=== PATIENT | male | born 1960 | race Caucasian/White ===

== ENCOUNTER 2022-01-23 19:32 | Outpatient (CLI) | payer BC, SELFPAY ==
--- OUTSIDE RECORDS SUMMARY | 2022-01-23 19:35 | XMS_ITS | Encounter Summary ---
:1960 Author Organization [facility] Address [address] [place] [address] Care Team Providers Name Role Phone Elsewhere, Pcp Primary Care Provider Unavailable Encounter Details Date Type Department Care Team Description 12/31/2021 Clinical Communication Department of [place], Otorhinolaryngology in [address] [phone] Social History Tobacco Use Types Packs/Day Years Used Date Smoking Tobacco: Former Smokeless Tobacco: Never Alcohol Use Standard Drinks/Week Comments Yes 0 (1 standard drink = 0.6 oz pure alcoho l) Occasional Alcohol Habits Answer Date Recorded How often do you have a drink containing alcohol? Patient re fused 12/20/2021 How many drinks containing alcohol do you have on a 1 or 2 06/24/2021 typical day when you are drinking? How often do you have six or more drinks on one Never 06/24/2021 occasion? Comment: Occasional 10/03/2021 Social Isolation Answer Date Recorded In a typical week, how many times do you More than three shay es a week 12/20/2021 talk on the phone with family, friends, or neighbors? How often do you get together with friends Twice a week 12/20/2021 or relatives? How often do you attend religious or Patient refused 2021 taoism services? Do you belong to any clubs or No 12/20/2021 organizations such as religious groups, unions, fraternal or athletic groups, or school groups? How often do you attend meetings of the Patient refused 12/20/2021 clubs or organizations you belong to? Are you now , , , 12/20/2021 , never or living with a partner? Physical Activity Answer Date Recorded On average, how many days per week do you engage in moderate to 4 days 12/20/2021 strenuous exercise (like walking fast, running, jogging, dancing, swimming, biking, or other activities that cause a light or heavy sweat)? On average, how many minutes do you engage in exercise at th is 40 min 12/20/2021 level? Stress Answer Date Recorded Do you feel stress - tense, restless, nervous, or To some ex tent 12/20/2021 anxious, or unable to sleep at night because your mind is troubled all the time - these days? Intimate Partner Violence Answer Date Recorded Within the last year, have you been afraid of your partner o r No 12/20/2021 ex-partner? Within the last year, have you been humiliated or emotionall y No 12/20/2021 abused in other ways by your partner or ex-partner? Within the last year, have you been kicked, hit, slapped, or No 12/20/2021 otherwise physically hurt by your partner or ex-partner? Within the last year, have you been raped or forced to have any No 12/20/2021 kind of sexual activity by your partner or ex-partner? Food Insecurity Answer Date Recorded Within the past 12 months, you worried that your food would Never true 12/20/2021 run out before you got money to buy more. Within the past 12 months, the food you bought just didn't N ever true 12/20/2021 last and you didn't have money to get more. Transportation Needs Answer Date Recorded In the past 12 months, has lack of transportation kept you f rom No 12/20/2021 medical appointments or from getting medications? In the past 12 months, has lack of transportation kept you f rom No 12/20/2021 meetings, work, or getting things needed for daily living? Housing Stability Answer Date Recorded In the last 12 months, was there a time when you were not ab le No 12/20/2021 to pay the mortgage or rent on time? In the last 12 months, how many places have you lived? 1 12/20/2021 In the last 12 months, was there a time when you did not hav e a No 12/20/[address] to sleep or slept in a detention (including now)? Education Answer Date Recorded What is the highest level of school you have completed or 12 th grade 04/11/2021 the highest degree you have received? 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 Whittaker's ear they are not able to make the custom rechargable aid in the ITC format. They can do either half shell or full shell. I calledMr. Whittaker to see what he would prefer. He indicated rather than going to a battery aid, he would like to stay with the rechargeable and was fine with doing the half shell size. I called [employer] back and informed them of Mr. Whittaker's decision. documented in this encounter Plan of Treatment Upcoming Encounters Date Type Specialty Care Team Description 01/24/2022 Diagnostic Otorhinolaryngology Lara Snell Au.D. [address] [place], [place] [phone] 01/29/2022 Office Visit Orthopedic Surgery Laurie Dumont APRN , C.N.P., D.N.P. [address] [place], [place] [phone] (Wo rk) documented as of this encounter Visit Diagnoses Diagnosis Presence Of External Hearing Aid - Prima ry documented in this encounter Care Teams State [employer] Agent Team Member Relationship Specialty Start Date End Date Elsewhere, Pcp PCP - General 06/07/19 documented as of this encounter
--- OUTSIDE RECORDS SUMMARY | 2022-01-23 19:35 | XMS_ITS | Encounter Summary ---
:1960 Author Organization [facility] Address [address] [place] [address] Care Team Providers Name Role Phone Elsewhere, Pcp Primary Care Provider Unavailable Reason for Visit Physical Therapy (Routine) - Authorized Specialty Diagnoses / Procedures Referred By Contact Refer red To Contact Diagnoses Primary Osteoarthritis Knee Left Dk Mijares M.D. [facility] Procedures PT Ongoing treatment [address] [place] [address] Referral ID Status Reason Start Date Expiration Date Visits V isits Requested Authorized [id number] Authorized 08/10/2021 05/18/2022 40 40 Encounter Details Date Type Department Care Team Description 10/09/2021 Clinical Support Department of Dk Mijares M.D. [address] [place] [phone] Primary Rehabilitation Maria Luisa Chaparro, P.T. Osteoarthritis Knee Services [place] [address] [place] [phone] Social History Tobacco Use Types Packs/Day Years [...] or relatives? How often do you attend restorationism or Patient refused 2021 nondenominational services? Do you belong to any clubs or No 12/20/2021 organizations such as restorationism groups, unions, [employer] or athletic groups, or school groups? How [...] place to sleep or slept in a senior living (including now)? Education Answer Date Recorded What is the highest level of school you have completed or 12 th grade 04/11/2021 the highest degree you have received? 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 - 10/09/2021 12:45 PM CDT Physical Therapy Outpatient Treatment Note SUBJECTIVE Patient's Name: Hussein Whittaker Referring Provider: Dk Mijares M.D. Visit Diagnosis: 1. Primary Osteoarthritis Knee Left Payor: [employer]URANCE / Plan: [employer]URANCE / Product Type: Indemnity / PT Next Certification Date: 08/08/2021 [facility] Visit Count: 3 Patient comments: Pt reports his knee is sore after last session, but ice continues to feel good andhe continues with use of the CPM machine. His daughter assists with ROM exercises at home. Contact monitoring: PPE used during therapy: Therapist was wearing the following PPE throughout entire session: surgicalmask and eye protection Patient was wearing a mask during therapy session: yes OBJECTIVE Pain: L knee pain, does not provide numeric value Ambulation: Pt ambulates into therapy dept with use of 4-point cane. He is able to ambulate throughout therapy dept without AD independently but does demonstrate increased antalgic gait with decreased L knee flexion and stance time. ? Range of Motion:?Left ?Right Knee Flexion/Extension 0-140 PROM:??4-117 deg PROM:??NT *Knee flexion measured in supine with PT assist and significant overpressure. TREATMENT Treatment today consisted of: Manual Therapy: -patellar mobs, grade III for mobility in all 4 directions, most focus on superior-inferior directions -STM to L quad in supine for muscle relaxation -Quad MET's off EOB with 5 sec holds/rests, 2x5 repetitions Therapeutic Exercise: -sci-fit bike, L1 x6 minutes, up to seat 13 for knee mobility -stationary bike, seat 8, x5 minutes, able to make full revolutions both directions, unable to make forward revolution at seat 7 -standing knee flexion stretch on second step, x20 reptitions -DL press, 30# with 2 sec holds at end-range flexion, deep seat position for end-range, 3x10 repetitions -supine heel slides with PT assist and overpressure, 2x10 repetitions Home Exercise Program/Education:Continue TKA pathway and CPM use. Patient reports good HEP compliance. Assessment Clinical Impression: Pt tolerated session well but is sore in knee with end- range overpressure. He was able to get to 117 deg of knee flexion with significant overpressure but this was painful. He has quad tightness and encouraged pt to trial heat on quad only and to avoid heat on knee joint and to trial rolling pin on quad for muscle relaxation. Also encouraged pt to continue with CPM and knee ROM but to allow for rest in terms of end-range motion to help minimize increase in knee swelling and irritation. Pt will continue to benefit from PT services in order for improved functional mobility. Rehab Potential: Good Comorbid Conditions: Arthritis Personal Factors: Needs assistive device Equipment Recommended - PT: Single-point cane Functional Goals and Timeframes: PT Goal #1: Patient will demonstrate knee range of motion 0-120 degrees left lower extremity. PT Goal #1 Date: 12/04/2021 PT Goal #1 Status: Progressing PT Goal #2: Pt will report a score of 70/100 on the FOTO outcome measure in order to demonstrate improved functional mobility. PT Goal #2 Date: 12/04/2021 PT Goal #2 Status: Progressing PT Goal #3: Patient will ambulate safely independently without the use an assistive device with a nonantalgic gait pattern. PT Goal #3 Date: 12/04/2021 PT Goal #3 Status: Progressing PT Goal #4: Pt will demonstrate independence and compliance with HEP in order for progression of functional strength and mobility. PT Goal #4 Date: 12/04/2021 PT Goal #4 Status: Progressing Plan Physical Therapy Attestation Statement: Patient agrees with the plan of care and goals. Plan: Continue with current plan Number of Outpatient PT Visits: 10 PT Outpatient Duration (days): 60 days PT Frequency: 5 times per week Plan for next session: progress knee ROM, strength, quad flexibility Treatment/Interventions: Therapeutic exercise, Therapeutic functional activity, Gait training, Neuromuscular re-education, Manual therapy Time Spent with Patient Therapeutic Interventions Manual Therapy (min): 8 min Therapeutic Exercise (min): 30 min Time Tracking Total Timed Units (min): 38 min Total Treatment Time (min): 38 min documented in this encounter Plan of Treatment Upcoming Encounters Date Type Specialty Care Team Description 01/24/2022 Diagnostic Otorhinolaryngology Lara Snell Au.D. [address] [place], [place] [phone] 01/29/2022 Office Visit Orthopedic Surgery Laurie Dumont APRN , C.N.P., D.N.P. [address] [place], [place] [phone] (Wo rk) documented as of this encounter Visit Diagnoses Diagnosis Primary Osteoarthritis Knee Left documented in this encounter Care Teams Assistant Accounting Manager Relationship Specialty Start Date End Date Elsewhere, Pcp PCP - General 06/07/19 documented as of this encounter
--- OUTSIDE RECORDS SUMMARY | 2022-01-23 19:35 | XMS_ITS | Encounter Summary ---
:1960 Author Organization [facility] Address [address] [place] [address] Care Team Providers Name Role Phone Elsewhere, Pcp Primary Care Provider Unavailable Reason for Visit Physical Therapy (Routine) - Authorized Specialty Diagnoses / Procedures Referred By Contact Refer red To Contact Diagnoses Primary Osteoarthritis Knee Left Dk Mijares M.D. [facility] Procedures PT Ongoing treatment [address] [place] [phone] Referral ID Status Reason Start Date Expiration Date Visits V isits Requested Authorized [id number] Authorized 08/10/2021 05/18/2022 40 40 Encounter Details Date Type Department Care Team Description 10/11/2021 Clinical Support Department of Dk Mijares M.D. [address] [place] [phone] Primary Rehabilitation Maria Luisa Chaparro, P.T. Osteoarthritis Knee Services [place] [address] [place] [phone] Social History Tobacco Use Types Packs/Day Years [...] or relatives? How often do you attend presybeterian or Patient refused 2021 mormonism services? Do you belong to any clubs or No 12/20/2021 organizations such as presybeterian groups, unions, fraAuramist or athletic groups, or school groups? How [...] place to sleep or slept in a long term (including now)? Education Answer Date Recorded What is the highest level of school you have completed or 12 th grade 04/11/2021 the highest degree you have received? 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 - 10/11/2021 12:30 PM CDT Physical Therapy Outpatient Treatment Note SUBJECTIVE Patient's Name: Hussein Whittaker Referring Provider: Dk Mijares M.D. Visit Diagnosis: 1. Primary Osteoarthritis Knee Left Payor: [employer]URANCE / Plan: [employer]URANCE / Product Type: Indemnity / PT Next Certification Date: 08/08/2021 [facility] Visit Count: 5 Patient comments: Pt reports his knee is feeling better today. He continues to use the CPM machine about 5 hours per day and is maxing out the range. He sleeps with ice on his knee and wakes up feelingminimal knee pain. Contact monitoring: PPE used during therapy: Therapist was wearing the following PPE throughout entire session: surgicalmask and eye protection Patient was wearing a mask during therapy session: yes OBJECTIVE Pain: L knee pain at end-range, does not provide numeric value Range of Motion:?Left ?Right Knee Flexion/Extension 0-140 PROM:??4-118??deg PROM:??NT *Knee flexion measured in supine with PT assist??and??overpressure. TREATMENT Treatment today consisted of: Manual Therapy: -STM to L quad with intermittent TPR -patellar mobs in all four directions, grade III for mobility, limited by swelling present but improving Therapeutic Exercise: -sci-fit bike, L2 up to seat 14, x7 minutes -stationary bike, x5 minutes, seat 8, able to make full revolutions instantly -standing knee flexion stretch on second step x20 repetitions -DL press, 30#, deeper seat position for end-range flexion, 3x12 repetitions with 2 sec holds at end-range flexion -supine heel slides with slider and PT overpressure, 2x10 repetitions -SLR with contralateral LE extended, 2x10 repetitions, increased knee flexion at elevated position due to hamstring tightness Home Exercise Program/Education: Continue TKA pathway and CPM machine use. Encourgaed focus on quad and hamstring stretching Patient reports good HEP compliance. Assessment Clinical Impression: Pt tolerated session well. He is demonstrating progression of knee ROM and is having less pain. He continues to have significant swelling but this appears to be improving slowly. He is leaving for an extended vacation tomorrow and encouraged him to continue knee ROM exercises, ambulation and use of CPM machine as needed over the weekend. He will continue to benefit from PT services [...] per week Plan for next session: progress ROM, quad strengthening Treatment/Interventions: Therapeutic exercise, Therapeutic functional activity, Gait training, Neuromuscular re-education, Manual therapy Time Spent with Patient Therapeutic Interventions Manual Therapy (min): 5 min Therapeutic Exercise (min): 31 min Time Tracking Total Timed Units (min): 36 min Total Treatment Time (min): 36 min documented in this encounter Plan of Treatment Upcoming Encounters Date Type Specialty Care Team Description 01/24/2022 Diagnostic Otorhinolaryngology Lara Snell Au.D. [address] [place], [place] [phone] 01/29/2022 Office Visit Orthopedic Surgery Laurie Dumont APRN , C.N.P., D.N.P. [address] [place], [place] [phone] (Wo rk) documented as of this encounter Visit Diagnoses Diagnosis Primary Osteoarthritis Knee Left documented in this encounter Care Teams Plug Saw Operator Relationship Specialty Start Date End Date Elsewhere, Pcp PCP - General 06/07/19 documented as of this encounter
--- OUTSIDE RECORDS SUMMARY | 2022-01-23 19:35 | XMS_ITS | Encounter Summary ---
:1960 Author Organization [facility] Address [address] [place] [address] Care Team Providers Name Role Phone Elsewhere, Pcp Primary Care Provider Unavailable Reason for Visit Reason Comments [employer]er's License Exam [employer] Equipment Encounter Details Date Type Department Care Team Description 01/03/2022 Office Visit Department of Sandra Sanches, [place] [employer]er Occupational Medicine MWillie Medical Exam (Primary in [place], [facility] ta [address] [facility] Dx) [address] [place], [place] [phone] Social History Tobacco Use Types Packs/Day Years [...] or relatives? How often do you attend roman catholic or Patient refused 2021 hinduism services? Do you belong to any clubs or No 12/20/2021 organizations such as roman catholic groups, unions, fraternal or athletic groups, or [...] to sleep or slept in a senior care (including now)? Education Answer Date Recorded What is the highest level of school you have completed or 12 th grade 04/11/2021 the highest degree you have received? 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 [address] [facility], [place] [phone] 01/29/2022 Office Visit Orthopedic Surgery Laurie Dumont, ANA , C.N.P., D.N.P. [address] [facility], [place] [phone] (Wo rk) documented as of this encounter Procedures Procedure Name Priority Date/Time Associated Diagnosis Comme nts URINALYSIS, Routine 01/03/2022 10:07 AM Results for this DIPSTICK CDT procedure are i n the results section. documented in this encounter Results (ABNORMAL) Urinalysis, Dipstick (01/03/2022 10:07 AM CDT) P athologist Signature Source VOID 01/03/2022 RWOM 10:07 AM CDT Clarity Clear Clear 01/03/2022 RWOM 10:07 AM CDT Color Yellow 01/03/2022 RWOM 10:07 AM CDT Comment: ----REFERENCE VALUE---- Colorless Yellow Riya Blood Small (A) Negative 01/03/2022 10:07 AM CDT RWOM Nitrite Negative Negative 01/03/2022 10:07 AM CDT RWOM Leukocyte Esterase Negative Negative 01/03/2022 10:07 AM C DT RWOM Protein Negative mg/dL 01/03/2022 10:07 AM CDT RWOM Comment: ----REFERENCE VALUE---- Negative Trace Glucose Negative Negative mg/dL 01/03/2022 10:07 AM CDT R WOM Ketones, QI(U) Negative Negative mg/dL 01/03/2022 10:07 AM CDT RWOM Bilirubin Negative Negative 01/03/2022 10:07 AM CDT RWOM pH 5.5 5.0 - 8.0 01/03/2022 10:07 AM CDT RWOM Specific Ashby 1.020 1.001 - 1.035 01/03/2022 10:07 AM CDT RWOM Urobilinogen 0.2 0.2 - 1.0 mg/dL 01/03/2022 10:07 AM C DT RWOM Specimen Anatomical Collection Method Collection Time Receive d Time (Source) Location / / Volume Laterality Urine 01/03/2022 10:07 01/03/2022 AM CDT 10:14 AM CDT Generic [facility]als LAB URINE ORDERABLES Performing Organization Address City/State/ZIP Code Phon e Number [facility] [address] [place] [address] [facility] [place] [address] Occupational Medicine [address] documented in this encounter Visit Diagnoses Diagnosis [employer] [employer] Medical Exam - Primary documented in this encounter Care Teams Teacher Assistant Relationship Specialty Start Date End Date Elsewhere, Pcp PCP - General 06/07/19 documented as of this encounter
--- OUTSIDE RECORDS SUMMARY | 2022-01-23 19:35 | XMS_ITS | Encounter Summary ---
:1960 Author Organization [facility] Address [address] [place] [address] Care Team Providers Name Role Phone Elsewhere, Pcp Primary Care Provider Unavailable Reason for Visit Physical Therapy (Routine) - Authorized Specialty Diagnoses / Procedures Referred By Contact Refer red To Contact Diagnoses Primary Osteoarthritis Knee Left Dk Mijares M.D. [facility] Procedures PT Ongoing treatment [address] [place] [phone] Referral ID Status Reason Start Date Expiration Date Visits V isits Requested Authorized [id number] Authorized 08/10/2021 05/18/2022 40 40 Encounter Details Date Type Department Care Team Description 11/01/2021 Clinical Support Department of Dk Mijares M.D. [address] [place] [phone] Primary Rehabilitation Maria Luisa Chaparro, P.T. Osteoarthritis Knee Services in [place] [address] [place] [phone] Social History Tobacco Use Types Packs/Day Years [...] or relatives? How often do you attend restorationist or Patient refused 2021 orthodoxy services? Do you belong to any clubs or No 12/20/2021 organizations such as restorationist groups, unions, framSchool or athletic groups, or school groups? 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 - 11/01/2021 10:00 AM CDT Physical Therapy Outpatient Treatment Note SUBJECTIVE Patient's Name: Hussein Whittaker Referring Provider: Dk Mijares M.D. Visit Diagnosis: 1. Primary Osteoarthritis Knee Left Payor: [employer]ANCE / Plan: [employer]URANCE / Product Type: Indemnity / PT Next Certification Date: 08/08/2021 [facility] Visit Count: 11 Patient comments: Pt reports some soreness after PT session but otherwise his knee is doing well. Contact monitoring: PPE used during therapy: Therapist was wearing the following PPE throughout entire session: surgicalmask and eye protection Patient was wearing a mask during therapy session: yes OBJECTIVE Pain: L anterior knee soreness with end-range Range of Motion:?Left ?Right Knee Flexion/Extension 0-140 PROM:??2-124??deg PROM:??NT *Knee flexion measured in supine with PT assist??and??moderate??overpressure. ?? Observation: knee compression sleeve donned on L knee.Pt ambulates into therapy gym without SPC independently with minimal antalgic gait. TREATMENT Treatment today consisted of: Therapeutic Exercise: sci-fit bike, seat 13, L1 x5 minutes -stationary bike, seat 4 x6 minutes, full revolutions both directions -standing knee flexion stretch x20 repetitions on second step -stationary lunge into fwd step up on 8 step, 2x10 repetitions bilateral, UE support for lunge but not for step up -isometric wall sits for 12 sec holds x4 repetitions, performed at about 45 deg knee flexion, difficulty ascending due to quad weakness -supine heel slides with slider and PT assist, moderate overpressure, 2x10 repetitions Home Exercise Program/Education: Continue TKA pathway. Encouraged focus on quad stretching Patient reports good HEP compliance. Assessment Clinical Impression: Pt tolerated session well. Pt is maintaining ROM >120 deg with PT assist. Hedemonstrates poor strength and endurance in the quad and will continue to benefit from PT services for improved functional mobility and strength in order to return to work. Rehab Potential: Good Comorbid Conditions: Arthritis Personal Factors: Needs assistive device Functional Goals and Timeframes: PT Goal #1: Patient will demonstrate knee range of motion 0-120 degrees left lower extremity. PT Goal #1 Date: 12/04/2021 PT Goal #1 Status: Progressing (119 deg iwth overpressure) PT Goal #2: Pt will report a score of 70/100 on the FOTO outcome measure in order to demonstrate improved functional mobility. PT Goal #2 Date: 12/04/2021 PT Goal #2 Status: Progressing PT Goal #3: Patient will ambulate safely independently without the use an assistive device with a nonantalgic gait pattern. PT Goal #3 Date: 12/04/2021 PT Goal #3 Status: Progressing (Pt ambulates independently but does have mild antalgic gait that worsens with activity.) PT Goal #4: Pt will demonstrate independence and compliance with HEP in order for progression of functional strength and mobility. PT Goal #4 Date: 12/04/2021 PT Goal #4 Status: Progressing Plan Physical Therapy Attestation Statement: Patient agrees with the plan of care and goals. Plan: Continue with current plan PT Frequency: 2 times per week Plan for next session: quad strength, knee ROM, assess AROM Treatment/Interventions: Therapeutic exercise, Therapeutic functional activity, Gait training, Neuromuscular re-education, Manual therapy Time Spent with Patient Therapeutic Interventions Therapeutic Exercise (min): 32 min Time Tracking Total Timed Units (min): 32 min Total Treatment Time (min): 32 min documented in this encounter Plan of Treatment Upcoming Encounters Date Type Specialty Care Team Description 01/24/2022 Diagnostic Otorhinolaryngology Lara Snell Au.D. [address] [place], [place] [phone] 01/29/2022 Office Visit Orthopedic Surgery Laurie Dumont APRN , C.N.P., D.N.P. [address] [place], [place] [phone] (Wo rk) documented as of this encounter Visit Diagnoses Diagnosis Primary Osteoarthritis Knee Left documented in this encounter Care Teams Cigarette Machine Filler Relationship Specialty Start Date End Date Elsewhere, Pcp PCP - General 06/07/19 documented as of this encounter
--- OUTSIDE RECORDS SUMMARY | 2022-01-23 19:35 | XMS_ITS | Encounter Summary ---
:1960 Author Organization [facility] Address [address] [place] [address] Care Team Providers Name Role Phone Elsewhere, Pcp Primary Care Provider Unavailable Reason for Visit Reason Comments Follow-up Procedure Swelling Pain Outpatient (Routine) - Closed Specialty Diagnoses / Procedures Referred By Contact Refer red To Contact Orthopedic Surgery Laurie Dumont APRN, GURVINDERS [facility] C.N.P., D.N.P. [address] [place] [phone] Referral ID Status Reason Start Date Expiration Date Visits Requ ested Visits Authorized [id number] Closed 11/20/2021 11/20/2022 1 1 Encounter Details Date Type Department Care Team Description 12/11/2021 Office Visit Department of Dk Mijares M.D. [address] [place] [phone] Arthroplasty Total Orthopedic Surgery in [place] Hunter APRN, C.N.P., D.N.P. [address] [place] [address] Knee Replacement [place] Garcia, Status Post [facility] (Primary Dx) [id number] [place] [address] [place] [phone] Social History Tobacco Use Types Packs/Day Years Used Date Smoking Tobacco: Former Smokeless Tobacco: Never Tobacco Cessation: Counseling Given: Not Answered Alcohol Use Standard Drinks/Week Comments Yes 0 [...] or relatives? How often do you attend jew or Patient refused 2021 zoroastrian services? Do you belong to any clubs or No 12/20/2021 organizations such as jew groups, unions, fraternal or athletic groups, or [...] place to sleep or slept in a long-term (including now)? Education Answer Date Recorded What is the highest level of school you have completed or 12 th grade 04/11/2021 the highest degree you have received? 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 - 12/11/2021 3:15 PM CDT Hussein is a pleasant 61-year-old who had a left total knee arthroplasty on 08/06/2021 and a subsequent manipulation on 10/03/2021. He is here today for follow-up. He continues to work on his activity as well as stamina. He does note some significant swelling yet. And has plans to return to work in December. Physical exam-left knee with moderate effusion noted. Knee is stable to valgus and varus. He is fullextension and flexes to 118??. Impression and plan-ray is a pleasant 61-year-old who had total knee arthroplasty continues to have some pain with effusion noted. I do not suspect infection but will rule out and obtain a CRP and sed rate for a baseline. Also will have him continue with his diclofenac as well as working with therapy.Wear a knee brace for mild compression as needed. We discussed prophylactic antibiotic use for the future. And we discussed his job and the limitations he may return to work with. Please see note for those details. He agrees with this plan and his questions were answered documented in this encounter Plan of Treatment Upcoming Encounters Date Type Specialty Care Team Description 01/24/2022 Diagnostic Otorhinolaryngology Lara Snell Au.D. [address] [place], [place] [phone] 01/29/2022 Office Visit Orthopedic Surgery Laurie Dumont APRN , C.N.P., D.N.P. [address] [place], [place] [phone] (Wo rk) documented as of this encounter Procedures Procedure Name Priority Date/Time Associated Diagnosis Comme nts SEDIMENTATION RATE, B Routine 12/11/2021 4:13 Arthroplasty Tot al Results for this PM CDT Knee Replacement procedure a re in Status Post Left the results section. C-REACTIVE PROTEIN Routine 12/11/2021 4:13 Arthroplasty Total Results for this (CRP), S/P PM CDT Knee Replacement procedure a re in Status Post Left the results section. documented in this encounter Results Sedimentation Rate (12/11/2021 4:13 PM CDT) Analysis Performed At Patho logist Time Signature Sedimentation 14 0 - 22 12/11/2021 [facility] Rate, B mm/1 h 7:48 PM CDT Specimen Anatomical Collection Method Collection Time Receive d Time (Source) Location / / Volume Laterality Blood (Blood, 12/11/2021 4:13 PM 12/12/19 7:15 Venous) CDT PM CDT Nieves Hunter APRN, C.N.P., D.N.P. LAB BLOOD ADD-ON Performing Organization Address City/State/ZIP Code Phon e Number [facility]- [address] [place], [place] [address] [address] [facility] [place] [address] System in [place] [address] CRP (C-Reactive Protein) (12/11/2021 4:13 PM CDT) P athologist Signature C-Reactive <3.0 <=8.0 mg/L 12/11/2021 CN[facility] Protein (CRP), 4:39 PM CDT P Specimen Anatomical Collection Method Collection Time Receive d Time (Source) Location / / Volume Laterality Blood (Blood, 12/11/2021 4:13 PM 12/12/19 4:14 Venous) CDT PM CDT Rosaura Mello APRN.N.P., D.N.P. LAB BLOOD ADD-ON Performing Organization Address City/[facility]/ZIP Code Phon e Number [facility]- [address] [place] [address] [place] [address] [place] [address] System in [address] documented in this encounter Visit Diagnoses Diagnosis Arthroplasty Total Knee Replacement Stat us Post Left - Primary documented in this encounter Care Teams Public Health Outreach Worker Relationship Specialty Start Date End Date Elsewhere, Pcp PCP - General 06/07/19 documented as of this encounter
--- OUTSIDE RECORDS SUMMARY | 2022-01-23 19:35 | XMS_ITS | Encounter Summary ---
:[address] [facility] Address [address] [place] [address] Care Team Providers Name Role Phone Elsewhere, Pcp Primary Care Provider Unavailable Reason for Visit Physical Therapy (Routine) - Authorized Specialty Diagnoses / Procedures Referred By Contact Refer red To Contact Diagnoses Primary Osteoarthritis Knee Left Dk Mijares M.D. [facility] Procedures PT Ongoing treatment [address] [place] [phone] Referral ID Status Reason Start Date Expiration Date Visits V isits Requested Authorized [id number] Authorized 08/10/2021 05/18/2022 40 40 Encounter Details Date Type Department Care Team Description 10/22/2021 Clinical Support Department of Dk Mijares M.D. [address] [place] [phone] Primary Rehabilitation Maria Luisa Chaparro, P.T. Osteoarthritis Knee Services [place] [address] [place] [phone] Social History Tobacco Use Types Packs/Day Years [...] attend roman catholic or Patient refused 2021 voodoo services? Do you belong to any clubs or No 12/20/2021 organizations such as roman catholic groups, unions, fraSelf-A-r-T or athletic groups, or school groups? How [...] place to sleep or slept in a longterm (including now)? Education Answer Date Recorded What is the highest level of school you have completed or 12 th grade 04/11/2021 the highest degree you have received? 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 - 10/22/2021 9:45 AM CDT Physical Therapy Outpatient Treatment Note SUBJECTIVE Patient's Name: Hussein Whittaker Referring Provider: Dk Mijares M.D. Visit Diagnosis: 1. Primary Osteoarthritis Knee Left Payor: [employer]UR[employer] / Plan: [employer]UR[employer] / Product Type: Indemnity / PT Next Certification Date: 08/08/2021 [facility] Visit Count: 8 Patient comments: Pt reports his knee was more sore over the weekend. He continues to use the CPM machine and maxes this out without any stretching sensation. He feels his knee is more swollen and warmin the past few days. He is frustrated with ongoing pain he is managing. He trialed heat on proximal hamstring along with ice on knee and this did seem to help when getting up and moving around. Contact monitoring: PPE used during therapy: Therapist was wearing the following PPE throughout entire session: surgicalmask and eye protection Patient was wearing a mask during therapy session: yes OBJECTIVE Pain: L knee pain, varies in location (anterior versus posterior, lateral vs medial), does not provide numeric value Observation/Palpation: Pt has soreness and tightness in lateral and medial hamstring upon palpation.No pain in middle of posterior knee. L knee is slightly warmer than R knee but no concern for infection. No redness noted. Swelling is present but does not seem to have changed. ? Range of Motion:?Left ?Right Knee Flexion/Extension 0-140 PROM:??3-119??deg PROM:??NT *Knee flexion measured in supine with PT assist??and moderate-significant??overpressure. TREATMENT Treatment today consisted of: Manual Therapy: -patellar mobs in all 4 directions for mobility, 2x10 repetitions -AP tibiofemoral mob, grade III for mobility, 2x20 repetitions with knee at 35 deg flexion Therapeutic Exercise: -sci-fit bike, L3, up to seat 12 x5 minutes -stationary bike, x7 minutes, seat 7 but able to progress to seat 6 while maintaining ability to perform full revolutions in both directions -DL press, 40#, deep seat position for end-range flexion, 3x10 repetitions with 2 sec holds in flexion -standing deep knee squats with UE support on countertop sink to pull self up, x12 repetitions -supine heel slides with slider and aggressive overpressure, 3x10 repetitions Home Exercise Program/Education: Continue TKA pathway and CPM machine Patient reports good HEP compliance. Assessment Clinical Impression: Pt tolerated session well. Despite increased soreness, he was able to maintain 119 deg of knee flexion with moderate-significant overpressure applied in supine. Pt had fatigue in bilateral quads but is showing progression of functional mobility. He was able to tolerate lower set height on stationary bike today and able to touch resting position of leg press more consistently, indicating improved knee flexion. Pt is continuing to attempt managing pain in L knee but is having difficulty. He has surgical follow up tomorrow. He will continue to benefit from PT services in order forimproved functional mobility. Rehab Potential: Good Comorbid Conditions: [...] Plan: Continue with current plan PT Frequency: 3 times per week Plan for next session: progress ROM, quad strength Treatment/Interventions: Therapeutic exercise, Therapeutic functional activity, Gait training, Neuromuscular re-education, Manual therapy Time Spent with Patient Therapeutic Interventions Manual Therapy (min): 5 min Therapeutic Exercise (min): 30 min Time Tracking Total Timed Units (min): 35 min Total Treatment Time (min): 35 min documented in this encounter Plan of Treatment Upcoming Encounters Date Type Specialty Care Team Description 01/24/2022 Diagnostic Otorhinolaryngology Lara Snell Au.D. [address] [facility], [place] [phone] 01/29/2022 Office Visit Orthopedic Surgery Laurie Dumont APRN , C.N.P., D.N.P. [address] [facility], [place] [phone] (Wo rk) documented as of this encounter Visit Diagnoses Diagnosis Primary Osteoarthritis Knee Left documented in this encounter Care Teams Santa'S Helper Relationship Specialty Start Date End Date Elsewhere, Pcp PCP - General 06/07/19 documented as of this encounter
--- OUTSIDE RECORDS SUMMARY | 2022-01-23 19:35 | XMS_ITS | Encounter Summary ---
:1960 Author Organization [facility] Address [address] [place] [address] Care Team Providers Name Role Phone Elsewhere, Pcp Primary Care Provider Unavailable Reason for Referral Outpatient (Routine) - Closed Specialty Diagnoses / Procedures Referred By Contact Refer red To Contact Orthopedic Surgery Laurie Dumont APRN, [facility] C.N.P., D.N.P. [address] [place] [address] Referral ID Status Reason Start Date Expiration Date Visits Requ ested Visits Authorized [id number] Closed 11/20/2021 11/20/2022 1 1 Reason for Visit Reason Comments Post-op Motion is improving slowly Follow-up Motion is improving slowly Encounter Details Date Type Department Care Team Description 11/20/2021 Office Visit Department of Nieves Hunter APRN, C.N.P., D.N.P. [address] [place] [address] Arthroplasty Total Knee Replacement Stat us Post Left (Primary Dx); Orthopedic Surgery in Laurie Dumont APRN, C.N.P., D.N.P. [address] [place] [address] Follow Up Examination Postoperative Visi t [address] [phone] Social History Tobacco Use Types Packs/Day Years [...] or relatives? How often do you attend scientology or Patient refused 2021 pentecostalism services? Do you belong to any clubs or No 12/20/2021 organizations such as scientology groups, unions, fraternal or athletic groups, or [...] place to sleep or slept in a snf (including now)? Education Answer Date Recorded What is the highest level of school you have completed or 12 th grade 04/11/2021 the highest degree you have received? 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 - 11/20/2021 10:00 AM CDT SUBJECTIVE CHIEF COMPLAINT / REASON FOR VISIT Hussein Whittaker is a 61 y.o. male who presents for evaluation of Post-op and Follow-up of the Left Knee (Motion is improving slowly). HISTORY OF PRESENT ILLNESS Hussein is a pleasant 61 y.o. male who is about 6 weeks status post left knee manipulation under anesthesia following total knee arthroplasty on 08/06/2021. He continues home exercises but has not seenformal physical therapy in a few weeks. He reports continued pain and stiffness throughout the day. He also reports right sciatic type pain which is the worst in the morning as he is getting out of bed. Symptoms significantly improved/resolve after about 30-40 minutes. He has been using conservative treatment options for this but is wondering if there is anything else to do. He is otherwise doing relatively well after surgery. OBJECTIVE PHYSICAL EXAMINATION General: Patient is in no distress. Capable of full communication without difficulty. Patient is polite and cooperative. Extremities: Left knee surgical incision is well healed without any obvious signs of infection. Leftknee flexion is 0-120 degrees, and stable to varus/valgus stress. A little pressure was needed to obtain full motion. No neurovascular compromise distally. Neuro: Alert and oriented x3. DIAGNOSTICS ASSESSMENT / PLAN #1 Arthroplasty Total Knee Replacement Status Post Left #2 Follow Up Examination Postoperative Visit Man is a very pleasant 61-year-old male who is 6 weeks status post left knee manipulation under anesthesia following total knee arthroplasty on 08/06/2021. At this point in time, my suggestion is that he continue working with physical therapy until the graduate him from their formal program, keeping up with home exercises. Since his sciatic symptoms resolve a short time after getting out of bed, as well as intermittent, I asked him to reach out to physical therapy to see if there are any additional stretching exercises he can utilize for his low back. He will continue to work on his gait as he does continue to have a slight limp as well. He will transition back to work in the next couple weeks,modified duties at 1st. We will plan to see him back she in another month, he should be working about 6 hours per day at that time. Will revise any work restrictions as needed. He is in agreement with this plan, all questions answered. documented in this encounter Plan of Treatment Upcoming Encounters Date Type Specialty Care Team Description 01/24/2022 Diagnostic Otorhinolaryngology Lara Snell Au.D. [address] [place], [place] [phone] 01/29/2022 Office Visit Orthopedic Surgery Laurie Dumont, ANA , C.N.P., D.N.P. [address] [facility] [place] [phone] (Wo rk) Scheduled Referrals Name Type Priority Associated Order Schedule Diagnoses Orthopedic Surgery Outpatient Referral Routine Ex pected: Post Op (clinic) 12/25/2021, Expires: 02/20/2023 documented as of this encounter Visit Diagnoses Diagnosis Arthroplasty Total Knee Replacement Stat us Post Left - Primary Follow Up Examination Postoperative Visi t documented in this encounter Care Teams Kindergarten Assistant Relationship Specialty Start Date End Date Elsewhere, Pcp PCP - General 06/07/19 documented as of this encounter
--- OUTSIDE RECORDS SUMMARY | 2022-01-23 19:35 | XMS_ITS | Encounter Summary ---
:1960 Author Organization [facility] Address [address] [place] [address] Care Team Providers Name Role Phone Elsewhere, Pcp Primary Care Provider Unavailable Reason for Visit Physical Therapy (Routine) - Authorized Specialty Diagnoses / Procedures Referred By Contact Refer red To Contact Diagnoses Primary Osteoarthritis Knee Left Dk Mijares M.D. [facility] Procedures PT Ongoing treatment [address] [place] [phone] Referral ID Status Reason Start Date Expiration Date Visits V isits Requested Authorized [id number] Authorized 08/10/2021 05/18/2022 40 40 Encounter Details Date Type Department Care Team Description 10/25/2021 Clinical Support Department of Dk Mijares M.D. [address] [place] [phone] Primary Rehabilitation Maria Luisa Chaparro, P.T. Osteoarthritis Knee Services [place] [address] [place] [phone] Social History Tobacco Use Types Packs/Day Years [...] or relatives? How often do you attend orthodoxy or Patient refused 2021 catholic services? Do you belong to any clubs or No 12/20/2021 organizations such as orthodoxy groups, unions, fra[employer]ent Pharm[employer] or athletic groups, or school groups? How [...] place to sleep or slept in a [facility] (including now)? Education Answer Date Recorded What is the highest level of school you have completed or 12 th grade 04/11/2021 the highest degree you have received? 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 - 10/25/2021 9:15 AM CDT Physical Therapy Outpatient Treatment Note SUBJECTIVE Patient's Name: Hussein Whittaker Referring Provider: Dk Mijares M.D. Visit Diagnosis: 1. Primary Osteoarthritis Knee Left Payor: [employer] / Plan: [employer] / Product Type: Indemnity / PT Next Certification Date: 08/08/2021 [facility] Visit Count: 9 Patient comments: Pt reports his surgical follow up went well. He was told to stay home from work anadditional 4 weeks and was given medication for swelling. He has slept very well the past two nightsand states his pain is improving. He has a compression sleeve that he is now wearing everyday and finds this helpful. Contact monitoring: PPE used during therapy: Therapist was wearing the following PPE throughout entire session: surgicalmask and eye protection Patient was wearing a mask during therapy session: yes OBJECTIVE Pain: L knee soreness Range of Motion:?Left ?Right Knee Flexion/Extension 0-140 PROM:??2-120??deg PROM:??NT *Knee flexion measured in supine with PT assist??and moderate-significant??overpressure. ?? Observation: knee compression sleeve donned on L knee. Appropriate amount of compression provided. No swelling present in L ankle/foot. TREATMENT Treatment today consisted of: Therapeutic Exercise: -sci-fit bike, L3, up to seat 12 x5 minutes -stationary bike, x7 minutes, seat 6 and able to perform full revolutions, also slid foot back on pedal for more flexion -DL press, 40#, deep seat position for end-range flexion, 3x10 repetitions with 2 sec holds in flexion, able to hit leg press resting position consistently, had pt slid feet down on platform for more flexion -standing deep knee squats with UE support on countertop sink to pull self up, 2x10 repetitions -supine knee flexion PROM off EOB with PT overpressure for quad stretch, x10 repetitions -supine knee extension stretch with PT overpressure pulses, 3x10 repetitions, benefits from knee flexed resting position between sets -supine heel slides with slider and aggressive overpressure, 2x10 repetitions Home Exercise Program/Education: Continue TKA pathway. Encouraged hamstring and quad stretching Patient reports good HEP compliance. Assessment Clinical Impression: Pt tolerated session well. Was able to get to 120 deg today with significant overpressure, but this is demonstrating progression of knee ROM. He does have increased soreness at theend of session but please with ROM progress. Will continue to benefit from PT 2x/wk to progress ROM and strength to return to work. Rehab Potential: Good [...] week Plan for next session: progress ROM, strength Treatment/Interventions: Therapeutic exercise, Therapeutic functional activity, Gait training, Neuromuscular re-education, Manual therapy Time Spent with Patient Therapeutic Interventions Therapeutic Exercise (min): 37 min Time Tracking Total Timed Units (min): 37 min Total Treatment Time (min): 37 min documented in this encounter Plan of Treatment Upcoming Encounters Date Type Specialty Care Team Description 01/24/2022 Diagnostic Otorhinolaryngology Lara Snell Au.D. [address] [place] [phone] 01/29/2022 Office Visit Orthopedic Surgery Laurie Dumont APRN , C.N.P., D.N.P. [address] [phone] (Wo rk) documented as of this encounter Visit Diagnoses Diagnosis Primary Osteoarthritis Knee Left documented in this encounter Care Teams Client Account Representative Relationship Specialty Start Date End Date Elsewhere, Pcp PCP - General 06/07/19 documented as of this encounter
--- OUTSIDE RECORDS SUMMARY | 2022-01-23 19:35 | XMS_ITS | Encounter Summary ---
:1960 Author Organization [facility] Address [address] [place] [address] Care Team Providers Name Role Phone Elsewhere, Pcp Primary Care Provider Unavailable Reason for Referral Outpatient (Routine) - Closed Specialty Diagnoses / Procedures Referred By Contact Refer red To Contact Diagnoses Pain Knee Left Nieves Hunter, ANA, [facility] Region Procedures DX Knee Left 3 Views C.N.P., D.N.P. [address] [place] [phone] Referral ID Status Reason Start Date Expiration Date Visits Requ ested Visits Authorized [id number] Closed 10/23/2021 10/23/2022 1 1 Reason for Visit Reason Comments Post-op Outpatient (Routine) - Closed Specialty Diagnoses / Procedures Referred By Contact Refer red To Contact Orthopedic Surgery Diagnoses post op Dk Mijares M.D. [facility] Region [address] [place] [phone] Referral ID Status Reason Start Date Expiration Date Visits Requ ested Visits Authorized [id number] Closed 09/18/2021 09/18/2022 1 1 Encounter Details Date Type Department Care Team Description 10/23/2021 Office Visit Department of Nieves Hunter, Pain Knee L eft Orthopedic Surgery in [place] PEREZ.N.PFarshad, (Prim marissa Dx) Arun Garcia D.N.P. [address] [phone] Social History Tobacco Use Types Packs/Day [...] you attend restorationist or Patient refused 2021 temple services? Do you belong to any clubs or No 12/20/2021 organizations such as restorationist groups, unions, fraternal or athletic groups, or [...] place to sleep or slept in a residential (including now)? Education Answer Date Recorded What is the highest level of school you have completed or 12 th grade 04/11/2021 the highest degree you have received? 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 - 10/23/2021 9:30 AM CDT Talon is a 61-year-old who is 2 weeks status post manipulation of his left total knee arthroplasty that was performed on 08/06/2021. He continues to work with physical therapy but has significant swelling and discomfort. He states in the morning his knee is much better than throughout the day. He reports pain being throughout the whole knee and has difficulty with motion and stiffness. Physical exam-left knee surgical incision is well healed. He does have a moderate effusion noted. Knee is stable to valgus and varus. He lacks full extension by 2?? and flexes to 115?? today. No calf tenderness and negative Homans sign. Diagnostic studies x-ray of his left knee shows total knee arthroplasty hardware with no failure. Impression and plan-rays a 61-year-old who is status post manipulation of his left knee. I think he is doing quite well but continues to have a significant amount of pain and swelling. At this time I would like to place him on diclofenac 75 mg twice daily with food for 30 days. We discussed correct adm inistrations as well as potential side effects of this medication. Also will have him use Aspercremelidocaine for the pain on the knee. I would like him to continue with physical therapy. We discussedthe use of compression either by thigh-high Hugo hose versus a knee sleeve however we discussed that may cause some ankle swelling if that occurs the Hugo hose would be a better option. I do not want significant compression just mild compression. And will plan to see him back in 4 weeks. At this time alliewill not be able to return to work and I did write a note to reassess at his return visit. His questions were answered documented in this encounter Plan of Treatment Upcoming Encounters Date Type Specialty Care Team Description 01/24/2022 Diagnostic Otorhinolaryngology Lara Snell Au.D. [address] [facility], [place] [phone] 01/29/2022 Office Visit Orthopedic Surgery Laurie Dumont APRN , C.N.P., D.N.P. [address] [facility], [place] [phone] (Wo rk) documented as of this encounter Results DX Knee Left 3 Views (10/23/2021 10:22 AM CDT) Anatomical Region Laterality Modality Lower Extremity, Knee, Musculoskeletal RST LOS, Left Digital Radiography Musculoskeletal ARZ LOS, Muskuloskeletal FLA LOS Specimen (Source) Anatomical Collection Method Collection Time Re ceived Time Location / / Volume Laterality 10/23/2021 10:26 AM CDT Impressions 10/23/2021 10:26 AM CDT Well-seated left TKA with patellar resurfacing. No radiographic evidence of loosening. Prepatellar soft tissue swelling. Joint effusion. Degenerative narrowing of the medial compartment of the right knee. Narrative 10/23/2021 10:26 AM CDT EXAM: ??DX KNEE LEFT 3 VIEWS Procedure Note Jason Curran M.D. - 10/23/2021Format ting of this note might be different from the original. EXAM: DX KNEE LEFT 3 VIEWS IMPRESSION: Well-seated left TKA with patellar resur facing. No radiographic evidence of loosening. Prepatellar soft tissue swelling. Joint effusion. Degenerative narrowing of the medial compartment of the right knee. Nieves Hunter APRN, C.N.P., D.N.P. IMG DIAGNOSTIC IMAG ING PROCEDURES documented in this encounter Visit Diagnoses Diagnosis Pain Knee Left - Primary Pain Knee Left documented in this encounter Care Teams Senior Sales Representative Relationship Specialty Start Date End Date Elsewhere, Pcp PCP - General 06/07/19 documented as of this encounter
--- OUTSIDE RECORDS SUMMARY | 2022-01-23 19:35 | XMS_ITS | Encounter Summary ---
:1960 Author Organization [facility] Address [address] [place] [address] Care Team Providers Name Role Phone Elsewhere, Pcp Primary Care Provider Unavailable Reason for Visit Physical Therapy (Routine) - Authorized Specialty Diagnoses / Procedures Referred By Contact Refer red To Contact Diagnoses Primary Osteoarthritis Knee Left Dk Mijares M.D. [facility] Procedures PT Ongoing treatment [address] [place] [phone] Referral ID Status Reason Start Date Expiration Date Visits V isits Requested Authorized [id number] Authorized 08/10/2021 05/18/2022 40 40 Encounter Details Date Type Department Care Team Description 12/04/2021 Clinical Support Department of Dk Mijares M.D. [address] [place] [phone] Primary Rehabilitation Juanpablo Pang, P.T. [address] [place] [phone] Osteoarthritis Knee Services in [address] [phone] Social History Tobacco Use Types Packs/Day Years [...] or relatives? How often do you attend yazidism or Patient refused 2021 protestant services? Do you belong to any clubs or No 12/20/2021 organizations such as yazidism groups, unions, [employer] or athletic groups, or school groups? How [...] place to sleep or slept in a [facility] (including now)? Education Answer Date Recorded What is the highest level of school you have completed or 12 th grade 04/11/2021 the highest degree you have received? 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 - 12/04/2021 9:30 AM CDT Subjective: Talon comes into therapy today for us to assess his knee after having some increased swelling from last week. Last week he had gone for a longer walk which was approximately 1-1/2 miles. Since then, he has had some increase in swelling. He has had some increase in pain as well. Objective: Upon observation, there is still moderate swelling noted in the left knee. Strength chua, knee extension is 4+/5. There is no significant pain noted with any special tests of the knee. Initially, on knee flexion was at approximately 115??. We did have him on the stationary bike for approximately 15 minutes lowering the seat to his tolerance. We then provided some contract relax exercises as well as some manual resistance for knee extension. After this, knee flexion was to approximately 120-122 degrees. Extension lag is to 0??. Assessment: Patient does have some increased swelling in his knee. He reports of subjective increase in pain. However, overall, his stability appears to be good with strength being good. We did discuss this with his repair specialist, Dr. Mijares. He feels he may have just irritated his knee with his extended walk. Plan: We would like to see him once again next week. Would like to make sure that he is maintaining his mobility. He will be following up with orthopedics on Friday. We would like to follow up with him prior to this. We will continue to follow up with further therapies should Dr. Mijares feels it is necessary. documented in this encounter Plan of Treatment Upcoming Encounters Date Type Specialty Care Team Description 01/24/2022 Diagnostic Otorhinolaryngology Lara Snell Au.D. [address] [place], [place] [phone] 01/29/2022 Office Visit Orthopedic Surgery Laurie Dumont, ANA , C.N.P., D.N.P. [address] [place], [place] [phone] (Wo rk) documented as of this encounter Visit Diagnoses Diagnosis Primary Osteoarthritis Knee Left documented in this encounter Care Teams Polisher Brass Relationship Specialty Start Date End Date Elsewhere, Pcp PCP - General 06/07/19 documented as of this encounter
--- OUTSIDE RECORDS SUMMARY | 2022-01-23 19:35 | XMS_ITS | Encounter Summary ---
:[address] [facility] Address [address] [place] [address] Care Team Providers Name Role Phone Elsewhere, Pcp Primary Care Provider Unavailable Reason for Visit Reason Comments lab results Encounter Details Date Type Department Care Team Description 12/12/2021 Clinical Communication Department of Nieves Hunter l ab results Orthopedic Surgery [place] [facility] [place] DN.P. [address] [phone] Social History Tobacco Use Types Packs/Day Years [...] or relatives? How often do you attend faith or Patient refused 2021 anabaptist services? 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 - 12/12/2021 8:37 AM CDT Talon notified of lab results per Nieves Hunter DNP. He verbalizes understanding and has no further questions or concerns. Telephone Encounter - Yasmine Meyer R.N. - 12/12/2021 8:37 AM CDT ----- Message from Nieves Hunter APRN, C.N.PFarshad, D.N.PFarshad sent at 12/11/2021 10:11 PM CDT ----- Hey- can you let Talon know that his lab work is normal (CRP/Sed rate) documented in this encounter Plan of Treatment Upcoming Encounters Date Type Specialty Care Team Description 01/24/2022 Diagnostic Otorhinolaryngology Lara Snell Au.D. [address] [place] [phone] 01/29/2022 Office Visit Orthopedic Surgery Laurie Dumont APRN , C.N.P., D.N.P. [address] [place] [phone] (Wo rk) documented as of this encounter Visit Diagnoses Not on filedocumented in this encounter Care Teams Public Area Supervisor Relationship Specialty Start Date End Date Elsewhere, Pcp PCP - General 06/07/19 documented as of this encounter
--- OUTSIDE RECORDS SUMMARY | 2022-01-23 19:35 | XMS_ITS | Encounter Summary ---
:[address] [facility] Address [address] [place] [address] Care Team Providers Name Role Phone Elsewhere, Pcp Primary Care Provider Unavailable Reason for Visit Physical Therapy (Routine) - Authorized Specialty Diagnoses / Procedures Referred By Contact Refer red To Contact Diagnoses Primary Osteoarthritis Knee Left Dk Mijares M.D. [facility] Procedures PT Ongoing treatment [address] [place] [phone] Referral ID Status Reason Start Date Expiration Date Visits V isits Requested Authorized [id number] Authorized 08/10/2021 05/18/2022 40 40 Encounter Details Date Type Department Care Team Description 11/29/2021 Clinical Support Department of Dk Mijares M.D. [address] [place] [phone] Primary Rehabilitation Juanpablo Pang, P.T. [address] [place] [phone] Osteoarthritis Knee Services in [address] [phone] Social History Tobacco Use Types Packs/Day Years [...] or relatives? How often do you attend orthodox or Patient refused 2021 orthodox services? Do you belong to any clubs or No 12/20/2021 organizations such as orthodox groups, unions, fra[employer] Medical or athletic groups, or school groups? How [...] place to sleep or slept in a [place] [facility] (including now)? Education Answer Date Recorded What is the highest level of school you have completed or 12 th grade 04/11/2021 the highest degree you have received? 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 - 11/29/2021 8:45 AM CDT Physical Therapy Outpatient Treatment Note SUBJECTIVE Patient's Name: Hussein Whittaker Referring Provider: Dk Mijares M.D. Visit Diagnosis: 1. Primary Osteoarthritis Knee Left Payor: [facility] / Plan: [facility] [place] / Product Type: PPO / PT Next Certification Date: 08/08/2021 [facility] Visit Count: 16 Patient comments: Talon comes into therapy today stating that they went for a walk last night. This was for distance of approximately 2 miles. That evening, he had a considerable amount of pain in his left knee. He noted that it started to throb in the middle of the night. Presently, he has some pain but not as severe. Prior to this, he really had no significant pain in his knee. Contact monitoring: Appropriate PPE was utilized including face mask/protective eyewear. OBJECTIVE Pain: Ortho Exam Assessing the knee today does show that he has some moderate swelling of the left knee. This appearsto be more suprapatellar. There is no tenderness with palpation to this area. Implant does not appear to be affected at this time. Strength is 4+/5 for knee extension. There is no pain with this. TREATMENT Treatment today consisted of: Patient was on the sci fit for approximately 5 minutes today. We then brought him to the treatment table in worked on aggressive stretching for knee flexion. Initially, flexion was to approximately 115??. After therapy, with contract relax exercises and aggressive stretching, we are able to obtain flexion to approximately 121??. Assessment Clinical Impression: Patient has had an increase in pain in his left knee. He does have moderate amount of swelling notedin the suprapatellar region. However, his strength has not been compromised. He subjectively reportsof having more pain today than he has in the past. However, he is ambulating without a lot of compromise at this time. He would like to get back to work next Friday. He mentioned that his work would entail some sitting and possibly some time out on the floor. Functional Goals and Timeframes: PT Goal #1: Patient will demonstrate knee range of motion 0-120 degrees left lower extremity. PT Goal #1 Date: 12/04/2021 PT Goal #1 Status: Progressing (120 deg with overpressure) PT Goal #2: Pt will report [...] 12/04/2021 PT Goal #4 Status: Progressing Plan Would like to see patient once again on Friday or Friday. Orthopedics will be here on Friday. If he has continued swelling with pain, we would have Orthopedics assess. Does have the neoprene sleeve that he can wear at home. Plan for next session: Time Spent with Patient documented in this encounter Plan of Treatment Upcoming Encounters Date Type Specialty Care Team Description 01/24/2022 Diagnostic Otorhinolaryngology Lara Snell Au.D. [address] [place], [place] [phone] 01/29/2022 Office Visit Orthopedic Surgery Laurie Dumont, ANA , C.N.P., D.N.P. [address] [place], [place] [phone] (Wo rk) documented as of this encounter Visit Diagnoses Diagnosis Primary Osteoarthritis Knee Left documented in this encounter Care Teams Banbury Mill Operator Relationship Specialty Start Date End Date Elsewhere, Pcp PCP - General 06/07/19 documented as of this encounter
--- OUTSIDE RECORDS SUMMARY | 2022-01-23 19:35 | XMS_ITS | Encounter Summary ---
:1960 Author Organization [facility] Address [address] [place] [address] Care Team Providers Name Role Phone Elsewhere, Pcp Primary Care Provider Unavailable Reason for Visit Physical Therapy (Routine) - Authorized Specialty Diagnoses / Procedures Referred By Contact Refer red To Contact Diagnoses Primary Osteoarthritis Knee Left Dk Mijares M.D. [facility] Procedures PT Ongoing treatment [address] [place] [address] Referral ID Status Reason Start Date Expiration Date Visits V isits Requested Authorized [id number] Authorized 08/10/2021 05/18/2022 40 40 Encounter Details Date Type Department Care Team Description 10/18/2021 Clinical Support Department of Dk Mijares M.D. [address] [place] [phone] Primary Rehabilitation Maria Luisa Chaparro, P.T. Osteoarthritis Knee Services in [place] [address] [place] [phone] Social History Tobacco Use Types Packs/Day Years [...] or relatives? How often do you attend sabianist or Patient refused 2021 bahai services? Do you belong to any clubs or No 12/20/2021 organizations such as sabianist groups, unions, [employer] or athletic groups, or school groups? How [...] place to sleep or slept in a jail (including now)? Education Answer Date Recorded What is the highest level of school you have completed or 12 th grade 04/11/2021 the highest degree you have received? 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 - 10/18/2021 12:30 PM CDT Physical Therapy Outpatient Treatment Note SUBJECTIVE Patient's Name: Hussein Whittaker Referring Provider: Dk Mijares M.D. Visit Diagnosis: 1. Primary Osteoarthritis Knee Left Payor: TRAVELERS INSURANCE / Plan: TRAVELERS INSURANCE / Product Type: Indemnity / PT Next Certification Date: 08/08/2021 [facility] Visit Count: 7 Patient comments: Pt reports his knee has increased pain especially int he posterior knee. He messaged the care team who recommended continuing with exercises and icing. He has a surgical follow up next Friday. Contact monitoring: PPE used during therapy: Therapist was wearing the following PPE throughout entire session: surgicalmask and eye protection Patient was wearing a mask during therapy session: yes OBJECTIVE Pain: posterior L knee pain, does not provide numeric value Palpation: Pt has pain in lateral and medial hamstring upon palpation. No pain in Middle of posterior knee. Stairs: Pt performs 4 steps without UE support and reciprocal gait pattern. Pt able to perform fullflight of stairs without UE support but does have shorter stance time on L LE with descent. Appears to be related more to lack of confidence in knee in case it gives out. Pt does not experience giving out throughout stair assessment. Range of Motion:?Left ?Right Knee Flexion/Extension 0-140 PROM:??3-119??deg PROM:??NT *Knee flexion measured in supine with PT assist??and??overpressure. TREATMENT Treatment today consisted of: Therapeutic Exercise: -sci-fit bike, L2 x4 minutes, up to seat 13 -stationary bike, seat 7, x5 minutes, able to make full revolutions both directions -standing knee flexion stretch on second step, x20 repetitions -DL press, 40# deeper seat position for end-range flexion, 4x10 repetitions with 2 sec holds at end-range flexion, able to reach full range at seat position -standing ball squats on wall, 2x10 repetitions, swings arms for momentum due to quad fatigue/weakness -supine heel slides with slider and PT overpressure, 2x10 repetitions Home Exercise Program/Education: Continue Patient reports good HEP compliance. Assessment Clinical Impression: Pt tolerated session but is still sore in the L posterior knee. Posterior knee pain appears to be located on medial and lateral hamstring tendons. Encouraged pt to trial heat pack on proximal hamstrings for muscle relaxation but to avoid heat on distal hamstring or in knee. Encouraged continued icing and knee motion as tolerated. He is demonstrating improved ROM at 119 deg of knee flexion. He will continue to benefit from PT [...] Outpatient Duration (days): 60 days PT Frequency: 3 times per week Plan for next session: progress ROM, quad strength Treatment/Interventions: Therapeutic exercise, Therapeutic functional activity, Gait training, Neuromuscular re-education, Manual therapy Time Spent with Patient Therapeutic Interventions Therapeutic Exercise (min): 33 min Time Tracking Total Timed Units (min): 33 min Total Treatment Time (min): 33 min documented in this encounter Plan of Treatment Upcoming Encounters Date Type Specialty Care Team Description 01/24/2022 Diagnostic Otorhinolaryngology Lara Snell Au.D. [address] [place], [place] [phone] 01/29/2022 Office Visit Orthopedic Surgery Laurie Dumont APRN , C.N.P., D.N.P. [address] [place] [phone] (Wo rk) documented as of this encounter Visit Diagnoses Diagnosis Primary Osteoarthritis Knee Left documented in this encounter Care Teams Blindstitch Machine Operator Relationship Specialty Start Date End Date Elsewhere, Pcp PCP - General 06/07/19 documented as of this encounter
--- OUTSIDE RECORDS SUMMARY | 2022-01-23 19:35 | XMS_ITS | Encounter Summary ---
:1960 Author Organization [facility] Address [address] [place] [address] Care Team Providers Name Role Phone Elsewhere, Pcp Primary Care Provider Unavailable Reason for Visit Reason Comments Hearing Loss Outpatient (Routine) - Authorized Specialty Diagnoses / Procedures Referred By Contact Refer red To Contact Audiology Diagnoses Loss Hearing Mixed Conduct Sensorineural Alvaro Snell Au.D. [facility] [address] [place] [phone] Referral ID Status Reason Start Date Expiration Date Visits V isits Requested Authorized [id number] Authorized 10/29/2021 10/29/2022 1 1 Encounter Details Date Type Department Care Team Description 12/24/2021 Diagnostic Department of Sim Renee M. D. [address] [place] [phone] Loss Hearing Mixed Otorhinolaryngology in [facility] Alvaro Snell Au.D. [address] [place] [phone] [address] [phone] Social History Tobacco Use Types Packs/Day [...] or relatives? How often do you attend latter day or Patient refused 2021 mandaen services? Do you belong to any clubs or No 12/20/2021 organizations such as latter day groups, unions, fraternal or athletic groups, or [...] place to sleep or slept in a fci (including now)? Education Answer Date Recorded What is the highest level of school you have completed or 12 th grade 04/11/2021 the highest degree you have received? 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 - 12/24/2021 3:00 PM CDT Hussein Whittaker is here today for a hearing aid consultation. He is accompanied by his . Reviewed with Hussein his hearing evaluation results. We discussed his lifestyle and activity levels including the array of listening situations he encounters day-to-day. We talked about the technology levels from basic to advanced and where on that spectrum his life falls. He feels that his lifestyle falls in the mid level technology range. We also reviewed the styles of hearing aids available and those appropriate for his hearing loss. He is interested in rechargeability but does not want anything behind his ear. We discussed the 3 sizes available in the rechargeable custom, he would like to try thesmallest size, the ITC in light beige. The ear mold impressions were taken in the usual fashion without incident. He tolerated this well. He is scheduled for hearing aid fitting in 3 weeks. We reviewedthe service plan and department of Health brochure. He was encouraged to contact us with any questions in the meantime. documented in this encounter Plan of Treatment Upcoming Encounters Date Type Specialty Care Team Description 01/24/2022 Diagnostic Otorhinolaryngology Lara Snell Au.D. [address] [facility], [place] [phone] 01/29/2022 Office Visit Orthopedic Surgery Laurie Dumont, ANA , C.N.P., D.N.P. [address] [facility], [place] [phone] (Wo rk) documented as of this encounter Visit Diagnoses Diagnosis Loss Hearing Mixed Conduct Sensorineural documented in this encounter Care Teams Paper Machine Supervisor Relationship Specialty Start Date End Date Elsewhere, Pcp PCP - General 06/07/19 documented as of this encounter
--- OUTSIDE RECORDS SUMMARY | 2022-01-23 19:35 | XMS_ITS | Encounter Summary ---
:1960 Author Organization [facility] Address [address] [place] [address] Care Team Providers Name Role Phone Elsewhere, Pcp Primary Care Provider Unavailable Reason for Referral Outpatient (Routine) - Authorized Specialty Diagnoses / Procedures Referred By Contact Refer red To Contact Audiology Diagnoses Loss Hearing Mixed Conduct Sensorineural Alvaro Snell Au.D. [facility] [address] [place] [phone] Referral ID Status Reason Start Date Expiration Date Visits V isits Requested Authorized [id number] Authorized 10/29/2021 10/29/2022 1 1 Scheduling Instructions 60 minute appointment for a Hearing Aid Consultation Encounter Details Date Type Department Care Team Description 10/29/2021 Orders Only Department of Alvaro Snell Loss Hearing Mixed Otorhinolaryngology in [facility] [place] [address] [address] (Primary Dx) [address] [place] [phone] [place], [place] [phone] Social History Tobacco Use Types Packs/Day Years [...] you attend religious or Patient refused 2021 religion services? Do you belong to any clubs or No 12/20/2021 organizations such as religious groups, unions, [employer] or athletic groups, or school groups? How [...] place to sleep or slept in a half-way (including now)? Education Answer Date Recorded What is the highest level of school you have completed or 12 th grade 04/11/2021 the highest degree you have received? 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 [address] [place], [place] [phone] 01/29/2022 Office Visit Orthopedic Surgery Laurie Dumont APRN , C.N.P., D.N.P. [address] [place], [place] [phone] (Wo rk) Scheduled Orders Name Type Priority Associated Diagnoses Order S chedule Hearing aid check Audiology Routine Loss Hearing Mixed 1 Oc currences starting Conduct Sensorineural 2021 until 01/29/2023 Hearing aid check Audiology Routine Loss Hearing Mixed 1 Oc currences starting Conduct Sensorineural 2021 until 01/29/2023 Hearing aid fitting Audiology Routine Loss Hearing Mixed 1 Occurrences starting Conduct Sensorineural 2021 until 01/29/2023 Scheduled Referrals Name Type Priority Associated Order Schedule Diagnoses Otorhinolaryngology - Outpatient Routine Loss Hearing Mixed Expected: Audiology - Hearing aid Referral Conduct 10/17 program consult (clinic) Sensorineural (A pproximate), Expires: 01/29/2023 documented as of this encounter Visit Diagnoses Diagnosis Loss Hearing Mixed Conduct Sensorineural - Primary documented in this encounter Care Teams Telecommunications Manager Relationship Specialty Start Date End Date Elsewhere, Pcp PCP - General 06/07/19 documented as of this encounter
--- OUTSIDE RECORDS SUMMARY | 2022-01-23 19:35 | XMS_ITS | Encounter Summary ---
:[address] 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 How often do you attend episcopalian or Patient refused 2021 anglican services? Do you belong to any clubs or No 12/20/2021 organizations such as episcopalian groups, unions, fraternal or athletic groups, or [...] place to sleep or slept in a fpc (including now)? Education Answer Date Recorded What is the highest level of school you have completed or 12 th grade 04/11/2021 the highest degree you have received? 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 - 01/03/2022 10:45 AM CDT Here for a DOT exam. Hearing, vision and ua completed. See scanned results. Sandra Sanches M.D. - 01/03/2022 10:45 AM CDT Purchaser Medical Examination SUBJECTIVE Hussein Whittaker is a 61 y.o. 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 The patient reports problems - HTN for several years on meds. No symptoms reported. The following portions of the patient's history were reviewed and updated as appropriate: allergies,current medications, family history, medical history, social history, surgical history, and problem list. CURRENT MEDICATIONS Reviewed and as reported in the [facility] paperwork completed 01/03/2022 REVIEW OF SYSTEMS Pertinent items are noted in HPI. A comprehensive 10+ review of systems was negative except for: None. All other systems reviewed and are negative. OBJECTIVE Vitals: 01/03/22 1023 BP: 122/78 Pulse: 80 Resp: 18 Temp: 36.6 ??C VISION AND HEARING: Applicant can recognize and distinguish among traffic control signals and devices showing standard red, green, and yovana colors. Monocular Vision?: No PHYSICAL EXAMINATION General Appearance: Alert, oriented, healthy-appearing and in no distress. Skin: No suspicious rashes or lesions Head: Normocephalic. Atraumatic. Eyes: Pupils are equally round and reactive to light. Extraocular movements are intact. 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 Color vision is normal. Field of vision is normal Ears: Negative, external ears normal. No tinnitus or disequilibrium. Nose/Sinuses: Nares normal. Septum midline. Mucosa normal. No drainage or sinus tenderness. Oropharynx: Lips, mucosa, and tongue normal, oropharynx normal, no oropharyngeal erythema or exudate. Neck: Negative, without adenopathy; thyroid symmetric, normal size; Lungs: Clear to auscultation, percussion normal, good diaphragmatic excursion, no wheezing or rhonchi. Heart: RRR without murmur, gallop, or rubs. Abdomen: Normal abdominal exam. Bowel sounds normal. Musculoskeletal: Negative. Spine range of motion normal. Muscular strength intact, Range of motion normal in hips, knees, shoulders, and spine. No joint swelling, deformity, or tenderness. Peripheral Pulses: Normal. Neurologic: Gait normal. Patellar reflexes normal and symmetric. No focal motor or sensory abnormalities. Genitalia: Normal. No evidence for inguinal herniation. Lymph Nodes: No lymphadenopathy. DIAGNOSTICS LABS: Lab Results Component Value Date SPECGRAV 1.020 01/03/2022 GLUCOSEU Negative 01/03/2022 ASSESSMENT / PLAN ASSESSMENT: DOT Exam I have review the health history, physical exam, dipstick urinalysis and Titmus. Examination Results: Meets standards, but periodic monitoring required due to HTN. Consulting Hr Professional qualified only for 1 year. Restrictions and Variances: none applicable Medical examiners certificate completed and printed. Return as needed. Department of Transportation Education Provided. The entire written history and physical is scanned into the electronic medical record. documented in this encounter Plan of Treatment Upcoming Encounters Date Type Specialty Care Team Description 01/24/2022 Diagnostic Otorhinolaryngology Lara Snell Au.D. [address] [place], [place] [phone] 01/29/2022 Office Visit Orthopedic Surgery Laurie Dumont, ANA , C.N.P., D.N.P. [address] [place], [place] [phone] (Wo rk) documented as of this encounter Visit Diagnoses Diagnosis Department Of Transportation Examination Department Of Motor Vehicles - Primary documented in this encounter Care Teams Typesetting Machine Tender Relationship Specialty Start Date End Date Elsewhere, Pcp PCP - General 06/07/19 documented as of this encounter
--- OUTSIDE RECORDS SUMMARY | 2022-01-23 19:35 | XMS_ITS | Encounter Summary ---
:1960 Author Organization [facility] Address [address] [place] [address] Care Team Providers Name Role Phone Elsewhere, Pcp Primary Care Provider Unavailable Reason for Visit Physical Therapy (Routine) - Closed Specialty Diagnoses / Procedures Referred By Contact Refer red To Contact Diagnoses Arthroplasty Total Knee Replacement Status Post Left Pain Knee Left Dk Mijares M.D. [facility] Procedures PT Evaluate and treat [address] [place] [phone] Referral ID Status Reason Start Date Expiration Date Visits Requ ested Visits Authorized [id number] Closed 09/18/2021 09/18/2022 1 1 Encounter Details Date Type Department Care Team Description 11/21/2021 Comprehensive Visit Department of Naman Mijares M.D. [address] [facility] [place] [phone] Arthroplasty Total Knee Replacement Stat us Post Left; Rehabilitation Juanpablo Pang, P.T. [address] [place] [address] [place] [address] Pain Knee Left Services in [address] [phone] Social History Tobacco Use Types Packs/Day Years [...] or relatives? How often do you attend yazdanism or Patient refused 2021 congregation services? Do you belong to any clubs or No 12/20/2021 organizations such as yazdanism groups, unions, fraVanna's Vanity or athletic groups, or school groups? 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 - 11/21/2021 9:45 AM CDT Physical Therapy Outpatient Treatment Note SUBJECTIVE Patient's Name: Hussein Whittaker Referring Provider: Dk Mijares M.D. Visit Diagnosis: 1. Arthroplasty Total Knee Replacement Status Post Left 2. Pain Knee Left Payor: TRAVELERS INSURANCE / Plan: TRAVELERS INSURANCE / Product Type: Indemnity / PT Next Certification Date: 08/08/2021 Epic Visit Count: 14 Patient comments: Zulay comes into therapy today for continued strengthening and mobility of his left knee. Contact monitoring: Appropriate PPE was utilized including face mask/protective eyewear. OBJECTIVE Pain: Ortho Exam TREATMENT Treatment today consisted of: I we had patient warm up on the sci fit for approximately 5 minutes. We then brought him to the stationary bike for another 5 minutes. After this, patient was on the leg press machine at 40 lb working into flexion to tolerance. He then worked on lunging exercises. We assessed his mobility while he is doing this. We had 120?? with this. We then brought him over to the treatment table in worked on aggressive passive range of motion both in supine and in the prone position trying to address his higher quads. We had him work on contract relax exercises with manual resistance by the therapist. We then worked on deep friction massage around the knee itself. After therapy, we are able to obtain knee flexion to approximately 125??. Assessment Clinical Impression: Patient tolerated well overall. Functional Goals and Timeframes: PT Goal #1: [...] 12/04/2021 PT Goal #4 Status: Progressing Plan Will continue to work on mobility. Strength is progressing well. Plan for next session: Time Spent with Patient Therapeutic Interventions Manual Therapy (min): 15 min Therapeutic Exercise (min): 15 min Time Tracking Total Timed Units (min): 30 min Total Treatment Time (min): 30 min documented in this encounter Plan of Treatment Upcoming Encounters Date Type Specialty Care Team Description 01/24/2022 Diagnostic Otorhinolaryngology Lara Snell Au.D. [address] [place] [phone] 01/29/2022 Office Visit Orthopedic Surgery Laurie Dumont, ANA , C.N.P., D.N.P. [address] [place], [place] [phone] (Wo rk) documented as of this encounter Visit Diagnoses Diagnosis Arthroplasty Total Knee Replacement Stat us Post Left Pain Knee Left documented in this encounter Care Teams Head Of Conservation Relationship Specialty Start Date End Date Elsewhere, Pcp PCP - General 06/07/19 documented as of this encounter
--- OUTSIDE RECORDS SUMMARY | 2022-01-23 19:35 | XMS_ITS | Encounter Summary ---
:1960 Author Organization [facility] Address [address] [place] [address] Care Team Providers Name Role Phone Elsewhere, Pcp Primary Care Provider Unavailable Reason for Visit Physical Therapy (Routine) - Authorized Specialty Diagnoses / Procedures Referred By Contact Refer red To Contact Diagnoses Primary Osteoarthritis Knee Left Dk Miajres M.D. [facility] Procedures PT Ongoing treatment [address] [place] [address] Referral ID Status Reason Start Date Expiration Date Visits V isits Requested Authorized [id number] Authorized 08/10/2021 05/18/2022 40 40 Encounter Details Date Type Department Care Team Description 11/27/2021 Clinical Support Department of Dk Mijares M.D. [address] [place] [phone] Primary Rehabilitation Yasmine Cherry, P.T. [facility] [place] [address] [place] [phone] Social History Tobacco Use Types Packs/Day Years [...] or relatives? How often do you attend advent or Patient refused 2021 christian services? Do you belong to any clubs or No 12/20/2021 organizations such as advent groups, unions, fraternal or athletic groups, or [...] place to sleep or slept in a retirement (including now)? Education Answer Date Recorded What is the highest level of school you have completed or 12 th grade 04/11/2021 the highest degree you have received? 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 Visit Diagnosis: 1. Primary Osteoarthritis Knee Left Payor: [facility] / Plan: [facility] [place] / Product Type: PPO / PT Next Certification Date: 08/08/2021 [facility] Visit Count: 15 Patient comments: Patient presents to therapy with no new complaints. Contact monitoring: PPE used during therapy: Therapist was wearing the following PPE throughout entire session: surgicalmask and eye protection Patient was wearing a mask during therapy session: yes OBJECTIVE Pain: Achy and stiffness Range of motion: L: 0-122 TREATMENT Treatment today consisted of: Therapeutic Exercise: -Upright bike x6 minutes at lowest seat height -Knee flexion stretch on 2nd step height x20 with 10 hold -Band resisted side steps with knee straight and with knee bent -Prone quad stretch 3x30 -Seated knee flexion stretch -Manual resisted LAQ -Supine heel slides -Supine end range knee flexion stretch step 10x10 end motion of 122 degrees Home Exercise Program/Education: Continue TKA pathway Access Code: [email or web address] URL: [email or web address] Date: 11/27/2021 Prepared by: DALJIT [place] Exercises Lateral Step Down - 1 x daily - 3 sets - 10 reps Prone Quadriceps Stretch with Strap - 1 x daily - 3 sets - 30 hold Side Stepping with Resistance at Ankles - 1 x daily - 3 sets - 10 reps Patient reports good HEP compliance. Assessment Clinical Impression: Patient is a pleasant 61 year old male who is s/p L knee TKA and manipulation. Patient is making great progress in physical therapy and has improved thigh strength and knee flexibility. His L knee range of motion measured to be 0-122 today without much discomfort. We updated his HEP and added prone quad stretch, band resisted side steps which patient has difficulty with due to fatigue, and lateral heel taps off step. He is limited by fatigue and isolated thigh weakness. Overall he is making good progress. He??will continue to benefit from PT services for improved functional mobility and strength in order to return to work.?? Functional Goals and Timeframes: PT Goal #1: [...] 12/04/2021 PT Goal #4 Status: Progressing Plan Plan for next session: progress AROM, functional strength Time Spent with Patient Therapeutic Interventions Therapeutic Exercise (min): 35 min Time Tracking Total Timed Units (min): 35 min Total Treatment Time (min): 35 min documented in this encounter Plan of Treatment Upcoming Encounters Date Type Specialty Care Team Description 01/24/2022 Diagnostic Otorhinolaryngology Lara Snell Au.D. [address] [place], [place] [phone] 01/29/2022 Office Visit Orthopedic Surgery Laurie Dumont APRN , C.N.P., D.N.P. [address] [place], [place] [phone] (Wo rk) documented as of this encounter Visit Diagnoses Diagnosis Primary Osteoarthritis Knee Left documented in this encounter Care Teams Interlocker Maintainer Relationship Specialty Start Date End Date Elsewhere, Pcp PCP - General 06/07/19 documented as of this encounter
--- OUTSIDE RECORDS SUMMARY | 2022-01-23 19:35 | XMS_ITS | Encounter Summary ---
:1960 Author Organization [facility] Address [address] [place] [address] Care Team Providers Name Role Phone Elsewhere, Pcp Primary Care Provider Unavailable Reason for Visit Physical Therapy (Routine) - Authorized Specialty Diagnoses / Procedures Referred By Contact Refer red To Contact Diagnoses Primary Osteoarthritis Knee Left Dk Mijares M.D. [facility] [place] [facility] Procedures PT Ongoing treatment [address] [place] [address] Referral ID Status Reason Start Date Expiration Date Visits V isits Requested Authorized [id number] Authorized 08/10/2021 05/18/2022 40 40 Encounter Details Date Type Department Care Team Description 11/08/2021 Clinical Support Department of Dk Mijares M.D. [address] [place] [phone] Primary Rehabilitation Maria Luisa Chaparro, P.T. [facility] [place] [address] [place] [phone] Social History Tobacco Use Types Packs/Day Years [...] or relatives? How often do you attend mu-ism or Patient refused 2021 caodaism services? Do you belong to any clubs or No 12/20/2021 organizations such as mu-ism groups, unions, fraVeriTainer or athletic groups, or school groups? How [...] place to sleep or slept in a alf (including now)? Education Answer Date Recorded What is the highest level of school you have completed or 12 th grade 04/11/2021 the highest degree you have received? 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 - 11/08/2021 8:30 AM CDT Physical Therapy Outpatient Treatment Note SUBJECTIVE Patient's Name: Hussein Whittaker Referring Provider: Dk Mijares M.D. Visit Diagnosis: 1. Primary Osteoarthritis Knee Left Payor: [employer] / Plan: [employer] / Product Type: Indemnity / PT Next Certification Date: 08/08/2021 Epic Visit Count: 13 Patient comments: Pt reports no new concerns. He continues to ice intermittently as needed. Contact monitoring: PPE used during therapy: Therapist was wearing the following PPE throughout entire session: surgicalmask and eye protection Patient was wearing a mask during therapy session: yes OBJECTIVE Pain: L knee pain in end-range flexion with overpressure, does not provide numeric value Range of Motion:?Left ?Right Knee Flexion/Extension 0-140 PROM:??1-125??deg PROM:??NT *Knee flexion measured in supine with PT assist??and??moderate??overpressure. Knee AROM 119 deg in supine with slider. ?? Observation: Pt ambulates into therapy gym without SPC independently without antalgic gait.??He is not wearing knee sleeve today and has improving swelling. TREATMENT Treatment today consisted of: Neuromuscular Re-education: -SLS on airex, 3x45 sec holds bilaterally Therapeutic Exercise: -sci-fit bike, L5 x5 minutes -stationary bike, seat 2, x5 minutes with full revolutions both directions, no hip hikes notes -standing knee flexion stretch on second step, x15 repetitions -side stepping with green Tb loop above knees, 2x25 ft both directions -DL press, 50#, able to lower seat positioning further for more knee stretch, 3x10 repetitions -supine heel slides with slider and PT overpressure, 3x10 repetitions Home Exercise Program/Education: Continue TKA pathway. Patient reports good HEP compliance. Assessment Clinical Impression: Pt tolerated session well. He continues to maintain PROM >120 deg and is improving AROM in supine. He does continue to have LLE weakness compared to the R as seen with SLS but is overall improving. Anticipate he will be cleared to return to work by physician at next follow up. He will continue to benefit from PT [...] Plan for next session: progress AROM, functional strength, band stepping, airex step ups Time Spent with Patient Therapeutic Interventions Neuromuscular Re-Education (min): 5 min Therapeutic Exercise (min): 26 min Time Tracking Total Timed Units (min): 31 min Total Treatment Time (min): 31 min documented in this encounter Plan of Treatment Upcoming Encounters Date Type Specialty Care Team Description 01/24/2022 Diagnostic Otorhinolaryngology Lara Snell Au.D. [address] [place], [place] [phone] 01/29/2022 Office Visit Orthopedic Surgery Laurie Dumont APRN , C.N.P., D.N.P. [address] [place], [place] [phone] (Wo rk) documented as of this encounter Visit Diagnoses Diagnosis Primary Osteoarthritis Knee Left documented in this encounter Care Teams Sales Producer Relationship Specialty Start Date End Date Elsewhere, Pcp PCP - General 06/07/19 documented as of this encounter
--- OUTSIDE RECORDS SUMMARY | 2022-01-23 19:35 | XMS_ITS | Encounter Summary ---
:1960 Author Organization [facility] Address [address] [place] [address] Care Team Providers Name Role Phone Elsewhere, Pcp Primary Care Provider Unavailable Reason for Visit Reason Comments Hearing Loss Outpatient (Routine) - Authorized Specialty Diagnoses / Procedures Referred By Contact Refer red To Contact Audiology Diagnoses Loss Hearing Bilateral Chica Rodriguez APRN, [facility] C.N.P., D.N.P. [address] [place] [address] Referral ID Status Reason Start Date Expiration Date Visits V isits Requested Authorized [id number] Authorized 10/08/2021 10/08/2022 1 1 Encounter Details Date Type Department Care Team Description 10/18/2021 Diagnostic Department of Chica Rodriguez APRN, C.N.P., D.N.P. [address] [place] [address] Loss Hearing Otorhinolaryngology in [facility] Alvaro Snell Au.D. [address] [place] [phone] Sensorineural [place], [place] Bilateral [address] [place] [address] Social History Tobacco Use Types Packs/Day [...] or relatives? How often do you attend yazidi or Patient refused 2021 worship services? Do you belong to any clubs or No 12/20/2021 organizations such as yazidi groups, unions, fraClimateminder or athletic groups, or school groups? 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 - 10/18/2021 3:39 PM CDT SUBJECTIVE CHIEF COMPLAINT / REASON FOR VISIT ?? Gradually developing hearing loss bilaterally HISTORY OF PRESENT COMPLAINT Mr. Hussein Whittaker is a 61 year old patient who presents for audiological evaluation. He is accompanied today by his and daughter who have been very concerned about his hearing. They are seeing that he is missing conversation and misunderstanding what is being said on a daily basis. He suspects that there have been some changes in his hearing over the years, but he does not feel that his hearingloss is significant. He reports that he has his hearing screened at work and they have not noted anystandard threshold shifts (change of 15dB or greater in a one year period) over the years. Hearing is the same in both ears. Mr. Whittaker's history was positive for noise exposure (occupational). He denies: otalgia, otorrhea, loudness intolerance, aural pressure / fullness, dizziness / imbalance. OBJECTIVE See Audiological Evaluation Form ASSESSMENT/PLAN ?? Bilaterally: Mild to moderate sloping sensorineural hearing loss with excellent word recognition ability bilaterally. ?? Substantial auditory-based communicative deficit anticipated. CARE PLAN ?? Consider trial period with hearing aid(s) locally if desired and motivated. While his family is very interested in Hussein getting help with his hearing to improve their ability to communicate with him, he is not interested in hearing aids at this time. He is encouraged to reconsider. ?? Re-evaluate in three years, sooner if change in hearing, tinnitus and/or balance status suspected. documented in this encounter Plan of Treatment Upcoming Encounters Date Type Specialty Care Team Description 01/24/2022 Diagnostic Otorhinolaryngology Lara Snell Au.D. [address] [place], [place] [phone] 01/29/2022 Office Visit Orthopedic Surgery Laurie Dumont, ANA , C.N.P., D.N.P. [address] [place], [place] [phone] (Wo rk) documented as of this encounter Procedures Procedure Name Priority Date/Time Associated Diagnosis Comme nts OTORHINOLARYNGOLOGY - Routine 10/18/2021 12:00 Loss Hearing AUDIOLOGY - HEARING AID AM CDT Sensorineural PROGRAM CONSULT (CLINIC) Bilateral documented in this encounter Results Otorhinolaryngology - Audiology - Hearing aid program consult (clinic) (10/18/2021 12:00 AM CDT) Specimen (Source) Anatomical Location Collection Method / Collectio n Time Received Time / Laterality Volume 10/18/2021 Narrative This result has an attachment that is no t available. Chica Rodriguez APRN, C.N.P., D.N.P. OUTPATIENT REFERR AL ORDERABLES documented in this encounter Visit Diagnoses Diagnosis Loss Hearing Sensorineural Bilateral documented in this encounter Care Teams Tafe Registrar Relationship Specialty Start Date End Date Elsewhere, Pcp PCP - General 06/07/19 documented as of this encounter
--- OUTSIDE RECORDS SUMMARY | 2022-01-23 19:35 | XMS_ITS | Encounter Summary ---
:1960 Author Organization [facility] Address [address] [place] [address] Care Team Providers Name Role Phone Elsewhere, Pcp Primary Care Provider Unavailable Reason for Visit Physical Therapy (Routine) - Authorized Specialty Diagnoses / Procedures Referred By Contact Refer red To Contact Diagnoses Primary Osteoarthritis Knee Left Dk Mijares M.D. [facility] [place] [facility] Procedures PT Ongoing treatment [address] [place] [address] Referral ID Status Reason Start Date Expiration Date Visits V isits Requested Authorized [id number] Authorized 08/10/2021 05/18/2022 40 40 Encounter Details Date Type Department Care Team Description 10/16/2021 Clinical Support Department of Dk Mijares M.D. [address] [place] [phone] Primary Rehabilitation Maria Luisa Chaparro, P.T. [facility] [place] [address] [place] [phone] Social History Tobacco Use Types Packs/Day Years [...] or relatives? How often do you attend voodoo or Patient refused 2021 rastafarian services? Do you belong to any clubs or No 12/20/2021 organizations such as voodoo groups, unions, fraRevenew or athletic groups, or school groups? 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 - 10/16/2021 12:45 PM CDT Physical Therapy Outpatient Treatment Note SUBJECTIVE Patient's Name: Hussein Whittaker Referring Provider: Dk Mijares M.D. Visit Diagnosis: 1. Primary Osteoarthritis Knee Left Payor: [employer] / Plan: [employer] / Product Type: Indemnity / PT Next Certification Date: 08/08/2021 Epic Visit Count: 6 Patient comments: Pt reports his knee felt pretty good over the weekend. He brought the CPM machine with him on vacation and used this consistently. He worked on continued motion of knee and icing. He did not need to take any rest breaks on his [address] due to pain. He has surgical follow up next week. He is noticing more posterior L knee soreness compared to anterior at this time. Contact monitoring: PPE used during therapy: Therapist was wearing the following PPE throughout entire session: surgicalmask and eye protection Patient was wearing a mask during therapy session: yes Daughter present with PPE donned appropriately OBJECTIVE Pain: posterior L knee soreness, does not provide numeric value ?? Range of Motion:?Left ?Right Knee Flexion/Extension 0-140 PROM:??4-118??deg PROM:??NT *Knee flexion measured in supine with PT assist??and??overpressure. Less overpressure required compared to last week. Observation: Pt ambulates into/out of therapy dept independently without cane present. He has minimal antalgic gait favoring L LE but this does increase with fatigue and soreness during therapy session. Improving knee flexion noted. TREATMENT Treatment today consisted of: Manual Therapy: -STM to L quad with intermittent TPR -STM to posterior L knee for swelling management as well as relaxation of lateral and medial hamstring tendons (more so lateral) -quad MET's in prone position for improved quad flexibility, 2x4 repetitions with 3 sec holds Therapeutic Exercise: -sci-fit bike, L2 x5 minutes -stationary bike, seat 8, x5 minutes, able to progress to seat 7 height with ability to make full revolutions instantly in both directions, minimal L hip elevation initially -standing knee flexion stretch on second step, x20 repetitions -DL press, 40# deeper seat position for end-range flexion, 3x10 repetitions with 2 sec holds at end-range flexion -prone knee flexion with PT overpressure for knee mobility, 2x10 repetitions -supine heel slides with slider and PT overpressure, 2x10 repetitions Home Exercise Program/Education: Continue TKA pathway and CPM machine Patient reports good HEP compliance. Assessment Clinical Impression: Pt tolerated session well. He does get increased soreness throughout session today but more so in posterior knee compared to anterior. He was able to maintain knee ROM over the weekend, and less overpressure was needed to get to this range. He is walking without an AD mostly throughout his day, showing improving standing tolerance and strength. He will continue to benefit from PTservices in order for improved functional mobility. Rehab [...] Plan for next session: progress knee ROM, quad strength Treatment/Interventions: Therapeutic exercise, Therapeutic [...] 01/24/2022 Diagnostic Otorhinolaryngology Lara Snell Au.D. [address] [place], [place] [phone] 01/29/2022 Office Visit Orthopedic Surgery Laurie Dumont, ANA , C.N.P., D.N.P. [address] [place] [phone] (Wo rk) documented as of this encounter Visit Diagnoses Diagnosis Primary Osteoarthritis Knee Left documented in this encounter Care Teams Procedures Analyst Relationship Specialty Start Date End Date Elsewhere, Pcp PCP - General 06/07/19 documented as of this encounter
--- OUTSIDE RECORDS SUMMARY | 2022-01-23 19:35 | XMS_ITS | Encounter Summary ---
:1960 Author Organization [facility] Address [address] [place] [address] Care Team Providers Name Role Phone Elsewhere, Pcp Primary Care Provider Unavailable Reason for Visit Physical Therapy (Routine) - Authorized Specialty Diagnoses / Procedures Referred By Contact Refer red To Contact Diagnoses Primary Osteoarthritis Knee Left Dk Mijares M.D. [facility] Procedures PT Ongoing treatment [address] [place] [address] Referral ID Status Reason Start Date Expiration Date Visits V isits Requested Authorized [id number] Authorized 08/10/2021 05/18/2022 40 40 Encounter Details Date Type Department Care Team Description 11/06/2021 Clinical Support Department of Dk Mijares M.D. [address] [place] [phone] Primary Rehabilitation Maria Luisa Chaparro, P.T. [facility] [place] [address] [place] [phone] Social History Tobacco Use Types Packs/Day Years [...] or relatives? How often do you attend adventist or Patient refused 2021 christianity services? Do you belong to any clubs or No 12/20/2021 organizations such as adventist groups, unions, fraFlyClip or athletic groups, or school groups? How [...] place to sleep or slept in a intermediate (including now)? Education Answer Date Recorded What is the highest level of school you have completed or 12 th grade 04/11/2021 the highest degree you have received? 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 - 11/06/2021 8:30 AM CDT Physical Therapy Outpatient Treatment Note SUBJECTIVE Patient's Name: Hussein Whittaker Referring Provider: Dk Mijares M.D. Visit Diagnosis: 1. Primary Osteoarthritis Knee Left Payor: [employer] / Plan: [employer] / Product Type: Indemnity / PT Next Certification Date: 08/08/2021 [facility] Visit Count: 12 Patient comments: Pt reports his quads bilaterally were very sore all weekend after last session. They are still somewhat sore. His L knee is doing okay but did have trouble sleeping last night due to constant anterolateral achiness. Contact monitoring: PPE used during therapy: Therapist was wearing the following PPE throughout entire session: surgicalmask and eye protection Patient was wearing a mask during therapy session: yes OBJECTIVE Pain: L anterolateral knee achiness, does not provide numeric value Range of Motion:?Left ?Right Knee Flexion/Extension 0-140 PROM:??1-125??deg PROM:??NT *Knee flexion measured in supine with PT assist??and??moderate??overpressure. Knee AROM 118 deg in supine with slider. ?? Observation: Pt ambulates into therapy gym without SPC independently with minimal antalgic gait.??Heis not wearing knee sleeve today and has improving swelling. ?? TREATMENT Treatment today consisted of: Therapeutic Exercise: -sci-fit bike, seat 13, L1 x5 minutes -stationary bike, seat 2 x6 minutes, full revolutions both directions -standing knee flexion stretch x20 repetitions on second step -DL press, 50#, 3x12 repetitions, heels off base of platform for increased knee flexion -supine heel slides with slider and PT assist, moderate overpressure, 2x10 repetitions ?? Home Exercise Program/Education: Continue TKA pathway. Encouraged quad stretching and focus on SLR and wall squats for strengthening. Patient reports good HEP compliance. Assessment Clinical Impression: Pt tolerated session well. He is continuing to demonstrate knee ROM improvements. He continues to have quad strength deficits but this is bilaterally due to less activity because of surgery. He will continue to benefit from PT services for improved functional mobility and strengthin order to return to work. Rehab Potential: [...] week Plan for next session: quad strength, end-range flexion Treatment/Interventions: Therapeutic exercise, Therapeutic functional activity, Gait training, Neuromuscular re-education, Manual therapy Time Spent with Patient Therapeutic Interventions Therapeutic Exercise (min): 33 min Time Tracking Total Timed Units (min): 33 min Total Treatment Time (min): 33 min documented in this encounter Plan of Treatment Upcoming Encounters Date Type Specialty Care Team Description 01/24/2022 Diagnostic Otorhinolaryngology Lara Snell Au.D. [address] [place], [place] [phone] 01/29/2022 Office Visit Orthopedic Surgery Laurie Dumont APRN , C.N.P., D.N.P. [address] [facility], [place] [phone] (Wo rk) documented as of this encounter Visit Diagnoses Diagnosis Primary Osteoarthritis Knee Left documented in this encounter Care Teams Chalk Machine Operator Relationship Specialty Start Date End Date Elsewhere, Pcp PCP - General 06/07/19 documented as of this encounter
--- OUTSIDE RECORDS SUMMARY | 2022-01-23 19:35 | XMS_ITS | Encounter Summary ---
:1960 Author Organization [facility] Address [address] [place] [address] Care Team Providers Name Role Phone Elsewhere, Pcp Primary Care Provider Unavailable Reason for Visit Physical Therapy (Routine) - Authorized Specialty Diagnoses / Procedures Referred By Contact Refer red To Contact Diagnoses Primary Osteoarthritis Knee Left Dk Mijares M.D. [facility] Procedures PT Ongoing treatment [address] [place] [phone] Referral ID Status Reason Start Date Expiration Date Visits V isits Requested Authorized [id number] Authorized 08/10/2021 05/18/2022 40 40 Encounter Details Date Type Department Care Team Description 10/10/2021 Clinical Support Department of Dk Mijares M.D. [address] [place] [phone] Primary Rehabilitation Maria Luisa Chaparro, P.T. Osteoarthritis Knee Services [place] [address] [place] [phone] Social History Tobacco Use Types Packs/Day Years [...] or relatives? How often do you attend sabianism or Patient refused 2021 alevism services? Do you belong to any clubs or No 12/20/2021 organizations such as sabianism groups, unions, fraMedichanical Engineering or athletic groups, or school groups? 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 - 10/10/2021 1:30 PM CDT Physical Therapy Outpatient Treatment Note SUBJECTIVE Patient's Name: Hussein Whittaker Referring Provider: Dk Mijares M.D. Visit Diagnosis: 1. Primary Osteoarthritis Knee Left Payor: [employer]UR[employer] / Plan: [employer]UR[employer] / Product Type: Indemnity / PT Next Certification Date: 08/08/2021 Epic Visit Count: 4 Patient comments: Pt reports increased soreness into the anterior and now posterior aspect of his knee. He continues to use the CPM machine. He tried use of rolling pin but found it very sensitive to perform due to tightness and bruise that is present. Contact monitoring: PPE used during therapy: Therapist was wearing the following PPE throughout entire session: surgicalmask and eye protection Patient was wearing a mask during therapy session: yes OBJECTIVE Pain: pain in L knee, does not provide numeric value Range of Motion:?Left ?Right Knee Flexion/Extension 0-140 PROM:??4-117 deg PROM:??NT *Knee flexion measured in supine with PT assist??and overpressure. TREATMENT Treatment today consisted of: Manual Therapy: -STM to L quad with intermittent TPR -patellar mobs in all four directions, grade III for mobility, limited by swelling present Therapeutic Exercise: -sci-fit bike, L2 up to seat 13, x6 minutes -stationary bike, x5 minutes, seat 8 -standing knee flexion stretch on second step x20 repetitions -standing deep knee flexion squats with UE support at parallel bars, 3x10 repetitions -supine heel slides, 3x10 repetitions -reviewed standing quad stretch on chair at counter top Home Exercise Program/Education: Continue TKA pathway and CPM machine use Patient reports good HEP compliance. Assessment Clinical Impression: Pt tolerated session but has increased knee pain. He was able to maintain ROM despite increase in pain, noting easier ability to get to end-range today. He will continue to benefitfrom PT services in order for improved functional mobility. Functional Goals and Timeframes: PT Goal #1: [...] Status: Progressing Plan Plan for next session: ROM, strength, quad relaxation Time Spent with Patient Therapeutic Interventions Manual Therapy (min): 10 min Therapeutic Exercise (min): 25 min Time Tracking Total Timed Units (min): 35 min Total Treatment Time (min): 35 min documented in this encounter Plan of Treatment Upcoming Encounters Date Type Specialty Care Team Description 01/24/2022 Diagnostic Otorhinolaryngology Lara Snell Au.D. [address] [place], [place] [phone] 01/29/2022 Office Visit Orthopedic Surgery Laurie Dumont APRN , C.N.P., D.N.P. [address] [place], [place] [phone] (Wo rk) documented as of this encounter Visit Diagnoses Diagnosis Primary Osteoarthritis Knee Left documented in this encounter Care Teams Community Health Education Coordinator Relationship Specialty Start Date End Date Elsewhere, Pcp PCP - General 06/07/19 documented as of this encounter
--- OUTSIDE RECORDS SUMMARY | 2022-01-23 19:35 | XMS_ITS | Encounter Summary ---
:1960 Author Organization [facility] Address [address] [place] [address] Care Team Providers Name Role Phone Elsewhere, Pcp Primary Care Provider Unavailable Reason for Visit Physical Therapy (Routine) - Authorized Specialty Diagnoses / Procedures Referred By Contact Refer red To Contact Diagnoses Primary Osteoarthritis Knee Left Dk Mijares M.D. [facility] Procedures PT Ongoing treatment [address] [place] [phone] Referral ID Status Reason Start Date Expiration Date Visits V isits Requested Authorized [id number] Authorized 08/10/2021 05/18/2022 40 40 Encounter Details Date Type Department Care Team Description 12/14/2021 Clinical Support Department of Dk Mijares M.D. [address] [place] [phone] Primary Rehabilitation Juanpablo Pang, P.T. [address] [place] [phone] Osteoarthritis Knee Services in [address] [phone] Social History Tobacco Use Types Packs/Day Years [...] you attend jew or Patient refused 2021 pentecostal services? Do you belong to any clubs or No 12/20/2021 organizations such as jew groups, unions, fraBackand or athletic groups, or school groups? 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 - 12/14/2021 6:30 AM CDT Subjective: Re comes into therapy today after having seen Orthopedics. They are going to have him return possible. He is uncertain as to whether his employer is able to take him back with the restrictions. Objective: We did assess patient's overall mobility today. He did work out on the stationary bike followed by leg press machine coming down into flexion to tolerance. We also had him work on lunges. We then worked aggressively on passive range of motion with patient in supine. We worked on contract relax exercises for knee extension/flexion. We worked on stretching of the quadriceps/hip flexors. Knee flexion after therapy today was to 122??. Extension is to 0??. Assessment: Patient has a hard end feel with knee flexion at 120-122 degrees. Overall strength is 4+/5. He is unable to get down onto his left knee. He comes down onto his right knee to get down the floor if necessary. Plan: Patient continues to have some swelling in his left knee. This may be inhibiting some of his mobility. Swelling might be contributing to some of the limitation that he has. When he 1st comes into therapy, his mobility is approximately 115??. With aggressive stretching and exercise, we are able to obtain knee flexion to 122??. If he is noticing decrease in mobility, we recommended that we see him again. Plan of care is to see patient 1 time per week for the next 4 weeks if necessary. documented in this encounter Plan of Treatment Upcoming Encounters Date Type Specialty Care Team Description 01/24/2022 Diagnostic Otorhinolaryngology Lara Snell Au.D. [address] [place], [place] [phone] 01/29/2022 Office Visit Orthopedic Surgery Laurie Dumont APRN , C.N.P., D.N.P. [address] [place], [place] [phone] (Wo rk) documented as of this encounter Visit Diagnoses Diagnosis Primary Osteoarthritis Knee Left documented in this encounter Care Teams Paint Prep Technician Relationship Specialty Start Date End Date Elsewhere, Pcp PCP - General 06/07/19 documented as of this encounter
--- OUTSIDE RECORDS SUMMARY | 2022-01-23 19:35 | XMS_ITS | Encounter Summary ---
:1960 Author Organization [facility] Address [address] [place] [address] Care Team Providers Name Role Phone Elsewhere, Pcp Primary Care Provider Unavailable Encounter Details Date Type Department Care Team Description 11/30/2021 Clinical Communication Department of Dk Mijares , Orthopedic Surgery in [place], [place] [address] [facility] [address] [place] [phone] Social History Tobacco Use Types Packs/Day Years [...] or relatives? How often do you attend moravian or Patient refused 2021 yazidism services? 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 - 11/30/2021 2:07 PM CDT Spoke with Eda Virgen from and relayed Laurie Dumont's updated restrictions. Telephone Encounter - Laurie Dumont APRN, C.N.PFarshad, D.N.P. - 11/30/2021 11:23 AM CDT He is not able to climb ladders. He can strap totes but not lift any to carry any more than 35lbs. 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 Thanks. Telephone Encounter - Sahara Stallworth - 11/30/2021 9:53 AM CDT Reason for Communication: Eda Virgen from called stating that she got the doctors note for patient about restrictions but is wondering if patient would be able to climb ladders, strap totes and carry those down, get in and out of box trucks or fork lifts. She is calling due to these restrictions are not on the note and wanting to clarify what the patient can and cant do Current Can Nursing/Provider leave a detailed message?: yes Did the patient refuse triage through Nurse line? (for symptom based concerns): n/a Action Needed: Please reach out to clarify work restrictions Name of Medication (if relevant): Please send all scheduling replies to scheduling pool. documented in this encounter Plan of Treatment Upcoming Encounters Date Type Specialty Care Team Description 01/24/2022 Diagnostic Otorhinolaryngology Lara Snell Au.D. [address] [place], [place] [phone] 01/29/2022 Office Visit Orthopedic Surgery Laurie Dumont, ANA , C.N.P., D.N.P. [address] [place], [place] [phone] (Wo rk) documented as of this encounter Visit Diagnoses Not on filedocumented in this encounter Care Teams Hematology Nurse Relationship Specialty Start Date End Date Elsewhere, Pcp PCP - General 06/07/19 documented as of this encounter
--- OUTSIDE RECORDS SUMMARY | 2022-01-23 19:35 | XMS_ITS | Encounter Summary ---
:1960 Author Organization [facility] Address [address] [place] [address] Care Team Providers Name Role Phone Elsewhere, Pcp Primary Care Provider Unavailable Reason for Visit Physical Therapy (Routine) - Authorized Specialty Diagnoses / Procedures Referred By Contact Refer red To Contact Diagnoses Primary Osteoarthritis Knee Left Dk Mijares M.D. [facility] Procedures PT Ongoing treatment [address] [place] [phone] Referral ID Status Reason Start Date Expiration Date Visits V isits Requested Authorized [id number] Authorized 08/10/2021 05/18/2022 40 40 Encounter Details Date Type Department Care Team Description 10/30/2021 Clinical Support Department of Dk Mijares M.D. [address] [place] [phone] Primary Rehabilitation Maria Luisa Chaparro, P.T. Oste[facility] Knee [facility] [place] [address] [place] [phone] Social History Tobacco Use Types Packs/Day Years [...] or relatives? How often do you attend hindu or Patient refused 2021 scientologist services? Do you belong to any clubs or No 12/20/2021 organizations such as hindu groups, unions, fraRedgage or athletic groups, or school groups? How [...] place to sleep or slept in a penitentiary (including now)? Education Answer Date Recorded What is the highest level of school you have completed or 12 th grade 04/11/2021 the highest degree you have received? 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 - 10/30/2021 2:00 PM CDT Physical Therapy Outpatient Treatment Note SUBJECTIVE Patient's Name: Hussein Whittaker Referring Provider: Dk Mijares M.D. Visit Diagnosis: 1. Primary Osteoarthritis Knee Left Payor: [employer]UR[employer] / Plan: [employer]URANCE / Product Type: Indemnity / PT Next Certification Date: 08/08/2021 [facility] Visit Count: 10 Patient comments: Pt reports his knee felt good over the weekend. He has been wearing his compression sleeve fairly consistently and feels his swelling has reduced. He is able to perform stairs normally now and confidently. Contact monitoring: PPE used during therapy: Therapist was wearing the following PPE throughout entire session: surgicalmask and eye protection Patient was wearing a mask during therapy session: yes OBJECTIVE Pain: L knee soreness at end-range Range of Motion:?Left ?Right Knee Flexion/Extension 0-140 PROM:??2-124??deg PROM:??NT *Knee flexion measured in supine with PT assist??and??moderate??overpressure. ?? Observation: knee compression sleeve donned on L knee.Pt ambulates into therapy gym without SPC independently with minimal antalgic gait. TREATMENT Treatment today consisted of: Therapeutic Exercise: -sci-fit bike, L4, up to seat 12 x5 minutes -stationary bike, x7 minutes, seat 6 but progressed to seat 4 with no issues and able to make full revolutions in both directions -standing knee flexion stretch on second step, x20 repetitions -DL press, 50#, deep seat position for end-range flexion, 3x10 repetitions with 2 sec holds in flexion, able to hit leg press resting position consistently, had pt slid feet down on platform for more flexion -wall slides with stability ball to 90 deg knee flexion, 3x10 repetitions -supine heel slides with slider and aggressive overpressure pulses at end-range, 3x10 repetitions Home Exercise Program/Education: Continue TKA pathway. Patient reports good HEP compliance. Assessment Clinical Impression: Pt tolerated session well. He is demonstrating improved knee ROM to 124 deg of flexion with overpressure. Patient is having less pain and swelling which seemed to be impacting his ROM. He is able to ambulate without SPC and perform stairs well. Will continue to benefit from PT 2x/wk [...] week Plan for next session: progress ROM, strength, lunge into step ups Treatment/Interventions: Therapeutic exercise, Therapeutic functional activity, Gait training, Neuromuscular re-education, Manual therapy Time Spent with Patient Therapeutic Interventions Therapeutic Exercise (min): 34 min Time Tracking Total Timed Units (min): 34 min Total Treatment Time (min): 34 min documented in this encounter Plan of Treatment Upcoming Encounters Date Type Specialty Care Team Description 01/24/2022 Diagnostic Otorhinolaryngology Lara Snell Au.D. [address] [place], [place] [phone] 01/29/2022 Office Visit Orthopedic Surgery Laurie Dumont APRN , C.N.P., D.N.P. [address] [facility] [place] [phone] (Wo rk) documented as of this encounter Visit Diagnoses Diagnosis Primary Osteoarthritis Knee Left documented in this encounter Care Teams Manager Land Relationship Specialty Start Date End Date Elsewhere, Pcp PCP - General 06/07/19 documented as of this encounter
--- OUTSIDE RECORDS SUMMARY | 2022-01-23 19:35 | XMS_ITS | Encounter Summary ---
:1960 Author Organization [facility] Address [address] [place] [address] Care Team Providers Name Role Phone Elsewhere, Pcp Primary Care Provider Unavailable Reason for Referral Outpatient (Routine) - Closed Specialty Diagnoses / Procedures Referred By Contact Refer red To Contact Diagnoses Pain Knee Left Nieves Hunter APRN, [facility] [place] [facility] Procedures DX Knee Left 3 Views C.N.P., D.N.P. [address] [place] [phone] Referral ID Status Reason Start Date Expiration Date Visits Requ ested Visits Authorized [id number] Closed 10/23/2021 10/23/2022 1 1 Reason for Visit Outpatient (Routine) - Closed Specialty Diagnoses / Procedures Referred By Contact Refer red To Contact Diagnoses Pain Knee Left Nieves Hunter APRN, [facility] [place] [facility] Procedures DX Knee Left 3 Views C.N.P., D.N.P. [address] [place] [phone] Referral ID Status Reason Start Date Expiration Date Visits Requ ested Visits Authorized [id number] Closed 10/23/2021 10/23/2022 1 1 Encounter Details Date Type Department Care Team Description 10/23/2021 Hospital Encounter Department of Nieves Hunter, Pain Knee Left Radiology [place] D.N.P. [address] [phone] Social History Tobacco Use Types Packs/Day [...] or relatives? How often do you attend congregational or Patient refused 2021 latter-day services? Do you belong to any clubs or No 12/20/2021 organizations such as congregational groups, unions, fraternal or athletic groups, or [...] place to sleep or slept in a care home (including now)? Education Answer Date Recorded What is the highest level of school you have completed or 12 th grade 04/11/2021 the highest degree you have received? 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 lisinopriL Take 20 mg by 0 03/05/2021 (PRINIVIL,ZESTRIL) 20 mg mouth daily. tablet omeprazole (for_PriLOSEC) 20 Take 1 capsule by 0 02/05/2017 mg capsule mouth daily. acetaminophen (TYLENOL) 500 Take 2 tablets 0 07/1801/03/2022 mg tablet (1,000 mg total) by mouth every 6 (six) hours. diclofenac sodium (VOLTAREN) Take 1 tablet (75 60 tablet 0 10/23/2021 11/20/2021 75 mg EC tablet mg total) by mouth 2 (two) times a day. With food. oxyCODONE (ROXICODONE) 5 mg Take 1-2 tablets 50 tablet 0 01/03/2022 immediate release (5-10 mg total) tabletIndications: Prolonged by mouth every 4 Acute Pain/Traumatic Injury (four) hours as needed for pain Indication: Prolonged Acute Pain/Traumatic Injury. sennosides-docusate sodium Take 1 tablet by 60 tablet 0 01/03/2022 (SENOKOT-S) 8.6-50 mg per mouth 2 (two) tablet times a day. documented as of this encounter Plan of Treatment Upcoming Encounters Date Type Specialty Care Team Description 01/24/2022 Diagnostic Otorhinolaryngology Lara Snell Au.D. [address] [place], [place] [phone] 01/29/2022 Office Visit Orthopedic Surgery Laurie Dumont APRN , C.N.P., D.N.P. [address] [place], [place] [phone] (Wo rk) documented as of this encounter Procedures Procedure Name Priority Date/Time Associated Comments Diagnosis DX KNEE LEFT 3 RAD - Routine 10/23/2021 10:22 Pain Knee Left Result s for this VIEWS (most inpatients AM CDT procedure a re in and all the results outpatients) section. documented in this encounter Results DX Knee Left 3 [...] compartment of the right knee. Nieves Hunter APRN C.N.P., D.N.P. IMG DIAGNOSTIC IMAG ING PROCEDURES documented in this encounter Visit Diagnoses Diagnosis Pain Knee Left documented in this encounter Care Teams Senior Mainframe Developer Relationship Specialty Start Date End Date Elsewhere, Pcp PCP - General 06/07/19 documented as of this encounter
--- OUTSIDE RECORDS SUMMARY | 2022-01-23 19:35 | XMS_ITS | Clinical Summary ---
:1960 Author Organization [facility] Address [address] [place] [address] Care Team Providers Name Role Phone Elsewhere, Pcp Primary Care Provider Unavailable Source Comments Patient records contain information from all sites at [facility]. For routine questions regarding patient records, call [phone] during business hours, M-F 8:00 AM - 5:00 PM Central Time. Record requests for emergency care only can be directed to [phone] at any time.[facility] Allergies Active Allergy Reactions Severity Noted Date Comments Ibuprofen Hives 04/08/2019 Green gel capsu les only Nyquil Hives 03/05/2011 Medications Medication Sig Dispensed Refills Start End Date Status Date omeprazole Take 1 0 Active (for_PriLOSEC) 20 mg capsule by 7 capsule mouth daily. lisinopriL Take 20 mg by 0 Activ e (PRINIVIL,ZESTRIL) 20 mg mouth daily. 1 tablet hydroCHLOROthiazide Take 25 mg by 0 Active (HYDRODIURIL) 25 mg mouth daily. 1 tablet acetaminophen (TYLENOL) Take 2 0 Discontinued 500 mg tablet tablets 2 22 (1,000 mg total) by mouth every 6 (six) hours. sennosides-docusate Take 1 tablet 60 tablet 0 Discontinued sodium (SENOKOT-S) by mouth 2 2 22 8.6-50 mg per tablet (two) times a day. oxyCODONE (ROXICODONE) 5 Take 1-2 50 tablet 0 01/03 Discontinued mg immediate release tablets (5-10 2 22 tabletIndications: mg total) by Prolonged Acute mouth every 4 Pain/Traumatic Injury (four) hours as needed for pain Indication: Prolonged Acute Pain/Traumati c Injury. diclofenac sodium Take 1 tablet 60 tablet 2 01/04/20 Discontinued (VOLTAREN) 75 mg EC (75 mg total) 2 22 tablet by mouth 2 (two) times a day. With food. Active Problems Problem Noted Date Pain Knee Left 09/18/2021 Overview: Added automatically from request for nikia watkins [id number] Arthroplasty Total Knee Replacement Status Post Left 0 09/18/2021 Overview: Added automatically from request for nikia june [id number] Primary Osteoarthritis Knee Left 06/28/2021 Overview: Added automatically from request for nikia watkins [id number] Morbid Severe Obesity Due To Excess Calories Hypertension Essential Primary 04/10/2021 Gastroesophageal Reflux Disease Without Esophagitis Diverticulosis Of Large Intestine Without Perforation Or Abscess Without 03/05/2021 Bleeding Cyst Of Kidney Acquired 03/05/2021 Encounters Date Type Specialty Care Team Description 01/03/2022 Office Visit Occupational Medicine Sandra Sanches M.D. Transportation Examination Department Of [facility] (Prima ry Dx) 01/03/2022 Office Visit Occupational Medicine Sandra Sanches Commbrittney rcial Technical Operator Adrian Bui Medical Exam (Primary Dx) 12/31/2021 Clinical Otorhinolaryngology Neha Freeman Communication J 12/24/2021 Diagnostic Otorhinolaryngology Sim Renee, Kirstin Blount M.D. Conduct Alvaro Snell Sensorineural Au.DFarshad 12/14/2021 Clinical Support Physical Medicine and Rosy Mijares imary Rehabilitation Dk Bui, Osteoarthriti s Knee Adrian Left Juanpablo Pang, P.T. 12/12/2021 Clinical Orthopedic Surgery Nieves Hunter ts Communication L, FOLDING MACHINE SETTER, C.N.P., D.N.P. 12/11/2021 Office Visit Orthopedic Surgery Peter Mijares Total Dk Bui, Knee Replacemen t M.D. Status Post Left Nieves Hunter (Primary Dx) L, FOLDING MACHINE SETTER, C.N.P., D.N.P. 12/04/2021 Clinical Support Physical Medicine and Rosy Mijares imary Rehabilitation Dk Bui, Osteoarthriti s Knee M.D. Left Juanpablo Pang P.T. 11/30/2021 Clinical Orthopedic Surgery Eric Mijares M.D. 11/29/2021 Clinical Support Physical Medicine and Rosy Mijares imary Rehabilitation Dk Bui, Osteoarthriti s Knee M.D. Left Juanpablo Pang P.T. 11/27/2021 Clinical Support Physical Medicine and Rosy Mijares imary Rehabilitation Dk Bui, Osteoarthriti s Knee M.D. Left Yasmine Cherry P.T. 11/21/2021 Comprehensive Physical Medicine and Maryana, Arthr oplasty Total Knee Replacement Status Post Left; Visit Rehabilitation Dk Bui, Pain Knee Lef t Juanpablo Hunt, P.T. 11/20/2021 Office Visit Orthopedic Surgery DaleNieves nash Arthropla sty Total Knee Replacement Status Post Left (Primary Dx); L, ANA, Follow Up Exami [place] [facility] Postoperative Visit C.N.P., D.N.P. Laurie Dumont L, ANA, C.N.P., D.N.P. 11/08/2021 Clinical Support Physical Medicine and Rosy Mijares immarissa Rehabilitation Dk Bui, Osteoarthriti s Knee M.D. Left Maria Luisa Chaparro P.T. 11/06/2021 Clinical Support Physical Medicine and Rosy Mijares immarissa Rehabilitation Dk Bui, Osteoarthriti s Knee M.D. Left Maria Luisa Cahparro, P.T. 11/01/2021 Clinical Support Physical Medicine and Rosy Mijares immarissa Rehabilitation Dk Bui, Osteoarthriti s Knee M.D. Left Maria Luisa Chaparro, P.T. 10/30/2021 Clinical Support Physical Medicine and Rosy Mijares imary Rehabilitation Dk M, Osteoarthriti s Knee M.D. Left Maria Luisa Chaparro P.T. 10/29/2021 Orders Only Otorhinolaryngology Snell, Airika, Loss H earing Mixed Au.Racheal Conduct Sensorineural (Primary Dx) 10/25/2021 Clinical Support Physical Medicine and Rosy Mijares imary Rehabilitation Dk Bui, Osteoarthriti s Knee Adrian Left Maria Luisa Chaparro P.T. 10/23/2021 Hospital Encounter Radiology Nieves Hunter Pain Knee Left L, FOLDING MACHINE SETTER, C.N.P., D.N.P. 10/23/2021 Office Visit Orthopedic Surgery Nieves Hunter Pain Knee Left L, FOLDING MACHINE SETTER, (Primary Dx) C.N.P., D.N.P. from Last 3 Months Immunizations Name Administration Dates Next Due Influenza, Injectable, Mdck, 02/24/2021, 02/28/2018 Preservative Free, Quadrivalent Influenza, Injectable, Quadrivalent 02/20/2015 Influenza, Seasonal, Injectable 03/15/2016, 03/31/2012 Influenza, Unspecified 03/29/2014, 03/25/2013, 03/31/2012, 02/16/2011, 02/10/2009 SARS-COV-2 (COVID-19) - PFIZER (12 04/11/2021, 09/05/2020, 0 08/10/2020 years or older) Td (Adult), adsorbed 11/30/2004 Tdap 02/20/2015 influenza vaccine QV(FLUBLOK) (18 04/05/2019 years or older) (PF) influenza vaccine quad 04/11/2017 (FLUZONE/FLUARIX) (6 months and older)(PF) Family History Medical History Relation Name Comments Prostate cancer Brother Jayjay Heart attack Mother Hyperlipidemia Mother Hypertension Mother Anesthesia problems Neg Hx Relation Name Status Comments Brother Jayjya Mother (Age 68) Cause of ; heart problems Social History Tobacco Use Types Packs/Day Years [...] attend latter day or Patient refused 2021 christianity services? Do you belong to any clubs or No 12/20/2021 organizations such as latter day groups, unions, [employer] or athletic groups, or school groups? 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D. [address] [place], [place] [phone] 01/29/2022 Office Visit Orthopedic Surgery Laurie Dumont, ANA , C.N.P., D.N.P. [address] [place], [place] [phone] (Wo rk) Health Maintenance Due Date Last Done Comments CT Colonography 1960 Cologuard 1960 FIT 1960 HIV Screening 1960 Hepatitis C Screening 1960 Lipid (Cholesterol) 1960 Screening Zoster Vaccines (1 of 2) 2008 Influenza Vaccine (#1) 2022 02/24/2021, 04/05/2019, 02/28/2018, Additional history exists Creatinine Level 07/17/2022 07/17/2021, 04/13/2021, 07/22/2011 Potassium Level 07/17/2022 07/17/2021, 04/13/2021 Sodium Level 07/17/2022 07/17/2021, 04/13/2021 Office Visit for Blood 01/03/2023 01/03/2022 Pressure Check / Re-check Fasting Glucose for 07/17/2024 07/17/2021 Diabetes Screening DTaP,Tdap,and Td Vaccines 02/20/2025 02/20/2015, 11/30/2004 (2 - Td or Tdap) Colonoscopy 04/18/2026 04/18/2021, 04/18/2021, 12/12/2009 Colorectal Cancer Screening 04/18/2026 Depression Screening Completed 07/17/2021 (Annual PHQ-2) COVID-19 Vaccine Completed 10/19/2021, 04/11/2021, 09/05/2020, Additional history exists Pneumococcal vaccine (0-64 Aged Out No lo nger eligible years) based on patient 's age to complete this topic Medical Devices Implanted Type Area Utility Worker Forge Device Shelf Model / Identifier Expiration Serial / Date Lot Hardware E.G. Hardware Left: Pins/Screws/R e.g. Wrist ods pins/screws/ rods Description: Wrist fracture - open. open reduction and internal fixation of left wrist fracture 1994 [employer] Tritanium Symmetric Patella Knee Implant Left: Knee Str yker [id number] 06/28/2025 [id number] / Implanted: Qty: 1 on 08/06/2021 by Dk Perez M.D. at [facility] / [id number] Procedures Procedure Name Priority Date/Time Associated Comments Diagnosis URINALYSIS, DIPSTICK Routine 01/03/2022 Results for 10:07 AM CDT this procedure are in the results section. C-REACTIVE PROTEIN Routine 12/11/2021 4:13 Arthroplasty Total Results for (CRP), S/P PM CDT Knee Replacement this proced ure Status Post Left are in the results section. SEDIMENTATION RATE, Routine 12/11/2021 4:13 Arthroplasty Total Results for B PM CDT Knee Replacement this proced ure Status Post Left are in the results section. DX KNEE LEFT 3 VIEWS RAD - Routine 10/23/2021 Pain Knee Left Resu lts for (most inpatients 10:22 AM CDT this proced ure and all are in the outpatients) results section. from Last 3 Months Results (ABNORMAL) Urinalysis, Dipstick (01/03/2022 10:07 AM CDT) athologist Signature Source VOID 01/03/2022 RWOM 10:07 [...] 8.0 01/03/2022 10:07 AM CDT RWOM Specific [place] 1.020 1.001 - 1.035 01/03/2022 10:07 AM CDT RWOM Urobilinogen 0.2 0.2 - 1.0 mg/dL 01/03/2022 10:07 AM C DT RWOM Specimen Anatomical Collection Method Collection Time Receive d Time (Source) Location / / Volume Laterality Urine 01/03/2022 10:07 01/03/2022 AM CDT 10:14 AM CDT Generic Rals LAB URINE ORDERABLES Performing Organization Address City/State/ZIP Code Phon e Number [facility] [address] [place] [address] MEDICINE RW[place] [address] Occupational Medicine [address] Sedimentation Rate (12/11/2021 4:13 PM CDT) Analysis Performed At Patho logist Time Signature Sedimentation 14 0 - 22 12/11/2021 RDWG Rate, B mm/1 h 7:48 PM CDT Specimen Anatomical Collection Method Collection Time Receive d Time (Source) Location / / Volume Laterality Blood (Blood, 12/11/2021 4:13 PM 12/12/19 7:15 Venous) CDT PM CDT Nieves Hunter APRN, Rosaura.N.P., D.N.P. LAB BLOOD ADD-ON Performing Organization Address City/State/ZIP Code Phon e Number [facility]- [address] [place], [place] [address] [facility] [place] [address] System in [place] [address] CRP (C-Reactive Protein) (12/11/2021 4:13 PM CDT) P athologist Signature C-Reactive <3.0 <=8.0 mg/L 12/11/2021 CNFL Protein (CRP), 4:39 PM CDT P Specimen Anatomical Collection Method Collection Time Receive d Time (Source) Location / / Volume Laterality Blood (Blood, 12/11/2021 4:13 PM 12/12/19 4:14 Venous) CDT PM CDT Nieves Hunter APRN, C.N.P., D.N.P. LAB BLOOD ADD-ON Performing Organization Address City/State/ZIP Code Phon e Number [facility]- [address] [place] [address] [place] [address] [place] [address] System in [place] [id number] [place] [address] Bl DX Knee Left 3 Views (10/23/2021 10:22 [...] the medial compartment of the right knee. Kaylee Mello APRNN.PFarshad, D.N.P. IMG DIAGNOSTIC IMAG ING PROCEDURES from Last 3 Months Insurance Payer Benefit Plan / Subscriber ID Effective Phone Address T e Group Dates TRAVELERS TRAVELERS [id number] 2021-Pre [address] Indemn ity INSURANCE INSURANCE sent [id number] [place] [address] [facility] [id number] 2019-Pres [phone] [address] BLUE SHIELD ent [phone] [place] [address] Advance Directives For more information, please contact: [phone] Latest Code Status on File Code Status Date Activated Date Inactivated Comments Full Code 08/06/2021 12:13 PM 08/07/2021 2:17 PM Full Code: Not Discussed Due to: Patient not available Care Teams Mechanism Assembler Relationship Specialty Start Date End Date Elsewhere, Pcp PCP - General 06/07/19
--- OUTSIDE RECORDS SUMMARY | 2022-01-23 19:36 | XMS_ITS | Encounter Summary ---
:1960 Author Organization [facility] Address [address] [place] [address] Care Team Providers Name Role Phone Elsewhere, Pcp Primary Care Provider Unavailable Reason for Referral Outpatient (Routine) - Closed Specialty Diagnoses / Procedures Referred By Contact Refer red To Contact Orthopedic Surgery Diagnoses recheck Laurie Dumont, ANA, DALJIT [facility] C.N.P., D.N.P. [address] [phone] Referral ID Status Reason Start Date Expiration Date Visits Requ ested Visits Authorized [id number] Closed 10/03/2021 10/03/2022 1 1 Reason for Visit Auth/Cert Specialty Diagnoses / Procedures Referred By Contact Refer red To Contact Diagnoses Pain Knee Left Arthroplasty Total Knee Replacement Status Post Left Pain Knee Left [M25.562] Arthroplasty Total Knee Replacement Status Post Left [Z96.652] Procedures OH MANIP KNEE JT W ANES MANIPULATION KNEE Referral ID Status Reason Start Date Expiration Date Visits Requ ested Visits Authorized [id number] 1 1 Encounter Details Date Type Department Care Team Description 10/03/2021 Hospital Encounter [facility] OR Dk Mijares Pain Knee Left; Zehra Bui M.D. Arthroplasty Total Knee Replacement Stat us Post Left JULIAN LASSITER [address] [place] [address] JULIAN Lassiter [phone] Social History Tobacco Use Types Packs/Day [...] or relatives? How often do you attend judaism or Patient refused 2021 worship services? Do you belong to any clubs or No 12/20/2021 organizations such as judaism groups, unions, fraternal or athletic groups, or [...] place to sleep or slept in a prison (including now)? Education Answer Date Recorded What is the highest level of school you have completed or 12 th grade 04/11/2021 the highest degree you have received? 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 documented as of this encounter Last Filed Vital Signs Vital Sign Reading Time Taken Comments Blood Pressure 113/78 10/03/2021 12:15 PM CDT Pulse 59 10/03/2021 12:30 PM CDT Temperature 36.2 ??C (97.2 ??F) 10/03/2021 11:45 AM CDT Respiratory Rate 20 10/03/2021 11:05 AM CDT Oxygen Saturation 99% 10/03/2021 12:30 PM CDT Inhaled Oxygen Concentration - - Weight 117 kg (258 lb 9.6 oz) 10/03/2021 9:55 AM CDT Height 182.9 cm (6' 0.01) 10/03/2021 9:55 AM CDT Body Mass Index 35.06 10/03/2021 9:55 AM CDT documented in this encounter Medications at Time of Discharge Medication Sig Dispensed Refills Start Date End Date hydroCHLOROthiazide Take 25 mg by 0 03/05/2021 (HYDRODIURIL) 25 mg tablet mouth daily. lisinopriL Take 20 mg by 0 03/05/2021 (PRINIVIL,ZESTRIL) 20 mg mouth daily. tablet omeprazole (for_PriLOSEC) Take 1 capsule by 0 20 mg capsule mouth daily. acetaminophen (TYLENOL) Take 2 tablets 0 08/08/19 22 01/03/2022 500 mg tablet (1,000 mg total) by mouth every 6 (six) hours. oxyCODONE (ROXICODONE) 5 Take 1-2 tablets 50 tablet 0 10/0310/18/2021 mg immediate release (5-10 mg total) by tabletIndications: mouth every 4 Prolonged Acute (four) hours as Pain/Traumatic Injury needed for pain Indication: Prolonged Acute Pain/Traumatic Injury. sennosides-docusate sodium Take 1 tablet by 60 tablet 0 01/03/2022 (SENOKOT-S) 8.6-50 mg per mouth 2 (two) tablet times a day. aspirin 81 mg chewable Chew 1 tablet (81 100 tablet 0 202110/23/2021 tablet mg total) 2 (two) times a day with meals. Recommended to minimize risk of blood clot. Once completed, resume the usual dose of aspirin your primary provider may recommend. ketoconazole (NIZORAL) 2 % Apply 1 240 mL 5 8 10/23/2021 shampoo application topically daily. documented as of this encounter OR Notes Op Note - Dk Mijares M.D. - 10/03/2021 10:41 AM CDT Pre-op Diagnosis Pain Knee Left,Arthroplasty Total Knee Replacement Status Post Left Post-op Diagnosis Pain Knee Left,Arthroplasty Total Knee Replacement Status Post Left PRE-OPERATIVE DIAGNOSIS Arthrofibrosis left knee, status post total knee arthroplasty. POST-OPERATIVE DIAGNOSIS Arthrofibrosis left knee, status post total knee arthroplasty. PROCEDURE: Manipulation under anesthesia left knee. SURGEON: Dk Mijares MD. INDICATIONS: Hussein is a 61-year-old man who is status post left total knee arthroplasty. He was doing well except for having lack of full flexion and range of motion. We discussed risks, benefits, and alternatives to manipulation under anesthesia with him. He understands these and desires to proceed with surgery. OPERATIVE NOTE NARRATIVE Patient was brought to the operating room and placed on the operating table in the supine position. General anesthesia was smoothly induced. We then obtained pictures. He was able to get full extensionand flexion to approximately 90-95 degrees. We were able to then gradually bring him up into flexionwith palpable and audible release of scar tissue up to approximately 120 degrees. Once that was completed, final pictures were obtained. Patient was then awakened and transferred to recovery in good condition. Dk Mijares M.D. documented in this encounter Plan of Treatment Upcoming Encounters Date Type Specialty Care Team Description 01/24/2022 Diagnostic Otorhinolaryngology Lara Snell Au.D. [address] [place], [place] [phone] 01/29/2022 Office Visit Orthopedic Surgery Laurie Dumont, ANA , C.N.P., D.N.P. [address] [place], [place] [phone] (Wo rk) Scheduled Referrals Name Type Priority Associated Order Schedule Diagnoses Orthopedic Surgery Outpatient Referral Routine Ex pected: office visit 10/05/2021 (clinic) (Approximate), Expires: 10/03/2024 documented as of this encounter Procedures Procedure Name Priority Date/Time Associated Diagnosis Comme nts ADULT OXYGEN THERAPY Routine 10/03/2021 11:07 AM CDT MANIPULATION KNEE 10/03/2021 10:34 AM Pain Knee Left CDT Arthroplasty Total Knee Replacement Status Post Left documented in this encounter Visit Diagnoses Diagnosis Pain Knee Left Arthroplasty Total Knee Replacement Stat us Post Left documented in this encounter Admitting Diagnoses Diagnosis Pain Knee Left Arthroplasty Total Knee Replacement Stat us Post Left documented in this encounter Administered Medications Inactive Administered Medications - up to 3 most recent administrations Medication Order MAR Action Action Date Dose Rate Site acetaminophen tablet 1,000 mg Given 10/03/2021 10:04 AM CDT 1,00 0 mg (TYLENOL) 1,000 mg, oral, Once, On Fri10/03/21 at 0945, For 1 dose, Pre-Op lactated ringers Rate/Dose Verify 10/03/2021 10:47 AM CDT 20 mL/hr 20 mL/hr, intravenous, Continuous, Starting on Fri10/03/21 at 0945, Pre-Op New Bag 10/03/2021 10:29 AM CDT 20 mL/hr 20 mL/hr metoprolol tablet 12.5 mg (LOPRESSOR) 12.5 mg, oral, Once as needed, if patien t did not take their last scheduled dose of beta blair prior to arrival, Starting on Fri10/03/21 at 0941, For 1 dose, Pre-Op, Do not give if patient does not take scheduled beta bl ockers, if patient is receiving intravenous vasopressors or inotropes, if he art rate is less than 50 beats per minute, if systolic blood pres sure is less than 90 mmHg or if diastolic blood pressure is less than 40 mmHg, or if patient has an allergy to metoprolol. sodium chloride 0.9 % injection 10 mL 10 mL, intravenous, As needed, line care , Starting on Fri10/03/21 at 0941, Pre-Op, Peripheral Intravenous Catheter and Rapid Infusion Cat heter, prior to blood sampling, post blood transfusion or post blood samplin g sodium chloride 0.9 % injection 3 mL 3 mL, intravenous, As needed, line care, Starting on Fri10/03/21 at 0941, Pre-Op, Prior to and following infusion and betw een multiple consecutive infusions: sodium chloride 0.9 % injection sodium chloride 0.9 % injection 3 mL 3 mL, intravenous, Every 12 hours scheduled, First dos e on Fri10/03/21 at 2100, Pre-Op, Peripheral Intravenous Catheter and Rapid Infu isadora Catheter, when no infusion to maintain patency documented in this encounter Active and Recently Administered Medications Times are shown in CDT. Scheduled Medication Order 10/01/2021 10/02/2021 10/03/2021 acetaminophen tablet 1,000 mg (TYLENOL) (COMPLETED) 1004 (Given - Provider: Sheri Gracia R.N.) 1,000 mg, oral, Once, On Fri10/03/21 at 0945, For 1 dose, Pre-Op lidocaine 10 mg/mL (1 %) injection 1 mL (XYLOCAINE) 0945 (Due) 1 mL, infiltration, Once, On Fri10/03/21 at 0945, For 1 dose, Pre-Op, May admin up to 1 mL at the site of IV site if not allergic to lidocaine sodium chloride 0.9 % injection 3 mL 3 mL, intravenous, Every 12 hours schedu led, First dose on Fri10/03/21 at 2100, Pre-Op, Peripheral Intravenous Catheter and Rapid Infusion Catheter, when no infusion to maintain patency sodium chloride 0.9 % injection 3 mL 3 mL, intravenous, Every 12 hours schedu led, First dose on Fri10/03/21 at 2100, Pre-Op, Peripheral Intravenous Catheter and Rapid Infusion Catheter, when no infusion to maintain patency Continuous Medication Order 10/01/2021 10/02/2021 10/03/2021 lactated ringers 1029 (New Bag - Provider: Janae Little R.N.)1047 (Rate/Dose Verify - Provider: Ekaterina Noble APRN, TEENA)1106 (Anesthesia Volume Adjustment - Provider: Ekaterina Noble APRN, TEENA)1230 (Stopped - Provider: Sheri Gracia R.N.) 20 mL/hr, intravenous, Continuous, Starting on Fri10/03/21 at 09 45, Pre-Op PRN Medication Order 10/01/2021 10/02/2021 10/03/2021 fentaNYL injection 25 mcg (SUBLIMAZE) 25 mcg, intravenous, Every 2 min PRN, Fo r pain 4 or greater (maximum 100 mcg). If max dose of Fentanyl is reached and if pain is greater than 4, discontinue Fentanyl: give Hydromorphone, Starting on Fri10/03/21 at 1107, PACU (only) HYDROmorphone injection 0.5 mg (DILAUDID) 0.5 mg, intravenous, Every 5 min PRN, mo derate pain or score 4-6 of 10, severe pain or score 7-10 of 10, Starting on Fri10/03/21 at 1107, For 4 doses, PACU (only), Up to maximum total dose of 2 mg metoprolol tablet 12.5 mg (LOPRESSOR) 12.5 mg, oral, Once as needed, if patien t did not take their last scheduled dose of beta blair prior to arrival, Starting on Fri10/03/21 at 0941, For 1 dose, Pre-Op, Do not give if patient does not ta ke scheduled beta blockers, if patient i s receiving intravenous vasopressors or inotropes, if heart rate is less than 50 beats per minute, if systolic blood pressure is less than 90 mmHg or if diastolic blood pressure is less than 40 mmHg, or if patient has an allergy to metoprolol. sodium chloride 0.9 % injection 10 mL 10 mL, intravenous, As needed, line care , Starting on Fri10/03/21 at 0941, Pre- Op, Peripheral Intravenous Catheter and Rapid Infusion Catheter, prior to blood sampling, post blood transfusion or post blood sampling sodium chloride 0.9 % injection 10 mL 10 mL, intravenous, As needed, line care , Starting on Fri10/03/21 at 0941, Pre- Op, Peripheral Intravenous Catheter and Rapid Infusion Catheter, prior to blood sampling, post blood transfusion or post blood sampling sodium chloride 0.9 % injection 3 mL 3 mL, intravenous, As needed, line care, Starting on Fri10/03/21 at 0941, Pre- Op, Prior to and following infusion and between multiple consecutive infusions: sodium chloride 0.9 % injection sodium chloride 0.9 % injection 3 mL 3 mL, intravenous, As needed, line care, Starting on Fri10/03/21 at 0941, Pre- Op, Prior to and following infusion and between multiple consecutive infusions: sodium chloride 0.9 % injection documented in this encounter Care Teams Sewer Hand Relationship Specialty Start Date End Date Elsewhere, Pcp PCP - General 06/07/19 documented as of this encounter
--- OUTSIDE RECORDS SUMMARY | 2022-01-23 19:36 | XMS_ITS | Encounter Summary ---
:1960 Author Organization [facility] Address [address] [place] [address] Care Team Providers Name Role Phone Elsewhere, Pcp Primary Care Provider Unavailable Reason for Visit Physical Therapy (Routine) - Authorized Specialty Diagnoses / Procedures Referred By Contact Refer red To Contact Diagnoses Primary Osteoarthritis Knee Left Dk Mijares M.D. [facility] Procedures PT Ongoing treatment [address] [place] [phone] Referral ID Status Reason Start Date Expiration Date Visits V isits Requested Authorized [id number] Authorized 08/10/2021 05/18/2022 40 40 Encounter Details Date Type Department Care Team Description 08/30/2021 Clinical Support Department of Dk Mijares M.D. [address] [place] [phone] Primary Rehabilitation Dian Clarke, P.T. [address] [place], [place] [address] [place] [address] Osteoarthritis Knee Services in [address] [phone] Social History Tobacco Use Types Packs/Day Years Used Date Smoking Tobacco: Former Smokeless Tobacco: Never Alcohol Habits Answer Date Recorded How often do you have a drink containing alcohol? Patient re fused 12/20/2021 How many drinks containing alcohol do you have on a 1 or 2 06/24/2021 typical day when you are drinking? How often do you have six or more drinks on one Never 06/24/2021 occasion? Comment: Not asked Social Isolation Answer Date Recorded In a typical week, how many times do you More than three shay es a week 12/20/2021 talk on the phone with family, friends, or neighbors? How often do you get together with friends Twice a week 12/20/2021 or relatives? How often do you attend hoahaoism or Patient refused 2021 denominational services? Do you belong to any clubs or No 12/20/2021 organizations such as hoahaoism groups, unions, fraInterviu Me or athletic groups, or school groups? How [...] place to sleep or slept in a custodial (including now)? Education Answer Date Recorded What is the highest level of school you have completed or 12 th grade 04/11/2021 the highest degree you have received? 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 - 08/30/2021 2:45 PM CDT Physical Therapy Outpatient Treatment Note SUBJECTIVE Patient's Name: Hussein Osiel Panfilo Referring Provider: Dk Mijares M.D. Visit Diagnosis: 1. Primary Osteoarthritis Knee Left Payor: [employer] / Plan: [employer] / Product Type: Indemnity / PT Next Certification Date: 08/08/2021 [facility] Visit Count: 7 Patient comments: Patient has been having increased pain over the last couple days. Contact monitoring: PPE used during therapy: Therapist was wearing the following PPE throughout entire session: surgicalmask Patient was wearing a mask during therapy session: yes Additional Staff Present During Session: no OBJECTIVE Pain: increased left knee pain, not rated on pain scale Ortho Exam Left knee 0-100 degrees Independent SLR with mild extension lag. Ambulating with a straight cane safely and independently, mildly antalgic. TREATMENT Treatment today consisted of: Performed Sci-Fit Total body ergometer x8 minutes at a level 1 resistance. ??Performed standing kneeflexion utilizing a stretch times 15 repetitions. Standing partial squats x 15 reps. Leg press for knee range of motion and light strengthening at 30 lb at ??3 x??10 repetitions. ??Performed passive range of motion in a seated position for knee flexion. ??Knee range of motion was measured in supine. ??Performed patellar mobilizations. ??Perform straight leg raises x 5 reps. ?? Home Exercise Program/Education: TKA pathway Pt reports good compliance with his HEP. Assessment Clinical Impression: Tolerated treatment session well. Improved ROM today and gradually improving strength. Functional Goals and Timeframes: PT Goal #1: Patient will demonstrate knee range of motion 0-120 degrees left lower extremity. PT Goal #1 Date: 09/21/2021 PT Goal #2: Patient will demonstrate independent straight leg raise times 10 repetitions without extension lag. PT Goal #2 Date: 09/21/2021 PT Goal #3: Patient will ambulate safely independently without the use an assistive device with a nonantalgic gait pattern. PT Goal #3 Date: 09/21/2021 PT Goal #4: Patient will negotiate a flight of steps with reciprocal gait pattern and use of a single hand rail without compensation. PT Goal #4 Date: 09/21/2021 Plan Plan for next session: ROM and quad strengthening. Time Spent with Patient Therapeutic Interventions Manual Therapy (min): 8 min Therapeutic Exercise (min): 15 min Time Tracking Total Timed Units (min): 23 min Total Treatment Time (min): 23 min documented in this encounter Plan of Treatment Upcoming Encounters Date Type Specialty Care Team Description 01/24/2022 Diagnostic Otorhinolaryngology Lara Snell Au.D. [address] [place], [place] [phone] 01/29/2022 Office Visit Orthopedic Surgery Laurie Dumont APRN , C.N.P., D.N.P. [address] [place], [place] [phone] (Wo rk) documented as of this encounter Visit Diagnoses Diagnosis Primary Osteoarthritis Knee Left documented in this encounter Care Teams Dividend Clerk Relationship Specialty Start Date End Date Elsewhere, Pcp PCP - General 06/07/19 documented as of this encounter
--- OUTSIDE RECORDS SUMMARY | 2022-01-23 19:36 | XMS_ITS | Encounter Summary ---
:1960 Author Organization [facility] Address [address] [place] [address] Care Team Providers Name Role Phone Elsewhere, Pcp Primary Care Provider Unavailable Reason for Visit Physical Therapy (Routine) - Authorized Specialty Diagnoses / Procedures Referred By Contact Refer red To Contact Diagnoses Primary Osteoarthritis Knee Left Dk Mijares M.D. [facility] Procedures PT Ongoing treatment [address] [place] [address] Referral ID Status Reason Start Date Expiration Date Visits V isits Requested Authorized [id number] Authorized 08/10/2021 05/18/2022 40 40 Encounter Details Date Type Department Care Team Description 09/11/2021 Clinical Support Department of Dk Mijares M.D. [address] [place] [phone] Primary Rehabilitation Dian Clarke, P.T. [address] [place], [place] [address] [address] Osteoarthritis Knee Services in [address] [phone] Social History Tobacco Use Types Packs/Day Years [...] or relatives? How often do you attend holiness or Patient refused 2021 hinduism services? Do you belong to any clubs or No 12/20/2021 organizations such as holiness groups, unions, fraRegulus Therapeutics or athletic groups, or school groups? 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 - 09/11/2021 9:15 AM CDT Physical Therapy Outpatient Treatment Note SUBJECTIVE Patient's Name: Hussein Osiel Panfilo Referring Provider: Dk Mijares M.D. Visit Diagnosis: 1. Primary Osteoarthritis Knee Left Payor: [employer] / Plan: [employer] / Product Type: Indemnity / PT Next Certification Date: 08/08/2021 [facility] Visit Count: 10 Patient comments: Patient continues to have difficulty sleeping at night. Contact monitoring: PPE used during therapy: Therapist was wearing the following PPE throughout entire session: surgicalmask Patient was wearing a mask during therapy session: yes Additional Staff Present During Session: no OBJECTIVE Pain: left knee pain, intermittent and varies in intensity. Ortho Exam Left knee active ROM 0-105 degrees. Left knee passive ROM 0-107 degrees. ? Independent SLR with mild extension lag. ?? Ambulating with a straight cane safely and independently, mildly antalgic. ?? TREATMENT Treatment today consisted of: Performed??Sci-Fit Total body ergometer x8 minutes at a level 1 resistance beginning at seat position 22 and ending at 19.. ??Performed standing knee flexion utilizing a stretch times 15??repetitions. Patient negotiated a flight of steps with bilateral hand rails reciprocal gait pattern. Mild hip hikenoted on descending the stairs.?Standing partial squats x 10 reps.?Leg press 50# for knee range of motion and light strengthening at ??3??x??10 repetitions. ??Performed passive range of motion bharat seated position for knee flexion. ??Knee range of motion was measured in supine. ??Performed patellar mobilizations. ??Perform straight leg raises x 10 reps. Prolonged knee extension stretches 2 x 30seconds. Home Exercise Program/Education: TKA protocol Pt reports good compliance with his HEP. Assessment Clinical Impression: Patient is s/p left TKA x 5 weeks. He has regained functional strength. ROM andgait limitations continue to be noted progressing as anticipated. He will continue to benefit from skilled PT to return to previous level of function. Functional Goals and Timeframes: PT Goal #1: Patient will demonstrate knee range of motion 0-120 degrees left lower extremity. PT Goal #1 Date: 09/21/2021 PT Goal #1 Status: Progressing PT Goal #2: Patient will demonstrate independent straight leg raise times 10 repetitions without extension lag. PT Goal #2 Date: 09/21/2021 PT Goal #2 Status: Progressing PT Goal #3: Patient will ambulate safely independently without the use an assistive device with a nonantalgic gait pattern. PT Goal #3 Date: 09/21/2021 PT Goal #3 Status: Progressing PT Goal #4: Patient will negotiate a flight of steps with reciprocal gait pattern and use of a single hand rail without compensation. PT Goal #4 Date: 09/21/2021 PT Goal #4 Status: Progressing Plan Plan for next session: ROM, strengthening and gait training. Time Spent with Patient Therapeutic Interventions Manual Therapy (min): 10 min Therapeutic Exercise (min): 20 min Time Tracking Total Timed Units (min): 30 min Total Treatment Time (min): 30 min documented in this encounter Plan of Treatment Upcoming Encounters Date Type Specialty Care Team Description 01/24/2022 Diagnostic Otorhinolaryngology Lara Snell Au.D. [address] [facility], [place] [phone] 01/29/2022 Office Visit Orthopedic Surgery Laurie Dumont APRN C.N.P., D.N.P. [address] [facility], [place] [phone] (Wo rk) documented as of this encounter Visit Diagnoses Diagnosis Primary Osteoarthritis Knee Left documented in this encounter Care Teams Thermal Engineer Relationship Specialty Start Date End Date Elsewhere, Pcp PCP - General 06/07/19 documented as of this encounter
--- OUTSIDE RECORDS SUMMARY | 2022-01-23 19:36 | XMS_ITS | Encounter Summary ---
:1960 Author Organization [facility] Address [address] [place] [address] Care Team Providers Name Role Phone Elsewhere, Pcp Primary Care Provider Unavailable Reason for Referral Outpatient (Routine) - Closed Specialty Diagnoses / Procedures Referred By Contact Refer red To Contact Diagnoses Aftercare Total Knee Arthroplasty Nieves Hunter APRN, [facility] [place] [facility] Procedures DX Knee Left 3 Views C.N.P., D.N.P. [address] [place] [phone] Referral ID Status Reason Start Date Expiration Date Visits Requ ested Visits Authorized [id number] Closed 08/21/2021 08/21/2022 1 1 Reason for Visit Outpatient (Routine) - Closed Specialty Diagnoses / Procedures Referred By Contact Refer red To Contact Diagnoses Aftercare Total Knee Arthroplasty Nieves Hunter APRN, [facility] [place] [facility] Procedures DX Knee Left 3 Views C.N.P., D.N.P. [address] [place] [address] Referral ID Status Reason Start Date Expiration Date Visits Requ ested Visits Authorized [id number] Closed 08/21/2021 08/21/2022 1 1 Encounter Details Date Type Department Care Team Description 08/21/2021 Hospital Encounter Department of Nieves Hunter, After care Total Knee Radiology in [place], C.N.PFarshad, [place], [place] D.N.P. [address] [phone] Social History Tobacco Use Types Packs/Day [...] attend latter day or Patient refused 2021 druze services? 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 aspirin 81 mg chewable Chew 1 tablet (81 100 tablet 0 202110/23/2021 tablet mg total) 2 (two) times a day with meals. Recommended to minimize risk of blood clot. Once completed, resume the usual dose of aspirin your primary provider may recommend. ketoconazole (NIZORAL) 2 % Apply 1 240 mL 5 8 10/23/2021 shampoo application topically daily. oxyCODONE (ROXICODONE) 5 Take 1-2 tablets 50 tablet 0 08/2110/03/2021 mg immediate release (5-10 mg total) by [...] 01/24/2022 Diagnostic Otorhinolaryngology Lara Snell Au.D. [address] [place], [place] [phone] 01/29/2022 Office Visit Orthopedic Surgery Laurie Dumont, WELDER TACK , C.N.P., D.N.P. [address] [place], [place] [phone] (Wo rk) documented as of this encounter Procedures Procedure Name Priority Date/Time Associated Comments Diagnosis DX KNEE LEFT 3 RAD - Routine 08/21/2021 9:57 Aftercare Total Result s for this VIEWS (most inpatients AM CDT Knee Arthroplasty proced ure are in and all the results outpatients) section. documented in this encounter Results DX Knee Left 3 Views (08/21/2021 9:57 AM CDT) Anatomical Region Laterality Modality Lower Extremity, Knee, Musculoskeletal RST LOS, Left Digital Radiography Musculoskeletal ARZ LOS, Muskuloskeletal FLA LOS Specimen (Source) Anatomical Collection Method Collection Time Re ceived Time Location / / Volume Laterality 08/21/2021 11:32 AM CDT Impressions 08/21/2021 11:33 AM CDT Left TKA. No hardware failure or loosening. Knee joint effusion and/or synovitis. Soft tissue swelling. Narrative 08/21/2021 11:33 AM CDT EXAM: ??DX KNEE LEFT 3 VIEWS Procedure Note Selvin De Leon M.D. - 08/21/2021Forma tting of this note might be different from the original. EXAM: DX KNEE LEFT 3 VIEWS IMPRESSION: Left TKA. No hardware failure or looseni ng. Knee joint effusion and/or synovitis. Soft tissue swelling. Nieves Hunter APRN, C.N.P., D.N.P. IMG DIAGNOSTIC IMAG ING PROCEDURES documented in this encounter Visit Diagnoses Diagnosis Aftercare Total Knee Arthroplasty documented in this encounter Care Teams Construction Equipment Technician Relationship Specialty Start Date End Date Elsewhere, Pcp PCP - General 06/07/19 documented as of this encounter
--- OUTSIDE RECORDS SUMMARY | 2022-01-23 19:36 | XMS_ITS | Encounter Summary ---
:1960 Author Organization [facility] Address [address] [place] [address] Care Team Providers Name Role Phone Elsewhere, Pcp Primary Care Provider Unavailable Reason for Visit Physical Therapy (Routine) - Authorized Specialty Diagnoses / Procedures Referred By Contact Refer red To Contact Diagnoses Primary Osteoarthritis Knee Left Dk Mijares M.D. [facility] Procedures PT Ongoing treatment [address] [place] [phone] Referral ID Status Reason Start Date Expiration Date Visits V isits Requested Authorized [id number] Authorized 08/10/2021 05/18/2022 40 40 Encounter Details Date Type Department Care Team Description 10/05/2021 Clinical Support Department of Dk Mijares M.D. [address] [place] [phone] Primary Rehabilitation Maria Luisa Chaparro, P.T. Osteoarthritis Knee Services [place] [address] [place] [phone] Social History Tobacco Use Types Packs/Day Years [...] or relatives? How often do you attend baptism or Patient refused 2021 anabaptist services? Do you belong to any clubs or No 12/20/2021 organizations such as baptism groups, unions, fraConsulting Services or athletic groups, or school groups? 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 - 10/05/2021 2:30 PM CDT Physical Therapy Outpatient Treatment Note By co-signing this note, the provider certifies the therapy being provided to this patient is reasonable and necessary for the diagnosis or treatment of this patient. SUBJECTIVE Patient's Name: Hussein Whittaker Referring Provider: Dk Mijares M.D. Visit Diagnosis: 1. Primary Osteoarthritis Knee Left Reason for Referral: PT eval and treat Onset Date: 10/03/21 Payor: [employer] / Plan: [employer] / Product Type: Indemnity / PT Next Certification Date: 08/08/2021 [facility] Visit Count: 1 History of Present Illness: Patient is a 61-year-old male who is status post left knee manipulation on 10/03/21. Patient/Caregiver Goals: to improve motion and functional mobility Patient comments: Pt reports he is doing well since his manipulation. He is sleeping throughout the night with pain medication and Tylenol. He has returned to using an ice machine which helps with paincontrol. He is using the CPM machine 5 hours per day and has it maxed out to the 120 deg range. Contact monitoring: PPE used during therapy: Therapist was wearing the following PPE throughout entire session: surgicalmask and eye protection Patient was wearing a mask during therapy session: yes OBJECTIVE Pain: Pain Assessment Pain Assessment: 0-10 Numeric Pain Intensity Scale Pain Score: 2 Pain Type: Surgical pain Pain Location: Knee Pain Orientation: Left Patient presents with FOTO functional status score of 44 (MCII: 12 and MDC: 9) indicating general function at stage 2. The risk adjusted functional status score is 40. Patient is predicted to have 26 points of functional status change in 18 visits over 62 days based on normative data. Observation: Swelling measured at mid-patellar line in supine, 41 cm on R, 49 cm on L Mobility/Transfers: Independent with all transfers. Gait/Stairs: Pt ambulates with SPC in R UE with reciprocal gait pattern. Minimal antalgic gait with decreased knee flexion and weightbearing into L LE. Pt performs stairs with reciprocal gait pattern but requires extra time during descent for safety and unilateral-bilateral rails. Palpation: normal patellar mobilization, tightness in L quad Range of Motion: Left Right Knee Flexion/Extension 0-140 PROM: 8-116 deg PROM: NT *Knee flexion measured in supine with slider and PT assist. Initially 99 deg at start of session butimproved with activity and reduced muscle guarding. SLR: Pt performs independently with initial quad set and performs SLR x5 repetitions Ortho Exam TREATMENT Treatment today consisted of: Therapeutic Exercise: -sci-fit bike x8 minutes, up to seat 14 for mobility -standing knee flexion stretch on second step, x20 repetitions -DL press, 30#, deep seat position for end-range flexion -supine heel slides with PT assist and slider, 4x10 repetitions -seated hamstring stretch review -reviewed home program exercises pt has already Home Exercise Program/Education: Continue TKA pathway and CPM use Patient reports good HEP compliance. Assessment Clinical Impression: Pt is a 61 y/o male s/p L knee manipulation on 10/03/[address] Mijares. His pain is controlled, noting a 3/10 in L knee. He is sleeping well and able to walk with SPC similar to mobility prior to manipulation. He demonstrates initial stiffness but is able to get to 116 deg of L knee flexion with assist. Encouraged pt to have PT over the weekend one time but pt unable to commit toa time of day and states he will be very diligent with CPM machine and exercise program at home. Pt will benefit from PT services in order for improved functional mobility. Rehab Potential: Good Comorbid Conditions: Arthritis Personal Factors: Needs assistive device Clinical Presentation: Stable Examination elements: 1-2 Clinical Decision Making: Low complexity clinical decision making Equipment Recommended - PT: Single-point cane Functional [...] the plan of care and goals. Plan: Plan of care initiated Number of Outpatient PT Visits: 10 PT Outpatient Duration (days): 60 days PT Frequency: 5 times per week Plan for next session: progress ROM, strength Treatment/Interventions: Therapeutic exercise, Therapeutic functional activity, Gait training, Neuromuscular re-education, Manual therapy Time Spent with Patient Evaluations PT Re-eval (min): 15 min Therapeutic Interventions Therapeutic Exercise (min): 20 min Time Tracking Total Timed Units (min): 20 min Total Treatment Time (min): 35 min documented in this encounter Plan of Treatment Upcoming Encounters Date Type Specialty Care Team Description 01/24/2022 Diagnostic Otorhinolaryngology Lara Snell Au.D. [address] [place], [place] [phone] 01/29/2022 Office Visit Orthopedic Surgery Laurie Dumont, ANA , C.N.P., D.N.P. [address] [place], [place] [phone] (Wo rk) documented as of this encounter Visit Diagnoses Diagnosis Primary Osteoarthritis Knee Left documented in this encounter Care Teams Clinical Dental Technician Relationship Specialty Start Date End Date Elsewhere, Pcp PCP - General 06/07/19 documented as of this encounter
--- OUTSIDE RECORDS SUMMARY | 2022-01-23 19:36 | XMS_ITS | Encounter Summary ---
:1960 Author Organization [facility] Address [address] [place] [address] Care Team Providers Name Role Phone Elsewhere, Pcp Primary Care Provider Unavailable Reason for Visit Physical Therapy (Routine) - Authorized Specialty Diagnoses / Procedures Referred By Contact Refer red To Contact Diagnoses Primary Osteoarthritis Knee Left Dk Mijares M.D. [facility] Procedures PT Ongoing treatment [address] [place] [address] Referral ID Status Reason Start Date Expiration Date Visits V isits Requested Authorized [id number] Authorized 08/10/2021 05/18/2022 40 40 Encounter Details Date Type Department Care Team Description 09/13/2021 Clinical Support Department of Dk Mijares M.D. [address] [place] [phone] Primary Rehabilitation Dian Clarke, P.T. [address] [place] [address] [place] [address] Osteoarthritis Knee Services in [address] [phone] Social History Tobacco Use Types Packs/Day Years [...] you attend orthodoxy or Patient refused 2021 buddhism services? Do you belong to any clubs or No 12/20/2021 organizations such as orthodoxy groups, unions, fraFair and Square or athletic groups, or school groups? 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 - 09/13/2021 9:15 AM CDT Physical Therapy Outpatient Treatment Note SUBJECTIVE Patient's Name: Hussein Whittaker Referring Provider: Dk Mijares M.D. Visit Diagnosis: 1. Primary Osteoarthritis Knee Left Payor: [employer]URANCE / Plan: [employer]URANCE / Product Type: Indemnity / PT Next Certification Date: 08/08/2021 [facility] Visit Count: 11 Patient comments: He continues to feel tightness and finds it hard to push past a certain point in the ROM. Continues to struggle with sleep. Contact monitoring: PPE used during therapy: Therapist was wearing the following PPE throughout entire session: surgicalmask Patient was wearing a mask during therapy session: yes Additional Staff Present During Session: no OBJECTIVE Pain: knee pain, varies in intensity is not rated on pain scale today. Ortho Exam Left knee active range of motion 0?? of knee extension to 105?? of knee flexion Left knee passive range of motion 0?? of knee extension to 107?? of knee flexion. Independent straight leg raise out an extension lag today. Patient is ambulating safely and independently with the use of a straight cane. TREATMENT Treatment today consisted of: Performed??Sci-Fit Total body ergometer x8 minutes at a level 1 resistance beginning at seat position 22 and ending at 17. ??Performed standing knee flexion utilizing a stretch times 15??repetitions. ??Standing partial squats x 10??reps.?Leg press 50# for knee range of motion and light strengthening??at ??3??x??10 repetitions. ??Performed passive range of motion in a seated position for knee flexion. ??Knee range of motion was measured in supine. ??Performed patellar mobilizations. ??Perform straight leg raises x??10??reps. Prolonged knee extension stretches 2 x 30 seconds. Home Exercise Program/Education: TKA protocol Pt reports good compliance with his HEP. Assessment Clinical Impression: Patient is status post left total knee arthroplasty performed on 08/06/[address] Mijares. Patient is making steady gains towards range of motion. Patient's greatest limitations are knee flexion at this time. Patient has had gradual return of strength and gait pattern. Patient will continue to benefit from skilled physical therapy to optimize knee range of motion and function. Functional Goals and Timeframes: PT Goal [...] Status: Progressing Plan Plan for next session: Range of motion and quad strengthening. Time Spent with Patient Therapeutic Interventions Manual Therapy (min): 10 min Therapeutic Exercise (min): 20 min Time Tracking Total Timed Units (min): 30 min Total Treatment Time (min): 30 min documented in this encounter Plan of Treatment Upcoming Encounters Date Type Specialty Care Team Description 01/24/2022 Diagnostic Otorhinolaryngology Lara Snell Au.D. [address] [place], [place] [phone] 01/29/2022 Office Visit Orthopedic Surgery Laurie Dumont APRN , C.N.P., D.N.P. [address] [place], [place] [phone] (Wo rk) documented as of this encounter Visit Diagnoses Diagnosis Primary Osteoarthritis Knee Left documented in this encounter Care Teams Plodding Operator Relationship Specialty Start Date End Date Elsewhere, Pcp PCP - General 06/07/19 documented as of this encounter
--- OUTSIDE RECORDS SUMMARY | 2022-01-23 19:36 | XMS_ITS | Encounter Summary ---
:1960 Author Organization [facility] Address [address] [place] [address] Care Team Providers Name Role Phone Elsewhere, Pcp Primary Care Provider Unavailable Encounter Details Date Type Department Care Team Description 08/13/2021 Orders Only Pharmacy Prior Auth [place] Alisha Whiting [phone] Social History Tobacco Use Types Packs/Day Years [...] or relatives? How often do you attend temple or Patient refused 2021 taoism services? 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 [address] [place], [place] [phone] 01/29/2022 Office Visit Orthopedic Surgery Laurie Dumont APRN , C.N.P., D.N.P. [address] [facility], [place] [phone] (Wo rk) documented as of this encounter Visit Diagnoses Not on filedocumented in this encounter Care Teams Invasive Cardiovascular Technologist Relationship Specialty Start Date End Date Elsewhere, Pcp PCP - General 06/07/19 documented as of this encounter
--- OUTSIDE RECORDS SUMMARY | 2022-01-23 19:36 | XMS_ITS | Encounter Summary ---
:1960 Author Organization [facility] Address [address] [place] [address] Care Team Providers Name Role Phone Elsewhere, Pcp Primary Care Provider Unavailable Encounter Details Date Type Department Care Team Description 10/01/2021 Hospital Encounter Department of Dk Mijares Laboratory Medicine Adrian Bui Preprocedural in [address] Laboratory [place] [phone] (COVID-19) [facility] [phone] [place], [place] (Work) [phone] Social History Tobacco Use Types Packs/Day [...] you attend restorationism or Patient refused 2021 zoroastrianism services? 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 oxyCODONE (ROXICODONE) 5 Take 1-2 tablets 50 tablet 0 10/032 10/18/2021 mg immediate release (5-10 mg total) by [...] 01/24/2022 Diagnostic Otorhinolaryngology [facility] Snell Au.D. [facility] [place] [place] [phone] 01/29/2022 Office Visit Orthopedic Surgery Laurie Dumont, ANA , C.N.P., D.N.P. [address] [facility], [place] [phone] (Wo rk) documented as of this encounter Procedures Procedure Name Priority Date/Time Associated Diagnosis Comme nts SARS CORONAVIRUS-2 Routine 10/01/2021 9:51 AM Encounter For Re sults for this RNA, V CDT Preprocedural procedure are in Laboratory Examination the r esults (COVID-19) section. documented in this encounter Results SARS Coronavirus-2 RNA, V Asymptomatic (10/01/2021 9:51 AM CDT) [facility] gist Method Time Signature SARS-CoV-2 Swab, 10/01/2021 ECLR Specimen Nasopharynx 8:55 PM CDT Source SARS CoV-2 Undetected Undetected 10/01/2021 ECL[facility] RNA, TMA 8:55 PM CDT Comment: SARS-CoV-2 RNA absent. This result does not rule out COVID-19 in the patient, as the sensitivity of the test depends o n the timing of the specimen collection and the quality of the specim en. Result should be correlated with patient's history and clinical presentat ion. ----ADDITIONAL INFORMATION---- This molecular amplification test was pe rformed using the Aptima SARS-CoV-2 assay ([employer] on the Revenews tem under emergency use authorization (EUA) by the U.S. Food and Drug Administ ration. Fact sheets for this EUA assay can be fo und at the following links: For Healthcare Providers: https://www.fd a.gov/media/586447/download For Patients: https://www.fda.gov/media/ 373312/download Specimen Anatomical Collection Method Collection Time Receive d Time (Source) Location / / Volume Laterality Varies 10/01/2021 9:51 AM 3:09 (Nasopharynx) CDT PM CDT Dk Mijares M.D. LAB MICROBIOLOGY - GENERAL O RDERABLES Performing Organization Address City/State/ZIP Code Phon e Number [facility] [address] [place] [address] [phone] [facility] [place] [address] System [address] documented in this encounter Visit Diagnoses Diagnosis Encounter For Preprocedural Laboratory E xamination (COVID-19) documented in this encounter Additional Health Concerns Infection Onset Date Last Indicated Resolved Time COVID19 Pending 10/01/2021 10/01/2021 10/01/2021 8:55 PM CDT documented as of this encounter Care Teams Film Maker Relationship Specialty Start Date End Date Elsewhere, Pcp PCP - General 06/07/19 documented as of this encounter
--- OUTSIDE RECORDS SUMMARY | 2022-01-23 19:36 | XMS_ITS | Encounter Summary ---
:1960 Author Organization [facility] Address [address] [place] [address] Care Team Providers Name Role Phone Elsewhere, Pcp Primary Care Provider Unavailable Reason for Visit Physical Therapy (Routine) - Authorized Specialty Diagnoses / Procedures Referred By Contact Refer red To Contact Diagnoses Primary Osteoarthritis Knee Left Dk Mijares M.D. [facility] Procedures PT Ongoing treatment [address] [place] [phone] Referral ID Status Reason Start Date Expiration Date Visits V isits Requested Authorized [id number] Authorized 08/10/2021 05/18/2022 40 40 Encounter Details Date Type Department Care Team Description 10/08/2021 Clinical Support Department of Dk Mijares M.D. [address] [place] [phone] Primary Rehabilitation Maria Luisa Chaparro, P.T. Osteoarthritis Knee Services in [place] [address] [place] [phone] Social History Tobacco Use Types Packs/Day Years [...] you attend restorationism or Patient refused 2021 synagogue services? Do you belong to any clubs or No 12/20/2021 organizations such as restorationism groups, unions, fraCinchcast or athletic groups, or school groups? 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 - 10/08/2021 11:00 AM CDT Physical Therapy Outpatient Treatment Note SUBJECTIVE Patient's Name: Hussein Whittaker Referring Provider: Dk Mijares M.D. Visit Diagnosis: 1. Primary Osteoarthritis Knee Left Payor: [employer]URANCE / Plan: [employer]URANCE / Product Type: Indemnity / PT Next Certification Date: 08/08/2021 Psychiatric Visit Count: 2 Patient comments: Pt reports his knee is feeling overall pretty good. Sleeping is improving and continues use ice and pain medication. However, he is relying less on the pain medication. His knee gets sore with prolonged walking, but he has been using his CPM machine diligently and his daughter has been helping him with ROM. Contact monitoring: PPE used during therapy: Therapist was wearing the following PPE throughout entire session: surgicalmask and eye protection Patient was wearing a mask during therapy session: yes OBJECTIVE Pain: L knee soreness, does not provide numeric value Ambulation: Pt ambulates into therapy dept with use of 4-point cane. He is able to ambulate throughout therapy dept without AD independently but does demonstrate increased antalgic gait with decreased L knee flexion and stance time. Range of Motion: Left Right Knee Flexion/Extension 0-140 PROM: 4-116 deg PROM: NT *Knee flexion measured in supine with PT assist and overpressure. TREATMENT Treatment today consisted of: Therapeutic Exercise: -sci-fit bike, L3, up to seat 14, x5 minutes -stationary bike, both directions, seat 7, x6 minutes, able to warm up into full circles after initial warmup -standing knee flexion stretch on second step, x20 repetitions on L -DL press, 40#, deep seat position for end-range flexion, 3x10 repetitions with 2 sec holds at end-range flexion -standing lunges with knee touch on airex and UE support for push off, x10 repetitions bilateral -supine heel slides with PT overpressure, 3x10 repetitions -supine knee extension stretch with towel roll under ankle -verbally reviewed prone knee flexion AAROM and supine knee flexion AAROM off EOB with support of daughter Home Exercise Program/Education: Continue TKA pathway and CPM use Patient reports good HEP compliance. Assessment Clinical Impression: Pt tolerated session well. He did require mild increase in overpressure to get to flexion ROM similar to Friday but was able to get there. Extension is improving well. Pt will continue to benefit from PT [...] week Plan for next session: progress ROM, leg press, prone knee flexion, quad/hamstring METs Treatment/Interventions: Therapeutic exercise, Therapeutic functional activity, Gait training, Neuromuscular re-education, Manual therapy Time Spent with Patient Therapeutic Interventions Therapeutic Exercise (min): 33 min Time Tracking Total Timed Units (min): 33 min Total Treatment Time (min): 33 min documented in this encounter Plan of Treatment Upcoming Encounters Date Type Specialty Care Team Description 01/24/2022 Diagnostic Otorhinolaryngology Lara Snell Au.D. [address] [place], [place] [phone] 01/29/2022 Office Visit Orthopedic Surgery Laurie Dumont APRN , C.N.P., D.N.P. [address] [place], [place] [phone] (Wo rk) documented as of this encounter Visit Diagnoses Diagnosis Primary Osteoarthritis Knee Left documented in this encounter Care Teams Central Aisle Cashier Relationship Specialty Start Date End Date Elsewhere, Pcp PCP - General 06/07/19 documented as of this encounter
--- OUTSIDE RECORDS SUMMARY | 2022-01-23 19:36 | XMS_ITS | Encounter Summary ---
:1960 Author Organization [facility] Address [address] [place] [address] Care Team Providers Name Role Phone Elsewhere, Pcp Primary Care Provider Unavailable Reason for Visit Physical Therapy (Routine) - Authorized Specialty Diagnoses / Procedures Referred By Contact Refer red To Contact Diagnoses Primary Osteoarthritis Knee Left Dk Mijares M.D. [facility] Procedures PT Ongoing treatment [address] [place] [phone] Referral ID Status Reason Start Date Expiration Date Visits V isits Requested Authorized [id number] Authorized 08/10/2021 05/18/2022 40 40 Encounter Details Date Type Department Care Team Description 08/21/2021 Clinical Support Department of Dk Mijares M.D. [address] [place] [phone] Primary Rehabilitation Dian Clarke, P.T. [address] [place], [place] [address] [address] Osteoarthritis Knee Services in [address] [phone] Social History Tobacco Use Types Packs/Day Years [...] or relatives? How often do you attend lutheran or Patient refused 2021 spiritism services? Do you belong to any clubs or No 12/20/2021 organizations such as lutheran groups, unions, fraRisparmioSuper or athletic groups, or school groups? 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 - 08/21/2021 1:15 PM CDT Physical Therapy Outpatient Treatment Note SUBJECTIVE Patient's Name: Hussein Osiel Panfilo Referring Provider: Dk Mijares M.D. Visit Diagnosis: 1. Primary Osteoarthritis Knee Left Payor: / PT Next Certification Date: 08/08/2021 [facility] Visit Count: 4 Patient comments: Patient is having higher levels of pain today. He followed up with orthopedics this morning. Contact monitoring: PPE used during therapy: Therapist was wearing the following PPE throughout entire session: surgicalmask Patient was wearing a mask during therapy session: yes Additional Staff Present During Session: no OBJECTIVE Pain: Left knee pain, varies in intensity. He has cut back on his pain medication. He reports the Doctor suggested he continue with the pain medication for therapy. Ortho Exam Left knee AROM: Sitting 3-75 degrees Left knee PROM: Supine 3-80 degrees Patient is ambulating with a straight cane, mild antalgic gait pattern. Equal stride bilaterally. TREATMENT Treatment today consisted of: Perform the BetBox-Fit Total body ergometer x8 minutes at a level 1 resistance. Performed standing kneeflexion utilizing a step times 10 repetitions. Performed hamstring and gastroc stretch using the stairs at 30 seconds each. Performed passive range of motion in sitting and supine. Utilize contract relax techniques to increase knee range of motion. Performed patellar mobilizations. Performed quad setstimes 10 repetitions and active assistive leg raises x5 repetitions. Patient provided with verbal and tactile cuing to enhance quad contraction prior to attempting leg left. Home Exercise Program/Education: TKA pathway Pt reports good compliance with his HEP. Assessment Clinical Impression: Hussein is 2 weeks s/p left TKA. He is having high levels of pain and moderate swelling. He is very limited in ROM as a result. High levels of muscle guarding and compensation. He is currently unable to perform an independent SLR. Patient is working hard on his home program. Functional Goals and Timeframes: PT Goal #1: [...] Date: 09/21/2021 Plan Plan for next session: ROM, stretching and quad strengthening. Time Spent with Patient Therapeutic Interventions Manual Therapy (min): 15 min Therapeutic Exercise (min): 15 min Time Tracking Total Timed Units (min): 30 min Total Treatment Time (min): 30 min documented in this encounter Plan of Treatment Upcoming Encounters Date Type Specialty Care Team Description 01/24/2022 Diagnostic Otorhinolaryngology Lara Snell Au.D. [address] [place] [phone] 01/29/2022 Office Visit Orthopedic Surgery Laurie Dumont APRN , C.N.P., D.N.P. [address] [phone] (Wo rk) documented as of this encounter Visit Diagnoses Diagnosis Primary Osteoarthritis Knee Left documented in this encounter Care Teams Stave Block Roller Relationship Specialty Start Date End Date Elsewhere, Pcp PCP - General 06/07/19 documented as of this encounter
--- OUTSIDE RECORDS SUMMARY | 2022-01-23 19:36 | XMS_ITS | Encounter Summary ---
:1960 Author Organization [facility] Address [address] [place] [address] Care Team Providers Name Role Phone Elsewhere, Pcp Primary Care Provider Unavailable Reason for Visit Physical Therapy (Routine) - Authorized Specialty Diagnoses / Procedures Referred By Contact Refer red To Contact Diagnoses Primary Osteoarthritis Knee Left Dk Mijares M.D. [facility] Procedures PT Ongoing treatment [address] [place] [phone] Referral ID Status Reason Start Date Expiration Date Visits V isits Requested Authorized [id number] Authorized 08/10/2021 05/18/2022 40 40 Encounter Details Date Type Department Care Team Description 09/07/2021 Clinical Support Department of Dk Mijares M.D. [address] [place] [phone] Primary Rehabilitation Constance Shea, P.T. [address] [place], [place] [address] [place] [address] Osteoarthritis Knee Services in [address] [phone] Social History Tobacco Use Types Packs/Day Years [...] or relatives? How often do you attend anglican or Patient refused 2021 jehovah's witness services? Do you belong to any clubs or No 12/20/2021 organizations such as anglican groups, unions, fraKBJ Capital or athletic groups, or school groups? 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 - 09/07/2021 8:30 AM CDT Physical Therapy Outpatient Treatment Note SUBJECTIVE Patient's Name: Hussein Whittaker Referring Provider: Dk Mijares M.D. Visit Diagnosis: 1. Primary Osteoarthritis Knee Left Reason for Referral: PTeval and treat, TKA Onset Date: 08/06/21 Payor: [employer] INSURANCE / Plan: [employer]URANCE / Product Type: Indemnity / PT Next Certification Date: 08/08/2021 [facility] Visit Count: 9 History of Present Illness: Patient is a 60-year-old male who is status post left [place] assisted TKA Patient comments: Patient continues to report difficulty sleeping at night. Contact monitoring: PPE used during therapy: Therapist was wearing the following PPE throughout entire session: surgicalmask and eye protection Patient was wearing a mask during therapy session: yes Additional Staff Present During Session: no OBJECTIVE Pain: 3-7/10 Ortho Exam Left knee 0-108 degrees Independent SLR with mild extension lag. ?? Ambulating with a straight cane safely and independently, mildly antalgic. ?? TREATMENT Treatment today consisted of: Performed??Sci-Fit Total body ergometer x10 minutes at a level 1 resistance. ??Performed standing knee flexion utilizing a stretch times 15??repetitions. ?Performed passive range of motion in a seated position for knee flexion and supine. S/l hip flexor and quadriceps stretch Manual therapy: Performed scar mobilization and education patient on how to perform at home. STM to distal quad. ??Performed patellar mobilizations. ?? Home Exercise Program/Education: TKA pathway, added scar mobilization. Pt reports good compliance with his HEP. Assessment Clinical Impression: Tolerated session well. Improving ROM and strength. Progressing towards goals. Functional Goals and Timeframes: PT Goal #1: [...] 09/21/2021 PT Goal #4 Status: Progressing Plan Physical Therapy Attestation Statement: Patient agrees with the plan of care and goals. Plan: Continue with current plan Plan for next session: ROM and strengthening Time Spent with Patient Therapeutic Interventions Manual Therapy (min): 10 min Therapeutic Exercise (min): 20 min Time Tracking Total Timed Units (min): 30 min Total Treatment Time (min): 30 min documented in this encounter Plan of Treatment Upcoming Encounters Date Type Specialty Care Team Description 01/24/2022 Diagnostic Otorhinolaryngology Lara Snell Au.D. [address] [place], [place] [phone] 01/29/2022 Office Visit Orthopedic Surgery Laurie Dumont, ANA , C.N.P., D.N.P. [address] [place], [place] [phone] (Wo rk) documented as of this encounter Visit Diagnoses Diagnosis Primary Osteoarthritis Knee Left documented in this encounter Care Teams L Tacker Relationship Specialty Start Date End Date Elsewhere, Pcp PCP - General 06/07/19 documented as of this encounter
--- OUTSIDE RECORDS SUMMARY | 2022-01-23 19:36 | XMS_ITS | Encounter Summary ---
:1960 Author Organization [facility] Address [address] [place] [address] Care Team Providers Name Role Phone Elsewhere, Pcp Primary Care Provider Unavailable Encounter Details Date Type Department Care Team Description 10/03/2021 Ancillary Procedure Department of General Surgery Social History Tobacco Use Types Packs/Day Years [...] or relatives? How often do you attend mormonism or Patient refused 2021 yazidism services? 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 [address] [place] [phone] 01/29/2022 Office Visit Orthopedic Surgery Laurie Dumont, ANA , C.N.P., D.N.P. [address] [facility], [place] [phone] (Wo rk) documented as of this encounter Procedures Procedure Name Priority Date/Time Associated Diagnosis Comme nts GENERAL SURGERY Routine 10/03/2021 10:55 AM Resul ts for this IMAGE EXAM CDT procedure are i n the results section. documented in this encounter Results Knee-General Surgery Image Exam (10/03/2021 10:55 AM CDT) Specimen (Source) Anatomical Collection Method Collection Time Re ceived Time Location / / Volume Laterality 10/03/2021 10:53 AM CDT Narrative [facility] - 10/03/2021 10:57 AM CDT This order has been created and auto-finalized to support the import of images acquired without order. The clini shannan documentation to support these images can be found on the encounter melinda t produced images. Provider Not In System IMG NON RAD IMAGING PROCEDUR ES Performing Organization Address City/State/ZIP Code Phon e Number [facility] NA documented in this encounter Visit Diagnoses Not on filedocumented in this encounter Care Teams Line Construction Engineer Relationship Specialty Start Date End Date Elsewhere, Pcp PCP - General 06/07/19 documented as of this encounter
--- OUTSIDE RECORDS SUMMARY | 2022-01-23 19:36 | XMS_ITS | Encounter Summary ---
:1960 Author Organization [facility] Address [address] [place] [address] Care Team Providers Name Role Phone Elsewhere, Pcp Primary Care Provider Unavailable Reason for Visit Physical Therapy (Routine) - Authorized Specialty Diagnoses / Procedures Referred By Contact Refer red To Contact Diagnoses Primary Osteoarthritis Knee Left Dk Mijares M.D. [facility] Procedures PT Ongoing treatment [address] [place] [phone] Referral ID Status Reason Start Date Expiration Date Visits V isits Requested Authorized [id number] Authorized 08/10/2021 05/18/2022 40 40 Encounter Details Date Type Department Care Team Description 09/05/2021 Clinical Support Department of Dk Mijares M.D. [address] [place] [phone] Primary Rehabilitation Dian Clarke, P.T. [address] [place] [address] [place] [phone] Osteoarthritis Knee Services in [address] [phone] Social History Tobacco Use Types Packs/Day Years [...] or relatives? How often do you attend confucianism or Patient refused 2021 moravian services? Do you belong to any clubs or No 12/20/2021 organizations such as confucianism groups, unions, fraControlRad Systems or athletic groups, or school groups? 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 - 09/05/2021 8:30 AM CDT Physical Therapy Outpatient Treatment Note SUBJECTIVE Patient's Name: Hussein Osiel Panfilo Referring Provider: Dk Mijares M.D. Visit Diagnosis: 1. Primary Osteoarthritis Knee Left Payor: [facility] / Plan: [facility] [place] / Product Type: PPO / PT Next Certification Date: 08/08/2021 [facility] Visit Count: 8 Patient comments: Patient is having difficulty with pain at night. He has a hard time getting comfortable. Contact monitoring: PPE used during therapy: Therapist was wearing the following PPE throughout entire session: surgicalmask and eye protection Patient was wearing a mask during therapy session: yes Additional Staff Present During Session: no OBJECTIVE Pain: 3-7/10 Ortho Exam Left knee 0-105 degrees Independent SLR with mild extension lag. ?? Ambulating with a straight cane safely and independently, mildly antalgic. ?? TREATMENT Treatment today consisted of: Performed??Sci-Fit Total body ergometer x8 minutes at a level 1 resistance. ??Performed standing knee flexion utilizing a stretch times 15??repetitions. ??Standing partial squats x 10 reps. Leg press??for knee range of motion and light strengthening at ??3??x??10 repetitions. ??Performed passive rangeof motion in a seated position for knee flexion. ??Knee range of motion was measured in supine. ??Performed patellar mobilizations. ??Perform straight leg raises x 10 reps. Home Exercise Program/Education: TKA pathway Pt reports good compliance with his HEP. Assessment Clinical Impression: Tolerated session well. Improving ROM and strength. Functional Goals and Timeframes: PT Goal [...] Plan Plan for next session: ROM and strengthening Time Spent with Patient Therapeutic Interventions Manual Therapy (min): 10 min Therapeutic Exercise (min): 20 min Time Tracking Total Timed Units (min): 30 min Total Treatment Time (min): 30 min documented in this encounter Plan of Treatment Upcoming Encounters Date Type Specialty Care Team Description 01/24/2022 Diagnostic Otorhinolaryngology Lara Snell Au.D. [address] [place], [place] [phone] 01/29/2022 Office Visit Orthopedic Surgery Laurie Dumont APRN , C.N.P., D.N.P. [address] [place], [place] [phone] (Wo rk) documented as of this encounter Visit Diagnoses Diagnosis Primary Osteoarthritis Knee Left documented in this encounter Care Teams Railroad Design Consultant Relationship Specialty Start Date End Date Elsewhere, Pcp PCP - General 06/07/19 documented as of this encounter
--- OUTSIDE RECORDS SUMMARY | 2022-01-23 19:36 | XMS_ITS | Encounter Summary ---
:1960 Author Organization [facility] Address [address] [place] [address] Care Team Providers Name Role Phone Elsewhere, Pcp Primary Care Provider Unavailable Reason for Visit Outpatient (Routine) - Closed Specialty Diagnoses / Procedures Referred By Contact Refer red To Contact Anesthesiology Diagnoses Preoperative Exam Dk Mijares M.D. [facility] [address] [place] [phone] Referral ID Status Reason Start Date Expiration Date Visits Requ ested Visits Authorized [id number] Closed 09/18/2021 09/18/2022 1 1 Encounter Details Date Type Department Care Team Description 09/24/2021 Virtual Visit Preoperative Dk Mijares M.D. [address] [place] [phone] Preanesthetic Medical Exam (Primary Dx); [facility] [address] [place] [phone] Preoperative Exam [address] [phone] Social History Tobacco Use Types Packs/Day [...] or relatives? How often do you attend denominational or Patient refused 2021 yarsanism services? Do you belong to any clubs or No 12/20/2021 organizations such as denominational groups, unions, fraatokore or athletic groups, or school groups? How [...] place to sleep or slept in a fdc (including now)? Education Answer Date Recorded What is the highest level of school you have completed or 12 th grade 04/11/2021 the highest degree you have received? 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 - 09/24/2021 3:00 PM CDT Surgery Nurse Senior Account Director Skin Alert Assessment: Complete this section only if the patient is greater than or equal to 18 y/o BMI <19 or >50: No Documented risk factors that indicate higher risk for pressure ulcer? No Do you have impaired sensation? No Is patient chair-bound or unable to reposition themselves? No Anesthesia Risk Assessment: Do you have an implanted cardiac device? No Do you have difficulties lying flat? No Do you have any yarsanism or other objection to having a blood transfusion? No Teaching: Preoperative education was done with (x) patient (_) parent _. It was confirmed the patient/family member had received the following preoperative education sheets:Checklist For Surgical Patients ([id number]),???Surgical Site Infections: Reducing Your Risk ([id number]), Speak Up: Antibiotics ([id number]), Acute Pain and the Healing Process ([id number]) with the Integrative Medicine and Health ([id number]), and ???Appointments Required Before Your Surgery?? (no MC). These were reviewed in detail. (x) Preoperative medication education provided through Ask [place] Expert (x) Preoperative COVID-19 testing ordered and discussed with patient Total Joint Class scheduled: (x) N/A Date:_ Knee Manipulation-CPM set-up: (_) N/A (x) Yes and PT notified (_)Total Joint Surgery: Total Joint Class (good for one year). (_) Reviewed Hibiclens packet and reviewed Reducing Your Risk of Surgical Infection ([id number]). (_)Preop OT appt (total shoulders only). (_) Reviewed Hibiclens packet and reviewed Reducing Your Risk of Surgical Infection ([id number]) NA (x) CT preop for BARBER Robotic Assist? Y/N (_) Date (_) N/A (_) Additional Pamphlets also reviewed: (_)Parental Presence in the Operating Room (agH:Order Sets/Surgery/Home Instructions/TonsillectomyTeaching Checklist/PE Tubes Teaching Sheet 11/17/11) (_) Shoulder Replacement Surgery: Anatomic Prosthesis ([id number]) and reviewed teaching points for total shoulders instructions. (_) Shoulder Replacement Surgery: Reverse Prosthesis ([id number]) and reviewed teaching points for total shoulders instructions. (_) Rotator Cuff Repair Rehabilitation Pre-Op Education (no mc#) Patient is ready to learn, no apparent learning barriers were identified. Reviewed diagnosis and treatment plan; patient verbalized understanding through teach back. All questions were answered. Patient has contact information and understands the need to call with any questions or concerns. Post op appointments: 1st po with surgeon or physician engineer second assistant: (x) made (_)TBD (_)PO OT appt made (Hand surgery if requested) documented in this encounter Plan of Treatment Upcoming Encounters Date Type Specialty Care Team Description 01/24/2022 Diagnostic Otorhinolaryngology Lara Snell Au.D. [address] [place], [place] [phone] 01/29/2022 Office Visit Orthopedic Surgery Laurie Dumotn, ANA , C.N.P., D.N.P. [address] [place], [place] [phone] (Wo rk) documented as of this encounter Visit Diagnoses Diagnosis Preanesthetic Medical Exam - Primary Preoperative Exam documented in this encounter Care Teams Correctional Counselor/Case Manager Relationship Specialty Start Date End Date Elsewhere, Pcp PCP - General 06/07/19 documented as of this encounter
--- OUTSIDE RECORDS SUMMARY | 2022-01-23 19:36 | XMS_ITS | Encounter Summary ---
:1960 Author Organization [facility] Address [address] [place] [address] Care Team Providers Name Role Phone Elsewhere, Pcp Primary Care Provider Unavailable Reason for Referral Outpatient (Routine) - Authorized Specialty Diagnoses / Procedures Referred By Contact Refer red To Contact Audiology Diagnoses Loss Hearing Bilateral Chica Rodriguez APRN, [facility] C.N.P., D.N.P. [address] [place] [address] [place] [address] Referral ID Status Reason Start Date Expiration Date Visits V isits Requested Authorized [id number] Authorized 10/08/2021 10/08/2022 1 1 Encounter Details Date Type Department Care Team Description 10/08/2021 Orders Only Department of [facility] Chica Rodriguez Lo Hearing Bilateral Medicine, Guston ANA, C.N.P., ([facility], in [place] [address] [place] [id number] Social History Tobacco Use Types Packs/Day [...] or relatives? How often do you attend muslim or Patient refused 2021 buddhist services? Do you belong to any clubs or No 12/20/2021 organizations such as muslim groups, unions, fraGrocery Shopping Network or athletic groups, or school groups? How [...] place to sleep or slept in a nursing home (including now)? Education Answer Date Recorded What is the highest level of school you have completed or 12 th grade 04/11/2021 the highest degree you have received? 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 [address] [place], [place] [phone] 01/29/2022 Office Visit Orthopedic Surgery Laurie Dumont APRN , C.N.P., D.N.P. [address] [place], [place] [phone] (Wo rk) documented as of this encounter Results Otorhinolaryngology - Audiology - Hearing aid program consult (clinic) (10/18/2021 12:00 AM CDT) Specimen (Source) Anatomical Location Collection Method / Collectio n Time Received Time / Laterality Volume 10/18/2021 Narrative This result has an attachment that is no t available. Chica Rodriguez APRN, C.N.P., D.N.P. OUTPATIENT REFERR AL ORDERABLES documented in this encounter Visit Diagnoses Diagnosis Loss Hearing Bilateral - Primary documented in this encounter Care Teams Order Clerk Relationship Specialty Start Date End Date Elsewhere, Pcp PCP - General 06/07/19 documented as of this encounter
--- OUTSIDE RECORDS SUMMARY | 2022-01-23 19:36 | XMS_ITS | Encounter Summary ---
:1960 Author Organization [facility] Address [address] [place] [address] Care Team Providers Name Role Phone Elsewhere, Pcp Primary Care Provider Unavailable Reason for Visit Physical Therapy (Routine) - Authorized Specialty Diagnoses / Procedures Referred By Contact Refer red To Contact Diagnoses Primary Osteoarthritis Knee Left Dk Mijares M.D. [facility] Procedures PT Ongoing treatment [address] [place] [phone] Referral ID Status Reason Start Date Expiration Date Visits V isits Requested Authorized [id number] Authorized 08/10/2021 05/18/2022 40 40 Encounter Details Date Type Department Care Team Description 09/19/2021 Clinical Support Department of Dk Mijares M.D. [address] [place] [phone] Primary Rehabilitation Maria Luisa Chaparro, P.T. Osteoarthritis Knee Services in [place] [address] [place] [phone] Social History Tobacco Use Types Packs/Day Years [...] you attend anglican or Patient refused 2021 anabaptist services? Do you belong to any clubs or No 12/20/2021 organizations such as anglican groups, unions, fraternal or athletic groups, or [...] place to sleep or slept in a [facility] (including now)? Education Answer Date Recorded What is the highest level of school you have completed or 12 th grade 04/11/2021 the highest degree you have received? 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 Visit Diagnosis: 1. Primary Osteoarthritis Knee Left Reason for Referral: PTeval and treat, TKA Onset Date: 08/06/21 Payor: [employer] / Plan: [employer] / Product Type: Indemnity / PT Next Certification Date: 08/08/2021 [facility] Visit Count: 12 History of Present Illness: Patient is a 60-year-old male who is status post left [place] assisted TKA Patient comments: Pt reports continued to stiffness but he is continuing to perform exercises. He had follow up with Dr. Mijares and will be having a manipulation scheduled for 10/03 to progress mobility. Contact monitoring: PPE used during therapy: Therapist was wearing the following PPE throughout entire session: surgicalmask and eye protection Patient was wearing a mask during therapy session: yes OBJECTIVE Pain: knee pain with activity, does not provide numeric value Gait: Pt ambulates into therapy dept with quad cane but is able to ambulate during session without AD. He does have antalgic gait with decreased stance time on L and decreased knee flexion. Range of motion: did not assess at this time TREATMENT Treatment today consisted of: Therapeutic Exercise: -sci-fit bike, L1, x8 minutes, up to seat 16 for mobility -standing knee flexion stretch, x30 repetitions on second step -alternating fwd step ups on 6 step with UE support, x20 repetitions -DL press, 60#, 1 second hold at end-range flexion for mobility, 3x12 repetitions -stationary lunge with knee touch on airex and UE support, 2x12 repetitions bilateral -supine heel slides with PT assist and slider, 2x10 repetitions on L -supine quad MET's off EOB with 5 sec holds, for knee mobility -SLR on L with RLE extended, 2x15 repetitions Home Exercise Program/Education: Continue TKA protocol Pt reports good compliance with his HEP. Assessment Clinical Impression: Pt tolerated session well. He fatigues with exercises due to strength deficits but able to complete. SLR progression very challenging, with min-mod extension lag in later repetitions due to fatigue, with some compensation into low back with arching. Will plan to continue working on strengthening of the quad and LE prior to manipulation scheduled on 10/[address] Mijares. Functional Goals and Timeframes: PT Goal #1: [...] with current plan Plan for next session: progress ROM, with more focus on strengthening at this time Time Spent with Patient Therapeutic Interventions Therapeutic Exercise (min): 32 min Time Tracking Total Timed Units (min): 32 min Total Treatment Time (min): 32 min documented in this encounter Plan of Treatment Upcoming Encounters Date Type Specialty Care Team Description 01/24/2022 Diagnostic Otorhinolaryngology Lara Snell Au.D. [address] [facility], [place] [phone] 01/29/2022 Office Visit Orthopedic Surgery Laurie Dumont, ANA , C.N.P., D.N.P. [address] [facility], [place] [phone] (Wo rk) documented as of this encounter Visit Diagnoses Diagnosis Primary Osteoarthritis Knee Left documented in this encounter Care Teams Truck Loader Overhead Crane Relationship Specialty Start Date End Date Elsewhere, Pcp PCP - General 06/07/19 documented as of this encounter
--- OUTSIDE RECORDS SUMMARY | 2022-01-23 19:36 | XMS_ITS | Encounter Summary ---
:1960 Author Organization [facility] Address [address] [place] [address] Care Team Providers Name Role Phone Elsewhere, Pcp Primary Care Provider Unavailable Reason for Visit Auth/Cert Specialty Diagnoses / Procedures Referred By Contact Refer red To Contact Diagnoses Pain Knee Left Arthroplasty Total Knee Replacement Status Post Left Pain Knee Left [M25.562] Arthroplasty Total Knee Replacement Status Post Left [Z96.652] Procedures [place] MANIP KNEE JT W ANES MANIPULATION KNEE Referral ID Status Reason Start Date Expiration Date Visits Requ ested Visits Authorized [id number] 1 1 Encounter Details Date Type Department Care Team Description 10/03/2021 Anesthesia Event [facility] MAIN OR Miriam Ge M.D. [address] [facility] [address] [place] [address] [address] [place] [phone] (Wo rk) Anesthesia Record Procedure Summary Procedure Name Responsible Anesthesia Start Anesthesia Stop Anesthesiologist Time Time MANIPULATION KNEE Miriam Ge M.D. 10/03/21 1047 10/03/21 1104 (Left: Knee) Events Date Time Event Comment 10/03/2021 1007 1035 An Start Data 1041 Proc Start 1043 an stop data 1045 Proc Fin 1047 An Start Machine/Equipmen t Checked Infection Precautions Foll owed Procedure/Site Verified NPO Sta tus Verified Supine Standard ASA Mon itors Applied 1048 An Induction 1051 An Intubation 1051 Turnover to Proceduralist 1054 Turnover to ANE Staff 1054 Airway Removal Criteria Met 1100 Extubation/Airway Removed 1104 An End I completed my h andoff to the receiving staff during whi ch we 1. Identified the patient 2. Ident ified the responsible provider 3. Revi ewed the pertinent medical history 4. Discussed the surgical course 5. Review ed intra-op anesthesia management and i ssues during anesthesia 6. Set expectati ons for post-procedure period 7. Allowe d opportunity for questions and ac knowledgement of understanding. Name Total bupivacaine PF 0.25% injection 15 mL dexmedeTOMIDine (PRECEDEX) injection 200 mcg/2 mL anes only 50 mcg midazolam 1 mg/mL injection 4 mg fentaNYL 50 mcg/mL injection 100 mcg propofol 10 mg/mL 202 mg ondansetron 4 mg/2 mL injection 4 mg lactated ringers 200 mL Agents No agents on file. Blood No blood administrations on file. Lines, Drains, and Airways Type Details Placement Removal Wound 08/06/21; 1006; N; Knee; 08/06/21 1006 by Anterior, Left; Zip-line, Juli, Jason Mcgarry R.N. Aquacel, 6 double John Peripheral IV Placement Date: 10/03/21; 10/03/21 1029 by 10/03 1230 by Placement Time: 1029; Janae Little R.N. Kimme s, Lori A, Orientation: Left; R.N. Location: Hand; Site Prep: Chlorhexidine (Preferred); Removal Date: 10/03/21; Removal Time: 1230; Removal Reason: Patient discharged Supraglottic Airway Placement Date: 10/03/21; 10/03/21 1051 by 0 10/03/21 1100 by Placement Time: 1051 Ekaterina Noble, Macario Noble, (created via procedure COMPRESSED AIR PILE DRIVER OPERATOR, AIRPLANE FUELER COMPRESSED AIR PILE DRIVER OPERATOR, CRN A documentation); Mask Ventilation: Easy mask; Removal Date: 10/03/21; Removal Time: 1100 documented in this encounter Social History Tobacco Use Types Packs/Day Years [...] or relatives? How often do you attend alevism or Patient refused 2021 anabaptism services? Do you belong to any clubs or No 12/20/2021 organizations such as alevism groups, unions, fraIdentyx or athletic groups, or school groups? 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 - 10/03/2021 11:12 AM CDT Patient: Hussein Whittaker Procedure Summary Date: 10/03/21 Room / Location: [address] 01 [facility] - Anesthesia Start: 1047 Anesthesia Stop: 1104 Procedure: MANIPULATION KNEE (Left Knee) Diagnosis: Pain Knee Left Arthroplasty Total Knee Replacement Status Post Left (Pain Knee Left [M25.562]) (Arthroplasty Total Knee Replacement Status Post Left [Z96.652]) Surgeons: Dk Mijares M.D. Responsible Provider: Miriam Ge M.D. Anesthesia Type: general with pain block ASA Status: 2 Anesthesia Type: general with pain block Last vitals Vitals Value Taken Time BP 115/79 10/03/21 1105 Temp 35.8 ??C 10/03/21 1105 Pulse 57 10/03/21 1112 Resp 20 10/03/21 1105 SpO2 99 % 10/03/21 1112 Vitals shown include unvalidated device data. Please reference Vitals flowsheet for most recent vital signs. Anesthesia Post Evaluation Patient Disposition: dismissal Cardiovascular status: hemodynamics (HR & BP) acceptable Respiratory status: patent airway with spontaneous effort Temperature: normothermic Oxygen requirements: room air Level of consciousness: awake Pain score: pain adequately controlled and/or at baseline Post Op nausea/vomiting: none Hydration status: euvolemic Anesthesia Procedure Notes - Ekaterina Noble APRN, CRNA - 10/03/2021 10:58 AM CDTAssociated Order(s): Airway Airway Date/Time: 10/03/2021 10:51 AM Performed by: Ekaterina Noble APRN, CRNA Authorized by: Ekaterina Noble APRN, CRNA Patient location during procedure: OR / Procedure Area PROCEDURE DETAILS: Mask difficulty assessment: easy mask Final airway type: supraglottic airway Laryngeal Manipulation: no Supraglottic device: LMA unique Supraglottic device size: 5 Adult device size: 5 Number of attempt to successful placement: 1 Airway confirmation: bilateral breath sounds, positive ETCO2 and bilateral chest rise PRE PROCEDURE DETAILS: Pre evaluation for airway management: procedure Urgency: elective Preoxygenation: bag valve mask SEDATION / ANESTHESIA Anesthesia method: anesthesia POST PROCEDURE DETAILS: Procedure outcome: successful Anesthesia Procedure Notes - Ekaterina Noble APRN, CRNA - 10/03/2021 10:57 AM CDTAssociated Order(s): Regional Block Regional Block Date/Time: 10/03/2021 10:41 AM Performed by: Ekaterina Noble APRN, CRNA Authorized by: Ekaterina Noble APRN, CRNA Location: Pre Op / PACU PROCEDURE DETAILS: Block Indication: post-op pain block Block indication comment: Post-Op pain block at request of surgeon Block Type - Lower extremity: adductor canal Positioning: supine Laterality: left Block technique: ultrasound guided Ultrasound image guidance used to localize target, identify at risk structures, and dynamically usedto direct therapy to the target. Procedure was performed under sterile conditions.Image(s) acquired and saved Injection technique: single injection Needle type: echogenic Gauge: 22G Length: 5 Test dose: yes- negative test dose Incremental injection of local anesthetic with aspiration every:5cc Pain with needle advancement or injection of local anesthetic: no Injected Medications: Injection(s), anesthetic agent(s) and/or steroid; See MAR UNIVERSAL PROTOCOL All relevant documentation and testing were reviewed and available. All required blood products, implants, devices and or special equipment were made available as applicable. Pre-procedure verificationwas conducted and the correct site was marked if required. A fire risk assessment was done as applicable. The procedural time-out was conducted prior to performing the procedure and confirmed in a procedural pause. PRE-PROCEDURE DETAILS: Appropriate hand hygiene, gown, cap, mask, protective eyewear, sterile gloves, skin preparation, sterile drape, and strict aseptic technique were utilized as applicable for the procedure.: yes Skin prep: chlorhexidine / alcohol SEDATION / ANESTHESIA Anesthesia method: local infiltration POST-PROCEDURE DETAILS: Procedure completed successfully: successful procedure Other complications: none Anesthesia Preprocedure Evaluation - Miriam Ge M.D. - 10/03/2021 10:06 AM CDT Preprocedure Anesthesia & H&P Assessment Procedure Summary Date/Time: 10/03/21 1210 Procedure: MANIPULATION KNEE (Left ) Diagnosis: Pain Knee Left [M25.562] Arthroplasty Total Knee Replacement Status Post Left [Z96.652] Pre-op diagnosis: Pain Knee Left [M25.562] Arthroplasty Total Knee Replacement Status Post Left [Z96.652] Location: OR 04 [facility] 01 [facility] / [facility] - GI Surgeons: Dk Mijares M.D. Pertinent components of the patient's history including current problem list, medical history, surgical history, family history, social history, medications and allergies were reviewed. Present illnessand pre-op diagnosis were confirmed. The planned surgery / procedure was verified with the patient /legal guardian. 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 EKG- NSR Hb 11.6, Cr 1.05 OBJECTIVE PHYSICAL EXAMINATION Airway (HEENT) Mallampati: II TM Distance: >3 FB Neck ROM: Full Mouth Opening: >3 cm Upper Lip Bite Test Class: II Cardiovascular Rhythm: Regular Rate: Normal Cardiovascular Assessment: cardiovascular normal Functional Capacity: >4 METS Pulmonary Pulmonary Assessment: Clear General / Constitutional Constitutional Assessment: Normal General State of Health:: healthy appearing and calm Neurological Neurologic Assessment:??alert Dental Dental Assessment: dentition intact ASSESSMENT / PLAN ANESTHESIA PLAN ASA: 2 Anesthesia Plan: general with pain block Patient seen and allergies reviewed, anesthesia plan and risks discussed directly with patient /legal guardian or through an doctorate of chiropractic. The use of blood products not discussed Approval to Proceed: approved for anesthesia documented in this encounter Plan of Treatment Upcoming Encounters Date Type Specialty Care Team Description 01/24/2022 Diagnostic Otorhinolaryngology Lara Snell Au.D. [address] [facility], [place] [phone] 01/29/2022 Office Visit Orthopedic Surgery Laurie Dumont, ANA , C.N.P., D.N.P. [address] [facility], [place] [phone] (Wo rk) documented as of this encounter Procedures Procedure Name Priority Date/Time Associated Comments Diagnosis LDA ANE NON-SURGICAL Routine 10/03/2021 10:51 AM Results for this AIRWAY CDT procedure are i n the results section. MC ANE NERVE BLOCK Routine 10/03/2021 10:41 AM Re sults for this WITH ULTRASOUND CDT procedure ar e in the results section. [place] US GUIDE PLC NDL Routine 10/03/2021 10:41 AM R esults for this CDT procedure are i n the results section. [place] INJ ANES FEM Routine 10/03/2021 10:41 AM Resul ts for this NERVE CDT procedure are i n the results section. documented in this encounter Results LDA ANE NON-SURGICAL AIRWAY (10/03/2021 10:51 AM CDT) Narrative Ekaterina Noble APRN, CRNA - 10/03/2021 10:51 AM CDT Ekaterina Noble APRN, CRNA ? 10/03/2021 10:58 AM Airway Date/Time: 10/03/2021 10:51 AM Performed by: Ekaterina Noble APRN, CRN A Authorized by: Ekaterina Noble APRN, CR NA Patient location during procedure: OR / Procedure Area PROCEDURE DETAILS: Mask difficulty assessment: easy mask Final airway type: supraglottic airway Laryngeal Manipulation: no ?? Supraglottic device: LMA unique ?? Supraglottic device size: 5 ?? Adult device size: 5 Number of attempt to successful placemen t: 1 Airway confirmation: bilateral breath so unds, positive ETCO2 and bilateral chest rise PRE PROCEDURE DETAILS: Pre evaluation for airway management: pr ocedure Urgency: elective Preoxygenation: bag valve mask SEDATION / ANESTHESIA Anesthesia method: anesthesia POST PROCEDURE DETAILS: ? Procedure outcome: successful ?? Ekaterina Noble APRN, CRNA ANESTHESIA ORDERABLES [place] INJ ANES FEM NERVE, [place] US GUIDE [facility] NDL, ANE NERVE BLOCK WITH ULTRASOUND (10/03/2021 10:41 AM CDT) Narrative Ekaterina Noble APRN, CRNA - 10/03/2021 10:41 AM CDT Ekaterina Noble APRN, CRNA ? 10/03/2021 10:57 AM Regional Block Date/Time: 10/03/2021 10:41 AM Performed by: Ekaterina Noble APRN, CRN A Authorized by: Ekaterina Noble APRN, CR NA Location: Pre Op / PACU PROCEDURE DETAILS: Block Indication: post-op pain block ?? Block indication comment: Post-Op pain b lock at request of surgeon Block Type - Lower extremity: adductor c anal Positioning: supine ?? Laterality: left Block technique: ultrasound guided ?? Ultrasound image guidance used to locali ze target, identify at risk structures, and dynamically used to dire ct therapy to the target. Procedure was performed under sterile co nditions.Image(s) acquired and saved Injection technique: single injection Needle type: echogenic Gauge: 22G Length: 5 Test dose: yes- negative test dose ?? Incremental injection of local anestheti c with aspiration every:5cc Pain with needle advancement or injectio n of local anesthetic: no ?? Injected Medications: Injection(s), anes thetic agent(s) and/or steroid; See MAR UNIVERSAL PROTOCOL All relevant documentation and testing w ere reviewed and available. All required blood products, implants, devic es and or special equipment were made available as applicable. Pre-proced ure verification was conducted and the correct site was marked if required. A fire risk assessment was done as applicable. The procedural time-out w as conducted prior to performing the procedure and confirmed in a procedu ral pause. PRE-PROCEDURE DETAILS: ?? Appropriate hand hygiene, gown, cap, mas k, protective eyewear, sterile gloves, skin preparation, sterile drape, and strict aseptic technique were utilized as applicable for the procedure .: yes ?? Skin prep: chlorhexidine / alcohol SEDATION / ANESTHESIA Anesthesia method: local infiltration POST-PROCEDURE DETAILS: Procedure completed successfully: succes sful procedure Other complications: none Ekaterina N Real COMPRESSED AIR PILE DRIVER OPERATOR, AIRPLANE FUELER PROCEDURE/MINOR SURGICAL ORD ERABLES documented in this encounter Visit Diagnoses Not on filedocumented in this encounter Administered Medications Inactive Administered Medications - up to 3 most recent administrations Medication Order MAR Action Action Date Dose Rate Site bupivacaine PF 0.25 % (2.5 mg/mL) Given 10/03/2021 10:41 AM CDT 15 mL injection (MARCAINE) intrathecal, As needed, Starting on Fri10/03/21 at 1041, Anesthesia Intra-op dexmedeTOMIDine injection (PRECEDEX) Given 10/03/2021 10:41 AM CDT 50 mcg peripheral nerve block, As needed, Starting on Fri10/03/21 at 1041, Anesthesia Intra-op fentaNYL injection (SUBLIMAZE) Given 10/03/2021 10:41 AM CDT 50 mcg intravenous, As needed, Starting on Fri10/03/21 at 1035, Anesthesia Intra-op Given 10/03/2021 10:35 AM CDT 50 mcg lactated ringers Rate/Dose Verify 10/03/2021 10:47 AM CDT 20 mL/hr 20 mL/hr, intravenous, Continuous, Starting on Fri10/03/21 at 0945, Pre-Op New Bag 10/03/2021 10:29 AM CDT 20 mL/hr 20 mL/hr midazolam (PF) injection (VERSED) Given 10/03/2021 10:37 AM CDT 2 mg intravenous, As needed, Starting on Fri10/03/21 at 1035, Anesthesia Intra-op Given 10/03/2021 10:35 AM CDT 2 mg ondansetron (PF) injection (ZOFRAN) Given 10/03/2021 10:55 AM CDT 4 mg intravenous, As needed, Starting on Fri10/03/21 at 1055, Anesthesia Intra-op propofoL injection (DIPRIVAN) Given 10/03/2021 10:48 AM CDT 200 mg intravenous, As needed, Starting on Fri10/03/21 at 1048, Anesthesia Intra-op Given 10/03/2021 10:41 AM CDT 2 mg documented in this encounter Care Teams Booking Manager Relationship Specialty Start Date End Date Elsewhere, Pcp PCP - General 06/07/19 documented as of this encounter
--- OUTSIDE RECORDS SUMMARY | 2022-01-23 19:36 | XMS_ITS | Encounter Summary ---
:1960 Author Organization [facility] Address [address] [place] [address] Care Team Providers Name Role Phone Elsewhere, Pcp Primary Care Provider Unavailable Reason for Visit Reason Comments Arthroplasty Concerned about ROM Post-op Concerned about ROM Outpatient (Routine) - Pending Review Specialty Diagnoses / Procedures Referred By Contact Refer red To Contact Orthopedic Surgery Diagnoses post op Dk Mijares M.D. [facility] [address] [place] [phone] Referral ID Status Reason Start Date Expiration Date Visits V isits Requested Authorized [id number] Pending 08/21/2021 08/21/2022 1 1 Review Encounter Details Date Type Department Care Team Description 09/18/2021 Office Visit Department of Dk Mijares Follow Up E xamination Orthopedic Surgery meli Bui M.D. Postoperative Visit Arun Garcia [address] [place] [address] (Primary Dx) [place], [place] [id number] [place] [phone] [place]AMEL[place] GARCIA [place] [phone] (Work) [phone] Social History Tobacco Use Types Packs/Day Years [...] or relatives? How often do you attend mandaen or Patient refused 2021 druze services? 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 - 09/18/2021 2:00 PM CDT Hussein is a 60-year-old man who is here in regard to his right knee. He is status post a left totalknee arthroplasty due to a work-related injury. He returns today for followup. OBJECTIVE PHYSICAL EXAMINATION Musculoskeletal: His incision appears quite benign. His knee range of motion is from 2 to 3 degrees short of full extension to approximately 95 degrees of flexion. He is stable to varus and valgus stress and quadriceps. Strength is excellent. ASSESSMENT / PLAN Hussein is a 60-year-old man who is now 6 weeks or greater out from his total knee arthroplasty. Hisrange of motion is still lacking. I discussed the treatment options. Given his lack of progression of his range of motion, especially of flexion, we will make plans to proceed with manipulation under an esthesia. We will set this up in the near future with a preop workup done prior to surgery. documented in this encounter Plan of Treatment Upcoming Encounters Date Type Specialty Care Team Description 01/24/2022 Diagnostic Otorhinolaryngology Lara Snell Au.D. [address] [facility], [place] [phone] 01/29/2022 Office Visit Orthopedic Surgery Laurie Dumont APRN , C.N.P., D.N.P. [address] [facility], [place] [phone] (Wo rk) documented as of this encounter Visit Diagnoses Diagnosis Follow Up Examination Postoperative Visi t - Primary documented in this encounter Care Teams Sternman Relationship Specialty Start Date End Date Elsewhere, Pcp PCP - General 06/07/19 documented as of this encounter
--- OUTSIDE RECORDS SUMMARY | 2022-01-23 19:36 | XMS_ITS | Encounter Summary ---
:1960 Author Organization [facility] Address [address] [place] [address] Care Team Providers Name Role Phone Elsewhere, Pcp Primary Care Provider Unavailable Reason for Visit Physical Therapy (Routine) - Authorized Specialty Diagnoses / Procedures Referred By Contact Refer red To Contact Diagnoses Primary Osteoarthritis Knee Left Dk Mijares M.D. [facility] Procedures PT Ongoing treatment [address] [place] [phone] Referral ID Status Reason Start Date Expiration Date Visits V isits Requested Authorized [id number] Authorized 08/10/2021 05/18/2022 40 40 Encounter Details Date Type Department Care Team Description 08/27/2021 Clinical Support Department of Dk Mijares M.D. [address] [place] [phone] Primary Rehabilitation Dian Clarke, P.T. [address] [place], [place] [address] [place] [address] Osteoarthritis Knee Services in [address] [phone] Social History Tobacco Use Types Packs/Day Years [...] or relatives? How often do you attend zoroastrianism or Patient refused 2021 scientology services? Do you belong to any clubs or No 12/20/2021 organizations such as zoroastrianism groups, unions, fraAllied [employer] or athletic groups, or school groups? 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 - 08/27/2021 2:15 PM CDT Physical Therapy Outpatient Treatment Note SUBJECTIVE Patient's Name: Hussein Whittaker Referring Provider: Dk Mijares M.D. Visit Diagnosis: 1. Primary Osteoarthritis Knee Left Payor: [employer] / Plan: [employer] / Product Type: Indemnity / PT Next Certification Date: 08/08/2021 [facility] Visit Count: 6 Patient comments: Patient worked hard on his ROM all weekend and was pretty sore last night causing difficulty sleeping. Contact monitoring: PPE used during therapy: Therapist was wearing the following PPE throughout entire session: surgicalmask Patient was wearing a mask during therapy session: yes Additional Staff Present During Session: no OBJECTIVE Pain: left knee pain noted mainly over the left quad. Ortho Exam Left knee ROM 0-95 degrees. Independent SLR with mild extension lag. Ambulating with a straight cane safely and independently, mildly antalgic. TREATMENT Treatment today consisted of: Performed Sci-Fit Total body ergometer x8 minutes at a level 1 resistance. Performed standing knee flexion utilizing a stretch times 15 repetitions. Leg press for knee range of motion and light strengthening at 20 lb at 3 x 10 repetitions. Performed passive range of motion in a seated position for knee flexion. Knee range of motion was measured in supine. Performed patellar mobilizations. Perform straight leg raises 2 x 5 reps. Performed prolonged knee extension stretch with towel roll under the ankle times 30 seconds. Home Exercise Program/Education: TKA pathway Pt reports good compliance with his HEP. Assessment Clinical Impression: patient is 3 weeks s/p Left TKA. He is currently limited in ROM, strength whichare affecting his gait. Knee flexion is his greatest limitation at this time limited by pain and swelling. Strength has improved greatly over the last week with patient now able to do an independent SLR. He will continue to benefit from skilled PT to regain functional ROM and strength. Functional Goals and Timeframes: [...] Date: 09/21/2021 Plan Plan for next session: Rom and strengthening Time Spent with Patient Therapeutic Interventions Manual Therapy (min): 10 min Therapeutic Exercise (min): 20 min Time Tracking Total Timed Units (min): 30 min Total Treatment Time (min): 30 min documented in this encounter Plan of Treatment Upcoming Encounters Date Type Specialty Care Team Description 01/24/2022 Diagnostic Otorhinolaryngology Lara Snell Au.D. [address] [place], [place] [phone] 01/29/2022 Office Visit Orthopedic Surgery Laurie Dumont APRN , C.N.P., D.N.P. [address] [facility] [place] [phone] (Wo rk) documented as of this encounter Visit Diagnoses Diagnosis Primary Osteoarthritis Knee Left documented in this encounter Care Teams Assistant Professor Of Surgery Relationship Specialty Start Date End Date Elsewhere, Pcp PCP - General 06/07/19 documented as of this encounter
--- OUTSIDE RECORDS SUMMARY | 2022-01-23 19:36 | XMS_ITS | Encounter Summary ---
:1960 Author Organization [facility] Address [address] [place] [address] Care Team Providers Name Role Phone Elsewhere, Pcp Primary Care Provider Unavailable Reason for Visit Physical Therapy (Routine) - Authorized Specialty Diagnoses / Procedures Referred By Contact Refer red To Contact Diagnoses Primary Osteoarthritis Knee Left Dk Mijares M.D. [facility] Procedures PT Ongoing treatment [address] [place] [phone] Referral ID Status Reason Start Date Expiration Date Visits V isits Requested Authorized [id number] Authorized 08/10/2021 05/18/2022 40 40 Encounter Details Date Type Department Care Team Description 08/23/2021 Clinical Support Department of Dk Mijares M.D. [address] [place] [phone] Primary Rehabilitation Dian Clarke, P.T. [address] [place], [place] [address] [address] Osteoarthritis Knee Services in [address] [phone] Social History Tobacco Use Types Packs/Day Years [...] you attend anglican or Patient refused 2021 yazdanism services? Do you belong to any clubs or No 12/20/2021 organizations such as anglican groups, unions, [employer] or athletic groups, or school groups? 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 - 08/23/2021 2:00 PM CDT Physical Therapy Outpatient Treatment Note SUBJECTIVE Patient's Name: Hussein Whittaker Referring Provider: Dk Mijares M.D. Visit Diagnosis: 1. Primary Osteoarthritis Knee Left Payor: [employer]UR[employer] / Plan: [employer]UR[employer] / Product Type: Indemnity / PT Next Certification Date: 08/08/2021 [facility] Visit Count: 5 Patient comments: Patient reports he is feeling better today. He has been working hard on his exercises and trying to push further into his ROM during his exercises. Contact monitoring: PPE used during therapy: Therapist was wearing the following PPE throughout entire session: surgicalmask Patient was wearing a mask during therapy session: yes Additional Staff Present During Session: no OBJECTIVE Pain: Left knee pain, not rated on pain scale. Ortho Exam Left knee ROM 3-90/95 degrees. Patient is now able to do an independent SLR with 30 degree extension lag. Ambulating with a straight cane safely and independently, mildly antalgic. TREATMENT Treatment today consisted of: Perform Sci-Fit Total body ergometer x8 minutes at a level 1 resistance beginning at seat position 21 and ending on seat position 20. Performed standing knee flexion utilizing a stretch times 10 repetitions. Hamstring and gastroc stretch using a step times 30 seconds each. Performed standing partial squats times 10 repetitions. Initiated the leg flows for knee range of motion and light strengthening at 20 lb at 2 x 10 repetitions. Performed passive range of motion in a seated position for knee flexion. Knee range of motion was measured in supine and sitting. Performed patellar mobilizations. Perform straight leg raises times 10. Performed prolonged knee extension stretch with towel roll under the ankle times 30 seconds. Home Exercise Program/Education: TKA pathway Pt reports good compliance with his HEP. Assessment Clinical Impression: Hussein is 17 days status post a left total knee arthroplasty. Patient has had high levels of pain and swelling since surgery limiting his range of motion. Patient is demonstratingimproved range of motion today comparison to her previous treatment session. His pain levels are better and is swelling is slightly decreased. Patient is working hard on his home exercise program to exercises multiple times per day. Patient will continue to benefit from skilled physical therapy to regain functional range of motion and strength. Functional Goals and Timeframes: PT [...] Date: 09/21/2021 Plan Plan for next session: Range of motion and quad strengthening. Time Spent with Patient Therapeutic Interventions Manual Therapy (min): 10 min Therapeutic Exercise (min): 20 min Time Tracking Total Timed Units (min): 30 min Total Treatment Time (min): 30 min documented in this encounter Plan of Treatment Upcoming Encounters Date Type Specialty Care Team Description 01/24/2022 Diagnostic Otorhinolaryngology Lara Snell Au.D. [address] [facility], [place] [phone] 01/29/2022 Office Visit Orthopedic Surgery Laurie Dumont APRN C.N.P., D.N.P. [address] [facility], [place] [phone] (Wo rk) documented as of this encounter Visit Diagnoses Diagnosis Primary Osteoarthritis Knee Left documented in this encounter Care Teams Silviculture Professor Relationship Specialty Start Date End Date Elsewhere, Pcp PCP - General 06/07/19 documented as of this encounter
--- OUTSIDE RECORDS SUMMARY | 2022-01-23 19:36 | XMS_ITS | Encounter Summary ---
:1960 Author Organization [facility] Address [address] [place] [address] Care Team Providers Name Role Phone Elsewhere, Pcp Primary Care Provider Unavailable Reason for Visit Physical Therapy (Routine) - Authorized Specialty Diagnoses / Procedures Referred By Contact Refer red To Contact Diagnoses Primary Osteoarthritis Knee Left Dk Mijares M.D. [facility] Procedures PT Ongoing treatment [address] [place] [phone] Referral ID Status Reason Start Date Expiration Date Visits V isits Requested Authorized [id number] Authorized 08/10/2021 05/18/2022 40 40 Encounter Details Date Type Department Care Team Description 08/15/2021 Clinical Support Department of Dk Mijares M.D. [address] [place] [phone] Primary Rehabilitation Dian Clarke, P.T. [address] [place], [place] [address] [place] [address] Osteoarthritis Knee Services in [address] [phone] Social History Tobacco Use Types Packs/Day Years [...] or relatives? How often do you attend uatsdin or Patient refused 2021 pentecostalism services? Do you belong to any clubs or No 12/20/2021 organizations such as uatsdin groups, unions, fraSkinkers or athletic groups, or school groups? 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 - 08/15/2021 12:45 PM CDT Physical Therapy Outpatient Treatment Note SUBJECTIVE Patient's Name: Hussein Whittaker Referring Provider: Dk Mijares M.D. Visit Diagnosis: 1. Primary Osteoarthritis Knee Left Payor: [employer]UR[employer] / Plan: [employer]UR[employer] / Product Type: Indemnity / PT Next Certification Date: 08/08/2021 [facility] Visit Count: 3 Patient comments: Patient is reporting increased pain today. He is working hard on his home program. Contact monitoring: PPE used during therapy: Therapist was wearing the following PPE throughout entire session: surgicalmask Additional Staff Present During Session: no OBJECTIVE Pain: left knee pain 5-6/10 Patient ambulates with a FWW safely and independently. Antalgic gait, decreased push off phase of gait with decreased knee flexion. Ortho Exam Left knee ROM 3-90 degrees. Able to do a SLR with minimal assist and cueing of the quads x 1. TREATMENT Treatment today consisted of: Perform passive range of motion for left knee flexion in a seated position. AP glides to increase knee flexion. Contract relax techniques performed to increase knee ROM and decrease muscle guarding. Performed patellar mobilizations. Performed quad sets times 10 repetitions. Performed prolonged knee extension stretches at 3 x 30 seconds. Performed the Sci-Fit Total body ergometer times 8 minutes at a level 1 resistance. Home Exercise Program/Education: TKA pathway Pt reports good compliance with his HEP. Assessment Clinical Impression: Patient tolerated session with pain. Limited on ROM and strength. Functional Goals and Timeframes: [...] 01/24/2022 Diagnostic Otorhinolaryngology Lara Snell Au.D. [address] [place], [place] [phone] 01/29/2022 Office Visit Orthopedic Surgery Laurie Dumont APRN , C.N.P., D.N.P. [address] [place], [place] [phone] (Wo rk) documented as of this encounter Visit Diagnoses Diagnosis Primary Osteoarthritis Knee Left documented in this encounter Care Teams Teacher Of Gifted Students Relationship Specialty Start Date End Date Elsewhere, Pcp PCP - General 06/07/19 documented as of this encounter
--- OUTSIDE RECORDS SUMMARY | 2022-01-23 19:36 | XMS_ITS | Encounter Summary ---
:1960 Author Organization [facility] Address [address] [place] [address] Care Team Providers Name Role Phone Elsewhere, [...] or relatives? How often do you attend christianity or Patient refused 2021 anglican services? 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 [address] [place], [place] [phone] 01/29/2022 Office Visit Orthopedic Surgery Laurie Dumont APRN , C.N.P., D.N.P. [address] [facility], [place] [phone] (Wo rk) documented as of this encounter Procedures Procedure Name Priority Date/Time Associated Diagnosis Comme nts SURGERY IMAGE EXAM Routine 10/03/2021 7:15 AM Res ults for this CDT procedure are i n the results section. documented in this encounter Results Non-Radiology Image-Surgery Image Exam (10/03/2021 7:15 AM CDT) Specimen (Source) Anatomical Collection Method Collection Time Re ceived Time Location / / Volume Laterality 10/03/2021 7:15 AM CDT Narrative [facility] - 10/03/2021 10:54 AM CDT This order has been created [...] on filedocumented in this encounter Care Teams Haulpak Driver Relationship Specialty Start Date End Date Elsewhere, Pcp PCP - General 06/07/19 documented as of this encounter
--- OUTSIDE RECORDS SUMMARY | 2022-01-23 19:36 | XMS_ITS | Encounter Summary ---
:1960 Author Organization [facility] Address [address] [place] [address] Care Team Providers Name Role Phone Elsewhere, Pcp Primary Care Provider Unavailable Reason for Referral Physical Therapy (Routine) - Closed Specialty Diagnoses / Procedures Referred By Contact Refer red To Contact Diagnoses Arthroplasty Total Knee Replacement Status Post Left Pain Knee Left Dk Mijares M.D. [facility] Procedures PT Evaluate and treat [address] [place] [phone] Referral ID Status Reason Start Date Expiration Date Visits Requ ested Visits Authorized [id number] Closed 09/18/2021 09/18/2022 1 1 Outpatient (Routine) - Closed Specialty Diagnoses / Procedures Referred By Contact Refer red To Contact Orthopedic Surgery Diagnoses post op Dk Mijares M.D. [facility] [address] [phone] Referral ID Status Reason Start Date Expiration Date Visits Requ ested Visits Authorized [id number] Closed 09/18/2021 09/18/2022 1 1 Outpatient (Routine) - Closed Specialty Diagnoses / Procedures Referred By Contact Refer red To Contact Anesthesiology Diagnoses Preoperative Exam Dk Mijares M.D. [facility] [address] [phone] Referral ID Status Reason Start Date Expiration Date Visits Requ ested Visits Authorized [id number] Closed 09/18/2021 09/18/2022 1 1 Encounter Details Date Type Department Care Team Description 09/18/2021 Clinical Communication Department of Dk Mijares , Orthopedic Surgery in [place], [place] [address] [place] [address] [place] [phone] Social History Tobacco Use Types Packs/Day Years [...] or relatives? How often do you attend druze or Patient refused 2021 congregational services? Do you belong to any clubs or No 12/20/2021 organizations such as druze groups, unions, fraternal or athletic groups, or [...] minutes do you engage in exercise at is 40 min 12/20/2021 level? 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 - 09/18/2021 2:26 PM CDT Scheduled left knee manipulation on 10/03/[address] Mijares in [place]. CPM ordered and faxed. documented in this encounter Plan of Treatment Upcoming Encounters Date Type Specialty Care Team Description 01/24/2022 Diagnostic Otorhinolaryngology [facility]ara Snell Au.D. [address] [facility] [place] [phone] 01/29/2022 Office Visit Orthopedic Surgery Laurie Dumont, ANA , C.N.P., D.N.P. [address] [facility], [place] [phone] (Wo rk) Scheduled Referrals Name Type Priority Associated Diagnoses Order S chedule Pre Operative Outpatient Routine Preoperative Exam 1 Occurre nces Evaluation YARITZA Referral starting 07/2021 nurse consult until 12/20/19 23 (clinic) Orthopedic Surgery Outpatient Routine Expected: Post Op (clinic) Referral 10/16/2021, Expires: 2022 documented as of this encounter Results SARS Coronavirus-2 RNA, V Asymptomatic (10/01/2021 9:51 AM CDT) [facility] Method Time Signature SARS-CoV-2 Swab, 10/01/2021 ECLR [...] pe rformed using the Aptima SARS-CoV-2 assay ([employer] on the [place] Sys tem under emergency use authorization (EUA) by the U.S. Food and Drug Administ mitul. Fact sheets for this EUA assay can be fo und at the following links: For Healthcare Providers: https://www.fd a.gov/media/795484/download For Patients: https://www.fda.gov/media/ 057516/download Specimen Anatomical Collection Method Collection Time Receive d Time (Source) Location / / Volume Laterality Varies 10/01/2021 9:51 AM 3:09 (Nasopharynx) CDT PM CDT Dk Mijares M.D. LAB MICROBIOLOGY - GENERAL O RDERAROSSI Performing Organization Address City/State/ZIP Code Phon e Number [facility]- [address] [place] [address] [phone] [facility] [place] [address] System [address] documented in this encounter Visit Diagnoses Diagnosis Encounter For Preprocedural Laboratory E xamination (COVID-19) - Primary Arthroplasty Total Knee Replacement Stat us Post Left Pain Knee Left Preoperative Exam documented in this encounter Care Teams Inspector Filter Tip Relationship Specialty Start Date End Date Elsewhere, Pcp PCP - General 06/07/19 documented as of this encounter
--- OUTSIDE RECORDS SUMMARY | 2022-01-23 19:36 | XMS_ITS | Encounter Summary ---
:1960 Author Organization [facility] Address [address] [place] [address] Care Team Providers Name Role Phone Elsewhere, Pcp Primary Care Provider Unavailable Reason for Referral Outpatient (Routine) - Pending Review Specialty Diagnoses / Procedures Referred By Contact Refer red To Contact Orthopedic Surgery Diagnoses post op Dk Mijares M.D. [facility] Region [address] [place] [phone] Referral ID Status Reason Start Date Expiration Date Visits V isits Requested Authorized [id number] Pending 08/21/2021 08/21/2022 1 1 Review Outpatient (Routine) - Closed Specialty Diagnoses / Procedures Referred By Contact Refer red To Contact Diagnoses Aftercare Total Knee Arthroplasty Nieves Hunter APRN, [facility] Region Procedures DX Knee Left 3 Views C.N.P., D.N.P. [address] [place] [phone] Referral ID Status Reason Start Date Expiration Date Visits Requ ested Visits Authorized [id number] Closed 08/21/2021 08/21/2022 1 1 Reason for Visit Outpatient (Routine) - Pending Review Specialty Diagnoses / Procedures Referred By Contact Refer red To Contact Orthopedic Surgery Diagnoses Dk Mijares M.D. [facility] Region [address] [place] [phone] Referral ID Status Reason Start Date Expiration Date Visits V lesly Requested Authorized [id number] Pending 06/28/2021 06/28/2022 1 1 Review Encounter Details Date Type Department Care Team Description 08/21/2021 Office Visit Department of Dk Mijares, Esme lugo Total Knee Orthopedic Surgery in [place] Arthroplasty (Primary [place], [address] [facility] [place] [place] [address] [address] [place], [place] [phone] (Work) [phone] Social History Tobacco Use Types Packs/Day Years [...] or relatives? How often do you attend bahai or Patient refused 2021 shinto services? 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 - 08/21/2021 9:45 AM CDT HISTORY OF PRESENT ILLNESS: Hussein is a 60-year-old man who is seen in regard to his left knee. He is status post a left total knee arthroplasty due to a work-related injury to this knee and subsequently has been recovering. OBJECTIVE PHYSICAL EXAMINATION Musculoskeletal: On examination of his knee, his incision appears benign. His knee range of motion is from 0 to 100 degrees of flexion. He is stable to varus and valgus stress, and his quadriceps strength is nearly 5/5. DIAGNOSTICS X-rays of his left knee demonstrate total knee arthroplasty appears in good position without any signs of loosening. ASSESSMENT / PLAN Hussein is a 60-year-old man status post total knee arthroplasty. At this point in time, we will have him continue to work on his exercise program with the help of Physical Therapy to regain his full knee range of motion. We will plan to see him back in another 4 weeks to make sure that motion is returning back towards normal. Otherwise, we will continue with pain management as we have been doing. documented in this encounter Plan of Treatment Upcoming Encounters Date Type Specialty Care Team Description 01/24/2022 Diagnostic Otorhinolaryngology Lara Snell Au.D. [address] [place], [place] [phone] 01/29/2022 Office Visit Orthopedic Surgery Laurie Dumont, ANA , C.N.P., D.N.P. [address] [place], [place] [phone] (Wo rk) Scheduled Referrals Name Type Priority Associated Order Schedule Diagnoses Orthopedic Surgery Outpatient Referral Routine Ex pected: Post Op (clinic) 09/18/2021 (Approximate), Expires: 11/20/2022 documented as of this encounter Results DX [...] Visit Diagnoses Diagnosis Aftercare Total Knee Arthroplasty - Prim marissa Aftercare Total Knee Arthroplasty documented in this encounter Care Teams Senior Compliance Officer Relationship Specialty Start Date End Date Elsewhere, Pcp PCP - General 06/07/19 documented as of this encounter
--- OUTSIDE RECORDS SUMMARY | 2022-01-23 19:36 | XMS_ITS | Encounter Summary ---
:1960 Author Organization [facility] Address [address] [place] [address] Care Team Providers Name Role Phone Elsewhere, Pcp Primary Care Provider Unavailable Reason for Visit Physical Therapy (Routine) - Authorized Specialty Diagnoses / Procedures Referred By Contact Refer red To Contact Diagnoses Primary Osteoarthritis Knee Left Dk Mijares M.D. [facility] Procedures PT Ongoing treatment [address] [place] [phone] Referral ID Status Reason Start Date Expiration Date Visits V isits Requested Authorized [id number] Authorized 08/10/2021 05/18/2022 40 40 Encounter Details Date Type Department Care Team Description 09/24/2021 Clinical Support Department of Dk Mijares M.D. [address] [place] [phone] Primary Rehabilitation Maria Luisa Chaparro, P.T. Osteoarthritis Knee Services in [place] [address] [place] [phone] Social History Tobacco Use Types Packs/Day Years [...] or relatives? How often do you attend adventism or Patient refused 2021 anglican services? 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 Visit Diagnosis: 1. Primary Osteoarthritis Knee Left Reason for Referral: PTeval and treat, TKA Onset Date: 08/06/21 Payor: [employer]URANCE / Plan: [employer]URANCE / Product Type: Indemnity / PT Next Certification Date: 08/08/2021 [facility] Visit Count: 13 History of Present Illness: Patient is a 60-year-old male who is status post left Garfield assisted TKA Patient comments: Pt felt very sore after last session in thigh musculature due to weakness. He states he was sore for 4 days following last session. His knee is doing well, with less throbbing noticedat night. It continues to be stiff and he is a little nervous in regards to upcoming manipulation procedure. Contact monitoring: PPE used during therapy: Therapist was wearing the following PPE throughout entire session: surgicalmask and eye protection Patient was wearing a mask during therapy session: yes OBJECTIVE Pain: L knee soreness, does not provide numeric value Gait: Pt ambulates into therapy dept with quad cane but is able to ambulate during session without AD. He does have antalgic gait with decreased stance time on L and decreased knee flexion. ?? Range of motion: L knee flexion to 106 deg in supine with PT assist TREATMENT Treatment today consisted of: Manual Therapy: -STM to L quad Therapeutic Exercise: -sci-fit bike, L1.5, x9 minutes, up to seat 16 for knee mobility -standing knee flexion stretch on second step, x20 repetitions -DL press, 30#, 3x12 repetitions, deeper position for knee flexion -supine heel slides, 2x12 repetitions with slider and PT assist -supine bridges, 2x10 repetitions Home Exercise Program/Education: Continue TKA protocol. Patient reports good HEP compliance. Assessment Clinical Impression: Pt tolerated session well. He is maintaining current ROM but has ROM deficits. Focusing more on quad strength at this time due to upcoming manipulation scheduled for 10/03. Encouraged pt to focus on quad strength at home. Also encouraged frequent rest [place] to stretch his knee. He will continue to benefit from PT services in order for improved functional mobility and strength. Functional Goals and Timeframes: PT [...] current plan Plan for next session: progress ROM and quad strength Time Spent with Patient Therapeutic Interventions Manual Therapy (min): 5 min Therapeutic Exercise (min): 27 min Time Tracking Total Timed Units (min): 32 min Total Treatment Time (min): 32 min documented in this encounter Plan of Treatment Upcoming Encounters Date Type Specialty Care Team Description 01/24/2022 Diagnostic Otorhinolaryngology Lara Snell Au.D. [address] [place], [place] [phone] 01/29/2022 Office Visit Orthopedic Surgery Laurie Dumont, ANA , C.N.P., D.N.P. [address] [place], [place] [phone] (Wo rk) documented as of this encounter Visit Diagnoses Diagnosis Primary Osteoarthritis Knee Left documented in this encounter Care Teams Market Gardener Relationship Specialty Start Date End Date Elsewhere, Pcp PCP - General 06/07/19 documented as of this encounter
--- OUTSIDE RECORDS SUMMARY | 2022-01-23 19:36 | XMS_ITS | Encounter Summary ---
:1960 Author Organization [facility] Address [address] [place] [address] Care Team Providers Name Role Phone Elsewhere, Pcp Primary Care Provider Unavailable Reason for Visit Auth/Cert Specialty Diagnoses / Procedures Referred By Contact Refer red To Contact Diagnoses Pain Knee Left Arthroplasty Total Knee Replacement Status Post Left Pain Knee Left [M25.562] Arthroplasty Total Knee Replacement Status Post Left [Z96.652] Procedures NC MANIP KNEE JT W ANES MANIPULATION KNEE Referral ID Status Reason Start Date Expiration Date Visits Requ ested Visits Authorized [id number] 1 1 Encounter Details Date Type Department Care Team Description 10/03/2021 Surgery [facility] MAIN OR Dk Mijares, MANIPULATION KNEE [address] [place] [phone] [address] [phone] [place] [phone] (Wo rk) Social History Tobacco Use Types Packs/Day Years [...] you attend christianity or Patient refused 2021 islam services? 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 [address] [place], [place] [phone] 01/29/2022 Office Visit Orthopedic Surgery Laurie Dumont APRN , C.N.P., D.N.P. [address] [place], [place] [phone] (Wo rk) Scheduled Referrals [...] Stat us Post Left Pain Knee Left Arthroplasty Total Knee Replacement [...] 1029 (New Bag - Provider: Janae Little RFarshadNFarshad)1047 (Rate/Dose Verify - Provider: Ekaterina Noble APRN, TEENA)1106 (Anesthesia Volume Adjustment - Provider: Ekaterina Noble APRN, TEENA)1230 (Stopped - Provider: Sheri Gracia RFarshadNFarshad) 20 mL/hr, intravenous, Continuous, Starting on Fri10/03/21 [...] injection documented in this encounter Care Teams Air Cargo Specialist Relationship Specialty Start Date End Date Elsewhere, Pcp PCP - General 06/07/19 documented as of this encounter
--- OUTSIDE RECORDS SUMMARY | 2022-01-23 19:36 | XMS_ITS | Encounter Summary ---
:1960 Author Organization [facility] Address [address] [place] [address] Care Team Providers Name Role Phone Elsewhere, Pcp Primary Care Provider Unavailable Reason for Visit Physical Therapy (Routine) - Authorized Specialty Diagnoses / Procedures Referred By Contact Refer red To Contact Diagnoses Primary Osteoarthritis Knee Left Dk Mijares M.D. [facility] Procedures PT Ongoing treatment [address] [place] [address] Referral ID Status Reason Start Date Expiration Date Visits V isits Requested Authorized [id number] Authorized 08/10/2021 05/18/2022 40 40 Encounter Details Date Type Department Care Team Description 08/13/2021 Clinical Support Department of Dk Mijares M.D. [address] [place] [phone] Primary Rehabilitation Dian Clarke, P.T. [address] [place] [address] [place] [address] Osteoarthritis Knee Services in [address] [phone] Social History Tobacco Use Types Packs/Day Years [...] you attend holiness or Patient refused 2021 methodist services? Do you belong to any clubs or No 12/20/2021 organizations such as holiness groups, unions, fraSchool of Everything or athletic groups, or school groups? How [...] place to sleep or slept in a skilled nursing (including now)? Education Answer Date Recorded What is the highest level of school you have completed or 12 th grade 04/11/2021 the highest degree you have received? 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 - 08/13/2021 12:45 PM CDT Physical Therapy Outpatient Treatment Note SUBJECTIVE Patient's Name: Hussein Whittaker Referring Provider: Dk Mijares M.D. Visit Diagnosis: 1. Primary Osteoarthritis Knee Left Payor: [facility] / Plan: [facility] [place] / Product Type: PPO / PT Next Certification Date: 08/08/2021 [facility] Visit Count: 2 Patient comments: Patient has no new complaints. Contact monitoring: PPE used during therapy: Therapist was wearing the following PPE throughout entire session: surgicalmask Patient was wearing a mask during therapy session: yes Additional Staff Present During Session: no OBJECTIVE Pain: left knee pain Surgical dressing was removed. Zip line is intact. No signs of infection noted. Ortho Exam Left knee ROM 3-90 degrees. TREATMENT Treatment today consisted of: Perform passive range of motion for left knee flexion in a seated position. Performed patellar mobilizations. Performed quad sets times 10 repetitions. Performed prolonged knee extension stretches at 3x 30 seconds. Performed the [email or web address] Total body ergometer times 10 minutes at a level 1 resistance. Home Exercise Program/Education: TKA pathway Pt reports good compliance with his HEP. Assessment Clinical Impression: Patient tolerated treatment session well. Patient is progressing nicely with range of motion. Patient does consist in you to have moderate swelling. Functional Goals and Timeframes: PT Goal #1: [...] quad strengthening. Time Spent with Patient Therapeutic Exercise (min): 30 min Time Calculation Total Timed Units (min): 30 min Total Treatment Time (min): 30 min documented in this encounter Plan of Treatment Upcoming Encounters Date Type Specialty Care Team Description 01/24/2022 Diagnostic Otorhinolaryngology Lara Snell Au.D. [address] [place], [place] [phone] 01/29/2022 Office Visit Orthopedic Surgery Laurie Dumont APRN , C.N.P., D.N.P. [address] [place], [place] [phone] (Wo rk) documented as of this encounter Visit Diagnoses Diagnosis Primary Osteoarthritis Knee Left documented in this encounter Care Teams Peanut Picker Relationship Specialty Start Date End Date Elsewhere, Pcp PCP - General 06/07/19 documented as of this encounter
--- OUTSIDE RECORDS SUMMARY | 2022-01-23 19:37 | XMS_ITS | Encounter Summary ---
:1960 Author Organization [facility] Address [address] [place] [address] Care Team Providers Name Role Phone Elsewhere, Pcp Primary Care Provider Unavailable Encounter Details Date Type Department Care Team Description 04/18/2021 Ancillary Procedure Department of Gastroenterology Social History Tobacco Use Types Packs/Day Years [...] or relatives? How often do you attend pentecostalism or Patient refused 2021 muslim services? 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 [address] [facility] [place] [phone] 01/29/2022 Office Visit Orthopedic Surgery Laurie Dumont APRN C.N.PFarshad, D.N.P. [address] [facility] [place], [place] [phone] (Wo rk) documented as of this encounter Procedures Procedure Name Priority Date/Time Associated Comments Diagnosis GASTROENTEROLOGY IMAGE Routine 04/18/2021 1:40 Re sults for this EXAM PM MIDDLE SCHOOL LIBRARIAN procedure are i n the results section. documented in this encounter Results Colonoscopy-Gastroenterology Image Exam (04/18/2021 1:40 PM MIDDLE SCHOOL LIBRARIAN) Specimen (Source) Anatomical Collection Method Collection Time Re ceived Time Location / / Volume Laterality 04/18/2021 1:36 PM MIDDLE SCHOOL LIBRARIAN Narrative [facility] - 04/18/2021 2:21 PM MIDDLE SCHOOL LIBRARIAN This order has been created and auto-finalized [...] on filedocumented in this encounter Care Teams Wildlife Refuge Manager Relationship Specialty Start Date End Date Elsewhere, Pcp PCP - General 06/07/19 documented as of this encounter
--- OUTSIDE RECORDS SUMMARY | 2022-01-23 19:37 | XMS_ITS | Encounter Summary ---
:1960 Author Organization [facility] Address [address] [place] [address] Care Team Providers Name Role Phone Elsewhere, Pcp Primary Care Provider Unavailable Reason for Visit Reason Comments Pre-op Exam Surgery on 08/06 Outpatient (Routine) - Pending Review Specialty Diagnoses / Procedures Referred By Contact Refer red To Contact Family Medicine Diagnoses Primary Osteoarthritis Knee Left Dk Mijares, [facility] [address] [address] Referral ID Status Reason Start Date Expiration Date Visits V isits Requested Authorized [id number] Pending 06/28/2021 06/28/2022 1 1 Review Encounter Details Date Type Department Care Team Description 07/17/2021 Office Visit Department of Chica Diaz Preop erative Exam (Primary Dx); Medicine, Yuki Bui, ANA, C.N.P., Primary Osteoarthritis Knee Left; [facility], in D.N.P. Hypertension Essential Primary; [place] [phone] Morbid Sandra re Obesity Due To Excess Calories (HCC); [facility] Gastroesophageal Reflux Disease Without Esophagitis [address] [place] [address] Yuki Garcia [place] [phone] Social History Tobacco Use Types Packs/Day [...] or relatives? How often do you attend religion or Patient refused 2021 sikh services? Do you belong to any clubs or No 12/20/2021 organizations such as religion groups, unions, fraShanghai [employer] or athletic groups, or school groups? How [...] place to sleep or slept in a correction (including now)? Education Answer Date Recorded What is the highest level of school you have completed or 12 th grade 04/11/2021 the highest degree you have received? 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 documented as of this encounter Last Filed Vital Signs Vital Sign Reading Time Taken Comments Blood Pressure 119/82 07/17/2021 3:49 PM TELEVISION INSTALLER HELPER Pulse 88 07/17/2021 3:49 PM TELEVISION INSTALLER HELPER Temperature 36.4 ??C (97.5 ??F) 07/17/2021 3:49 PM TELEVISION INSTALLER HELPER Respiratory Rate - - Oxygen Saturation 98% 07/17/2021 3:49 PM TELEVISION INSTALLER HELPER Inhaled Oxygen Concentration - - Weight 117 kg (257 lb 0.9 oz) 07/17/2021 3:49 PM TELEVISION INSTALLER HELPER Height 181.5 cm (5' 11.46) 07/17/2021 3:49 PM TELEVISION INSTALLER HELPER Body Mass Index 35.39 07/17/2021 3:49 PM TELEVISION INSTALLER HELPER documented in this encounter Progress Notes Chica Rodriguez APRN, C.N.P., D.N.P. - 07/17/2021 4:00 PM CST SUBJECTIVE DATE OF SURGERY: 08/06/21 DATE OF EXAM: 07/17/21 TYPE OF SURGERY: Robotic-assisted Left Knee Total Arthroplasty CHIEF COMPLAINT/REASON FOR VISIT Preoperative consultation. HISTORY OF PRESENT ILLNESS Hussein is a pleasant 60 y.o. male with a history of hypertension, GERD, diverticulosis, and osteoarthritis that presents to the clinic today for comprehensive preoperative exam. Procedure is: - Intermediate Risk (cardiac risk <5%): CEA, head/neck surgery, intraabdominal or intrathoracic surgery, orthopedic surgery, prostate surgery RISK STRATIFICATION Functional status: - Functional Class I: Able to perform >7 METS REVIEW OF SYSTEMS There is no history of difficulty with anesthesia, bleeding tendencies, blood clots, congestive heart failure, heart valve disease, heart arrhythmias, chest pain or dyspnea. The patient is able to climb a flight of stairs without any chest pain, dyspnea or extreme fatigue. Patient denies any recent illness. No fevers or signs of upper respiratory tract infection. Review of systems is otherwise negative with the exceptions of the positives/negatives listed above. OBJECTIVE VITAL SIGNS Vitals: 07/17/21 1549 BP: 119/82 Pulse: 88 Temp: 36.4 ??C SpO2: 98% Stop Bang (BALDO) Total Score: 6 PHYSICAL EXAMINATION General: Awake, alert and oriented x3, comfortable. Affect normal. HEENT: Pupils equal, round, reactive to light. Extraocular movements intact. Conjunctivae not injected. External auditory canals are clear. Nasopharynx without erythema. No tonsillar hypertrophy or exudate. Mucous membranes are moist. Dentition and gums intact. Neck supple without lymphadenopathy. Mall ampati score 1. Heart: Regular rate and rhythm. No murmurs, gallops or rubs. Lungs: Clear to auscultation bilaterally. Abdomen: Positive bowel sounds in all 4 quadrants. Soft, nondistended, nontender. No masses. Extremities: Warm and well perfused. No cyanosis or edema. Skin: No erythema or rashes. No open sores or ulcers. ASSESSMENT / PLAN IMPRESSION/REPORT/PLAN: #1 Preoperative Exam Blood work and EKG is WNL today. This patient has been deemed to be MEDICALLY ACCEPTABLE for the planned surgery/procedure. History of Heart disease: none History of Lung disease: none Stop Bang Total Score: 6 Other risk factors: Hypertension, obesity #2 Primary Osteoarthritis Knee Left Proceed with planned procedure. #3 Hypertension Essential Primary Blood pressure well controlled today. #4 Morbid Severe Obesity Due To Excess Calories (HCC) Counseled on weight loss. #5 Gastroesophageal Reflux Disease Without Esophagitis No acute concerns. Preoperative instructions discussed and understanding indicated: Follow all preop hospital/center instructions. IF TAKING ASPIRIN/NSAIDs: Stop aspirin/NSAIDs 1 week before procedure and resume 1 day after the procedure unless instructed otherwise. IF TAKING BERNABE INHIBITOR OR ARB (LISINOPRIL OR LOSARTAN): Hold BERNABE inhibitor/ARB/diuretic on the day of the procedure and resume 1 day after the procedure unless instructed otherwise. IF TAKING a DIURETIC (LASIX or HCTZ or spironolactone): Please hold the on the day of the procedure and resume 1 day after the procedure unless instructed otherwise. IF TAKING SUPPLEMENTS: Stop all supplements 1 week prior to procedure and may resume 1 day after the procedure unless instructed otherwise. Patient was instructed to follow up in primary care with concerns. Plan was discussed with patient and is in agreement with plan. All questions were answered, side effects of any/all new medications were discussed. Patient left in no acute distress. Ready to learn. No apparent learning barriers were identified. Learning preferences include listening. Explained diagnosis and treatment plan. Patient/Child/Caregiver expressed understanding of the content. Total time: 20 minutes VISION INSTALLER HELPER documented in this encounter Plan of Treatment Upcoming Encounters Date Type Specialty Care Team Description 01/24/2022 Diagnostic Otorhinolaryngology Lara Snell Au.D. [address] [facility], [place] [phone] 01/29/2022 Office Visit Orthopedic Surgery Laurie Dumont APRN , C.N.P., D.N.P. [address] [facility], [place] [phone] (Wo rk) documented as of this encounter Procedures Procedure Name Priority Date/Time Associated Diagnosis Comme nts CBC WITHOUT Routine 07/17/2021 4:40 PM Preoperative Exam Resu lts for this DIFFERENTIAL, B TELEVISION INSTALLER HELPER procedure ar e in the results section. BASIC METABOLIC Routine 07/17/2021 4:40 PM Preoperative Exam R esults for this PANEL, S/P TELEVISION INSTALLER HELPER procedure are i n the results section. documented in this encounter Results CBC without Differential (07/17/2021 4:40 PM TELEVISION INSTALLER HELPER) athologist Signature Hemoglobin 14.3 13.2 - 07/17/2021 CNFL 16.6 g/dL 4:50 PM TELEVISION INSTALLER HELPER Hematocrit 42.4 38.3 - 07/17/2021 CNFL 48.6 % 4:50 PM TELEVISION INSTALLER HELPER Erythrocytes 4.46 4.35 - 07/17/2021 CNFL 5.65 4:50 PM TELEVISION INSTALLER HELPER x10(12)/L MCV 95.1 78.2 - 07/17/2021 CNFL 97.9 fL 4:50 PM TELEVISION INSTALLER HELPER RBC Distrib Width 12.5 11.8 - 07/17/2021 CNFL 14.5 % 4:50 PM TELEVISION INSTALLER HELPER Platelet Count 241 135 - 317 07/17/2021 CNFL x10(9)/L 4:50 PM TELEVISION INSTALLER HELPER Leukocytes 8.4 3.4 - 9.6 07/17/2021 CNFL x10(9)/L 4:50 PM TELEVISION INSTALLER HELPER Specimen Anatomical Collection Method Collection Time Receive d Time (Source) Location / / Volume Laterality Blood (Blood, 07/17/2021 4:40 PM 07/18/19 4:45 Venous) TELEVISION INSTALLER HELPER PM TELEVISION INSTALLER HELPER Chica Rodriguez APRN, C.N.P., D.N.P. LAB BLOOD ADD-ON Performing Organization Address City/State/[facility] Code Phon e Number [id number] [place] [address] [place] [address] System [address] Basic Metabolic Panel (07/17/2021 4:40 PM TELEVISION INSTALLER HELPER) athologist Signature Potassium, P 3.7 3.6 - 5.2 07/17/2021 CNFL mmol/L 5:06 PM TELEVISION INSTALLER HELPER Sodium, P 140 135 - 145 07/17/2021 CNFL mmol/L 5:06 PM TELEVISION INSTALLER HELPER Chloride, P 102 98 - 107 07/17/2021 CNFL mmol/L 5:06 PM TELEVISION INSTALLER HELPER Bicarbonate, P 28 22 - 29 07/17/2021 CNFL mmol/L 5:06 PM TELEVISION INSTALLER HELPER Anion Gap, P 10 7 - 15 07/17/2021 CNFL 5:06 PM TELEVISION INSTALLER HELPER BUN (Blood Urea 20 8 - 24 07/17/2021 CNFL Nitrogen), P mg/dL 5:06 PM TELEVISION INSTALLER HELPER Creatinine 1.05 0.74 - 07/17/2021 CNFL 1.35 mg/dL 5:06 PM TELEVISION INSTALLER HELPER eGFR-Black/Afric 88 >=60 07/17/2021 CNFL an Armenian mL/min/BSA 5:06 PM TELEVISION INSTALLER HELPER Comment: ----ADDITIONAL INFORMATION---- Estimated GFR calculated using the 2009 CKD_EPI creatinine equation. eGFR Non-Black/ 76 >=60 mL/min/BSA 5:06 PM TELEVISION INSTALLER HELPER CNFL Comment: ----ADDITIONAL INFORMATION---- Estimated GFR calculated using the 2009 CKD_EPI creatinine equation. Calcium, Total, P 10.2 8.8 - 10.2 mg/dL 07/17/2021 5:06 PM TELEVISION INSTALLER HELPER CNFL Glucose, P 120 70 - 140 mg/dL 07/17/2021 5:06 PM TELEVISION INSTALLER HELPER C NFL Specimen Anatomical Collection Method Collection Time Receive d Time (Source) Location / / Volume Laterality Blood (Blood, 07/17/2021 4:40 PM 07/18/19 4:45 Venous) TELEVISION INSTALLER HELPER PM TELEVISION INSTALLER HELPER Chica Rodriguez APRN, C.N.P., D.N.P. LAB BLOOD ADD-ON Performing Organization Address City/State/ZIP Code Phon e Number [facility]- [address] [place] [address] [place] [address] System in [address] documented in this encounter Visit Diagnoses Diagnosis Preoperative Exam - Primary Primary Osteoarthritis Knee Left Hypertension Essential Primary Morbid Severe Obesity Due To Excess Mary myra (HCC) Gastroesophageal Reflux Disease Without Esophagitis documented in this encounter Care Teams Mapping Pilot Relationship Specialty Start Date End Date Elsewhere, Pcp PCP - General 06/07/19 documented as of this encounter
--- OUTSIDE RECORDS SUMMARY | 2022-01-23 19:37 | XMS_ITS | Encounter Summary ---
:1960 Author Organization [facility] Address [address] [place] [address] Care Team Providers Name Role Phone Elsewhere, Pcp Primary Care Provider Unavailable Encounter Details Date Type Department Care Team Description 05/30/2021 Hospital Encounter Department of Ashley Chapman strative Purpose Laboratory Medicine Adrian Mcgarry Exam in [address] [address] [place], [place] [phone] (Work) [phone] Social History Tobacco Use Types Packs/Day Years [...] or relatives? How often do you attend evangelical or Patient refused 2021 christian services? 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 lisinopriL Take 20 mg by 0 03/05/2021 (PRINIVIL,ZESTRIL) 20 mg mouth daily. tablet omeprazole (for_PriLOSEC) Take 1 capsule by 0 20 mg capsule mouth daily. GaviLyte-G 236-22.74-6.74 0 03/05/2021 07/17/2021 -5.86 gram solution imiquimod (for_ALDARA) 5 % Apply 1 0 7 07/03/2021 cream application topically 2 (two) times a week. ketoconazole (NIZORAL) 2 % Apply 1 240 mL 5 8 10/23/2021 shampoo application topically daily. documented as of this encounter Plan of Treatment Upcoming Encounters Date Type Specialty Care Team Description 01/24/2022 Diagnostic Otorhinolaryngology Lara Snell Au.D. [address] [facility], [place] [phone] 01/29/2022 Office Visit Orthopedic Surgery Laurie Dumont APRN , C.N.P., D.N.P. [address] [facility], [place] [phone] (Wo rk) documented as of this encounter Visit Diagnoses Diagnosis Administrative Purpose Exam documented in this encounter Care Teams Gravity Prospecting Observer Helper Relationship Specialty Start Date End Date Elsewhere, Pcp PCP - General 06/07/19 documented as of this encounter
--- OUTSIDE RECORDS SUMMARY | 2022-01-23 19:37 | XMS_ITS | Encounter Summary ---
:1960 Author Organization [facility] Address [address] [place] [address] Care Team Providers Name Role Phone Elsewhere, Pcp Primary Care Provider Unavailable Reason for Referral MRI/CAT/PET Scan (Routine) - Closed Specialty Diagnoses / Procedures Referred By Contact Refer red To Contact Radiology Diagnoses Primary Osteoarthritis Knee Left Dk Mijares M.D. [facility] [place] [facility] Procedures CT Knee Left without IV Contrast [address] [place] [address] Referral ID Status Reason Start Date Expiration Date Visits Requ ested Visits Authorized [id number] Closed 07/02/2021 08/01/2021 1 1 E'S CLERK Specialty Diagnoses / Procedures Referred By Contact Refer red To Contact Dk Mijares M .D. [facility] [place] [facility] [address] [place] [address] Referral ID Status Reason Start Date Expiration Date Visits Requ ested Visits Authorized Scheduling Instructions Left total knee arthroplasty hysical Therapy (Routine) - Pending Review Specialty Diagnoses / Procedures Referred By Contact Refer red To Contact Diagnoses Primary Osteoarthritis Knee Left Dk Mijares M.D. [facility] [place] [facility] Procedures PT Evaluate and treat [address] [place] [address] Referral ID Status Reason Start Date Expiration Date Visits V isits Requested Authorized [id number] Pending 06/28/2021 06/28/2022 1 1 Review E'S CLERK Outpatient (Routine) - Pending Review Specialty Diagnoses / Procedures Referred By Contact Refer red To Contact Family Medicine Diagnoses Primary Osteoarthritis Knee Left Dk Mijares [facility] [address] [place] [phone] Referral ID Status Reason Start Date Expiration Date Visits V isits Requested Authorized [id number] Pending 06/28/2021 06/28/2022 1 1 Review E'S CLERK Outpatient (Routine) - Pending Review Specialty Diagnoses / Procedures Referred By Contact Refer red To Contact Anesthesiology Diagnoses Primary Osteoarthritis Knee Left Dk Mijares [facility] Adrian [address] [place] [address] Referral ID Status Reason Start Date Expiration Date Visits V isits Requested Authorized [id number] Pending 06/28/2021 06/28/2022 1 1 Review E'S CLERK Outpatient (Routine) - Pending Review Specialty Diagnoses / Procedures Referred By Contact Refer red To Contact Orthopedic Surgery Diagnoses Dk Mijares M.D. [facility] [address] [place] [phone] Referral ID Status Reason Start Date Expiration Date Visits V isits Requested Authorized [id number] Pending 06/28/2021 06/28/2022 1 1 Review E'S CLERK Encounter Details Date Type Department Care Team Description 06/28/2021 Comprehensive Visit Department of Dk Mijares Orthopedic Surgery Adrian Bui Osteoarthritis Knee in Maldonado Flores, [address] [place], [place] [address]jesus Left (Primary Dx) [place] JULIAN Lassiter [address] [address] JULIAN LASSITER [phone] (Work) [phone] Social History Tobacco Use Types Packs/Day Years [...] attend latter day or Patient refused 2021 sikh services? Do [...] at Date Recorded Male 06/23/2021 7:46 PM JUDGE'S CLERK documented as of this encounter Consult Notes Dk Mijares M.D. - 06/28/2021 3:30 PM CST HISTORY OF PRESENT ILLNESS Hussein is a 60-year-old man who is here in regard to his left knee. He sustained a work-related injury to his left knee on 05/30/2021 where he ran his foot into something while at work, twisting his knee and causing significant increased pain. He, prior to this, had undergone a previous knee arthroscopy many years ago and did well and had really no difficulties with his knee or his function since that time, but now the knee has become severely painful and difficult to function with. So far, he has tried anti-inflammatory medications without significant improvement in his symptoms. He has also beenworking on a physical therapy exercise program without significant improvement as well. The pain is really quite severe and he has difficulties with normal ambulation. He has had to have been restricted at work at this point in time due to his lack of improvement from his pain. OBJECTIVE PHYSICAL EXAMINATION Examination of his knee, he lacks approximately 5 degrees of extension. His flexion is to 110 degrees. He is stable to varus and valgus stress, but does have pseudolaxity with valgus stress. He has severe tenderness along the medial joint line in particular. DIAGNOSTICS X-rays of his left knee demonstrate severe degenerative changes to the medial compartment and more moderate degenerative changes of the patellofemoral joint. ASSESSMENT / PLAN #1 Hussein is a 60-year-old man who had been doing well with a knee that had some problems prior to this, however, he had no significant symptoms and this injury has now caused significant difficultieswith his knee where his function has dramatically deteriorated I discussed with him the treatment options. Given the severity of his symptoms and his lack of improvement with alternative measures, we will make plans to proceed with a left total knee arthroplasty. He understands the risks, benefits, and alternatives to this procedure and desires to proceed. E'S CLERK documented in this encounter Plan of Treatment Upcoming Encounters Date Type Specialty Care Team Description 01/24/2022 Diagnostic Otorhinolaryngology Lara Snell Au.D. [address] [place], [place] [phone] 01/29/2022 Office Visit Orthopedic Surgery Laurie Dumont, ANA , C.N.P., D.N.P. [address] [place], [place] [phone] (Wo rk) Scheduled Referrals Name Type Priority Associated Diagnoses Order S [facility] Orthopedic Surgery Outpatient Referral Routine Ex pected: Post Op (clinic) 08/06/2021, Expires: 09/25/2022 Pre Operative Outpatient Referral Routine Primary Osteoarthrit is Expected: Evaluation YARITZA Knee Left 08/06/2021, nurse consult Expires: (clinic) 09/25/2022 Primary Care - YARITZA Outpatient Referral Routine Primary Osteoar thritis Expected: consult (clinic) Knee Left 08/06/2021, Expires: 09/25/2022 Orthopedic Surgery Outpatient Referral Routine Primary Osteoar thritis Expected: - Group education Knee Left 08/06/2021 , visit (clinic) Expires: 09/25/2022 documented as of this encounter Results SARS Coronavirus-2 RNA, V Asymptomatic (08/03/2021 10:33 AM CDT) [facility] Method Time Signature SARS-CoV-2 Swab, 08/03/2021 ECLR Specimen Nasopharynx 7:25 PM CDT Source SARS CoV-2 Undetected Undetected 08/03/2021 ECLR RNA, TMA 7:25 PM CDT Comment: SARS-CoV-2 RNA absent. This result does not rule out COVID-19 in the patient, as the sensitivity of the test depends o n the timing of the specimen collection and the quality of the specim en. Result should be correlated with patient's history and clinical presentat ion. ----ADDITIONAL INFORMATION---- This molecular amplification test was pe rformed using the Aptima SARS-CoV-2 assay ([employer] on the Refresh.ios tem under emergency use authorization (EUA) by the U.S. Food and Drug Administ ration. Fact sheets for this EUA assay can be fo und at the following links: For Healthcare Providers: https://www.fd a.gov/media/321189/download For Patients: https://www.fda.gov/media/ 012308/download Specimen Anatomical Collection Method Collection Time Receive d Time (Source) Location / / Volume Laterality Varies 08/03/2021 10:33 08/03/2021 2:31 (Nasopharynx) AM CDT PM CDT Dk Mijares M.D. LAB MICROBIOLOGY - GENERAL O RDERABLES Performing Organization Address City/State/ZIP Code Phon e Number [facility]- [address] [place] [address] [place], [place] [address] [facility] [address] System in [place] [address] [facility] [address] Knee Left without IV Contrast (07/02/2021 8:44 AM JUDGE'S CLERK) Anatomical Region Laterality Modality Lower Extremity, Knee, Musculoskeletal RST LOS, Left Computed Tomography Musculoskeletal ARZ LOS, Muskuloskeletal FLA LOS Specimen (Source) Anatomical Collection Method Collection Time Re ceived Time Location / / Volume Laterality 07/02/2021 8:56 AM JUDGE'S CLERK Impressions 07/02/2021 9:00 AM JUDGE'S CLERK Degenerative change. Narrative 07/02/2021 9:00 AM JUDGE'S CLERK EXAM: ??CT KNEE LEFT WITHOUT IV CONTRAST No 3D post-processing performed. COMPARISON: ??05/30/2021 radiographs FINDINGS: ??No fracture. Degenerative ch kenya with joint space narrowing and marginal spurs. Knee joint effusion. Small amount of fat in t he left inguinal canal. Small amount of fat within the anterior aspect of the right rectus femo ris muscle, which is only partially visualized, possibly secondary to old traumatic injury or lip armin. Procedure Note Tray Odonnell M.D. - 07/02/2021Formatt ing of this note might be different from the original. EXAM: CT KNEE LEFT WITHOUT IV CONTRAST No 3D post-processing performed. COMPARISON: 05/30/2021 radiographs FINDINGS: No fracture. Degenerative rosado ge with joint space narrowing and marginal spurs. Knee joint effusion. Small amount of fat in t he left inguinal canal. Small amount of fat within the anterior aspect of the right rectus femo ris muscle, which is only partially visualized, possibly secondary to old traumatic injury or lip armin. IMPRESSION: Degenerative change. Dk Mijares M.D. IMG CT PROCEDURES documented in this encounter Visit Diagnoses Diagnosis Primary Osteoarthritis Knee Left - Prima ry Primary Osteoarthritis Knee Left documented in this encounter Care Teams Jack Spinner Relationship Specialty Start Date End Date Elsewhere, Pcp PCP - General 06/07/19 documented as of this encounter
--- OUTSIDE RECORDS SUMMARY | 2022-01-23 19:37 | XMS_ITS | Encounter Summary ---
:1960 Author Organization [facility] Address [address] [place] [address] Care Team Providers Name Role Phone Elsewhere, Pcp Primary Care Provider Unavailable Encounter Details Date Type Department Care Team Description 07/06/2021 Orders Only Department of Orthopedic Laurie Dumont APRN, Surgery in [place], C.N.P., D.N .P. [address] [place] [phone] [place] [address] [phone] Social History Tobacco Use Types Packs/Day Years [...] you attend muslim or Patient refused 2021 yazidi services? Do you belong to any clubs or No 12/20/2021 organizations such as muslim groups, unions, fraternal or athletic groups, or [...] place to sleep or slept in a halfway (including now)? Education Answer Date Recorded What is the highest level of school you have completed or 12 th grade 04/11/2021 the highest degree you have received? 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 [address] [facility], [place] [phone] 01/29/2022 Office Visit Orthopedic Surgery Laurie Dumont, ANA , C.N.P., D.N.P. [address] [facility], [place] [phone] (Wo rk) documented as of this encounter Visit Diagnoses Not on filedocumented in this encounter Care Teams Shoe Shiner Relationship Specialty Start Date End Date Elsewhere, Pcp PCP - General 06/07/19 documented as of this encounter
--- OUTSIDE RECORDS SUMMARY | 2022-01-23 19:37 | XMS_ITS | Encounter Summary ---
:[address] [facility] Address [address] [place] [address] Care Team Providers Name Role Phone Elsewhere, Pcp Primary Care Provider Unavailable Reason for Visit Reason Comments 2 Insurance Forms (Indemnity & [employer] Encounter Details Date Type Department Care Team Description 07/05/2021 Clinical Communication Department of Dk Mijares 2 Insurance Forms Orthopedic Surgery Adrian Bui (Indemnity & The in [facility] [address] [place], [place] [address] [employer] [address] [place], [place] [phone] (Work) [phone] Social History Tobacco Use Types Packs/Day Years [...] attend roman catholic or Patient refused 2021 mosque services? 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 Faxed to [phone]. Copy to chart. ATRIC OPHTHALMOLOGIST Telephone Encounter - Lucy Forde - 07/05/2021 9:46 AM CST 2 forms submitted for Maryana team. TPA for [employer] of [facility]. Fax- [phone] Work Related for Left knee. Sent Dr. Mijares last note of 06/28/21 and workability. [employer] sent a form and requested office notes from Maryana 06/28/[address] report of left knee . Work Comp. [phone] ATRIC OPHTHALMOLOGIST documented in this encounter Plan of Treatment Upcoming Encounters Date Type Specialty Care Team Description 01/24/2022 Diagnostic Otorhinolaryngology Lara Snell Au.D. [address] [place], [place] [phone] 01/29/2022 Office Visit Orthopedic Surgery Laurie Dumont, ANA , C.N.P., D.N.P. [address] [place], [place] [phone] (Wo rk) documented as of this encounter Visit Diagnoses Not on filedocumented in this encounter Care Teams Mercury Recoverer Relationship Specialty Start Date End Date Elsewhere, Pcp PCP - General 06/07/19 documented as of this encounter
--- OUTSIDE RECORDS SUMMARY | 2022-01-23 19:37 | XMS_ITS | Encounter Summary ---
:1960 Author Organization [facility] Address [address] [place] [address] Care Team Providers Name Role Phone Elsewhere, Pcp Primary Care Provider Unavailable Reason for Visit Reason Comments Surgical Listing Orthopedics Encounter Details Date Type Department Care Team Description 06/28/2021 Clinical Communication Department of Dk Mijaresical Listing Orthopedic Surgery Adrian Bui (Orthopedics) in [address] [address] [place], [place] [phone] (Work) [phone] Social History Tobacco Use Types Packs/Day Years [...] or relatives? How often do you attend mosque or Patient refused 2021 congregational services? 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 - 07/31/2021 9:12 AM CDT Addended by: NATALIE MOSES on: 07/31/2021 09:12 AM Modules accepted: Orders Telephone Encounter - Natalie Moses R.N. - 07/31/2021 9:11 AM CDT Per Laurie Dumont, order for walker has been completed and faxed to [facility]. Telephone Encounter - Laurie Dumont APRN, C.N.P., D.N.P. - 07/30/2021 4:19 PM CDT Yes please. Thanks. Telephone Encounter - Dian Hayes L.P.N. - 07/30/2021 3:42 PM CDT Are you ok with me sending this now? Telephone Encounter - Shannan Moseley R.N. - 07/30/2021 3:36 PM CDT Patient is inquiring about getting a walker prescription sent to [facility]. Please advise. Thank you! Telephone Encounter - Lashell Singh L.P.N. - 06/28/2021 4:15 PM AUTOMATION QA TESTER Scheduled Left total knee arthroplasty- [place] on 08/06/21 to be performed by Dr. mijares. This is work comp MATION QA TESTER documented in this encounter Plan of Treatment Upcoming Encounters Date Type Specialty Care Team Description 01/24/2022 Diagnostic Otorhinolaryngology Lara Snell Au.D. [address] [place], [place] [phone] 01/29/2022 Office Visit Orthopedic Surgery Laurie Dumont, ANA , C.N.P., D.N.P. [address] [place], [place] [phone] (Wo rk) documented as of this encounter Visit Diagnoses Diagnosis Primary Osteoarthritis Knee Left - Prima ry documented in this encounter Care Teams Lockstitch Waistline Joiner Relationship Specialty Start Date End Date Elsewhere, Pcp PCP - General 06/07/19 documented as of this encounter
--- OUTSIDE RECORDS SUMMARY | 2022-01-23 19:37 | XMS_ITS | Encounter Summary ---
:1960 Author Organization [facility] Address [address] [place] [address] Care Team Providers Name Role Phone Elsewhere, Pcp Primary Care Provider Unavailable Reason for Referral Outpatient (Routine) - Pending Review Specialty Diagnoses / Procedures Referred By Contact Refer red To Contact Orthopedic Surgery Diagnoses Nieves Hunter APRN, GURVINDERS Formerly [facility] C.N.P., D.N.P. [address] [facility] [place] [address] Referral ID Status Reason Start Date Expiration Date Visits V isits Requested Authorized [id number] Pending 08/07/2021 08/07/2022 1 1 Review Scheduling Instructions Ordered images/tests are associated with this appointment. 2 week follow up Reason for Visit Auth/Cert Specialty Diagnoses / Procedures Referred By Contact Refer red To Contact Diagnoses Primary Osteoarthritis Knee Left Primary Osteoarthritis Knee Left [M17.12] Procedures OH ARTHRO KNEE CONDYLE&PLAT (TKA) BARBER ROBOTIC-ASSISTED KNEE TOTAL ARTHROPLASTY - LEFT Referral ID Status Reason Start Date Expiration Date Visits Requ ested Visits Authorized [id number] 1 1 Encounter Details Date Type Department Care Team Description 08/06/2021 - Hospital [facility] Dk Mijares Primary Oste oarthritis [facility], [address] [place] [address] Third Floor [place] [address] [facility] [address] [place] [phone] (Work) [phone] Social History Tobacco Use Types Packs/Day Years [...] you attend orthodoxy or Patient refused 2021 rastafari services? 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N.P., D.N.P. - 08/07/2021 7:47 AM CDT DISCHARGE SUMMARY BRIEF OVERVIEW Hospital: [facility] Discharge Provider: Dk Mijares M.D. Primary Care Providers: Elsewhere, Pcp (General) No address on file Primary Care Provider Phone Number: None Primary Care Provider Fax Number: None Other Providers: hospitalist Admission Date: 08/06/2021 Discharge Date: 08/07/2021 PRINCIPAL DIAGNOSIS Primary Osteoarthritis Knee Left SECONDARY DIAGNOSES Principal Problem: Primary Osteoarthritis Knee Left Resolved Problems: * No resolved hospital problems. * Surgery Information This Encounter Past Procedures (08/07/2020 to Today) Date Procedures Providers Location 08/06/2021 BARBER ROBOTIC-ASSISTED KNEE TOTAL ARTHROPLASTY Dk Mijares M.D.Reber, Darcy L, APRN, C.N.P., D.N.P.Laurie Dumont APRN, C.N.P., D.N.P. [facility] OR DISCHARGE DISPOSITION Home or Self Care [1] ACTIVE ISSUES REQUIRING FOLLOW UP None OUTPATIENT FOLLOW UP Scheduled Appointments 08/10/2021 2:00 PM Dian Clarke PRadha Physical Medicine and Rehabilitation 08/21/2021 9:45 AM Dk Mijares M.D. Orthopedic Surgery For appointment details refer to your Patient Appointment Guide. TEST RESULTS PENDING AT DISCHARGE Pending Labs None DETAILS OF HOSPITAL STAY REASON FOR ADMISSION Primary Osteoarthritis Knee Left HOSPITAL COURSE S/p left Barber robotic assisted CT guided total knee arthroplasty with uneventful postop period. Progress activity with physical therapy and tolerated oral pain medication. He will do outpatient physical therapy per total knee arthroplasty protocol. Oxycodone and stool softeners for pain management, aspirin 81 mg twice daily x6 weeks for DVT prophylactic. Aquacel dressing to be removed postop day 7 and follow-up with Orthopedics in 2 weeks. CONSULTS ORDERED DURING THIS ADMISSION ANESTHESIA FOLLOW-UP IP CONSULT TO HOSPITAL INTERNAL MEDICINE IP CONSULT TO CARE MANAGEMENT Procedures Performed: Left Barber robotic assisted CT-guided total knee arthroplasty Pertinent Diagnostic Results: Barber robotic assisted CT-guided left total knee arthroplasty CONDITION AT DISCHARGE stable Discharge instructions were provided to the patient and caregiver(s). documented in this encounter Medications at Time [...] 5 Take 1-2 tablets 50 tablet 0 08/0708/10/2021 mg immediate release (5-10 mg total) by [...] topically daily. documented as of this encounter Progress Notes Tala Schmid P.T. - 08/07/2021 9:47 AM CDT Physical Therapy Inpatient Treatment By co-signing this note, the provider certifies the therapy being provided to this patient is reasonable and necessary for the diagnosis or treatment of this patient. SUBJECTIVE Patient's Name: Hussein Whittaker Referring/Attending Provider: Dk Mijares M.D. Medical Diagnosis: Primary Osteoarthritis Knee Left [M17.12] Reason for Referral: PT eval and treat. TKA protocol Onset Date: 08/06/21 Payor: [employer] / Plan: [employer] / Product Type: Indemnity / Patient Comments: Reports minimal pain, did not sleep well and frequently repositioned his knee and performed heel slides and ankle pumps throughout the night Activity Orders (From admission, onward) Start Ordered 08/06/21 1212 Activity: Up with Assistance Until discontinued Comments: After PT allows Question: Activity Level: Answer: Up with Assistance 08/06/21 1212 Precautions Weight Bearing Status: weight-bearing as tolerated left lower extremity Other Precautions: fall Fall Risk (65 and older) Fall Risk Comments: Short-term, due to lower extremity surgery Contact monitoring: PPE used during therapy: Therapist was wearing the following PPE throughout entire session: surgicalmask and eye protection OBJECTIVE Measures - Tools Bed Mobility - Supine to Sit Level of Assistance: Supervision/Set-up Sit to Stand Transfers Transfer Surface: Bed Transfer Equipment: Gait belt, Front wheeled walker Level of Assistance: Supervision/set-up Stand to Sit Transfers Transfer Surface: Chair Transfer Equipment: Gait belt, Front wheeled walker Level of Assistance: Supervision/set-up Gait Assessment/Training Distance (m): 30 m Surface: Even Device: Gait belt, Front-wheeled walker # of Assistants: 1 Level of Assistance: Contact guard assistance Quality/Pattern: Antalgic, Decreased toe off Assessment of Gait: advancing to step through Stairs/Curb # Stairs: 4 Device: Gait belt Level of Assistance: Supervision/Set-up Stair Navigation Pattern-Ascending: Step-to pattern Stair Navigation Lead Foot-Ascending: Right Stair Navigation Pattern-Descending: Step-to pattern Stair Navigation Lead Foot-Descending: Left Exercise - Protocol Total Joints Exercise: Total knee Total Joints Exercise Comments: reps x 10, emphasis on extension and quad sets, heel prop performed for 5 minutes then removed pillow under heel to place knee in extension on recliner rest Upon arrival in patient room they were found needs including call garber/light in reach, and followingtreatment they were left long sitting in recliner chair, needs including call garber/light in reach, family present. Assessment Discharge Considerations: Clinical Impression: Mr. Whittaker was admitted 08/06/2021 with a diagnosis of: Primary Osteoarthritis Knee Left [M17.12]. Currently, patient presents with limitations including Prior to hospitalization patient was completing daily activities independently limited by pain. Currently, patient presents with impairments including pain, weakness, impaired range of motion and strength resulting in the following functional deficits: requires assistance for all mobility, increased burden of care, must utilize gait aid and assistance for all ambulation. Education was provided regarding evaluative findings, diagnosis, prognosis, potential risks and benefits of rehabilitation interventions. Functional Goals and Timeframes: PT Goal #1: Transfers with modified independence and supervision. PT Goal #1 Date: 08/07/21 PT Goal #1 Status: Achieved PT Goal #2: Patient will ambulate household distances of at least 20 m with front wheeled walker, safely with standby assist. PT Goal #2 Date: 08/07/21 PT Goal #2 Status: Achieved PT Goal #3: Patient will ascend and descend 4 stairs with railing and minimal assist or less. PT Goal #3 Date: 08/07/21 PT Goal #3 Status: Achieved PT Goal #4: Patient will demonstrate knowledge of home exercise program and principles of RICE to promote healing, decrease edema, help with pain control, promote knee range of motion. PT Goal #4 Date: 08/07/21 PT Goal #4 Status: Achieved Plan Therapy Attestation: Physical Therapy Attestation Statement: Patient agrees with the plan of care and goals. Plan: Discontinue PT Inpatient PT Received On Date: 08/07/21 Requires Inpatient Follow-Up: No Plan for next session: DC home outpatient PT in [place] Inpatient AVS Complete - PT: Yes Time Spent with Patient Gait Training (min): 12 min Therapeutic Exercise (min): 10 min Total Timed Units (min): 22 min Total Treatment Time (min): 22 min Physical Therapy Dismissal Snapshot Patient was seen 2 visit(s) for left TKA Inpatient goals: met Please see last progress note for status. Patient to dismiss to home with outpatient therapy set up in [place] to address remaining impairments of range of motion, strength, and pain and mobility deficits of transfers and gait Maris Wilcox Pharm.D., R.Ph. - 08/06/2021 12:37 PM CDT Images from the original note were not included. Admission Medication History Note Prior to Admission Medications Med List Status: Pharmacy Complete Set By: Maris Wilcox Pharm.D., R.Ph. at 08/06/2021 12:35 PM Taking? Last Dose Informant Start Date End Date LT hydroCHLOROthiazide (HYDRODIURIL) 25 mg tablet 08/05/2021 03/05/21 -- Take 25 mg by mouth daily. ketoconazole (NIZORAL) 2 % shampoo Unknown 11/12/17 -- Apply 1 application topically daily. lisinopriL (PRINIVIL,ZESTRIL) 20 mg tablet 08/05/2021 03/05/21 -- Take 20 mg by mouth daily. omeprazole (for_PriLOSEC) 20 mg capsule 08/06/2021 02/05/17 -- Take 1 capsule by mouth daily. Adherence issues: No concerns Maris Wilcox Pharm.D., R.Ph. documented in this encounter Consult Notes Maria Esther Hsieh, O.Roger. - 08/07/2021 11:15 AM CDT Consults Occupational Therapy Inpatient Evaluation/Treatment By co-signing this note, the provider certifies the therapy being provided to this patient is reasonable and necessary for the diagnosis or treatment of this patient. SUBJECTIVE Patient's Name: Hussein Whittaker Referring/Attending Provider: Dk Mijares M.D. Medical Diagnosis: Primary Osteoarthritis Knee Left [M17.12] Reason for Referral: OT eval and treat, TKA Onset Date: 08/06/21 Payor: [employer] / Plan: [employer] / Product Type: Indemnity / PERTINENT MEDICAL / SURGICAL HISTORY: Patient Active Problem List Diagnosis ??? Hypertension Essential Primary ??? Gastroesophageal Reflux Disease Without Esophagitis ??? Diverticulosis Of Large Intestine Without Perforation Or Abscess Without Bleeding ??? Cyst Of Kidney Acquired ??? Morbid Severe Obesity Due To Excess Calories (HCC) ??? Primary Osteoarthritis Knee Left Past Surgical History: Procedure Laterality Date ??? COLONOSCOPY N/A 04/18/2021 Procedure: COLONOSCOPY; Surgeon: Kavon Espino M.D.; Location: [facility] OR ??? KNEE JOINT OPERATION Left 07/20/2013 Arthroscopy of knee with medial meniscectomy. partial medial meniscectomy left knee ??? MOHS SURGERY ??? ORIF WRIST FRACTURE Left 1994 open reduction and internal fixation of left wrist fracture ??? OTHER CONVERTED SHX (SEE COMMENT) N/A 11/25/2006 >Mohs Micrographic Surgery With Transposition Flap Closure. ??? 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 Home Living Type of Home: House Home Layout: Split-level Home Access: Stairs to enter without rails Entrance Stairs: Number of Steps: One step entry where patient plans to use the door frame for support, then 6-8 steps to main level living with 1-2 hand hold supports/ railings Bathroom Shower/Tub: Tub/shower unit Tub/shower unit location: Second floor/upper level Bathroom Toilet: Comfort height Home Equipment Home Adaptive Equipment: Land Management Supervisor, Sock aid, Dressing stick, Long-handled shoe horn, Long-handled sponge Gait Devices Owned: Front-wheeled walker Other DME Equipment : Other (Comment) (Recliner to sleep in if needed) Bathroom Equipment: Shower chair with back Family/Caregiver Present: Yes (Spouse) Patient/Caregiver Goals: Safe discharge home with spouse assist Patient Comments: Patient resting recliner upon arrival OT this morning, patient's spouse is assisting him in getting dressed. Reports minimal pain despite having just walked with physical therapy. Pleasant and willing to learn, eager to discharge home Activity Orders (From admission, onward) Start Ordered 08/06/21 1212 Activity: Up with Assistance Until discontinued Comments: After PT allows Question: Activity Level: Answer: Up with Assistance 08/06/21 1212 Precautions Weight Bearing Status: Weight-bearing as tolerated left lower extremity Other Precautions: Fall risk, TKA protocol Fall Risk (65 and older) Fall Risk Comments: Short-term, due to lower extremity surgery Contact monitoring: PPE used during therapy: Therapist was wearing the following PPE throughout entire session: surgicalmask, eye protection and gloves Patient was wearing a mask during therapy session: no Family member/caregiver present was wearing a mask: yes Additional Staff Present During Session: n/a OBJECTIVE Measures - Tools AM-PAC is a functional measure used in post acute care to guide discharge recommendations. Today, Hussein Whittaker had a standardized score of 47.1. [facility]'s 3-year data, as reported at [facility] 2017, indicates a cut off of 39.4 or greater in daily activity is a fair to good accurate prediction of discharge home. Source: AM-PAC ???6 -Clicks?? functional assessment scores predict acute care hospital discharge destination. Manager Financial Reporting. 2014 Jan; 94 (9): 1252-61. AM-PAC Activity: How much help from another person does the patient currently need??? Putting on and taking off regular lower body clothing?: A Little Putting on and taking off regular upper body clothing?: None Taking care of personal grooming such as brushing teeth?: None Bathing (including washing, rinsing, drying)?: A Little Toileting, which includes using toilet, bedpan, or urinal?: None Eating meals?: None AM-PAC Activity: Score Daily Activities Raw Score (max 24): 22 Daily Activities Standardized Score: 47.1 Cognition Cognitive assessment method: Therapist observations Following Commands: Follows all commands/directions without difficulty Safety/Judgment: Addressed, no concerns noted Vision/Sensation Basic Assessment Baseline Vision/Correction: Wears glasses only for reading Light Touch: No deficits Current Hearing Function: Hearing intact Strength - Upper Extremity Screen: Addressed, no concerns noted ROM - Upper Extremity Screen: Addressed, no concerns noted LE Dressing LE Dressing Location: Chair LE Dressing Delivery: Facilitated, Assessed LE Dressing Items Included: Socks, Shoes LE Dressing Level of Assistance: Modified independent, Supervision/Set-up LE Dressing Comments: Patient able to doff and Don socks on surgical lower extremity at a mod I level with extended time and effort, patient completes the successfully. Patient able to Don shoe to footof surgical lower extremity with slight difficulty, would benefit from use of shoe horn, patient hasthis at home. Patient already dress upon arrival therapy this morning and therefore educated and demonstrated lower body dressing strategies following surgery including dressing while seated, threadingsurgical lower extremity 1st, using mortising machine operator if needed; patient receptive Toileting Toileting Location: Toilet Toileting Delivery: Facilitated, Assessed Toileting Adaptive Equipment: Grab bars Toileting Level of Assistance: Modified independent Toileting Comments: Facilitate short distance ambulation from recliner to bathroom with FWW and CGA/SBA for safety and balance. Patient completes trial toilet transfer at mod I level with safe use grabbars. Patient uses urinal to void while standing; patient completes this at a mod I level, cues for safest walker positioning Team Communication: Patient's nurse was contacted and patient's status was discussed Upon arrival in patient room they were found long sitting in recliner chair, needs including call garber/light in reach, family present, ice to left knee, and following treatment they were left long sitting in recliner chair, needs including call garber/light in reach, cryo cuff left knee, pillow lateral left knee. Assessment Hussein Whittaker is a 60 y.o. year old admit to [facility] following a left TKA on 08/06/2021. Today, Mr. Whittaker was able to verbalize understanding of lower body dressing following TKA; was ableto complete doffing and donning socks, functional mobility with toilet transfer, and toilet hygiene at a {mod I level with SBA by therapist for safety. Mr. Whittaker verbalized understanding of car transfer technique and future home modifications/adjustments in order for continued success and recovery after discharge. He was very thankful for the AE recommendations provided today and will further look into obtaining the recommended items below. Mr. Whittaker is anticipated to discharge hoe with the support of spouse; he indicates no concerns regarding discharge. No further need for skilled occupational therapy services at this time; discontinue hospital OT order. Recommendations: ??? Refrain from driving until off of pain medication and/or until cleared by surgeon ??? No planting and twisting of the left post-surgical lower extremity ??? Weight bear as tolerated on the left post-surgical lower extremity ??? Do not place a pillow directly under knee of the extended left post-surgical lower extremity while seated; rather, promote extension of left leg while seated in recliner or while in bed ??? Obtain/utilize mortising machine operator, sock aid, shower chair, and other AE/DME as needed to complete daily tasks Bathroom Safety Equipment ([id number]); Home Safety Tips ([id number]); Safe Car Transfer Handout; Adaptive Equipment Information Handout provided as patient education Gait belt and recommended device used with all mobility and self care transfers. All needs met and questions answered before OT left. Discontinue hospital OT order at this time. Discharge Considerations: Barriers to Discharge Home: None Discharge Therapy Needs - OT: No further skilled therapy Level of Care Needed - OT: Assistance with transportation, Assistance with housekeeping Recommended Adaptive Equipment - OT: Shower chair with back Clinical Impression: Mr. Whittaker is a 60 y.o. who was admitted to the hospital with a diagnosis of: Primary OsteoarthritisKnee Left [M17.12]. Prior to hospitalization patient was completing daily activities independently with progressing leftknee pain. Currently, patient presents with limitations including Pain in left lower extremity, decreased ROM and strength in left lower extremity, decreased knowledge of condition, impaired balance. Functional deficits: Decreased functional mobility and transfers, decreased independence and safety in ADLs and IADLs Rehab potential: Mr. Whittaker has excellent potential to achieve established occupational therapy goals within the time frame outlined below. Education was provided regarding evaluative findings, diagnosis, prognosis, potential risks and benefits of rehabilitation interventions. The treatment plan and discharge recommendations may be modified based upon pt response to treatment. Comorbid Conditions: Arthritis Personal Factors: Needs assistive device Occupational Profile and History review: Brief Performance Deficits: 1 - 3 performance deficits Evaluation Complexity: Low Functional Goals and Timeframes: OT Goal #1: Hussein Whittaker will complete LB dressing using AE following TKA precautions with SBA or better in prep for discharge from this facility. OT Goal #1 Date: 08/07/21 OT Goal #2: Hussein Whittaker will demo mod I using FWW for safe toilet t/f anayeli care and clothing mgmt in prep for discharge from this facility. OT Goal #2 Date: 08/07/21 OT Goal #3: Hussein Whittaker will demo understanding of safe functional/ADL transfers including car t/f technique, safe shower transfer following TKA precautions in prep for discharge from this facility. OT Goal #3 Date: 08/07/21 OT Goal #4: Hussein Whittaker will verbalize understanding of home safe precautions to minimize fall risk in prep for discharge from this facility. OT Goal #4 Date: 08/07/21 Plan Therapy Attestation: Patient agrees with the plan of care and goals. OT Frequency: OT Frequency: One-time visit OT Duration: Until goals are met or hospital discharge Inpatient OT Received On Date: 08/07/21 Requires Inpatient Follow-Up: No Plan: Discontinue OT Treatment interventions may include: Treatment Interventions: Self-care/home management Time Spent with Patient OT Eval - Low Complexity: 10 min Home Management Training (min): 13 min Time Calculation Total Timed Units (min): 13 min Total Treatment Time (min): 23 min Randall Elias APRN, C.N.P. - 08/06/2021 5:30 PM CDTAssociated Order(s): IP CONSULT TO HOSPITAL INTERNAL MEDICINE chart review only consult 60-year-old male with past medical history of hypertension, GERD, and obesity in-hospital for an elective left knee replacement. Nursing staff report adequate pain control. Is tolerating oral intake without nausea or vomiting. Surgical report did not mention complication. Estimated blood loss 150 mL. Postoperative vital signs are stable Recommendations 1. Physical therapy, pain management, and DVT prophylaxis per primary team 2. Have resume home antihypertensives with outlined hold parameters 3. Aggressive incentive spirometry 4. Strictly monitor intake and output 5. Recheck hemoglobin on a.m. labs Given no active medical problems Hospital Medicine will sign off Caroline Olmedo, P.T. - 08/06/2021 4:08 PM CDT Physical Therapy Inpatient Evaluation/Treatment By co-signing this note, the provider certifies the therapy being provided to this patient is reasonable and necessary for the diagnosis or treatment of this patient. SUBJECTIVE Patient's Name: Hussein Whittaker Referring/Attending Provider: Dk Mijares M.D. Medical Diagnosis: Primary Osteoarthritis Knee Left [M17.12] Reason for Referral: PT eval and treat. TKA protocol Onset Date: 08/06/21 Payor: [employer] / Plan: [facility] / Product Type: PPO / PERTINENT MEDICAL / SURGICAL HISTORY: Patient Active Problem List Diagnosis ??? Hypertension Essential Primary ??? Gastroesophageal Reflux Disease Without Esophagitis ??? Diverticulosis Of Large Intestine Without Perforation Or Abscess Without Bleeding ??? Cyst Of Kidney Acquired ??? Morbid Severe Obesity Due To Excess Calories (HCC) ??? Primary Osteoarthritis Knee Left Past Surgical History: Procedure Laterality Date ??? COLONOSCOPY N/A 04/18/2021 Procedure: COLONOSCOPY; Surgeon: Kavon Espino M.D.; Location: [facility] OR ??? KNEE JOINT OPERATION Left 07/20/2013 Arthroscopy of knee with medial meniscectomy. partial medial meniscectomy left knee ??? MOHS SURGERY ??? ORIF WRIST FRACTURE Left 1994 open reduction and internal fixation of left wrist fracture ??? OTHER CONVERTED SHX (SEE COMMENT) N/A 11/25/2006 >Mohs Micrographic Surgery With Transposition Flap Closure. ??? 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 Home Living Type of Home: House Home Layout: Split-level Home Access: Stairs to enter without rails Entrance Stairs: Number of Steps: One step entry where patient plans to use the door frame for support, then 6-8 steps to main level living with 1-2 hand hold supports/ railings Home Equipment Gait Devices Owned: Front-wheeled walker Family/Caregiver Present: Yes Patient/Caregiver Goals: safe discharge to split level home tomorrow, outpatient physical therapy Dipti Montoya on Friday Patient Comments: he is pleasant and ready for therapy. His pain subsides when he sits to rest again. He is engaged in learning in asks appropriate questions. Activity Orders (From admission, onward) Start Ordered 08/06/211211 Activity: Up with Assistance Until discontinued Comments: After PT allows Question: Activity Level: Answer: Up with Assistance 08/06/211211 Precautions Weight Bearing Status: weight-bearing as tolerated left lower extremity Other Precautions: fall Fall Risk (65 and older) Fall Risk Comments: Short-term, due to lower extremity surgery Contact monitoring: PPE used during therapy: Therapist was wearing the following PPE throughout entire session: surgicalmask, eye protection and gloves Patient was wearing a mask during therapy session: no Family member/caregiver present was wearing a mask: no Additional Staff Present During Session: Wandy Rogers ATC, wearing PPE as the physical therapist. OBJECTIVE Measures - Tools -PAC Basic Mobility (V.2) How much help from another person do you currently need???If the patienthasn't done an activity recently, how much help from another person do you think he/she would need if he/she tried? 1. Turning from your back to your side while in a flat bed without using bedrails?: A Little 2. Moving from lying on your back to sitting on the side of a flat bed without using bedrails?: None 3. Moving to and from a bed to a chair (including a wheelchair)?: A Little 4. Standing up from a chair using your arms (e.g., wheelchair, or bedside chair)?: None 5. To walk in hospital room?: A Little 6. Climbing 3-5 steps with a railing?: A Little AM-PAC Basic Mobility (V.2) Raw Score: 20 AM-PAC Basic Mobility (V.2) Standardized Score: 43.99 -[facility] 6 Clicks Interpretation: Clinicians answer the AM-PAC Inpatient Short Form based on observed patient activity and/or clinicaljudgement (ie. Patient can be scored without physically performing each activity). According to raw scoring guidelines: Those going to home had an average score of 20.1 Those going home with home care had an average score of 17.9 Those going to half-way facility had an average score of 14 Those going to inpatient rehab facility had an average score of 13.6 Those going to a intermediate card tender care facility had an average score of 11.5 Cognition Following Commands: Follows all commands/directions without difficulty Balance Static Sitting-Balance: Good (Maintains balance without support) Dynamic Sitting-Balance: Good (Maintains balance without support) Static Standing-Balance: Fair (Maintains balance with handheld/contact guard assistance) Dynamic Standing-Balance: Fair (Maintains balance with handheld/contact guard assistance) Bed Mobility - Supine to Sit Level of Assistance: Supervision/Set-up Device: Head of bed elevated Cuing: Verbal Sit to Stand Transfers # of Assistants: 2 Transfer Surface: Bed Transfer Equipment: Gait belt, Front wheeled walker Level of Assistance: Contact guard assistance Assessment/Delivery: Assessed, Instructed, Therapist assisted, Facilitated Comments: verbal and tactile cues for safer hand placement and protective extension of left lower extremity Stand to Sit Transfers # of Assistants: 1 Transfer Surface: Chair Transfer Equipment: Gait belt, Front wheeled walker Level of Assistance: Contact guard assistance Assessment/Delivery: Assessed, Instructed, Facilitated Comments: verbal and tactile cues for safer hand placement and protective extension of left lower extremity Vision/Sensation Basic Assessment Light Touch: No deficits Strength - Lower Extremity Screen: Impaired left Strength - Lower Extremity Screen Comments: Equal, strong EHL/FHL/TA/GS; strong contralateral 1/2 bridge ROM - Lower Extremity Screen: Impaired left ROM - Lower Extremity Screen Comments: observed left knee 0-0- 70?? during repositioning Gait Assessment/Training Distance (m): 10 m Surface: Even Device: Gait belt, Front-wheeled walker # of Assistants: 2 (2nd person for IV pole) Level of Assistance: Contact guard assistance Quality/Pattern: Antalgic, Step-to, Decreased toe off, Decreased stance time L Stability: safe and stable front wheeled walker, contact guard assist Assessment of Gait: 5 point, step -to left gait pattern, weight-bearing as tolerated with front wheeled walker Cueing Provided: Verbal Training/Intervention: verbal cues for gait pattern, patient walks at a brisk pace, needed to be reminded of safety concerns like IV Response: patient followed commands well and pain subsided as soon as he was seated at rest Exercise - Protocol Total Joints Exercise: Total knee Total Joints Exercise Comments: verbal cues and tactile cues to perform ankle pumps and quadriceps setting 10 times every waking hour Team Communication: Patient's nurse was contacted and patient's status was discussed Upon arrival in patient room they were found semi-henderson's position in bed, needs including call garber/light in reach, family present, cold care in place, and following treatment they were left long sitting in recliner chair, needs including call garber/light in reach, family present, cold care in place. Assessment Discharge Considerations: Barriers to Discharge Home: None Discharge Therapy Needs - PT: Ongoing skilled physical therapy Level of Care Needed - PT: Assistance with stairs, Assistance with walking and moving around the home Equipment Recommended - PT: Front-wheeled walker Clinical Impression: Mr. Whittaker is a 60 y.o. who has been hospitalized 0 day(s) with an admitting diagnosis of: Primary Osteoarthritis Knee Left [M17.12]. Prior to hospitalization patient was completing daily activities as an independent ambulator but with ongoing knee pain. Currently, patient presents with impairments including Left knee surgical pain, decreased knowledge of condition, decreased ROM and strength, decreased coordination resulting in the following functional deficits: difficulty with bed mobility, transfers, gait, and stair negotiation. Rehab potential: Mr. Whittaker has Excellent potential to achieve established physical therapy goals within the time frame outlined below. Education was provided regarding evaluative findings, diagnosis, prognosis, potential risks and benefits of rehabilitation interventions. The treatment plan and discharge recommendations may be modified based upon pt response to treatment. Comorbid Conditions: Arthritis Personal Factors: Needs assistive device Clinical Presentation: Stable Examination elements: 1-2 Clinical Decision Making: Low complexity clinical decision making Functional Goals and Timeframes: PT Goal #1: Transfers with modified independence and supervision. PT Goal #1 Date: 08/07/21 PT Goal #2: Patient will ambulate household distances of at least 20 m with front wheeled walker, safely with standby assist. PT Goal #2 Date: 08/07/21 PT Goal #3: Patient will ascend and descend 4 stairs with railing and minimal assist or less. PT Goal #3 Date: 08/07/21 PT Goal #3 Status: Ongoing PT Goal #4: Patient will demonstrate knowledge of home exercise program and principles of RICE to promote healing, decrease edema, help with pain control, promote knee range of motion. PT Goal #4 Date: 08/07/21 PT Goal #4 Status: Progressing Plan Therapy Attestation: Physical Therapy Attestation Statement: Patient agrees with the plan of care and goals. Plan: Plan of care initiated PT Frequency: PT Amount: 1 visit per day PT Duration: Until goals are met or hospital discharge Inpatient PT Received On Date: 08/06/21 Requires Inpatient Follow-Up: Yes Next Inpatient Appointment: 08/07/21 Plan for next session: Advance ROM, strength, transfer safety, gait safety. Teaching of self-care, RICE principles, use of spandagrip 4/5, knowledge of precautions. Treatment interventions may include: Treatment/Interventions: Therapeutic exercise, Therapeutic functional activity, Gait training Time Spent with Patient PT Eval - Low Complexity: 15 min Gait Training (min): 5 min Therapeutic Activity (min): 8 min Therapeutic Exercise (min): 1 min Total Timed Units (min): 14 min Total Treatment Time (min): 29 min documented in this encounter Nursing Notes Carol Clemente R.N. - 08/07/2021 12:01 PM CDT Shift Goals: Clinical Goals for the Shift: Patient discharge to home Identify possible barriers to meeting goals/advancing plan of care: none Problem: SAFETY ADULT Goal: Maintain a safe environment Outcome: Completed Problem: SAFETY ADULT - RISK FOR FALL AND OR FALL INJURY Goal: Patient remains free from fall/fall injury Outcome: Completed End of Shift Summary: Patient discharged to home with family. Discharge paperwork went over and copysent home with patient. Clara Swann R.N. - 08/07/2021 4:48 AM CDT Shift Goals: Clinical Goals for the Shift: Pt will state adequate pain control this shift. Identify possible barriers to meeting goals/advancing plan of care: none End of Shift Summary: Pt remained free from falls this shift. Pt utilized PRN pain medication for comfort. Jeanine Jordan R.N. - 08/06/2021 6:04 PM CDT Problem: SAFETY ADULT Goal: Maintain a safe environment Outcome: Progressing Problem: SAFETY ADULT - RISK FOR FALL AND OR FALL INJURY Goal: Patient remains free from fall/fall injury Outcome: Progressing Shift Goals: Clinical Goals for the Shift: Pt will verbalize adequate pain control this shift. Identify possible barriers to meeting goals/advancing plan of care: Surgical End of Shift Summary: Pt underwent left robotic knee surgery today w/ Dr. Mijares. Pt is able to verbalize pain control and PRN's were utilized. documented in this encounter OR Notes Op Note - Dk Mijares M.D. - 08/06/2021 8:56 AM CDT Pre-op Diagnosis Primary Osteoarthritis Knee Left Post-op Diagnosis Primary Osteoarthritis Knee Left PROCEDURE: Robotically-assisted CT-guided left total knee arthroplasty. SURGEON: Dk Mijares M.D. PIT CREW SUPPORT WORKER: Dr. Luis Fu A first leveler actively participated and was necessary for one or more of the following: opening,exposure and visualization during the case, maintaining hemostasis, wound closure resulting in its safe and expeditious completion. INDICATIONS: Hussein is a 60-year-old man who has been suffering with left knee DJD. He had sustained an injury to his knee which causes him to have severe increase in pain difficulties with ambulation that would not resolve. He failed other conservative measures. Discussed risks, benefits, and alternatives to robotic- assisted CT-guided left total knee arthroplasty. He understands these and desires to proceed with surgery. OPERATIVE NOTE NARRATIVE Patient brought to the operating room and placed on the operating table in the seated position. Spinal anesthesia was smoothly induced, then placed in supine position. Tourniquet was placed around his left thigh. Left leg was then prepped and draped in sterile fashion. Attention brought to the anterior aspect of the knee. A longitudinal incision was then made. This was brought down through subcutaneous tissue down to the extensor mechanism. The extensor mechanism was then cleared off medially and laterally. A standard medial parapatellar arthrotomy was then performed. A medial release was then doneoff the tibia. Patella was then slid laterally. ACL was then cut and excised. Guide pins for the femoral and tibial arrays were then positioned. Once that was completed, the arrays were then positionedas well. The hip center was then navigated as well as the ankle center. Following this, the femur was then mapped out to match to the CT guidance as well as the tibia was mapped out. Once that was completed, we then checked our ligaments in both extension and flexion and made adjustments to the plan to a get these balanced. Once that was completed, we then placed our retractors. The robot was then brought in to do our cuts, 1st to the femur and then the tibia. Once that was completed, bony pieces were then removed. The medial and lateral menisci were then excised in their entirety. Posterior osteophytes were removed with osteotome and rongeur. The tibia was then subluxed anteriorly. Tibial guide was then placed proximally, pinned into place, followed by the PS cutting block. The PS cut was then performed on the distal aspect of the femur. Once that was completed, the femoral trial was then pounded into position. The poly was then snapped into position. The knee was put through range of motion with excellent range of motion and excellent stability. The patella was then everted. Soft tissue was then removed from around the patella. Oscillating saw was used to cut off approximately 9-10 mm of bone from the undersurface of the patella. Patellar drill guide was then snapped in position and drilled. The trial patella was then snapped into position and put through range of motion with excellent tracking. The arrays were then removed as well as the guide pins. All the trial components were then removed. The tibia was then subluxed anteriorly. Tibia was then punched. We then placed our tibial component which was then pounded into position followed by the femoral component and the polyethylene. Once that was completed, the patellar components were then snapped into position. The knee was then copiously irrigated with antibiotic solution. The extensor mechanism was then closed using #1 Vicryl in a n interrupted [id number] fashion followed by copious irrigation of subcutaneous tissue with closure of this using 2-0 Vicryl. The skin was then closed using ZipLine device followed by Tripsidea dressing and BERNABE bandage. The tourniquet was let down. The patient was transferred to recovery in good condition. Needle and sponge counts were correct at the end of the case. Dk Mijares M.D. documented in this encounter Plan of Treatment Upcoming Encounters Date Type Specialty Care Team Description 01/24/2022 Diagnostic Otorhinolaryngology Lara Snell Au.D. [address] [place], [place] [phone] 01/29/2022 Office Visit Orthopedic Surgery Laurie Dumont, ANA , C.N.P., D.N.P. [address] [place], [place] [phone] (Wo rk) Scheduled Referrals Name Type Priority Associated Order Schedule Diagnoses Orthopedic Surgery Outpatient Referral Routine 1 Occurrences Post Op (clinic) starting until 5 documented as of this encounter Procedures Procedure Name Priority Date/Time Associated Diagnosis Comme nts HEMOGLOBIN, B Routine 08/07/2021 6:20 Results for this AM CDT procedure are i n the results section. PULSE OXIMETRY, Routine 08/06/2021 12:13 CONTINUOUS PM CDT PULSE OXIMETRY, Routine 08/06/2021 12:13 CONTINUOUS PM CDT PULSE OXIMETRY, Routine 08/06/2021 12:13 CONTINUOUS PM CDT ADULT OXYGEN THERAPY Routine 08/06/2021 10:43 AM CDT ROBOTIC-ASSISTED 08/06/2021 8:11 Primary Osteoarthriti s KNEE TOTAL AM CDT Knee Left ARTHROPLASTY documented in this encounter Results (ABNORMAL) Hemoglobin (08/07/2021 6:20 AM CDT) P athologist Signature Hemoglobin 11.6 (L) 13.2 - 16.6 08/07/2021 [facility] g/dL 6:50 AM CDT Specimen Anatomical Collection Method Collection Time Receive d Time (Source) Location / / Volume Laterality Blood (Blood, 08/07/2021 6:20 AM 08/08/19 6:42 Venous) CDT AM CDT Nieves Marsh Kaylee Hunter APRNNFarshadP., D.N.P. LAB BLOOD ADD-ON Performing Organization Address City/State/ZIP Code Phon e Number [facility]- Ze[address] [place], [place] [address] [facility] [place] [address] System in [place] [address] documented in this encounter Visit Diagnoses Diagnosis Primary Osteoarthritis Knee Left - Prima ry documented in this encounter Admitting Diagnoses Diagnosis Primary Osteoarthritis Knee Left documented in this encounter Administered Medications Inactive Administered Medications - up to 3 most recent administrations Medication Order MAR Action Action Date Dose Rate Site acetaminophen tablet 1,000 mg Given 08/06/2021 6:56 AM CDT 1,000 mg (TYLENOL) 1,000 mg, oral, Once, On Fri08/06/21 at 0645, For 1 dose, Pre-Op acetaminophen tablet 1,000 mg (TYLENOL) Given 08/07/2021 8:41 AM CDT 1,000 mg 1,000 mg, oral, Every 6 hours, First dose on Fri08/06/21 at 1400 Given 08/07/2021 2:11 AM CDT 1,000 mg Given 08/06/2021 8:09 PM CDT 1,000 mg ceFAZolin in dextrose (iso-osm) IVPB New Bag 08/07/2021 12:18 AM CDT 2 g 100 mL/hr 2 g (ANCEF) 2 g, intravenous, at 100 mL/hr, Administer over 30 Minutes, Every 8 hours, First dose on Fri08/06/21 at 1600, For 2 doses, Start within 8 hours of last IV dose., Drug Monitoring Program: Pharmacist to adjust medication dosing based on indication and drug clearance factors., Indications: Prophylaxis, surgical New Bag 08/06/2021 4:18 PM CDT 2 g 100 mL/hr enoxaparin injection 40 mg Given 08/07/2021 8:42 AM CDT 40 mg Left Lower Abdomen (LOVENOX) 40 mg, subcutaneous, Daily, First dose on Fri08/07/21 at 0900 fentaNYL injection 25 mcg (SUBLIMAZE) Given 08/06/2021 11:00 AM CDT 25 mcg 25 mcg, intravenous, Every 2 min PRN, For pain 4 or greater (maximum 100 mcg). If max dose of Fentanyl is reached and if pain is greater than 4, discontinue Fentanyl: give Hydromorphone, Starting on Fri08/06/21 at 1043, PACU (only) Given 08/06/2021 10:58 AM CDT 25 mcg Given 08/06/2021 10:56 AM CDT 25 mcg hydroCHLOROthiazide tablet 25 mg (HYDROD IURIL) Given 08/07/2021 8:42 AM CDT 25 mg 25 mg, oral, Daily, First dose on Fri08/07/21 at 0900, Hold for SBP <110 HYDROmorphone injection 0.5 mg (DILAUDID ) Given 08/06/2021 11:17 AM CDT 0.5 mg 0.5 mg, intravenous, Every 5 min PRN, moderate pain or score 4-6 of 10, severe pain or score 7-10 of 10, Starting on Fri08/06/21 at 1043, For 4 doses, PACU (only), Up to maximum total dose of 2 mg ketorolac injection 15 mg (TORADOL) Given 08/07/2021 6:33 AM CDT 15 mg 15 mg, intravenous, Every 6 hours, First dose on Fri08/06/21 at 1230, For 4 doses, Adult IV push rate: Over 15 seconds. Peds IV push rate: Over 1 minute. 60 mg dose only for IM, not recommended for IV., Drug Monitoring Program: Pharmacist to adjust medication dosing based on indication and drug clearance factors. Given 08/07/2021 12:18 AM CDT 15 mg Given 08/06/2021 6:37 PM CDT 15 mg lactated ringers New Bag 08/06/2021 9:16 AM CDT 1000 mL/hr 20 mL/hr, intravenous, Continuous, Starting on Fri08/06/21 at 0645 Rate/Dose Verify 08/06/2021 8:12 AM CDT 20 mL/hr New Bag 08/06/2021 6:57 AM CDT 20 mL/hr 20 mL/hr lactated ringers New Bag 08/06/2021 1:54 PM CDT 50 mL/hr 50 mL/hr 50 mL/hr, intravenous, Continuous, Starting on Fri08/06/21 at 1215 New Bag 08/06/2021 12:30 PM CDT 50 mL/hr 50 mL/hr lisinopriL tablet 20 mg (PRINIVIL,ZESTRI L) Given 08/07/2021 8:42 AM CDT 20 mg 20 mg, oral, Daily, First dose on Fri08/07/21 at 0900, Hold for SBP <110 oxyCODONE IR tablet 10 mg (ROXICODONE) Given 08/07/2021 12:26 AM CDT 10 mg 10 mg, oral, Every 4 hours PRN, severe pain or score 7-10 of 10, Starting on Fri08/06/21 at 0735, Second line therapy. If patient is greater than 7 after 2 hours, call service for new order. Given 08/06/2021 8:09 PM CDT 10 mg oxyCODONE IR tablet 5 mg (ROXICODONE) 5 mg, oral, Every 4 hours PRN, moderate pain or score 4-6 of 10, Starting on Fri08/06/21 at 0735, Second line therapy pantoprazole DR tablet 40 mg (PROTONIX) Given 08/07/2021 6:33 AM CDT 40 mg 40 mg, oral, Daily before breakfast, First dose on Fri08/07/21 at 0700, pantoprazole 40 mg oral daily was interchanged for omeprazole 20 or 40 mg oral daily Swallow whole. Do NOT crush, chew, or split tablet. sennosides-docusate sodium 8.6-50 mg per Given 08/07/2021 8:42 A M CDT 1 tablet tablet 1 tablet (SENOKOT-S) 1 tablet, oral, 2 times daily, First dose on Fri08/06/21 at 2100, Do not give if patient has diarrhea. Given 08/06/2021 8:09 PM CDT 1 tablet traMADoL tablet 100 mg (ULTRAM) Given 08/06/2021 4:17 PM CDT 100 mg 100 mg, oral, Every 6 hours PRN, severe pain or score 7-10 of 10, Starting on Fri08/06/21 at 0735, First line therapy or for pain greater than comfort goal (not to exceed 400 mg in 24 hours). traMADoL tablet 50 mg (ULTRAM) Given 08/07/2021 8:41 AM CDT 50 mg 50 mg, oral, Every 6 hours PRN, moderate pain or score 4-6 of 10, Starting on Fri08/06/21 at 0735, First line therapy documented in this encounter Active and Recently Administered Medications Times are shown in CDT. Scheduled Medication Order 08/05/2021 08/06/2021 08/07/2021 acetaminophen tablet 1,000 mg (TYLENOL) (COMPLETED) 0656 (Given - Provider: Lisbeth Caballero RFarshadNFarshad) 1,000 mg, oral, Once, On Fri08/06/21 at 0645, For 1 dose, Pre-Op acetaminophen tablet 1,000 mg (TYLENOL) 1356 (Given - Provider: Kathy Beaver R.N.)2008 (Given - Provider: Clara Swann RFarshadNFarshad) 0211 (Given - Provider: Clara Swann RFarshadNFarshad)0841 (Given - Provider: Carol Clemente RFarshadNFarshad) 1,000 mg, oral, Every 6 hours, First dose on Fri08/06/21 at 1400 ceFAZolin in dextrose (iso-osm) IVPB 2 g (ANCEF) (COMPLETED) 1618 (New Bag - Provider: Jeanine Jordan RFarshadNFarshad) 0018 (New Bag - Provider: Clara ricci RFarshadNFarshad) 2 g, intravenous, at 100 mL/hr, Administ er over 30 Minutes, Every 8 hours, First dose on Fri08/06/21 at 1600, For 2 doses, Start within 8 hours of last IV dose., Drug Monitoring Program: Pharmacist to a djust medication dosing based on indicat ion and drug clearance factors., Indications: Prophylaxis, surgical ceFAZolin injection 2,000 mg (ANCEF) (COMPLETED) 0830 (Given - Provider: Maeve Pino RFarshadNFarshad) 2,000 mg (rounded from 2,925 mg = 25 mg/ kg ? 117 kg), intravenous, Once, On Fri08/06/21 at 0645, For 1 dose, Intra-Op, Preoperatively within 1 hour prior to surgical incision If needed, reconstitute vi al per package insert instructions. See IVAG for administration guidelines. , Drug Monitoring Program: Pharmacist to adjust medication dosing based on indication and drug clearance factors., Indications: Prophylaxis, surgical enoxaparin injection 40 mg (LOVENOX) 0842 (Given - Provider: Carol Clemente R.N.) 40 mg, subcutaneous, Daily, First dose on Fri08/07/21 at 0900 hydroCHLOROthiazide tablet 25 mg (HYDRODIURIL) 0842 (Given - Provider: Carol Clemente R.N.) 25 mg, oral, Daily, First dose on Fri08/07/21 at 0900, Hold for SBP <110 ketorolac injection 15 mg (TORADOL) (COMPLETED) 1239 (Given - Provider: Jeanine Jordan R.N.)1837 (Given - Provider: Jeanine Jordan R.N. - Comment: intermittent pain; not continuous) 0018 (Given - Provider: Clara Swann R.N.)0633 (Given - Provider: Clara Swann R.N.) 15 mg, intravenous, Every 6 hours, First dose on Fri08/06/21 at 1230, For 4 doses, Adult IV push rate: Over 15 seconds. Peds IV push rate: Over 1 minute. 60 mg dose only for IM, not recommended for IV., Drug Monitoring Program: Pharmacist to adjust medication dosing based on indication and drug clearance factors. lisinopriL tablet 20 mg (PRINIVIL,ZESTRIL) 0842 (Given - Provider: Carol Clemente R.N.) 20 mg, oral, Daily, First dose on Fri08/07/21 at 0900, Hold for SBP <[address] tablet 40 mg (PROTONIX) 0633 (Given - Provider: Clara Swann R.N.) 40 mg, oral, Daily before breakfast, Fir st dose on Fri08/07/21 at 0700, pantoprazole 40 mg oral daily was interchanged for omeprazole 20 or 40 mg oral daily Swallow whole. Do NOT crush, chew, or split tablet. sennosides-docusate sodium 8.6-50 mg per tablet 1 tablet (SE NOKOT-S) 2008 (Given - Provider: Clara Swann R.N.) 0842 (Given - Provider: Carol Clemente R.N.) 1 tablet, oral, 2 times daily, First dos e on Fri08/06/21 at 2100, Do not give if patient has diarrhea. tranexamic acid in NaCl IVPB 1,000 mg (CYKLOKAPRON) (COMPLET ED) 0848 (Given - Provider: Keaton Valdez APRN, RELATIONSHIP ASSOCIATE) 1,000 mg (1 g), intravenous, at 300 mL/h r, Administer over 20 Minutes, Once, On Fri08/06/21 at 0645, For 1 dose, Intra-Op, Administer in OR upon induction tranexamic acid in NaCl IVPB 1,000 mg (CYKLOKAPRON) (COMPLET ED) 1007 (Given - Provider: Maeve Pino RFarshadNFarshad) 1,000 mg (1 g), intravenous, at 300 mL/h r, Administer over 20 Minutes, Once, On Fri08/06/21 at 0645, For 1 dose, Intra-Op, Administer in OR just before dropping tourniquet Continuous Medication Order 08/05/2021 08/06/2021 08/07/2021 lactated ringers (CANCELED) 0657 (New Ba g - Provider: Lisbeth Caballero R.N.)0812 (Rate/Dose Verify - Provider: Keaton Valdez APRN, TEENA)0916 (New Bag - Provider: Maeve Pino R.NFarshad)1030 (Anesthesia Volume Adjustment - Provider: Max Whiting.NFarshad) 20 mL/hr, intravenous, Continuous, Starting on Fri08/06/21 at 06 45 lactated ringers 1230 (New Bag - Prov ider: Jeanine Jordan R.N.)1354 (New Bag - Provider: Kathy Beaver R.N.) 0833 (Stopped - Provider: Carol Clemente R.NFarshad) 50 mL/hr, intravenous, Continuous, Starting on Fri08/06/21 at 12 15 PRN Medication Order 08/05/2021 08/06/2021 08/07/2021 bisacodyL suppository 10 mg (DULCOLAX) 10 mg, rectal, Daily PRN, constipation, Starting on Fri08/06/21 at 1211, Ordered sequence of administration: polyethylene glycol, then bisacodyl until BM achieved. dexAMETHasone injection 4 mg (DECADRON) 4 mg, intravenous, Once as needed, nause a, vomiting, Starting on Fri08/06/21 at 1211, For 1 dose, Give only if NOT given during the pre or intraoperative period. If ondansetron ordered, give dexamethasone with first dose of ondansetron. fentaNYL injection 25 mcg (SUBLIMAZE) (CANCELED) 1053 (Given - Provider: Leny DomínguezN.)1056 (Given - Provider: Keke Barney R.N.)1058 (Given - Provider: Max Domínguez.N.)1100 (Given - Provider: Leny DomínguezNFarshad) 25 mcg, intravenous, Every 2 min PRN, Fo r pain 4 or greater (maximum 100 mcg). If max dose of Fentanyl is reached and if pain is greater than 4, discontinue Fentanyl: give Hydromorphone, Starting on Fri08/06/21 at 1043, PACU (only) haloperidol lactate injection 1 mg (HALDOL) 1 mg, intravenous, Every 6 hours PRN, na usea, vomiting, Starting on Fri08/06/21 at 1211, For 48 hours, Total of 3 doses in 24 hour period. RASS must be -2 or higher to administer. Reassess for nausea or vomiting after at least 10 minutes. If nausea or vomiting persists administer next ordered antiemetic medications (order for antiemetic medication administration ondansetron then haloperidol then promethazine) HYDROmorphone injection 0.5 mg (DILAUDID) (CANCELED) 1117 (Given - Provider: Keke Barney R.NFarshad) 0.5 mg, intravenous, Every 5 min PRN, mo derate pain or score 4-6 of 10, severe pain or score 7-10 of 10, Starting on Fri08/06/21 at 1043, For 4 doses, PACU (only), Up to maximum total dose of 2 mg HYDROmorphone injection 0.5 mg (DILAUDID) 0.5 mg, intravenous, Every 2 hour PRN, s evere pain or score 7-10 of 10, Starting on Fri08/06/21 at 1211, For 2 doses, May administer if pain is greater than 7 after scheduled and PRN regimen exhausted. If pain remains greater than 7, notify primary service. naloxone injection 0.2 mg 0.2 mg, intravenous, As needed, respirat ory depression, Starting on Fri08/06/21 at 1211, For RASS Score -4 or less, respiratory rate of less than 8 breaths/min. Notify provider/service and rapid response team (if available at institution). ondansetron (PF) injection 4 mg (ZOFRAN) 4 mg, intravenous, Every 6 hours PRN, na usea, vomiting, Starting on Fri08/06/21 at 1211, For 48 hours, Reassess for nausea or vomiting after at least 10 minutes. If nausea or vomiting persists administe r next ordered antiemetic medications (o rder for antiemetic medication administration ondansetron then droperidol then promethazine). oxyCODONE IR tablet 10 mg (ROXICODONE)(Linked Group 1) 2008 (Given - Provider: Clara Swann R.N.) 002 (Given - Provider: Clara Swann R.N.) 10 mg, oral, Every 4 hours PRN, severe p ain or score 7-10 of 10, Starting on Fri08/06/21 at 0735, Second line therapy. If patient is greater than 7 after 2 hours, call service for new order. oxyCODONE IR tablet 5 mg (ROXICODONE)(Linked Group 1) 2008 (See Alternative - Provider: Clara Swann R.N.) 002 (See Alternative - Provider: Clara Swann R.N.) 5 mg, oral, Every 4 hours PRN, moderate pain or score 4-6 of 10, Starting on Fri08/06/21 at 0735, Second line therapy polyethylene glycol powder packet 1 packet (MIRALAX) 1 packet, oral, Daily PRN, constipation, Starting on Fri08/06/21 at 1211, Ordered sequence of administration: polyethylene glycol, then bisacodyl until BM achieved. Avoid mixing with starch-based thickened liquids. povidone-iodine 0.25% in NaCl 0.9% sterile irrigation soluti on (CANCELED) 0940 (Given - Provider: Dk Mijares M.D.) As needed, Starting on Fri08/06/21 at 0940, Intra-Op promethazine injection 6.25 mg (PHENERGAN) 6.25 mg, intravenous, Every 6 hours PRN, nausea, vomiting, Starting on Fri08/06/21 at 1211, For 48 hours, RASS must be -2 or higher to administer. Reassess for nausea/vomiting after at least 10 minutes. If nausea or vomiting persists administ er next ordered antiemetic medications (order for antiemetic medication administration ondansetron then droperidol then promethazine). ropivacaine (PF) 200 mg, EPINEPHrine 150 mcg, ketorolac 15 mg in NaCl 0.9% 60 mL injection (ARTHROPLASTY BLOCK 100+ kg) (CANCELED) 094 0 (Given - Provider: Dk Mijares M.D.) As needed, Starting on Fri08/06/21 at 0940, Intra-Op traMADoL tablet 100 mg (ULTRAM)(Linked Group 2) 1617 (Given - Provider: Jeanine Jordan R.N.) 0841 (See Alternative - Provider: Yasmine Clemente R.N.) 100 mg, oral, Every 6 hours PRN, severe pain or score 7-10 of 10, Starting on Fri08/06/21 at 0735, First line therapy or for pain greater than comfort goal (not to exceed 400 mg in 24 hours). traMADoL tablet 50 mg (ULTRAM)(Linked Group 2) 1617 (See Alternative - Provider: Jeanine Jordan R.N.) 0841 (Given - Provider: Carol elam RShahzad) 50 mg, oral, Every 6 hours PRN, moderate pain or score 4-6 of 10, Starting on Fri08/06/21 at 0735, First line therapy Linked Groups Order Group 1: oxyCODONE IR tablet 5 mg (ROXICODONE)Jump to med 5 mg, oral, Every 4 hours PRN, moderate pain or score 4-6 of 10, Starting on Fri08/06/21 at 0735
Second line therapy
Or oxyCODONE IR tablet 10 mg (ROXICODONE)Jump to med 10 mg, oral, Every 4 hours PRN, severe p ain or score 7-10 of 10, Starting on Fri08/06/21 at 0735
Second line therapy. If patient is greater than 7 after 2 hours, call service for new order.
Group 2: traMADoL tablet 50 mg (ULTRAM)Jump to med 50 mg, oral, Every 6 hours PRN, moderate pain or score 4-6 of 10, Starting on Fri08/06/21 at 0735
First line therapy
Or traMADoL tablet 100 mg (ULTRAM)Jump to med 100 mg, oral, Every 6 hours PRN, severe pain or score 7-10 of 10, Starting on Fri08/06/21 at 0735
First line therapy or for pain greater than comfort goal (not to exceed 400 mg in 24 hours).
documented in this encounter Care Teams Mortgage Or Loan Underwriter Relationship Specialty Start Date End Date Elsewhere, Pcp PCP - General 06/07/19 documented as of this encounter
--- OUTSIDE RECORDS SUMMARY | 2022-01-23 19:37 | XMS_ITS | Encounter Summary ---
:1960 Author Organization [facility] Address [address] [place] [address] Care Team Providers Name Role Phone Elsewhere, Pcp Primary Care Provider Unavailable Reason for Visit Auth/Cert Specialty Diagnoses / Procedures Referred By Contact Refer red To Contact Diagnoses Encounter for screening for malignant neoplasm of colon colon cancer screening z12.11 Procedures [place] COLONOSCOPY DIAGNOSTIC COLONOSCOPY Referral ID Status Reason Start Date Expiration Date Visits Requ ested Visits Authorized [id number] 1 1 Encounter Details Date Type Department Care Team Description 04/18/2021 Surgery [facility] OR Kavon Espino, COLONOSCOPY [address] [place] [address] Adrian JULIAN MCLEAN [phone] [facility] [phone] [place], [place] [address] (Wo rk) Social History Tobacco Use Types [...] you attend religion or Patient refused 2021 anabaptist services? Do you belong to any clubs or No 12/20/2021 organizations such as religion groups, unions, fraternal or athletic groups, or [...] at Date Recorded Male 06/23/2021 7:46 PM CLINICAL PATHOLOGIST documented as of this encounter Last Filed Vital Signs Vital Sign Reading Time Taken Comments Blood Pressure 109/74 04/18/2021 2:30 PM CLINICAL PATHOLOGIST Pulse 67 04/18/2021 2:30 PM CLINICAL PATHOLOGIST Temperature 36.3 ??C (97.3 ??F) 04/18/2021 2:30 PM CLINICAL PATHOLOGIST Respiratory Rate 15 04/18/2021 2:30 PM CLINICAL PATHOLOGIST Oxygen Saturation 97% 04/18/2021 2:30 PM CLINICAL PATHOLOGIST Inhaled Oxygen Concentration - - Weight - - Height - - Body Mass Index - - documented in this encounter Medications at Time [...] topically daily. documented as of this encounter H&P Notes Kavon Espino M.D. - 04/18/2021 1:37 PM CST DATE: 04/18/21 CHIEF COMPLAINT: Screening colonoscopy REASON FOR EVALUATION: Screening colonoscopy HISTORY OF PRESENTING ILLNESS: Hussein Whittaker is a 60 y.o. male who has a past medical history of Keratosis Actinic and Malignant Neoplasm Of Skin Basal Cell Carcinoma (2006). The patient presents for his screening colonoscopytoday. The last colonoscopy was >10 years ago. He was told he had no polyps or lesions, and was told to have his follow up colonoscopy 7-8 years in the interim. No GI bleeding. No abdominal pain. Nochanges in bowel habits. No prior problems with anesthesia. REVIEW OF SYSTEMS: Neuro: No numbness. No tingling. Head: No headache. No deformity. Eyes: No vision changes. No jaundice. Ears: No hearing changes. No drainage. Nose: No drainage. No bleeding. Mouth: No sores. No lesions. Neck: No sore throat. No neck pain. Cardiac: No chest pain. No palpitations. Respiratory: No shortness of breath. No cough. GI: No abdominal pain. No nausea. No vomiting. No diarrhea. No constipation. : No bleeding. No dysuria. Musculoskeletal: No bone pain. No joint pain. Endo: No heat intolerance. No cold intolerance. Vascular: No coldness. No pallor. Heme: No easy bleeding. No easy bruising. ID: No fevers. No chills. Integumentary: No rashes. No lesions. PAST MEDICAL HISTORY: Past Medical History: Diagnosis Date ??? Keratosis Actinic ??? Malignant Neoplasm Of Skin Basal Cell Carcinoma 2006 left nasal PAST SURGICAL HISTORY: Past Surgical History: Procedure Laterality Date ??? KNEE JOINT OPERATION Left 07/20/2013 Arthroscopy of knee with medial meniscectomy. partial medial meniscectomy left knee ??? MOHS SURGERY ??? ORIF WRIST FRACTURE Left 1994 open reduction and internal fixation of left wrist fracture ??? OTHER CONVERTED SHX (SEE COMMENT) N/A 11/25/2006 >Mohs Micrographic Surgery With Transposition Flap Closure. ??? OTHER SURGICAL HISTORY N/A 1988 Repair of rectal fistula ALLERGIES: Allergies Allergen Reactions ??? Advil [Ibuprofen] Hives Green capsules only ??? Nyquil Hives MEDICATIONS: No current facility-administered medications on file prior to encounter. Current Outpatient Medications on File Prior to Encounter Medication Sig Dispense Refill ??? hydroCHLOROthiazide (HYDRODIURIL) 25 mg tablet Take 25 mg by mouth daily. ??? lisinopriL (PRINIVIL,ZESTRIL) 20 mg tablet Take 20 mg by mouth daily. ??? omeprazole (for_PriLOSEC) 20 mg capsule Take 1 capsule by mouth daily. ??? imiquimod (for_ALDARA) 5 % cream Apply 1 application topically 2 (two) times a week. ??? ketoconazole (NIZORAL) 2 % shampoo Apply 1 application topically daily. 240 mL 5 SOCIAL HISTORY: Social History Tobacco Use ??? Smoking status: Former Smoker ??? Smokeless tobacco: Never Used Substance Use Topics ??? Alcohol use: Not on file ??? Drug use: Not on file FAMILY HISTORY: Family History Problem Relation Age of Onset ??? Prostate cancer Brother 56 ??? Heart attack Mother ??? Hyperlipidemia Mother ??? Hypertension Mother PHYSICAL EXAMINATION: Vitals: 04/18/21 1313 BP: 137/88 Pulse: 83 Resp: 20 Temp: 36 ??C SpO2: 97% General: Awake. Alert. Oriented to time/place/person/situation. No acute distress. Head: Normocephalic. Atraumatic. Eyes: Extraocular muscles are intact. Pupils equal/round/reactive to light. Ears: No external deformity. No bleeding. No drainage. Nose: No drainage. No bleeding. No deformity. Mouth: No sores. No lesions. Neck: Trachea is midline. No jugular venous distention. Cardiac: Heart sounds are present in a regular rate, regular rhythm. No murmurs. No rubs. No gallops. Respiratory: Lung sounds are clear to bilateral auscultation. There is bilateral equal chest rise. No subcutaneous emphysema. No bony crepitus. Abdomen: Soft. Nondistended. Nontender. Musculoskeletal: No bony deformity. No long bone tenderness. Integumentary: No rash. No lesion. LAB STUDIES: No results found for this or any previous visit (from the past 24 hour(s)). IMAGING: No orders to display ASSESSMENT: Hussein Whittaker is a 60 y.o. male who has a past medical history of Keratosis Actinic and Malignant Neoplasm Of Skin Basal Cell Carcinoma (2006). The patient is being seen for screening colonoscopy PLAN: 1. NPO 2. The patient has been informed of the risks and benefits of colonoscopy with biopsy. The patient has been afforded the opportunity to ask any questions regarding the diagnosis, proposed procedure, and expectations postoperatively. All questions were answered and concerns were addressed. The patient provided their informed consent to proceed with the procedure. 3. The patient will undergo colonoscopy today. ICAL PATHOLOGIST documented in this encounter Procedure Notes Kavon Espino M.D. - 04/18/2021 1:36 PM CSTAssociated Order(s): COLONOSCOPY [facility] Patient Name: Hussein Whittaker Procedure Date: 04/18/2021 1:36 PM Date of : 1960 Age: 60 Gender: Male Procedure: Colonoscopy Providers: Gael Espino MD, Milton Vásquez (Ordering Provider) Referring Provider: Milton Vásquez Pre-op Diagnoses: Screening for colorectal malignant neoplasm Post-op Diagnoses: - Hemorrhoids found on perianal exam. - One 4 mm polyp in the ascending colon, removed with a cold snare. Resected and retrieved. - One 4 mm polyp in the transverse colon, removed with a cold snare. Resected and retrieved. - One 3 mm polyp in the descending colon, removed with a cold snare. Resected and retrieved. - The examination was otherwise normal on direct and retroflexion views. Recommendation: - Discharge patient to home. - Resume previous diet. - Continue present medications. - Await pathology results. - Repeat colonoscopy in 5 years for surveillance. - Return to referring physician PRN. Findings: Hemorrhoids were found on perianal exam. A 4 mm polyp was found in the ascending colon. The polyp was semi-pedunculated. The polyp was removed with a cold snare. Resection and retrieval were complete. Verification of patient identification for the specimen was done by the physician, nurse and surgical instrument technician using the patient's name, date and medical record number. Estimated blood loss was minimal. A 4 mm polyp was found in the transverse colon. The polyp was semi-pedunculated. The polyp was removed with a cold snare. Resection and retrieval were complete. Verification of patient identification for the specimen was done by the physician, nurse and surgical instrument technician using the patient's name, date and medical record number. Estimated blood loss was minimal. A 3 mm polyp was found in the descending colon. The polyp was semi-pedunculated. The polyp was removed with a cold snare. Resection and retrieval were complete. Verification of patient identification for the specimen was done by the physician, nurse and surgical instrument technician using the patient's name, date and medical record number. Estimated blood loss was minimal. The exam was otherwise without abnormality on direct and retroflexion views. Medicines: Propofol per Anesthesia Estimated Blood Loss: Estimated blood loss was minimal. Complications: No immediate complications. Estimated blood loss: Minimal. Procedure Details: The patient was seen, evaluated, and history reviewed. Airway and heart and lung exams were performed and were satisfactory for planned sedation care. The risks, benefits and alternatives for the procedure and sedation were discussed and informed consent was obtained. A procedural pause was conducted in the presence of assisting personnel to verify the correct patient identity and procedure to be performed. Throughout the procedure, the patient's blood pressure, pulse, and oxygen saturations were monitored continuously. The 01 [id number] was introduced under direct vision through the anus and advanced to the cecum, identified by appendiceal orifice and ileocecal valve. The colonoscopy was performed without difficulty. The patient tolerated the procedure well. The quality of the bowel preparation was good. The ileocecal valve, appendiceal orifice, and rectum were photographed. Sedation: Moderate (conscious) sedation was personally administered by an anesthesia professional. The following parameters were monitored: oxygen saturation, heart rate, blood pressure, and response to care. Total physician intraservice time was 25 minutes. Gael Espino MD 04/18/2021 2:14:13 PM This report has been signed electronically. Number of Addenda: 0 Note Initiated On: 04/18/2021 1:36 PM ICAL PATHOLOGIST documented in this encounter Plan of Treatment Upcoming Encounters Date Type Specialty Care Team Description 01/24/2022 Diagnostic Otorhinolaryngology Lara Snell Au.D. [address] [place], [place] [phone] 01/29/2022 Office Visit Orthopedic Surgery Laurie Dumont, ANA , C.N.P., D.N.P. [address] [facility] [phone] (Wo rk) documented as of this encounter Procedures Procedure Name Priority Date/Time Associated Diagnosis Comme nts SURGICAL PATHOLOGY Routine 04/18/2021 1:56 PM Res ults for this CLINICAL PATHOLOGIST procedure are i n the results section. COLONOSCOPY 04/18/2021 1:36 PM Results f or this CLINICAL PATHOLOGIST procedure are i n the results section. COLONOSCOPY 04/18/2021 1:36 PM colon cancer CLINICAL PATHOLOGIST screening z12.11 documented in this encounter Results Surgical Pathology (04/18/2021 1:56 PM CLINICAL PATHOLOGIST) Component Value Ref Test Analysis Performed At [facility] Range Method Time Signature 04/20/2021 ECLR 1:27 PM CLINICAL PATHOLOGIST Report Slade A. 04/20/2021 ECLR electronically Adrian Mckinley 1:27 PM CLINICAL PATHOLOGIST signed by Specimen Received A. Ascending colon 04/20/2021 EC LR B. Transverse colon polyp 1:27 PM CLINICAL PATHOLOGIST C. Descending colon polyp Gross Description A: ??Received in a container labeled ascending co flip are 04/20/2021 ECLR multiple tissues, 0.4 cm to 0.8 cm. All submitted in 1:27 PM CLINICAL PATHOLOGIST cassette A1. B: ??Received in a container labeled transverse colon are multiple tissues, 0.3 cm to 0.8 cm. All submitted in cassette B1 S. C: ??Received in a container labeled descending is a 0.5 cm in greatest dimension portion of tissue. All submitted in cassette C1. [id number] Interpretation FINAL DIAGNOSIS 04/20/2021 ECLR A. Colon, ascending, biopsy: ??Sessile serrated polyp. 1:27 PM CLINICAL PATHOLOGIST B. ??Colon, transverse, biopsy: ??Normal colonic mucosa. C. ??Colon, descending, biopsy: Hyperplastic polyp. Specimen (Source) Anatomical Collection Method Collection Time Re ceived Time Location / / Volume Laterality Polyp (Colon) 04/18/2021 1:56 PM CLINICAL PATHOLOGIST Polyp (Colon) 04/18/2021 1:59 PM CLINICAL PATHOLOGIST Polyp (Colon) 04/18/2021 2:04 PM CLINICAL PATHOLOGIST Narrative This result has an attachment that is no t available. Kavon Espino M.D. LAB SURG PATH ORDERABLES Performing Organization Address City/State/ZIP Code Phon e Number [facility]- [address] [place] [address] [phone] [facility] [place] [address] System in [address] COLONOSCOPY (04/18/2021 1:36 PM CLINICAL PATHOLOGIST) Specimen (Source) Anatomical Location Collection Method / Collectio n Time Received Time / Laterality Volume Narrative This result has an attachment that is no t available. Procedure Note Kavon Espino M.D. - 04/18/2021 1:36 PM CST [facility] Patient Name: Hussein Whittaker Procedure Date: 04/18/2021 1:36 PM Date of : 1960 Age: 60 Gender: Male Procedure: Colonoscopy Providers: Gael Espino MD, Milton day (Ordering Provider) Referring Provider: Milton Vásquez Pre-op Diagnoses: Screening for colorect al malignant neoplasm Post-op Diagnoses: - Hemorrhoids found on perianal exam. - One 4 mm polyp in the ascending colon , removed with a cold snare. Resected and retrieved. - One 4 mm polyp in the transverse colo n, removed with a cold snare. Resected and retrieved. - One 3 mm polyp in the descending colo n, removed with a cold snare. Resected and retrieved. - The examination was otherwise normal on direct and retroflexion views. Recommendation: - Discharge patient to home. - Resume previous diet. - Continue present medications. - Await pathology results. - Repeat colonoscopy in 5 years for nikia veillance. - Return to referring physician PRN. Findings: Hemorrhoids were found on perianal exam . A 4 mm polyp was found in the ascending colon. The polyp was semi-pedunculated. The polyp was remove d with a cold snare. Resection and retrieval were complete. Verificati on of patient identification for the specimen was done by the physician, nurse and surgical instrument technician using the patient's name, date and medical record number. Estimated blood loss was minimal. A 4 mm polyp was found in the transvers e colon. The polyp was semi-pedunculated. The polyp was remove d with a cold snare. Resection and retrieval were complete. Verificati on of patient identification for the specimen was done by the physician, nurse and surgical instrument technician using the patient's name, date and medical record number. Estimated blood loss was minimal. A 3 mm polyp was found in the descendin g colon. The polyp was semi-pedunculated. The polyp was remove d with a cold snare. Resection and retrieval were complete. Verificati on of patient identification for the specimen was done by the physician, nurse and surgical instrument technician using the patient's name, date and medical record number. Estimated blood loss was minimal. The exam was otherwise without abnormal ity on direct and retroflexion views. Medicines: Propofol per Anesthesia Estimated Blood Loss: Estimated blood lo ss was minimal. Complications: No immediate complication s. Estimated blood loss: Minimal. Procedure Details: The patient was seen, evaluated, and history reviewed. Airway and heart and lung exa ms were performed and were satisfactory for blane nned sedation care. The risks, benefits and alternatives fo r the procedure and sedation were discussed a nd informed consent was obtained. A procedural paus e was conducted in the presence of assisting personnel to verify the correct patient identity and procedure to be performed. Throughout the procedure, the patient's blood pressure, pulse, and ox ygen saturations were monitored continuously . The 01 [id number] was introduced under direct vision through the anus and advanced to the cecum, identified by appendiceal orifice and i leocecal valve. The colonoscopy was performed wi thout difficulty. The patient tolerated the p rocedure well. The quality of the bowel preparat ion was good. The ileocecal valve, appendiceal orific e, and rectum were photographed. Sedation: Moderate (conscious) sedation was perso maritza administered by an anesthesia professional. The following parameters were monitored: oxygen saturation, heart rate, blood pressure, and response to care. Total physician intraservice time was 25 evangelina [address]a. Gael Espino MD 04/18/2021 2:14:13 PM This report has been signed electronical ly. Number of Addenda: 0 Note Initiated On: 04/18/2021 1:36 PM Milton Vásquez M.D. GI PROCEDURE ORDERABLES documented in this encounter Visit Diagnoses Not on filedocumented in this encounter Administered Medications Inactive Administered Medications - up to 3 most recent administrations Medication Order MAR Action Action Date Dose Rate Site lactated ringers New Bag 04/18/2021 1:22 PM CLINICAL PATHOLOGIST 75 mL/hr 75 mL/hr 75 mL/hr, intravenous, Continuous, Starting on Fri04/18/21 at 1330, Pre-Op sodium chloride 0.9 % injection 10 mL 10 mL, intravenous, As needed, line care , Starting on Fri04/18/21 at 1319, Pre-Op, Peripheral Intravenous Catheter and Rapid Infusion Cat heter, prior to blood sampling, post blood transfusion or post blood samplin g sodium chloride 0.9 % injection 3 mL 3 mL, intravenous, As needed, line care, Starting on Fri04/18/21 at 1319, Pre-Op, Prior to and following infusion and betw een multiple consecutive infusions: sodium chloride 0.9 % injection sodium chloride 0.9 % injection 3 mL 3 mL, intravenous, Every 12 hours scheduled, First dos e on Fri04/18/21 at 2100, Pre-Op, Peripheral Intravenous Catheter and Rapid Infu isadora Catheter, when no infusion to maintain patency documented in this encounter Active and Recently Administered Medications Times are shown in CLINICAL PATHOLOGIST. Scheduled Medication Order 04/16/2021 04/17/2021 04/18/2021 lidocaine 10 mg/mL (1 %) injection 1 mL (XYLOCAINE) 1330 (Due) 1 mL, infiltration, Once, On Fri04/18/21 at 1330, For 1 dose, Pre-Op, May admin up to 1 mL at the site of IV site if not allergic to lidocaine sodium chloride 0.9 % injection 3 mL 3 mL, intravenous, Every 12 hours schedu led, First dose on Fri04/18/21 at 2100, Pre-Op, Peripheral Intravenous Catheter and Rapid Infusion Catheter, when no infusion to maintain patency sodium chloride 0.9 % injection 3 mL 3 mL, intravenous, Every 12 hours schedu led, First dose on Fri04/18/21 at 2100, Pre-Op, Peripheral Intravenous Catheter and Rapid Infusion Catheter, when no infusion to maintain patency Continuous Medication Order 04/16/2021 04/17/2021 04/18/2021 lactated ringers 1330 (Due) 20 mL/hr, intravenous, Continuous, Starting on Fri04/18/21 at 13 30, Pre-Op lactated ringers 1322 (New Bag - Provider: Caroline Tang R.N.) 75 mL/hr, intravenous, Continuous, Starting on Fri04/18/21 at 13 30, Pre-Op PRN Medication Order 04/16/2021 04/17/2021 04/18/2021 sodium chloride 0.9 % injection 10 mL 10 mL, intravenous, As needed, line care , Starting on Fri04/18/21 at 1319, Pre- Op, Peripheral Intravenous Catheter and Rapid Infusion Catheter, prior to blood sampling, post blood transfusion or post blood sampling sodium chloride 0.9 % injection 10 mL 10 mL, intravenous, As needed, line care , Starting on Fri04/18/21 at 1319, Pre- Op, Peripheral Intravenous Catheter and Rapid Infusion Catheter, prior to blood sampling, post blood transfusion or post blood sampling sodium chloride 0.9 % injection 3 mL 3 mL, intravenous, As needed, line care, Starting on Fri04/18/21 at 1319, Pre- Op, Prior to and following infusion and between multiple consecutive infusions: sodium chloride 0.9 % injection sodium chloride 0.9 % injection 3 mL 3 mL, intravenous, As needed, line care, Starting on Fri04/18/21 at 1319, Pre- Op, Prior to and following infusion and between multiple consecutive infusions: sodium chloride 0.9 % injection documented in this encounter Care Teams Mental Health Coordinator Relationship Specialty Start Date End Date Elsewhere, Pcp PCP - General 06/07/19 documented as of this encounter
--- OUTSIDE RECORDS SUMMARY | 2022-01-23 19:37 | XMS_ITS | Encounter Summary ---
:1960 Author Organization [facility] Address [address] [place] [address] Care Team Providers Name Role Phone Elsewhere, Pcp Primary Care Provider Unavailable Reason for Visit Auth/Cert Specialty Diagnoses / Procedures Referred By Contact Refer red To Contact Diagnoses Primary Osteoarthritis Knee Left Primary Osteoarthritis Knee Left [M17.12] Procedures HI ARTHRO KNEE CONDYLE&PLAT (TKA) BARBER ROBOTIC-ASSISTED KNEE TOTAL ARTHROPLASTY - LEFT Referral ID Status Reason Start Date Expiration Date Visits Requ ested Visits Authorized [id number] 1 1 Encounter Details Date Type Department Care Team Description 08/06/2021 Anesthesia Event [facility] MAIN OR Miriam eG M.D. [address] [facility] [address] [facility] [place] [address] [place] [place] [phone] (Wo rk) Anesthesia Record Procedure Summary Procedure Name Responsible Anesthesia Start Anesthesia Stop Anesthesiologist Time Time BARBER ROBOTIC-ASSISTED Miriam Ge M.D. 08/06/21 0812 08/06 1041 KNEE TOTAL ARTHROPLASTY (Left: Knee) Events Date Time Event Comment 08/06/2021 0701 0800 An Start Data 0808 an stop data 0812 An Start Machine/Equipmen t Checked Infection Precautions Foll owed Procedure/Site Verified NPO Sta tus Verified Supine Standard ASA Mon itors Applied 0813 Anesthesia Time Out 0814 Block Start 0818 Block End 0818 Turnover to Proceduralist 0856 Proc Start 1031 Proc Fin 1034 Turnover to ANE Staff 1036 an stop data 1041 An End I completed my h andoff to the receiving staff during [facility] we 1. Identified the patient 2. Ident ified the responsible provider 3. Revi ewed the pertinent medical history 4. Discu ssed the surgical course 5. Reviewed intra-o p anesthesia management and issues during an esthesia 6. Set expectations for post-procedure period 7. Allowed opportun ity for questions and acknowledgement of understanding. Name Total midazolam 1 mg/mL injection 6 mg fentaNYL 50 mcg/mL injection 100 mcg propofol 10 mg/mL infusion 1,072.03 mg bupivacaine-EPINEPHrine PF 0.5%-1:200,000 injection 15 mL dexmedeTOMIDine (PRECEDEX) injection 200 mcg/2 mL anes only 50 mcg lidocaine 2% (mg) injection 40 mg propofol 10 mg/mL injection 40 mg ePHEDrine PF 5 mg/mL injection 25 mg phenylephrine 100 mcg/mL injection 100 mcg ondansetron 4 mg/2 mL injection 4 mg dexamethasone 4 mg/mL injection 4 mg ceFAZolin injection 2,000 mg (ANCEF) 2 g bupivacaine-dextrose PF 0.75%-8.25% injection 1.7 mL tranexamic acid in NaCl IVPB 1,000 mg (CYKLOKAPRON) 1 g tranexamic acid in NaCl IVPB 1,000 mg (CYKLOKAPRON) 1 g phenylephrine 20 mg/250 mL infusion 2.31 mg lactated ringers 1,500 mL Agents No agents on file. Blood No blood administrations on file. Lines, Drains, and Airways Type Details Placement Removal Wound 08/06/21; 1006; N; Knee; 08/06/21 1006 by Anterior, Left; Zip-line, Jason Bustos, Edgardo, 6 double John R.N. Peripheral IV Placement Date: 08/06/21; 08/06/21 0712 by 08/07 1021 by Placement Time: 0712; Lisbeth Caballero Anthon y, Lana N, Catheter Size: 20 G; R.N. C.N.A. Orientation: Posterior, Right; Location: Wrist; Site Prep: Chlorhexidine (Preferred); Technique: Anatomical landmarks; Insertion Attempts: 1; Removal Date: 08/07/21; Removal Time: 1021; Removal Reason: Per protocol Indwelling Urinary Placement Date: 08/06/21; 08/06/21 0837 by [id number] by Catheter Placement Time: 0837; Jason Bustos Kiesow, S ophia E, Inserted by: Cassidy Bustos R.N., R.N. RN; Type: Non-latex; Size: 16 Fr.; Balloon Size: 5 mL; Urine Returned: Yes; Removal Date: 08/07/21; Removal Time: 631; Removal Reason: Criteria for drain removal met, Per protocol (tolerated well, intact) documented in this encounter Social History Tobacco [...] or relatives? How often do you attend amish or Patient refused 2021 scientology services? 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 - 08/06/2021 2:06 PM CDT Patient: Hussein Whittaker Procedure Summary Date: 08/06/21 Room / Location: [address] [facility] - GI Anesthesia Start: 811 Anesthesia Stop: 104 Procedure: BARBER ROBOTIC-ASSISTED KNEE TOTAL ARTHROPLASTY (Left Knee) Diagnosis: Primary Osteoarthritis Knee Left (Primary Osteoarthritis Knee Left [M17.12]) Surgeons: Dk Mijares M.D. Responsible Provider: Miriam Ge M.D. Anesthesia Type: regional ASA Status: 2 Anesthesia Type: regional Last vitals Vitals Value Taken Time BP 121/73 08/06/21 1140 Temp 36.2 ??C 08/06/21 1130 Pulse 67 08/06/21 1142 Resp 16 08/06/21 1140 SpO2 95 % 08/06/21 1142 Vitals shown include unvalidated device data. Please reference Vitals flowsheet for most recent vital signs. Anesthesia Post Evaluation Patient Disposition: general care unit Cardiovascular status: hemodynamics (HR & BP) acceptable Respiratory status: patent airway with spontaneous effort Temperature: normothermic Oxygen requirements: room air Level of consciousness: awake Pain score: pain adequately controlled and/or at baseline Post Op nausea/vomiting: none Hydration status: euvolemic Anesthesia Procedure Notes - Maeve Pino R.N. - 08/06/2021 9:17 AM CDT Associated Order(s): Regional Block Regional Block Date/Time: 08/06/2021 8:18 AM Performed by: Maeve Pino R.N. Authorized by: Miriam eG M.D. Care team members present 1. Maeve Pino R.N. Location: OR PROCEDURE DETAILS: Block Indication: primary anesthetic Block Type - Neuraxial: spinal Positioning: sitting Approach: midline Level inserted: L3-4 Injection technique: single injection Needle type: pencan Gauge: 25G Length: 5 CSF: yes Pain with needle advancement or injection of [...] completed successfully: successful procedure Other complications: none ATTESTATION STATEMENT Anesthesia Procedure Notes - Keaton Valdez APRN, CRNA - 08/06/2021 8:09 AM CDTAssociated Order(s): Regional Block Regional Block Date/Time: 08/06/2021 8:09 AM Performed by: Keaton Valdez APRN, CRNA Authorized by: Keaton Valdez APRN, CRNA Location: Pre Op / PACU [...] technique: single injection Needle type: echogenic Gauge: 21G Test dose: yes- negative test dose Incremental [...] SEDATION / ANESTHESIA Anesthesia method: local infiltration Local infiltrate type: lidocaine POST-PROCEDURE DETAILS: Procedure completed successfully: successful procedure Other complications: none ATTESTATION STATEMENT Anesthesia Preprocedure Evaluation - Miriam Ge M.D. - 08/06/2021 7:00 AM CDT Preprocedure Anesthesia & H&P Assessment Procedure Summary Date/Time: 08/06/21814 Procedure: BARBER ROBOTIC-ASSISTED KNEE TOTAL ARTHROPLASTY - LEFT (Left ) Diagnosis: Primary Osteoarthritis Knee Left [M17.12] Pre-op diagnosis: Primary Osteoarthritis Knee Left [M17.12] Location: [place] [address] / [facility] - GI Surgeons: Dk Mijares M.D. Pertinent [...] Obesity Due To Excess Calories (HCC) (+) Primary Osteoarthritis Knee Left EKG- NSR Hb 14.3, Cr 1.05 OBJECTIVE PHYSICAL EXAMINATION Airway (HEENT) [...] PLAN ANESTHESIA PLAN ASA: 2 Anesthesia Plan: regional Patient seen and allergies reviewed, anesthesia plan and risks discussed directly with patient /legal guardian or through an optics test technician. Risks/Benefits/Alternatives of Blood transfusion discussed with patient / legal guardian, including an opportunity to ask questions and/or decline some or all transfusion therapies. The patient / legalguardian consented to the use of all blood products, as deemed medically necessary Approval to Proceed: approved for anesthesia documented in this encounter Plan of Treatment Upcoming Encounters Date Type Specialty Care Team Description 01/24/2022 Diagnostic Otorhinolaryngology Lara Snell Au.D. [address] [facility] [place], [place] [phone] 01/29/2022 Office Visit Orthopedic Surgery Laurie Dumont APRN , C.N.P., D.N.P. [address] [facility], [place] [phone] (Wo rk) documented as of this encounter Procedures Procedure Name Priority Date/Time Associated Comments Diagnosis ANESTHESIA REGIONAL Routine 08/06/2021 8:18 AM Re sults for this BLOCK CDT procedure are i n the results section. [facility] ANE NERVE BLOCK Routine 08/06/2021 8:09 AM Res ults for this WITH ULTRASOUND CDT procedure ar e in the results section. HI US GUIDE PLC NDL Routine 08/06/2021 8:09 AM Re sults for this CDT procedure are i n the results section. HI INJ ANES FEM Routine 08/06/2021 8:09 AM Result s for this NERVE CDT procedure are i n the results section. documented in this encounter Results Regional Block (08/06/2021 8:18 AM CDT) Narrative Miriam Ge M.D. - 08/06/2021 8:18 A M CDT Maeve Pino R.N. ? 08/06/2021 12:46 PM Regional Block Date/Time: 08/06/2021 8:18 AM Performed by: Maeve Pino R.N. Authorized by: Miriam Ge M.D. Care team members present 1. Maeve Pino R.N. Location: OR PROCEDURE DETAILS: Block Indication: primary anesthetic ?? Block Type - Neuraxial: spinal Positioning: sitting ?? Approach: midline Level inserted: L3-4 Injection technique: single injection Needle type: pencan Gauge: 25G Length: 5 CSF: yes ??Pain with needle advancement or injection of local anesthetic: no ?? Injected Medications: [...] successfully: succes sful procedure Other complications: none ATTESTATION STATEMENT Miriam Ge M.D. PROCEDURE/MINOR SURGICAL ORD ERABLES HI INJ ANES FEM NERVE, HI US GUIDE JAM DOMÍNGUEZ [facility] ANE NERVE BLOCK WITH ULTRASOUND (08/06/2021 8:09 AM CDT) Narrative Keaton Valdez APRN, CRNA - 022 8:09 AM CDT Keaton Valdez APRN, CRNA ? 08/06/2021 ??8:10 AM Regional Block Date/Time: 08/06/2021 8:09 AM Performed by: Keaton Valdez APRN, CRNA Authorized by: Keaton Valdez APRN, CRNA Location: Pre Op / PACU [...] technique: single injection Needle type: echogenic Gauge: 21G Test dose: yes- negative test dose ?? 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 PROCEDURE/MINOR SURGICAL ORDERABLES documented in this encounter Visit Diagnoses Not on filedocumented in this encounter Administered Medications Inactive Administered Medications - up to 3 most recent administrations Medication Order MAR Action Action Date Dose Rate Site wtqqexbfngo-hoeshcqh-bfvwa (PF) Given 08/06/2021 8:18 AM CDT 1.7 mL 0.75 % (7.5 mg/mL) injection (MARCAINE SPINAL) intrathecal, As needed, Starting on Fri08/06/21 at 0818, Anesthesia Intra-op bupivacaine-EPINEPHrine (PF) 0.5 %-1:200,000 Given 8:06 AM CDT 15 mL injection (MARCAINE w/EPI) peripheral nerve block, As needed, Starting on Fri08/06/21 at 0806, Anesthesia Intra-op ceFAZolin injection 2,000 mg (ANCEF) Given 08/06/2021 8:30 AM CDT 2 g 2,000 mg (rounded from 2,925 mg = 25 mg/ kg ? 117 kg), intravenous, Once, On Fri08/06/21 at 0645, For 1 dose, Intra-Op, Preoperatively within 1 hour prior to surgical incision If needed, reconstitute vial per package insert instructions. See IVAG for administration guidelines. , Drug Monitoring Program: Pharmacist to adjust medication dosing based on indication and drug clearance factors., Indications: Prophylaxis, surgical dexAMETHasone injection (DECADRON) Given 08/06/2021 8:35 AM CDT 4 mg intravenous, As needed, Starting on Fri08/06/21 at 0835, Anesthesia Intra-op dexmedeTOMIDine injection (PRECEDEX) Given 08/06/2021 8:06 AM CDT 50 mcg peripheral nerve block, As needed, Starting on Fri08/06/21 at 0806, Anesthesia Intra-op ePHEDrine (PF) injection Given 08/06/2021 8:52 AM CDT 10 mg intravenous, As needed, Starting on Fri08/06/21 at 0837, Anesthesia Intra-op Given 08/06/2021 8:46 AM CDT 5 mg Given 08/06/2021 8:38 AM CDT 5 mg fentaNYL injection (SUBLIMAZE) Given 08/06/2021 8:03 AM CDT 100 mcg intravenous, As needed, Starting on Fri08/06/21 at 0803, Anesthesia Intra-op lactated ringers New Bag 08/06/2021 9:16 AM CDT 1000 mL/hr 20 mL/hr, intravenous, Continuous, Starting on Fri08/06/21 at 0645 Rate/Dose Verify 08/06/2021 8:12 AM CDT 20 mL/hr New Bag 08/06/2021 6:57 AM CDT 20 mL/hr 20 mL/hr lidocaine (PF) (cardiac) injection Given 08/06/2021 8:25 AM CDT 40 mg intravenous, As needed, Starting on Fri08/06/21 at 0825, Anesthesia Intra-op midazolam (PF) injection (VERSED) Given 08/06/2021 8:25 AM CDT 2 mg intravenous, As needed, Starting on Fri08/06/21 at 0803, Anesthesia Intra-op Given 08/06/2021 8:03 AM CDT 2 mg Given 08/06/2021 8:01 AM CDT 2 mg ondansetron (PF) injection (ZOFRAN) Given 08/06/2021 8:35 AM CDT 4 mg intravenous, As needed, Starting on Fri08/06/21 at 0835, Anesthesia Intra-op phenylephrine 80 mcg/mL in Rate/Dose 08/06/2021 9:52 0.1 mcg/kg/min 8.85 mL/hr NaCl 0.9% 250 mL infusion Change AM CDT intravenous, Continuous Infusion: Per Instructions PRN, Starting on Fri08/06/21 at 0852, Anesthesia Intra-op Rate/Dose Change 08/06/2021 9:35 AM CDT 0.2 mcg/kg/min 17.7 mL/hr Rate/Dose Change 08/06/2021 9:12 AM CDT 0.3 mcg/kg/min 26.55 mL/hr phenylephrine injection Given 08/06/2021 8:38 AM CDT 100 mcg intravenous, As needed, Starting on Fri08/06/21 at 0838, Anesthesia Intra-op propofol 10 mg/mL infusion Rate/Dose 08/06/2021 30 mcg/kg/min 21.24 (DIPRIVAN) Change 10:10 AM CDT mL/hr intravenous, Continuous Infusion: Per Instructions PRN, Starting on Fri08/06/21 at 0825, Anesthesia Intra-op Rate/Dose Change 08/06/2021 9:59 AM CDT 50 mcg/kg/min 35.4 mL/hr Rate/Dose Change 08/06/2021 9:20 AM CDT 100 mcg/kg/min 70.8 mL/hr propofoL injection (DIPRIVAN) Given 08/06/2021 8:25 AM CDT 40 mg intravenous, As needed, Starting on Fri08/06/21 at 0825, Anesthesia Intra-op tranexamic acid in NaCl IVPB 1,000 mg Given 08/06/2021 8:48 AM C DT 1 g (CYKLOKAPRON) 1,000 mg (1 g), intravenous, at 300 mL/hr, Administer over 20 Minutes, Once, On Fri08/06/21 at 0645, For 1 dose, Intra-Op, Administer in OR upon induction tranexamic acid in NaCl IVPB 1,000 mg Given 08/06/2021 10:07 AM CDT 1 g (CYKLOKAPRON) 1,000 mg (1 g), intravenous, at 300 mL/hr, Administer over 20 Minutes, Once, On Fri08/06/21 at 0645, For 1 dose, Intra-Op, Administer in OR just before dropping tourniquet documented in this encounter Care Teams Parboiler Relationship Specialty Start Date End Date Elsewhere, Pcp PCP - General 06/07/19 documented as of this encounter
--- OUTSIDE RECORDS SUMMARY | 2022-01-23 19:37 | XMS_ITS | Encounter Summary ---
:1960 Author Organization [facility] Address [address] [place] [address] Care Team Providers Name Role Phone Elsewhere, Pcp Primary Care Provider Unavailable Reason for Visit Outpatient (Routine) - Pending Review Specialty Diagnoses / Procedures Referred By Contact Refer red To Contact Anesthesiology Diagnoses Primary Osteoarthritis Knee Left Dk Mijares, [facility] [address] [place] [address] Referral ID Status Reason Start Date Expiration Date Visits V isits Requested Authorized [id number] Pending 06/28/2021 06/28/2022 1 1 Review Encounter Details Date Type Department Care Team Description 07/30/2021 Virtual Visit Preoperative Dk Mijares M.D. [address] [place] [phone] Preanesthetic Medical Exam (Primary Dx); Evaluation Center in [place] gard[place] R.N. [address] [place] [phone] Primary Osteoarthritis Knee Left [place], [place] [address] [place] [phone] Social History Tobacco Use Types Packs/Day [...] you attend zoroastrianism or Patient refused 2021 yazidi services? Do you belong to any clubs or No 12/20/2021 organizations such as zoroastrianism groups, unions, [employer] or athletic groups, or school groups? 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 - 07/30/2021 3:00 PM CDT Surgery Nurse Pumper Gauger Skin Alert Assessment: Complete this section only [...] lying flat? No Do you have any yazidi or other objection to having a blood transfusion? No Teaching: Preoperative education was done with (x) patient (_) parent _. It was confirmed the patient/family member had received the following preoperative education sheets:Checklist For Surgical Patients ([id number]),???Surgical Site Infections: Reducing Your Risk ([id number]), Speak Up: Antibiotics ([id number]), Acute Pain and the Healing Process ([id number]) with the [facility] ([id number]), and ???Appointments Required Before Your Surgery?? (no MC). These were reviewed in detail. (x) Preoperative medication education provided through Ask [place] Expert (x) Preoperative COVID-19 testing ordered and discussed with patient Total Joint Class scheduled: (_) N/A Date: 07/24 Knee Manipulation-CPM set-up: (x) N/A (_) Yes and PT notified (x)Total Joint Surgery: Total Joint Class (good for one year). (x) Reviewed Hibiclens packet and reviewed Reducing Your Risk of Surgical Infection ([id number]). (_)Preop OT appt (total shoulders only). (_) Reviewed Hibiclens packet and reviewed Reducing Your Risk of Surgical Infection ([id number]) NA (x) CT preop for BARBER Robotic Assist? Y/N (Y) Date (07/02/21) N/A (_) Additional Pamphlets also reviewed: (_)Parental Presence in the Operating Room (agH:Order Sets/Surgery/Home Instructions/TonsillectomyTeaching Checklist/PE Tubes Teaching Sheet 11/17/11) (_) Shoulder Replacement Surgery: Anatomic Prosthesis ([id number]) and reviewed teaching points for total shoulders instructions. (_) Shoulder Replacement Surgery: Reverse Prosthesis ([id number]) and reviewed teaching points for total shoulders [...] appointments: 1st po with surgeon or physician wardrobe assistant: (x) made (_)TBD (_)PO OT appt made (Hand surgery if requested) documented in this encounter Plan of Treatment Upcoming Encounters Date Type Specialty Care Team Description 01/24/2022 Diagnostic Otorhinolaryngology Lara Snell Au.D. [address] [place] [phone] 01/29/2022 Office Visit Orthopedic Surgery Laurie Dumont, ANA , C.N.P., D.N.P. [address] [place] [phone] (Wo rk) documented as of this encounter Visit Diagnoses Diagnosis Preanesthetic Medical Exam - Primary Primary Osteoarthritis Knee Left documented in this encounter Care Teams Fold Skiver Relationship Specialty Start Date End Date Elsewhere, Pcp PCP - General 06/07/19 documented as of this encounter
--- OUTSIDE RECORDS SUMMARY | 2022-01-23 19:37 | XMS_ITS | Encounter Summary ---
:1960 Author Organization [facility] Address [address] [place] [address] Care Team Providers Name Role Phone Elsewhere, Pcp Primary Care Provider Unavailable Reason for Visit Reason Comments Med Refill Encounter Details Date Type Department Care Team Description 08/10/2021 Refill Department of Orthopedic Jelly Elizabeth M.D. Med Refill Surgery in [place], [place] [address] [place] [address] [address] [place] [address] [place] [address] [phone] Social History Tobacco Use Types Packs/Day Years [...] you attend bahai or Patient refused 2021 baptist services? 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 - 08/10/2021 3:24 PM CDT Refill oxycodone; last refill 08/07/21; left total knee 08/06/21/ Maryana Routing to Dr. Elizabeth in Dr. Mijares absence. documented in this encounter Plan of Treatment Upcoming Encounters Date Type Specialty Care Team Description 01/24/2022 Diagnostic Otorhinolaryngology Lara Snell Au.D. [address] [place], [place] [phone] 01/29/2022 Office Visit Orthopedic Surgery Laurie Dumont APRN , C.N.P., D.N.P. [address] [place], [place] [phone] (Wo rk) documented as of this encounter Visit Diagnoses Not on filedocumented in this encounter Care Teams Candle Wrapper Relationship Specialty Start Date End Date Elsewhere, Pcp PCP - General 06/07/19 documented as of this encounter
--- OUTSIDE RECORDS SUMMARY | 2022-01-23 19:37 | XMS_ITS | Encounter Summary ---
:1960 Author Organization [facility] Address [address] [place] [address] Care Team Providers Name Role Phone Elsewhere, Pcp Primary Care Provider Unavailable Reason for Visit Auth/Cert Specialty Diagnoses / Procedures Referred By Contact Refer red To Contact Diagnoses Primary Osteoarthritis Knee Left Primary Osteoarthritis Knee Left [M17.12] Procedures AR ARTHRO KNEE CONDYLE&PLAT (TKA) BARBER ROBOTIC-ASSISTED KNEE TOTAL ARTHROPLASTY - LEFT Referral ID Status Reason Start Date Expiration Date Visits Requ ested Visits Authorized [id number] 1 1 Encounter Details Date Type Department Care Team Description 08/06/2021 Surgery [facility] OR Dk Mijares MAKO ROBOTIC-ASSISTED [address] M[address]D. KNEE TOTAL [place]ROP[place] [phone] [phone] [place] [phone] (Wo rk) Social History Tobacco Use Types [...] or relatives? How often do you attend sikh or Patient refused 2021 cheondoism services? 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 - 08/07/2021 7:47 AM CDT DISCHARGE SUMMARY BRIEF OVERVIEW Hospital: [facility] Discharge Provider: Dk Mijares M.D. Primary Care [...] BARBER ROBOTIC-ASSISTED KNEE TOTAL ARTHROPLASTY Dk Mijares M.D.Nieves Hunter APRN, C.N.P., D.N.P.Laurie Dumont APRN, C.N.P., D.N.P. [facility] OR DISCHARGE DISPOSITION Home or Self Care [1] ACTIVE ISSUES REQUIRING FOLLOW UP None OUTPATIENT FOLLOW UP Scheduled Appointments 08/10/2021 2:00 PM Dian Clarke P.T. Physical Medicine and Rehabilitation 08/21/2021 9:45 AM [...] as of this encounter Progress Notes Tala Schmid, PMisael. - 08/07/2021 9:47 AM CDT Physical Therapy [...] next session: DC home outpatient PT in [place] Inpatient AVS Complete - PT: Yes Time [...] home with outpatient therapy set up in [place] to address remaining impairments of range of [...] this encounter Consult Notes Maria Esther Hsieh, O.T. - 08/07/2021 11:15 AM CDT Consults Occupational [...] Procedure: COLONOSCOPY; Surgeon: Kavon Espino M.D.; Location: [facility] OR ??? KNEE JOINT OPERATION Left 07/20/2013 [...] Function/Occupational Profile: Prior Mobility/Functional Transfers Level of 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 Can do some licensed master social worker, but also needs to be able [...] Comfort height Home Equipment Home Adaptive Equipment: Kier Drier, Sock aid, Dressing stick, Long-handled shoe horn, [...] Whittaker had a standardized score of 47.1. [facility]'s 3-year data, as reported at [facility] 2017, indicates a cut off of 39.4 or greater in daily activity is a fair to good accurate prediction of discharge home. Source: AM-PAC ???6 -Clicks?? functional assessment scores predict acute care hospital discharge destination. Nursing Care Attendant. 2014 Jan; 94 (9): 1252-61. AM-PAC Activity: [...] while seated, threadingsurgical lower extremity 1st, using stone gang sawyer if needed; patient receptive Toileting Toileting Location: [...] a 60 y.o. year old admit to [facility] [place] Med/Surg following a left TKA on 08/06/2021. [...] recliner or while in bed ??? Obtain/utilize stone gang sawyer, sock aid, shower chair, and other AE/DME as needed to complete daily tasks Bathroom Safety Equipment ([id number]); Home Safety Tips ([id number]); Safe Car Transfer Handout; Adaptive Equipment Information [...] of this patient. SUBJECTIVE Patient's Name: Hussein Wihttaker Referring/Attending Provider: Dk Mijares M.D. Medical Diagnosis: Primary Osteoarthritis Knee Left [M17.12] Reason for Referral: PT eval and treat. TKA protocol Onset Date: 08/06/21 Payor: [employer] BLUE [employer]IELD / Plan: [facility] [place] / Product Type: PPO / PERTINENT MEDICAL [...] Procedure: COLONOSCOPY; Surgeon: Kavon Espino M.D.; Location: [facility] OR ??? 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 Can do some licensed master social worker, but also needs to be able [...] split level home tomorrow, outpatient physical therapy [facility] on Friday Patient Comments: he is pleasant and ready for therapy. His pain subsides when he sits to rest again. He is engaged in learning in asks appropriate questions. Activity Orders (From admission, onward) Start Ordered 08/06/21 121 Activity: Up with Assistance Until discontinued Comments: [...] the physical therapist. OBJECTIVE Measures - Tools AM-PAC Basic Mobility (V.2) How much help from [...] AM-PAC Basic Mobility (V.2) Standardized Score: 43.99 AM-PAC 6 Clicks Interpretation: Clinicians answer the AM-PAC Inpatient Short Form based on observed patient activity and/or clinicaljudgement (ie. Patient can be scored without physically performing each activity). According to raw scoring guidelines: Those going to home had an average score of 20.1 Those going home with home care had an average score of 17.9 Those going to senior living facility had an average score of 14 Those going to inpatient rehab facility had an average score of 13.6 Those going to a terminal carman care facility had an average score of [...] min documented in this encounter Nursing Notes Carlo Clemente R.N. - 08/07/2021 12:01 PM CDT [...] total knee arthroplasty. SURGEON: Dk Mijares M.D. HEAD BAKER: Dr. Luis Fu A programs assistant actively participated and was necessary for one [...] using #1 Vicryl in a n interrupted [id number] fashion followed by copious irrigation of subcutaneous tissue with closure of this using 2-0 Vicryl. The skin was then closed using ZipLine device followed by Aquacel Ag dressing and BERNABE bandage. The tourniquet was let down. The patient was transferred to recovery in good condition. Needle and sponge counts were correct at the end of the case. Dk Mijares M.D. documented in this encounter Plan of Treatment Upcoming Encounters Date Type Specialty Care Team Description 01/24/2022 Diagnostic Otorhinolaryngology Lara Snell Au.D. [address] [facility] [place] [phone] 01/29/2022 Office Visit Orthopedic Surgery Laurie Dumont, ANA , C.N.P., D.N.P. [address] [place] [phone] (Wo rk) Scheduled Referrals Name [...] Results (ABNORMAL) Hemoglobin (08/07/2021 6:20 AM CDT) athologist Signature Hemoglobin 11.6 (L) 13.2 - 16.6 08/07/2021 [facility] g/dL 6:50 AM CDT Specimen Anatomical Collection Method Collection Time Receive d Time (Source) Location / / Volume Laterality Blood (Blood, 08/07/2021 6:20 AM 08/08/19 6:42 Venous) CDT AM CDT Nieves Hunter APRN, C.N.P., D.N.P. LAB BLOOD ADD-ON Performing Organization Address City/State/ZIP Code Phon e Number [facility] [address] [place], [place] [address] [address] [place] [address] System in [place] [address] documented in this encounter Visit Diagnoses Diagnosis Primary Osteoarthritis Knee Left - Prima ry Primary Osteoarthritis Knee Left documented in this encounter Admitting Diagnoses Diagnosis Primary Osteoarthritis Knee Left documented in this encounter Administered Medications Inactive Administered Medications - up to 3 most recent administrations Medication Order MAR Action Action Date Dose Rate Site acetaminophen tablet 1,000 mg Given 08/06/2021 6:56 AM CDT 1,000 mg (TYLENOL) 1,000 mg, oral, Once, On 08/06/21 at 0645, For 1 dose, Pre-Op acetaminophen [...] Do NOT crush, chew, or split tablet. povidone-iodine 0.25% in NaCl 0.9% Given 08/06/2021 9:40 AM CDT 1,000 mL Left Knee sterile irrigation solution As needed, Starting on Fri08/06/21 at 0940, Intra-Op ropivacaine (PF) 200 mg, EPINEPHrine Given 08/06/2021 9:40 AM CD T 60 mL Left Knee 150 mcg, ketorolac 15 mg in NaCl 0.9% 60 mL injection (ARTHROPLASTY BLOCK 100+ kg) As needed, Starting on Fri08/06/21 at 0940, Intra-Op sennosides-docusate sodium 8.6-50 mg per Given 08/07/2021 [...] (COMPLETED) 0656 (Given - Provider: Lisbeth Caballero R.NFarshad) 1,000 mg, oral, Once, On Fri08/06/21 at 0645, For 1 dose, Pre-Op acetaminophen tablet 1,000 mg (TYLENOL) 1356 (Given - Provider: Kathy Beaver RFarshadN.)2008 (Given - Provider: Clara Swann R.N.) 021 (Given - Provider: Leny CuevasN.)0841 (Given - Provider: Carol Clemente RFarshadNFarshad) 1,000 mg, oral, Every 6 hours, First dose on Fri08/06/21 at 1400 ceFAZolin in dextrose (iso-osm) IVPB 2 g (ANCEF) (COMPLETED) 161 (New Bag - Provider: Jeanine Jordan RFarshadNFarshad) [...] surgical ceFAZolin injection 2,000 mg (ANCEF) (COMPLETED) 08 (Given - Provider: Maeve Pino RFarshadNFarshad) 2,000 [...] (LOVENOX) 0842 (Given - Provider: Carol Clemente RShahzad) 40 mg, subcutaneous, Daily, First dose on [...] (COMPLET ED) 0848 (Given - Provider: Keaton Valdez, TOP IRONER, MARKETING COORDINATOR) 1,000 mg (1 g), intravenous, at 300 mL/h r, Administer over 20 Minutes, Once, On Fri08/06/21 at 0645, For 1 dose, Intra-Op, Administer in OR upon induction tranexamic acid in NaCl IVPB 1,000 mg (CYKLOKAPRON) (COMPLET ED) 1007 (Given - Provider: Maeve Pino RShahzad) 1,000 mg (1 g), intravenous, at 300 mL/h r, Administer over 20 Minutes, Once, On Fri08/06/21 at 0645, For 1 dose, Intra-Op, Administer in OR just before dropping tourniquet Continuous Medication Order 08/05/2021 08/06/2021 08/07/2021 lactated ringers (CANCELED) 0657 (New Ba g - Provider: Lisbeth Caballero RFarshadNFarshad)0812 (Rate/Dose Verify - Provider: Keaton Valdez, TOP IRONER, MARKETING COORDINATOR)0916 (New Bag - Provider: Maeve Pino RShahzad)1030 (Anesthesia Volume Adjustment - Provider: Maeve Pino R.N.) 20 mL/hr, intravenous, Continuous, Starting on Fri08/06/21 at 06 45 lactated ringers 1230 (New Bag - Prov ider: Jeanine Jordan R.N.)1354 (New Bag - Provider: Kathy Beaver RFarshadNFarshad) 0833 (Stopped - Provider: Carol Clemente RFarshadNFarshad) 50 mL/hr, intravenous, Continuous, Starting on Fri08/06/21 [...] mcg (SUBLIMAZE) (CANCELED) 1053 (Given - Provider: Keke Barney R.N.)1056 (Given - Provider: Leny DomínguezN.)1058 (Given - Provider: Keke Barney R.N.)1100 (Given - Provider: Keke Barney R.N.) 25 mcg, intravenous, Every 2 min PRN, [...] (CANCELED) 1117 (Given - Provider: Keke Barney R.N.) 0.5 mg, intravenous, Every 5 min PRN, [...] 2008 (Given - Provider: Clara Swann R.N.) 25 (Given - Provider: Clara Swann R.N.) 10 mg, oral, Every 4 hours PRN, severe p ain or score 7-10 of 10, Starting on Fri08/06/21 at 0735, Second line therapy. If patient is greater than 7 after 2 hours, call service for new order. oxyCODONE IR tablet 5 mg (ROXICODONE)(Linked Group 1) 2008 (See Alternative - Provider: Clara Swann R.N.) 25 (See Alternative - Provider: Clara Swann R.N.) [...] traMADoL tablet 50 mg (ULTRAM)(Linked Group 2) 1616 (See Alternative - Provider: Jeanine Jordan R.N.) [...] hours).
documented in this encounter Care Teams Senior Drupal Developer Relationship Specialty Start Date End Date Elsewhere, Pcp PCP - General 06/07/19 documented as of this encounter
--- OUTSIDE RECORDS SUMMARY | 2022-01-23 19:37 | XMS_ITS | Encounter Summary ---
:1960 Author Organization [facility] Address [address] [place] [address] Care Team Providers Name Role Phone Elsewhere, Pcp Primary Care Provider Unavailable Reason for Visit Reason Comments [facility] Encounter Details Date Type Department Care Team Description 08/07/2021 Clinical Communication Department of Dk Mijares [facility] Orthopedic Surgery in .[place], [place] [address] [facility] [address] [place] [phone] Social History Tobacco Use Types Packs/Day [...] you attend adventism or Patient refused 2021 samaritan services? 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 Scanned in to chart, and patient will pick it up in [place]. Telephone Encounter - Lucy Forde - 08/07/2021 11:55 AM CDT [facility] paper work submitted to [facility] today, NO [facility]WIN. documented in this encounter Plan of Treatment Upcoming Encounters Date Type Specialty Care Team Description 01/24/2022 Diagnostic Otorhinolaryngology Lara Snell Au.D. [address] [place], [place] [phone] 01/29/2022 Office Visit Orthopedic Surgery Laurie Dumont APRN , C.N.P., D.N.P. [address] [place], [place] [phone] (Wo rk) documented as of this encounter Visit Diagnoses Not on filedocumented in this encounter Care Teams Assembler Musical Equipment Relationship Specialty Start Date End Date Elsewhere, Pcp PCP - General 06/07/19 documented as of this encounter
--- OUTSIDE RECORDS SUMMARY | 2022-01-23 19:37 | XMS_ITS | Encounter Summary ---
:1960 Author Organization [facility] Address [address] [place] [address] Care Team Providers Name Role Phone Elsewhere, Pcp Primary Care Provider Unavailable Reason for Referral Outpatient (Routine) - Closed Specialty Diagnoses / Procedures Referred By Contact Refer red To Contact Diagnoses Primary Osteoarthritis Knee Left Laurie Dumont APRN, [facility] [place] [facility] Procedures ECG 12 Lead C.N.P., D.N.P. [address] [place] [phone] Referral ID Status Reason Start Date Expiration Date Visits Requ ested Visits Authorized [id number] Closed 06/28/2021 06/28/2022 1 1 CAR OPERATOR Reason for Visit Outpatient (Routine) - Closed Specialty Diagnoses / Procedures Referred By Contact Refer red To Contact Diagnoses Primary Osteoarthritis Knee Left Laurie Dumont APRN, [facility] [place] [facility] Procedures ECG 12 Lead C.N.P., D.N.P. [address] [place] [phone] Referral ID Status Reason Start Date Expiration Date Visits Requ ested Visits Authorized [id number] Closed 06/28/2021 06/28/2022 1 1 Encounter Details Date Type Department Care Team Description 07/02/2021 Hospital Encounter Department of Laurie Dumont Osteoarthritis Radiology in Arun Marsh APRN, [place], [place] C.N.P., D.N.P. [address] [phone] Social History Tobacco Use [...] attend latter day or Patient refused 2021 denominational services? 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 lisinopriL Take 20 mg by 0 03/05/2021 (PRINIVIL,ZESTRIL) 20 mg mouth daily. tablet omeprazole (for_PriLOSEC) Take 1 capsule by 0 20 mg capsule mouth daily. acetaminophen (TYLENOL) Take 2 tablets 0 08/08/19 01/03/2022 500 mg tablet (1,000 mg total) by mouth every 6 (six) hours. aspirin 81 mg chewable Chew 1 tablet (81 100 tablet 0 202110/23/2021 tablet mg total) 2 (two) times a day with meals. Recommended to minimize risk of blood clot. Once completed, resume the usual dose of aspirin your primary provider may recommend. GaviLyte-G 236-22.74-6.74 0 03/05/2021 07/17/2021 -5.86 gram [...] 01/24/2022 Diagnostic Otorhinolaryngology Lara Snell Au.D. [address] [facility] [place] [phone] 01/29/2022 Office Visit Orthopedic Surgery Laurie Dumont, ANA , C.N.P., D.N.P. [address] [facility] [address] [place] [phone] (Wo rk) documented as of this encounter Procedures Procedure Name Priority Date/Time Associated Diagnosis Comme nts ECG Routine 07/02/2021 8:36 AM Primary Osteoarthritis Results for this HOT CAR OPERATOR Knee Left procedure are i n the results section. documented in this encounter Results ECG 12 Lead (07/02/2021 8:36 AM HOT CAR OPERATOR) P athologist Signature Ventricular Rate 70 BPM MUSE ECG/Min WI Interval 180 ms MUSE QRSD Interval 98 ms MUSE QT Interval 380 ms MUSE QTC Interval 410 ms MUSE P [place] 32 degrees MUSE R [place] 14 degrees MUSE T Wave [place] 20 degrees MUSE Specimen Anatomical Collection Method Collection Time Receive d Time (Source) Location / / Volume Laterality 07/02/2021 8:36 AM 8:39 HOT CAR OPERATOR AM HOT CAR OPERATOR Impressions MUSE - 07/02/2021 8:39 AM HOT CAR OPERATOR Normal sinus rhythm Normal ECG No previous ECGs available Reviewed by CHECO Echeverria Narrative This result has an attachment that is no t available. Procedure Note Wali Arce Jr., M.D. - 07/02/2021For matting of this note might be different from the original. IMPRESSION: Normal sinus rhythm Normal ECG No previous ECGs available Reviewed by CHECO Echeverria Laurie Dumont APRN, C.N.P., D.N.P. ECG ORDERABLES Performing Organization Address City/State/ZIP Code Phon e Number MUSE MUSE NA documented in this encounter Visit Diagnoses Diagnosis Primary Osteoarthritis Knee Left documented in this encounter Care Teams Loss Prevention Detective Relationship Specialty Start Date End Date Elsewhere, Pcp PCP - General 06/07/19 documented as of this encounter
--- OUTSIDE RECORDS SUMMARY | 2022-01-23 19:37 | XMS_ITS | Encounter Summary ---
:1960 Author Organization [facility] Address [address] [place] [address] Care Team Providers Name Role Phone Elsewhere, Pcp Primary Care Provider Unavailable Encounter Details Date Type Department Care Team Description 08/06/2021 Ancillary Procedure Department of General Surgery Social [...] or relatives? How often do you attend pentecostal or Patient refused 2021 amish services? 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 [address] [facility] [address] [place] [phone] 01/29/2022 Office Visit Orthopedic Surgery Laurie Dumont APRN C.N.PFarshad, D.N.PFarshad [address] [facility] [place], [place] [phone] (Wo rk) documented as of this encounter Procedures Procedure Name Priority Date/Time Associated Diagnosis Comme nts SURGERY IMAGE EXAM Routine 08/06/2021 7:50 AM Res ults for this CDT procedure are i n the results section. documented in this encounter Results Non-Radiology Image-Surgery Image Exam (08/06/2021 7:50 AM CDT) Specimen (Source) Anatomical Collection Method Collection Time Re ceived Time Location / / Volume Laterality 08/06/2021 7:48 AM CDT Narrative [facility] - 08/06/2021 8:26 AM CDT This order has been created [...] on filedocumented in this encounter Care Teams Ground Crew Lines Person Relationship Specialty Start Date End Date Elsewhere, Pcp PCP - General 06/07/19 documented as of this encounter
--- OUTSIDE RECORDS SUMMARY | 2022-01-23 19:37 | XMS_ITS | Encounter Summary ---
:1960 Author Organization [facility] Address [address] [place] [address] Care Team Providers Name Role Phone Elsewhere, Pcp Primary Care Provider Unavailable Encounter Details Date Type Department Care Team Description 07/24/2021 Education Department of Dk Mijares M.D. [address] [place] [address] Primary Osteoarthritis Orthopedic Surgery in Sunni Cason R.N. Knee Left [place], [place] [address] [place] [address] Social History Tobacco Use Types Packs/Day [...] you attend congregational or Patient refused 2021 samaritan services? 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 - 07/24/2021 10:00 AM CST Patient is scheduled for a Left Total Knee Arthroplasty on 08/06/[address] Mijares. Patient attended the Total Joint Class and all material gone over and questions addressed after viewing the [facility] Total Joint video. Therapy portion was discussed. Instructions as to where to go and map provided. Phone number to call the night prior given and instructions discussed. Components discussed and demonstrated. Risks for side effects and complications discussed. Getting ready for surgery discussed as well as what to bring with to surgery, Hibiclens, showering, the use of clean sheets, towels and wash cloths discussed. Medications prior to surgery and what not to take discussed. Plan to change daily activities discussed. Integrative and healing therapy discussed. Plans for recovery discussed. No dental work for 4 weeks prior to surgery discussed. No elective dental work for six months after surgery discussed. Necessity of prophylaxis prior to dental procedures for up to one year after surgery unless immunocompromised in some way, then it is two years discussed. Necessity of a Caregiver after surgery discussed. Changes with work after surgery discussed. Getting home ready in preparation for surgery discussed. What to bring with to your surgery discussed. The day of surgery and what to expect discussed. Analgesia and medications pt will be sent home with discussed. Coughing, deep b reathing and circulation aids discussed. Polar ice machine discussed. Traveling after surgery and prevention of blood clots discussed. Diet and foods high in fiber discussed. Managing your pain discussed. Incision care and prevention of infection discussed. Bathing status post surgery discussed. Woundvac vs bandage discussed and time length discussed. When to get emergency medical care discussed. Signs and symptoms of a possible infection discussed. Pharmacy portion viewed. Follow up appt discussed. Patient was voiced understanding, and will call with any other questions or concerns. Patient was given the following education and pamphlets in their surgical packet: - Total Knee Replacement Surgery [id number] - Home Safety Tips [id number] - Bathroom Safety Equipment [id number] - Rehabilitation after Knee Replacement [id number] - Prior to Surgery Medication List [id number] - Important Information About Opioid Medication [id number] - Speak Up: Antibiotics [id number] - Acute Pain and the Healing Process [id number] - Total Joint Arthroplasty Discharge Planning [id number] - Intentional Rounding [id number] - Reducing Your Risk of Surgical Infection [id number] with Hibiclens Soap (2 Packets) - Surgical Site Infection: Reducing you Risk [id number] - Billing Question Card [id number] - [facility] Financial Clearance Business Card - Transportation Sheet Patient was given and discussed the following education & pamphlets. Patient voiced understanding and stated they will call with any other questions or concerns: - Authorization to Disclose Protected Health Information to Family and Friends [id number] - SEMN Checklist for Surgical Paitients [id number] - Discharge Planning [id number] OPEDIC MECHANIC documented in this encounter Plan of Treatment Upcoming Encounters Date Type Specialty Care Team Description 01/24/2022 Diagnostic Otorhinolaryngology Lara Snell Au.D. [address] [place], [place] [address] 01/29/2022 Office Visit Orthopedic Surgery Laurie Dumont APRN , C.N.P., D.N.P. [address] [place], [place] [phone] (Wo rk) documented as of this encounter Visit Diagnoses Diagnosis Primary Osteoarthritis Knee Left documented in this encounter Care Teams Tray Setter Relationship Specialty Start Date End Date Elsewhere, Pcp PCP - General 06/07/19 documented as of this encounter
--- OUTSIDE RECORDS SUMMARY | 2022-01-23 19:37 | XMS_ITS | Encounter Summary ---
:1960 Author Organization [facility] Address [address] [place] [address] Care Team Providers Name Role Phone Elsewhere, Pcp Primary Care Provider Unavailable Reason for Referral MRI/CAT/PET Scan (Routine) - Closed Specialty Diagnoses / Procedures Referred By Contact Refer red To Contact Radiology Diagnoses Primary Osteoarthritis Knee Left Dk Mijares M.D. [facility] [place] [facility] Procedures CT Knee Left without IV Contrast [address] [facility] [place] [address] Referral ID Status Reason Start Date Expiration Date Visits Requ ested Visits Authorized [id number] Closed 07/02/2021 08/01/2021 1 1 Y Reason for Visit MRI/CAT/PET Scan (Routine) - Closed Specialty Diagnoses / Procedures Referred By Contact Refer red To Contact Radiology Diagnoses Primary Osteoarthritis Knee Left [facility] [place] [facility] Knee Left without IV Contrast [address] [place] [facility] [place] [address] Referral ID Status Reason Start Date Expiration Date Visits Requ ested Visits Authorized [id number] Closed 07/02/2021 08/01/2021 1 1 Encounter Details Date Type Department Care Team Description 07/02/2021 Hospital Encounter Department of Dk Mijares Osteoarthritis Radiology in Yuki Bui M.D. Knee Left [place], [place] [address] [facility] [address] [address] [address] [place] [facility] [address] [place] [phone] [address] (Work) [phone] Social History Tobacco Use Types Packs/Day Years [...] or relatives? How often do you attend yarsani or Patient refused 2021 muslim services? Do you belong to any clubs or No 12/20/2021 organizations such as yarsani groups, unions, fraRethinkDB or athletic groups, or school groups? How [...] at Date Recorded Male 06/23/2021 7:46 PM BOOKY documented as of this encounter Medications at [...] 01/24/2022 Diagnostic Otorhinolaryngology Lara Snell Au.D. [address] [facility], [place] [address] 01/29/2022 Office Visit Orthopedic Surgery Laurie Dumont APRN , C.N.P., D.N.P. [address] [facility], [place] [phone] (Wo rk) documented as of this encounter Procedures Procedure Name Priority Date/Time Associated Diagnosis Comme nts CT KNEE LEFT RAD - Routine 07/02/2021 8:44 Primary Results for WITHOUT IV (most inpatients AM BOOKY Osteoarthritis Knee this procedure CONTRAST and all Left are in the outpatients) results section. documented in this encounter Results CT Knee Left without IV Contrast (07/02/2021 8:44 AM BOOKY) Anatomical Region Laterality Modality Lower Extremity, Knee, Musculoskeletal RST LOS, Left Computed Tomography Musculoskeletal ARZ LOS, Muskuloskeletal FLA LOS Specimen (Source) Anatomical Collection Method Collection Time Re ceived Time Location / / Volume Laterality 07/02/2021 8:56 AM BOOKY Impressions 07/02/2021 9:00 AM BOOKY Degenerative change. Narrative 07/02/2021 9:00 AM BOOKY EXAM: ??CT KNEE LEFT WITHOUT IV CONTRAST [...] Left documented in this encounter Care Teams Clerical Assigner Relationship Specialty Start Date End Date Elsewhere, Pcp PCP - General 06/07/19 documented as of this encounter
--- OUTSIDE RECORDS SUMMARY | 2022-01-23 19:37 | XMS_ITS | Encounter Summary ---
:1960 Author Organization [facility] Address [address] [place] [address] Care Team Providers Name Role Phone Elsewhere, Pcp Primary Care Provider Unavailable Reason for Visit Reason Comments Nocturia Recent total knee Dr Mijares Encounter Details Date Type Department Care Team Description 08/08/2021 Clinical Communication Department of Dk Mijares (Recent Orthopedic Surgery Adrian Bui total knee Dr in [place], [facility]) [address] [address] [place], [place] [phone] [address] (Work) [phone] Social History Tobacco Use Types Packs/Day Years [...] or relatives? How often do you attend episcopal or Patient refused 2021 congregational services? 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 - 08/21/2021 1:59 PM CDT Patient has been in contact with his primary care regarding increased urinating at night. Telephone Encounter - Dian Damon L.P.N. - 08/08/2021 9:19 AM CDT Patient called orthopedics today stating he is having frequent night time urination, no pain with urination, patient states his urine is clear, had recent total knee replacement with Dr Mijares, patientwas told to contact Chica Rodriguez RN SLIDE ATTENDANT, in [place] for recommendations. Dr Mijares team notified. documented in this encounter Plan of Treatment Upcoming Encounters Date Type Specialty Care Team Description 01/24/2022 Diagnostic Otorhinolaryngology Lara Snell Au.D. [address] [place], [place] [phone] 01/29/2022 Office Visit Orthopedic Surgery Laurie Dumont, ANA , C.N.P., D.N.P. [address] [facility], [place] [phone] (Wo rk) documented as of this encounter Visit Diagnoses Not on filedocumented in this encounter Care Teams Vest Tailor Relationship Specialty Start Date End Date Elsewhere, Pcp PCP - General 06/07/19 documented as of this encounter
--- OUTSIDE RECORDS SUMMARY | 2022-01-23 19:37 | XMS_ITS | Encounter Summary ---
:1960 Author Organization [facility] Address [address] [place] [address] Care Team Providers Name Role Phone Elsewhere, Pcp Primary Care Provider Unavailable Reason for Visit Reason Comments Paperwork [employer] Encounter Details Date Type Department Care Team Description 06/29/2021 Clinical Communication Department of Dk Mijares Orthopedic Surgery Adrian Bui ([employer]) in [address] [address] [place], [place] [phone] [address] (Work) [phone] Social History Tobacco Use Types Packs/Day Years [...] you attend alevism or Patient refused 2021 protestant services? 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 Requesting notes fromoffice visit on 06/28/21, workability and date/time next office visit. Dictation not completed yet. DIPPER Telephone Encounter - Dian Correa - 06/29/2021 3:03 PM ACID DIPPER Returned call to [employer], informed them that dictation has not been completed yet. Fax number given for paperwork to be sent to our office. DIPPER Telephone Encounter - Natalie Moses RFarshadNFarshad - 06/29/2021 2:51 PM ACID DIPPER Routing message to Lucy Forde and Dian Ceron for review and update. DIPPER Telephone Encounter - Keyana Santoyo - 06/29/2021 2:22 PM CST Reason for Communication: Visit notes & work status Current Can Nursing/Provider leave a detailed message?: No Did the patient refuse triage through Nurse line? (for symptom based concerns): N/A Action Needed: [employer] company calling today, asking for visit notes from Jun 28 and what patient's current work status is. Asking that we please call them back at [phone],patient claim number [id number]. Thanks DIPPER documented in this encounter Plan of Treatment Upcoming Encounters Date Type Specialty Care Team Description 01/24/2022 Diagnostic Otorhinolaryngology Lara Snell Au.D. [address] [place], [place] [address] 01/29/2022 Office Visit Orthopedic Surgery Laurie Dumont, ANA , C.N.P., D.N.P. [address] [place], [place] [phone] (Wo rk) documented as of this encounter Visit Diagnoses Not on filedocumented in this encounter Care Teams Telemarketer Relationship Specialty Start Date End Date Elsewhere, Pcp PCP - General 06/07/19 documented as of this encounter
--- OUTSIDE RECORDS SUMMARY | 2022-01-23 19:37 | XMS_ITS | Encounter Summary ---
:1960 Author Organization [facility] Address [address] [place] [address] Care Team Providers Name Role Phone Elsewhere, Pcp Primary Care Provider Unavailable Reason for Referral Physical Therapy (Routine) - Authorized Specialty Diagnoses / Procedures Referred By Contact Refer red To Contact Diagnoses Primary Osteoarthritis Knee Left Dk Mijares M.D. [facility] [place] [facility] Procedures PT Ongoing treatment [address] [place] [address] Referral ID Status Reason Start Date Expiration Date Visits V isits Requested Authorized [id number] Authorized 08/10/2021 05/18/2022 40 40 Reason for Visit Physical Therapy (Routine) - Pending Review Specialty Diagnoses / Procedures Referred By Contact Refer red To Contact Diagnoses Primary Osteoarthritis Knee Left Dk Mijares M.D. [facility] Procedures PT Evaluate and treat [address] [place] [address] Referral ID Status Reason Start Date Expiration Date Visits V isits Requested Authorized [id number] Pending 06/28/2021 06/28/2022 1 1 Review Encounter Details Date Type Department Care Team Description 08/10/2021 Comprehensive Visit Department of Naman Mijares M.D. [address] [place] [phone] Primary Rehabilitation Dian Morgan P.TFarshad [address] [address] Osteoarthritis Knee Services in [address] [phone] Social History Tobacco Use Types Packs/Day Years [...] you attend zoroastrianism or Patient refused 2021 anabaptism services? 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 - 08/10/2021 2:00 PM CDT Consults Physical Therapy Outpatient Evaluation/Treatment By co-signing this note, the provider certifies the therapy being provided to this patient is reasonable and necessary for the diagnosis or treatment of this patient. SUBJECTIVE Patient's Name: Hussein Whittaker Referring Provider: Dk Mijares M.D. Visit Diagnosis: 1. Primary Osteoarthritis Knee Left Payor: [employer] / Plan: [employer] / Product Type: Indemnity / Solvate Visit Count: 1 PERTINENT MEDICAL / SURGICAL HISTORY: Patient Active [...] Procedure: COLONOSCOPY; Surgeon: Kavon Espino M.D.; Location: [facility] OR ??? KNEE JOINT OPERATION Left 07/20/2013 Arthroscopy of knee with medial meniscectomy. partial medial meniscectomy left knee ??? MOHS SURGERY ??? ORIF WRIST FRACTURE Left 1994 open reduction and internal fixation of left wrist fracture ??? OTHER CONVERTED SHX (SEE COMMENT) N/A 11/25/2006 >Mohs Micrographic Surgery With Transposition Flap Closure. ??? OTHER SURGICAL HISTORY N/A 1988 Repair of rectal fistula ??? ROBOTIC-ASSISTED KNEE TOTAL ARTORHOPLASTY Left 08/06/2021 Procedure: BARBER ROBOTIC-ASSISTED KNEE TOTAL ARTHROPLASTY; Surgeon: Dk Mijares M.D.; Location: [facility] OR Hussein Cartagena Panfilo is a 60 y.o. male who presents to outpatient physical therapy for evaluation. His symptoms consist of: 1. Left knee pain Overall he reports his status is improving . History of Present Illness: patient is status post left total knee arthroplasty performed on 08/06/2021 Dr. Mijares. Patient is at home and is doing well family assistance. Aggravating Factors: Movement and activity Relieving Factors: Rest, pain pills and icing. Previous Treatments: Surgery Prior Function/Occupational Profile: Chronic left knee pain. Patient goals: resolve pain return to previous level of function. Contact monitoring: PPE used during therapy: Therapist was wearing the following PPE throughout entire session: surgicalmask Patient was wearing a mask during therapy session: yes Additional Staff Present During Session: no OBJECTIVE PHYSICAL EXAM Pain: 0-7/10 Ortho Exam Patient ambulates into PT safely independently with use of a front wheel walker. Patient does have an antalgic gait pattern. Observation of patient's knee shows surgical dressing intact. No signs of infection noted. Moderate swelling. Homans test negative. Left knee range of motion is lacking 5?? of knee extension to 75?? of knee flexion. Normal patellar mobilization. Independent quad set. Patient is unable to perform an independent straight leg raise. EATMENT Treatment today consisted of: Passive range of motion for knee flexion in a seated position. Performed patellar mobilizations. Performed quad sets times 10 repetitions and attempted straight leg raises. Performed prolonged knee extension stretch 2 times 30 seconds. Home Exercise Program/Education: TKA pathway. Assessment Clinical Impression: Mr. Whittaker presents to physical therapy with signs and symptoms consistent with TKA. Impairments: Pain, swelling, range of motion and strength. Functional deficits: Decreased positional and activity tolerance and abnormal gait. Rehab Potential: Mr. Whittaker has good potential to achieve established physical therapy goals within the time frame outlined below, provided he actively participates in his physical therapy treatment plan and home program. Functional Goals and Timeframes: PT Outpatient Goals PT Goal #1: Patient will demonstrate knee range of motion 0-120 degrees left lower extremity. PT Goal #1 Date: 09/21/21 PT Goal #2: Patient will demonstrate independent straight leg raise times 10 repetitions without extension lag. PT Goal #2 Date: 09/21/21 PT Goal #3: Patient will ambulate safely independently without the use an assistive device with a nonantalgic gait pattern. PT Goal #3 Date: 09/21/21 PT Goal #4: Patient will negotiate a flight of steps with reciprocal gait pattern and use of a single hand rail without compensation. PT Goal #4 Date: 09/21/21 Plan Mr. Whittaker was educated regarding evaluative findings, diagnosis, prognosis, potential risks and benefits of rehabilitation interventions. A collaborative effort was used to establish goals and plan ofcare. He was informed of his right to make decisions regarding his care, including refusal of examination or treatment or selection of services from another provider if desired. The treatment plan may be progressed or modified based upon his response to treatment. Treatment Plan: Start of Plan of Care: 08/10/2021 Number of Visits: 12 visits PT Duration: 6 weeks PT Frequency: 2 times per week Treatment interventions may include: Patient education, home exercise program, range of motion stretching and strengthening. Gait balance training will also be performed along with stair training. Plan for next session: Range of motion and quad strengthening. Time Spent with Patient PT Eval - Low Complexity: 39 min Time Calculation Total Treatment Time (min): 39 min documented in this encounter Miscellaneous Notes Addendum Note - Dian Morgan P.T. - 08/10/2021 2:00 PM CDT Addended by: DIAN MORGAN on: 08/10/2021 03:38 PM Modules accepted: Orders documented in this encounter Plan of Treatment Upcoming Encounters Date Type Specialty Care Team Description 01/24/2022 Diagnostic Otorhinolaryngology Lara Snell Au.D. [address] [place], [place] [phone] 01/29/2022 Office Visit Orthopedic Surgery Laurie Dumont APRN , C.N.P., D.N.P. [address] [place], [place] [phone] (Wo rk) documented as of this encounter Visit Diagnoses Diagnosis Primary Osteoarthritis Knee Left documented in this encounter Care Teams Phys Assistant Relationship Specialty Start Date End Date Elsewhere, Pcp PCP - General 06/07/19 documented as of this encounter
--- OUTSIDE RECORDS SUMMARY | 2022-01-23 19:38 | XMS_ITS | Encounter Summary ---
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 Do you belong to any clubs [...] slept in a senior living (including now)? 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 - 01/23/2021 3:45 PM CDT Here for a DOT exam for Mirza Equipment. Hearing, vision, and ua completed. See scanned results. Sandra Sanches M.D., M.P.H. - 01/23/2021 3:45 PM CDT Air Control Electronics Operator Medical Examination SUBJECTIVE Hussein Whittaker is a 60 y.o. 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 The patient reports problems - GERD on meds. The following portions of the patient's history were reviewed and updated as appropriate: allergies,current medications, family history, medical history, social history, surgical history and problem list. CURRENT MEDICATIONS Reviewed and as reported in the [employer] paperwork completed 01/23/2021 REVIEW OF SYSTEMS Pertinent items are noted in HPI. A comprehensive 10+ review of systems was negative except for: None. All other systems reviewed and are negative. 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 Color vision is normal. [...] LABS: Lab Results Component Value Date SPECGRAV >=1.030 01/23/2021 GLUCOSEU Negative 01/23/2021 ASSESSMENT / PLAN ASSESSMENT: DOT Exam I have review the health history, physical exam, dipstick urinalysis and Titmus. Examination Results: Meets standards, but periodic monitoring required due to Elevated BP. Mac Artist qualified only for 1 year. Restrictions and Variances: none applicable Medical examiners certificate completed and printed. Return as needed. Department of Transportation Education Provided. The entire written history and physical is scanned into the electronic medical record. documented in this encounter Plan of Treatment Upcoming Encounters Date Type Specialty Care Team Description 01/24/2022 Diagnostic Otorhinolaryngology Lara Snell Au.D. [address], [place] [phone] 01/29/2022 Office Visit Orthopedic Surgery Laurie Dumont APRN , C.N.PFarshad, D.N.P. [address] [facility] [place], [place] [phone] (Wo rk) documented as of this encounter Procedures Procedure Name Priority Date/Time Associated Diagnosis Comme nts URINALYSIS, Routine 01/23/2021 3:06 PM Results f or this DIPSTICK CDT procedure are i n the results section. documented in this encounter Results (ABNORMAL) Urinalysis, Dipstick (01/23/2021 3:06 PM CDT) athologist Signature Source VOID 01/23/2021 3:06 RWOM PM CDT Clarity Clear Clear 01/23/2021 3:06 RWOM PM CDT Color Yellow 01/23/2021 3:06 RWOM PM CDT Comment: ----REFERENCE VALUE---- Colorless Yellow Yovana Blood Moderate (A) Negative 01/23/2021 3:06 PM CDT RWOM Nitrite Negative Negative 01/23/2021 3:06 PM CDT RWOM Leukocyte Esterase Trace (A) Negative 01/23/2021 3:06 PM CD T RWOM Protein 30 (A) mg/dL 01/23/2021 3:06 PM CDT RWOM Comment: ----REFERENCE VALUE---- Negative Trace Glucose Negative Negative mg/dL 01/23/2021 3:06 PM CDT RW OM Ketones, QI(U) Negative Negative mg/dL 01/23/2021 3:06 PM C DT RWOM Bilirubin Small (A) Negative 01/23/2021 3:06 PM CDT RWOM pH 5.0 5.0 - 8.0 01/23/2021 3:06 PM CDT RWOM Specific Springs >=1.030 1.001 - 1.035 01/23/2021 3:06 PM CDT RW Urobilinogen 0.2 0.2 - 1.0 mg/dL 01/23/2021 3:06 PM CD T RW Specimen Anatomical Collection Method Collection Time Receive d Time (Source) Location / / Volume Laterality Urine 01/23/2021 3:06 PM 3:13 CDT PM CDT Generic Rals LAB URINE ORDERABLES Performing Organization Address City/State/[facility] Code Phon e Number [facility] [address] [place] [address] [place] [address] Occupational Medicine [address] documented in this encounter Visit Diagnoses Diagnosis Department Of Transportation Examination Department Of Motor Vehicles - Primary documented in this encounter Care Teams Corporate Paralegal Relationship Specialty Start Date End Date Elsewhere, Pcp PCP - General 06/07/19 documented as of this encounter
--- OUTSIDE RECORDS SUMMARY | 2022-01-23 19:38 | XMS_ITS | Encounter Summary ---
:1960 Author Organization [facility] Address [address] [place] [address] Care Team Providers Name Role Phone Beth Valderrama P.A.-C. Primary Care Provider Encounter Details Date Type Department Care Team Description 04/26/2019 Clinical Department of David, Clara, Communication [facility] [address] [place], [place] [phone] Social History Tobacco Use Types Packs/Day Years [...] you attend jew or Patient refused 2021 mosque services? Do [...] or slept in a intermediate (including now)? 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 Left details in note line off appointment order ATING ROOM TECHNOLOGIST Telephone Encounter - Vero Tee - 04/26/2019 4:18 PM CST Reason for Communication: Follow up appointment Current Can Nursing/Provider leave a detailed message: Did the patient refuse triage through Nurse line? (for symptom based concerns): NA Action Needed: Patient called to cancel his appointment with Clara on 04/27. He said Clara told him he was in [facility] on Tuesdays so that is why he scheduled for Friday. He will be unable to make it to that appointment. He was offered other times for [place] but stated he could not make thosework. He leaves for [place] on 05/04, so the openings in [facility] on 05/06 will not work for him. He returns 05/15 and there were no appointments in [facility] after the until 05/[address] Renee in [facility]. He would like Clara to know that this is why he cancelled his appointment and wants to know what she would recommend he does for follow up. I did not schedule the follow up appoint ment initially, so I am unsure of the details of that conversation and if it was made clear to him or not that the appointment would be for [place]. Name of Medication (if relevant): ATING ROOM TECHNOLOGIST documented in this encounter Plan of Treatment Upcoming Encounters Date Type Specialty Care Team Description 01/24/2022 Diagnostic Otorhinolaryngology Lara Snell Au.D. 701 [facility], [place] [phone] 01/29/2022 Office Visit Orthopedic Surgery Laurie Dumont APRN C.N.P., D.N.P. [address] [facility], [place] [phone] (Wo rk) documented as of this encounter Visit Diagnoses Not on filedocumented in this encounter Care Teams Health And Wellness Coach Relationship Specialty Start Date End Date Beth Valderrama P.A.-C. PCP - General Family Medicine 09/15/17 06/06/19 documented as of this encounter
--- OUTSIDE RECORDS SUMMARY | 2022-01-23 19:38 | XMS_ITS | Encounter Summary ---
:1960 Author Organization [facility] Address [address] [place] [address] Care Team Providers Name Role Phone Elsewhere, Pcp Primary Care Provider Unavailable Encounter Details Date Type Department Care Team Description 03/29/2021 Orders Only [facility] PCP [facility] Sa isadora Abraham M.D. [address] [place], [place] [phone] (Wo rk) Social History Tobacco Use Types [...] or relatives? How often do you attend taoist or Patient refused 2021 confucianist services? Do you belong to any clubs or No 12/20/2021 organizations such as taoist groups, unions, fraternal or athletic groups, or [...] slept in a senior care (including now)? 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 [address] [place], [place] [phone] 01/29/2022 Office Visit Orthopedic Surgery Laurie Dumont, ANA , C.N.P., D.N.P. [address] [place], [place] [phone] (Wo rk) documented as of this encounter Visit Diagnoses Not on filedocumented in this encounter Care Teams Forest Firefighter Relationship Specialty Start Date End Date Elsewhere, Pcp PCP - General 06/07/19 documented as of this encounter
--- OUTSIDE RECORDS SUMMARY | 2022-01-23 19:38 | XMS_ITS | Encounter Summary ---
:1960 Author Organization [facility] Address [address] [place] [address] Care Team Providers Name Role Phone Soren Shea APRN, C.N.P. Primary Care Provider [phone] Encounter Details Date Type Department Care Team Description 03/18/2017 Orders Only Department of Family Soren Shea Scr eening Examination Diabetes Mellitus; Medicine, Yuki Bui APRN, C.N.P. General Medical Examination Adult Clinic, in [phone] [phone] [place], [place] (Work) [address] [phone] Social History Tobacco Use Types Packs/Day Years Used Date Smoking Tobacco: Former Alcohol Habits Answer Date Recorded How often [...] you attend presybeterian or Patient refused 2021 yazidism services? Do you belong to any clubs or No 12/20/2021 organizations such as presybeterian groups, unions, fraternal or athletic groups, or [...] or slept in a usp (including now)? 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 [address] [place], [place] [phone] 01/29/2022 Office Visit Orthopedic Surgery Laurie Dumont APRN , C.N.P., D.N.P. [address] [place], [place] [phone] (Wo rk) documented as of this encounter Visit Diagnoses Diagnosis Screening Examination Diabetes Mellitus General Medical Examination Adult documented in this encounter Care Teams Dye Colorist Formulator Relationship Specialty Start Date End Date Soren Shea APRN, C.N.P. PCP - General 10/31/16 09/14/17 documented as of this encounter
--- OUTSIDE RECORDS SUMMARY | 2022-01-23 19:38 | XMS_ITS | Encounter Summary ---
:1960 Author Organization [facility] Address [address] [place] [address] Care Team Providers Name Role Phone Beth Valderrama P.A.-C. 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 [address] [place] [address] [facility] Examination Department [address] [facility] Of Motor Vehicles [place], [place] (Primary Dx) [phone] Social History Tobacco Use [...] or relatives? How often do you attend jainism or Patient refused 2021 taoist services? Do you belong to any clubs or No 12/20/2021 organizations such as jainism groups, unions, fraternal or athletic groups, or [...] or slept in a retirement (including now)? 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 - 01/27/2019 3:45 PM CDT Here for a DOT exam. Hearing, vision and ua completed. See scanned results. Sandra Sanches M.D., M.P.H. - 01/27/2019 3:45 PM CDT Jazz Musician Medical Examination Subjective: Hussein Whittaker is a 58 y.o. 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 The patient reports problems - GERD on Omeprazole. The following portions of the patient's history were reviewed and updated as appropriate: allergies,current medications, family history, medical history, social history, surgical history and problem list. Medications: Reviewed and as reported in the CSA paperwork completed 01/27/2019 Review of Systems Pertinent items are noted in HPI. A comprehensive 10+ review of systems was negative except for: none. All other systems reviewed and are negative. Objective: Vitals: 01/27/19 1514 BP: 134/76 Pulse: 76 Resp: 16 Vision & Hearing: Applicant can recognize and distinguish among traffic control signals and devices showing standard red, green, and yovana colors. Monocular Vision?: No Physical Exam: General Appearance: Alert, oriented, healthy-appearing and in no distress. Skin: No suspicious rashes or lesions Head: Normocephalic. Atraumatic. Eyes: Pupils are equally round and reactive to light. Extraocular movements are intact. 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 Color vision is normal. Field of [...] for inguinal herniation. Lymph Nodes: No lymphadenopathy. Labs: Lab Results Component Value Date SPECGRAV >=1.030 01/27/2019 GLUCOSEU Negative 01/27/2019 Assessment: DOT Exam I have review the health history, physical exam, dipstick urinalysis and Titmus. Healthy male exam. Meets standards in 49 CFR 391.41; qualifies for 2 year certificate. Plan: Medical examiners certificate completed and printed. Return as needed. Department of Transportation Education Provided. The entire written history and physical is scanned into the electronic medical record. documented in this encounter Plan of Treatment Upcoming Encounters Date Type Specialty Care Team Description 01/24/2022 Diagnostic Otorhinolaryngology Lara Snell Au.D. 701 [facility] [place], [place] [phone] 01/29/2022 Office Visit Orthopedic Surgery Laurie Dumont APRN , C.N.P., D.N.P. 700 [facility], [place] [phone] (Wo rk) documented as of this encounter Procedures Procedure Name Priority Date/Time Associated Diagnosis Comme nts URINALYSIS, Routine 01/27/2019 3:03 PM Results f or this DIPSTICK CDT procedure are i n the results section. documented in this encounter Results (ABNORMAL) Urinalysis, Dipstick (01/27/2019 3:03 PM CDT) athologist Signature Source VOID 01/27/2019 3:03 PM CDT Clarity Clear Clear 01/27/2019 3:03 PM CDT Color Yellow 01/27/2019 3:03 PM CDT Comment: ----REFERENCE VALUE---- Colorless Yellow Yovana Blood Moderate (A) Negative 01/27/2019 3:03 PM CDT Nitrite Negative Negative 01/27/2019 3:03 PM CDT Leukocyte Esterase Negative Negative 01/27/2019 3:03 PM CD T Protein Negative mg/dL 01/27/2019 3:03 PM CDT Comment: ----REFERENCE VALUE---- Negative Trace Glucose Negative Negative mg/dL 01/27/2019 3:03 PM CDT Ketones, QI(U) Negative Negative mg/dL 01/27/2019 3:03 PM C DT Bilirubin Negative Negative 01/27/2019 3:03 PM CDT pH 5.5 5.0 - 8.0 01/27/2019 3:03 PM CDT Specific Springer >=1.030 1.001 - 1.035 01/27/2019 3:03 PM CDT Urobilinogen 0.2 0.2 - 1.0 mg/dL 01/27/2019 3:03 PM CD T Specimen Anatomical Collection Method Collection Time Receive d Time (Source) Location / / Volume Laterality Urine 01/27/2019 3:03 PM 9 3:07 CDT PM CDT Generic Rals LAB URINE ORDERABLES Performing Organization Address City/State/ZIP Code Phon e Number [facility] [address] [facility] [place] [address] documented in this encounter Visit Diagnoses Diagnosis Department Of Transportation Examination Department Of Motor Vehicles - Primary documented in this encounter Care Teams Ict Help Desk Officer Relationship Specialty Start Date End Date Beth Valderrama P.A.-C. PCP - General Family Medicine 09/15/17 06/06/19 documented as of this encounter
--- OUTSIDE RECORDS SUMMARY | 2022-01-23 19:38 | XMS_ITS | Encounter Summary ---
:1960 Author Organization [facility] Address [address] [place] [address] Care Team Providers Name Role Phone Beth Valderrama P.A.-C. Primary Care Provider Encounter Details Date Type Department Care Team Description 02/25/2018 Clinical Communication Department of Maximo [facility], Kaushik Acosta [facility], [id number] [place] [address] [phone] [address] (Work) [phone] Social History Tobacco Use Types Packs/Day Years [...] you attend confucianism or Patient refused 2021 taoism services? Do you belong to any clubs or No 12/20/2021 organizations such as confucianism groups, unions, fraternal or athletic groups, or [...] or slept in a alf (including now)? 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 [address] [place], [place] [phone] 01/29/2022 Office Visit Orthopedic Surgery Laurie Dumont, ANA , C.N.P., D.N.P. [address] [place], [place] [phone] (Wo rk) documented as of this encounter Visit Diagnoses Not on filedocumented in this encounter Care Teams Firer Bisque Kiln Relationship Specialty Start Date End Date Beth Valderrama PHeike. PCP - General Family Medicine 09/15/17 06/06/19 documented as of this encounter
--- OUTSIDE RECORDS SUMMARY | 2022-01-23 19:38 | XMS_ITS | Encounter Summary ---
:1960 Author Organization [facility] Address [address] [place] [address] Care Team Providers Name Role Phone Elsewhere, Pcp Primary Care Provider Unavailable Reason for Visit Reason Comments Endoscopy referral Encounter Details Date Type Department Care Team Description 04/03/2021 Clinical Communication Department of Maria Luisa Shin General Surgery in R, R.N. (referral) [address] [facility] [address] [place], [place] [phone] [address] (Work) [phone] Social History Tobacco Use Types Packs/Day Years [...] you attend druze or Patient refused 2021 restorationist services? Do you belong to any clubs [...] or slept in a half-way (including now)? 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 - 04/03/2021 1:20 PM CST DUPLICATE ENTRY FOR REFERRAL PAY REPRESENTATIVE documented in this encounter Plan of Treatment Upcoming Encounters Date Type Specialty Care Team Description 01/24/2022 Diagnostic Otorhinolaryngology Lara Snell Au.D. [address] [place], [place] [phone] 01/29/2022 Office Visit Orthopedic Surgery Laurie Dumont APRN , C.N.P., D.N.P. [address] [place], [place] [phone] (Wo rk) documented as of this encounter Visit Diagnoses Not on filedocumented in this encounter Care Teams Prawn Trawler Hand Relationship Specialty Start Date End Date Elsewhere, Pcp PCP - General 06/07/19 documented as of this encounter
--- OUTSIDE RECORDS SUMMARY | 2022-01-23 19:38 | XMS_ITS | Encounter Summary ---
:1960 [facility] Address [address] [place] [address] Care Team Providers Name Role Phone Elsewhere, Pcp Primary Care Provider Unavailable Reason for Referral Outpatient (Routine) - Closed Specialty Diagnoses / Procedures Referred By Contact Refer red To Contact Family Medicine Diagnoses Screening Cancer Colon Delvin Booker M.D. [facility] Region [address] [place] [address] Referral ID Status Reason Start Date Expiration Date Visits Requ ested Visits Authorized [id number] Closed 03/30/2021 03/30/2022 1 1 WABLE ENERGY DIVISION MANAGER Reason for Visit Reason Comments colonoscopy scheduled Encounter Details Date Type Department Care Team Description 03/30/2021 Clinical Department of Dian Welch colonoscop y Communication General Surgery in L, R.N. scheduled [place], [address] [place] [phone] Social History Tobacco Use Types Packs/Day Years [...] you attend jainism or Patient refused 2021 adventist services? Do you belong to any clubs [...] at Date Recorded Male 06/23/2021 7:46 PM RENEWABLE ENERGY DIVISION MANAGER documented as of this encounter Miscellaneous Notes Telephone Encounter - Maddie Trivedi R.N. - 04/09/2021 3:20 PM CST Please contact the patient to schedule his pre-op physical prior to 04/18/21. If he is not able to complete his pre-op physical prior to his colonoscopy. The colonoscopy will have to be rescheduled to alater date when a pre-op physical can be completed prior. Thank you. WABLE ENERGY DIVISION MANAGER Telephone Encounter - Dian Welch R.N. - 03/30/2021 2:54 PM RENEWABLE ENERGY DIVISION MANAGER Procedure: Upper Endoscopy with Brock: If yes, proton pump inhibitor needs to be held for 5 days prior to scope Colonoscopy Indication for procedure: screening Date: 04-18-21 Location: [facility] Surgeon: Dr. Booker PCP: ESTELLE, PCP (home) [phone] (mobile) Comments: COVID-19 swab Date/Status: ordered Inpatient or Outpatient: Outpatient Prep: MiraLax Extended prep needed? No History of Chronic Constipation or Incomplete bowel prep? No If yes, contact ordering provider Was prep sent to the pharmacy? Has he received the prep? yes yes BMI or last known BMI BMI <45 can schedule CF, LC, and AL BMI<50 for AU and RW, if BMI 50-55 need anesthesia approval BMI >55 refer to [place] Height: Height: 181 cm (01/23/2021 3:11 PM) Actual Weight: Weight: 116 kg (01/23/2021 3:11 PM) Estimated Weight: No data recorded BMI: Estimated body mass index is 35.38 kg/m?? as calculated from the following: Height as of 01/23/21: 181 cm. Weight as of 01/23/21: 116 kg. Diabetic notype of diabetic medication: n/a Educated per [facility] Patient Education: Diabetes Medication Instructions: Tests, Procedures, andSurgeries that require Fasting Anticoagulation: - Aspirin - Warfarin (Coumadin) - Apixiban (Eliquis) - Dabagatran etexilate (Pradaxa) - Rivaroxaban (Xarelto) - Enoxaparin (Lovenox) - Fondaparinux (Arixtra) - Clopidogrel (Plavix) - Ticagrelor (Brillinta) - Prasugrel (Effient) No Routed to managing team: N/A Implanted Cardiac Device Interrogation date needs to be within 6 months no If yes, only okay to schedule in [facility] Last date interrogated: N/A (if no, route to pcp) Do you take daily prescription pain medication? no Difficulties laying flat no ASHLEIGH needed? -Oxygen dependent -Coronary Artery disease -CHF with EF <40% -Uncontrolled DM with HgA1C >8 -Renal disease, on hemodialysis -BMI greater than 50 -Surgery in last 2 months -Chronic Opioid use/chronic pain, AL only -pyscho/social issues, AL only if yes to any above, order preop physical for all sites yes Arrival Time: Patient informed of Televox yes Reviewed booklet with patient including prep, procedural expectations, NPO instructions, medication instructions, arrival time and that they need a logging truck driver: yes Patient verbalizes understanding of education provided and number to call if questions arise: [facility] End[facility] [phone] yes Additional Comments: N/A If patient is concerned he is not empting pre-procedural, please call the listed number, based on location, the morning of. [phone] [place] [facility] [phone] [facility] [phone] [facility] [phone] [place] [facility] [phone] [facility] WABLE ENERGY DIVISION MANAGER documented in this encounter Plan of Treatment Upcoming Encounters Date Type Specialty Care Team Description 01/24/2022 Diagnostic Otorhinolaryngology Lara Snell Au.D. [address] [facility] [place] [phone] 01/29/2022 Office Visit Orthopedic Surgery Laurie Dumont APRN , C.N.P., D.N.P. [address] [facility] [place] [phone] (Wo rk) Scheduled Referrals Name Type Priority Associated Diagnoses Order S [facility] Primary Care - YARITZA Outpatient Referral Routine Screening Cance r Expected: consult (clinic) Colon 03/30/2021 (Approximate), Expires: 03/30/2024 documented as of this encounter Results SARS Coronavirus-2 RNA, V Asymptomatic (04/15/2021 10:24 AM RENEWABLE ENERGY DIVISION MANAGER) [facility] Method Time Signature SARS-CoV-2 Swab, 04/15/2021 ECLR Specimen Nasopharynx 8:55 PM RENEWABLE ENERGY DIVISION MANAGER Source SARS CoV-2 Undetected Undetected 04/15/2021 ECLR RNA, TMA 8:55 PM RENEWABLE ENERGY DIVISION MANAGER Comment: SARS-CoV-2 RNA absent. This result does not rule out COVID-19 in the patient, as the sensitivity of the test depends o n the timing of the specimen collection and the quality of the specim en. Result should be correlated with patient's history and clinical presentat ion. ----ADDITIONAL INFORMATION---- This molecular amplification test was pe rformed using the Aptima SARS-CoV-2 assay ([employer] on the [employer] tem under emergency use authorization (EUA) by the U.S. Food and Drug Administ ration. Fact sheets for this EUA assay can be fo und at the following links: For Healthcare Providers: https://www.fd a.gov/media/231160/download For Patients: https://www.fda.gov/media/ 794201/download Specimen Anatomical Collection Method Collection Time Receive d Time (Source) Location / / Volume Laterality Varies 04/15/2021 10:24 04/15/2021 3:00 (Nasopharynx) AM RENEWABLE ENERGY DIVISION MANAGER PM RENEWABLE ENERGY DIVISION MANAGER Delvin Booker M.D. LAB MICROBIOLOGY - GENERAL O RDERABLES Performing Organization Address City/State/[facility] Phon e Number [place] [address] [place] [address] LAB ECLR [place] [id number] System in [address] documented in this encounter Visit Diagnoses Diagnosis Screening Cancer Colon - Primary documented in this encounter Care Teams Hotel Superintendent Relationship Specialty Start Date End Date Elsewhere, Pcp PCP - General 06/07/19 documented as of this encounter
--- OUTSIDE RECORDS SUMMARY | 2022-01-23 19:38 | XMS_ITS | Encounter Summary ---
:1960 Author Organization [facility] Address [address] [place] [address] Care Team Providers Name Role Phone Beth Valderrama P.A.-C. Primary Care Provider Encounter Details Date Type Department Care Team Description 04/21/2019 Clinical Department of David, Clara, Communication Otorhinolaryngology in [facility] [place], [place] [address] [place] [address] [place], [place] [phone] Social History Tobacco Use Types Packs/Day Years [...] or relatives? How often do you attend taoism or Patient refused 2021 jehovah's witness services? Do you belong to any clubs or No 12/20/2021 organizations such as taoism groups, unions, fraternal or athletic groups, or [...] slept in a nursing home (including now)? 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 - 04/23/2019 10:45 AM LETTER STAMPING MACHINE OPERATOR Called patient, relayed provider's message, see below, patient verbalized understanding and appointment is scheduled with Clara Hernandez P.A.-C. for 04/27/2019. ER STAMPING MACHINE OPERATOR Telephone Encounter - Josue Veras L.P.N. - 04/22/2019 1:55 PM CST Called patient and left generic voice message on unidentified voice mailbox to return call to nurse line. ER STAMPING MACHINE OPERATOR Telephone Encounter - Clara Hernandez P.A.-C. - 04/22/2019 1:38 PM CST Please have him come back in for a recheck. Thank you ER STAMPING MACHINE OPERATOR Telephone Encounter - Josue Veras L.P.N. - 04/22/2019 1:08 PM CST Called patient after patient left voice message for staff, patient states he is still having nose bleeds a few times a week, his last episode was 2 days ago, running like a runny nose, did pack and it does stop after a minute, patient states he does have a cold and is trying to not blow his nose hard at all. Patient is leaving May 04, 2019 to go to [place] and would like to know if there is anything they can do before they leave. Routing to provider to address. ER STAMPING MACHINE OPERATOR Telephone Encounter - Josue Veras L.P.N. - 04/22/2019 8:54 AM CST Called patient and left generic message on unidentified mailbox for a return call to nurse line. ER STAMPING MACHINE OPERATOR Telephone Encounter - Josue Veras L.P.N. - 04/21/2019 8:11 AM CST Received message from patient, patient's message was inaudible. Grinder Operator Automatic called and left generic voicemessage on unidentified mailbox to return call to nurse line. ER STAMPING MACHINE OPERATOR documented in this encounter Plan of Treatment Upcoming Encounters Date Type Specialty Care Team Description 01/24/2022 Diagnostic Otorhinolaryngology Lara Snell Au.D. [address] [place], [place] [phone] 01/29/2022 Office Visit Orthopedic Surgery Laurie Dumont, ANA , C.N.P., D.N.P. [address] [place], [place] [phone] (Wo rk) documented as of this encounter Visit Diagnoses Not on filedocumented in this encounter Care Teams Clinical Application Consultant Relationship Specialty Start Date End Date Beth Valderrama P.A.-C. PCP - General Family Medicine 09/15/17 06/06/19 documented as of this encounter
--- OUTSIDE RECORDS SUMMARY | 2022-01-23 19:38 | XMS_ITS | Encounter Summary ---
:1960 Author Organization [facility] Address [address] [place] [address] Care Team Providers Name Role Phone Elsewhere, Pcp Primary Care Provider Unavailable Encounter Details Date Type Department Care Team Description 04/15/2021 Lab Department of [facility] Delvin Booker Sc reening Cancer Colon [facility] [address] [facility] [address] [place] [phone] (Wo rk) Social History Tobacco Use Types [...] you attend uatsdin or Patient refused 2021 jew services? Do you belong to any clubs or No 12/20/2021 organizations such as uatsdin groups, unions, fraternal or athletic groups, or [...] at Date Recorded Male 06/23/2021 7:46 PM STUNNER documented as of this encounter Plan of Treatment Upcoming Encounters Date Type Specialty Care Team Description 01/24/2022 Diagnostic Otorhinolaryngology Lara Snell Au.D. [address] [facility], [place] [phone] 01/29/2022 Office Visit Orthopedic Surgery Laurie Dumont APRN , C.N.P., D.N.P. [address] [facility], [place] [phone] (Wo rk) documented as of this encounter Procedures Procedure Name Priority Date/Time Associated Diagnosis Comme nts SARS CORONAVIRUS-2 Routine 04/15/2021 10:24 AM Screening Cance r Results for this RNA, V STUNNER Colon procedure are i n the results section. documented in this encounter Results SARS Coronavirus-2 RNA, V Asymptomatic (04/15/2021 10:24 AM STUNNER) [facility] Method Time Signature SARS-CoV-2 Swab, 04/15/2021 ECLR Specimen Nasopharynx 8:55 PM STUNNER Source SARS CoV-2 Undetected Undetected 04/15/2021 ECLR RNA, TMA 8:55 PM STUNNER Comment: SARS-CoV-2 RNA absent. This result does not rule out COVID-19 in the patient, as the sensitivity of the test depends o n the timing of the specimen collection and the quality of the specim en. Result should be correlated with patient's history and clinical presentat ion. ----ADDITIONAL INFORMATION---- This molecular amplification test was pe rformed using the Aptima SARS-CoV-2 assay ([employer] on the [employer] tem under emergency use authorization (EUA) by the U.S. Food and Drug Administ ration. Fact sheets for this EUA assay can be fo und at the following links: For Healthcare Providers: https://www.fd a.gov/media/638676/download For Patients: https://www.fda.gov/media/ 872322/download Specimen Anatomical Collection Method Collection Time Receive d Time (Source) Location / / Volume Laterality Varies 04/15/2021 10:24 04/15/2021 3:00 (Nasopharynx) AM STUNNER PM STUNNER Delvin Booker M.D. LAB MICROBIOLOGY - GENERAL O RDERABLES Performing Organization Address City/State/[facility] Phon e Number [phone] [facility] [place] [address] System in [address] documented in this encounter Visit Diagnoses Diagnosis Screening Cancer Colon documented in this encounter Additional Health Concerns Infection Onset Date Last Indicated Resolved Time COVID19 Pending 04/15/2021 04/15/2021 04/15/2021 8:55 PM STUNNER documented as of this encounter Care Teams Planisher Relationship Specialty Start Date End Date Elsewhere, Pcp PCP - General 06/07/19 documented as of this encounter
--- OUTSIDE RECORDS SUMMARY | 2022-01-23 19:38 | XMS_ITS | Encounter Summary ---
:1960 Author Organization [facility] Address [address] [place] [address] Care Team Providers Name Role Phone Beth Valderrama P.A.-C. Primary Care Provider Reason for Visit Reason Comments Med Refill Encounter Details Date Type Department Care Team Description 11/11/2017 Refill Department of Family Medicine, Maximo Valderrama, Med Refill [facility], in [place] [address] [place], [place] [address] [phone] Social History Tobacco Use Types Packs/Day Years [...] or relatives? How often do you attend buddhism or Patient refused 2021 jainism services? Do you belong to any clubs or No 12/20/2021 organizations such as buddhism groups, unions, fraternal or athletic groups, or [...] or slept in a custodial (including now)? 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 [address] [place], [place] [phone] 01/29/2022 Office Visit Orthopedic Surgery Laurie Dumont, ANA , C.N.P., D.N.P. [address] [place], [place] [phone] (Wo rk) documented as of this encounter Visit Diagnoses Not on filedocumented in this encounter Care Teams Forestry Worker Relationship Specialty Start Date End Date Beth Valderrama P.A.-C. PCP - General Family Medicine 09/15/17 06/06/19 documented as of this encounter
--- OUTSIDE RECORDS SUMMARY | 2022-01-23 19:38 | XMS_ITS | Encounter Summary ---
:1960 Author Organization [facility] Address [address] [place] [address] Care Team Providers Name Role Phone Elsewhere, Pcp Primary Care Provider Unavailable Reason for Visit Auth/Cert Specialty Diagnoses / Procedures Referred By Contact Refer red To Contact Diagnoses Encounter for screening for malignant neoplasm of colon colon cancer screening z12.11 Procedures ID COLONOSCOPY DIAGNOSTIC COLONOSCOPY Referral ID Status Reason Start Date Expiration Date Visits Requ ested Visits Authorized [id number] 1 1 Encounter Details Date Type Department Care Team Description 04/18/2021 Anesthesia Event [facility] MAIN OR Aleksey Huffman, POCKET GRINDER OPERATOR, SOFTWARE ARCHITECT [address] [place] [address] [place] [address] Miriam Ge M.D. [address] [place] [address] JULIAN MCLEAN [phone] Anesthesia Record Procedure Summary Procedure Name Responsible Anesthesiologist Anesthesia Start Ti me Anesthesia Stop Time COLONOSCOPY Aleksey Huffman, POCKET GRINDER OPERATOR, 04/18/21 1338 1 1409 SOFTWARE ARCHITECT Events Date Time Event Comment 04/18/2021 1305 1338 An Start Machine/Equipmen t Checked Infection Precautions Foll owed Procedure/Site Verified NPO Sta tus Verified Supine Standard ASA Mon itors Applied 1342 Turnover to Proceduralist 1345 Proc Start 1407 Proc Fin 1409 Turnover to ANE Staff 1409 an stop data 1409 An End I completed my h andoff to the receiving staff during [facility] ch we 1. Identified the patient 2. Ident ified the responsible provider 3. Revi ewed the pertinent medical history 4. Discu ssed the surgical course 5. Reviewed intra-o p anesthesia management and issues during an esthesia 6. Set expectations for post-procedure period 7. Allowed opportun ity for questions and acknowledgement of understanding. Name Total midazolam PF injection 1 mg/mL 2 mg fentanyl injection 50 mcg/mL 100 mcg propofol 10 mg/mL injection 80 mg propofol 10 mg/mL infusion 239.6 mg ondansetron PF 4 mg/2 mL injection 4 mg Agents No agents on file. Blood No blood administrations on file. Lines, Drains, and Airways Type Details Placement Removal Peripheral IV Placement Date: 04/18/21; 04/18/21 1321 by Kitty , 04/18/21 1502 by Placement Time: 1321; Tara Velaqzuez Tri cia RShahzad Catheter Size: 20 G; Orientation: Right; Location: Hand; Site Prep: Chlorhexidine (Preferred); Technique: Anatomical landmarks; Inserted by: Nabeel Chicas RN; Insertion Attempts: 1; Removal Date: 04/18/21; Removal Time: 1502 documented in this encounter Social History Tobacco [...] or relatives? How often do you attend zoroastrian or Patient refused 2021 mu-ism services? 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 Responsible Provider: Aleksey Huffman APRN, CRNA Anesthesia Type: MAC ASA Status: 2 Anesthesia Type: MAC Last vitals Vitals Value Taken Time BP Temp Pulse 74 04/18/21 1412 Resp 15 04/18/21 1412 SpO2 95 % 04/18/21 1412 Vitals shown include unvalidated device data. Please reference Vitals flowsheet for most recent vital signs. Anesthesia Post Evaluation Patient Disposition: dismissal Cardiovascular status: hemodynamics (HR & BP) acceptable Respiratory status: patent airway with spontaneous effort Temperature: normothermic Level of consciousness: awake Pain score: pain adequately controlled and/or at baseline Post Op nausea/vomiting: none Hydration status: euvolemic LATORY AFFAIRS CONSULTANT Anesthesia Preprocedure Evaluation - Aleksey Huffman APRN, CRNA - 04/18/2021 1:05 PM CST Preprocedure Anesthesia & H&P Assessment Procedure Summary Date/Time: 04/18/21 1100 Procedure: COLONOSCOPY (N/A ) Pre-op diagnosis: colon cancer screening z12.11 Location: [facility] - [place] Surgeons: Kavon Espino M.D. Pertinent components of the patient's history including current problem list, medical history, surgical history, family history, social history, medications and allergies were reviewed. Present illnessand pre-op diagnosis were confirmed. The planned surgery / procedure was verified with the patient /legal guardian. The patient's general health condition remains unchanged RELEVANT COMORBID CONDITIONS CV (+) Hypertension Essential Primary OBJECTIVE PHYSICAL EXAMINATION Airway (HEENT) Mallampati: II TM Distance: >3 FB Neck ROM: Full Mouth Opening: >3 cm Cardiovascular Rhythm: Regular Rate: Normal Cardiovascular Assessment: cardiovascular normal Pulmonary Pulmonary Assessment: Clear General / Constitutional Constitutional Assessment: Normal General State of Health:: calm Neurological Neurologic Assessment:??alert Dental Dental Assessment: dentition intact ASSESSMENT / PLAN ANESTHESIA PLAN ASA: 2 Anesthesia Plan: MAC Patient seen and allergies reviewed, anesthesia plan and risks discussed directly with patient /legal guardian or through an bellhop service captain. The use of blood products not discussed Approval to Proceed: approved for anesthesia LATORY AFFAIRS CONSULTANT documented in this encounter Plan of Treatment Upcoming Encounters Date Type Specialty Care Team Description 01/24/2022 Diagnostic Otorhinolaryngology Lara Snell Au.D. [address] [place], [place] [phone] 01/29/2022 Office Visit Orthopedic Surgery Laurie Dumont APRN , C.N.P., D.N.P. [address] [place], [place] [phone] (Wo rk) documented as of this encounter Visit Diagnoses Not on filedocumented in this encounter Administered Medications Inactive Administered Medications - up to 3 most recent administrations Medication Order MAR Action Action Date Dose Rate Site fentaNYL injection (SUBLIMAZE) Given 04/18/2021 1:38 PM REGULATORY AFFAIRS CONSULTANT 100 mcg intravenous, As needed, Starting on Fri04/18/21 at 1338, Anesthesia Intra-op midazolam (PF) injection (VERSED) Given 04/18/2021 1:38 PM REGULATORY AFFAIRS CONSULTANT 2 mg intravenous, As needed, Starting on Fri04/18/21 at 1338, Anesthesia Intra-op ondansetron (PF) injection (ZOFRAN) Given 04/18/2021 1:38 PM REGULATORY AFFAIRS CONSULTANT 4 mg intravenous, As needed, Starting on Fri04/18/21 at 1338, Anesthesia Intra-op propofol 10 mg/mL infusion Rate/Dose 04/18/2021 1:51 75 mcg/kg/min 5 3.91 (DIPRIVAN) Change PM REGULATORY AFFAIRS CONSULTANT mL/hr intravenous, Continuous Infusion: Per Instructions PRN, Starting on Fri04/18/21 at 1344, Anesthesia Intra-op New Bag 04/18/2021 1:44 PM REGULATORY AFFAIRS CONSULTANT 125 mcg/kg/min 89.85 mL/hr propofoL injection (DIPRIVAN) Given 04/18/2021 1:44 PM REGULATORY AFFAIRS CONSULTANT 30 mg intravenous, As needed, Starting on Fri04/18/21 at 1341, Anesthesia Intra-op Given 04/18/2021 1:41 PM REGULATORY AFFAIRS CONSULTANT 50 mg documented in this encounter Care Teams Emergency Department Technician Relationship Specialty Start Date End Date Elsewhere, Pcp PCP - General 06/07/19 documented as of this encounter
--- OUTSIDE RECORDS SUMMARY | 2022-01-23 19:38 | XMS_ITS | Encounter Summary ---
:1960 Author Organization [facility] Address [address] [place] [address] Care Team Providers Name Role Phone Elsewhere, Pcp Primary Care Provider Unavailable Encounter Details Date Type Department Care Team Description 01/06/2020 Hospital Encounter Department of Sandra Sanches Injury Foot Initial Radiology in Maldonado Bui M.D. [place], [place] [address] [place] [address] [place] [phone] Social History Tobacco Use Types Packs/Day [...] or relatives? How often do you attend spiritism or Patient refused 2021 faith services? Do you belong to any clubs or No 12/20/2021 organizations such as spiritism groups, unions, fraternal or athletic groups, or [...] place to sleep or slept in a group home (including now)? 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 capsule ASPIRIN ORAL Take 1 tablet by mouth 0 02/12/2011 04/13/2021 daily. imiquimod (for_ALDARA) Apply 1 application 0 05/2007/03/2021 5 % cream topically 2 (two) times a week. ketoconazole (NIZORAL) Apply 1 application 240 mL 5 10/1810/23/2021 2 % shampoo topically daily. mometasone (for_ELOCON) Apply 1 application 60 mL 3 01/201704/13/2021 0.1 % topical solution topically daily. documented as of this encounter Plan of Treatment Upcoming Encounters Date Type Specialty Care Team Description 01/24/2022 Diagnostic Otorhinolaryngology Lara Snell Au.D. [address] [place], [place] [phone] 01/29/2022 Office Visit Orthopedic Surgery Laurie Dumont APRN , C.N.P., D.N.P. [address] [place], [place] [phone] (Wo rk) documented as of this encounter Procedures Procedure Name Priority Date/Time Associated Comments Diagnosis DX FOOT LEFT 3+ RAD - Routine 01/06/2020 10:11 Injury Foot Results for this VIEWS (most inpatients AM CDT Initial Left procedure a re in and all the results outpatients) section. documented in this encounter Results DX Foot Left 3+ Views (01/06/2020 10:11 AM CDT) Anatomical Region Laterality Modality Lower Extremity, Foot, Musculoskeletal RST LOS, Left Digital Radiography Musculoskeletal ARZ LOS, Muskuloskeletal FLA LOS Specimen (Source) Anatomical Collection Method Collection Time Re ceived Time Location / / Volume Laterality 01/06/2020 11:36 AM CDT Impressions 01/06/2020 11:37 AM CDT No acute fracture. Scattered degenerative arthritis. Mild pes planus. Plantar calcaneal spur. Tiny shannan cification in the distal Achilles tendon. Narrative 01/06/2020 11:37 AM CDT EXAM: DX FOOT LEFT 3+ VIEWS Procedure Note Nadir Kaufman M.D. - 01/06/2020F ormatting of this note might be different from the original. EXAM: DX FOOT LEFT 3+ VIEWS IMPRESSION: No acute fracture. Scattered degenerativ e arthritis. Mild pes planus. Plantar calcaneal spur. Tiny shannan cification in the distal Achilles tendon. Sandra [facility] JOEY DARNELL documented in this encounter Visit Diagnoses Diagnosis Injury Foot Initial Left documented in this encounter Care Teams Pediatric Oncology Nurse Relationship Specialty Start Date End Date Elsewhere, Pcp PCP - General 06/07/19 documented as of this encounter
--- OUTSIDE RECORDS SUMMARY | 2022-01-23 19:38 | XMS_ITS | Encounter Summary ---
:1960 Author Organization [facility] Address [address] [place] [address] Care Team Providers Name Role Phone Beth Valderrama P.A.-C. Primary Care Provider Encounter Details Date Type Department Care Team Description 11/12/2017 Clinical Communication Department of [facility], Kaushik Acosta [facility], [id number] [place] [address] [phone] (Work) [phone] Social History Tobacco Use Types Packs/Day Years [...] or relatives? How often do you attend catholic or Patient refused 2021 advent services? 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 Telephone Encounter - Gladys Whitten - 11/12/2017 10:54 AM CDT [facility] pharmacy called questioning the Ketoconazole shampoo, please call when available documented in this encounter Plan of Treatment Upcoming Encounters Date Type Specialty Care Team Description 01/24/2022 Diagnostic Otorhinolaryngology Lara Snell Au.D. [address] [place], [place] [phone] 01/29/2022 Office Visit Orthopedic Surgery Laurie Dumont APRN , C.N.P., D.N.P. [address] [place], [place] [phone] (Wo rk) documented as of this encounter Visit Diagnoses Not on filedocumented in this encounter Care Teams Pmp Project Manager Relationship Specialty Start Date End Date Beth Valderrama P.A.-C. PCP - General Family Medicine 09/15/17 06/06/19 documented as of this encounter
--- OUTSIDE RECORDS SUMMARY | 2022-01-23 19:38 | XMS_ITS | Encounter Summary ---
:1960 Author Organization [facility] Address [address] [place] [address] Care Team Providers Name Role Phone Beth ValderramaCFarshad Primary Care Provider Reason for Visit Reason Comments Epistaxis (Nose Bleed) persistant nose bleeds, had cautizeried a 2015 Ear Fullness would like ears looked at, f eels like it is harder to hear Encounter Details Date Type Department Care Team Description 04/08/2019 Comprehensive Visit Department of David, Clara, Epistax is (Primary Dx); Otorhinolaryngology in P.A.-C. Loss Hearing B[facility]anner rotary drum continuous process [address] [place] [address] [phone] Social History Tobacco Use Types Packs/Day Years [...] you attend zoroastrianism or Patient refused 2021 roman catholic services? Do you belong to any [...] or slept in a jail (including now)? 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 - 04/08/2019 8:30 AM CST ICK KLEANER OPERATOR documented in this encounter Progress Notes Clara Hernandez P.A.-C. - 04/08/2019 8:30 AM CST SUBJECTIVE CHIEF COMPLAINT / REASON FOR VISIT Hussein Whittaker is a 58 y.o. male who presents for evaluation of Epistaxis (Nose Bleed) (persistant nose bleeds, had cautizeried a 2015) and Ear Fullness (would like ears looked at, feels like it is harder to hear). HISTORY OF PRESENT ILLNESS Epistaxis. Hussein presents for evaluation of persistent right anterior epistaxis. He has been seen in the past by Dr. Renee, notably in 2016. He underwent silver nitrate cautery twice, this improved the bleeding for a couple months. However, he continues to have bleeding, can be worse for several weeks, good were several weeks. It is better in the summertime, with the humidity is high-though he doesstill bleed, just less. Mentions that the weeks that it is bad, he typically will bleed every day. If he will hold his head level, the blood always runs out anteriorly. On average, the bleeding lasts about 1 or 2 minutes. At worst, has been about 10 or 15 minutes. Mentions that this is adversely affecting his quality of life and can keep him from participating in activities. He typically will place arolled up Kleenex into his nose and leave it there until the bleeding stops. He does take an 81 mg aspirin daily for general heart health. No history of clots, DVT, PE, or UT. Denies any left-sided symptoms. He is not bleeding from any other areas. No lightheadedness or loss of consciousness. Aside from the to cauterizations in 2016, he has not had any other nasal injuries, surgeries, or interventions. Does not use any nasal steroid spray or intranasal drugs. Hearing. Hussein would like to have his ears checked. Over the years, he feels like his hearing has declined, evenly on both sides. His requested he have his ears checked. He does not feel he needs hearing aids and has a hearing screen coming at work. REVIEW OF SYSTEMS Constitutional: Negative for fever. Respiratory: Negative for coughing up blood. OBJECTIVE PHYSICAL EXAMINATION General appearance: NO ACUTE DISTRESS External ears: Normal Canals: Minimal wax in the left lateral canal, easily removed with alligator forceps. Otherwise, normal nonobstructed. TMs: Intact and healthy bilaterally. No middle ear effusion or abnormality. Good mobility with pneumatoscopy. External nose: Normal Intranasal: Leftward septal deflection. Mild amount of serous crusting overlying the right anterior nasal septum. Cotton soaked in phenylephrine and lidocaine was placed into the right nasal cavity andremoved after approximately 10 minutes. There is a small protruding vascular ectasia on the right mid nasal septum and a few prominent vessels. None of which are bleeding actively. PROCEDURE: Silver nitrate cautery. After discussion of risks and benefits, patient would like to proceed with silver nitrate cautery. Verbal consent was obtained. A small piece of cotton soaked in phenylephrine and lidocaine was placed just posterior to the cautery site on the right nasal septum. Silver nitrate was held on for approximately 5 seconds to each of the concerning areas. No active bleeding was appreciated. Cotton was removed. Surgicel was placed over the cauterized areas. Patient tolerated this procedure well. Oral cavity: Normal Oropharynx: Normal Neck: No palpable masses or lymphadenopathy. Respiratory: Quiet respirations without stridor Cardiovascular: Upper extremities warm and well perfused ASSESSMENT / PLAN #1 Epistaxis #2 Loss Hearing Bilateral Exam findings reviewed with patient. Discussed the option of aggressive humidification/moisturization verses cauterization. Given the findings, I did recommend cauterization. Patient is aware that he may experiencing spotty bleeding over the next 2 weeks as a tissue heals. Stressed the importance of mo isturization. He does have in-home humidity and is agreeable to Vaseline. Since he does not have a history of any heart disease or clotting, he will hold the aspirin for the next couple weeks and discuss this long-term with his PCP. Management of active nosebleeds was discussed. Educational pamphlet was provided. I encouraged him to return for re-evaluation in about 3 or 4 weeks should he experience continued bleeding. Endorse the hearing loss, physically, the ears look good. I did recommend a formal audiogram. He will consider this in future but declined at this time. ICK KLEANER OPERATOR documented in this encounter Plan of Treatment Upcoming Encounters Date Type Specialty Care Team Description 01/24/2022 Diagnostic Otorhinolaryngology Lara Snell Au.D. [address] [place], [place] [phone] 01/29/2022 Office Visit Orthopedic Surgery Laurie Dumont, ANA , C.N.P., D.N.P. [address] [place], [place] [phone] (Wo rk) documented as of this encounter Visit Diagnoses Diagnosis Epistaxis - Primary Loss Hearing Bilateral documented in this encounter Care Teams Dental Laboratory Technician Apprentice Relationship Specialty Start Date End Date Beth Valderrama P.A.-C. PCP - General Family Medicine 09/15/17 06/06/19 documented as of this encounter
--- OUTSIDE RECORDS SUMMARY | 2022-01-23 19:38 | XMS_ITS | Encounter Summary ---
:1960 Author Organization [facility] Address [address] [place] [address] Care Team Providers Name Role Phone Elsewhere, Pcp Primary Care Provider Unavailable Reason for Referral Specialty Diagnoses / Procedures Referred By Contact Refer red To Contact Katey Laguna M.D. [facility] [address] [place] [phone] Referral ID Status Reason Start Date Expiration Date Visits Requ ested Visits Authorized [employer] Encounter Details Date Type Department Care Team Description 07/26/2020 [facility] Only [facility] isadora Laguna M.D. [address] [place] [phone] (Wo rk) Social History Tobacco [...] you attend mosque or Patient refused 2021 hoahaoism services? 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 [address] [place], [place] [phone] 01/29/2022 Office Visit Orthopedic Surgery Laurie Dumont APRN , C.N.P., D.N.P. [address] [place], [place] [phone] (Wo rk) Scheduled Referrals Name Type Priority Associated Order Schedule Diagnoses Covid immunization Outpatient Referral Routine Ex pected: office visit Initial 021 (Approximate), Expires: 07/26/2021 documented as of this encounter Visit Diagnoses Not on filedocumented in this encounter Care Teams Foundry Patternmaker Relationship Specialty Start Date End Date Elsewhere, Pcp PCP - General 06/07/19 documented as of this encounter
--- OUTSIDE RECORDS SUMMARY | 2022-01-23 19:38 | XMS_ITS | Encounter Summary ---
:1960 Author Organization [facility] Address [address] [place] [address] Care Team Providers Name Role Phone Elsewhere, Pcp Primary Care Provider Unavailable Encounter Details Date Type Department Care Team Description 09/05/2020 Immunization Department of [facility] Luis Alberto De Jesus For COVID-19 Medicine, [place] Codie Bui. Vaccine Immunization Professional Building, [address] [place], [place] [address] [place] [address] [address] [address] [place] [address] [phone] Social History Tobacco Use Types Packs/Day Years [...] you attend restorationist or Patient refused 2021 presybeterian services? Do you belong to any clubs [...] [place] [facility] ([facility])? 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 [address] [place], [place] [phone] 01/29/2022 Office Visit Orthopedic Surgery Laurie Dumont, ANA , C.N.P., D.N.P. [address] [place], [place] [phone] (Wo rk) documented as of this encounter Visit Diagnoses Diagnosis Encounter For COVID-19 Vaccine Immunizat ion documented in this encounter Care Teams Clinical Aide Relationship Specialty Start Date End Date Elsewhere, Pcp PCP - General 06/07/19 documented as of this encounter
--- OUTSIDE RECORDS SUMMARY | 2022-01-23 19:38 | XMS_ITS | Encounter Summary ---
:1960 Author Organization [facility] Address [address] [place] [address] Care Team Providers Name Role Phone Elsewhere, Pcp Primary Care Provider Unavailable Reason for Referral Outpatient (Routine) - Closed Specialty Diagnoses / Procedures Referred By Contact Refer red To Contact Preventive Medicine Diagnoses Injury Foot Initial Left Contusion Foot Initial Left Sandra Sanches M.D. [address] [address] Referral ID Status Reason Start Date Expiration Date Visits Requ ested Visits Authorized [id number] Closed 01/06/2020 01/05/2021 1 1 Reason for Visit Reason Comments Foot Injury Dias Equipment doi 12/01/19 Encounter Details Date Type Department Care Team Description 01/06/2020 Comprehensive Visit Department of Sandra Sanches Injury Foot Initial Left (Primary Dx); Occupational Medicine Adrian Bui Contusion Foot Initial Left in [place], [address] [place] [address] [place] [phone] Social History Tobacco Use Types Packs/Day [...] you attend uatsdin or Patient refused 2021 denominational services? Do [...] or slept in a snf (including now)? 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 - 01/06/2020 9:30 AM CDT States that a steal beam fell on the top of his left foot while at work. documented in this encounter Consult Notes Sandra Sanches M.D., M.P.H. 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 male who presents today for evaluation of his left foot injury. The injury occurred when a steel beam (60 lbs) fell and landed on his left foot. He was wearing is steel toe boot at the time. Noted minimal discomfort on the dorsal aspect of the foot. He did not seek any medical attention and is here today as symptoms appear to be getting worse with ambulation. He continues to work unrestricted Today, he reports pain as 3/10. Describes pain as aches on the dorsal aspect of left foot by the bigtoe. Pain radiates to nowhere. Pain ranges from 2-4/10 and is alleviated by rest and aggravated by ambulation. He has been using nothing for the pain Numbness and/or tingling: No Previous injury or condition: none Occupational Medicine Consultation Document complete and reviewed, please see scanned document for details. 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 He works full-time 5 days per week. Other jobs: No Tobacco use: Denies Alcohol Use: no Recreational Drug Use: Denies Review of Systems GENERAL: No fever, chills, malaise. SKIN: No ecchymosis, rash, lesions of concern. HEART: No chest pain, palpitations, diaphoresis. LUNGS: No shortness of breath, new cough, sputum production, hemoptysis, painful breathing. MUSCULOSKELETAL: As described above. NEUROLOGIC: No loss of consciousness, headaches, numbness, tingling, weakness. Other pertinent informations: no Current Outpatient Medications Medication Sig Dispense Refill ??? imiquimod (for_ALDARA) 5 % cream Apply 1 application topically 2 (two) times a week. ??? ketoconazole (NIZORAL) 2 % shampoo Apply 1 application topically daily. 240 mL 5 ??? mometasone (for_ELOCON) 0.1 % topical solution Apply 1 application topically daily. 60 mL 3 ??? omeprazole (for_PriLOSEC) 20 mg capsule Take 1 capsule by mouth daily. ??? ASPIRIN ORAL Take 1 tablet by mouth daily. No current facility-administered medications for this visit. Allergies Allergen Reactions ??? Advil [Ibuprofen] Hives Green capsules only ??? Nyquil Hives Past Medical History: Diagnosis Date ??? Keratosis Actinic ??? 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 Physical Exam GENERAL: Alert, relaxed male, under no acute distress. SKIN: Warm, moist, mild ecchymosis noted left foot HEART: S1, S2. Regular rate and rhythm. No murmurs, gallops or rubs. LUNGS: Clear to auscultation bilaterally. MUSCULOSKELETAL: Ankle examination, left Gait - non-antalgic Inspection - normal Palpation - minimal discomfort noted on palpation of the dorsal aspect of left foot ROM testing with plantar flexion- normal. Dorsi flexion - normal. Inversion - normal. Eversion - normal. Strength, resisted plantar flexion - 5/5. Resisted dorsi flexion - 5/5. Testing: Anterior drawer test - Negative NEUROVASCULAR: Sensation - normal. Color - flesh tone . Pulses at dorsalis pedis - 3+. Posterior tibial - 3+. Capillary refill - < 3 seconds. Diagnostics: EXAM: DX FOOT LEFT 3+ VIEWS 01/06/2020 ?? IMPRESSION: No acute fracture. Scattered degenerative arthritis. Mild pes planus. Plantar calcaneal spur. Tiny calcification in the distal Achilles tendon. Assessment/Plan: Encounter Diagnoses Name Primary? Injury Foot Initial Left Yes ??? Contusion Foot Initial Left Orders Placed This Encounter Procedures ??? Preventive Medicine office visit (clinic) Medications prescribed today: No orders of the defined types were placed in this encounter. MMI: No PPD: Undetermined Work Related: Yes PLAN: Treatment: Patient is here for further evaluation of his left foot injury. X-ray obtained was negative for any acute findings. Result reviewed the patient. Discussed conservative treatment. Medications: [id number]-[id number] medications as needed. Medication side effects reviewed, including anypotential driving restrictions. Discussed worsening symptoms that will bring the patient back soonerfor further evaluation. Next step if no significant improvement - to be determined. Work status: full duty. See attached Report of Injury/Ilness for full details. The patient indicatesunderstanding of these issues and agrees with the plan. The patient was given the yellow copy of theworker illness form. The patient was told to take this form to his employer, so that the employer might be apprised of the patient's current work restrictions. Return visit in 6 weeks, sooner if needed. 45 minutes spent with patient, 30 minutes spent in counseling, discussion of plan and coordination of care and completing the returning to work document. documented in this encounter Plan of Treatment Upcoming Encounters Date Type Specialty Care Team Description 01/24/2022 Diagnostic Otorhinolaryngology Lara Snell Au.D. [address] [place], [place] [phone] 01/29/2022 Office Visit Orthopedic Surgery Laurie Dumont, ANA , C.N.P., D.N.P. [address] [place], [place] [phone] (Wo rk) Scheduled Referrals Name Type Priority Associated Order Schedule Diagnoses Preventive Medicine Outpatient Referral Routine Injury Foot In itial Expected: office visit Left 02/16/2020 (clinic) Contusion Foot (Approximate) , Initial Left Expires: 01/05/2023 documented as of this encounter Visit Diagnoses Diagnosis Injury Foot Initial Left - Primary Contusion Foot Initial Left documented in this encounter Care Teams Meat Loiner Relationship Specialty Start Date End Date Elsewhere, Pcp PCP - General 06/07/19 documented as of this encounter
--- OUTSIDE RECORDS SUMMARY | 2022-01-23 19:38 | XMS_ITS | Encounter Summary ---
:1960 Author Organization [facility] Address [address] [place] [address] Care Team Providers Name Role Phone Beth Valderrama P.A.-C. Primary Care Provider Encounter Details Date Type Department Care Team Description 03/02/2018 Clinical Communication Department of [facility], Kaushik Acosta [facility], [id number] [place] [address] [phone] (Work) [phone] Social History Tobacco Use Types Packs/Day Years [...] or relatives? How often do you attend gnosticist or Patient refused 2021 buddhism services? 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 [address] [place], [place] [phone] 01/29/2022 Office Visit Orthopedic Surgery Laurie Dumont, ANA , C.N.P., D.N.P. [address] [place], [place] [phone] (Wo rk) documented as of this encounter Visit Diagnoses Not on filedocumented in this encounter Care Teams Correspondence Analyst Relationship Specialty Start Date End Date Beth Valderrama PHeike. PCP - General Family Medicine 09/15/17 06/06/19 documented as of this encounter
--- OUTSIDE RECORDS SUMMARY | 2022-01-23 19:38 | XMS_ITS | Encounter Summary ---
:1960 Author Organization [facility] Address [address] [place] [address] Care Team Providers Name Role Phone Soren Shea APRN, C.N.P. Primary Care Provider Encounter Details Date Type Department Care Team Description 04/03/2017 Abstract Department of Family Medicine, Provider, Historical [facility], in [place], [place] [address] [place] [address] [facility] [phone] Social History Tobacco Use Types Packs/Day Years [...] you attend amish or Patient refused 2021 amish services? Do [...] or slept in a penitentiary (including now)? 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 [address] [place], [place] [phone] 01/29/2022 Office Visit Orthopedic Surgery Laurie Dumont APRN , C.N.P., D.N.P. [address] [place], [place] [phone] (Wo rk) documented as of this encounter Visit Diagnoses Not on filedocumented in this encounter Care Teams Genetic Coordinator Relationship Specialty Start Date End Date Soren Shea APRN, C.N.P. PCP - General 10/31/16 09/14/17 documented as of this encounter
--- OUTSIDE RECORDS SUMMARY | 2022-01-23 19:38 | XMS_ITS | Encounter Summary ---
:1960 Author Organization [facility] Address [address] [place] [address] Care Team Providers Name Role Phone Soren Shea APRN, C.N.P. Primary Care Provider [phone] Reason for Visit Reason Comments Skin Check face Encounter Details Date Type Department Care Team Description 04/26/2017 Office Visit Department of Sim Templeton Dermatitis S eborrheic (Primary Dx); Dermatology in [facility]at oheliosis; [place], [place] Keratosis [facility] [address] [place] [address] JULIAN MCLEAN [phone] Social History Tobacco Use Types Packs/Day Years [...] you attend jew or Patient refused 2021 worship services? Do [...] or slept in a [facility] (including now)? 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 - 04/26/2017 12:00 AM CST [facility]. SUBJECTIVE CHIEF COMPLAINT/REASON FOR VISIT Chief complaint is follow up precancers. HISTORY OF PRESENT ILLNESS Mr. Whittaker is a pleasant 56-year-old gentleman who presents today for expanded skin check. He has had his precancerous lesions treated previously with Aldara. He tolerated that well. He has also had some seborrheic dermatitis in his scalp and his nasolabial folds. He has been treating that with ketoconazole shampoo daily that is effective for it. He has previously used mometasone solution sparingly in the nasolabial folds and chin but has been efficacious for removing the redness and scale. He hopesto have this refilled. It was initially prescribed by Dr. Jamarcus Gordillo. Denies any other new changing painful bleeding lesions though noted some scaling spots over the right inferior eyelid. He has been in his otherwise normal state of health and has no other questions or concerns. He has had a hypertrophic scar over the right shoulder after the shave biopsy. It is not itching, tender or painful. He just wanted to make sure it was not anything worrisome. ALLERGIES/CONTRAINDICATIONS NyQuil. OBJECTIVE PHYSICAL EXAMINATION General: Awake, alert, in no acute distress, and with appropriate affect. Eyes: No scleral injection or icterus. No eyelid abnormalities. Skin: I have examined the face, lips, and neck. Valladares skin type I/II. There is erythrotelangiectatic photodamage over the face. There is mild seborrhea in the scalp and nasal labial folds. There are a 2 ill-defined scaling macules on the right infraorbital malar cheek consistent with actinic keratoses. There is a hypertrophic scar over the right upper trapezius. ASSESSMENT / PLAN #1 Dermatoheliosis Sun Damage. Sun protection and sun avoidance were reviewed with the patient. Educational materials were provided regarding skin self-examination, the warning signs and symptoms of skin cancer, and the proper use of sunscreens. I would recommend a full skin cancer screening examination with an appropriately trained clinician every year. He has a lot of erythrotelangiectatic photodamage. He asked for any possible treatments and I instructed him that he would need to be treated with laser therapy in [facility] and I would offer thisfor him. He will consider it. #2 Actinic keratoses There were 2 lesions over the right malar cheek. He is going on vacation next week and we will set up a return visit in 4-6 months to have these treated. #3 Seborrheic dermatitis I recommend continue ketoconazole shampoo and I refilled his mometasone solution. I did instruct himto never use this on the eyelids and only uses sparingly for no more than 1-2 times a week and he voiced understanding of this. #4 Hypertrophic scar It is not symptomatic for him, thus benign observation recommended. 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 [address] [place], [place] [phone] 01/29/2022 Office Visit Orthopedic Surgery Laurie Dumont APRN , C.N.P., D.N.P. [address] [place], [place] [phone] (Wo rk) documented as of this encounter Visit Diagnoses Diagnosis Dermatitis Seborrheic - Primary Dermatoheliosis Keratosis [facility] documented in this encounter Care Teams Agronomist Relationship Specialty Start Date End Date Soren Shea APRN, C.N.P. PCP - General 10/31/16 09/14/17 documented as of this encounter
--- OUTSIDE RECORDS SUMMARY | 2022-01-23 19:38 | XMS_ITS | Encounter Summary ---
:1960 Author Organization [facility] Address [address] [place] [address] Care Team Providers Name Role Phone Elsewhere, Pcp Primary Care Provider Unavailable Reason for Visit Reason Comments CF/RW colonoscopy outside referral Encounter Details Date Type Department Care Team Description 03/16/2021 Clinical Communication [facility] MAIN OR Elsewhere, CF/RW colonoscopy [address] Pcp (outside referral) [place] [phone] Social History Tobacco Use Types Packs/Day [...] you attend catholic or Patient refused 2021 cheondoism services? Do [...] or slept in a [facility] (including now)? 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 - 03/27/2021 10:16 AM CST Late entry: the [facility] endoscopy call center team LMTCB on 03/26/21 TENANCE PARTS TECHNICIAN Telephone Encounter - Maddie Trivedi R.N. - 03/16/2021 3:17 PM CDT Referring provider: [facility] Referring facility: Dr. Milton Vásquez Diagnosis:colon cancer screening z12.11 Procedure requested: Colonoscopy Additional comments: Patient is a healthy 60 year old individual whose last colonoscopy was greater than 10 years ago. Nospecific family history no personal history of colon issues. Prescription for golytely was sent in. Case entry created: yes Prep ordered: yes if no, once scheduled, route to provider performing procedure once scheduled Routed to endo pool: yes ASHLEIGH needed? Oxygen dependent N/A Coronary Artery Disease N/A Uncontrolled DM2 N/A Anticoagulant managed by INR N/A Sleep Apnea N/A BMI greater than 40 N/A Chronic Opioid Dependence/Chronic pain N/A Significant Psychosocial Issues N/A if yes to any above, order preop physical, if RW site, notify Miriam Ge. documented in this encounter Plan of Treatment Upcoming Encounters Date Type Specialty Care Team Description 01/24/2022 Diagnostic Otorhinolaryngology Lara Snell Au.D. [address] [place] [phone] 01/29/2022 Office Visit Orthopedic Surgery Laurie Dumont APRN , C.N.P., D.N.P. [address] [phone] (Wo rk) documented as of this encounter Visit Diagnoses Not on filedocumented in this encounter Care Teams Recruitment Assistant Relationship Specialty Start Date End Date Elsewhere, Pcp PCP - General 06/07/19 documented as of this encounter
--- OUTSIDE RECORDS SUMMARY | 2022-01-23 19:38 | XMS_ITS | Encounter Summary ---
:1960 Author Organization [facility] Address [address] [place] [address] Care Team Providers Name Role Phone Elsewhere, Pcp Primary Care Provider Unavailable Reason for Visit Reason Comments Pre-op Exam 04/18 [facility] (Routine) - Closed Specialty Diagnoses / Procedures Referred By Contact Refer red To Contact Family Medicine Diagnoses Screening Cancer Colon Delvin Booker M.D. [facility] Region [address] [place] [address] Referral ID Status Reason Start Date Expiration Date Visits Requ ested Visits Authorized [id number] Closed 03/30/2021 03/30/2022 1 1 Encounter Details Date Type Department Care Team Description 04/13/2021 Office Visit Department of Chica Diaz Hyper tension Essential Primary (Primary Dx); Medicine, Yuki Bui APRN, C.N.P., Preoper ative Exam; [facility], in D.N.P. Screening Cancer Colon; [place] [address] Diverticulo sis Of Large Intestine Without Perforation Or Abscess Without Bleeding; [facility] Morbid Severe Obesity Due To Excess Mary myra ([facility]) [address] [place], [place] [address], [place] [phone] Social History Tobacco Use Types Packs/Day [...] many times do you More than three shya es a week 12/20/2021 talk on the phone with family, friends, or neighbors? How often do you get together with friends Twice a week 12/20/2021 or relatives? How often do you attend mandaen or Patient refused 2021 restorationism services? Do you belong to any clubs or No 12/20/2021 organizations such as mandaen groups, unions, fra[facility]ANT HEALTH or athletic groups, or school groups? How [...] at Date Recorded Male 06/23/2021 7:46 PM PULLMAN CAR CLERK documented as of this encounter Last Filed Vital Signs Vital Sign Reading Time Taken Comments Blood Pressure 120/78 04/13/2021 9:45 AM PULLMAN CAR CLERK Pulse 86 04/13/2021 9:45 AM PULLMAN CAR CLERK Temperature 36.2 ??C (97.2 ??F) 04/13/2021 9:45 AM PULLMAN CAR CLERK Respiratory Rate - - Oxygen Saturation 96% 04/13/2021 9:45 AM PULLMAN CAR CLERK Inhaled Oxygen Concentration - - Weight 120 kg (264 lb 1.8 oz) 04/13/2021 9:45 AM PULLMAN CAR CLERK Height 181 cm (5' 11.26) 04/13/2021 9:45 AM PULLMAN CAR CLERK Body Mass Index 36.57 04/13/2021 9:45 AM PULLMAN CAR CLERK documented in this encounter H&P Notes Chica Rodriguez APRN, C.N.P., D.N.P. - 04/13/2021 10:00 AM CST SUBJECTIVE Hussein Whittaker [phone] DATE OF SURGERY: 04/18/2021 DATE OF EXAM: 04/13/21 TYPE OF SURGERY: Colonoscopy CHIEF COMPLAINT/REASON FOR VISIT Preoperative consultation. HISTORY OF PRESENT ILLNESS Hussein Whittaker is a pleasant 60 y.o. male, with a history of hypertension, GERD, obesity that presents to the clinic today for comprehensive preoperative exam. Procedure is: - Low Risk (cardiac risk >1%): Superficial procedures, endoscopy, cataracts, breast surgery RISK STRATIFICATION Functional status: - Functional [...] positives/negatives listed above. OBJECTIVE VITAL SIGNS Vitals: 04/13/21 0945 BP: 120/78 Pulse: 86 Temp: 36.2 ??C SpO2: 96% Stop Bang (BALDO) Total Score: 6 PHYSICAL EXAMINATION General: Awake, alert and oriented x3, comfortable. Affect normal. HEENT: Pupils equal, round, reactive to light. Extraocular movements intact. Conjunctivae not injected. External auditory canals are clear. Nasopharynx without erythema. No tonsillar hypertrophy or exudate. Mucous membranes are moist. Dentition and gums intact. Neck supple without lymphadenopathy. Mall ampati score I. Heart: Regular rate and rhythm. No murmurs, [...] 6 Other risk factors: Hypertension, obesity #2 Screening Cancer Colon Proceed with planned procedure. #3 Hypertension Essential Primary Blood pressure well controlled today. #4 Diverticulosis Of Large Intestine Without Perforation Or Abscess Without Bleeding No acute concerns. #5 Morbid Severe Obesity Due To Excess Calories (HCC) Counseled on weight loss. Preoperative instructions discussed and understanding indicated: Follow all preop hospital/center instructions. IF TAKING ASPIRIN/NSAIDs: Stop aspirin/NSAIDs 1 week before procedure and resume 1 day after the procedure unless instructed otherwise. IF TAKING ANY ANTICOAGULANTS: Stop other anticoagulants per instructions of hospital/center or, if no instructions provided, stop anticoagulants 5 days before procedure and resume 1 day after the procedure unless instructed otherwise. IF TAKING ORAL DIABETES MEDS: Hold on the day of the procedure and [...] the procedure unless instructed otherwise. IF TAKING INSULIN: Hold basal insulin on the day of the procedure and resume once eating. IF TAKING SUPPLEMENTS: Stop all supplements 1 week prior to procedure and may resume 1 day after the procedure unless instructed otherwise. IF TAKING DMARDs as a part of medication regimen: - hydrochloroquine can be continued uninterrupted. - methotrexate should be held for 2 wks prior if low CRCL. - methotrexate can be continued weekly if normal CRCL. - azathioprine and sulfasalazine should be held for 1 wk prior. IF TAKING ALLOPURINOL: Hold allopurinol on the day of the procedure and resume the following day unless instructed otherwise. Patient was instructed to [...] of the content. Total time: 20 minutes Chica Rodriguez APRN, C.N.P., D.N.P. MAN CAR CLERK documented in this encounter Plan of Treatment Upcoming Encounters Date Type Specialty Care Team Description 01/24/2022 Diagnostic Otorhinolaryngology Lara Snell Au.D. [address] [facility] [place] [phone] 01/29/2022 Office Visit Orthopedic Surgery Laurie Dumont APRN C.N.P., D.N.P. [address] [place], [place] [phone] (Wo rk) documented as of this encounter Procedures Procedure Name Priority Date/Time Associated Diagnosis Comme nts SODIUM, S/P Routine 04/13/2021 10:00 Hypertension Results for this AM PULLMAN CAR CLERK Essential Primar y procedure are in Preoperative Exam the result s section. POTASSIUM, S/P Routine 04/13/2021 10:00 Hypertension Results f or this AM PULLMAN CAR CLERK Essential Primar y procedure are in Preoperative Exam the result s section. CREATININE WITH Routine 04/13/2021 10:00 Hypertension Results for this EGFR, S/P AM PULLMAN CAR CLERK Essential Primar y procedure are in Preoperative Exam the result s section. documented in this encounter Results Sodium (04/13/2021 10:00 AM PULLMAN CAR CLERK) athologist Signature Sodium, P 138 135 - 145 04/13/2021 CN[facility] mmol/L 10:38 AM PULLMAN CAR CLERK Specimen Anatomical Collection Method Collection Time Receive d Time (Source) Location / / Volume Laterality Blood (Blood, 04/13/2021 10:00 04/13/2021 Venous) AM PULLMAN CAR CLERK 10:04 AM PULLMAN CAR CLERK Chica Rodriguez APRN, C.N.P., D.N.P. LAB BLOOD ADD-ON Performing Organization Address City/State/ZIP Code Phon e Number [address] [place] [address] [facility] [place] [address] System in [place] [address] Bl Potassium (04/13/2021 10:00 AM PULLMAN CAR CLERK) athologist Signature Potassium, P 4.4 3.6 - 5.2 04/13/2021 [facility] mmol/L 10:38 AM PULLMAN CAR CLERK Specimen Anatomical Collection Method Collection Time Receive d Time (Source) Location / / Volume Laterality Blood (Blood, 04/13/2021 10:00 04/13/2021 Venous) AM PULLMAN CAR CLERK 10:04 AM PULLMAN CAR CLERK Rosaura Escobar APRN.N.P., D.N.P. LAB BLOOD ADD-ON Performing Organization Address [facility]/[place]IP [facility] [place] [address] [address] [place] [address] Creatinine with Estimated GFR (04/13/2021 10:00 AM PULLMAN CAR CLERK) athologist Signature Creatinine 1.11 0.74 - 04/13/2021 [facility] 1.35 mg/dL 10:38 AM PULLMAN CAR CLERK eGFR-Black/Afric 82 >=60 04/13/2021 [facility] an Mongolian mL/min/BSA 10:38 AM PULLMAN CAR CLERK Comment: ----ADDITIONAL INFORMATION---- Estimated GFR calculated using the 2009 CKD_EPI creatinine equation. eGFR Non-Black/ 71 >=60 mL/min/BSA 04/13/2021 10:38 AM PULLMAN CAR CLERK [facility]FL Comment: ----ADDITIONAL INFORMATION---- Estimated GFR calculated using the 2009 CKD_EPI creatinine equation. Specimen Anatomical Collection Method Collection Time Receive d Time (Source) Location / / Volume Laterality Blood (Blood, 04/13/2021 10:00 04/13/2021 Venous) AM PULLMAN CAR CLERK 10:04 AM PULLMAN CAR CLERK Rosaura Escobar APRN.N.P., D.N.P. LAB BLOOD ADD-ON Performing Organization Address City/[facility]/ZIP Code Phon e Number [address] [address] [facility] [place] [address] [address] documented in this encounter Visit Diagnoses Diagnosis Hypertension Essential Primary - Primary Preoperative Exam Screening Cancer Colon Diverticulosis Of Large Intestine Withou t Perforation Or Abscess Without Bleeding Morbid Severe Obesity Due To Excess Mary myra (HCC) documented in this encounter Care Teams Middle School Math Teacher Relationship Specialty Start Date End Date Elsewhere, Pcp PCP - General 06/07/19 documented as of this encounter
--- OUTSIDE RECORDS SUMMARY | 2022-01-23 19:38 | XMS_ITS | Encounter Summary ---
:1960 Author Organization [facility] Address [address] [place] [address] Care Team Providers Name Role Phone Elsewhere, Pcp Primary Care Provider Unavailable Encounter Details Date Type Department Care Team Description 07/26/2019 Hospital Encounter Department of Jignesh Kelley Admini strative Purpose Laboratory Medicine M.D. Exam in [address] [address] [place], [place] [phone] (Work) [phone] Social History Tobacco Use Types Packs/Day Years [...] you attend orthodox or Patient refused 2021 samaritan services? Do you belong to any clubs or No 12/20/2021 organizations such as orthodox groups, unions, fraternal or athletic groups, or [...] or slept in a halfway (including now)? Sex Assigned at Date Recorded Male 06/23/2021 7:46 PM REFRIGERATION PERSON documented as of this encounter Medications at [...] 01/24/2022 Diagnostic Otorhinolaryngology Lara Snell Au.D. [address] [place], [place] [phone] 01/29/2022 Office Visit Orthopedic Surgery Laurie Dumont APRN , C.N.P., D.N.P. [address] [place], [place] [phone] (Wo rk) documented as of this encounter Visit Diagnoses Diagnosis Administrative Purpose Exam documented in this encounter Care Teams Dishwasher Relationship Specialty Start Date End Date Elsewhere, Pcp PCP - General 06/07/19 documented as of this encounter
--- OUTSIDE RECORDS SUMMARY | 2022-01-23 19:38 | XMS_ITS | Encounter Summary ---
:1960 Author Organization [facility] Address [address] [place] [address] Care Team Providers Name Role Phone Elsewhere, Pcp Primary Care Provider Unavailable Reason for Visit Auth/Cert Specialty Diagnoses / Procedures Referred By Contact Refer red To Contact Diagnoses Encounter for screening for malignant neoplasm of colon colon cancer screening z12.11 Procedures LA COLONOSCOPY DIAGNOSTIC COLONOSCOPY Referral ID Status Reason Start Date Expiration Date Visits Requ ested Visits Authorized [id number] 1 1 Encounter Details Date Type Department Care Team Description 04/18/2021 Hospital Encounter [facility] OR Kavon Espino [address] [place] [address] BLANE Mcghee M.D. YUKI PINON [address] [phone] [place] [address] (Wo rk) Social History Tobacco Use Types [...] you attend religious or Patient refused 2021 quaker services? Do you belong to any clubs [...] at Date Recorded Male 06/23/2021 7:46 PM ORIENTATION AND MOBILITY INSTRUCTOR documented as of this encounter Last Filed Vital Signs Vital Sign Reading Time Taken Comments Blood Pressure 112/77 04/18/2021 2:45 PM ORIENTATION AND MOBILITY INSTRUCTOR Pulse 64 04/18/2021 2:50 PM ORIENTATION AND MOBILITY INSTRUCTOR Temperature 36.2 ??C (97.2 ??F) 04/18/2021 2:45 PM ORIENTATION AND MOBILITY INSTRUCTOR Respiratory Rate 20 04/18/2021 2:50 PM ORIENTATION AND MOBILITY INSTRUCTOR Oxygen Saturation 98% 04/18/2021 2:50 PM ORIENTATION AND MOBILITY INSTRUCTOR Inhaled Oxygen Concentration - - Weight - [...] 3. The patient will undergo colonoscopy today. NTATION AND MOBILITY INSTRUCTOR documented in this encounter Procedure Notes Kavon Espino M.D. - 04/18/2021 1:36 PM CSTAssociated Order(s): COLONOSCOPY [facility] Patient Name: Hussein Whittaker Procedure Date: [...] was done by the physician, nurse and plastic technician using the patient's name, date and medical record number. Estimated blood loss was minimal. A 4 mm polyp was found in the transverse colon. The polyp was semi-pedunculated. The polyp was removed with a cold snare. Resection and retrieval were complete. Verification of patient identification for the specimen was done by the physician, nurse and plastic technician using the patient's name, date and medical record number. Estimated blood loss was minimal. A 3 mm polyp was found in the descending colon. The polyp was semi-pedunculated. The polyp was removed with a cold snare. Resection and retrieval were complete. Verification of patient identification for the specimen was done by the physician, nurse and plastic technician using the patient's name, date and [...] oxygen saturations were monitored continuously. The 01 [id number] was introduced under direct vision through the [...] 0 Note Initiated On: 04/18/2021 1:36 PM NTATION AND MOBILITY INSTRUCTOR documented in this encounter Plan of Treatment Upcoming Encounters Date Type Specialty Care Team Description 01/24/2022 Diagnostic Otorhinolaryngology Lara Snell Au.D. [address] [place], [place] [phone] 01/29/2022 Office Visit Orthopedic Surgery Laurie Dumont, ANA , C.N.P., D.N.P. [address] [facility] [place] [facility] [phone] (Wo rk) documented as of this encounter Procedures Procedure Name Priority Date/Time Associated Diagnosis Comme nts SURGICAL PATHOLOGY Routine 04/18/2021 1:56 PM Res ults for this ORIENTATION AND MOBILITY INSTRUCTOR procedure are i n the results section. COLONOSCOPY 04/18/2021 1:36 PM Results f or this ORIENTATION AND MOBILITY INSTRUCTOR procedure are i n the results section. COLONOSCOPY 04/18/2021 1:36 PM colon cancer ORIENTATION AND MOBILITY INSTRUCTOR screening z12.11 documented in this encounter Results Surgical Pathology (04/18/2021 1:56 PM ORIENTATION AND MOBILITY INSTRUCTOR) Component Value Ref Test Analysis Performed At [facility] Range Method Time Signature 04/20/2021 ECLR 1:27 PM ORIENTATION AND MOBILITY INSTRUCTOR Report Slade A. 04/20/2021 ECLR electronically Adrian Mckinley 1:27 PM ORIENTATION AND MOBILITY INSTRUCTOR signed by Specimen Received A. Ascending colon 04/20/2021 EC LR B. Transverse colon polyp 1:27 PM ORIENTATION AND MOBILITY INSTRUCTOR C. Descending colon polyp Gross Description A: ??Received in a container labeled ascending co flip are 04/20/2021 ECLR multiple tissues, 0.4 cm to 0.8 cm. All submitted in 1:27 PM ORIENTATION AND MOBILITY INSTRUCTOR cassette A1. B: ??Received in a container labeled transverse colon are multiple tissues, 0.3 cm to 0.8 cm. All submitted in cassette B1 S. C: ??Received in a container labeled descending is a 0.5 cm in greatest dimension portion of tissue. All submitted in cassette C1. [id number] Interpretation FINAL DIAGNOSIS 04/20/2021 ECLR A. Colon, ascending, biopsy: ??Sessile serrated polyp. 1:27 PM ORIENTATION AND MOBILITY INSTRUCTOR B. ??Colon, transverse, biopsy: ??Normal colonic mucosa. C. ??Colon, descending, biopsy: Hyperplastic polyp. Specimen (Source) Anatomical Collection Method Collection Time Re ceived Time Location / / Volume Laterality Polyp (Colon) 04/18/2021 1:56 PM ORIENTATION AND MOBILITY INSTRUCTOR Polyp (Colon) 04/18/2021 1:59 PM ORIENTATION AND MOBILITY INSTRUCTOR Polyp (Colon) 04/18/2021 2:04 PM ORIENTATION AND MOBILITY INSTRUCTOR Narrative This result has an attachment that is no t available. Kavon Espino M.D. LAB SURG PATH ORDERABLES Performing Organization Address City/State/ZIP Code Phon e Number [facility] [address] [place] [address] [phone] [facility] [place] [address] [address] COLONOSCOPY (04/18/2021 1:36 PM ORIENTATION AND MOBILITY INSTRUCTOR) Specimen (Source) Anatomical Location Collection Method / Collectio n Time Received Time / Laterality Volume Narrative This result has an attachment that is no t available. Procedure Note Kavon Espino M.D. - 04/18/2021 1:36 PM CST [facility] Patient Name: Hussein Whittaker Procedure Date: [...] was done by the physician, nurse and plastic technician using the patient's name, date and medical record number. Estimated blood loss was minimal. A 4 mm polyp was found in the transvers e colon. The polyp was semi-pedunculated. The polyp was remove d with a cold snare. Resection and retrieval were complete. Verificati on of patient identification for the specimen was done by the physician, nurse and plastic technician using the patient's name, date and medical record number. Estimated blood loss was minimal. A 3 mm polyp was found in the descendin g colon. The polyp was semi-pedunculated. The polyp was remove d with a cold snare. Resection and retrieval were complete. Verificati on of patient identification for the specimen was done by the physician, nurse and plastic technician using the patient's name, date and [...] saturations were monitored continuously . The 01 [id number] was introduced under direct vision through the [...] lactated ringers New Bag 04/18/2021 1:22 PM ORIENTATION AND MOBILITY INSTRUCTOR 75 mL/hr 75 mL/hr 75 mL/hr, intravenous, [...] Recently Administered Medications Times are shown in ORIENTATION AND MOBILITY INSTRUCTOR. Scheduled Medication Order 04/16/2021 04/17/2021 04/18/2021 lidocaine [...] injection documented in this encounter Care Teams Mirror Machine Feeder Relationship Specialty Start Date End Date Elsewhere, Pcp PCP - General 06/07/19 documented as of this encounter
--- OUTSIDE RECORDS SUMMARY | 2022-01-23 19:38 | XMS_ITS | Encounter Summary ---
:1960 Author Organization [facility] Address [address] [place] [address] Care Team Providers Name Role Phone Elsewhere, Pcp Primary Care Provider Unavailable Reason for Referral Specialty Diagnoses / Procedures Referred By Contact Refer red To Contact [facility] [place] [facility] [address] [place] [address] Referral ID Status Reason Start Date Expiration Date Visits Requ ested Visits Authorized Encounter Details Date Type Department Care Team Description 08/10/2020 Immunization Department of [facility] Katey Laguna Enco unter For COVID-19 Medicine, [place] M.D. Vaccine Immunization Professional Building, [address] (Primary Dx) in [place], [place] [address] [place] [phone] [place] [address] Social History Tobacco Use Types Packs/Day Years [...] you attend yazdanism or Patient refused 2021 methodist services? 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 [address] [place], [place] [phone] 01/29/2022 Office Visit Orthopedic Surgery Laurie Dumont, ANA , C.N.P., D.N.P. [address] [place], [place] [phone] (Wo rk) Scheduled Referrals Name Type Priority Associated Diagnoses Order S chedule Covid immunization Outpatient Referral Routine Encounter For E xpected: office visit Covid-19 Vaccine 08/31/2020, Subsequent; 21 days Immunization Expires: 08/11/2023 documented as of this encounter Visit Diagnoses Diagnosis Encounter For COVID-19 Vaccine Immunizat ion - Primary documented in this encounter Care Teams Warehouse Lead Relationship Specialty Start Date End Date Elsewhere, Pcp PCP - General 06/07/19 documented as of this encounter
--- OUTSIDE RECORDS SUMMARY | 2022-01-23 19:38 | XMS_ITS | Encounter Summary ---
:1960 Author Organization [facility] Address [address] [place] [address] Care Team Providers Name Role Phone Beth Valderrama P.A.-C. Primary Care Provider [phone] Encounter Details Date Type Department Care Team Description 02/25/2018 Orders Only Department of Family Beth Valderrama C ardiac Vascular Disease Screening (Primary Dx); Medicine, Yuki Garcia P.A.-C. Screening Examination [facility], [address] [place] [address] [address] [address] [place], [place] [phone] (Work) [phone] Social History Tobacco Use Types Packs/Day Years [...] you attend uatsdin or Patient refused 2021 yazidism services? 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 [address] [place], [place] [phone] 01/29/2022 Office Visit Orthopedic Surgery Laurie Dumont, ANA , C.N.P., D.N.P. [address] [facility], [place] [phone] (Wo rk) documented as of this encounter Visit Diagnoses Diagnosis Cardiac Vascular Disease Screening - [facility] Screening Examination Diabetes Mellitus documented in this encounter Care Teams Winery Cellar Hand Relationship Specialty Start Date End Date Beth Valderrama PFarshadASam. PCP - General Family Medicine 09/15/17 06/06/19 documented as of this encounter
--- OUTSIDE RECORDS SUMMARY | 2022-01-23 19:38 | XMS_ITS | Encounter Summary ---
:1960 Author Organization [facility] Address [address] [place] [address] Care Team Providers Name Role Phone Elsewhere, Pcp Primary Care Provider Unavailable Reason for Visit Reason Comments schedule colonoscopy CF screening Encounter Details Date Type Department Care Team Description 03/27/2021 Clinical Department of Dian Welch schedule Communication General Surgery in L, R.N. colonoscopy CF [place], [address] [place] [address] (screening) [address] [phone] Social History Tobacco Use Types Packs/Day Years [...] you attend gnosticist or Patient refused 2021 religion services? Do [...] slept in a long term (including now)? Sex Assigned at Date Recorded Male 06/23/2021 7:46 PM GRINDER BRAKE LINING documented as of this encounter Miscellaneous Notes Telephone Encounter - Dian Welch R.N. - 03/30/2021 1:07 PM GRINDER BRAKE LINING 03-26 and 03-30 attempts to call patient done. Lmtcb DER BRAKE LINING Telephone Encounter - Dian Welch R.N. - 03/27/2021 4:01 PM GRINDER BRAKE LINING Patient has been waiting for a call, Do in CF if Wed has to be after April 18. Was a outside referral DER BRAKE LINING documented in this encounter Plan of Treatment Upcoming Encounters Date Type Specialty Care Team Description 01/24/2022 Diagnostic Otorhinolaryngology Lara Snell Au.D. [address] [place], [place] [phone] 01/29/2022 Office Visit Orthopedic Surgery Laurie Dumont APRN , C.N.P., D.N.P. [address] [place], [place] [phone] (Wo rk) documented as of this encounter Visit Diagnoses Not on filedocumented in this encounter Care Teams Senior Lead Software Engineer Relationship Specialty Start Date End Date Elsewhere, Pcp PCP - General 06/07/19 documented as of this encounter
--- OUTSIDE RECORDS SUMMARY | 2022-01-23 19:39 | XMS_ITS | Encounter Summary ---
:1960 Author Organization [facility] Address [address] [place] [address] Care Team Providers Name Role Phone Unavailable Primary Care Provider Unavailable Encounter Details Date Type Department Care Team Description 04/14/2015 Hospital Encounter [facility] Nhan Pacheco M.D. [id number] [place] [address] JULIAN Castanon [phone] (Wo rk) Social History Tobacco Use Types Packs/Day Years Used Date Smoking Tobacco: Never Assessed Alcohol Habits Answer Date Recorded How often [...] you attend taoism or Patient refused 2021 jew services? Do [...] or slept in a fpc (including now)? 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 0 01/1804/13/2021 documented as of this encounter Plan of Treatment Upcoming Encounters Date Type Specialty Care Team Description 01/24/2022 Diagnostic Otorhinolaryngology Lara Snell Au.D. [address] [place], [place] [phone] 01/29/2022 Office Visit Orthopedic Surgery Laurie Dumont APRN , C.N.P., D.N.P. [address] [place], [place] [phone] (Wo rk) documented as of this encounter Visit Diagnoses Not on filedocumented in this encounter
--- OUTSIDE RECORDS SUMMARY | 2022-01-23 19:39 | XMS_ITS | Encounter Summary ---
:1960 Author Organization [facility] Address [address] [place] [address] Care Team Providers Name Role Phone Unavailable Primary Care Provider Unavailable Encounter Details Date Type Department Care Team Description 04/30/2014 Hospital Encounter HX [facility] Mikey Smith III, M.D. [address] [place] [phone] (Wo rk) Social History [...] or relatives? How often do you attend methodist or Patient refused 2021 mormon services? Do you belong to any clubs or No 12/20/2021 organizations such as methodist groups, unions, fraternal or athletic groups, or [...] or slept in a long-term (including now)? 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 0 01/1804/13/2021 documented as of this encounter Progress Notes Kavon Stubbs M.D. - 04/30/2014 9:39 AM CST [id number] CHIEF COMPLAINT/REASON FOR VISIT Evaluation of finger injury. HISTORY OF PRESENT ILLNESS Mr. Whittaker is a 57-year-old gentleman. Mr. Whittaker is here for evaluation of his left index finger. This was injured on 04/29/2014 at [employer] in [place], [place]. He was pushing carts in the trailer and got my finger caught between 2 of them around 1 p.m. He immediately experienced pain that he rates as 8 out of 10 in intensity. There was blood under his fingernail. Mobility was slightly reduced from this. He had significant throbbing of the finger overnight. SYSTEMS REVIEW Pertinent positives and negatives noted above. The remainder of complete review of systems is negative. PAST MEDICAL/SURGICAL HISTORY PAST MEDICAL HISTORY: GERD. Microscopic hematuria. History of tobacco use. PAST SURGICAL HISTORY: Arthroscopy of the knee. Cystoscopy. Colonoscopy, 2009. FAMILY HISTORY Reviewed in [employer]. SOCIAL HISTORY Reviewed in [employer]. MEDICATIONS Reviewed and reconciled in [employer]. PHYSICAL EXAMINATION VITAL SIGNS: Temperature 36.7, pulse 70, respirations 16, blood pressure 128/84, height 182 cm. GENERAL: Patient is alert and cooperative. He is in no acute distress at this time. EXTREMITIES: Evaluation of his right finger shows fluctuant subungual hematoma. There is a purplish hue to the fingertip along with considerable swelling compared to his other index finger. The patienthas pain with palpation of the distal tip of the finger. PROCEDURE Verbal consent was given for cautery evacuation of the subungual hematoma. A fine tip, high temp surgical cautery was used to make a small hole in the middle of the left index fingernail. There was immediately a large gush of blood. The patient received almost instantaneous relief of his pain. DIAGNOSTICS Three views of the left index finger show a nondisplaced fracture of the tuft of the distal phalanx of the second finger, left hand. IMPRESSION/REPORT/PLAN 1. Closed fracture finger, active. 2. Subungual hematoma, left index finger, active. 3. Crush finger, active, not otherwise specified. PLAN: After having evacuation of the subungual hematoma, the patient had considerable relief of his pain. X-ray was obtained. That showed the fracture, and a metal splint was applied to the finger withslight extension of the distal phalanx. He tolerated that quite well. Patient should return to work with the following restrictions: He should wear a metal splint at all times while at work for 4 weeks. Otherwise, no restrictions. We sent him with a copy of the [employer] Functional Capacity Evaluation. I will send a copy of that to Occupational Medicine. He did have a non-DOT urine drug screen done today. His questions were answered. Reassurance was given. Kavon Stubbs M.D./ryan Electronically Signed By: KAVON STUBBS III, MD On: 05/01/2014 08:44 AM Source: [facility] MHSDOLBEYNONRADSYS Document Id: [id number] EYBALL COACH documented in this encounter Nursing Notes Ariana Eid L.P.N. - 04/30/2014 10:29 AM CST Dermatology Intake Dermatology Intake Entered On: 04/30/2014 10:30 VOLLEYBALL COACH Performed On: 04/30/2014 10:29 VOLLEYBALL COACH by ARIANA EID LPN General Date of Last Dermatology Visit : 09/17/2011 CDT ARIANA EID LPN - 04/30/2014 10:29 VOLLEYBALL COACH Dermatology Intake History Pain Symptoms : Yes Past Dermatology History : Basal cell carcinoma ARIANA EID [facility] - 04/30/2014 10:29 VOLLEYBALL COACH Pain Pain Assessment Grid Location : Finger Intensity : 8 ARIANA EID [facility] - 04/30/2014 10:29 VOLLEYBALL COACH Dependent Habits Tobacco Use/Currently Using : No Exposure to Tobacco Smoke : Care provider denies smoking in home Smoking Status : Former smoker ARIANA EID St[facility] - 04/30/2014 10:29 VOLLEYBALL COACH Tobacco Use Grid Type : Cigarettes Last Use : 1996 ARIANA EID Stoney [facility] - 04/30/2014 10:29 VOLLEYBALL COACH Caffeine Use Grid Caffeine Use : None ARIANA EID [facility] [employer] - 04/30/2014 10:29 VOLLEYBALL COACH Recreational Drug Use Grid Drug Use : None ARIANA EID [facility]oney [employer] - 04/30/2014 10:29 VOLLEYBALL COACH Preprocedural Pause Correct Patient Identity : Patient verbalizes self Correct Procedure Site and Side : subunguinal hematoma on left index finger release. Correct Procedure Site/Side Verified By : Patient/responsible green party Site Marking : Yes Pre-Procedure Pause Verbal Confirm. of : Procedure, Site, Side, Patient Position, Patient ID Preprocedural Pause : 10:30 VOLLEYBALL COACH Start Time : 10:30 VOLLEYBALL COACH JUANITOARIANA MCMILLAN Stoney [facility] - 04/30/2014 10:29 VOLLEYBALL COACH [facility] POWERCH[facility] Document Id: [id number] VOLLEYBALL COACH!33 EYBALL COACH documented in this encounter Miscellaneous Notes Miscellaneous - Alyssa Morris - 08/28/2016 2:14 PM CDT Health Maintenance Reminder August 28, 2016 HUSSEIN WHITTAKER [address] [place] [address] [phone] Dear HUSSEIN WHITTAKER, We have developed a six-month overview of preventive and recommended services that apply to your unique health care needs. Some may be past due or may be coming due in the next three months. If youhave already scheduled any or all of these services, thank you. We recognize that this may or may not include all of your individualized health care needs; however, we are happy to help you with any and all primary care concerns you may have. Past Due Fasting Glucose Lab Test for Diabetes Screening: recommended preventive service starting at age 18 Fasting Lipid Panel: recommended preventive service starting at age 20 It may be possible to bundle some of the above services together to make your visit with us more convenient. Please call [phone] to schedule services that are past due or that may shortly become due (thank you if you have already done so). We will follow up in six months should you have more services to schedule at that time. If you have already received any of the listed past due or upcoming services outside of [facility], please call [phone] to add them to your medical record. You may want to consider contacting your health insurance company to make sure these services are covered and find out if there will be any dji-ed-lyutkw expense. If you have any questions about the services listed above, or if you are no longer receiving care from [facility], please contact us at [phone]. Thank you for partnering to provide you with the best care possible. We encourage you to set up your Patient Online Services account [email or web address], where you can communicate in a convenient way with us, schedule appointments, receive lab results and more. To set up your account, you will need your [facility] Number, which is [phone]. Thank you for choosing us, Soren Shea R.N. and the [facility], for your health care needs! Sincerely, ALYSSA MORRIS Electronic Signature Electronically Signed By: ALYSSA MORRIS On: August 28, 2016 This document has images extracted. Source: [facility] POWERCHART Document Id: [id number] EYBALL COACH Telephone Encounter - Conversion, Historical Provider Ser - 10/24/2015 4:32 PM CDT *Phone Message Document Contains Addenda Addendum by SOREN SHEA NP on October 25, 2015 20:00:05 CDT Approved Order:omeprazole (omeprazole 40 mg oral delayed release capsule) 1 cap(s) PO Daily Pt needs to establish before next refill Qty: 30 cap(s) Refills: 0 Substitutions Allowed Route To Pharmacy - [facility] Signed by SOREN SHEA NP 10/25/2015 20:00:01 Addendum by ARIANA EID LPN on October 25, 2015 08:04:34 CDT From: ARIANA EID LPN ([facility]) To: SOREN SHEA NP; Sent: 10/25/2015 08:04:34 CDT Subject: Med Management noted pt will need appt before any further refills. On hold pending signature Order:omeprazole (omeprazole 40 mg oral delayed release capsule) 1 cap(s) PO Daily Pt needs to establish before next refill Qty: 30 cap(s) Refills: 0 Substitutions Allowed Route To Pharmacy - [facility] From: WU SEGURA ([facility]) To: [facility]; Sent: 10/24/2015 16:32:37 CDT Subject: *Phone Message Caller is: ( X) Patient ( ) Mother ( ) Father ( ) Spouse ( ) Daughter ( ) Son ( ) Pharmacy ( ) Other: Physician: Shabbir Patient MRN #: Reason for Call: Renew RX Message: Patient called he needs a RX for his indegestion( antacid) route to [facility] Advice/Action: Source used: ( ) Verbalizes understanding of instructions ( ) Instructed to call back if symptoms worsen or do not resolve ( ) Refused to see provider ( ) Appointment Scheduled ( ) OK to leave message on voice mail ( ) Patient told to expect return call: ( ) today ( ) tomorrow ( ) next work day ( ) Patient's email ( ) Patient told physician out of office, will call upon return call on ( ) ( ) Patient told physician out of office, routed to other physician ( ) Other ( ) Call back telephone number ( ) Call back cell phone number ( ) Source: [facility] POWERCHART Document Id: [id number] Miscellaneous - Conversion, Historical Provider Ser - 09/26/2014 3:42 PM CDT Med Management Document Contains Addenda Addendum by CARLO CAREY MD on 17 October 2014 13:27:41 CDT From: CARLO CAREY MD Sent: 10/17/2014 13:27:41 CDT Subject: RE:Med Management Approved with modifications: Order:fluticasone topical (Cutivate 0.05% topical lotion) 1 matteo Topical Daily to seborrhoeic dermatitis of face PRN. Qty: 60 mL Refills: 0 Substitutions Allowed Route To Pharmacy - [facility] Signed by CARLO CAREY MD 10/17/2014 13:27:27 Addendum by ML WEBB V on 03 Oct 2014 10:35:41 CDT Per Hannah-Pt advised to schedule F/U visit.He declined From: ML WEBB V To: CARLO CAREY MD; ML WEBB V; Sent: 09/26/2014 15:42:42 CDT Subject: Med Management On hold pending signature Order:fluticasone topical (Cutivate 0.05% topical lotion) 1 matteo Topical Daily to seborrhoeic dermatitis of face PRN. Qty: 60 mL Refills: 3 Substitutions Allowed Route To Pharmacy - [facility] Last ordered filled @ 09/18/13 visit [facility] [employer] Document Id: [id number] Miscellaneous - Alonso Sahni, C.N.A. - 05/04/2014 4:07 PM CST Functional Capacities Eval. From: ALONSO STARK To: ALONSO STARK; Sent: 05/04/2014 16:07:02 VOLLEYBALL COACH Subject: Functional Capacities Eval. Faxed to [facility]. Source: [facility] POWERCHART Document Id: [id number] Electronically signed by Conversion, [facility] Sales [employer] [id number] at 10/15/2016 8:22 PM CDT Miscellaneous - Ariana Eid L.P.N. - 04/30/2014 10:12 AM CST Adult Rn Geriatric Intake/History Adult Rn Geriatric Intake/History Entered On: 04/30/2014 10:14 VOLLEYBALL COACH Performed On: 04/30/2014 10:12 VOLLEYBALL COACH by ARIANA EID LPN Intake Chief Complaint : smashed left index finger 04/29/14 that got between 2 metal carts. Pain is 8/10 states he has a lot of pressure under the nail bed. Temperature Core : 36.7 DegC(Converted to: 98.1 DegF) Peripheral Pulse Rate : 70 /min Respiratory Rate : 16 /min Systolic Blood Pressure : 128 mmHg Diastolic Blood Pressure : 84 mmHg NIBP Mean : 99 mmHg BP Location : Left upper extremity Blood Pressure Cuff Size : Large Height : 182 cm(Converted to: 6 ft 0 inch(es), 72 inch(es)) ARIANA EID LPN - 04/30/2014 10:12 VOLLEYBALL COACH General Info Information Given By : Patient Languages : Slovenian Is Patient Female and 13-50 no hysterectomy : No ARIANA EID LPN - 04/30/2014 10:12 VOLLEYBALL COACH Subjective Pain Symptoms : Yes ARIANA EID LPN - 04/30/2014 10:12 VOLLEYBALL COACH Pain Pain Assessment Grid Pain 1 Location : Finger Laterality : Left Intensity : 8 ARIANA EID LPN - 04/30/2014 10:12 VOLLEYBALL COACH Dependent Habits Tobacco Use/Currently Using : No Exposure to Tobacco Smoke : Care provider denies smoking in home Smoking Status : Former smoker ARIANA EID LPN - 04/30/2014 10:12 VOLLEYBALL COACH Tobacco Use Grid Type : Cigarettes Last Use : 1996 ARIANA EID LPN - 04/30/2014 10:12 VOLLEYBALL COACH Caffeine Use Grid Caffeine Use : None ARIANA EID LPN - 04/30/2014 10:12 VOLLEYBALL COACH Recreational Drug Use Grid Drug Use : None ARIANA EID LPN - 04/30/2014 10:12 VOLLEYBALL COACH ID Screen Drug Resistant Organism : No Travel Within Last 21 Days : No ARIANA EID LPN - 04/30/2014 10:12 VOLLEYBALL COACH Source: [facility] [employer]CHART Document Id: [id number] VOLLEYBALL COACH!41 EYBALL COACH Miscellaneous - Ariana Eid L.PShahzad - 04/30/2014 10:11 AM CST Health Assessment Health Assessment Entered On: 04/30/2014 10:12 VOLLEYBALL COACH Performed On: 04/30/2014 10:11 VOLLEYBALL COACH by ARIANA EID LPN Health Assessment Complete Health Assessment Complete or Modified : Annual Health Assessment Annual Health Assessment Completed : Yes ARIANA EID LPN - 04/30/2014 10:11 VOLLEYBALL COACH Nutrition Nutrition Risk Factors by History Adult : None ARIANA EID LPN - 04/30/2014 10:11 VOLLEYBALL COACH Functional Current Daily Living Assistance : None ARIANA EID LPN - 04/30/2014 10:11 VOLLEYBALL COACH Dependent Habits Tobacco Use/Currently Using : No Exposure to Tobacco Smoke : Care provider denies smoking in home Smoking Status : Former smoker ARIANA EID LPN - 04/30/2014 10:11 VOLLEYBALL COACH Tobacco Use Grid Type : Cigarettes Last Use : 1996 ARIANA EID LPN - 04/30/2014 10:11 VOLLEYBALL COACH Caffeine Use Grid Caffeine Use : None ARIANA EID LPN - 04/30/2014 10:11 VOLLEYBALL COACH Recreational Drug Use Grid Drug Use : None ARIANA EID LPN - 04/30/2014 10:11 VOLLEYBALL COACH Psychosocial Domestic Abuse Concerns : None Shinto Preference : No qualifying data available. ARIANA EID LPN - 04/30/2014 10:11 VOLLEYBALL COACH Advance Directive Advanced Directives : No Advance Directive Additional Information : No ARIANA EID LPN - 04/30/2014 10:11 VOLLEYBALL COACH Educ Needs Learning Style Preference Adult Grid Patient : Demonstration, Printed materials Family : ARIANA Guzman LPN - 04/30/2014 10:11 VOLLEYBALL COACH Source: [facility] [employer] Document Id: [id number] VOLLEYBALL COACH!32 EYBALL COACH documented in this encounter Plan of Treatment Upcoming Encounters Date Type Specialty Care Team Description 01/24/2022 Diagnostic Otorhinolaryngology Lara Snell Au.D. [address] [facility] [place], [place] [phone] 01/29/2022 Office Visit Orthopedic Surgery Laurie Dumont APRN C.N.P., D.N.PFarshad [address] [place], [place] [phone] (Wo rk) documented as of this encounter Procedures Procedure Name Priority Date/Time Associated Diagnosis Comme nts DRUG SCREEN URINE Routine 04/30/2014 11:30 AM Res ults for this VOLLEYBALL COACH procedure are i n the results section. documented in this encounter Results Drug Screen Urine (04/30/2014 11:30 AM VOLLEYBALL COACH) [facility] Method Time Signature HXU Amphet Scrn Negative POWERCHART Barbiturates Negative POWERCHART HX U Benzodia Negative POWERCHART Scrn Cocaine Negative POWERCHART Carboxy-THC Negative POWERCHART Immunoassay Screen Methadone Negative POWERCHART Immunoassay Screen Amphetamine/Metha Negative POWERCHART mphetamine, Urine HXU Ecstasy Scrn Negative POWERCHART Opiates Negative POWERCHART Oxycodone-by Negative POWERCHART LC-MS/MS HX U Negative POWERCHART Phencyclidine HXU Tricyclic Scr Negative POWERCHART Specimen (Source) Anatomical Collection Method Collection Time Re ceived Time Location / / Volume Laterality Urine 04/30/2014 11:30 AM VOLLEYBALL COACH Kavon Stubbs III, M.D. LAB URINE ORDERABLES Performing Organization Address City/State/ZIP Code Phon e Number POWERCHART documented in this encounter Visit Diagnoses Not on filedocumented in this encounter
--- OUTSIDE RECORDS SUMMARY | 2022-01-23 19:39 | XMS_ITS | Encounter Summary ---
:1960 Author Organization [facility] Address [address] [place] [address] Care Team Providers Name Role Phone Unavailable Primary Care Provider Unavailable Encounter Details Date Type Department Care Team Description 09/21/2016 Hospital Encounter HX [facility] Jennifer Joel M.D. [address] [place] [address] (Wo rk) Social History Tobacco Use Types [...] at Date Recorded Male 06/23/2021 7:46 PM [employer] documented as of this encounter Last Filed Vital Signs Vital Sign Reading Time Taken Comments Blood Pressure - - Pulse - - Temperature - - Respiratory Rate - - Oxygen Saturation - - Inhaled Oxygen Concentration - - Weight - - Height 183 cm (6' 0.05) 09/21/2016 11:55 AM CDT Body Mass Index - - documented in this encounter Medications at Time of Discharge Medication Sig Dispensed Refills Start Date End Date ASPIRIN ORAL Take 1 tablet by mouth 0 02/12/2011 04/13/2021 daily. imiquimod (for_ALDARA) Apply 1 application 0 05/2007/03/2021 5 % cream topically 2 (two) times a week. ketoconazole (NIZORAL) Apply 1 application 0 05/2011/11/2017 2 % shampoo topically daily. mometasone (for_ELOCON) Apply 1 application 0 04/26/2017 0.1 % topical solution topically daily. documented as of this encounter Consult Notes Jennifer Smith M.D. - 09/21/2016 11:53 AM CDT [id number] Document Contains Addenda CHIEF COMPLAINT/REASON FOR VISIT Recheck face. HISTORY OF PRESENT ILLNESS The patient is a very pleasant, 55-year-old male with a history of non-melanoma skin cancer as well as actinic damage, who presents today for a recheck of his face. He was last seen in Dermatology by Dr. Gordillo on June 08, 2016. At that time, he was noted to have some actinic keratoses on the faceand was recommended imiquimod application. The patient reports that he has been using that, and did not notice any difference. He feels that the spots may have increased in size. He defers a complete skin check today, given that he just had a skin check a few months ago. No other concerns. SYSTEMS REVIEW Review of systems: Pertinent positives and negatives per HPI. PHYSICAL EXAMINATION GENERAL: Alert, awake, in no acute distress. SKIN: Skin examination of his face, scalp, and ears was performed. Involving the right cheek and thecentral forehead there are 3 red scaly macules concerning for actinic keratoses. On the right lateral periorbital area there is a similar pink scaly patch with a slightly raised area. IMPRESSION/REPORT/PLAN 1. Right lateral periorbital lesion, actinic keratosis, rule out non-melanoma skin cancer. I think most likely this is an actinic keratosis. However, given that there is a more raised area that possibly has some ulceration, I recommend a biopsy to ensure this does not represent a skin cancer, he would like to proceed. PROCEDURAL PAUSE: Procedural pause conducted to verify: correct patient identity, procedure to be performed, and as applicable, correct side and site, correct patient position, and availability of implants, special equipment, or special requirements. PROCEDURE DETAILS: Shave biopsy. We explained the potential diagnosis and recommended that we obtaina biopsy. The risks and benefits of the procedure were discussed, and the patient consented to theseprocedures. Using 1% lidocaine with epinephrine for local anesthesia, a shave biopsy was obtained from the right lateral periorbital. I also performed cryotherapy to the surrounding area of the lesion.Biopsy submitted to Dermatopathology for H and E. Special stains will be performed as indicated. Thebleeding was well controlled with application of aluminium chloride. Dressing was applied, and woundcare instructions were explained. Biopsy results and any further recommendations will be communicated to the patient by letter. Patient given pamphlet [id number]. INFORMED CONSENT: Discussed the risks, benefits, alternatives, and the necessity of other members ofthe healthcare meléndez participating in the procedure. All questions answered and consent given. 2. Actinic keratoses x3. Given the precancerous nature of these lesions, their treatment is medically indicated. After discussion of the risks, benefits and alternatives to treatment with cryotherapy, informed consent was obtained. We treated a total of 3 lesions with two 20-second freeze-thaw cycles of liquid nitrogen cryotherapy. The patient tolerated the procedure well. Aftercare instructions were provided in written and verbal form to the patient. Should any of these lesions recur, the patient should return for biopsy or further evaluation. 3. History of non-melanoma skin cancer. The patient will be returning in May 2017 for a complete skin check or sooner if noticing concerning lesions. All questions were answered. 4. Scar, right shoulder. This is from a shave biopsy. Seems to have healed well. I discussed with him that if symptomatic we could consider intralesional Kenalog. At this time he is not interested. PATIENT EDUCATION: Ready to learn, no apparent learning barriers were identified; learning preferences include listening. Explained diagnosis and treatment plan; patient/guardian of patient expressed understanding of content. IMPRESSION/REPORT/PLAN 1. Right lateral periorbital lesion, actinic keratosis, rule out non-melanoma skin cancer. 2. Actinic keratoses x3. 3. History of non-melanoma skin cancer. 4. Scar, right shoulder. Jennifer Smith M.D./pos ADDENDUM: skin biopsy of the right lateral periorbital area showed an actinic keratosis. This has been treated with cryotherapy at the visit, and no further treatment is needed at this time. The patient will be notified by one of our nurses. Electronically Signed By: JENNIFER SMITH MD On: 09/30/2016 01:11 PM Modified by and Electronically Signed by: JENNIFER SMITH MD On: 09/30/2016 01:10 PM Source: [facility] [email or web address] Document Id: [id number] documented in this encounter Nursing Notes Neha Corrales, L.P.N. - 09/21/2016 12:00 PM CDT Dermatology Intake Dermatology Intake Entered On: 09/21/2016 12:03 CDT Performed On: 09/21/2016 12:00 CDT by NEHA CORRALES LPN General Preferred Name : Hussein Accompanied By : Alone Chief Complaint : Spots on face TX area Date of Last Dermatology Visit : 09/17/2011 CDT NEHA CORRALES LPN - 09/21/2016 12:00 CDT Dermatology Intake History Pain Symptoms : No Skin Problems Comment : TX with Imiquimod getting larger and not improving Past Dermatology History : Basal cell carcinoma NEHA CORRALES LPN - 09/21/2016 12:00 CDT Dependent Habits Exposure to Tobacco Smoke : Care provider denies smoking in home, Other: former Smoking Status : Never smoker Tobacco 2A : No Tobacco Use/Currently Using : No Tobacco Use/Last 30 Days : No Tobacco Use/Last 12 months : No Alcohol Use : Yes NEHA CORRALES LPN - 09/21/2016 12:00 CDT Caffeine Use Grid Caffeine Use : None NEHA CORRALES LPN - 09/21/2016 12:00 CDT Recreational Drug Use Grid Drug Use : None NEHA CORRALES LPN - 09/21/2016 12:00 CDT Source: [facility] [employer] Document Id: [id number] CDT!24 documented in this encounter Miscellaneous Notes Miscellaneous - Jennifer Smith M.D. - 09/30/2016 10:45 AM CDT Results Notification Document Contains Addenda Addendum by BREANN RIVERA on September 30, 2016 14:01:54 CDT Left message regarding below. From: JENNIFER SMITH MD To: MIGUEL --BREANN LPN; BREANN RIVERA; Sent: 09/30/2016 10:45:02 CDT ! Show up: 09/30/2016 10:45:02 CDT Subject: Results Notification Actions: Notify patient of results Reminder Comments: AK template. No further treatment needed at this time. thanks! Results: Date Result Name Value 09/21/2016 15:00 Drm Exam Accn-[place] [id number] 09/21/2016 15:00 Drm Exam Addr-[place] See Comment 09/21/2016 15:00 Drm Exam Impr-[place] See Comment 09/21/2016 15:00 Drm Exam Mtrl-[place] See Comment 09/21/2016 15:00 Drm Exam Refer-[place] See Comment 09/21/2016 15:00 Drm Exam Sign-[place] See Comment 09/21/2016 15:00 Drm Exam Site-[place] See Comment [facility] Document Id: [id number] documented in this encounter Plan of Treatment Upcoming Encounters Date Type Specialty Care Team Description 01/24/2022 Diagnostic Otorhinolaryngology Lara Snell Au.D. [address] [place] [phone] 01/29/2022 Office Visit Orthopedic Surgery Laurie Dumont APRN , C.N.P., D.N.P. [address] [facility] [place] [phone] (Wo rk) documented as of this encounter Procedures Procedure Name Priority Date/Time Associated Comments Diagnosis DERMATOPATHOLOGY CONSULT Routine 09/21/2016 3:00 Results for this PM CDT procedure are i n the results section. LAB SURG PATH,LEVEL IV Routine 09/21/2016 3:00 Re sults for this PRO AND TECH PM CDT procedure are i n the results section. documented in this encounter Results LAB SURG PATH,LEVEL IV PRO AND TECH (09/21/2016 3:00 PM CDT) Analysis Performed At Patho logist Time Signature HXLvl IV Surg Performed POWERCHART [facility] Comment: Test Performed by: [address] [address] Specimen Anatomical Collection Method Collection Time Receive d Time (Source) Location / / Volume Laterality Tissue 09/21/2016 3:00 PM 7 CDT 12:27 PM CDT Historical Provider [facility] Performing Organization Address City/State/ZIP Code Phon e Number POWERCHART PATHOLOGY DERMPATH CONSULT, WET TISSUE (09/21/2016 3:00 PM CDT) [facility] Time Signature HXDrm Exam [id number] POWERCHART [facility] HXDrm Exam See Comment POWERCHART Refer-[place] Comment: RESULT: Jennifer Smith M.D. HXDrm Exam Addr-[place] See Comment POWERCH ART Comment: [facility] [place] [address] HXDrm Exam Mtrl-[place] See Comment POWERCH ART Comment: RESULT: A. DermPath Consultatio n, Wet Tissue; right lateral periorbital: HXDrm Exam Site-[place] See Comment POWERCH ART Comment: A. Received in formalin labeled with the patient's name and and lab eled as right lateral pariorbital is a 0.7 x 0.6 x 0.1 cm pal e dukes skin shave biopsy. There is a dark dukes slightly raised nodu le encompassing the entire skin surface. ??The specimen is bisected and submitted entirely in cassette A1. HXDrm Exam [facility] See Comment POWERCH ART Comment: A. ??DermPath Consultation, Wet Tissue; right lateral periorbital: Actinic keratosis with dermal hemorrhage and mixed dermal inflammation HXDrm Exam Sign-[place] See Comment POWERCH ART Comment: RESULT: 09/26/2016 12:22 ??Interpreted by : Neyda Priest M.D Report electronically signed by Neyda Priest M.D. Transcribed by: [email or web address] 09/26/2016 11:15:03 Test Performed by: [address] [address] Specimen (Source) Anatomical Collection Method Collection Time Re ceived Time Location / / Volume Laterality Tissue 09/21/2016 3:00 PM CDT Jennifer Smith M.D. LAB PATH DERM ORDERABLES Performing Organization Address City/State/ZIP Code Phon e Number POWERCHART documented in this encounter Visit Diagnoses Not on filedocumented in this encounter
--- OUTSIDE RECORDS SUMMARY | 2022-01-23 19:39 | XMS_ITS | Encounter Summary ---
:1960 Author Organization [facility] Address [address] [place] [address] Care Team Providers Name Role Phone Unavailable Primary Care Provider Unavailable Encounter Details Date Type Department Care Team Description 07/07/2013 Hospital Encounter HX [facility] Mikey Smith III, M.D. [address] [place] [phone] (Wo rk) Social [...] or relatives? How often do you attend jehovah's witness or Patient refused 2021 christian services? 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 ANALYST documented as of this encounter Last Filed Vital Signs Vital Sign Reading Time Taken Comments Blood Pressure 134/85 07/07/2013 4:28 PM PRIVATE EQUITY ANALYST Pulse 69 07/07/2013 4:28 PM PRIVATE EQUITY ANALYST Temperature - - Respiratory Rate 16 07/07/2013 4:28 PM PRIVATE EQUITY ANALYST Oxygen Saturation - - Inhaled Oxygen Concentration - - Weight 111 kg (244 lb 7.8 oz) 07/07/2013 4:28 PM PRIVATE EQUITY ANALYST Height 182 cm (5' 11.65) 07/07/2013 4:28 PM PRIVATE EQUITY ANALYST Body Mass Index 33.48 07/07/2013 4:28 PM PRIVATE EQUITY ANALYST documented in this encounter Medications at Time of Discharge Medication Sig Dispensed Refills Start Date End Date ASPIRIN ORAL Take 1 tablet by mouth daily. 0 01/1804/13/2021 documented as of this encounter H&P Notes Kavon Stuart M.D. - 07/07/2013 4:21 PM CST [id number] CHIEF COMPLAINT/REASON FOR VISIT Preoperative visit per request of Dr. Dk Mijares for preanesthesia clearance for left knee arthroscopy and meniscectomy. Date of procedure 07/20/2013. HISTORY OF PRESENT ILLNESS Mr. Hernandez is a 52-year-old gentleman with a past medical history significant for tobacco use, GERD,and some microscopic hematuria that has been determined to be incidental. He has had previous meniscectomy in the past, and he and Dr. Mijarse have decided that they should proceed with this. He continues have pain in that knee. SYSTEMS REVIEW GENERAL: No weight gain. No weight loss. No fever in the past month. No chills. No sweats. No fatigue. EENT: No blurred vision. No double vision. No eye pain. No sinus problems. No hoarseness. No difficulty swallowing. No mouth sores. No diminished hearing. No ringing in ears. No enlarged glands. PULMONARY: No shortness of breath. No cough. No wheezing. No sputum production. No hemoptysis. CARDIAC: No valve problems. No chest pain. No chest pressure. No rapid breathing. No irregular beating. No difficulty moving arms and legs. No dependent edema. No pain in calves or with walking. GASTROINTESTINAL:No heartburn. No nausea. No vomiting. No stomach trouble. No constipation. No diarrhea. No blood in bowel movements. No change in BMs. REPRODUCTIVE: Is heterosexual. No change in sex drive or performance. GENITOURINARY: No penile discharge. No burning/pain with urination. No difficulty starting stream. No difficulty emptying bladder. No excessive urination. MUSCULOSKELETAL: No joint pain. No joint swelling. No joint stiffness. No muscle pain. No muscle stiffness. No back pain. No back stiffness. SKIN: No skin rashes. No skin sores. No change in moles. NEURO: No significant headaches. No slurred speech. No seizures. No dizziness. No loss of consciousness. No memory loss. ENDOCRINE: No excessive thirst. No excessive bruising. PAST MEDICAL / SURGICAL HISTORY Tobacco use. Microscopic hematuria. GERD. PAST SURGICAL HISTORY: Cystoscopy, 2011. Esophagoscopy, 2010. Colonoscopy, 2009. Arthroscopy of the knee, 2009. Open reduction internal fixation of wrist, 1994. Repair of rectal fistula, 1988. FAMILY HISTORY Mom at age of 68 from heart problems. She also had high cholesterol, high blood pressure, and history of an [place]. Father is age 87. He has got 4 sisters and 3 brothers, 1 brother has prostate cancer. SOCIAL HISTORY Patient is a former smoker. He drinks alcohol on occasion. Denies recreational drug use. MEDICATIONS Omeprazole. Aspirin 81mg daily. ALLERGIES NyQuil cold medicine. PHYSICAL EXAMINATION VITALS: Temperature 36.6, pulse 69, respirations 16, blood pressure 134/85, O2 sat 100% on room air,weight 110.9 kg, height 182 cm, BMI 33.48, with a risk score 10. GENERAL: He is alert and cooperative. He is in no acute distress at this time. PHQ-9 screening done,see results in [employer]. HEENT: Atraumatic, normocephalic, without deformities. EYES: Pupils are equal, round, and reactive to light. Extraocular muscles are intact. EARS: External ear: Normal canals. TMs normal bilaterally. NOSE: Midline, with normal turbinates. MOUTH: There is no exudate on the posterior pharynx. The patient is a Mallampati 2. NECK: Supple. No cervical lymphadenopathy. Trachea is midline. Thyroid is normal without masses or nodules. LUNGS: Clear to auscultation bilaterally without wheezes or crackles. Breathing is nonlabored. Equalchest excursion bilaterally. HEART: Regular rate and rhythm. No murmur or gallop. ABDOMEN: Soft, nontender. Bowel sounds present. No organomegaly palpated. : Normal male genitalia. MUSCULOSKELETAL: Spine straight. No abnormal curvature. He ambulates about the room without difficulty. He gets himself on and off the examination table without assistance. NEUROLOGIC: Cranial nerves II-XII intact. Reflexes +2/4 in biceps and patellar tendons bilaterally. SKIN: No concerning rashes or lesions. DIAGNOSTICS: None indicated. IMPRESSION/REPORT/PLAN 1. Preoperative exam. 2. Knee pain with tear of meniscal cartilage. PLAN: As of today the patient is medically optimized for the above-noted procedure. Diagnostic testing is not indicated. We discussed cardiovascular, pulmonary deep venous thrombosis, and delirium riskin the postoperative setting. He expresses understanding. His questions were answered. Reassurance was given. Kavon Stuart M.D./osiris cc: [facility] [address] Electronically Signed By: KAVON STUART III, MD On: 07/25/2013 12:36 PM Source: [facility] MHSDOLBEYNONRADSYS Document Id: [id number] documented in this encounter Miscellaneous Notes Miscellaneous - Kavon Stuart M.D. - 07/07/2013 4:58 PM CST Ambulatory Patient Summary [id number] [place] [address] Visit Information Name: HUSSEIN HERNANDEZ [facility] Number: [id number] Current Date: 07/07/2013 16:58:33 Physicians Attending Provider: KAVON STUART III, MD Primary Care Provider: KAVON STUART III, MD HUSSEIN HERNANDEZ has been given the following list of follow-up instructions, medication list,and patient education materials: Follow-up Instructions Your Medications Here is a list of your medications. It is important to take your medications as directed. Use a pillbox or chart to help remind you to take your medications. Please let your doctor or nurse know if you have problems taking your medications. Medication/Strength How to Take Indications/Special Instructions/Comments/Notes for Patient Medication Changes/Routing aspirin (aspirin 81 mg oral tablet) 1 Tablet(s), Oral, once a day omeprazole (omeprazole 40 mg oral delayed release capsule) 1 cap, Oral, once a day Take on empty stomach, then eat 45 minutes later Needs office visit for further refills Stop Taking the Following Medications: Medication list as of 07-07-13 16:58 Attention: If you have any medications at home that are not on this list, DO NOT take them until youcontact your provider for clarification. Give a copy of your medication list to your primary care provider. Update your medication list any time medications or doses are changed and carry your medication list at all times in case of emergency. Your Allergies & Intolerances Substance Reaction Symptoms Category Comments Nyquil Cold Medicine Drug Your Problem List Problem Status Onset Comments Hematuria, microscopic Active 02/23/2007 GERD [Gastroesophageal reflux disease] Active 2008 Personal History of Tobacco Use Active 07/04/11 quit in 1996 Your Upcoming Appointments Date Time Location Reason Provider 07/20/2013 11:00 [facility] Surgery OP Left knee arthroscopy, partial medial meniscectomy [facility] OR 1 08/06/2013 09:30 [facility] post-op left knee Marii ANTHONY, Adrián Mcgarry Attention: Contact your local Clinic if further appointment detail needed. Your Goals/Additional instructions: Source: [facility] POWERCHART Document Id: [id number] ATE EQUITY ANALYST Miscellaneous - Kavon Stuart M.D. - 07/07/2013 4:58 PM CST Ambulatory Discharge Medication List [address] [address] Visit Information Name: HUSSEIN HERNANDEZ [facility] Number: [id number] Visit Date: 07/07/2013 16:58:31 Attending Provider: KAVON STUART III, MD Primary Care Provider: KAVON STUART III, MD HUSSEIN HERNANDEZ ELIU has been given the following list of medications: Your Medications It is important to take your medications as directed. Use a pill box or chart to help remind you to take your medications. Please let your doctor or nurse know if you have problems taking your medications. Medication/Strength How to Take Indications/Special Instructions/Comments/Notes for Patient Medication Changes/Routing aspirin (aspirin 81 mg oral tablet) 1 Tablet(s), Oral, once a day omeprazole (omeprazole 40 mg oral delayed release capsule) 1 cap, Oral, once a day Take on empty stomach, then eat 45 minutes later Needs office visit for further refills Stop Taking the Following Medications: Medication list as of 07-07-13 16:58 Attention: If you have any medications at home that are not on this list, DO NOT take them until youcontact your provider for clarification. Give a copy of your medication list to your primary care provider. Update your medication list any time medications or doses are changed and carry your medication list at all times in case of emergency. Additional Information: Source: [facility] [employer] Document Id: [id number] ATE EQUITY ANALYST Miscellaneous - Ariana Eid L.P.NFarshad - 07/07/2013 4:34 PM CST Obstructive Sleep Apnea Obstructive Sleep Apnea Entered On: 07/07/2013 16:35 PRIVATE EQUITY ANALYST Performed On: 07/07/2013 16:34 PRIVATE EQUITY ANALYST by ARIANA EID LPN BALDO Screening Known Obstructive Sleep Apnea : No - NOT diagnosed with BALDO ARIANA EID LPN - 07/07/2013 16:34 PRIVATE EQUITY ANALYST BALDO Assessment Do you have high blood pressure or have you been told to take medication for high blood pressure? : No Frequency of Snoring : Never Frequency of Gasping, Choking, Snorting : Never Total Number of Historical Features : 0 Neck Circumference (cm) : 46/47 Total Sleep Apnea Clinical Score Calc : 10 ARIANA EID LPN - 07/07/2013 16:34 PRIVATE EQUITY ANALYST Source: [facility] [employer] FacilCHART Document Id: [id number] PRIVATE EQUITY ANALYST!10 ATE EQUITY ANALYST Miscellaneous - Ariana Eid L.P.N. - 07/07/2013 4:28 PM CST Adult Telecommunications Support Intake/History Adult Telecommunications Support Intake/History Entered On: 07/07/2013 16:34 PRIVATE EQUITY ANALYST Performed On: 07/07/2013 16:28 PRIVATE EQUITY ANALYST by ARIANA EID LPN Intake Chief Complaint : pre op with Dr. Mijares 07-20-13 Left knee scraping. Temperature Core : 36.6 DegC(Converted to: 97.9 DegF) Peripheral Pulse Rate : 69 /min Respiratory Rate : 16 /min Heart Rhythm : Regular Systolic Blood Pressure : 134 mmHg Diastolic Blood Pressure : 85 mmHg NIBP Mean : 101 mmHg BP Location : Right upper extremity Blood Pressure Cuff Size : Large SpO2 : 100 % Height : 182 cm(Converted to: 6 ft 0 inch(es), 71.65 inch(es)) Actual Weight : 110.9 kg(Converted to: 244 lb 8 oz) Weight Source : Standing scale Dosing Weight Clinic : 110.9 kg Clinic BSA : 2.37 Body Mass Index : 33.48 kg/m2 ARIANA EID LPN - 07/07/2013 16:28 PRIVATE EQUITY ANALYST General Info Information Given By : Patient Languages : Czech ARIANA EID LPN - 07/07/2013 16:28 PRIVATE EQUITY ANALYST Subjective Pain Symptoms : Yes ARIANA EID LPN - 07/07/2013 16:28 PRIVATE EQUITY ANALYST Pain Pain Assessment Grid Pain 1 Location : Knee Laterality : Left Intensity : 5 ARIANA EID LPN - 07/07/2013 16:28 PRIVATE EQUITY ANALYST Dependent Habits Tobacco Use/Currently Using : No Exposure to Tobacco Smoke : Care provider denies smoking in home Smoking Status : Former smoker ARIANA EID LPN - 07/07/2013 16:28 PRIVATE EQUITY ANALYST Tobacco Use Grid Type : Cigarettes Last Use : 1996 ARIANA EID LPN - 07/07/2013 16:28 PRIVATE EQUITY ANALYST Caffeine Use Grid Caffeine Use : None ARIANA EID LPN - 07/07/2013 16:28 PRIVATE EQUITY ANALYST Recreational Drug Use Grid Drug Use : None ARIANA EID LPN - 07/07/2013 16:28 PRIVATE EQUITY ANALYST Source: [facility] POWERCHART Document Id: [id number] PRIVATE EQUITY ANALYST!44 ATE EQUITY ANALYST documented in this encounter Plan of Treatment Upcoming Encounters Date Type Specialty Care Team Description 01/24/2022 Diagnostic Otorhinolaryngology Lara Snell Au.D. [address] [facility], [place] [phone] 01/29/2022 Office Visit Orthopedic Surgery Laurie Dumont, ANA , C.N.P., D.N.P. [address] [facility], [place] [phone] (Wo rk) documented as of this encounter Visit Diagnoses Not on filedocumented in this encounter
--- OUTSIDE RECORDS SUMMARY | 2022-01-23 19:39 | XMS_ITS | Encounter Summary ---
:1960 Author Organization [facility] Address [address] [place] [address] Care Team Providers Name Role Phone Unavailable Primary Care Provider Unavailable Encounter Details Date Type Department Care Team Description 04/27/2013 Hospital Encounter HX NO MAPPING Noe Mijares M.D. [address] [place], [place] [phone] (Wo rk) Social History Tobacco Use Types [...] or relatives? How often do you attend jewish or Patient refused 2021 taoism services? Do you belong to any clubs or No 12/20/2021 organizations such as jewish groups, unions, fraternal or athletic groups, or [...] slept in a care home (including now)? 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 0 01/1804/13/2021 documented as of this encounter Consult Notes Dk Mijares M.D. - 04/27/2013 1:59 PM CST [id number] HISTORY OF PRESENT ILLNESS Pilo is a 52-year-old man who is here in regards to status post a left knee arthroscopy and partial medial meniscectomy several years ago. He is noted at that time have some early degenerative changes and he had been doing well until recently when he twisted his knee when pulling out a deer and subsequently has had pain to the medial side of his knee. Initially it was very painful and now it is somewhat better still uncomfortable during many activities. PHYSICAL EXAMINATION Examination of his knee, his knee range of motion is from 0 to 120 degrees. He is stable to varus and valgus stress. Jerrod's negative. Anterior and mother repairer drawer is negative. He does have a mild effusion present today. There is significant tenderness along the medial joint line. RADIOGRAPHS X-Rays of his left knee demonstrate quite significant degenerative changes to the medial compartment. No other significant degenerative changes to knee is noted. IMPRESSION/REPORT/PLAN Pilo is a 52-year-old man who is dealing with medial sided left knee pain. I think this is likelydegenerative in nature. My suggestion is to try a Cortisone injection at this point and if it does not improve things think about consider an MRI of the knee to evaluate for meniscal pathology. PROCEDURE His left knee was then prepped with Iodine, needle was then placed in the lateral aspect of his knee, an injection of 2-cc of Kenalog and 2-cc of Lidocaine were placed. He tolerated this well. We will plan to see him back if things do not improve with an MRI of the left knee. TIME Patient's visit today was greater than 15-minutes long with more than 50% of it in counseling in regards to treatment options for his left knee pain. Dk Mijares M.D./vikki Electronically Signed By: DK MIJARES MD On: 05/04/2013 09:25 AM Source: [facility] MHSDOLBEYNONRADSYS Document Id: [id number] NSED MARINE ENGINEER documented in this encounter Miscellaneous Notes Miscellaneous - Dk Mijares M.D. - 04/27/2013 4:34 PM CST Ambulatory Patient Summary [id number] [place] [address] Visit Information Name: PILO HERNANDEZ [facility] Number: [id number] Current Date: 04/27/2013 16:34:57 Physicians Attending Provider: DK MIJARES MD Primary Care Provider: HARVINDER STUART III, MD PILO HERNANDEZ has been given the following list [...] the Following Medications: Medication list as of 04-27-13 16:34 Attention: If you have any medications at [...] Upcoming Appointments Date Time Location Reason Provider No Appointments found Attention: Contact your local Clinic if further appointment detail needed. Your Goals/Additional instructions: Source: [employer] Document Id: [id number] NSED MARINE ENGINEER Miscellaneous - Dk Mijares M.D. - 04/27/2013 4:34 PM CST Ambulatory Depart Summary [facility] [address] [address] Visit Information Name: PILO HERNANDEZ [facility] Number: [id number] Visit Date: 04/27/2013 16:34:56 Attending Provider: DK MIJARES MD Primary Care Provider: HARVINDER STUART III, MD PILO HERNANDEZ has been given the following list [...] the Following Medications: Medication list as of 04-27-13 16:34 Attention: If you have any medications at home that are not on this list, DO NOT take them until youcontact your provider for clarification. Give a copy of your medication list to your primary care provider. Update your medication list any time medications or doses are changed and carry your medication list at all times in case of emergency. Additional Information: Source: [employer] Document Id: [id number] NSED MARINE ENGINEER Miscellaneous - Roxy Shea R.N. - 04/27/2013 2:04 PM CST Adult Rating Clerk Intake/History Adult Rating Clerk Intake/History Entered On: 04/27/2013 14:06 LICENSED MARINE ENGINEER Performed On: 04/27/2013 14:04 LICENSED MARINE ENGINEER by ROXY SHEA aircraft electrician Chief Complaint : left knee pain, since twisting injury 1 month ago Temperature Core : 36.8 DegC(Converted to: 98.2 DegF) Peripheral Pulse Rate : 75 /min Heart Rhythm : Regular Systolic Blood Pressure : 122 mmHg Diastolic Blood Pressure : 78 mmHg NIBP Mean : 93 mmHg BP Location : Left upper extremity Blood Pressure Cuff Size : Large SpO2 : 99 % ROXY SHEA RN - 04/27/2013 14:04 LICENSED MARINE ENGINEER General Info Information Given By : Patient Preferred Communication Mode : Verbal Languages : Azeri ROXY SHEA RN - 04/27/2013 14:04 LICENSED MARINE ENGINEER Subjective Pain Symptoms : Yes ROXY SHEA RN - 04/27/2013 14:04 LICENSED MARINE ENGINEER Pain Pain Assessment Grid Pain 1 Location : Knee Laterality : Left ROXY SHEA RN - 04/27/2013 14:04 LICENSED MARINE ENGINEER Dependent Habits Tobacco Use/Currently Using : No Exposure to Tobacco Smoke : Care provider denies smoking in home Smoking Status : Former smoker ROXY SHEA RN - 04/27/2013 14:04 LICENSED MARINE ENGINEER Tobacco Use Grid Type : Cigarettes Last Use : 1996 ROXY SHEA RN - 04/27/2013 14:04 LICENSED MARINE ENGINEER Caffeine Use Grid Caffeine Use : None ROXY SHEA RN - 04/27/2013 14:04 LICENSED MARINE ENGINEER Recreational Drug Use Grid Drug Use : None ROXY SHEA RN - 04/27/2013 14:04 LICENSED MARINE ENGINEER Source: [facility] POWERCHART Document Id: [id number] LICENSED MARINE ENGINEER!37 NSED MARINE ENGINEER documented in this encounter Plan of Treatment Upcoming Encounters Date Type Specialty Care Team Description 01/24/2022 Diagnostic Otorhinolaryngology Lara Snell Au.D. [address] [place] [phone] 01/29/2022 Office Visit Orthopedic Surgery Laurie Dumont APRN , C.N.P., D.N.P. [address] [place], [place] [phone] (Wo rk) documented as of this encounter Visit Diagnoses Not on filedocumented in this encounter
--- OUTSIDE RECORDS SUMMARY | 2022-01-23 19:39 | XMS_ITS | Encounter Summary ---
:1960 Author Organization [facility] Address [address] [place] [address] Care Team Providers Name Role Phone Unavailable Primary Care Provider Unavailable Encounter Details Date Type Department Care Team Description 09/18/2013 Hospital Encounter HX [facility] Zohaib Montes M.D. [address] [address] [facility], [address] [place], [place] [address] (Wo rk) Social History Tobacco Use Types [...] you attend taoist or Patient refused 2021 nondenominational services? 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 0 01/1804/13/2021 documented as of this encounter Progress Notes Carlo Carey M.D. - 09/18/2013 11:52 AM CDT [id number] CHIEF COMPLAINT/REASON FOR VISIT Scaling rash on face, worsening. HISTORY OF PRESENT ILLNESS Mr. Whittaker is a very pleasant 52-year-old male who presents with his for evaluation of a 5 or more year history of a moderate severity scaly and red eruption on the medial eyebrows, nasolabial folds, mustache area, and chin area as well as a preauricular area bilaterally that does respond to twice daily ketoconazole 2% 4/desonide 0.05% lotion applied to the face prescribed by Dr. Denise. This does seem to get better in the sunlight. There are no other modifying factors or associated signs or symptoms and it is not now itchy. It does get better after twice daily application for a week then seems to recur if the medications stop. Mr. Whittaker wonders what this may be. Otherwise there is no previous personal history of rosacea nor severe acne requiring Accutane. Otherwise an integumentary and allergic/immunologic review of systems is negative except as otherwise remarked. ALLERGIES NyQuil cold medicine. PHYSICAL EXAMINATION GENERAL: Male in chair in no acute distress. EYES: Noninjected, nonicteric, OU. No blepharitis. No evidence of rosacea blepharitis. ENT: No cheilitis. No cheilosis. No perioral distribution of papules to suggest perioral facial dermatitis. No suspicious lip lesions or skin cancer. No solid facial edema of rosacea. SKIN: Skin examination performed of the scalp, head, neck, face, above collar, upper chest, upper back. Photo type 2 or 3. There is some sun damaged skin. On the medial eyebrows, eyebrows nasolabial folds, sides of the nose, chin and preauricular areas bilaterally there is some mild to moderate seborrheic scaling. There are some erythematous papules on the chin and also the preauricular area bilaterally. There is some sun damage of skin. IMPRESSION/REPORT/PLAN 1. Acne rosacea, grade 2, mild. 2. Acne rosacea, grade 1, moderate. 3. Seborrheic dermatitis, facial. 4. Sun damaged skin. As I believe that they are both features of seborrheic dermatitis, which is the predominant feature but also that of rosacea, I did discuss further protection with Vanicream 50 SPF sunblock twice dailyto face to prevent rosacea flares. The improvement seen during the summer may be due to the seborrheic dermatitis component getting better and more than offsetting any worsening of the rosacea component. Mr. Whittaker would like to simplify the regimen if at all possible for medications. I did explain thatthe seborrheic dermatitis and acne rosacea are both chronic inflammatory conditions of the skin, that while have no cure, may be more manageable but will likely require ongoing treatment periodically. We will stop the ketoconazole 2% 4/desonide 0.05% lotion this time. We will start Nizoral (ketoconazole) 2% shampoo. Use the shampoo to the scalp and also the face washto the face use every day and left on for 3-5 minutes before rinsing off. This will help the seborrheic dermatitis of the face. Additionally, we will use Cutivate (fluticasone 0.05%) topical lotion twice daily to the scaling areas the medial eyebrows, nasolabial folds and chin as needed for seborrheic dermatitis. To combat the redness of the rosacea which is the most problematic component of this for Mr. Whittaker,I have recommended Afrin original strength (oxymetazoline) 0.05% nasal spray. Please unscrew the capand use a cotton ball, wet the cotton ball and apply 3 times a day as needed to the red areas of theMaltese cross distribution of the face on the forehead, cheeks, nose and chin as needed for redness.Each application may last only 4 hours. May cause irritation. We do recommend Vanicream sunscreen twice daily to the face to prevent rosacea flares and reduce risk of skin cancer. PATIENT EDUCATION Ready to learn, no apparent learning barriers were identified; learning preferences include listening. Explained diagnosis and treatment plan; patient expressed understanding of the content. Carlo Carey M.D./ryan Electronically Signed By: CARLO CAREY MD On: 02/16/2014 11:42 PM Source: [facility] [place] MHSDOLBEYNONRADSYS Document Id: [id number] documented in this encounter Nursing Notes Frances Ring L.P.NFarshad - 03/29/2014 11:26 AM CST flu shot no contraindications flu shot given by AM, RN documentend by CHU dudley Electronically Signed By: FRANCES RING LPN On: 04/01/2014 11:26 AM Source: [facility] [place] POWERCHART Document Id: [id number] ESSIONAL DEVELOPMENT DIRECTOR Christian Oconnor L.P.N. - 09/18/2013 11:58 AM CDT Dermatology Intake Dermatology Intake Entered On: 09/18/2013 12:05 CDT Performed On: 09/18/2013 11:58 CDT by CHRISTIAN OCONNOR LPN General Accompanied By : Spouse Chief Complaint : Face skin rashes, flaky skin General Health Assessment : Good Date of Last Dermatology Visit : 09/17/2011 CDT Seen By : CHRISTIAN Beltre LPN - 09/18/2013 11:58 CDT Dermatology Intake History Pain Symptoms : No General Status : Same Presence of Changing Moles : No Other Skin Concerns : Yes Skin Problems Comment : Skin tightness, look at bumps Past Dermatology History : Basal cell carcinoma CHRISTIAN OCONNOR LPN - 09/18/2013 11:58 CDT Dependent Habits Tobacco Use/Currently Using : No Tobacco Use/Last 12 months : No Tobacco Use/Advised to Quit : No Exposure to Tobacco Smoke : Care provider denies smoking in home Smoking Status : Former smoker CHRISTIAN OCONNOR LPN - 09/18/2013 11:58 CDT Tobacco Use Grid Type : Cigarettes Last Use : 1996 CHRISTIAN OCONNOR [facility] - 09/18/2013 11:58 CDT Alcohol Use : No CHRISTIAN OCONNOR [facility] - 09/18/2013 11:58 CDT Caffeine Use Grid Caffeine Use : None CHRISTIAN OCONNOR [facility] - 09/18/2013 11:58 CDT Recreational Drug Use Grid Drug Use : None CHRISTIAN OCONNOR [facility] - 09/18/2013 11:58 CDT [facility] Document Id: [id number] CDT!31 documented in this encounter Plan of Treatment Upcoming Encounters Date Type Specialty Care Team Description 01/24/2022 Diagnostic Otorhinolaryngology Lara Snell Au.D. [address] [place], [place] [phone] 01/29/2022 Office Visit Orthopedic Surgery Laurie Dumont APRN , C.N.P., D.N.P. [address] [place], [place] [phone] (Wo rk) documented as of this encounter Visit Diagnoses Not on filedocumented in this encounter
--- OUTSIDE RECORDS SUMMARY | 2022-01-23 19:39 | XMS_ITS | Encounter Summary ---
:1960 Author Organization [facility] Address [address] [place] [address] Care Team Providers Name Role Phone Unavailable Primary Care Provider Unavailable Encounter Details Date Type Department Care Team Description 05/04/2015 Hospital Encounter HX [facility] E[facility] Esa Francis M.D. [address] [place], [place] [phone] (Wo rk) Social History [...] you attend religious or Patient refused 2021 confucianism services? 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 documented as of this encounter Last Filed Vital Signs Vital Sign Reading Time Taken Comments Blood Pressure 124/80 05/04/2015 1:54 PM IT SECURITY CONSULTING DIRECTOR Pulse 79 05/04/2015 1:54 PM IT SECURITY CONSULTING DIRECTOR Temperature - - Respiratory Rate 16 05/04/2015 1:54 PM IT SECURITY CONSULTING DIRECTOR Oxygen Saturation - - Inhaled Oxygen Concentration - - Weight - - Height 183 cm (6' 0.05) 05/04/2015 1:54 PM IT SECURITY CONSULTING DIRECTOR Body Mass Index - - documented in this encounter Medications at Time of Discharge Medication Sig Dispensed Refills Start Date End Date ASPIRIN ORAL Take 1 tablet by mouth daily. 0 01/1804/13/2021 documented as of this encounter Consult Notes Esa Francis M.D. - 05/04/2015 1:44 PM CST [id number] Mr. Whittaker is a pleasant 54-year-old gentleman. CHIEF COMPLAINT/REASON FOR VISIT Right nosebleeds, self referred. HISTORY OF PRESENT ILLNESS He reports a few year history of a right-sided nosebleed. They can be any time of year but seem to be worse in the winter. It bleeds very easily with the slightest abrasion or can occur spontaneously. The nosebleeds last between 2 to 4 minutes, severity usually mild to moderate. They seem to resolve with pressure. He does tend to dig often which sometimes will precipitate the bleeding. He has rare episodes on the left. No history of coagulopathy. ADULT NEW PATIENT QUESTIONNAIRE: The NPQ is filled out by the patient and is reviewed including 10-system review of systems, past medical history, surgical history, social history, and family history. SOCIAL HISTORY Quit smoking in 1995. PHYSICAL EXAMINATION GENERAL APPEARANCE: Normal. OTOSCOPIC: Normal. INTRANASAL: Septum midline, healthy mucosa. There is a small excoriation on the right anterior septum approximately 1 to 2 mm. There is a tiny focus of fresh blood more posterior on the mid septum. Phenylephrine and lidocaine applied with a spray and cottonoid for approximately 15 minutes. On removal there is some fresh blood from both of those sites. No other abnormalities noted following decongestion. ORAL CAVITY: Normal. OROPHARYNX: Normal. NASOPHARYNX/HYPOPHARYNX: Seen moderately well only due to gag, no abnormalities noted. LARYNX: Normal. NECK: Normal. CERVICAL LYMPH NODES: Normal. THYROID: Not palpably enlarged. SALIVARY GLANDS: Normal. VOICE: Normal. IMPRESSION/REPORT/PLAN Right anterior epistaxis, Kiesselbach's plexus, also single focus posteriorly. I discussed option ofconservative measures including Vaseline and /or saline gel, I encouraged humidification and hydration. Option of silver nitrate cautery discussed with risks of scarring, crusting and perforation. He voiced understanding and agreement and wished to proceed. He had a family member that had this and it solved the problem. PROCEDURE Right anterior nasal septal mucosal cautery, 2 foci. Phenylephrine and lidocaine are previously applied. Procedural pause completed. Applied focally to the silver nitrate applied focally to each site for several seconds. Well tolerated. Follow up as needed if any persistent bleeding. He voiced understanding and agreement. Esa Fracnis M.D./ryan Electronically Signed By: ESA FRANCIS MD On: 05/11/2015 01:00 PM Source: [facility] MHSDOLBEYNONRADSYS Document Id: [id number] SECURITY CONSULTING DIRECTOR documented in this encounter Miscellaneous Notes Miscellaneous - Allegra Desai, CFarshadMMagno - 05/08/2015 8:57 AM CST *General Message From: AL[facility]GRA DESAI [facility] Sent: 05/08/2015 08:57:35 IT SECURITY CONSULTING DIRECTOR Subject: *General Message patient called had nose cauterized and he blew his nose and it started bleeding he did get it to stop. Instructed patient to come back in if he has any further problems and to refrain from blowing hisnose if at all possible for the next week to let that heal Source: [facility] POWERCHART Document Id: [id number] Electronically signed by Hung [facility] Call Or Contact Centre Coach [id number] at 10/14/2016 9:36 AM CDT Miscellaneous - Roxy Olguin R.N. - 05/04/2015 1:54 PM CST Adult Solder Cream Maker Intake/History Adult Solder Cream Maker Intake/History Entered On: 05/04/2015 13:58 IT SECURITY CONSULTING DIRECTOR Performed On: 05/04/2015 13:54 IT SECURITY CONSULTING DIRECTOR by ROXY OLGUIN thread cutter Chief Complaint : frequent bloody nose x 2 years, worse in winter months Temperature Core : 36.7 DegC(Converted to: 98.1 DegF) Peripheral Pulse Rate : 79 /min Respiratory Rate : 16 /min Heart Rhythm : Regular Systolic Blood Pressure : 124 mmHg Diastolic Blood Pressure : 80 mmHg NIBP Mean : 95 mmHg BP Location : Left upper extremity Blood Pressure Cuff Size : Regular SpO2 : 98 % Height : 183 cm(Converted to: 6 ft 0 inch(es), 72 inch(es)) ROXY OLGUIN RN - 05/04/2015 13:54 IT SECURITY CONSULTING DIRECTOR General Info Information Given By : Patient Preferred Communication Mode : Verbal Languages : German Is Patient Female and 13-50 no hysterectomy : No ROXY OLGUIN RN - 05/04/2015 13:54 IT SECURITY CONSULTING DIRECTOR Subjective Pain Symptoms : No ROXY OLGUIN RN - 05/04/2015 13:54 IT SECURITY CONSULTING DIRECTOR Dependent Habits Exposure to Tobacco Smoke : Care provider denies smoking in home, Other: former Smoking Status : Former smoker Tobacco 2A : Yes Tobacco Use/Currently Using : No Tobacco Use/Last 30 Days : No Tobacco Use/Last 12 months : No ROXY OLGUIN RN - 05/04/2015 13:54 IT SECURITY CONSULTING DIRECTOR Caffeine Use Grid Caffeine Use : None ROXY OLGUIN RN - 05/04/2015 13:54 IT SECURITY CONSULTING DIRECTOR Recreational Drug Use Grid Drug Use : None ROXY OLGUIN RN - 05/04/2015 13:54 IT SECURITY CONSULTING DIRECTOR Source: [facility] POWERCHART Document Id: [id number] IT SECURITY CONSULTING DIRECTOR!34 SECURITY CONSULTING DIRECTOR Miscellaneous - Rafael Nam - 04/18/2015 1:19 PM CST Reminder Msg From: RAFAEL NAM ([place] Colonoscopy Pool) To: [place] Colonoscopy Pool; Sent: 04/18/2015 13:19:07 IT SECURITY CONSULTING DIRECTOR Show up: 09/13/2019 13:19:00 CDT Subject: Reminder Msg Due Date/Time: 12/13/2019 13:19:00 CDT Please Remember to: Pt. has Colonoscopy DUE: 12/13/2019 Due 10 years from last procedure (12/12/2009). PATIENT: ( ) Call Patient ( ) Ask Patient to ( ) ( ) Call Relative ( ) Schedule Patient ( ) ( ) Call for Corporate Relations Director ( ) Follow up on Results ( ) Other: PROVIDER: ( ) Call Physician ( ) Call Pharmacist ( ) Call Lab ( ) Other: Special Instructions: Comments: Source: [facility] POWERCHART Document Id: [id number] Electronically signed by Conversion, [facility] Call Or Contact Centre Coach [phone] at 10/14/2016 9:37 AM CDT documented in this encounter Plan of Treatment Upcoming Encounters Date Type Specialty Care Team Description 01/24/2022 Diagnostic Otorhinolaryngology Lara Snell Au.D. [address], [place] [phone] 01/29/2022 Office Visit Orthopedic Surgery Laurie Dumont APRN , C.N.P., D.N.P. [address], [place] [phone] (Wo rk) documented as of this encounter Visit Diagnoses Not on filedocumented in this encounter
--- OUTSIDE RECORDS SUMMARY | 2022-01-23 19:39 | XMS_ITS | Encounter Summary ---
:1960 Author Organization [facility] Address [address] [place] [address] Care Team Providers Name Role Phone Unavailable Primary Care Provider Unavailable Encounter Details Date Type Department Care Team Description 05/02/[address] [facility] Ang Hernandez, [employer] SUPERVISOR [address], [place] [phone] (Wo rk) Social History [...] or relatives? How often do you attend yarsanism or Patient refused 2021 shinto services? Do you belong to any clubs or No 12/20/2021 organizations such as yarsanism groups, unions, fraternal or athletic groups, or [...] at Date Recorded Male 06/23/2021 7:46 PM DEPUTY OF COUNTER INTELLIGENCE documented as of this encounter Last Filed Vital Signs Vital Sign Reading Time Taken Comments Blood Pressure 126/80 05/02/2016 10:55 AM DEPUTY OF COUNTER INTELLIGENCE Pulse 80 05/02/2016 10:55 AM DEPUTY OF COUNTER INTELLIGENCE Temperature - - Respiratory Rate 16 05/02/2016 10:55 AM DEPUTY OF COUNTER INTELLIGENCE Oxygen Saturation - - Inhaled Oxygen Concentration - - Weight 117 kg (258 lb 6.1 oz) 05/02/2016 10:55 AM DEPUTY OF COUNTER INTELLIGENCE Height 183 cm (6' 0.05) 05/02/2016 10:55 AM DEPUTY OF COUNTER INTELLIGENCE Body Mass Index 35 05/02/2016 10:55 AM DEPUTY OF COUNTER INTELLIGENCE documented in this encounter Medications at Time of Discharge Medication Sig Dispensed Refills Start Date End Date ASPIRIN ORAL Take 1 tablet by mouth daily. 0 01/1804/13/2021 documented as of this encounter Consult Notes Nohemi Yoon APRN, C.N.P. - 05/02/2016 11:55 AM CST Complete Evaluation CHIEF COMPLAINT/REASON FOR VISIT left shoulder pain-moving a cart and started having shoulder pain DOI: 04/23/16 [employer] HISTORY OF PRESENT ILLNESS Employer: Why Not Give Back DOI: 04/23/2016 Position: Emanuel Savage is a 55-year old male here for evaluation of left shoulder pain. Onset was December,. 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 He reached overhead to grab it, and felt a sharp pain in his left shoulder, knife like in quality. As the day went on, it felt slightly better. Over the following days, he continued to work full duty, but was very careful with how he used the arm. Things have slowly and steadily improved since than, with only 1 incident causing sharp acute pain in the same area, this occurred about 1 month after initial incident. He was pushing a cart and it hit sudden resistance, jarring the shoulder. Pain again was sharp, but very short-lived. Today, rates pain in the shoulder very minimal. It is not present right now, he will feel a very mild ache occasionally, or if he moves wrong. Has experienced a few night throbs. Location is more anterior, lateral shoulder. He is not regularly taking any NSAIDs or other medications. He continues towork at full duty, and is noticing slow but steady improvement. He is being seen today because of the duration that the symptoms have been present. He denies any previous trauma or pain in either shoulder. Apart from arthritic pain in the left knee, notes no other joint pains. Patient completed the Occupational Medicine Consultation - Patient History intake form, please see this document from today's visit for details. MEDICATIONS aspirin 81 mg oral tablet, 1 tab(s), PO, Daily Cordran 0.05% topical lotion, 1 matteo, to seborrhoeic dermatitis of face WHEN VERY ITCHY 1xDay as needed., Topical, 2xDay, 3 refills Nizoral 2% topical shampoo, 1 matteo, use as shampoo to scalp and face wash. leave on for 3-5 minutes then rinse., Topical, Daily, 11 refills omeprazole 40 mg oral delayed release capsule, 40 mg, 1 cap(s), Pt needs to establish before next refill, PO, Daily, 0 refills Xolegel 2% topical gel, 1 matteo, to redness and scaling of facial seborrhoeic dermatitis., Topical, Daily, 5 refills ALLERGIES Nyquil Cold Medicine PAST MEDICAL HISTORY Chronic GERD [Gastroesophageal reflux disease] Personal History of Tobacco Use Historical No historical problems PROCEDURES/SURGICAL HISTORY Arthroscopy of knee with medial meniscectomy (07/20/2013), Cystoscopy (07/15/2011), Esophagoscopy, rigid or flexible; with biopsy, single or multiple (02/27/2011), Colonoscopy, flexible, proximal to splenic flexure; with biopsy, single or multiple.. (Week of 12/12/2009), Arthroscopy (2009), Lipid panel (08/29/2006), Fecal occult blood screen (04/22/2006), Wrist fracture - open (1994), Repair of rectal fistula (1988). SOCIAL HISTORY Tobacco: history Smoking Status: quit in 1995 Alcohol: 4 drinks per week Recreation Drugs: denies SYSTEMS REVIEW GENERAL: No fever, chills, malaise. SKIN: No ecchymosis, rash, lesions of concern. HEART: No chest pain, palpitations, diaphoresis. LUNGS: No shortness of breath, new cough, sputum production, hemoptysis, painful breathing. MUSCULOSKELETAL: As described above. NEUROLOGIC: No loss of consciousness, hea daches, numbness, tingling, weakness. OCCUPATIONAL HISTORY Patient works for [employer] on a full-time status for 36 years. VITAL SIGNS HR: 80 RR: 16 BP: 126 / 80 HT: 183 cm WT: 117.2 kg BMI: 35 PHYSICAL EXAMINATION GENERAL: Alert, relaxed male not acutely distressed. HEENT: Negative. LUNGS: Clear to auscultation in all lung polk. HEART: S1, S2. No murmurs, gallops or rubs. MUSCULOSKELETAL: Left shoulder without obvious lesion or abnormality. No visible erythema, notable edema or ecchymosis. Localized tenderness very mild over the long biceps tendon, not reproducible anywhere else. Flexion, extension, abduction, adduction are complete RC provocation with pain only during supraspinatus testing, 5/5 strength and pain is mild. PositiveNeer's, negative Canales. Also with mild pain during Pa's test, 5/5 strength. Speed's and yergasons with 5/5 strength and no pain. Internal and external rotation are full, no pain noticed. NEUROVASCULAR: Finger abduction, thumb opposition are normal. Sensation is intact. Radial pulse 2+ and symmetric with cap refill < 3 seconds. IMPRESSION/REPORT/PLAN Pain Shoulder L Maximum Medical Improvement: no Permanent Partial Disability: undetermined Work Related: yes PLAN: Left shoulder pain, with some very mild sings of impingement, some tenderness over the bicepstendon, but strength and provocation are very reassuring. Overall, with time, I suspect his symptomswould eventually resolve. However, he may see a more rapid resolution with some direction from PT, goal would really to decrease pain and increase strength, as his function has remained quite good. UseNSAIDs if needed, otherwise full activities as he tolerates. Return after 2-3 visits with PT for further discussion. Please see attached workability for further details. He expressed understanding and agrees with plan. This was a 45 minute visit, 20 minutes were spent on counseling and coordination of care. Thank you for letting me be involved in your care. Ordered: OV New Pt Level 4 - 25268 - 45 min Electronically Signed By: NOHEMI YOON APRN, CNP On: 05/02/2016 12:07 PM Source: [facility] POWERCHART Document Id: [id number] TY OF COUNTER INTELLIGENCE documented in this encounter Miscellaneous Notes Miscellaneous - Nohemi Yoon APRN, C.N.P. - 05/02/2016 11:55 AM DEPUTY OF COUNTER INTELLIGENCE Ambulatory Patient Summary [facility] [address], [address] [place], [place] [id number] Visit Information Name: MARY HUSSEIN NOWAK [facility] Number: [id number] Current Date: 05/02/2016 11:55:44 Physicians Attending Provider: NOHEMI YOON APRN, CNP Primary Care Provider: WILBERTO OLGUIN [employer]ATHER SORTER MARCY WHITTAKERMOND ELIU has been given the following list [...] tablet) 1 Tablet(s), Oral, once a day flurandrenolide topical (Cordran 0.05% topical lotion) 1 matteo, Topical, two times a day to seborrhoeic dermatitis of face WHEN VERY ITCHY 1xDay as needed. ketoconazole topical (Xolegel 2% topical gel) 1 matteo, Topical, once a day to redness and scaling of facial seborrhoeic dermatitis. ketoconazole topical (Nizoral 2% topical shampoo) 1 matteo, Topical, once a day use as shampoo to scalpand face wash. leave on for 3-5 minutes then rinse. omeprazole (omeprazole 40 mg oral delayed release capsule) 1 cap, Oral, once a day Pt needs to establish before next refill Stop Taking the Following Medications: Medication list as of 05-02-16 11:55 Attention: If you have any medications at home that are not on this list, DO NOT take them until youcontact your provider for clarification. Give a copy of your medication list to your primary care provider. Update your medication list any time medications or doses are changed and carry your medication list at all times in case of emergency. Electronically Signed By: NOHEMI YOON APRN, CNP Signed On:02-MAY-2016 11:55:41 Your Allergies & Intolerances Substance Reaction Symptoms Category Comments Nyquil Cold Medicine Drug Your Problem List Problem Status Onset Comments Hematuria, microscopic Active 02/23/2007 GERD [Gastroesophageal reflux disease] Active 2008 Personal History of Tobacco Use Active 07/04/11 quit in 1996 Your Upcoming Appointments Date Time Location Provider 06/08/2016 11:30 [facility] Gerardo Gordillo MD, Jamarcus Kaplan Attention: Contact your local Clinic if further appointment detail needed. Consider Using Patient Online Services Patient Online [employer] is a secure online and Mobile application that lets you: ?? View lab and test results ?? View portions of your medical record including clinical notes, immunizations and discharge summaries ?? Request an appointment or medication refill ?? Review your appointment schedule ?? Send secure messages to your care team Its easy to create an account if you dont have one. Go to [email or web address] and click on Create Your Account. Then, follow the directions to complete the online form. Youll be asked for your [facility] number which you can find at the top of this document. Your Goals/Additional instructions: Source: [facility] POWERCHART Document Id: [id number] TY OF COUNTER INTELLIGENCE Miscellaneous - Nohemi Yoon APRN, C.N.P. - 05/02/2016 11:55 AM DEPUTY OF COUNTER INTELLIGENCE Ambulatory Discharge Medication List [facility] [address], [address] [place], [place] [id number] Visit Information Name: HUSSEIN WHITTAKER [facility] Number: [id number] Current Date: 05/02/2016 11:55:42 Attending Provider: NOHEMI YOON APRN, CNP Primary Care Provider: WILBERTO OLGUIN [employer] SORTER HUSSEIN WHITTAKER has been given the following list of [...] tablet) 1 Tablet(s), Oral, once a day flurandrenolide topical (Cordran 0.05% topical lotion) 1 matteo, Topical, two times a day to seborrhoeic dermatitis of face WHEN VERY ITCHY 1xDay as needed. ketoconazole topical (Xolegel 2% topical gel) 1 matteo, Topical, once a day to redness and scaling of facial seborrhoeic dermatitis. ketoconazole topical (Nizoral 2% topical shampoo) 1 matteo, Topical, once a day use as shampoo to scalpand face wash. leave on for 3-5 minutes then rinse. omeprazole (omeprazole 40 mg oral delayed release capsule) 1 cap, Oral, once a day Pt needs to establish before next refill Stop Taking the Following Medications: Medication list as of 05-02-16 11:55 Attention: If you have any medications at home that are not on this list, DO NOT take them until youcontact your provider for clarification. Give a copy of your medication list to your primary care provider. Update your medication list any time medications or doses are changed and carry your medication list at all times in case of emergency. Electronically Signed By: NOHEMI YOON APRN, CNP Signed On:02-MAY-2016 11:55:41 Additional Information: Source: [facility] POWERCHART Document Id: [id number] TY OF COUNTER INTELLIGENCE Miscellaneous - Arden Gómez L.PFarshadN. - 05/02/2016 10:55 AM CST Adult [employer] Supervisor Intake/History Adult [employer] Supervisor Intake/History Entered On: 05/02/2016 11:05 DEPUTY OF COUNTER INTELLIGENCE Performed On: 05/02/2016 10:55 DEPUTY OF COUNTER INTELLIGENCE by ARDEN GÓMEZ LPN Intake Chief Complaint : left shoulder pain-moving a cart and started having shoulder pain DOI: 04/23/16 [employer] Peripheral Pulse Rate : 80 /min Respiratory Rate : 16 /min Heart Rhythm : Regular Systolic Blood Pressure : 126 mmHg Diastolic Blood Pressure : 80 mmHg NIBP Mean : 95 mmHg BP Location : Right upper extremity Blood Pressure Cuff Size : Large Height : 183 cm(Converted to: 6 ft 0 inch(es), 72 inch(es)) Actual Weight : 117.2 kg(Converted to: 258 lb 6 oz) Weight Source : Standing scale Dosing Weight Clinic : 117.2 kg Clinic BSA : 2.44 Body Mass Index : 35 kg/m2 ARDEN GÓMEZ [facility] 05/02/2016 10:55 DEPUTY OF COUNTER INTELLIGENCE General Info Information Given By : Patient Languages : Vietnamese Is Patient Female and 13-50 no hysterectomy : No ARDEN GÓMEZ [employer] 05/02/2016 10:55 DEPUTY OF COUNTER INTELLIGENCE Subjective Pain Symptoms : Yes ARDEN GÓMEZ [facility] 05/02/2016 10:55 DEPUTY OF COUNTER INTELLIGENCE Pain Scale Pain Scale Verbal 0-10 : Open ARDEN GÓMEZ [facility] 05/02/2016 10:55 DEPUTY OF COUNTER INTELLIGENCE Pain Pain Assessment Grid Pain 1 Location : Shoulder Laterality : Left Intensity : 2 ARDEN GÓMEZ [facility] 05/02/2016 10:55 DEPUTY OF COUNTER INTELLIGENCE Dependent Habits Exposure to Tobacco Smoke : Care provider denies smoking in home, Other: former Smoking Status : Never smoker Tobacco 2A : No Tobacco Use/Currently Using : No Tobacco Use/Last 30 Days : No Tobacco Use/Last 12 months : No ARDEN GÓMEZ [facility] 05/02/2016 10:55 DEPUTY OF COUNTER INTELLIGENCE Caffeine Use Grid Caffeine Use : None ARDEN GÓMEZ [facility] 05/02/2016 10:55 DEPUTY OF COUNTER INTELLIGENCE Recreational Drug Use Grid Drug Use : None ARDEN GÓMEZ [employer] SUPER[employer]OR 05/02/2016 10:55 DEPUTY OF COUNTER INTELLIGENCE Source: [facility] POWERCHART Document Id: [id number] DEPUTY OF COUNTER INTELLIGENCE!44 TY OF COUNTER INTELLIGENCE documented in this encounter Plan of Treatment Upcoming Encounters Date Type Specialty Care Team Description 01/24/2022 Diagnostic Otorhinolaryngology Lara Snell Au.D. [address], [place] [phone] 01/29/2022 Office Visit Orthopedic Surgery Laurie Dumont, [employer]PARTMENT SUPERVISOR , C.N.P., D.N.P. [address], [place] [phone] (Wo rk) documented as of this encounter Visit Diagnoses Not on filedocumented in this encounter
--- OUTSIDE RECORDS SUMMARY | 2022-01-23 19:39 | XMS_ITS | Encounter Summary ---
:1960 Author Organization [facility] Address [address] [place] [address] Care Team Providers Name Role Phone Unavailable Primary Care Provider Unavailable Encounter Details Date Type Department Care Team Description 02/07/2015 Hospital Encounter HX [facility] Nhan Polk M.D. [address] [place] [phone] (Wo rk) Social [...] or relatives? How often do you attend samaritan or Patient refused 2021 protestant services? Do you belong to any clubs or No 12/20/2021 organizations such as samaritan groups, unions, fraternal or athletic groups, or [...] or slept in a detention (including now)? Sex Assigned at Date Recorded Male 06/23/2021 7:46 PM FAMILY PRACTICE MEDICAL DOCTOR documented as of this encounter Last Filed Vital Signs Vital Sign Reading Time Taken Comments Blood Pressure 126/80 02/07/2015 3:10 PM CDT Pulse 64 02/07/2015 3:10 PM CDT Temperature - - Respiratory Rate 16 02/07/2015 3:10 PM CDT Oxygen Saturation - - Inhaled Oxygen Concentration - - Weight 108 kg (237 lb 10.5 oz) 02/07/2015 3:10 PM CDT Height 183 cm (6' 0.05) 02/07/2015 3:10 PM CDT Body Mass Index 32.19 02/07/2015 3:10 PM CDT documented in this encounter Medications at Time of Discharge Medication Sig Dispensed Refills Start Date End Date ASPIRIN ORAL Take 1 tablet by mouth daily. 0 01/1804/13/2021 documented as of this encounter H&P Notes Jason Osullivan M.D. 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 No active concerns. Health history reviewed in detail with patient and was negative. 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 MEDICATIONS aspirin 81 mg oral tablet, 1 tab(s), PO, Daily Cutivate 0.05% topical lotion, 1 matteo, to seborrhoeic dermatitis of face PRN., Topical, Daily, 0 refills Nizoral 2% topical shampoo, 1 matteo, use as shampoo to scalp and face wash. leave on for 3-5 minutes then rinse., Topical, Daily, 11 refills omeprazole 40 mg oral delayed release capsule, 40 mg, 1 cap(s), Take on empty stomach, then eat 45 minutes later, PO, Daily, 1 refills ALLERGIES Nyquil Cold Medicine PAST MEDICAL [...] Repair of rectal fistula (1988). SOCIAL HISTORY Date Time: 02/07/2015 15:10 Tobacco: Smoking Status: Former smoker Exposure: Care provider denies smoking in home, Other: former Alcohol: Use: Yes Recreational Drugs: Use: None Type: No Results Found FAMILY HISTORY Mother ( at 68 year(s)):Positive: Hypercholesterolemia; Hypertension; Myocardial infarction Father: Negative: Sister: Negative: Brother (Jayjay):Positive: CA - Cancer of prostate Brother: Negative: Brother: Negative: Sister: Negative: Sister: Negative: Sister: Negative: SYSTEMS REVIEW As per HPI, otherwise negative. VITAL SIGNS T: 37.0 ??C (Core) HR: 64 RR: 16 BP: 126 / 80 HT: 183 cm WT: 107.8 kg BMI: 32.19 PHYSICAL EXAMINATION GENERAL: Patient is in no distress. Capable of full communication without difficulty. Patient is polite and cooperative. Appropriately dressed and normal hygiene. HEENT: Normocephalic. EOMI, PERRLA, Canals patent, TMs normal. Oropharynx without lesion of mucosa.Pharyngeal rises symmetrically without exudate. NECK: No nodes, no thyromegaly. No bruit auscultated. HEART: Regular rate and rhythm. No murmurs, gallops or rubs noted. LUNGS: Clear to auscultation bilaterally. No expiratory wheeze. No accessory muscles of respirationnoted. ABDOMEN: Nontender to palpation. No hepato-splenomegaly. No mass. Normal bowel sounds in all 4 quadrants. EXTREMITIES: No neurovascular compromise. No cyanosis, clubbing or edema. No abnormal limb length. NEUROLOGIC: CN II-IIX intact. Gait stable. Speech appropriate. PSYCH: Mood upbeat, pleasant. Affect is congruent. LAB RESULTS -----URINE/STOOL----- UA Color: Yellow 02/07/15 UA Clarity: Clear 02/07/15 UA Spec Grav: 1.020 02/07/15 UA pH: 7.0 02/07/15 UA Protein: Trac 02/07/15 UA Glucose: Negativ 02/07/15 UA Ketones: Negativ 02/07/15 UA Bili: Negativ 02/07/15 UA Urobilinogen: 1.0 02/07/15 UA Blood: Smal Abnormal 02/07/15 UA Nitrite: Negativ 02/07/15 UA Leuk Est: Negativ 02/07/15 IMPRESSION/REPORT/PLAN 1. DOT Exam Patient meets standards in 49 CFR 391.41 and qualifies for a 2 year certificate. Electronically Signed By: JASON OSULLIVAN MD On: 02/07/2015 03:48 PM Source: [facility] [employer] Document Id: [id number] documented in this encounter Procedure Notes Breann Rivera, L.P.N. - 02/07/2015 3:16 PM CDT Vision Testing Vision Testing Entered On: 02/07/2015 15:17 CDT Performed On: 02/07/2015 15:16 CDT by BREANN RIVERA Vision Testing Corrective Lenses : None Color Blind Correct Plates : 14 Color Vision : Pass Eye, Right w/o Correction : 20/25 Eye, Left w/o Correction : 20/25 Eyes, Both w/o Correction : 20/25 Field of Vision Right : 85 degrees Field of Vision Left : 85 degrees BREANN RIVERA - 02/07/2015 15:16 CDT Source: [facility] [employer] Document Id: [id number] CDT!10 documented in this encounter Miscellaneous Notes Telephone Encounter - Conversion, Historical Provider Ser - 09/19/2016 5:31 PM CDT *Phone Message Document Contains Addenda Addendum by ARIANA EID LPN on September 23, 2016 13:58:50 CDT left message for pt to call us back again for message below and noted the reason why they were orderd. Addendum by ARLEY HOPKINS CMA on September 20, 2016 09:52:20 CDT LM for pt to call back. Labs are ordered for prevenitive care and per Soren pt can refuse if he wishes but it is advised. From: ANNETTE ESPINAL ([place] [facility] Dial Painter) To: [place] [facility] Nurse Coy; Sent: 09/19/2016 17:31:08 CDT Subject: *Phone Message Caller is: ( x ) Patient ( ) Mother ( ) Father ( ) Spouse ( ) Daughter ( ) Son ( ) Pharmacy ( ) Other: Physician: Soren Patient MRN #: Reason for Call: Lab orders in queue Message: Please give Hussein a call regarding lab orders as he is curious as to why he needs these done. His number is [phone]. Advice/Action: Source used: ( ) Verbalizes understanding [...] back cell phone number ( ) Source: [facility] POWERCHART Document Id: [id number] LY PRACTICE MEDICAL DOCTOR Miscellaneous - Breann Rivera, L.P.N. - 02/07/2015 3:10 PM CDT Adult Pattern Setter Intake/History Adult Pattern Setter Intake/History Entered On: 02/07/2015 15:15 CDT Performed On: 02/07/2015 15:10 CDT by BREANN RIVERA Intake Chief Complaint : DOT recertification for escamilla equipment Temperature Core : 37.0 DegC(Converted to: 98.6 DegF) Peripheral Pulse Rate : 64 /min Respiratory Rate : 16 /min Heart Rhythm : Regular Systolic Blood Pressure : 126 mmHg Diastolic Blood Pressure : 80 mmHg NIBP Mean : 95 mmHg BP Location : Left upper extremity Blood Pressure Cuff Size : Large Height : 183 cm(Converted to: 6 ft 0 inch(es), 72 inch(es)) Actual Weight : 107.8 kg(Converted to: 237 lb 11 oz) Weight Source : Standing scale Dosing Weight Clinic : 107.8 kg Clinic BSA : 2.34 Body Mass Index : 32.19 kg/m2 BREANN RIVERA - 02/07/2015 15:10 CDT General Info Information Given By : Patient Languages : Divehi Is Patient Female and 13-50 no hysterectomy : No BREANN RIVERA 02/07/2015 15:10 CDT Subjective Pain Symptoms : No BREANN RIVERA 02/07/2015 15:10 CDT Dependent Habits Tobacco Use/Currently Using : No Exposure to Tobacco Smoke : Care provider denies smoking in home, Other: former Smoking Status : Former smoker BREANN RIVERA 02/07/2015 15:10 CDT Tobacco Use Grid Type : Cigarettes BREANN RIVERA 02/07/2015 15:10 CDT Alcohol Use : Yes BREANN RIVERA 02/07/2015 15:10 CDT Caffeine Use Grid Caffeine Use : None BREANN RIVERA 02/07/2015 15:10 CDT Recreational Drug Use Grid Drug Use : None BREANN RIVERA 02/07/2015 15:10 CDT [facility] Document Id: [id number] CDT!38 documented in this encounter Plan of Treatment Upcoming Encounters Date Type Specialty Care Team Description 01/24/2022 Diagnostic Otorhinolaryngology Lara Snell Au.D. [address] [place] [phone] 01/29/2022 Office Visit Orthopedic Surgery Laurie Dumont APRN , C.N.P., D.N.P. [address] [place] [phone] (Wo rk) documented as of this encounter Procedures Procedure Name Priority Date/Time Associated Diagnosis Comme nts DIPSTICK, U Routine 02/07/2015 3:07 PM Results f or this CDT procedure are i n the results section . documented in this encounter Results (ABNORMAL) Dipstick, Urine (02/07/2015 3:07 PM CDT) [facility] Method Time Signature HXUr Color Yellow Colorless POWERCHART Clarity Clear Clear POWERCHART Glucose Negative Negative POWERCHART MGDL HXBILIRUBIN Negative Negative POWERCHART Ketones, QL(U) Negative Negative POWERCHART MGDL Specific 1.020 POWERCHART [place], POCT, U pH, POCT, Urine 7.0 <5.0 POWERCHART Protein, Ur, Dip Trace Negative POWERCHART MGDL Urobilinogen 1.0 0.2 MGDL POWERCHART HXNITRITE Negative Negative POWERCHART HXBLOOD Small (A) Negative POWERCHART Leukocyte Negative Negative POWERCHART Esterase Specimen (Source) Anatomical Collection Method Collection Time Re ceived Time Location / / Volume Laterality Urine, First 02/07/2015 3:07 PM Voided CDT Jason Osullivan M.D. LAB URINE ORDERABLES Performing Organization Address City/State/ZIP Code Phon e Number POWERCHART documented in this encounter Visit Diagnoses Not on filedocumented in this encounter
--- OUTSIDE RECORDS SUMMARY | 2022-01-23 19:39 | XMS_ITS | Encounter Summary ---
:1960 Author Organization [facility] Address [address] [place] [address] Care Team Providers Name Role Phone Soren Olguin APRN, C.N.P. Primary Care Provider [phone] Encounter Details Date Type Department Care Team Description 02/05/[address] [facility] [place] Kayla Kelley M.D. [address] [place] [address] [place] [phone] (Wo rk) Social History Tobacco Use Types Packs/Day Years Used Date Smoking Tobacco: Never Alcohol Habits Answer Date Recorded [...] or relatives? How often do you attend christian or Patient refused 2021 tenriism services? 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 - 02/05/2017 5:32 PM CDT DOT exam See scanned DOT exam forms. Electronically Signed By: KAYLA KELLEY MD On: 02/05/2017 05:32 PM Source: [facility] [employer] Document Id: [id number] documented in this encounter Miscellaneous Notes Miscellaneous - Kayla Kelley M.D. - 02/05/2017 5:48 PM CDT Ambulatory Patient Summary [address] [id number] Visit Information Name: HUSSEIN HERNANDEZ [facility] Number: [id number] Current Date: 02/05/2017 17:48:50 Physicians Attending Provider: KAYLA KELLEY MD Primary Care Provider: SOREN OLGUIN CNP RN HUSSEIN HERNANDEZ has been given the following [...] tablet) 1 Tablet(s), Oral, once a day imiquimod topical (imiquimod 5% topical cream) 1 matteo, Topical, 2 times a week apply 1 packet (250 mg) of cream to upper cheeks, forehead and scalp 2xWeek for 4 months for precancers. ketoconazole topical (Nizoral 2% topical shampoo) 1 matteo, Topical, once a day use as shampoo to scalpand face wash. leave on for 3-5 minutes then rinse. mometasone topical (mometasone 0.1% topical lotion) 1 matteo, Topical, once a day to seborrhoeic dermatitis of face once daily as needed. omeprazole (omeprazole 20 mg oral delayed release capsule) 1 cap, Oral, once a day This is a CHANGE Routed to [address] [address] Stop Taking the Following Medications: Medication list as of 02-05-17 17:48 Attention: If you have any medications at home that are not on this list, DO NOT take them until youcontact your provider for clarification. Give a copy of your medication list to your primary care provider. Update your medication list any time medications or doses are changed and carry your medication list at all times in case of emergency. Electronically Signed By: KAYLA KELLEY MD Signed On:05-FEB-2017 17:48:46 Your Allergies & Intolerances Substance Reaction Symptoms Category Comments Nyquil Cold Medicine Drug Your Problem List Problem Status Onset Comments Hematuria, microscopic Active 02/23/2007 GERD [Gastroesophageal reflux disease] Active 2008 Personal History of Tobacco Use Active 07/04/11 quit in 1996 Your Upcoming Appointments Date Time Location Provider 04/26/2017 16:00 [facility] Provider Attention: Contact your local Clinic if further [...] if you dont have one. Go to [email or web address] and click on Create Your Account. Then, follow the directions to complete the online form. Youll be asked for your [facility] number which you can find at the top of this document. Your Goals/Additional instructions: Source: [facility] POWERCHART Document Id: [id number] Miscellaneous - Kayla Kelley M.D. - 02/05/2017 5:48 PM CDT Ambulatory Discharge Medication List [address] [id number] Visit Information Name: HUSSEIN HERNANDEZ ELIU [facility] Number: [id number] Current Date: 02/05/2017 17:48:48 Attending Provider: KAYLA KELLEY MD Primary Care Provider: SOREN OLGUIN CNP, RN HUSSEIN HERNANDEZ has been given the following [...] tablet) 1 Tablet(s), Oral, once a day imiquimod topical (imiquimod 5% topical cream) 1 matteo, Topical, 2 times a week apply 1 packet (250 mg) of cream to upper cheeks, forehead and scalp 2xWeek for 4 months for precancers. ketoconazole topical (Nizoral 2% topical shampoo) 1 matteo, Topical, once a day use as shampoo to scalpand face wash. leave on for 3-5 minutes then rinse. mometasone topical (mometasone 0.1% topical lotion) 1 matteo, Topical, once a day to seborrhoeic dermatitis of face once daily as needed. omeprazole (omeprazole 20 mg oral delayed release capsule) 1 cap, Oral, once a day This is a CHANGE Routed to [address] [id number] Stop Taking the Following Medications: Medication list as of 02-05-17 17:48 Attention: If you have any medications at home that are not on this list, DO NOT take them until youcontact your provider for clarification. Give a copy of your medication list to your primary care provider. Update your medication list any time medications or doses are changed and carry your medication list at all times in case of emergency. Electronically Signed By: KAYLA KELLEY MD Signed On:05-FEB-2017 17:48:46 Additional Information: Source: [facility] [employer]ART Document Id: [id number] Miscellaneous - Frances Ring, L.P.N. - 02/05/2017 5:09 PM CDT Ambulatory Vitals Height Weight Ambulatory Vitals Height Weight Entered On: 02/05/2017 17:11 CDT Performed On: 02/05/2017 17:09 CDT by FRANCES RING LPN Vitals/Ht/Wt Systolic Blood Pressure : 138 mmHg Diastolic Blood Pressure : 82 mmHg NIBP Mean : 101 mmHg BP Location : Left upper extremity Blood Pressure Cuff Size : Large Height : 181 cm(Converted to: 5 ft 11 inch(es), 71 inch(es)) FRANCES RING LPN - 02/05/2017 17:09 CDT [facility] Document Id: [id number] CDT!8 Miscellaneous - Frances Ring L.P.N. 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 Intake/History Entered On: 02/05/2017 17:07 CDT Performed On: 02/05/2017 17:01 CDT by FRANCES RING LPN Intake Chief Complaint : DOT Peripheral Pulse Rate : 73 /min Respiratory Rate : 16 /min Heart Rhythm : Regular Systolic Blood Pressure : 139 mmHg Diastolic Blood Pressure : 92 mmHg (>HHI) NIBP Mean : 108 mmHg BP Location : Left upper extremity Blood Pressure Cuff Size : Large Height : 181 cm(Converted to: 5 ft 11 inch(es), 71 inch(es)) Actual Weight : 110 kg(Converted to: 242 lb 8 oz) Weight Source : Standing scale Dosing Weight Clinic : 110 kg Clinic BSA : 2.35 Body Mass Index : 33.58 kg/m2 FRANCES RING LPN - 02/05/2017 17:01 CDT General Info Information Given By : Patient Languages : Belarusian Is Patient Female and 13-50 no hysterectomy : No FRANCES RING LPN - 02/05/2017 17:01 CDT Subjective Pain Symptoms : No FRANCES RING LPN - 02/05/2017 17:01 CDT Dependent Habits Exposure to Tobacco Smoke : Care provider denies smoking in home, Other: former Smoking Status : Former smoker Tobacco 2A : Yes Tobacco Use/Currently Using : No Tobacco Use/Last 30 Days : No Tobacco Use/Last 12 months : No Tobacco Last Use/Year : 1996 FRANCES RING LPN - 02/05/2017 17:01 CDT Caffeine Use Grid Caffeine Use : None FRANCES RING LPN - 02/05/2017 17:01 CDT Recreational Drug Use Grid Drug Use : None FRANCES RING LPN - 02/05/2017 17:01 CDT Source: [facility] [employer] Document Id: [id number] CDT!37 documented in this encounter Plan of Treatment Upcoming Encounters Date Type Specialty Care Team Description 01/24/2022 Diagnostic [facility] [address] [facility] [place] [place] [phone] 01/29/2022 Office Visit Orthopedic Surgery Laurie Dumont APRN, C.NFarshadPFarshad, D.N.PFarshad [address] [facility] [place], [place] [phone] (Wo rk) documented as of this encounter Procedures Procedure Name Priority Date/Time Associated Diagnosis Comme nts DIPSTICK, U Routine 02/05/2017 5:01 PM Results f or this CDT procedure are i n the results section . documented in this encounter Results (ABNORMAL) Dipstick, Urine (02/05/2017 5:01 PM CDT) P athologist Signature Clarity Clear Clear POWERCHART HXUr Color Yellow Colorless POWERCHART Specific >=1.030 POWERCHART [place], POCT, U Comment: Reference Range Specific [place]: 1.000-1.035 pH, POCT, Urine 5.0 <5.0 POWERCHART Comment: Reference Range pH: 5.0-8.0 Protein, Ur, Dip Negative Negative MGDL POWERCHAR T Glucose Negative Negative MGDL POWERCHART Ketones, QL(U) Negative Negative MGDL POWERCHART HXBILIRUBIN Negative Negative POWERCHART HXBLOOD Moderate (A) Negative POWERCHART Leukocyte Esterase Negative Negative POWERCHART HXNITRITE Negative Negative POWERCHART Urobilinogen 0.2 0.2 MGDL POWERCHART Comment: Reference Range Urobilinogen: 0.2-1.0 mg/dL Specimen (Source) Anatomical Collection Method Collection Time Re ceived Time Location / / Volume Laterality Urine, First 02/05/2017 5:01 PM Voided CDT Kayla Kelley M.D. LAB URINE ORDERABLES Performing Organization Address City/State/ZIP Code Phon e Number POWERCHART POWERCHART NA documented in this encounter Visit Diagnoses Not on filedocumented in this encounter Care Teams Maitre D' Relationship Specialty Start Date End Date Soren Olguin APRN, C.N.P. PCP - General 10/31/16 09/14/17 documented as of this encounter
--- OUTSIDE RECORDS SUMMARY | 2022-01-23 19:39 | XMS_ITS | Encounter Summary ---
:1960 Author Organization [facility] Address [address] [place] [address] Care Team Providers Name Role Phone Unavailable Primary Care Provider Unavailable Encounter Details Date Type Department Care Team Description 03/29/2014 Hospital Encounter H[facility] Merari Dixon M.D. [address] [place], [place] [phone] (Wo rk) Social History [...] you attend confucianism or Patient refused 2021 mormon services? 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 0 01/1804/13/2021 documented as of this encounter Consult Notes Dk Mijares M.D. - 03/29/2014 3:18 PM CST [id number] HISTORY OF PRESENT ILLNESS Hussein is a 53-year-old man who is here in regard to his left knee. He has had previous knee arthroscopy and had problems with persistent pain. He was noted to have quite severe arthritis in that leftknee on the medial side and he is here today to discuss continued treatment options. He has tried Synvisc injections already and he does not feel that it has made substantial improvement for him and now he is having bouts of pain that are quite severe for him. Certain days he is able to get by reasonably well, but he is not sure he wants to continue living in this type of pain. He wonders what his other treatment options are and what recovery would be like. PHYSICAL EXAMINATION Examination of his knee: Has a mild varus alignment to his knee today. He does have a mild knee effusion. His knee range of motion is from 0 to 130 degrees. IMPRESSION/REPORT/PLAN Hussein is a 53-year-old man status post knee arthroscopy and found to have severe degenerative changes at that time to his medial compartment. I have discussed the possibility of partial replacement versus total knee arthroplasty and given his age and where his arthritis was, doing a partial replacement could certainly be considered. If that was the case, he would have a shorter period of time for recovery, somewhere in the range of a month of being off of work versus somewhere in the range of 2 months being off of work if it was a total knee arthroplasty. He understands this and he will hold off on any other injections at all at this point in time. Consideration for a cortisone injection could ce rtainly be given if things do get worse where he cannot keep putting things off. We will plan to seehim back on an as needed basis. Patient's visit today was greater than 25 minutes long, with more than 50% of that counseling in regard to treatment options for his left knee osteoarthritis. Dk Mijares M.D./ryan Electronically Signed By: DK MIJARES MD On: 04/06/2014 03:30 PM Source: [facility] MHSDOLBEYNONRADSYS Document Id: [id number] CLUB HEAD INSPECTOR AND ADJUSTER documented in this encounter Miscellaneous Notes Miscellaneous - Roma Lindo, R.N. 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 He has had a knee scope twice on that same knee. He has some questions about his options and was wondering about possible Synvisc injection. Temperature Core : 36.9 DegC(Converted to: 98.4 DegF) Peripheral Pulse Rate : 75 /min Respiratory Rate : 18 /min Systolic Blood Pressure : 134 mmHg Diastolic Blood Pressure : 76 mmHg NIBP Mean : 95 mmHg SpO2 : 96 % Oxygen Therapy : Room air Height : 182 cm(Converted to: 6 ft 0 inch(es), 72 inch(es)) ROMA LINDO RN - 03/29/2014 15:24 [employer] HEAD INSPECTOR AND ADJUSTER General Info Information Given By : Patient Preferred Communication Mode : Verbal Languages : Lao Is Patient Female and 13-50 no hysterectomy : No ROMA LINDO RN - 03/29/2014 15:24 [employer]OLF [employer]UB HEAD INSPECTOR AND ADJUSTER Subjective Pain Symptoms : Yes ROMA LINDO Taz - 03/29/2014 15:24 [employer] HEAD INSPECTOR AND ADJUSTER Pain Pain Assessment Grid Pain 1 Location : Knee Laterality : Left ROMA LINDO Taz - 03/29/2014 15:24 [employer] HEAD INSPECTOR AND ADJUSTER Dependent Habits Tobacco Use/Currently Using : No Tobacco Use/Last 12 months : No Exposure to Tobacco Smoke : Care provider denies smoking in home Smoking Status : Former smoker ROMA LINDO Taz - 03/29/2014 15:24 [employer] HEAD INSPECTOR AND ADJUSTER Tobacco Use Grid Type : Cigarettes Last Use : 1996 ROMA LINDO Taz - 03/29/2014 15:24 [employer] HEAD INSPECTOR AND ADJUSTER Caffeine Use Grid Caffeine Use : None ROMA LINDO Taz - 03/29/2014 15:24 [employer] HEAD INSPECTOR AND ADJUSTER Recreational Drug Use Grid Drug Use : None ROMA LINDO Taz - 03/29/2014 15:24 [employer] HEAD INSPECTOR AND ADJUSTER ID Screen Drug Resistant Organism : No Travel Within Last 21 Days : No ROMA LINDO Taz - 03/29/2014 15:24 GOLF CLUB HEAD INSPECTOR AND ADJUSTER Source: [employer] Document Id: [id number] GOLF CLUB HEAD INSPECTOR AND ADJUSTER!42 CLUB HEAD INSPECTOR AND ADJUSTER documented in this encounter Plan of Treatment Upcoming Encounters Date Type Specialty Care Team Description 01/24/2022 Diagnostic Otorhinolaryngology Lara Snell Au.D. [address] [place] [phone] 01/29/2022 Office Visit Orthopedic Surgery Laurie Dumont APRN , C.N.P., D.N.P. [address] [facility] [place] [phone] (Wo rk) documented as of this encounter Visit Diagnoses Not on filedocumented in this encounter
--- OUTSIDE RECORDS SUMMARY | 2022-01-23 19:39 | XMS_ITS | Encounter Summary ---
:1960 Author Organization [facility] Address [address] [place] [address] Care Team Providers Name Role Phone Unavailable Primary Care Provider Unavailable Encounter Details Date Type Department Care Team Description 07/06/2015 Hospital Encounter HX [facility] ENT Esa Francis M.D. [address] [place], [place] [phone] (Wo rk) Social History [...] or relatives? How often do you attend scientologist or Patient refused 2021 confucianism services? 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 0 01/1804/13/2021 documented as of this encounter Progress Notes Esa Francis M.D. - 07/06/2015 1:11 PM CST [id number] Mr. Hernandez is a very pleasant 54-year-old. CHIEF COMPLAINT/REASON FOR VISIT Persistent right nosebleeds. HISTORY OF PRESENT ILLNESS I initially saw Mr. Hernandez May 04, 2015 (note reviewed). He opted for cautery at that time and he had 2 suspicious foci on the right anterior septum. He said he had a good response for about a week but then had recurrent bleeding. It can happen daily. It is more brief now than previously, lasting about a minute, but can come out in a steady stream. No other concerning symptoms. MEDICATIONS Includes aspirin 81 mg daily. PHYSICAL EXAMINATION Intranasal patent healthy mucosa. The right anterior septal mucosa shows a small amount of serum eschar and a prominent inferiorly-based vascular root and a small area of mucosal excoriation just posterior overlying a right inferior septal dislocation. Phenylephrine and lidocaine is applied topically on a cottonoid for approximately 10 minutes and removed. There is some fresh blood at the zakiya-caudal most septum at the source of the inferior vessel root. IMPRESSION/REPORT/PLAN Right Kiesselbach's plexus epistaxis. PLAN: Discussed options. He has not been using topical hydration more than once every other day or 2and just for the first week. I discussed continuing conservative measures but think he might benefitfrom further cautery at the above identified sites. Again risks and benefits discussed. Possible scarring and persistent bleeding discussed. He voiced understanding and agreement and wished to proceed. PROCEDURE Silver nitrate cautery right anterior nasal septum. Two foci. Well tolerated. Plan: Recheck 6 weeks, sooner if any persistent bleeding another week or 2. Again emphasized the importance of preferably 4 times daily topical moisturization with Vaseline and/or saline gel. He voicedunderstanding and agreement. Esa Francis M.D./ryan Electronically Signed By: ESA FRANCIS MD On: 08/03/2015 09:38 AM Source: [facility] MHSDOLBEYNONRADSYS Document Id: [id number] documented in this encounter Miscellaneous Notes Miscellaneous - Esa Francis M.D. - 07/06/2015 2:18 PM CST Ambulatory Patient Summary [address] [id number] Visit Information Name: PILO HERNANDEZ [facility] Number: [id number] Current Date: 07/06/2015 14:18:29 Physicians Attending Provider: ESA FRANCIS MD Primary Care Provider: HARVINDER STUART III, [...] empty stomach, then eat 45 minutes later Stop Taking the Following Medications: Medication list as of 07-06-15 14:18 Attention: If you have any medications at home that are not on this list, DO NOT take them until youcontact your provider for clarification. Give a copy of your medication list to your primary care provider. Update your medication list any time medications or doses are changed and carry your medication list at all times in case of emergency. Electronically Signed By: ESA FRANCIS MD Signed On:06-JUL-2015 14:18:21 Your Allergies & Intolerances Substance Reaction Symptoms Category Comments Nyquil Cold Medicine Drug Your Problem List Problem Status Onset Comments Hematuria, microscopic Active 02/23/2007 GERD [Gastroesophageal reflux disease] Active 2008 Personal History of Tobacco Use Active 07/04/11 quit in 1996 Your Upcoming Appointments Date Time Location Provider No Appointments found Attention: Contact your local Clinic if further appointment detail needed. Nosebleed [Adult] Bleeding from the nose most commonly occurs due to injury or drying and cracking of the inner liningof the nose. This can occur during a common cold, hay fever attack, a very hot day, or from dry air in the winter. High blood pressure and hardening of the arteries (atherosclerosis) may also cause nosebleeds. If the bleeding site is found, it may be treated with a chemical or heat or electricity to cause a blood clot to form (cauterized). If the bleeding continues after cautery or if the bleeding site cannot be found, a packing may be placed in your nose to apply pressure and stop the bleeding. The packingmay be made of gauze or sponge. A small balloon catheter is sometimes used. These need to be removedby your doctor. Some types of packing dissolve on their own. Home Care: ?? If a packing was put in your nose, unless told otherwise, do not pull on it or try to remove it yourself. You will be given an appointment to have it removed. You may also have been given antibiotics to prevent a sinus infection. If so, complete all the medicine. ?? Do not blow your nose for 12 hours after the bleeding stops. This will allow a strong blood clot to form. Do not pick your nose. This may restart bleeding. ?? Avoid alcohol and hot liquids for the next two days. Alcohol or hot liquids in your mouth can dilate blood vessels in your nose and cause bleeding to start again. ?? Do not take ibuprofen (Advil, Motrin), naprosyn (Aleve) or aspirin-containing medicines since these thin the blood and may promote nose bleeding. You may take Tylenol (acetaminophen) for pain, unless another pain medicine was prescribed. ?? If the bleeding starts again, sit up and lean forward to prevent swallowing blood. Pinch your nose tightly for exactly 5 minutes (watch the clock). If bleeding is not controlled, continue to pinch and call your doctor or return to this facility. ?? If high blood pressure was a cause for your nosebleed, have your blood pressure checked again tomorrow. ?? If you have a cold or hay fever or dry nasal membranes, lubricate the nasal passages by applying a small amount of Vaseline inside the nose with a Q- tip twice a day (morning and night). Avoid overheating your home, which can dry the air and worsen your condition. Follow Up with your doctor as advised for packing removal. Nasal packing should be rechecked or removed within2-3 days. Get Prompt Medical Attention if any of the following occur: ?? Another nosebleed that you cannot control ?? Dizziness, weakness or fainting ?? Fever of 100.4?F (38?C) or higher, or as directed by your healthcare provider ?? Headache ?? Sinus or facial pain ?? Shortness of breath or trouble breathing ?? [id number] [facility], [address] [place] [address], [place] [address]. All rights reserved. This information is not intended as a substitute for professional medical care. Always follow your healthcare professional's instructions. Consider Using Patient Online Services Patient Online [...] if you dont have one. Go to [email or web address] and click on Create Your Account. Then, follow the directions to complete the online form. Youll be asked for your [facility] number which you can find at the top of this document. Your Goals/Additional instructions: This document has images extracted. Please consider using [employer] for all your patient education needs. Source: [facility] POWERCHART Document Id: [id number] STMENT PROFESSIONAL Miscellaneous - Esa Francis M.D. - 07/06/2015 2:18 PM CST Ambulatory Discharge Medication List [address] [id number] Visit Information Name: PILO HERNANDEZ [facility] Number: [id number] Visit Date: 07/06/2015 14:18:28 Attending Provider: ESA FRANCIS MD Primary Care Provider: HARVINDER STUART III, [...] empty stomach, then eat 45 minutes later Stop Taking the Following Medications: Medication list as of 07-06-15 14:18 Attention: If you have any medications at home that are not on this list, DO NOT take them until youcontact your provider for clarification. Give a copy of your medication list to your primary care provider. Update your medication list any time medications or doses are changed and carry your medication list at all times in case of emergency. Electronically Signed By: ESA FRANCIS MD Signed On:06-JUL-2015 14:18:21 Additional Information: Source: [facility] POWERCHART Document Id: [id number] STMENT PROFESSIONAL Miscellaneous - Roxy Olguin RFarshadN. - 07/06/2015 1:24 PM CST Adult Funeral Planner Intake/History Adult Funeral Planner Intake/History Entered On: 07/06/2015 13:28 INVESTMENT PROFESSIONAL Performed On: 07/06/2015 13:24 INVESTMENT PROFESSIONAL by ROXY OLGUIN valve tester Chief Complaint : f/u nosebleeds, was improved for approx 1 week after last visit Temperature Core : 36.9 DegC(Converted to: 98.4 DegF) Peripheral Pulse Rate : 71 /min Respiratory Rate : 16 /min Heart Rhythm : Regular Systolic Blood Pressure : 124 mmHg Diastolic Blood Pressure : 74 mmHg NIBP Mean : 91 mmHg BP Location : Left upper extremity Blood Pressure Cuff Size : Large SpO2 : 98 % Height : 183 cm(Converted to: 6 ft 0 inch(es), 72 inch(es)) ROXY OLGUIN RN - 07/06/2015 13:24 INVESTMENT PROFESSIONAL General Info Information Given By : Patient Preferred Communication Mode : Verbal Languages : [place] Timorese Is Patient Female and 13-50 no hysterectomy : No ROXY OLGUIN RN - 07/06/2015 13:24 INVESTMENT PROFESSIONAL Subjective Pain Symptoms : No ROXY OLGUIN RN - 07/06/2015 13:24 INVESTMENT PROFESSIONAL Dependent Habits Exposure to Tobacco Smoke : Care provider denies smoking in home, Other: former Smoking Status : Former smoker Tobacco 2A : Yes Tobacco Use/Currently Using : No Tobacco Use/Last 30 Days : No Tobacco Use/Last 12 months : No ROXY OLGUIN RN - 07/06/2015 13:24 INVESTMENT PROFESSIONAL Caffeine Use Grid Caffeine Use : None ROXY OLGUIN RN - 07/06/2015 13:24 INVESTMENT PROFESSIONAL Recreational Drug Use Grid Drug Use : None ROXY OLGUIN RN - 07/06/2015 13:24 INVESTMENT PROFESSIONAL Source: [facility] [email or web address] Document Id: [id number] INVESTMENT PROFESSIONAL!34 STMENT PROFESSIONAL documented in this encounter Plan of Treatment Upcoming Encounters Date Type Specialty Care Team Description 01/24/2022 Diagnostic Otorhinolaryngology Lara Snell Au.D. [address] [place], [place] [phone] 01/29/2022 Office Visit Orthopedic Surgery Laurie Dumont APRN , C.N.P., D.N.P. [address] [place], [place] [phone] (Wo rk) documented as of this encounter Visit Diagnoses Not on filedocumented in this encounter
--- OUTSIDE RECORDS SUMMARY | 2022-01-23 19:39 | XMS_ITS | Encounter Summary ---
:1960 Author Organization [facility] Address [address] [place] [address] Care Team Providers Name Role Phone Unavailable Primary Care Provider Unavailable Encounter Details Date Type Department Care Team Description 02/07/2014 Hospital En[facility] Iva Stubbs III, M.D. [address] [place] [phone] (Wo rk) [...] or relatives? How often do you attend gnosticism or Patient refused 2021 hinduism services? Do you belong to any clubs or No 12/20/2021 organizations such as gnosticism groups, unions, fraternal or athletic groups, or [...] or slept in a correction (including now)? 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 0 01/1804/13/2021 documented as of this encounter Plan of Treatment Upcoming Encounters Date Type Specialty Care Team Description 01/24/2022 Diagnostic Otorhinolaryngology Lara Snell Au.D. [address] [place], [place] [phone] 01/29/2022 Office Visit Orthopedic Surgery Laurie Dumont APRN , C.N.P., D.N.P. [address] [place], [place] [phone] (Wo rk) documented as of this encounter Visit Diagnoses Not on filedocumented in this encounter
--- OUTSIDE RECORDS SUMMARY | 2022-01-23 19:39 | XMS_ITS | Encounter Summary ---
:1960 Author Organization [facility] Address [address] [place] [address] Care Team Providers Name Role Phone Unavailable Primary Care Provider Unavailable Encounter Details Date Type Department Care Team Description 03/29/2013 Hospital Encounter HX [facility] Monse Meyers M.D. Social History Tobacco Use Types Packs/Day Years [...] you attend religion or Patient refused 2021 samaritan services? 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 as of this encounter Last Filed Vital Signs Vital Sign Reading Time Taken Comments Blood Pressure 120/70 03/29/2013 4:56 PM HOST/HOSTESS RESTAURANT Pulse 72 03/29/2013 4:56 PM HOST/HOSTESS RESTAURANT Temperature - - Respiratory Rate 14 03/29/2013 4:56 PM HOST/HOSTESS RESTAURANT Oxygen Saturation - - Inhaled Oxygen Concentration - - Weight 111 kg (243 lb 13.3 oz) 03/29/2013 4:56 PM HOST/HOSTESS RESTAURANT Height - - Body Mass Index 33.39 02/12/2013 3:29 PM CDT documented in this encounter Medications at Time of Discharge Medication Sig Dispensed Refills Start Date End Date ASPIRIN ORAL Take 1 tablet by mouth daily. 0 01/1804/13/2021 documented as of this encounter Progress Notes Monse Meyers M.D. - 03/29/2013 4:46 PM CST [id number] CHIEF COMPLAINT/REASON FOR VISIT Twisted left knee. HISTORY OF PRESENT ILLNESS Pilo was hunting yesterday for deer and he stepped over a log and fell twisting his left knee. Hesays he kind of kit his shoulder but that is not bothering him. It is the knee that bothers him. He is able to walk on it. In fact, he worked today. 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 He said it did not feel that bad when he was up and about, but it hurt quite a bit this morning and when he sits for awhile it will be real stiff when he gets up and starts to move. He has had arthroscopic surgery on that knee in the past. He thinks it has been at least 5 years ago. He says the knee has not locked. It does not feel like it is going to give out. It has been somewhat swollen. He has not taken anything for pain. He did try some ice on it last night but it did not seem to help too much. PHYSICAL EXAMINATION EXTREMITIES/JOINTS: On exam of the left knee, there is a small effusion but he has full range of motion of the knee and full flexion and extension. There is no particular increase in pain with grindingof the knee. There is no instability. No joint line tenderness. The tenderness seems to be more on the proximal medial edge of the right kneecap. He has good distal CMS in the left leg. IMPRESSION/REPORT/PLAN Knee sprain/contusion. PLAN: We will have him continue with ice and ibuprofen if he needs anything for pain. He was given aknee sleeve to wear for support and treat this conservatively for the next week or two. If it continues to get better, we do not need to do anything more. If it gets worse, he will follow up with Dr. Kris marcelino. Monse Meyers M.D./ Electronically Signed By: MONSE MEYERS MD On: 04/02/2013 07:51 AM Source: [facility] MHSDOLBEYNONRADSYS Document Id: [id number] /HOSTESS RESTAURANT documented in this encounter Miscellaneous Notes Miscellaneous - Monse Meyers M.D. - 03/29/2013 5:18 PM CST Ambulatory Patient Summary [address] [address] Visit Information Name: PILO HERNANDEZ [facility] Number: [id number] Current Date: 03/29/2013 17:18:44 Physicians Attending Provider: MONSE MEYERS MD Primary Care Provider: HARVINDER STUART III, [...] you have problems taking your medications. Medication/Strength Dose Route Frequency Indications/Special Instructions/Comments/Notes omeprazole (omeprazole 40 mg oral delayed release capsule) 40 mg Oral once a day Take on empty stomach, then eat 45 minutes later Needs office visit for further refills aspirin (aspirin 81 mg oral tablet) 1 tab(s) Oral once a day Attention: If you have any medications at home that are not on this list, DO NOT take them until youcontact your provider for clarification. Your Allergies & Intolerances Substance Reaction Symptoms [...] appointment detail needed. Your Goals/Additional instructions: Source: [facility] POWERCHART Document Id: [id number] ALUISA Hurst - Monse Meyers M.D. - 03/29/2013 5:18 PM CST Ambulatory Depart Summary [id number] [place] [address] Visit Information Name: MARY PILO NOWAK [facility] Number: [id number] Visit Date: 03/29/2013 17:18:43 Attending Provider: MONSE MEYERS MD Primary Care Provider: HARVINDER STUART III, MD PILO HERNANDEZ has been given the following list of medications: Your Medications It is important to take your medications as directed. Use a pill box or chart to help remind you to take your medications. Please let your doctor or nurse know if you have problems taking your medications. Medication/Strength Dose Route Frequency Indications/Special Instructions/Comments/Notes omeprazole (omeprazole 40 mg oral delayed release capsule) 40 mg Oral once a day Take on empty stomach, then eat 45 minutes later Needs office visit for further refills aspirin (aspirin 81 mg oral tablet) 1 tab(s) Oral once a day Attention: If you have any medications at home that are not on this list, DO NOT take them until youcontact your provider for clarification. Additional Information: Source: [facility] [employer] Document Id: [id number] ALUISA Hurst - Pamela Rivera, L.P.N. - 03/29/2013 4:56 PM CST Adult Curing Oven Attendant Intake/History Adult Curing Oven Attendant Intake/History Entered On: 03/29/2013 16:59 HOST/HOSTESS RESTAURANT Performed On: 03/29/2013 16:56 HOST/HOSTESS RESTAURANT by PAMELA RIVERA Intake Chief Complaint : twisted his left knee while deer hunting yesterday has had arthroscopic surgery onthe knee in the past knee pain worse in the morning 01/26 Peripheral Pulse Rate : 72 /min Respiratory Rate : 14 /min Heart Rhythm : Regular Systolic Blood Pressure : 120 mmHg Diastolic Blood Pressure : 70 mmHg NIBP Mean : 87 mmHg BP Location : Right upper extremity Blood Pressure Cuff Size : Regular Actual Weight : 110.6 kg(Converted to: 243 lb 13 oz) Weight Source : Standing scale Dosing Weight Clinic : 110.6 kg PAMELA RIVERA - 03/29/2013 16:56 HOST/HOSTESS RESTAURANT General Info Information Given By : Patient Languages : Jordanian PAMELA RIVERA - 03/29/2013 16:56 HOST/HOSTESS RESTAURANT Subjective Pain Symptoms : Yes PAMELA RIVERA 03/29/2013 16:56 HOST/HOSTESS RESTAURANT Pain Pain Assessment Grid Pain 1 Location : Knee Intensity : 6 PAMELA RIVERA 03/29/2013 16:56 HOST/HOSTESS RESTAURANT Dependent Habits Tobacco Use/Currently Using : No Exposure to Tobacco Smoke : Care provider denies smoking in home Smoking Status : Former smoker PAMELA RIVERA 03/29/2013 16:56 HOST/HOSTESS RESTAURANT Tobacco Use Grid Type : Cigarettes Last Use : 1996 PAMELA RIVERA 03/29/2013 16:56 HOST/HOSTESS RESTAURANT Caffeine Use Grid Caffeine Use : None PAMELA RIVERA 03/29/2013 16:56 HOST/HOSTESS RESTAURANT Recreational Drug Use Grid Drug Use : None PAMELA RIVERA 03/29/2013 16:56 HOST/HOSTESS RESTAURANT Source: [facility] POWERCHART Document Id: [id number] HOST/HOSTESS RESTAURANT!38 /HOSTESS RESTAURANT documented in this encounter Plan of Treatment Upcoming Encounters Date Type Specialty Care Team Description 01/24/2022 Diagnostic Otorhinolaryngology Lara Snell Au.D. [address] [place] [phone] 01/29/2022 Office Visit Orthopedic Surgery Laurie Dumont APRN , C.N.P., D.N.P. [address] [facility] [place] [phone] (Wo rk) documented as of this encounter Visit Diagnoses Not on filedocumented in this encounter
--- OUTSIDE RECORDS SUMMARY | 2022-01-23 19:39 | XMS_ITS | Encounter Summary ---
:1960 Author Organization [facility] Address [address] [place] [address] Care Team Providers Name Role Phone Unavailable Primary Care Provider Unavailable Encounter Details Date Type Department Care Team Description 04/29/2015 Hospital Encounter HX [facility] Pennie Downs M.D. [address] , [address] [place], [place] [address] (Wo rk) Social History [...] or relatives? How often do you attend protestant or Patient refused 2021 mu-ism services? Do you belong to any clubs or No 12/20/2021 organizations such as protestant groups, unions, fraternal or athletic groups, or [...] at Date Recorded Male 06/23/2021 7:46 PM PERSONNEL PSYCHOLOGIST documented as of this encounter Last Filed Vital Signs Vital Sign Reading Time Taken Comments Blood Pressure - - Pulse - - Temperature - - Respiratory Rate - - Oxygen Saturation - - Inhaled Oxygen Concentration - - Weight - - Height 183 cm (6' 0.05) 04/29/2015 10:32 AM PERSONNEL PSYCHOLOGIST Body Mass Index - - documented in this encounter Medications at Time of Discharge Medication Sig Dispensed Refills Start Date End Date ASPIRIN ORAL Take 1 tablet by mouth daily. 0 01/1804/13/2021 documented as of this encounter Progress Notes Carlo Carey M.D. - 04/29/2015 10:31 AM CST [id number] CHIEF COMPLAINT/REASON FOR VISIT Seborrheic dermatitis of face. HISTORY OF PRESENT ILLNESS Mr. Leny Hernandez is a very pleasant 54-year-old gentleman with a past medical history of a basal cell carcinoma on the left of his nose who presents for an evaluation of a mildly itchy, red rash around the nasolabial folds, upper cutaneous lip and preauricular areas, and the jew areas, also on thomas areas, worse in the wintertime. Mildly itchy. Otherwise under good control of the scalp only with Nizoral 2% shampoo used several times a week, but well controlled also with fluticasone lotion to the face; however, fluticasone lotion has become too expensive and he would like to discuss other alternate possible treatments. Otherwise, there are multiple nevi on the waist up that he would like examined. Additionally, on the left great toe, there is some redness and sweating when he comes home from work and removes his work boots. It does not hurt or itch, however. It is only on the aspect of the toe that is in contact with the boot itself but also on the left 4th toe lateral aspect throughout is also in contact with boot itself but not other areas of the toe. This is redness and feels like damp with sweat. SYSTEMS REVIEW Constitutional, integumentary, and allergic/immunologic review of systems is negative except otherwise remarked above or below. PHYSICAL EXAMINATION GENERAL: Pleasant, euthymic, well-dressed, well-appearing man seated in chair, appropriately alert and orient x3, no acute distress. SKIN: Skin exam was performed the scalp, head, neck, face, eyes, oral mucosa, chest, abdomen, back, and bilateral upper extremities including palms, fingers, and fingernails. Scalp, hair, eyebrows, eyelashes, and body hair inspected and palpated as appropriate. Left lower extremity also examined. There is erythema consistent with macular erythema on the left toe with some sweating and also hyperhidrosis of the feet consistent with irritated skin. On the left forehead is a single 5 mm red scaly papule consistent with solar keratosis. There is a well-healed scar from Mohs micrographic surgery treatedbasal cell cancer on the left nose that has been fully removed. There is some mild erythema and scaling in the seborrheic areas of the face and also the preauricular areas consistent with seborrheic dermatitis. There is seborrheic capitis on the scalp. There are multiple nevi from the waist up including the trunk and bilateral upper extremities of benign appearance with moderately sun damaged skin onthe head, neck, chest, back, and arms. IMPRESSION/REPORT/PLAN 1. Solar keratosis times 1, left forehead. This single premalignant lesion was destroyed with liquidnitrogen cryosurgery. 2. Seborrheic dermatitis, face. Due to the cost of fluticasone 0.05% lotion, please stop this and instead use Xolegel (ketoconazole) 2% gel once daily to the affected seborrheic areas of the face. Should it get out of control and become itchy, please try Cordran (flurandrenolide) 0.05% lotion 2 times daily as needed when very itchy to the seborrheic areas of the face. Continue Nizoral 2% shampoo daily as needed to the scalp. 3. Seborrheic capitis. Please use Nizoral (ketoconazole) shampoo as noted above. 4. Multiple nevi. There are multiple nevi of the skin of banal appearance. Recommend observation andmonthly skin self-examinations observing for new, changing, symptomatic, or otherwise worrisome lesions as these can be signs of skin cancer. 5. Sun damaged skin. Due to chronic sun damage in order to reduce risk of skin cancer and flare of photo-sensitive dermatoses, we recommend use of 50 SPF sunscreen from [facility] 2 times daily to the skin when going outdoors for more than 30 minutes. 6. Erythema with hyperhidrosis, left great toe and left 4th toe. This is a benign condition of the skin. There is some hyperhidrosis. Reassurance provided. Should it change, become symptomatic (itch, bleed, or hurt), I would advise return to clinic for further evaluation and management. PATIENT EDUCATION Ready to learn, no apparent learning barriers were identified; learning preferences include listening. Explained diagnosis and treatment plan; patient expressed understanding of the content. Carlo Carey M.D./ryan Electronically Signed By: CARLO CAREY MD On: 08/29/2015 03:09 PM Source: [facility] MHSDOLBEYNONRADSYS Document Id: [id number] documented in this encounter Nursing Notes Breann Rivera L.P.N. - 04/29/2015 11:03 AM CST Dermatology Intake Dermatology Intake Entered On: 04/29/2015 11:04 PERSONNEL PSYCHOLOGIST Performed On: 04/29/2015 11:03 PERSONNEL PSYCHOLOGIST by BREANN RIVERA Preferred Name : Hussein Accompanied By : Alone Chief Complaint : Follow up Rash Date of Last Dermatology Visit : 09/17/2011 CDT BREANN RIVERA - 04/29/2015 11:03 PERSONNEL PSYCHOLOGIST Dermatology Intake History Pain Symptoms : No Past Dermatology History : Basal cell carcinoma BREANN RIVERA - 04/29/2015 11:03 PERSONNEL PSYCHOLOGIST Dependent Habits Exposure to Tobacco Smoke : Care provider denies smoking in home, Other: former Smoking Status : Former smoker Tobacco 2A : Yes Tobacco Use/Currently Using : No Tobacco Use/Last 30 Days : No Tobacco Use/Last 12 months : No BREANN RIVERA - 04/29/2015 11:03 PERSONNEL PSYCHOLOGIST Caffeine Use Grid Caffeine Use : None BREANN RIVERA - 04/29/2015 11:03 PERSONNEL PSYCHOLOGIST Recreational Drug Use Grid Drug Use : None BREANN RIVERA - 04/29/2015 11:03 PERSONNEL PSYCHOLOGIST Source: [facility] POWERCHART Document Id: [id number] PERSONNEL PSYCHOLOGIST!22 ONNEL PSYCHOLOGIST documented in this encounter Miscellaneous Notes Telephone Encounter - Conversion, Historical Provider Ser - 04/19/2016 9:50 AM CST *Phone Message Document Contains Addenda Addendum by CATHRYN MAYO CMA on April 24, 2016 09:53:05 PERSONNEL PSYCHOLOGIST called pt. and he states he has 3 spots on face x few months that are not going away and with a h/oBCC he is concerned about these spots. Offered pt. to go to [place] to [facility] sooner but he declined. Scheduled pt. on 06/08/16 at 11:30am with Dr. Carey in [place]. Pt. would like to be seen sooner if there is a cancellation and he can be reached at [phone]. From: ANNETTE ESPINAL ([facility] [employer] Tech) To: [facility] Nurse; Sent: 04/19/2016 09:50:36 PERSONNEL PSYCHOLOGIST Subject: *Phone Message Caller is: (x ) Patient ( ) Mother ( ) Father ( ) Spouse ( ) Daughter ( ) Son ( ) Pharmacy ( ) Other: Physician: Duy Patient MRN #: Reason for Call: Skin check Message: Hussein called to get an appt mira as he has had a couple of skin issues pop up like his previous cancer he had taken off. Please call him at [phone] or [phone]. Advice/Action: Source used: ( ) Verbalizes understanding [...] back cell phone number ( ) Source: [facility] POWERCHART Document Id: [id number] Miscellaneous - Carlo Carey M.D. - 04/29/2015 11:51 AM CST Ambulatory Patient Summary [address] [place], [place] [id number] Visit Information Name: HUSSEIN HERNANDEZ [facility] Number: [id number] Current Date: 04/29/2015 11:51:27 Physicians Attending Provider: CARLO CAREY MD Primary Care Provider: HARVINDER STUART III, MD MARCY HERNANDEZMOND ELIU has been given the following list [...] face WHEN VERY ITCHY 1xDay as needed. New Routed to [address] [id number] ketoconazole topical (Xolegel 2% topical gel) 1 matteo, Topical, once a day to redness and scaling of facial seborrhoeic dermatitis. [facility] [place] [place] [id number] ketoconazole topical (Nizoral 2% topical shampoo) 1 matteo, Topical, once a day use as shampoo to scalpand face wash. leave on for 3-5 minutes then rinse. Routed to [address] [address] omeprazole (omeprazole 40 mg oral delayed release capsule) 1 cap, Oral, once a day Take on empty stomach, then eat 45 minutes later Stop Taking the Following Medications: fluticasone topical (Cutivate 0.05% topical lotion) Medication list as of 04-29-15 11:51 Attention: If you have any medications at home that are not on this list, DO NOT take them until youcontact your provider for clarification. Give a copy of your medication list to your primary care provider. Update your medication list any time medications or doses are changed and carry your medication list at all times in case of emergency. Electronically Signed By: Signed On: Your Allergies & Intolerances Substance Reaction Symptoms Category Comments Nyquil Cold Medicine Drug Your Problem List Problem Status Onset Comments Hematuria, microscopic Active 02/23/2007 GERD [Gastroesophageal reflux disease] Active 2008 Personal History of Tobacco Use Active 07/04/11 quit in 1996 Your Upcoming Appointments Date Time Location Provider 05/04/2015 13:45 [facility] ENT Víctor CERNA, Sim Urbina Attention: Contact your local Clinic if further [...] if you dont have one. Go to [email or web address] and click on Create Your Account. Then, follow the directions to complete the online form. Youll be asked for your [facility] number which you can find at the top of this document. Your Goals/Additional instructions: Source: [facility] POWERCHART Document Id: [id number] ONNEL PSYCHOLOGIST Miscellaneous - Carlo Carey M.D. - 04/29/2015 11:51 AM CST Ambulatory Discharge Medication List [address] [id number] Visit Information Name: HUSSEIN HERNANDEZ [facility] Number: [id number] Visit Date: 04/29/2015 11:51:25 Attending Provider: CARLO CAREY MD Primary Care Provider: HARVINDER STUART III, MD HUSSEIN HERNANDEZ has been [...] face WHEN VERY ITCHY 1xDay as needed. New Routed to [facility] [id number] ketoconazole topical (Xolegel 2% topical gel) 1 matteo, Topical, once a day to redness and scaling of facial seborrhoeic dermatitis. Routed to [facility] [address] [place], [place] [id number] ketoconazole topical (Nizoral 2% topical shampoo) 1 matteo, Topical, once a day use as shampoo to scalpand face wash. leave on for 3-5 minutes then rinse. Routed to [address] [address] omeprazole (omeprazole 40 mg oral delayed release capsule) 1 cap, Oral, once a day Take on empty stomach, then eat 45 minutes later Stop Taking the Following Medications: fluticasone topical (Cutivate 0.05% topical lotion) Medication list as of 04-29-15 11:51 Attention: If you have any medications at home that are not on this list, DO NOT take them until youcontact your provider for clarification. Give a copy of your medication list to your primary care provider. Update your medication list any time medications or doses are changed and carry your medication list at all times in case of emergency. Electronically Signed By: Signed On: Additional Information: Source: [facility] POWERCHART Document Id: [id number] ONNEL PSYCHOLOGIST documented in this encounter Plan of Treatment Upcoming Encounters Date Type Specialty Care Team Description 01/24/2022 Diagnostic Otorhinolaryngology Lara Snell Au.D. [address] [place], [place] [phone] 01/29/2022 Office Visit Orthopedic Surgery Laurie Dumont, ANA , C.N.P., D.N.P. [address] [place], [place] [phone] (Wo rk) documented as of this encounter Visit Diagnoses Not on filedocumented in this encounter
--- OUTSIDE RECORDS SUMMARY | 2022-01-23 19:39 | XMS_ITS | Encounter Summary ---
:1960 Author Organization [facility] Address [address] [place] [address] Care Team Providers Name Role Phone Unavailable Primary Care Provider Unavailable Encounter Details Date Type Department Care Team Description 06/18/2013 Hospital Encounter HX NO MAPPING Noe Mijares M.D. [address] [place], [place] [phone] (Wo rk) Social History [...] you attend mu-ism or Patient refused 2021 lutheran services? Do you belong to any clubs or No 12/20/2021 organizations such as mu-ism groups, unions, fraternal or athletic groups, or [...] or slept in a residential (including now)? 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 0 01/1804/13/2021 documented as of this encounter Consult Notes Dk Mijares M.D. - 06/18/2013 9:02 AM CST [id number] HISTORY OF PRESENT ILLNESS Pilo is a 52-year-old man who is here in regards to his left knee. He had the acute onset of leftknee medial sided pain. He is status post a previous meniscectomy to this knee quite a few years agoand had been doing quite well. We sent him for an MRI of his knee. He is here today to discuss the results of this. RADIOGRAPHS: MRI of his knee demonstrates a horizontal tear of the remaining posterior horn medial meniscus, but also grade 4 changes in some areas of his medial joint space. IMPRESSION/REPORT/PLAN Pilo is a 52-year-old man who has left knee osteoarthritis as well as a meniscus tear. Given the acute onset of pain and having no significant symptoms prior to this, my suggestion at this point is to proceed with a knee arthroscopy and meniscectomy. He has already tried injection treatments which were only helpful for a very short period of time. He understands that with the arthritis things may not get completely satisfactory after arthroscopy but it would be worthwhile at this point in time. Patient's visit today was greater than 15 minutes long with more than 50% of it in counseling in regards to treatment options for his left knee pain. Dk Mijares M.D./ Electronically Signed By: DK MIJARES MD On: 06/29/2013 01:50 PM Source: [facility] MHSDOLBEYNRANDYS Document Id: [id number] MANAGEMENT MANAGER documented in this encounter Miscellaneous Notes Miscellaneous - Dk Mijares M.D. - 06/18/2013 12:19 PM CST Ambulatory Patient Summary [id number] [place] [address] Visit Information Name: PILO HERNANDEZ [facility] Number: [id number] Current Date: 06/18/2013 12:19:25 Physicians Attending Provider: DK MIJARES MD Primary [...] the Following Medications: Medication list as of 06-18-13 12:19 Attention: If you have any medications at [...] appointment detail needed. Your Goals/Additional instructions: Source: [facility] POWERCHART Document Id: [id number] MANAGEMENT MANAGER Miscellaneous - Dk Mijares M.D. - 06/18/2013 12:19 PM CST Ambulatory Depart Summary [facility] [address] [place] [address] Visit Information Name: PILO HERNANDEZ [facility] Number: [id number] Visit Date: 06/18/2013 12:19:24 Attending Provider: DK MIJARES MD Primary Care [...] the Following Medications: Medication list as of 06-18-13 12:19 Attention: If you have any medications at home that are not on this list, DO NOT take them until youcontact your provider for clarification. Give a copy of your medication list to your primary care provider. Update your medication list any time medications or doses are changed and carry your medication list at all times in case of emergency. Additional Information: Source: [facility] POWERCHART Document Id: [id number] MANAGEMENT MANAGER Miscellaneous - Roxy Shea, R.N. - 06/18/2013 9:06 AM CST Adult Weatherization Specialist Intake/History Adult Weatherization Specialist Intake/History Entered On: 06/18/2013 9:09 RISK MANAGEMENT MANAGER Performed On: 06/18/2013 9:06 RISK MANAGEMENT MANAGER by ROXY SHEA global sales director Chief Complaint : f/u left knee pain and swelling which is getting worse, MRI results, HX knee [id number] Temperature Core : 36.6 DegC(Converted to: 97.9 DegF) Peripheral Pulse Rate : 80 /min Respiratory Rate : 16 /min Heart Rhythm : Regular Systolic Blood Pressure : 126 mmHg Diastolic Blood Pressure : 82 mmHg NIBP Mean : 97 mmHg BP Location : Right upper extremity Blood Pressure Cuff Size : Large SpO2 : 98 % ROXY SHEA RN - 06/18/2013 9:06 RISK MANAGEMENT MANAGER General Info Information Given By : Patient Preferred Communication Mode : Verbal Languages : Urdu ROXY SHEA RN - 06/18/2013 9:06 RISK MANAGEMENT MANAGER Subjective Pain Symptoms : Yes ROXY SHEA RN - 06/18/2013 9:06 RISK MANAGEMENT MANAGER Pain Pain Assessment Grid Pain 1 Location : Knee Laterality : Left ROXY SHEA RN - 06/18/2013 9:06 RISK MANAGEMENT MANAGER Dependent Habits Tobacco Use/Currently Using : No Exposure to Tobacco Smoke : Care provider denies smoking in home Smoking Status : Former smoker ROXY SHEA RN - 06/18/2013 9:06 RISK MANAGEMENT MANAGER Tobacco Use Grid Type : Cigarettes Last Use : 1996 ROXY SHEA RN - 06/18/2013 9:06 RISK MANAGEMENT MANAGER Caffeine Use Grid Caffeine Use : None ROXY SHEA RN - 06/18/2013 9:06 RISK MANAGEMENT MANAGER Recreational Drug Use Grid Drug Use : None ROXY SHEA RN - 06/18/2013 9:06 RISK MANAGEMENT MANAGER Source: [facility] POWERCHART Document Id: [id number] RISK MANAGEMENT MANAGER!38 MANAGEMENT MANAGER documented in this encounter Plan of Treatment Upcoming Encounters Date Type Specialty Care Team Description 01/24/2022 Diagnostic Otorhinolaryngology Lara Snell Au.D. [address] [facility], [place] [phone] 01/29/2022 Office Visit Orthopedic Surgery Laurie Dumont APRN , C.N.P., D.N.P. [address] [facility], [place] [phone] (Wo rk) documented as of this encounter Visit Diagnoses Not on filedocumented in this encounter
--- OUTSIDE RECORDS SUMMARY | 2022-01-23 19:39 | XMS_ITS | Encounter Summary ---
:1960 Author Organization [facility] Address [address] [place] [address] Care Team Providers Name Role Phone Unavailable Primary Care Provider Unavailable Encounter Details Date Type Department Care Team Description 06/09/2013 Hospital Encounter HX [facility] MRI Iva Stubbs III, M.D. [address] [place] [phone] (Wo rk) Social [...] or relatives? How often do you attend sikhism or Patient refused 2021 mosque services? Do you belong to any clubs or No 12/20/2021 organizations such as sikhism groups, unions, fraternal or athletic groups, or [...] place to sleep or slept in a assisted (including now)? 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 0 01/1804/13/2021 documented as of this encounter Plan of Treatment Upcoming Encounters Date Type Specialty Care Team Description 01/24/2022 Diagnostic Otorhinolaryngology Lara Snell Au.D. [address] [place], [place] [phone] 01/29/2022 Office Visit Orthopedic Surgery Laurie Dumont APRN , C.N.P., D.N.P. [address] [place], [place] [phone] (Wo rk) documented as of this encounter Visit Diagnoses Not on filedocumented in this encounter
--- OUTSIDE RECORDS SUMMARY | 2022-01-23 19:39 | XMS_ITS | Encounter Summary ---
:1960 Author Organization [facility] Address [address] [place] [address] Care Team Providers Name Role Phone Unavailable Primary Care Provider Unavailable Encounter Details Date Type Department Care Team Description 06/08/2016 Hospital Encounter HX [facility] Pennie Downs M.D. [address] , [address] [place], [place] [address] (Wo rk) Social History [...] you attend episcopalian or Patient refused 2021 voodoo services? Do [...] at Date Recorded Male 06/23/2021 7:46 PM LEGAL STENOGRAPHER documented as of this encounter Last Filed Vital Signs Vital Sign Reading Time Taken Comments Blood Pressure - - Pulse - - Temperature - - Respiratory Rate - - Oxygen Saturation - - Inhaled Oxygen Concentration - - Weight - - Height 183 cm (6' 0.05) 06/08/2016 11:25 AM LEGAL STENOGRAPHER Body Mass Index - - documented in this encounter Medications at Time of Discharge Medication Sig Dispensed Refills Start Date End Date ASPIRIN ORAL Take 1 tablet by mouth 0 02/12/2011 04/13/2021 daily. imiquimod (for_ALDARA) Apply 1 application 0 05/2007/03/2021 5 % cream topically 2 (two) times a week. ketoconazole (NIZORAL) Apply 1 application 0 05/2011/11/2017 2 % shampoo topically daily. documented as of this encounter Progress Notes Carlo Carey M.D. - 06/08/2016 11:24 AM CST [id number] CHIEF COMPLAINT/REASON FOR VISIT Spot on right anterior synagogue. HISTORY OF PRESENT ILLNESS Mr. Hussein Whittaker is a very pleasant 55-year-old gentleman who presents for an evaluation of a 6-month history of a small, red, circular papule that has become rust and red/brown color, scaly raised and conical over the last 6 months on the right anterior synagogue that does not itch, does not bleed, does not hurt. However, due to these qualities, characteristics and symptoms, he is wondering if there is anything to be done about it and he wants to make sure it is not a skin cancer. Additionally, he is having recurrence for the last 1 month of mild itching to moderate itch occurring on the bilateral nasolabial folds that had previously been alleviated with fluticasone 0.05% lotion, however, as he has recently switched insurance as the cost has increased but he recently started going on an HSA <__IM_1: BLANK__>. Otherwise, there are multiple nevi from the waist up to evaluate today. Otherwise, Mr. Whittaker has not noted any other lesions of the skin to be new, changing, symptomatic nor otherwise worsening to hiseyes except for a scaly spot on the left synagogue and a scaly spot on the right cheek. SYSTEMS REVIEW Constitutional, integumentary, allergic/immunologic review of systems is negative except as otherwise remarked above or below. PAST MEDICAL/SURGICAL HISTORY 1. Seborrheic dermatitis. 2. Premalignant solar keratoses. 3. Multiple nevi. 4. Sun damaged skin. ALLERGIES NyQuil cold medicine. PHYSICAL EXAMINATION GENERAL: Pleasant, euthymic, well-dressed, well-appearing man, seated in chair, appropriately alert and oriented x3. No acute distress. SKIN: A skin exam is performed the scalp of the scalp, head, neck, face, eyes, lips, and vermilion lips, oral mucosa, chest, abdomen, back, and the bilateral upper extremities including palms, fingers,and fingernails, scalp, hair, eyebrows, eyelashes and body hair inspected and palpated as appropriate. Photo type 2. There are multiple nevi of the chest, abdomen, back and the bilateral upper extremities of benign appearance with moderately sun damaged skin over the same distribution including head and neck. There is some erythema and scaling on bilateral nasolabial folds and also the medial eyebrows consistent with seborrheic dermatitis consistent with seborrheic dermatitis flare. On the right anterior synagogue, right upper cheek and other location noted by patient on face are 3 x 4 mm red, scaly, papules with 3 premalignant solar keratoses. These are all present at the upper cheek or superior. Additionally, there are multiple solar keratoses on the frontal scalp as well as the upper forehead for a grand total of about 13 solar keratoses. Additionally, there is a 9 mm, typically pigmented brown macule with atypical dots and globules occurring on the right medial shoulder consistent with skin growth of uncertain behavior. IMPRESSION/REPORT/PLAN 1. Solar keratoses x13. Including 3 lesions noted by patient today. The nature, etiology and pathogenesis of these 13 premalignant solar keratoses were discussed. Disposition options including observation versus cryosurgery versus Efudex versus imiquimod cream was discussed. Patient elected to proceedwith Imiquimod cream. Due to the number of solar keratoses and due to the risk of field cancerization, I do recommend field therapy treatment. 2. Please use imiquimod 5% cream, applying 1 entire packet (250 mg of cream is 1 packet) to the upper cheeks, anterior scalp and forehead 2 times weekly (Friday night and Friday night) for 4 months. Areas will become raw, red and irritated. Please apply the cream to dry skin. Sent to [facility] in [place] (pharmacy number provided). 3. Seborrheic dermatitis flare. Please initiate mometasone 0.1% lotion applied once daily as needed to the affected area on the face including the nasolabial folds. May also use on the medial eyebrows. The imiquimod cream should be applied to the nasal dorsum and all areas of the nose except for the nasolabial folds as the scaly spots on the nose are premalignant solar keratoses where the nasolabial folds are <__IM_2: BLANK__> seborrheic dermatitis. Otherwise, please continue ketoconazole 2% shampoo (Nizoral 2% shampoo) to wash hair and scalp once daily, leaving on for 3 to 5 minutes before rinsing out in the shower. 4. Multiple nevi: There are multiple nevi of the skin of banal appearance. Recommend observation andmonthly skin self-examinations observing for new, changing, symptomatic, or otherwise worrisome lesions as these can be signs of skin cancer. 5. Sun damaged skin: Due to chronic sun damage in order to reduce risk of skin cancer and flare of photo-sensitive dermatoses, we recommend use of 50 SPF sunscreen from [employer] 2 times daily to the skin when going outdoors for more than 30 minutes. 6. Skin growth of uncertain behavior, right medial shoulder: Verbal consent was obtained for photograph to document location and 0appearance of this atypical appearing 9 mm brown spot on the right medial shoulder today. We will perform a shave removal in order to rule out skin cancer. Recommended shave due to rule out skin cancer. Skin specimen to Pathology. The patient should receive notification with the outcome of the pathology results in 2 to 3 weeks and should call the clinic otherwise. Risks, benefits, alternatives of procedure and necessity of other healthcare team members involved in procedure were discussed. All questions answered. Before procedure, pause conducted and patient identity, procedure, site, position, special equipment/requirements were verified. PROCEDURE DETAILS Shave removal. LOCATION: Right medial shoulder. INDICATION: As above. Each lesion was marked with a surgical pen and confirmed with the patient. Each area was prepped anddraped in the usual clean fashion. A procedural pause was completed. Each lesion was anesthetized with 1% lidocaine. Each lesion was removed by shave technique, including 1 to 2 mm of clinically normal, uninvolved surrounding skin. Hemostasis was well controlled with aluminum chloride and confirmed. Estimated blood loss: Minimal. Complications: None. Wound dressing applied, care instructions explained. Patient given pamphlet [id number]. 7. Waist up skin exam: A skin cancer screening was performed of the areas described above. Please see the diagnoses enumerated above. Recommended monthly skin self-examinations with the aid of another trusted individual for assistance to evaluate for new, changing, symptomatic, or otherwise worrisome lesions of the skin as these can be signs of skin cancer. Photoprotection was advised and strategies identified. Return to Dermatology in 12 months for a full head-to-toe skin cancer screening. PATIENT EDUCATION Ready to learn, no apparent learning barriers were identified; learning preferences include listening. Explained diagnosis and treatment plan; patient expressed understanding of the content. Carlo Carey M.D./ryan Electronically Signed By: CARLO CAREY MD On: 07/22/2016 01:23 PM Source: [facility] MHSDOLBEYNONRADSYS Document Id: [id number] L STENOGRAPHER documented in this encounter Nursing Notes Breann Becerra, LFarshadPFarshadNFarshad - 06/08/2016 11:32 AM CST Dermatology Intake Dermatology Intake Entered On: 06/08/2016 11:33 LEGAL STENOGRAPHER Performed On: 06/08/2016 11:32 LEGAL STENOGRAPHER by BREANN BECERRA General Preferred Name : Hussein Accompanied By : Alone Chief Complaint : 3 spots on face Date of Last Dermatology Visit : 09/17/2011 CDT BREANN BECERRA - 06/08/2016 11:32 LEGAL STENOGRAPHER Dermatology Intake History Pain Symptoms : No Past Dermatology History : Basal cell carcinoma BREANN BECERRA - 06/08/2016 11:32 LEGAL STENOGRAPHER Dependent Habits Exposure to Tobacco Smoke : Care provider denies smoking in home, Other: former Smoking Status : Former smoker Tobacco 2A : Yes Tobacco Use/Currently Using : No Tobacco Use/Last 30 Days : No Tobacco Use/Last 12 months : No MIGUEL BREANN - 06/08/2016 11:32 LEGAL STENOGRAPHER Caffeine Use Grid Caffeine Use : None BREANN BECERRA - 06/08/2016 11:32 LEGAL STENOGRAPHER Recreational Drug Use Grid Drug Use : None BREANN BECERRA - 06/08/2016 11:32 LEGAL STENOGRAPHER Source: [facility] POWERCHART Document Id: [id number] LEGAL STENOGRAPHER!22 L STENOGRAPHER documented in this encounter Miscellaneous Notes Nataleecellaneous - Carlo Carey M.D. - 06/17/2016 5:41 PM CST Results Notification Document Contains Addenda Addendum by BREANN BECERRA on June 17, 2016 18:25:39 LEGAL STENOGRAPHER noted From: CARLO CAREY MD To: [place] Dermatology Nurse; Sent: 06/17/2016 17:41:46 LEGAL STENOGRAPHER Show up: 06/17/2016 17:42:00 LEGAL STENOGRAPHER Subject: Results Notification No need to call patient. Letter sent. A. DermPath Consultation, Wet Tissue; right medial shoulder: Lentiginous junctional nevus Comment: Clinical photo reviewed. Results: Date Result Name Value 06/08/2016 12:00 Drm Exam Accn-[place] [id number] 06/08/2016 12:00 Drm Exam Addr-[place] See Comment 06/08/2016 12:00 Drm Exam Impr-[place] See Comment 06/08/2016 12:00 Drm Exam Mtrl-[place] See Comment 06/08/2016 12:00 Drm Exam Refer-[place] See Comment 06/08/2016 12:00 Drm Exam Sign-[place] See Comment 06/08/2016 12:00 Drm Exam Site-[place] See Comment [facility] POWERCHART Document Id: [id number] Miscellaneous - Carlo Carey M.D. - 06/17/2016 5:41 PM CST Custom Result Letter June 17, 2016 HUSSEIN WHITTAKER [address] [facility] [id number] Dear HUSSEIN WHITTAKER, During your evaluation in the Department of Dermatology, a biopsy was obtained from the skin lesion on your right medial shoulder. The specimen was examined under the microscope and showed a lentiginous junctional naevus (benign mole). This is a benign condition of the skin that is not a cancer and requires no further treatment. It was a pleasure to participate in your dermatologic care. Please do not hesitate to contact me if you have any questions. Result Name Current Result Drm Exam Accn-[place] [id number] 06/08/2016 Drm Exam Addr-[place] See Comment 06/08/2016 Drm Exam Impr-[place] See Comment 06/08/2016 Drm Exam Mtrl-[place] See Comment 06/08/2016 Drm Exam Refer-[place] See Comment 06/08/2016 Drm Exam Sign-[place] See Comment 06/08/2016 Drm Exam Site-[place] See Comment 06/08/2016 Sincerely, CARLO CAREY [facility][note 3][address] [place] [id number] Electronic Signature Electronically Signed By: CARLO CAREY MD On: June 17, 2016 This document has images extracted. Source: [facility] POWERCHART Document Id: [id number] Electronically signed by Hung, [facility] [employer] Barge Mate [id number] at 10/29/2016 3:22 AM CDT Telephone Encounter - Conversion, Historical Provider Ser - 06/17/2016 9:06 AM CST *Phone Message Document Contains Addenda Addendum by BREANN BECERRA on June 17, 2016 16:35:16 LEGAL STENOGRAPHER Spoke with the patient and he thought that Dr. Carey was refilling his omeprazole. I explained that Dr. Carey does not prescribe omeprazole and he would need to be seen by Family practice for refill or he could try omeprazole over the counter. Patient thanked me for the clarification. Addendum by ANNETTE ESPINAL on June 17, 2016 15:47:26 LEGAL STENOGRAPHER From: ANNETTE ESPINAL ([place] Family Medicine Research Executive) To: [place] Dermatology Nurse; Sent: 06/17/2016 15:47:26 LEGAL STENOGRAPHER ! Subject: FW: *Phone Message Please call Hussein back as he called again to get this taken care of. From: ANNETTE ESPINAL ([place] Family Medicine Research Executive) To: [place] Dermatology Nurse; Sent: 06/17/2016 09:06:53 LEGAL STENOGRAPHER ! Subject: *Phone Message Caller is: ( x ) Patient ( ) Mother ( ) Father ( ) Spouse ( ) Daughter ( ) Son ( ) Pharmacy ( ) Other: Physician: Duy Patient MRN #: Reason for Call: Rx issues Message: Please give Hussein a call regarding rx from last week. One rx is on hold and he is unable to fill. Please call on his cell phone [phone]. Advice/Action: Source used: ( ) Verbalizes understanding [...] back cell phone number ( ) Source: [facility] Document Id: [id number] Miscellaneous - Durga Bautista I, R.N. - 06/12/2016 12:29 PM CST *General Message From: DURGA BAUTISTA RN ([place] Colonoscopy Pool) To: [place] Colonoscopy Pool; Sent: 06/12/2016 12:29:00 LEGAL STENOGRAPHER Subject: *General Message Due Date/Time: 11/23/2019 12:28:00 CDT Source: [facility] Clusterize Document Id: [id number] Electronically signed by [facility], [facility] [employer] Mate [id number] at 10/29/2016 3:22 AM CDT Miscellaneous - Carlo Carey M.D. - 06/08/2016 12:16 PM CST Ambulatory Patient Summary [place] [place] [id number] Visit Information Name: HUSSEIN WHITTAKER [facility] Number: [id number] Current Date: 06/08/2016 12:16:05 Physicians Attending Provider: CARLO CAREY MD Primary Care Provider: WILBERTO OLGUIN SUPERVISOR DETASSELING [employer]W HUSSEIN WHITTAKER has been given the following [...] scalp 2xWeek for 4 months for precancers. New Routed to [address] [address] ketoconazole topical (Nizoral 2% topical shampoo) 1 matteo, Topical, once a day use as shampoo to scalpand face wash. leave on for 3-5 minutes then rinse. This is a CHANGE Routed to [address] [place] [address] mometasone topical (mometasone 0.1% topical lotion) 1 matteo, Topical, once a day to seborrhoeic dermatitis of face once daily as needed. New Routed to [address] [address] omeprazole (omeprazole 40 mg oral delayed release capsule) 1 cap, Oral, once a day Pt needs to establish before next refill Stop Taking the Following Medications: flurandrenolide topical (Cordran 0.05% topical lotion) Medication list as of 06-08-16 12:16 Attention: If you have any medications at home that are not on this list, DO NOT take them until youcontact your provider for clarification. Give a copy of your medication list to your primary care provider. Update your medication list any time medications or doses are changed and carry your medication list at all times in case of emergency. Electronically Signed By: CARLO CAREY MD Signed On:08-JUN-2016 12:15:59 Your Allergies & Intolerances Substance Reaction Symptoms [...] if you dont have one. Go to [email or web address] and click on Create Your Account. Then, follow the directions to complete the online form. Youll be asked for your [facility] number which you can find at the top of this document. Your Goals/Additional instructions: Source: [facility] POWERCHART Document Id: [id number] L STENOGRAPHER Miscellaneous - Carlo Carey M.D. - 06/08/2016 12:16 PM CST Ambulatory Discharge Medication List [address] [id number] Visit Information Name: HUSSEIN WHITTAKER [facility] Number: [id number] Current Date: 06/08/2016 12:16:00 Attending Provider: CARLO CAREY MD Primary Care Provider: WILBERTO OLGUIN SUPERVISOR [employer] HUSSEIN WHITTAKER has been given the following [...] scalp 2xWeek for 4 months for precancers. New Routed to [address] [address] ketoconazole topical (Nizoral 2% topical shampoo) 1 matteo, Topical, once a day use as shampoo to scalpand face wash. leave on for 3-5 minutes then rinse. This is a CHANGE Routed to [address] [address] mometasone topical (mometasone 0.1% topical lotion) 1 matteo, Topical, once a day to seborrhoeic dermatitis of face once daily as needed. New Routed to [address] [address] omeprazole (omeprazole 40 mg oral delayed release capsule) 1 cap, Oral, once a day Pt needs to establish before next refill Stop Taking the Following Medications: flurandrenolide topical (Cordran 0.05% topical lotion) Medication list as of 06-08-16 12:16 Attention: If you have any medications at home that are not on this list, DO NOT take them until youcontact your provider for clarification. Give a copy of your medication list to your primary care provider. Update your medication list any time medications or doses are changed and carry your medication list at all times in case of emergency. Electronically Signed By: CARLO CAREY MD Signed On:08-JUN-2016 12:15:59 Additional Information: Source: [facility] POWERCHART Document Id: [id number] L STENOGRAPHER Miscellaneous - Conversion, Historical Provider Ser - 05/31/2016 2:27 PM LEGAL STENOGRAPHER *General Message From: TE MITTAL To: [place] Colonoscopy Pool; Sent: 05/31/2016 14:27:12 LEGAL STENOGRAPHER Subject: *General Message Please check patient. Last colonoscopy was 2009. Source: [facility] POWERCHART Document Id: [id number] documented in this encounter Plan of Treatment Upcoming Encounters Date Type Specialty Care Team Description 01/24/2022 Diagnostic Otorhinolaryngology Lara Snell Au.D. [address] [place], [place] [phone] 01/29/2022 Office Visit Orthopedic Surgery Laurie Dumont, ANA , C.N.P., D.N.P. [address] [place], [place] [phone] (Wo rk) documented as of this encounter Procedures Procedure Name Priority Date/Time Associated Comments Diagnosis DERMATOPATHOLOGY CONSULT Routine 06/08/2016 12:00 Results for this PM LEGAL STENOGRAPHER procedure are i n the results section. LAB SURG PATH,LEVEL IV Routine 06/08/2016 12:00 R esults for this PRO AND TECH PM LEGAL STENOGRAPHER procedure are i n the results section. documented in this encounter Results LAB SURG PATH,LEVEL IV PRO AND TECH (06/08/2016 12:00 PM LEGAL STENOGRAPHER) Analysis Performed At Patho logist Time Signature HXLvl IV Surg Performed POWERCHART [facility] Comment: Test Performed by: [address] [address] Repairer Kiln Car: Song Payton II, M.D., Ph.D. Specimen Anatomical Collection Method Collection Time Receive d Time (Source) Location / / Volume Laterality Tissue 06/08/2016 12:00 06/11/2016 7:19 PM LEGAL STENOGRAPHER AM LEGAL STENOGRAPHER Historical Provider [facility] LABORATORY Performing Organization Address City/[facility] Code Phon e Number POWERCHART PATHOLOGY DERMPATH CONSULT, WET TISSUE (06/08/2016 12:00 PM LEGAL STENOGRAPHER) [facility] Method Time Signature HXDrm Exam [id number] POWERCHART [facility] HXDrm Exam See Comment POWERCHART [facility] Comment: RESULT: Carlo Carey M.D. HXDrm Exam [facility] See Comment POWERCH ART Comment: [facility] [address] [place] [address] HXDrm Exam [facility] See Comment POWERCH ART Comment: RESULT: A. DermPath Consultatio n, Wet Tissue; right medial shoulder: HXDrm Exam [facility] See Comment POWERCH ART Comment: A. ??Received in formalin labeled with t he patient's name and and lab eled as right medial shoulder as 1.3 x 1.0 x 0.1 cm skin sha kamilah biopsy. ??Centrally located on the skin surface is a 0.5 x 0 .3 cm brown pigmented lesion with irregular borders. ??The specimen i s trisected and submitted entirely in cassette A1. HXDrm Exam [facility] See Comment POWERCH ART Comment: A. ??DermPath Consultation, Wet Tissue; right medial shoulder: Lentiginous junctional nevus Comment: ??Clinical photo reviewed. HXDrm Exam [facility] See Comment POWERCH ART Comment: RESULT: 06/13/2016 12:05 ??Interpreted by : Cari Robles M.D Report electronically signed by Cari Robles M.D. Transcribed by: [email or web address] 06/13/2016 10:08:56 Test Performed by: [place] [id number] Repairer Kiln Car: Song Payton II, M.D., Ph.D. Specimen (Source) Anatomical Collection Method Collection Time Re ceived Time Location / / Volume Laterality Tissue 06/08/2016 12:00 PM LEGAL STENOGRAPHER Carlo Carey M.D. LAB PATH DERM ORDERABLES Performing Organization Address City/State/ZIP Code Phon e Number POWERCHART documented in this encounter Visit Diagnoses Not on filedocumented in this encounter
--- OUTSIDE RECORDS SUMMARY | 2022-01-23 19:39 | XMS_ITS | Encounter Summary ---
:1960 Author Organization [facility] Address [address] [place] [address] Care Team Providers Name Role Phone Unavailable Primary Care Provider Unavailable Encounter Details Date Type Department Care Team Description 09/21/2013 Hospital Encounter HX NO MAPPING Matt Tong, PFarshadA.Teri C. Social History Tobacco Use Types Packs/Day Years [...] you attend voodoo or Patient refused 2021 muslim services? Do you belong to any clubs or No 12/20/2021 organizations such as voodoo groups, unions, fraternal or athletic groups, or [...] slept in a skilled nursing (including now)? 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 0 01/1804/13/2021 documented as of this encounter Progress Notes Matt Tong - 09/21/2013 3:16 PM CDT [id number] Mr. Hernandez is a pleasant 52-year-old gentleman who is here today for his 3rd in a series of Synvisc injections of his left knee for his pain secondary to degenerative joint disease. After brief discussion, his left knee is prepared in a sterile fashion. A small amount of 1% lidocaine along with 16 mg of Synvisc was injected in the knee without complication. The procedure was tolerated well. IMPRESSION/REPORT/PLAN If he has any questions, he is encouraged to call. Otherwise, he will follow up on an as-needed basis, because I believe he is well-aware of his situation as well as what treatment options are available to him. Matt Tong P.A.-C./ryan Electronically Signed By: MATT TONG PA-C On: 09/29/2013 03:30 PM Source: [facility] MHSDOLBEYNONRADSYS Document Id: [id number] documented in this encounter Miscellaneous Notes Miscellaneous - Matt Tong - 09/21/2013 3:40 PM CDT Ambulatory Patient Summary [id number] [place], [place] [id number] Visit Information Name: HUSSEIN HERNANDEZ [facility] Number: [id number] Current Date: 09/21/2013 15:40:38 Physicians Attending Provider: MATT TONG PA-C Primary Care Provider: HARVINDER STUART III, MD [...] tablet) 1 Tablet(s), Oral, once a day fluticasone topical (Cutivate 0.05% topical lotion) 1 matteo, Topical, once a day to seborrhoeic dermatitis of face PRN. ketoconazole topical (Nizoral 2% topical shampoo) 1 [...] the Following Medications: Medication list as of 09-21-13 15:40 Attention: If you have any medications at home that are not on this list, DO NOT take them until youcontact your provider for clarification. Give a copy of your medication list to your primary care provider. Update your medication list any time medications or doses are changed and carry your medication list at all times in case of emergency. Electronically Signed By: MATT TONG PA-C Signed On:21-SEP-2013 15:40:32 Your Allergies & Intolerances Substance Reaction Symptoms [...] appointment detail needed. Your Goals/Additional instructions: Source: [facility] POWERCHART Document Id: [id number] Miscellaneous - Matt Tong - 09/21/2013 3:40 PM CDT Ambulatory Discharge Medication List [facility] [address] [facility] [place] [phone] Visit Information Name: HUSSEIN HERNANDEZ [facility] Number: [id number] Visit Date: 09/21/2013 15:40:37 Attending Provider: MATT TONG PA-C Primary Care Provider: HARVINDER STUART III, MD [...] tablet) 1 Tablet(s), Oral, once a day fluticasone topical (Cutivate 0.05% topical lotion) 1 matteo, Topical, once a day to seborrhoeic dermatitis of face PRN. ketoconazole topical (Nizoral 2% topical shampoo) 1 [...] the Following Medications: Medication list as of 09-21-13 15:40 Attention: If you have any medications at home that are not on this list, DO NOT take them until youcontact your provider for clarification. Give a copy of your medication list to your primary care provider. Update your medication list any time medications or doses are changed and carry your medication list at all times in case of emergency. Electronically Signed By: MATT TONG PA-C Signed On:21-SEP-2013 15:40:32 Additional Information: Source: [facility] POWERCHART Document Id: [id number] Miscellaneous - Roxy Olguin R.N. - 09/21/2013 3:21 PM CDT Adult Loss Prevention Auditor Intake/History Adult Loss Prevention Auditor Intake/History Entered On: 09/21/2013 15:24 CDT Performed On: 09/21/2013 15:21 CDT by ROXY OLGUIN reverser Chief Complaint : f/u left knee pain, synvisc #3 Temperature Core : 36.8 DegC(Converted to: 98.2 DegF) Peripheral Pulse Rate : 70 /min Respiratory Rate : 16 /min Heart Rhythm : Regular Systolic Blood Pressure : 114 mmHg Diastolic Blood Pressure : 76 mmHg NIBP Mean : 89 mmHg BP Location : Right upper extremity Blood Pressure Cuff Size : Large SpO2 : 95 % ROXY OLGUIN RN - 09/21/2013 15:21 CDT General Info Information Given By : Patient Preferred Communication Mode : Verbal Languages : Burkinan ROXY OLGUIN RN - 09/21/2013 15:21 CDT Subjective Pain Symptoms : Yes ROXY OLGUIN RN - 09/21/2013 15:21 CDT Pain Pain Assessment Grid Pain 1 Location : Knee Laterality : Left ROXY OLGUIN RN - 09/21/2013 15:21 CDT Dependent Habits Tobacco Use/Currently Using : No Exposure to Tobacco Smoke : Care provider denies smoking in home Smoking Status : Former smoker ROXY OLGUIN RN - 09/21/2013 15:21 CDT Tobacco Use Grid Type : Cigarettes Last Use : 1996 ROXY OLGUIN RN - 09/21/2013 15:21 CDT Caffeine Use Grid Caffeine Use : None ROXY OLGUIN RN - 09/21/2013 15:21 CDT Recreational Drug Use Grid Drug Use : None ROXY OLGUIN RN - 09/21/2013 15:21 CDT [facility] Document Id: [id number]!38 documented in this encounter Plan of Treatment Upcoming Encounters Date Type Specialty Care Team Description 01/24/2022 Diagnostic Otorhinolaryngology Lara Snell Au.D. [address] [place], [place] [phone] 01/29/2022 Office Visit Orthopedic Surgery Laurie Dumont APRN , C.N.P., D.N.P. [address] [place] [phone] (Wo rk) documented as of this encounter Visit Diagnoses Not on filedocumented in this encounter
--- OUTSIDE RECORDS SUMMARY | 2022-01-23 19:39 | XMS_ITS | Encounter Summary ---
:1960 Author Organization [facility] Address [address] [place] [address] Care Team Providers Name Role Phone Unavailable Primary Care Provider Unavailable Encounter Details Date Type Department Care Team Description 07/20/2013 Hospital Encounter HX [facility] SURGERY Last Mijares M.D. [address] [place] [address] (Wo rk) Social History Tobacco Use Types [...] you attend baptism or Patient refused 2021 cheondoism services? Do you belong to any clubs or No 12/20/2021 organizations such as baptism groups, unions, fraternal or athletic groups, or [...] or slept in a longterm (including now)? Sex Assigned at Date Recorded Male 06/23/2021 7:46 PM COMMERCIAL TITLE EXAMINER documented as of this encounter Last Filed Vital Signs Vital Sign Reading Time Taken Comments Blood Pressure 147/89 07/20/2013 1:58 PM COMMERCIAL TITLE EXAMINER Pulse 60 07/20/2013 1:58 PM COMMERCIAL TITLE EXAMINER Temperature - - Respiratory Rate 14 07/20/2013 1:58 PM COMMERCIAL TITLE EXAMINER Oxygen Saturation - - Inhaled Oxygen Concentration - - Weight - - Height 182 cm (5' 11.65) 07/20/2013 1:58 PM COMMERCIAL TITLE EXAMINER Body Mass Index - - documented in this encounter Discharge Summaries Dk Mijares M.D. - 07/20/2013 5:00 PM CST Hospital Discharge Instructions [address] [address] Patient Discharge Instructions Name: HUSSEIN WHITTAKER Current Date: 07/20/2013 17:00:48 : 1960 12:00 AM [facility] Number: [id number] Patient Address: [address] [place] [id number] Patient Primary Care Provider: Name: HARVINDER STUBBS III, MD Discharge Diagnosis: [facility] in [place] would like to thank you for allowing us to assist you withyour healthcare needs. The following includes patient education materials and information regarding your injury/illness. Comment: HUSSEIN WHITTAKER has been given the following list of follow-up instructions, medication list,and patient education materials: Follow-up Instructions With: Address: When: MATT TONG [address] [place] [id number] Business (1) 08/06/2013 09:30:00 Comments: Medications Medication/Strength Dose Route Frequency Indications/Special Instructions/Comments/Notes HYDROcodone-acetaminophen (Glenrock 5 mg-325 mg oral tablet) 2 tab(s) Oral every 6 hours as needed for Pain No more than 4,000mg acetaminophen/24hrs omeprazole (omeprazole 40 mg oral delayed release [...] at all times in case of emergency. Comment: Electronically Signed By: DK MIJARES MD Signed On:20-JUL-2013 17:00:45 Your Upcoming Appointments Date Time Location Reason Provider 08/06/2013 09:30 [facility] post-op left knee Marii ANTHONY, Matt Lindo, HUSSEIN WHITTAKER , have received the attached patient education materials/instructions and have verbalized understanding: Patient Signature Date Time Care Provider Signature Date Time 95760 After Knee Arthroscopy: Recovering from Surgery Your surgeon may prescribe physical therapy before or after your surgery. This can help relieve pain, increase range of motion, and improve strength. Your physical therapist will design a program for you based on your knee problem and recovery goals. This program may include office visits and a home exercise program. Working with Your Physical Therapist Your physical therapist can help you set goals and work toward them. But a successful recovery depends on you. Follow instructions and keep your appointments. Types of Physical Therapy To help you heal, your physical therapist may use one or more of the following: ?? Manual therapy. This may include stretching or massage to reduce stiffness and make your joints more flexible. You may also work your muscles against pressure to make them stronger. ?? Weight machines. These machines work and strengthen specific muscle groups. ?? Closed kinetic chain exercises. These help make your joints stronger and more stable by keeping one part of the body still while the rest of the body is moving. Squats are an example of these exercises. ?? Aerobic exercises. These include biking and walking. They strengthen the leg muscles as well as the heart and lungs. ?? Electric stimulation (as needed). This uses a painless electric current to relieve pain, decreaseswelling, and rebuild muscles. Ultrasound (as needed). This uses sound waves to help heal injured tissue. ?? [facility] [place] [address]. All rights reserved. This information is not intended as a substitute for professional medical care. Always follow your healthcare professional's instructions. [address]018 After Knee Arthroscopy After surgery, your joint may be swollen, painful, and stiff. Your recovery time will depend on whatwas done. Your surgeon will tell you when to resume activity and weight bearing. If you had meniscalcartilage or loose bodies removed, you may be told to bear weight early on. After ACL repair, do notpivot or make sudden moves. You may be told to ride an exercise bike daily. This will help restore your knee's motion and strength. At Home Follow your surgeons guidelines for healing: ?? Elevate your knee as much as possible and ice your knee for 20 minutes. then allow at least 20 minutes before the next icing session.. ?? Keep your knee bandaged according to your surgeon's instructions. ?? When you shower, wrap your knee with plastic to keep it dry. ?? Take pain medication as directed. The checklist below helps remind you what to do after arthroscopy. Schedule your first follow-up visit for 5 days after surgery or as directed by your surgeon. Take care of your incision and bathe as directed. Complete your physical therapy program. Talk with your surgeon about activities you can do immediately and those that need to wait. Contact your surgeon right away if you experience any of the following: ?? Fever ?? Chills ?? Persistent warmth or redness around the kne ?? Persistent or increased pain ?? Significant swelling in your knee Increasing pain in your calf muscle ?? [address] [address]. All rights reserved. This information is not intended as a substitute for professional medical care. Always follow your healthcare professional's instructions. [address] Discharge Instructions HOME CARE FOLLOWING KNEE ARTHROSCOPY Person(s) Taught: patient GENERAL: Knee arthroscopy allows major surgery to be performed quickly and through minor incisions. The degree of swelling and discomfort you experience will vary depending upon what type of surgery was actually done inside of your knee. There are risks associated with every type of surgery; risks of knee arthroscopy include (but are not limited to): infection, blood clots, anesthesia reactions, stiffness, damage to normal structures (including ligaments, nerves, blood vessels, etc), persisting pain, bleeding and others. ICE: Apply ice to the front portion of your knee as much as possible over the first 3 to 4 days following surgery (20-30 minutes every few hours) and keep it elevated. This will help limit swelling. The ice should be in a sealed container to keep your dressing dry. DRESSING: Covering your incisions are clean bandages held in place by a white support stocking. Wearthe support stocking(s) until you are seen in my office for removal of stitches (usually 16-18 days after surgery). These stockings will limit swelling and reduce your risk of blood clots. You may remove them for showers and at night after wound drainage stops. SHOWER: You may shower 2 to 3 days after surgery. Keep direct shower spray off of your knee. Do not take a bath or submerge your knee in water for 2-3 weeks after surgery. After your shower, place a band-aid over each incision. If you have drainage from an incision, you may need to use clean gauze as a dressing until drainage slows. Replace the support stocking. MEDICATION: A prescription for a strong narcotic pain killer is provided. Use these only as needed. Take them as directed. Be sure to eat; pain medications taken on an empty stomach can cause GI upset.Usually, after several days, Tylenol or ibuprofen is enough for pain. ACTIVITY: It is ok to place weight on the operated leg immediately after surgery, unless you were specifically given instructions otherwise. Use a walker, crutches, or a cane as needed after surgery until you can get around safely without this assistance. Try not to 'over do it' the first days after paredes rgery. As your knee feels better and better after surgery, you can do more and more. EXERCISES: Immediately after surgery, begin ankle pumps (flexing your ankle up and down) every hour while you are awake to increase circulation. Also, begin straight leg lifts (holdleg up with knee as straight as possible for 3-5 seconds, four times daily), and begin working on bending and straightening your knee. Our goal is for you to regain all of your knee motion as soon as possible, but work within your pain limits. PHYSICAL THERAPY: This may be required after surgery to regain your knee's full potential. Together,we will make the decision to pursue therapy at your first or second follow-up visit after surgery. FOLLOW-UP: You will be given a follow-up appointment to have stitches removed 16-18 days after surgery. If you have questions regarding your appointment timing, please call. POTENTIAL PROBLEMS: The recovery course is variable depending on you and the work done in your knee.If you have pain remaining severe 48 hours after surgery, chest pain, shortness of breath, fever over 101 degrees past the first 48 hours after surgery, excessive drainage (some bleeding and drainage is expected), or other problems that concern you, please call my office at [phone]. DISCHARGE INSTRUCTIONS: For 48 hours after receiving general anesthesia your reactions are slower, you may be dizzy, nauseated, lightheaded, and/or have a headache or short term memory loss. Therefore: A. DON'T DRINK alcoholic beverages. B. DON'T DRIVE your car, operate machinery or power tools. C. DON'T MAKE any important decisions. D. You may resume your prescribed medications as directed. E. We strongly suggest you have a responsible adult with you the rest of today and also during the night for your protection and safety. DIET: No Restrictions MEDICATIONS - See Discharge Medication List FOLLOW-UP APPOINTMENTS: LAB: n XRAY: n Friday at 09:30 am with Matt VACA IF ANY PROBLEMS OR CONCERNS, PLEASE CONTACT YOUR DOCTOR OR CALL THE PATIENT ADVISORY NURSE AT [phone] OR EMERGENCY ROOM AT [phone], ext: [phone]. ext: surgical services [phone], med-surge [phone] Physician: Dr Mijares Office: You may receive a Customer Satisfaction survey in the mail from [employer]. If you receive this survey, we would ask that you take the time to complete it and return it. Your comments and suggestions are important to us; we are always looking for ways to improve the service we provide. Thank you for choosing [facility]. It was a pleasure to serve you. This document has images extracted. Please consider using [employer] for all your patient education needs. Source: [employer] Document Id: [id number] ERCIAL TITLE EXAMINER Dk Mijares M.D. - 07/20/2013 5:00 PM CST Hospital Discharge Medication List [address] [address] Discharge Medication List Name: HUSSEIN WHITTAKER Current Date: 07/20/2013 17:00:47 : 1960 12:00 AM [facility] Number: [id number] Patient Address: [address] [place] [id number] Patient Primary Care Provider: Name: HARVINDER STUBBS III, MD Discharge Diagnosis: [facility] in [place] would like to thank you for allowing us to assist you withyour healthcare needs. The following includes patient education materials and information regarding your injury/illness. Medications Medication/Strength Dose Route Frequency Indications/Special Instructions/Comments/Notes HYDROcodone-acetaminophen (Glenrock 5 mg-325 mg oral tablet) 2 tab(s) Oral every 6 hours as needed for Pain No more than 4,000mg acetaminophen/24hrs omeprazole (omeprazole 40 mg oral delayed release [...] at all times in case of emergency. Comment: Electronically Signed By: DK MIJARES MD Signed On:20-JUL-2013 17:00:45 Source: [employer] Document Id: [id number] ERCIAL TITLE EXAMINER documented in this encounter Medications at Time of Discharge Medication Sig Dispensed Refills Start Date End Date ASPIRIN ORAL Take 1 tablet by mouth daily. 0 01/1804/13/2021 documented as of this encounter Procedure Notes Jelena Vance R.N. - 07/20/2013 10:46 AM CST Preprocedure Checklist Document Has Been Updated Preprocedure Checklist Entered On: 07/20/2013 10:54 COMMERCIAL TITLE EXAMINER Performed On: 07/20/2013 10:46 COMMERCIAL TITLE EXAMINER by JELENA VANCE RN Checklist Last Fluid Intake : 07/19/2013 22:00 COMMERCIAL TITLE EXAMINER Last Food Intake : 07/19/2013 22:00 COMMERCIAL TITLE EXAMINER JELENA VANCE RN - 07/20/2013 10:46 COMMERCIAL TITLE EXAMINER Surgery Prep Grid Contacts/Glasses Removed : NA Dentures Removed : NA Hairpins/Hairpiecies Removed : NA Hearing Aid Removed : NA Home Prep Complete : NA Jewelry/Piercing Removed : NA Makeup/Nail Japanese Removed : NA Oral Hygiene : NA Preop Scrub AM of Surgery : Yes Preop Scrub Night Prior to Surgery : Yes Prosthesis Removed : NA Surgical Prep Verified : Yes Tampon Removed : NA Wearing Patient Gown : Yes Voided distribution analyst to procedure : Yes JELENA VANCE RN - 07/20/2013 10:46 COMMERCIAL TITLE EXAMINER Surgical Preparation : N/A JELENA VANCE RN - 07/20/2013 10:46 COMMERCIAL TITLE EXAMINER Patient Rights Grid Blood Consent Signed : NA Surgical/Procedure Consent Signed : Yes JELENA VANCE RN - 07/20/2013 10:46 COMMERCIAL TITLE EXAMINER Family Location : [place] distribution analyst JELENA VANCE RN - 07/20/2013 10:46 COMMERCIAL TITLE EXAMINER Checklist II Patient Safety Grid Allergy Band on and Verified : Yes Anesthesia Consult : Yes Band on for Limb Alert : NA Blood Band on and Verified : NA Current ECG in Medical Record : NA Current H&P in Medical Record : Yes Implants Verified : NA Medication Reconciliation on Chart : Yes Pacemaker/AICD Verified : NA ID Band on and Verified : Yes Preop Medications Sent With Patient : NA Relevant Images in Medical Record : Yes Review of Labs : NA Procedure/Site Verified by Patient/Family : Yes Procedure/Site Verified by RN : Yes Procedure/Site Verified by Physician : Yes Type & Screen/Type & Cross Completed : NA JELENA VANCE RN - 07/20/2013 10:46 COMMERCIAL TITLE EXAMINER RN Who Verified Site : JELENA VANCE RN Physician Who Verified Site : DK MIJARES MD, GWYNNE A RN - 07/20/2013 10:46 COMMERCIAL TITLE EXAMINER BALDO Screening Known Obstructive Sleep Apnea : No - NOT diagnosed with BALDO JELENA VANCE RN - 07/20/2013 10:46 COMMERCIAL TITLE EXAMINER BALDO Assessment Do you have high blood pressure or have you been told to take medication for high blood pressure? : No Frequency of Snoring : Sometimes (1-2 times per month) Frequency of Gasping, Choking, Snorting : Never Total Number of Historical Features : 0 Neck Circumference (cm) : 46/47 Total Sleep Apnea Clinical Score Calc : 10 JELENA VANCE RN - 07/20/2013 10:46 COMMERCIAL TITLE EXAMINER Valuables/Belongings Valuables/Belongings Grid Valuables at Bedside Clothes, Patient Valuables : Jacket, Pants, Shirt, Shoes JELENA VANCE RN - 07/20/2013 10:46 COMMERCIAL TITLE EXAMINER Room Orientation/Facility Policy Reviewed : Yes Home Medication Disposition : None brought in with patient JELENA VANCE RN - 07/20/2013 10:46 COMMERCIAL TITLE EXAMINER Education Preprocedure Education Grid Procedure Type : left knee arthroscopy Education Topics : Anesthesia/Sedation, Plan of care Individuals Taught : Patient Barriers to Learning : None evident Teaching Method : Explanation Teaching Evaluation : Verbalizes understanding JELENA VANCE RN - 07/20/2013 10:46 COMMERCIAL TITLE EXAMINER Preop Holding Mode of Arrival : Ambulatory Preoperative Orders Complete : Yes JELENA VANCE RN - 07/20/2013 10:46 COMMERCIAL TITLE EXAMINER Advance Directive Advanced Directives : No JELENA VANCE RN - 07/20/2013 10:46 COMMERCIAL TITLE EXAMINER Vital Signs Temperature Core : 37 DegC(Converted to: 98.6 DegF) Peripheral Pulse Rate : 66 /min Respiratory Rate : 16 /min Systolic Blood Pressure : 130 mmHg Diastolic Blood Pressure : 86 mmHg NIBP Mean : 101 mmHg SpO2 : 97 % Oxygen Saturation Monitoring Frequency : Intermittent Oxygen Therapy : Room air Height : 182 cm(Converted to: 6 ft 0 inch(es)) Height Source : Estimated Estimated Weight : 110.9 kg Estimated Weight Conversion to Pounds : 243.98 lb JELENA VANCE RN - 07/20/2013 10:46 COMMERCIAL TITLE EXAMINER Allergy (As Of: 07/20/2013 10:54:49 COMMERCIAL TITLE EXAMINER) Allergies (Active) Nyquil Cold Medicine Estimated Onset Date: Unspecified ; Created By: LAURIE KAUFFMAN; Reaction Status:Active ; Category: Drug ; Substance: Nyquil Cold Medicine ; Type: Allergy ; Updated By: LAURIE KAUFFMAN; Reviewed Date: 06/18/2013 9:05 COMMERCIAL TITLE EXAMINER Preprocedural Pause Correct Patient Identity : Patient verbalizes self, Patient wristband ID, Patient verbalizes Correct Procedure Site and Side : left knee arthroscopy with partial medial meniscectomy Correct Procedure Site/Side Verified By : Patient/responsible republican, Nurse, MD Site Marking : Yes Pre-Procedure Pause Verbal Confirm. of : Procedure, Site, Side, Patient Position, Patient ID JELENA VANCE RN - 07/20/2013 10:46 COMMERCIAL TITLE EXAMINER Source: [facility] [employer] Document Id: [id number] COMMERCIAL TITLE EXAMINER!95 ERCIAL TITLE EXAMINER documented in this encounter Nursing Notes Jelena Vance R.N. - 07/20/2013 10:56 AM CST Influenza Immunization Asmt Influenza Immunization Asmt Entered On: 07/20/2013 10:56 COMMERCIAL TITLE EXAMINER Performed On: 07/20/2013 10:56 COMMERCIAL TITLE EXAMINER by JELENA VANCE RN Influenza Protocol Influenza Vaccine Exclusions : Previously immunized this flu season JELENA VANCE RN - 07/20/2013 10:56 COMMERCIAL TITLE EXAMINER Source: [facility] [employer] Document Id: [id number] COMMERCIAL TITLE EXAMINER!3 ERCIAL TITLE EXAMINER Jelena Vance R.N. - 07/20/2013 10:56 AM CST Pneumonia Immunization Assessment Pneumonia Immunization Assessment Entered On: 07/20/2013 10:57 COMMERCIAL TITLE EXAMINER Performed On: 07/20/2013 10:56 COMMERCIAL TITLE EXAMINER by JELENA VANCE RN Pneumonia Protocol Pneumococcal Vaccine Exclusions : Patient has none of the below exclusions Pneumococcal Vaccine Age Group : Age 5 to 64 Pneumococcal Criteria 5 to 64 : Patient has none of the below criteria, vaccine is not indicated Pneumococcal Vaccine Candidate : No - Patient does not meet the criteria JELENA VANCE RN - 07/20/2013 10:56 COMMERCIAL TITLE EXAMINER Source: [facility] [employer] Document Id: [id number] COMMERCIAL TITLE EXAMINER!6 ERCIAL TITLE EXAMINER Jelena Vance R.N. - 07/20/2013 10:30 AM CST Day Surgery Admission History/Asmt Adult Document Has Been Updated Day Surgery Admission History/Asmt Adult Entered On: 07/20/2013 10:45 COMMERCIAL TITLE EXAMINER Performed On: 07/20/2013 10:30 COMMERCIAL TITLE EXAMINER by JELENA VANCE RN General Info Preferred Name : Ray Admitted From : Non-Health Care Facility Point of Origin Mode of Arrival : Ambulatory Accompanied By : Alone Chief Complaint : left knee scope Preferred Communication Mode : Verbal Information Given By : Patient Languages : South Sudanese Have you received chemotherapy in last 48 hours? : No JELENA VANCE RN - 07/20/2013 10:30 COMMERCIAL TITLE EXAMINER Allergy (As Of: 07/20/2013 10:45:58 COMMERCIAL TITLE EXAMINER) Allergies (Active) Nyquil Cold Medicine Estimated Onset Date: Unspecified ; Created By: JAMARI, LAURIE M; Reaction Status:Active ; Category: Drug ; Substance: Nyquil Cold Medicine ; Type: Allergy ; Updated By: LAURIE KAUFFMAN; Reviewed Date: 06/18/2013 9:05 COMMERCIAL TITLE EXAMINER Anesth/Transfusion Anesthesia/Transfusions : Prior anesthesia JELENA VANCE RN - 07/20/2013 10:30 COMMERCIAL TITLE EXAMINER ID Screen Drug Resistant Organism : No JELENA VANCE RN - 07/20/2013 10:30 COMMERCIAL TITLE EXAMINER Nutrition Nutrition Risk Factors by History Adult : None Home Diet : Regular Feeding Ability : Complete independence Eating Difficulties : None Appetite : Excellent JELENA VANCE RN - 07/20/2013 10:30 COMMERCIAL TITLE EXAMINER Home Environment Current Daily Living Assistance : None Living Situation : Home independently Home Equipment : None Sensory Deficits : None Mobility Assistance Prior to Admission : Independent Current Home Treatments : None Professional Skilled Services : None Special Services and Community Resources : None JELENA VANCE RN - 07/20/2013 10:30 COMMERCIAL TITLE EXAMINER Dependent Habits Tobacco Use/Currently Using : No Exposure to Tobacco Smoke : Care provider denies smoking in home Smoking Status : Former smoker JELENA VANCE RN - 07/20/2013 10:30 COMMERCIAL TITLE EXAMINER Tobacco Use Grid Type : Cigarettes Last Use : 1996 JELENA VANCE RN - 07/20/2013 10:30 COMMERCIAL TITLE EXAMINER Caffeine Use Grid Caffeine Use : None JELENA VANCE RN - 07/20/2013 10:30 COMMERCIAL TITLE EXAMINER Recreational Drug Use Grid Drug Use : None JELENA VANCE RN - 07/20/2013 10:30 COMMERCIAL TITLE EXAMINER Psychosocial Adult Domestic Abuse Concerns : None Rastafari Preference : No qualifying data available. JELENA VANCE RN - 07/20/2013 10:30 COMMERCIAL TITLE EXAMINER Advance Directive Advanced Directives : No JELENA VANCE RN - 07/20/2013 10:30 COMMERCIAL TITLE EXAMINER Educ Needs Patient/Family Education Needs : Plan of care JELENA VANCE RN - 07/20/2013 10:30 COMMERCIAL TITLE EXAMINER Learning Style Preference Adult Grid Patient : Verbal explanation Family : None JELENA VANCE RN - 07/20/2013 10:30 COMMERCIAL TITLE EXAMINER Education Preprocedure Education Grid Procedure Type : left knee arthroscopy with partial medial meniscectomy Education Topics : Anesthesia/Sedation, Plan of care Individuals Taught : Patient Barriers to Learning : None evident Teaching Method : Explanation Teaching Evaluation : Verbalizes understanding JELENA VANCE RN - 07/20/2013 10:30 COMMERCIAL TITLE EXAMINER Outpatient Assessment Procedural Respiratory : Respirations unlabored, Respiratory pattern regular, Breath sounds clear all lobes Procedural Cardiovascular : Heart rhythm regular, Skin color normal for ethnicity, Skin dry and warm Procedural Antiembolism Device : Sequential Compression Device Procedural Neurological : Alert, Oriented x 3, Gait steady Procedural Gastrointestinal : Abdomen non-tender and soft Procedural Genitourinary : Voiding, no difficulties Procedural Integumentary : Skin integrity intact Procedural Musculoskeletal : Activity tolerance without distress JELENA VANCE RN - 07/20/2013 10:30 COMMERCIAL TITLE EXAMINER Psycho/Emotional Pain Symptoms : No Affect/Behavior : Calm, Cooperative, Appropriate JELENA VANCE RN - 07/20/2013 10:30 COMMERCIAL TITLE EXAMINER Peripheral IV Peripheral IV Assess/Intervention Grid Peripheral IV #1 IV Activity : Start Number of Attempts : 1 Date of Insertion : 07/20/2013 COMMERCIAL TITLE EXAMINER IV Site : Hand Laterality : Left Catheter Size : 20 Catheter Type : Protective Site Condition : No complications Drainage Description : None Infiltration Score : 0 Phlebitis Score : 0 Flow/ Patency : No complications JELENA VANCE RN - 07/20/2013 10:30 COMMERCIAL TITLE EXAMINER Carlos Sensory Perception Carlos : No impairment Moisture Carlos : Rarely moist Activity Carlos : Walks frequently Mobility Carlos : No limitations Nutrition Carlos : Excellent Friction and Shear Carlos : Potential problem Carlos Score : 22 JELENA VANCE RN - 07/20/2013 10:30 COMMERCIAL TITLE EXAMINER Hendrich II Fall Risk Confusion/Disorientation Hendrich : No Depression Fall Risk Hendrich : No Altered Elimination Fall Risk Hendrich : No Dizziness/Vertigo Fall Risk Hendrich : No Gender, Male Fall Risk Hendrich : Yes Prescribed Antiepileptics Hendrich : No Prescribed Benzodiazepines Hendrich : No Rising From Chair Fall Risk Hendrich : Pushes up, successful in one attempt Fall Risk Score Hendrich II : 2 JELENA VANCE RN - 07/20/2013 10:30 COMMERCIAL TITLE EXAMINER DC Needs Anticipated Discharge Date : 07/20/2013 COMMERCIAL TITLE EXAMINER Discharge To, Anticipated : Home with family assisted Treatments, Anticipated : None Home Equipment, Anticipated : None Professional Skilled Services, Anticipated : None Special Serv & Comm Res, Anticipated : None Needs Assistance with Transportation : No Needs Assistance at Home Upon Discharge : No JELENA VANCE RN - 07/20/2013 10:30 COMMERCIAL TITLE EXAMINER FLACC Face FLACC : No particular expression or smile Legs FLACC : Normal position or relaxed Activity FLACC : Lying quietly, normal position, moves easily Cry FLACC : No cry, awake or asleep Consolabillity FLACC : Content, relaxed FLACC Pain Scale Score : 0 JELENA VANCE RN - 07/20/2013 10:30 COMMERCIAL TITLE EXAMINER Urinary Catheter Urinary Catheter Activity Type : Other: none JELENA VANCE RN - 07/20/2013 10:30 COMMERCIAL TITLE EXAMINER Integumentary Integumentary Patient Stated Symptoms : None Skin Turgor : Elastic Skin Integrity : Intact Mucous Membrane Color : [place] Mucous Membrane Description : Moist Skin Color : Normal for ethnicity Skin Description : Dry Skin Temperature : Warm JELENA VANCE RN - 07/20/2013 10:30 COMMERCIAL TITLE EXAMINER Source: [employer] Document Id: [id number] COMMERCIAL TITLE EXAMINER!135 ERCIAL TITLE EXAMINER documented in this encounter OR Notes Op Note - Dk Mijares M.D. 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 PROCEDURE: Left knee arthroscopy, partial medial meniscectomy. SURGEON: Dk Mijares M.D. ANESTHESIA: Spinal anesthesia. ESTIMATED BLOOD LOSS: Minimal. INDICATIONS: Talon is a 52-year-old man who has been suffering with left knee pain. X-rays and MRI demonstrated medial meniscus tear but also significant degenerative changes. Despite conservative measures he made no significant improvement in regards to his symptoms. We discussed risks, benefits and alt ernatives to knee arthroscopy, meniscectomy as indicated with him, he understands these and desires to proceed with surgery. OPERATIVE SUMMARY: Patient brought to the operating room, placed on the operating table in the seated position. Spinal anesthesia was smoothly induced. He was then placed in the supine position, a tourniquet was placed around his left thigh, left leg was then prepped and draped in sterile fashion. Theleg was then exsanguinated, tourniquet inflated to 350 mmHg. An injection of 1% Lidocaine with Epinephrine was placed in the medial lateral joint, a small incision made laterally, a trocar was advancedthrough the incision into the knee joint, the knee joint was then filled with Saline, the patellofemoral joint was then visualized. He was noted have Grade 2 changes to the undersurface of the patella as well as the femoral trochlea. The medial gutter was visualized, there were no loose bodies seen. The medial compartment was then visualized, a small incision made there, the probe was then used to investigate. He is noted have significant tearing to the entire posterior aspect of the medial meniscus. A punch was then used to remove this portion of the meniscus followed by shaver to shave it to a smooth transition. He is also noted to have Grade 4 changes on the medial femoral condyle and medial tibial plateau that were kissing lesions. The area was surrounded by Grade 3 changes as well. The notchwas visualized, the ACL and PCL were noted to be intact. The lateral compartment was then visualized noted to have no significant degenerative changes and no meniscal tearing. The lateral gutters were visualized, there were no loose bodies seen. The knee was then suctioned out, filled with Marcaine, the incision was then closed using 4-0 Monocryl in interrupted fashion followed by Steri-strips, a nonadherent dressing, an John bandage. Tourniquet was let down and patient transferred to the recovery room in good condition. Needle, instrument and sponge counts correct at the end of the case. Dk Mijares M.D./vikki Electronically Signed By: DK MIJARES MD On: 07/20/2013 01:19 PM Source: [email or web address] Document Id: [id number] ERCIAL TITLE EXAMINER documented in this encounter Miscellaneous Notes Miscellaneous - Huseyin Daily, RFarshadN. - 07/20/2013 1:58 PM CST Adult Postprocedure Assessment Adult Postprocedure Assessment Entered On: 07/20/2013 13:58 COMMERCIAL TITLE EXAMINER Performed On: 07/20/2013 13:58 COMMERCIAL TITLE EXAMINER by HUSEYIN DAILY RN Vital Signs Temperature Core : 36.3 DegC(Converted to: 97.3 DegF) (LOW) Peripheral Pulse Rate : 60 /min Respiratory Rate : 14 /min Systolic Blood Pressure : 147 mmHg (HI) Diastolic Blood Pressure : 89 mmHg NIBP Mean : 108 mmHg BP Location : Right upper extremity SpO2 : 99 % Oxygen Saturation Monitoring Frequency : Continuous Oxygen Therapy : Room air Height : 182 cm(Converted to: 6 ft 0 inch(es)) HUSEYIN DAILY RN - 07/20/2013 13:49 COMMERCIAL TITLE EXAMINER General Level of Consciousness : Alert Orientation : Oriented x 3 Skin Color : Normal for ethnicity Skin Description : Dry Skin Temperature : Warm Pain Symptoms : No HUSEYIN DAILY RN - 07/20/2013 13:49 COMMERCIAL TITLE EXAMINER FLACC Face FLACC : No particular expression or smile Legs FLACC : Normal position or relaxed Activity FLACC : Lying quietly, normal position, moves easily Cry FLACC : No cry, awake or asleep Consolabillity FLACC : Content, relaxed FLACC Pain Scale Score : 0 HUSEYIN DAILY RN - 07/20/2013 13:49 COMMERCIAL TITLE EXAMINER Cardiovascular Heart Rhythm : Regular HUSEYIN DAILY RN - 07/20/2013 13:49 COMMERCIAL TITLE EXAMINER Respiratory Anesthesia Type : MAC, Spinal Respiratory Pattern : Regular Respirations : Unlabored All Lobes Breath Sounds : Clear HUSEYIN DAILY RN - 07/20/2013 13:49 COMMERCIAL TITLE EXAMINER GI/ Nausea Symptoms : No HUSEYIN DAILY RN - 07/20/2013 13:49 COMMERCIAL TITLE EXAMINER Integumentary Skin Color : Normal for ethnicity Skin Description : Dry Skin Temperature : Warm HUSEYIN DAILY RN - 07/20/2013 13:49 COMMERCIAL TITLE EXAMINER Incision/Wound Incision/Wound Care Grid Activity : Assessed Type : Other: arthroscopy Location : Knee Laterality : Left Description : Dry HUSEYIN DAILY RN - 07/20/2013 13:49 COMMERCIAL TITLE EXAMINER Peripheral IV Peripheral IV Assess/Intervention Grid Peripheral IV #1 IV Activity : Discontinue Number of Attempts : 1 Date of Insertion : 07/20/2013 COMMERCIAL TITLE EXAMINER IV Site : Hand Laterality : Left Catheter Size : 20 Catheter Type : Protective HUSEYIN DAILY 07/20/2013 13:49 COMMERCIAL TITLE EXAMINER Neurologic Swallowing Difficulty/Aspiration Risk : None Extremity Movement : Equal Facial Symmetry : Symmetric Characteristics of Speech : Appropriate for age HUSEYIN DAILY 07/20/2013 13:49 COMMERCIAL TITLE EXAMINER Neurological Strengths Grid Left Lower Extremity Right Lower Extremity Sensation : Intact Intact HUSEYIN DAILY 07/20/2013 13:49 COMMERCIAL TITLE EXAMINER HUSEYIN DAILY 07/20/2013 13:49 COMMERCIAL TITLE EXAMINER Lower Extremity Nail Bed Color Feet Grid Left Foot : [place] Right Foot : [place] HUSEYIN DAILY 07/20/2013 13:49 COMMERCIAL TITLE EXAMINER Capillary Refill Feet Grid Left Foot : < 2 seconds Right Foot : < 2 seconds HUSEYIN DAILY 07/20/2013 13:49 COMMERCIAL TITLE EXAMINER NV Lower Extremity Color Grid Left : [place] Right : [place] HUSEYIN DAILY 07/20/2013 13:49 COMMERCIAL TITLE EXAMINER NV Lower Extremity Temperature Grid Left : Warm Right : Warm HUSEYIN DAILY 07/20/2013 13:49 COMMERCIAL TITLE EXAMINER Lower Extremity Peripheral Pulses Grid Dorsalis Pedis Pulse, Left : 2+ Normal HUSEYIN DAILY 07/20/2013 13:49 COMMERCIAL TITLE EXAMINER Lower Extremity Sensation NV Grid Medial/Lateral Surfaces Sole of Left Foot : Decreased, Intact Medial/Lateral Surfaces Sole of Right Foot : Decreased, Intact Web Space Between Great and Second Toe Left Foot : Decreased, Intact Web Space Between Great and Second Toe Right Foot : Decreased, Intact HUSEYIN DAILY 07/20/2013 13:49 COMMERCIAL TITLE EXAMINER Lower Extremity Strength NV Grid Plantar Flexion Left Foot : Normal 5 Plantar Flexion Right Foot : Normal 5 Dorsiflex Foot/Extend Toes Left : Normal 5 Dorsiflex Foot/Extend Toes Right : Normal 5 HUSEYIN DAILY 07/20/2013 13:49 COMMERCIAL TITLE EXAMINER Activity Patient Position : Elevate head of bed 45 degrees Activity Status ADL : Up ad bob Activity Assistance : Independent HUESYIN DAILY 07/20/2013 13:49 COMMERCIAL TITLE EXAMINER PARSAP Activity Status : Moves 4 extremities voluntarily or on command Dressing : None Respiratory Component : Able to deep breathe and cough freely Pain : Pain free Circulation Component : BP 20% of preanesthetic level Ambulation : Able to stand up and walk straight Consciousness : Fully awake Fasting and Feeding : Able to drink fluids Oxygen Saturation - Sedation : Can maintain > 92% on room air Urine Output, PARSAP : Not assessed PARSAP Score : 20 HUSEYIN DAILY RN - 07/20/2013 13:49 COMMERCIAL TITLE EXAMINER [place] Agitation Sedation Scale (RASS) : Alert and calm RASS Score : 0 HUSEYIN DAILY RN - 07/20/2013 13:49 COMMERCIAL TITLE EXAMINER Carlos Sensory Perception Carlos : No impairment Moisture Carlos : Rarely moist Activity Carlos : Walks frequently Mobility Carlos : No limitations Nutrition Carlos : Adequate Friction and Shear Carlos : No apparent problem Carlos Score : 22 HUSEYIN DAILY RN - 07/20/2013 13:49 COMMERCIAL TITLE EXAMINER Hendrich II Fall Risk Confusion/Disorientation Hendrich : No Depression Fall Risk Hendrich : No Altered Elimination Fall Risk Hendrich : No Dizziness/Vertigo Fall Risk Hendrich : No Gender, Male Fall Risk Hendrich : Yes Prescribed Antiepileptics Hendrich : No Prescribed Benzodiazepines Hendrich : Yes Rising From Chair Fall Risk Hendrich : Able to rise in a single movement, no loss of balance with steps Fall Risk Score Hendrich II : 2 HUSEYIN DAILY RN - 07/20/2013 13:49 COMMERCIAL TITLE EXAMINER Safe Patient Handling Safe Pt Handling Independent : Yes - No equipment needed Safe Pt Handling Equipment Rec : No Equipment Needed HUSEYIN DAILY RN - 07/20/2013 13:49 COMMERCIAL TITLE EXAMINER Education General Patient Education [employer] Topics : Printed materials Individuals Taught : Patient Barriers to Learning : None evident Teaching Method : Printed materials Teaching Evaluation : Verbalizes understanding HUSEYIN DAILY RN - 07/20/2013 13:49 COMMERCIAL TITLE EXAMINER Source: [facility] [employer] Document Id: [id number] COMMERCIAL TITLE EXAMINER!141 ERCIAL TITLE EXAMINER Miscellaneous - Huseyin Daily R.N. - 07/20/2013 1:33 PM CST Adult Postprocedure Assessment Adult Postprocedure Assessment Entered On: 07/20/2013 13:40 COMMERCIAL TITLE EXAMINER Performed On: 07/20/2013 13:33 COMMERCIAL TITLE EXAMINER by HUSEYIN DAILY RN Vital Signs Temperature Core : 36.1 DegC(Converted to: 97.0 DegF) (LOW) Peripheral Pulse Rate : 59 /min (LOW) Respiratory Rate : 16 /min Systolic Blood Pressure : 133 mmHg Diastolic Blood Pressure : 84 mmHg NIBP Mean : 100 mmHg BP Location : Right upper extremity SpO2 : 98 % Oxygen Saturation Monitoring Frequency : Continuous Oxygen Therapy : Room air Height : 182 cm(Converted to: 6 ft 0 inch(es)) HUSEYIN DAILY 07/20/2013 13:33 COMMERCIAL TITLE EXAMINER General Level of Consciousness : Alert Orientation : Oriented x 3 Skin Color : Normal for ethnicity Skin Description : Dry Skin Temperature : Warm Pain Symptoms : No HUSEYIN DAILY 07/20/2013 13:33 COMMERCIAL TITLE EXAMINER FLACC Face FLACC : No particular expression or smile Legs FLACC : Normal position or relaxed Activity FLACC : Lying quietly, normal position, moves easily Cry FLACC : No cry, awake or asleep Consolabillity FLACC : Content, relaxed FLACC Pain Scale Score : 0 HUSEYIN DAILY 07/20/2013 13:33 COMMERCIAL TITLE EXAMINER Cardiovascular Heart Rhythm : Regular HUSEYIN DAILY 07/20/2013 13:33 COMMERCIAL TITLE EXAMINER Respiratory Anesthesia Type : MAC, Spinal Respiratory Pattern : Regular Respirations : Unlabored HUSEYIN DAILY 07/20/2013 13:33 COMMERCIAL TITLE EXAMINER GI/ Nausea Symptoms : No HUSEYIN DAILY 07/20/2013 13:33 COMMERCIAL TITLE EXAMINER Integumentary Skin Color : Normal for ethnicity Skin Description : Dry Skin Temperature : Warm HUSEYIN DAILY 07/20/2013 13:33 COMMERCIAL TITLE EXAMINER Incision/Wound Incision/Wound Care Grid Activity : Assessed Type : Other: arthroscopy Location : Knee Laterality : Left Description : Dry HUSEYIN DAILY 07/20/2013 13:33 COMMERCIAL TITLE EXAMINER Peripheral IV Peripheral IV Assess/Intervention Grid Peripheral IV #1 IV Activity : Discontinue Number of Attempts : 1 Date of Insertion : 07/20/2013 COMMERCIAL TITLE EXAMINER IV Site : Hand Laterality : Left Catheter Size : 20 Catheter Type : Protective Site Condition : No complications Drainage Description : None HUSEYIN DAILY 07/20/2013 13:33 COMMERCIAL TITLE EXAMINER I&O Oral Intake : 100 mL Other Intake : 100 mL (Comment: I.V. fluids [HUSEYIN DAILY 07/20/2013 13:33 COMMERCIAL TITLE EXAMINER] ) HUSEYIN DAILY 07/20/2013 13:33 COMMERCIAL TITLE EXAMINER Nutrition Lunch : 100 % HUSEYIN DAILY 07/20/2013 13:33 COMMERCIAL TITLE EXAMINER Neurologic Swallowing Difficulty/Aspiration Risk : None Extremity Movement : Equal Facial Symmetry : Symmetric Characteristics of Speech : Appropriate for age HUSEYIN DAILY 07/20/2013 13:33 COMMERCIAL TITLE EXAMINER Neurological Strengths Grid Left Lower Extremity Right Lower Extremity Sensation : Decreased Decreased HUSEYIN DAILY 07/20/2013 13:33 COMMERCIAL TITLE EXAMINER HUSEYIN DAILY 07/20/2013 13:33 COMMERCIAL TITLE EXAMINER Lower Extremity Nail Bed Color Feet Grid Left Foot : [place] Right Foot : [place] HUSEYIN DIALY 07/20/2013 13:33 COMMERCIAL TITLE EXAMINER Capillary Refill Feet Grid Left Foot : < 2 seconds Right Foot : < 2 seconds HUSEYIN DAILY 07/20/2013 13:33 COMMERCIAL TITLE EXAMINER NV Lower Extremity Color Grid Left : [place] Right : [place] HUSEYIN DAILY 07/20/2013 13:33 COMMERCIAL TITLE EXAMINER NV Lower Extremity Temperature Grid Left : Warm Right : Warm HUSEYIN DAILY 07/20/2013 13:33 COMMERCIAL TITLE EXAMINER Lower Extremity Peripheral Pulses Grid Dorsalis Pedis Pulse, Left : 2+ Normal HUSEYIN DAILY 07/20/2013 13:33 COMMERCIAL TITLE EXAMINER Lower Extremity Sensation NV Grid Medial/Lateral Surfaces Sole of Left Foot : Decreased Medial/Lateral Surfaces Sole of Right Foot : Decreased Web Space Between Great and Second Toe Left Foot : Decreased Web Space Between Great and Second Toe Right Foot : Decreased HUSEYIN DAILY 07/20/2013 13:33 COMMERCIAL TITLE EXAMINER Activity Patient Position : Elevate head of bed 45 degrees HUSEYIN DAILY 07/20/2013 13:33 COMMERCIAL TITLE EXAMINER PARSAP Activity Status : Moves 4 extremities voluntarily or on command Dressing : Dry and clean Respiratory Component : Able to deep breathe and cough freely Pain : Pain free Circulation Component : BP 20% of preanesthetic level Consciousness : Fully awake Fasting and Feeding : Able to drink fluids Oxygen Saturation - Sedation : Can maintain > 92% on room air Urine Output, PARSAP : Not assessed HUSEYIN DAILY 07/20/2013 13:33 COMMERCIAL TITLE EXAMINER [place] Agitation Sedation Scale (RASS) : Alert and calm RASS Score : 0 HUSEYIN DAILY 07/20/2013 13:33 COMMERCIAL TITLE EXAMINER Carlos Sensory Perception Carlos : No impairment Moisture Carlos : Rarely moist Activity Carlos : Bedfast Mobility Carlos : Very limited Nutrition Carlos : Adequate Friction and Shear Carlos : No apparent problem Carlos Score : 17 HUSEYIN DAILY RN - 07/20/2013 13:33 COMMERCIAL TITLE EXAMINER Hendrich II Fall Risk Confusion/Disorientation Hendrich : No Depression Fall Risk Hendrich : No Altered Elimination Fall Risk Hendrich : No Dizziness/Vertigo Fall Risk Hendrich : No Gender, Male Fall Risk Hendrich : Yes Prescribed Antiepileptics Hendrich : No Prescribed Benzodiazepines Hendrich : Yes Rising From Chair Fall Risk Hendrich : Able to rise in a single movement, no loss of balance with steps Fall Risk Score Hendrich II : 2 HUSEYIN DAILY RN - 07/20/2013 13:33 COMMERCIAL TITLE EXAMINER Safe Patient Handling Safe Pt Handling Independent : Yes - No equipment needed Safe Pt Handling Equipment Rec : No Equipment Needed HUSEYIN DAILY RN - 07/20/2013 13:33 COMMERCIAL TITLE EXAMINER Source: [employer] Document Id: [id number] COMMERCIAL TITLE EXAMINER!130 ERCIAL TITLE EXAMINER Miscellaneous - Huseyin Daily R.N. - 07/20/2013 1:19 PM CST Adult Postprocedure Assessment Adult Postprocedure Assessment Entered On: 07/20/2013 13:26 COMMERCIAL TITLE EXAMINER Performed On: 07/20/2013 13:19 COMMERCIAL TITLE EXAMINER by HUSEYIN DAILY RN Vital Signs Temperature Core : 36.2 DegC(Converted to: 97.2 DegF) (LOW) Peripheral Pulse Rate : 59 /min (LOW) Respiratory Rate : 16 /min Systolic Blood Pressure : 124 mmHg Diastolic Blood Pressure : 79 mmHg NIBP Mean : 94 mmHg BP Location : Right upper extremity SpO2 : 96 % Oxygen Saturation Monitoring Frequency : Continuous Oxygen Therapy : Room air Height : 182 cm(Converted to: 6 ft 0 inch(es)) HUSEYIN DAILY RN - 07/20/2013 13:19 COMMERCIAL TITLE EXAMINER General Level of Consciousness : Alert Orientation : Oriented x 3 Skin Color : Normal for ethnicity Skin Description : Dry Skin Temperature : Warm Pain Symptoms : No HUSEYIN DAILY RN - 07/20/2013 13:19 COMMERCIAL TITLE EXAMINER FLACC Face FLACC : No particular expression or smile Legs FLACC : Normal position or relaxed Activity FLACC : Lying quietly, normal position, moves easily Cry FLACC : No cry, awake or asleep Consolabillity FLACC : Content, relaxed FLACC Pain Scale Score : 0 HUSEYIN DAILY 07/20/2013 13:19 COMMERCIAL TITLE EXAMINER Cardiovascular Heart Rhythm : Regular Nail Bed Color : [place] HUSEYIN DAILY 07/20/2013 13:19 COMMERCIAL TITLE EXAMINER Respiratory Anesthesia Type : Spinal Respiratory Pattern : Regular Respirations : Unlabored HUSEYIN DAILY 07/20/2013 13:19 COMMERCIAL TITLE EXAMINER Incentive Spirometry Cough and Deep Breathe : Done HUSEYIN DAILY 07/20/2013 13:19 COMMERCIAL TITLE EXAMINER GI/ Nausea Symptoms : No HUSEYIN DAILY 07/20/2013 13:19 COMMERCIAL TITLE EXAMINER Integumentary Mucous Membrane Color : [place] Mucous Membrane Description : Moist Skin Color : Normal for ethnicity Skin Description : Dry Skin Temperature : Warm HUSEYIN DAILY 07/20/2013 13:19 COMMERCIAL TITLE EXAMINER Incision/Wound Incision/Wound Care Grid Activity : Assessed Type : Other: arthroscopy Location : Knee Laterality : Left Description : Dry HUSEYIN DAILY 07/20/2013 13:19 COMMERCIAL TITLE EXAMINER Peripheral IV Peripheral IV Assess/Intervention Grid Peripheral IV #1 IV Activity : Assessment Number of Attempts : 1 Date of Insertion : 07/20/2013 COMMERCIAL TITLE EXAMINER IV Site : Hand Laterality : Left Catheter Size : 20 Catheter Type : Protective Site Condition : No complications Drainage Description : None HUSEYIN DAILY 07/20/2013 13:19 COMMERCIAL TITLE EXAMINER I&O Oral Intake : 60 mL Other Intake : 100 mL (Comment: I.V. fluids [HUSEYIN DAILY 07/20/2013 13:19 COMMERCIAL TITLE EXAMINER] ) HUSEYIN DAILY 07/20/2013 13:19 COMMERCIAL TITLE EXAMINER Neurologic Swallowing Difficulty/Aspiration Risk : None Extremity Movement : Equal Facial Symmetry : Symmetric Characteristics of Speech : Appropriate for age HUSEYIN DAILY 07/20/2013 13:19 COMMERCIAL TITLE EXAMINER Neurological Strengths Grid Left Upper Extremity Right Upper Extremity Left Lower Extremity Right Lower Extremity Sensation : Intact Intact Decreased Decreased HUSEYIN DAILY 07/20/2013 13:19 COMMERCIAL TITLE EXAMINER HUSEYIN DAILY 07/20/2013 13:19 COMMERCIAL TITLE EXAMINER HUSEYIN DAILY 07/20/2013 13:19 COMMERCIAL TITLE EXAMINER HUSEYIN DAILY 07/20/2013 13:19 COMMERCIAL TITLE EXAMINER Lower Extremity Nail Bed Color Feet Grid Left Foot : [place] Right Foot : [place] HUSEYIN DAILY 07/20/2013 13:19 COMMERCIAL TITLE EXAMINER Capillary Refill Feet Grid Left Foot : < 2 seconds Right Foot : < 2 seconds HUSEYIN DAILY 07/20/2013 13:19 COMMERCIAL TITLE EXAMINER NV Lower Extremity Color Grid Left : [place] Right : [place] HUSEYIN DAILY 07/20/2013 13:19 COMMERCIAL TITLE EXAMINER NV Lower Extremity Temperature Grid Left : Warm Right : Warm HUSEYIN DAILY 07/20/2013 13:19 COMMERCIAL TITLE EXAMINER Lower Extremity Peripheral Pulses Grid Dorsalis Pedis Pulse, Left : 2+ Normal HUSEYIN DAILY 07/20/2013 13:19 COMMERCIAL TITLE EXAMINER Lower Extremity Sensation NV Grid Medial/Lateral Surfaces Sole of Left Foot : Decreased Medial/Lateral Surfaces Sole of Right Foot : Decreased Web Space Between Great and Second Toe Left Foot : Decreased Web Space Between Great and Second Toe Right Foot : Decreased HUSEYIN DAILY 07/20/2013 13:19 COMMERCIAL TITLE EXAMINER Activity Patient Position : Elevate head of bed 45 degrees HUSEYIN DAILY 07/20/2013 13:19 COMMERCIAL TITLE EXAMINER Modified Jessica Activity : Moves 4 extremities voluntarily or on command Respiratory : Able to deep breathe and cough freely Circulation : BP +/- 20% of preprocedural level or not unusually high or low Consciousness : Fully awake O2 Saturation : O2 SAT at preprocedural level Jessica l Score : 10 HUSEYIN DAILY 07/20/2013 13:19 COMMERCIAL TITLE EXAMINER PARSAP Dressing : Dry and clean Pain : Pain free Fasting and Feeding : Able to drink fluids Urine Output, PARSAP : Not assessed HUSEYIN DAILY 07/20/2013 13:19 COMMERCIAL TITLE EXAMINER [place] Duck[place] Agitation Sedation Scale (RASS) : Alert and calm RASS Score : 0 HUSEYIN DAILY 07/20/2013 13:19 COMMERCIAL TITLE EXAMINER Carlos Sensory Perception Carlos : No impairment Moisture Carlos : Rarely moist Activity Carlos : Bedfast Mobility Carlos : Very limited Nutrition Carlos : Adequate Friction and Shear Carlos : No apparent problem Carlos Score : 17 HUSEYIN DAILY 07/20/2013 13:19 COMMERCIAL TITLE EXAMINER Hendrich II Fall Risk Confusion/Disorientation Hendrich : No Depression Fall Risk Hendrich : No Altered Elimination Fall Risk Hendrich : No Dizziness/Vertigo Fall Risk Hendrich : No Gender, Male Fall Risk Hendrich : Yes Prescribed Antiepileptics Hendrich : No Prescribed Benzodiazepines Hendrich : Yes Rising From Chair Fall Risk Hendrich : Able to rise in a single movement, no loss of balance with steps Fall Risk Score Isaura II : 2 HUSEYIN DAILY RN - 07/20/2013 13:19 COMMERCIAL TITLE EXAMINER Safe Patient Handling Safe Pt Handling Independent : Yes - No equipment needed Safe Pt Handling Equipment Rec : No Equipment Needed HUSEYIN DAILY RN - 07/20/2013 13:19 COMMERCIAL TITLE EXAMINER Education General Patient Education [employer] Topics : Printed materials Individuals Taught : Patient Barriers to Learning : None evident Teaching Method : Explanation, Printed materials Teaching Evaluation : Verbalizes understanding HUSEYIN DAILY RN - 07/20/2013 13:19 COMMERCIAL TITLE EXAMINER [facility] [employer]CHART Document Id: [id number] COMMERCIAL TITLE EXAMINER!147 ERCIAL TITLE EXAMINER Miscellaneous - Huseyin Daily R.N. - 07/20/2013 12:57 PM CST Adult Postprocedure Assessment Adult Postprocedure Assessment Entered On: 07/20/2013 13:05 COMMERCIAL TITLE EXAMINER Performed On: 07/20/2013 12:57 COMMERCIAL TITLE EXAMINER by HUSEYIN DAILY RN Vital Signs Temperature Core : 36.5 DegC(Converted to: 97.7 DegF) Peripheral Pulse Rate : 60 /min Respiratory Rate : 12 /min (LOW) BP Location : Right upper extremity SpO2 : 94 % Oxygen Saturation Monitoring Frequency : Continuous Oxygen Therapy : Room air Height : 182 cm(Converted to: 6 ft 0 inch(es)) HUSEYIN DAILY RN - 07/20/2013 12:57 COMMERCIAL TITLE EXAMINER General Level of Consciousness : Drowsy Orientation : Oriented x 3 Skin Color : Normal for ethnicity Skin Description : Dry Skin Temperature : Warm Pain Symptoms : No HUSEYIN DAILY RN - 07/20/2013 12:57 COMMERCIAL TITLE EXAMINER FLACC Face FLACC : No particular expression or smile Legs FLACC : Normal position or relaxed Activity FLACC : Lying quietly, normal position, moves easily Cry FLACC : No cry, awake or asleep Consolabillity FLACC : Content, relaxed FLACC Pain Scale Score : 0 HUSEYIN DAILY RN - 07/20/2013 12:57 COMMERCIAL TITLE EXAMINER Cardiovascular Heart Rhythm : Regular Nail Bed Color : [place] Capillary Refill : Less than 2 seconds HUSEYIN DAILY 07/20/2013 12:57 COMMERCIAL TITLE EXAMINER Pulses Grid Dorsalis Pedis Pulse, Left : 2+ Normal HUSEYIN DAILY 07/20/2013 12:57 COMMERCIAL TITLE EXAMINER Antiembolism Device : Sequential Compression Device Antiembolism Device Laterality : Right HUSEYIN DAILY 07/20/2013 12:57 COMMERCIAL TITLE EXAMINER Respiratory Anesthesia Type : Spinal Respiratory Pattern : Regular Respirations : Unlabored All Lobes Breath Sounds : Clear HUSEYIN DAILY 07/20/2013 12:57 COMMERCIAL TITLE EXAMINER Incentive Spirometry Cough and Deep Breathe : Done HUSEYIN DAILY 07/20/2013 12:57 COMMERCIAL TITLE EXAMINER GI/ Nausea Symptoms : No HUSEYIN DAILY 07/20/2013 12:57 COMMERCIAL TITLE EXAMINER Integumentary Skin Color : Normal for ethnicity Skin Description : Dry Skin Temperature : Warm HUSEYIN DAILY 07/20/2013 12:57 COMMERCIAL TITLE EXAMINER Incision/Wound Incision/Wound Care Grid Activity : Assessed Type : Other: arthroscopy Location : Knee Laterality : Left Description : Dry HUSEYIN DAILY 07/20/2013 12:57 COMMERCIAL TITLE EXAMINER Peripheral IV Peripheral IV Assess/Intervention Grid Peripheral IV #1 IV Activity : Assessment Number of Attempts : 1 Date of Insertion : 07/20/2013 COMMERCIAL TITLE EXAMINER IV Site : Hand Laterality : Left Catheter Size : 20 Catheter Type : Protective Site Condition : No complications Drainage Description : None HUSEYIN DAILY 07/20/2013 12:57 COMMERCIAL TITLE EXAMINER I&O Other Intake : 200 mL (Comment: I.V. fluids [HUSEYIN DAILY 07/20/2013 12:57 COMMERCIAL TITLE EXAMINER] ) HUSEYIN DAILY 07/20/2013 12:57 COMMERCIAL TITLE EXAMINER Neurologic Swallowing Difficulty/Aspiration Risk : None Extremity Movement : Equal Facial Symmetry : Symmetric Characteristics of Speech : Appropriate for age HUSEYIN DAILY 07/20/2013 12:57 COMMERCIAL TITLE EXAMINER Neurological Strengths Grid Left Upper Extremity Right Upper Extremity Sensation : Intact Intact HUSEYIN DAILY 07/20/2013 12:57 COMMERCIAL TITLE EXAMINER HUSEYIN DAILY 07/20/2013 12:57 COMMERCIAL TITLE EXAMINER Lower Extremity Nail Bed Color Feet Grid Left Foot : [place] Right Foot : [place] HUSEYIN DAILY 07/20/2013 12:57 COMMERCIAL TITLE EXAMINER Capillary Refill Feet Grid Left Foot : < 2 seconds Right Foot : < 2 seconds HUSEYIN DAILY 07/20/2013 12:57 COMMERCIAL TITLE EXAMINER NV Lower Extremity Color Grid Left : [place] Right : [place] HUSEYIN DAILY RN 07/20/2013 12:57 COMMERCIAL TITLE EXAMINER NV Lower Extremity Temperature Grid Left : Warm Right : Warm HUSEYIN DAILY RN 07/20/2013 12:57 COMMERCIAL TITLE EXAMINER Lower Extremity Sensation NV Grid Medial/Lateral Surfaces Sole of Left Foot : Absent Medial/Lateral Surfaces Sole of Right Foot : Absent Web Space Between Great and Second Toe Left Foot : Absent Web Space Between Great and Second Toe Right Foot : Absent HUSEYIN DAILY RN 07/20/2013 12:57 COMMERCIAL TITLE EXAMINER Activity Patient Position : Elevate head of bed 30 degrees HUSEYIN DAILY 07/20/2013 12:57 COMMERCIAL TITLE EXAMINER Modified Jessica Activity : Moves 4 extremities voluntarily or on command Respiratory : Able to deep breathe and cough freely Circulation : BP +/- 20% of preprocedural level or not unusually high or low Consciousness : Arouses on calling O2 Saturation : O2 SAT at preprocedural level Jessica l Score : 9 HUSEYIN DAILY 07/20/2013 12:57 COMMERCIAL TITLE EXAMINER PARSAP Dressing : Dry and clean Pain : Pain free Fasting and Feeding : Able to drink fluids Urine Output, PARSAP : Not assessed HUSEYIN DAILY 07/20/2013 12:57 COMMERCIAL TITLE EXAMINER Duckworth Duckworth Agitation Sedation Scale (RASS) : Drowsy RASS Score : -1 HUSEYIN DAILY 07/20/2013 12:57 COMMERCIAL TITLE EXAMINER Carlos Sensory Perception Carlos : Very limited Moisture Carlos : Rarely moist Activity Carlos : Bedfast Mobility Carlos : Completely limited Nutrition Carlos : Adequate Friction and Shear Carlos : No apparent problem Carlos Score : 14 HUSEYIN DAILY 07/20/2013 12:57 COMMERCIAL TITLE EXAMINER Hendrich II Fall Risk Confusion/Disorientation Hendrich : No Depression Fall Risk Hendrich : No Altered Elimination Fall Risk Hendrich : No Dizziness/Vertigo Fall Risk Hendrich : No Gender, Male Fall Risk Hendrich : Yes Prescribed Antiepileptics Hendrich : No Prescribed Benzodiazepines Hendrich : Yes Rising From Chair Fall Risk Hendrich : Able to rise in a single movement, no loss of balance with steps Fall Risk Score Hendrich II : 2 HUSEYIN DAILY 07/20/2013 12:57 COMMERCIAL TITLE EXAMINER Safe Patient Handling Safe Pt Handling Independent : Yes - No equipment needed Safe Pt Handling Equipment Rec : No Equipment Needed HUSEYIN DAILY RN - 07/20/2013 12:57 COMMERCIAL TITLE EXAMINER Source: [facility] POWERCHART Document Id: [id number] COMMERCIAL TITLE EXAMINER!133 ERCIAL TITLE EXAMINER Miscellaneous - Huseyin Daily R.N. - 07/20/2013 12:35 PM CST Adult Postprocedure Assessment Adult Postprocedure Assessment Entered On: 07/20/2013 12:56 COMMERCIAL TITLE EXAMINER Performed On: 07/20/2013 12:35 COMMERCIAL TITLE EXAMINER by HUSEYIN DAILY RN Vital Signs Temperature Core : 36.7 DegC(Converted to: 98.1 DegF) Peripheral Pulse Rate : 64 /min Respiratory Rate : 22 /min (HI) Systolic Blood Pressure : 109 mmHg Diastolic Blood Pressure : 69 mmHg NIBP Mean : 82 mmHg BP Location : Right upper extremity SpO2 : 98 % Oxygen Saturation Monitoring Frequency : Continuous Oxygen Flow Rate : 2.0 L/min Oxygen Therapy : Nasal Cannula Height : 182 cm(Converted to: 6 ft 0 inch(es)) HUSEYIN DAILY RN - 07/20/2013 12:30 COMMERCIAL TITLE EXAMINER General Level of Consciousness : Drowsy Orientation : Oriented x 3 Skin Color : Normal for ethnicity Skin Description : Dry Skin Temperature : Warm Pain Symptoms : No HUSEYIN DAILY RN - 07/20/2013 12:30 COMMERCIAL TITLE EXAMINER FLACC Face FLACC : No particular expression or smile Legs FLACC : Normal position or relaxed Activity FLACC : Lying quietly, normal position, moves easily Cry FLACC : No cry, awake or asleep Consolabillity FLACC : Content, relaxed FLACC Pain Scale Score : 0 HUSEYIN DAILY RN - 07/20/2013 12:30 COMMERCIAL TITLE EXAMINER Cardiovascular Heart Rhythm : Regular Nail Bed Color : [place] Capillary Refill : Less than 2 seconds Antiembolism Device : Sequential Compression Device Antiembolism Device Laterality : Left HUSEYIN DAILY RN - 07/20/2013 12:30 COMMERCIAL TITLE EXAMINER Respiratory Anesthesia Type : Spinal Respiratory Pattern : Regular Respirations : Unlabored All Lobes Breath Sounds : Clear Oxygen Discontinuation : 07/20/2013 12:44 COMMERCIAL TITLE EXAMINER HUSEYIN DAILY RN - 07/20/2013 12:30 COMMERCIAL TITLE EXAMINER Incentive Spirometry Cough and Deep Breathe : Done HUSEYIN DAILY RN - 07/20/2013 12:30 COMMERCIAL TITLE EXAMINER GI/ Nausea Symptoms : No HUSEYIN DAILY 07/20/2013 12:30 COMMERCIAL TITLE EXAMINER Integumentary Skin Color : Normal for ethnicity Skin Description : Dry Skin Temperature : Warm HUSEYIN DAILY 07/20/2013 12:30 COMMERCIAL TITLE EXAMINER Incision/Wound Incision/Wound Care Grid Activity : Assessed Type : Other: arthroscopy Location : Knee Laterality : Left Description : Dry HUSEYIN DAILY 07/20/2013 12:30 COMMERCIAL TITLE EXAMINER Peripheral IV Peripheral IV Assess/Intervention Grid Peripheral IV #1 IV Activity : Assessment Number of Attempts : 1 Date of Insertion : 07/20/2013 COMMERCIAL TITLE EXAMINER IV Site : Hand Laterality : Left Catheter Size : 20 Catheter Type : Protective Site Condition : No complications Drainage Description : None HUSEYIN DAILY 07/20/2013 12:30 COMMERCIAL TITLE EXAMINER I&O Other Intake : 1,600 mL (Comment: I.V. fluids given during surgery and recorded on paper copy [HUSEYIN DAILY 07/20/2013 12:30 COMMERCIAL TITLE EXAMINER] ) HUSEYIN DAILY 07/20/2013 12:30 COMMERCIAL TITLE EXAMINER Neurologic Swallowing Difficulty/Aspiration Risk : None Extremity Movement : Equal HUSEYIN DAILY 07/20/2013 12:30 COMMERCIAL TITLE EXAMINER Pupil, Left Pupil, Right Description : Regular Regular HUSEYIN DAILY 07/20/2013 12:30 COMMERCIAL TITLE EXAMINER HUSEYIN DAILY 07/20/2013 12:30 COMMERCIAL TITLE EXAMINER Facial Symmetry : Symmetric Characteristics of Speech : Appropriate for age HUSEYIN DAILY 07/20/2013 12:30 COMMERCIAL TITLE EXAMINER Lower Extremity Nail Bed Color Feet Grid Left Foot : [place] Right Foot : [place] HUSEYIN ADILY 07/20/2013 12:30 COMMERCIAL TITLE EXAMINER Capillary Refill Feet Grid Left Foot : < 2 seconds Right Foot : < 2 seconds HUSEYIN DAILY 07/20/2013 12:30 COMMERCIAL TITLE EXAMINER NV Lower Extremity Color Grid Left : [place] Right : [place] HUSEIYN DAILY 07/20/2013 12:30 COMMERCIAL TITLE EXAMINER NV Lower Extremity Temperature Grid Left : Warm Right : Warm HUSEYIN DAILY 07/20/2013 12:30 COMMERCIAL TITLE EXAMINER Lower Extremity Sensation NV Grid Medial/Lateral Surfaces Sole of Left Foot : Absent Medial/Lateral Surfaces Sole of Right Foot : Absent Web Space Between Great and Second Toe Left Foot : Absent Web Space Between Great and Second Toe Right Foot : Absent HUSEYIN DAILY RN - 07/20/2013 12:30 COMMERCIAL TITLE EXAMINER Activity Patient Position : Head of bed flat HUSEYIN DAILY RN - 07/20/2013 12:30 COMMERCIAL TITLE EXAMINER Modified Jessica Activity : Moves 2 extremities voluntarily or on command Respiratory : Able to deep breathe and cough freely Circulation : BP +/- 20% of preprocedural level or not unusually high or low Consciousness : Arouses on calling O2 Saturation : Needs oxygen to maintain > 92% Jessica l Score : 7 HUSEYIN DAILY RN - 07/20/2013 12:30 COMMERCIAL TITLE EXAMINER [place] Duck[place] Agitation Sedation Scale (RASS) : Drowsy RASS Score : -1 HUSEYIN DAILY RN - 07/20/2013 12:30 COMMERCIAL TITLE EXAMINER Carlos Sensory Perception Carlos : Very limited Moisture Carlos : Rarely moist Activity Carlos : Bedfast Mobility Carlos : Completely limited Nutrition Carlos : Adequate Friction and Shear Carlos : No apparent problem Carlos Score : 14 HUSEYIN DAILY RN - 07/20/2013 12:30 COMMERCIAL TITLE EXAMINER Hendrich II Fall Risk Confusion/Disorientation Hendrich : No Depression Fall Risk Hendrich : No Altered Elimination Fall Risk Hendrich : No Dizziness/Vertigo Fall Risk Hendrich : No Gender, Male Fall Risk Hendrich : Yes Prescribed Antiepileptics Hendrich : No Prescribed Benzodiazepines Hendrich : Yes Rising From Chair Fall Risk Hendrich : Able to rise in a single movement, no loss of balance with steps Fall Risk Score Hendrich II : 2 HUSEYIN DAILY RN - 07/20/2013 12:30 COMMERCIAL TITLE EXAMINER Safe Patient Handling Safe Pt Handling Independent : Yes - No equipment needed Safe Pt Handling Equipment Rec : No Equipment Needed HUSEYIN DAILY RN - 07/20/2013 12:30 COMMERCIAL TITLE EXAMINER Education General Patient Education Powergrid Topics : Activity limitations/expectations, Diagnostic results, Discharge instructions/Medication list, Importance of follow-up visits, Physical limitations, Plan of care, Postoperative instructions, Printed materials, Safety, fall, Turn/Cough/Deep breathing, Use of pain scale(s), When to call health care provider Individuals Taught : Patient Barriers to Learning : None evident Teaching Method : Explanation, Printed materials Teaching Evaluation : Verbalizes understanding HUSEYIN DAILY RN - 07/20/2013 12:30 COMMERCIAL TITLE EXAMINER Source: [facility] POWERCHART Document Id: [id number] COMMERCIAL TITLE EXAMINER!139 ERCIAL TITLE EXAMINER Miscellaneous - Tanvi Britton APRN, CRNA - 07/15/2013 7:30 AM CST General Message From: TANVI BRITTON RN PRODUCT/DEVICE TECHNOLOGIST To: HARVINDER STUBBS III, MD; Cc: LILIANA TORRES RN; Sent: 07/15/2013 07:30:53 COMMERCIAL TITLE EXAMINER Subject: General Message Hi Dr. Stubbs, We have Hsusein scheduled for his knee scope on Friday, 07/20. You did his H&P on 07/07. Could youdictate his note BEBETO so I have it to review? Tanvi Powell Source: [facility] POWERCHART Document Id: [id number] documented in this encounter Plan of Treatment Upcoming Encounters Date Type Specialty Care Team Description 01/24/2022 Diagnostic Otorhinolaryngology Lara Snell Au.D. [address], [place] [phone] 01/29/2022 Office Visit Orthopedic Surgery Laurie Dumont APRN , C.N.P., D.N.P. [address] [place], [place] [phone] (Wo rk) documented as of this encounter Visit Diagnoses Not on filedocumented in this encounter
--- OUTSIDE RECORDS SUMMARY | 2022-01-23 19:39 | XMS_ITS | Encounter Summary ---
:1960 Author Organization [facility] Address [address] [place] [address] Care Team Providers Name Role Phone Unavailable Primary Care Provider Unavailable Encounter Details Date Type Department Care Team Description 01/05/2015 Hospital Encounter HX [facility] Soren Shea , ANA, C.N.P. [address] [place], [place] [address] (Wo rk) Social History Tobacco Use Types [...] you attend sabianist or Patient refused 2021 shinto services? 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 0 01/1804/13/2021 documented as of this encounter Plan of Treatment Upcoming Encounters Date Type Specialty Care Team Description 01/24/2022 Diagnostic Otorhinolaryngology Lara Snell Au.D. [address] [place], [place] [phone] 01/29/2022 Office Visit Orthopedic Surgery Laurie Dumont APRN , C.N.P., D.N.P. [address], [place] [phone] (Wo rk) documented as of this encounter Visit Diagnoses Not on filedocumented in this encounter
--- OUTSIDE RECORDS SUMMARY | 2022-01-23 19:39 | XMS_ITS | Encounter Summary ---
:1960 Author Organization [facility] Address [address] [place] [address] Care Team Providers Name Role Phone Unavailable Primary Care Provider Unavailable Encounter Details Date Type Department Care Team Description 08/10/2013 Hospital Encounter HX NO MAPPING Matt Tong, [...] you attend restorationist or Patient refused 2021 jewish services? 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 0 01/1804/13/2021 documented as of this encounter Consult Notes Matt Tong - 08/10/2013 3:27 PM CDT [id number] Mr. Hernandez is a pleasant 52-year-old gentleman who is here today for a followup after undergoing a left knee arthroscopy and partial medial meniscectomy. At this point in time, patient is doing fairly well. PHYSICAL EXAMINATION Incisions are healing well with no evidence of infection. IMPRESSION/REPORT/PLAN Mr. Hernandez is a pleasant 52-year-old gentleman status post knee arthroscopy. Photos and notes from the procedure were discussed with the patient and I believe he was understanding what was performed including the severe degenerative changes found during the case and the implications of these findings.If he has any questions or concerns, he is encouraged to call. Otherwise, he will focus on activity modification, isometric quadriceps strengthening activities, and consider glucosamine chondroitin sulfate supplementation, as well as other oral analgesics, and he will see us back in about 1 month's time to ensure that things are going well, and we may consider hyaluronic acid injection therapy at some point in time if he does not improve as we would like him to with more conservative measures. Matt Tong P.A.-C./ryan Electronically Signed By: MATT TONG PA-C On: 08/23/2013 09:29 AM Source: [facility] Document Id: [id number] documented in this encounter Miscellaneous Notes Miscellaneous - Matt Tong - 08/10/2013 3:55 PM CDT Ambulatory Patient Summary [facility] [id number] [facility] [place], [place] [phone] Visit Information Name: HUSSEIN HERNANDEZ [facility] Number: [id number] Current Date: 08/10/2013 15:55:20 Physicians Attending Provider: MATT TONG PA-C Primary [...] tablet) 1 Tablet(s), Oral, once a day HYDROcodone-acetaminophen (Chandler 5 mg-325 mg oral tablet) 2 Tablet(s), Oral, every 6 hours as neededfor Pain No more than 4,000mg acetaminophen/24hrs omeprazole (omeprazole 40 mg oral delayed release capsule) 1 cap, Oral, once a day Take on empty stomach, then eat 45 minutes later Needs office visit for further refills Stop Taking the Following Medications: Medication list as of 08-10-13 15:55 Attention: If you have any medications at [...] Upcoming Appointments Date Time Location Reason Provider 09/18/2013 12:00 PSYCHIATRIC Family Med Rash on face Jamarcus Gordillo MD Attention: Contact your local Clinic if further appointment detail needed. Your Goals/Additional instructions: Source: [facility] POWERCHART Document Id: [id number] Natali - Matt Tong - 08/10/2013 3:55 PM CDT Ambulatory Discharge Medication List [address] [place], [place] [phone] Visit Information Name: HUSSEIN HERNANDEZ [facility] Number: [id number] Visit Date: 08/10/2013 15:55:19 Attending Provider: MATT TONG PA-C Primary Care Provider: HARVINDER STUART III, MD MARY HUSSEIN ELIU has been given the following list [...] tablet) 1 Tablet(s), Oral, once a day HYDROcodone-acetaminophen (Chandler 5 mg-325 mg oral tablet) 2 Tablet(s), Oral, every 6 hours as neededfor Pain No more than 4,000mg acetaminophen/24hrs omeprazole (omeprazole 40 mg oral delayed release capsule) 1 cap, Oral, once a day Take on empty stomach, then eat 45 minutes later Needs office visit for further refills Stop Taking the Following Medications: Medication list as of 08-10-13 15:55 Attention: If you have any medications at home that are not on this list, DO NOT take them until youcontact your provider for clarification. Give a copy of your medication list to your primary care provider. Update your medication list any time medications or doses are changed and carry your medication list at all times in case of emergency. Additional Information: Source: [facility] POWERCHART Document Id: [id number] Natali - Roma Lindo R.N. - 08/10/2013 3:33 PM CDT Adult Hostage Negotiator Intake/History Adult Hostage Negotiator Intake/History Entered On: 08/10/2013 15:36 CDT Performed On: 08/10/2013 15:33 CDT by ROMA LINDO property claims adjuster Chief Complaint : Here for follow up after left knee arthroscopy Temperature Core : 36.8 DegC(Converted to: 98.2 DegF) Peripheral Pulse Rate : 77 /min Respiratory Rate : 18 /min Systolic Blood Pressure : 130 mmHg Diastolic Blood Pressure : 78 mmHg NIBP Mean : 95 mmHg SpO2 : 95 % Oxygen Therapy : Room air ROMA LINDO RN - 08/10/2013 15:33 CDT General Info Information Given By : Patient Preferred Communication Mode : Verbal Languages : Faroese ROMA LINDO RN - 08/10/2013 15:33 CDT Subjective Pain Symptoms : No ROMA LINDO RN - 08/10/2013 15:33 CDT Dependent Habits Tobacco Use/Currently Using : No Tobacco Use/Last 12 months : No Exposure to Tobacco Smoke : Care provider denies smoking in home Smoking Status : Former smoker ROMA LINDO RN - 08/10/2013 15:33 CDT Tobacco Use Grid Type : Cigarettes Last Use : 1996 ROMA LINDO RN - 08/10/2013 15:33 CDT Caffeine Use Grid Caffeine Use : None ROMA LINDO RN - 08/10/2013 15:33 CDT Recreational Drug Use Grid Drug Use : None ROMA LINDO RN - 08/10/2013 15:33 CDT Source: [employer] Document Id: [id number] CDT!32 documented in this encounter Plan of Treatment Upcoming Encounters Date Type Specialty Care Team Description 01/24/2022 Diagnostic Otorhinolaryngology Lara Snell Au.D. [address] [place] [phone] 01/29/2022 Office Visit Orthopedic Surgery Laurie Dumont, ANA , C.N.P., D.N.P. [address] [place], [place] [phone] (Wo rk) documented as of this encounter Visit Diagnoses Not on filedocumented in this encounter
--- OUTSIDE RECORDS SUMMARY | 2022-01-23 19:39 | XMS_ITS | Encounter Summary ---
:1960 Author Organization [facility] Address [address] [place] [address] Care Team Providers Name Role Phone Unavailable Primary Care Provider Unavailable Encounter Details Date Type Department Care Team Description 06/01/2013 Hospital Encounter HX NO MAPPING Noe Mijares M.D. [address] [place], [place] [phone] (Wo rk) Social History [...] you attend yazidi or Patient refused 2021 congregational services? 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 0 01/1804/13/2021 documented as of this encounter Consult Notes Dk Mijares M.D. - 06/01/2013 2:08 PM CST [id number] HISTORY Hussein is a 52-year-old man who is in regards to his left knee. He had the onset of significant left knee pain after he was trying to pull on a deer and pull it out of the tubbs and subsequently the knee remained quite painful to the medial side. He is status post previous arthroscopy many years ago and did well after this. He had no significant pain in his knee until this twisting that he did. We had tried a Cortisone injection at his last clinic visit and it did seem to help out with the symptomsbut was only very temporary. PHYSICAL EXAMINATION Examination of his knee, he does have a trace effusion noted today. His knee range of motion is from0 120 degrees. He is stable to varus and valgus stress. Jerrod's negative. Anterior and posterior drawer is negative. He has significant tenderness along the medial joint line. IMPRESSION/REPORT/PLAN Hussein is a 52-year-old man who has persistent left knee pain primarily to the medial aspect of hisknee. This could be due to aggravated arthritic changes versus meniscal tearing. It has not improvedwith our injection treatment and therefore before considering the possibility of Synvisc injections versus arthroscopy, my suggestion would be to obtain an MRI. We will see him back after the MRI of his knee is obtained, discuss results with him and continuing care. TIME Patient visit today was greater than 15 minutes long with more than 50% of it in counseling in regard to treatment options for his left knee pain. Dk Mijares M.D./vikki Electronically Signed By: DK MIJARES MD On: 06/29/2013 01:51 PM Source: [facility] MHSDOLBEYNONRADSYS Document Id: [id number] ER OPERATOR documented in this encounter Miscellaneous Notes Miscellaneous - Dk Mijares M.D. - 06/01/2013 4:06 PM CST Ambulatory Patient Summary [address] [address] Visit Information Name: HUSSEIN HERNANDEZ [facility] Number: [id number] Current Date: 06/01/2013 16:06:53 Physicians Attending Provider: DK MIJARES MD Primary [...] the Following Medications: Medication list as of 06-01-13 16:06 Attention: If you have any medications at [...] Upcoming Appointments Date Time Location Reason Provider 06/18/2013 09:00 [facility] Follow up MRI knee Dk Mijares MD Attention: Contact your local Clinic if further appointment detail needed. Your Goals/Additional instructions: Source: [facility] POWERCHART Document Id: [id number] ALUISA Hurst - Dk Mijares M.D. - 06/01/2013 4:06 PM CST Ambulatory Depart Summary [facility] [address] [address] Visit Information Name: MARYHUSSEIN [facility] Number: [id number] Visit Date: 06/01/2013 16:06:52 Attending Provider: DK MIJARES MD Primary Care [...] the Following Medications: Medication list as of 06-01-13 16:06 Attention: If you have any medications at home that are not on this list, DO NOT take them until youcontact your provider for clarification. Give a copy of your medication list to your primary care provider. Update your medication list any time medications or doses are changed and carry your medication list at all times in case of emergency. Additional Information: Source: [facility] [employer]ART Document Id: [id number] ER OPERATOR Miscellaneous - Roxy Shea R.N. - 06/01/2013 2:13 PM CST Adult Building Appraiser Intake/History Adult Building Appraiser Intake/History Entered On: 06/01/2013 14:15 BLOWER OPERATOR Performed On: 06/01/2013 14:13 BLOWER OPERATOR by ROXY SHEA web knitter Chief Complaint : f/u left knee pain, had injection 04/27 which helped for about 3 weeks Temperature Core : 37.0 DegC(Converted to: 98.6 DegF) Peripheral Pulse Rate : 94 /min Respiratory Rate : 16 /min Heart Rhythm : Regular Systolic Blood Pressure : 120 mmHg Diastolic Blood Pressure : 80 mmHg NIBP Mean : 93 mmHg BP Location : Left upper extremity Blood Pressure Cuff Size : Regular SpO2 : 97 % ROXY SHEA RN - 06/01/2013 14:13 BLOWER OPERATOR General Info Information Given By : Patient Preferred Communication Mode : Verbal Languages : Bengali ROXY SHEA RN - 06/01/2013 14:13 BLOWER OPERATOR Subjective Pain Symptoms : Yes ROXY SHEA RN - 06/01/2013 14:13 BLOWER OPERATOR Pain Pain Assessment Grid Pain 1 Location : Knee Laterality : Left ROXY SHEA RN - 06/01/2013 14:13 BLOWER OPERATOR Dependent Habits Tobacco Use/Currently Using : No Exposure to Tobacco Smoke : Care provider denies smoking in home Smoking Status : Former smoker ROXY SHEA RN - 06/01/2013 14:13 BLOWER OPERATOR Tobacco Use Grid Type : Cigarettes Last Use : 1996 ROXY SHEA RN - 06/01/2013 14:13 BLOWER OPERATOR Caffeine Use Grid Caffeine Use : None ROXY SHEA RN - 06/01/2013 14:13 BLOWER OPERATOR Recreational Drug Use Grid Drug Use : None ROXY SHEA RN - 06/01/2013 14:13 BLOWER OPERATOR Source: [facility] POWERCHART Document Id: [id number] BLOWER OPERATOR!38 ER OPERATOR documented in this encounter Plan of Treatment Upcoming Encounters Date Type Specialty Care Team Description 01/24/2022 Diagnostic Otorhinolaryngology Lara Snell Au.D. [address] [place] [phone] 01/29/2022 Office Visit Orthopedic Surgery Laurie Dumont, ANA , C.N.P., D.N.P. [address] [place], [place] [phone] (Wo rk) documented as of this encounter Visit Diagnoses Not on filedocumented in this encounter
--- OUTSIDE RECORDS SUMMARY | 2022-01-23 19:39 | XMS_ITS | Encounter Summary ---
:1960 Author Organization [facility] Address [address] [place] [address] Care Team Providers Name Role Phone Unavailable Primary Care Provider Unavailable Encounter Details Date Type Department Care Team Description 09/07/2013 Hospital Encounter HX NO MAPPING Matt Tong, [...] or relatives? How often do you attend nondenominational or Patient refused 2021 yarsanism services? Do you belong to any clubs or No 12/20/2021 organizations such as nondenominational groups, unions, fraternal or athletic groups, or [...] or slept in a fci (including now)? 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 0 01/1804/13/2021 documented as of this encounter Consult Notes Matt Tong - 09/07/2013 3:26 PM CDT [id number] Mr. Hernandez is a pleasant 52-year-old gentleman who is status post a left knee arthroscopy. He is about 6 weeks out from the procedure. He was found to have significant degenerative joint disease in theform of grade 4 change in the medial compartment of the knee. He has tried strengthening activities as well as icing and oral analgesics. We talked about glucosamine and chondroitin sulfate supplementation, and he is here today to consider hyaluronic acid injection therapy. I think it sounds as if though he has tried and failed pharmacological and nonpharmacological methods of dealing with the pain secondary to significant osteoarthritis, and his knee arthroscopy confirmed severe degenerative joint d isease. After discussion my suggestion was to start a series of Synvisc injections. After obtaining informed consent and talking about all potential risks, he was in favor of going ahead with this as well so his left knee was prepared in a sterile fashion. A small amount of 1% lidocaine along with 16 mg of Synvisc was injected into the knee without complication. The procedure was tolerated well. If he has any questions, he was encouraged to call. Otherwise, he will followup in the weeks to come for the remainder of his injections. Matt Tong P.A.-C./ryan Electronically Signed By: MATT TONG PA-C On: 09/16/2013 03:34 PM Source: [facility] MHSDOLBEYNONRADSYS Document Id: [id number] documented in this encounter Miscellaneous Notes Miscellaneous - Matt Tong - 09/07/2013 3:56 PM CDT Ambulatory Patient Summary [facility] [address] [facility] [place] [id number] Visit Information Name: HUSSEIN HERNANDEZ [facility] Number: [id number] Current Date: 09/07/2013 15:56:22 Physicians Attending Provider: MATT TONG PA-C Primary [...] the Following Medications: Medication list as of 09-07-13 15:56 Attention: If you have any medications at [...] Electronically Signed By: MATT TONG PA-C Signed On:07-SEP-2013 15:56:20 Your Allergies & Intolerances Substance Reaction Symptoms Category Comments Nyquil Cold Medicine Drug Your Problem List Problem Status Onset Comments Hematuria, microscopic Active 02/23/2007 GERD [Gastroesophageal reflux disease] Active 2008 Personal History of Tobacco Use Active 07/04/11 quit in 1996 Your Upcoming Appointments Date Time Location Reason Provider 09/14/2013 15:15 [facility] Synvisc 2 Matt Tong PA-C 09/18/2013 12:00 [facility] Family Med Rash on face Jamarcus Gordillo MD 09/21/2013 15:15 [facility] Synvisc 3 Matt Tong PA-C Attention: Contact your local Clinic if further appointment detail needed. Your Goals/Additional instructions: Source: [facility] POWERCHART Document Id: [id number] Miscellaneous - Matt Tong - 09/07/2013 3:56 PM CDT Ambulatory Discharge Medication List [address] [place], [place] [phone] Visit Information Name: MARY HUSSEIN NOWAK [facility] Number: [id number] Visit Date: 09/07/2013 15:56:21 Attending Provider: MATT TONG PA-C Primary Care [...] the Following Medications: Medication list as of 09-07-13 15:56 Attention: If you have any medications at [...] Electronically Signed By: MATT TONG PA-C Signed On:07-SEP-2013 15:56:20 Additional Information: Source: [facility] POWERCHART Document Id: [id number] Miscellaneous - Roxy Olguin R.N. - 09/07/2013 3:34 PM CDT Adult Office Workforce Planner Intake/History Adult Office Workforce Planner Intake/History Entered On: 09/07/2013 15:37 CDT Performed On: 09/07/2013 15:34 CDT by ROXY OLGUIN shoe salesman Chief Complaint : f/u left knee pain, continues to have medial side pain Temperature Core : 37.6 DegC(Converted to: 99.7 DegF) Peripheral Pulse Rate : 79 /min Respiratory Rate : 16 /min Systolic Blood Pressure : 118 mmHg Diastolic Blood Pressure : 76 mmHg NIBP Mean : 90 mmHg SpO2 : 96 % ROXY OLGUIN RN - 09/07/2013 15:34 CDT General Info Information Given By : Patient Preferred Communication Mode : Verbal Languages : Congolese ROXY OLGUIN RN - 09/07/2013 15:34 CDT Subjective Pain Symptoms : Yes ROXY OLGUIN RN - 09/07/2013 15:34 CDT Pain Pain Assessment Grid Pain 1 Location : Knee Laterality : Left ROXY OLGUIN RN - 09/07/2013 15:34 CDT Dependent Habits Tobacco Use/Currently Using : No Exposure to Tobacco Smoke : Care provider denies smoking in home Smoking Status : Former smoker ROXY OLGUIN RN - 09/07/2013 15:34 CDT Tobacco Use Grid Type : Cigarettes Last Use : 1996 ROXY OLGUIN RN - 09/07/2013 15:34 CDT Caffeine Use Grid Caffeine Use : None ROXY OLGUIN RN - 09/07/2013 15:34 CDT Recreational Drug Use Grid Drug Use : None ROXY OLGUIN RN - 09/07/2013 15:34 CDT Source: [employer] Document Id: [id number] CDT!35 documented in this encounter Plan of Treatment Upcoming Encounters Date Type Specialty Care Team Description 01/24/2022 Diagnostic Otorhinolaryngology Lara Snell Au.D. [address] [place], [place] [phone] 01/29/2022 Office Visit Orthopedic Surgery Laurie Dumont APRN , C.N.P., D.N.P. [address] [facility] JULIAN Lassiter [phone] (Wo rk) documented as of this encounter Visit Diagnoses Not on filedocumented in this encounter
--- OUTSIDE RECORDS SUMMARY | 2022-01-23 19:39 | XMS_ITS | Encounter Summary ---
:1960 Author Organization [facility] Address [address] [place] [address] Care Team Providers Name Role Phone Unavailable Primary Care Provider Unavailable Encounter Details Date Type Department Care Team Description 09/14/2013 Hospital Encounter HX NO MAPPING Matt Tong, [...] or relatives? How often do you attend anabaptism or Patient refused 2021 caodaism services? 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 0 01/1804/13/2021 documented as of this encounter Consult Notes Matt Tong - 09/14/2013 3:17 PM CDT [id number] Mr. hernandez is a pleasant 52-year-old gentleman who is here today for his 2nd in a series of Synvisc injections into his left knee for his pain secondary to degenerative joint disease. PROCEDURE After brief discussion, the left knee is prepared in a sterile fashion. A small amount of 1% lidocaine along with 16 mg of Synvisc was injected in the knee without complication. The procedure was tolerated well. IMPRESSION/REPORT/PLAN If he has any questions, he is encouraged to call. Otherwise, he will follow up next week for his 3rd injection. Matt Tong P.A.-C./ryan Electronically Signed By: MATT TONG PA-C On: 09/23/2013 09:31 AM Source: [facility] MHSDOLBEYNONRADSYS Document Id: [id number] documented in this encounter Miscellaneous Notes Miscellaneous - Matt Tong - 09/14/2013 4:11 PM CDT Ambulatory Patient Summary [id number] [place], [place] [phone] Visit Information Name: HUSSEIN HERNANDEZ [facility] Number: [id number] Current Date: 09/14/2013 16:11:05 Physicians Attending Provider: MATT TONG PA-C Primary [...] the Following Medications: Medication list as of 09-14-13 16:11 Attention: If you have any medications at [...] Electronically Signed By: MATT TONG PA-C Signed On:14-SEP-2013 16:11:01 Your Allergies & Intolerances Substance Reaction Symptoms Category Comments Nyquil Cold Medicine Drug Your Problem List Problem Status Onset Comments Hematuria, microscopic Active 02/23/2007 GERD [Gastroesophageal reflux disease] Active 2008 Personal History of Tobacco Use Active 07/04/11 quit in 1996 Your Upcoming Appointments Date Time Location Reason Provider 09/18/2013 12:00 [facility] Family Med Rash on face Jamarcus Gordillo MD 09/21/2013 15:15 [facility] Synvisc 3 Matt Tong PA-C Attention: Contact your local Clinic if further appointment detail needed. Your Goals/Additional instructions: Source: [facility] POWERCHART Document Id: [id number] Miscellaneous - Matt Tong - 09/14/2013 4:11 PM CDT Ambulatory Discharge Medication List [facility] [address] [place], [place] [phone] Visit Information Name: HUSSEIN HERNANDEZ [facility] Number: [id number] Visit Date: 09/14/2013 16:11:03 Attending Provider: MATT TONG PA-C Primary Care [...] the Following Medications: Medication list as of 09-14-13 16:11 Attention: If you have any medications at [...] Electronically Signed By: MATT TONG PA-C Signed On:14-SEP-2013 16:11:01 Additional Information: Source: [facility] POWERCHART Document Id: [id number] Miscellaneous - Roma Lindo, RFarshadN. - 09/14/2013 3:19 PM CDT Adult Hot Mill Supervisor Intake/History Adult Hot Mill Supervisor Intake/History Entered On: 09/14/2013 15:21 CDT Performed On: 09/14/2013 15:19 CDT by ROMA LINDO billing supervisor Chief Complaint : Here for second injection of left knee of Synvisc Temperature Core : 36.6 DegC(Converted to: 97.9 DegF) Peripheral Pulse Rate : 78 /min Respiratory Rate : 18 /min Systolic Blood Pressure : 132 mmHg Diastolic Blood Pressure : 74 mmHg NIBP Mean : 93 mmHg SpO2 : 95 % Oxygen Therapy : Room air ROMA LINDO Taz RN - 09/14/2013 15:19 CDT General Info Information Given By : Patient Preferred Communication Mode : Verbal Languages : Kinyarwanda ROMA LINDO Taz RN - 09/14/2013 15:19 CDT Subjective Pain Symptoms : No ROMA LINDO Taz - 09/14/2013 15:19 CDT Dependent Habits Tobacco Use/Currently Using : No Tobacco Use/Last 12 months : No Exposure to Tobacco Smoke : Care provider denies smoking in home Smoking Status : Former smoker BELGICA ROMA N - 09/14/2013 15:19 CDT Tobacco Use Grid Type : Cigarettes Last Use : 1996 PRUETTTeriDIPTI ROMA N - 09/14/2013 15:19 CDT Caffeine Use Grid Caffeine Use : None ROMA LINDO Taz - 09/14/2013 15:19 CDT Recreational Drug Use Grid Drug Use : None BELGICA ROMA N - 09/14/2013 15:19 CDT Source: [employer] Document Id: [id number] CDT!32 documented in this encounter Plan of Treatment Upcoming Encounters Date Type Specialty Care Team Description 01/24/2022 Diagnostic Otorhinolaryngology Lara Snell Au.D. [address] [facility], [place] [phone] 01/29/2022 Office Visit Orthopedic Surgery Laurie Dumont APRN , C.N.P., D.N.P. [address] [facility], [place] [phone] (Wo rk) documented as of this encounter Visit Diagnoses Not on filedocumented in this encounter
--- OUTSIDE RECORDS SUMMARY | 2022-01-23 19:40 | XMS_ITS | Encounter Summary ---
:1960 Author Organization [facility] Address [address] [place] [address] Care Team Providers Name Role Phone Unavailable Primary Care Provider Unavailable Encounter Details Date Type Department Care Team Description 10/24/2009 Hospital Encounter HX [facility] CAM INPT/OBSRV Darya Mijares M.D. [address] [place] [phone] (Wo rk) Social History Tobacco [...] attend roman catholic or Patient refused 2021 gnosticist services? 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 [address] [place], [place] [phone] 01/29/2022 Office Visit Orthopedic Surgery Laurie Dumont, ANA , C.N.P., D.N.P. [address] [place] [phone] (Wo rk) documented as of this encounter Visit Diagnoses Not on filedocumented in this encounter
--- OUTSIDE RECORDS SUMMARY | 2022-01-23 19:40 | XMS_ITS | Encounter Summary ---
:1960 Author Organization [facility] Address [address] [place] [address] Care Team Providers Name Role Phone Unavailable Primary Care Provider Unavailable Encounter Details Date Type Department Care Team Description 05/02/2009 Hospital Encounter HX NO MAPPING Noe Mijares M.D. [address] [place], [place] [phone] (Wo rk) Social History [...] you attend adventism or Patient refused 2021 holiness services? 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 [address] [place], [place] [phone] 01/29/2022 Office Visit Orthopedic Surgery Laurie Dumont APRN , C.N.P., D.N.P. [address] [place], [place] [phone] (Wo rk) documented as of this encounter Visit Diagnoses Not on filedocumented in this encounter
--- OUTSIDE RECORDS SUMMARY | 2022-01-23 19:40 | XMS_ITS | Encounter Summary ---
:1960 Author Organization [facility] Address [address] [place] [address] Care Team Providers Name Role Phone Unavailable Primary Care Provider Unavailable Encounter Details Date Type Department Care Team Description 07/15/2011 Hospital Encounter HX [facility]GERY Diaz Giraldo M.D. [address] [place], [place] [address] (Wo rk) Social History Tobacco Use Types [...] or relatives? How often do you attend jain or Patient refused 2021 sabianism services? Do you belong to any clubs or No 12/20/2021 organizations such as jain groups, unions, fraternal or athletic groups, or [...] at Date Recorded Male 06/23/2021 7:46 PM SEASONING MIXER documented as of this encounter Last Filed Vital Signs Vital Sign Reading Time Taken Comments Blood Pressure 111/71 07/15/2011 9:40 AM SEASONING MIXER Pulse 60 07/15/2011 9:40 AM SEASONING MIXER Temperature - - Respiratory Rate 16 07/15/2011 9:40 AM SEASONING MIXER Oxygen Saturation - - Inhaled Oxygen Concentration - - Weight - - Height 182 cm (5' 11.65) 07/15/2011 7:37 AM SEASONING MIXER Body Mass Index - - documented in this encounter Medications at Time of Discharge Medication Sig Dispensed Refills Start Date End Date ASPIRIN ORAL Take 1 tablet by mouth daily. 0 01/1804/13/2021 documented as of this encounter Procedure Notes Jelena Hunter RShahzad - 07/15/2011 7:37 AM CST Preprocedure Checklist Preprocedure Checklist Entered On: 07/15/2011 7:44 SEASONING MIXER Performed On: 07/15/2011 7:37 SEASONING MIXER by JELENA HUNTER RN Checklist Last Fluid Intake : 07/14/2011 20:00 SEASONING MIXER Last Food Intake : 07/14/2011 20:00 SEASONING MIXER Last Void : 07/15/2011 7:00 SEASONING MIXER JELENA HUNTER RN - 07/15/2011 7:37 SEASONING MIXER Surgery Prep Grid Contacts/Glasses Removed : NA Dentures Removed : NA Hairpins/Hairpiecies Removed : NA Hearing Aid Removed : NA Home Prep Complete : NA Jewelry/Piercing Removed : NA Makeup/Nail Yoruba Removed : NA Oral Hygiene : NA Preop Scrub AM of Surgery : NA Preop Scrub Night Prior to Surgery : NA Prosthesis Removed : NA Surgical Prep Verified : Yes Tampon Removed : NA Wearing Patient Gown : Yes JELENA HUNTER RN - 07/15/2011 7:37 SEASONING MIXER Patient Rights Grid Blood Consent Signed : NA Surgical/Procedure Consent Signed : Yes JELENA HUNTER RN - 07/15/2011 7:37 SEASONING MIXER Family Location : waiting at home JELENA HUNTER RN - 07/15/2011 7:37 SEASONING MIXER Checklist II Patient Safety Grid Allergy Band [...] NA Relevant Images in Medical Record : NA Review of Labs : NA Procedure/Site Verified by Patient/Family : Yes Procedure/Site Verified by RN : Yes Procedure/Site Verified by Physician : Yes Type & Screen/Type & Cross Completed : NA JELENA HUNTER RN - 07/15/2011 7:37 SEASONING MIXER RN Who Verified Site : JELENA HUNTER RN Physician Who Verified Site : KHARI GIRALDO MD, GWYNNE A RN - 07/15/2011 7:37 SEASONING MIXER BALDO Screening Known Obstructive Sleep Apnea : No JELENA HUNTER RN - 07/15/2011 7:37 SEASONING MIXER BALDO Assessment Do you have high blood pressure or have you been told to take medication for high blood pressure? : No Frequency of Snoring : Often (1-2 times per week) Frequency of Gasping, Choking, Snorting : Never Neck Circumference (cm) : 44/45 Total Sleep Apnea Clinical Score : 7 Total Number of Historical Features : 0 JELENA HUNTER RN - 07/15/2011 7:37 SEASONING MIXER Valuables/Belongings Valuables/Belongings Grid Valuables at Bedside Clothes, Patient Valuables : Jacket, Pants, Shirt, Shoes JELENA HUNTER RN - 07/15/2011 7:37 SEASONING MIXER Education Preprocedure Education Grid Procedure Type : cystoscopy Education Topics : Anesthesia/Sedation, Plan of care Individuals Taught : Patient Barriers to Learning : None evident Teaching Method : Explanation Teaching Evaluation : Verbalizes understanding JELENA HUNTER RN - 07/15/2011 7:37 SEASONING MIXER Preop Holding Mode of Arrival : Ambulatory Preoperative Orders Complete : Yes JELENA HUNTER RN - 07/15/2011 7:37 SEASONING MIXER Advance Directive Advanced Directives : No EILEENJELENA ROLDAN RN - 07/15/2011 7:37 SEASONING MIXER Vital Signs Temperature Core : 36.5C(Converted to: 97.7DegF) Peripheral Pulse Rate : 80/min Respiratory Rate : 16/min Systolic Blood Pressure : 130mmHg Diastolic Blood Pressure : 86mmHg NIBP Mean : 101mmHg SpO2 : 100% Oxygen Saturation Monitoring Frequency : Intermittent Oxygen Therapy : Room air Height : 182cm(Converted to: 6ft 0inch(es)) Estimated Weight : 107kg Estimated Weight Conversion to Pounds : 235.40lb JELENA UHNTER RN - 07/15/2011 7:37 SEASONING MIXER Allergy Allergies (Active) Nyquil Cold Medicine Estimated Onset Date: Unspecified ; Created By: LAURIE KAUFFMAN RN; Reaction Status: Active ; Category: Drug ; Substance: Nyquil Cold Medicine ; Type: Allergy ; Updated By: LAURIE KAUFFMAN RN; Reviewed Date: 07/01/2011 17:21 SEASONING MIXER Preprocedural Pause Correct Patient Identity : Patient verbalizes self, Patient wristband ID, Family/responsible alliance party ID Correct Procedure Site and Side : cystoscopy Correct Procedure Site/Side Verified By : Patient/responsible alliance party, Nurse, MD Site Marking : N/A Pre-Procedure Pause Verbal Confirm. of : Procedure, Site, Side, Patient Position, Patient ID JELENA HUNTER RN - 07/15/2011 7:37 SEASONING MIXER Source: [facility] POWERCHART Document Id: [id number] SEASONING MIXER!91 ONING MIXER documented in this encounter Nursing Notes Jelena Hunter R.N. - 07/15/2011 7:21 AM CST Day Surgery Admission History/Asmt Adult Document Has Been Updated Day Surgery Admission History/Asmt Adult Entered On: 07/15/2011 7:36 SEASONING MIXER Performed On: 07/15/2011 7:21 SEASONING MIXER by JELENA HUNTER RN General Info Preferred Name : Ray Mode of Arrival : Ambulatory Accompanied By : Alone Chief Complaint : here for cystoscopy Preferred Communication Mode : Verbal Information Given By : Patient Languages : Tajik Have you received chemotherapy in last 48 hours? : No JELENA HUNTER RN - 07/15/2011 7:21 SEASONING MIXER Allergy Allergies (Active) Nyquil Cold Medicine Estimated Onset Date: Unspecified ; Created By: LAURIE KAUFFMAN RN; Reaction Status: Active ; Category: Drug ; Substance: Nyquil Cold Medicine ; Type: Allergy ; Updated By: LAURIE KAUFFMAN RN; Reviewed Date: 07/01/2011 17:21 SEASONING MIXER Anesth/Transfusion Anesthesia/Transfusions : Prior anesthesia JELENA HUNTER RN - 07/15/2011 7:21 SEASONING MIXER ID Screen Drug Resistant Organism : No JELENA HUNTER RN 07/15/2011 7:21 SEASONING MIXER Nutrition Nutrition Risk Factors by History Adult : None Home Diet : Regular Feeding Ability : Complete independence Eating Difficulties : None Appetite : Excellent JELENA HUNTER RN 07/15/2011 7:21 SEASONING MIXER Home Environment Current Daily Living Assistance : None Living Situation : Home independently Home Equipment : None Sensory Deficits : None Mobility Assistance Prior to Admission : Independent Current Home Treatments : None Professional Skilled Services : None Special Services and Community Resources : None JELENA HUNTER RN 07/15/2011 7:21 SEASONING MIXER Dependent Habits Alcohol Use : Yes JELENA HUNTER 07/15/2011 7:44 SEASONING MIXER Tobacco Use/Currently Using : No Tobacco Use/Last 12 months : No Exposure to Tobacco Smoke : Care provider denies smoking in home JELENA HUNTER 07/15/2011 7:21 SEASONING MIXER Smoking Status : Former smoker JELENA HUNTER 07/15/2011 7:44 SEASONING MIXER JELENA HUNTER 07/15/2011 7:44 SEASONING MIXER Tobacco Use Grid Type : Cigarettes Last Use : 1996 JELENA HUNTER RN 07/15/2011 7:21 SEASONING MIXER Caffeine Use Grid Caffeine Use : None JELENA HUNTER RN 07/15/2011 7:21 SEASONING MIXER Recreational Drug Use Grid Drug Use : None JELENA HUNTER RN - 07/15/2011 7:21 SEASONING MIXER AUDIT Tool How Often Do You Have A Drink : 2 to 3 times a week How Many Drinks in a Day When Drinking : 1 or 2 Six or More Drinks On One Occassion : Never Audit Phase 1 Score : 3 EILEENARLEY ANTONIOYNWALKER Mcgarry RN - 07/15/2011 7:44 SEASONING MIXER Psychosocial Adult Domestic Abuse Concerns : None JELENA HUNTER RN - 07/15/2011 7:21 SEASONING MIXER Advance Directive Advanced Directives : No JELENA HUNTER - 07/15/2011 7:21 SEASONING MIXER Educ Needs Patient/Family Education Needs : Plan of care, Surgery JELENA HUNTER 07/15/2011 7:21 SEASONING MIXER Learning Style Preference Adult Grid Patient : Verbal explanation Family : None JELENA HUNTER - 07/15/2011 7:21 SEASONING MIXER Psycho/Emotional Pain Symptoms : No JELENA HUNTER - 07/15/2011 7:21 SEASONING MIXER Peripheral IV Peripheral IV Assess/Intervention Grid Peripheral IV #1 IV Activity : Start Number of Attempts : 1 Date of Insertion : 07/15/2011 SEASONING MIXER IV Site : Hand Laterality : Left Catheter Size : 18 Catheter Type : Protective Site Condition : No complications Drainage Description : None Infiltration Score : 0 Phlebitis Score : 0 JELENA HUNTER RN - 07/15/2011 7:21 SEASONING MIXER Carlos Sensory Perception Carlos : No impairment Moisture Carlos : Rarely moist Activity Carlos : Walks frequently Mobility Carlos : No limitations Nutrition Carlos : Excellent Friction and Shear Carlos : Potential problem Carlos Score : 22 EILEENJELENA ANTONIO - 07/15/2011 7:21 SEASONING MIXER Hendrich II Fall Risk Confusion/Disorientation Hendrich : [...] steps Fall Risk Score Hendrich II : 1 JELENA HUNTER RN - 07/15/2011 7:21 SEASONING MIXER DC Needs Anticipated Discharge Date : 07/15/2011 SEASONING MIXER Discharge To, Anticipated : Home independently Home Treatments, Anticipated : None Home Equipment, Anticipated : None Professional Skilled Services, Anticipated : None Special Serv & Comm Res, Anticipated : None Needs Assistance with Transportation : No Needs Assistance at Home Upon Discharge : No JELENA HUNTER RN - 07/15/2011 7:21 SEASONING MIXER FLACC Face FLACC : No particular expression or smile Legs FLACC : Normal position or relaxed Activity FLACC : Lying quietly, normal position, moves easily Cry FLACC : No cry, awake or asleep Consolabillity FLACC : Content, relaxed FLACC Pain Scale Score : 0 JELENA HUNTER RN - 07/15/2011 7:21 SEASONING MIXER Integumentary Integumentary Patient Stated Symptoms : None Skin Turgor : Elastic Skin Integrity : Intact Mucous Membrane Color : [place] Mucous Membrane Description : Moist Skin Color : Normal for ethnicity Skin Description : Dry Skin Temperature : Warm JELENA HUNTER RN - 07/15/2011 7:21 SEASONING MIXER [facility] Document Id: [id number] SEASONING MIXER!9 ONING MIXER documented in this encounter OR Notes Op Note - Khari Giraldo M.D. - 07/15/2011 12:00 AM CST [id number] Preoperative Diagnosis: Hematuria. Postoperative Diagnosis: Hematuria. Procedure Performed: Cystoscopy retrogrades. Summary: See my dictated note. Mr. Whittaker had a renal ultrasound that showed slight growth in the left lower pole cyst to a size of 1.6-centimeters and some echogenic debris layering in the dependent portion. Family history of prostate cancer. Procedure/Findings: Under MAC anesthesia cystoscopy was undertaken. The urethra, prostate were normal. The prostate was small. Minimal residual urine. Full examination of bladder found no cause for hematuria. Bilateral retrogrades showed no abnormalities. Renal ultrasound in March showed a 1.6-centimeter cyst as described above. Assessment 1) Hematuria. 2) Family history of prostate cancer. Plan CT Scan of the Abdomen & Pelvis with and without I.V. contrast. This has not been done since 2006 and with his family history of prostate cancer even though this is rarely inherited I think it is prudent to reassess his kidneys with a CT Scan rather than just relying on ultrasound. The latter can be done in the interim with CT Scans being done less frequently. Khari Giraldo M.D. /vikki CC: Office Of Dr. Giraldo [facility] Electronically Signed By: KHARI GIRALDO MD On: 09/16/2011 08:54 AM Source: [facility] MHSDOLBEYNONRADSYS Document Id: [id number] documented in this encounter Miscellaneous Notes Miscellaneous - Jelena Hunter RShahzad - 07/15/2011 10:00 AM SEASONING MIXER Adult Postprocedure Assessment Adult Postprocedure Assessment Entered On: 07/15/2011 9:23 SEASONING MIXER Performed On: 07/15/2011 10:00 SEASONING MIXER by JELENA HUNTER RN Vital Signs Temperature Core : 36.7C(Converted to: 98.1DegF) Peripheral Pulse Rate : 62/min Respiratory Rate : 16/min Systolic Blood Pressure : 112mmHg Diastolic Blood Pressure : 65mmHg NIBP Mean : 81mmHg SpO2 : 99% Oxygen Saturation Monitoring Frequency : Continuous Oxygen Therapy : Room air JELENA HUNTER RN - 07/15/2011 9:19 SEASONING MIXER General Level of Consciousness : Alert Orientation : Oriented x 3 Skin Color : Normal for ethnicity Skin Description : Dry Skin Temperature : Warm Pain Symptoms : No JELENA HUNTER RN - 07/15/2011 9:19 SEASONING MIXER FLACC Face FLACC : No particular expression or smile Legs FLACC : Normal position or relaxed Activity FLACC : Lying quietly, normal position, moves easily Cry FLACC : No cry, awake or asleep Consolabillity FLACC : Content, relaxed FLACC Pain Scale Score : 0 JELENA HUNTER RN - 07/15/2011 9:19 SEASONING MIXER Cardiovascular Heart Rhythm : Regular JELENA HUNTER 07/15/2011 9:19 SEASONING MIXER Pulses Grid Radial Pulse, Left : 2+ Normal Radial Pulse, Right : 2+ Normal JELENA HUNTER 07/15/2011 9:19 SEASONING MIXER Cardiac Rhythm Techs Ventricular Rate : 62bpm Ventricular Rhythm : Regular JELENA HUNTER 07/15/2011 9:19 SEASONING MIXER Respiratory Anesthesia Type : MAC Airway Type : None Respiratory Pattern : Regular Respirations : Unlabored All Lobes Breath Sounds : Clear JELENA HUNTER 07/15/2011 9:19 SEASONING MIXER GI/ Urinary Elimination : Voiding, no difficulties JELENA HUNTER 07/15/2011 10:21 SEASONING MIXER Nausea Symptoms : No Abdomen Description : Rounded JELENA HUNTER 07/15/2011 9:19 SEASONING MIXER Integumentary Integumentary Patient Stated Symptoms : None Skin Turgor : Elastic Skin Integrity : Intact Mucous Membrane Color : [place] Mucous Membrane Description : Moist Skin Color : Normal for ethnicity Skin Description : Dry Skin Temperature : Warm JELENA HUNTER 07/15/2011 9:19 SEASONING MIXER Incision/Wound Incision/Wound Care Grid Wound Numbering : 0 JELENA HUNTER 07/15/2011 9:19 SEASONING MIXER Peripheral IV Peripheral IV Assess/Intervention Grid Peripheral IV #1 IV Activity : Discontinue Number of Attempts : 1 Date of Insertion : 07/15/2011 SEASONING MIXER IV Site : Hand Laterality : Left Catheter Size : 18 Catheter Type : Protective Infiltration Score : 0 Phlebitis Score : 0 Comments (Comment: IV discontinued with plastic cath intact upon removal, site good [JELENA HUNTER 07/15/2011 9:19 SEASONING MIXER] ) ELSA JELENA Mcgarry 07/15/2011 9:19 SEASONING MIXER I&O Oral Intake : 250mL Other Intake : 200mL (Comment: IV LR in PAR [JELENA HUNTER 07/15/2011 9:19 SEASONING MIXER] ) JELENA HUNTER 07/15/2011 9:19 SEASONING MIXER Nutrition Morning Snack : 100% JELENA HUNTER 07/15/2011 9:19 SEASONING MIXER Neurologic Swallowing Difficulty/Aspiration Risk : None Extremity Movement : Equal Facial Symmetry : Symmetric Characteristics of Speech : Clear JELENA HUNTER 07/15/2011 9:19 SEASONING MIXER Upper Extremity Nail Bed Color Hands Grid Left Hand : [place] Right Hand : [place] JELENA HUNTER 07/15/2011 9:19 SEASONING MIXER Capillary Refill Hand Grid Left Hand : < 2 seconds Right Hand : < 2 seconds JELENA HUNTER 07/15/2011 9:19 SEASONING MIXER Upper Extremity Color Grid Left : [place] Right : [place] JELENA HUNTER 07/15/2011 9:19 SEASONING MIXER Upper Extremity Temperature Grid Left : Warm Right : Warm JELENA HUNTER 07/15/2011 9:19 SEASONING MIXER NV Upper Extremity Pulses Grid Radial Pulse, Left : 2+ Normal Radial Pulse, Right : 2+ Normal JELENA HUNTER 07/15/2011 9:19 SEASONING MIXER PARSAP Activity Status : Moves 4 extremities [...] on room air Urine Output, PARSAP : Unable to void but comfortable PARSAP Score : 19 JELENA HUNTER 07/15/2011 9:19 SEASONING MIXER Duckworth Duckworth Agitation Sedation Scale (RASS) : Alert and calm RASS Score : 0 JELENA HUNTER 07/15/2011 9:19 SEASONING MIXER Carlos Sensory Perception Carlos : No impairment Moisture Carlos : Rarely moist Activity Carlos : Walks frequently Mobility Carlos : No limitations Nutrition Carlos : Excellent JELENA HUNTER 07/15/2011 9:19 SEASONING MIXER Hendrich II Fall Risk Confusion/Disorientation Hendrich : [...] Risk Score Hendrich II : 2 JELENA HUNTER RN - 07/15/2011 9:19 SEASONING MIXER Education General Patient Education Powergrid Topics : Discharge instructions/Medication list, Plan of care JELENA HUNTER RN - 07/15/2011 9:19 SEASONING MIXER [facility] America[facility] Document Id: [id number] SEASONING MIXER!3 ONING MIXER Miscellaneous - Jelena Hunter RShahzad - 07/15/2011 9:02 AM CST Adult Postprocedure Assessment Adult Postprocedure Assessment Entered On: 07/15/2011 9:08 SEASONING MIXER Performed On: 07/15/2011 9:02 SEASONING MIXER by JELENA HUNTER RN Vital Signs Temperature Core : 36.2C(Converted to: 97.2DegF) (LOW) Peripheral Pulse Rate : 55/min (LOW) Respiratory Rate : 16/min Systolic Blood Pressure : 108mmHg Diastolic Blood Pressure : 56mmHg NIBP Mean : 73mmHg SpO2 : 98% Oxygen Saturation Monitoring Frequency : Continuous Oxygen Flow Rate : 3L/min Oxygen Therapy : Nasal Cannula JELENA HUNTER RN - 07/15/2011 9:02 SEASONING MIXER General Level of Consciousness : Drowsy Orientation : Identifies self Skin Color : Normal for ethnicity Skin Description : Dry Skin Temperature : Warm Pain Symptoms : No JELENA HUNTER RN - 07/15/2011 9:02 SEASONING MIXER FLACC Face FLACC : No particular expression or smile Legs FLACC : Normal position or relaxed Activity FLACC : Lying quietly, normal position, moves easily Cry FLACC : No cry, awake or asleep Consolabillity FLACC : Content, relaxed FLACC Pain Scale Score : 0 EILEENJAMAR JELENA A 07/15/2011 9:02 SEASONING MIXER Cardiovascular Heart Rhythm : Regular Nail Bed Color : [place] Edema : None Capillary Refill : Less than 2 seconds JELENA HUNTER 07/15/2011 9:02 SEASONING MIXER Pulses Grid Radial Pulse, Left : 2+ Normal Radial Pulse, Right : 2+ Normal JELENA HUNTER 07/15/2011 9:02 SEASONING MIXER Cardiac Rhythm Techs Ventricular Rate : 55bpm Ventricular Rhythm : Regular JELENA HUNTER 07/15/2011 9:02 SEASONING MIXER Respiratory Anesthesia Type : MAC Airway Type : None Respiratory Pattern : Regular Respirations : Unlabored All Lobes Breath Sounds : Clear JELENA HUNTER 07/15/2011 9:02 SEASONING MIXER GI/ Nausea Symptoms : No JELENA HUNTER 07/15/2011 9:02 SEASONING MIXER Integumentary Integumentary Patient Stated Symptoms : None Skin Turgor : Elastic Skin Integrity : Intact Mucous Membrane Color : [place] Mucous Membrane Description : Moist Skin Color : Normal for ethnicity Skin Description : Dry Skin Temperature : Warm JELENA HUNTER 07/15/2011 9:02 SEASONING MIXER Peripheral IV Peripheral IV Assess/Intervention Grid Peripheral IV #1 IV Activity : Assessment Number of Attempts : 1 Date of Insertion : 07/15/2011 SEASONING MIXER IV Site : Hand Laterality : Left Catheter Size : 18 Catheter Type : Protective Site Condition : No complications Drainage Description : None Infiltration Score : 0 Phlebitis Score : 0 JELENA HUNTER 07/15/2011 9:02 SEASONING MIXER I&O Other Intake : 1,700mL (Comment: IV LR intake i n OR [JELENA HUNTER 07/15/2011 9:02 SEASONING MIXER] ) Emesis : 0mL JELENA HUNTER 07/15/2011 9:02 SEASONING MIXER Neurologic Swallowing Difficulty/Aspiration Risk : None Extremity Movement : Equal Facial Symmetry : Symmetric Characteristics of Speech : Clear JELENA HUNTER 07/15/2011 9:02 SEASONING MIXER Upper Extremity Nail Bed Color Hands Grid Left Hand : [place] Right Hand : [place] JELENA HUNTER 07/15/2011 9:02 SEASONING MIXER Capillary Refill Hand Grid Left Hand : < 2 seconds Right Hand : < 2 seconds JELENA HUNTER 07/15/2011 9:02 SEASONING MIXER Upper Extremity Color Grid Left : [place] Right : [place] JELENA HUNTER 07/15/2011 9:02 SEASONING MIXER Upper Extremity Temperature Grid Left : Warm Right : Warm JELENA HUNTER 07/15/2011 9:02 SEASONING MIXER [place] Upper Extremity Pulses Grid Radial Pulse, Left : 2+ Normal Radial Pulse, Right : 2+ Normal JELENA HUNTER 07/15/2011 9:02 SEASONING MIXER Modified Jessica Activity : Moves 4 extremities voluntarily or on command Respiratory : Able to deep breathe and cough freely Circulation : BP +/- 20% of preprocedural level or not unusually high or low Consciousness : Arouses on calling O2 Saturation : Needs oxygen to maintain > 92% Jessica l Score : 8 JELENA HUNTER 07/15/2011 9:02 SEASONING MIXER [place] Agitation Sedation Scale (RASS) : Drowsy RASS Score : -1 JELENA HUNTER 07/15/2011 9:02 SEASONING MIXER Carlos Sensory Perception Carlos : No impairment Moisture Carlos : Rarely moist Activity Carlos : Walks frequently Mobility Carlos : No limitations Nutrition Carlos : Excellent Friction and Shear Carlos : Potential problem Carlos Score : 22 JELENA HUNTER 07/15/2011 9:02 SEASONING MIXER Hendrich II Fall Risk Confusion/Disorientation Hendrich : No Depression Fall Risk Hendrich : No Altered Elimination Fall Risk Hendrich : No Dizziness/Vertigo Fall Risk Hendrich : No Gender, Male Fall Risk Hendrich : Yes Prescribed Antiepileptics Hendrich : No Prescribed Benzodiazepines Hendrich : No Rising From Chair Fall Risk Hendrich : Multiple attempts but successful Fall Risk Score Hendrich II : 4 JELENA HUNTER 07/15/2011 9:02 SEASONING MIXER Source: [facility] POWERCHART Document Id: [id number] SEASONING MIXER!120 ONING MIXER documented in this encounter Plan of Treatment Upcoming Encounters Date Type Specialty Care Team Description 01/24/2022 Diagnostic Otorhinolaryngology Lara Snell Au.D. [address] [place], [place] [phone] 01/29/2022 Office Visit Orthopedic Surgery Laurie Dumont APRN C.N.P., D.N.P. [address] [place], [place] [phone] (Wo rk) documented as of this encounter Procedures Procedure Name Priority Date/Time Associated Diagnosis Comme nts BACTERIAL CULTURE, Routine 07/15/2011 8:30 AM Res ults for this AEROBIC, URINE SEASONING MIXER procedure are in the results section. documented in this encounter Results Bacterial Culture, Aerobic, Urine (07/15/2011 8:30 AM SEASONING MIXER) [facility] gist Method Time Signature Bacterial POWERCHART Culture, Aerobic, Urine HXPre No growth POWERCHART at 1 day. HXFinal No growth POWERCHART Specimen Anatomical Collection Method Collection Time Receive d Time (Source) Location / / Volume Laterality Urine 07/15/2011 8:30 AM 2 9:32 SEASONING MIXER AM SEASONING MIXER Khari Giraldo M.D. LAB MICROBIOLOGY - GENERAL O RDERABLES Performing Organization Address City/State/ZIP Code Phon e Number POWERCHART documented in this encounter Visit Diagnoses Not on filedocumented in this encounter
--- OUTSIDE RECORDS SUMMARY | 2022-01-23 19:40 | XMS_ITS | Encounter Summary ---
:1960 Author Organization [facility] Address [address] [place] [address] Care Team Providers Name Role Phone Unavailable Primary Care Provider Unavailable Encounter Details Date Type Department Care Team Description 06/27/2011 Hospital Encounter HX [facility] Mir Briceño, ANA, C.N.P., D. N.P. [address] [place] [address] (Wo rk) Social History Tobacco Use Types [...] you attend advent or Patient refused 2021 bahai services? Do [...] at Date Recorded Male 06/23/2021 7:46 PM JOINT YARNER documented as of this encounter Medications at Time of Discharge Medication Sig Dispensed Refills Start Date End Date ASPIRIN ORAL Take 1 tablet by mouth daily. 0 01/1804/13/2021 documented as of this encounter Progress Notes Mir Briceño D.N.P., C.N.P. - 07/01/2011 12:00 AM CST Addendum Document Contains Addenda Modification to date of visit by Joan Reece, sales professional bilingual. CHIEF COMPLAINT/REASON FOR VISIT 1. Routine physical examination. 2. Preoperative physical examination. HISTORY OF PRESENT ILLNESS The patient is a 50-year-old male that presents to the clinic today as he is due for his routine physical examination and also requires a preoperative physical examination for a urology evaluation by Dr. Lopez on 07/15/2011. He otherwise reports that he is not having any other further concerns or issues at this time. PAST MEDICAL/SURGICAL HISTORY Past medical history includes: Gastroesophageal reflux disease since 2008. Hematuria since 2006. Past surgical history includes: Arthroscopy of the left knee in 2009. Colonoscopy in 2009. Esophagoscopy in 2010. Repair of rectal fistula in 1988. Open reduction and internal fixation of the left wrist in 1994. A personal history of tobacco use. He quit in 1996. FAMILY HISTORY Past family history includes a brother diagnosed with prostate cancer at the age of 56. A mother at 68 years of age secondary to heart problems. Father that is presently alive and healthy. Four sisters are presently alive and healthy and two brothers are presently alive and healthy. ALLERGIES NyQuil cold medication. SYSTEMS REVIEW The review of systems is negative for constitutional, eyes, ENT (with occasional episodes of bloody noses), respiratory, breast and skin, CVS, GI, urinary, musculoskeletal, neuro, endocrine, mental health and lymphatic. SOCIAL HISTORY Patient was previously a smoker but quit in 1996 and has occasional alcohol intake and denies street drug usage. ALLERGIES NyQuil cold medicine. CURRENT MEDICATIONS Omeprazole 40 mg by mouth daily. Aspirin 81 mg by mouth daily. PHYSICAL EXAMINATION OBJECTIVE: Patient is alert/oriented x 3. HEAD: Normocephalic/atraumatic. PUPILS: [place] OROPHARYNX: [place] and moist. TMs: Bilateral TMs are clear, bony landmarks noted and WNL. NARES: Patent, no erythema or drainage noted. NECK: No anterior/posterior lymphadenopathy noted. HEART: Regular S1, S2, no murmurs, rubs or gallops noted. LUNGS: Clear to auscultation, no prolonged expiratory phases, wheezing, rales or rhonchi noted. SKIN: Without unusual rashes or suspicious lesions ABDOMEN: Bowel sounds are positive in all four quadrants. No hepatosplenomegaly is noted. No rebound, tenderness, guarding, or rigidity is noted. EXTREMITIES: No lower extremity edema is noted on examination. IMPRESSION/REPORT/PLAN 1. Otherwise unremarkable routine physical examination. 2. Preoperative physical examination for cystoscopy scheduled with Dr. Lopez on 07/15/2011, procedure to be as scheduled. PLAN: Discussed the findings at length with the patient. Presently he is to hold all [id number] medication prior to procedure as recommended. Presently, at this time, I do not have any cardiac concerns, pulmonary concerns, nor is the patient a DVT risk at this time. Patient stated he understands this plan as he otherwise denied having any other further concerns or issues. The patient ambulated out of the clinic in no acute distress. PATIENT EDUCATION: Ready to learn No apparent learning barriers were identified Learning preferences include listening Explained diagnosis and treatment plan Patient/Child/Caregiver expressed understanding of the content Mir Briceño D.N.P., F.N.P. /gretta Electronically Signed By: MIR BRICEÑO DNP, FNP On: 07/08/2011 07:49 AM Mir Briceño D.N.P., F.N.P. /terrance Electronically Signed By: MIR BRICEÑO DNP, FNP On: 07/08/2011 07:49 AM Co-Signed By: MIR BRICEÑO DNP, FNP On: 07/08/2011 04:20 PM Source: [facility] JOSE Document Id: [id number] T YARNER documented in this encounter Miscellaneous Notes Miscellaneous - Mir Briceño D.N.P., C.N.P. - 07/01/2011 8:20 PM JOINT YARNER Ambulatory Patient Summary [facility] [address] [place] [address] Visit Information Name: HUSSEIN HERNANDEZ Current Date: 07/01/2011 20:20:44 Primary Care Provider: MIR BRICEÑO DNP, LUGGAGE MAKER Your Medications Here is a list of your medications. It is important to take your medications as directed. Use a pillbox or chart to help remind you to take your medications. Please let your doctor or nurse know if you have problems taking your medications. Medication/Strength Dose Route Frequency Indications/Special Instructions/Comments omeprazole (omeprazole 40 mg oral delayed release capsule) 40 mg Oral once a day Take on empty stomach, then eat 45 minutes later aspirin (aspirin 81 mg oral tablet) 1 tab(s) Oral once a day Your Allergies & Intolerances Substance Reaction Symptoms Category Comments Nyquil Cold Medicine Drug Your Problem List Problem Status Onset Comments Hematuria, microscopic Active 02/23/2007 GERD [Gastroesophageal reflux disease] Active 2008 Your Recommendations We want to make sure you get the tests, immunizations, and guidance you need to stay healthy. Here is a customized list of recommendations, based on information we have in your medical record. Your doctor may have additional recommendations for you, based on your personal medical history and risk factors. You can help us by calling us to make an appointment when you are due for your tests. Additional information regarding recommendations: Test/Treatment Last Done Next Due Additional Information Health Assessment every 1 year 07/01/2011 06/30/2012 Screening Colonoscopy or Flex Sig or Occult Blood 12/12/2009 12/10/2019 Checks for signs of cancer of the colon. Lipid Panel every 5 years Age 20-75 02/15/2011 02/14/2016 Checks blood for good (HDL) and bad (LDL) cholesterol. Know your numbers, they are one indicator of your risk for heart attack and stroke. Vaccine: Flu every 1 year 02/16/2011 02/16/2012 Immunization to help prevent you from getting the flu strain expected to be a problem for that year's flu season. Vaccine: Tetanus every 10 years 11/30/2004 11/28/2014 Immunization to help prevent you from getting the serious disease Tetanus (Lockjaw). Your Upcoming Appointments Date Time Location Reason Provider 07/15/2011 08:00 [facility] Surgery OP OP/DS cystoscopy/retrogrades Your Goals/Additional instructions: Source: [facility] POWERCHART Document Id: [id number] T YARNER Miscellaneous - Mir Briceño D.N.P., C.N.P. - 07/01/2011 8:20 PM JOINT YARNER Ambulatory Depart Summary [address] [address] Visit Information Name: HUSSEIN HERNANDEZ Current Date: 07/01/2011 20:20:43 Attending Provider: MIR BRICEÑO DNP, FNP Primary Care Provider: MIR BRICEÑO DNP, FNP HUSSEIN HERNANDEZ has been given the following list of medications: Your Medications It is important to take your medications as directed. Use a pill box or chart to help remind you to take your medications. Please let your doctor or nurse know if you have problems taking your medications. Medication/Strength Dose Route Frequency Indications/Special Instructions/Comments omeprazole (omeprazole 40 mg oral delayed release capsule) 40 mg Oral once a day Take on empty stomach, then eat 45 minutes later aspirin (aspirin 81 mg oral tablet) 1 tab(s) Oral once a day Additional Information: Yes - Current list of reconciled medications is provided and explained to the patient and/or family, guardian/caregiver. Source: [facility] ArsanisCHART Document Id: [id number] T YARNER Miscellaneous - Conversion, Historical Provider Ser - 07/01/2011 5:24 PM JOINT YARNER Health Assessment Health Assessment Entered On: 07/01/2011 17:25 JOINT YARNER Performed On: 07/01/2011 17:24 JOINT YARNER by DEBRA BARCENAS LPN Health Assessment Complete Health Assessment Complete or Modified : Annual Health Assessment Annual Health Assessment Completed : Yes DEBRA BARCENAS LPN - 07/01/2011 17:24 JOINT YARNER Nutrition Nutrition Risk Factors by History Adult : None DEBRA BARCENAS LPN - 07/01/2011 17:24 JOINT YARNER Functional Current Daily Living Assistance : None DEBRA BARCENAS LPN - 07/01/2011 17:24 JOINT YARNER Dependent Habits Tobacco Use/Currently Using : No Exposure to Tobacco Smoke : Care provider denies smoking in home Smoking Status : Never smoker DEBRA BARCENAS LPN - 07/01/2011 17:24 JOINT YARNER Tobacco Use Grid Type : Cigarettes Last Use : 1996 DEBRA BARCENAS LPN - 07/01/2011 17:24 JOINT YARNER Caffeine Use Grid Caffeine Use : None DEBRA BARCENAS LPN - 07/01/2011 17:24 JOINT YARNER Recreational Drug Use Grid Drug Use : None DEBRA BARCENAS LPN - 07/01/2011 17:24 JOINT YARNER Psychosocial Domestic Abuse Concerns : None DEBRA BARCENAS LPN - 07/01/2011 17:24 JOINT YARNER Advance Directive Advanced Directives : Yes DEBRA BARCENAS LPN - 07/01/2011 17:24 JOINT YARNER Educ Needs Learning Style Preference Adult Grid Patient : Printed materials Family : Printed materials DEBRA BARCENAS LPN - 07/01/2011 17:24 JOINT YARNER Source: [facility] POWERCHART Document Id: [id number] JOINT YARNER!30 Miscellaneous - Conversion, Historical Provider Ser - 07/01/2011 5:23 PM JOINT YARNER Obstructive Sleep Apnea Obstructive Sleep Apnea Entered On: 07/01/2011 17:24 JOINT YARNER Performed On: 07/01/2011 17:23 JOINT YARNER by DEBRA BARCENAS LPN BALDO Screening Known Obstructive Sleep Apnea : No DEBRA BARCENAS LPN - 07/01/2011 17:23 JOINT YARNER BALDO Assessment Do you have high blood pressure or have you been told to take medication for high blood pressure? : No Frequency of Snoring : Often (1-2 times per week) Frequency of Gasping, Choking, Snorting : I don't know Neck Circumference (cm) : 44/45 Total Number of Historical Features : 0 DEBRA BARCENAS LPN - 07/01/2011 17:23 JOINT YARNER Source: [facility] POWERCHART Document Id: [id number] JOINT YARNER!9 Miscellaneous - Conversion, Historical Provider Ser - 07/01/2011 5:19 PM JOINT YARNER Adult Dielectric Tester Intake/History Adult Dielectric Tester Intake/History Entered On: 07/01/2011 17:21 JOINT YARNER Performed On: 07/01/2011 17:19 JOINT YARNER by DEBRA BARCENAS LPN Intake Chief Complaint : preop-exploration/[id number] [place] Temperature Core : 36.8C(Converted to: 98.2DegF) Peripheral Pulse Rate : 72/min Respiratory Rate : 16/min Systolic Blood Pressure : 136mmHg Diastolic Blood Pressure : 82mmHg NIBP Mean : 100mmHg Height : 184cm(Converted to: 6ft 0inch(es), 72.44inch(es)) Actual Weight : 112.4kg(Converted to: 247lb 13oz) Dosing Weight Clinic : 112.40kg Clinic BSA : 2.40 Body Mass Index : 33.20kg/m2 DEBRA BARCENAS LPN - 07/01/2011 17:19 JOINT YARNER Subjective Pain Symptoms : No DEBRA BARCENAS LPN - 07/01/2011 17:19 JOINT YARNER Dependent Habits Tobacco Use/Currently Using : No Exposure to Tobacco Smoke : Care provider denies smoking in home Smoking Status : Former smoker DEBRA BARCENAS LPN - 07/01/2011 17:19 JOINT YARNER Tobacco Use Grid Type : Cigarettes Last Use : 1996 DEBRA BARCENAS LPN - 07/01/2011 17:19 JOINT YARNER Caffeine Use Grid Caffeine Use : None DEBRA BARCENAS LPN - 07/01/2011 17:19 JOINT YARNER Recreational Drug Use Grid Drug Use : None DEBRA BARCENAS LPN - 07/01/2011 17:19 JOINT YARNER Allergy Allergies (Active) Nyquil Cold Medicine Estimated Onset Date: Unspecified ; Created By: LAURIE KAUFFMAN; Reaction Status:Active ; Category: Drug ; Substance: Nyquil Cold Medicine ; Type: Allergy ; Updated By: LAURIE KAUFFMAN; Reviewed Date: 03/05/2011 10:07 CDT Source: [facility] ArsanisCHART Document Id: [id number] JOINT YARNER!30 documented in this encounter Plan of Treatment Upcoming Encounters Date Type Specialty Care Team Description 01/24/2022 Diagnostic Otorhinolaryngology Lara Snell Au.D. [address] [place], [place] [phone] 01/29/2022 Office Visit Orthopedic Surgery Laurie Dumont, ANA , C.N.P., D.N.P. [address] [place] [phone] (Wo rk) documented as of this encounter Visit Diagnoses Not on filedocumented in this encounter
--- OUTSIDE RECORDS SUMMARY | 2022-01-23 19:40 | XMS_ITS | Encounter Summary ---
:1960 Author Organization [facility] Address [address] [place] [address] Care Team Providers Name Role Phone Unavailable Primary Care Provider Unavailable Encounter Details Date Type Department Care Team Description 08/08/2009 Hospital Encounter HX NO MAPPING Noe Mijares M.D. [address] [place], [place] [phone] (Wo rk) Social History [...] you attend advent or Patient refused 2021 mandaeism services? 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 [address] [place], [place] [phone] 01/29/2022 Office Visit Orthopedic Surgery Laurie Dumont APRN , C.N.P., D.N.P. [address] [place], [place] [phone] (Wo rk) documented as of this encounter Visit Diagnoses Not on filedocumented in this encounter
--- OUTSIDE RECORDS SUMMARY | 2022-01-23 19:40 | XMS_ITS | Encounter Summary ---
:1960 Author Organization [facility] Address [address] [place] [address] Care Team Providers Name Role Phone Unavailable Primary Care Provider Unavailable Encounter Details Date Type Department Care Team Description 02/12/2013 Hospital Encounter HX [facility] Mikey Smith III, M.D. [address] [place] [phone] (Wo rk) Social [...] you attend baptism or Patient refused 2021 faith services? 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 0 01/1804/13/2021 documented as of this encounter Progress Notes Kavon Stuart M.D. - 02/12/2013 3:04 PM CDT [id number] CHIEF COMPLAINT/REASON FOR VISIT Routine DOT. HISTORY OF PRESENT ILLNESS Mr. Hernandez is a 52-year-old white male with no significant past medical history. 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 He is cleared for 2 years without restrictions. Planned follow-up at that time for reevaluation. IMPRESSION/REPORT/PLAN Routine DOT exam. His questions were answered and reassurance was given. Kavon Stuart M.D./[facility] Electronically Signed By: KAVON STUART III, MD On: 02/22/2013 09:08 PM Source: [facility] MHSDOLBEFRANCES Document Id: [id number] documented in this encounter Miscellaneous Notes Miscellaneous - Kavon Stuart M.D. - 02/12/2013 4:17 PM CDT Ambulatory Depart Summary [address] [address] Visit Information Name: HUSSEIN HERNANDEZ [facility] Number: [id number] Visit Date: 02/12/2013 16:17:26 Attending Provider: KAVON STUART III, MD Primary [...] your provider for clarification. Additional Information: Source: [facility] POWERCHART Document Id: [id number] Miscellaneous - Kavon Stuart M.D. - 02/12/2013 4:17 PM CDT Ambulatory Patient Summary [address] [address] Visit Information Name: HUSSEIN HERNANDEZ [facility] Number: [id number] Current Date: 02/12/2013 16:17:27 Physicians Attending Provider: KAVON STUART III, MD Primary Care Provider: KAVON STUART III, MD Your Medications Here is a list of [...] Time Location Reason Provider No Appointments found Your Goals/Additional instructions: Source: [facility] POWERCHART Document Id: [id number] Miscellaneous - Ariana Eid L.P.N. - 02/12/2013 3:29 PM CDT Adult Charge Master Specialist Intake/History Adult Charge Master Specialist Intake/History Entered On: 02/12/2013 15:30 CDT Performed On: 02/12/2013 15:29 CDT by ARIANA EID LPN Intake Chief Complaint : here for DOT Temperature Core : 36.7 DegC(Converted to: 98.1 DegF) Peripheral Pulse Rate : 70 /min Respiratory Rate : 16 /min Systolic Blood Pressure : 136 mmHg Diastolic Blood Pressure : 88 mmHg NIBP Mean : 104 mmHg BP Location : Left upper extremity Blood Pressure Cuff Size : Large Height : 182 cm(Converted to: 6 ft 0 inch(es), 71.65 inch(es)) Actual Weight : 108.1 kg(Converted to: 238 lb 5 oz) Weight Source : Standing scale Dosing Weight Clinic : 108.1 kg Clinic BSA : 2.34 Body Mass Index : 32.63 kg/m2 ARIANA EID LPN - 02/12/2013 15:29 CDT General Info Information Given By : Patient Languages : Peruvian ARIANA EID LPN - 02/12/2013 15:29 CDT Subjective Pain Symptoms : No ARIANA EID LPN - 02/12/2013 15:29 CDT Dependent Habits Tobacco Use/Currently Using : No Exposure to Tobacco Smoke : Care provider denies smoking in home Smoking Status : Former smoker JUANITOHIPOLITO ARIANA Lua LPN - 02/12/2013 15:29 CDT Tobacco Use Grid Type : Cigarettes Last Use : 1996 ARIANA EID LPN - 02/12/2013 15:29 CDT Caffeine Use Grid Caffeine Use : None ARIANA EID LPN - 02/12/2013 15:29 CDT Recreational Drug Use Grid Drug Use : None ARIANA EID LPN - 02/12/2013 15:29 CDT Source: [facility] [employer] Document Id: [id number] CDT!36 Miscellaneous - Ariana Eid L.P.NFarshad - 02/12/2013 3:09 PM CDT Health Assessment Health Assessment Entered On: 02/12/2013 15:09 CDT Performed On: 02/12/2013 15:09 CDT by ARIANA EID LPN Health Assessment Complete Health Assessment Complete or Modified : Annual Health Assessment Annual Health Assessment Completed : Yes ARIANA EID LPN - 02/12/2013 15:09 CDT Nutrition Nutrition Risk Factors by History Adult : None JUANITOAZEBARIANA HUA LPN - 02/12/2013 15:09 CDT Functional Current Daily Living Assistance : ARIANA Guzman LPN - 02/12/2013 15:09 CDT Dependent Habits Tobacco Use/Currently Using : No Exposure to Tobacco Smoke : Care provider denies smoking in home Smoking Status : Former smoker JUANITOHIPOLITO ARIANA Lua LPN - 02/12/2013 15:09 CDT Tobacco Use Grid Type : Cigarettes Last Use : 1996 ARIANA EID LPN - 02/12/2013 15:09 CDT Caffeine Use Grid Caffeine Use : None ARIANA EID LPN - 02/12/2013 15:09 CDT Recreational Drug Use Grid Drug Use : None ARIANA EID LPN - 02/12/2013 15:09 CDT Psychosocial Domestic Abuse Concerns : None ARIANA EID LPN - 02/12/2013 15:09 CDT Advance Directive Advanced Directives : No ARIANA EID LPN - 02/12/2013 15:09 CDT Educ Needs Learning Style Preference Adult Grid Patient : Demonstration Family : None ARIANA EID JAMIE - 02/12/2013 15:09 CDT Source: [facility] POWERCHART Document Id: [id number] CDT!30 documented in this encounter Plan of Treatment Upcoming Encounters Date Type Specialty Care Team Description 01/24/2022 Diagnostic O[facility]ol[facility]ology [facility].D. [address] [facility] [place] [place] [phone] 01/29/2022 Office Visit Orthopedic Surgery Laurie Dumont APRN, C.N.P., D.NFarshadPFarshad [address] [facility] [place] [place] [phone] (Wo rk) documented as of this encounter Procedures Procedure Name Priority Date/Time Associated Diagnosis Comme nts DIPSTICK, U Routine 02/12/2013 3:20 PM Results f or this CDT procedure are i n the results section . documented in this encounter Results Dipstick, Urine (02/12/2013 3:20 PM CDT) [facility] Method Time Signature HXUr Color Yellow Yellow POWERCHART Appearance Clear Clear POWERCHART Glucose Negative Negative POWERCHART HXBILIRUBIN Negative Negative POWERCHART Ketones, QL(U) Negative Negative POWERCHART Specific 1.025 1.000 - POWERCHART [place], POCT, U 1.030 pH, POCT, Urine 7.0 5.0 - 8.0 POWERCHART Protein, Ur, Dip Negative Negative POWERCHART Urobilinogen 0.2 POWERCHART HXNITRITE Negative Negative POWERCHART HXBLOOD 1+ Negative POWERCHART Leukocyte Negative Negative POWERCHART Esterase Source Clean Void POWERCHART Urine Specimen (Source) Anatomical Collection Method Collection Time Re ceived Time Location / / Volume Laterality Urine 02/12/2013 3:20 PM CDT Kavon Stuart III, M.D. LAB URINE ORDERABLES Performing Organization Address City/State/ZIP Code Phon e Number POWERCHART documented in this encounter Visit Diagnoses Not on filedocumented in this encounter
--- OUTSIDE RECORDS SUMMARY | 2022-01-23 19:40 | XMS_ITS | Encounter Summary ---
:1960 Author Organization [facility] Address [address] [place] [address] Care Team Providers Name Role Phone Unavailable Primary Care Provider Unavailable Encounter Details Date Type Department Care Team Description 09/03/2012 Hospital Encounter HX [facility] Provider, Historic al Social History Tobacco Use Types Packs/Day Years [...] you attend christian or Patient refused 2021 sikhism services? 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 0 01/1804/13/2021 documented as of this encounter Plan of Treatment Upcoming Encounters Date Type Specialty Care Team Description 01/24/2022 Diagnostic Otorhinolaryngology Lara Snell Au.D. [address] [place], [place] [phone] 01/29/2022 Office Visit Orthopedic Surgery Laurie Dumont, ANA , C.N.P., D.N.P. [address] [place], [place] [phone] (Wo rk) documented as of this encounter Visit Diagnoses Not on filedocumented in this encounter
--- OUTSIDE RECORDS SUMMARY | 2022-01-23 19:40 | XMS_ITS | Encounter Summary ---
:1960 Author Organization [facility] Address [address] [place] [address] Care Team Providers Name Role Phone Unavailable Primary Care Provider Unavailable Encounter Details Date Type Department Care Team Description 03/31/2012 Hospital Encounter HX [facility] July [place], ANA, C.N.P., D. N.P. [address] [place] [address] (Wo rk) Social History Tobacco [...] you attend episcopal or Patient refused 2021 catholic services? 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 0 01/1804/13/2021 documented as of this encounter Plan of Treatment Upcoming Encounters Date Type Specialty Care Team Description 01/24/2022 Diagnostic Otorhinolaryngology Lara Snell Au.D. [address] [place], [place] [phone] 01/29/2022 Office Visit Orthopedic Surgery Laurie Dumont APRN , C.N.P., D.N.P. [address] [place], [place] [phone] (Wo rk) documented as of this encounter Visit Diagnoses Not on filedocumented in this encounter
--- OUTSIDE RECORDS SUMMARY | 2022-01-23 19:40 | XMS_ITS | Encounter Summary ---
:1960 Author Organization [facility] Address [address] [place] [address] Care Team Providers Name Role Phone Unavailable Primary Care Provider Unavailable Encounter Details Date Type Department Care Team Description 08/22/2009 Hospital Encounter HX NO MAPPING Adrián Colvin, PFarshadA.Teri C. Social History Tobacco Use Types [...] or relatives? How often do you attend islam or Patient refused 2021 lutheran services? 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 [address] [facility], [place] [phone] 01/29/2022 Office Visit Orthopedic Surgery Laurie Dumont APRN , C.N.P., D.N.P. [address] [facility], [place] [phone] (Wo rk) documented as of this encounter Visit Diagnoses Not on filedocumented in this encounter
--- OUTSIDE RECORDS SUMMARY | 2022-01-23 19:40 | XMS_ITS | Encounter Summary ---
:1960 Author Organization [facility] Address [address] [place] [address] Care Team Providers Name Role Phone Unavailable Primary Care Provider Unavailable Encounter Details Date Type Department Care Team Description 02/15/2011 Hospital Encounter HX [facility] July Arambula, ANA, C.N.P., D.N.P. [address] [place], [place] [phone] (Wo rk) Social History Tobacco Use Types [...] or relatives? How often do you attend mormon or Patient refused 2021 taoism services? 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 0 01/1804/13/2021 documented as of this encounter Miscellaneous Notes Miscellaneous - July Arambula D.N.Carlitos., C.N.P. - 02/18/2011 6:44 PM CDT Results Notification Document Contains Addenda Addendum by DEBRA BARCENAS LPN on 18 February 2011 19:14:26 CDT letter sent From: JULY ARAMBULA [facility], MANAGER [employer] To: DEBRA BARCENAS LPN Sent: 02/18/2011 18:44:55 CDT ! Show up: 02/18/2011 18:42:00 CDT Subject: Results Notification Actions: Notify patient of results Due Date/Time: 02/18/2011 18:42:00 CDT Source: [facility] POWERCHART Document Id: [id number] documented in this encounter Plan of Treatment Upcoming Encounters Date Type Specialty Care Team Description 01/24/2022 Diagnostic Otorhinolaryngology Lara Snell Au.D. [address] [facility], [place] [phone] 01/29/2022 Office Visit Orthopedic Surgery Laurie Dumont APRN , C.N.P., D.N.P. [address] [facility], [place] [phone] (Wo rk) documented as of this encounter Visit Diagnoses Not on filedocumented in this encounter
--- OUTSIDE RECORDS SUMMARY | 2022-01-23 19:40 | XMS_ITS | Encounter Summary ---
:1960 Author Organization [facility] Address [address] [place] [address] Care Team Providers Name Role Phone Unavailable Primary Care Provider Unavailable Encounter Details Date Type Department Care Team Description 09/10/2012 Hospital Encounter HX [facility] Mikey Smith III, M.D. [address] [place] [phone] (Wo rk) Social [...] you attend anglican or Patient refused 2021 synagogue services? 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 0 01/1804/13/2021 documented as of this encounter Progress Notes Harvinder Stuart M.D. - 09/10/2012 12:46 PM CDT [id number] CHIEF COMPLAINT/REASON FOR VISIT Complaints of sore throat since yesterday. HISTORY OF PRESENT ILLNESS Mr. Hernandez is a 51-year-old white male who experienced sore throat and fever that began yesterday along with all over body aches and mild headache. He did take a little bit of ibuprofen yesterday whichhelped a little but otherwise he has not taken any [id number] treatments. SYSTEMS REVIEW Pertinent positives and negative are noted above. The remainder of the complete review of systems are negative. PAST MEDICAL/SURGICAL HISTORY GERD. PHYSICAL EXAMINATION VITAL SIGNS: Temperature 38.6, pulse 88, respirations 16, blood pressure 122/82, weight 105.6 kg. GENERAL: The patient is alert and cooperative. He is in no acute distress at this time. HEENT: The left ear is normal. The right ear shows some mild effusion without loss of landmarks. Insufflation does not show movement. Nose midline with normal turbinates. Mouth - there is exudates on the posterior pharynx. Tonsils are mildly erythematous. NECK: There is positive anterior adenopathy. LUNGS: Clear to auscultation bilaterally without expiratory wheezes or rhonchi. LABORATORY: Rapid strep screen is negative for strep. IMPRESSION/REPORT/PLAN 1. Chills with fever. 2. Sore throat. PLAN: Given the patient's fever and I am going to give him a prescription for amoxicillin 500 mg by mouth 3 times a day for 10 days. I recommended symptomatic therapies. My suspicion is that he has some sort of bacterial infection given his high temperature and other symptoms. I am going to plan on seeing him back in a week for follow-up if his symptoms have not improved. His questions were answered and reassurance was given. Harvinder Stuart M.D./[facility] Electronically Signed By: HARVINDER STUART III, MD On: 09/10/2012 03:30 PM Source: [facility] MHSDOLBEYNONRADSYS Document Id: [id number] documented in this encounter Miscellaneous Notes Miscellaneous - Harvinder Stuart M.D. - 09/10/2012 1:22 PM CDT Ambulatory Depart Summary [address] [address] Visit Information Name: PILO HERNANDEZ [facility] Number: [id number] Visit Date: 09/10/2012 13:22:38 Attending Provider: HARVINDER STUART III, MD Primary Care Provider: MIR BRICEÑO [facility], SONOGRAPHER PILO HERNANDEZ has been given the following list of medications: Your Medications It is important to take your medications as directed. Use a pill box or chart to help remind you to take your medications. Please let your doctor or nurse know if you have problems taking your medications. Medication/Strength Dose Route Frequency Indications/Special Instructions/Comments amoxicillin (amoxicillin 500 mg oral tablet) 500 mg Oral three times a day for 10 Days Fever omeprazole (omeprazole 40 mg oral delayed release [...] your provider for clarification. Additional Information: Source: [facility] POWERCHART Document Id: [id number] Natali - Harvinder Stuart M.D. - 09/10/2012 1:22 PM CDT Ambulatory Patient Summary [facility] [address] [place] [address] Visit Information Name: PILO HERNANDEZ [facility] Number: [id number] Current Date: 09/10/2012 13:22:39 Physicians Attending Provider: HARVINDER STUART III, MD Primary Care Provider: MIR BRICEÑO [facility], SONOGRAPHER Your Medications Here is a list of your medications. It is important to take your medications as directed. Use a pillbox or chart to help remind you to take your medications. Please let your doctor or nurse know if you have problems taking your medications. Medication/Strength Dose Route Frequency Indications/Special Instructions/Comments amoxicillin (amoxicillin 500 mg oral tablet) 500 mg Oral three times a day for 10 Days Fever omeprazole (omeprazole 40 mg oral delayed release [...] No Appointments found Your Goals/Additional instructions: Source: [facility] GigaloCHART Document Id: [id number] Miscellaneous - Ethel Eid L.P.N. - 09/10/2012 1:01 PM CDT Adult Bright Cutter Intake/History Document Has Been Updated Adult Bright Cutter Intake/History Entered On: 09/10/2012 13:03 CDT Performed On: 09/10/2012 13:01 CDT by ETHEL EID LPN Intake Chief Complaint : c/o sore throat since yesterday. Has fever, body aches, slight headache. Temperature Core : 38.6 DegC(Converted to: 101.5 DegF) (HI) Peripheral Pulse Rate : 88 /min Respiratory Rate : 16 /min Heart Rhythm : Regular Systolic Blood Pressure : 122 mmHg Diastolic Blood Pressure : 82 mmHg NIBP Mean : 95 mmHg BP Location : Right upper extremity Blood Pressure Cuff Size : Regular Actual Weight : 105.6 kg(Converted to: 232 lb 13 oz) Weight Source : Standing scale Dosing Weight Clinic : 105.6 kg ETHEL EID LPN - 09/10/2012 13:01 CDT General Info Information Given By : Patient Languages : Occitan ETHEL EID LPN - 09/10/2012 13:01 CDT Subjective Pain Symptoms : Yes ETHEL EID LPN - 09/10/2012 13:03 CDT Pain Pain Assessment Grid Pain 1 Location : Throat Intensity : 8 ETHEL EID LPN - 09/10/2012 13:03 CDT Dependent Habits Tobacco Use/Currently Using : No Exposure to Tobacco Smoke : Care provider denies smoking in home Smoking Status : Former smoker ETHEL EID LPN - 09/10/2012 13:01 CDT Tobacco Use Grid Type : Cigarettes Last Use : 1996 ETHEL EID LPN - 09/10/2012 13:01 CDT Caffeine Use Grid Caffeine Use : None ETHEL EID LPN - 09/10/2012 13:01 CDT Recreational Drug Use Grid Drug Use : None ETHEL EID LPN - 09/10/2012 13:01 CDT Source: [facility] POWERCHART Document Id: [id number]!8 documented in this encounter Plan of Treatment Upcoming Encounters Date Type Specialty Care Team Description 01/24/2022 Diagnostic Otorhinolaryngology Lara Snell Au.D. [address] [place] [phone] 01/29/2022 Office Visit Orthopedic Surgery Laurie Dumont, ANA , C.N.P., D.N.P. [address] [facility] [place] [phone] (Wo rk) documented as of this encounter Procedures Procedure Name Priority Date/Time Associated Diagnosis Comme nts RAPID STREP A Routine 09/10/2012 1:00 PM Results for this SCREEN CDT procedure are i n the results section. RAPID STREP A Routine 09/10/2012 12:56 PM Results for this SCREEN CDT procedure are i n the results section. documented in this encounter Results Rapid Strep A Screen (09/10/2012 1:00 PM CDT) [facility] [employer] Method Time Signature HXRapid Strep POWERCHART Confirmation HXPre Negative for POWERCHART Group A Strep by culture. HXFinal Negative for POWERCHART Group A Strep by culture. Specimen Anatomical Collection Method Collection Time Receive d Time (Source) Location / / Volume Laterality Throat 09/10/2012 1:00 PM 3 1:00 CDT PM CDT Harvinder Stuart III, M.D. LAB MICROBIOLOGY - GENE RAL ORDERABLES Performing Organization Address City/State/ZIP Code Phon e Number POWERCHART Rapid Strep A Screen (09/10/2012 12:56 PM CDT) [facility] [employer] Method Time Signature HXStrep A POWERCHART Screen Rapid HXFinal Negative for POWERCHART Strep Group A by rapid screen. HXFinal Culture POWERCHART confirmation to follow. Specimen (Source) Anatomical Collection Method Collection Time Re ceived Time Location / / Volume Laterality Throat 09/10/2012 12:56 PM CDT Harvinder Stuart III, M.D. LAB MICROBIOLOGY - GENE RAL ORDERABLES Performing Organization Address City/State/ZIP Code Phon e Number POWERCHART documented in this encounter Visit Diagnoses Not on filedocumented in this encounter
--- OUTSIDE RECORDS SUMMARY | 2022-01-23 19:40 | XMS_ITS | Encounter Summary ---
:1960 Author Organization [facility] Address [address] [place] [address] Care Team Providers Name Role Phone Unavailable Primary Care Provider Unavailable Encounter Details Date Type Department Care Team Description 09/01/2009 Hospital Encounter HX [facility]PT[facility] Andrew Guzmán M.D. [address] [facility] [address] [place] [address] (Wo rk) Social History Tobacco Use Types [...] you attend yazidi or Patient refused 2021 jew services? 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 [address] [place], [place] [phone] 01/29/2022 Office Visit Orthopedic Surgery Laurie Dumont, ANA , C.N.P., D.N.P. [address] [place] [phone] (Wo rk) documented as of this encounter Visit Diagnoses Not on filedocumented in this encounter
--- OUTSIDE RECORDS SUMMARY | 2022-01-23 19:40 | XMS_ITS | Encounter Summary ---
:1960 Author Organization [facility] Address [address] [place] [address] Care Team Providers Name Role Phone Unavailable Primary Care Provider Unavailable Encounter Details Date Type Department Care Team Description 08/08/2009 Hospital Encounter HX [facility] INPT/[facility]BS[facility] José Miguel Vásquez M.D. [address] [place] [address] (Wo rk) Social History Tobacco Use Types [...] or relatives? How often do you attend mandaeism or Patient refused 2021 holiness services? 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 [address] [place], [place] [phone] 01/29/2022 Office Visit Orthopedic Surgery Laurie Dumont, ANA , C.N.P., D.N.P. [address] [place], [place] [phone] (Wo rk) documented as of this encounter Visit Diagnoses Not on filedocumented in this encounter
--- OUTSIDE RECORDS SUMMARY | 2022-01-23 19:40 | XMS_ITS | Encounter Summary ---
:1960 Author Organization [facility] Address [address] [place] [address] Care Team Providers Name Role Phone Unavailable Primary Care Provider Unavailable Encounter Details Date Type Department Care Team Description 08/10/2009 Hospital Encounter HX [facility] Lolly Shea P.A.-C. [address] [place] [phone] (Wo rk) Social History Tobacco [...] you attend confucianism or Patient refused 2021 oriental orthodox services? 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 [address] [place], [place] [phone] 01/29/2022 Office Visit Orthopedic Surgery Laurie Dumont, ANA , C.N.P., D.N.P. [address] [place], [place] [phone] (Wo rk) documented as of this encounter Visit Diagnoses Not on filedocumented in this encounter
--- OUTSIDE RECORDS SUMMARY | 2022-01-23 19:40 | XMS_ITS | Encounter Summary ---
:1960 Author Organization [facility] Address [address] [place] [address] Care Team Providers Name Role Phone Unavailable Primary Care Provider Unavailable Encounter Details Date Type Department Care Team Description 08/22/2009 Hospital Encounter [facility]X [facility] INPT/OBSRV Daphne Colvin PFarshadA.TeriC. Social History Tobacco Use Types Packs/Day Years [...] you attend yarsanism or Patient refused 2021 hinduism services? 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 [address] [facility], [place] [phone] 01/29/2022 Office Visit Orthopedic Surgery Laurie Dumont APRN C.N.P., D.N.P. [address] [facility], [place] [phone] (Wo rk) documented as of this encounter Visit Diagnoses Not on filedocumented in this encounter
--- OUTSIDE RECORDS SUMMARY | 2022-01-23 19:40 | XMS_ITS | Encounter Summary ---
:1960 Author Organization [facility] Address [address] [place] [address] Care Team Providers Name Role Phone Unavailable Primary Care Provider Unavailable Encounter Details Date Type Department Care Team Description 09/03/2012 Hospital Encounter HX NO MAPPING Luis Zuniga M.D. [address] [place], [place] [phone] (Wo rk) Social History [...] you attend amish or Patient refused 2021 christian services? 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 0 01/1804/13/2021 documented as of this encounter Plan of Treatment Upcoming Encounters Date Type Specialty Care Team Description 01/24/2022 Diagnostic Otorhinolaryngology Laar Snell Au.D. [address] [place], [place] [phone] 01/29/2022 Office Visit Orthopedic Surgery Laurie Dumont APRN , C.N.P., D.N.P. [address] [place], [place] [phone] (Wo rk) documented as of this encounter Visit Diagnoses Not on filedocumented in this encounter
--- OUTSIDE RECORDS SUMMARY | 2022-01-23 19:40 | XMS_ITS | Encounter Summary ---
:[address] [facility] Address [address] [place] [address] Care Team Providers Name Role Phone Unavailable Primary Care Provider Unavailable Encounter Details Date Type Department Care Team Description 05/02/2009 Hospital Encounter HX [facility] INPT/OBSRV Darya Mijares M.D. 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 [address] [place], [place] [phone] 01/29/2022 Office Visit Orthopedic Surgery Laurie Dumont, ANA , C.N.P., D.N.P. [address] [place] [phone] (Wo rk) documented as of this encounter Visit Diagnoses Not on filedocumented in this encounter
--- OUTSIDE RECORDS SUMMARY | 2022-01-23 19:40 | XMS_ITS | Encounter Summary ---
:1960 Author Organization [facility] Address [address] [place] [address] Care Team Providers Name Role Phone Unavailable Primary Care Provider Unavailable Encounter Details Date Type Department Care Team Description 12/12/2009 Hospital Encounter HX [facility] INPT/OBSRV Kristi Herring M.D. Social History Tobacco Use Types Packs/Day [...] you attend catholic or Patient refused 2021 mandaen services? 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 [address] [facility], [place] [phone] 01/29/2022 Office Visit Orthopedic Surgery Laurie Dumont APRN C.N.P., D.N.P. [address] [facility], [place] [phone] (Wo rk) documented as of this encounter Visit Diagnoses Not on filedocumented in this encounter
--- OUTSIDE RECORDS SUMMARY | 2022-01-23 19:40 | XMS_ITS | Encounter Summary ---
:1960 Author Organization [facility] Address [address] [place] [address] Care Team Providers Name Role Phone Unavailable Primary Care Provider Unavailable Encounter Details Date Type Department Care Team Description 07/26/2009 Hospital Encounter HX [facility] INPT/[facility]BSRV José Miguel Vásquez M.D. [address] [place] [address] (Wo rk) Social History Tobacco Use Types [...] you attend hindu or Patient refused 2021 catholic services? 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 [address] [place], [place] [phone] 01/29/2022 Office Visit Orthopedic Surgery Laurie Dumont, ANA , C.N.P., D.N.P. [address] [place], [place] [phone] (Wo rk) documented as of this encounter Visit Diagnoses Not on filedocumented in this encounter
--- OUTSIDE RECORDS SUMMARY | 2022-01-23 19:40 | XMS_ITS | Encounter Summary ---
:1960 Author Organization [facility] Address [address] [place] [address] Care Team Providers Name Role Phone Unavailable Primary Care Provider Unavailable Encounter Details Date Type Department Care Team Description 05/02/2009 Hospital Encounter HX NO MAPPING Noe Mijares M.D. 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 [address] [place], [place] [phone] 01/29/2022 Office Visit Orthopedic Surgery Laurie Dumont APRN , C.N.P., D.N.P. [address] [place], [place] [phone] (Wo rk) documented as of this encounter Visit Diagnoses Not on filedocumented in this encounter
--- OUTSIDE RECORDS SUMMARY | 2022-01-23 19:40 | XMS_ITS | Encounter Summary ---
:1960 Author Organization [facility] Address [address] [place] [address] Care Team Providers Name Role Phone Unavailable Primary Care Provider Unavailable Encounter Details Date Type Department Care Team Description 02/12/2011 Hospital Encounter HX [facility] FAMILY ME Mir Arambula, ANA, C.N.P., D. N.P. [address] [place] [address] (Wo rk) Social History Tobacco [...] you attend zoroastrianism or Patient refused 2021 cheondoism services? 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 0 01/1804/13/2021 documented as of this encounter H&P Notes Mir Arambula D.N.P., C.N.P. - 02/12/2011 12:00 AM CDT [id number] CHIEF COMPLAINT/REASON FOR VISIT DOT physical examination. HISTORY OF PRESENT ILLNESS The patient is a 50-year-old male that presents to the clinic today for his routine DOT physical examination. He does report that he does have chronic hematuria in which I will note that two years ago he was last seen by Dr. Lopez in which he did have a cystogram completed at that time. At that time per Dr. Lopez's recommendations, he indicated that if the patient continued having hematuria, follow-up evaluation through urology would be recommended with also a complete reevaluation include a cystogram completed again. The patient reports that he does not have gross hematuria to his knowledge. He also reports that he has been having a history of gastric reflux for to the past two years in which on occasion he may take Prilosec, though occasionally will take Tums. He reports that he has not had any other follow-up regarding this. He also suffers from rosacea in which he has been previously prescribed cream for by dermatology but reports that he is currently out of the cream, but is interested in a topical treatment plan that may help with the rosacea. He reports that he has not used anything else [id number] to help with the symptoms and also reports that he is aware that he is due for a routine blood screening including cholesterol and a PSA. PAST MEDICAL/SURGICAL HISTORY Reviewed. Please see chart. CURRENT MEDICATIONS Reviewed. Please see chart. ALLERGIES Reviewed. Please see chart. PHYSICAL EXAMINATION OBJECTIVE: Patient is alert/oriented x 3. HEAD: Normocephalic/atraumatic. PUPILS: [place]. OROPHARYNX: [place] and moist. TMs: Bilateral TMs are clear, bony landmarks noted and WNL. NARES: Patent, no erythema or drainage noted. NECK: No anterior/posterior lymphadenopathy noted. HEART: Regular S1, S2, no murmurs, rubs or gallops noted. LUNGS: Clear to auscultation, no prolonged expiratory phases, wheezing, rales or rhonchi noted. SKIN: Without unusual rashes or suspicious lesions GENITOURINARY: Testicles are equally descended, no masses or nodules palpated. No hernias are noted on examination. (Please see DOT form for further physical findings.) LABS: PSA, lipid panel, CBC, a compresses metabolic panel are presently pending. LABS: Urine analysis shows urine is yellow and clear, 2+ blood and trace ketones are noted. Negative protein, negative glucose, negative nitrate are noted. IMPRESSION/REPORT/PLAN 1. History of rosacea. 2. History of gastroesophageal reflux disease. 3. Chronic hematuria. 4. Routine DOT physical examination. PLAN: Discussed the findings at length with the patient. I indicated to the patient I will plan on contacting him at [phone] regarding his laboratory results. We will have him follow-up with urology for further evaluation regarding his chronic hematuria and again for an endoscopy regarding his gastroesophageal reflux disease. These have both been ordered and discussed at length with the patient. I will note risks for obstructive sleep apnea were assessed (please see EMR). Patient was also given a prescription for MetroGel to apply to the affected areas for his rosacea daily indicating if he does not have any symptom improvement, he can plan on following up as needed. A quantity of 45 grams with six refills were authorized. Patient stated he understands this plan as he denied having any other further concerns or complaints. I did put a restriction on his DOT card for six months duration as it is to on 08/13/2011, though indicated that I will renew this as long as he is following up with urology. The patient stated he understands this plan as he otherwise denied having any other further concerns or complaints. Patient ambulated out of the clinic in no acute distress. PATIENT EDUCATION: Ready to learn No apparent learning barriers were identified Learning preferences include listening Explained diagnosis and treatment plan Patient/Child/Caregiver expressed understanding of the content Mir Arambula D.N.P., F.N.P. /gretta Electronically Signed By: MIR ARAMBULA DNP, FNP On: 02/17/2011 02:02 PM Source: [facility] MHSDOLBEYNONRADSYS Document Id: [id number] documented in this encounter Miscellaneous Notes Miscellaneous - Mir Arambula D.N.P., C.N.P. - 02/12/2011 7:01 PM CDT Ambulatory Patient Summary [id number] [place] [address] Visit Information Name: HUSSEIN HERNANDEZ Current Date: 02/12/2011 19:01:47 Primary Care Provider: MIR ARAMBULA [facility], [employer] Your Medications Here is a list of your medications. It is important to take your medications as directed. Use a pillbox or chart to help remind you to take your medications. Please let your doctor or nurse know if you have problems taking your medications. Medication/Strength Dose Route Frequency Indications/Special Instructions/Comments metronidazole topical (metronidazole topical 1% gel) 1 matteo Topical once a day aspirin (aspirin 81 mg oral tablet) 1 tab(s) Oral once a day omeprazole (Prilosec 20 mg oral delayed release capsule) 1 cap(s) Oral once a day Your Allergies & Intolerances Substance Reaction Symptoms Category Comments NyQuil Drug Your Problem List Problem Status Onset [...] Test/Treatment Last Done Next Due Additional Information Screening Colonoscopy or Flex Sig or Occult Blood X3 12/12/2009 12/10/2019 Checks for signs of cancer of the colon. Lipid Panel every 5 years Age 20-75 08/29/2006 08/28/2011 Checks blood for good (HDL) and bad (LDL) cholesterol. Know your numbers, they are one indicator of your risk for heart attack and stroke. Vaccine: Flu every 1 year 02/10/2009 02/10/2010 Immunization to help prevent you from getting the flu strain expected to be a problem for that year's flu season. Vaccine: Tetanus every 10 years 11/30/2004 11/28/2014 Immunization to help prevent you from getting the serious disease Tetanus (Lockjaw). Your Upcoming Appointments Date Time Location Reason Provider No Appointments found Your Goals/Additional instructions: [facility] Document Id: [id number] Electronically signed by Conversion, [facility] Supervisor [employer] Processing [id number] at 10/20/2016 2:57 PM CDT Miscellaneous - Mir Arambula D.N.P., C.N.P. - 02/12/2011 7:01 PM CDT Ambulatory Depart Summary [address] [address] Visit Information Name: HUSSEIN HERNANDEZ Current Date: 02/12/2011 19:01:47 Primary Care Provider: MIR ARAMBULA DNP, [employer]OR TESTER HUSSEIN HERNANDEZ has been given the following list of medications: Your Medications It is important to take your medications as directed. Use a pill box or chart to help remind you to take your medications. Please let your doctor or nurse know if you have problems taking your medications. Medication/Strength Dose Route Frequency Indications/Special Instructions/Comments metronidazole topical (metronidazole topical 1% gel) 1 matteo Topical once a day aspirin (aspirin 81 mg oral tablet) 1 tab(s) Oral once a day omeprazole (Prilosec 20 mg oral delayed release capsule) 1 cap(s) Oral once a day Additional Information: Yes - Current list of reconciled medications is provided and explained to the patient and/or family, guardian/caregiver. [facility] Creation[facility]ART Document Id: [id number] Electronically signed by Conversion, [facility] Supervisor [employer] Processing [id number] at 10/20/2016 2:57 PM CDT Miscellaneous - Mir Arambula D.N.Carlitos., C.N.P. - 02/12/2011 6:54 PM CDT Obstructive Sleep Apnea Obstructive Sleep Apnea Entered On: 02/12/2011 18:56 CDT Performed On: 02/12/2011 18:54 CDT by MIR ARAMBULA DNP [facility]DO Screening Known Obstructive Sleep Apnea: No Uses Home CPAP/BiPAP: No Risk for Sleep Apnea: No MIR ARAMBULA DNP, FNP - 02/12/2011 18:54 CDT BALDO Assessment Do you have high blood pressure or have you been told to take medication for high blood pressure?: No Frequency of Snoring: Sometimes (1-2 times per month) Frequency of Gasping, Choking, Snorting: Never Neck Circumference (cm): Less than 30 Total Sleep Apnea Clinical Score: 0 Total Number of Historical Features: 0 MIR ARAMBULA DNP, FNP - 02/12/2011 18:54 CDT Source: [facility] [employer] Document Id: [id number] CDT!12 Miscellaneous - Hannah Oconnor LFarshadPFarshadN. - 02/12/2011 6:12 PM CDT Health Assessment Health Assessment Entered On: 02/12/2011 18:12 CDT Performed On: 02/12/2011 18:12 CDT by HANNAH OCONNOR LPN Nutrition Nutrition Risk Factors by History Adult: None HANNAH OCONNOR LPN - 02/12/2011 18:12 CDT Functional Current Daily Living Assistance: None HANNAH OCONNOR LPN - 02/12/2011 18:12 CDT Dependent Habits Tobacco Use/Currently Using: No Exposure to Tobacco Smoke: Care provider denies smoking in home HANNAH OCONNOR LPN - 02/12/2011 18:12 CDT Tobacco Use Grid Type: Cigarettes Last Use: 1996 HANNAH OCONNOR LPN - 02/12/2011 18:12 CDT Caffeine Use Grid Caffeine Use: None HANNAH OCONNOR LPN - 02/12/2011 18:12 CDT Recreational Drug Use Grid Drug Use: None HANNAH OCONNOR LPN - 02/12/2011 18:12 CDT Psychosocial Domestic Abuse Concerns: None HANNAH OCONNOR LPN - 02/12/2011 18:12 CDT Advance Directive Advanced Directives: No HANNAH OCONNOR LPN - 02/12/2011 18:12 CDT Educ Needs Learning Style Preference Adult Grid Patient: None Family: None HANNAH OCONNOR LPN - 02/12/2011 18:12 CDT Source: [facility] [employer] Document Id: [id number] CDT!26 Miscellaneous - Hannah Oconnor LFarshadP.NFarshad - 02/12/2011 6:06 PM CDT Adult Medical Videographer Intake/History Adult Medical Videographer Intake/History Entered On: 02/12/2011 18:12 CDT Performed On: 02/12/2011 18:06 CDT by HANNAH OCONNOR LPN Intake Chief Complaint: DOT Temperature Core: 36.6C(Converted to: 97.9DegF) Peripheral Pulse Rate: 76/min Respiratory Rate: 16/min Systolic Blood Pressure: 134mmHg Diastolic Blood Pressure: 82mmHg NIBP Mean: 99mmHg BP Location: Left upper extremity Heart Rhythm: Regular Height: 182.30cm(Converted to: 6ft 0inch(es), 71.77inch(es)) Actual Weight: 112.300kg(Converted to: 247lb 9oz) Weight Source: Standing scale Dosing Weight Clinic: 112.30kg Clinic BSA: 2.38 Body Mass Index: 33.79kg/m2 HANNAH OCONNOR LPN - 02/12/2011 18:06 CDT Subjective Pain Symptoms: No HANNAH OCONNOR LPN - 02/12/2011 18:06 CDT Dependent Habits Tobacco Use/Currently Using: No Tobacco Use/Last 12 months: No Exposure to Tobacco Smoke: Care provider denies smoking in home HANNAH OCONNOR LPN - 02/12/2011 18:06 CDT Tobacco Use Grid Type: Cigarettes Last Use: 1996 HANNAH OCONNOR LPN - 02/12/2011 18:06 CDT Alcohol Use: Yes HANNAH OCONNOR LPN - 02/12/2011 18:06 CDT Caffeine Use Grid Caffeine Use: None HANNAH OCONNOR LPN - 02/12/2011 18:06 CDT Recreational Drug Use Grid Drug Use: None HANNAH OCONNOR LPN - 02/12/2011 18:06 CDT Allergy Allergies (Active) NyQuil Estimated Onset Date: Unspecified ; Created By: HANNAH OCONNOR LPN; Reaction Status: Active ; Category: Drug ; Substance: NyQuil ; Type: Allergy ; Updated By: HANNAH OCONNOR LPN; Reviewed Date: 02/11/2011 10:38 CDT Source: [employer] Document Id: [id number] CDT!34 Miscellaneous - Hannah Oconnor L.P.N. - 02/11/2011 10:42 AM CDT Adult Medical Videographer Intake/History Adult Medical Videographer Intake/History Entered On: 02/11/2011 10:44 CDT Performed On: 02/11/2011 10:42 CDT by HANNAH OCONNOR LPN Subjective Pain Symptoms: No HANNAH OCONNOR LPN - 02/11/2011 10:42 CDT Dependent Habits Tobacco Use/Currently Using: No Tobacco Use/Last 12 months: No HANNAH OCONNOR LPN - 02/11/2011 10:42 CDT Tobacco Use Grid Type: Cigarettes Last Use: 1996 HANNAH OCONNOR LPN - 02/11/2011 10:42 CDT Allergy Allergies (Active) NyQuil Estimated Onset Date: Unspecified ; Created By: HANNAH OCONNOR LPN; Reaction Status: Active ; Category: Drug ; Substance: NyQuil ; Type: Allergy ; Updated By: HANNAH OCONNOR LPN; Reviewed Date: 02/11/2011 10:38 CDT Source: [employer] Document Id: [id number] CDT!10 documented in this encounter Plan of Treatment Upcoming Encounters Date Type Specialty Care Team Description 01/24/2022 Diagnostic Otorhinolaryngology Lara Snell Au.D. [address] [facility] [place] [phone] 01/29/2022 Office Visit Orthopedic Surgery Laurie Dumont APRN , C.N.P., D.N.P. [address] [facility] [place] [phone] (Wo rk) documented as of this encounter Visit Diagnoses Not on filedocumented in this encounter
--- OUTSIDE RECORDS SUMMARY | 2022-01-23 19:40 | XMS_ITS | Encounter Summary ---
:[address] [facility] Address [address] [place] [address] Care Team Providers Name Role Phone Unavailable Primary Care Provider Unavailable Encounter Details Date Type Department Care Team Description 12/12/2009 Hospital Encounter HX [facility] INPT/OBSRV Andrew Guzmán M.D. [address] [facility] [address] [place] [address] (Wo rk) Social History Tobacco [...] you attend uatsdin or Patient refused 2021 latter-day services? 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 [address] [place], [place] [phone] 01/29/2022 Office Visit Orthopedic Surgery Laurie Dumont, ANA , C.N.P., D.N.P. [address] [place] [phone] (Wo rk) documented as of this encounter Visit Diagnoses Not on filedocumented in this encounter
--- OUTSIDE RECORDS SUMMARY | 2022-01-23 19:40 | XMS_ITS | Encounter Summary ---
:1960 Author Organization [facility] Address [address] [place] [address] Care Team Providers Name Role Phone Unavailable Primary Care Provider Unavailable Encounter Details Date Type Department Care Team Description 02/24/2011 - Hospital Encounter HX [facility] Roel Locke, 02/27/2011 PAWAN Campbell [address] [place], [place] [address] (Wo rk) Social History Tobacco Use Types [...] or relatives? How often do you attend synagogue or Patient refused 2021 jehovah's witness services? Do you belong to any clubs or No 12/20/2021 organizations such as synagogue groups, unions, fraternal or athletic groups, or [...] at Date Recorded Male 06/23/2021 7:46 PM [employer] documented as of this encounter Medications at Time of Discharge Medication Sig Dispensed Refills Start Date End Date ASPIRIN ORAL Take 1 tablet by mouth daily. 0 01/1804/13/2021 documented as of this encounter Procedure Notes Karly Arriaza R.N. - 02/27/2011 8:42 AM CDT Preprocedure Checklist Preprocedure Checklist Entered On: 02/27/2011 8:46 CDT Performed On: 02/27/2011 8:42 CDT by KARLY ARRIAZA RN Checklist Last Fluid Intake: 02/26/2011 21:00 CDT Last Food Intake: 02/26/2011 21:00 CDT Last Void: 02/26/2011 5:00 CDT KARLY ARRIAZA RN - 02/27/2011 8:42 CDT Surgery Prep Grid Contacts/Glasses Removed: NA Dentures Removed: NA Hairpins/Hairpiecies Removed: NA Hearing Aid Removed: NA Home Prep Complete: NA Jewelry/Piercing Removed: NA Makeup/Nail Armenian Removed: NA Oral Hygiene: Yes Preop Scrub AM of Surgery: NA Preop Scrub Night Prior to Surgery: NA Prosthesis Removed: NA Surgical Prep Verified: NA Tampon Removed: NA Wearing Patient Gown: Yes KARLY ARRIAZA RN - 02/27/2011 8:42 CDT Patient Rights Grid Blood Consent Signed: NA Surgical/Procedure Consent Signed: Yes KARLY ARRIAZA RN - 02/27/2011 8:42 CDT Family Location: [id number] [place] KARLY ARRIAZA RN - 02/27/2011 8:42 CDT Checklist II Patient Safety Grid Allergy Band on and Verified: Yes Anesthesia Consult: Yes Band on for Limb Alert: NA Blood Band on and Verified: NA Current ECG in Medical Record: NA Current H&P in Medical Record: NA Implants Verified: NA Medication Reconciliation on Chart: Yes Pacemaker/AICD Verified: NA ID Band on and Verified: Yes Preop Medications Sent With Patient: NA Relevant Images in Medical Record: NA Review of Labs: NA Procedure/Site Verified by Patient/Family: Yes Procedure/Site Verified by RN: Yes Procedure/Site Verified by Physician: Yes Type & Screen/Type & Cross Completed: NA KARLY ARRIAZA RN - 02/27/2011 8:42 CDT RN Who Verified Site: KARLY ARRIAZA RN Physician Who Verified Site: ROEL TOMPKINS MD, ANNIE E RN - 02/27/2011 8:42 CDT BALDO Screening Known Obstructive Sleep Apnea: No KARLY ARRIAZA RN - 02/27/2011 8:42 CDT BALDO Assessment Do you have high blood pressure or have you been told to take medication for high blood pressure?: Yes Frequency of Snoring: Rarely (1-2 times per year) Frequency of Gasping, Choking, Snorting: Rarely (1-2 times per year) Neck Circumference (cm): 40/41 Total Sleep Apnea Clinical Score: 10 Total Number of Historical Features: 0 KARLY ARRIAZA RN - 02/27/2011 8:42 CDT Valuables/Belongings Valuables/Belongings Grid Valuables at Bedside Clothes, Patient Valuables: Pants, Shirt, Shoes Electronic Devices: None Jewelry: None Monetary Items: None Personal Devices: None KARLY ARRIAZA RN - 02/27/2011 8:42 CDT Education Preprocedure Education Grid Procedure Type: EGD Education Topics: Plan of care Individuals Taught: Patient Barriers to Learning: None evident Teaching Method: Explanation Teaching Evaluation: Verbalizes understanding KARLY ARRIAZA RN - 02/27/2011 8:42 CDT Preop Holding Mode of Arrival: Ambulatory Preoperative Orders Complete: Yes KARLY ARRIAZA RN - 02/27/2011 8:42 CDT Advance Directive Advanced Directives: No KARLY ARRIAZA RN - 02/27/2011 8:42 CDT Vital Signs Temperature Core: 36.0C(Converted to: 96.8DegF) (LOW) Peripheral Pulse Rate: 67/min Respiratory Rate: 18/min Systolic Blood Pressure: 139mmHg Diastolic Blood Pressure: 86mmHg NIBP Mean: 104mmHg BP Location: Left upper extremity SpO2: 97% KARLY ARRIAZA RN - 02/27/2011 8:42 CDT Allergy Allergies (Active) NyQuil Estimated Onset Date: Unspecified ; Created By: CHRISTIAN WOODS LPN; Reaction Status: Active ; Category: Drug ; Substance: NyQuil ; Type: Allergy ; Updated By: CHRISTIAN WOODS LPN; Reviewed Date: 02/12/2011 18:13 CDT Preprocedural Pause Correct Patient Identity: Patient verbalizes self Correct Procedure Site and Side: EGD Correct Procedure Site/Side Verified By: Patient/responsible constitution party, Nurse, Site Marking: N/A Pre-Procedure Pause Verbal Confirm. of: Procedure, Site, Side, Patient ID KARLY ARRIAZA RN - 02/27/2011 8:42 CDT Source: [employer] Document Id: [id number] CDT!91 documented in this encounter Nursing Notes Karly Arriaza R.N. - 02/27/2011 8:47 AM CDT Day Surgery Admission History/Asmt Adult Day Surgery Admission History/Asmt Adult Entered On: 02/27/2011 8:50 CDT Performed On: 02/27/2011 8:47 CDT by KARLY ARRIAZA RN General Info Mode of Arrival: Ambulatory Accompanied By: Alone Chief Complaint: heartburn Preferred Communication Mode: Verbal Information Given By: Patient Languages: Hebrew KARLY ARRIAZA RN - 02/27/2011 8:47 CDT Allergy Allergies (Active) NyQuil Estimated Onset Date: Unspecified ; Created By: CHRISTINA WOODS LPN; Reaction Status: Active ; Category: Drug ; Substance: NyQuil ; Type: Allergy ; Updated By: CHRISTIAN WOODS LPN; Reviewed Date: 02/12/2011 18:13 CDT Anesth/Transfusion Anesthesia/Transfusions: Prior anesthesia KARLY ARRIAZA RN - 02/27/2011 8:47 CDT ID Screen Drug Resistant Organism: No KARLY ARRIAZA RN - 02/27/2011 8:47 CDT Nutrition Nutrition Risk Factors by History Adult: None Home Diet: Regular Feeding Ability: Complete independence Eating Difficulties: None Appetite: Good KARLY ARRIAZA RN - 02/27/2011 8:47 CDT Home Environment Current Daily Living Assistance: None Living Situation: Home with family [facility] Equipment: None Sensory Deficits: None Mobility Assistance Prior to Admission: Independent Current Home Treatments: None Professional Skilled Services: None Special Services and Community Resources: None KARLY ARRIAZA RN - 02/27/2011 8:47 CDT Dependent Habits Tobacco Use/Currently Using: No Exposure to Tobacco Smoke: Care provider denies smoking in home KARLY ARRIAZA RN - 02/27/2011 8:47 CDT Tobacco Use Grid Type: Cigarettes Last Use: 1996 KARLY ARRIAZA RN - 02/27/2011 8:47 CDT Caffeine Use Grid Caffeine Use: None KARLY ARRIAZA RN - 02/27/2011 8:47 CDT Recreational Drug Use Grid Drug Use: None KARLY ARRIAZA RN - 02/27/2011 8:47 CDT Psychosocial Adult Domestic Abuse Concerns: None Concerns About Family Members at Home: No Emotional Support Available: No KARLY ARRIAZA RN - 02/27/2011 8:47 CDT Advance Directive Advanced Directives: No KARLY ARRIAZA RN - 02/27/2011 8:47 CDT Educ Needs Patient/Family Education Needs: Other: EGD KARLY ARRIAZA RN - 02/27/2011 8:47 CDT Learning Style Preference Adult Grid Patient: Verbal explanation Family: Verbal explanation KARLY ARRIAZA RN - 02/27/2011 8:47 CDT Education Preprocedure Education Grid Procedure Type: EGD Education Topics: Anesthesia/Sedation Individuals Taught: Patient Barriers to Learning: None evident Teaching Method: Explanation Teaching Evaluation: Verbalizes understanding KARLY ARRIAZA RN - 02/27/2011 8:47 CDT Outpatient Assessment Procedural Respiratory: Respirations unlabored Procedural Cardiovascular: Heart rhythm regular Procedural Neurological: Oriented x 3 Procedural Integumentary: Skin integrity intact Procedural Musculoskeletal: Activity tolerance without distress KARLY ARRIAZA RN - 02/27/2011 8:47 CDT Psycho/Emotional Pain Symptoms: No KARLY ARRIAZA RN - 02/27/2011 8:47 CDT Peripheral IV Peripheral IV Assess/Intervention Grid Peripheral IV #1 IV Activity: Start Number of Attempts: 1 Date of Insertion: 02/27/2011 CDT IV Site: Hand Laterality: Left Catheter Size: 18 KARLY ARRIAZA RN - 02/27/2011 8:47 CDT Carlos Sensory Perception Carlos: No impairment Moisture Carlos: Occasionally moist Activity Carlos: Walks occasionally Mobility Carlos: Slightly limited Nutrition Carlos: Adequate Friction and Shear Carlos: No apparent problem Carlos Score: 19 KARLY ARRIAZA RN - 02/27/2011 8:47 CDT Hendrich II Fall Risk Confusion/Disorientation Hendrich: No Depression Fall Risk Hendrich: No Altered Elimination Fall Risk Hendrich: No Dizziness/Vertigo Fall Risk Hendrich: No Gender, Male Fall Risk Hendrich: Yes Prescribed Antiepileptics Hendrich: No Prescribed Benzodiazepines Hendrich: No Rising From Chair Fall Risk Hendrich: Able to rise in a single movement, no loss of balance with steps Fall Risk Score Hendrich II: 1 KARLY ARRIAZA RN - 02/27/2011 8:47 CDT DC Needs Anticipated Discharge Date: 02/27/2011 CDT Discharge To, Anticipated: Home with family [facility] Treatments, Anticipated: None Home Equipment, Anticipated: None Professional Skilled Services, Anticipated: None Special Serv & Comm Res, Anticipated: None KARLY ARRIAZA RN - 02/27/2011 8:47 CDT FLACC Face FLACC: No particular expression or smile Legs FLACC: Normal position or relaxed Activity FLACC: Lying quietly, normal position, moves easily Cry FLACC: No cry, awake or asleep Consolabillity FLACC: Content, relaxed FLACC Pain Scale Score: 0 KARLY ARRIAZA RN - 02/27/2011 8:47 CDT Integumentary Integumentary Patient Stated Symptoms: None Skin Turgor: Elastic Skin Integrity: Not intact Mucous Membrane Color: [place] Mucous Membrane Description: Moist Skin Color: Normal for ethnicity Skin Description: Moist Skin Temperature: Warm KARLY ARRIAZA RN - 02/27/2011 8:47 CDT Source: [employer] Document Id: [id number] CDT![id number] documented in this encounter OR Notes Op Note - Roel Tompkins M.D. - 02/27/2011 12:00 AM CDT [id number] Preoperative Diagnosis: Refractory GERD. Postoperative Diagnosis: Esophagitis. Procedure Performed: EGD with biopsies. Surgeon: Dr. Roel Tompkins. Anesthesia: MAC. Indications: Whdam[age]ioe-el[age]-old male with GERD, sometimes breaking through on his medications. He does not have dysphagia. He was referred for upper endoscopy. A discussion was held with the patient regarding the details of his diagnosis and the risks, benefits and alternatives to upper endoscopy with the possibility of biopsies. He wished to proceed. Details of Procedure: After appropriately identifying the patient and the procedure he was brought to the endoscopy suite, placed in a lawn chair position and a time out was conducted. He was thereafter induced under deep sedation by the care director. The video gastroscope was inserted and advanced through the esophagus into the stomach. Cold biopsy forceps were used to obtain samples for JEANETTE testing. The scope was advanced into the duodenum. D3 was reached. The scope was withdrawn slowly and circumferentially visualizing the mucosa on the way out. A retroflexed view was obtained on the incisura and cardia. The scope was straightened, air was aspirated out of the stomach, we withdrew through the esophagus, obtained biopsies in the distal esophagus. The scope was withdrawn slowly through the esophagus and then removed. The patient tolerated the procedure well. Findings: 1) The duodenum was normal as visualized. 2) The stomach was grossly normal. 3) A 3-centimeter hiatal hernia. The diaphragmatic pinch appeared to be around 44 to 45-cm with the Z-Line around 41 to 42 centimeters. 4) Irregular squamocolumnar junction with one tongue of either inflammation or early Wilson's change above the Z-Line. Biopsies were obtained. It was less than 2cm in length. 5) Otherwise, normal esophagus. Assessment & Plan 1) Patient was instructed on correct timing of his Proton Pump Inhibitors. We will follow-up with him when the results are available. Roel Tompkins M.D. /vikki CC: Mir Briceño D.N.P., F.N.P. Electronically Signed By: ROEL TOMPKINS MD On: 03/03/2011 05:07 PM Modified by and Electronically Signed by: ROEL TOMPKINS MD On: 03/03/2011 05:07 PM Source: [facility] MHSDOLBEYNONNIKOLASSYS Document Id: [id number] documented in this encounter Miscellaneous Notes Miscellaneous - Roel Tompkins M.D. - 03/05/2011 8:14 PM CDT Results Notification From: ROEL TOMPKINS MD To: KARLY ARRIAZA Sent: 03/05/2011 20:14:50 CDT ! Show up: 03/05/2011 20:12:00 CDT Subject: Results Notification Actions: Notify patient of results Due Date/Time: 03/05/2011 20:12:00 CDT Source: [facility] [employer] Document Id: [id number] Electronically signed by [facility] Health Information Management Director [id number] at 10/20/2016 5:23 PM CDT Miscellaneous - Karly Arriaza, R.N. - 02/27/2011 10:34 AM CDT Ambulatory Patient Summary [address] [address] Visit Information Name: HUSSEIN WHITTAKER Current Date: 02/27/2011 10:34:14 Primary Care Provider: MIR BRICEÑO [facility], CRISIS WORKER Your Medications Here is a list of [...] empty stomach, then eat 45 minutes later metronidazole topical (metronidazole topical 1% gel) 1 [...] Upcoming Appointments Date Time Location Reason Provider 04/15/2011 14:45 [facility] chronic hematuria, was evaluated by josefina 2 years ago, per josefina due again. Josefina CERNA, Lester Lua Your Goals/Additional instructions: Source: [facility] POWERCHART Document Id: [id number] Electronically signed by [facility] Health Information Management Director [id number] at 10/20/2016 5:23 PM CDT Miscellaneous - Karly Arriaza RFarshadN. - 02/27/2011 10:34 AM CDT Ambulatory Depart Summary [id number] [place] [address] Visit Information Name: HUSSEIN WHITTAKER Current Date: 02/27/2011 10:34:13 Primary Care Provider: MIR BRICEÑO [facility], CRISIS WORKER HUSSEIN WHITTAKER has been given the following [...] empty stomach, then eat 45 minutes later metronidazole topical (metronidazole topical 1% gel) 1 matteo Topical once a day aspirin (aspirin 81 mg oral tablet) 1 tab(s) Oral once a day omeprazole (Prilosec 20 mg oral delayed release capsule) 1 cap(s) Oral once a day Additional Information: Source: [facility] POWERCHART Document Id: [id number] Electronically signed by [facility] Health Information Management Director [id number] at 10/20/2016 5:23 PM CDT Miscellaneous - Karly Arriaza R.N. - 02/27/2011 10:12 AM CDT Adult Postprocedure Assessment Adult Postprocedure Assessment Entered On: 02/27/2011 10:22 CDT Performed On: 02/27/2011 10:12 CDT by KARLY ARRIAZA RN Vital Signs Peripheral Pulse Rate: 70/min Respiratory Rate: 16/min Systolic Blood Pressure: 122mmHg Diastolic Blood Pressure: 78mmHg NIBP Mean: 93mmHg BP Location: Left upper extremity SpO2: 97% Oxygen Saturation Monitoring Frequency: Continuous Oxygen Therapy: Room air KARLY ARRIAZA RN - 02/27/2011 10:12 CDT General Level of Consciousness: Alert Orientation: Oriented x 3 Skin Color: Normal for ethnicity Skin Description: Moist Skin Temperature: Warm Pain Symptoms: No KARLY ARRIAZA RN - 02/27/2011 10:12 CDT FLACC Face FLACC: No particular expression or smile Legs FLACC: Normal position or relaxed Activity FLACC: Lying quietly, normal position, moves easily Cry FLACC: No cry, awake or asleep Consolabillity FLACC: Content, relaxed FLACC Pain Scale Score: 0 KARLY ARRIAZA RN - 02/27/2011 10:12 CDT Cardiovascular Heart Rhythm: Regular Nail Bed Color: [place] Edema: None KARLY ARRIAZA RN - 02/27/2011 10:12 CDT Respiratory Anesthesia Type: MAC Airway Type: None Respiratory Pattern: Regular Respirations: Unlabored All Lobes Breath Sounds: Clear KARLY ARRIAZA RN - 02/27/2011 10:12 CDT GI/ Nausea Symptoms: No Passing Flatus: No KARLY ARRIAZA RN - 02/27/2011 10:12 CDT Integumentary Integumentary Patient Stated Symptoms: None Skin Turgor: Elastic Skin Integrity: Intact Mucous Membrane Color: [place] Mucous Membrane Description: Moist Skin Color: Normal for ethnicity Skin Description: Moist Skin Temperature: Warm KARLY ARRIAZA RN - 02/27/2011 10:12 CDT Peripheral IV Peripheral IV Assess/Intervention Grid Peripheral IV #1 Peripheral IV #2 IV Activity: Start Discontinue Number of Attempts: 1 1 Date of Insertion: 02/27/2011 CDT 02/27/2011 CDT IV Site: Hand Hand Laterality: Left Left Catheter Size: 18 18 KARLY ARRIAZA RN - 02/27/2011 10:12 CDT KARLY ARRIAZA RN - 02/27/2011 10:12 CDT I&O Oral Intake: 120.000mL Other Intake: 200.000mL KARLY ARRIAZA RN - 02/27/2011 10:12 CDT Nutrition Breakfast: 100% KARLY ARRIAZA RN - 02/27/2011 10:12 CDT Neurologic Swallowing Difficulty/Aspiration Risk: None KARLY ARRIAZA RN - 02/27/2011 10:12 CDT Modified Jessica Activity: Moves 4 extremities voluntarily or on command Respiratory: Able to deep breathe and cough freely Circulation: BP +/- 20% of preprocedural level or not unusually high or low Consciousness: Fully awake O2 Saturation: O2 SAT at preprocedural level Jessica l Score: 10 KARLY ARRIAZA RN - 02/27/2011 10:12 CDT PARSAP Activity Status: Moves 4 extremities voluntarily or on command Dressing: Dry and clean Respiratory Component: Able to deep breathe and cough freely Pain: Pain free Circulation Component: BP 20% of preanesthetic level Ambulation: Able to stand up and walk straight Consciousness: Fully awake Fasting and Feeding: Able to drink fluids Oxygen Saturation - Sedation: Can maintain > 92% on room air Urine Output, PARSAP: Has voided PARSAP Score: 20 KARLY ARRIAZA RN - 02/27/2011 10:12 CDT Duckworth Duckworth Agitation Sedation Scale (RASS): Alert and calm RASS Score: 0 KARLY ARRIAZA RN - 02/27/2011 10:12 CDT Carlos Sensory Perception Carlos: No impairment Moisture Carlos: Rarely moist Activity Carlos: Walks frequently Mobility Carlos: No limitations Nutrition Carlos: Adequate Friction and Shear Carlos: No apparent problem Carlos Score: 22 KARLY ARRIAZA RN - 02/27/2011 10:12 CDT Hendrich II Fall Risk Confusion/Disorientation Hendrich: No Depression Fall Risk Hendrich: No Altered Elimination Fall Risk Hendrich: No Dizziness/Vertigo Fall Risk Hendrich: No Gender, Male Fall Risk Hendrich: Yes Prescribed Antiepileptics Hendrich: No Prescribed Benzodiazepines Hendrich: No Rising From Chair Fall Risk Hendrich: Able to rise in a single movement, no loss of balance with steps Fall Risk Score Hendrich II: 1 KARLY ARRIAZA RN - 02/27/2011 10:12 CDT Education General Patient Education [employer] Topics: Discharge instructions/Medication list Individuals Taught: Patient Barriers to Learning: None evident Teaching Method: Explanation Teaching Evaluation: Verbalizes understanding KARLY ARRIAZA RN - 02/27/2011 10:12 CDT Source: [employer] Document Id: [id number] CDT!118 Miscellaneous - Karly Arriaza, R.N. - 02/27/2011 9:52 AM CDT Adult Postprocedure Assessment Adult Postprocedure Assessment Entered On: 02/27/2011 9:55 CDT Performed On: 02/27/2011 9:52 CDT by KARLY ARRIAZA RN Vital Signs Temperature Core: 36.0C(Converted to: 96.8DegF) (LOW) Peripheral Pulse Rate: 77/min Respiratory Rate: 16/min Systolic Blood Pressure: 147mmHg (HI) Diastolic Blood Pressure: 104mmHg (>HHI) NIBP Mean: 118mmHg BP Location: Left upper extremity Oxygen Saturation Monitoring Frequency: Continuous Oxygen Flow Rate: 2.000L/min Oxygen Therapy: Nasal Cannula KARLY ARRIAZA RN - 02/27/2011 9:52 CDT General Level of Consciousness: Alert Orientation: Oriented x 3 Skin Color: Normal for ethnicity Skin Description: Moist Skin Temperature: Warm Pain Symptoms: No KARLY ARRIAZA RN - 02/27/2011 9:52 CDT FLACC Face FLACC: No particular expression or smile Legs FLACC: Normal position or relaxed Activity FLACC: Lying quietly, normal position, moves easily Cry FLACC: No cry, awake or asleep Consolabillity FLACC: Content, relaxed FLACC Pain Scale Score: 0 KARLY ARRIAZA RN - 02/27/2011 9:52 CDT Cardiovascular Heart Rhythm: Regular Nail Bed Color: [place] Edema: None Capillary Refill: Less than 2 seconds KARLY ARRIAZA RN - 02/27/2011 9:52 CDT Respiratory Anesthesia Type: MAC Airway Type: None Respiratory Pattern: Regular Respirations: Unlabored All Lobes Breath Sounds: Clear KARLY ARRIAZA RN - 02/27/2011 9:52 CDT GI/ Nausea Symptoms: No Passing Flatus: No KARLY ARRIAZA RN - 02/27/2011 9:52 CDT Integumentary Integumentary Patient Stated Symptoms: None Skin Integrity: Not intact Mucous Membrane Color: [place] Mucous Membrane Description: Moist Skin Color: Normal for ethnicity Skin Description: Moist Skin Temperature: Warm KARLY ARRIAZA RN - 02/27/2011 9:52 CDT Peripheral IV Peripheral IV Assess/Intervention Grid Peripheral IV #1 IV Activity: Start Number of Attempts: 1 Date of Insertion: 02/27/2011 CDT IV Site: Hand Laterality: Left Catheter Size: 18 KARLY ARRIAZA RN - 02/27/2011 9:52 CDT I&O Other Intake: 600.000mL KARLY ARRIAZA RN - 02/27/2011 9:52 CDT Nutrition Lunch: 0% KARLY ARRIAZA RN - 02/27/2011 9:52 CDT Neurologic Swallowing Difficulty/Aspiration Risk: None KARLY ARRIAZA RN - 02/27/2011 9:52 CDT Modified Jessica Activity: Moves 4 extremities voluntarily or on command Respiratory: Able to deep breathe and cough freely Circulation: BP +/- 20% of preprocedural level or not unusually high or low Consciousness: Fully awake O2 Saturation: O2 SAT at preprocedural level Jessica l Score: 10 KARLY ARRIAZA RN - 02/27/2011 9:52 CDT PARSAP Activity Status: Moves 4 extremities voluntarily or on command Dressing: None Respiratory Component: Able to deep breathe and cough freely Pain: Pain free Circulation Component: BP 20% of preanesthetic level Consciousness: Fully awake Oxygen Saturation - Sedation: Can maintain > 92% on room air KARLY ARRIAZA RN - 02/27/2011 9:52 CDT Duckworth [employer]ht Agitation Sedation Scale (RASS): Alert and calm RASS Score: 0 KARLY ARRIAZA RN - 02/27/2011 9:52 CDT Carlos Sensory Perception Carlos: No impairment Moisture Carlos: Rarely moist Activity Carlos: Walks frequently Mobility Carlos: No limitations Nutrition Carlos: Adequate Friction and Shear Carlos: No apparent problem Carlos Score: 22 KARLY ARRIAZA RN - 02/27/2011 9:52 CDT Hendrich II Fall Risk Confusion/Disorientation Hendrich: No Depression Fall Risk Hendrich: No Altered Elimination Fall Risk Hendrich: No Dizziness/Vertigo Fall Risk Hendrich: No Gender, Male Fall Risk Hendrich: Yes Prescribed Antiepileptics Hendrich: No Prescribed Benzodiazepines Hendrich: No Rising From Chair Fall Risk Hendrich: Unable to rise without assistance Fall Risk Score Hendrich II: 5 KARLY ARRIAZA RN - 02/27/2011 9:52 CDT Source: [employer] Document Id: [id number] CDT!99 documented in this encounter Plan of Treatment Upcoming Encounters Date Type Specialty Care Team Description 01/24/2022 Diagnostic Otorhinolaryngology Lara Snell Au.D. [address] [place], [place] [phone] 01/29/2022 Office Visit Orthopedic Surgery Laurie Dumont APRN , C.N.P., D.N.P. [address] [place], [place] [phone] (Wo rk) documented as of this encounter Procedures Procedure Name Priority Date/Time Associated Diagnosis Comme nts SURG PATH, LEVEL Routine 02/27/2011 9:40 AM Resul for this , WET -MESA CDT procedure ar e in 5206 the results section. SURGICAL PATHOLOGY Routine 02/27/2011 9:40 AM Res ults for this CDT procedure are i n the results section. documented in this encounter Results Pathology Surgical Pathology, MCR (02/27/2011 9:40 AM CDT) [facility] Time Signature HXSurg IV [id number] POWERCHART [facility] HXSurg IV See Comment POWERCHART [facility] Comment: RESULT: Roel Tompkins M.D. HXSurg IV [facility] See Comment POWERCHA RT Comment: [id number] [place] [address] SLIDE DISPOSITION: HXSurg IV [facility] See Comment POWER CHART Comment: [id number] A1 A. ?? Received in formalin, labeled with the patient's name and and lab eled as distal esophageal biopsy, are three pale dukes-translucent irregular soft tissues, ranging from 0.3-0.5 cm in greatest dime nsion. The specimens are submitted en toto in cassette A1. [place] d by DIMITRI. Part A: ??Esophagus 1 Distal esophageal biopsy XRSR Path HXSurg [facility] See Comment POWER CHART Comment: A. ??Esophagus, distal, biopsy: ??Squamo us esophageal mucosa with occasional eosinophils, consistent with reflux. [facility] See Comment POWER CHART Comment: RESULT: 03/01/2011 13:48 Interpreted by: Terese Benz M.D. Report electronically signed by Terese andre M.D. Transcribed by: [email or web address] 03/01/2011 11:58:4 8 Test Performed by: [facility] Dpt of Lab Med and Pathology [address] [place] [address] Negotiator: Jimi ludwig III, M.D. Specimen (Source) Anatomical Collection Method Collection Time Re ceived Time Location / / Volume Laterality Tissue 02/27/2011 9:40 AM CDT Roel Tompikns M.D. LAB SURG PATH ORDERABLES Performing Organization Address City/State/ZIP Code Phon e Number POWERCHART HX Surg Path, Level Vi, Wet [facility] 3054 (02/27/2011 9:40 AM CDT) Patholo gist Method Time Signature HX Surg [id number] POWERCHART [facility] HX Surg See Comment POWERCHART [facility] Comment: RESULT: Roel Tompkins M.D. HX Surg [facility] See Comment POWERCH ART Comment: [facility] [address] [place] [address] SLIDE DISPOSITION: HX Surg [facility] See Comment BERNARD RCHART Comment: [id number] A1 A. ?? Received in formalin, labeled with the patient's name and and lab eled as distal esophageal biopsy, are three pale dukes-translucent irregular soft tissues, ranging from 0.3-0.5 cm in greatest dime nsion. The specimens are submitted en toto in cassette A1. [place]rosse d by DIMITRI. Part A: ??Esophagus 1 Distal esophageal biopsy XRSR Path HX Surg [facility] See Comment BERNARD RCHART Comment: A. ??Esophagus, distal, biopsy: ??Squamo us esophageal mucosa with occasional eosinophils, consistent with reflux. Signing Pathologist: See Comment POWERCH ART Comment: RESULT: 03/01/2011 13:48 Interpreted by: Terese Benz M.D. Report electronically signed by Terese andre M.D. Transcribed by: [email or web address] 03/01/2011 11:58:4 8 Test Performed by: [facility] Dpt of Lab Med and Pathology [address] [place] [address] Negotiator: Jimi ludwig III, M.D. Test Performed by: [facility] Dpt of Lab Med and Pathology [address] [place] [address] Negotiator: Jimi ludwig III, M.D. Specimen Anatomical Collection Method Collection Time Receive d Time (Source) Location / / Volume Laterality Tissue 02/27/2011 9:40 AM 1 6:20 CDT AM CDT Historical Provider LAB HISTORICAL ORDERS Performing Organization Address City/State/ZIP Code Phon e Number POWERCHART documented in this encounter Visit Diagnoses Not on filedocumented in this encounter
--- OUTSIDE RECORDS SUMMARY | 2022-01-23 19:40 | XMS_ITS | Encounter Summary ---
:1960 Author Organization [facility] Address [address] [place] [address] Care Team Providers Name Role Phone Unavailable Primary Care Provider Unavailable Encounter Details Date Type Department Care Team Description 07/22/2011 Hospital Encounter [facility] Roger Lopez M.D. [address] [place], [place] [address] (Wo rk) Social History Tobacco Use Types [...] you attend sabianist or Patient refused 2021 scientology services? 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 0 01/1804/13/2021 documented as of this encounter Plan of Treatment Upcoming Encounters Date Type Specialty Care Team Description 01/24/2022 Diagnostic Otorhinolaryngology Lara Snell Au.D. [address] [place], [place] [phone] 01/29/2022 Office Visit Orthopedic Surgery Laurie Dumont, ANA , C.N.P., D.N.P. [address] [place], [place] [phone] (Wo rk) documented as of this encounter Procedures Procedure Name Priority Date/Time Associated Comments Diagnosis BUN (BLOOD UREA Routine 07/22/2011 12:45 PM Resul ts for this NITROGEN), S/P SHELLFISH SORTER procedure are in the results section. CREATININE WITH Routine 07/22/2011 12:45 PM Resul ts for this EGFR, S/P SHELLFISH SORTER procedure are i n the results section. documented in this encounter Results (ABNORMAL) Creatinine with eGFR (07/22/2011 12:45 PM SHELLFISH SORTER) athologist Signature Creatinine 0.94 0.60 - POWERCHART 1.30 MGDL HXeGFR (MDRD) >60 (H) <=61 POWERCHART [id number] Comment: A GFR of <60 mL/min is indicative of chr onic kidney disease. (MDRD calculation valid on patients 18 - 70 years.) eGFR Black/ >60 MLMIN PO WERCHART Specimen (Source) Anatomical Collection Method Collection Time Re ceived Time Location / / Volume Laterality Blood 07/22/2011 12:45 PM SHELLFISH SORTER Lester Lopez M.D. LAB BLOOD ADD-ON Performing Organization Address City/State/ZIP Code Phon e Number POWERCHART (ABNORMAL) BUN (Blood Urea Nitrogen) (07/22/2011 12:45 PM SHELLFISH SORTER) athologist Signature BUN (Blood Urea 19 (H) 7 - 18 POWERCHART Nitrogen), S MGDL Specimen (Source) Anatomical Collection Method Collection Time Re ceived Time Location / / Volume Laterality Blood 07/22/2011 12:45 PM SHELLFISH SORTER Lester Lopez M.D. LAB BLOOD ADD-ON Performing Organization Address City/State/ZIP Code Phon e Number POWERCHART documented in this encounter Visit Diagnoses Not on filedocumented in this encounter
--- OUTSIDE RECORDS SUMMARY | 2022-01-23 19:40 | XMS_ITS | Encounter Summary ---
:1960 Author Organization [facility] Address [address] [place] [address] Care Team Providers Name Role Phone Unavailable Primary Care Provider Unavailable Encounter Details Date Type Department Care Team Description 07/22/2011 Hospital Encounter [facility] Stephanie Lopez M.D. [address] [place], [place] [address] (Wo rk) Social History Tobacco Use Types [...] you attend orthodoxy or Patient refused 2021 amish services? Do [...] or slept in a fdc (including now)? 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 0 01/1804/13/2021 documented as of this encounter Procedure Notes Janis Pelaez RFarshadN. - 07/22/2011 1:29 PM CST Peripheral IV Peripheral IV Entered On: 07/22/2011 13:30 MEAT CARRIER Performed On: 07/22/2011 13:29 MEAT CARRIER by JANIS PELAEZ RN Peripheral IV Peripheral IV Assess/Intervention Grid Peripheral IV #1 IV Activity : Start Number of Attempts : 1 Date of Insertion : 07/22/2011 MEAT CARRIER IV Site : Antecubital Laterality : Right Catheter Size : 18 Catheter Type : Protective Site Condition : No complications Drainage Description : None Infiltration Score : 0 Phlebitis Score : 0 JANIS PELAEZ RN - 07/22/2011 13:29 MEAT CARRIER Source: [email or web address] Document Id: [id number] MEAT CARRIER!15 CARRIER documented in this encounter Plan of Treatment Upcoming Encounters Date Type Specialty Care Team Description 01/24/2022 Diagnostic Otorhinolaryngology Lara Snell Au.D. [address] [place], [place] [phone] 01/29/2022 Office Visit Orthopedic Surgery Laurie Dumont APRN , C.N.P., D.N.P. [address] [place], [place] [phone] (Wo rk) documented as of this encounter Visit Diagnoses Not on filedocumented in this encounter
--- OUTSIDE RECORDS SUMMARY | 2022-01-23 19:40 | XMS_ITS | Encounter Summary ---
:1960 Author Organization [facility] Address [address] [place] [address] Care Team Providers Name Role Phone Unavailable Primary Care Provider Unavailable Encounter Details Date Type Department Care Team Description 04/01/2011 Hospital Encounter [facility] Roger Giraldo M.D. [address] , [address] [place], [place] [address] (Wo rk) Social History Tobacco Use Types [...] you attend sikhism or Patient refused 2021 scientology services? 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 0 01/1804/13/2021 documented as of this encounter Miscellaneous Notes Miscellaneous - Roxy Shea R.N. - 06/25/2011 1:43 PM CST Ambulatory Patient Summary [id number] [place] [address] Visit Information Name: PILO HERNANDEZ Current Date: 06/25/2011 13:43:32 Primary Care Provider: MIR BRICEÑO [facility], LOCOMOTIVE ELECTRICIAN Your Medications Here is a list of [...] Additional Information Health Assessment every 1 year 06/25/2011 Screening Colonoscopy or Flex Sig or Occult [...] No Appointments found Your Goals/Additional instructions: Source: [facility] [employer] Document Id: [id number] ADMINISTRATOR Miscellaneous - Roxy Shea R.N. - 06/25/2011 1:43 PM CST Ambulatory Depart Summary [address] [address] Visit Information Name: PILO HERNANDEZ Current Date: 06/25/2011 13:43:31 Attending Provider: KHARI GIRALDO MD Primary Care Provider: MIR BRICEÑO [facility], LOCOMOTIVE ELECTRICIAN PILO HERNANDEZ has been given the following [...] Oral once a day Additional Information: [facility] Document Id: [id number] ADMINISTRATOR documented in this encounter Plan of Treatment Upcoming Encounters Date Type Specialty Care Team Description 01/24/2022 Diagnostic Otorhinolaryngology Laar Snell Au.D. [address] [place], [place] [phone] 01/29/2022 Office Visit Orthopedic Surgery Laurie Dumont APRN C.N.P., D.N.P. [address] [place], [place] [phone] (Wo rk) documented as of this encounter Visit Diagnoses Not on filedocumented in this encounter
--- OUTSIDE RECORDS SUMMARY | 2022-01-23 19:40 | XMS_ITS | Encounter Summary ---
:1960 Author Organization [facility] Address [address] [place] [address] Care Team Providers Name Role Phone Unavailable Primary Care Provider Unavailable Encounter Details Date Type Department Care Team Description 10/24/2009 Hospital Encounter HX NO MAPPING Noe Mijares M.D. [address] [place], [place] [phone] (Wo rk) Social History [...] you attend muslim or Patient refused 2021 judaism services? 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 [address] [place], [place] [phone] 01/29/2022 Office Visit Orthopedic Surgery Laurie Dumont APRN , C.N.P., D.N.P. [address] [place], [place] [phone] (Wo rk) documented as of this encounter Visit Diagnoses Not on filedocumented in this encounter
--- OUTSIDE RECORDS SUMMARY | 2022-01-23 19:40 | XMS_ITS | Encounter Summary ---
:1960 Author Organization [facility] Address [address] [place] [address] Care Team Providers Name Role Phone Unavailable Primary Care Provider Unavailable Encounter Details Date Type Department Care Team Description 09/03/2012 Hospital Encounter HX NO MAPPING Luis Zuniga M.D. [address] [place], [place] [phone] (Wo rk) Social History [...] or relatives? How often do you attend rastafari or Patient refused 2021 catholic services? 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 0 01/1804/13/2021 documented as of this encounter Plan of Treatment Upcoming Encounters Date Type Specialty Care Team Description 01/24/2022 Diagnostic Otorhinolaryngology Lara Snell Au.D. [address] [place], [place] [phone] 01/29/2022 Office Visit Orthopedic Surgery Laurie Dumont APRN , C.N.P., D.N.P. [address] [place], [place] [phone] (Wo rk) documented as of this encounter Visit Diagnoses Not on filedocumented in this encounter
--- OUTSIDE RECORDS SUMMARY | 2022-01-23 19:40 | XMS_ITS | Encounter Summary ---
:1960 Author Organization [facility] Address [address] [place] [address] Care Team Providers Name Role Phone Unavailable Primary Care Provider Unavailable Encounter Details Date Type Department Care Team Description 08/08/2009 Hospital Encounter HX [facility] INPT/OBS[facility] Darya Mijares M.D. [address] [place] [address] (Wo rk) Social History Tobacco [...] you attend scientology or Patient refused 2021 quaker services? 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 [address] [place], [place] [phone] 01/29/2022 Office Visit Orthopedic Surgery Laurie Dumont, ANA , C.N.P., D.N.P. [address] [place] [phone] (Wo rk) documented as of this encounter Visit Diagnoses Not on filedocumented in this encounter
--- OUTSIDE RECORDS SUMMARY | 2022-01-23 19:40 | XMS_ITS | Encounter Summary ---
:1960 Author Organization [facility] Address [address] [place] [address] Care Team Providers Name Role Phone Unavailable Primary Care Provider Unavailable Encounter Details Date Type Department Care Team Description 03/12/2013 Hospital Encounter [facility] Nieves Hunter AP RN, C.N.P., D.N.P. [address] [place], [place] [phone] (Wo rk) Social History [...] you attend mormonism or Patient refused 2021 jewish services? 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 0 01/1804/13/2021 documented as of this encounter Plan of Treatment Upcoming Encounters Date Type Specialty Care Team Description 01/24/2022 Diagnostic Otorhinolaryngology Lara Snell Au.D. [address] [place], [place] [phone] 01/29/2022 Office Visit Orthopedic Surgery Laurie Dumont APRN , C.N.P., D.N.P. [address] [place], [place] [phone] (Wo rk) documented as of this encounter Visit Diagnoses Not on filedocumented in this encounter
--- OUTSIDE RECORDS SUMMARY | 2022-01-23 19:41 | XMS_ITS | Encounter Summary ---
:1960 Author Organization [facility] Address [address] [place] [address] Care Team Providers Name Role Phone Racheal Vásquez MD Primary Care Provider Encounter Details Date Type Department Care Team Description 05/03/2021 Telephone [place] Racheal Vásquez MD [address] [place], [place] [address] [place], [place] [phone] (Wo rk) Social History Tobacco Use Types Packs/Day Years Used Date Never Smoker Smokeless Tobacco: Never Used Alcohol Use Standard Drinks/Week Comments Yes 2 (1 standard drink = 0.6 oz pure alcoho l) Sex Assigned at Date Recorded Not on file documented as of this encounter Miscellaneous Notes Telephone Encounter - Katey Botello LPN - 05/04/2021 8:24 AM CST Left detailed message for patient. RUNNER Telephone Encounter - Shannan Santana RN - 05/03/2021 8:18 AM CST LMTC RUNNER Telephone Encounter - Shannan Santana RN - 05/03/2021 8:07 AM CST ----- Message from Racheal Vásquez MD sent at 05/02/2021 4:39 PM PUMP RUNNER ----- Let Talon know this his BP is very good and I have renewed his Rx's for his BP meds. I also renewed his Rx for Prilosec if he needs this as well. If not he does not need to pick it up ----- Message ----- From: Katey Botello LPN Sent: 05/02/2021 3:33 PM PUMP RUNNER To: Racheal Vásquez MD RUNNER documented in this encounter Plan of Treatment Not on filedocumented as of this encounter Visit Diagnoses Not on filedocumented in this encounter Care Teams New Grad Rn Relationship Specialty Start Date End Date Racheal Vásquez MD PCP - General Family Medicine 04/05/[address] [place] [address] documented as of this encounter
--- OUTSIDE RECORDS SUMMARY | 2022-01-23 19:41 | XMS_ITS | Encounter Summary ---
:1960 Author Organization [facility] Address [address] [place] [address] Care Team Providers Name Role Phone Unavailable Primary Care Provider Unavailable Encounter Details Date Type Department Care Team Description 02/10/2009 Hospital Encounter HX [facility] Lolly Shea P.A.-C. [address] [place] [address] (Wo rk) Social History Tobacco [...] you attend mormon or Patient refused 2021 restorationism services? 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 [address] [place], [place] [phone] 01/29/2022 Office Visit Orthopedic Surgery Laurie Dumont, ANA , C.N.P., D.N.P. [address] [place], [place] [phone] (Wo rk) documented as of this encounter Visit Diagnoses Not on filedocumented in this encounter
--- OUTSIDE RECORDS SUMMARY | 2022-01-23 19:41 | XMS_ITS | Encounter Summary ---
:1960 Author Organization [facility] Address [address] [place] [address] Care Team Providers Name Role Phone Racheal Vásquez MD Primary Care Provider Reason for Referral Consultation (Routine) - Closed Specialty Diagnoses / Procedures Referred By Contact Refer red To Contact Sports Medicine Diagnoses Contusion of left knee, initial encounter Cheryl Jean APRN, CNP [address] [place] [address] Referral ID Status Reason Start Date Expiration Date Visits V isits Requested Authorized [id number] Closed Specialty 05/30/2021 11/26/2021 1 1 Services Required OR FABRICATION SUPERVISOR Reason for Visit Reason Comments W/C DOI 05/30/2021 Left knee Encounter Details Date Type Department Care Team Description 05/30/2021 Office Visit Arun Garcia Cheryl Jean, Contusion of left [address] [place]AL PEREZ knee, initial [place] [address] 9[facility] encounter (Primary Dx) [phone] [place] [address] Social History Tobacco Use Types Packs/Day Years Used Date Never Smoker Smokeless Tobacco: Never Used Alcohol Use Standard Drinks/Week Comments Yes 2 (1 standard drink = 0.6 oz pure alcoho l) Sex Assigned at Date Recorded Not on file documented as of this encounter Last Filed Vital Signs Vital Sign Reading Time Taken Comments Blood Pressure 116/72 05/30/2021 1:34 PM MIRROR FABRICATION SUPERVISOR Pulse 82 05/30/2021 1:34 PM MIRROR FABRICATION SUPERVISOR Temperature 36.8 ??C (98.2 ??F) 05/30/2021 1:34 PM MIRROR FABRICATION SUPERVISOR Respiratory Rate 18 05/30/2021 1:34 PM MIRROR FABRICATION SUPERVISOR Oxygen Saturation 96% 05/30/2021 1:34 PM MIRROR FABRICATION SUPERVISOR Inhaled Oxygen Concentration - - Weight 118 kg (261 lb) 05/30/2021 1:34 PM MIRROR FABRICATION SUPERVISOR Height 182.9 cm (6' 0.01) 05/30/2021 1:34 PM MIRROR FABRICATION SUPERVISOR Body Mass Index 35.39 05/30/2021 1:34 PM MIRROR FABRICATION SUPERVISOR documented in this encounter Patient Instructions Patient InstructionsTrick Jean APRN, FAMILY RESOURCE MANAGEMENT PROFESSOR - 05/30/2021 1:40 PM CST Images from the original note were not included. Start mobic 15mg daily with breakfast 2 month supply. Tylenol 500mg 2 tabs every 6 hours as needed; for first 5 days do on schedule. Ice 20min each time 2-3x/day Elevate rom as tolerable don't push resistance though. Rest Possible bakers cyst. Patient Education Sewell Cyst A Sewell cyst, also called a popliteal cyst, is a growth that forms at the back of the knee. The cystforms when the fluid-filled sac (bursa) that cushions the knee joint becomes enlarged. What are the causes? In most cases, a Sewell cyst results from another knee problem that causes swelling inside the knee. This makes the fluid inside the knee joint (synovial fluid) flow into the bursa behind the knee, causing the bursa to enlarge. What increases the risk? You may be more likely to develop a Sewell cyst if you already have a knee problem, such as: ?? A tear in cartilage that cushions the knee joint (meniscal tear). ?? A tear in the tissues that connect the bones of the knee joint (ligament tear). ?? Knee swelling from osteoarthritis, rheumatoid arthritis, or gout. What are the signs or symptoms? The main symptom of this condition is a lump behind the knee. This may be the only symptom of the condition. The lump may be painful, especially when the knee is straightened. If the lump is painful, the pain may come and go. The knee may also be stiff. Symptoms may quickly get more severe if the cyst breaks open (ruptures). If the cyst ruptures, you may feel the following in your knee and calf: ?? Sudden or worsening pain. ?? Swelling. ?? Bruising. ?? Redness in the calf. A Sewell cyst does not always cause symptoms. How is this diagnosed? This condition may be diagnosed based on your symptoms and medical history. Your health care provider will also do a physical exam. This may include: ?? Feeling the cyst to check whether it is tender. ?? Checking your knee for signs of another knee condition that causes swelling. You may have imaging tests, such as: ?? X-rays. ?? MRI. ?? Ultrasound. How is this treated? A Sewell cyst that is not painful may go away without treatment. If the cyst gets large or painful, it will likely get better if the underlying knee problem is treated. If needed, treatment for a Sewell cyst may include: ?? Resting. ?? Keeping weight off of the knee. This means not leaning on the knee to support your body weight. ?? Taking NSAIDs, such as ibuprofen, to reduce pain and swelling. ?? Having a procedure to drain the fluid from the cyst with a needle (aspiration). You may also get an injection of a medicine that reduces swelling (steroid). ?? Having surgery. This may be needed if other treatments do not work. This usually involves correcting knee damage and removing the cyst. Follow these instructions at home: Activity ?? Rest as told by your health care provider. ?? Avoid activities that make pain or swelling worse. ?? Return to your normal activities as told by your health care provider. Ask your health care provider what activities are safe for you. ?? Do not use the injured limb to support your body weight until your health care provider says thatyou can. Use crutches as told by your health care provider. General instructions ?? Take qrsp-yuh-atbcpon and prescription medicines only as told by your health care provider. ?? Keep all follow-up visits as told by your health care provider. This is important. Contact a health care provider if: ?? You have knee pain, stiffness, or swelling that does not get better. Get help right away if: ?? You have sudden or worsening pain and swelling in your calf area. Summary ?? A Sewell cyst, also called a popliteal cyst, is a growth that forms at the back of the knee. ?? In most cases, a Sewell cyst results from another knee problem that causes swelling inside the knee. ?? A Sewell cyst that is not painful may go away without treatment. ?? If needed, treatment for a Sewell cyst may include resting, keeping weight off of the knee, medicines, or draining fluid from the cyst. ?? Surgery may be needed if other treatments are not effective. This information is not intended to replace advice given to you by your health care provider. Make sure you discuss any questions you have with your health care provider. Document Revised: 09/17/2019 Document Reviewed: 09/17/2019 [employer] Patient Education ?? 2020 [employer] OR FABRICATION SUPERVISOR documented in this encounter Progress Notes Cheryl Jean APRN, CNP - 05/30/2021 1:40 PM CST Images from the original note were not included. Work Comp - Estab Patient Subjective Patient ID: Hussein Whittaker is a 60 y.o. male. Chief Complaint Patient presents with ??? W/C DOI 05/30/2021 Left knee HPI The patient presents to the [facility] for left knee contusion today; 05/30/21 at work. He tripped at work and landed on his left knee. 1 week ago he also tripped and banged his left knee on the steps. 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 He does have a mild limp, and difficulty with flexion of the knee. Pain 5/10 at present. The following portions of the patient's chart were reviewed in this encounter and updated as appropriate: Tobacco Allergies Meds Med Hx Surg Hx Fam Hx Allergies Allergen Reactions ??? Ibuprofen Hives Green capsules only ??? Nyquil Severe Cold-Flu [Hvvfdigfk-Nrlgmrkrky-An-Apap] Hives Current Outpatient Medications: ??? hydroCHLOROthiazide (HYDRODIURIL) 25 MG tablet, Take ONE in the AM for blood pressure, Disp: 90 tablet, Rfl: 3 ??? ketoconazole (NIZORAL) 2 % shampoo, , Disp: , Rfl: ??? lisinopril (Prinivil) 20 MG tablet, Take ONE full tab daily for blood pressure, Disp: 90 tablet,Rfl: 3 ??? metroNIDAZOLE (METROCREAM) 0.75 % cream, , Disp: , Rfl: ??? omeprazole (PriLOSEC) [address] capsule, Take ONE a day for GERD if needed. Do not crush or chew., Disp: 90 capsule, Rfl: 1 ??? meloxicam (Mobic) 15 MG tablet, Take 1 tablet (15 mg total) by mouth 1 (one) time each day, Disp: 30 tablet, Rfl: 1 Review of Systems Neurological: Negative for numbness. All other systems negative except HPI Objective Visit Vitals BP 116/72 (BP Location: Right arm, Patient Position: Sitting, BP Cuff Size: Adult long) Pulse 82 Temp 36.8 ??C (98.2 ??F) (Temporal) Resp 18 Ht 1.829 m (6' 0.01) Wt 118 kg (261 lb) SpO2 96% BMI 35.39 kg/m?? Smoking Status Never Smoker BSA 2.45 m?? Physical Exam Vitals reviewed. Constitutional: Appearance: He is obese. He is not ill-appearing. Musculoskeletal: Right knee: No swelling. Left knee: Swelling present. No deformity, erythema, ecchymosis or crepitus. Decreased range of motion. Tenderness (at lateral joint line and some at medial joint lilne) present over the medial joint line, lateral joint line and LCL. No ACL laxity.Normal alignment and normal patellar mobility. Right lower leg: No edema. Left lower leg: No edema. Comments: Obvious swelling surrounding left anterior knee and posterior knee. Neurological: Mental Status: He is alert and oriented to person, place, and time. Gait: Gait abnormal (mild limp favoring left leg). Assessment/Plan Problem List Items Addressed This Visit None Visit Diagnoses Contusion of left knee, initial encounter - Primary Relevant Medications meloxicam (Mobic) 15 MG tablet Other Relevant Orders Ambulatory referral to Sports Medicine X-ray knee 4+ views left (Completed) Work restriction form filled ok to work unrestricted on upper body. No flexion/LLE work until 06/13/21 for follow up. Referred to Sport Medicine. Reviewed with patient on narrowing of medial joint line and bone spurring. Follow management instructions today and see sports med. Patient Instructions Start mobic 15mg daily with breakfast 2 month supply. Tylenol 500mg 2 tabs every 6 hours as needed; for first 5 days do on schedule. Ice 20min each time 2-3x/day Elevate rom as tolerable don't push resistance though. Rest Possible bakers cyst. Patient Education Sewell Cyst A Sewell cyst, also called a popliteal cyst, is a growth that forms at the back of the knee. The cystforms when the fluid-filled sac (bursa) that cushions the knee joint becomes enlarged. What are the causes? In most cases, a Sewell cyst results from another knee problem that causes swelling inside the knee. This makes the fluid inside the knee joint (synovial fluid) flow into the bursa behind the knee, causing the bursa to enlarge. What increases the risk? You may be more likely to develop a Sewell cyst if you already have a knee problem, such as: ?? A tear in cartilage that cushions the knee joint (meniscal tear). ?? A tear in the tissues that connect the bones of the knee joint (ligament tear). ?? Knee swelling from osteoarthritis, rheumatoid arthritis, or gout. What are the signs or symptoms? The main symptom of this condition is a lump behind the knee. This may be the only symptom of the condition. The lump may be painful, especially when the knee is straightened. If the lump is painful, the pain may come and go. The knee may also be stiff. Symptoms may quickly get more severe if the cyst breaks open (ruptures). If the cyst ruptures, you may feel the following in your knee and calf: ?? Sudden or worsening pain. ?? Swelling. ?? Bruising. ?? Redness in the calf. A Sewell cyst does not always cause symptoms. How is this diagnosed? This condition may be diagnosed based on your symptoms and medical history. Your health care provider will also do a physical exam. This may include: ?? Feeling the cyst to check whether it is tender. ?? Checking your knee for signs of another knee condition that causes swelling. You may have imaging tests, such as: ?? X-rays. ?? MRI. ?? Ultrasound. How is this treated? A Sewell cyst that is not painful may go away without treatment. If the cyst gets large or painful, it will likely get better if the underlying knee problem is treated. If needed, treatment for a Sewell cyst may include: ?? Resting. ?? Keeping weight off of the knee. This means not leaning on the knee to support your body weight. ?? Taking NSAIDs, such as ibuprofen, to reduce pain and swelling. ?? Having a procedure to drain the fluid from the cyst with a needle (aspiration). You may also get an injection of a medicine that reduces swelling (steroid). ?? Having surgery. This may be needed if other treatments do not work. This usually involves correcting knee damage and removing the cyst. Follow these instructions at home: Activity ?? Rest as told by your health care provider. ?? Avoid activities that make pain or swelling worse. ?? Return to your normal activities as told by your health care provider. Ask your health care provider what activities are safe for you. ?? Do not use the injured limb to support your body weight until your health care provider says thatyou can. Use crutches as told by your health care provider. General instructions ?? Take gaze-rps-rffhqmk and prescription medicines only as told by your health care provider. ?? Keep all follow-up visits as told by your health care provider. This is important. Contact a health care provider if: ?? You have knee pain, stiffness, or swelling that does not get better. Get help right away if: ?? You have sudden or worsening pain and swelling in your calf area. Summary ?? A Sewell cyst, also called a popliteal cyst, is a growth that forms at the back of the knee. ?? In most cases, a Sewell cyst results from another knee problem that causes swelling inside the knee. ?? A Sewell cyst that is not painful may go away without treatment. ?? If needed, treatment for a Sewell cyst may include resting, keeping weight off of the knee, medicines, or draining fluid from the cyst. ?? Surgery may be needed if other treatments are not effective. This information is not intended to replace advice given to you by your health care provider. Make sure you discuss any questions you have with your health care provider. Document Revised: 09/17/2019 Document Reviewed: 09/17/2019 [employer] Patient Education ?? 2020 [employer] OR FABRICATION SUPERVISOR documented in this encounter Plan of Treatment Scheduled Referrals Name Type Priority Associated Order Schedule Diagnoses Ambulatory referral Outpatient Referral Routine Contusion of l eft Ordered: to Sports Medicine knee, initial 05/30/19 22 encounter documented as of this encounter Procedures Procedure Name Priority Date/Time Associated Diagnosis Comme nts XR KNEE 4+ VIEWS Today 05/30/2021 2:10 PM Contusion of left Results for this LEFT MIRROR FABRICATION SUPERVISOR knee, initial procedure are in encounter the results section. documented in this encounter Results X-ray knee 4+ views left (05/30/2021 2:10 PM MIRROR FABRICATION SUPERVISOR) Anatomical Region Laterality Modality Lower Extremities, Knee Left Radiographic Denisse ging Specimen (Source) Anatomical Collection Method Collection Time Re ceived Time Location / / Volume Laterality 05/30/2021 2:10 PM MIRROR FABRICATION SUPERVISOR Impressions 05/30/2021 2:24 PM MIRROR FABRICATION SUPERVISOR IMPRESSION: KNEE COMPLETE LEFT (MIN 4 VIEWS) Left knee: There is a moderate effusion. ??There is moderate to severe narrowing with spurring at the medial compartment. ??Th ere is mild spurring at the lateral compartment. ??There is mild narrowing w ith spurring at the patellofemoral joint. ??On the lateral view, at the ant erior aspect of the tibiofemoral joint, there is a 9 mm chronic appearing circumscribed density, which may represent a loose body or osteophyte. ?? No dislocation or acute fracture. ?? No lytic or blastic lesion. ??If there i s a clinical need for additional imaging, MRI could be considered. Right knee: There is minimal spurring at the medial compartment. ??No fracture, dislocation or lytic or blastic lesion. Narrative 05/30/2021 2:24 PM MIRROR FABRICATION SUPERVISOR INDICATION: left knee pain, contusion 05/30/21 and 1 week ago. work comp COMPARISON: None available Procedure Note Cyndi Cardenas MD - 05/30/2021 INDICATION: left knee pain, contusion 05/30/21 and 1 week ago. work comp COMPARISON: None available IMPRESSION: KNEE COMPLETE LEFT (MIN 4 VIEWS) Left knee: There is a moderate effusion. There is m oderate to severe narrowing with spurring at the medial compartment. Ther e is mild spurring at the lateral compartment. There is mild narrowing wit h spurring at the patellofemoral joint. On the lateral view, at the anter ior aspect of the tibiofemoral joint, there is a 9 mm chronic appearing circumscribed density, which may represent a loose body or osteophyte. No dislocation or acute fracture. No lytic or blastic lesion. If there is a clinical need for additional imaging, MRI could be considered. Right knee: There is minimal spurring at the medial compartment. No fracture, dislocation or lytic or blastic lesion. Cheryl Jean SCHOOL OFFICE MANAGER, FAMILY RESOURCE MANAGEMENT PROFESSOR IMG XR PROCEDURES documented in this encounter Visit Diagnoses Diagnosis Contusion of left knee, initial encounte r - Primary documented in this encounter Care Teams Network Development Coordinator Relationship Specialty Start Date End Date Racheal Vásquez MD PCP - General Family Medicine 04/05/[address] [place] [address] documented as of this encounter
--- OUTSIDE RECORDS SUMMARY | 2022-01-23 19:41 | XMS_ITS | Encounter Summary ---
:1960 Author Organization [facility] Address [address] [place] [address] Care Team Providers Name Role Phone Unavailable Primary Care Provider Unavailable Encounter Details Date Type Department Care Team Description 04/06/2007 Hospital Encounter HX [facility] INPT/OBSRV José Miguel Vásquez M.D. [address] [place] [address] (Wo rk) Social History Tobacco Use Types [...] or relatives? How often do you attend tenriism or Patient refused 2021 latter day services? 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 [address], [place] [phone] 01/29/2022 Office Visit Orthopedic Surgery Laurie Dumont, ANA , C.N.P., D.N.P. [address], [place] [phone] (Wo rk) documented as of this encounter Visit Diagnoses Not on filedocumented in this encounter
--- OUTSIDE RECORDS SUMMARY | 2022-01-23 19:41 | XMS_ITS | Clinical Summary ---
:1960 Author Organization [facility] Address [address] [place] [address] Care Team Providers Name Role Phone Racheal Vásquez MD Primary Care Provider Allergies Active Allergy Reactions Severity Noted Date Comments Ibuprofen Hives 04/08/2019 Green capsules only Ywcbmzpzw-Pbjudeyuav-Ec-Apap Hives 03/05/2011 Medications Medication Sig Dispensed Refills Start Date End Date Status ketoconazole (NIZORAL) 2 0 12/22/2020 Active % shampoo metroNIDAZOLE 0 01/25/2021 Activ e (METROCREAM) 0.75 % cream hydroCHLOROthiazide Take ONE in 90 tablet 3 05/02/2021 Active (HYDRODIURIL) 25 MG the AM for tabletIndications: blood pressure Primary hypertension omeprazole (PriLOSEC) 20 Take ONE a day [address] capsuleIndications: for GERD if Gastroesophageal reflux needed. Do not disease without crush or chew. esophagitis lisinopril (Prinivil) 20 Take ONE full 90 tablet 3 05/02/2021 Active MG tabletIndications: tab daily for Primary hypertension blood pressure meloxicam (Mobic) 15 MG Take 1 tablet 30 tablet 1 05/30/2021 Active tabletIndications: (15 mg total) Contusion of left knee, by mouth 1 initial encounter (one) time each day Active Problems Problem Noted Date Obesity (BMI 35.0-39.9 without comorbidity) 03/05/2021 Primary hypertension 03/05/2021 Benign essential hematuria 03/05/2021 Benign cyst of left kidney 03/05/2021 Diverticula, intestine 03/05/2021 Gastroesophageal reflux disease without esophagitis Acne rosacea 03/05/2021 Psoriasis 03/05/2021 Hx of skin cancer, basal cell 03/05/2021 Immunizations Name Administration Dates Next Due COVID-19, mRNA, LNP-S, PF, 30mcg/0.3mL dose Pfizer Flu Vaccine 50-64yrs Flublok (Egg Free) 04/05/2019 Influenza 6mo-49yrs Quad Preservative Free IM 02/24/2021, Family History Medical History Relation Comments Heart disease Mother Relation Status Comments Brother 1 Alive Brother 2 Alive Brother 3 Alive Daughter Alive Father Mother Sister 1 Alive Sister 2 Alive Sister 3 Alive Sister 4 Alive Son Alive Social History Tobacco Use Types Packs/Day Years Used Date Never Smoker Smokeless Tobacco: Never Used Alcohol Use Standard Drinks/Week Comments Yes 2 (1 standard drink = 0.6 oz pure alcoho l) Sex Assigned at Date Recorded Not on file Last Filed Vital Signs Vital Sign Reading Time Taken Comments Blood Pressure 121/75 06/05/2021 4:15 PM ROCK LOADER Pulse 82 05/30/2021 1:34 PM ROCK LOADER Temperature 36.8 ??C (98.2 ??F) 05/30/2021 1:34 PM ROCK LOADER Respiratory Rate 18 05/30/2021 1:34 PM ROCK LOADER Oxygen Saturation 96% 05/30/2021 1:34 PM ROCK LOADER Inhaled Oxygen Concentration - - Weight 118 kg (261 lb) 05/30/2021 1:34 PM ROCK LOADER Height 182.9 cm (6' 0.01) 05/30/2021 1:34 PM ROCK LOADER Body Mass Index 35.39 05/30/2021 1:34 PM ROCK LOADER Plan of Treatment Health Maintenance Due Date Last Done Comments [facility] Pneumococcal Vaccine: 65+ 1964 Years (1 - PCV) [facility] Pneumococcal Vaccine: <64 1964 (1 - PCV) COVID-19 Vaccine (4 - Booster 08/09/2021 04/11/2021, for Pfizer series) 09/05/2020, 08/10/2020 Colorectal Cancer Screenin04/18/2026 04/18/2021 Colonoscopy HPV Vaccines Aged Out No longer eligib le based on patient's age to complete this to [facility] Insurance Payer Benefit Plan / Subscriber ID Effective Dates Phone Addre ss Type Group TRAVELERS TRAVELERS [id number] 2021-Prese [id number] [place] [address] BCBS OF BCBS OF [id number] 2015-Diamond [address] [address] [place] [address] Care Teams Naval Aircrewman Operator Relationship Specialty Start Date End Date Racheal Vásquez MD PCP - General Family Medicine 04/05/[address] [place] [address]
--- OUTSIDE RECORDS SUMMARY | 2022-01-23 19:41 | XMS_ITS | Encounter Summary ---
:1960 Author Organization [facility] Address [address] [place] [address] Care Team Providers Name Role Phone Racheal Vásquez MD Primary Care Provider Reason for Visit Reason Onset Date Comments HTN registry 202005/01/2021 Encounter Details Date Type Department Care Team Description 05/01/2021 Telephone Arun Garcia Racheal Vásquez, HTN registry [address] [place], [place] [address] [phone] [place] [address] (Wo rk) Social History Tobacco Use Types Packs/Day Years Used Date Never Smoker Smokeless Tobacco: Never Used Alcohol Use Standard Drinks/Week Comments Yes 2 (1 standard drink = 0.6 oz pure alcoho l) Sex Assigned at Date Recorded Not on file documented as of this encounter Miscellaneous Notes Telephone Encounter - Dian Bacon - 05/01/2021 4:01 PM CST Nurse only BP CK scheduled for Friday05/02/21. CLEANING MACHINE OPERATOR Telephone Encounter - Matilde Morel MA - 05/01/2021 1:47 PM CST Registry Management Hussein has been identified with gaps in care for the following registry/registries: Hypertension Registry BP Readings from Last 1 Encounters: 03/05/21 (!) 164/110 Health Maintenance Topics with due status: Overdue Topic Date Due [facility] Pneumococcal Vaccine: <64 Never done [facility] Pneumococcal Vaccine: 65+ Years Never done COVID-19 Vaccine Never done Referrals: ??? None Plan: ??? Patient advised to come in for nurse visit/blood pressure check Called patient to make sure he is still seeing Dr. Milton Vásquez. LMTCB CLEANING MACHINE OPERATOR documented in this encounter Plan of Treatment Not on filedocumented as of this encounter Visit Diagnoses Not on filedocumented in this encounter Care Teams Mounter Saxophones Relationship Specialty Start Date End Date Racheal Vásquez MD PCP - General Family Medicine 04/05/[address] [place] [address] documented as of this encounter
--- OUTSIDE RECORDS SUMMARY | 2022-01-23 19:41 | XMS_ITS | Encounter Summary ---
:1960 Author Organization [facility] Address [address] [place] [address] Care Team Providers Name Role Phone Unavailable Primary Care Provider Unavailable Encounter Details Date Type Department Care Team Description 02/23/2007 Hospital Encounter [facility]X [facility] INPT[facility]BS[facility] José Miguel Vásquez M.D. [address] [place] [address] (Wo rk) Social History Tobacco Use Types [...] you attend lutheran or Patient refused 2021 synagogue services? 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 [address] [place], [place] [phone] 01/29/2022 Office Visit Orthopedic Surgery Laurie Dumont, ANA , C.N.P., D.N.P. [address] [place], [place] [address] (Wo rk) documented as of this encounter Visit Diagnoses Not on filedocumented in this encounter
--- OUTSIDE RECORDS SUMMARY | 2022-01-23 19:41 | XMS_ITS | Encounter Summary ---
:1960 Author Organization [facility] Address [address] [place] [address] Care Team Providers Name Role Phone Racheal Vásquez MD Primary Care Provider Encounter Details Date Type Department Care Team Description 05/30/2021 Ancillary Procedure Arun Garcia Radiolo gy [address] Arun Garcia [place] [address] Social History Tobacco Use Types Packs/Day Years Used Date Never Smoker Smokeless Tobacco: Never Used Alcohol Use Standard Drinks/Week Comments Yes 2 (1 standard drink = 0.6 oz pure alcoho l) Sex Assigned at Date Recorded Not on file documented as of this encounter Plan of Treatment Not on filedocumented as of this encounter Procedures Procedure Name Priority Date/Time Associated Diagnosis Comme nts XR KNEE 4+ VIEWS Today 05/30/2021 2:10 PM Contusion of left Results for this LEFT DEPUTY CITY CLERK knee, initial procedure are in encounter the results section. documented in this encounter Results X-ray knee 4+ views left (05/30/2021 2:10 PM DEPUTY CITY CLERK) Anatomical Region Laterality Modality Lower Extremities, Knee Left Radiographic Denisse ging Specimen (Source) Anatomical Collection Method Collection Time Re ceived Time Location / / Volume Laterality 05/30/2021 2:10 PM DEPUTY CITY CLERK Impressions 05/30/2021 2:24 PM DEPUTY CITY CLERK IMPRESSION: KNEE COMPLETE LEFT (MIN 4 VIEWS) [...] or blastic lesion. Narrative 05/30/2021 2:24 PM DEPUTY CITY CLERK INDICATION: left knee pain, contusion 05/30/21 and [...] or lytic or blastic lesion. Cheryl Jean CLARIFICATION OPERATOR, WELDER EXPERIMENTAL IMG XR PROCEDURES documented in this encounter Visit Diagnoses Not on filedocumented in this encounter Care Teams Telephone Order Clerk Relationship Specialty Start Date End Date Racheal Vásquez MD PCP - General Family Medicine 04/05/[address] [place] [address] documented as of this encounter
--- OUTSIDE RECORDS SUMMARY | 2022-01-23 19:41 | XMS_ITS | Encounter Summary ---
:1960 Author Organization [facility] Address [address] [place] [address] Care Team Providers Name Role Phone Racheal Vásquez MD Primary Care Provider Reason for Visit Reason Comments Blood Pressure Check Encounter Details Date Type Department Care Team Description 05/02/2021 Clinical Support Arun Garcia [address] Arun [place] [address] Social History Tobacco Use Types Packs/Day Years Used Date Never Smoker Smokeless Tobacco: Never Used Alcohol Use Standard Drinks/Week Comments Yes 2 (1 standard drink = 0.6 oz pure alcoho l) Sex Assigned at Date Recorded Not on file documented as of this encounter Last Filed Vital Signs Vital Sign Reading Time Taken Comments Blood Pressure 102/72 05/02/2021 3:30 PM RECORDS CLERK Pulse 86 05/02/2021 3:30 PM RECORDS CLERK Temperature - - Respiratory Rate - - Oxygen Saturation - - Inhaled Oxygen Concentration - - Weight - - Height - - Body Mass Index - - documented in this encounter Progress Notes Katey Botello LPN - 05/02/2021 3:20 PM CST The patient was in for a BP check. The patient feels wonderful. BP: 102/72 P: 86 He is wondering if he can get another 90 days of his prescriptions now before the end of the year because they are currently free. Is this possible. Pharmacy: [facility] RDS CLERK Racheal Vásquez MD - 05/02/2021 3:20 PM CST Let Ray know this his BP is very good and I have renewed his Rx's for his BP meds. I also renewed his Rx for Prilosec if he needs this as well. If not he does not need to pick it up RDS CLERK Shannan Santana RN - 05/02/2021 3:20 PM CST LMTC RDS CLERK documented in this encounter Plan of Treatment Not on filedocumented as of this encounter Visit Diagnoses Not on filedocumented in this encounter Care Teams Instructional Systems Specialist Relationship Specialty Start Date End Date Racheal Vásquez MD PCP - General Family Medicine 04/05/[address] [place] [address] documented as of this encounter
--- OUTSIDE RECORDS SUMMARY | 2022-01-23 19:41 | XMS_ITS | Encounter Summary ---
:1960 Author Organization [facility] Address [address] [place] [address] Care Team Providers Name Role Phone Unavailable Primary Care Provider Unavailable Encounter Details Date Type Department Care Team Description 02/10/2009 Hospital Encounter HX [facility] INPT/OBSRV Lolly Shea P.A.-C. [address] [place] [address] (Wo rk) Social History Tobacco [...] you attend scientology or Patient refused 2021 jehovah's witness services? 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 [address] [place], [place] [phone] 01/29/2022 Office Visit Orthopedic Surgery Laurie Dumont, ANA , C.N.P., D.N.P. [address] [place], [place] [phone] (Wo rk) documented as of this encounter Visit Diagnoses Not on filedocumented in this encounter
--- OUTSIDE RECORDS SUMMARY | 2022-01-23 19:41 | XMS_ITS | Encounter Summary ---
:1960 Author Organization [facility] Address [address] [place] [address] Care Team Providers Name Role Phone Unavailable Primary Care Provider Unavailable Encounter Details Date Type Department Care Team Description 04/17/2009 Hospital Encounter [facility]X [facility] INPT/OBSRV José Miguel Vásquez M.D. [address] [place] [address] (Wo rk) Social History Tobacco Use Types [...] you attend orthodox or Patient refused 2021 scientologist services? 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 [address] [place], [place] [phone] 01/29/2022 Office Visit Orthopedic Surgery Laurie Dumont, ANA , C.N.P., D.N.P. [address] [place], [place] [phone] (Wo rk) documented as of this encounter Visit Diagnoses Not on filedocumented in this encounter
--- OUTSIDE RECORDS SUMMARY | 2022-01-23 19:41 | XMS_ITS | Encounter Summary ---
:1960 Author Organization [facility] Address [address] [place] [address] Care Team Providers Name Role Phone Racheal Vásquez MD Primary Care Provider Reason for Referral Consultation (Routine) - Authorized Specialty Diagnoses / Procedures Referred By Contact Refer red To Contact Orthopedic Surgery Diagnoses Other secondary osteoarthritis of left knee Eliceo Damon [facility] Orthopedics MD [address] [place] [address] [place] [address] Referral ID Status Reason Start Expiration Visits Visits Date Date Requested Authorized [id number] Authorized Specialty 06/05/2021 06/05/2022 1 1 Services Required TEACHER Reason for Visit Reason Comments Knee Pain left Consultation (Routine) - Closed Specialty Diagnoses / Procedures Referred By Contact Refer red To Contact Sports Medicine Diagnoses Contusion of left knee, initial encounter Cheryl Jean, SCHOOL VOCATIONAL EDUCATOR, ANGLE DOZER OPERATOR [address] [place] [address] Referral ID Status Reason Start Date Expiration Date Visits V isits Requested Authorized [id number] Closed Specialty 05/30/2021 11/26/2021 1 1 Services Required Encounter Details Date Type Department Care Team Description 06/05/2021 Office Visit Eliceo Adams Other secondary [address] [address] [address] knee (Primary Dx) [phone] [place] [address] Social History Tobacco Use Types Packs/Day Years Used Date Never Smoker Smokeless Tobacco: Never Used Alcohol Use Standard Drinks/Week Comments Yes 2 (1 standard drink = 0.6 oz pure alcoho l) Sex Assigned at Date Recorded Not on file documented as of this encounter Last Filed Vital Signs Vital Sign Reading Time Taken Comments Blood Pressure 121/75 06/05/2021 4:15 PM LD TEACHER Pulse - - Temperature - - Respiratory Rate - - Oxygen Saturation - - Inhaled Oxygen Concentration - - Weight - - Height - - Body Mass Index - - documented in this encounter Patient Instructions Patient InstructionsMattnatalia Damon MD - 06/05/2021 4:00 PM CST 1. New problem left knee DJD exacerbation after work-related fall Patient had a partial meniscectomy of the left knee at [facility] approximately 8 years ago, this was the medial meniscus and has developed arthrosis in the medial compartment. He states he really does not have a lot of pain until he fell at work recently, exacerbating his DJD. His knee is otherwise stable. He will ice, he was given a BioSkin knee brace to help with proprioceptive assistance. He hasno formal restrictions at work, he was given meloxicam by his primary care provider, states he took 1 tablet 1 day and it did not help so he stopped. I recommended he start that up again. We talked at great length about his knee arthritis, the work-related fall certainly exacerbated the knee arthritisbut did not cause it. Patient did ask for referral to discuss possible knee replacement with our orthopedic surgery department so that was filled out. They will call him for an appointment. Questions were answered, the patient is comfortable with this plan. I would like to thank Ms. Jean for the referral to sports medicine. TEACHER documented in this encounter Progress Notes Eliceo Damon MD - 06/05/2021 4:00 PM CST Subjective Patient ID: Hussein Whittaker is a 60 y.o. male. No chief complaint on file. HPI This is a 60 year old right hand dominant male who presents today for left knee pain. He was referred here by Cheryl Hak, SCHOOL VOCATIONAL EDUCATOR, ANGLE DOZER OPERATOR. He works at [employer]. This is a work comp injury. He states a pain level of 8 out of 10. He points to posterior left knee as a site of maximum tenderness. He states that on 05/30/21 he tripped at work and fell, he thinks his knee twisted as he fell and helanded onto his left knee. He has been having pain since then that has not improved. He was seen in the ED and treated for a contusion, given Mobic 15mg and work restrictions. He states that has not been taking the mobic. He states getting in and out of his car is very painful. Knee flexion is painful, it doesn't matter if he is weightbearing or not. He states he has been walking with a limp. He states that he does not have pseudobuckling of the left knee. He states that he does not have catching or locking of the left knee. He states that he has tried ice, heat for the pain. He has not had cortisone injections and physical therapy for his left knee. He has had previous surgery on the affected area. Partial menisectomy 7 or 8 years ago. He has no history of diabetes, fibromyalgia, or rheumatoid arthritis. History of skin cancer. Past Medical History Past Medical History: Diagnosis Date ??? Allergic ??? Anxiety ??? Cancer (HCC) Skin ??? HL (hearing loss) ??? Obesity ??? Varicella ??? Visual impairment Past Surgical History No past surgical history on file. Allergies: Ibuprofen and Nyquil severe cold-flu [[id number]] Social History: Social History Occupational History ??? Not on file Tobacco Use ??? Smoking status: Never Smoker ??? Smokeless tobacco: Never Used Substance and Sexual Activity ??? Alcohol use: Yes Alcohol/week: 2.0 standard drinks Types: 2 Standard drinks or equivalent per week ??? Drug use: Never ??? Sexual activity: Not on file Family History: Family History Problem Relation Age of Onset ??? Heart disease Mother ROS: Constitutional: Patient denies fever, chills, unintentional weight gain or loss Eyes: Patient denies vision loss or vision change, pain, double vision, glaucoma, cataracts ENT Ears: Patient denies hearing changes, ringing in ears, discharge or pain Nose: Patient denies congestion, runny nose, sinus pain Throat: Patient denies sore throat, hoarseness, voice changes or mouth sores Cardiovascular: Patient denies chest pain, discomfort, tightness, palpitations or shortness of breath with activity Respiratory: Patient denies new or changing cough, coughing up blood, wheezing, shortness of breath GI: Patient denies problems swallowing, change in appetite, nausea, vomiting, changes in stool, change in bowel habits Musculoskeletal: Negative other than those stated in HPI Skin: Patient denies rashes, lumps, itching Neurological: Patient denies new or changing headache, head injury, syncope, memory loss, balance problems Endocrine: Patient denies heat or cold intolerance Hematologic: Patient denies heat or cold intolerance, increased sweating, excessive hunger or thirst Objective: Visit Vitals Smoking Status Never Smoker Objective Physical Exam This is a very pleasant 60-year-old male in no apparent distress. Patient is without labored breathing. Examination shows a well-groomed male who appears stated age who is alert and oriented x3, mood and affect are pleasant. Gait is nonantalgic. Patient is able to get up and move to the examination table without difficulty. Examination of the left knee shows genu varus stance with scant effusion. There is an ballotable patella. Tenderness over the medial joint line. There is no lateral joint line tenderness with a negative lateral Sadaf. Jerrod and posterior drawer test of the left knee are negative with firm, positive endpoint. Varus and valgus stress of the left knee at 0 and 30 degrees of flexion are negative for pain, laxity with very minimal pseudolaxity secondary to his arthrosis. Mild tenderness over the left pes anserine bursa which does not reproduce any presenting pain. There is nopalpable Sewell's cyst. Resisted bilateral knee extension shows appropriate symmetric strength. Bilate ral patellar tendon reflexes are equal and appropriate without hypo-or hyperreflexia. Knee range of motion on the left is from 0 to 110 degrees, right is to 130 degrees of flexion. Calf is soft and nontender to palpation with a negative Homans' sign. Posterior tibial and dorsalis pedis pulses are 2+ and symmetric bilaterally. Reading Physician Reading Date Result Priority Cyndi Cardenas MD [phone] 05/30/2021 Narrative & Impression INDICATION: left knee pain, contusion 05/30/21 and 1 week ago. work comp COMPARISON: None available IMPRESSION: KNEE COMPLETE LEFT (MIN 4 VIEWS) Left knee: There is a moderate effusion. There is moderate to severe narrowing with spurring at the medial compartment. There is mild spurring at the lateral compartment. There is mild narrowing with spurring at the patellofemoral joint. On the lateral view, at the anterior aspect of the tibiofemoral joint, there is a 9 mm chronic appearing circumscribed density, which may represent a loose body or osteophyte. No dislocation or acute fracture. No lytic or blastic lesion. If there is a clinical need for additional imaging, MRI could be considered. Right knee: There is minimal spurring at the medial compartment. No fracture, dislocation or lytic or blastic lesion. I independently reviewed the plain radiographs and agree with the stated radiology report. Assessment and Plan: 1. New problem left knee DJD exacerbation after work-related fall Patient had a partial meniscectomy of the left knee at [facility] approximately 8 years ago, this was the medial meniscus and has developed arthrosis in the medial compartment. He states he really does not have a lot of pain until he fell at work recently, exacerbating his DJD. His knee is otherwise stable. He will ice, he was given a BioSkin knee brace to help with proprioceptive assistance. He hasno formal restrictions at work, he was given meloxicam by his primary care provider, states he took 1 tablet 1 day and it did not help so he stopped. I recommended he start that up again. We talked at great length about his knee arthritis, the work-related fall certainly exacerbated the knee arthritisbut did not cause it. Patient did ask for referral to discuss possible knee replacement with our orthopedic surgery department so that was filled out. They will call him for an appointment. Questions were answered, the patient is comfortable with this plan. I would like to thank Ms. Jean for the referral to sports medicine. Over 30 minutes of time was spent with the patient in consultation, review of imaging, discussion offindings, physical examination, interpretation of physical examination and plan of care. Some portions of today's visit were conducted by BRIDGETT Degroot, ATC, LAT and documented above. I,Eliceo Damon MD, MS have reviewed and edited this documentation as needed to ensure that thenote is both accurate and complete. This dictation was created with voice recognition software and therefore may contain errors that went unnoticed. TEACHER Cheryl Jean APRN, CNP - 06/05/2021 4:00 PM CST Reviewed TEACHER documented in this encounter Plan of Treatment Scheduled Referrals Name Type Priority Associated Diagnoses Order S chedule Ambulatory referral Outpatient Referral Routine Other secondar y Ordered: to Orthopedic osteoarthritis of left 05/19 Surgery knee documented as of this encounter Visit Diagnoses Diagnosis Other secondary osteoarthritis of left k nee - Primary documented in this encounter Care Teams Emergency Communications Officer Relationship Specialty Start Date End Date Racheal Vásquez MD PCP - General Family Medicine 04/05/[address] [place] [address] documented as of this encounter
--- OUTSIDE RECORDS SUMMARY | 2022-01-23 19:41 | XMS_ITS | Encounter Summary ---
:1960 Author Organization [facility] Address [address] [place] [address] Care Team Providers Name Role Phone Racheal Vásquez MD Primary Care Provider Reason for Visit Reason Onset Date Comments Colonoscopy referral status 03/13/2021 Encounter Details Date Type Department Care Team Description 03/13/2021 Telephone Arun Garcia Racheal Vásquez Colonoscopy referral [address] [place] status [place], [place] [address] [phone] [place] [address] Social History Tobacco Use Types Packs/Day Years Used Date Never Smoker Smokeless Tobacco: Never Used Alcohol Use Standard Drinks/Week Comments Yes 2 (1 standard drink = 0.6 oz pure alcoho l) Sex Assigned at Date Recorded Not on file documented as of this encounter Miscellaneous Notes Telephone Encounter - Dian Bacon - 03/14/2021 11:23 AM CDT Referral and face sheet faxed to [facility] Colonoscopy scheduling as requested. Telephone Encounter - Katey Botello LPN - 03/14/2021 10:12 AM CDT Please resend to [facility] today. Telephone Encounter - Dian Bacon - 03/13/2021 4:14 PM CDT Pt called stating it has been just over a week and he was told to call if he has not heard anything regarding his colonoscopy referral. Please call Pt at [phone] to advise. documented in this encounter Plan of Treatment Not on filedocumented as of this encounter Visit Diagnoses Not on filedocumented in this encounter Care Teams Processing Mgr Relationship Specialty Start Date End Date Racheal Vásquez MD PCP - General Family Medicine 04/05/19 [address] [place] [address] documented as of this encounter
--- OUTSIDE RECORDS SUMMARY | 2022-01-23 19:41 | XMS_ITS | Encounter Summary ---
:1960 Author Organization [facility] Address [address] [place] [address] Care Team Providers Name Role Phone Unavailable Primary Care Provider Unavailable Encounter Details Date Type Department Care Team Description 01/27/2007 Ancillary Procedure Department of Dermatology Social History Tobacco Use Types Packs/Day Years [...] or relatives? How often do you attend caodaism or Patient refused 2021 mu-ism services? 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 [address] [place] [phone] 01/29/2022 Office Visit Orthopedic Surgery Laurie Dumont APRN, C.NTahir, D.N.P. [address] [facility] [place], [place] [address] (Wo rk) documented as of this encounter Procedures Procedure Name Priority Date/Time Associated Comments Diagnosis DERMATOLOGY IMAGE Routine 01/27/2007 12:00 Result s for this EXAM AM CDT procedure are i n the results section. documented in this encounter Results 23 nose, left ala-Dermatology Image Exam (01/27/2007 12:00 AM CDT) Specimen (Source) Anatomical Location Collection Method / Collectio n Time Received Time / Laterality Volume Narrative [facility] - 07/21/2019 7:36 PM AIR CARGO SPECIALIST SUPERVISOR This order has been created and auto-finalized [...]
--- OUTSIDE RECORDS SUMMARY | 2022-01-23 19:41 | XMS_ITS | Encounter Summary ---
:1960 Author Organization [facility] Address [address] [place] [address] Care Team Providers Name Role Phone Unavailable Primary Care Provider Unavailable Encounter Details Date Type Department Care Team Description 05/04/2007 Hospital Encounter [facility]X [facility] INPT/OBSRV José Miguel Vásquez M.D. [address] [place] [address] (Wo rk) Social History Tobacco Use Types [...] you attend sabianist or Patient refused 2021 church services? Do you belong to any clubs [...] place to sleep or slept in a chcf (including now)? 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 [address] [place], [place] [phone] 01/29/2022 Office Visit Orthopedic Surgery Laurie Dumont, ANA , C.N.P., D.N.P. [address] [place], [place] [phone] (Wo rk) documented as of this encounter Visit Diagnoses Not on filedocumented in this encounter
--- OUTSIDE RECORDS SUMMARY | 2022-01-23 19:41 | XMS_ITS | Encounter Summary ---
:1960 Author Organization [facility] Address [address] [place] [address] Care Team Providers Name Role Phone Unavailable Primary Care Provider Unavailable Encounter Details Date Type Department Care Team Description 02/10/2009 [facility] M.Racheal [address] [place] [phone] (Wo rk) Social [...] many times do you More than three sahy es a week 12/20/2021 talk on the phone with family, friends, or neighbors? How often do you get together with friends Twice a week 12/20/2021 or relatives? How often do you attend islam or Patient refused 2021 cheondoism services? 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 [address] [place], [place] [phone] 01/29/2022 Office Visit Orthopedic Surgery Laurie Dumont, ANA , C.N.P., D.N.P. [address] [place] [phone] (Wo rk) documented as of this encounter Visit Diagnoses Not on filedocumented in this encounter
--- OUTSIDE RECORDS SUMMARY | 2022-01-23 19:41 | XMS_ITS | Encounter Summary ---
:1960 Author Organization [facility] Address [address] [place] [address] Care Team Providers Name Role Phone Unavailable Primary Care Provider Unavailable Encounter Details Date Type Department Care Team Description 11/25/2006 Ancillary Procedure Department of Dermatology Social History [...] you attend adventist or Patient refused 2021 nondenominational services? 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 [address] [place] [phone] 01/29/2022 Office Visit Orthopedic Surgery Laurie Dumont APRN, C.NTahir, D.N.P. [address] [facility] [place], [place] [phone] (Wo rk) documented as of this encounter Procedures Procedure Name Priority Date/Time Associated Comments Diagnosis DERMATOLOGY IMAGE Routine 11/25/2006 12:00 Result s for this EXAM AM CDT procedure are i n the results section. documented in this encounter Results 23 nose, left ala-Dermatology Image Exam (11/25/2006 12:00 AM CDT) Specimen (Source) Anatomical Location Collection Method / Collectio n Time Received Time / Laterality Volume Narrative IIMS - 07/21/2019 4:04 PM SUPERVISOR PREP This order has been created and auto-finalized [...]
--- OUTSIDE RECORDS SUMMARY | 2022-01-23 19:41 | XMS_ITS | Encounter Summary ---
:1960 Author Organization [facility] Address [address] [place] [address] Care Team Providers Name Role Phone Unavailable Primary Care Provider Unavailable Encounter Details Date Type Department Care Team Description 04/15/2007 Hospital Encounter [facility]X [facility] INPT[facility]BSRV José Miguel Vásquez M.D. [address] [place] [phone] (Wo rk) Social History Tobacco Use Types [...] you attend taoism or Patient refused 2021 sikhism services? 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 [address] [place], [place] [phone] 01/29/2022 Office Visit Orthopedic Surgery Laurie Dumont, ANA , C.N.P., D.N.P. [address] [place], [place] [phone] (Wo rk) documented as of this encounter Visit Diagnoses Not on filedocumented in this encounter
--- OUTSIDE RECORDS SUMMARY | 2022-01-23 19:41 | XMS_ITS | Encounter Summary ---
:1960 Author Organization [facility] Address [address] [place] [address] Care Team Providers Name Role Phone Racheal Vásquez MD Primary Care Provider Reason for Visit Reason Comments Immunizations Encounter Details Date Type Department Care Team Description 04/05/2019 Immunization [place] Flu vaccine need (Primary [address] Dx) [place], [place] [address] Social History Tobacco Use Types Packs/Day Years Used Date Never Assessed Sex Assigned at Date Recorded Not on file documented as of this encounter Progress Notes Renetta Haji RN - 04/05/2019 4:10 PM CST Tolerated well. No fever. No previous reaction to flu vaccine. 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
--- OUTSIDE RECORDS SUMMARY | 2022-01-23 19:41 | XMS_ITS | Encounter Summary ---
:1960 Author Organization [facility] Address [address] [place] [address] Care Team Providers Name Role Phone Racheal Vásquez MD Primary Care Provider Encounter Details Date Type Department Care Team Description 05/02/2021 Orders Only [place] Gastroesophageal reflux dise ase without esophagitis (Primary Dx); [address] [facility] [place] Primary hypertension [place], [place] [address] [address] [place] [phone] [place] [address] Social History Tobacco Use Types Packs/Day Years Used Date Never Smoker Smokeless Tobacco: Never Used Alcohol Use Standard Drinks/Week Comments Yes 2 (1 standard drink = 0.6 oz pure alcoho l) Sex Assigned at Date Recorded Not on file documented as of this encounter Plan of Treatment Not on filedocumented as of this encounter Visit Diagnoses Diagnosis Gastroesophageal reflux disease without esophagitis - Primary Esophageal reflux Primary hypertension Unspecified essential hypertension documented in this encounter Care Teams Cokeman Relationship Specialty Start Date End Date Racheal Vásquez MD PCP - General Family Medicine 04/05/[address] [place] [address] documented as of this encounter
--- OUTSIDE RECORDS SUMMARY | 2022-01-23 19:41 | XMS_ITS | Encounter Summary ---
:1960 Author Organization [facility] Address [address] [place] [address] Care Team Providers Name Role Phone Unavailable Primary Care Provider Unavailable Encounter Details Date Type Department Care Team Description 03/15/2009 Hospital Encounter HX [facility] INPT[facility]OBSRV José Miguel Vásquez M.D. [address] [place] [address] (Wo rk) Social History Tobacco Use Types [...] you attend restorationism or Patient refused 2021 druze services? 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 [address] [place], [place] [phone] 01/29/2022 Office Visit Orthopedic Surgery Laurie Dumont, ANA , C.N.P., D.N.P. [address] [place], [place] [phone] (Wo rk) documented as of this encounter Visit Diagnoses Not on filedocumented in this encounter
--- OUTSIDE RECORDS SUMMARY | 2022-01-23 19:41 | XMS_ITS | Encounter Summary ---
:1960 Author Organization [facility] Address [address] [place] [address] Care Team Providers Name Role Phone Unavailable Primary Care Provider Unavailable Encounter Details Date Type Department Care Team Description 11/25/2006 - Hospital Encounter HX [facility] DERM SURG OP Lyndsay Love, 12/02/2006 FRANCESCA Campbell [address] [place] [address] Social History Tobacco Use Types Packs/Day Years [...] attend jehovah's witness or Patient refused 2021 yazidism services? 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 [address] [place], [place] [phone] 01/29/2022 Office Visit Orthopedic Surgery Laurie Dumont, ANA , C.N.P., D.N.P. [address] [place] [phone] (Wo rk) documented as of this encounter Visit Diagnoses Not on filedocumented in this encounter
--- OUTSIDE RECORDS SUMMARY | 2022-01-23 19:41 | XMS_ITS | Encounter Summary ---
:1960 Author Organization [facility] Address [address] [place] [address] Care Team Providers Name Role Phone Racheal Vásquez MD Primary Care Provider Reason for Referral Consultation (Routine) - Authorized Specialty Diagnoses / Procedures Referred By Contact Refer red To Contact Diagnoses Colon cancer screening Racheal Vásquez MD [facility] [address] [place] [phone] [place] [address] Phone: Fax: Referral ID Status Reason Start Date Expiration Date Visits V isits Requested Authorized [id number] Authorized 03/05/2021 03/05/2022 1 1 Reason for Visit Reason Comments Hypertension Discuss Colonoscopy Encounter Details Date Type Department Care Team Description 03/05/2021 Office Visit Racheal Bernabe Encounter for wellness exami nation in adult (Primary Dx); [address] [place] Primary hypertension; [place], [place] [address] Colon cancer screening [phone] [place] [address] Social History Tobacco Use Types Packs/Day Years Used Date Never Smoker Smokeless Tobacco: Never Used Alcohol Use Standard Drinks/Week Comments Yes 2 (1 standard drink = 0.6 oz pure alcoho l) Sex Assigned at Date Recorded Not on file documented as of this encounter Last Filed Vital Signs Vital Sign Reading Time Taken Comments Blood Pressure 164/110 03/05/2021 3:19 PM CDT Pulse 108 03/05/2021 3:19 PM CDT Temperature 36.6 ??C (97.8 ??F) 03/05/2021 3:19 PM CDT Respiratory Rate 16 03/05/2021 3:19 PM CDT Oxygen Saturation 96% 03/05/2021 3:19 PM CDT Inhaled Oxygen Concentration - - Weight 119 kg (262 lb) 03/05/2021 3:19 PM CDT Height 182.9 cm (6') 03/05/2021 3:19 PM CDT Body Mass Index 35.53 03/05/2021 3:19 PM CDT documented in this encounter Progress Notes DFarshad Vásquez MD - 03/05/2021 3:00 PM CDT Estab Patient Visit Subjective Patient ID: Hussein Whittaker is a 60 y.o. male. HPI the patient is here today for hypertension and to get a colonoscopy scheduled a general physicalevaluation. The patient's not had anything particular happened to him this last year no ER visits no hospitalizations no injuries accidents or illnesses he did not acquire covid 19. SMOKING quit more than 25 years ago ALCOHOL 3 shots of whiskey mixed with Pepsi/coke every night. We did discuss with him that that exceeds what would be recommended as no more than 1 ounce of liquor per day. This would be of benefit forhim regarding weight loss as well as hypertension as well as decreasing risk for strokes in his future. ALLERGIES listed to Advil and NyQuil however is most likely from the green dye of the Advil gel and not Advil itself. He can tolerate aspirin he can tolerate Aleve and other NSAIDs he does take Excedrin periodically and he has been taking aspirin as well without any problems. MEDICATIONS Ketoconazole shampoo periodically MetroGel cream periodically Prilosec 20 mg per much every day for acid reflux we did discuss going every other day to see if that would work as well for him. NEW MEDS Hydrochlorothiazide 25 1 daily Lisinopril 20 mg 1 daily MEDICAL HISTORY Hypertension essential Obesity calorie induced GERD Diverticuli Benign hematuria Benign cyst left kidney Acne rosacea History of basal cell skin cancer 1 occasion Risk factors for sleep apnea patient states he had a sleep study done within the last year that thathe was borderline ALCOHOL OVERUSE PAST SURGICAL HISTORY Colonoscopy age 48 Cystoscopy for his benign hematuria more than 10 years ago Left knee meniscus surgery x2 Right wrist fracture that required surgical reduction Left basal cell skin cancer HOSPITALIZATIONS NONE EXCEPT FOR SURGICAL REASONS SOCIAL HISTORY for 27 years first marriage. 2 children ages 25 and 20 no grandchildren. 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 His works at a [employer] in [place] FAMILY HISTORY his father at age 93 just general old age his mother at 65 question heart He has a total of 4 sisters and 3 brothers 1 sisters been currently diagnosed with lung cancer 1 brother had probable prostate cancer just diagnosed LAB TESTING patient says he gets tested yearly through his place of work we have asked him to bring a copy of this test in for us to review. IMMUNIZATIONS he is up-to-date with his COVID-19 shot he gets a yearly flu vaccination his last tetanus shot was 2014 we did discuss with him the shingles vaccination have asked him to check with his insurance to see if they cover the cost for him. COLON CANCER SCREENING he last had a colonoscopy at age 48 he would like us to get that scheduled for him at this time. He prefers having this done in [facility] site. HEMATURIA I actually saw him quite a few years ago when I was working at the other clinic here in [facility] he had a full and complete evaluation including CT scan and cystoscopy and they felt that this wasbenign hematuria. PSA test patient states that this was checked at work and again hopefully he brings in his lab test for us to review We discussed the value of routine eye examinations and dental checkups. Review of Systems patient's only current complaints or concerns regarding hypertension which at homehe has been high on quite a few occasions here in the office he has been high and he is willing to start medications. Otherwise no significant headaches visual change or hearing changes No fevers chills coughs or colds no shortness of breath or chest pain no palpitations No appetite disturbance no weight changes no nausea or vomiting no constipation no diarrhea no hemorrhoids no blood in the stool No particular difficulty passing his urine No unusual aches or pains fluid retention. Objective Physical Exam he is alert he appears comfortable his vital signs show the following Blood pressure 164/110 Pulse 108 regular rate and rhythm Temp 97.8 Weight 262 pounds BMI is 35.5 O2 sats 96% room air at rest Ears are clear free of erythema cerumen Pupils equal reactive conjunctiva clear Tongue is moist throat is clear dentition reasonable good shape oral cavity size is modest Neck no adenopathy no thyromegaly no carotid bruits no masses Lungs are clear without wheeze rales or rhonchi Cardiac is regular rate and rhythm with a heart murmur Abdomen soft nontender no hepatosplenomegaly no masses no obvious hernias Extremities joints and skin within relative normal limits Laboratory test he will bring to us his recent lab test via work Assessment/Plan Diagnoses and all orders for this visit: Encounter for wellness examination in adult Primary hypertension - hydroCHLOROthiazide (HYDRODIURIL) 25 MG tablet; Take 1/2 a day for the first ten days then ONE pill a day in the AM for blood pressure - lisinopril (Prinivil) 20 MG tablet; Take 1/2 tab ONCE a day for the first ten days then ONE full tab daily thereafter for blood pressure Colon cancer screening - polyethylene glycol (GoLYTELY) 236 g solution; Please follow the directions on your [facility] colonoscopy prep sheet. - Ambulatory External Referral The overall assessment is encounter for wellness evaluation with primary diagnosis of hypertension We will start him on hydrochlorothiazide lisinopril he was given 3 months worth we have asked him come back to the office before the end of the year for repeat examination blood pressure check and appropriate lab testing. We will send to the [facility] a request for him to have a colonoscopy we went through the testing with him a GoLYTELY prep and prep sheet were written for him. documented in this encounter Plan of Treatment Scheduled Referrals Name Type Priority Associated Order Schedule Diagnoses Ambulatory External Outpatient Referral Routine Colon cancer O rdered: Referral screening 03/05/2021 documented as of this encounter Visit Diagnoses Diagnosis Encounter for wellness examination in ad ult - Primary Primary hypertension Unspecified essential hypertension Colon cancer screening Special screening for malignant neoplasm s, colon documented in this encounter Care Teams Morgue Technician Relationship Specialty Start Date End Date Racheal Vásquez MD PCP - General Family Medicine 04/05/[address] [place] [address] documented as of this encounter
--- NOTE | 2022-02-05 11:56 | W.PM.SLEEP ---
Sleep Study Details Details Interpreting Provider: Ravindra Arriaga MD Date of Sleep Study: 01/23/22 Sleep Study Details: STUDY TYPE:? Home ? BMI:? Not recorded ORDERING PROVIDER:? Yayo INDICATION:? Concerns about sleep apnea ? SLEEP SUMMARY:? 421.6 monitored minutes RESPIRATORY SUMMARY:? AHI 28. The entire study was done in the supine position. Low oxygen 76% 6.7% of study oxygen was less than 90%, 2.1% of study oxygen less than 85%, and 0.3% of study oxygen less than 80% Snores% 1.4 PERIODIC LIMB MOVEMENTS OF SLEEP:? Not recorded CARDIAC:? Range 52 to 89, mean 61.8 IMPRESSION:? Moderate obstructive sleep apnea with significant desaturations. RECOMMENDATION: AutoSet CPAP at a pressure of 4-17. A dental appliance may be effective but if chosen should have a follow-up study afterwards with the appliance in place.
== END 2022-01-23 19:33 | disposition home or self-care (01) ==
PROVIDERS: PCP Nurse Practitioner Family; Visit Provider Nurse Practitioner Family
DX: G47.33 Obstructive sleep apnea (adult) (pediatric) (principal)
CPT/HCPCS: 95806

== ENCOUNTER 2022-02-07 14:04 | Outpatient (CLI) | payer BC, SELFPAY ==
--- OUTSIDE RECORDS SUMMARY | 2022-02-07 14:27 | XMS_ITS | Encounter Summary ---
:1960 Author Organization [facility] Address [address] [place] [address] Care Team Providers Name Role Phone Elsewhere, Pcp Primary Care Provider Unavailable Reason for Visit Reason Comments lab results Encounter Details Date Type Department Care Team Description 12/12/2021 Clinical Communication Department of Nieves Hunter l ab results Orthopedic Surgery [facility] [place] DN.P. [address] [address] [phone] Social History Tobacco Use Types Packs/Day Years [...] you attend pentecostal or Patient refused 2021 jew services? Do [...] or slept in a assisted (including now)? Education Answer Date Recorded What is the highest level of school you have completed or 12 th grade 04/11/2021 the highest degree you have received? 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 - 12/12/2021 8:37 AM CDT Talon notified of lab results per Nieves Hunter DNP. He verbalizes understanding and has no further questions or concerns. Telephone Encounter - Yasmine Meyer R.N. - 12/12/2021 8:37 AM CDT ----- Message from Nieves Hunter APRN, C.N.P., D.N.P. sent at 12/11/2021 10:11 PM CDT ----- Hey- can you let Talon know that his lab work is normal (CRP/Sed rate) documented in this encounter Plan of Treatment Not on filedocumented as of this encounter Visit Diagnoses Not on filedocumented in this encounter Care Teams Roving Sizer Relationship Specialty Start Date End Date Elsewhere, Pcp PCP - General 06/07/19 documented as of this encounter
--- OUTSIDE RECORDS SUMMARY | 2022-02-07 14:27 | XMS_ITS | Encounter Summary ---
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 Do [...] at Date Recorded Male 06/23/2021 7:46 PM TIER OVER documented as of this encounter Last Filed [...] Sanches M.D. - 01/03/2022 10:45 AM CDT Package Dyer Medical Examination SUBJECTIVE Hussein Whittaker is a 61 y.o. 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 The patient reports problems - HTN for several years on meds. No symptoms reported. The following portions of the patient's history were reviewed and updated as appropriate: allergies,current medications, family history, medical history, social history, surgical history, and problem list. 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 Color vision is normal. Field [...] but periodic monitoring required due to HTN. 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 Restrictions and [...] Primary documented in this encounter Care Teams Plater Barrel Relationship Specialty Start Date End Date Elsewhere, Pcp PCP - General 06/07/19 documented as of this encounter
--- OUTSIDE RECORDS SUMMARY | 2022-02-07 14:27 | XMS_ITS | Clinical Summary ---
:1960 Author Organization [facility] Address [address] [place] [address] Care Team Providers Name Role Phone Elsewhere, Pcp Primary Care Provider Unavailable Source Comments Patient records contain information from all sites at [facility]. For routine questions regarding patient records, call [phone] during business hours, M-F 8:00 AM - 5:00 PM Central Time. Record requests for emergency care only can be directed to [phone] at any time.[facility] Allergies Active Allergy Reactions Severity Noted Date Comments Ibuprofen Hives 04/08/2019 Green gel capsu les only Nyquil Hives 03/05/2011 Medications Medication Sig Dispensed Refills Start Date End Date Status omeprazole (for_PriLOSEC) Take 1 capsule 0 7 Active 20 mg capsule by mouth daily. lisinopriL Take 20 mg by 0 03/05/2021 Acti ve (PRINIVIL,ZESTRIL) 20 mg mouth daily. tablet hydroCHLOROthiazide Take 25 mg by 0 03/05/2021 Active (HYDRODIURIL) 25 mg tablet mouth daily. Active Problems Problem Noted Date Pain Knee Left 09/18/2021 Overview: Added automatically from request for nikia june [id number] Arthroplasty Total Knee Replacement Status Post Left 0 09/18/2021 Overview: Added automatically from request for nikia june [id number] Primary Osteoarthritis Knee Left 06/28/2021 Overview: Added automatically from request for nikia june [id number] Morbid Severe Obesity Due To Excess Calories Hypertension Essential Primary 04/10/2021 Gastroesophageal Reflux Disease Without Esophagitis Diverticulosis Of Large Intestine Without Perforation Or Abscess Without 03/05/2021 Bleeding Cyst Of Kidney Acquired 03/05/2021 Encounters Date Type Specialty Care Team Description 01/29/2022 Office Visit Orthopedic Surgery Laurie Dumont Arthrop lasty Total L, GLOBAL HUMAN RESOURCES DIRECTOR, Knee Replacemen t C.N.P., D.N.P. Status Post L eft (Primary Dx) 01/24/2022 Diagnostic Otorhinolaryngology Kirstin Pacheco Hea ring Mine Bailey M.D. Conduct Alvaro Snell, Sensorineural Au.D. 01/03/2022 Office Visit Occupational Medicine Sandra Sanches Depar tment Of Adrian Bui Transportation Examination Department Of [employer] Vehicles (Prima ry Dx) 01/03/2022 Office Visit Occupational Medicine Sandra Sanches Comme rcial Health Technician Adrian Bui Medical Exam (Primary Dx) 12/31/2021 Clinical Otorhinolaryngology Neha Freeman Communication J 12/24/2021 Diagnostic Otorhinolaryngology Sim Renee Loss He aring Mine Campbell Conduct Alvaro Snell, Sensorineural Au.D. 12/14/2021 Clinical Support Physical Medicine and Rosy Mijares imary Rehabilitation Dk Bui Osteoarthriti s Knee M.DFarshad Left Juanpablo Pang, P.T. 12/12/2021 Clinical Orthopedic Surgery Nieves Hunter lab resul ts Communication L, ANA, C.N.P., D.N.P. 12/11/2021 Office Visit Orthopedic Surgery Peter Mijares sty Total Dk Bui Knee Replacemen t Adrian Status Post Left Nieves Hunter (Primary Dx) L, ANA, C.N.P., D.N.P. 12/04/2021 Clinical Support Physical Medicine and Rosy Mijares immarissa Rehabilitation Dk Bui Osteoarthriti s Knee M.DFarshad Left Juanpablo Pang, P.T. 11/30/2021 Clinical Orthopedic Surgery Eric Mijares M.D. 11/29/2021 Clinical Support Physical Medicine and Rosy Mijares imary Rehabilitation Dk Bui Osteoarthriti s Knee M.DFarshad Left Juanpablo Pang P.T. 11/27/2021 Clinical Support Physical Medicine and Maryana, Rosy imary Rehabilitation Dk Bui, Osteoarthriti s Knee M.D. Left Yasmine Cherry P.T. 11/21/2021 Comprehensive Physical Medicine and Maryana, Arthr oplasty Total Knee Replacement Status Post Left; Visit Rehabilitation Dk Bui, Pain Knee Lef t Juanpablo Hunt P.Roger. 11/20/2021 Office Visit Orthopedic Surgery Nieves Hunter Total Knee Replacement Status Post Left (Primary Dx); L, GLOBAL HUMAN RESOURCES DIRECTOR, Follow Up Exami [facility] Postoperative Visit C.N.P., D.N.P. Laurie Dumont, GLOBAL HUMAN RESOURCES DIRECTOR, C.N.P., D.N.P. 11/08/2021 Clinical Support Physical Medicine and Maryana, Rosy imary Rehabilitation Dk M, Osteoarthriti s Knee M.DFarshad Left Maria Luisa Chaparro, P.T. from Last 3 Months Immunizations Name Administration [...] Neg Hx Relation Name Status Comments Brother Jayjay Mother (Age 68) Cause of ; heart [...] you attend jainism or Patient refused 2021 yazidism services? 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 Vital Signs Vital Sign Reading [...] 01/03/2022 10:23 AM CDT Plan of Treatment Health Maintenance Due Date Last Done Comments CT Colonography 1960 Cologuard 1960 FIT 1960 HIV Screening 1960 Hepatitis C Screening 1960 Lipid (Cholesterol) 1960 Screening Zoster Vaccines (1 of 2) 2008 COVID-19 Vaccine (5 - 12/14/2021 10/19/2021, 04/11/2021, Booster for Pfizer series) 09/05/2020, Additiona l history exists Influenza Vaccine (#1) 2022 02/24/2021, 04/05/2019, 02/28/2018, [...] 04/18/2026 Depression Screening Completed 07/17/2021 (Annual PHQ-2) Pneumococcal vaccine (0-64 Aged Out No lo nger eligible years) based on patient 's age to complete this topic Medical Devices Implanted Type Area Window Machine Operator Device Shelf Model / Identifier Expiration Serial / Date Lot Hardware E.G. Hardware Left: Pins/Screws/R e.g. Wrist ods pins/screws/ rods Description: Wrist fracture - open. open reduction and internal fixation of left wrist fracture 1994 [employer]lon Tritanium Symmetric Patella Knee Implant Left: Knee Str yker [id number] 06/28/2025 [id number] / Implanted: Qty: 1 on 08/06/2021 by Dk Perez M.D. at [facility] / [id number] Procedures Procedure Name Priority Date/Time Associated Diagnosis Comme nts URINALYSIS, DIPSTICK Routine 01/03/2022 10:07 Res ults for this AM CDT procedure are i n the results section. C-REACTIVE PROTEIN Routine 12/11/2021 4:13 Arthroplasty Total Results for this (CRP), S/P PM CDT Knee Replacement procedure a re in Status Post Left the results section. SEDIMENTATION RATE, B Routine 12/11/2021 4:13 Arthroplasty Tot al Results for this PM CDT Knee Replacement procedure a re in Status Post Left the results section. from Last 3 Months Results [...] 8.0 01/03/2022 10:07 AM CDT RWOM Specific [place] 1.020 1.001 - 1.035 01/03/2022 10:07 AM CDT RWOM Urobilinogen 0.2 0.2 - 1.0 mg/dL 01/03/2022 10:07 AM C DT RWOM Specimen Anatomical Collection Method Collection Time Receive d Time (Source) Location / / Volume Laterality Urine 01/03/2022 10:07 01/03/2022 AM CDT 10:14 AM CDT Generic Rals LAB URINE ORDERABLES Performing Organization Address City/State/ZIP Code Phon e Number [facility] [address] [place] [address] MEDICINE [facility] [place] [address] Occupational Medicine [address] Sedimentation Rate (12/11/2021 4:13 PM CDT) Analysis Performed At Patho logist Time Signature Sedimentation 14 0 - 22 12/11/2021 RDWG Rate, B mm/1 h 7:48 PM CDT Specimen Anatomical Collection Method Collection Time Receive d Time (Source) Location / / Volume Laterality Blood (Blood, 12/11/2021 4:13 PM 12/12/19 7:15 Venous) CDT PM CDT Rosaura Mello APRN.N.P., D.N.P. LAB BLOOD ADD-ON Performing Organization Address City/[facility]/ZIP Code Phon e Number [facility]- [address] [address] [facility] [place] [address] System in [place] 70Tae Guidovard CRP (C-Reactive Protein) (12/11/2021 4:13 PM [...] Organization Address City/State/ZIP Code Phon e Number [facility]- [address] [place] [id number] [place] [address] System [address] from Last 3 Months Insurance Payer Benefit Plan / Subscriber ID Effective Phone Address T e Group Dates TRAVELERS TRAVELERS [id number] 2021-Pre [address] Indemn ity INSURANCE INSURANCE sent [id number] [place] [address] [facility] [id number] 2019-Pres [phone] [address] BLUE SHIELD ent [phone] [place] [address] Hussein Whittaker Workers Comp Self [address] [place] [phone] Advance Directives For more information, please contact: [phone] Latest Code Status on File Code Status Date Activated Date Inactivated Comments Full Code 08/06/2021 12:13 PM 08/07/2021 2:17 PM Full Code: Not Discussed Due to: Patient not available Care Teams Lab Support Service Tech Relationship Specialty Start Date End Date Elsewhere, Pcp PCP - General 06/07/19
--- OUTSIDE RECORDS SUMMARY | 2022-02-07 14:27 | XMS_ITS | Encounter Summary ---
:1960 Author Organization [facility] Address [address] [place] [address] Care Team Providers Name Role Phone Elsewhere, Pcp Primary Care Provider Unavailable Reason for Visit Reason Comments Other Hearing Loss Encounter Details Date Type Department Care Team Description 01/24/2022 Diagnostic Department of Leo Pacheco M.D. [address] [place] [address] [place] [phone] Loss Hearing Mixed Otorhinolaryngology in Alvaro Snowden AuWillie [address] [place] [address] Conduct Sensorineural [place], [place] [address] [place] [phone] Social History Tobacco Use Types Packs/Day [...] you attend taoist or Patient refused 2021 taoism services? Do [...] slept in a group home (including now)? Education Answer Date Recorded What is the highest level of school you have completed or 12 th grade 04/11/2021 the highest degree you have received? 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 - 01/24/2022 3:00 PM CDT Hussein Whittaker is here today for a hearing aid fitting. We reviewed hearing aid body parts, cleaning accessories, charging, insertion and removal. The hearing aids were programmed to have multiple programs: all-around, restaurant, outdoor and ultra focus. Verifit was run to ensure best fit. Adjus tments were made to match NAL-NL1 targets and he felt that these settings were tolerable. We connected the aids to his phone and matteo so that he can make adjustments on the go. We reviewed the purchase agreement. he is scheduled for a follow-up in 2-3 weeks. HE will set up his follow up appointments onhis way out. he was encouraged to contact our office with any questions in the meantime. [employer] customs by Re[employer] HS rechargeable Right SN: [id number] Left SN: [id number] Repair warranty exp: 01/24/2025 L&D warranty exp: 01/24/2025 Ink Blender: 01/24/2025 Repair warranty exp: 01/24/2025 L&D warranty exp: 01/24/2023 Adjustment trial end date: 03/11/2022 documented in this encounter Plan of Treatment Not on filedocumented as of this encounter Visit Diagnoses Diagnosis Loss Hearing Mixed Conduct Sensorineural documented in this encounter Care Teams Residential Director Relationship Specialty Start Date End Date Elsewhere, Pcp PCP - General 06/07/19 documented as of this encounter
--- OUTSIDE RECORDS SUMMARY | 2022-02-07 14:27 | XMS_ITS | Encounter Summary ---
:1960 Author Organization [facility] Address [address] [place] [address] Care Team Providers Name Role Phone Elsewhere, Pcp Primary Care Provider Unavailable Encounter Details Date Type Department Care Team Description 12/31/2021 Clinical Communication Department of Sj[place]rom, Otorhinolaryngology in [address] [phone] Social History Tobacco Use Types Packs/Day [...] you attend scientologist or Patient refused 2021 jehovah's witness services? 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
--- OUTSIDE RECORDS SUMMARY | 2022-02-07 14:27 | XMS_ITS | Encounter Summary ---
:1960 Author Organization [facility] Address [address] [place] [address] Care Team Providers Name Role Phone Elsewhere, Pcp Primary Care Provider Unavailable Reason for Visit Reason Comments Neighborhood Aide's License Exam Mirza Equipment Encounter Details Date Type Department Care Team Description 01/03/2022 Office Visit Department of Sandra Sanches, Neighborhood Aide Occupational Medicine MWillie Medical Exam (Primary in [place], [facility] ta [address] [facility] Dx) [address] [place], [place] [phone] Social History Tobacco Use Types Packs/Day Years [...] you attend bahai or Patient refused 2021 mosque services? 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 - 01/03/2022 10:15 AM CDT DOT ua for [employer] Equipment documented in this encounter Plan of [...] 8.0 01/03/2022 10:07 AM CDT RWOM Specific [place] 1.020 1.001 - 1.035 01/03/2022 10:07 AM CDT RWOM Urobilinogen 0.2 0.2 - 1.0 mg/dL 01/03/2022 10:07 AM C DT RWOM Specimen Anatomical Collection Method Collection Time Receive d Time (Source) Location / / Volume Laterality Urine 01/03/2022 10:07 01/03/2022 AM CDT 10:14 AM CDT Generic [facility] LAB URINE ORDERABLES Performing Organization Address City/State/ZIP Code Phon e Number [facility] [address] [place] [address] [place] [address] Occupational Medicine [address] documented in this encounter Visit Diagnoses Diagnosis Neighborhood Aide Medical Exam - Primary documented in this encounter Care Teams Rib Matcher And Fitter Relationship Specialty Start Date End Date Elsewhere, Pcp PCP - General 06/07/19 documented as of this encounter
--- OUTSIDE RECORDS SUMMARY | 2022-02-07 14:27 | XMS_ITS | Encounter Summary ---
:1960 Author Organization [facility] Address [address] [place] [address] Care Team Providers Name Role Phone Elsewhere, Pcp Primary Care Provider Unavailable Reason for Visit Reason Comments Arthroplasty Doing well and needs return to work paperwork Follow-up Doing well and needs return to work paperwork Appointment Request (Routine) - Closed Specialty Diagnoses / Procedures Referred By Contact Refer red To Contact Preventive Medicine Diagnoses n/a [facility] Procedures n/a Referral ID Status Reason Start Date Expiration Date Visits Requ ested Visits Authorized [id number] Closed 01/23/2022 01/23/2023 1 1 Encounter Details Date Type Department Care Team Description 01/29/2022 Office Visit Department of Laurie Dumont Arthropla sty Total Knee Orthopedic Surgery in [facility], C.N.P., Repla cement Status Post Arun Garcia D.N.P. Left (Primary Dx) [address] [place] [phone] Social History Tobacco Use Types Packs/Day Years [...] you attend buddhism or Patient refused 2021 yazidi services? Do you belong to any clubs or No 12/20/2021 organizations such as buddhism groups, unions, fraNuka Indstries or athletic groups, or school groups? 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 - 01/29/2022 2:30 PM CDT SUBJECTIVE CHIEF COMPLAINT / REASON FOR VISIT Hussein Whittaker is a 61 y.o. male who presents for evaluation of Arthroplasty and Follow-up of the Left Knee (Doing well and needs return to work paperwork). HISTORY OF PRESENT ILLNESS Hussein is a pleasant 61 y.o. male who is status post robotically assisted, CT- guided, left total knee arthroplasty on 08/06/2021, and left knee manipulation under anesthesia on 10/03/2021. He has beendoing well postoperatively, he continues his home exercises. This is a work comp injury so is here for an updated work ability form. OBJECTIVE PHYSICAL EXAMINATION General: Patient is in no distress. Capable of full communication without difficulty. Patient is polite and cooperative. Extremities: Left knee surgical incision is well healed without any obvious signs of infection. Leftknee flexion is 0-120??, and stable to varus/valgus stress. No neurovascular compromise distally. Neuro: Alert and oriented x3. DIAGNOSTICS ASSESSMENT / PLAN #1 Arthroplasty Total Knee Replacement Status Post Left Hussein is a very pleasant 61-year-old male who is status post robotically assisted, CT-guided, lefttotal knee arthroplasty on 08/06/2021 and left knee manipulation under anesthesia on 10/03/2021. A work ability form was completed upon his request stating he is unable to kneel or crawl on his knee, no squatting/stooping past at 90 degree angle, no deep squatting. These are permanent restrictions. These restrictions will be in effect on February 11, when he plans to return to work. Since he is doing so well postoperatively, we will plan to see him back on an as-needed basis for his knee. He is in agreement with this plan, all questions answered. documented in this encounter Plan of Treatment Not on filedocumented as of this encounter Visit Diagnoses Diagnosis Arthroplasty Total Knee Replacement Stat us Post Left - Primary documented in this encounter Care Teams Postdoctoral Research Fellow Relationship Specialty Start Date End Date Elsewhere, Pcp PCP - General 06/07/19 documented as of this encounter
--- OUTSIDE RECORDS SUMMARY | 2022-02-07 14:27 | XMS_ITS | Encounter Summary ---
:1960 Author Organization [facility] Address [address] [place] [address] Care Team Providers Name Role Phone Elsewhere, Pcp Primary Care Provider Unavailable Reason for Visit Physical Therapy (Routine) - Authorized Specialty Diagnoses / Procedures Referred By Contact Refer red To Contact Diagnoses Primary Osteoarthritis Knee Left Dk Mijares M.D. [facility] Procedures PT Ongoing treatment [address] [place] [address] Referral ID Status Reason Start Date Expiration Date Visits V isits Requested Authorized [id number] Authorized 08/10/2021 05/18/2022 40 40 Encounter Details Date Type Department Care Team Description 12/04/2021 Clinical Support Department of Dk Mijares M.D. [address] [place] [phone] Primary Rehabilitation Juanpablo Pang, P.T. [address] [place] [phone] Osteoarthritis Knee Services in [address] [phone] Social History Tobacco Use Types Packs/Day Years [...] you attend hoahaoism or Patient refused 2021 mandaen services? Do you belong to any clubs or No 12/20/2021 organizations such as hoahaoism groups, unions, fraMensajeros Urbanos or athletic groups, or school groups? 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 We did discuss this with his business control specialist, Dr. Mijares. He feels he may [...] Left documented in this encounter Care Teams Library Media Specialist Relationship Specialty Start Date End Date Elsewhere, Pcp PCP - General 06/07/19 documented as of this encounter
--- OUTSIDE RECORDS SUMMARY | 2022-02-07 14:27 | XMS_ITS | Encounter Summary ---
:1960 Author Organization [facility] Address [address] [place] [address] Care Team Providers Name Role Phone Elsewhere, Pcp Primary Care Provider Unavailable Reason for Visit Reason Comments Hearing Loss Outpatient (Routine) - Authorized Specialty Diagnoses / Procedures Referred By Contact Refer red To Contact Audiology Diagnoses Loss Hearing Mixed Conduct Sensorineural Alvaro Snell Au.D. [facility] [address] [place] [phone] Referral ID Status Reason Start Date Expiration Date Visits V isits Requested Authorized [id number] Authorized 10/29/2021 10/29/2022 1 1 Encounter Details Date Type Department Care Team Description 12/24/2021 Diagnostic Department of Sim Renee M. D. [address] [place] [phone] Loss Hearing Mixed Otorhinolaryngology in [facility] Alvaro Snell Au.D. [address] [place] [phone] Conduct Sensor[address] [phone] Social History Tobacco Use Types Packs/Day [...] or relatives? How often do you attend oriental orthodox or Patient refused 2021 yazidism services? 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
--- OUTSIDE RECORDS SUMMARY | 2022-02-07 14:27 | XMS_ITS | Encounter Summary ---
:1960 Author Organization [facility] Address [address] [place] [address] Care Team Providers Name Role Phone Elsewhere, Pcp Primary Care Provider Unavailable Reason for Visit Physical Therapy (Routine) - Authorized Specialty Diagnoses / Procedures Referred By Contact Refer red To Contact Diagnoses Primary Osteoarthritis Knee Left Dk Mijares M.D. [facility] Procedures PT Ongoing treatment [address] [place] [phone] Referral ID Status Reason Start Date Expiration Date Visits V isits Requested Authorized [id number] Authorized 08/10/2021 05/18/2022 40 40 Encounter Details Date Type Department Care Team Description 11/29/2021 Clinical Support Department of Dk Mijares M.D. [address] [place] [phone] Primary Rehabilitation Juanpablo Pang, P.T. [address] [place] [phone] Osteoarthritis Knee Services in [address] [phone] Social History Tobacco Use Types Packs/Day Years [...] you attend spiritism or Patient refused 2021 cheondoism services? Do you belong to any clubs or No 12/20/2021 organizations such as spiritism groups, unions, fraBranching Minds or athletic groups, or school groups? 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 - 11/29/2021 8:45 AM CDT Physical Therapy Outpatient Treatment Note SUBJECTIVE Patient's Name: Hussein Whittaker Referring Provider: Dk Mijares M.D. Visit Diagnosis: 1. Primary Osteoarthritis Knee Left Payor: [facility] / Plan: [facility] [place] / Product Type: PPO / PT Next Certification Date: 08/08/2021 [facility] Visit Count: 16 Patient comments: Taoln comes into therapy today stating that they [...] Left documented in this encounter Care Teams Needle Valve Operator Relationship Specialty Start Date End Date Elsewhere, Pcp PCP - General 06/07/19 documented as of this encounter
--- OUTSIDE RECORDS SUMMARY | 2022-02-07 14:27 | XMS_ITS | Encounter Summary ---
:1960 Author Organization [facility] Address [address] [place] [address] Care Team Providers Name Role Phone Elsewhere, Pcp Primary Care Provider Unavailable Reason for Visit Physical Therapy (Routine) - Authorized Specialty Diagnoses / Procedures Referred By Contact Refer red To Contact Diagnoses Primary Osteoarthritis Knee Left Dk Mijares M.D. [facility] Procedures PT Ongoing treatment [address] [place] [address] Referral ID Status Reason Start Date Expiration Date Visits V isits Requested Authorized [id number] Authorized 08/10/2021 05/18/2022 40 40 Encounter Details Date Type Department Care Team Description 12/14/2021 Clinical Support Department of Dk Mijares M.D. [address] [place] [phone] Primary Rehabilitation Juanpablo Pang, P.T. [address] [place] [phone] Osteoarthritis Knee Services in [address] [phone] Social History Tobacco Use Types Packs/Day Years [...] you attend anglican or Patient refused 2021 cheondoism services? Do you belong to any clubs or No 12/20/2021 organizations such as anglican groups, unions, fraOdeeo or athletic groups, or school groups? 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
--- OUTSIDE RECORDS SUMMARY | 2022-02-07 14:27 | XMS_ITS | Encounter Summary ---
:1960 Author Organization [facility] Address [address] [place] [address] Care Team Providers Name Role Phone Elsewhere, Pcp Primary Care Provider Unavailable Encounter Details Date Type Department Care Team Description 11/30/2021 Clinical Communication Department of Dk Mijares , Orthopedic Surgery in M.DFarshad [place], [place] 701 [facility] [address] [place] [phone] Social History Tobacco Use Types Packs/Day Years [...] you attend yarsanism or Patient refused 2021 synagogue services? 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 - 11/30/2021 2:07 PM CDT Spoke with Eda Virgen from [facility] and relayed Laurie Dumont's updated restrictions. Telephone [...] CDT Reason for Communication: Eda Virgen from [facility] called stating that she got the doctors [...] on filedocumented in this encounter Care Teams Billing Checker Relationship Specialty Start Date End Date Elsewhere, Pcp PCP - General 06/07/19 documented as of this encounter
--- OUTSIDE RECORDS SUMMARY | 2022-02-07 14:27 | XMS_ITS | Encounter Summary ---
:1960 Author Organization [facility] Address [address] [place] [address] Care Team Providers Name Role Phone Elsewhere, Pcp Primary Care Provider Unavailable Reason for Visit Reason Comments Follow-up Procedure Swelling Pain Outpatient (Routine) - Closed Specialty Diagnoses / Procedures Referred By Contact Refer red To Contact Orthopedic Surgery Laurie Dumont APRN, GURVINDERS [facility] C.N.P., D.N.P. [address] [place] [phone] Referral ID Status Reason Start Date Expiration Date Visits Requ ested Visits Authorized [id number] Closed 11/20/2021 11/20/2022 1 1 Encounter Details Date Type Department Care Team Description 12/11/2021 Office Visit Department of Dk Mijares M.D. [address] [place] [phone] Arthroplasty Total Orthopedic Surgery in Nieves Hunter APRN, C.N.P., D.N.P. [address] [place] [phone] Knee Replacement Yuki Garcia, Status Post [facility] (Primary Dx) [id number] [place] [address] [place] [phone] Social History Tobacco Use Types Packs/Day Years [...] or slept in a chcf (including now)? Education Answer Date Recorded What is the highest level of school you have completed or 12 th grade 04/11/2021 the highest degree you have received? 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 documented as of this encounter Progress [...] Organization Address City/State/ZIP Code Phon e Number [facility]- [facility] [place] [address] [address] [place] [address] System in [place] [address] CRP (C-Reactive Protein) (12/11/2021 4:13 PM CDT) P athologist Signature C-Reactive <3.0 <=8.0 mg/L 12/11/2021 CNFL Protein (CRP), 4:39 PM CDT P Specimen Anatomical Collection Method Collection Time Receive d Time (Source) Location / / Volume Laterality Blood (Blood, 12/11/2021 4:13 PM 12/12/19 4:14 Venous) CDT PM CDT Nieves Hunter APRN C.N.P., D.N.P. LAB BLOOD ADD-ON Performing Organization Address City/State/[facility] Code Phon e Number [facility]- [address] [place] [phone] [place] [address] [place] [address] [address] documented in this encounter Visit Diagnoses Diagnosis Arthroplasty Total Knee Replacement Stat us Post Left - Primary documented in this encounter Care Teams Credit Specialist Relationship Specialty Start Date End Date Elsewhere, Pcp PCP - General 06/07/19 documented as of this encounter
--- OUTSIDE RECORDS SUMMARY | 2022-02-07 14:28 | XMS_ITS | Encounter Summary ---
:1960 Author Organization [facility] Address [address] [place] [address] Care Team Providers Name Role Phone Elsewhere, Pcp Primary Care Provider Unavailable Reason for Visit Physical Therapy (Routine) - Authorized Specialty Diagnoses / Procedures Referred By Contact Refer red To Contact Diagnoses Primary Osteoarthritis Knee Left Dk Mijares M.D. [facility] Procedures PT Ongoing treatment [address] [place] [phone] Referral ID Status Reason Start Date Expiration Date Visits V isits Requested Authorized [id number] Authorized 08/10/2021 05/18/2022 40 40 Encounter Details Date Type Department Care Team Description 10/09/2021 Clinical Support Department of Dk Mijares M.D. [address] [place] [phone] Primary Rehabilitation Maria Luisa Chaparro, P.T. Osteoarthritis Knee Services in [place] [address] [place] [phone] Social History Tobacco Use Types Packs/Day Years [...] attend oriental orthodox or Patient refused 2021 evangelical services? Do you belong to any clubs or No 12/20/2021 organizations such as oriental orthodox groups, unions, fraTarquin Group or athletic groups, or school groups? 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 - 10/09/2021 12:45 PM CDT Physical Therapy Outpatient Treatment Note SUBJECTIVE Patient's Name: Hussein Whittaker Referring Provider: Dk Mijares M.D. Visit Diagnosis: 1. Primary Osteoarthritis Knee Left Payor: [employer]EL[employer] INSURANCE / Plan: [employer]EL[employer] INSURANCE / Product Type: Indemnity / PT Next Certification Date: 08/08/2021 [facility] Visit Count: 3 Patient comments: Pt reports [...] documented in this encounter Care Teams Senior Functional Analyst Relationship Specialty Start Date End Date Elsewhere, Pcp PCP - General 06/07/19 documented as of this encounter
--- OUTSIDE RECORDS SUMMARY | 2022-02-07 14:28 | XMS_ITS | Encounter Summary ---
:1960 Author Organization [facility] Address [address] [place] [address] Care Team Providers Name Role Phone Elsewhere, Pcp Primary Care Provider Unavailable Reason for Referral Outpatient (Routine) - Closed Specialty Diagnoses / Procedures Referred By Contact Refer red To Contact Orthopedic Surgery Diagnoses recheck Laurie Dumont, ANA, DALJIT [facility] C.N.P., D.N.P. [address] [place] [phone] Referral ID Status Reason Start Date Expiration Date Visits Requ ested Visits Authorized [id number] Closed 10/03/2021 10/03/2022 1 1 Reason for [...] Expiration Date Visits Requ ested Visits Authorized [id number] 1 1 Encounter Details Date Type Department Care Team Description 10/03/2021 Hospital Encounter [facility] MAIN OR Dk Mijares Pain Knee Left; Zehra Bui M.D. Arthroplasty Total Knee Replacement Stat us Post Left JULIAN LASSITER [address] [place] [phone] JULIAN Lassiter [phone] Social History Tobacco Use Types Packs/Day [...] you attend sikh or Patient refused 2021 mandaen services? 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
--- OUTSIDE RECORDS SUMMARY | 2022-02-07 14:28 | XMS_ITS | Encounter Summary ---
:1960 Author Organization [facility] Address [address] [place] [address] Care Team Providers Name Role Phone Elsewhere, Pcp Primary Care Provider Unavailable Reason for Referral Outpatient (Routine) - Closed Specialty Diagnoses / Procedures Referred By Contact Refer red To Contact Diagnoses Pain Knee Left Nieves Hunter, ANA, DALJIT [facility] Region Procedures DX Knee Left 3 Views C.N.P., D.N.P. [address] [place] [phone] Referral ID Status Reason Start Date Expiration Date Visits Requ ested Visits Authorized [id number] Closed 10/23/2021 10/23/2022 1 1 Reason for Visit Reason Comments Post-op Outpatient (Routine) - Closed Specialty Diagnoses / Procedures Referred By Contact Refer red To Contact Orthopedic Surgery Diagnoses post op Dk Mijares M.D. [facility] Region [address] [place] [phone] Referral ID Status Reason Start Date Expiration Date Visits Requ ested Visits Authorized [id number] Closed 09/18/2021 09/18/2022 1 1 Encounter Details Date Type Department Care Team Description 10/23/2021 Office Visit Department of Nieves Hunter, Pain Knee L eft Orthopedic Surgery in [place] PEREZ.N.PFarshad, (Prim marissa Dx) Arun Garcia D.N.P. [address] [phone] Social History Tobacco Use [...] you attend moravian or Patient refused 2021 latter day services? 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 At this time hewill not be able to return to work and I did write a note to reassess at his return visit. His questions were answered documented in this encounter Plan of Treatment Not on filedocumented as of this encounter Results DX Knee [...] Left documented in this encounter Care Teams Technical Services Coordinator Relationship Specialty Start Date End Date Elsewhere, Pcp PCP - General 06/07/19 documented as of this encounter
--- OUTSIDE RECORDS SUMMARY | 2022-02-07 14:28 | XMS_ITS | Encounter Summary ---
:1960 Author Organization [facility] Address [address] [place] [address] Care Team Providers Name Role Phone Elsewhere, [...] you attend christianity or Patient refused 2021 zoroastrianism services? 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
--- OUTSIDE RECORDS SUMMARY | 2022-02-07 14:28 | XMS_ITS | Encounter Summary ---
:1960 Author Organization [facility] Address [address] [place] [address] Care Team Providers Name Role Phone Elsewhere, Pcp Primary Care Provider Unavailable Reason for Referral Outpatient (Routine) - Closed Specialty Diagnoses / Procedures Referred By Contact Refer red To Contact Diagnoses Pain Knee Left Nieves Hunter APRN, [facility] [place] [facility] Procedures DX Knee Left 3 Views C.N.P., D.N.P. [address] [place] [phone] Referral ID Status Reason Start Date Expiration Date Visits Requ ested Visits Authorized [id number] Closed 10/23/2021 10/23/2022 1 1 Reason for Visit Outpatient (Routine) - Closed Specialty Diagnoses / Procedures Referred By Contact Refer red To Contact Diagnoses Pain Knee Left Nieves Hunter APRN, [facility] [place] [facility] Procedures DX Knee Left 3 Views C.N.P., D.N.P. [address] [place] [phone] Referral ID Status Reason Start Date Expiration Date Visits Requ ested Visits Authorized [id number] Closed 10/23/2021 10/23/2022 1 1 Encounter Details Date Type Department Care Team Description 10/23/2021 Hospital Encounter Department of Nieves Hunter, Pain Knee Left Radiology in [place] PEREZ [place], [place] D.N.P. [address] [phone] Social History Tobacco Use [...] you attend adventist or Patient refused 2021 samaritan services? 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
--- OUTSIDE RECORDS SUMMARY | 2022-02-07 14:28 | XMS_ITS | Encounter Summary ---
:1960 Author Organization [facility] Address [address] [place] [address] Care Team Providers Name Role Phone Elsewhere, Pcp Primary Care Provider Unavailable Reason for Visit Physical Therapy (Routine) - Authorized Specialty Diagnoses / Procedures Referred By Contact Refer red To Contact Diagnoses Primary Osteoarthritis Knee Left Dk Mijares M.D. [facility] Procedures PT Ongoing treatment [address] [place] [phone] Referral ID Status Reason Start Date Expiration Date Visits V isits Requested Authorized [id number] Authorized 08/10/2021 05/18/2022 40 40 Encounter Details Date Type Department Care Team Description 10/11/2021 Clinical Support Department of Dk Mijares M.D. [address] [place] [phone] Primary Rehabilitation Maria Luisa Chaparro, P.T. Osteoarthritis Knee Services in [place] [address] [place] [phone] Social History Tobacco Use Types Packs/Day Years [...] attend jehovah's witness or Patient refused 2021 congregation services? Do you belong to any clubs or No 12/20/2021 organizations such as jehovah's witness groups, unions, fraTripMark or athletic groups, or school groups? 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 - 10/11/2021 12:30 PM CDT Physical Therapy Outpatient Treatment Note SUBJECTIVE Patient's Name: Hussein Whittaker Referring Provider: Dk Mijares M.D. Visit Diagnosis: 1. Primary Osteoarthritis Knee Left Payor: [employer] INSURANCE / Plan: [employer]VEL[employer] INSURANCE / Product Type: Indemnity / PT Next Certification Date: 08/08/2021 [facility] Visit Count: 5 Patient comments: Pt reports [...] Left documented in this encounter Care Teams Tree Puller Relationship Specialty Start Date End Date Elsewhere, Pcp PCP - General 06/07/19 documented as of this encounter
--- OUTSIDE RECORDS SUMMARY | 2022-02-07 14:28 | XMS_ITS | Encounter Summary ---
:1960 Author Organization [facility] Address [address] [place] [address] Care Team Providers Name Role Phone Elsewhere, Pcp Primary Care Provider Unavailable Reason for Visit Reason Comments Hearing Loss Outpatient (Routine) - Authorized Specialty Diagnoses / Procedures Referred By Contact Refer red To Contact Audiology Diagnoses Loss Hearing Bilateral Chica Rodriguez APRN, [facility] C.N.P., D.N.P. [address] [place] [address] Referral ID Status Reason Start Date Expiration Date Visits V isits Requested Authorized [id number] Authorized 10/08/2021 10/08/2022 1 1 Encounter Details Date Type Department Care Team Description 10/18/2021 Diagnostic Department of Chica Rodriguez APRN, C.N.P., D.N.P. [address] [place] [address] Loss Hearing Otorhinolaryngology in [facility] Alvaro Snell Au.D. [address] [place] [phone] Sensorineural [place], [place] Bilateral [address] [place] [phone] Social History Tobacco Use Types Packs/Day [...] you attend religious or Patient refused 2021 sabianist services? Do you belong to any clubs or No 12/20/2021 organizations such as religious groups, unions, fraValley Automotive Investment Group or athletic groups, or school groups? 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
--- OUTSIDE RECORDS SUMMARY | 2022-02-07 14:28 | XMS_ITS | Encounter Summary ---
:1960 Author Organization [facility] Address [address] [place] [address] Care Team Providers Name Role Phone Elsewhere, Pcp Primary Care Provider Unavailable Reason for Visit Physical Therapy (Routine) - Authorized Specialty Diagnoses / Procedures Referred By Contact Refer red To Contact Diagnoses Primary Osteoarthritis Knee Left Dk Mijares M.D. [facility] Procedures PT Ongoing treatment [address] [place] [address] Referral ID Status Reason Start Date Expiration Date Visits V isits Requested Authorized [id number] Authorized 08/10/2021 05/18/2022 40 40 Encounter Details Date Type Department Care Team Description 10/30/2021 Clinical Support Department of Dk Mijares M.D. [address] [place] [phone] Primary Rehabilitation Maria Luisa Chaparro, P.T. Osteoarthritis Knee Services in [place] [address] [place] [phone] Social History Tobacco Use Types Packs/Day Years [...] organizations such as jehovah's witness groups, unions, fraMashMango or athletic groups, or school groups? 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 - 10/30/2021 2:00 PM CDT Physical Therapy Outpatient Treatment Note SUBJECTIVE Patient's Name: Hussein Whittaker Referring Provider: Dk Mijares M.D. Visit Diagnosis: 1. Primary Osteoarthritis Knee Left Payor: [employer]VEL[employer] INSURANCE / Plan: [employer]VEL[employer] INSURANCE / Product Type: Indemnity / PT Next Certification Date: 08/08/2021 [facility] Visit Count: 10 Patient comments: Pt reports [...] Left documented in this encounter Care Teams Refinery Operator Gas Plant Relationship Specialty Start Date End Date Elsewhere, Pcp PCP - General 06/07/19 documented as of this encounter
--- OUTSIDE RECORDS SUMMARY | 2022-02-07 14:28 | XMS_ITS | Encounter Summary ---
:1960 Author Organization [facility] Address [address] [place] [address] Care Team Providers Name Role Phone Elsewhere, Pcp Primary Care Provider Unavailable Reason for Visit Physical Therapy (Routine) - Authorized Specialty Diagnoses / Procedures Referred By Contact Refer red To Contact Diagnoses Primary Osteoarthritis Knee Left Dk Mijares M.D. [facility] Procedures PT Ongoing treatment [address] [place] [phone] Referral ID Status Reason Start Date Expiration Date Visits V isits Requested Authorized [id number] Authorized 08/10/2021 05/18/2022 40 40 Encounter Details Date Type Department Care Team Description 11/06/2021 Clinical Support Department of Dk Mijares M.D. [address] [place] [phone] Primary Rehabilitation Maria Luisa Chaparro, P.T. Osteoarthritis Knee Services in [place] [address] [place] [phone] Social History Tobacco Use Types Packs/Day Years [...] you attend episcopal or Patient refused 2021 episcopalian services? Do you belong to any clubs or No 12/20/2021 organizations such as episcopal groups, unions, franewBrandAnalytics or athletic groups, or school groups? 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 - 11/06/2021 8:30 AM CDT Physical Therapy Outpatient Treatment Note SUBJECTIVE Patient's Name: Hussein Whittaker Referring Provider: Dk Mijares M.D. Visit Diagnosis: 1. Primary Osteoarthritis Knee Left Payor: [employer]VEL[employer] INSURANCE / Plan: [employer]VEL[employer] INSURANCE / Product Type: Indemnity / PT Next Certification Date: 08/08/2021 [facility] Visit Count: 12 Patient comments: Pt reports [...] Left documented in this encounter Care Teams Computer Numerical Control Grinder Relationship Specialty Start Date End Date Elsewhere, Pcp PCP - General 06/07/19 documented as of this encounter
--- OUTSIDE RECORDS SUMMARY | 2022-02-07 14:28 | XMS_ITS | Encounter Summary ---
:[address] [facility] Address [address] [place] [address] Care Team Providers Name Role Phone Elsewhere, Pcp Primary Care Provider Unavailable Reason for Referral Outpatient (Routine) - Authorized Specialty Diagnoses / Procedures Referred By Contact Refer red To Contact Audiology Diagnoses Loss Hearing Mixed Conduct Sensorineural Alvaro Snell Au.D. [facility] [address] [place] [address] Referral ID Status Reason Start Date Expiration Date Visits V isits Requested Authorized [id number] Authorized 10/29/2021 10/29/2022 1 1 Scheduling Instructions 60 minute appointment for a Hearing Aid Consultation Encounter Details Date Type Department Care Team Description 10/29/2021 Orders Only Department of Alvaro Snell Loss Hearing Mixed Otorhinolaryngology in [facility] Payam Conduct [place] [address] [address] (Primary Dx) [address] [place] [phone] [place], [place] [phone] Social History Tobacco Use Types Packs/Day [...] you attend sikhism or Patient refused 2021 judaism services? Do you belong to any clubs or No 12/20/2021 organizations such as sikhism groups, unions, fraUpfront Media Group or athletic groups, or school groups? 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
--- OUTSIDE RECORDS SUMMARY | 2022-02-07 14:28 | XMS_ITS | Encounter Summary ---
:1960 Author Organization [facility] Address [address] [place] [address] Care Team Providers Name Role Phone Elsewhere, Pcp Primary Care Provider Unavailable Encounter Details Date Type Department Care Team Description 10/01/2021 Hospital Encounter Department of Dk Mijares Laboratory Medicine Adrian Bui Preprocedural in [address] Laboratory [place] [phone] (COVID-19) [facility] [phone] [place], [place] (Work) [phone] Social History Tobacco Use [...] or relatives? How often do you attend buddhist or Patient refused 2021 restoration services? 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 Food and Drug Administ ration. Fact sheets for this EUA assay can be fo und at the following links: For Healthcare Providers: https://www.fd a.gov/media/606776/download For Patients: https://www.fda.gov/media/ 221658/download Specimen Anatomical Collection Method Collection Time Receive d Time (Source) Location / / Volume Laterality Varies 10/01/2021 9:51 AM 3:09 (Nasopharynx) CDT PM CDT Dk Mijares M.D. LAB MICROBIOLOGY - GENERAL O RDERABLES Performing Organization Address City/State/ZIP Code Phon e Number [facility]- [address] [place] [address] [phone] [facility] [place] [address] [address] documented in this encounter Visit Diagnoses Diagnosis Encounter For Preprocedural Laboratory E xamination (COVID-19) documented in this encounter Additional Health Concerns Infection Onset Date Last Indicated Resolved Time COVID19 Pending 10/01/2021 10/01/2021 10/01/2021 8:55 PM CDT documented as of this encounter Care Teams Directory Assistance Operator Relationship Specialty Start Date End Date Elsewhere, Pcp PCP - General 06/07/19 documented as of this encounter
--- OUTSIDE RECORDS SUMMARY | 2022-02-07 14:28 | XMS_ITS | Encounter Summary ---
:1960 Author Organization [facility] Address [address] [place] [address] Care Team Providers Name Role Phone Elsewhere, Pcp Primary Care Provider Unavailable Reason for Visit Physical Therapy (Routine) - Authorized Specialty Diagnoses / Procedures Referred By Contact Refer red To Contact Diagnoses Primary Osteoarthritis Knee Left Dk Mijares M.D. [facility] Procedures PT Ongoing treatment [address] [place] [address] Referral ID Status Reason Start Date Expiration Date Visits V isits Requested Authorized [id number] Authorized 08/10/2021 05/18/2022 40 40 Encounter Details Date Type Department Care Team Description 10/05/2021 Clinical Support Department of Dk Mijares M.D. [address] [place] [phone] Primary Rehabilitation Maria Luisa Chaparro, P.T. Osteoarthritis Knee Services [place] [address] [place] [phone] Social History Tobacco Use Types Packs/Day Years [...] 12/20/2021 organizations such as hoahaoism groups, unions, fraiCracked or athletic groups, or school groups? 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
--- OUTSIDE RECORDS SUMMARY | 2022-02-07 14:28 | XMS_ITS | Encounter Summary ---
:1960 Author Organization [facility] Address [address] [place] [address] Care Team Providers Name Role Phone Elsewhere, Pcp Primary Care Provider Unavailable Reason for Visit Physical Therapy (Routine) - Closed Specialty Diagnoses / Procedures Referred By Contact Refer red To Contact Diagnoses Arthroplasty Total Knee Replacement Status Post Left Pain Knee Left Dk Mijares M.D. [facility] Procedures PT Evaluate and treat [address] [place] [address] Referral ID Status Reason Start Date Expiration Date Visits Requ ested Visits Authorized [id number] Closed 09/18/2021 09/18/2022 1 1 Encounter Details Date Type Department Care Team Description 11/21/2021 Comprehensive Visit Department of Naman Mijares M.D. [address] [facility] [place] [phone] Arthroplasty Total Knee Replacement Stat us Post Left; Rehabilitation Juanpablo Pang, P.T. [address] [place] [address] [place] [address] Pain Knee Left Services in [address] [phone] Social History Tobacco Use Types Packs/Day Years [...] you attend presybeterian or Patient refused 2021 cheondoism services? Do you belong to any clubs or No 12/20/2021 organizations such as presybeterian groups, unions, fraCREOpoint or athletic groups, or school groups? 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
--- OUTSIDE RECORDS SUMMARY | 2022-02-07 14:28 | XMS_ITS | Encounter Summary ---
:1960 Author Organization [facility] Address [address] [place] [address] Care Team Providers Name Role Phone Elsewhere, Pcp Primary Care Provider Unavailable Reason for Visit Physical Therapy (Routine) - Authorized Specialty Diagnoses / Procedures Referred By Contact Refer red To Contact Diagnoses Primary Osteoarthritis Knee Left Dk Mijares M.D. [facility] Procedures PT Ongoing treatment [address] [place] [address] Referral ID Status Reason Start Date Expiration Date Visits V isits Requested Authorized [id number] Authorized 08/10/2021 05/18/2022 40 40 Encounter Details Date Type Department Care Team Description 10/10/2021 Clinical Support Department of Dk Mijares M.D. [address] [place] [phone] Primary Rehabilitation Maria Luisa Chaparro, P.T. Osteoarthritis Knee Services [place] [address] [place] [phone] Social History Tobacco Use Types Packs/Day Years [...] you attend methodist or Patient refused 2021 alevism services? Do you belong to any clubs or No 12/20/2021 organizations such as methodist groups, unions, fraSignix or athletic groups, or school groups? 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
--- OUTSIDE RECORDS SUMMARY | 2022-02-07 14:28 | XMS_ITS | Encounter Summary ---
:[address] [facility] Address [address] [place] [address] Care Team Providers Name Role Phone Elsewhere, Pcp Primary Care Provider Unavailable Reason for Visit Auth/Cert Specialty Diagnoses / Procedures Referred By Contact Refer red To Contact Diagnoses Pain Knee Left Arthroplasty Total Knee Replacement Status Post Left Pain Knee Left [M25.562] Arthroplasty Total Knee Replacement Status Post Left [Z96.652] Procedures AL MANIP KNEE JT W ANES MANIPULATION KNEE Referral ID Status Reason Start Date Expiration Date Visits Requ ested Visits Authorized [id number] 1 1 Encounter Details Date Type Department Care Team Description 10/03/2021 Surgery [facility] MAIN OR Dk Mijares, MANIPULATION KNEE [address] [place] [phone] [phone] [place] [phone] (Wo rk) Social History Tobacco Use Types [...] you attend holiness or Patient refused 2021 christianity services? 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
--- OUTSIDE RECORDS SUMMARY | 2022-02-07 14:28 | XMS_ITS | Encounter Summary ---
:1960 Author Organization [facility] Address [address] [place] [address] Care Team Providers Name Role Phone Elsewhere, Pcp Primary Care Provider Unavailable Reason for Visit Physical Therapy (Routine) - Authorized Specialty Diagnoses / Procedures Referred By Contact Refer red To Contact Diagnoses Primary Osteoarthritis Knee Left Dk Mijares M.D. [facility] Procedures PT Ongoing treatment [address] [place] [phone] Referral ID Status Reason Start Date Expiration Date Visits V isits Requested Authorized [id number] Authorized 08/10/2021 05/18/2022 40 40 Encounter Details Date Type Department Care Team Description 10/16/2021 Clinical Support Department of Dk Mijares M.D. [address] [place] [phone] Primary Rehabilitation Maria Luisa Chaparro, P.T. [facility] [place] [address] [place] [phone] Social History Tobacco Use Types Packs/Day Years [...] you attend alevism or Patient refused 2021 yazidism services? Do you belong to any clubs or No 12/20/2021 organizations such as alevism groups, unions, fraAbacus Labs or athletic groups, or school groups? 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
--- OUTSIDE RECORDS SUMMARY | 2022-02-07 14:28 | XMS_ITS | Encounter Summary ---
:1960 Author Organization [facility] Address [address] [place] [address] Care Team Providers Name Role Phone Elsewhere, Pcp Primary Care Provider Unavailable Reason for Visit Physical Therapy (Routine) - Authorized Specialty Diagnoses / Procedures Referred By Contact Refer red To Contact Diagnoses Primary Osteoarthritis Knee Left Dk Mijares M.D. [facility] Procedures PT Ongoing treatment [address] [place] [address] Referral ID Status Reason Start Date Expiration Date Visits V isits Requested Authorized [id number] Authorized 08/10/2021 05/18/2022 40 40 Encounter Details Date Type Department Care Team Description 11/01/2021 Clinical Support Department of Dk Mijares M.D. [address] [place] [phone] Primary Rehabilitation Maria Luisa Chaparro, P.T. Oste[facility] Knee [facility] [place] [address] [place] [phone] Social History Tobacco Use Types Packs/Day Years [...] you attend sikhism or Patient refused 2021 druze services? Do you belong to any clubs or No 12/20/2021 organizations such as sikhism groups, unions, fraBelkin International or athletic groups, or school groups? 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 - 11/01/2021 10:00 AM CDT Physical Therapy Outpatient Treatment Note SUBJECTIVE Patient's Name: Hussein Whittaker Referring Provider: Dk Mijares M.D. Visit Diagnosis: 1. Primary Osteoarthritis Knee Left Payor: [employer] INSURANCE / Plan: [employer] INSURANCE / Product Type: Indemnity / PT Next Certification Date: 08/08/2021 [facility] Visit Count: 11 Patient comments: Pt reports [...] Left documented in this encounter Care Teams Commercial Estimator Relationship Specialty Start Date End Date Elsewhere, Pcp PCP - General 06/07/19 documented as of this encounter
--- OUTSIDE RECORDS SUMMARY | 2022-02-07 14:28 | XMS_ITS | Encounter Summary ---
:1960 Author Organization [facility] Address [address] [place] [address] Care Team Providers Name Role Phone Elsewhere, Pcp Primary Care Provider Unavailable Reason for Referral Outpatient (Routine) - Authorized Specialty Diagnoses / Procedures Referred By Contact Refer red To Contact Audiology Diagnoses Loss Hearing Bilateral Chica Rodriguez APRN, [facility] D.N.P. [address] [place] [address] [place] [address] Referral ID Status Reason Start Date Expiration Date Visits V isits Requested Authorized [id number] Authorized 10/08/2021 10/08/2022 1 1 Encounter Details Date Type Department Care Team Description 10/08/2021 Orders Only Department of [facility] Chica Rodriguez Lo Hearing Bilateral Medicine, [facility] ([facility], in [place] [address] [place] [phone] Social History Tobacco Use Types [...] you attend uatsdin or Patient refused 2021 buddhist services? Do you belong to any clubs or No 12/20/2021 organizations such as uatsdin groups, unions, fraDroid system master or athletic groups, or school groups? 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
--- OUTSIDE RECORDS SUMMARY | 2022-02-07 14:28 | XMS_ITS | Encounter Summary ---
:1960 Author Organization [facility] Address [address] [place] [address] Care Team Providers Name Role Phone Elsewhere, Pcp Primary Care Provider Unavailable Reason for Visit Physical Therapy (Routine) - Authorized Specialty Diagnoses / Procedures Referred By Contact Refer red To Contact Diagnoses Primary Osteoarthritis Knee Left Dk Mijares M.D. [facility] Procedures PT Ongoing treatment [address] [place] [address] Referral ID Status Reason Start Date Expiration Date Visits V isits Requested Authorized [id number] Authorized 08/10/2021 05/18/2022 40 40 Encounter Details Date Type Department Care Team Description 10/25/2021 Clinical Support Department of Dk Mijares M.D. [address] [place] [phone] Primary Rehabilitation Maria Luisa Chaparro, P.T. Osteoarthritis Knee Services [place] [address] [place] [phone] Social History Tobacco Use Types Packs/Day Years [...] you attend methodist or Patient refused 2021 confucianism services? Do you belong to any clubs or No 12/20/2021 organizations such as methodist groups, unions, fraGem Pharmaceuticals or athletic groups, or school groups? 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 - 10/25/2021 9:15 AM CDT Physical Therapy Outpatient Treatment Note SUBJECTIVE Patient's Name: Hussein Whittaker Referring Provider: Dk Mijares M.D. Visit Diagnosis: 1. Primary Osteoarthritis Knee Left Payor: [employer] INSURANCE / Plan: [employer] INSURANCE / Product Type: Indemnity / PT Next Certification Date: 08/08/2021 [facility] Visit Count: 9 Patient comments: [...] Left documented in this encounter Care Teams Heavy Equipment Sales Manager Relationship Specialty Start Date End Date Elsewhere, Pcp PCP - General 06/07/19 documented as of this encounter
--- OUTSIDE RECORDS SUMMARY | 2022-02-07 14:28 | XMS_ITS | Encounter Summary ---
:1960 Author Organization [facility] Address [address] [place] [address] Care Team Providers Name Role Phone Elsewhere, Pcp Primary Care Provider Unavailable Reason for Visit Physical Therapy (Routine) - Authorized Specialty Diagnoses / Procedures Referred By Contact Refer red To Contact Diagnoses Primary Osteoarthritis Knee Left Dk Mijares M.D. [facility] Procedures PT Ongoing treatment [address] [place] [address] Referral ID Status Reason Start Date Expiration Date Visits V isits Requested Authorized [id number] Authorized 08/10/2021 05/18/2022 40 40 Encounter Details Date Type Department Care Team Description 10/22/2021 Clinical Support Department of Dk Mijares M.D. [address] [place] [phone] Primary Rehabilitation Maria Luisa Chaparro, P.T. Osteoarthritis Knee Services [place] [address] [place] [phone] Social History Tobacco Use Types Packs/Day Years [...] you attend sikh or Patient refused 2021 worship services? Do you belong to any clubs or No 12/20/2021 organizations such as sikh groups, unions, fraSterling Consolidated or athletic groups, or school groups? 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 - 10/22/2021 9:45 AM CDT Physical Therapy Outpatient Treatment Note SUBJECTIVE Patient's Name: Hussein Whittaker Referring Provider: Dk Mijares M.D. Visit Diagnosis: 1. Primary Osteoarthritis Knee Left Payor: [employer] INSURANCE / Plan: [employer] INSURANCE / Product Type: Indemnity / PT Next Certification Date: 08/08/2021 [facility] Visit Count: 8 Patient comments: Pt reports [...] Left documented in this encounter Care Teams Electrical Controls Technician Relationship Specialty Start Date End Date Elsewhere, Pcp PCP - General 06/07/19 documented as of this encounter
--- OUTSIDE RECORDS SUMMARY | 2022-02-07 14:28 | XMS_ITS | Encounter Summary ---
:1960 Author Organization [facility] Address [address] [place] [address] Care Team Providers Name Role Phone Elsewhere, Pcp Primary Care Provider Unavailable Reason for Visit Physical Therapy (Routine) - Authorized Specialty Diagnoses / Procedures Referred By Contact Refer red To Contact Diagnoses Primary Osteoarthritis Knee Left Dk Mijares M.D. [facility] Procedures PT Ongoing treatment [address] [place] [address] Referral ID Status Reason Start Date Expiration Date Visits V isits Requested Authorized [id number] Authorized 08/10/2021 05/18/2022 40 40 Encounter Details Date Type Department Care Team Description 11/08/2021 Clinical Support Department of Dk Mijares M.D. [address] [place] [phone] Primary Rehabilitation Maria Luisa Chaparro, P.T. Osteoarthritis Knee Services [place] [address] [place] [phone] Social History Tobacco Use Types Packs/Day Years [...] you attend adventist or Patient refused 2021 evangelical services? Do you belong to any clubs or No 12/20/2021 organizations such as adventist groups, unions, fraLupatech or athletic groups, or school groups? 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
--- OUTSIDE RECORDS SUMMARY | 2022-02-07 14:28 | XMS_ITS | Encounter Summary ---
:1960 Author Organization [facility] Address [address] [place] [address] Care Team Providers Name Role Phone Elsewhere, Pcp Primary Care Provider Unavailable Reason for Visit Physical Therapy (Routine) - Authorized Specialty Diagnoses / Procedures Referred By Contact Refer red To Contact Diagnoses Primary Osteoarthritis Knee Left Dk Mijares M.D. [facility] Procedures PT Ongoing treatment [address] [place] [address] Referral ID Status Reason Start Date Expiration Date Visits V isits Requested Authorized [id number] Authorized 08/10/2021 05/18/2022 40 40 Encounter Details Date Type Department Care Team Description 10/18/2021 Clinical Support Department of Dk Mijares M.D. [address] [place] [phone] Primary Rehabilitation Maria Luisa Chaparro, P.T. Osteoarthritis Knee Services [place] [address] [place] [phone] Social History Tobacco Use Types Packs/Day Years [...] you attend holiness or Patient refused 2021 mosque services? Do you belong to any clubs or No 12/20/2021 organizations such as holiness groups, unions, fraNextCloud or athletic groups, or school groups? 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 - 10/18/2021 12:30 PM CDT Physical Therapy Outpatient Treatment Note SUBJECTIVE Patient's Name: Hussein Whittaker Referring Provider: kD Mijares M.D. Visit Diagnosis: 1. Primary Osteoarthritis Knee Left Payor: [employer] INSURANCE / Plan: [employer] INSURANCE / Product Type: Indemnity / PT Next Certification Date: 08/08/2021 [facility] Visit Count: 7 Patient comments: Pt [...] Left documented in this encounter Care Teams Silver Steward Relationship Specialty Start Date End Date Elsewhere, Pcp PCP - General 06/07/19 documented as of this encounter
--- OUTSIDE RECORDS SUMMARY | 2022-02-07 14:28 | XMS_ITS | Encounter Summary ---
:1960 Author Organization [facility] Address [address] [place] [address] Care Team Providers Name Role Phone Elsewhere, Pcp Primary Care Provider Unavailable Reason for Visit Auth/Cert Specialty Diagnoses / Procedures Referred By Contact Refer red To Contact Diagnoses Pain Knee Left Arthroplasty Total Knee Replacement Status Post Left Pain Knee Left [M25.562] Arthroplasty Total Knee Replacement Status Post Left [Z96.652] Procedures UT MANIP KNEE JT W ANES MANIPULATION KNEE Referral ID Status Reason Start Date Expiration Date Visits Requ ested Visits Authorized [id number] 1 1 Encounter Details Date Type Department Care Team Description 10/03/2021 Anesthesia Event [facility] MAIN OR Miriam Ge M.D. [address] [facility] 701 [facility] [address] [address] [place] [phone] (Wo rk) Anesthesia Record Procedure Summary Procedure [...] Ekaterina Noble, Macario Noble, (created via procedure FUR STORAGE CLERK, NURSING HOME ASSISTANT FUR STORAGE CLERK, CRN A documentation); Mask Ventilation: Easy mask; [...] you attend sikh or Patient refused 2021 sikhism services? Do you belong to any clubs or No 12/20/2021 organizations such as sikh groups, unions, fraSelleration or athletic groups, or school groups? 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 - 10/03/2021 11:12 AM CDT Patient: Hussein Whittaker Procedure Summary Date: 10/03/21 Room / Location: [address] 01 [facility] - Anesthesia Start: 1047 Anesthesia Stop: 1104 [...] Status Post Left [Z96.652] Location: OR 04 [facility] 01 [facility] - GI Surgeons: Dk Mijares M.D. [...] with patient /legal guardian or through an photocomposition keyboard operator. The use of blood products not discussed [...] procedure ar e in the results section. UT US GUIDE PLC NDL Routine 10/03/2021 10:41 AM R esults for this CDT procedure are i n the results section. UT INJ ANES FEM Routine 10/03/2021 10:41 AM [...] ?? Ekaterina Noble APRN, CRNA ANESTHESIA ORDERABLES UT INJ ANES FEM NERVE, UT US GUIDE JAM NDL, ALINA ANE NERVE BLOCK WITH ULTRASOUND (10/03/2021 10:41 [...] succes sful procedure Other complications: none Ekaterina Noble FUR STORAGE CLERK, NURSING HOME ASSISTANT PROCEDURE/MINOR SURGICAL ORD ERABLES documented in this [...] mg documented in this encounter Care Teams Curriculum Supervisor Relationship Specialty Start Date End Date Elsewhere, Pcp PCP - General 06/07/19 documented as of this encounter
--- OUTSIDE RECORDS SUMMARY | 2022-02-07 14:28 | XMS_ITS | Encounter Summary ---
:1960 Author Organization [facility] Address [address] [place] [address] Care Team Providers Name Role Phone Elsewhere, Pcp Primary Care Provider Unavailable Reason for Visit Physical Therapy (Routine) - Authorized Specialty Diagnoses / Procedures Referred By Contact Refer red To Contact Diagnoses Primary Osteoarthritis Knee Left Dk Mijares M.D. [facility] Procedures PT Ongoing treatment [address] [place] [address] Referral ID Status Reason Start Date Expiration Date Visits V isits Requested Authorized [id number] Authorized 08/10/2021 05/18/2022 40 40 Encounter Details Date Type Department Care Team Description 10/08/2021 Clinical Support Department of Dk Mijares M.D. [address] [place] [phone] Primary Rehabilitation Maria Luisa Chaparro, P.T. Osteoarthritis Knee Services in [place] [address] [place] [phone] Social History Tobacco Use Types Packs/Day Years [...] or relatives? How often do you attend congregation or Patient refused 2021 mormon services? Do you belong to any clubs or No 12/20/2021 organizations such as congregation groups, unions, fraMedPro or athletic groups, or school groups? 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 - 10/08/2021 11:00 AM CDT Physical Therapy Outpatient Treatment Note SUBJECTIVE Patient's Name: Hussein Whittaker Referring Provider: Dk Mijares M.D. Visit Diagnosis: 1. Primary Osteoarthritis Knee Left Payor: [employer] / Plan: [employer] / Product Type: Indemnity / PT Next Certification Date: 08/08/2021 [facility] Visit Count: 2 Patient comments: Pt reports [...] Left documented in this encounter Care Teams Dimensional Integration Engineer Relationship Specialty Start Date End Date Elsewhere, Pcp PCP - General 06/07/19 documented as of this encounter
--- OUTSIDE RECORDS SUMMARY | 2022-02-07 14:28 | XMS_ITS | Encounter Summary ---
:1960 Author Organization [facility] Address [address] [place] [address] Care Team Providers Name Role Phone Elsewhere, Pcp Primary Care Provider Unavailable Reason for Referral Outpatient (Routine) - Closed Specialty Diagnoses / Procedures Referred By Contact Refer red To Contact Orthopedic Surgery Laurie Dumont APRN, [facility] C.N.P., D.N.P. [address] [place] [address] Referral ID Status Reason Start Date Expiration Date Visits Requ ested Visits Authorized [id number] Closed 11/20/2021 11/20/2022 1 1 Reason for Visit Reason Comments Post-op Motion is improving slowly Follow-up Motion is improving slowly Encounter Details Date Type Department Care Team Description 11/20/2021 Office Visit Department of Nieves Hunter APRN, C.N.P., D.N.P. [address] [place] [address] Arthroplasty Total Knee Replacement Stat us Post Left (Primary Dx); Orthopedic Surgery in Laurie Dumont APRN, C.N.P., D.N.P. [address] [place] [address] Follow Up Examination Postoperative Visi t [address] [phone] Social History Tobacco Use Types [...] you attend mandaen or Patient refused 2021 islam services? Do [...] at Date Recorded Male 06/23/2021 7:46 PM REGISTERED NURSE RENAL documented as of this encounter Progress Notes [...] t documented in this encounter Care Teams Applications Developer Relationship Specialty Start Date End Date Elsewhere, Pcp PCP - General 06/07/19 documented as of this encounter
--- OUTSIDE RECORDS SUMMARY | 2022-02-07 14:28 | XMS_ITS | Encounter Summary ---
:1960 Author Organization [facility] Address [address] [place] [address] Care Team Providers Name Role Phone Elsewhere, [...] you attend judaism or Patient refused 2021 confucianist services? 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
--- OUTSIDE RECORDS SUMMARY | 2022-02-07 14:28 | XMS_ITS | Encounter Summary ---
:1960 Author Organization [facility] Address [address] [place] [address] Care Team Providers Name Role Phone Elsewhere, Pcp Primary Care Provider Unavailable Reason for Visit Physical Therapy (Routine) - Authorized Specialty Diagnoses / Procedures Referred By Contact Refer red To Contact Diagnoses Primary Osteoarthritis Knee Left Dk Mijares M.D. [facility] Procedures PT Ongoing treatment [address] [place] [address] Referral ID Status Reason Start Date Expiration Date Visits V isits Requested Authorized [id number] Authorized 08/10/2021 05/18/2022 40 40 Encounter Details Date Type Department Care Team Description 11/27/2021 Clinical Support Department of Dk Mijares M.D. [address] [place] [phone] Primary Rehabilitation Yasmine Cherry, P.T. Osteoarthritis Knee Services [place] [address] [place] [phone] Social History Tobacco Use Types Packs/Day Years [...] or relatives? How often do you attend cheondoism or Patient refused 2021 mormon services? 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 Visit Diagnosis: 1. Primary Osteoarthritis Knee Left Payor: [facility] / Plan: [facility] [place] / Product Type: PPO / [...] Continue TKA pathway Access Code: [email or web address] URL: [email or web address] Date: 11/27/2021 Prepared by: DALJIT [place] [...] Left documented in this encounter Care Teams Striping Machine Operator Relationship Specialty Start Date End Date Elsewhere, Pcp PCP - General 06/07/19 documented as of this encounter
--- OUTSIDE RECORDS SUMMARY | 2022-02-07 14:29 | XMS_ITS | Encounter Summary ---
:1960 Author Organization [facility] Address [address] [place] [address] Care Team Providers Name Role Phone Elsewhere, Pcp Primary Care Provider Unavailable Reason for Visit Reason Comments Med Refill Encounter Details Date Type Department Care Team Description 08/10/2021 Refill Department of Orthopedic Jelly Elizabeth M.D. Med Refill Surgery in [place], [place] [address] [place] [address] [address] [place] [address] [place] [address] [phone] Social History Tobacco Use Types Packs/Day Years [...] you attend lutheran or Patient refused 2021 tenriism services? 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 - 08/10/2021 3:24 PM CDT Refill oxycodone; last refill 08/07/21; left total knee 08/06/21/ Maryana Routing to Dr. Elizabeth in Dr. Mijares absence. documented in this encounter Plan of Treatment Not on filedocumented as of this encounter Visit Diagnoses Not on filedocumented in this encounter Care Teams Appraiser Oil And Water Relationship Specialty Start Date End Date Elsewhere, Pcp PCP - General 06/07/19 documented as of this encounter
--- OUTSIDE RECORDS SUMMARY | 2022-02-07 14:29 | XMS_ITS | Encounter Summary ---
:1960 Author Organization [facility] Address [address] [place] [address] Care Team Providers Name Role Phone Elsewhere, Pcp Primary Care Provider Unavailable Reason for Visit Physical Therapy (Routine) - Authorized Specialty Diagnoses / Procedures Referred By Contact Refer red To Contact Diagnoses Primary Osteoarthritis Knee Left Dk Mijares M.D. [facility] Procedures PT Ongoing treatment [address] [place] [address] Referral ID Status Reason Start Date Expiration Date Visits V isits Requested Authorized [id number] Authorized 08/10/2021 05/18/2022 40 40 Encounter Details Date Type Department Care Team Description 08/23/2021 Clinical Support Department of Dk Mijares M.D. [address] [place] [phone] Primary Rehabilitation Dian Clarke, P.T. [address] [place], [place] [address] [place] [address] Osteoarthritis Knee Services in [address] [phone] Social History Tobacco Use Types Packs/Day Years [...] attend jehovah's witness or Patient refused 2021 protestant services? Do you belong to any clubs or No 12/20/2021 organizations such as jehovah's witness groups, unions, fraMobshop or athletic groups, or school groups? How [...] Date Recorded Male 06/23/2021 7:46 PM SPORTS PHYSICAL THERAPIST documented as of this encounter Progress Notes Dian Clarke P.T. - 08/23/2021 2:00 PM CDT Physical Therapy Outpatient Treatment Note SUBJECTIVE Patient's Name: Hussein Whittaker Referring Provider: Dk Mijares M.D. Visit Diagnosis: 1. Primary Osteoarthritis Knee Left Payor: [employer] / Plan: [employer] / Product Type: Indemnity / PT Next Certification Date: 08/08/2021 [facility] Visit Count: 5 Patient comments: Patient [...] Left documented in this encounter Care Teams Human Resources Representative Relationship Specialty Start Date End Date Elsewhere, Pcp PCP - General 06/07/19 documented as of this encounter
--- OUTSIDE RECORDS SUMMARY | 2022-02-07 14:29 | XMS_ITS | Encounter Summary ---
:1960 Author Organization [facility] Address [address] [place] [address] Care Team Providers Name Role Phone Elsewhere, Pcp Primary Care Provider Unavailable Reason for Referral Outpatient (Routine) - Pending Review Specialty Diagnoses / Procedures Referred By Contact Refer red To Contact Orthopedic Surgery Diagnoses post op Dk Mijares M.D. [facility] Region [address] [place] [phone] Referral ID Status Reason Start Date Expiration Date Visits V isits Requested Authorized [id number] Pending 08/21/2021 08/21/2022 1 1 Review Outpatient (Routine) - Closed Specialty Diagnoses / Procedures Referred By Contact Refer red To Contact Diagnoses Aftercare Total Knee Arthroplasty Nieves Hunter APRN, [facility] Region Procedures DX Knee Left 3 Views C.N.P., D.N.P. [address] [place] [phone] Referral ID Status Reason Start Date Expiration Date Visits Requ ested Visits Authorized [id number] Closed 08/21/2021 08/21/2022 1 1 Reason for Visit Outpatient (Routine) - Pending Review Specialty Diagnoses / Procedures Referred By Contact Refer red To Contact Orthopedic Surgery Diagnoses Dk Mijares M.D. [facility] Region [address] [place] [address] Referral ID Status Reason Start Date Expiration Date Visits V lesly Requested Authorized [id number] Pending 06/28/2021 06/28/2022 1 1 Review Encounter Details Date Type Department Care Team Description 08/21/2021 Office Visit Department of Dk Mijares, Esme lugo Total Knee Orthopedic Surgery in M.DFarshad Arthroplasty (Primary [place], [address] [facility] [place] [address] [address] [place], [place] [phone] (Work) [phone] Social History Tobacco Use Types Packs/Day Years [...] you attend voodoo or Patient refused 2021 religion services? 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
--- OUTSIDE RECORDS SUMMARY | 2022-02-07 14:29 | XMS_ITS | Encounter Summary ---
:1960 Author Organization [facility] Address [address] [place] [address] Care Team Providers Name Role Phone Elsewhere, Pcp Primary Care Provider Unavailable Reason for Referral Physical Therapy (Routine) - Authorized Specialty Diagnoses / Procedures Referred By Contact Refer red To Contact Diagnoses Primary Osteoarthritis Knee Left Dk Mijares M.D. [facility] Procedures PT Ongoing treatment [address] [place] [phone] Referral ID Status Reason Start Date Expiration Date Visits V isits Requested Authorized [id number] Authorized 08/10/2021 05/18/2022 40 40 Reason for Visit Physical Therapy (Routine) - Pending Review Specialty Diagnoses / Procedures Referred By Contact Refer red To Contact Diagnoses Primary Osteoarthritis Knee Left Dk Mijares M.D. [facility] Procedures PT Evaluate and treat [address] [place] [address] Referral ID Status Reason Start Date Expiration Date Visits V isits Requested Authorized [id number] Pending 06/28/2021 06/28/2022 1 1 Review Encounter Details Date Type Department Care Team Description 08/10/2021 Comprehensive Visit Department of Naman Mijares M.D. [address] [place] [phone] Primary Rehabilitation Dian Morgan P.TFarshad [address] [phone] Osteoarthritis Knee Services in [address] [phone] Social History Tobacco Use Types Packs/Day Years [...] you attend pentecostalism or Patient refused 2021 christianity services? Do [...] at Date Recorded Male 06/23/2021 7:46 PM RADARMAN documented as of this encounter Consult Notes [...] TRAVELERS INSURANCE / Product Type: Indemnity / [employer] Visit Count: 1 PERTINENT MEDICAL / SURGICAL [...] Procedure: COLONOSCOPY; Surgeon: Kavon Espino M.D.; Location: [facility] OR ??? KNEE JOINT OPERATION [...] TOTAL ARTHROPLASTY; Surgeon: Dk Mijares M.D.; Location: [facility] OR Hussein Cartagena Panfilo is a 60 [...] documented in this encounter Care Teams Assistant Project Manager Relationship Specialty Start Date End Date Elsewhere, Pcp PCP - General 06/07/19 documented as of this encounter
--- OUTSIDE RECORDS SUMMARY | 2022-02-07 14:29 | XMS_ITS | Encounter Summary ---
:1960 Author Organization [facility] Address [address] [place] [address] Care Team Providers Name Role Phone Elsewhere, Pcp Primary Care Provider Unavailable Reason for Visit Reason Comments Nocturia Recent total knee Dr Mijares Encounter Details Date Type Department Care Team Description 08/08/2021 Clinical Communication Department of Dk Mijares (Recent Orthopedic Surgery Adrian Bui total knee Dr in [place] [address] [address] [place], [place] [phone] (Work) [phone] Social History Tobacco Use Types Packs/Day Years [...] you attend mandaeism or Patient refused 2021 pentecostal services? 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 Dr Mijares team notified. documented in this encounter Plan of Treatment Not on filedocumented as of this encounter Visit Diagnoses Not on filedocumented in this encounter Care Teams Cement Sack Breaker Relationship Specialty Start Date End Date Elsewhere, Pcp PCP - General 06/07/19 documented as of this encounter
--- OUTSIDE RECORDS SUMMARY | 2022-02-07 14:29 | XMS_ITS | Encounter Summary ---
:[address] [facility] Address [address] [place] [address] Care Team Providers Name Role Phone Elsewhere, Pcp Primary Care Provider Unavailable Reason for Referral Outpatient (Routine) - Pending Review Specialty Diagnoses / Procedures Referred By Contact Refer red To Contact Orthopedic Surgery Diagnoses Nieves Hunter APRN, GURVINDERS [facility] C.N.P., D.N.P. [address] [place] [address] Referral ID Status Reason Start Date Expiration Date Visits V isits Requested Authorized [id number] Pending 08/07/2021 08/07/2022 1 1 Review Scheduling Instructions Ordered images/tests are associated with this appointment. 2 week follow up Reason for Visit Auth/Cert Specialty Diagnoses / Procedures Referred By Contact Refer red To Contact Diagnoses Primary Osteoarthritis Knee Left Primary Osteoarthritis Knee Left [M17.12] Procedures ID ARTHRO KNEE CONDYLE&PLAT (TKA) BARBER ROBOTIC-ASSISTED KNEE TOTAL ARTHROPLASTY - LEFT Referral ID Status Reason Start Date Expiration Date Visits Requ ested Visits Authorized [id number] 1 1 Encounter Details Date Type Department Care Team Description 08/06/2021 - [facility] Dk Mijares Primary Oste oarthritis 08/07[facility]21 [facility], [address] [place] [address] Third Floor [place] [address] [facility] [address] [place] [phone] [address] (Work) [phone] Social History Tobacco Use Types Packs/Day Years [...] you attend orthodoxy or Patient refused 2021 muslim services? 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 Primary [...] to Today) Date Procedures Providers Location 08/06/2021 BRABER ROBOTIC-ASSISTED KNEE TOTAL ARTHROPLASTY Dk Mijares M.D.Reber, Darcy L, APRN, C.N.P., D.N.P.Laurie Dumont APRN, C.N.P., D.N.P. [facility] OR DISCHARGE DISPOSITION Home or Self [...] next session: DC home outpatient PT in [place] Inpatient AVS Complete - PT: Yes Time [...] home with outpatient therapy set up in [place] to address remaining impairments of range of [...] Procedure: COLONOSCOPY; Surgeon: Kavon Espino M.D.; Location: [facility] OR ??? 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 Can do some network systems operator, but also needs to be able to [...] Comfort height Home Equipment Home Adaptive Equipment: Screen Tender Helper, Sock aid, Dressing stick, Long-handled shoe horn, [...] Whittaker had a standardized score of 47.1. [facility]'s 3-year data, as reported at [facility] 2017, indicates a cut off of 39.4 or greater in daily activity is a fair to good accurate prediction of discharge home. Source: AM-PAC ???6 -Clicks?? functional assessment scores predict acute care hospital discharge destination. Armature Connector. 2014 Jan; 94 (9): 1252-61. AM-PAC Activity: [...] while seated, threadingsurgical lower extremity 1st, using senior network engineer if needed; patient receptive Toileting Toileting Location: [...] a 60 y.o. year old admit to [facility] [place] [facility]urg following a left TKA on 08/06/2021. [...] recliner or while in bed ??? Obtain/utilize senior network engineer, sock aid, shower chair, and other AE/DME as needed to complete daily tasks Bathroom Safety Equipment ([id number]); Home Safety Tips ([id number]); Safe Car Transfer Handout; Adaptive Equipment Information [...] Goals and Timeframes: OT Goal #1: Hussein Whitatker will complete LB dressing using AE following [...] Goal #3 Date: 08/07/21 OT Goal #4: Hussien Whittaker will verbalize understanding of home safe [...] treat. TKA protocol Onset Date: 08/06/21 Payor: [facility] [employer] / Plan: [facility] / Product Type: PPO / PERTINENT [...] Procedure: COLONOSCOPY; Surgeon: Kavon Espino M.D.; Location: [facility] OR ??? 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 Can do some network systems operator, but also needs to be able to [...] AM-PAC Basic Mobility (V.2) Standardized Score: 43.99 -[facility] 6 Clicks Interpretation: Clinicians answer the AM-PAC Inpatient Short Form based on observed patient activity and/or clinicaljudgement (ie. Patient can be scored without physically performing each activity). According to raw scoring guidelines: Those going to home had an average score of 20.1 Those going home with home care had an average score of 17.9 Those going to nursing home facility had an average score of 14 Those going to inpatient rehab facility had an average score of 13.6 Those going to a roasterman care facility had an average score of [...] total knee arthroplasty. SURGEON: Dk Mijares M.D. DIGITAL PRINTER OPERATOR: Dr. Luis Fu A development assistant actively participated and was necessary for [...] using #1 Vicryl in a n interrupted simvpi-vd-yzzum fashion followed by copious irrigation of subcutaneous tissue with closure of this using 2-0 Vicryl. The skin was then closed using ZipLine device followed by OpenWhere dressing and BERNABE bandage. The tourniquet was [...] Organization Address City/State/ZIP Code Phon e Number [facility]- Zehra [place], [place] [address] [address] [facility] [place] [address] System in [place] [address]mitt documented in this encounter [...] (COMPLETED) 0656 (Given - Provider: Lisbeth Caballero R.N.) 1,000 mg, oral, Once, On Fri08/06/21 at 0645, For 1 dose, Pre-Op acetaminophen tablet 1,000 mg (TYLENOL) 1356 (Given - Provider: Kathy Beaver RFarshadNFarshad)2008 (Given - Provider: Clara Swann R.N.) 0211 (Given - Provider: Clara Swann R.N.)0841 (Given - Provider: Carol Clemente R.N.) 1,000 mg, oral, Every 6 hours, First dose on Fri08/06/21 at 1400 ceFAZolin in dextrose (iso-osm) IVPB 2 g (ANCEF) (COMPLETED) 1618 (New Bag - Provider: Jeanine Jordan RShahzad) 0018 (New Bag - Provider: Leny MejiaNFarshad) 2 g, intravenous, at 100 mL/hr, Administ er over 30 Minutes, Every 8 hours, First dose on Fri08/06/21 at 1600, For 2 doses, Start within 8 hours of last IV dose., Drug Monitoring Program: Pharmacist to a djust medication dosing based on indicat ion and drug clearance factors., Indications: Prophylaxis, surgical ceFAZolin injection 2,000 mg (ANCEF) (COMPLETED) 0830 (Given - Provider: Maeve Pino RShahzad) 2,000 mg (rounded from 2,925 mg = [...] 25 mg (HYDRODIURIL) 0842 (Given - Provider: Leny LloydNFarshad) 25 mg, oral, Daily, First dose on Fri08/07/21 at 0900, Hold for SBP <110 ketorolac injection 15 mg (TORADOL) (COMPLETED) 1239 (Given - Provider: Jeanine Jordan R.N.)1837 (Given - Provider: Jeanine Jordan R.N. - Comment: intermittent pain; not continuous) 001 (Given - Provider: lCara Swann R.N.)0633 (Given - Provider: Clara Swann [...] <[address] tablet 40 mg (PROTONIX) 632 (Given - Provider: Clara Swann R.N.) 40 [...] 0848 (Given - Provider: Keaton Valdez APRN, SOFTWARE TEST TECHNICIAN) 1,000 mg (1 g), intravenous, at 300 [...] Caballero R.N.)0812 (Rate/Dose Verify - Provider: Keaton Valdez, MAINTENANCE TRUCK DRIVER, SOFTWARE TEST TECHNICIAN)0916 (New Bag - Provider: Maeve Pino R.N.)1030 (Anesthesia Volume Adjustment - Provider: Maeve Pino [...] (CANCELED) 1053 (Given - Provider: Keke Barney RFarshadN.)1056 (Given - Provider: Keke Barney R.N.)1058 (Given - Provider: Keke Barney R.N.)1100 (Given [...] or score 7-10 of 10, Starting on 08/06/21 at 0735
First line therapy or for pain greater than comfort goal (not to exceed 400 mg in 24 hours).
documented in this encounter Care Teams Pipe Organ Installer Relationship Specialty Start Date End Date Elsewhere, Pcp PCP - General 06/07/19 documented as of this encounter
--- OUTSIDE RECORDS SUMMARY | 2022-02-07 14:29 | XMS_ITS | Encounter Summary ---
:1960 Author Organization [facility] Address [address] [place] [address] Care Team Providers Name Role Phone Elsewhere, Pcp Primary Care Provider Unavailable Reason for Visit Physical Therapy (Routine) - Authorized Specialty Diagnoses / Procedures Referred By Contact Refer red To Contact Diagnoses Primary Osteoarthritis Knee Left Dk Mijares M.D. [facility] Procedures PT Ongoing treatment [address] [place] [address] Referral ID Status Reason Start Date Expiration Date Visits V isits Requested Authorized [id number] Authorized 08/10/2021 05/18/2022 40 40 Encounter Details Date Type Department Care Team Description 09/24/2021 Clinical Support Department of Dk Mijares M.D. [address] [place] [phone] Primary Rehabilitation Maria Luisa Chaparro, P.T. Osteoarthritis Knee Services in [place] [address] [place] [phone] Social History Tobacco Use Types Packs/Day Years [...] you attend sabianism or Patient refused 2021 sabianism services? 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
--- OUTSIDE RECORDS SUMMARY | 2022-02-07 14:29 | XMS_ITS | Encounter Summary ---
:1960 Author Organization [facility] Address [address] [place] [address] Care Team Providers Name Role Phone Elsewhere, Pcp Primary Care Provider Unavailable Reason for Visit Reason Comments [facility] Encounter Details Date Type Department Care Team Description 08/07/2021 Clinical Communication Department of Dk Mijares [facility] Orthopedic Surgery in .[place], [place] 701 [facility] [address] [place] [phone] Social History Tobacco Use Types Packs/Day [...] you attend gnosticist or Patient refused 2021 druze services? 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 Scanned in to chart, and patient will pick it up in [place]. Telephone Encounter - Lucy Forde - 08/07/2021 11:55 AM CDT [facility] paper work submitted to Mijares team today, NO GODWIN. documented in this encounter Plan of Treatment Not on filedocumented as of this encounter Visit Diagnoses Not on filedocumented in this encounter Care Teams Spectrographic Analyst Relationship Specialty Start Date End Date Elsewhere, Pcp PCP - General 06/07/19 documented as of this encounter
--- OUTSIDE RECORDS SUMMARY | 2022-02-07 14:29 | XMS_ITS | Encounter Summary ---
:1960 Author Organization [facility] Address [address] [place] [address] Care Team Providers Name Role Phone Elsewhere, Pcp Primary Care Provider Unavailable Reason for Visit Physical Therapy (Routine) - Authorized Specialty Diagnoses / Procedures Referred By Contact Refer red To Contact Diagnoses Primary Osteoarthritis Knee Left Dk Mijares M.D. [facility] Procedures PT Ongoing treatment [address] [place] [address] Referral ID Status Reason Start Date Expiration Date Visits V isits Requested Authorized [id number] Authorized 08/10/2021 05/18/2022 40 40 Encounter Details Date Type Department Care Team Description 09/19/2021 Clinical Support Department of Dk Mijares M.D. [address] [place] [phone] Primary Rehabilitation Maria Luisa Chaparro, P.T. Osteoarthritis Knee Services [place] [address] [place] [phone] Social History Tobacco Use Types Packs/Day Years [...] you attend mandaeism or Patient refused 2021 rastafarian services? 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
--- OUTSIDE RECORDS SUMMARY | 2022-02-07 14:29 | XMS_ITS | Encounter Summary ---
:1960 Author Organization [facility] Address [address] [place] [address] Care Team Providers Name Role Phone Elsewhere, Pcp Primary Care Provider Unavailable Reason for Visit Physical Therapy (Routine) - Authorized Specialty Diagnoses / Procedures Referred By Contact Refer red To Contact Diagnoses Primary Osteoarthritis Knee Left Dk Mijares M.D. [facility] Procedures PT Ongoing treatment [address] [place] [address] Referral ID Status Reason Start Date Expiration Date Visits V isits Requested Authorized [id number] Authorized 08/10/2021 05/18/2022 40 40 Encounter Details Date Type Department Care Team Description 09/07/2021 Clinical Support Department of Dk Mijares M.D. [address] [place] [phone] Primary Rehabilitation Constance Shea, P.T. [address] [place], [place] [address]on [place] [address] Osteoarthritis Knee Services in [address] [phone] Social History Tobacco Use Types Packs/Day Years [...] you attend gnosticist or Patient refused 2021 restorationism services? Do you belong to any clubs or No 12/20/2021 organizations such as gnosticist groups, unions, fraTriLogic Pharma or athletic groups, or school groups? 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
--- OUTSIDE RECORDS SUMMARY | 2022-02-07 14:29 | XMS_ITS | Encounter Summary ---
:1960 Author Organization [facility] Address [address] [place] [address] Care Team Providers Name Role Phone Elsewhere, Pcp Primary Care Provider Unavailable Encounter Details Date Type Department Care Team Description 08/13/2021 Orders Only Pharmacy Prior Auth [place] Alisha Whiting [phone] Social History Tobacco Use Types Packs/Day Years [...] you attend holiness or Patient refused 2021 uatsdin services? 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
--- OUTSIDE RECORDS SUMMARY | 2022-02-07 14:29 | XMS_ITS | Encounter Summary ---
:1960 Author Organization [facility] Address [address] [place] [address] Care Team Providers Name Role Phone Elsewhere, Pcp Primary Care Provider Unavailable Reason for Visit Physical Therapy (Routine) - Authorized Specialty Diagnoses / Procedures Referred By Contact Refer red To Contact Diagnoses Primary Osteoarthritis Knee Left Dk Mijares M.D. [facility] Procedures PT Ongoing treatment [address] [place] [address] Referral ID Status Reason Start Date Expiration Date Visits V isits Requested Authorized [id number] Authorized 08/10/2021 05/18/2022 40 40 Encounter Details Date Type Department Care Team Description 08/27/2021 Clinical Support Department of Dk Mijares M.D. [address] [place] [phone] Primary Rehabilitation Dian Clarke, P.T. [address] [place], [place] [address] [address] Osteoarthritis Knee Services in [address] [phone] Social History Tobacco Use Types Packs/Day Years [...] you attend evangelical or Patient refused 2021 restorationist services? Do you belong to any clubs or No 12/20/2021 organizations such as evangelical groups, unions, fraRelead or athletic groups, or school groups? 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 - 08/27/2021 2:15 PM CDT Physical Therapy Outpatient Treatment Note SUBJECTIVE Patient's Name: Hussein Whittaker Referring Provider: Dk Mijares M.D. Visit Diagnosis: 1. Primary Osteoarthritis Knee Left Payor: [employer] / Plan: [employer] / Product Type: Indemnity / PT Next Certification Date: 08/08/2021 [facility] Visit Count: 6 Patient comments: Patient worked [...] Left documented in this encounter Care Teams Videotape Operator Relationship Specialty Start Date End Date Elsewhere, Pcp PCP - General 06/07/19 documented as of this encounter
--- OUTSIDE RECORDS SUMMARY | 2022-02-07 14:29 | XMS_ITS | Encounter Summary ---
:1960 Author Organization [facility] Address [address] [place] [address] Care Team Providers Name Role Phone Elsewhere, Pcp Primary Care Provider Unavailable Reason for Visit Physical Therapy (Routine) - Authorized Specialty Diagnoses / Procedures Referred By Contact Refer red To Contact Diagnoses Primary Osteoarthritis Knee Left Dk Mijares M.D. [facility] Procedures PT Ongoing treatment [address] [place] [phone] Referral ID Status Reason Start Date Expiration Date Visits V isits Requested Authorized [id number] Authorized 08/10/2021 05/18/2022 40 40 Encounter Details Date Type Department Care Team Description 08/30/2021 Clinical Support Department of Dk Mijares M.D. [address] [place] [phone] Primary Rehabilitation Dian Clarke, P.T. [address] [place], [place] [address] [address] Osteoarthritis Knee Services in [address] [phone] Social History Tobacco Use Types Packs/Day Years [...] you attend orthodoxy or Patient refused 2021 confucianist services? Do you belong to any clubs or No 12/20/2021 organizations such as orthodoxy groups, unions, fra[employer]lab or athletic groups, or school groups? 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 - 08/30/2021 2:45 PM CDT Physical Therapy Outpatient Treatment Note SUBJECTIVE Patient's Name: Hussein Osiel Panfilo Referring Provider: Dk Mijares M.D. Visit Diagnosis: 1. Primary Osteoarthritis Knee Left Payor: [employer] / Plan: [employer] / Product Type: Indemnity / PT Next Certification Date: 08/08/2021 [facility] Visit Count: 7 Patient comments: Patient [...] Left documented in this encounter Care Teams Orange Peel Operator Relationship Specialty Start Date End Date Elsewhere, Pcp PCP - General 06/07/19 documented as of this encounter
--- OUTSIDE RECORDS SUMMARY | 2022-02-07 14:29 | XMS_ITS | Encounter Summary ---
:1960 Author Organization [facility] Address [address] [place] [address] Care Team Providers Name Role Phone Elsewhere, Pcp Primary Care Provider Unavailable Reason for Visit Physical Therapy (Routine) - Authorized Specialty Diagnoses / Procedures Referred By Contact Refer red To Contact Diagnoses Primary Osteoarthritis Knee Left Dk Mijares M.D. [facility] Procedures PT Ongoing treatment [address] [place] [address] Referral ID Status Reason Start Date Expiration Date Visits V isits Requested Authorized [id number] Authorized 08/10/2021 05/18/2022 40 40 Encounter Details Date Type Department Care Team Description 09/05/2021 Clinical Support Department of Dk Mijares M.D. [address] [place] [phone] Primary Rehabilitation Dian Clarke, P.T. [address] [place] [address] [place] [address] Osteoarthritis Knee Services in [address] [phone] Social History Tobacco Use Types Packs/Day Years [...] you attend nondenominational or Patient refused 2021 caodaism services? Do you belong to any clubs or No 12/20/2021 organizations such as nondenominational groups, unions, fraAvvo or athletic groups, or school groups? 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 - 09/05/2021 8:30 AM CDT Physical Therapy Outpatient Treatment Note SUBJECTIVE Patient's Name: Hussein Osiel Panfilo Referring Provider: Dk Mijares M.D. Visit Diagnosis: 1. Primary Osteoarthritis Knee Left Payor: [facility] / Plan: [facility] [place] / Product Type: PPO / PT Next Certification Date: 08/08/2021 [facility] Visit Count: 8 Patient comments: Patient is [...] Left documented in this encounter Care Teams Tape Recorder Repairer Relationship Specialty Start Date End Date Elsewhere, Pcp PCP - General 06/07/19 documented as of this encounter
--- OUTSIDE RECORDS SUMMARY | 2022-02-07 14:29 | XMS_ITS | Encounter Summary ---
:1960 Author Organization [facility] Address [address] [place] [address] Care Team Providers Name Role Phone Elsewhere, Pcp Primary Care Provider Unavailable Reason for Visit Physical Therapy (Routine) - Authorized Specialty Diagnoses / Procedures Referred By Contact Refer red To Contact Diagnoses Primary Osteoarthritis Knee Left Dk Mijares M.D. [facility] Procedures PT Ongoing treatment [address] [place] [address] Referral ID Status Reason Start Date Expiration Date Visits V isits Requested Authorized [id number] Authorized 08/10/2021 05/18/2022 40 40 Encounter Details Date Type Department Care Team Description 08/13/2021 Clinical Support Department of Dk Mijares M.D. [address] [place] [phone] Primary Rehabilitation Dian Clarke, P.T. [address] [place] [address] [place] [address] Osteoarthritis Knee Services in [address] [phone] Social History Tobacco Use Types Packs/Day Years [...] 12/20/2021 organizations such as jainism groups, unions, fraDer Grüne Punkt or athletic groups, or school groups? 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 - 08/13/2021 12:45 PM CDT Physical Therapy Outpatient Treatment Note SUBJECTIVE Patient's Name: Hussein Whittaker Referring Provider: Dk Mijares M.D. Visit Diagnosis: 1. Primary Osteoarthritis Knee Left Payor: [facility] / Plan: [facility] [place] / Product Type: PPO / PT Next Certification Date: 08/08/2021 [facility] Visit Count: 2 Patient comments: Patient has [...] stretches at 3x 30 seconds. Performed the [email or web address] Total body ergometer times 10 minutes at [...] Left documented in this encounter Care Teams Automobile Upholsterer Apprentice Relationship Specialty Start Date End Date Elsewhere, Pcp PCP - General 06/07/19 documented as of this encounter
--- OUTSIDE RECORDS SUMMARY | 2022-02-07 14:29 | XMS_ITS | Encounter Summary ---
:1960 Author Organization [facility] Address [address] [place] [address] Care Team Providers Name Role Phone Elsewhere, Pcp Primary Care Provider Unavailable Reason for Referral Outpatient (Routine) - Closed Specialty Diagnoses / Procedures Referred By Contact Refer red To Contact Diagnoses Aftercare Total Knee Arthroplasty Nieves Hunter APRN, [facility] [place] [facility] Procedures DX Knee Left 3 Views C.N.P., D.N.P. [address] [place] [address] Referral ID Status Reason Start Date Expiration Date Visits Requ ested Visits Authorized [id number] Closed 08/21/2021 08/21/2022 1 1 Reason for Visit Outpatient (Routine) - Closed Specialty Diagnoses / Procedures Referred By Contact Refer red To Contact Diagnoses Aftercare Total Knee Arthroplasty Nieves Hunter APRN, [facility] [place] [facility] Procedures DX Knee Left 3 Views C.N.P., D.N.P. [address] [place] [phone] Referral ID Status Reason Start Date Expiration Date Visits Requ ested Visits Authorized [id number] Closed 08/21/2021 08/21/2022 1 1 Encounter Details Date Type Department Care Team Description 08/21/2021 Hospital Encounter Department of Nieves Hunter, After care Total Knee Radiology in [place], C.N.PFarshad, [place], [place] D.N.P. [address] [phone] Social History Tobacco Use Types Packs/Day [...] you attend restorationism or Patient refused 2021 zoroastrian services? 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
--- OUTSIDE RECORDS SUMMARY | 2022-02-07 14:29 | XMS_ITS | Encounter Summary ---
:1960 Author Organization [facility] Address [address] [place] [address] Care Team Providers Name Role Phone Elsewhere, Pcp Primary Care Provider Unavailable Reason for Visit Physical Therapy (Routine) - Authorized Specialty Diagnoses / Procedures Referred By Contact Refer red To Contact Diagnoses Primary Osteoarthritis Knee Left Dk Mijares M.D. [facility] Procedures PT Ongoing treatment [address] [place] [phone] Referral ID Status Reason Start Date Expiration Date Visits V isits Requested Authorized [id number] Authorized 08/10/2021 05/18/2022 40 40 Encounter Details Date Type Department Care Team Description 08/21/2021 Clinical Support Department of Dk Mijares M.D. [address] [place] [phone] Primary Rehabilitation Dian Clarke, P.T. [address] [place], [place] [address]on [place] [address] Osteoarthritis Knee Services in [address] [phone] Social History Tobacco Use Types Packs/Day Years [...] you attend sabianist or Patient refused 2021 mu-ism services? Do you belong to any clubs or No 12/20/2021 organizations such as sabianist groups, unions, fraMacrotherapy or athletic groups, or school groups? 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 - 08/21/2021 1:15 PM CDT Physical Therapy Outpatient Treatment Note SUBJECTIVE Patient's Name: Hussein Osiel Panfilo Referring Provider: Dk Mijares M.D. Visit Diagnosis: 1. Primary Osteoarthritis Knee Left Payor: / PT Next Certification Date: 08/08/2021 [facility] Visit Count: 4 Patient comments: Patient is [...] TREATMENT Treatment today consisted of: Perform the Judys Book-Fit Total body ergometer x8 minutes at a [...] Left documented in this encounter Care Teams Dial Mounter Relationship Specialty Start Date End Date Elsewhere, Pcp PCP - General 06/07/19 documented as of this encounter
--- OUTSIDE RECORDS SUMMARY | 2022-02-07 14:29 | XMS_ITS | Encounter Summary ---
:1960 Author Organization [facility] Address [address] [place] [address] Care Team Providers Name Role Phone Elsewhere, Pcp Primary Care Provider Unavailable Reason for Visit Physical Therapy (Routine) - Authorized Specialty Diagnoses / Procedures Referred By Contact Refer red To Contact Diagnoses Primary Osteoarthritis Knee Left Dk Mijares M.D. [facility] Procedures PT Ongoing treatment [address] [place] [address] Referral ID Status Reason Start Date Expiration Date Visits V isits Requested Authorized [id number] Authorized 08/10/2021 05/18/2022 40 40 Encounter Details Date Type Department Care Team Description 09/11/2021 Clinical Support Department of Dk Mijares M.D. [address] [place] [phone] Primary Rehabilitation Dian Clarke, P.T. [address] [place], [place] [address] [address] Osteoarthritis Knee Services in [address] [phone] Social History Tobacco Use Types Packs/Day Years [...] you attend alevism or Patient refused 2021 evangelical services? Do you belong to any clubs or No 12/20/2021 organizations such as alevism groups, unions, fraOffees or athletic groups, or school groups? How [...] at Date Recorded Male 06/23/2021 7:46 PM RECORDS MANAGEMENT SPECIALIST documented as of this encounter Progress Notes Dian Clarke P.T. - 09/11/2021 9:15 AM CDT Physical Therapy Outpatient Treatment Note SUBJECTIVE Patient's Name: Hussein Osiel Panfilo Referring Provider: Dk Mijares M.D. Visit Diagnosis: 1. Primary Osteoarthritis Knee Left Payor: TRAVELERS INSURANCE / Plan: TRAVELERS INSURANCE / Product Type: Indemnity / PT Next Certification Date: 08/08/2021 [facility] Visit Count: 10 Patient comments: Patient continues [...] Left documented in this encounter Care Teams University Registrar Relationship Specialty Start Date End Date Elsewhere, Pcp PCP - General 06/07/19 documented as of this encounter
--- OUTSIDE RECORDS SUMMARY | 2022-02-07 14:29 | XMS_ITS | Encounter Summary ---
:1960 Author Organization [facility] Address [address] [place] [address] Care Team Providers Name Role Phone Elsewhere, Pcp Primary Care Provider Unavailable Reason for Visit Outpatient (Routine) - Closed Specialty Diagnoses / Procedures Referred By Contact Refer red To Contact Anesthesiology Diagnoses Preoperative Exam Dk Mijares M.D. [facility] [address] [place] [phone] Referral ID Status Reason Start Date Expiration Date Visits Requ ested Visits Authorized [id number] Closed 09/18/2021 09/18/2022 1 1 Encounter Details Date Type Department Care Team Description 09/24/2021 Virtual Visit Preoperative Dk Mijares M.D. [address] [place] [phone] Preanesthetic Medical Exam (Primary Dx); [facility] [address] [place] [phone] Preoperative Exam [address] [phone] Social History Tobacco Use Types [...] you attend confucianism or Patient refused 2021 protestant services? Do you belong to any clubs or No 12/20/2021 organizations such as confucianism groups, unions, fraAcheive CCA or athletic groups, or school groups? 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 - 09/24/2021 3:00 PM CDT Surgery Nurse Supervisor Seaming Skin Alert Assessment: Complete this section only [...] lying flat? No Do you have any protestant or other objection to having a blood transfusion? No Teaching: Preoperative education was done with (x) patient (_) parent _. It was confirmed the patient/family member had received the following preoperative education sheets:Checklist For Surgical Patients ([id number]),???Surgical Site Infections: Reducing Your Risk ([id number]), Speak Up: Antibiotics ([id number]), Acute Pain and the Healing Process ([id number]) with the Integrative Medicine and Health ([id number]), and ???Appointments Required Before Your Surgery?? (no MC). These were reviewed in detail. (x) Preoperative medication education provided through Ask [place] Expert (x) Preoperative COVID-19 testing ordered and discussed with patient Total Joint Class scheduled: (x) N/A Date:_ Knee Manipulation-CPM set-up: (_) N/A (x) Yes and PT notified (_)Total Joint Surgery: Total Joint Class (good for one year). (_) Reviewed Hibiclens packet and reviewed Reducing Your Risk of Surgical Infection ([id number]). (_)Preop OT appt (total shoulders only). (_) Reviewed Hibiclens packet and reviewed Reducing Your Risk of Surgical Infection ([id number]) NA (x) CT preop for BARBER Robotic Assist? Y/N (_) Date (_) N/A (_) Additional Pamphlets also reviewed: (_)Parental Presence in the Operating Room (agH:Order Sets/Surgery/Home Instructions/TonsillectomyTeaching Checklist/PE Tubes Teaching Sheet 11/17/11) (_) Shoulder Replacement Surgery: Anatomic Prosthesis ([id number]) and reviewed teaching points for total shoulders instructions. (_) Shoulder Replacement Surgery: Reverse Prosthesis ([id number]) and reviewed teaching points for total shoulders [...] appointments: 1st po with surgeon or physician billing assistant: (x) made (_)TBD (_)PO OT appt made (Hand surgery if requested) documented in this encounter Plan of Treatment Not on filedocumented as of this encounter Visit Diagnoses Diagnosis Preanesthetic Medical Exam - Primary Preoperative Exam documented in this encounter Care Teams Handstitching Machine Collar Feller Relationship Specialty Start Date End Date Elsewhere, Pcp PCP - General 06/07/19 documented as of this encounter
--- OUTSIDE RECORDS SUMMARY | 2022-02-07 14:29 | XMS_ITS | Encounter Summary ---
:1960 Author Organization [facility] Address [address] [place] [address] Care Team Providers Name Role Phone Elsewhere, Pcp Primary Care Provider Unavailable Reason for Referral Physical Therapy (Routine) - Closed Specialty Diagnoses / Procedures Referred By Contact Refer red To Contact Diagnoses Arthroplasty Total Knee Replacement Status Post Left Pain Knee Left Dk Mijares M.D. [facility] Procedures PT Evaluate and treat [address] [place] [phone] Referral ID Status Reason Start Date Expiration Date Visits Requ ested Visits Authorized [id number] Closed 09/18/2021 09/18/2022 1 1 Outpatient (Routine) - Closed Specialty Diagnoses / Procedures Referred By Contact Refer red To Contact Orthopedic Surgery Diagnoses post op Dk Mijares M.D. [facility] [address] [phone] Referral ID Status Reason Start Date Expiration Date Visits Requ ested Visits Authorized [id number] Closed 09/18/2021 09/18/2022 1 1 Outpatient (Routine) - Closed Specialty Diagnoses / Procedures Referred By Contact Refer red To Contact Anesthesiology Diagnoses Preoperative Exam Dk Mijares M.D. [facility] [address] [phone] Referral ID Status Reason Start Date Expiration Date Visits Requ ested Visits Authorized [id number] Closed 09/18/2021 09/18/2022 1 1 Encounter Details Date Type Department Care Team Description 09/18/2021 Clinical Communication Department of Dk Mijares , Orthopedic Surgery in [place], [place] [address] [place] [address] [place] [phone] Social History Tobacco Use Types Packs/Day Years [...] you attend restorationism or Patient refused 2021 jew services? 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 - 09/18/2021 2:26 PM CDT Scheduled left knee manipulation on 10/03/[address] Mijares in [place]. CPM ordered and faxed. documented in this [...] RNA, V Asymptomatic (10/01/2021 9:51 AM CDT) [facility] Method Time Signature SARS-CoV-2 Swab, 10/01/2021 [...] pe rformed using the Aptima SARS-CoV-2 assay ([employer] on the [employer] tem under emergency use authorization (EUA) by the U.S. Food and Drug Administ ration. Fact sheets for this EUA assay can be fo und at the following links: For Healthcare Providers: https://www.fd a.gov/media/875691/download For Patients: https://www.fda.gov/media/ 843957/download Specimen Anatomical Collection Method Collection Time Receive d Time (Source) Location / / Volume Laterality Varies 10/01/2021 9:51 AM 3:09 (Nasopharynx) CDT PM CDT Dk M Mijares M.D. LAB MICROBIOLOGY - GENERAL O RDERABLES Performing Organization Address City/State/ZIP Code Phon e Number [facility] [address] [place] [address] [phone] [facility] [place] [address] [address] documented in this encounter Visit Diagnoses Diagnosis Encounter For Preprocedural Laboratory E xamination (COVID-19) - Primary Arthroplasty Total Knee Replacement Stat us Post Left Pain Knee Left Preoperative Exam documented in this encounter Care Teams Tunnel Kiln Repairer Relationship Specialty Start Date End Date Elsewhere, Pcp PCP - General 06/07/19 documented as of this encounter
--- OUTSIDE RECORDS SUMMARY | 2022-02-07 14:29 | XMS_ITS | Encounter Summary ---
:1960 Author Organization [facility] Address [address] [place] [address] Care Team Providers Name Role Phone Elsewhere, [...] you attend mormon or Patient refused 2021 pentecostalism services? 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
--- OUTSIDE RECORDS SUMMARY | 2022-02-07 14:29 | XMS_ITS | Encounter Summary ---
:1960 Author Organization [facility] Address [address] [place] [address] Care Team Providers Name Role Phone Elsewhere, Pcp Primary Care Provider Unavailable Reason for Visit Reason Comments Arthroplasty Concerned about ROM Post-op Concerned about ROM Outpatient (Routine) - Pending Review Specialty Diagnoses / Procedures Referred By Contact Refer red To Contact Orthopedic Surgery Diagnoses post op Dk Mijares M.D. [facility] [address] [place] [phone] Referral ID Status Reason Start Date Expiration Date Visits V isits Requested Authorized [id number] Pending 08/21/2021 08/21/2022 1 1 Review Encounter Details Date Type Department Care Team Description 09/18/2021 Office Visit Department of Dk Mijares Follow Up E xamination Orthopedic Surgery meli Bui M.D. Postoperative Visit Arun Garcia [address] [place] [address] (Primary Dx) [place], [place] [address] [place] [phone] MIRZAMELITA GARCIA [place] [phone] (Work) [phone] Social History Tobacco Use Types Packs/Day Years [...] you attend mosque or Patient refused 2021 anabaptism services? Do [...] at Date Recorded Male 06/23/2021 7:46 PM MEDICAL ATTENDANT documented as of this encounter Consult Notes [...] Primary documented in this encounter Care Teams Surveillance Inspector Relationship Specialty Start Date End Date Elsewhere, Pcp PCP - General 06/07/19 documented as of this encounter
--- OUTSIDE RECORDS SUMMARY | 2022-02-07 14:29 | XMS_ITS | Encounter Summary ---
:1960 Author Organization [facility] Address [address] [place] [address] Care Team Providers Name Role Phone Elsewhere, Pcp Primary Care Provider Unavailable Reason for Visit Physical Therapy (Routine) - Authorized Specialty Diagnoses / Procedures Referred By Contact Refer red To Contact Diagnoses Primary Osteoarthritis Knee Left Dk Mijares M.D. [facility] Procedures PT Ongoing treatment [address] [place] [phone] Referral ID Status Reason Start Date Expiration Date Visits V isits Requested Authorized [id number] Authorized 08/10/2021 05/18/2022 40 40 Encounter Details Date Type Department Care Team Description 09/13/2021 Clinical Support Department of Dk Mijares M.D. [address] [place] [phone] Primary Rehabilitation Dian Clarke, P.T. [address] [place] [address] [place] [address] Osteoarthritis Knee Services in [address] [phone] Social History Tobacco Use Types Packs/Day Years [...] you attend holiness or Patient refused 2021 catholic services? Do you belong to any clubs or No 12/20/2021 organizations such as holiness groups, unions, fraThoughtful Media or athletic groups, or school groups? 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 - 09/13/2021 9:15 AM CDT Physical Therapy Outpatient Treatment Note SUBJECTIVE Patient's Name: Hussein Whittaker Referring Provider: Dk Mijares M.D. Visit Diagnosis: 1. Primary Osteoarthritis Knee Left Payor: TRAVELERS INSURANCE / Plan: TRAVELERS INSURANCE / Product Type: Indemnity / PT Next Certification Date: 08/08/2021 [facility] Visit Count: 11 Patient comments: He [...] Left documented in this encounter Care Teams Recruiting Assistant Relationship Specialty Start Date End Date Elsewhere, Pcp PCP - General 06/07/19 documented as of this encounter
--- OUTSIDE RECORDS SUMMARY | 2022-02-07 14:29 | XMS_ITS | Encounter Summary ---
:1960 Author Organization [facility] Address [address] [place] [address] Care Team Providers Name Role Phone Elsewhere, Pcp Primary Care Provider Unavailable Reason for Visit Physical Therapy (Routine) - Authorized Specialty Diagnoses / Procedures Referred By Contact Refer red To Contact Diagnoses Primary Osteoarthritis Knee Left Dk Mijares M.D. [facility] Procedures PT Ongoing treatment [address] [place] [phone] Referral ID Status Reason Start Date Expiration Date Visits V isits Requested Authorized [id number] Authorized 08/10/2021 05/18/2022 40 40 Encounter Details Date Type Department Care Team Description 08/15/2021 Clinical Support Department of Dk Mijares M.D. [address] [place] [phone] Primary Rehabilitation Dian Clarke, P.T. [address] [place], [place] [address] [place] [address] Osteoarthritis Knee Services in [address] [phone] Social History Tobacco Use Types Packs/Day Years [...] you attend religion or Patient refused 2021 druze services? Do you belong to any clubs or No 12/20/2021 organizations such as religion groups, unions, fraOcapo or athletic groups, or school groups? How [...] at Date Recorded Male 06/23/2021 7:46 PM ENGROSSER documented as of this encounter Progress Notes Dian Clarke P.T. - 08/15/2021 12:45 PM CDT Physical Therapy Outpatient Treatment Note SUBJECTIVE Patient's Name: Hussein Whittaker Referring Provider: Dk Mijares M.D. Visit Diagnosis: 1. Primary Osteoarthritis Knee Left Payor: TRAVELERS INSURANCE / Plan: TRAVELERS INSURANCE / Product Type: Indemnity / PT Next Certification Date: 08/08/2021 [facility] Visit Count: 3 Patient comments: Patient is [...] Left documented in this encounter Care Teams Independent Living Specialist Relationship Specialty Start Date End Date Elsewhere, Pcp PCP - General 06/07/19 documented as of this encounter
--- OUTSIDE RECORDS SUMMARY | 2022-02-07 14:30 | XMS_ITS | Encounter Summary ---
:1960 Author Organization [facility] Address [address] [place] [address] Care Team Providers Name Role Phone Elsewhere, Pcp Primary Care Provider Unavailable Reason for Visit Outpatient (Routine) - Pending Review Specialty Diagnoses / Procedures Referred By Contact Refer red To Contact Anesthesiology Diagnoses Primary Osteoarthritis Knee Left Dk Mijares, [facility] [address] [place] [address] Referral ID Status Reason Start Date Expiration Date Visits V isits Requested Authorized [id number] Pending 06/28/2021 06/28/2022 1 1 Review Encounter Details Date Type Department Care Team Description 07/30/2021 Virtual Visit Preoperative Dk Mijares M.D. [address] [place] [phone] Preanesthetic Medical Exam (Primary Dx); Evaluation Center in [place]lei[place]ann[place] gardner R.N. [address] [place] [address] Primary Osteoarthritis Knee Left [place], [place] [address] [place] [phone] Social History Tobacco Use Types Packs/Day [...] you attend sabianism or Patient refused 2021 catholic services? Do you belong to any clubs or No 12/20/2021 organizations such as sabianism groups, unions, fraSiXtron Advanced Materials or athletic groups, or school groups? How [...] at Date Recorded Male 06/23/2021 7:46 PM SAT MATH TUTOR documented as of this encounter Progress Notes Shannan Moseley R.N. - 07/30/2021 3:00 PM CDT Surgery Nurse Fingerprint Technician Skin Alert Assessment: Complete this section only [...] lying flat? No Do you have any catholic or other objection to having a blood transfusion? No Teaching: Preoperative education was done with (x) patient (_) parent _. It was confirmed the patient/family member had received the following preoperative education sheets:Checklist For Surgical Patients ([id number]),???Surgical Site Infections: Reducing Your Risk ([id number]), Speak Up: Antibiotics ([id number]), Acute Pain and the Healing Process ([id number]) with the Integrative Medicine and Health ([id number]), and ???Appointments Required Before Your Surgery?? (no MC). These were reviewed in detail. (x) Preoperative medication education provided through Ask [place] Expert (x) Preoperative COVID-19 testing ordered and discussed with patient Total Joint Class scheduled: (_) N/A Date: 07/24 Knee Manipulation-CPM set-up: (x) N/A (_) Yes and PT notified (x)Total Joint Surgery: Total Joint Class (good for one year). (x) Reviewed Hibiclens packet and reviewed Reducing Your Risk of Surgical Infection ([id number]). (_)Preop OT appt (total shoulders only). (_) Reviewed Hibiclens packet and reviewed Reducing Your Risk of Surgical Infection ([id number]) NA (x) CT preop for BARBER Robotic Assist? Y/N (Y) Date (07/02/21) N/A (_) Additional Pamphlets also reviewed: (_)Parental Presence in the Operating Room (agH:Order Sets/Surgery/Home Instructions/TonsillectomyTeaching Checklist/PE Tubes Teaching Sheet 11/17/11) (_) Shoulder Replacement Surgery: Anatomic Prosthesis ([id number]) and reviewed teaching points for total shoulders instructions. (_) Shoulder Replacement Surgery: Reverse Prosthesis ([id number]) and reviewed teaching points for total shoulders [...] appointments: 1st po with surgeon or physician media center assistant: (x) made (_)TBD (_)PO OT appt made (Hand surgery if requested) documented in this encounter Plan of Treatment Not on filedocumented as of this encounter Visit Diagnoses Diagnosis Preanesthetic Medical Exam - Primary Primary Osteoarthritis Knee Left documented in this encounter Care Teams Meat Stocker Relationship Specialty Start Date End Date Elsewhere, Pcp PCP - General 06/07/19 documented as of this encounter
--- OUTSIDE RECORDS SUMMARY | 2022-02-07 14:30 | XMS_ITS | Encounter Summary ---
:1960 Author Organization [facility] Address [address] [place] [address] Care Team Providers Name Role Phone Elsewhere, [...] you attend spiritism or Patient refused 2021 muslim services? 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 documented in this encounter Results Colonoscopy-Gastroenterology Image Exam (04/18/2021 1:40 PM SECURITIES LENDING TRADER) Specimen (Source) Anatomical Collection Method Collection Time Re ceived Time Location / / Volume Laterality 04/18/2021 1:36 PM SECURITIES LENDING TRADER Narrative [facility] - 04/18/2021 2:21 PM SECURITIES LENDING TRADER This order has been created and auto-finalized [...] on filedocumented in this encounter Care Teams Nurse Assessor Relationship Specialty Start Date End Date Elsewhere, Pcp PCP - General 06/07/19 documented as of this encounter
--- OUTSIDE RECORDS SUMMARY | 2022-02-07 14:30 | XMS_ITS | Encounter Summary ---
:1960 Author Organization [facility] Address [address] [place] [address] Care Team Providers Name Role Phone Elsewhere, Pcp Primary Care Provider Unavailable Reason for Visit Reason Comments Pre-op Exam Surgery on 08/06 Outpatient (Routine) - Pending Review Specialty Diagnoses / Procedures Referred By Contact Refer red To Contact Family Medicine Diagnoses Primary Osteoarthritis Knee Left Dk Mijares, [facility] [address] [address] Referral ID Status Reason Start Date Expiration Date Visits V isits Requested Authorized [id number] Pending 06/28/2021 06/28/2022 1 1 Review Encounter Details Date Type Department Care Team Description 07/17/2021 Office Visit Department of Chica Diaz Preop erative Exam (Primary Dx); Medicine, Yuki Bui, ANA, C.N.P., Primary Osteoarthritis Knee Left; [facility], in D.N.P. Hypertension Essential Primary; [place] [address] Morbid Sandra re Obesity Due To Excess Calories (HCC); [facility] Gastroesophageal Reflux Disease Without Esophagitis [address] [place] [address] Yuki Garcia [place] JULIAN MCLEAN [phone] Social History Tobacco Use Types Packs/Day [...] you attend taoism or Patient refused 2021 sabianist services? Do you belong to any clubs or No 12/20/2021 organizations such as taoism groups, unions, fraGreen Clean or athletic groups, or school groups? How [...] Date Recorded Male 06/23/2021 7:46 PM COMMERCIAL LEASING AGENT documented as of this encounter Last Filed Vital Signs Vital Sign Reading Time Taken Comments Blood Pressure 119/82 07/17/2021 3:49 PM COMMERCIAL LEASING AGENT Pulse 88 07/17/2021 3:49 PM COMMERCIAL LEASING AGENT Temperature 36.4 ??C (97.5 ??F) 07/17/2021 3:49 PM COMMERCIAL LEASING AGENT Respiratory Rate - - Oxygen Saturation 98% 07/17/2021 3:49 PM COMMERCIAL LEASING AGENT Inhaled Oxygen Concentration - - Weight 117 kg (257 lb 0.9 oz) 07/17/2021 3:49 PM COMMERCIAL LEASING AGENT Height 181.5 cm (5' 11.46) 07/17/2021 3:49 PM COMMERCIAL LEASING AGENT Body Mass Index 35.39 07/17/2021 3:49 PM COMMERCIAL LEASING AGENT documented in this encounter Progress Notes Chica [...] of the content. Total time: 20 minutes ERCIAL LEASING AGENT documented in this encounter Plan of Treatment Not on filedocumented as of this encounter Procedures Procedure Name Priority Date/Time Associated Diagnosis Comme nts CBC WITHOUT Routine 07/17/2021 4:40 PM Preoperative Exam Resu lts for this DIFFERENTIAL, B COMMERCIAL LEASING AGENT procedure ar e in the results section. BASIC METABOLIC Routine 07/17/2021 4:40 PM Preoperative Exam R esults for this PANEL, S/P COMMERCIAL LEASING AGENT procedure are i n the results section. documented in this encounter Results CBC without Differential (07/17/2021 4:40 PM COMMERCIAL LEASING AGENT) P athologist Signature Hemoglobin 14.3 13.2 - 07/17/2021 CNFL 16.6 g/dL 4:50 PM COMMERCIAL LEASING AGENT Hematocrit 42.4 38.3 - 07/17/2021 CNFL 48.6 % 4:50 PM COMMERCIAL LEASING AGENT Erythrocytes 4.46 4.35 - 07/17/2021 CNFL 5.65 4:50 PM COMMERCIAL LEASING AGENT x10(12)/L MCV 95.1 78.2 - 07/17/2021 CNFL 97.9 fL 4:50 PM COMMERCIAL LEASING AGENT RBC Distrib Width 12.5 11.8 - 07/17/2021 CNFL 14.5 % 4:50 PM COMMERCIAL LEASING AGENT Platelet Count 241 135 - 317 07/17/2021 CNFL x10(9)/L 4:50 PM COMMERCIAL LEASING AGENT Leukocytes 8.4 3.4 - 9.6 07/17/2021 CNFL x10(9)/L 4:50 PM COMMERCIAL LEASING AGENT Specimen Anatomical Collection Method Collection Time Receive d Time (Source) Location / / Volume Laterality Blood (Blood, 07/17/2021 4:40 PM 07/18/19 4:45 Venous) COMMERCIAL LEASING AGENT PM COMMERCIAL LEASING AGENT Chica Rodriguez APRN, C.N.P., D.N.P. LAB BLOOD ADD-ON Performing Organization Address City/State/[facility] Code Phon e Number [address] [address] [place] [address] System in [address] Basic Metabolic Panel (07/17/2021 4:40 PM COMMERCIAL LEASING AGENT) P athologist Signature Potassium, P 3.7 3.6 - 5.2 07/17/2021 CNFL mmol/L 5:06 PM COMMERCIAL LEASING AGENT Sodium, P 140 135 - 145 07/17/2021 CNFL mmol/L 5:06 PM COMMERCIAL LEASING AGENT Chloride, P 102 98 - 107 07/17/2021 CNFL mmol/L 5:06 PM COMMERCIAL LEASING AGENT Bicarbonate, P 28 22 - 29 07/17/2021 CNFL mmol/L 5:06 PM COMMERCIAL LEASING AGENT Anion Gap, P 10 7 - 15 07/17/2021 CNFL 5:06 PM COMMERCIAL LEASING AGENT BUN (Blood Urea 20 8 - 24 07/17/2021 CNFL Nitrogen), P mg/dL 5:06 PM COMMERCIAL LEASING AGENT Creatinine 1.05 0.74 - 07/17/2021 CNFL 1.35 mg/dL 5:06 PM COMMERCIAL LEASING AGENT eGFR-Black/Afric 88 >=60 07/17/2021 CNFL an [place] mL/min/BSA 5:06 PM COMMERCIAL LEASING AGENT Comment: ----ADDITIONAL INFORMATION---- Estimated GFR calculated using the 2009 CKD_EPI creatinine equation. eGFR Non-Black/ 76 >=60 mL/min/BSA 5:06 PM COMMERCIAL LEASING AGENT CNFL Comment: ----ADDITIONAL INFORMATION---- Estimated GFR calculated using the 2009 CKD_EPI creatinine equation. Calcium, Total, P 10.2 8.8 - 10.2 mg/dL 07/17/2021 5:06 PM COMMERCIAL LEASING AGENT CNFL Glucose, P 120 70 - 140 mg/dL 07/17/2021 5:06 PM COMMERCIAL LEASING AGENT C NFL Specimen Anatomical Collection Method Collection Time Receive d Time (Source) Location / / Volume Laterality Blood (Blood, 07/17/2021 4:40 PM 07/18/19 4:45 Venous) COMMERCIAL LEASING AGENT PM COMMERCIAL LEASING AGENT Chica Rodriguez APRN C.N.P., D.N.P. LAB BLOOD ADD-ON Performing Organization Address City/State/ZIP Code Phon e Number [address] [place] [address] System [address] documented in this encounter Visit Diagnoses Diagnosis Preoperative Exam - Primary Primary Osteoarthritis Knee Left Hypertension Essential Primary Morbid Severe Obesity Due To Excess Mary myra (HCC) Gastroesophageal Reflux Disease Without Esophagitis documented in this encounter Care Teams Media Arts Professor Relationship Specialty Start Date End Date Elsewhere, Pcp PCP - General 06/07/19 documented as of this encounter
--- OUTSIDE RECORDS SUMMARY | 2022-02-07 14:30 | XMS_ITS | Encounter Summary ---
:1960 Author Organization [facility] Address [address] [place] [address] Care Team Providers Name Role Phone Elsewhere, Pcp Primary Care Provider Unavailable Reason for Visit Reason Comments schedule colonoscopy CF screening Encounter Details Date Type Department Care Team Description 03/27/2021 Clinical Department of Dian Welch schedule Communication General Surgery in L, R.N. colonoscopy CF [place], [address] [place] [address] (screening) [address] [phone] Social History Tobacco Use Types Packs/Day Years [...] you attend baptism or Patient refused 2021 yazdanism services? Do [...] at Date Recorded Male 06/23/2021 7:46 PM NURSE AIDE documented as of this encounter Miscellaneous Notes Telephone Encounter - Dian Welch R.N. - 03/30/2021 1:07 PM NURSE AIDE 03-26 and 03-30 attempts to call patient done. Lmtcb E AIDE Telephone Encounter - Dian Welch R.N. - 03/27/2021 4:01 PM NURSE AIDE Patient has been waiting for a call, Do in CF if Wed has to be after April 18. Was a outside referral E AIDE documented in this encounter Plan of Treatment Not on filedocumented as of this encounter Visit Diagnoses Not on filedocumented in this encounter Care Teams Engine Turner Relationship Specialty Start Date End Date Elsewhere, Pcp PCP - General 06/07/19 documented as of this encounter
--- OUTSIDE RECORDS SUMMARY | 2022-02-07 14:30 | XMS_ITS | Encounter Summary ---
:1960 Author Organization [facility] Address [address] [place] [address] Care Team Providers Name Role Phone Elsewhere, Pcp Primary Care Provider Unavailable Reason for Visit Reason Comments Surgical Listing Orthopedics Encounter Details Date Type Department Care Team Description 06/28/2021 Clinical Communication Department of Dk Mijaresical Listing Orthopedic Surgery Adrian Bui (Orthopedics) in [address] [address] [place], [place] [phone] (Work) [phone] Social History Tobacco Use Types Packs/Day Years [...] you attend lutheran or Patient refused 2021 congregational services? Do [...] at Date Recorded Male 06/23/2021 7:46 PM DISPLAY MECHANIC documented as of this encounter Miscellaneous Notes Addendum Note - Natalie Moses R.N. - 07/31/2021 9:12 AM CDT Addended by: NATALIE MOSES on: 07/31/2021 09:12 AM Modules accepted: Orders Telephone Encounter - Natalie Moses R.N. - 07/31/2021 9:11 AM CDT Per Laurie Dumont, order for walker has been completed and faxed to [facility]. Telephone Encounter - Laurie Dumont APRN, C.N.P., D.N.P. - 07/30/2021 4:19 PM CDT Yes please. Thanks. Telephone Encounter - Dian Hayes L.P.N. - 07/30/2021 3:42 PM CDT Are you ok with me sending this now? Telephone Encounter - Shannan Moseley R.N. - 07/30/2021 3:36 PM CDT Patient is inquiring about getting a walker prescription sent to [facility]. Please advise. Thank you! Telephone Encounter - Lashell Singh L.P.N. - 06/28/2021 4:15 PM DISPLAY MECHANIC Scheduled Left total knee arthroplasty- [place] on 08/06/[address] performed by Dr[address] mijares. This is work comp LAY MECHANIC documented in this encounter Plan of Treatment Not on filedocumented as of this encounter Visit Diagnoses Diagnosis Primary Osteoarthritis Knee Left - Prima ry documented in this encounter Care Teams Skin Lap Bonder Relationship Specialty Start Date End Date Elsewhere, Pcp PCP - General 06/07/19 documented as of this encounter
--- OUTSIDE RECORDS SUMMARY | 2022-02-07 14:30 | XMS_ITS | Encounter Summary ---
:1960 Author Organization [facility] Address [address] [place] [address] Care Team Providers Name Role Phone Elsewhere, Pcp Primary Care Provider Unavailable Encounter Details Date Type Department Care Team Description 08/03/2021 Hospital Encounter Department of Dk Mijares Osteoarthritis Laboratory Medicine Adrian Bui Knee Left in [place] [phone] [facility] [phone] [place], [place] (Work) [phone] Social History Tobacco Use [...] you attend adventist or Patient refused 2021 church services? Do [...] at Date Recorded Male 06/23/2021 7:46 PM CREATIVE DESIGNER documented as of this encounter Medications at [...] Associated Diagnosis Comme nts SARS CORONAVIRUS-2 Routine 08/03/2021 10:33 Primary Osteoarthr itis Results for this RNA, V AM CDT Knee Left procedure are i n the results section. documented in this encounter Results SARS Coronavirus-2 RNA, V Asymptomatic (08/03/2021 10:33 AM CDT) [facility] Method Time Signature SARS-CoV-2 Swab, 08/03/2021 ECLR [...] pe rformed using the Aptima SARS-CoV-2 assay ([employer] on the [employer] tem under emergency use authorization (EUA) by the U.S. Food and Drug Administ ration. Fact sheets for this EUA assay can be fo und at the following links: For Healthcare Providers: https://www.fd a.gov/media/676652/download For Patients: https://www.fda.gov/media/ 381073/download Specimen Anatomical Collection Method Collection Time Receive d Time (Source) Location / / Volume Laterality Varies 08/03/2021 10:33 08/03/2021 2:31 (Nasopharynx) AM CDT PM CDT Dk Mijares M.D. LAB MICROBIOLOGY - GENERAL O KAYA Performing Organization Address City/State/ZIP Code Phon e Number [facility]- [address] [place] [phone] [facility] [place] [address] System [address] documented in this encounter Visit Diagnoses Diagnosis Primary Osteoarthritis Knee Left documented in this encounter Additional Health Concerns Infection Onset Date Last Indicated Resolved Time COVID19 Pending 08/03/2021 08/03/2021 08/03/2021 7:25 PM CDT documented as of this encounter Care Teams Facialist Relationship Specialty Start Date End Date Elsewhere, Pcp PCP - General 06/07/19 documented as of this encounter
--- OUTSIDE RECORDS SUMMARY | 2022-02-07 14:30 | XMS_ITS | Encounter Summary ---
:1960 Author Organization [facility] Address [address] [place] [address] Care Team Providers Name Role Phone Elsewhere, Pcp Primary Care Provider Unavailable Reason for Visit Reason Comments Endoscopy referral Encounter Details Date Type Department Care Team Description 04/03/2021 Clinical Communication Department of Maria Luisa Shin General Surgery in R, R.N. (referral) [address] [facility] [address] [place], [place] [phone] [phone] (Work) [phone] Social History Tobacco Use Types Packs/Day Years [...] you attend caodaism or Patient refused 2021 restoration services? 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 - 04/03/2021 1:20 PM CST DUPLICATE ENTRY FOR REFERRAL Y BOOTH OPERATOR documented in this encounter Plan of Treatment Not on filedocumented as of this encounter Visit Diagnoses Not on filedocumented in this encounter Care Teams Timber Cruiser Relationship Specialty Start Date End Date Elsewhere, Pcp PCP - General 06/07/19 documented as of this encounter
--- OUTSIDE RECORDS SUMMARY | 2022-02-07 14:30 | XMS_ITS | Encounter Summary ---
:1960 Author Organization [facility] Address [address] [place] [address] Care Team Providers Name Role Phone Elsewhere, Pcp Primary Care Provider Unavailable Encounter Details Date Type Department Care Team Description 05/30/2021 Hospital Encounter Department of Ashley Chapman strative Purpose Laboratory Medicine Adrian Mcgarry Exam in [address] [address] [place], [place] [phone] (Work) [phone] Social History Tobacco Use Types Packs/Day Years [...] you attend episcopalian or Patient refused 2021 mu-ism services? Do [...] at Date Recorded Male 06/23/2021 7:46 PM LEATHER STAKER documented as of this encounter Medications at [...] Exam documented in this encounter Care Teams Daytime Babysitter Relationship Specialty Start Date End Date Elsewhere, Pcp PCP - General 06/07/19 documented as of this encounter
--- OUTSIDE RECORDS SUMMARY | 2022-02-07 14:30 | XMS_ITS | Encounter Summary ---
:1960 Author Organization [facility] Address [address] [place] [address] Care Team Providers Name Role Phone Elsewhere, Pcp Primary Care Provider Unavailable Reason for Referral Outpatient (Routine) - Closed Specialty Diagnoses / Procedures Referred By Contact Refer red To Contact Family Medicine Diagnoses Screening Cancer Colon Delvin Booker M.D. [facility] [address] [place] [address] Referral ID Status Reason Start Date Expiration Date Visits Requ ested Visits Authorized [id number] Closed 03/30/2021 03/30/2022 1 1 SLATIVE ASSISTANT Reason for Visit Reason Comments colonoscopy scheduled Encounter Details Date Type Department Care Team Description 03/30/2021 Clinical Department of Dian Welch colonoscop y Communication General Surgery in L, R.N. scheduled [place], [address] [place] [phone] Social History Tobacco Use Types Packs/Day Years [...] you attend yazdanism or Patient refused 2021 jainism services? Do [...] at Date Recorded Male 06/23/2021 7:46 PM LEGISLATIVE ASSISTANT documented as of this encounter Miscellaneous Notes [...] physical can be completed prior. Thank you. SLATIVE ASSISTANT Telephone Encounter - Dian Welch R.N. - 03/30/2021 2:54 PM LEGISLATIVE ASSISTANT Procedure: Upper Endoscopy with Brock: If yes, proton pump inhibitor needs to be held for 5 days prior to scope Colonoscopy Indication for procedure: screening Date: 04-18-21 Location: [facility] Surgeon: Dr. Booker PCP: ESTELLE, PCP (home) [phone] (mobile) Comments: COVID-19 swab Date/Status: ordered Inpatient [...] need anesthesia approval BMI >55 refer to [facility] Height: Height: 181 cm (01/23/2021 3:11 PM) Actual Weight: Weight: 116 kg (01/23/2021 3:11 PM) Estimated Weight: No data recorded BMI: Estimated body mass index is 35.38 kg/m?? as calculated from the following: Height as of 01/23/21: 181 cm. Weight as of 01/23/21: 116 kg. Diabetic notype of diabetic medication: n/a Educated per [facility] Patient Education: Diabetes Medication Instructions: Tests, Procedures, [...] If yes, only okay to schedule in [facility] Last date interrogated: N/A (if [...] arrival time and that they need a driver trainee: yes Patient verbalizes understanding of education provided and number to call if questions arise: [facility] End[facility] [phone] yes Additional Comments: N/A If patient is concerned he is not empting pre-procedural, please call the listed number, based on location, the morning of. [phone] [place] [facility] [phone] [facility] [phone] [facility] [phone] [place] [facility] [phone] [facility] SLATIVE ASSISTANT documented in this encounter Plan of Treatment Scheduled Referrals Name Type Priority Associated Diagnoses Order [facility] - YARITZA Outpatient Referral Routine Screening Cance r Expected: consult (clinic) Colon 03/30/2021 (Approximate), Expires: 03/30/2024 documented as of this encounter Results SARS Coronavirus-2 RNA, V Asymptomatic (04/15/2021 10:24 AM LEGISLATIVE ASSISTANT) [facility] Method Time Signature SARS-CoV-2 Swab, 04/15/2021 ECLR Specimen Nasopharynx 8:55 PM LEGISLATIVE ASSISTANT Source SARS CoV-2 Undetected Undetected 04/15/2021 ECLR RNA, TMA 8:55 PM LEGISLATIVE ASSISTANT Comment: SARS-CoV-2 RNA absent. This result does not rule out COVID-19 in the patient, as the sensitivity of the test depends o n the timing of the specimen collection and the quality of the specim en. Result should be correlated with patient's history and clinical presentat ion. ----ADDITIONAL INFORMATION---- This molecular amplification test was pe rformed using the Aptima SARS-CoV-2 assay ([employer] on the [employer] tem under emergency use authorization (EUA) by the U.S. Food and Drug Administ ration. Fact sheets for this EUA assay can be fo und at the following links: For Healthcare Providers: https://www.fd a.gov/media/257117/download For Patients: https://www.fda.gov/media/ 587337/download Specimen Anatomical Collection Method Collection Time Receive d Time (Source) Location / / Volume Laterality Varies 04/15/2021 10:24 04/15/2021 3:00 (Nasopharynx) AM LEGISLATIVE ASSISTANT PM LEGISLATIVE ASSISTANT Delvin Booker M.D. LAB MICROBIOLOGY - GENERAL O RDERABLES Performing Organization Address City/State/ZIP Code Phon e Number [facility]- [facility] [place], [place] [address] [facility] [address] System in [address] documented in this encounter Visit Diagnoses Diagnosis Screening Cancer Colon - Primary documented in this encounter Care Teams Mortgage Loan Reviewer Relationship Specialty Start Date End Date Elsewhere, Pcp PCP - General 06/07/19 documented as of this encounter
--- OUTSIDE RECORDS SUMMARY | 2022-02-07 14:30 | XMS_ITS | Encounter Summary ---
:1960 Author Organization [facility] Address [address] [place] [address] Care Team Providers Name Role Phone Elsewhere, Pcp Primary Care Provider Unavailable Reason for Referral MRI/CAT/PET Scan (Routine) - Closed Specialty Diagnoses / Procedures Referred By Contact Refer red To Contact Radiology Diagnoses Primary Osteoarthritis Knee Left Dk Mijares M.D. [facility] [place] [facility] Procedures CT Knee Left without IV Contrast [address] [facility] [place] [address] Referral ID Status Reason Start Date Expiration Date Visits Requ ested Visits Authorized [id number] Closed 07/02/2021 08/01/2021 1 1 TAMP OPERATOR Reason for Visit MRI/CAT/PET Scan (Routine) - Closed Specialty Diagnoses / Procedures Referred By Contact Refer red To Contact Radiology Diagnoses Primary Osteoarthritis Knee Left Dk [facility]ares M.D. [facility] [place] [facility] CT Knee Left without IV Contrast [address] [facility] [place] [address] Referral ID Status Reason Start Date Expiration Date Visits Requ ested Visits Authorized [id number] Closed 07/02/2021 08/01/2021 1 1 Encounter Details Date Type Department Care Team Description 07/02/2021 Hospital Encounter Department of Dk Mijares Osteoarthritis Radiology in Ykui Bui M.D. Knee Left [place], [place] [address] [facility] [address] [place] [address] [place] [facility] [address] [place] [phone] (Work) [phone] Social History Tobacco Use Types Packs/Day Years [...] you attend taoism or Patient refused 2021 methodist services? Do you belong to any clubs or No 12/20/2021 organizations such as taoism groups, unions, fraThe Fred Rogers or athletic groups, or school groups? How [...] at Date Recorded Male 06/23/2021 7:46 PM JACK TAMP OPERATOR documented as of this encounter Medications [...] Results for WITHOUT IV (most inpatients AM JACK TAMP OPERATOR Osteoarthritis Knee this procedure CONTRAST and all Left are in the outpatients) results section. documented in this encounter Results CT Knee Left without IV Contrast (07/02/2021 8:44 AM JACK TAMP OPERATOR) Anatomical Region Laterality Modality Lower Extremity, Knee, Musculoskeletal RST LOS, Left Computed Tomography Musculoskeletal ARZ LOS, Muskuloskeletal FLA LOS Specimen (Source) Anatomical Collection Method Collection Time Re ceived Time Location / / Volume Laterality 07/02/2021 8:56 AM JACK TAMP OPERATOR Impressions 07/02/2021 9:00 AM JACK TAMP OPERATOR Degenerative change. Narrative 07/02/2021 9:00 AM JACK TAMP OPERATOR EXAM: ??CT KNEE LEFT WITHOUT IV CONTRAST [...] Left documented in this encounter Care Teams Property Developer Relationship Specialty Start Date End Date Elsewhere, Pcp PCP - General 06/07/19 documented as of this encounter
--- OUTSIDE RECORDS SUMMARY | 2022-02-07 14:30 | XMS_ITS | Encounter Summary ---
:1960 Author Organization [facility] Address [address] [place] [address] Care Team Providers Name Role Phone Elsewhere, Pcp Primary Care Provider Unavailable Reason for Referral MRI/CAT/PET Scan (Routine) - Closed Specialty Diagnoses / Procedures Referred By Contact Refer red To Contact Radiology Diagnoses Primary Osteoarthritis Knee Left Dk Mijares M.D. [facility] [place] [facility] Procedures CT Knee Left without IV Contrast [address] [place] [address] Referral ID Status Reason Start Date Expiration Date Visits Requ ested Visits Authorized [id number] Closed 07/02/2021 08/01/2021 1 1 RVISOR DRY CLEANING Specialty Diagnoses / Procedures Referred By Contact Refer red To Contact Dk Mijares M .D. [facility] [place] [facility] [address] [place] [address] Referral ID Status Reason Start Date Expiration Date Visits Requ ested Visits Authorized Scheduling Instructions Left total knee arthroplasty hysical Therapy (Routine) - Pending Review Specialty Diagnoses / Procedures Referred By Contact Refer red To Contact Diagnoses Primary Osteoarthritis Knee Left Dk Mijares M.D. [facility] [place] [facility] Procedures PT Evaluate and treat [address] [place] [address] Referral ID Status Reason Start Date Expiration Date Visits V isits Requested Authorized [id number] Pending 06/28/2021 06/28/2022 1 1 Review [employer] Outpatient (Routine) - Pending Review Specialty Diagnoses / Procedures Referred By Contact Refer red To Contact Family Medicine Diagnoses Primary Osteoarthritis [facility]nee [facility] [address] [place] [phone] Referral ID Status Reason Start Date Expiration Date Visits V isits Requested Authorized [id number] Pending 06/28/2021 06/28/2022 1 1 Review [employer]IS[employer] Outpatient (Routine) - Pending Review Specialty Diagnoses / Procedures Referred By Contact Refer red To Contact Anesthesiology Diagnoses Primary Osteoarthritis Knee Left Dk Mijares [facility] Adrian [address] [place] [address] Referral ID Status Reason Start Date Expiration Date Visits V isits Requested Authorized [id number] Pending 06/28/2021 06/28/2022 1 1 Review [employer] Outpatient (Routine) - Pending Review Specialty Diagnoses / Procedures Referred By Contact Refer red To Contact Orthopedic Surgery Diagnoses Dk Mijares M.D. [facility] [address] [place] [phone] Referral ID Status Reason Start Date Expiration Date Visits V isits Requested Authorized [id number] Pending 06/28/2021 06/28/2022 1 1 Review [employer] Encounter Details Date Type Department Care Team Description 06/28/2021 Comprehensive Visit Department of Dk Mijares Orthopedic Surgery Adrian Bui Osteoarthritis Knee in Maldonado Flores, [address] [place], [place] [address]jesus Left (Primary Dx) [place] JULIAN Lassiter [address] [address] JULIAN LASSITER [phone] (Work) [phone] Social History Tobacco Use Types Packs/Day Years [...] you attend episcopalian or Patient refused 2021 confucianism services? Do [...] Date Recorded Male 06/23/2021 7:46 PM SUPERVISOR DRY CLEANING documented as of this encounter Consult Notes [...] to this procedure and desires to proceed. [employer] documented in this encounter Plan of Treatment Scheduled Referrals Name Type Priority Associated Diagnoses Order [facility] Orthopedic Surgery Outpatient Referral Routine Ex pected: [...] RNA, V Asymptomatic (08/03/2021 10:33 AM CDT) [facility] Method Time Signature SARS-CoV-2 Swab, 08/03/2021 [...] pe rformed using the Aptima SARS-CoV-2 assay ([employer] on the [employer]s tem under emergency use authorization (EUA) by the U.S. Food and Drug Administ ration. Fact sheets for this EUA assay can be fo und at the following links: For Healthcare Providers: https://www.[employer] a.gov/media/220416/download For Patients: https://www.fda.gov/media/ 745600/download Specimen Anatomical Collection Method Collection Time Receive d Time (Source) Location / / Volume Laterality Varies 08/03/2021 10:33 08/03/2021 2:31 (Nasopharynx) AM CDT PM CDT Dk Mijares M.D. LAB MICROBIOLOGY - GENERAL O RDERABLES Performing Organization Address City/State/ZIP Code Phon e Number [facility]- [address] [place] [address] [phone] [facility] [place] [address] Knee Left without IV Contrast (07/02/2021 8:44 AM SUPERVISOR DRY CLEANING) Anatomical Region Laterality Modality Lower Extremity, Knee, Musculoskeletal RST LOS, Left Computed Tomography Musculoskeletal ARZ LOS, Muskuloskeletal FLA LOS Specimen (Source) Anatomical Collection Method Collection Time Re ceived Time Location / / Volume Laterality 07/02/2021 8:56 AM SUPERVISOR DRY CLEANING Impressions 07/02/2021 9:00 AM SUPERVISOR DRY CLEANING Degenerative change. Narrative 07/02/2021 9:00 AM SUPERVISOR DRY CLEANING EXAM: ??CT KNEE LEFT WITHOUT IV CONTRAST [...] Left documented in this encounter Care Teams Bar Hostess Relationship Specialty Start Date End Date Elsewhere, Pcp PCP - General 06/07/19 documented as of this encounter
--- OUTSIDE RECORDS SUMMARY | 2022-02-07 14:30 | XMS_ITS | Encounter Summary ---
:1960 Author Organization [facility] Address [address] [place] [address] Care Team Providers Name Role Phone Elsewhere, Pcp Primary Care Provider Unavailable Encounter Details Date Type Department Care Team Description 03/29/2021 Orders Only [facility] Sa isadora Abraham M.D. [address] [place], [place] [phone] (Wo rk) Social History [...] or relatives? How often do you attend worship or Patient refused 2021 jehovah's witness services? Do you belong to any clubs or No 12/20/2021 organizations such as worship groups, unions, fraternal or athletic groups, or [...] at Date Recorded Male 06/23/2021 7:46 PM ONCOLOGY PHYSICIAN documented as of this encounter Plan of Treatment Not on filedocumented as of this encounter Visit Diagnoses Not on filedocumented in this encounter Care Teams Claim Taker Relationship Specialty Start Date End Date Elsewhere, Pcp PCP - General 06/07/19 documented as of this encounter
--- OUTSIDE RECORDS SUMMARY | 2022-02-07 14:30 | XMS_ITS | Encounter Summary ---
:1960 Author Organization [facility] Address [address] [place] [address] Care Team Providers Name Role Phone Elsewhere, Pcp Primary Care Provider Unavailable Reason for Visit Auth/Cert Specialty Diagnoses / Procedures Referred By Contact Refer red To Contact Diagnoses Primary Osteoarthritis Knee Left Primary Osteoarthritis Knee Left [M17.12] Procedures MT ARTHRO KNEE CONDYLE&PLAT (TKA) BARBER ROBOTIC-ASSISTED KNEE TOTAL ARTHROPLASTY - LEFT Referral ID Status Reason Start Date Expiration Date Visits Requ ested Visits Authorized [id number] 1 1 Encounter Details Date Type Department Care Team Description 08/06/2021 Surgery [facility] OR Dk Mijares MAKO ROBOTIC-ASSISTED [address] M.D. KNEE TOTAL [place] [address] [address] [phone] [place] [phone] (Wo rk) Social History Tobacco Use Types [...] you attend anglican or Patient refused 2021 jain services? Do you belong to any clubs [...] at Date Recorded Male 06/23/2021 7:46 PM GRIT BLASTER documented as of this encounter Last Filed [...] AM CDT DISCHARGE SUMMARY BRIEF OVERVIEW Hospital: [facility] Discharge Provider: Dk Mijares M.D. Primary Care [...] APRN, C.N.P., D.N.P.Laurie Dumont APRN, C.N.P., D.N.P. [facility] OR DISCHARGE DISPOSITION Home or Self [...] next session: DC home outpatient PT in [place] Inpatient AVS Complete - PT: Yes Time [...] home with outpatient therapy set up in [place] to address remaining impairments of range of [...] Procedure: COLONOSCOPY; Surgeon: Kavon Espino M.D.; Location: [facility] OR ??? 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 [facility]'s 3-year data, as reported at [facility] 2017, indicates a cut off of 39.4 or greater in daily activity is a fair to good accurate prediction of discharge home. Source: AM-PAC ???6 -Clicks?? functional assessment scores predict acute care hospital discharge destination. Mirror Department Supervisor. 2014 Jan; 94 (9): 1252-61. AM-PAC Activity: [...] while seated, threadingsurgical lower extremity 1st, using scrubber system attendant if needed; patient receptive Toileting Toileting Location: [...] a 60 y.o. year old admit to [facility] [place] [facility] following a left TKA on 08/06/2021. [...] recliner or while in bed ??? Obtain/utilize scrubber system attendant, sock aid, shower chair, and other AE/DME as needed to complete daily tasks Bathroom Safety Equipment ([id number]); Home Safety Tips ([id number]); Safe Car Transfer Handout; Adaptive Equipment Information [...] treat. TKA protocol Onset Date: 08/06/21 Payor: Mundi BLUE [employer] / Plan: [facility] [place] / Product Type: PPO / PERTINENT [...] Procedure: COLONOSCOPY; Surgeon: Kavon Espino M.D.; Location: [facility] OR ??? 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 SURGEON: Dk Mijares M.D. ENGINEERING DEPARTMENT CHAIR: Dr. Luis Fu A medication assistant actively participated and was necessary for [...] using #1 Vicryl in a n interrupted [id number]-dhfgc fashion followed by copious irrigation of subcutaneous [...] Organization Address City/State/ZIP Code Phon e Number [facility]- [address] [place], [place] [address] [place], [place] [address] [place] [address] System in [place] [address] [place] [address] documented in this encounter Visit Diagnoses Diagnosis [...] (TYLENOL) (COMPLETED) 0656 (Given - Provider: Lisbeth Caballero, R.N.) 1,000 mg, oral, Once, On Fri08/06/21 at 0645, For 1 dose, Pre-Op acetaminophen tablet 1,000 mg (TYLENOL) 1356 (Given - Provider: Kathy Beaver R.N.)2008 (Given - Provider: Clara Swann RFarshadN.) 0211 (Given - Provider: Clara Swann R.N.)0841 (Given - Provider: Carol Clemente R.N.) 1,000 mg, oral, Every 6 hours, First dose on Fri08/06/21 at 1400 ceFAZolin in dextrose (iso-osm) IVPB 2 g (ANCEF) (COMPLETED) 1618 (New Bag - Provider: Jeanine Jordan R.N.) 0018 (New Bag - Provider: Clara ricci R.N.) 2 g, intravenous, at 100 mL/hr, Administ er over 30 Minutes, Every 8 hours, First dose on Fri08/06/21 at 1600, For 2 doses, Start within 8 hours of last IV dose., Drug Monitoring Program: Pharmacist to a djust medication dosing based on indicat ion and drug clearance factors., Indications: Prophylaxis, surgical ceFAZolin injection 2,000 mg (ANCEF) (COMPLETED) 0830 (Given - Provider: Maeve Pino R.N.) 2,000 mg (rounded from 2,925 mg = [...] 0848 (Given - Provider: Keaton Valdez APRN, SCANNING SUPERVISOR) 1,000 mg (1 g), intravenous, at 300 [...] RFarshadNFarshad)0812 (Rate/Dose Verify - Provider: Keaton Valdez, HOP WEIGHER, SCANNING SUPERVISOR)0916 (New Bag - Provider: Maeve Pino R.N.)1030 (Anesthesia Volume Adjustment - Provider: Maeve Pino R.N.) 20 mL/hr, intravenous, Continuous, Starting on Fri08/06/21 at 06 45 lactated ringers 1230 (New Bag - Prov ider: Jeanine Jordan RFarshadNFarshad)1354 (New Bag - Provider: Kathy Beaver RFarshadNFarshad) 0833 (Stopped - Provider: Carol Clemente R.N.) 50 mL/hr, intravenous, Continuous, Starting on Fri08/06/21 [...] Provider: Keke Barney R.N.)1056 (Given - Provider: Keke Barney R.N.)1058 (Given [...] R.N.) 0841 (Given - Provider: Carol elam R.N.) 50 mg, oral, Every 6 hours PRN, [...] hours).
documented in this encounter Care Teams Panel Raiser Operator Relationship Specialty Start Date End Date Elsewhere, Pcp PCP - General 06/07/19 documented as of this encounter
--- OUTSIDE RECORDS SUMMARY | 2022-02-07 14:30 | XMS_ITS | Encounter Summary ---
:1960 Author Organization [facility] Address [address] [place] [address] Care Team Providers Name Role Phone Elsewhere, Pcp Primary Care Provider Unavailable Encounter Details Date Type Department Care Team Description 07/06/2021 Orders Only Department of Orthopedic Laurie Dumont APRN, Surgery in [place], C.N.P., D.N .P. [address] [place] [phone] [place] [address] [phone] Social History Tobacco Use Types Packs/Day Years [...] attend jehovah's witness or Patient refused 2021 evangelical services? Do [...] at Date Recorded Male 06/23/2021 7:46 PM BACTERIOLOGIST PHARMACEUTICAL documented as of this encounter Plan of Treatment Not on filedocumented as of this encounter Visit Diagnoses Not on filedocumented in this encounter Care Teams Oscillograph Technician Relationship Specialty Start Date End Date Elsewhere, Pcp PCP - General 06/07/19 documented as of this encounter
--- OUTSIDE RECORDS SUMMARY | 2022-02-07 14:30 | XMS_ITS | Encounter Summary ---
:1960 Author Organization [facility] Address [address] [place] [address] Care Team Providers Name Role Phone Elsewhere, Pcp Primary Care Provider Unavailable Reason for Visit Auth/Cert Specialty Diagnoses / Procedures Referred By Contact Refer red To Contact Diagnoses Encounter for screening for malignant neoplasm of colon colon cancer screening z12.11 Procedures SC COLONOSCOPY DIAGNOSTIC COLONOSCOPY Referral ID Status Reason Start Date Expiration Date Visits Requ ested Visits Authorized [id number] 1 1 Encounter Details Date Type Department Care Team Description 04/18/2021 Hospital Encounter [facility] OR Kavon Espino [address] [place] [address] BLANE Mcghee M.D. YUKI PINON [address] [phone] [place] [address] (Wo rk) Social History Tobacco [...] you attend jewish or Patient refused 2021 mu-ism services? Do [...] at Date Recorded Male 06/23/2021 7:46 PM MIME ARTIST documented as of this encounter Last Filed Vital Signs Vital Sign Reading Time Taken Comments Blood Pressure 112/77 04/18/2021 2:45 PM MIME ARTIST Pulse 64 04/18/2021 2:50 PM MIME ARTIST Temperature 36.2 ??C (97.2 ??F) 04/18/2021 2:45 PM MIME ARTIST Respiratory Rate 20 04/18/2021 2:50 PM MIME ARTIST Oxygen Saturation 98% 04/18/2021 2:50 PM MIME ARTIST Inhaled Oxygen Concentration - - Weight - [...] 3. The patient will undergo colonoscopy today. ARTIST documented in this encounter Procedure Notes Kavon Espino M.D. - 04/18/2021 1:36 PM CSTAssociated Order(s): COLONOSCOPY [facility] Patient Name: Hussein Whittaker Procedure Date: [...] was done by the physician, nurse and emissions testing technician using the patient's name, date and medical record number. Estimated blood loss was minimal. A 4 mm polyp was found in the transverse colon. The polyp was semi-pedunculated. The polyp was removed with a cold snare. Resection and retrieval were complete. Verification of patient identification for the specimen was done by the physician, nurse and emissions testing technician using the patient's name, date and medical record number. Estimated blood loss was minimal. A 3 mm polyp was found in the descending colon. The polyp was semi-pedunculated. The polyp was removed with a cold snare. Resection and retrieval were complete. Verification of patient identification for the specimen was done by the physician, nurse and emissions testing technician using the patient's name, date and [...] oxygen saturations were monitored continuously. The 01 [id number] was introduced under direct vision through the [...] 0 Note Initiated On: 04/18/2021 1:36 PM ARTIST documented in this encounter Plan of Treatment Not on filedocumented as of this encounter Procedures Procedure Name Priority Date/Time Associated Diagnosis Comme nts SURGICAL PATHOLOGY Routine 04/18/2021 1:56 PM Res ults for this MIME ARTIST procedure are i n the results section. COLONOSCOPY 04/18/2021 1:36 PM Results f or this MIME ARTIST procedure are i n the results section. COLONOSCOPY 04/18/2021 1:36 PM colon cancer MIME ARTIST screening z12.11 documented in this encounter Results Surgical Pathology (04/18/2021 1:56 PM MIME ARTIST) Component Value Ref Test Analysis Performed At [facility] gist Range Method Time Signature 04/20/2021 ECLR 1:27 PM MIME ARTIST Report Slade Mcgarry. 04/20/2021 ECLR electronically Adrian Mckinley 1:27 PM MIME ARTIST signed by Specimen Received A. Ascending colon 04/20/2021 EC LR B. Transverse colon polyp 1:27 PM MIME ARTIST C. Descending colon polyp Gross Description A: ??Received in a container labeled ascending co flip are 04/20/2021 ECLR multiple tissues, 0.4 cm to 0.8 cm. All submitted in 1:27 PM MIME ARTIST cassette A1. B: ??Received in a container labeled transverse colon are multiple tissues, 0.3 cm to 0.8 cm. All submitted in cassette B1 S. C: ??Received in a container labeled descending is a 0.5 cm in greatest dimension portion of tissue. All submitted in cassette C1. [id number] Interpretation FINAL DIAGNOSIS 04/20/2021 ECLR A. Colon, ascending, biopsy: ??Sessile serrated polyp. 1:27 PM MIME ARTIST B. ??Colon, transverse, biopsy: ??Normal colonic mucosa. C. ??Colon, descending, biopsy: Hyperplastic polyp. Specimen (Source) Anatomical Collection Method Collection Time Re ceived Time Location / / Volume Laterality Polyp (Colon) 04/18/2021 1:56 PM MIME ARTIST Polyp (Colon) 04/18/2021 1:59 PM MIME ARTIST Polyp (Colon) 04/18/2021 2:04 PM MIME ARTIST Narrative This result has an attachment that is no t available. Kavon Espino M.D. LAB SURG PATH ORDERABLES Performing Organization Address City/State/ZIP Code Phon e Number [facility]- [address] [place] [phone] [facility] [place] [address] [address] COLONOSCOPY (04/18/2021 1:36 PM MIME ARTIST) Specimen (Source) Anatomical Location Collection Method / Collectio n Time Received Time / Laterality Volume Narrative This result has an attachment that is no t available. Procedure Note Kavon Espino M.D. - 04/18/2021 1:36 PM CST [facility] Patient Name: Hussein Whittaker Procedure Date: [...] was done by the physician, nurse and emissions testing technician using the patient's name, date and medical record number. Estimated blood loss was minimal. A 4 mm polyp was found in the transvers e colon. The polyp was semi-pedunculated. The polyp was remove d with a cold snare. Resection and retrieval were complete. Verificati on of patient identification for the specimen was done by the physician, nurse and emissions testing technician using the patient's name, date and medical record number. Estimated blood loss was minimal. A 3 mm polyp was found in the descendin g colon. The polyp was semi-pedunculated. The polyp was remove d with a cold snare. Resection and retrieval were complete. Verificati on of patient identification for the specimen was done by the physician, nurse and emissions testing technician using the patient's name, date and [...] saturations were monitored continuously . The 01 [id number] was introduced under direct vision through the [...] lactated ringers New Bag 04/18/2021 1:22 PM MIME ARTIST 75 mL/hr 75 mL/hr 75 mL/hr, intravenous, [...] Recently Administered Medications Times are shown in MIME ARTIST. Scheduled Medication Order 04/16/2021 04/17/2021 04/18/2021 lidocaine [...] injection documented in this encounter Care Teams Sausage Tier Relationship Specialty Start Date End Date Elsewhere, Pcp PCP - General 06/07/19 documented as of this encounter
--- OUTSIDE RECORDS SUMMARY | 2022-02-07 14:30 | XMS_ITS | Encounter Summary ---
:1960 Author Organization [facility] Address [address] [place] [address] Care Team Providers Name Role Phone Elsewhere, Pcp Primary Care Provider Unavailable Reason for Visit Auth/Cert Specialty Diagnoses / Procedures Referred By Contact Refer red To Contact Diagnoses Encounter for screening for malignant neoplasm of colon colon cancer screening z12.11 Procedures [place] COLONOSCOPY DIAGNOSTIC COLONOSCOPY Referral ID Status Reason Start Date Expiration Date Visits Requ ested Visits Authorized [id number] 1 1 Encounter Details Date Type Department Care Team Description 04/18/2021 Surgery [facility] CACF KANG OR Kavon Espino, COLONOSCOPY [address] [place] [address] Adrian JULIAN MCLEAN [phone] [facility] [phone] [place], [place] [address] (Wo rk) Social History Tobacco Use Types [...] you attend religious or Patient refused 2021 yazidism services? Do [...] at Date Recorded Male 06/23/2021 7:46 PM MATERIAL COORDINATOR documented as of this encounter Last Filed Vital Signs Vital Sign Reading Time Taken Comments Blood Pressure 109/74 04/18/2021 2:30 PM MATERIAL COORDINATOR Pulse 67 04/18/2021 2:30 PM MATERIAL COORDINATOR Temperature 36.3 ??C (97.3 ??F) 04/18/2021 2:30 PM MATERIAL COORDINATOR Respiratory Rate 15 04/18/2021 2:30 PM MATERIAL COORDINATOR Oxygen Saturation 97% 04/18/2021 2:30 PM MATERIAL COORDINATOR Inhaled Oxygen Concentration - - Weight - [...] 3. The patient will undergo colonoscopy today. RIAL COORDINATOR documented in this encounter Procedure Notes Kavon Espino M.D. - 04/18/2021 1:36 PM CSTAssociated Order(s): COLONOSCOPY [facility] Patient Name: Hussein Whittaker Procedure Date: [...] was done by the physician, nurse and is technician using the patient's name, date and medical record number. Estimated blood loss was minimal. A 4 mm polyp was found in the transverse colon. The polyp was semi-pedunculated. The polyp was removed with a cold snare. Resection and retrieval were complete. Verification of patient identification for the specimen was done by the physician, nurse and is technician using the patient's name, date and medical record number. Estimated blood loss was minimal. A 3 mm polyp was found in the descending colon. The polyp was semi-pedunculated. The polyp was removed with a cold snare. Resection and retrieval were complete. Verification of patient identification for the specimen was done by the physician, nurse and is technician using the patient's name, date and [...] oxygen saturations were monitored continuously. The 01 [id number] was introduced under direct vision through the [...] 0 Note Initiated On: 04/18/2021 1:36 PM RIAL COORDINATOR documented in this encounter Plan of Treatment Not on filedocumented as of this encounter Procedures Procedure Name Priority Date/Time Associated Diagnosis Comme nts SURGICAL PATHOLOGY Routine 04/18/2021 1:56 PM Res ults for this MATERIAL COORDINATOR procedure are i n the results section. COLONOSCOPY 04/18/2021 1:36 PM Results f or this MATERIAL COORDINATOR procedure are i n the results section. COLONOSCOPY 04/18/2021 1:36 PM colon cancer MATERIAL COORDINATOR screening z12.11 documented in this encounter Results Surgical Pathology (04/18/2021 1:56 PM MATERIAL COORDINATOR) Component Value Ref Test Analysis Performed At [facility] gist Range Method Time Signature 04/20/2021 ECLR 1:27 PM MATERIAL COORDINATOR Report Slade Mcgarry. 04/20/2021 ECLR electronically Adrian Mckinley 1:27 PM MATERIAL COORDINATOR signed by Specimen Received A. Ascending colon 04/20/2021 EC LR B. Transverse colon polyp 1:27 PM MATERIAL COORDINATOR C. Descending colon polyp Gross Description A: ??Received in a container labeled ascending co flip are 04/20/2021 ECLR multiple tissues, 0.4 cm to 0.8 cm. All submitted in 1:27 PM MATERIAL COORDINATOR cassette A1. B: ??Received in a container labeled transverse colon are multiple tissues, 0.3 cm to 0.8 cm. All submitted in cassette B1 S. C: ??Received in a container labeled descending is a 0.5 cm in greatest dimension portion of tissue. All submitted in cassette C1. [id number] Interpretation FINAL DIAGNOSIS 04/20/2021 ECLR A. Colon, ascending, biopsy: ??Sessile serrated polyp. 1:27 PM MATERIAL COORDINATOR B. ??Colon, transverse, biopsy: ??Normal colonic mucosa. C. ??Colon, descending, biopsy: Hyperplastic polyp. Specimen (Source) Anatomical Collection Method Collection Time Re ceived Time Location / / Volume Laterality Polyp (Colon) 04/18/2021 1:56 PM MATERIAL COORDINATOR Polyp (Colon) 04/18/2021 1:59 PM MATERIAL COORDINATOR Polyp (Colon) 04/18/2021 2:04 PM MATERIAL COORDINATOR Narrative This result has an attachment that is no t available. Kavon Espino M.D. LAB SURG PATH ORDERABLES Performing Organization Address City/State/ZIP Code Phon e Number [facility]- [address] [place] [address] [phone] [facility] [place] [address] COLONOSCOPY (04/18/2021 1:36 PM MATERIAL COORDINATOR) Specimen (Source) Anatomical Location Collection Method / Collectio n Time Received Time / Laterality Volume Narrative This result has an attachment that is no t available. Procedure Note Kavon Espino M.D. - 04/18/2021 1:36 PM CST [facility] Patient Name: Hussein Whittaker Procedure Date: [...] was done by the physician, nurse and is technician using the patient's name, date and medical record number. Estimated blood loss was minimal. A 4 mm polyp was found in the transvers e colon. The polyp was semi-pedunculated. The polyp was remove d with a cold snare. Resection and retrieval were complete. Verificati on of patient identification for the specimen was done by the physician, nurse and is technician using the patient's name, date and medical record number. Estimated blood loss was minimal. A 3 mm polyp was found in the descendin g colon. The polyp was semi-pedunculated. The polyp was remove d with a cold snare. Resection and retrieval were complete. Verificati on of patient identification for the specimen was done by the physician, nurse and is technician using the patient's name, date and [...] saturations were monitored continuously . The 01 [id number] was introduced under direct vision through the [...] lactated ringers New Bag 04/18/2021 1:22 PM MATERIAL COORDINATOR 75 mL/hr 75 mL/hr 75 mL/hr, intravenous, [...] Pre-Op, Peripheral Intravenous Catheter and Rapid Infu isadroa Catheter, when no infusion to maintain patency documented in this encounter Active and Recently Administered Medications Times are shown in MATERIAL COORDINATOR. Scheduled Medication Order 04/16/2021 04/17/2021 04/18/2021 lidocaine [...] injection documented in this encounter Care Teams Vacuum Repairer Relationship Specialty Start Date End Date Elsewhere, Pcp PCP - General 06/07/19 documented as of this encounter
--- OUTSIDE RECORDS SUMMARY | 2022-02-07 14:30 | XMS_ITS | Encounter Summary ---
:1960 Author Organization [facility] Address [address] [place] [address] Care Team Providers Name Role Phone Elsewhere, Pcp Primary Care Provider Unavailable Reason for Visit Reason Comments Pre-op Exam 04/18 [facility] (Routine) - Closed Specialty Diagnoses / Procedures Referred By Contact Refer red To Contact Family Medicine Diagnoses Screening Cancer Colon Delvin Booker M.D. [facility] Region [address] [place] [address] Referral ID Status Reason Start Date Expiration Date Visits Requ ested Visits Authorized [id number] Closed 03/30/2021 03/30/2022 1 1 Encounter Details Date Type Department Care Team Description 04/13/2021 Office Visit Department of Chica Diaz Hyper tension Essential Primary (Primary Dx); Medicine, Yuki Bui APRN, C.N.P., Preoper ative Exam; [facility], in D.N.P. Screening Cancer Colon; [place] [address] Diverticulo sis Of Large Intestine Without Perforation Or Abscess Without Bleeding; [facility] Morbid Severe Obesity Due To Excess Mary myra ([facility]) [address] [place], [place] [address], [place] [phone] Social History Tobacco Use Types Packs/Day [...] you attend yarsanism or Patient refused 2021 catholic services? Do you belong to any clubs or No 12/20/2021 organizations such as yarsanism groups, unions, fraGeaCom or athletic groups, or school groups? How [...] at Date Recorded Male 06/23/2021 7:46 PM HAT FORMING MACHINE OPERATOR documented as of this encounter Last Filed Vital Signs Vital Sign Reading Time Taken Comments Blood Pressure 120/78 04/13/2021 9:45 AM HAT FORMING MACHINE OPERATOR Pulse 86 04/13/2021 9:45 AM HAT FORMING MACHINE OPERATOR Temperature 36.2 ??C (97.2 ??F) 04/13/2021 9:45 AM HAT FORMING MACHINE OPERATOR Respiratory Rate - - Oxygen Saturation 96% 04/13/2021 9:45 AM HAT FORMING MACHINE OPERATOR Inhaled Oxygen Concentration - - Weight 120 kg (264 lb 1.8 oz) 04/13/2021 9:45 AM HAT FORMING MACHINE OPERATOR Height 181 cm (5' 11.26) 04/13/2021 9:45 AM HAT FORMING MACHINE OPERATOR Body Mass Index 36.57 04/13/2021 9:45 AM HAT FORMING MACHINE OPERATOR documented in this encounter H&P Notes Chica Rodriguez APRN, C.N.P., D.N.P. - 04/13/2021 10:00 AM CST SUBJECTIVE Hussein Whittaker [phone] DATE OF SURGERY: 04/18/2021 DATE OF EXAM: [...] 20 minutes Chica Rodriguez APRN, C.N.P., D.N.P. FORMING MACHINE OPERATOR documented in this encounter Plan of Treatment Not on filedocumented as of this encounter Procedures Procedure Name Priority Date/Time Associated Diagnosis Comme nts SODIUM, S/P Routine 04/13/2021 10:00 Hypertension Results for this AM HAT FORMING MACHINE OPERATOR Essential Primar y procedure are in Preoperative Exam the result s section. POTASSIUM, S/P Routine 04/13/2021 10:00 Hypertension Results f or this AM HAT FORMING MACHINE OPERATOR Essential Primar y procedure are in Preoperative Exam the result s section. CREATININE WITH Routine 04/13/2021 10:00 Hypertension Results for this EGFR, S/P AM HAT FORMING MACHINE OPERATOR Essential Primar y procedure are in Preoperative Exam the result s section. documented in this encounter Results Sodium (04/13/2021 10:00 AM HAT FORMING MACHINE OPERATOR) athologist Signature Sodium, P 138 135 - 145 04/13/2021 CNFL mmol/L 10:38 AM HAT FORMING MACHINE OPERATOR Specimen Anatomical Collection Method Collection Time Receive d Time (Source) Location / / Volume Laterality Blood (Blood, 04/13/2021 10:00 04/13/2021 Venous) AM HAT FORMING MACHINE OPERATOR 10:04 AM HAT FORMING MACHINE OPERATOR Rosaura Escobar APRN.N.P., D.N.P. LAB BLOOD ADD-ON Performing Organization Address [facility] Phon e Number [address] [address] [place] [address] System [address] Potassium (04/13/2021 10:00 AM HAT FORMING MACHINE OPERATOR) athologist Signature Potassium, P 4.4 3.6 - 5.2 04/13/2021 CNFL mmol/L 10:38 AM HAT FORMING MACHINE OPERATOR Specimen Anatomical Collection Method Collection Time Receive d Time (Source) Location / / Volume Laterality Blood (Blood, 04/13/2021 10:00 04/13/2021 Venous) AM HAT FORMING MACHINE OPERATOR 10:04 AM HAT FORMING MACHINE OPERATOR Chica Rodriguez APRN, Rosaura.N.P., D.N.P. LAB BLOOD ADD-ON Performing Organization Address [facility] Phon e Number [address] [address] [place] [address] System [address] Creatinine with Estimated GFR (04/13/2021 10:00 AM HAT FORMING MACHINE OPERATOR) P athologist Signature Creatinine 1.11 0.74 - 04/13/2021 CNFL 1.35 mg/dL 10:38 AM HAT FORMING MACHINE OPERATOR eGFR-Black/Afric 82 >=60 04/13/2021 CNFL an Australian mL/min/BSA 10:38 AM HAT FORMING MACHINE OPERATOR Comment: ----ADDITIONAL INFORMATION---- Estimated GFR calculated using the 2009 CKD_EPI creatinine equation. eGFR Non-Black/ 71 >=60 mL/min/BSA 04/13/2021 10:38 AM HAT FORMING MACHINE OPERATOR CNFL Comment: ----ADDITIONAL INFORMATION---- Estimated GFR calculated using the 2009 CKD_EPI creatinine equation. Specimen Anatomical Collection Method Collection Time Receive d Time (Source) Location / / Volume Laterality Blood (Blood, 04/13/2021 10:00 04/13/2021 Venous) AM HAT FORMING MACHINE OPERATOR 10:04 AM HAT FORMING MACHINE OPERATOR Chica Rodriguez APRN, C.N.P., D.N.P. LAB BLOOD ADD-ON Performing Organization Address City/State/ZIP Code Phon e Number [facility]- [address] [place] [address] [place] [address] System [address] documented in this encounter Visit Diagnoses Diagnosis Hypertension Essential Primary - Primary Preoperative Exam Screening Cancer Colon Diverticulosis Of Large Intestine Withou t Perforation Or Abscess Without Bleeding Morbid Severe Obesity Due To Excess Mary myra (HCC) documented in this encounter Care Teams Seo Engineer Relationship Specialty Start Date End Date Elsewhere, Pcp PCP - General 06/07/19 documented as of this encounter
--- OUTSIDE RECORDS SUMMARY | 2022-02-07 14:30 | XMS_ITS | Encounter Summary ---
:1960 Author Organization [facility] Address [address] [place] [address] Care Team Providers Name Role Phone Elsewhere, Pcp Primary Care Provider Unavailable Encounter Details Date Type Department Care Team Description 04/15/2021 Lab Department of [facility] Delvin Booker Sc reening Cancer [facility] [address] [facility] [address] [place] [phone] (Wo rk) Social History Tobacco Use Types [...] you attend jew or Patient refused 2021 rastafari services? Do [...] at Date Recorded Male 06/23/2021 7:46 PM INTELLIGENCE MANAGER documented as of this encounter Plan of Treatment Not on filedocumented as of this encounter Procedures Procedure Name Priority Date/Time Associated Diagnosis Comme nts SARS CORONAVIRUS-2 Routine 04/15/2021 10:24 AM Screening Cance r Results for this RNA, V INTELLIGENCE MANAGER Colon procedure are i n the results section. documented in this encounter Results SARS Coronavirus-2 RNA, V Asymptomatic (04/15/2021 10:24 AM INTELLIGENCE MANAGER) [employer] Method Time Signature SARS-CoV-2 Swab, 04/15/2021 ECLR Specimen Nasopharynx 8:55 PM INTELLIGENCE MANAGER Source SARS CoV-2 Undetected Undetected 04/15/2021 ECLR RNA, TMA 8:55 PM INTELLIGENCE MANAGER Comment: SARS-CoV-2 RNA absent. This result does not rule out COVID-19 in the patient, as the sensitivity of the test depends o n the timing of the specimen collection and the quality of the specim en. Result should be correlated with patient's history and clinical presentat ion. ----ADDITIONAL INFORMATION---- This molecular amplification test was pe rformed using the Aptima SARS-CoV-2 assay ([employer] on the [employer] tem under emergency use authorization (EUA) by the U.S. Food and Drug Administ ration. Fact sheets for this EUA assay can be fo und at the following links: For Healthcare Providers: https://www.fd a.gov/media/087456/download For Patients: https://www.fda.gov/media/ 356191/download Specimen Anatomical Collection Method Collection Time Receive d Time (Source) Location / / Volume Laterality Varies 04/15/2021 10:24 04/15/2021 3:00 (Nasopharynx) AM INTELLIGENCE MANAGER PM INTELLIGENCE MANAGER Delvin Booker M.D. LAB MICROBIOLOGY - GENERAL O RDERABLES Performing Organization Address City/State/ZIP Code Phon e Number [facility]- [address] [place], [place] [address] [facility] [place] [address] System in [place] [address] [place] [address] documented in this encounter Visit Diagnoses Diagnosis Screening Cancer Colon documented in this encounter Additional Health Concerns Infection Onset Date Last Indicated Resolved Time COVID19 Pending 04/15/2021 04/15/2021 04/15/2021 8:55 PM INTELLIGENCE MANAGER documented as of this encounter Care Teams Principal Biostatistician Relationship Specialty Start Date End Date Elsewhere, Pcp PCP - General 06/07/19 documented as of this encounter
--- OUTSIDE RECORDS SUMMARY | 2022-02-07 14:30 | XMS_ITS | Encounter Summary ---
:1960 Author Organization [facility] Address [address] [place] [address] Care Team Providers Name Role Phone Elsewhere, Pcp Primary Care Provider Unavailable Reason for Visit Auth/Cert Specialty Diagnoses / Procedures Referred By Contact Refer red To Contact Diagnoses Primary Osteoarthritis Knee Left Primary Osteoarthritis Knee Left [M17.12] Procedures TX ARTHRO KNEE CONDYLE&PLAT (TKA) BARBER ROBOTIC-ASSISTED KNEE TOTAL ARTHROPLASTY - LEFT Referral ID Status Reason Start Date Expiration Date Visits Requ ested Visits Authorized [id number] 1 1 Encounter Details Date Type Department Care Team Description 08/06/2021 Anesthesia Event [facility] MA[facility] OR Miriam Ge M.D. [address] [facility] 701 [facility] [place] [phone] [place] [phone] (Wo rk) Anesthesia Record Procedure Summary Procedure [...] h andoff to the receiving staff during [facility] ch we 1. Identified the patient 2. [...] or relatives? How often do you attend restoration or Patient refused 2021 rastafari services? 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 - 08/06/2021 2:06 PM CDT Patient: Hussein Whittaker Procedure Summary Date: 08/06/21 Room / Location: [address] [facility] / [facility] - GI Anesthesia Start: 811 Anesthesia Stop: [...] diagnosis: Primary Osteoarthritis Knee Left [M17.12] Location: [place] [address] / [facility] [address] [facility] - GI Surgeons: Dk Mijares M.D. Pertinent [...] with patient /legal guardian or through an manager of employee relations. Risks/Benefits/Alternatives of Blood transfusion discussed with patient [...] procedure ar e in the results section. TX US GUIDE PLC NDL Routine 08/06/2021 8:09 AM Re sults for this CDT procedure are i n the results section. TX INJ ANES FEM Routine 08/06/2021 8:09 AM [...] Miriam Ge M.D. PROCEDURE/MINOR SURGICAL ORD ERABLES TX INJ ANES FEM NERVE, TX US GUIDE JAM NDL, ALINA ANE NERVE BLOCK WITH ULTRASOUND (08/06/2021 8:09 [...] Other complications: none ATTESTATION STATEMENT Keaton Valdez SURGICAL TECHNOLOGY INSTRUCTOR, C JAVA DEVELOPER PROCEDURE/MINOR SURGICAL ORDERABLES documented in this encounter Visit Diagnoses Not on filedocumented in this encounter Administered Medications Inactive Administered Medications - up to 3 most recent administrations Medication Order MAR Action Action Date Dose Rate Site wglrdysiavl-zamtcbrl-kuiqm (PF) Given 08/06/2021 8:18 AM CDT 1.7 [...] tourniquet documented in this encounter Care Teams Rn Progressive Care Unit Relationship Specialty Start Date End Date Elsewhere, Pcp PCP - General 06/07/19 documented as of this encounter
--- OUTSIDE RECORDS SUMMARY | 2022-02-07 14:30 | XMS_ITS | Encounter Summary ---
:1960 Author Organization [facility] Address [address] [place] [address] Care Team Providers Name Role Phone Elsewhere, Pcp Primary Care Provider Unavailable Reason for Visit Auth/Cert Specialty Diagnoses / Procedures Referred By Contact Refer red To Contact Diagnoses Encounter for screening for malignant neoplasm of colon colon cancer screening z12.11 Procedures [place] COLONOSCOPY DIAGNOSTIC COLONOSCOPY Referral ID Status Reason Start Date Expiration Date Visits Requ ested Visits Authorized [id number] 1 1 Encounter Details Date Type Department Care Team Description 04/18/2021 Anesthesia Event [facility] OR Aleksey Huffman, OBSTETRICS TECH, KEY RINGER [address] [place] [address] [place] [address] Miriam Ge M.D. [address] [place] [address] JULIAN MCLEAN [phone] Anesthesia Record Procedure Summary Procedure Name Responsible Anesthesiologist Anesthesia Start Ti me Anesthesia Stop Time COLONOSCOPY Aleksey Huffman, OBSTETRICS TECH, 04/18/21 1338 1 1409 KEY RINGER Events Date Time Event Comment 04/18/2021 1305 1338 An Start Machine/Equipmen t Checked Infection Precautions Foll owed Procedure/Site Verified NPO Sta tus Verified Supine Standard ASA Mon itors Applied 1342 Turnover to Proceduralist 1345 Proc Start 1407 Proc Fin 1409 Turnover to ANE Staff 1409 an stop data 1409 An End I completed my h andoff to the receiving staff during [facility] ch we 1. Identified the patient [...] 04/18/21 1502 by Placement Time: 1321; Tara Velazquez Tri cia RShahzad Catheter Size: 20 G; [...] you attend christianity or Patient refused 2021 baptist services? Do [...] Date Recorded Male 06/23/2021 7:46 PM MANAGER BEVERAGE documented as of this encounter OR Notes Anesthesia Postprocedure Evaluation - Aleksey Huffman APRN, CRNA - 04/18/2021 2:12 PM CST Patient: Hussein Whittaker Procedure Summary Date: 04/18/21 Room / Location: [facility] [place] Anesthesia Start: 1338 Anesthesia Stop: [...] Post Op nausea/vomiting: none Hydration status: euvolemic GER BEVERAGE Anesthesia Preprocedure Evaluation - Aleksey Huffman APRN, CRNA - 04/18/2021 1:05 PM CST Preprocedure Anesthesia & H&P Assessment Procedure Summary Date/Time: 04/18/21 1100 Procedure: COLONOSCOPY (N/A ) Pre-op diagnosis: colon cancer screening z12.11 Location: [facility] [place] Surgeons: Kavon Espino M.D. Pertinent [...] with patient /legal guardian or through an agricultural scientist. The use of blood products not discussed Approval to Proceed: approved for anesthesia GER BEVERAGE documented in this encounter Plan of Treatment Not on filedocumented as of this encounter Visit Diagnoses Not on filedocumented in this encounter Administered Medications Inactive Administered Medications - up to 3 most recent administrations Medication Order MAR Action Action Date Dose Rate Site fentaNYL injection (SUBLIMAZE) Given 04/18/2021 1:38 PM MANAGER BEVERAGE 100 mcg intravenous, As needed, Starting on Fri04/18/21 at 1338, Anesthesia Intra-op midazolam (PF) injection (VERSED) Given 04/18/2021 1:38 PM MANAGER BEVERAGE 2 mg intravenous, As needed, Starting on Fri04/18/21 at 1338, Anesthesia Intra-op ondansetron (PF) injection (ZOFRAN) Given 04/18/2021 1:38 PM MANAGER BEVERAGE 4 mg intravenous, As needed, Starting on Fri04/18/21 at 1338, Anesthesia Intra-op propofol 10 mg/mL infusion Rate/Dose 04/18/2021 1:51 75 mcg/kg/min 5 3.91 (DIPRIVAN) Change PM MANAGER BEVERAGE mL/hr intravenous, Continuous Infusion: Per Instructions PRN, Starting on Fri04/18/21 at 1344, Anesthesia Intra-op New Bag 04/18/2021 1:44 PM MANAGER BEVERAGE 125 mcg/kg/min 89.85 mL/hr propofoL injection (DIPRIVAN) Given 04/18/2021 1:44 PM MANAGER BEVERAGE 30 mg intravenous, As needed, Starting on Fri04/18/21 at 1341, Anesthesia Intra-op Given 04/18/2021 1:41 PM MANAGER BEVERAGE 50 mg documented in this encounter Care Teams Automation Architect Relationship Specialty Start Date End Date Elsewhere, Pcp PCP - General 06/07/19 documented as of this encounter
--- OUTSIDE RECORDS SUMMARY | 2022-02-07 14:30 | XMS_ITS | Encounter Summary ---
:1960 Author Organization [facility] Address [address] [place] [address] Care Team Providers Name Role Phone Elsewhere, Pcp Primary Care Provider Unavailable Reason for Referral Outpatient (Routine) - Closed Specialty Diagnoses / Procedures Referred By Contact Refer red To Contact Diagnoses Primary Osteoarthritis Knee Left Laurie Dumont APRN, [facility] [place] [facility] Procedures ECG 12 Lead C.N.P., D.N.P. [address] [place] [address] Referral ID Status Reason Start Date Expiration Date Visits Requ ested Visits Authorized [id number] Closed 06/28/2021 06/28/2022 1 1 ATORY ATTENDANT Reason for Visit Outpatient (Routine) - Closed Specialty Diagnoses / Procedures Referred By Contact Refer red To Contact Diagnoses Primary Osteoarthritis Knee Left Laurie Dumont APRN, [facility] [place] [facility] Procedures ECG 12 Lead C.N.P., D.N.P. [address] [place] [address] Referral ID Status Reason Start Date Expiration Date Visits Requ ested Visits Authorized [id number] Closed 06/28/2021 06/28/2022 1 1 Encounter Details Date Type Department Care Team Description 07/02/2021 Hospital Encounter Department of Laurie Dumont Osteoarthritis Radiology in Arun Marsh APRN, Knee Lef t [place], [place] C.N.P., D.N.P. [address] [phone] Social History Tobacco Use [...] you attend zoroastrian or Patient refused 2021 uatsdin services? Do [...] at Date Recorded Male 06/23/2021 7:46 PM CREMATORY ATTENDANT documented as of this encounter Medications at [...] 8:36 AM Primary Osteoarthritis Results for this CREMATORY ATTENDANT Knee Left procedure are i n the results section. documented in this encounter Results ECG 12 Lead (07/02/2021 8:36 AM CREMATORY ATTENDANT) P athologist Signature Ventricular Rate 70 BPM MUSE ECG/Min CO Interval 180 ms MUSE QRSD Interval 98 ms MUSE QT Interval 380 ms MUSE QTC Interval 410 ms MUSE P Linden 32 degrees MUSE R Linden 14 degrees MUSE T Wave Linden 20 degrees MUSE Specimen Anatomical Collection Method Collection Time Receive d Time (Source) Location / / Volume Laterality 07/02/2021 8:36 AM 8:39 CREMATORY ATTENDANT AM CREMATORY ATTENDANT Impressions MUSE - 07/02/2021 8:39 AM CREMATORY ATTENDANT Normal sinus rhythm Normal ECG No previous [...] Left documented in this encounter Care Teams Reel Blade Bender Furnace Tender Relationship Specialty Start Date End Date Elsewhere, Pcp PCP - General 06/07/19 documented as of this encounter
--- OUTSIDE RECORDS SUMMARY | 2022-02-07 14:30 | XMS_ITS | Encounter Summary ---
:1960 Author Organization [facility] Address [address] [place] [address] Care Team Providers Name Role Phone Elsewhere, Pcp Primary Care Provider Unavailable Encounter Details Date Type Department Care Team Description 07/24/2021 Education Department of Dk Mijares M.D. [address] [place] [address] Primary Osteoarthritis Orthopedic Surgery in Sunni Cason R.N. Knee Left [place], [place] [address] [place] [address] Social History Tobacco Use Types [...] you attend adventist or Patient refused 2021 holiness services? 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 - 07/24/2021 10:00 AM CST Patient is scheduled for a Left Total Knee Arthroplasty on 08/06/[address] Mijares. Patient attended the Total Joint Class and all material gone over and questions addressed after viewing the [facility] Total Joint video. Therapy portion was discussed. [...] surgical packet: - Total Knee Replacement Surgery [id number] - Home Safety Tips [id number] - Bathroom Safety Equipment [id number] - Rehabilitation after Knee Replacement [id number] - Prior to Surgery Medication List [id number] - Important Information About Opioid Medication [id number] - Speak Up: Antibiotics [id number] - Acute Pain and the Healing Process [id number] - Total Joint Arthroplasty Discharge Planning [id number] - Intentional Rounding [id number] - Reducing Your Risk of Surgical Infection [id number] with Hibiclens Soap (2 Packets) - Surgical Site Infection: Reducing you Risk [id number] - Billing Question Card [id number] - [facility] Financial Clearance Business Card - Transportation Sheet Patient was given and discussed the following education & pamphlets. Patient voiced understanding and stated they will call with any other questions or concerns: - Authorization to Disclose Protected Health Information to Family and Friends [id number] - SEMN Checklist for Surgical Paitients [id number] - Discharge Planning [id number] OR NURSE MANAGER documented in this encounter Plan of Treatment Not on filedocumented as of this encounter Visit Diagnoses Diagnosis Primary Osteoarthritis Knee Left documented in this encounter Care Teams Publicity Consultant Relationship Specialty Start Date End Date Elsewhere, Pcp PCP - General 06/07/19 documented as of this encounter
--- OUTSIDE RECORDS SUMMARY | 2022-02-07 14:30 | XMS_ITS | Encounter Summary ---
:[address] [facility] Address [address] [place] [address] Care Team Providers Name Role Phone Elsewhere, Pcp Primary Care Provider Unavailable Reason for Visit Reason Comments 2 Insurance Forms (Indemnity & The Standard Encounter Details Date Type Department Care Team Description 07/05/2021 Clinical Communication Department of Dk Mijares 2 Insurance Forms Orthopedic Surgery Adrian Bui (Indemnity & The in [facility] [address] [place], [place] [address] [employer] [address] [place], [place] [phone] [address] (Work) [phone] Social History Tobacco Use Types Packs/Day Years [...] you attend jain or Patient refused 2021 alevism services? Do [...] at Date Recorded Male 06/23/2021 7:46 PM LANDMAN documented as of this encounter Miscellaneous Notes Telephone Encounter - Dian Correa - 07/09/2021 9:35 AM LANDMAN GODWIN received for [employer]. Faxed to [phone]. Copy to chart. MAN Telephone Encounter - Lucy Forde - 07/05/2021 9:46 AM CST 2 forms submitted for Maryana harris. TPA for [employer] of [facility]. Fax- [phone] Work Related for Left knee. Sent Dr. Mijares last note of 06/28/21 and workability. [employer] sent a form and requested office notes from Maryana 06/28/[address] report of left knee . Work Comp. [phone] MAN documented in this encounter Plan of Treatment Not on filedocumented as of this encounter Visit Diagnoses Not on filedocumented in this encounter Care Teams Anesthesiologist Physician Relationship Specialty Start Date End Date Elsewhere, Pcp PCP - General 06/07/19 documented as of this encounter
--- OUTSIDE RECORDS SUMMARY | 2022-02-07 14:30 | XMS_ITS | Encounter Summary ---
:1960 Author Organization [facility] Address [address] [place] [address] Care Team Providers Name Role Phone Elsewhere, Pcp Primary Care Provider Unavailable Reason for Visit Reason Comments CF/RW colonoscopy outside referral Encounter Details Date Type Department Care Team Description 03/16/2021 Clinical Communication [facility] MAIN OR Elsewhere, CF/RW colonoscopy [address] Pcp (outside referral) [place] [address] Social History Tobacco Use Types Packs/Day [...] you attend adventist or Patient refused 2021 scientologist services? 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 - 03/27/2021 10:16 AM CST Late entry: the [facility] endoscopy call center team LMTCB on 03/26/21 UNTS SUPERVISOR Telephone Encounter - Maddie Trivedi R.N. - 03/16/2021 3:17 PM CDT [facility]: Dr. Milton Vásquez Diagnosis:colon cancer [...] on filedocumented in this encounter Care Teams E Commerce Merchant Relationship Specialty Start Date End Date Elsewhere, Pcp PCP - General 06/07/19 documented as of this encounter
--- OUTSIDE RECORDS SUMMARY | 2022-02-07 14:31 | XMS_ITS | Encounter Summary ---
:1960 Author Organization [facility] Address [address] [place] [address] Care Team Providers Name Role Phone Soren Shea APRN, C.N.P. Primary Care Provider Encounter Details Date Type Department Care Team Description 04/03/2017 Abstract Department of Family Medicine, Provider, Historical [facility], in [place], [place] [address] [place] [address] [facility] [phone] Social History Tobacco Use Types Packs/Day Years [...] you attend alevism or Patient refused 2021 congregation services? 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 PCP - General 10/31/16 09/14/17 documented as of this encounter
--- OUTSIDE RECORDS SUMMARY | 2022-02-07 14:31 | XMS_ITS | Encounter Summary ---
:1960 Author Organization [facility] Address [address] [place] [address] Care Team Providers Name Role Phone Unavailable Primary Care Provider Unavailable Encounter Details Date Type Department Care Team Description 02/07/[address] [facility] Iva Stubbs III, M.D. [address] [place] [address] (Wo rk) Social [...] you attend spiritism or Patient refused 2021 worship services? Do [...] at Date Recorded Male 06/23/2021 7:46 PM SIEVE GRADER TENDER documented as of this encounter Medications at Time of Discharge Medication Sig Dispensed Refills Start Date End Date ASPIRIN ORAL Take 1 tablet by mouth daily. 0 01/1804/13/2021 documented as of this encounter Plan of Treatment Not on filedocumented as of this encounter Visit Diagnoses Not on filedocumented in this encounter
--- OUTSIDE RECORDS SUMMARY | 2022-02-07 14:31 | XMS_ITS | Encounter Summary ---
:1960 Author Organization [facility] Address [address] [place] [address] Care Team Providers Name Role Phone Beth Valderrama P.A.-C. Primary Care Provider Encounter Details Date Type Department Care Team Description 02/25/2018 Clinical Communication Department of Maximo Joseph [facility], Kaushik Acosta [facility] [place], [id number] [place] [address] [phone] [address] (Work) [phone] Social History Tobacco Use Types Packs/Day Years [...] or relatives? How often do you attend latter-day or Patient refused 2021 presybeterian services? 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 PCP - General Family Medicine 09/15/17 06/06/19 documented as of this encounter
--- OUTSIDE RECORDS SUMMARY | 2022-02-07 14:31 | XMS_ITS | Encounter Summary ---
:1960 Author Organization [facility] Address [address] [place] [address] Care Team Providers Name Role Phone Unavailable Primary Care Provider Unavailable Encounter Details Date Type Department Care Team Description 02/07/2015 Hospital Encounter HX [facility] Nhan Polk M.D. [address] [place] [address] (Wo rk) Social [...] you attend taoist or Patient refused 2021 restorationist services? Do [...] at Date Recorded Male 06/23/2021 7:46 PM LARD MAKER documented as of this encounter Last Filed [...] CHIEF COMPLAINT/REASON FOR VISIT DOT recertification for [place] equipment HISTORY OF PRESENT ILLNESS Patient present to the clinic today for a Department of Transportation medical exam. No active concerns. Health history reviewed in detail with patient and was negative. Please refer to the Medical Examination Report for Nursing Aide Fitness Determination for complete details regarding this [...] OSULLIVAN MD On: 02/07/2015 03:48 PM Source: [facility] itravel Document Id: [id number] documented in this encounter Procedure Notes Breann [...] BREANN RIVERA - 02/07/2015 15:16 CDT Source: [facility] itravel Document Id: [id number] documented in this encounter Miscellaneous Notes [...] but it is advised. From: ANNETTE ESPINAL ([place] Family Medicine Pit Shoveler) To: [place] Family Medicine Nurse Coy; Sent: 09/19/2016 17:31:08 [...] he needs these done. His number is [phone]. Advice/Action: Source used: ( ) Verbalizes understanding [...] back cell phone number ( ) Source: [facility] POWERCHART Document Id: [id number] MAKER Miscellaneous - Breann Rivera, L.P.N. - 02/07/2015 3:10 PM CDT Adult Uniform Patrol Police Officer Intake/History Adult Uniform Patrol Police Officer Intake/History Entered On: 02/07/2015 15:15 CDT Performed [...] Mass Index : 32.19 kg/m2 BREANN RIVERA 02/07/2015 15:10 CDT General Info Information Given By : Patient Languages : Swedish Is Patient Female and 13-50 no hysterectomy [...] None BREANN RIVERA 02/07/2015 15:10 CDT Source: [facility] [employer] ExplorationCHART Document Id: [id number]!38 documented in this encounter Plan of Treatment Not on filedocumented as of this encounter Procedures Procedure Name Priority Date/Time Associated Diagnosis Comme nts DIPSTICK, U Routine 02/07/2015 3:07 PM Results f or this CDT procedure are i n the results section . documented in this encounter Results (ABNORMAL) Dipstick, Urine (02/07/2015 3:07 PM CDT) [facility] Method Time Signature HXUr Color Yellow Colorless POWERCHART Clarity Clear Clear POWERCHART Glucose Negative Negative POWERCHART MGDL HXBILIRUBIN Negative Negative POWERCHART Ketones, QL(U) Negative Negative POWERCHART MGDL Specific 1.020 POWERCHART Larsen, POCT, U pH, POCT, Urine 7.0 <5.0 [...]
--- OUTSIDE RECORDS SUMMARY | 2022-02-07 14:31 | XMS_ITS | Encounter Summary ---
:[address] [facility] Address [address] [place] [address] Care Team Providers Name Role Phone Elsewhere, Pcp Primary Care Provider Unavailable Reason for Visit Reason Comments Meter Tester Polyphase's License Exam Mirza Equipment Encounter Details Date Type Department Care Team Description 01/23/2021 Office Visit Department of Sandra Sanches, Department Of Occupational Medicine [facility] in [address] Examination Department [address] [place] [address] [place] [address] (Primary Dx) [address] Social History Tobacco Use [...] you attend faith or Patient refused 2021 religion services? 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 - 01/23/2021 3:45 PM CDT Meter Tester Polyphase Medical Examination SUBJECTIVE Hussein Whittaker is a 60 y.o. 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 The patient reports [...] is outlined in nursing note and reveals semi driver does not require visual correction to meet [facility] standards. Color vision is normal. [...] periodic monitoring required due to Elevated BP. 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 Restrictions and [...] (ABNORMAL) Urinalysis, Dipstick (01/23/2021 3:06 PM CDT) P athologist Signature Source VOID 01/23/2021 3:06 RWOM [...] 8.0 01/23/2021 3:06 PM CDT RWOM Specific [place] >=1.030 1.001 - 1.035 01/23/2021 3:06 PM CDT RWOM Urobilinogen 0.2 0.2 - 1.0 mg/dL 01/23/2021 3:06 PM CD T RWOM Specimen Anatomical Collection Method Collection Time Receive d Time (Source) Location / / Volume Laterality Urine 01/23/2021 3:06 PM 3:13 CDT PM CDT Generic [facility] URINE ORDERABLES Performing Organization Address City/State/ZIP Code Phon e Number [facility] [address] [place] [address] [place] [address] Occupational Medicine [address] documented in this encounter Visit Diagnoses Diagnosis Department Of Transportation Examination Department Of Motor Vehicles - Primary documented in this encounter Care Teams Residence Leasing Agent Relationship Specialty Start Date End Date Elsewhere, Pcp PCP - General 06/07/19 documented as of this encounter
--- OUTSIDE RECORDS SUMMARY | 2022-02-07 14:31 | XMS_ITS | Encounter Summary ---
:1960 Author Organization [facility] Address [address] [place] [address] Care Team Providers Name Role Phone Elsewhere, Pcp Primary Care Provider Unavailable Encounter Details Date Type Department Care Team Description 07/26/2019 Hospital Encounter Department of Jignesh Kelley Admini strative Purpose Laboratory Medicine M.D. Exam in [address] [address] [place], [place] [phone] [address] (Work) [phone] Social History Tobacco Use Types Packs/Day Years [...] or relatives? How often do you attend confucianist or Patient refused 2021 buddhist services? Do you belong to any clubs or No 12/20/2021 organizations such as confucianist groups, unions, fraternal or athletic groups, or [...] Date Recorded Male 06/23/2021 7:46 PM FILM SPOOLER documented as of this encounter Medications at [...] Exam documented in this encounter Care Teams Shank Pinner Relationship Specialty Start Date End Date Elsewhere, Pcp PCP - General 06/07/19 documented as of this encounter
--- OUTSIDE RECORDS SUMMARY | 2022-02-07 14:31 | XMS_ITS | Encounter Summary ---
:1960 Author Organization [facility] Address [address] [place] [address] Care Team Providers Name Role Phone Beth Valderrama P.A.-C. Primary Care Provider Encounter Details Date Type Department Care Team Description 11/12/2017 Clinical Communication Department of Maximo Joseph [facility], Kaushik Acosta [facility], [address] [place] [address] [phone] [address] (Work) [phone] Social History Tobacco Use Types Packs/Day Years [...] you attend yarsani or Patient refused 2021 taoist services? 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 Telephone Encounter - Gladys Whitten - 11/12/2017 10:54 AM CDT [facility] pharmacy called questioning the Ketoconazole shampoo, please call when available documented in this encounter Plan of Treatment Not on filedocumented as of this encounter Visit Diagnoses Not on filedocumented in this encounter Care Teams Photographer Aerial Relationship Specialty Start Date End Date Beth Valderrama P.A.-C. PCP - General Family Medicine 09/15/17 06/06/19 documented as of this encounter
--- OUTSIDE RECORDS SUMMARY | 2022-02-07 14:31 | XMS_ITS | Encounter Summary ---
:1960 Author Organization [facility] Address [address] [place] [address] Care Team Providers Name Role Phone Beth [...] Otorhinolaryngology in P.A.-C. Loss Hearing B[facility] videotape sales representative [address] [place] [phone] Social History Tobacco Use Types Packs/Day Years [...] you attend jew or Patient refused 2021 yarsanism services? Do [...] at Date Recorded Male 06/23/2021 7:46 PM PROCUREMENT OFFICER documented as of this encounter Last Filed Vital Signs Vital Sign Reading Time Taken Comments Blood Pressure 146/92 04/08/2019 8:30 AM PROCUREMENT OFFICER Pulse 74 04/08/2019 8:30 AM PROCUREMENT OFFICER Temperature 36.7 ??C (98.1 ??F) 04/08/2019 8:30 AM PROCUREMENT OFFICER Respiratory Rate - - Oxygen Saturation 97% 04/08/2019 8:30 AM PROCUREMENT OFFICER Inhaled Oxygen Concentration - - Weight - - Height - - Body Mass Index - - documented in this encounter Patient Instructions Patient InstructionsClara Hernandez P.A.-C. - 04/08/2019 8:30 AM CST UREMENT OFFICER documented in this encounter Progress Notes Clara [...] No history of clots, DVT, PE, or OK. Denies any left-sided symptoms. He is not [...] in future but declined at this time. UREMENT OFFICER documented in this encounter Plan of Treatment Not on filedocumented as of this encounter Visit Diagnoses Diagnosis Epistaxis - Primary Loss Hearing Bilateral documented in this encounter Care Teams Coal Pulverizing Operator Relationship Specialty Start Date End Date Beth Valderrama P.A.-C. PCP - General Family Medicine 09/15/17 06/06/19 documented as of this encounter
--- OUTSIDE RECORDS SUMMARY | 2022-02-07 14:31 | XMS_ITS | Encounter Summary ---
:1960 Author Organization [facility] Address [address] [place] [address] Care Team Providers Name Role Phone Soren Shea APRN, C.N.P. Primary Care Provider [phone] Reason for Visit Reason Comments Skin Check face Encounter Details Date Type Department Care Team Description 04/26/2017 Office Visit Department of Sim Templeton Dermatitis S eborrheic (Primary Dx); Dermatology in [facility] Campbell Dermat oheliosis; [place], [place] Keratosis [facility] [address] [place] [address] [place] [phone] Social History Tobacco Use Types Packs/Day Years [...] you attend episcopalian or Patient refused 2021 roman catholic services? 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 - 04/26/2017 12:00 AM CST [facility]. SUBJECTIVE CHIEF COMPLAINT/REASON FOR VISIT Chief [...] to be treated with laser therapy in [facility] and I would offer thisfor him. [...] him, thus benign observation recommended. Job ID: [id number] ICAL GARMENT ASSEMBLY SUPERVISOR documented in this encounter Plan of Treatment Not on filedocumented as of this encounter Visit Diagnoses Diagnosis Dermatitis Seborrheic - Primary Dermatoheliosis Keratosis [facility] documented in this encounter Care Teams Pecan Mallow Dipper Relationship Specialty Start Date End Date Soren Shea APRN, C.N.P. PCP - General 10/31/16 09/14/17 documented as of this encounter
--- OUTSIDE RECORDS SUMMARY | 2022-02-07 14:31 | XMS_ITS | Encounter Summary ---
:1960 Author Organization [facility] Address [address] [place] [address] Care Team Providers Name Role Phone Beth Valderrama P.A.-C. Primary Care Provider [phone] Reason for Visit Reason Comments Med Refill Encounter Details Date Type Department Care Team Description 11/11/2017 Refill Department of Family Medicine, Maximo Valderrama, Med Refill [facility], in [place] [address] [address] [place], [place] [address] [phone] Social History Tobacco Use Types Packs/Day Years [...] you attend lutheran or Patient refused 2021 gnosticist services? Do [...] at Date Recorded Male 06/23/2021 7:46 PM INFORMATION LEAD documented as of this encounter Plan of Treatment Not on filedocumented as of this encounter Visit Diagnoses Not on filedocumented in this encounter Care Teams Grain Packer Relationship Specialty Start Date End Date Beth Valderrama P.A.-C. PCP - General Family Medicine 09/15/17 06/06/19 documented as of this encounter
--- OUTSIDE RECORDS SUMMARY | 2022-02-07 14:31 | XMS_ITS | Encounter Summary ---
:1960 Author Organization [facility] Address [address] [place] [address] Care Team Providers Name Role Phone Beth Valderrama P.A.-C. Primary Care Provider Reason for Visit Reason Comments First Aid Attendant's License Exam Dias Equipment Encounter Details Date Type Department Care Team Description 01/27/2019 Office Visit Department of Laisha Yoon APRN [address] [place] [address] Department Of Occupational Medicine Sandra Sanches M.D. [address] [place] [address] Transportation in [facility] Examination Department [address] [facility] Of Motor Vehicles [place], [place] (Primary Dx) [address] Social History Tobacco [...] you attend anabaptism or Patient refused 2021 sabianist services? Do [...] Date Recorded Male 06/23/2021 7:46 PM FITTER TYPE BAR AND SEGMENT documented as of this encounter Last Filed [...] M.D., M.P.H. - 01/27/2019 3:45 PM CDT First Aid Attendant Medical Examination Subjective: Hussein Whittaker is a 58 y.o. 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 Color vision is normal. Field [...] (ABNORMAL) Urinalysis, Dipstick (01/27/2019 3:03 PM CDT) P athologist Signature Source VOID 01/27/2019 3:03 PM [...] - 8.0 01/27/2019 3:03 PM CDT Specific [place] >=1.030 1.001 - 1.035 01/27/2019 3:03 PM CDT Urobilinogen 0.2 0.2 - 1.0 mg/dL 01/27/2019 3:03 PM CD T Specimen Anatomical Collection Method Collection Time Receive d Time (Source) Location / / Volume Laterality Urine 01/27/2019 3:03 PM 9 3:07 CDT PM CDT Generic Rals LAB URINE ORDERABLES Performing Organization Address City/State/ZIP Code Phon e Number [facility] [address] [place] [address] documented in this encounter Visit Diagnoses Diagnosis Department Of Transportation Examination Department Of Motor Vehicles - Primary documented in this encounter Care Teams Informatics Scientist Relationship Specialty Start Date End Date ValderramaBeth man P.A.-C. PCP - General Family Medicine 09/15/17 06/06/19 documented as of this encounter
--- OUTSIDE RECORDS SUMMARY | 2022-02-07 14:31 | XMS_ITS | Encounter Summary ---
:1960 Author Organization [facility] Address [address] [place] [address] Care Team Providers Name Role Phone Unavailable Primary Care Provider Unavailable Encounter Details Date Type Department Care Team Description 04/30/2014 Hospital Encounter HX [facility] Mikey Smith III, M.D. 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 ENGINEER documented as of this encounter Last Filed Vital Signs Vital Sign Reading Time Taken Comments Blood Pressure 128/84 04/30/2014 10:12 AM CONTROL SYSTEMS ENGINEER Pulse 70 04/30/2014 10:12 AM CONTROL SYSTEMS ENGINEER Temperature - - Respiratory Rate 16 04/30/2014 10:12 AM CONTROL SYSTEMS ENGINEER Oxygen Saturation - - Inhaled Oxygen Concentration - - Weight - - Height 182 cm (5' 11.65) 04/30/2014 10:12 AM CONTROL SYSTEMS ENGINEER Body Mass Index - - documented in this encounter Medications at Time of Discharge Medication Sig Dispensed Refills Start Date End Date ASPIRIN ORAL Take 1 tablet by mouth daily. 0 01/1804/13/2021 documented as of this encounter Progress Notes Kavon Stubbs M.D. - 04/30/2014 9:39 AM CST [id number] CHIEF COMPLAINT/REASON FOR VISIT Evaluation of finger injury. HISTORY OF PRESENT ILLNESS Mr. Whittaker is a 57-year-old gentleman. Mr. Whittaker is here for evaluation of his left index finger. This was injured on 04/29/2014 at [facility] in [place], [place]. He was pushing carts in the [...] sent him with a copy of the [employer] Functional Capacity Evaluation. I will send a copy of that to Occupational Medicine. He did have a non-DOT urine drug screen done today. His questions were answered. Reassurance was given. Kavon Stubbs M.D./ryan Electronically Signed By: KAVON STUBBS III, MD On: 05/01/2014 08:44 AM Source: [facility] MHSDOLBEYNONRADSYS Document Id: [id number] ROL SYSTEMS ENGINEER documented in this encounter Nursing Notes Ariana Eid L.P.N. - 04/30/2014 10:29 AM CST Dermatology Intake Dermatology Intake Entered On: 04/30/2014 10:30 CONTROL SYSTEMS ENGINEER Performed On: 04/30/2014 10:29 CONTROL SYSTEMS ENGINEER by ARIANA EID LPN General Date of Last Dermatology Visit : 09/17/2011 CDT ARIANA EID LPN - 04/30/2014 10:29 CONTROL SYSTEMS ENGINEER Dermatology Intake History Pain Symptoms : Yes Past Dermatology History : Basal cell carcinoma ARIANA EID [facility] - 04/30/2014 10:29 CONTROL SYSTEMS ENGINEER Pain Pain Assessment Grid Location : Finger Intensity : 8 ARIANA EID [facility] - 04/30/2014 10:29 CONTROL SYSTEMS ENGINEER Dependent Habits Tobacco Use/Currently Using : No Exposure to Tobacco Smoke : Care provider denies smoking in home Smoking Status : Former smoker ARIANA EID Stoney [facility] - 04/30/2014 10:29 CONTROL SYSTEMS ENGINEER Tobacco Use Grid Type : Cigarettes Last Use : 1996 ARIANA EID Stoney [facility] - 04/30/2014 10:29 CONTROL SYSTEMS ENGINEER Caffeine Use Grid Caffeine Use : None ARIANA EID Stoney REINSURANCE CLERK - 04/30/2014 10:29 CONTROL SYSTEMS ENGINEER Recreational Drug Use Grid Drug Use : None ARIANA EID Stoney REINSURANCE CLERK - 04/30/2014 10:29 CONTROL SYSTEMS ENGINEER Preprocedural Pause Correct Patient Identity : Patient verbalizes self Correct Procedure Site and Side : subunguinal hematoma on left index finger release. Correct Procedure Site/Side Verified By : Patient/responsible libertarian Site Marking : Yes Pre-Procedure Pause Verbal Confirm. of : Procedure, Site, Side, Patient Position, Patient ID Preprocedural Pause : 10:30 CONTROL SYSTEMS ENGINEER Start Time : 10:30 CONTROL SYSTEMS ENGINEER JUANITOARIANA MCMILLAN Stoney [facility] - 04/30/2014 10:29 CONTROL SYSTEMS ENGINEER [facility] POWER[facility] Document Id: [id number] CONTROL SYSTEMS ENGINEER!33 ROL SYSTEMS ENGINEER documented in this encounter Miscellaneous Notes Miscellaneous - Alyssa Morris - 08/28/2016 2:14 PM CDT Health Maintenance Reminder August 28, 2016 HUSSEIN WHITTAKER [address] [place] [phone] Dear HUSSEIN WHITTAKER, We have developed a [...] visit with us more convenient. Please call [phone] to schedule services that are past due or that may shortly become due (thank you if you have already done so). We will follow up in six months should you have more services to schedule at that time. If you have already received any of the listed past due or upcoming services outside of [facility], please call [phone] to add them to your medical record. You may want to consider contacting your health insurance company to make sure these services are covered and find out if there will be any [id number] expense. If you have any questions about the services listed above, or if you are no longer receiving care from [facility], please contact us at [phone]. Thank you for partnering to provide you with the best care possible. We encourage you to set up your Patient Online Services account [facility] [email or web address], where you can communicate in a convenient way with us, schedule appointments, receive lab results and more. To set up your account, you will need your [facility] Number, which is [id number]. Thank you for choosing us, Soren Shea R.N. and the [facility], for your health care needs! Sincerely, ALYSSA MORRIS Electronic Signature Electronically Signed By: ALYSSA MORRIS On: August 28, 2016 This document has images extracted. Source: [facility] POWERCHART Document Id: [id number] ROL SYSTEMS ENGINEER Telephone Encounter - Conversion, Historical Provider Ser [...] 2015 08:04:34 CDT From: ARIANA EID LPN ([facility] Nurse Cespedes) To: SOREN SHEA NP; Sent: 10/25/2015 08:04:34 CDT Subject: Med Management noted pt will need appt before any further refills. On hold pending signature Order:omeprazole (omeprazole 40 mg oral delayed release capsule) 1 cap(s) PO Daily Pt needs to establish before next refill Qty: 30 cap(s) Refills: 0 Substitutions Allowed Route To Pharmacy - [facility] From: WU SEGURA ([facility]) To: [facility] Nurse Cespedes; Sent: 10/24/2015 16:32:37 CDT Subject: *Phone Message Caller is: ( X) Patient ( ) Mother ( ) Father ( ) Spouse ( ) Daughter ( ) Son ( ) Pharmacy ( ) Other: Physician: Shabbir Patient MRN #: Reason for Call: Renew RX Message: Patient called he needs a RX for his indegestion( antacid) route to [facility] Advice/Action: Source used: ( ) Verbalizes understanding [...] back cell phone number ( ) Source: [facility] POWERCHART Document Id: [id number] Miscellaneous - Conversion, Historical Provider Ser - [...] 0 Substitutions Allowed Route To Pharmacy - [facility] Signed by CARLO CAREY MD 10/17/2014 [...] 3 Substitutions Allowed Route To Pharmacy - [facility] Last ordered filled @ 09/18/13 [facility] Document Id: [id number] Miscellaneous - Alonso Sahni, C.N.A. - 05/04/2014 4:07 PM CST Functional Capacities Eval. From: ALONSO STARK To: ALONSO STARK; Sent: 05/04/2014 16:07:02 CONTROL SYSTEMS ENGINEER Subject: Functional Capacities Eval. Faxed to [employer] [facility] [employer] Occupational [facility]. Source: [facility] POWERCHART Document Id: [id number] Electronically signed by Conversion, [facility] Sheet Pile Hammer Operator [id number] at 10/15/2016 8:22 PM CDT Miscellaneous - Ariana Eid L.P.N. - 04/30/2014 10:12 AM CST Adult Bolt Sawyer Intake/History Adult Bolt Sawyer Intake/History Entered On: 04/30/2014 10:14 CONTROL SYSTEMS ENGINEER Performed On: 04/30/2014 10:12 CONTROL SYSTEMS ENGINEER by ARIANA EID LPN Intake Chief Complaint [...] inch(es)) ARIANA EID LPN - 04/30/2014 10:12 CONTROL SYSTEMS ENGINEER General Info Information Given By : Patient Languages : Belarusian Is Patient Female and 13-50 no hysterectomy : No ARIANA EID LPN - 04/30/2014 10:12 CONTROL SYSTEMS ENGINEER Subjective Pain Symptoms : Yes ARIANA EID LPN - 04/30/2014 10:12 CONTROL SYSTEMS ENGINEER Pain Pain Assessment Grid Pain 1 Location : Finger Laterality : Left Intensity : 8 ARIANA EID LPN - 04/30/2014 10:12 CONTROL SYSTEMS ENGINEER Dependent Habits Tobacco Use/Currently Using : No Exposure to Tobacco Smoke : Care provider denies smoking in home Smoking Status : Former smoker ARIANA EID LPN - 04/30/2014 10:12 CONTROL SYSTEMS ENGINEER Tobacco Use Grid Type : Cigarettes Last Use : 1996 ARIANA EID LPN - 04/30/2014 10:12 CONTROL SYSTEMS ENGINEER Caffeine Use Grid Caffeine Use : None ARIANA EID LPN - 04/30/2014 10:12 CONTROL SYSTEMS ENGINEER Recreational Drug Use Grid Drug Use : None ARIANA EID LPN - 04/30/2014 10:12 CONTROL SYSTEMS ENGINEER ID Screen Drug Resistant Organism : No Travel Within Last 21 Days : No ARIANA EID LPN - 04/30/2014 10:12 CONTROL SYSTEMS ENGINEER Source: [facility]escent HealingCHART Document Id: [id number] CONTROL SYSTEMS ENGINEER!41 ROL SYSTEMS ENGINEER Miscellaneous - Ariana Eid L.PShahzad - 04/30/2014 10:11 AM CST Health Assessment Health Assessment Entered On: 04/30/2014 10:12 CONTROL SYSTEMS ENGINEER Performed On: 04/30/2014 10:11 CONTROL SYSTEMS ENGINEER by ARIANA EID LPN Health Assessment Complete Health Assessment Complete or Modified : Annual Health Assessment Annual Health Assessment Completed : Yes ARIANA EID LPN - 04/30/2014 10:11 CONTROL SYSTEMS ENGINEER Nutrition Nutrition Risk Factors by History Adult : None ARIANA EID LPN - 04/30/2014 10:11 CONTROL SYSTEMS ENGINEER Functional Current Daily Living Assistance : None ARIANA EID LPN - 04/30/2014 10:11 CONTROL SYSTEMS ENGINEER Dependent Habits Tobacco Use/Currently Using : No Exposure to Tobacco Smoke : Care provider denies smoking in home Smoking Status : Former smoker ARIANA EID LPN - 04/30/2014 10:11 CONTROL SYSTEMS ENGINEER Tobacco Use Grid Type : Cigarettes Last Use : 1996 ARIANA EID LPN - 04/30/2014 10:11 CONTROL SYSTEMS ENGINEER Caffeine Use Grid Caffeine Use : None ARIANA EID LPN - 04/30/2014 10:11 CONTROL SYSTEMS ENGINEER Recreational Drug Use Grid Drug Use : None ARIANA EID LPN - 04/30/2014 10:11 CONTROL SYSTEMS ENGINEER Psychosocial Domestic Abuse Concerns : None Episcopalian Preference : No qualifying data available. ARIANA EID LPN - 04/30/2014 10:11 CONTROL SYSTEMS ENGINEER Advance Directive Advanced Directives : No Advance Directive Additional Information : No ARIANA EID LPN - 04/30/2014 10:11 CONTROL SYSTEMS ENGINEER Educ Needs Learning Style Preference Adult Grid Patient : Demonstration, Printed materials Family : ARIANA Guzman LPN - 04/30/2014 10:11 CONTROL SYSTEMS ENGINEER Source: [facility] [employer] Document Id: [id number] CONTROL SYSTEMS ENGINEER!32 ROL SYSTEMS ENGINEER documented in this encounter Plan of Treatment Not on filedocumented as of this encounter Procedures Procedure Name Priority Date/Time Associated Diagnosis Comme nts DRUG SCREEN URINE Routine 04/30/2014 11:30 AM Res ults for this CONTROL SYSTEMS ENGINEER procedure are i n the results section. documented in this encounter Results Drug Screen Urine (04/30/2014 11:30 AM CONTROL SYSTEMS ENGINEER) [facility] Method Time Signature HXU Amphet Scrn Negative [...] / Volume Laterality Urine 04/30/2014 11:30 AM CONTROL SYSTEMS ENGINEER Kavon Stubbs III, M.D. LAB URINE ORDERABLES Performing Organization Address City/State/ZIP Code Phon e Number POWERCHART documented in this encounter Visit Diagnoses Not on filedocumented in this encounter
--- OUTSIDE RECORDS SUMMARY | 2022-02-07 14:31 | XMS_ITS | Encounter Summary ---
:1960 Author Organization [facility] Address [address] [place] [address] Care Team Providers Name Role Phone Unavailable Primary Care Provider Unavailable Encounter Details Date Type Department Care Team Description 01/05/2015 Hospital Encounter HX [facility] Soren Shea , ANA, C.N.P. [address] [place], [place] [address] (Wo rk) Social History [...] you attend anglican or Patient refused 2021 muslim services? 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 0 01/1804/13/2021 documented as of this encounter Plan of Treatment Not on filedocumented as of this encounter Visit Diagnoses Not on filedocumented in this encounter
--- OUTSIDE RECORDS SUMMARY | 2022-02-07 14:31 | XMS_ITS | Encounter Summary ---
:1960 Author Organization [facility] Address [address] [place] [address] Care Team Providers Name Role Phone Beth Valderrama P.A.-C. Primary Care Provider Encounter Details Date Type Department Care Team Description 04/21/2019 Clinical Department of David, Clara, Communication [facility]ol[facility]ology in [facility] [place], [place] [address] [place] [address] [place], [place] [phone] Social History Tobacco Use Types Packs/Day [...] you attend episcopal or Patient refused 2021 yazdanism services? 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 - 04/23/2019 10:45 AM ARC WELDING MACHINE OPERATOR Called patient, relayed provider's message, see below, patient verbalized understanding and appointment is scheduled with Clara Hernandez P.A.-C. for 04/27/2019. WELDING MACHINE OPERATOR Telephone Encounter - Josue Veras L.P.N. - 04/22/2019 1:55 PM CST Called patient and left generic voice message on unidentified voice mailbox to return call to nurse line. WELDING MACHINE OPERATOR Telephone Encounter - Clara Hernandez P.A.-C. - 04/22/2019 1:38 PM CST Please have him come back in for a recheck. Thank you WELDING MACHINE OPERATOR Telephone Encounter - Josue Veras [...] leaving May 04, 2019 to go to [place] and would like to know if there is anything they can do before they leave. Routing to provider to address. WELDING MACHINE OPERATOR Telephone Encounter - Josue Veras L.P.N. - 04/22/2019 8:54 AM CST Called patient and left generic message on unidentified mailbox for a return call to nurse line. WELDING MACHINE OPERATOR Telephone Encounter - Josue Veras L.P.N. - 04/21/2019 8:11 AM CST Received message from patient, patient's message was inaudible. Choke Reamer called and left generic voicemessage on unidentified mailbox to return call to nurse line. WELDING MACHINE OPERATOR documented in this encounter Plan of Treatment Not on filedocumented as of this encounter Visit Diagnoses Not on filedocumented in this encounter Care Teams Meat Curer Relationship Specialty Start Date End Date Beth Valderrama P.A.-C. PCP - General Family Medicine 09/15/17 06/06/19 documented as of this encounter
--- OUTSIDE RECORDS SUMMARY | 2022-02-07 14:31 | XMS_ITS | Encounter Summary ---
:1960 Author Organization [facility] Address [address] [place] [address] Care Team Providers Name Role Phone Unavailable Primary Care Provider Unavailable Encounter Details Date Type Department Care Team Description 04/14/2015 Hospital Encounter HX [facility] Nhan Pacheco M.D. [id number] [place] [address] [place] [phone] (Wo rk) Social History [...] you attend jainism or Patient refused 2021 advent services? Do [...] Date Recorded Male 06/23/2021 7:46 PM YARD SUPERVISOR documented as of this encounter Medications at Time of Discharge Medication Sig Dispensed Refills Start Date End Date ASPIRIN ORAL Take 1 tablet by mouth daily. 0 01/1804/13/2021 documented as of this encounter Plan of Treatment Not on filedocumented as of this encounter Visit Diagnoses Not on filedocumented in this encounter
--- OUTSIDE RECORDS SUMMARY | 2022-02-07 14:31 | XMS_ITS | Encounter Summary ---
:1960 Author Organization [facility] Address [address] [place] [address] Care Team Providers Name Role Phone Unavailable Primary Care Provider Unavailable Encounter Details Date Type Department Care Team Description 04/29/2015 Hospital Encounter HX [facility] Pennie Downs M.D. [address] , [address] [place], [place] [address] (Wo rk) Social History [...] you attend episcopal or Patient refused 2021 hindu services? Do you belong to any clubs [...] Date Recorded Male 06/23/2021 7:46 PM SPORTS ACTIVITIES FOUL JUDGE documented as of this encounter Last Filed Vital Signs Vital Sign Reading Time Taken Comments Blood Pressure - - Pulse - - Temperature - - Respiratory Rate - - Oxygen Saturation - - Inhaled Oxygen Concentration - - Weight - - Height 183 cm (6' 0.05) 04/29/2015 10:32 AM SPORTS ACTIVITIES FOUL JUDGE Body Mass Index - - documented in this encounter Medications at Time of Discharge Medication Sig Dispensed Refills Start Date End Date ASPIRIN ORAL Take 1 tablet by mouth daily. 0 01/1804/13/2021 documented as of this encounter Progress Notes Carlo Carey M.D. - 04/29/2015 10:31 AM CST [id number] CHIEF COMPLAINT/REASON FOR VISIT Seborrheic dermatitis of face. HISTORY OF PRESENT ILLNESS Mr. Leny Hernandez is a very pleasant 54-year-old gentleman with a past medical history of a basal cell carcinoma on the left of his nose who presents for an evaluation of a mildly itchy, red rash around the nasolabial folds, upper cutaneous lip and preauricular areas, and the taoist areas, also on thomas areas, worse in [...] recommend use of 50 SPF sunscreen from [employer] 2 times daily to the skin when [...] CAREY MD On: 08/29/2015 03:09 PM Source: [facility] MHSDOLBEYNONRADSYS Document Id: [id number] documented in this encounter Nursing Notes Breann Rivera L.P.N. - 04/29/2015 11:03 AM CST Dermatology Intake Dermatology Intake Entered On: 04/29/2015 11:04 SPORTS ACTIVITIES FOUL JUDGE Performed On: 04/29/2015 11:03 SPORTS ACTIVITIES FOUL JUDGE by BREANN RIVERA Preferred Name : Hussein Accompanied By : Alone Chief Complaint : Follow up Rash Date of Last Dermatology Visit : 09/17/2011 CDT BREANN RIVERA - 04/29/2015 11:03 SPORTS ACTIVITIES FOUL JUDGE Dermatology Intake History Pain Symptoms : No Past Dermatology History : Basal cell carcinoma BREANN RIVERA - 04/29/2015 11:03 SPORTS ACTIVITIES FOUL JUDGE Dependent Habits Exposure to Tobacco Smoke : Care provider denies smoking in home, Other: former Smoking Status : Former smoker Tobacco 2A : Yes Tobacco Use/Currently Using : No Tobacco Use/Last 30 Days : No Tobacco Use/Last 12 months : No BREANN RIVERA - 04/29/2015 11:03 SPORTS ACTIVITIES FOUL JUDGE Caffeine Use Grid Caffeine Use : None BREANN RIVERA - 04/29/2015 11:03 SPORTS ACTIVITIES FOUL JUDGE Recreational Drug Use Grid Drug Use : None BREANN RIVERA - 04/29/2015 11:03 SPORTS ACTIVITIES FOUL JUDGE Source: [facility] POWERCHART Document Id: [id number] SPORTS ACTIVITIES FOUL JUDGE!22 TS ACTIVITIES FOUL JUDGE documented in this encounter Miscellaneous Notes Telephone Encounter - Conversion, Historical Provider Ser - 04/19/2016 9:50 AM CST *Phone Message Document Contains Addenda Addendum by CATHRYN MAYO CMA on April 24, 2016 09:53:05 SPORTS ACTIVITIES FOUL JUDGE called pt. and he states he has 3 spots on face x few months that are not going away and with a h/oBCC he is concerned about these spots. Offered pt. to go to [place] to [facility] sooner but he declined. Scheduled pt. on 06/08/16 at 11:30am with Dr. Carey in [place]. Pt. would like to be seen sooner if there is a cancellation and he can be reached at [phone]. From: ANNETTE ESPINAL ([place] [facility] Agricultural Equipment Design Engineer) To: [place] Dermatology Nurse; Sent: 04/19/2016 09:50:36 SPORTS ACTIVITIES FOUL JUDGE Subject: *Phone Message Caller is: (x ) [...] had taken off. Please call him at [phone] or [phone]. Advice/Action: Source used: ( ) Verbalizes understanding [...] back cell phone number ( ) Source: [facility] POWERCHART Document Id: [id number] Miscellaneous - Carlo Carey M.D. - 04/29/2015 11:51 AM CST Ambulatory Patient Summary [address] [place], [place] [id number] Visit Information Name: HUSSEIN HERNANDEZ [facility] Number: [id number] Current Date: 04/29/2015 11:51:27 Physicians [...] ITCHY 1xDay as needed. New Routed to [address] [id number] ketoconazole topical (Xolegel 2% topical gel) 1 matteo, Topical, once a day to redness and scaling of facial seborrhoeic dermatitis. [facility] [address] [place], [place] [id number] ketoconazole topical (Nizoral 2% topical shampoo) 1 matteo, Topical, once a day use as shampoo to scalpand face wash. leave on for 3-5 minutes then rinse. Routed to [address] [address] omeprazole (omeprazole 40 mg oral delayed release [...] Appointments Date Time Location Provider 05/04/2015 13:45 [facility] ENT Víctor CERNA, Sim Urbina Attention: Contact [...] if you dont have one. Go to [email or web address] and click on Create Your Account. Then, follow the directions to complete the online form. Youll be asked for your [facility] number which you can find at the top of this document. Your Goals/Additional instructions: Source: [facility] POWERCHART Document Id: [id number] TS ACTIVITIES FOUL JUDGE Miscellaneous - Carlo Carey M.D. - 04/29/2015 11:51 AM CST Ambulatory Discharge Medication List [address] [id number] Visit Information Name: HUSSEIN HERNANDEZ [facility] Number: [id number] Visit Date: 04/29/2015 11:51:25 Attending [...] ITCHY 1xDay as needed. New Routed to [facility] [phone] ketoconazole topical (Xolegel 2% topical gel) 1 matteo, Topical, once a day to redness and scaling of facial seborrhoeic dermatitis. Routed to [facility] [address] [place], [place] [id number] ketoconazole topical (Nizoral 2% topical shampoo) 1 matteo, Topical, once a day use as shampoo to scalpand face wash. leave on for 3-5 minutes then rinse. Routed to [address] [address] omeprazole (omeprazole 40 mg oral delayed release [...] Signed By: Signed On: Additional Information: Source: [facility] POWERCHART Document Id: [id number] TS ACTIVITIES FOUL JUDGE documented in this encounter Plan of Treatment Not on filedocumented as of this encounter Visit Diagnoses Not on filedocumented in this encounter
--- OUTSIDE RECORDS SUMMARY | 2022-02-07 14:31 | XMS_ITS | Encounter Summary ---
:1960 Author Organization [facility] Address [address] [place] [address] Care Team Providers Name Role Phone Elsewhere, Pcp Primary Care Provider Unavailable Encounter Details Date Type Department Care Team Description 01/06/2020 Hospital Encounter Department of [facility] Injury Foot Initial Radiology in [place]donado Bui M.D. [place], [place] [address] [place] [address] [place] [phone] Social History Tobacco Use Types Packs/Day [...] you attend baptism or Patient refused 2021 jainism services? Do [...] Date Recorded Male 06/23/2021 7:46 PM HAT AND CAP SEWER documented as of this encounter Medications at [...] Left documented in this encounter Care Teams Automatic Winder Operator Relationship Specialty Start Date End Date Elsewhere, Pcp PCP - General 06/07/19 documented as of this encounter
--- OUTSIDE RECORDS SUMMARY | 2022-02-07 14:31 | XMS_ITS | Encounter Summary ---
:1960 Author Organization [facility] Address [address] [place] [address] Care Team Providers Name Role Phone Unavailable Primary Care Provider Unavailable Encounter Details Date Type Department Care Team Description 07/06/2015 Hospital Encounter HX [facility] ENT Esa Francis M.D. [address] [place], [place] [phone] (Wo rk) Social History [...] you attend faith or Patient refused 2021 methodist services? Do [...] at Date Recorded Male 06/23/2021 7:46 PM STRADDLE BUG OPERATOR documented as of this encounter Last Filed Vital Signs Vital Sign Reading Time Taken Comments Blood Pressure 124/74 07/06/2015 1:24 PM STRADDLE BUG OPERATOR Pulse 71 07/06/2015 1:24 PM STRADDLE BUG OPERATOR Temperature - - Respiratory Rate 16 07/06/2015 1:24 PM STRADDLE BUG OPERATOR Oxygen Saturation - - Inhaled Oxygen Concentration - - Weight - - Height 183 cm (6' 0.05) 07/06/2015 1:24 PM STRADDLE BUG OPERATOR Body Mass Index - - documented in this encounter Medications at Time of Discharge Medication Sig Dispensed Refills Start Date End Date ASPIRIN ORAL Take 1 tablet by mouth daily. 0 01/1804/13/2021 documented as of this encounter Progress Notes Esa Francis M.D. - 07/06/2015 1:11 PM CST [id number] Mr. Hernandez is a very pleasant 54-year-old. [...] FRANCIS MD On: 08/03/2015 09:38 AM Source: [facility] MHSDOLBEYNONRADSYS Document Id: [id number] documented in this encounter Miscellaneous Notes Miscellaneous - Esa Francis M.D. - 07/06/2015 2:18 PM CST Ambulatory Patient Summary [address] [id number] Visit Information Name: PILO HERNANDEZ [facility] Number: [id number] Current Date: 07/06/2015 14:18:29 Physicians [...] Shortness of breath or trouble breathing ?? [phone] [facility], [address] [place] [address], [place] [address]. All rights reserved. This information is not [...] if you dont have one. Go to [email or web address] and click on Create Your Account. Then, follow the directions to complete the online form. Youll be asked for your [facility] number which you can find at the top of this document. Your Goals/Additional instructions: This document has images extracted. Please consider using app[employer] for all your patient education needs. Source: [facility] POWERCHART Document Id: [id number] DDLE BUG OPERATOR Miscellaneous - Esa Francis M.D. - 07/06/2015 2:18 PM CST Ambulatory Discharge Medication List [address] [id number] Visit Information Name: PILO HERNANDEZ [facility] Number: [id number] Visit Date: 07/06/2015 14:18:28 Attending [...] MD Signed On:06-JUL-2015 14:18:21 Additional Information: Source: [facility] POWERCHART Document Id: [id number] DDLE BUG OPERATOR Miscellaneous - Roxy Olguin RFarshadN. - 07/06/2015 1:24 PM CST Adult Gamer Intake/History Adult Gamer Intake/History Entered On: 07/06/2015 13:28 STRADDLE BUG OPERATOR Performed On: 07/06/2015 13:24 STRADDLE BUG OPERATOR by ROXY OLGUIN dough mixer operator Chief Complaint : f/u nosebleeds, was improved [...] inch(es)) ROXY OLGUIN RN - 07/06/2015 13:24 STRADDLE BUG OPERATOR General Info Information Given By : Patient Preferred Communication Mode : Verbal Languages : [place] Is Patient Female and 13-50 no hysterectomy : No ROXY OLGUIN RN - 07/06/2015 13:24 STRADDLE BUG OPERATOR Subjective Pain Symptoms : No ROXY OLGUIN RN - 07/06/2015 13:24 STRADDLE BUG OPERATOR Dependent Habits Exposure to Tobacco Smoke : Care provider denies smoking in home, Other: former Smoking Status : Former smoker Tobacco 2A : Yes Tobacco Use/Currently Using : No Tobacco Use/Last 30 Days : No Tobacco Use/Last 12 months : No ROXY OLGUIN RN - 07/06/2015 13:24 STRADDLE BUG OPERATOR Caffeine Use Grid Caffeine Use : None ROXY OLGUIN RN - 07/06/2015 13:24 STRADDLE BUG OPERATOR Recreational Drug Use Grid Drug Use : None ROXY OLGUIN RN - 07/06/2015 13:24 STRADDLE BUG OPERATOR Source: [facility] Zenter Document Id: [id number] STRADDLE BUG OPERATOR!34 DDLE BUG OPERATOR documented in this encounter Plan of Treatment Not on filedocumented as of this encounter Visit Diagnoses Not on filedocumented in this encounter
--- OUTSIDE RECORDS SUMMARY | 2022-02-07 14:31 | XMS_ITS | Encounter Summary ---
:1960 Author Organization [facility] Address [address] [place] [address] Care Team Providers Name Role Phone Unavailable Primary Care Provider Unavailable Encounter Details Date Type Department Care Team Description 06/08/2016 Hospital Encounter HX [facility] Pennie Downs M.D. [id number] , [address] [place], [place] [address] (Wo rk) Social History [...] you attend mormonism or Patient refused 2021 caodaism services? Do [...] or slept in a prison (including now)? Sex Assigned at Date Recorded Male 06/23/2021 7:46 PM LATH HAND documented as of this encounter Last Filed Vital Signs Vital Sign Reading Time Taken Comments Blood Pressure - - Pulse - - Temperature - - Respiratory Rate - - Oxygen Saturation - - Inhaled Oxygen Concentration - - Weight - - Height 183 cm (6' 0.05) 06/08/2016 11:25 AM LATH HAND Body Mass Index - - documented in [...] documented as of this encounter Progress Notes Calro Carey M.D. - 06/08/2016 11:24 AM CST [id number] CHIEF COMPLAINT/REASON FOR VISIT Spot on right anterior zoroastrian. HISTORY OF PRESENT ILLNESS Mr. Hussein Whittaker is a very pleasant 55-year-old gentleman who presents for an evaluation of a 6-month history of a small, red, circular papule that has become rust and red/brown color, scaly raised and conical over the last 6 months on the right anterior zoroastrian that does not itch, does not bleed, [...] for a scaly spot on the left zoroastrian and a scaly spot on the right [...] seborrheic dermatitis flare. On the right anterior zoroastrian, right upper cheek and other location noted [...] the cream to dry skin. Sent to [facility] in [place] (pharmacy number provided). 3. Seborrheic dermatitis flare. [...] recommend use of 50 SPF sunscreen from [place] 2 times daily to the skin when [...] applied, care instructions explained. Patient given pamphlet [id number]. 7. Waist up skin exam: A skin [...] CAREY MD On: 07/22/2016 01:23 PM Source: [facility] MHSDOLBEYNONRADSYS Document Id: [id number] HAND documented in this encounter Nursing Notes Breann Becerra, LFarshadPFarshadNFarshad - 06/08/2016 11:32 AM CST Dermatology Intake Dermatology Intake Entered On: 06/08/2016 11:33 LATH HAND Performed On: 06/08/2016 11:32 LATH HAND by BREANN BECERRA General Preferred Name : Hussein Accompanied By : Alone Chief Complaint : 3 spots on face Date of Last Dermatology Visit : 09/17/2011 CDT BREANN BECERRA - 06/08/2016 11:32 LATH HAND Dermatology Intake History Pain Symptoms : No Past Dermatology History : Basal cell carcinoma BREANN BECERRA - 06/08/2016 11:32 LATH HAND Dependent Habits Exposure to Tobacco Smoke : Care provider denies smoking in home, Other: former Smoking Status : Former smoker Tobacco 2A : Yes Tobacco Use/Currently Using : No Tobacco Use/Last 30 Days : No Tobacco Use/Last 12 months : No MIGUEL BREANN - 06/08/2016 11:32 LATH HAND Caffeine Use Grid Caffeine Use : None BREANN BECERRA - 06/08/2016 11:32 LATH HAND Recreational Drug Use Grid Drug Use : None BREANN BECERRA - 06/08/2016 11:32 LATH HAND Source: [facility] POWERCHART Document Id: [id number] LATH HAND!22 HAND documented in this encounter Miscellaneous Notes Nataleecellaneous - Carlo Craey M.D. - 06/17/2016 5:41 PM CST Results Notification Document Contains Addenda Addendum by BREANN BECERRA on June 17, 2016 18:25:39 LATH HAND noted From: CARLO CAREY MD To: [place] Dermatology Nurse; Sent: 06/17/2016 17:41:46 LATH HAND Show up: 06/17/2016 17:42:00 LATH HAND Subject: Results Notification No need to call patient. Letter sent. A. DermPath Consultation, Wet Tissue; right medial shoulder: Lentiginous junctional nevus Comment: Clinical photo reviewed. Results: Date Result Name Value 06/08/2016 12:00 Drm Exam Accn[place] [id number] 06/08/2016 12:00 Drm Exam Addr[place] See Comment 06/08/2016 12:00 Drm Exam Impr[place] See Comment 06/08/2016 12:00 Drm Exam Mtrl[place] See Comment 06/08/2016 12:00 Drm Exam Refer[place] See Comment 06/08/2016 12:00 Drm Exam Sign[place] See Comment 06/08/2016 12:00 Drm Exam Site[facility] See Comment [facility] Document Id: [id number] Miscellaneous - Carlo Carey M.D. - 06/17/2016 5:41 PM CST Custom Result Letter June 17, 2016 HUSSEIN WHITTAKER [address] [facility] [id number] Dear HUSSEIN WHITTAKER, During your evaluation in [...] questions. Result Name Current Result Drm Exam Accn[facility] [id number] 06/08/2016 Drm Exam Addr-[place] See Comment 06/08/2016 Drm Exam Impr-[place] See Comment 06/08/2016 Drm Exam Mtrl[place] See Comment 06/08/2016 Drm Exam Refer-[place] See Comment 06/08/2016 Drm Exam Sign-[place] See Comment 06/08/2016 Drm Exam [place] See Comment 06/08/2016 Sincerely, CARLO CAREY [facility] [address] [place] [address] Electronic Signature Electronically Signed By: CARLO CAREY MD On: June 17, 2016 This document has images extracted. Source: [facility] POWERCHART Document Id: [id number] Electronically signed by Hung, [facility] Hydrology Professor [id number] at 10/29/2016 3:22 AM CDT Telephone Encounter - Conversion, Historical Provider Ser - 06/17/2016 9:06 AM CST *Phone Message Document Contains Addenda Addendum by BREANN BECERRA on June 17, 2016 16:35:16 LATH HAND Spoke with the patient and he thought that Dr. Carey was refilling his omeprazole. I explained that Dr. Carey does not prescribe omeprazole and he would need to be seen by Family practice for refill or he could try omeprazole over the counter. Patient thanked me for the clarification. Addendum by ANNETTE ESPINAL on June 17, 2016 15:47:26 LATH HAND From: ANNETTE ESPINAL (MA Family Medicine Jitney Driver) To: MA Dermatology Nurse; Sent: 06/17/2016 15:47:26 LATH HAND ! Subject: FW: *Phone Message Please call Hussein back as he called again to get this taken care of. From: ANNETTE ESPINAL (MA Family Medicine Jitney Driver) To: MA Dermatology Nurse; Sent: 06/17/2016 09:06:53 LATH HAND ! Subject: *Phone Message Caller is: ( [...] fill. Please call on his cell phone [phone]. Advice/Action: Source used: ( ) Verbalizes understanding [...] back cell phone number ( ) [facility] Document Id: [id number] Miscellaneous - Durga Bautista I, R.N. - 06/12/2016 12:29 PM CST *General Message From: DURGA BAUTISTA RN (MA Colonoscopy Pool) To: MA Colonoscopy Pool; Sent: 06/12/2016 12:29:00 LATH HAND Subject: *General Message Due Date/Time: 11/23/2019 12:28:00 CDT Source: [facility] [employer]jo Document Id: [id number] Electronically signed by [facility], [facility] Hydrology Professor [id number] at 10/29/2016 3:22 AM CDT Miscellaneous - Carlo Carey M.D. - 06/08/2016 12:16 PM CST Ambulatory Patient Summary [place] [place] [id number] Visit Information Name: HUSSEIN WHITTAKER [facility] Number: [id number] Current Date: 06/08/2016 12:16:05 Physicians Attending Provider: CARLO CAREY MD Primary Care Provider: WILBERTO OLGUIN TILE BURNER HUSSEIN WHITTAKER has been given the following [...] 4 months for precancers. New Routed to [address] [address] ketoconazole topical (Nizoral 2% topical shampoo) 1 matteo, Topical, once a day use as shampoo to scalpand face wash. leave on for 3-5 minutes then rinse. This is a CHANGE Routed to [address] [place] [address] mometasone topical (mometasone 0.1% topical lotion) 1 matteo, Topical, once a day to seborrhoeic dermatitis of face once daily as needed. New Routed to [address] [address] omeprazole (omeprazole 40 mg oral [...] if you dont have one. Go to [email or web address] and click on Create Your Account. Then, follow the directions to complete the online form. Youll be asked for your [facility] number which you can find at the top of this document. Your Goals/Additional instructions: Source: [facility] POWERCHART Document Id: [id number] HAND Miscellaneous - Carlo Carey M.D. - 06/08/2016 12:16 PM CST Ambulatory Discharge Medication List [address] [id number] Visit Information Name: HUSSEIN WHITTAKER [facility] Number: [id number] Current Date: 06/08/2016 12:16:00 Attending Provider: CARLO CAREY MD Primary Care Provider: WILBERTO OLGUIN TILE BURNER HUSSEIN WHITTAKER has been given the following [...] 4 months for precancers. New Routed to [address] [address] ketoconazole topical (Nizoral 2% topical shampoo) 1 matteo, Topical, once a day use as shampoo to scalpand face wash. leave on for 3-5 minutes then rinse. This is a CHANGE Routed to [address] [address] mometasone topical (mometasone 0.1% topical lotion) 1 matteo, Topical, once a day to seborrhoeic dermatitis of face once daily as needed. New Routed to [address] [address] omeprazole (omeprazole 40 mg oral [...] MD Signed On:08-JUN-2016 12:15:59 Additional Information: Source: [facility] POWERCHART Document Id: [id number] HAND Miscellaneous - Conversion, Historical Provider Ser - 05/31/2016 2:27 PM LATH HAND *General Message From: TE MITTAL To: [place] Colonoscopy Pool; Sent: 05/31/2016 14:27:12 LATH HAND Subject: *General Message Please check patient. Last colonoscopy was 2009. Source: [facility] K[employer]jo Document Id: [id number] documented in this encounter Plan of Treatment Not on filedocumented as of this encounter Procedures Procedure Name Priority Date/Time Associated Comments Diagnosis DERMATOPATHOLOGY CONSULT Routine 06/08/2016 12:00 Results for this PM LATH HAND procedure are i n the results section. LAB SURG PATH,LEVEL IV Routine 06/08/2016 12:00 R esults for this PRO AND TECH PM LATH HAND procedure are i n the results section. documented in this encounter Results LAB SURG PATH,LEVEL IV PRO AND TECH (06/08/2016 12:00 PM LATH HAND) Analysis Performed At [facility] logist Time Signature HXLvl IV Surg Performed POWERCHART [facility] Comment: Test Performed by: [place] [address] Alterations Expert: Song Payton II, M.D., Ph.D. Specimen Anatomical Collection Method Collection Time Receive d Time (Source) Location / / Volume Laterality Tissue 06/08/2016 12:00 06/11/2016 7:19 PM LATH HAND AM LATH HAND Historical Provider CHG LABORATORY Performing Organization Address City/State/ZIP Code Phon e Number POWERCHART PATHOLOGY DERMPATH CONSULT, WET TISSUE (06/08/2016 12:00 PM LATH HAND) [facility] gist Method Time Signature HXDrm Exam [id number]OWER[address] [facility] HXDrm Exam See Comment POWERCHART [facility] Comment: RESULT: Carlo Carey M.D. HXDrm Exam Addr[place] See Comment POWERCH ART Comment: [facility]-[place] [place] [address] HXDrm Exam [facility] See Comment POWERCH ART Comment: RESULT: A. DermPath Consultatio n, Wet Tissue; right medial shoulder: HXDrm Exam Site[place] See Comment POWERCH ART Comment: A. ??Received [...] submitted entirely in cassette A1. HXDrm Exam [facility] See Comment POWERCH ART Comment: A. ??DermPath Consultation, Wet Tissue; right medial shoulder: Lentiginous junctional nevus Comment: ??Clinical photo reviewed. HXDrm Exam Sign-[place] See Comment POWERCH ART Comment: RESULT: 06/13/2016 12:05 ??Interpreted by : Cari Robles M.D Report electronically signed by Cari Robles M.D. Transcribed by: [email or web address] 06/13/2016 10:08:56 Test Performed by: [place] [address] Alterations Expert: Song Payton II, M.D., Ph.D. Specimen (Source) Anatomical Collection Method Collection Time Re ceived Time Location / / Volume Laterality Tissue 06/08/2016 12:00 PM LATH HAND Carlo Carey M.D. LAB PATH DERM ORDERABLES Performing Organization Address City/State/ZIP Code Phon e Number POWERCHART documented in this encounter Visit Diagnoses Not on filedocumented in this encounter
--- OUTSIDE RECORDS SUMMARY | 2022-02-07 14:31 | XMS_ITS | Encounter Summary ---
:1960 Author Organization [facility] Address [address] [place] [address] Care Team Providers Name Role Phone Beth Valderrama P.A.-C. Primary Care Provider Encounter Details Date Type Department Care Team Description 03/02/2018 Clinical Communication Department of [facility], Kaushik Ac[facility], [id number] [place] [address] [phone] [address] (Work) [phone] Social History Tobacco Use Types Packs/Day Years [...] you attend methodist or Patient refused 2021 jew services? 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 PCP - General Family Medicine 09/15/17 06/06/19 documented as of this encounter
--- OUTSIDE RECORDS SUMMARY | 2022-02-07 14:31 | XMS_ITS | Encounter Summary ---
:1960 Author Organization [facility] Address [address] [place] [address] Care Team Providers Name Role Phone Soren Shea APRN, C.N.P. Primary Care Provider [phone] Encounter Details Date Type Department Care Team Description 03/18/2017 Orders Only Department of Family Soren Shea Scr eening Examination Diabetes Mellitus; Medicine, Yuki Bui APRN, C.N.P. General Medical Examination Adult Clinic, in [address] [phone] [place], [place] (Work) [address] [phone] Social History Tobacco Use Types Packs/Day Years [...] you attend sikhism or Patient refused 2021 yazidi services? 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 PCP - General 10/31/16 09/14/17 documented as of this encounter
--- OUTSIDE RECORDS SUMMARY | 2022-02-07 14:31 | XMS_ITS | Encounter Summary ---
:1960 Author Organization [facility] Address [address] [place] [address] Care Team Providers Name Role Phone Elsewhere, Pcp Primary Care Provider Unavailable Reason for Referral Specialty Diagnoses / Procedures Referred By Contact Refer red To Contact [facility] [address] [place] [address] Referral ID Status Reason Start Date Expiration Date Visits Requ ested Visits Authorized Encounter Details Date Type Department Care Team Description 08/10/2020 Immunization Department of [facility] Katey Laguna Enco unter For COVID-19 Medicine, Hadley M.D. Vaccine Immunization Professional Building, [address] (Primary Dx) in [place], [place] [address] [place] [phone] [place] [address] Social History Tobacco Use Types Packs/Day [...] you attend advent or Patient refused 2021 yazidism services? 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
--- OUTSIDE RECORDS SUMMARY | 2022-02-07 14:31 | XMS_ITS | Encounter Summary ---
:1960 Author Organization [facility] Address [address] [place] [address] Care Team Providers Name Role Phone Unavailable Primary Care Provider Unavailable Encounter Details Date Type Department Care Team Description 05/02/2016 Hospital Encounter [facility] Ang Hernandez, FINNISH RUBBER [address] [place], [place] [phone] (Wo rk) Social History [...] or relatives? How often do you attend quaker or Patient refused 2021 jew services? 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 documented as of this encounter Last Filed Vital Signs Vital Sign Reading Time Taken Comments Blood Pressure 126/80 05/02/2016 10:55 AM CORDWOOD CUTTER HELPER Pulse 80 05/02/2016 10:55 AM CORDWOOD CUTTER HELPER Temperature - - Respiratory Rate 16 05/02/2016 10:55 AM CORDWOOD CUTTER HELPER Oxygen Saturation - - Inhaled Oxygen Concentration - - Weight 117 kg (258 lb 6.1 oz) 05/02/2016 10:55 AM CORDWOOD CUTTER HELPER Height 183 cm (6' 0.05) 05/02/2016 10:55 AM CORDWOOD CUTTER HELPER Body Mass Index 35 05/02/2016 10:55 AM CORDWOOD CUTTER HELPER documented in this encounter Medications at Time of Discharge Medication Sig Dispensed Refills Start Date End Date ASPIRIN ORAL Take 1 tablet by mouth daily. 0 01/1804/13/2021 documented as of this encounter Consult Notes Nohemi Carlos APRN, C.N.P. - 05/02/2016 11:55 AM CST Complete Evaluation CHIEF COMPLAINT/REASON FOR VISIT left shoulder pain-moving a cart and started having shoulder pain DOI: 04/23/16 [employer] HISTORY OF PRESENT ILLNESS Employer: [employer] DOI: 04/23/2016 Position: Emanuel Savage is a [...] tingling, weakness. OCCUPATIONAL HISTORY Patient works for [employer] on a full-time status for 36 [...] Ordered: OV New Pt Level 4 - [address]1984 - 45 min Electronically Signed By: NOHEMI CARLOS APRN, CNP On: 05/02/2016 12:07 PM Source: [facility] POWERCHART Document Id: [id number] WOOD CUTTER HELPER documented in this encounter Miscellaneous Notes Miscellaneous - Nohemi Carlos APRN, C.N.P. - 05/02/2016 11:55 AM CORDWOOD CUTTER HELPER Ambulatory Patient Summary [facility] [address] [place], [address] [place], [place] [phone] Visit Information Name: MARY HUSSEIN NOWAK [facility] Number: [id number] Current Date: 05/02/2016 11:55:44 Physicians Attending Provider: NOHEMI CARLOS APRN, CNP Primary Care Provider: WILBERTO OLGUIN TYPEWRITER MECHANIC MARCY HERNANDEZMOND ELIU has been given the [...] case of emergency. Electronically Signed By: NOHEMI CARLOS APRN, CNP Signed On:02-MAY-2016 11:55:41 Your Allergies & Intolerances Substance Reaction Symptoms Category Comments Nyquil Cold Medicine Drug Your Problem List Problem Status Onset Comments Hematuria, microscopic Active 02/23/2007 GERD [Gastroesophageal reflux disease] Active 2008 Personal History of Tobacco Use Active 07/04/11 quit in 1996 Your Upcoming Appointments Date Time Location Provider 06/08/2016 11:30 [facility] Gerardo Gordillo MD, Jamarcus Kaplan Attention: [...] if you dont have one. Go to [email or web address] and click on Create Your Account. Then, follow the directions to complete the online form. Youll be asked for your [facility] number which you can find at the top of this document. Your Goals/Additional instructions: Source: [facility] POWERCHART Document Id: [id number] WOOD CUTTER HELPER Miscellaneous - Nohemi Carlos APRN, C.N.P. - 05/02/2016 11:55 AM CORDWOOD CUTTER HELPER Ambulatory Discharge Medication List [facility] [address], [address] [place], [place] [phone] Visit Information Name: HUSSEIN HERNANDEZ [facility] Number: [id number] Current Date: 05/02/2016 11:55:42 Attending Provider: NOHEMI CARLOS APRN, CNP Primary Care Provider: WILBERTO OLGUIN TYPEWRITER MECHANIC HUSSEIN HERNANDEZ has been given the following [...] case of emergency. Electronically Signed By: NOHEMI CARLOS APRN, CNP Signed On:02-MAY-2016 11:55:41 Additional Information: Source: [facility] POWERCHART Document Id: [id number] WOOD CUTTER HELPER Miscellaneous - Arden Olivo L.PFarshadN. - 05/02/2016 10:55 AM CST Adult Straightening Machine Operator Intake/History Adult Straightening Machine Operator Intake/History Entered On: 05/02/2016 11:05 CORDWOOD CUTTER HELPER Performed On: 05/02/2016 10:55 CORDWOOD CUTTER HELPER by ARDEN OLIVO LPN Intake Chief Complaint : left shoulder [...] Body Mass Index : 35 kg/m2 ARDEN OLIVO [facility] 05/02/2016 10:55 CORDWOOD CUTTER HELPER General Info Information Given By : Patient Languages : Macedonian Is Patient Female and 13-50 no hysterectomy : No ARDEN OLIVO [employer] 05/02/2016 10:55 CORDWOOD CUTTER HELPER Subjective Pain Symptoms : Yes ARDEN OLIVO [facility] 05/02/2016 10:55 CORDWOOD CUTTER HELPER Pain Scale Pain Scale Verbal 0-10 : Open ARDEN OLIVO [facility] 05/02/2016 10:55 CORDWOOD CUTTER HELPER Pain Pain Assessment Grid Pain 1 Location : Shoulder Laterality : Left Intensity : 2 ARDEN OLIVO [facility] 05/02/2016 10:55 CORDWOOD CUTTER HELPER Dependent Habits Exposure to Tobacco Smoke : Care provider denies smoking in home, Other: former Smoking Status : Never smoker Tobacco 2A : No Tobacco Use/Currently Using : No Tobacco Use/Last 30 Days : No Tobacco Use/Last 12 months : No ARDEN OLIOV [facility] 05/02/2016 10:55 CORDWOOD CUTTER HELPER Caffeine Use Grid Caffeine Use : None ARDEN OLIVO [facility] 05/02/2016 10:55 CORDWOOD CUTTER HELPER Recreational Drug Use Grid Drug Use : None ARDEN OLIVO [employer] 05/02/2016 10:55 CORDWOOD CUTTER HELPER Source: [facility] POWERCHART Document Id: [id number] CORDWOOD CUTTER HELPER!44 WOOD CUTTER HELPER documented in this encounter Plan of Treatment Not on filedocumented as of this encounter Visit Diagnoses Not on filedocumented in this encounter
--- OUTSIDE RECORDS SUMMARY | 2022-02-07 14:31 | XMS_ITS | Encounter Summary ---
:1960 Author Organization [facility] Address [address] [place] [address] Care Team Providers Name Role Phone Unavailable Primary Care Provider Unavailable Encounter Details Date Type Department Care Team Description 05/04/2015 Hospital Encounter [facility]X [facility] E[facility] Esa Francis M.D. [address] [place], [place] [phone] (Wo rk) Social History [...] or relatives? How often do you attend anabaptist or Patient refused 2021 yarsanism services? 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 0 01/1804/13/2021 documented as of this encounter Consult Notes Esa Francis M.D. - 05/04/2015 1:44 PM CST [id number] Mr. Whittaker is a pleasant 54-year-old gentleman. [...] bleeding. He voiced understanding and agreement. Esa Francis M.D./ryan Electronically Signed By: ESA FRANCIS MD On: 05/11/2015 01:00 PM Source: [facility] MHSDOLBEYNONRADSYS Document Id: [id number] MACHINE OPERATOR documented in this encounter Miscellaneous Notes Miscellaneous - Allegra Desai, CFarshadMMagno - 05/08/2015 8:57 AM CST *General Message From: ALLEGRA DESAI [facility] Sent: 05/08/2015 08:57:35 ICER MACHINE OPERATOR Subject: *General Message patient called had nose cauterized and he blew his nose and it started bleeding he did get it to stop. Instructed patient to come back in if he has any further problems and to refrain from blowing hisnose if at all possible for the next week to let that heal Source: [facility] POWERCHART Document Id: [id number] Miscellaneous - Roxy Olguin R.N. - 05/04/2015 1:54 PM CST Adult Repairer Wood Furniture Intake/History Adult Repairer Wood Furniture Intake/History Entered On: 05/04/2015 13:58 ICER MACHINE OPERATOR Performed On: 05/04/2015 13:54 ICER MACHINE OPERATOR by ROXY OLGUIN associate professor of literature Chief Complaint : frequent bloody nose x [...] inch(es)) ROXY OLGUIN RN - 05/04/2015 13:54 ICER MACHINE OPERATOR General Info Information Given By : Patient Preferred Communication Mode : Verbal Languages : Kittitian Is Patient Female and 13-50 no hysterectomy : No ROXY OLGUIN RN - 05/04/2015 13:54 ICER MACHINE OPERATOR Subjective Pain Symptoms : No ROXY OLGUIN RN - 05/04/2015 13:54 ICER MACHINE OPERATOR Dependent Habits Exposure to Tobacco Smoke : Care provider denies smoking in home, Other: former Smoking Status : Former smoker Tobacco 2A : Yes Tobacco Use/Currently Using : No Tobacco Use/Last 30 Days : No Tobacco Use/Last 12 months : No ROXY OLGUIN RN - 05/04/2015 13:54 ICER MACHINE OPERATOR Caffeine Use Grid Caffeine Use : None ROXY OLGUIN RN - 05/04/2015 13:54 ICER MACHINE OPERATOR Recreational Drug Use Grid Drug Use : None ROXY OLGUIN RN - 05/04/2015 13:54 ICER MACHINE OPERATOR Source: [facility] POWERCHART Document Id: [id number] ICER MACHINE OPERATOR!34 MACHINE OPERATOR Miscellaneous - Marychuy Nam - 04/18/2015 1:19 PM CST Reminder Msg From: MARYCHUY NAM ([place] Colonoscopy Pool) To: [place] Colonoscopy Pool; Sent: 04/18/2015 13:19:07 ICER MACHINE OPERATOR Show up: 09/13/2019 13:19:00 CDT Subject: Reminder Msg Due Date/Time: 12/13/2019 13:19:00 CDT Please Remember to: Pt. has Colonoscopy DUE: 12/13/2019 Due 10 years from last procedure (12/12/2009). PATIENT: ( ) Call Patient ( ) Ask Patient to ( ) ( ) Call Relative ( ) Schedule Patient ( ) ( ) Call for Event Planner ( ) Follow up on Results ( ) Other: PROVIDER: ( ) Call Physician ( ) Call Pharmacist ( ) Call Lab ( ) Other: Special Instructions: Comments: Source: [facility] POWERCHART Document Id: [id number] Electronically signed by Conversion, [facility] Solution Director [id number] at 10/14/2016 9:37 AM CDT documented in this encounter Plan of Treatment Not on filedocumented as of this encounter Visit Diagnoses Not on filedocumented in this encounter
--- OUTSIDE RECORDS SUMMARY | 2022-02-07 14:31 | XMS_ITS | Encounter Summary ---
:1960 Author Organization [facility] Address [address] [place] [address] Care Team Providers Name Role Phone Soren Olguin APRN, C.N.P. Primary Care Provider [phone] Encounter Details Date Type Department Care Team Description 02/05/2017 Hospital Encounter HX [facility] Kayla Kelley M.D. [address] [place] [address] [place] [phone] (Wo rk) Social History [...] you attend episcopalian or Patient refused 2021 oriental orthodox services? 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 POWERCHART Document Id: [id number] documented in this encounter Miscellaneous Notes Miscellaneous - Kayla Kelley M.D. - 02/05/2017 5:48 PM CDT Ambulatory Patient Summary [address] [id number] Visit Information Name: PILO HERNANDEZ [facility] Number: [id number] Current Date: 02/05/2017 17:48:50 Physicians Attending Provider: KAYLA KELLEY MD Primary Care Provider: SOREN OLGUIN CNP RN PILO HERNANDEZ has been given the following [...] day This is a CHANGE Routed to [address] [address] Stop Taking the Following Medications: Medication list [...] if you dont have one. Go to [email or web address] and click on Create Your Account. Then, follow the directions to complete the online form. Youll be asked for your [facility] number which you can find at the top of this document. Your Goals/Additional instructions: Source: [facility] POWERCHART Document Id: [id number] Miscellaneous - Kayla Kelley M.D. - 02/05/2017 5:48 PM CDT Ambulatory Discharge Medication List [address] [id number] Visit Information Name: PILO HERNANDEZ ELIU [facility] Number: [id number] Current Date: 02/05/2017 17:48:48 Attending Provider: KAYLA KELLEY MD Primary Care Provider: SOREN OLGUIN CNP, RN PILO HERNANDEZ has been given the following [...] day This is a CHANGE Routed to [address] [id number] Stop Taking the Following Medications: Medication list [...] MD Signed On:05-FEB-2017 17:48:46 Additional Information: Source: [facility] POWERCHART Document Id: [id number] Miscellaneous - Frances Ring, L.P.N. - 02/05/2017 [...] RING LPN - 02/05/2017 17:09 CDT [facility] Document Id: [id number] CDT!8 Miscellaneous - Frances Ring L.P.N. - 02/05/2017 5:01 PM CDT Adult Civil Engineering Project Manager Intake/History Adult Civil Engineering Project Manager Intake/History Entered On: 02/05/2017 17:07 CDT Performed On: 02/05/2017 17:01 CDT by FRANCES RIGN LPN Intake Chief Complaint : DOT Peripheral [...] Information Given By : Patient Languages : Turkish Is Patient Female and 13-50 no hysterectomy [...] RING LPN - 02/05/2017 17:01 CDT Source: [facility] POWERCHART Document Id: [id number] CDT!37 documented in this encounter Plan of [...] Color Yellow Colorless POWERCHART Specific >=1.030 POWERCHART [place], POCT, U Comment: Reference Range Specific [place]: 1.000-1.035 pH, POCT, Urine 5.0 <5.0 POWERCHART [...] on filedocumented in this encounter Care Teams Jewelry Bench Molder Relationship Specialty Start Date End Date Soren Olguin APRN, C.N.P. PCP - General 10/31/16 09/14/17 documented as of this encounter
--- OUTSIDE RECORDS SUMMARY | 2022-02-07 14:31 | XMS_ITS | Encounter Summary ---
:1960 Author Organization [facility] Address [address] [place] [address] Care Team Providers Name Role Phone Unavailable Primary Care Provider Unavailable Encounter Details Date Type Department Care Team Description 09/21/2016 Hospital Encounter HX [facility] DERM Jennifer Joel M.D. [address] [place] [address] (Wo rk) Social History Tobacco [...] you attend buddhism or Patient refused 2021 church services? 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 - 09/21/2016 11:53 AM CDT [id number] Document Contains Addenda CHIEF COMPLAINT/REASON FOR VISIT [...] the patient by letter. Patient given pamphlet [id number]. INFORMED CONSENT: Discussed the risks, benefits, alternatives, [...] SMITH MD On: 09/30/2016 01:10 PM Source: [facility] MHSDOLBEYNONRADSYS Document Id: [id number] documented in this encounter Nursing Notes Neha [...] CORRALES LPN - 09/21/2016 12:00 CDT Source: [facility] Blink Logic Document Id: [id number] CDT!24 documented in this encounter Miscellaneous Notes [...] Result Name Value 09/21/2016 15:00 Drm Exam Accn-[place] [id number] 09/21/2016 15:00 Drm Exam Addr-[place] See Comment 09/21/2016 15:00 Drm Exam Impr-[place] See Comment 09/21/2016 15:00 Drm Exam Mtrl-[place] See Comment 09/21/2016 15:00 Drm Exam Refer-[place] See Comment 09/21/2016 15:00 Drm Exam Sign-[place] See Comment 09/21/2016 15:00 Drm Exam Site-[place] See Comment [facility] Document Id: [id number] documented in this encounter Plan of Treatment [...] Time Signature HXLvl IV Surg Performed POWERCHART [facility] Comment: Test Performed by: [address] [address] Specimen Anatomical Collection Method Collection Time Receive d Time (Source) Location / / Volume Laterality Tissue 09/21/2016 3:00 PM 7 CDT 12:27 PM CDT Historical Provider [facility] Performing Organization Address City/State/ZIP Code Phon e Number POWERCHART PATHOLOGY DERMPATH CONSULT, WET TISSUE (09/21/2016 3:00 PM CDT) [facility] Method Time Signature HXDrm Exam [id number] POWERCHART [facility] HXDrm Exam See Comment POWERCHART [facility]-[place] Comment: RESULT: Jennifer Smith M.D. HXDrm Exam [facility] See Comment POWERCH ART Comment: [address] [address] HXDrm Exam [facility] See Comment POWERCH ART Comment: RESULT: A. DermPath Consultatio n, Wet Tissue; right lateral periorbital: HXDrm Exam [facility]-[place] See Comment POWERCH ART Comment: A. Received in formalin labeled with the patient's name and and lab eled as right lateral pariorbital is a 0.7 x 0.6 x 0.1 cm pal e dukes skin shave biopsy. There is a dark dukes slightly raised nodu le encompassing the entire skin surface. ??The specimen is bisected and submitted entirely in cassette A1. HXDrm Exam [facility] See Comment POWERCH ART Comment: A. ??DermPath Consultation, Wet Tissue; right lateral periorbital: Actinic keratosis with dermal hemorrhage and mixed dermal inflammation HXDrm Exam Sign-[place] See Comment POWERCH ART Comment: RESULT: 09/26/2016 12:22 ??Interpreted by : Neyda Priest M.D Report electronically signed by Neyda Priest M.D. Transcribed by: [email or web address] 09/26/2016 11:15:03 Test Performed by: [address] [address] Specimen (Source) Anatomical Collection Method Collection Time Re ceived Time Location / / Volume Laterality Tissue 09/21/2016 3:00 PM CDT Jennifer Smith M.D. LAB PATH DERM ORDERABLES Performing Organization Address City/State/ZIP Code Phon e Number POWERCHART documented in this encounter Visit Diagnoses Not on filedocumented in this encounter
--- OUTSIDE RECORDS SUMMARY | 2022-02-07 14:31 | XMS_ITS | Encounter Summary ---
:1960 Author Organization [facility] Address [address] [place] [address] Care Team Providers Name Role Phone Elsewhere, Pcp Primary Care Provider Unavailable Reason for Referral Outpatient (Routine) - Closed Specialty Diagnoses / Procedures Referred By Contact Refer red To Contact Preventive Medicine Diagnoses Injury Foot Initial Left Contusion Foot Initial Left Sandra Sanches M.D. [address] [address] Referral ID Status Reason Start Date Expiration Date Visits Requ ested Visits Authorized [id number] Closed 01/06/2020 01/05/2021 1 1 Reason for Visit Reason Comments Foot Injury Dias Equipment doi 12/01/19 Encounter Details Date Type Department Care Team Description 01/06/2020 Comprehensive Visit Department of Sandra Sanches Injury Foot Initial Left (Primary Dx); Occupational Medicine Adrian Bui Contusion Foot Initial Left in [place], [address] [place] [address] [place] [phone] Social History Tobacco Use Types [...] you attend buddhism or Patient refused 2021 pentecostalism services? 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 He has worked there [...] reviewed the patient. Discussed conservative treatment. Medications: Cmry-ahd-gbamymg medications as needed. Medication side effects reviewed, [...] Left documented in this encounter Care Teams Transplant Nurse Relationship Specialty Start Date End Date Elsewhere, Pcp PCP - General 06/07/19 documented as of this encounter
--- OUTSIDE RECORDS SUMMARY | 2022-02-07 14:31 | XMS_ITS | Encounter Summary ---
:1960 Author Organization [facility] Address [address] [place] [address] Care Team Providers Name Role Phone Elsewhere, Pcp Primary Care Provider Unavailable Reason for Referral Specialty Diagnoses / Procedures Referred By Contact Refer red To Contact Katey Laguna M.D. [facility] Region [address] [place] [phone] Referral ID Status Reason Start Date Expiration Date Visits Requ ested Visits Authorized PULLER Encounter Details Date Type Department Care Team Description 07/26/2020 Orders Only [facility] isadora Laguna M.[facility]. [address] [place] [phone] (Wo rk) Social History Tobacco [...] you attend taoist or Patient refused 2021 roman catholic services? [...] at Date Recorded Male 06/23/2021 7:46 PM LAST PULLER documented as of this encounter Plan of Treatment Scheduled Referrals Name Type Priority Associated Order Schedule Diagnoses Covid immunization Outpatient Referral Routine Ex pected: office visit Initial 021 (Approximate), Expires: 07/26/2021 documented as of this encounter Visit Diagnoses Not on filedocumented in this encounter Care Teams Roving Changer Relationship Specialty Start Date End Date Elsewhere, Pcp PCP - General 06/07/19 documented as of this encounter
--- OUTSIDE RECORDS SUMMARY | 2022-02-07 14:31 | XMS_ITS | Encounter Summary ---
:1960 Author Organization [facility] Address [address] [place] [address] Care Team Providers Name Role Phone Elsewhere, Pcp Primary Care Provider Unavailable Encounter Details Date Type Department Care Team Description 09/05/2020 Immunization Department of [facility] Luis Alberto De Jesus For COVID-19 Medicine, [place] Codie Bui. Vaccine Immunization Professional Building, [address] [place], [place] [address] [place] [address] [address] [address] [place] [address] [phone] Social History Tobacco Use Types Packs/Day Years [...] you attend restorationist or Patient refused 2021 christian services? Do [...] at Date Recorded Male 06/23/2021 7:46 PM HAIR BALER documented as of this encounter Plan of Treatment Not on filedocumented as of this encounter Visit Diagnoses Diagnosis Encounter For COVID-19 Vaccine Immunizat ion documented in this encounter Care Teams Job Estimator Relationship Specialty Start Date End Date Elsewhere, Pcp PCP - General 06/07/19 documented as of this encounter
--- OUTSIDE RECORDS SUMMARY | 2022-02-07 14:31 | XMS_ITS | Encounter Summary ---
:1960 Author Organization [facility] Address [address] [place] [address] Care Team Providers Name Role Phone Unavailable Primary Care Provider Unavailable Encounter Details Date Type Department Care Team Description 03/29/2014 Hospital Encounter [facility] Merari Dixon M.D. [address] [place], [place] [phone] (Wo rk) Social History [...] you attend quaker or Patient refused 2021 judaism services? 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 documented as of this encounter Last Filed Vital Signs Vital Sign Reading Time Taken Comments Blood Pressure 134/76 03/29/2014 3:24 PM DIESEL ENGINE ASSEMBLER Pulse 75 03/29/2014 3:24 PM DIESEL ENGINE ASSEMBLER Temperature - - Respiratory Rate 18 03/29/2014 3:24 PM DIESEL ENGINE ASSEMBLER Oxygen Saturation - - Inhaled Oxygen Concentration - - Weight - - Height 182 cm (5' 11.65) 03/29/2014 3:24 PM DIESEL ENGINE ASSEMBLER Body Mass Index - - documented in this encounter Medications at Time of Discharge Medication Sig Dispensed Refills Start Date End Date ASPIRIN ORAL Take 1 tablet by mouth daily. 0 01/1804/13/2021 documented as of this encounter Consult Notes Dk Mijares M.D. - 03/29/2014 3:18 PM CST [id number] HISTORY OF PRESENT ILLNESS Hussein is a [...] MIJARES MD On: 04/06/2014 03:30 PM Source: [facility] MHSDOLBEYNONRADSYS Document Id: [id number] EL ENGINE ASSEMBLER documented in this encounter Miscellaneous Notes Miscellaneous - Roma Lindo, R.N. - 03/29/2014 3:24 PM DIESEL ENGINE ASSEMBLER Adult Labeling Specialist Intake/History Adult Labeling Specialist Intake/History Entered On: 03/29/2014 15:29 DIESEL ENGINE ASSEMBLER Performed On: 03/29/2014 15:24 DIESEL ENGINE ASSEMBLER by ROMA LINDO sports commentator Chief Complaint : Left knee pain. He [...] inch(es)) ROMA LINDO RN - 03/29/2014 15:24 DIESEL ENGINE ASSEMBLER General Info Information Given By : Patient Preferred Communication Mode : Verbal Languages : Taiwanese Is Patient Female and 13-50 no hysterectomy : No ROMA LINDO RN - 03/29/2014 15:24 DIESEL ENGINE ASSEMBLER Subjective Pain Symptoms : Yes ROMA LINDO N - 03/29/2014 15:24 DIESEL ENGINE ASSEMBLER Pain Pain Assessment Grid Pain 1 Location : Knee Laterality : Left ROMA LINDO - 03/29/2014 15:24 DIESEL ENGINE ASSEMBLER Dependent Habits Tobacco Use/Currently Using : No Tobacco Use/Last 12 months : No Exposure to Tobacco Smoke : Care provider denies smoking in home Smoking Status : Former smoker ROMA LINDO - 03/29/2014 15:24 DIESEL ENGINE ASSEMBLER Tobacco Use Grid Type : Cigarettes Last Use : 1996 ROMA LINDO - 03/29/2014 15:24 DIESEL ENGINE ASSEMBLER Caffeine Use Grid Caffeine Use : None ROAM LINDO - 03/29/2014 15:24 DIESEL ENGINE ASSEMBLER Recreational Drug Use Grid Drug Use : None ROMA LINDO - 03/29/2014 15:24 DIESEL ENGINE ASSEMBLER ID Screen Drug Resistant Organism : No Travel Within Last 21 Days : No ROMA LINDO - 03/29/2014 15:24 DIESEL ENGINE ASSEMBLER Source: [facility] Document Id: [id number] DIESEL ENGINE ASSEMBLER!42 EL ENGINE ASSEMBLER documented in this encounter Plan of Treatment Not on filedocumented as of this encounter Visit Diagnoses Not on filedocumented in this encounter
--- OUTSIDE RECORDS SUMMARY | 2022-02-07 14:31 | XMS_ITS | Encounter Summary ---
:1960 Author Organization [facility] Address [address] [place] [address] Care Team Providers Name Role Phone Beth Valderrama P.A.-C. Primary Care Provider Encounter Details Date Type Department Care Team Description 02/25/2018 Orders Only Department of Family Beth Valderrama C ardiac Vascular Disease Screening (Primary Dx); Medicine, Yuki Garcia P.A.-C. Screening Examination [facility]itus [facility], [address] [place] [address] [address] [address] [place], [place] [phone] (Work) [phone] Social History Tobacco Use Types Packs/Day Years [...] you attend jew or Patient refused 2021 protestant services? 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 PCP - General Family Medicine 09/15/17 06/06/19 documented as of this encounter
--- OUTSIDE RECORDS SUMMARY | 2022-02-07 14:31 | XMS_ITS | Encounter Summary ---
:1960 Author Organization [facility] Address [address] [place] [address] Care Team Providers Name Role Phone Beth Valderarma P.A.-C. Primary Care Provider Encounter Details Date Type Department Care Team Description 04/26/2019 Clinical Department of David, Clara, Communication [facility] [address] [place], [place] [phone] Social History Tobacco Use Types Packs/Day Years [...] you attend confucianism or Patient refused 2021 mormonism services? 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 Left details in note line off appointment order ORARY DATA ENTRY CLERK Telephone Encounter - Vero Tee - 04/26/2019 4:18 PM CST Reason for Communication: Follow up appointment Current Can Nursing/Provider leave a detailed message: Did the patient refuse triage through Nurse line? (for symptom based concerns): NA Action Needed: Patient called to cancel his appointment with Clara on 04/27. He said Clara told him he was in [place] on Tuesdays so that is why he scheduled for Friday. He will be unable to make it to that appointment. He was offered other times for [facility] but stated he could not make thosework. He leaves for [place] on 05/04, so the openings in [employer] on 05/06 will not work for him. He returns 05/15 and there were no appointments in [place] after the until 05/[address] Renee in [employer]. He would like Clara to know that this is why he cancelled his appointment and wants to know what she would recommend he does for follow up. I did not schedule the follow up appoint ment initially, so I am unsure of the details of that conversation and if it was made clear to him or not that the appointment would be for Ros[place]. Name of Medication (if relevant): ORARY DATA ENTRY CLERK documented in this encounter Plan of Treatment Not on filedocumented as of this encounter Visit Diagnoses Not on filedocumented in this encounter Care Teams Steward Racetrack Relationship Specialty Start Date End Date Beth Valderrama P.A.-C. PCP - General Family Medicine 09/15/17 06/06/19 documented as of this encounter
--- OUTSIDE RECORDS SUMMARY | 2022-02-07 14:32 | XMS_ITS | Encounter Summary ---
:1960 Author Organization [facility] Address [address] [place] [address] Care Team Providers Name Role Phone Unavailable Primary Care Provider Unavailable Encounter Details Date Type Department Care Team Description 04/27/2013 Hospital Encounter HX NO MAPPING Noe Mijares M.D. [address] [place], [place] [phone] (Wo rk) Social History [...] you attend denominational or Patient refused 2021 jain services? Do you belong to any clubs or No 12/20/2021 organizations such as denominational groups, unions, fraternal or athletic groups, or [...] at Date Recorded Male 06/23/2021 7:46 PM AMMONIUM SULFATE OPERATOR documented as of this encounter Last Filed Vital Signs Vital Sign Reading Time Taken Comments Blood Pressure 122/78 04/27/2013 2:04 PM AMMONIUM SULFATE OPERATOR Pulse 75 04/27/2013 2:04 PM AMMONIUM SULFATE OPERATOR Temperature - - Respiratory Rate - - [...] Mijares M.D. - 04/27/2013 1:59 PM CST [id number] HISTORY OF PRESENT ILLNESS Pilo is a [...] and valgus stress. Jerrod's negative. Anterior and chemotherapist drawer is negative. He does have a [...] MIJARES MD On: 05/04/2013 09:25 AM Source: [facility] MHSDOLBEYNONRADSYS Document Id: [id number] NIUM SULFATE OPERATOR documented in this encounter Miscellaneous Notes Miscellaneous - Dk Mijares M.D. - 04/27/2013 4:34 PM CST Ambulatory Patient Summary [address] [place] [address] Visit Information Name: PILO HERNANDEZ [facility] Number: [id number] Current Date: 04/27/2013 16:34:57 Physicians [...] appointment detail needed. Your Goals/Additional instructions: Source: [employer] Document Id: [id number] NIUM SULFATE OPERATOR Miscellaneous - Dk Mijares M.D. - 04/27/2013 4:34 PM CST Ambulatory Depart Summary [facility] [address] [address] Visit Information Name: PILO HERNANDEZ [facility] Number: [id number] Visit Date: 04/27/2013 16:34:56 Attending [...] in case of emergency. Additional Information: Source: [employer] Document Id: [id number] NIUM SULFATE OPERATOR Miscellaneous - Roxy Shea R.N. - 04/27/2013 2:04 PM CST Adult Apprentice Stylist Intake/History Adult Apprentice Stylist Intake/History Entered On: 04/27/2013 14:06 AMMONIUM SULFATE OPERATOR Performed On: 04/27/2013 14:04 AMMONIUM SULFATE OPERATOR by ROXY SHEA breeding manager Chief Complaint : left knee pain, since [...] % ROXY SHEA RN - 04/27/2013 14:04 AMMONIUM SULFATE OPERATOR General Info Information Given By : Patient Preferred Communication Mode : Verbal Languages : Mongolian ROXY SHEA RN - 04/27/2013 14:04 AMMONIUM SULFATE OPERATOR Subjective Pain Symptoms : Yes ROXY SHEA RN - 04/27/2013 14:04 AMMONIUM SULFATE OPERATOR Pain Pain Assessment Grid Pain 1 Location : Knee Laterality : Left ROYX SHEA RN - 04/27/2013 14:04 AMMONIUM SULFATE OPERATOR Dependent Habits Tobacco Use/Currently Using : No Exposure to Tobacco Smoke : Care provider denies smoking in home Smoking Status : Former smoker ROXY SHEA RN - 04/27/2013 14:04 AMMONIUM SULFATE OPERATOR Tobacco Use Grid Type : Cigarettes Last Use : 1996 ROXY SHEA RN - 04/27/2013 14:04 AMMONIUM SULFATE OPERATOR Caffeine Use Grid Caffeine Use : None ROXY SHEA RN - 04/27/2013 14:04 AMMONIUM SULFATE OPERATOR Recreational Drug Use Grid Drug Use : None ROXY SHEA RN - 04/27/2013 14:04 AMMONIUM SULFATE OPERATOR Source: [facility] POWERCHART Document Id: [id number] AMMONIUM SULFATE OPERATOR!37 NIUM SULFATE OPERATOR documented in this encounter Plan of Treatment Not on filedocumented as of this encounter Visit Diagnoses Not on filedocumented in this encounter
--- OUTSIDE RECORDS SUMMARY | 2022-02-07 14:32 | XMS_ITS | Encounter Summary ---
:1960 Author Organization [facility] Address [address] [place] [address] Care Team Providers Name Role Phone Unavailable Primary Care Provider Unavailable Encounter Details Date Type Department Care Team Description 06/18/2013 Hospital Encounter HX NO MAPPING Noe Mijares M.D. [address] [place], [place] [phone] (Wo rk) Social History [...] you attend hoahaoism or Patient refused 2021 congregation services? Do you belong to any clubs or No 12/20/2021 organizations such as hoahaoism groups, unions, fraternal or athletic groups, or [...] at Date Recorded Male 06/23/2021 7:46 PM MICROBIOLOGICAL LAB TECHNICIAN documented as of this encounter Last Filed Vital Signs Vital Sign Reading Time Taken Comments Blood Pressure 126/82 06/18/2013 9:06 AM MICROBIOLOGICAL LAB TECHNICIAN Pulse 80 06/18/2013 9:06 AM MICROBIOLOGICAL LAB TECHNICIAN Temperature - - Respiratory Rate 16 06/18/2013 9:06 AM MICROBIOLOGICAL LAB TECHNICIAN Oxygen Saturation - - Inhaled Oxygen Concentration - - Weight - - Height - - Body Mass Index - - documented in this encounter Medications at Time of Discharge Medication Sig Dispensed Refills Start Date End Date ASPIRIN ORAL Take 1 tablet by mouth daily. 0 01/1804/13/2021 documented as of this encounter Consult Notes Dk Mijares M.D. - 06/18/2013 9:02 AM CST [id number] HISTORY OF PRESENT ILLNESS Pilo is a [...] MIJARES MD On: 06/29/2013 01:50 PM Source: [facility] MHSDOLBEYNRANDYS Document Id: [id number] OBIOLOGICAL LAB TECHNICIAN documented in this encounter Miscellaneous Notes Miscellaneous - Dk Mijares M.D. - 06/18/2013 12:19 PM CST Ambulatory Patient Summary [id number] [place] [address] Visit Information Name: PILO HERNANDEZ [facility] Number: [id number] Current Date: 06/18/2013 12:19:25 [...] appointment detail needed. Your Goals/Additional instructions: Source: [facility] POWERCHART Document Id: [id number] OBIOLOGICAL LAB TECHNICIAN Miscellaneous - Dk Mijares M.D. - 06/18/2013 12:19 PM CST Ambulatory Depart Summary [facility] [address] [place] [address] Visit Information Name: PILO HERNANDEZ [facility] Number: [id number] Visit Date: 06/18/2013 12:19:24 [...] in case of emergency. Additional Information: Source: [facility] POWERCHART Document Id: [id number] OBIOLOGICAL LAB TECHNICIAN Miscellaneous - Roxy Shea, R.N. - 06/18/2013 9:06 AM CST Adult Photogrammetry Airplane Pilot Intake/History Adult Photogrammetry Airplane Pilot Intake/History Entered On: 06/18/2013 9:09 MICROBIOLOGICAL LAB TECHNICIAN Performed On: 06/18/2013 9:06 MICROBIOLOGICAL LAB TECHNICIAN by ROXY SHEA riding double Chief Complaint : f/u left knee pain and swelling which is getting worse, MRI results, HX knee [id number] Temperature Core : 36.6 DegC(Converted to: 97.9 DegF) Peripheral Pulse Rate : 80 /min Respiratory Rate : 16 /min Heart Rhythm : Regular Systolic Blood Pressure : 126 mmHg Diastolic Blood Pressure : 82 mmHg NIBP Mean : 97 mmHg BP Location : Right upper extremity Blood Pressure Cuff Size : Large SpO2 : 98 % ROXY SHEA RN - 06/18/2013 9:06 MICROBIOLOGICAL LAB TECHNICIAN General Info Information Given By : Patient Preferred Communication Mode : Verbal Languages : Kyrgyz ROXY SHEA RN - 06/18/2013 9:06 MICROBIOLOGICAL LAB TECHNICIAN Subjective Pain Symptoms : Yes ROXY SHEA RN - 06/18/2013 9:06 MICROBIOLOGICAL LAB TECHNICIAN Pain Pain Assessment Grid Pain 1 Location : Knee Laterality : Left ROXY SHEA RN - 06/18/2013 9:06 MICROBIOLOGICAL LAB TECHNICIAN Dependent Habits Tobacco Use/Currently Using : No Exposure to Tobacco Smoke : Care provider denies smoking in home Smoking Status : Former smoker ROXY SHEA RN - 06/18/2013 9:06 MICROBIOLOGICAL LAB TECHNICIAN Tobacco Use Grid Type : Cigarettes Last Use : 1996 ROXY SHEA RN - 06/18/2013 9:06 MICROBIOLOGICAL LAB TECHNICIAN Caffeine Use Grid Caffeine Use : None ROXY SHEA RN - 06/18/2013 9:06 MICROBIOLOGICAL LAB TECHNICIAN Recreational Drug Use Grid Drug Use : None ROXY SHEA RN - 06/18/2013 9:06 MICROBIOLOGICAL LAB TECHNICIAN Source: [facility] POWERCHART Document Id: [id number] MICROBIOLOGICAL LAB TECHNICIAN!38 OBIOLOGICAL LAB TECHNICIAN documented in this encounter Plan of Treatment Not on filedocumented as of this encounter Visit Diagnoses Not on filedocumented in this encounter
--- OUTSIDE RECORDS SUMMARY | 2022-02-07 14:32 | XMS_ITS | Encounter Summary ---
:1960 Author Organization [facility] Address [address] [place] [address] Care Team Providers Name Role Phone Unavailable [...] or relatives? How often do you attend baptist or Patient refused 2021 rastafari services? Do you belong to any clubs or No 12/20/2021 organizations such as baptist groups, unions, fraternal or athletic groups, or [...] at Date Recorded Male 06/23/2021 7:46 PM HIGH ENERGY FORMING EQUIPMENT OPERATOR documented as of this encounter Last [...] Matt Tong - 09/07/2013 3:26 PM CDT [id number] Mr. Hernandez is a pleasant 52-year-old gentleman [...] TONG PA-C On: 09/16/2013 03:34 PM Source: [facility] MHSDOLBEYNONRADSYS Document Id: [id number] documented in this encounter Miscellaneous Notes Miscellaneous - Matt Tong - 09/07/2013 3:56 PM CDT Ambulatory Patient Summary [facility] [address] [facility] [place], [place] [id number] Visit Information Name: PILO HERNANDEZ [facility] Number: [id number] Current Date: 09/07/2013 15:56:22 Physicians [...] Date Time Location Reason Provider 09/14/2013 15:15 [facility] 2 Matt Tong PA-C 09/18/2013 12:00 [facility] Family Med Rash on face Jamarcus Gordillo MD 09/21/2013 15:15 [facility] Synvisc 3 Matt Tong PA-C Attention: Contact your local Clinic if further appointment detail needed. Your Goals/Additional instructions: Source: [facility] POWERCHART Document Id: [id number] Miscellaneous - Matt Tong - 09/07/2013 3:56 PM CDT Ambulatory Discharge Medication List [id number] [place], [place] [phone] Visit Information Name: MARY PILO NOWAK [facility] Number: [id number] Visit Date: 09/07/2013 15:56:21 Attending [...] PA-C Signed On:07-SEP-2013 15:56:20 Additional Information: Source: [facility] POWERCHART Document Id: [id number] Miscellaneous - Roxy Olguin R.N. - 09/07/2013 3:34 PM CDT Adult Metallography Teacher Intake/History Adult Metallography Teacher Intake/History Entered On: 09/07/2013 15:37 CDT Performed On: 09/07/2013 15:34 CDT by ROXY OLGUIN louver door assembler Chief Complaint : f/u left knee pain, [...] Preferred Communication Mode : Verbal Languages : Sao Tomean ROXY OLGUIN RN - 09/07/2013 15:34 CDT [...] OLGUIN RN - 09/07/2013 15:34 CDT Source: [employer] Document Id: [id number] CDT!35 documented in this encounter Plan of Treatment Not on filedocumented as of this encounter Visit Diagnoses Not on filedocumented in this encounter
--- OUTSIDE RECORDS SUMMARY | 2022-02-07 14:32 | XMS_ITS | Encounter Summary ---
:1960 Author Organization [facility] Address [address] [place] [address] Care Team Providers Name Role Phone Unavailable [...] you attend nondenominational or Patient refused 2021 zoroastrianism services? Do [...] at Date Recorded Male 06/23/2021 7:46 PM MUCK OPERATOR documented as of this encounter Last [...] Matt Tong - 09/21/2013 3:16 PM CDT [id number] Mr. Hernandez is a pleasant 52-year-old gentleman [...] TONG PA-C On: 09/29/2013 03:30 PM Source: [facility] MHSDOLBEYNONRADSYS Document Id: [id number] documented in this encounter Miscellaneous Notes Miscellaneous - Matt Tong - 09/21/2013 3:40 PM CDT Ambulatory Patient Summary [address] [place], [place] [phone] Visit Information Name: PILO HERNANDEZ [facility] Number: [id number] Current Date: 09/21/2013 15:40:38 Physicians [...] appointment detail needed. Your Goals/Additional instructions: Source: [facility] POWERCHART Document Id: [id number] Miscellaneous - Matt Tong - 09/21/2013 3:40 PM CDT Ambulatory Discharge Medication List [facility] [address] [facility] [place], [place] [phone] Visit Information Name: PILO HERNANDEZ [facility] Number: [id number] Visit Date: 09/21/2013 15:40:37 Attending [...] PA-C Signed On:21-SEP-2013 15:40:32 Additional Information: Source: [facility] POWERCHART Document Id: [id number] Miscellaneous - Roxy Olguin R.N. - 09/21/2013 3:21 PM CDT Adult Scanning Manager Intake/History Adult Scanning Manager Intake/History Entered On: 09/21/2013 15:24 CDT Performed On: 09/21/2013 15:21 CDT by ROXY OLGUIN car hop Chief Complaint : f/u left knee pain, [...] Preferred Communication Mode : Verbal Languages : Zambian ROXY OLGUIN RN - 09/21/2013 15:21 CDT [...] OLGUIN RN - 09/21/2013 15:21 CDT [facility] Document Id: [id number] CDT!38 documented in this encounter Plan of Treatment Not on filedocumented as of this encounter Visit Diagnoses Not on filedocumented in this encounter
--- OUTSIDE RECORDS SUMMARY | 2022-02-07 14:32 | XMS_ITS | Encounter Summary ---
:1960 Author Organization [facility] Address [address] [place] [address] Care Team Providers Name Role Phone Unavailable Primary Care Provider Unavailable Encounter Details Date Type Department Care Team Description 09/18/2013 Hospital Encounter HX [facility] Zohaib Montes M.D. [address] [facility], [address] [place], [place] [address] (Wo rk) Social History [...] you attend sabianism or Patient refused 2021 rastafarian services? Do [...] at Date Recorded Male 06/23/2021 7:46 PM MDM SR documented as of this encounter Medications at Time of Discharge Medication Sig Dispensed Refills Start Date End Date ASPIRIN ORAL Take 1 tablet by mouth daily. 0 01/1804/13/2021 documented as of this encounter Progress Notes Carlo Carey M.D. - 09/18/2013 11:52 AM CDT [id number] CHIEF COMPLAINT/REASON FOR VISIT Scaling rash on [...] CAREY MD On: 02/16/2014 11:42 PM Source: [facility] MHSDOLBEYNONRADSYS Document Id: [id number] documented in this encounter Nursing Notes Frances Ring L.P.NFarshad - 03/29/2014 11:26 AM CST flu shot no contraindications flu shot given by AM, RN documentend by CHU dudley Electronically Signed By: FRANCES RING LPN On: 04/01/2014 11:26 AM Source: [facility] POWERCHART Document Id: [id number] SR Christian Oconnor L.P.N. - 09/18/2013 11:58 AM [...] Cigarettes Last Use : 1996 CHRISTIAN OCONNOR LPN - 09/18/2013 11:58 CDT Alcohol Use : No CHRISTIAN OCONNOR LPN - 09/18/2013 11:58 CDT Caffeine Use Grid Caffeine Use : None CHRISTIAN OCONNOR LPN - 09/18/2013 11:58 CDT Recreational Drug Use Grid Drug Use : None CHRISTIAN OCONNOR LPN - 09/18/2013 11:58 CDT [facility] Document Id: [id number] CDT!31 documented in this encounter Plan of Treatment Not on filedocumented as of this encounter Visit Diagnoses Not on filedocumented in this encounter
--- OUTSIDE RECORDS SUMMARY | 2022-02-07 14:32 | XMS_ITS | Encounter Summary ---
:1960 Author Organization [facility] Address [address] [place] [address] Care Team Providers Name Role Phone Unavailable Primary Care Provider Unavailable Encounter Details Date Type Department Care Team Description 06/01/2013 Hospital Encounter HX NO MAPPING Noe Mijares M.D. [address] [place], [place] [phone] (Wo rk) Social History [...] you attend latter-day or Patient refused 2021 orthodox services? 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 0 01/1804/13/2021 documented as of this encounter Consult Notes Dk Mijares M.D. - 06/01/2013 2:08 PM CST [id number] HISTORY Pilo is a 52-year-old man who is in [...] tenderness along the medial joint line. IMPRESSION/REPORT/PLAN Pilo is a 52-year-old man who has persistent [...] MIJARES MD On: 06/29/2013 01:51 PM Source: [facility] MHSDOLBEYNONRADSYS Document Id: [id number] OR INTERIOR DESIGNER documented in this encounter Miscellaneous Notes Miscellaneous - Dk Mijares M.D. - 06/01/2013 4:06 PM CST Ambulatory Patient Summary [address] [address] Visit Information Name: PILO HERNANDEZ [facility] Number: [id number] Current Date: 06/01/2013 16:06:53 [...] appointment detail needed. Your Goals/Additional instructions: Source: [facility] POWERCHART Document Id: [id number] ALUISA Hurst - Dk Mijares M.D. - 06/01/2013 4:06 PM CST Ambulatory Depart Summary [facility] [address] [address] Visit Information Name: MARYPILO [facility] Number: [id number] Visit Date: 06/01/2013 16:06:52 [...] in case of emergency. Additional Information: Source: [facility] [employer] Document Id: [id number] OR INTERIOR DESIGNER Miscellaneous - Roxy Shea R.N. 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/History Entered On: 06/01/2013 14:15 SENIOR INTERIOR DESIGNER Performed On: 06/01/2013 14:13 SENIOR INTERIOR DESIGNER by ROXY SHEA sales consulting director Chief Complaint : f/u left knee pain, [...] % ROXY SHEA RN - 06/01/2013 14:13 SENIOR INTERIOR DESIGNER General Info Information Given By : Patient Preferred Communication Mode : Verbal Languages : Turkish ROXY SHEA RN - 06/01/2013 14:13 SENIOR INTERIOR DESIGNER Subjective Pain Symptoms : Yes ROXY SHEA RN - 06/01/2013 14:13 SENIOR INTERIOR DESIGNER Pain Pain Assessment Grid Pain 1 Location : Knee Laterality : Left ROXY SHEA RN - 06/01/2013 14:13 SENIOR INTERIOR DESIGNER Dependent Habits Tobacco Use/Currently Using : No Exposure to Tobacco Smoke : Care provider denies smoking in home Smoking Status : Former smoker ROYX SHEA RN - 06/01/2013 14:13 SENIOR INTERIOR DESIGNER Tobacco Use Grid Type : Cigarettes Last Use : 1996 ORXY SHEA RN - 06/01/2013 14:13 SENIOR INTERIOR DESIGNER Caffeine Use Grid Caffeine Use : None ROXY SHEA RN - 06/01/2013 14:13 SENIOR INTERIOR DESIGNER Recreational Drug Use Grid Drug Use : None ROXY SHEA RN - 06/01/2013 14:13 SENIOR INTERIOR DESIGNER Source: [facility] POWERCHART Document Id: [id number] SENIOR INTERIOR DESIGNER!38 OR INTERIOR DESIGNER documented in this encounter Plan of Treatment Not on filedocumented as of this encounter Visit Diagnoses Not on filedocumented in this encounter
--- OUTSIDE RECORDS SUMMARY | 2022-02-07 14:32 | XMS_ITS | Encounter Summary ---
:1960 Author Organization [facility] Address [address] [place] [address] Care Team Providers Name Role Phone Unavailable Primary Care Provider Unavailable Encounter Details Date Type Department Care Team Description 02/12/2013 Hospital Encounter HX [facility] Mikey Smith III, M.D. [address] [place] [phone] (Wo rk) Social [...] you attend druze or Patient refused 2021 pentecostal services? 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 - 02/12/2013 3:04 PM CDT [id number] CHIEF COMPLAINT/REASON FOR VISIT Routine DOT. HISTORY OF PRESENT ILLNESS Mr. Hernandez is a 52-year-old white male with no significant past medical history. 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 He is cleared for 2 years without restrictions. Planned follow-up at that time for reevaluation. IMPRESSION/REPORT/PLAN Routine DOT exam. His questions were answered and reassurance was given. Harvinder Stuart M.D./[facility] Electronically Signed By: HARVINDER STUART III, MD On: 02/22/2013 09:08 PM Source: [facility] MHSDOLBEFRANCES Document Id: [id number] documented in this encounter Miscellaneous Notes Miscellaneous - Harvinder Stuart M.D. - 02/12/2013 4:17 PM CDT Ambulatory Depart Summary [address] [address] Visit Information Name: PILO HERNANDEZ [facility] Number: [id number] Visit Date: 02/12/2013 16:17:26 Attending Provider: HARVINDER STUART III, MD Primary Care Provider: HARVINDER STUART III, [...] your provider for clarification. Additional Information: Source: [facility] POWERCHART Document Id: [id number] Miscellaneous - Harvinder Stuart M.D. - 02/12/2013 4:17 PM CDT Ambulatory Patient Summary [address] [address] Visit Information Name: PILO HERNANDEZ [facility] Number: [id number] Current Date: 02/12/2013 16:17:27 Physicians Attending Provider: HARVINDER STUART III, MD Primary Care Provider: HARVINDER STUART III, MD Your Medications Here is [...] No Appointments found Your Goals/Additional instructions: Source: [facility] POWERCHART Document Id: [id number] Miscellaneous - Ethel Eid L.P.N. 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 Bridge Saw Operator Intake/History Entered On: 02/12/2013 15:30 CDT Performed On: 02/12/2013 15:29 CDT by ETHEL EID LPN Intake Chief Complaint : here [...] 2.34 Body Mass Index : 32.63 kg/m2 ETHEL EID LPN - 02/12/2013 15:29 CDT General Info Information Given By : Patient Languages : Sudanese ETHEL EID LPN - 02/12/2013 15:29 CDT Subjective Pain Symptoms : No ETHEL EID LPN - 02/12/2013 15:29 CDT Dependent Habits Tobacco Use/Currently Using : No Exposure to Tobacco Smoke : Care provider denies smoking in home Smoking Status : Former smoker JUANITOHIPOLITO ETHEL Lua LPN - 02/12/2013 15:29 CDT Tobacco Use Grid Type : Cigarettes Last Use : 1996 ETHEL EID LPN - 02/12/2013 15:29 CDT Caffeine Use Grid Caffeine Use : None ETHEL EID LPN - 02/12/2013 15:29 CDT Recreational Drug Use Grid Drug Use : None ETHEL EID LPN - 02/12/2013 15:29 CDT Source: [facility] [employer] Document Id: [id number] CDT!36 Miscellaneous - Ethel Eid L.P.NFarshad - 02/12/2013 3:09 PM CDT Health Assessment Health Assessment Entered On: 02/12/2013 15:09 CDT Performed On: 02/12/2013 15:09 CDT by ETHEL EID LPN Health Assessment Complete Health Assessment Complete or Modified : Annual Health Assessment Annual Health Assessment Completed : Yes ETHEL EID LPN - 02/12/2013 15:09 CDT Nutrition Nutrition Risk Factors by History Adult : None JUANITOAZEBETHEL HUA LPN - 02/12/2013 15:09 CDT Functional Current Daily Living Assistance : ETHEL Guzman LPN - 02/12/2013 15:09 CDT Dependent Habits Tobacco Use/Currently Using : No Exposure to Tobacco Smoke : Care provider denies smoking in home Smoking Status : Former smoker JUANITOHIPOLITO ETHEL Lua LPN - 02/12/2013 15:09 CDT Tobacco Use Grid Type : Cigarettes Last Use : 1996 ETHEL EID LPN - 02/12/2013 15:09 CDT Caffeine Use Grid Caffeine Use : None ETHEL EID LPN - 02/12/2013 15:09 CDT Recreational Drug Use Grid Drug Use : None ETHEL EID LPN - 02/12/2013 15:09 CDT Psychosocial Domestic Abuse Concerns : None ETHEL EID LPN - 02/12/2013 15:09 CDT Advance Directive Advanced Directives : No ETHEL EID LPN - 02/12/2013 15:09 CDT Educ Needs Learning Style Preference Adult Grid Patient : Demonstration Family : None ETHEL EID Stoney AYALA - 02/12/2013 15:09 CDT Source: [facility] POWERCHART Document Id: [id number] CDT!30 documented in this encounter Plan of Treatment Not on filedocumented as of this encounter Procedures Procedure Name Priority Date/Time Associated Diagnosis Comme nts DIPSTICK, U Routine 02/12/2013 3:20 PM Results f or this CDT procedure are i n the results section . documented in this encounter Results Dipstick, Urine (02/12/2013 3:20 PM CDT) [facility] gist Method Time Signature HXUr Color Yellow Yellow POWERCHART Appearance Clear Clear POWERCHART Glucose Negative Negative POWERCHART HXBILIRUBIN Negative Negative POWERCHART Ketones, QL(U) Negative Negative POWERCHART Specific 1.025 1.000 - POWERCHART [place], POCT, U 1.030 pH, POCT, Urine 7.0 5.0 - 8.0 POWERCHART Protein, Ur, Dip Negative Negative POWERCHART Urobilinogen 0.2 POWERCHART HXNITRITE Negative Negative POWERCHART HXBLOOD 1+ Negative POWERCHART Leukocyte Negative Negative POWERCHART Esterase Source Clean Void POWERCHART Urine Specimen (Source) Anatomical Collection Method Collection Time Re ceived Time Location / / Volume Laterality Urine 02/12/2013 3:20 PM CDT Harvinder Stuart III, M.D. LAB URINE ORDERABLES Performing Organization Address City/State/ZIP Code Phon e Number POWERCHART documented in this encounter Visit Diagnoses Not on filedocumented in this encounter
--- OUTSIDE RECORDS SUMMARY | 2022-02-07 14:32 | XMS_ITS | Encounter Summary ---
:1960 Author Organization [facility] Address [address] [place] [address] Care Team Providers Name Role Phone Unavailable Primary Care Provider Unavailable Encounter Details Date Type Department Care Team Description 03/12/2013 Hospital Encounter HX [facility] Nieves Hunter AP RN, C.N.P., D.N.P. [address] [place], [place] [phone] (Wo rk) Social History [...] you attend voodoo or Patient refused 2021 scientologist services? 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 0 01/1804/13/2021 documented as of this encounter Plan of Treatment Not on filedocumented as of this encounter Visit Diagnoses Not on filedocumented in this encounter
--- OUTSIDE RECORDS SUMMARY | 2022-02-07 14:32 | XMS_ITS | Encounter Summary ---
:1960 Author Organization [facility] Address [address] [place] [address] Care Team Providers Name Role Phone Unavailable Primary Care Provider Unavailable Encounter Details Date Type Department Care Team Description 07/20/2013 Hospital Encounter HX [facility] SURGERY Last Mijares M.D. [address] [place] [address] (Wo rk) Social History Tobacco [...] you attend baptist or Patient refused 2021 jainism services? Do [...] at Date Recorded Male 06/23/2021 7:46 PM WELT SLASHER documented as of this encounter Last Filed Vital Signs Vital Sign Reading Time Taken Comments Blood Pressure 147/89 07/20/2013 1:58 PM WELT SLASHER Pulse 60 07/20/2013 1:58 PM WELT SLASHER Temperature - - Respiratory Rate 14 07/20/2013 1:58 PM WELT SLASHER Oxygen Saturation - - Inhaled Oxygen Concentration - - Weight - - Height 182 cm (5' 11.65) 07/20/2013 1:58 PM WELT SLASHER Body Mass Index - - documented in this encounter Discharge Summaries Dk Mijares M.D. - 07/20/2013 5:00 PM CST Hospital Discharge Instructions [address] [address] Patient Discharge Instructions Name: HUSSEIN WHITTAKER Current Date: 07/20/2013 17:00:48 : 1960 12:00 AM [facility] Number: [id number] Patient Address: [address] [place] [phone] Patient Primary Care Provider: Name: HARVINDER STUBBS III, MD Discharge Diagnosis: [facility] [place] would like to thank you for allowing us to assist you withyour healthcare needs. The following includes patient education materials and information regarding your injury/illness. Comment: HUSSEIN WHITTAKER has been given the following list of follow-up instructions, medication list,and patient education materials: Follow-up Instructions With: Address: When: MATT TONG [address] [place] [id number] Business (1) 08/06/2013 09:30:00 Comments: Medications Medication/Strength Dose Route Frequency Indications/Special Instructions/Comments/Notes HYDROcodone-acetaminophen (Lookout 5 mg-325 mg oral tablet) 2 tab(s) [...] Date Time Care Provider Signature Date Time 58207 After Knee Arthroscopy: Recovering from Surgery Your [...] waves to help heal injured tissue. ?? [facility] [place] [address]. All rights reserved. This information is not intended as a substitute for professional medical care. Always follow your healthcare professional's instructions. [address]34 After Knee Arthroscopy After surgery, your joint [...] Increasing pain in your calf muscle ?? [address] [address]. All rights reserved. This information is not intended as a substitute for professional medical care. Always follow your healthcare professional's instructions. [address]200 Discharge Instructions HOME CARE FOLLOWING KNEE ARTHROSCOPY [...] concern you, please call my office at [phone]. DISCHARGE INSTRUCTIONS: For 48 hours after receiving [...] OR CALL THE PATIENT ADVISORY NURSE AT [phone] OR EMERGENCY ROOM AT [phone], ext: [phone]. ext: surgical services [phone], med-surge [phone] Physician: [...] service we provide. Thank you for choosing [facility]. It was a pleasure to serve you. This document has images extracted. Please consider using [employer] for all your patient education needs. Source: [employer] ([employer]) Document Id: [id number] SLASHER Dk Mijares M.D. - 07/20/2013 5:00 PM CST Hospital Discharge Medication List [address] [address] Discharge Medication List Name: HUSSEIN WHITTAKER Current Date: 07/20/2013 17:00:47 : 1960 12:00 AM [facility] Number: [id number] Patient Address: [address] [place] [phone] Patient Primary Care Provider: Name: HARVINDER STUBBS III, MD Discharge Diagnosis: [facility] [place] would like to thank you for allowing us to assist you withyour healthcare needs. The following includes patient education materials and information regarding your injury/illness. Medications Medication/Strength Dose Route Frequency Indications/Special Instructions/Comments/Notes HYDROcodone-acetaminophen (Lookout 5 mg-325 mg oral tablet) 2 tab(s) [...] DK MIJARES MD Signed On:20-JUL-2013 17:00:45 Source: [employer] ([employer]) Document Id: [id number] SLASHER documented in this encounter Medications at Time of Discharge Medication Sig Dispensed Refills Start Date End Date ASPIRIN ORAL Take 1 tablet by mouth daily. 0 01/1804/13/2021 documented as of this encounter Procedure Notes Jelena Vance R.N. - 07/20/2013 10:46 AM CST Preprocedure Checklist Document Has Been Updated Preprocedure Checklist Entered On: 07/20/2013 10:54 WELT SLASHER Performed On: 07/20/2013 10:46 WELT SLASHER by JELENA VANCE RN Checklist Last Fluid Intake : 07/19/2013 22:00 WELT SLASHER Last Food Intake : 07/19/2013 22:00 WELT SLASHER JELENA VANCE RN - 07/20/2013 10:46 WELT SLASHER Surgery Prep Grid Contacts/Glasses Removed : NA Dentures Removed : NA Hairpins/Hairpiecies Removed : NA Hearing Aid Removed : NA Home Prep Complete : NA Jewelry/Piercing Removed : NA Makeup/Nail Ugandan Removed : NA Oral Hygiene : NA Preop Scrub AM of Surgery : Yes Preop Scrub Night Prior to Surgery : Yes Prosthesis Removed : NA Surgical Prep Verified : Yes Tampon Removed : NA Wearing Patient Gown : Yes Voided pressurised container filler to procedure : Yes JELENA VANCE RN - 07/20/2013 10:46 WELT SLASHER Surgical Preparation : N/A JELENA VANCE RN - 07/20/2013 10:46 WELT SLASHER Patient Rights Grid Blood Consent Signed : NA Surgical/Procedure Consent Signed : Yes JELENA VANCE RN - 07/20/2013 10:46 WELT SLASHER Family Location : [place] pressurised container filler JELENA VANCE RN - 07/20/2013 10:46 WELT SLASHER Checklist II Patient Safety Grid Allergy Band [...] NA JELENA VANCE RN - 07/20/2013 10:46 WELT SLASHER RN Who Verified Site : JELENA VANCE RN Physician Who Verified Site : DK MIJARES MD, GWYNNE A RN - 07/20/2013 10:46 WELT SLASHER BALDO Screening Known Obstructive Sleep Apnea : No - NOT diagnosed with BALDO JELENA VANCE RN - 07/20/2013 10:46 WELT SLASHER BALDO Assessment Do you have high blood [...] 10 JELENA VANCE RN - 07/20/2013 10:46 WELT SLASHER Valuables/Belongings Valuables/Belongings Grid Valuables at Bedside Clothes, Patient Valuables : Jacket, Pants, Shirt, Shoes JELENA VANCE RN - 07/20/2013 10:46 WELT SLASHER Room Orientation/Facility Policy Reviewed : Yes Home Medication Disposition : None brought in with patient JELENA VANCE RN - 07/20/2013 10:46 WELT SLASHER Education Preprocedure Education Grid Procedure Type : left knee arthroscopy Education Topics : Anesthesia/Sedation, Plan of care Individuals Taught : Patient Barriers to Learning : None evident Teaching Method : Explanation Teaching Evaluation : Verbalizes understanding JELENA VANCE RN - 07/20/2013 10:46 WELT SLASHER Preop Holding Mode of Arrival : Ambulatory Preoperative Orders Complete : Yes JELENA VANCE RN - 07/20/2013 10:46 WELT SLASHER Advance Directive Advanced Directives : No JELENA VANCE RN - 07/20/2013 10:46 WELT SLASHER Vital Signs Temperature Core : 37 DegC(Converted [...] lb JELENA VANCE RN - 07/20/2013 10:46 WELT SLASHER Allergy (As Of: 07/20/2013 10:54:49 WELT SLASHER) Allergies (Active) Nyquil Cold Medicine Estimated Onset Date: Unspecified ; Created By: PRAVEEN KAUFFMAN; Reaction Status:Active ; Category: Drug ; Substance: Nyquil Cold Medicine ; Type: Allergy ; Updated By: PRAVEEN KAUFFMAN; Reviewed Date: 06/18/2013 9:05 WELT SLASHER Preprocedural Pause Correct Patient Identity : Patient verbalizes self, Patient wristband ID, Patient verbalizes Correct Procedure Site and Side : left knee arthroscopy with partial medial meniscectomy Correct Procedure Site/Side Verified By : Patient/responsible constitution party, Nurse, MD Site Marking : Yes Pre-Procedure Pause Verbal Confirm. of : Procedure, Site, Side, Patient Position, Patient ID JELENA VANCE RN - 07/20/2013 10:46 WELT SLASHER Source: [facility] [employer] Document Id: [id number] WELT SLASHER!95 SLASHER documented in this encounter Nursing Notes Jelena Vance R.N. - 07/20/2013 10:56 AM CST Influenza Immunization Asmt Influenza Immunization Asmt Entered On: 07/20/2013 10:56 WELT SLASHER Performed On: 07/20/2013 10:56 WELT SLASHER by JELENA VANCE RN Influenza Protocol Influenza Vaccine Exclusions : Previously immunized this flu season JELENA VANCE RN - 07/20/2013 10:56 WELT SLASHER Source: [facility] POWERCHART Document Id: [id number] WELT SLASHER!3 SLASHER Jelena Vance R.N. - 07/20/2013 10:56 AM CST Pneumonia Immunization Assessment Pneumonia Immunization Assessment Entered On: 07/20/2013 10:57 WELT SLASHER Performed On: 07/20/2013 10:56 WELT SLASHER by JELENA VANCE RN Pneumonia Protocol Pneumococcal Vaccine Exclusions : Patient has none of the below exclusions Pneumococcal Vaccine Age Group : Age 5 to 64 Pneumococcal Criteria 5 to 64 : Patient has none of the below criteria, vaccine is not indicated Pneumococcal Vaccine Candidate : No - Patient does not meet the criteria JELENA VANCE RN - 07/20/2013 10:56 WELT SLASHER Source: [facility] Document Id: [id number] WELT SLASHER!6 SLASHER Jelena Vance R.N. - 07/20/2013 10:30 AM CST Day Surgery Admission History/Asmt Adult Document Has Been Updated Day Surgery Admission History/Asmt Adult Entered On: 07/20/2013 10:45 WELT SLASHER Performed On: 07/20/2013 10:30 WELT SLASHER by JELENA VANCE RN General Info Preferred Name : Ray Admitted From : Non-Health Care Facility Point of Origin Mode of Arrival : Ambulatory Accompanied By : Alone Chief Complaint : left knee scope Preferred Communication Mode : Verbal Information Given By : Patient Languages : Sudanese Have you received chemotherapy in last 48 hours? : No JELENA VANCE RN - 07/20/2013 10:30 WELT SLASHER Allergy (As Of: 07/20/2013 10:45:58 WELT SLASHER) Allergies (Active) Nyquil Cold Medicine Estimated Onset Date: Unspecified ; Created By: JAMARI, PRAVEEN M; Reaction Status:Active ; Category: Drug ; Substance: Nyquil Cold Medicine ; Type: Allergy ; Updated By: PRAVEEN KAUFFMAN; Reviewed Date: 06/18/2013 9:05 WELT SLASHER Anesth/Transfusion Anesthesia/Transfusions : Prior anesthesia JELENA VANCE RN - 07/20/2013 10:30 WELT SLASHER ID Screen Drug Resistant Organism : No JELENA VANCE RN - 07/20/2013 10:30 WELT SLASHER Nutrition Nutrition Risk Factors by History Adult : None Home Diet : Regular Feeding Ability : Complete independence Eating Difficulties : None Appetite : Excellent JELENA VANCE RN - 07/20/2013 10:30 WELT SLASHER Home Environment Current Daily Living Assistance : None Living Situation : Home independently Home Equipment : None Sensory Deficits : None Mobility Assistance Prior to Admission : Independent Current Home Treatments : None Professional Skilled Services : None Special Services and Community Resources : None JELENA VANCE RN - 07/20/2013 10:30 WELT SLASHER Dependent Habits Tobacco Use/Currently Using : No Exposure to Tobacco Smoke : Care provider denies smoking in home Smoking Status : Former smoker JELENA VANCE RN - 07/20/2013 10:30 WELT SLASHER Tobacco Use Grid Type : Cigarettes Last Use : 1996 JELENA VANCE RN - 07/20/2013 10:30 WELT SLASHER Caffeine Use Grid Caffeine Use : None JELENA VANCE RN - 07/20/2013 10:30 WELT SLASHER Recreational Drug Use Grid Drug Use : None JELENA VANCE RN - 07/20/2013 10:30 WELT SLASHER Psychosocial Adult Domestic Abuse Concerns : None Roman Catholic Preference : No qualifying data available. JELENA VANCE RN - 07/20/2013 10:30 WELT SLASHER Advance Directive Advanced Directives : No JELENA VANCE RN - 07/20/2013 10:30 WELT SLASHER Educ Needs Patient/Family Education Needs : Plan of care JELENA VANCE RN - 07/20/2013 10:30 WELT SLASHER Learning Style Preference Adult Grid Patient : Verbal explanation Family : None JELENA VANCE RN - 07/20/2013 10:30 WELT SLASHER Education Preprocedure Education Grid Procedure Type : left knee arthroscopy with partial medial meniscectomy Education Topics : Anesthesia/Sedation, Plan of care Individuals Taught : Patient Barriers to Learning : None evident Teaching Method : Explanation Teaching Evaluation : Verbalizes understanding JELENA VANCE RN - 07/20/2013 10:30 WELT SLASHER Outpatient Assessment Procedural Respiratory : Respirations unlabored, [...] distress JELENA VANCE RN - 07/20/2013 10:30 WELT SLASHER Psycho/Emotional Pain Symptoms : No Affect/Behavior : Calm, Cooperative, Appropriate JELENA VANCE RN - 07/20/2013 10:30 WELT SLASHER Peripheral IV Peripheral IV Assess/Intervention Grid Peripheral IV #1 IV Activity : Start Number of Attempts : 1 Date of Insertion : 07/20/2013 WELT SLASHER IV Site : Hand Laterality : Left Catheter Size : 20 Catheter Type : Protective Site Condition : No complications Drainage Description : None Infiltration Score : 0 Phlebitis Score : 0 Flow/ Patency : No complications JELENA VANCE RN - 07/20/2013 10:30 WELT SLASHER Carlos Sensory Perception Carlos : No impairment Moisture Carlos : Rarely moist Activity Carlos : Walks frequently Mobility Carlos : No limitations Nutrition Carlos : Excellent Friction and Shear Carlos : Potential problem Carlos Score : 22 JELENA VACNE RN - 07/20/2013 10:30 WELT SLASHER Hendrich II Fall Risk Confusion/Disorientation Hendrich : [...] 2 JELENA VANCE RN - 07/20/2013 10:30 WELT SLASHER DC Needs Anticipated Discharge Date : 07/20/2013 WELT SLASHER Discharge To, Anticipated : Home with family [facility] Treatments, Anticipated : None Home Equipment, Anticipated : None Professional Skilled Services, Anticipated : None Special Serv & Comm Res, Anticipated : None Needs Assistance with Transportation : No Needs Assistance at Home Upon Discharge : No JELENA VANCE RN - 07/20/2013 10:30 WELT SLASHER FLACC Face FLACC : No particular expression or smile Legs FLACC : Normal position or relaxed Activity FLACC : Lying quietly, normal position, moves easily Cry FLACC : No cry, awake or asleep Consolabillity FLACC : Content, relaxed FLACC Pain Scale Score : 0 JELENA VANCE RN - 07/20/2013 10:30 WELT SLASHER Urinary Catheter Urinary Catheter Activity Type : Other: none JELENA VANCE RN - 07/20/2013 10:30 WELT SLASHER Integumentary Integumentary Patient Stated Symptoms : None Skin Turgor : Elastic Skin Integrity : Intact Mucous Membrane Color : [place] Mucous Membrane Description : Moist Skin Color : Normal for ethnicity Skin Description : Dry Skin Temperature : Warm JELENA VANCE RN - 07/20/2013 10:30 WELT SLASHER Source: [employer] ([employer]) Document Id: [id number] WELT SLASHER!135 SLASHER documented in this encounter OR Notes Op Note - Dk Mijares M.D. - 07/20/2013 12:00 AM CST [id number] PREOPERATIVE DIAGNOSIS: Left knee medial meniscus tear [...] MIJARES MD On: 07/20/2013 01:19 PM Source: [facility] [email or web address] Document Id: [id number] SLASHER documented in this encounter Miscellaneous Notes Miscellaneous - Huseyin Daily, RFarshadN. - 07/20/2013 1:58 PM CST Adult Postprocedure Assessment Adult Postprocedure Assessment Entered On: 07/20/2013 13:58 WELT SLASHER Performed On: 07/20/2013 13:58 WELT SLASHER by HUSEYIN DAILY RN Vital Signs Temperature [...] inch(es)) HUSEYIN DAILY RN - 07/20/2013 13:49 WELT SLASHER General Level of Consciousness : Alert Orientation : Oriented x 3 Skin Color : Normal for ethnicity Skin Description : Dry Skin Temperature : Warm Pain Symptoms : No HUSEYIN DAILY RN - 07/20/2013 13:49 WELT SLASHER FLACC Face FLACC : No particular expression or smile Legs FLACC : Normal position or relaxed Activity FLACC : Lying quietly, normal position, moves easily Cry FLACC : No cry, awake or asleep Consolabillity FLACC : Content, relaxed FLACC Pain Scale Score : 0 HUSEYIN DAILY RN - 07/20/2013 13:49 WELT SLASHER Cardiovascular Heart Rhythm : Regular HUSEYIN DAILY RN - 07/20/2013 13:49 WELT SLASHER Respiratory Anesthesia Type : MAC, Spinal Respiratory Pattern : Regular Respirations : Unlabored All Lobes Breath Sounds : Clear HUSEYIN DAILY RN - 07/20/2013 13:49 WELT SLASHER GI/ Nausea Symptoms : No HUSEYIN DAILY RN - 07/20/2013 13:49 WELT SLASHER Integumentary Skin Color : Normal for ethnicity Skin Description : Dry Skin Temperature : Warm HUSEYIN DAILY RN - 07/20/2013 13:49 WELT SLASHER Incision/Wound Incision/Wound Care Grid Activity : Assessed Type : Other: arthroscopy Location : Knee Laterality : Left Description : Dry HUSEYIN DAILY RN - 07/20/2013 13:49 WELT SLASHER Peripheral IV Peripheral IV Assess/Intervention Grid Peripheral IV #1 IV Activity : Discontinue Number of Attempts : 1 Date of Insertion : 07/20/2013 WELT SLASHER IV Site : Hand Laterality : Left Catheter Size : 20 Catheter Type : Protective HUSEYIN DAILY 07/20/2013 13:49 WELT SLASHER Neurologic Swallowing Difficulty/Aspiration Risk : None Extremity Movement : Equal Facial Symmetry : Symmetric Characteristics of Speech : Appropriate for age HUSEYIN DAILY 07/20/2013 13:49 WELT SLASHER Neurological Strengths Grid Left Lower Extremity Right Lower Extremity Sensation : Intact Intact HUSEYIN DAILY 07/20/2013 13:49 WELT SLASHER HUSEYIN DAILY 07/20/2013 13:49 WELT SLASHER Lower Extremity Nail Bed Color Feet Grid Left Foot : [place] Right Foot : [place] HUSEYIN DAILY 07/20/2013 13:49 WELT SLASHER Capillary Refill Feet Grid Left Foot : < 2 seconds Right Foot : < 2 seconds HUSEYIN ADILY 07/20/2013 13:49 WELT SLASHER NV Lower Extremity Color Grid Left : [place] Right : [place] HUSEYIN DAILY 07/20/2013 13:49 WELT SLASHER NV Lower Extremity Temperature Grid Left : Warm Right : Warm HUSEYIN DAILY 07/20/2013 13:49 WELT SLASHER Lower Extremity Peripheral Pulses Grid Dorsalis Pedis Pulse, Left : 2+ Normal HUSEYIN DAILY 07/20/2013 13:49 WELT SLASHER Lower Extremity Sensation NV Grid Medial/Lateral Surfaces Sole of Left Foot : Decreased, Intact Medial/Lateral Surfaces Sole of Right Foot : Decreased, Intact Web Space Between Great and Second Toe Left Foot : Decreased, Intact Web Space Between Great and Second Toe Right Foot : Decreased, Intact HUSEYIN DAILY 07/20/2013 13:49 WELT SLASHER Lower Extremity Strength NV Grid Plantar Flexion Left Foot : Normal 5 Plantar Flexion Right Foot : Normal 5 Dorsiflex Foot/Extend Toes Left : Normal 5 Dorsiflex Foot/Extend Toes Right : Normal 5 HUSEYIN DAILY 07/20/2013 13:49 WELT SLASHER Activity Patient Position : Elevate head of bed 45 degrees Activity Status ADL : Up ad bob Activity Assistance : Independent HUSEYIN DAILY 07/20/2013 13:49 WELT SLASHER PARSAP Activity Status : Moves 4 extremities [...] 20 HUSEYIN DAILY RN - 07/20/2013 13:49 WELT SLASHER Duck[place] Duckworth Agitation Sedation Scale (RASS) : Alert and calm RASS Score : 0 HUSEYIN DAILY RN - 07/20/2013 13:49 WELT SLASHER Carlos Sensory Perception Carlos : No impairment Moisture Carlos : Rarely moist Activity Carlos : Walks frequently Mobility Carlos : No limitations Nutrition Carlos : Adequate Friction and Shear Carlos : No apparent problem Carlos Score : 22 HUSEYIN DAILY RN - 07/20/2013 13:49 WELT SLASHER Hendrich II Fall Risk Confusion/Disorientation Hendrich : [...] 2 HUSEYIN DAILY RN - 07/20/2013 13:49 WELT SLASHER Safe Patient Handling Safe Pt Handling Independent : Yes - No equipment needed Safe Pt Handling Equipment Rec : No Equipment Needed HUSEYIN DAILY RN - 07/20/2013 13:49 WELT SLASHER Education General Patient Education [employer] Topics : Printed materials Individuals Taught : Patient Barriers to Learning : None evident Teaching Method : Printed materials Teaching Evaluation : Verbalizes understanding HUSEYIN DAILY RN - 07/20/2013 13:49 WELT SLASHER Source: [facility] POWERCHART Document Id: [id number] WELT SLASHER!141 SLASHER Miscellaneous - Huseyin Daily R.N. - 07/20/2013 1:33 PM CST Adult Postprocedure Assessment Adult Postprocedure Assessment Entered On: 07/20/2013 13:40 WELT SLASHER Performed On: 07/20/2013 13:33 WELT SLASHER by HUSEYIN DAILY RN Vital Signs Temperature [...] ft 0 inch(es)) HUSEYIN DAILY 07/20/2013 13:33 WELT SLASHER General Level of Consciousness : Alert Orientation : Oriented x 3 Skin Color : Normal for ethnicity Skin Description : Dry Skin Temperature : Warm Pain Symptoms : No HUSEYIN DAILY 07/20/2013 13:33 WELT SLASHER FLACC Face FLACC : No particular expression or smile Legs FLACC : Normal position or relaxed Activity FLACC : Lying quietly, normal position, moves easily Cry FLACC : No cry, awake or asleep Consolabillity FLACC : Content, relaxed FLACC Pain Scale Score : 0 HUSEYIN DAILY 07/20/2013 13:33 WELT SLASHER Cardiovascular Heart Rhythm : Regular HUSEYIN DAILY 07/20/2013 13:33 WELT SLASHER Respiratory Anesthesia Type : MAC, Spinal Respiratory Pattern : Regular Respirations : Unlabored HUSEYIN DAILY 07/20/2013 13:33 WELT SLASHER GI/ Nausea Symptoms : No HUSEYIN DAILY 07/20/2013 13:33 WELT SLASHER Integumentary Skin Color : Normal for ethnicity Skin Description : Dry Skin Temperature : Warm HUSEYIN DAILY 07/20/2013 13:33 WELT SLASHER Incision/Wound Incision/Wound Care Grid Activity : Assessed Type : Other: arthroscopy Location : Knee Laterality : Left Description : Dry HUSEYIN DAILY 07/20/2013 13:33 WELT SLASHER Peripheral IV Peripheral IV Assess/Intervention Grid Peripheral IV #1 IV Activity : Discontinue Number of Attempts : 1 Date of Insertion : 07/20/2013 WELT SLASHER IV Site : Hand Laterality : Left Catheter Size : 20 Catheter Type : Protective Site Condition : No complications Drainage Description : None HUSEYIN DAILY 07/20/2013 13:33 WELT SLASHER I&O Oral Intake : 100 mL Other Intake : 100 mL (Comment: I.V. fluids [HUSEYIN DAILY 07/20/2013 13:33 WELT SLASHER] ) HUSEYIN DAILY 07/20/2013 13:33 WELT SLASHER Nutrition Lunch : 100 % HUSEYIN DAILY 07/20/2013 13:33 WELT SLASHER Neurologic Swallowing Difficulty/Aspiration Risk : None Extremity Movement : Equal Facial Symmetry : Symmetric Characteristics of Speech : Appropriate for age HUSEYIN DAILY 07/20/2013 13:33 WELT SLASHER Neurological Strengths Grid Left Lower Extremity Right Lower Extremity Sensation : Decreased Decreased HUSEYIN DAILY 07/20/2013 13:33 WELT SLASHER HUSEYIN DAILY 07/20/2013 13:33 WELT SLASHER Lower Extremity Nail Bed Color Feet Grid Left Foot : [place] Right Foot : [place] HUSEYIN DAILY 07/20/2013 13:33 WELT SLASHER Capillary Refill Feet Grid Left Foot : < 2 seconds Right Foot : < 2 seconds HUSEYIN DAILY 07/20/2013 13:33 WELT SLASHER NV Lower Extremity Color Grid Left : [place] Right : [place] HUSEYIN DAILY 07/20/2013 13:33 WELT SLASHER NV Lower Extremity Temperature Grid Left : Warm Right : Warm HUSEYIN DAILY 07/20/2013 13:33 WELT SLASHER Lower Extremity Peripheral Pulses Grid Dorsalis Pedis Pulse, Left : 2+ Normal HUSEYIN DAILY 07/20/2013 13:33 WELT SLASHER Lower Extremity Sensation NV Grid Medial/Lateral Surfaces Sole of Left Foot : Decreased Medial/Lateral Surfaces Sole of Right Foot : Decreased Web Space Between Great and Second Toe Left Foot : Decreased Web Space Between Great and Second Toe Right Foot : Decreased HUSEYIN DAILY 07/20/2013 13:33 WELT SLASHER Activity Patient Position : Elevate head of bed 45 degrees HUSEYIN DAILY 07/20/2013 13:33 WELT SLASHER PARSAP Activity Status : Moves 4 extremities [...] : Not assessed HUSEYIN DAILY 07/20/2013 13:33 WELT SLASHER Duckworth Duckworth Agitation Sedation Scale (RASS) : Alert and calm RASS Score : 0 HUSEYIN DAILY 07/20/2013 13:33 WELT SLASHER Carlos Sensory Perception Carlos : No impairment Moisture Carlos : Rarely moist Activity Carlos : Bedfast Mobility Carlos : Very limited Nutrition Carlos : Adequate Friction and Shear Carlos : No apparent problem Acrlos Score : 17 HUSEYIN DAILY RN - 07/20/2013 13:33 WELT SLASHER Hendrich II Fall Risk Confusion/Disorientation Hendrich : [...] 2 HUSEYIN DAILY RN - 07/20/2013 13:33 WELT SLASHER Safe Patient Handling Safe Pt Handling Independent : Yes - No equipment needed Safe Pt Handling Equipment Rec : No Equipment Needed HUSEYIN DAILY RN - 07/20/2013 13:33 WELT SLASHER Source: [employer] ([employer]) Document Id: [id number] WELT SLASHER!130 SLASHER Miscellaneous - Huseyin Daily R.N. - 07/20/2013 1:19 PM CST Adult Postprocedure Assessment Adult Postprocedure Assessment Entered On: 07/20/2013 13:26 WELT SLASHER Performed On: 07/20/2013 13:19 WELT SLASHER by HUSEYIN DAILY RN Vital Signs Temperature [...] inch(es)) HUSEYIN DAILY RN - 07/20/2013 13:19 WELT SLASHER General Level of Consciousness : Alert Orientation : Oriented x 3 Skin Color : Normal for ethnicity Skin Description : Dry Skin Temperature : Warm Pain Symptoms : No HUSEYIN DAILY RN - 07/20/2013 13:19 WELT SLASHER FLACC Face FLACC : No particular expression or smile Legs FLACC : Normal position or relaxed Activity FLACC : Lying quietly, normal position, moves easily Cry FLACC : No cry, awake or asleep Consolabillity FLACC : Content, relaxed FLACC Pain Scale Score : 0 HUSEYIN DAILY 07/20/2013 13:19 WELT SLASHER Cardiovascular Heart Rhythm : Regular Nail Bed Color : [place] HUSEYIN DAILY 07/20/2013 13:19 WELT SLASHER Respiratory Anesthesia Type : Spinal Respiratory Pattern : Regular Respirations : Unlabored HUSEYIN DAILY 07/20/2013 13:19 WELT SLASHER Incentive Spirometry Cough and Deep Breathe : Done HUSEYIN DAILY 07/20/2013 13:19 WELT SLASHER GI/ Nausea Symptoms : No HUSEYIN DAILY 07/20/2013 13:19 WELT SLASHER Integumentary Mucous Membrane Color : [place] Mucous Membrane Description : Moist Skin Color : Normal for ethnicity Skin Description : Dry Skin Temperature : Warm HUSEYIN DAILY 07/20/2013 13:19 WELT SLASHER Incision/Wound Incision/Wound Care Grid Activity : Assessed Type : Other: arthroscopy Location : Knee Laterality : Left Description : Dry HUSEYIN DAILY 07/20/2013 13:19 WELT SLASHER Peripheral IV Peripheral IV Assess/Intervention Grid Peripheral IV #1 IV Activity : Assessment Number of Attempts : 1 Date of Insertion : 07/20/2013 WELT SLASHER IV Site : Hand Laterality : Left Catheter Size : 20 Catheter Type : Protective Site Condition : No complications Drainage Description : None HUSEYIN DAILY 07/20/2013 13:19 WELT SLASHER I&O Oral Intake : 60 mL Other Intake : 100 mL (Comment: I.V. fluids [HUSEYIN DAILY 07/20/2013 13:19 WELT SLASHER] ) HUSEYIN DAILY 07/20/2013 13:19 WELT SLASHER Neurologic Swallowing Difficulty/Aspiration Risk : None Extremity Movement : Equal Facial Symmetry : Symmetric Characteristics of Speech : Appropriate for age HUSEYIN DAILY 07/20/2013 13:19 WELT SLASHER Neurological Strengths Grid Left Upper Extremity Right Upper Extremity Left Lower Extremity Right Lower Extremity Sensation : Intact Intact Decreased Decreased HUSEYIN DAILY 07/20/2013 13:19 WELT SLASHER HUSEYIN DAILY 07/20/2013 13:19 WELT SLASHER HUSEYIN DAILY 07/20/2013 13:19 WELT SLASHER HUSEYIN DAILY 07/20/2013 13:19 WELT SLASHER Lower Extremity Nail Bed Color Feet Grid Left Foot : [place] Right Foot : [place] HUSYEIN DAILY 07/20/2013 13:19 WELT SLASHER Capillary Refill Feet Grid Left Foot : < 2 seconds Right Foot : < 2 seconds HUSEYIN DAILY 07/20/2013 13:19 WELT SLASHER NV Lower Extremity Color Grid Left : [place] Right : [place] HUSEYIN DAILY 07/20/2013 13:19 WELT SLASHER NV Lower Extremity Temperature Grid Left : Warm Right : Warm HUSEYIN DAILY 07/20/2013 13:19 WELT SLASHER Lower Extremity Peripheral Pulses Grid Dorsalis Pedis Pulse, Left : 2+ Normal HUSEYIN DAILY 07/20/2013 13:19 WELT SLASHER Lower Extremity Sensation NV Grid Medial/Lateral Surfaces Sole of Left Foot : Decreased Medial/Lateral Surfaces Sole of Right Foot : Decreased Web Space Between Great and Second Toe Left Foot : Decreased Web Space Between Great and Second Toe Right Foot : Decreased HUSEYIN DAILY 07/20/2013 13:19 WELT SLASHER Activity Patient Position : Elevate head of bed 45 degrees HUSEYIN DAILY 07/20/2013 13:19 WELT SLASHER Modified Jessica Activity : Moves 4 extremities voluntarily or on command Respiratory : Able to deep breathe and cough freely Circulation : BP +/- 20% of preprocedural level or not unusually high or low Consciousness : Fully awake O2 Saturation : O2 SAT at preprocedural level Jessica l Score : 10 HUSEYIN DAILY 07/20/2013 13:19 WELT SLASHER PARSAP Dressing : Dry and clean Pain : Pain free Fasting and Feeding : Able to drink fluids Urine Output, PARSAP : Not assessed HUSEYIN DAILY 07/20/2013 13:19 WELT SLASHER Duckworth Duckworth Agitation Sedation Scale (RASS) : Alert and calm RASS Score : 0 HUSEYIN DAILY 07/20/2013 13:19 WELT SLASHER Carlos Sensory Perception Carlos : No impairment Moisture Carlos : Rarely moist Activity Carlos : Bedfast Mobility Carlos : Very limited Nutrition Carlos : Adequate Friction and Shear Carlos : No apparent problem Carlos Score : 17 HUSEYIN DAILY 07/20/2013 13:19 WELT SLASHER Hendrich II Fall Risk Confusion/Disorientation Hendrich : [...] Fall Risk Score Isaura II : 2 HUESYIN DAILY RN - 07/20/2013 13:19 WELT SLASHER Safe Patient Handling Safe Pt Handling Independent : Yes - No equipment needed Safe Pt Handling Equipment Rec : No Equipment Needed HUSEYIN DAILY RN - 07/20/2013 13:19 WELT SLASHER Education General Patient Education Powergrid Topics : Printed materials Individuals Taught : Patient Barriers to Learning : None evident Teaching Method : Explanation, Printed materials Teaching Evaluation : Verbalizes understanding HUSEYIN DAILY RN - 07/20/2013 13:19 WELT SLASHER [facility] InternationalCHART Document Id: [id number] WELT SLASHER!147 SLASHER Miscellaneous - Huseyin Daily R.N. - 07/20/2013 12:57 PM CST Adult Postprocedure Assessment Adult Postprocedure Assessment Entered On: 07/20/2013 13:05 WELT SLASHER Performed On: 07/20/2013 12:57 WELT SLASHER by HUSEYIN DAILY RN Vital Signs Temperature Core : 36.5 DegC(Converted to: 97.7 DegF) Peripheral Pulse Rate : 60 /min Respiratory Rate : 12 /min (LOW) BP Location : Right upper extremity SpO2 : 94 % Oxygen Saturation Monitoring Frequency : Continuous Oxygen Therapy : Room air Height : 182 cm(Converted to: 6 ft 0 inch(es)) HUSEYIN DAILY RN - 07/20/2013 12:57 WELT SLASHER General Level of Consciousness : Drowsy Orientation : Oriented x 3 Skin Color : Normal for ethnicity Skin Description : Dry Skin Temperature : Warm Pain Symptoms : No HUSEYIN DAILY RN - 07/20/2013 12:57 WELT SLASHER FLACC Face FLACC : No particular expression or smile Legs FLACC : Normal position or relaxed Activity FLACC : Lying quietly, normal position, moves easily Cry FLACC : No cry, awake or asleep Consolabillity FLACC : Content, relaxed FLACC Pain Scale Score : 0 HUSEYIN DAILY RN - 07/20/2013 12:57 WELT SLASHER Cardiovascular Heart Rhythm : Regular Nail Bed Color : [place] Capillary Refill : Less than 2 seconds HUSEYIN DAILY 07/20/2013 12:57 WELT SLASHER Pulses Grid Dorsalis Pedis Pulse, Left : 2+ Normal HUSEYIN DAILY 07/20/2013 12:57 WELT SLASHER Antiembolism Device : Sequential Compression Device Antiembolism Device Laterality : Right HUSEYIN DAILY 07/20/2013 12:57 WELT SLASHER Respiratory Anesthesia Type : Spinal Respiratory Pattern : Regular Respirations : Unlabored All Lobes Breath Sounds : Clear HUSEYIN DAILY 07/20/2013 12:57 WELT SLASHER Incentive Spirometry Cough and Deep Breathe : Done HUSEYIN DAILY 07/20/2013 12:57 WELT SLASHER GI/ Nausea Symptoms : No HUSEYIN DAILY 07/20/2013 12:57 WELT SLASHER Integumentary Skin Color : Normal for ethnicity Skin Description : Dry Skin Temperature : Warm HUSEYIN DAILY 07/20/2013 12:57 WELT SLASHER Incision/Wound Incision/Wound Care Grid Activity : Assessed Type : Other: arthroscopy Location : Knee Laterality : Left Description : Dry HUSEYIN DAILY 07/20/2013 12:57 WELT SLASHER Peripheral IV Peripheral IV Assess/Intervention Grid Peripheral IV #1 IV Activity : Assessment Number of Attempts : 1 Date of Insertion : 07/20/2013 WELT SLASHER IV Site : Hand Laterality : Left Catheter Size : 20 Catheter Type : Protective Site Condition : No complications Drainage Description : None HUSEYIN DAILY 07/20/2013 12:57 WELT SLASHER I&O Other Intake : 200 mL (Comment: I.V. fluids [HUSEYIN DAILY 07/20/2013 12:57 WELT SLASHER] ) HUSEYIN DAILY 07/20/2013 12:57 WELT SLASHER Neurologic Swallowing Difficulty/Aspiration Risk : None Extremity Movement : Equal Facial Symmetry : Symmetric Characteristics of Speech : Appropriate for age HUSEYIN DAILY 07/20/2013 12:57 WELT SLASHER Neurological Strengths Grid Left Upper Extremity Right Upper Extremity Sensation : Intact Intact HUSEYIN DAILY 07/20/2013 12:57 WELT SLASHER HUSEYIN DAILY 07/20/2013 12:57 WELT SLASHER Lower Extremity Nail Bed Color Feet Grid Left Foot : [place] Right Foot : [place] HUSEYIN DAILY 07/20/2013 12:57 WELT SLASHER Capillary Refill Feet Grid Left Foot : < 2 seconds Right Foot : < 2 seconds HUSEYIN DAILY 07/20/2013 12:57 WELT SLASHER NV Lower Extremity Color Grid Left : [place] Right : [place] HUSEYIN DAILY RN 07/20/2013 12:57 WELT SLASHER NV Lower Extremity Temperature Grid Left : Warm Right : Warm HUSEYIN DAILY RN 07/20/2013 12:57 WELT SLASHER Lower Extremity Sensation NV Grid Medial/Lateral Surfaces Sole of Left Foot : Absent Medial/Lateral Surfaces Sole of Right Foot : Absent Web Space Between Great and Second Toe Left Foot : Absent Web Space Between Great and Second Toe Right Foot : Absent HUSEYIN DAILY RN 07/20/2013 12:57 WELT SLASHER Activity Patient Position : Elevate head of bed 30 degrees HUSEYIN DAILY 07/20/2013 12:57 WELT SLASHER Modified Jessica Activity : Moves 4 extremities voluntarily or on command Respiratory : Able to deep breathe and cough freely Circulation : BP +/- 20% of preprocedural level or not unusually high or low Consciousness : Arouses on calling O2 Saturation : O2 SAT at preprocedural level Jessica l Score : 9 HUSEYIN DAILY 07/20/2013 12:57 WELT SLASHER PARSAP Dressing : Dry and clean Pain : Pain free Fasting and Feeding : Able to drink fluids Urine Output, PARSAP : Not assessed HUSEYIN DAILY 07/20/2013 12:57 WELT SLASHER Duckworth Duckworth Agitation Sedation Scale (RASS) : Drowsy RASS Score : -1 HUSEYIN DAILY 07/20/2013 12:57 WELT SLASHER Carlos Sensory Perception Carlos : Very limited Moisture Carlos : Rarely moist Activity Carlos : Bedfast Mobility Carlos : Completely limited Nutrition Carlos : Adequate Friction and Shear Carlos : No apparent problem Carlos Score : 14 HUSEYIN DAILY 07/20/2013 12:57 WELT SLASHER Hendrich II Fall Risk Confusion/Disorientation Hendrich : [...] II : 2 HUSEYIN DAILY 07/20/2013 12:57 WELT SLASHER Safe Patient Handling Safe Pt Handling Independent : Yes - No equipment needed Safe Pt Handling Equipment Rec : No Equipment Needed HUSEYIN DAILY RN - 07/20/2013 12:57 WELT SLASHER Source: [facility] POWERCHART Document Id: [id number] WELT SLASHER!133 SLASHER Miscellaneous - Huseyin Daily R.N. - 07/20/2013 12:35 PM CST Adult Postprocedure Assessment Adult Postprocedure Assessment Entered On: 07/20/2013 12:56 WELT SLASHER Performed On: 07/20/2013 12:35 WELT SLASHER by HUSEYIN DAILY RN Vital Signs Temperature [...] inch(es)) HUSEYIN DAILY RN - 07/20/2013 12:30 WELT SLASHER General Level of Consciousness : Drowsy Orientation : Oriented x 3 Skin Color : Normal for ethnicity Skin Description : Dry Skin Temperature : Warm Pain Symptoms : No HUSEYIN DAILY RN - 07/20/2013 12:30 WELT SLASHER FLACC Face FLACC : No particular expression or smile Legs FLACC : Normal position or relaxed Activity FLACC : Lying quietly, normal position, moves easily Cry FLACC : No cry, awake or asleep Consolabillity FLACC : Content, relaxed FLACC Pain Scale Score : 0 HUSEYIN DAILY RN - 07/20/2013 12:30 WELT SLASHER Cardiovascular Heart Rhythm : Regular Nail Bed Color : [place] Capillary Refill : Less than 2 seconds Antiembolism Device : Sequential Compression Device Antiembolism Device Laterality : Left HUSEYIN DAILY RN - 07/20/2013 12:30 WELT SLASHER Respiratory Anesthesia Type : Spinal Respiratory Pattern : Regular Respirations : Unlabored All Lobes Breath Sounds : Clear Oxygen Discontinuation : 07/20/2013 12:44 WELT SLASHER HUSEYIN DAILY RN - 07/20/2013 12:30 WELT SLASHER Incentive Spirometry Cough and Deep Breathe : Done HUSEYIN DAILY RN - 07/20/2013 12:30 WELT SLASHER GI/ Nausea Symptoms : No HUSEYIN DAILY 07/20/2013 12:30 WELT SLASHER Integumentary Skin Color : Normal for ethnicity Skin Description : Dry Skin Temperature : Warm HUSEYIN DAILY 07/20/2013 12:30 WELT SLASHER Incision/Wound Incision/Wound Care Grid Activity : Assessed Type : Other: arthroscopy Location : Knee Laterality : Left Description : Dry HUSEYIN DAILY 07/20/2013 12:30 WELT SLASHER Peripheral IV Peripheral IV Assess/Intervention Grid Peripheral IV #1 IV Activity : Assessment Number of Attempts : 1 Date of Insertion : 07/20/2013 WELT SLASHER IV Site : Hand Laterality : Left Catheter Size : 20 Catheter Type : Protective Site Condition : No complications Drainage Description : None HUSEYIN DAILY 07/20/2013 12:30 WELT SLASHER I&O Other Intake : 1,600 mL (Comment: I.V. fluids given during surgery and recorded on paper copy [HUSEYIN DAILY 07/20/2013 12:30 WELT SLASHER] ) HUSEYIN DAILY 07/20/2013 12:30 WELT SLASHER Neurologic Swallowing Difficulty/Aspiration Risk : None Extremity Movement : Equal HUSEYIN DAILY 07/20/2013 12:30 WELT SLASHER Pupil, Left Pupil, Right Description : Regular Regular HUSEYIN DAILY 07/20/2013 12:30 WELT SLASHER HUSEYIN DAILY 07/20/2013 12:30 WELT SLASHER Facial Symmetry : Symmetric Characteristics of Speech : Appropriate for age HUSEYIN DAILY 07/20/2013 12:30 WELT SLASHER Lower Extremity Nail Bed Color Feet Grid Left Foot : [place] Right Foot : [place] HUSEYIN DAILY 07/20/2013 12:30 WELT SLASHER Capillary Refill Feet Grid Left Foot : < 2 seconds Right Foot : < 2 seconds HUSEYIN DAILY 07/20/2013 12:30 WELT SLASHER NV Lower Extremity Color Grid Left : [place] Right : [place] HUSEYIN DAILY 07/20/2013 12:30 WELT SLASHER NV Lower Extremity Temperature Grid Left : Warm Right : Warm HUSEYIN DAILY 07/20/2013 12:30 WELT SLASHER Lower Extremity Sensation NV Grid Medial/Lateral Surfaces Sole of Left Foot : Absent Medial/Lateral Surfaces Sole of Right Foot : Absent Web Space Between Great and Second Toe Left Foot : Absent Web Space Between Great and Second Toe Right Foot : Absent HUSEYIN DAILY RN - 07/20/2013 12:30 WELT SLASHER Activity Patient Position : Head of bed flat HUSEYIN DAILY RN - 07/20/2013 12:30 WELT SLASHER Modified Jessica Activity : Moves 2 extremities voluntarily or on command Respiratory : Able to deep breathe and cough freely Circulation : BP +/- 20% of preprocedural level or not unusually high or low Consciousness : Arouses on calling O2 Saturation : Needs oxygen to maintain > 92% Jessica l Score : 7 HUSEYIN DAILY RN - 07/20/2013 12:30 WELT SLASHER Duckworth Duckworth Agitation Sedation Scale (RASS) : Drowsy RASS Score : -1 HUSEYIN DAILY RN - 07/20/2013 12:30 WELT SLASHER Carlos Sensory Perception Carlos : Very limited Moisture Carlos : Rarely moist Activity Carlos : Bedfast Mobility Carlos : Completely limited Nutrition Carlos : Adequate Friction and Shear Carlos : No apparent problem Carlos Score : 14 HUSEYIN DAILY RN - 07/20/2013 12:30 WELT SLASHER Hendrich II Fall Risk Confusion/Disorientation Hendrich : [...] 2 HUSEYIN DAILY RN - 07/20/2013 12:30 WELT SLASHER Safe Patient Handling Safe Pt Handling Independent : Yes - No equipment needed Safe Pt Handling Equipment Rec : No Equipment Needed HUSEYIN DAILY RN - 07/20/2013 12:30 WELT SLASHER Education General Patient Education Powergrid Topics : [...] understanding HUSEYIN DAILY RN - 07/20/2013 12:30 WELT SLASHER Source: [facility] POWERCHART Document Id: [id number] WELT SLASHER!139 SLASHER Miscellaneous - Tanvi Britton APRN, BRAND DIRECTOR - 07/15/2013 7:30 AM CST General Message From: TANVI BRITTON RN BRAND DIRECTOR To: HARVINDER STUBBS III, MD; Cc: LILIANA TORRES RN; Sent: 07/15/2013 07:30:53 WELT SLASHER Subject: General Message Hi Dr. Stubbs, We have Hussein scheduled for his knee scope on Friday, 07/20. You did his H&P on 07/07. Could youdictate his note BEBETO so I have it to review? Thanks, Tanvi Source: [facility] POWERCHART Document Id: [id number] documented in this encounter Plan of Treatment Not on filedocumented as of this encounter Visit Diagnoses Not on filedocumented in this encounter
--- OUTSIDE RECORDS SUMMARY | 2022-02-07 14:32 | XMS_ITS | Encounter Summary ---
:1960 Author Organization [facility] Address [address] [place] [address] Care Team Providers Name Role Phone Unavailable [...] you attend episcopal or Patient refused 2021 tenriism services? 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 Hernandez is a pleasant 52-year-old gentleman [...] TONG PA-C On: 08/23/2013 09:29 AM Source: [facility] Document Id: [id number] documented in this encounter Miscellaneous Notes Miscellaneous - Matt Tong - 08/10/2013 3:55 PM CDT Ambulatory Patient Summary [facility] [id number] [facility] [place], [place] [id number] Visit Information Name: HUSESIN HERNANDEZ [facility] Number: [id number] Current Date: [...] 1 Tablet(s), Oral, once a day HYDROcodone-acetaminophen ([place] 5 mg-325 mg oral tablet) 2 Tablet(s), [...] Time Location Reason Provider 09/18/2013 12:00 [facility] Rash on face Jamarcus Gordillo MD Attention: Contact your local Clinic if further appointment detail needed. Your Goals/Additional instructions: Source: [facility] POWERCHART Document Id: [id number] Natali - Matt Tong - 08/10/2013 3:55 PM CDT Ambulatory Discharge Medication List [id number] [place], [place] [phone] Visit Information Name: HUSSEIN HERNANDEZ [facility] [...] 1 Tablet(s), Oral, once a day HYDROcodone-acetaminophen ([place] 5 mg-325 mg oral tablet) 2 Tablet(s), [...] in case of emergency. Additional Information: Source: [facility] POWERCHART Document Id: [id number] Natali - Roma Lindo R.N. - 08/10/2013 3:33 PM CDT Adult Flotation Tender Intake/History Adult Flotation Tender Intake/History Entered On: 08/10/2013 15:36 CDT Performed On: 08/10/2013 15:33 CDT by ROMA LINDO bunghole borer Chief Complaint : Here for follow up [...] Preferred Communication Mode : Verbal Languages : Italian ROMA LINDO RN - 08/10/2013 15:33 CDT [...] LINDO RN - 08/10/2013 15:33 CDT Source: [employer] Document Id: [id number] CDT!32 documented in this encounter Plan of Treatment Not on filedocumented as of this encounter Visit Diagnoses Not on filedocumented in this encounter
--- OUTSIDE RECORDS SUMMARY | 2022-02-07 14:32 | XMS_ITS | Encounter Summary ---
:1960 Author Organization [facility] Address [address] [place] [address] Care Team Providers Name Role Phone Unavailable Primary Care Provider Unavailable Encounter Details Date Type Department Care Team Description 03/29/2013 Hospital Encounter HX [facility] Monse Meyers M.D. Social [...] you attend pres[employer]beterian or Patient refused 2021 mosque services? 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 encounter Last Filed Vital Signs Vital Sign Reading Time Taken Comments Blood Pressure 120/70 03/29/2013 4:56 PM CHILDREN'S ENTERTAINER Pulse 72 03/29/2013 4:56 PM CHILDREN'S ENTERTAINER Temperature - - Respiratory Rate 14 03/29/2013 4:56 PM CHILDREN'S ENTERTAINER Oxygen Saturation - - Inhaled Oxygen Concentration - - Weight 111 kg (243 lb 13.3 oz) 03/29/2013 4:56 PM CHILDREN'S ENTERTAINER Height - - Body Mass Index 33.39 02/12/2013 3:29 PM CDT documented in this encounter Medications at Time of Discharge Medication Sig Dispensed Refills Start Date End Date ASPIRIN ORAL Take 1 tablet by mouth daily. 0 01/1804/13/2021 documented as of this encounter Progress Notes Monse Meyers M.D. - 03/29/2013 4:46 PM CST [id number] CHIEF COMPLAINT/REASON FOR VISIT Twisted left knee. HISTORY OF PRESENT ILLNESS Pilo was hunting yesterday for deer and he stepped over a log and fell twisting his left knee. Hesays he kind of kit his shoulder but that is not bothering him. It is the knee that bothers him. He is able to walk on it. In fact, he worked today. 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 - 03/29/2013 5:18 PM CST Ambulatory Patient Summary [address] [address] Visit Information Name: PILO HERNANDEZ [facility] Number: [id number] Current Date: 03/29/2013 17:18:44 Physicians [...] appointment detail needed. Your Goals/Additional instructions: Source: [facility] POWERCHART Document Id: [id number] ALUISA Hurst - Monse Meyers M.D. - 03/29/2013 5:18 PM CST Ambulatory Depart Summary [id number] [place] [address] Visit Information Name: MARY PILO NOWAK [facility] Number: [id number] Visit Date: 03/29/2013 17:18:43 Attending [...] your provider for clarification. Additional Information: Source: [facility] [employer] Document Id: [id number] ALUISA Hurst - Pamela Rivera, L.P.N. - 03/29/2013 4:56 PM CST Adult Software Project Engineer Intake/History Adult Software Project Engineer Intake/History Entered On: 03/29/2013 16:59 CHILDREN'S ENTERTAINER Performed On: 03/29/2013 16:56 CHILDREN'S ENTERTAINER by PAMELA RIVERA Intake Chief Complaint : [...] 110.6 kg PAMELA RIVERA - 03/29/2013 16:56 CHILDREN'S ENTERTAINER General Info Information Given By : Patient Languages : Lithuanian PAMELA RIVERA - 03/29/2013 16:56 CHILDREN'S ENTERTAINER Subjective Pain Symptoms : Yes PAMELA RIVERA 03/29/2013 16:56 CHILDREN'S ENTERTAINER Pain Pain Assessment Grid Pain 1 Location : Knee Intensity : 6 PAMELA RIVERA 03/29/2013 16:56 CHILDREN'S ENTERTAINER Dependent Habits Tobacco Use/Currently Using : No Exposure to Tobacco Smoke : Care provider denies smoking in home Smoking Status : Former smoker PAMELA RIVERA 03/29/2013 16:56 CHILDREN'S ENTERTAINER Tobacco Use Grid Type : Cigarettes Last Use : 1996 PAMELA RIVERA 03/29/2013 16:56 CHILDREN'S ENTERTAINER Caffeine Use Grid Caffeine Use : None PAMELA RIVERA 03/29/2013 16:56 CHILDREN'S ENTERTAINER Recreational Drug Use Grid Drug Use : None PAMELA RIVERA 03/29/2013 16:56 CHILDREN'S ENTERTAINER Source: [facility] POWERCHART Document Id: [id number] CHILDREN'S ENTERTAINER!38 DREN'S ENTERTAINER documented in this encounter Plan of Treatment Not on filedocumented as of this encounter Visit Diagnoses Not on filedocumented in this encounter
--- OUTSIDE RECORDS SUMMARY | 2022-02-07 14:32 | XMS_ITS | Encounter Summary ---
:1960 Author Organization [facility] Address [address] [place] [address] Care Team Providers Name Role Phone Unavailable Primary Care Provider Unavailable Encounter Details Date Type Department Care Team Description 07/07/2013 Hospital Encounter HX [facility] Mikey Smith III, M.D. [address] [place] [phone] (Wo rk) Social [...] you attend gnosticist or Patient refused 2021 mosque services? Do [...] at Date Recorded Male 06/23/2021 7:46 PM SOLUTION PROFESSIONAL documented as of this encounter Last Filed Vital Signs Vital Sign Reading Time Taken Comments Blood Pressure 134/85 07/07/2013 4:28 PM SOLUTION PROFESSIONAL Pulse 69 07/07/2013 4:28 PM SOLUTION PROFESSIONAL Temperature - - Respiratory Rate 16 07/07/2013 4:28 PM SOLUTION PROFESSIONAL Oxygen Saturation - - Inhaled Oxygen Concentration - - Weight 111 kg (244 lb 7.8 oz) 07/07/2013 4:28 PM SOLUTION PROFESSIONAL Height 182 cm (5' 11.65) 07/07/2013 4:28 PM SOLUTION PROFESSIONAL Body Mass Index 33.48 07/07/2013 4:28 PM SOLUTION PROFESSIONAL documented in this encounter Medications at Time of Discharge Medication Sig Dispensed Refills Start Date End Date ASPIRIN ORAL Take 1 tablet by mouth daily. 0 01/1804/13/2021 documented as of this encounter H&P Notes Kavon Stuart M.D. - 07/07/2013 4:21 PM CST [id number] CHIEF COMPLAINT/REASON FOR VISIT Preoperative visit per [...] in the past, and he and Dr. Mijares have decided that they should proceed with [...] high blood pressure, and history of an [place]. Father is age 87. He has got [...] Stuart M.D./osiris cc: [facility] [place] [address] Electronically Signed By: KAVON STUART III, MD On: 07/25/2013 12:36 PM Source: [facility] MHSDOLBEYNONRADSYS Document Id: [id number] documented in this encounter Miscellaneous Notes Miscellaneous - Kavon Stuart M.D. - 07/07/2013 4:58 PM CST Ambulatory Patient Summary [id number] [place] [address] Visit Information Name: HUSSEIN HERNANDEZ [facility] Number: [id number] Current Date: 07/07/2013 16:58:33 Physicians Attending Provider: KAOVN STUART III, MD Primary Care Provider: KAVON [...] Date Time Location Reason Provider 07/20/2013 11:00 [facility] Surgery OP Left knee arthroscopy, partial medial meniscectomy [facility] OR 1 08/06/2013 09:30 [facility] Spec Clin post-op left knee Marii ANTHONY, Adrián Mcgarry Attention: Contact your local Clinic if further appointment detail needed. Your Goals/Additional instructions: Source: [facility] POWERCHART Document Id: [id number] TION PROFESSIONAL Miscellaneous - Kavon Stuart M.D. - 07/07/2013 4:58 PM CST Ambulatory Discharge Medication List [address] [address] Visit Information Name: HUSSEIN HERNANDEZ [facility] Number: [id number] Visit Date: 07/07/2013 16:58:31 [...] in case of emergency. Additional Information: Source: [facility] MyDoc Document Id: [id number] TION PROFESSIONAL Miscellaneous - Ariana Eid L.P.NFarshad - 07/07/2013 4:34 PM CST Obstructive Sleep Apnea Obstructive Sleep Apnea Entered On: 07/07/2013 16:35 SOLUTION PROFESSIONAL Performed On: 07/07/2013 16:34 SOLUTION PROFESSIONAL by ARIANA EID LPN BALDO Screening Known Obstructive Sleep Apnea : No - NOT diagnosed with BALDO ARIANA EID LPN - 07/07/2013 16:34 SOLUTION PROFESSIONAL BALDO Assessment Do you have high blood pressure or have you been told to take medication for high blood pressure? : No Frequency of Snoring : Never Frequency of Gasping, Choking, Snorting : Never Total Number of Historical Features : 0 Neck Circumference (cm) : 46/47 Total Sleep Apnea Clinical Score Calc : 10 ARIANA EID LPN - 07/07/2013 16:34 SOLUTION PROFESSIONAL Source: [facility] optionsXpressCHART Document Id: [id number] SOLUTION PROFESSIONAL!10 TION PROFESSIONAL Miscellaneous - Ariana Eid L.P.N. - 07/07/2013 4:28 PM CST Adult Ranch Supervisor Intake/History Adult Ranch Supervisor Intake/History Entered On: 07/07/2013 16:34 SOLUTION PROFESSIONAL Performed On: 07/07/2013 16:28 SOLUTION PROFESSIONAL by ARIANA EID LPN Intake Chief Complaint [...] kg/m2 ARIANA EID LPN - 07/07/2013 16:28 SOLUTION PROFESSIONAL General Info Information Given By : Patient Languages : Hungarian ARIANA EID LPN - 07/07/2013 16:28 SOLUTION PROFESSIONAL Subjective Pain Symptoms : Yes ARIANA EID LPN - 07/07/2013 16:28 SOLUTION PROFESSIONAL Pain Pain Assessment Grid Pain 1 Location : Knee Laterality : Left Intensity : 5 ARIANA EID LPN - 07/07/2013 16:28 SOLUTION PROFESSIONAL Dependent Habits Tobacco Use/Currently Using : No Exposure to Tobacco Smoke : Care provider denies smoking in home Smoking Status : Former smoker ARIANA EID LPN - 07/07/2013 16:28 SOLUTION PROFESSIONAL Tobacco Use Grid Type : Cigarettes Last Use : 1996 ARIANA EID LPN - 07/07/2013 16:28 SOLUTION PROFESSIONAL Caffeine Use Grid Caffeine Use : None ARIANA EID LPN - 07/07/2013 16:28 SOLUTION PROFESSIONAL Recreational Drug Use Grid Drug Use : None ARIANA EID LPN - 07/07/2013 16:28 SOLUTION PROFESSIONAL Source: [facility] POWERCHART Document Id: [id number] SOLUTION PROFESSIONAL!44 TION PROFESSIONAL documented in this encounter Plan of Treatment Not on filedocumented as of this encounter Visit Diagnoses Not on filedocumented in this encounter
--- OUTSIDE RECORDS SUMMARY | 2022-02-07 14:32 | XMS_ITS | Encounter Summary ---
:1960 Author Organization [facility] Address [address] [place] [address] Care Team Providers Name Role Phone Unavailable [...] you attend sikh or Patient refused 2021 holiness services? 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 hernandez is a pleasant 52-year-old gentleman [...] TONG PA-C On: 09/23/2013 09:31 AM Source: [facility] MHSDOLBEYNONRADSYS Document Id: [id number] documented in this encounter Miscellaneous Notes Miscellaneous - Matt Tong - 09/14/2013 4:11 PM CDT Ambulatory Patient Summary [id number] [place], [place] [phone] Visit Information Name: PILO HERNANDEZ [facility] Number: [id number] Current Date: 09/14/2013 16:11:05 Physicians [...] Date Time Location Reason Provider 09/18/2013 12:00 [facility] Family Med Rash on face Jamarcus Gordillo MD 09/21/2013 15:15 [facility] Synvisc 3 Matt Tong PA-C Attention: Contact your local Clinic if further appointment detail needed. Your Goals/Additional instructions: Source: [facility] POWERCHART Document Id: [id number] Miscellaneous - Matt Tong - 09/14/2013 4:11 PM CDT Ambulatory Discharge Medication List [facility] [address] [place], [place] [id number] Visit Information Name: PILO HERNANDEZ [facility] Number: [id number] Visit Date: 09/14/2013 16:11:03 Attending [...] PA-C Signed On:14-SEP-2013 16:11:01 Additional Information: Source: [facility] POWERCHART Document Id: [id number] Miscellaneous - Roma Lindo, RFarshadN. - 09/14/2013 3:19 PM CDT Adult Garage Door Technician Intake/History Adult Garage Door Technician Intake/History Entered On: 09/14/2013 15:21 CDT Performed On: 09/14/2013 15:19 CDT by ROMA LINDO career development coordinator/teacher Chief Complaint : Here for second injection of left knee of Synvisc Temperature Core : 36.6 DegC(Converted to: 97.9 DegF) Peripheral Pulse Rate : 78 /min Respiratory Rate : 18 /min Systolic Blood Pressure : 132 mmHg Diastolic Blood Pressure : 74 mmHg NIBP Mean : 93 mmHg SpO2 : 95 % Oxygen Therapy : Room air ROMA LINDO RN - 09/14/2013 15:19 CDT General Info Information Given By : Patient Preferred Communication Mode : Verbal Languages : Ukrainian ROMA LINDO RN - 09/14/2013 15:19 CDT Subjective Pain Symptoms : No ROMA LINDO - 09/14/2013 15:19 CDT Dependent Habits Tobacco Use/Currently Using : No Tobacco Use/Last 12 months : No Exposure to Tobacco Smoke : Care provider denies smoking in home Smoking Status : Former smoker ROMA LINDO - 09/14/2013 15:19 CDT Tobacco Use Grid Type : Cigarettes Last Use : 1996 ROMA LINDO - 09/14/2013 15:19 CDT Caffeine Use Grid Caffeine Use : None ROMA LINDO - 09/14/2013 15:19 CDT Recreational Drug Use Grid Drug Use : None ROMA LINDO - 09/14/2013 15:19 CDT Source: [employer] Document Id: [id number] CDT!32 documented in this encounter Plan of Treatment Not on filedocumented as of this encounter Visit Diagnoses Not on filedocumented in this encounter
--- OUTSIDE RECORDS SUMMARY | 2022-02-07 14:32 | XMS_ITS | Encounter Summary ---
:1960 Author Organization [facility] Address [address] [place] [address] Care Team Providers Name Role Phone Unavailable Primary Care Provider Unavailable Encounter Details Date Type Department Care Team Description 06/09/2013 Hospital Encounter HX [facility] Iva Stubbs III, M.D. [address] [place] [phone] (Wo rk) Social [...] you attend yazidi or Patient refused 2021 pentecostal services? 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 0 01/1804/13/2021 documented as of this encounter Plan of Treatment Not on filedocumented as of this encounter Visit Diagnoses Not on filedocumented in this encounter
--- OUTSIDE RECORDS SUMMARY | 2022-02-07 14:33 | XMS_ITS | Encounter Summary ---
:1960 Author Organization [facility] Address [address] [place] [address] Care Team Providers Name Role Phone Unavailable Primary Care Provider Unavailable Encounter Details Date Type Department Care Team Description 12/12/2009 Hospital Encounter [facility]X [facility] Kristi Herring M.D. Social History Tobacco [...] you attend rastafari or Patient refused 2021 pentecostalism services? 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
--- OUTSIDE RECORDS SUMMARY | 2022-02-07 14:33 | XMS_ITS | Encounter Summary ---
:1960 Author Organization [facility] Address [address] [place] [address] Care Team Providers Name Role Phone Unavailable Primary Care Provider Unavailable Encounter Details Date Type Department Care Team Description 07/22/2011 Hospital Encounter [facility] Roger Lopez M.D. [address] [place], [place] [address] (Wo rk) Social History Tobacco Use Types [...] you attend christian or Patient refused 2021 restoration services? 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 CREATININE WITH Routine 07/22/2011 12:45 PM Resul ts for this EGFR, S/P DUMP TRUCK DRIVER [address] procedure are i n the results section. documented in this encounter Results (ABNORMAL) Creatinine with eGFR (07/22/2011 12:45 PM DUMP TRUCK DRIVER OFF [address]) athologist Signature Creatinine 0.94 0.60 - POWERCHART 1.30 MGDL HXeGFR (MDRD) >60 (H) <=61 POWERCHART [id number] Comment: A GFR of <60 mL/min is indicative of chr onic kidney disease. (MDRD calculation valid on patients 18 - 70 years.) eGFR Black/ >60 MLMIN PO WERCHART Specimen (Source) Anatomical Collection Method Collection Time Re ceived Time Location / / Volume Laterality Blood 07/22/2011 12:45 PM DUMP TRUCK DRIVER OFF [address] Lester Lopez M.D. LAB BLOOD ADD-ON Performing Organization Address City/State/ZIP Code Phon e Number POWERCHART (ABNORMAL) BUN (Blood Urea Nitrogen) (07/22/2011 12:45 PM DUMP TRUCK DRIVER [address]) athologist Signature BUN (Blood Urea 19 (H) 7 - 18 POWERCHART Nitrogen), S MGDL Specimen (Source) Anatomical Collection Method Collection Time Re ceived Time Location / / Volume Laterality Blood 07/22/2011 12:45 PM DUMP TRUCK DRIVER OFF H[address] Lester Lopez M.D. LAB BLOOD ADD-ON Performing Organization Address City/State/ZIP Code Phon e Number POWERCHART documented in this encounter Visit Diagnoses Not on filedocumented in this encounter
--- OUTSIDE RECORDS SUMMARY | 2022-02-07 14:33 | XMS_ITS | Encounter Summary ---
:1960 Author Organization [facility] Address [address] [place] [address] Care Team Providers Name Role Phone Unavailable Primary Care Provider Unavailable Encounter Details Date Type Department Care Team Description 09/03/2012 Hospital Encounter [facility] Provider, Historic al Social History Tobacco [...] you attend anabaptism or Patient refused 2021 uatsdin services? 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 0 01/1804/13/2021 documented as of this encounter Plan of Treatment Not on filedocumented as of this encounter Visit Diagnoses Not on filedocumented in this encounter
--- OUTSIDE RECORDS SUMMARY | 2022-02-07 14:33 | XMS_ITS | Encounter Summary ---
:1960 Author Organization [facility] Address [address] [place] [address] Care Team Providers Name Role Phone Unavailable Primary Care Provider Unavailable Encounter Details Date Type Department Care Team Description 03/31/2012 Hospital Encounter [facility]X [facility] July Arambula, ANA, C.N.P., D. N.P. [address] [place] [address] (Wo rk) Social History Tobacco [...] attend latter day or Patient refused 2021 evangelical services? 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 0 01/1804/13/2021 documented as of this encounter Plan of Treatment Not on filedocumented as of this encounter Visit Diagnoses Not on filedocumented in this encounter
--- OUTSIDE RECORDS SUMMARY | 2022-02-07 14:33 | XMS_ITS | Encounter Summary ---
:1960 Author Organization [facility] Address [address] [place] [address] Care Team Providers Name Role Phone Unavailable Primary Care Provider Unavailable Encounter Details Date Type Department Care Team Description 02/15/2011 Hospital Encounter [facility] July Arambula, ANA, C.N.P., D.N.P. [address], [place] [phone] (Wo rk) Social History [...] you attend worship or Patient refused 2021 yazdanism services? 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 0 01/1804/13/2021 documented as of this encounter Miscellaneous Notes Miscellaneous - July Arambula D.N.P., C.N.P. - 02/18/2011 6:44 PM CDT Results Notification Document Contains Addenda Addendum by DEBRA BARCENAS LPN on 18 February 2011 19:14:26 CDT letter sent From: JULY ARAMBULA DNP, RESIDENTIAL GAS HEAT TECHNICIAN To: DEBRA BARCENAS LPN Sent: 02/18/2011 18:44:55 CDT ! Show up: 02/18/2011 18:42:00 CDT Subject: Results Notification Actions: Notify patient of results Due Date/Time: 02/18/2011 18:42:00 CDT Source: [facility] POWERCHART Document Id: [id number] Electronically signed by Conversion, [facility] Cabler [id number] at 10/20/2016 2:57 PM CDT documented in this encounter Plan of Treatment Not on filedocumented as of this encounter Visit Diagnoses Not on filedocumented in this encounter
--- OUTSIDE RECORDS SUMMARY | 2022-02-07 14:33 | XMS_ITS | Encounter Summary ---
:[address] [facility] Address [address] [place] [address] Care Team Providers Name Role Phone Unavailable Primary Care Provider Unavailable Encounter Details Date Type Department Care Team Description 09/03/2012 Hospital Encounter HX NO MAPPING Luis Zuniga M.D. [address] [place], [place] [phone] (Wo rk) Social History [...] you attend lutheran or Patient refused 2021 buddhist services? 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 0 01/1804/13/2021 documented as of this encounter Plan of Treatment Not on filedocumented as of this encounter Visit Diagnoses Not on filedocumented in this encounter
--- OUTSIDE RECORDS SUMMARY | 2022-02-07 14:33 | XMS_ITS | Encounter Summary ---
:1960 Author Organization [facility] Address [address] [place] [address] Care Team Providers Name Role Phone Unavailable Primary Care Provider Unavailable Encounter Details Date Type Department Care Team Description 07/22/2011 Hospital Encounter [facility] Stephanie Lopez M.D. [address] [place], [place] [address] (Wo rk) Social History Tobacco Use Types [...] you attend catholic or Patient refused 2021 zoroastrianism services? 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 0 01/1804/13/2021 documented as of this encounter Procedure Notes Janis Pelaez RFarshadN. - 07/22/2011 1:29 PM CST Peripheral IV Peripheral IV Entered On: 07/22/2011 13:30 PLASTER DIE MAKER Performed On: 07/22/2011 13:29 PLASTER DIE MAKER by JANIS PELAEZ RN Peripheral IV Peripheral IV Assess/Intervention Grid Peripheral IV #1 IV Activity : Start Number of Attempts : 1 Date of Insertion : 07/22/2011 PLASTER DIE MAKER IV Site : Antecubital Laterality : Right Catheter Size : 18 Catheter Type : Protective Site Condition : No complications Drainage Description : None Infiltration Score : 0 Phlebitis Score : 0 JANIS PELAEZ RN - 07/22/2011 13:29 PLASTER DIE MAKER Source: [facility] POWERCHART Document Id: [id number] PLASTER DIE MAKER!15 TER DIE MAKER documented in this encounter Plan of Treatment Not on filedocumented as of this encounter Visit Diagnoses Not on filedocumented in this encounter
--- OUTSIDE RECORDS SUMMARY | 2022-02-07 14:33 | XMS_ITS | Encounter Summary ---
:1960 Author Organization [facility] Address [address] [place] [address] Care Team Providers Name Role Phone Unavailable Primary Care Provider Unavailable Encounter Details Date Type Department Care Team Description 09/01/2009 Hospital Encounter [facility] INPT[facility]OBS[facility] Andrew Guzmán M.D. [address] [place] [address] (Wo rk) Social History Tobacco [...] you attend jewish or Patient refused 2021 rastafarian services? 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
--- OUTSIDE RECORDS SUMMARY | 2022-02-07 14:33 | XMS_ITS | Encounter Summary ---
:1960 Author Organization [facility] Address [address] [facility] [address] Care Team Providers Name Role Phone Unavailable Primary Care Provider Unavailable Encounter Details Date Type Department Care Team Description 12/12/2009 Hospital Encounter [facility] INPT[facility]OBS[facility] Andrew Guzmán M.D. [address] [place] [address] (Wo rk) Social History Tobacco [...] you attend zoroastrianism or Patient refused 2021 muslim services? 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
--- OUTSIDE RECORDS SUMMARY | 2022-02-07 14:33 | XMS_ITS | Encounter Summary ---
:1960 Author Organization [facility] Address [address] [place] [address] Care Team Providers Name Role Phone Unavailable Primary Care Provider Unavailable Encounter Details Date Type Department Care Team Description 09/10/2012 Hospital Encounter HX [facility] Mikey Smith III, M.D. [address] [place] [phone] (Wo rk) Social [...] you attend [employer] or Patient refused 2021 taoism services? 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 0 01/1804/13/2021 documented as of this encounter Progress Notes Harvinder Stuart M.D. - 09/10/2012 12:46 PM CDT [id number] CHIEF COMPLAINT/REASON FOR VISIT Complaints of sore throat since yesterday. HISTORY OF PRESENT ILLNESS Mr. Hernandez is a 51-year-old white male who experienced sore throat and fever that began yesterday along with all over body aches and mild headache. He did take a little bit of ibuprofen yesterday whichhelped a little but otherwise he has not taken any [id number] treatments. SYSTEMS REVIEW Pertinent positives and negative [...] answered and reassurance was given. Harvinder Stuart M.D./[facility] Electronically Signed By: HARVINDER STUART III, MD On: 09/10/2012 03:30 PM Source: [facility] MHSDOLBEYNONRADSYS Document Id: [id number] documented in this encounter Miscellaneous Notes Miscellaneous - Harvinder Stuart M.D. - 09/10/2012 1:22 PM CDT Ambulatory Depart Summary [address] [address] Visit Information Name: PILO HERNANDEZ [facility] Number: [id number] Visit Date: 09/10/2012 13:22:38 Attending Provider: HARVINDER STUART III, MD Primary Care Provider: MIR BRICEÑO [facility] PILO HERNANDEZ has been given the following [...] your provider for clarification. Additional Information: Source: [facility] POWERCHART Document Id: [id number] Natali - Harvinder Stuart M.D. - 09/10/2012 1:22 PM CDT Ambulatory Patient Summary [facility] [address] [place] [address] Visit Information Name: PILO HERNANDEZ [facility] Number: [id number] Current Date: 09/10/2012 13:22:39 Physicians Attending Provider: HARVINDER STUART III, MD Primary Care Provider: MIR BRICEÑO [facility] Your Medications Here is a list of [...] No Appointments found Your Goals/Additional instructions: Source: [facility] JumpOffCampusCHART Document Id: [id number] Miscellaneous - Ethel Eid L.P.N. - 09/10/2012 1:01 PM CDT Adult Mixing Pan Tender Intake/History Document Has Been Updated Adult Mixing Pan Tender Intake/History Entered On: 09/10/2012 13:03 CDT Performed [...] Given By : Patient Languages : Lithuanian ETHEL EID LPN - 09/10/2012 13:01 CDT [...] EID LPN - 09/10/2012 13:01 CDT Source: [facility] POWERCHART Document Id: [id number] CDT!8 documented in this encounter Plan of [...] Strep A Screen (09/10/2012 1:00 PM CDT) [facility] Oversi Method Time Signature HXRapid Strep POWERCHART Confirmation HXPre Negative for POWERCHART Group A Strep by culture. HXFinal Negative for POWERCHART Group A Strep by culture. Specimen Anatomical Collection Method Collection Time Receive d Time (Source) Location / / Volume Laterality Throat 09/10/2012 1:00 PM 3 1:00 CDT PM CDT Harvinder Stuart III, M.D. LAB MICROBIOLOGY - GENE RAL ORDERABLES Performing Organization Address [facility] Phon e Number POWERCHART Rapid Strep A Screen (09/10/2012 12:56 PM CDT) [facility] Method Time Signature HXStrep A POWERCHART Screen Rapid HXFinal Negative for POWERCHART Strep Group A by rapid screen. HXFinal Culture POWERCHART confirmation to follow. Specimen (Source) Anatomical Collection Method Collection Time Re ceived Time Location / / Volume Laterality Throat 09/10/2012 12:56 PM CDT Harvinder Stuart III, M.D. LAB MICROBIOLOGY - GENE RAL ORDERABLES Performing Organization Address [facility] Code Phon e Number POWERCHART documented in this encounter Visit Diagnoses Not on filedocumented in this encounter
--- OUTSIDE RECORDS SUMMARY | 2022-02-07 14:33 | XMS_ITS | Encounter Summary ---
:1960 Author Organization [facility] Address [address] [place] [address] Care Team Providers Name Role Phone Unavailable Primary Care Provider Unavailable Encounter Details Date Type Department Care Team Description 02/12/2011 Hospital Encounter HX [facility] July Arambula, ANA, C.N.P., D. N.P. [address] [place] [address] (Wo rk) Social History Tobacco [...] you attend voodoo or Patient refused 2021 mandaeism services? 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 0 01/1804/13/2021 documented as of this encounter H&P Notes July Arambula D.N.P., C.N.P. 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 [...] that he has not used anything else [id number] to help with the symptoms and also reports that he is aware that he is due for a routine blood screening including cholesterol and a PSA. PAST MEDICAL/SURGICAL HISTORY Reviewed. Please see chart. CURRENT MEDICATIONS Reviewed. Please see chart. ALLERGIES Reviewed. Please see chart. PHYSICAL EXAMINATION OBJECTIVE: Patient is alert/oriented x 3. HEAD: Normocephalic/atraumatic. PUPILS: [place] OROPHARYNX: [place] and moist. TMs: Bilateral TMs are clear, [...] I will plan on contacting him at [phone] regarding his laboratory results. We will have [...] plan Patient/Child/Caregiver expressed understanding of the content July Arambula D.N.P., F.N.P. /gretta Electronically Signed By: JULY ARAMBULA DNP, FNP On: 02/17/2011 02:02 PM Source: [facility] MHSDOLBEYNONRADSYS Document Id: [id number] documented in this encounter Miscellaneous Notes Miscellaneous - July Arambula D.N.P., C.N.P. 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 - 02/12/2011 7:01 PM CDT Ambulatory Depart Summary [address] [address] Visit Information Name: PILO HERNANDEZ Current Date: 02/12/2011 19:01:47 Primary Care Provider: JULY ARAMBULA DNP, [employer] MAINFRAME SYSTEMS PROGRAMMER PILO HERNANDEZ has been given the following [...] to the patient and/or family, guardian/caregiver. Source: [facility]ETravelzen.comCHART Document Id: [id number] Electronically signed by Conversion, [facility] Tool Die Maker [id number] at 10/20/2016 2:57 PM CDT Miscellaneous - July Arambula D.N.Carlitos., C.N.P. - 02/12/2011 6:54 PM CDT Obstructive Sleep Apnea Obstructive Sleep Apnea Entered On: 02/12/2011 18:56 CDT Performed On: 02/12/2011 18:54 CDT by JULY ARAMBULA DNP [facility] BALDO Screening Known Obstructive Sleep Apnea: No Uses Home CPAP/BiPAP: No Risk for Sleep Apnea: No JULY ARAMBULA DNP, FNP - 02/12/2011 18:54 CDT BALDO Assessment Do you have high blood pressure or have you been told to take medication for high blood pressure?: No Frequency of Snoring: Sometimes (1-2 times per month) Frequency of Gasping, Choking, Snorting: Never Neck Circumference (cm): Less than 30 Total Sleep Apnea Clinical Score: 0 Total Number of Historical Features: 0 JULY ARAMBULA DNP, FNP - 02/12/2011 18:54 CDT Source: [facility] Personal On Demand Document Id: [id number] CDT!12 Miscellaneous - Christian Oconnor LFarshadPFarshadN. - 02/12/2011 6:12 PM CDT Health Assessment Health Assessment Entered On: 02/12/2011 18:12 CDT Performed On: 02/12/2011 18:12 CDT by CHRISTIAN OCONNOR LPN Nutrition Nutrition Risk Factors by History Adult: None CHRISTIAN OCONNOR LPN - 02/12/2011 18:12 CDT Functional Current Daily Living Assistance: None CHRISTIAN OCONNOR LPN - 02/12/2011 18:12 CDT Dependent Habits Tobacco Use/Currently Using: No Exposure to Tobacco Smoke: Care provider denies smoking in home CHRISTIAN OCONNOR LPN - 02/12/2011 18:12 CDT Tobacco Use Grid Type: Cigarettes Last Use: 1996 CHRISTIAN OCONNOR LPN - 02/12/2011 18:12 CDT Caffeine Use Grid Caffeine Use: None CHRISTIAN OCONNOR LPN - 02/12/2011 18:12 CDT Recreational Drug Use Grid Drug Use: None CHRISTIAN OCONNOR LPN - 02/12/2011 18:12 CDT Psychosocial Domestic Abuse Concerns: None CHRISTIAN OCONNOR LPN - 02/12/2011 18:12 CDT Advance Directive Advanced Directives: No CHRISTIAN OCONNOR LPN - 02/12/2011 18:12 CDT Educ Needs Learning Style Preference Adult Grid Patient: None Family: None CHRISTIAN OCONNOR LPN - 02/12/2011 18:12 CDT Source: [facility] Personal On Demand Document Id: [id number] CDT!26 Miscellaneous - Christian Oconnor LFarshadP.NFarshad - 02/12/2011 6:06 PM CDT Adult Entry Level Account Representative Intake/History Adult Entry Level Account Representative Intake/History Entered On: 02/12/2011 18:12 CDT Performed On: 02/12/2011 18:06 CDT by CHRISTIAN OCONNOR LPN Intake Chief Complaint: DOT Temperature [...] Clinic BSA: 2.38 Body Mass Index: 33.79kg/m2 CHRISTIAN OCONNOR LPN - 02/12/2011 18:06 CDT Subjective Pain Symptoms: No CHRISTIAN OCONNOR LPN - 02/12/2011 18:06 CDT Dependent Habits Tobacco Use/Currently Using: No Tobacco Use/Last 12 months: No Exposure to Tobacco Smoke: Care provider denies smoking in home CHRISTIAN OCONNOR LPN - 02/12/2011 18:06 CDT Tobacco Use Grid Type: Cigarettes Last Use: 1996 CHRISTIAN OCONNOR LPN - 02/12/2011 18:06 CDT Alcohol Use: Yes CHRISTIAN OCONNOR LPN - 02/12/2011 18:06 CDT Caffeine Use Grid Caffeine Use: None CHRISTIAN OCONNOR LPN - 02/12/2011 18:06 CDT Recreational Drug Use Grid Drug Use: None CHRISTIAN OCONNOR LPN - 02/12/2011 18:06 CDT Allergy Allergies (Active) NyQuil Estimated Onset Date: Unspecified ; Created By: CHRISTIAN OCONNOR LPN; Reaction Status: Active ; Category: Drug ; Substance: NyQuil ; Type: Allergy ; Updated By: CHRISTIAN OCONNOR LPN; Reviewed Date: 02/11/2011 10:38 CDT Source: [employer] Document Id: [id number] CDT!34 Miscellaneous - Christian Oconnor L.P.N. - 02/11/2011 10:42 AM CDT Adult Entry Level Account Representative Intake/History Adult Entry Level Account Representative Intake/History Entered On: 02/11/2011 10:44 CDT Performed On: 02/11/2011 10:42 CDT by CHRISTIAN OCONNOR LPN Subjective Pain Symptoms: No CHRISTIAN OCONNOR LPN - 02/11/2011 10:42 CDT Dependent Habits Tobacco Use/Currently Using: No Tobacco Use/Last 12 months: No CHRISTIAN OCONNOR LPN - 02/11/2011 10:42 CDT Tobacco Use Grid Type: Cigarettes Last Use: 1996 CHRISTIAN OCONNOR LPN - 02/11/2011 10:42 CDT Allergy Allergies (Active) NyQuil Estimated Onset Date: Unspecified ; Created By: CHRISTIAN OCONNOR LPN; Reaction Status: Active ; Category: Drug ; Substance: NyQuil ; Type: Allergy ; Updated By: CHRISTIAN OCONNOR LPN; Reviewed Date: 02/11/2011 10:38 CDT Source: [employer] Document Id: [id number] CDT!10 documented in this encounter Plan of Treatment Not on filedocumented as of this encounter Visit Diagnoses Not on filedocumented in this encounter
--- OUTSIDE RECORDS SUMMARY | 2022-02-07 14:33 | XMS_ITS | Encounter Summary ---
:1960 Author Organization [facility] Address [address] [place] [address] Care Team Providers Name Role Phone Unavailable Primary Care Provider Unavailable Encounter Details Date Type Department Care Team Description 10/24/2009 Hospital Encounter HX NO MAPPING Noe Mijares M.D. [address] [place], [place] [phone] (Wo rk) Social History [...] you attend scientologist or Patient refused 2021 alevism services? 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
--- OUTSIDE RECORDS SUMMARY | 2022-02-07 14:33 | XMS_ITS | Encounter Summary ---
:1960 Author Organization [facility] Address [address] [place] [address] Care Team Providers Name Role Phone Unavailable Primary Care Provider Unavailable Encounter Details Date Type Department Care Team Description 07/15/2011 Hospital Encounter [facility] SURGERY Diaz Giraldo M.D. [address] [place], [place] [phone] (Wo rk) Social History Tobacco Use Types [...] you attend religion or Patient refused 2021 bahai services? Do [...] at Date Recorded Male 06/23/2021 7:46 PM STAVE JOINTER documented as of this encounter Last Filed Vital Signs Vital Sign Reading Time Taken Comments Blood Pressure 111/71 07/15/2011 9:40 AM STAVE JOINTER Pulse 60 07/15/2011 9:40 AM STAVE JOINTER Temperature - - Respiratory Rate 16 07/15/2011 9:40 AM STAVE JOINTER Oxygen Saturation - - Inhaled Oxygen Concentration - - Weight - - Height 182 cm (5' 11.65) 07/15/2011 7:37 AM STAVE JOINTER Body Mass Index - - documented in this encounter Medications at Time of Discharge Medication Sig Dispensed Refills Start Date End Date ASPIRIN ORAL Take 1 tablet by mouth daily. 0 01/1804/13/2021 documented as of this encounter Procedure Notes Jelena Hunter RShahzad - 07/15/2011 7:37 AM CST Preprocedure Checklist Preprocedure Checklist Entered On: 07/15/2011 7:44 STAVE JOINTER Performed On: 07/15/2011 7:37 STAVE JOINTER by JELENA HUNTER RN Checklist Last Fluid Intake : 07/14/2011 20:00 STAVE JOINTER Last Food Intake : 07/14/2011 20:00 STAVE JOINTER Last Void : 07/15/2011 7:00 STAVE JOINTER JELENA HUNTER RN - 07/15/2011 7:37 STAVE JOINTER Surgery Prep Grid Contacts/Glasses Removed : NA Dentures Removed : NA Hairpins/Hairpiecies Removed : NA Hearing Aid Removed : NA Home Prep Complete : NA Jewelry/Piercing Removed : NA Makeup/Nail Tamazight Removed : NA Oral Hygiene : NA Preop Scrub AM of Surgery : NA Preop Scrub Night Prior to Surgery : NA Prosthesis Removed : NA Surgical Prep Verified : Yes Tampon Removed : NA Wearing Patient Gown : Yes JELENA HUNTER RN - 07/15/2011 7:37 STAVE JOINTER Patient Rights Grid Blood Consent Signed : NA Surgical/Procedure Consent Signed : Yes JELENA HUNTER RN - 07/15/2011 7:37 STAVE JOINTER Family Location : waiting at home JELENA HUNTER RN - 07/15/2011 7:37 STAVE JOINTER Checklist II Patient Safety Grid Allergy Band [...] NA JELENA HUNTER RN - 07/15/2011 7:37 STAVE JOINTER RN Who Verified Site : JELENA HUNTER RN Physician Who Verified Site : KHARI GIRALDO MD, GWYNNE A RN - 07/15/2011 7:37 STAVE JOINTER BALDO Screening Known Obstructive Sleep Apnea : No JELENA HUNTER RN - 07/15/2011 7:37 STAVE JOINTER BALDO Assessment Do you have high blood pressure or have you been told to take medication for high blood pressure? : No Frequency of Snoring : Often (1-2 times per week) Frequency of Gasping, Choking, Snorting : Never Neck Circumference (cm) : 44/45 Total Sleep Apnea Clinical Score : 7 Total Number of Historical Features : 0 JELENA HUNTER RN - 07/15/2011 7:37 STAVE JOINTER Valuables/Belongings Valuables/Belongings Grid Valuables at Bedside Clothes, Patient Valuables : Jacket, Pants, Shirt, Shoes JELENA HUNTER RN - 07/15/2011 7:37 STAVE JOINTER Education Preprocedure Education Grid Procedure Type : cystoscopy Education Topics : Anesthesia/Sedation, Plan of care Individuals Taught : Patient Barriers to Learning : None evident Teaching Method : Explanation Teaching Evaluation : Verbalizes understanding JELENA HUNTER RN - 07/15/2011 7:37 STAVE JOINTER Preop Holding Mode of Arrival : Ambulatory Preoperative Orders Complete : Yes JELENA HUNTER RN - 07/15/2011 7:37 STAVE JOINTER Advance Directive Advanced Directives : No EILEENJELENA ROLDAN RN - 07/15/2011 7:37 STAVE JOINTER Vital Signs Temperature Core : 36.5C(Converted to: 97.7DegF) Peripheral Pulse Rate : 80/min Respiratory Rate : 16/min Systolic Blood Pressure : 130mmHg Diastolic Blood Pressure : 86mmHg NIBP Mean : 101mmHg SpO2 : 100% Oxygen Saturation Monitoring Frequency : Intermittent Oxygen Therapy : Room air Height : 182cm(Converted to: 6ft 0inch(es)) Estimated Weight : 107kg Estimated Weight Conversion to Pounds : 235.40lb JELENA HUNTER RN - 07/15/2011 7:37 STAVE JOINTER Allergy Allergies (Active) Nyquil Cold Medicine Estimated Onset Date: Unspecified ; Created By: PRAVEEN KAUFFMAN RN; Reaction Status: Active ; Category: Drug ; Substance: Nyquil Cold Medicine ; Type: Allergy ; Updated By: PRAVEEN KAUFFMAN RN; Reviewed Date: 07/01/2011 17:21 STAVE JOINTER Preprocedural Pause Correct Patient Identity : Patient verbalizes self, Patient wristband ID, Family/responsible alliance party ID Correct Procedure Site and Side : cystoscopy Correct Procedure Site/Side Verified By : Patient/responsible alliance party, Nurse, MD Site Marking : N/A Pre-Procedure Pause Verbal Confirm. of : Procedure, Site, Side, Patient Position, Patient ID JELENA HUNTER RN - 07/15/2011 7:37 STAVE JOINTER Source: [facility] POWERCHART Document Id: [id number] STAVE JOINTER!91 E JOINTER documented in this encounter Nursing Notes Jelena Hunter R.N. - 07/15/2011 7:21 AM CST Day Surgery Admission History/Asmt Adult Document Has Been Updated Day Surgery Admission History/Asmt Adult Entered On: 07/15/2011 7:36 STAVE JOINTER Performed On: 07/15/2011 7:21 STAVE JOINTER by JELENA HUNTER RN General Info Preferred Name : Ray Mode of Arrival : Ambulatory Accompanied By : Alone Chief Complaint : here for cystoscopy Preferred Communication Mode : Verbal Information Given By : Patient Languages : Urdu Have you received chemotherapy in last 48 hours? : No JELENA HUNTER RN - 07/15/2011 7:21 STAVE JOINTER Allergy Allergies (Active) Nyquil Cold Medicine Estimated Onset Date: Unspecified ; Created By: PRAVEEN KAUFFMAN RN; Reaction Status: Active ; Category: Drug ; Substance: Nyquil Cold Medicine ; Type: Allergy ; Updated By: PRAVEEN KAUFFMAN RN; Reviewed Date: 07/01/2011 17:21 STAVE JOINTER Anesth/Transfusion Anesthesia/Transfusions : Prior anesthesia JELENA HUNTER RN - 07/15/2011 7:21 STAVE JOINTER ID Screen Drug Resistant Organism : No JELENA HUNTER RN 07/15/2011 7:21 STAVE JOINTER Nutrition Nutrition Risk Factors by History Adult : None Home Diet : Regular Feeding Ability : Complete independence Eating Difficulties : None Appetite : Excellent JELENA HUNTER RN 07/15/2011 7:21 STAVE JOINTER Home Environment Current Daily Living Assistance : None Living Situation : Home independently Home Equipment : None Sensory Deficits : None Mobility Assistance Prior to Admission : Independent Current Home Treatments : None Professional Skilled Services : None Special Services and Community Resources : None JELENA HUNTER RN 07/15/2011 7:21 STAVE JOINTER Dependent Habits Alcohol Use : Yes JELENA HUNTER 07/15/2011 7:44 STAVE JOINTER Tobacco Use/Currently Using : No Tobacco Use/Last 12 months : No Exposure to Tobacco Smoke : Care provider denies smoking in home JELENA HUNTER 07/15/2011 7:21 STAVE JOINTER Smoking Status : Former smoker JELENA HUNTER 07/15/2011 7:44 STAVE JOINTER JELENA HUNTER 07/15/2011 7:44 STAVE JOINTER Tobacco Use Grid Type : Cigarettes Last Use : 1996 JELENA HUNTER RN 07/15/2011 7:21 STAVE JOINTER Caffeine Use Grid Caffeine Use : None JELENA HUNTER RN 07/15/2011 7:21 STAVE JOINTER Recreational Drug Use Grid Drug Use : None JELENA HUNTER RN - 07/15/2011 7:21 STAVE JOINTER AUDIT Tool How Often Do You Have A Drink : 2 to 3 times a week How Many Drinks in a Day When Drinking : 1 or 2 Six or More Drinks On One Occassion : Never Audit Phase 1 Score : 3 EILEENARLEY ANTONIOYNWALKER Mcgarry RN - 07/15/2011 7:44 STAVE JOINTER Psychosocial Adult Domestic Abuse Concerns : None JELENA HUNTER RN - 07/15/2011 7:21 STAVE JOINTER Advance Directive Advanced Directives : No JELENA HUNTER - 07/15/2011 7:21 STAVE JOINTER Educ Needs Patient/Family Education Needs : Plan of care, Surgery JELENA HUNTER 07/15/2011 7:21 STAVE JOINTER Learning Style Preference Adult Grid Patient : Verbal explanation Family : None JELENA HUNTER - 07/15/2011 7:21 STAVE JOINTER Psycho/Emotional Pain Symptoms : No JELENA HUNTER - 07/15/2011 7:21 STAVE JOINTER Peripheral IV Peripheral IV Assess/Intervention Grid Peripheral IV #1 IV Activity : Start Number of Attempts : 1 Date of Insertion : 07/15/2011 STAVE JOINTER IV Site : Hand Laterality : Left Catheter Size : 18 Catheter Type : Protective Site Condition : No complications Drainage Description : None Infiltration Score : 0 Phlebitis Score : 0 JELENA HUNTER RN - 07/15/2011 7:21 STAVE JOINTER Carlos Sensory Perception Carlos : No impairment Moisture Carlos : Rarely moist Activity Carlos : Walks frequently Mobility Carlos : No limitations Nutrition Carlos : Excellent Friction and Shear Carlos : Potential problem Carlos Score : 22 EILEENJELENA ANTONIO - 07/15/2011 7:21 STAVE JOINTER Hendrich II Fall Risk Confusion/Disorientation Hendrich : [...] 1 JELENA HUNTER RN - 07/15/2011 7:21 STAVE JOINTER DC Needs Anticipated Discharge Date : 07/15/2011 STAVE JOINTER Discharge To, Anticipated : Home independently Home Treatments, Anticipated : None Home Equipment, Anticipated : None Professional Skilled Services, Anticipated : None Special Serv & Comm Res, Anticipated : None Needs Assistance with Transportation : No Needs Assistance at Home Upon Discharge : No JELENA HUNTER RN - 07/15/2011 7:21 STAVE JOINTER FLACC Face FLACC : No particular expression or smile Legs FLACC : Normal position or relaxed Activity FLACC : Lying quietly, normal position, moves easily Cry FLACC : No cry, awake or asleep Consolabillity FLACC : Content, relaxed FLACC Pain Scale Score : 0 JELENA HUNTER RN - 07/15/2011 7:21 STAVE JOINTER Integumentary Integumentary Patient Stated Symptoms : None Skin Turgor : Elastic Skin Integrity : Intact Mucous Membrane Color : [place] Mucous Membrane Description : Moist Skin Color : Normal for ethnicity Skin Description : Dry Skin Temperature : Warm JELENA HUNTER RN - 07/15/2011 7:21 STAVE JOINTER [facility] Document Id: [id number] STAVE JOINTER!9 E JOINTER documented in this encounter OR Notes Op Note - Khari Giraldo M.D. - 07/15/2011 12:00 AM CST [id number] Preoperative Diagnosis: Hematuria. Postoperative Diagnosis: Hematuria. Procedure [...] M.D. /vikki CC: Office Of [facility] Giraldo [facility] Electronically Signed By: KHARI GIRALDO MD On: 09/16/2011 08:54 AM Source: [facility] MHSDOLBEYNONRADSYS Document Id: [id number] documented in this encounter Miscellaneous Notes Miscellaneous - Jelena Hunter RShahzad - 07/15/2011 10:00 AM STAVE JOINTER Adult Postprocedure Assessment Adult Postprocedure Assessment Entered On: 07/15/2011 9:23 STAVE JOINTER Performed On: 07/15/2011 10:00 STAVE JOINTER by JELENA HUNTER RN Vital Signs Temperature Core : 36.7C(Converted to: 98.1DegF) Peripheral Pulse Rate : 62/min Respiratory Rate : 16/min Systolic Blood Pressure : 112mmHg Diastolic Blood Pressure : 65mmHg NIBP Mean : 81mmHg SpO2 : 99% Oxygen Saturation Monitoring Frequency : Continuous Oxygen Therapy : Room air JELENA HUNTER RN - 07/15/2011 9:19 STAVE JOINTER General Level of Consciousness : Alert Orientation : Oriented x 3 Skin Color : Normal for ethnicity Skin Description : Dry Skin Temperature : Warm Pain Symptoms : No JELENA HUNTER RN - 07/15/2011 9:19 STAVE JOINTER FLACC Face FLACC : No particular expression or smile Legs FLACC : Normal position or relaxed Activity FLACC : Lying quietly, normal position, moves easily Cry FLACC : No cry, awake or asleep Consolabillity FLACC : Content, relaxed FLACC Pain Scale Score : 0 JELENA HUNTER RN - 07/15/2011 9:19 STAVE JOINTER Cardiovascular Heart Rhythm : Regular JELENA HUNTER 07/15/2011 9:19 STAVE JOINTER Pulses Grid Radial Pulse, Left : 2+ Normal Radial Pulse, Right : 2+ Normal JELENA HUNTER 07/15/2011 9:19 STAVE JOINTER Cardiac Rhythm Techs Ventricular Rate : 62bpm Ventricular Rhythm : Regular JELENA HUNTER 07/15/2011 9:19 STAVE JOINTER Respiratory Anesthesia Type : MAC Airway Type : None Respiratory Pattern : Regular Respirations : Unlabored All Lobes Breath Sounds : Clear JELENA HUNTER 07/15/2011 9:19 STAVE JOINTER GI/ Urinary Elimination : Voiding, no difficulties JELENA HUNTER 07/15/2011 10:21 STAVE JOINTER Nausea Symptoms : No Abdomen Description : Rounded JELENA HUNTER 07/15/2011 9:19 STAVE JOINTER Integumentary Integumentary Patient Stated Symptoms : None Skin Turgor : Elastic Skin Integrity : Intact Mucous Membrane Color : [place] Mucous Membrane Description : Moist Skin Color : Normal for ethnicity Skin Description : Dry Skin Temperature : Warm JELENA HUNTER 07/15/2011 9:19 STAVE JOINTER Incision/Wound Incision/Wound Care Grid Wound Numbering : 0 JELENA HUNTER 07/15/2011 9:19 STAVE JOINTER Peripheral IV Peripheral IV Assess/Intervention Grid Peripheral IV #1 IV Activity : Discontinue Number of Attempts : 1 Date of Insertion : 07/15/2011 STAVE JOINTER IV Site : Hand Laterality : Left Catheter Size : 18 Catheter Type : Protective Infiltration Score : 0 Phlebitis Score : 0 Comments (Comment: IV discontinued with plastic cath intact upon removal, site good [JELENA HUNTER 07/15/2011 9:19 STAVE JOINTER] ) ELSA JELENA Mcgarry 07/15/2011 9:19 STAVE JOINTER I&O Oral Intake : 250mL Other Intake : 200mL (Comment: IV LR in PAR [JELENA HUNTER 07/15/2011 9:19 STAVE JOINTER] ) JELENA HUNTER 07/15/2011 9:19 STAVE JOINTER Nutrition Morning Snack : 100% JELENA HUNTER 07/15/2011 9:19 STAVE JOINTER Neurologic Swallowing Difficulty/Aspiration Risk : None Extremity Movement : Equal Facial Symmetry : Symmetric Characteristics of Speech : Clear JELENA HUNTER 07/15/2011 9:19 STAVE JOINTER Upper Extremity Nail Bed Color Hands Grid Left Hand : [place] Right Hand : [place] JELENA HUNTER 07/15/2011 9:19 STAVE JOINTER Capillary Refill Hand Grid Left Hand : < 2 seconds Right Hand : < 2 seconds JELENA HUNTER 07/15/2011 9:19 STAVE JOINTER Upper Extremity Color Grid Left : [place] Right : [place] JELENA HUNTER 07/15/2011 9:19 STAVE JOINTER Upper Extremity Temperature Grid Left : Warm Right : Warm JELENA HUNTER 07/15/2011 9:19 STAVE JOINTER NV Upper Extremity Pulses Grid Radial Pulse, Left : 2+ Normal Radial Pulse, Right : 2+ Normal JELENA HUNTER 07/15/2011 9:19 STAVE JOINTER PARSAP Activity Status : Moves 4 extremities [...] Score : 19 JELENA HUNTER 07/15/2011 9:19 STAVE JOINTER Duckworth Duckworth Agitation Sedation Scale (RASS) : Alert and calm RASS Score : 0 JELENA HUNTER 07/15/2011 9:19 STAVE JOINTER Carlos Sensory Perception Carlos : No impairment Moisture Carlos : Rarely moist Activity Carlos : Walks frequently Mobility Carlos : No limitations Nutrition Carlos : Excellent JELENA HUNTER 07/15/2011 9:19 STAVE JOINTER Hendrich II Fall Risk Confusion/Disorientation Hendrich : [...] 2 JELENA HUNTER RN - 07/15/2011 9:19 STAVE JOINTER Education General Patient Education Powergrid Topics : Discharge instructions/Medication list, Plan of care JELENA HUNTER RN - 07/15/2011 9:19 STAVE JOINTER [facility] Document Id: [id number] STAVE JOINTER!3 E JOINTER Miscellaneous - Jelena Hunter RShahzad - 07/15/2011 9:02 AM CST Adult Postprocedure Assessment Adult Postprocedure Assessment Entered On: 07/15/2011 9:08 STAVE JOINTER Performed On: 07/15/2011 9:02 STAVE JOINTER by JELENA HUNTER RN Vital Signs Temperature Core : 36.2C(Converted to: 97.2DegF) (LOW) Peripheral Pulse Rate : 55/min (LOW) Respiratory Rate : 16/min Systolic Blood Pressure : 108mmHg Diastolic Blood Pressure : 56mmHg NIBP Mean : 73mmHg SpO2 : 98% Oxygen Saturation Monitoring Frequency : Continuous Oxygen Flow Rate : 3L/min Oxygen Therapy : Nasal Cannula JELENA HUNTER RN - 07/15/2011 9:02 STAVE JOINTER General Level of Consciousness : Drowsy Orientation : Identifies self Skin Color : Normal for ethnicity Skin Description : Dry Skin Temperature : Warm Pain Symptoms : No JELENA HUNTER RN - 07/15/2011 9:02 STAVE JOINTER FLACC Face FLACC : No particular expression or smile Legs FLACC : Normal position or relaxed Activity FLACC : Lying quietly, normal position, moves easily Cry FLACC : No cry, awake or asleep Consolabillity FLACC : Content, relaxed FLACC Pain Scale Score : 0 EILEENJAMAR JELENA A 07/15/2011 9:02 STAVE JOINTER Cardiovascular Heart Rhythm : Regular Nail Bed Color : [place] Edema : None Capillary Refill : Less than 2 seconds JELENA HUNTER 07/15/2011 9:02 STAVE JOINTER Pulses Grid Radial Pulse, Left : 2+ Normal Radial Pulse, Right : 2+ Normal JELENA HUNTER 07/15/2011 9:02 STAVE JOINTER Cardiac Rhythm Techs Ventricular Rate : 55bpm Ventricular Rhythm : Regular JELENA HUNTER 07/15/2011 9:02 STAVE JOINTER Respiratory Anesthesia Type : MAC Airway Type : None Respiratory Pattern : Regular Respirations : Unlabored All Lobes Breath Sounds : Clear JELENA HUNTER 07/15/2011 9:02 STAVE JOINTER GI/ Nausea Symptoms : No JELENA HUNTER 07/15/2011 9:02 STAVE JOINTER Integumentary Integumentary Patient Stated Symptoms : None Skin Turgor : Elastic Skin Integrity : Intact Mucous Membrane Color : [place] Mucous Membrane Description : Moist Skin Color : Normal for ethnicity Skin Description : Dry Skin Temperature : Warm JELENA HUNTER 07/15/2011 9:02 STAVE JOINTER Peripheral IV Peripheral IV Assess/Intervention Grid Peripheral IV #1 IV Activity : Assessment Number of Attempts : 1 Date of Insertion : 07/15/2011 STAVE JOINTER IV Site : Hand Laterality : Left Catheter Size : 18 Catheter Type : Protective Site Condition : No complications Drainage Description : None Infiltration Score : 0 Phlebitis Score : 0 JELENA HUNTER 07/15/2011 9:02 STAVE JOINTER I&O Other Intake : 1,700mL (Comment: IV LR intake i n OR [JELENA HUNTER 07/15/2011 9:02 STAVE JOINTER] ) Emesis : 0mL JELENA HUNTER 07/15/2011 9:02 STAVE JOINTER Neurologic Swallowing Difficulty/Aspiration Risk : None Extremity Movement : Equal Facial Symmetry : Symmetric Characteristics of Speech : Clear JELENA HUNTER 07/15/2011 9:02 STAVE JOINTER Upper Extremity Nail Bed Color Hands Grid Left Hand : [place] Right Hand : [place] JELENA HUNTER 07/15/2011 9:02 STAVE JOINTER Capillary Refill Hand Grid Left Hand : < 2 seconds Right Hand : < 2 seconds JELENA HUNTER 07/15/2011 9:02 STAVE JOINTER Upper Extremity Color Grid Left : [place] Right : [place] JELENA HUNTER 07/15/2011 9:02 STAVE JOINTER Upper Extremity Temperature Grid Left : Warm Right : Warm JELENA HUNTER 07/15/2011 9:02 STAVE JOINTER NV Upper Extremity Pulses Grid Radial Pulse, Left : 2+ Normal Radial Pulse, Right : 2+ Normal JELENA HUNTER 07/15/2011 9:02 STAVE JOINTER Modified Jessica Activity : Moves 4 extremities voluntarily or on command Respiratory : Able to deep breathe and cough freely Circulation : BP +/- 20% of preprocedural level or not unusually high or low Consciousness : Arouses on calling O2 Saturation : Needs oxygen to maintain > 92% Jessica l Score : 8 JELENA HUNTER 07/15/2011 9:02 STAVE JOINTER [place] Duckworth Agitation Sedation Scale (RASS) : Drowsy RASS Score : -1 JELENA HUNTER 07/15/2011 9:02 STAVE JOINTER Carlos Sensory Perception Carlos : No impairment Moisture Carlos : Rarely moist Activity Carlos : Walks frequently Mobility Carlos : No limitations Nutrition Carlos : Excellent Friction and Shear Carlos : Potential problem Carlos Score : 22 JELENA HUNTER 07/15/2011 9:02 STAVE JOINTER Hendrich II Fall Risk Confusion/Disorientation Hendrich : [...] II : 4 JELENA HUNTER 07/15/2011 9:02 STAVE JOINTER Source: [facility] POWERCHART Document Id: [id number] STAVE JOINTER!120 E JOINTER documented in this encounter Plan of Treatment Not on filedocumented as of this encounter Procedures Procedure Name Priority Date/Time Associated Diagnosis Comme nts BACTERIAL CULTURE, Routine 07/15/2011 8:30 AM Res ults for this AEROBIC, URINE STAVE JOINTER procedure are in the results section. documented in this encounter Results Bacterial Culture, Aerobic, Urine (07/15/2011 8:30 AM STAVE JOINTER) [facility] gist Method Time Signature Bacterial POWERCHART Culture, Aerobic, Urine HXPre No growth POWERCHART at 1 day. HXFinal No growth POWERCHART Specimen Anatomical Collection Method Collection Time Receive d Time (Source) Location / / Volume Laterality Urine 07/15/2011 8:30 AM 2 9:32 STAVE JOINTER AM STAVE JOINTER Khari Giraldo M.D. LAB MICROBIOLOGY - GENERAL O RDERABLES Performing Organization Address City/State/ZIP Code Phon e Number POWERCHART documented in this encounter Visit Diagnoses Not on filedocumented in this encounter
--- OUTSIDE RECORDS SUMMARY | 2022-02-07 14:33 | XMS_ITS | Encounter Summary ---
:1960 Author Organization [facility] Address [address] [place] [address] Care Team Providers Name Role Phone Unavailable Primary Care Provider Unavailable Encounter Details Date Type Department Care Team Description 04/01/[address] [facility] [place] Roger Giraldo M.D. [address] [place], [place] [address] (Wo rk) Social History Tobacco Use Types [...] you attend anabaptism or Patient refused 2021 pentecostalism services? Do [...] at Date Recorded Male 06/23/2021 7:46 PM CLOTHER IN documented as of this encounter Medications at Time of Discharge Medication Sig Dispensed Refills Start Date End Date ASPIRIN ORAL Take 1 tablet by mouth daily. 0 01/1804/13/2021 documented as of this encounter Miscellaneous Notes Miscellaneous - Roxy Shea R.N. - 06/25/2011 1:43 PM CST Ambulatory Patient Summary [id number] [place] [address] Visit Information Name: PILO HERNANDEZ Current Date: 06/25/2011 13:43:32 Primary Care Provider: MIR BRICEÑO [facility], REAL TIME ANALYST Your Medications Here is a list of [...] No Appointments found Your Goals/Additional instructions: Source: [facility] [employer] Document Id: [id number] HER IN Miscellaneous - Roxy Shea R.N. - 06/25/2011 1:43 PM CST Ambulatory Depart Summary [address] [address] Visit Information Name: PILO HERNANDEZ Current Date: 06/25/2011 13:43:31 Attending Provider: KHARI GIRALDO MD Primary Care Provider: IMR BRICEÑO [facility], REAL TIME ANALYST PILO HERNANDEZ has been given the following [...] Oral once a day Additional Information: [facility] Document Id: [id number] HER IN documented in this encounter Plan of Treatment Not on filedocumented as of this encounter Visit Diagnoses Not on filedocumented in this encounter
--- OUTSIDE RECORDS SUMMARY | 2022-02-07 14:33 | XMS_ITS | Encounter Summary ---
:1960 Author Organization [facility] Address [address] [place] [address] Care Team Providers Name Role Phone Unavailable Primary Care Provider Unavailable Encounter Details Date Type Department Care Team Description 10/24/2009 Hospital Encounter [facility] Darya Mijares M.D. [address] [place] [address] (Wo rk) Social History Tobacco [...] you attend congregational or Patient refused 2021 mandaen services? 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
--- OUTSIDE RECORDS SUMMARY | 2022-02-07 14:33 | XMS_ITS | Encounter Summary ---
:1960 Author Organization [facility] Address [address] [place] [address] Care Team Providers Name Role Phone Unavailable Primary Care Provider Unavailable Encounter Details Date Type Department Care Team Description 06/27/2011 Hospital Encounter HX [facility] Mir Briceño, ANA, C.N.P., D. N.P. [address] [place] [address] (Wo rk) Social History Tobacco [...] you attend restoration or Patient refused 2021 taoism services? 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 0 01/1804/13/2021 documented as of this encounter Progress Notes Mir Briceño D.N.P., C.N.P. - 07/01/2011 12:00 AM CST Addendum Document Contains Addenda Modification to date of visit by Joan Reece, golf club weigher. CHIEF COMPLAINT/REASON FOR VISIT 1. Routine physical [...] x 3. HEAD: Normocephalic/atraumatic. PUPILS: [place]. OROPHARYNX: Bigfoot and moist. TMs: Bilateral TMs are clear, [...] patient. Presently he is to hold all sgfz-jkh-bbhvpmh medication prior to procedure as recommended. Presently, [...] DNP, FNP On: 07/08/2011 04:20 PM Source: [facility] JOSE Document Id: [id number] TH CARE FACILITY ADMINISTRATOR documented in this encounter Miscellaneous Notes Miscellaneous - Mir Briceño D.N.P., C.N.P. - 07/01/2011 8:20 PM HEALTH CARE FACILITY ADMINISTRATOR Ambulatory Patient Summary [facility] [address] [place] [address] Visit Information Name: HUSSEIN HERNANDEZ Current Date: 07/01/2011 20:20:44 Primary Care Provider: MIR BRICEÑO DNP, DATA CONVERSION DEVELOPER Your Medications Here is a list of [...] Date Time Location Reason Provider 07/15/2011 08:00 [facility] Surgery OP OP/DS cystoscopy/retrogrades Your Goals/Additional instructions: Source: [facility] POWERCHART Document Id: [id number] TH CARE FACILITY ADMINISTRATOR Miscellaneous - Mir Briceño D.N.P., C.N.P. - 07/01/2011 8:20 PM HEALTH CARE FACILITY ADMINISTRATOR Ambulatory Depart Summary [address] [address] Visit Information Name: HUSSEIN HERNANDEZ Current Date: [...] to the patient and/or family, guardian/caregiver. Source: [facility] InterAtlasCHART Document Id: [id number] TH CARE FACILITY ADMINISTRATOR Miscellaneous - Conversion, Historical Provider Ser - 07/01/2011 5:24 PM HEALTH CARE FACILITY ADMINISTRATOR Health Assessment Health Assessment Entered On: 07/01/2011 17:25 HEALTH CARE FACILITY ADMINISTRATOR Performed On: 07/01/2011 17:24 HEALTH CARE FACILITY ADMINISTRATOR by DEBRA BARCENAS LPN Health Assessment Complete Health Assessment Complete or Modified : Annual Health Assessment Annual Health Assessment Completed : Yes DEBRA BARCENAS LPN - 07/01/2011 17:24 HEALTH CARE FACILITY ADMINISTRATOR Nutrition Nutrition Risk Factors by History Adult : None DEBRA BARCENAS LPN - 07/01/2011 17:24 HEALTH CARE FACILITY ADMINISTRATOR Functional Current Daily Living Assistance : None DEBRA BARCENAS LPN - 07/01/2011 17:24 HEALTH CARE FACILITY ADMINISTRATOR Dependent Habits Tobacco Use/Currently Using : No Exposure to Tobacco Smoke : Care provider denies smoking in home Smoking Status : Never smoker DEBRA BARCENAS LPN - 07/01/2011 17:24 HEALTH CARE FACILITY ADMINISTRATOR Tobacco Use Grid Type : Cigarettes Last Use : 1996 DEBRA BARCENAS LPN - 07/01/2011 17:24 HEALTH CARE FACILITY ADMINISTRATOR Caffeine Use Grid Caffeine Use : None DEBRA BARCENAS LPN - 07/01/2011 17:24 HEALTH CARE FACILITY ADMINISTRATOR Recreational Drug Use Grid Drug Use : None DEBRA BARCENAS LPN - 07/01/2011 17:24 HEALTH CARE FACILITY ADMINISTRATOR Psychosocial Domestic Abuse Concerns : None DEBRA BARCENAS LPN - 07/01/2011 17:24 HEALTH CARE FACILITY ADMINISTRATOR Advance Directive Advanced Directives : Yes DEBRA BARCENAS LPN - 07/01/2011 17:24 HEALTH CARE FACILITY ADMINISTRATOR Educ Needs Learning Style Preference Adult Grid Patient : Printed materials Family : Printed materials DEBRA BARCENAS LPN - 07/01/2011 17:24 HEALTH CARE FACILITY ADMINISTRATOR Source: [facility] POWERCHART Document Id: [id number] HEALTH CARE FACILITY ADMINISTRATOR!30 Miscellaneous - Conversion, Historical Provider Ser - 07/01/2011 5:23 PM HEALTH CARE FACILITY ADMINISTRATOR Obstructive Sleep Apnea Obstructive Sleep Apnea Entered On: 07/01/2011 17:24 HEALTH CARE FACILITY ADMINISTRATOR Performed On: 07/01/2011 17:23 HEALTH CARE FACILITY ADMINISTRATOR by DEBRA BARCENAS LPN BALDO Screening Known Obstructive Sleep Apnea : No DEBRA BARCENAS LPN - 07/01/2011 17:23 HEALTH CARE FACILITY ADMINISTRATOR BALDO Assessment Do you have high blood pressure or have you been told to take medication for high blood pressure? : No Frequency of Snoring : Often (1-2 times per week) Frequency of Gasping, Choking, Snorting : I don't know Neck Circumference (cm) : 44/45 Total Number of Historical Features : 0 DEBRA BARCENAS LPN - 07/01/2011 17:23 HEALTH CARE FACILITY ADMINISTRATOR Source: [facility] POWERCHART Document Id: [id number] HEALTH CARE FACILITY ADMINISTRATOR!9 Miscellaneous - Conversion, Historical Provider Ser - 07/01/2011 5:19 PM HEALTH CARE FACILITY ADMINISTRATOR Adult Ash Worker Intake/History Adult Ash Worker Intake/History Entered On: 07/01/2011 17:21 HEALTH CARE FACILITY ADMINISTRATOR Performed On: 07/01/2011 17:19 HEALTH CARE FACILITY ADMINISTRATOR by DEBRA BARCENAS LPN Intake Chief Complaint : preop-exploration/xtiqcao-6-65-2012 [place] Temperature Core : 36.8C(Converted to: 98.2DegF) Peripheral Pulse Rate : 72/min Respiratory Rate : 16/min Systolic Blood Pressure : 136mmHg Diastolic Blood Pressure : 82mmHg NIBP Mean : 100mmHg Height : 184cm(Converted to: 6ft 0inch(es), 72.44inch(es)) Actual Weight : 112.4kg(Converted to: 247lb 13oz) Dosing Weight Clinic : 112.40kg Clinic BSA : 2.40 Body Mass Index : 33.20kg/m2 DEBRA BARCENAS LPN - 07/01/2011 17:19 HEALTH CARE FACILITY ADMINISTRATOR Subjective Pain Symptoms : No DEBRA BARCENAS LPN - 07/01/2011 17:19 HEALTH CARE FACILITY ADMINISTRATOR Dependent Habits Tobacco Use/Currently Using : No Exposure to Tobacco Smoke : Care provider denies smoking in home Smoking Status : Former smoker DEBRA BARCENAS LPN - 07/01/2011 17:19 HEALTH CARE FACILITY ADMINISTRATOR Tobacco Use Grid Type : Cigarettes Last Use : 1996 DEBRA BARCENAS LPN - 07/01/2011 17:19 HEALTH CARE FACILITY ADMINISTRATOR Caffeine Use Grid Caffeine Use : None DEBRA BARCENAS LPN - 07/01/2011 17:19 HEALTH CARE FACILITY ADMINISTRATOR Recreational Drug Use Grid Drug Use : None DEBRA BARCENAS LPN - 07/01/2011 17:19 HEALTH CARE FACILITY ADMINISTRATOR Allergy Allergies (Active) Nyquil Cold Medicine Estimated Onset Date: Unspecified ; Created By: PRAVEEN KAUFFMAN; Reaction Status:Active ; Category: Drug ; Substance: Nyquil Cold Medicine ; Type: Allergy ; Updated By: PRAVEEN KAUFFMAN; Reviewed Date: 03/05/2011 10:07 CDT Source: [facility] InterAtlasCHART Document Id: [id number] HEALTH CARE FACILITY ADMINISTRATOR!30 documented in this encounter Plan of Treatment Not on filedocumented as of this encounter Visit Diagnoses Not on filedocumented in this encounter
--- OUTSIDE RECORDS SUMMARY | 2022-02-07 14:33 | XMS_ITS | Encounter Summary ---
:1960 Author Organization [facility] Address [address] [place] [address] Care Team Providers Name Role Phone Unavailable Primary Care Provider Unavailable Encounter Details Date Type Department Care Team Description 09/03/2012 Hospital Encounter HX NO MAPPING Luis Zuniga M.D. [address] [place], [place] [address] (Wo rk) Social History [...] you attend quaker or Patient refused 2021 orthodoxy services? 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 0 01/1804/13/2021 documented as of this encounter Plan of Treatment Not on filedocumented as of this encounter Visit Diagnoses Not on filedocumented in this encounter
--- OUTSIDE RECORDS SUMMARY | 2022-02-07 14:33 | XMS_ITS | Encounter Summary ---
:1960 Author Organization [facility] Address [address] [place] [address] Care Team Providers Name Role Phone Unavailable Primary Care Provider Unavailable Encounter Details Date Type Department Care Team Description 02/24/2011 - Hospital Encounter HX [facility] Roel Locke, 02/27/2011 PAWAN Campbell [address] [place], [place] [address] (Wo rk) Social History Tobacco [...] you attend synagogue or Patient refused 2021 spiritism services? 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 documented as of this encounter Medications [...] Prep Complete: NA Jewelry/Piercing Removed: NA Makeup/Nail Yi Removed: NA Oral Hygiene: Yes Preop Scrub AM of Surgery: NA Preop Scrub Night Prior to Surgery: NA Prosthesis Removed: NA Surgical Prep Verified: NA Tampon Removed: NA Wearing Patient Gown: Yes KARLY ARRIAZA RN - 02/27/2011 8:42 CDT Patient Rights Grid Blood Consent Signed: NA Surgical/Procedure Consent Signed: Yes KARLY ARRIAZA RN - 02/27/2011 8:42 CDT Family Location: [id number] [place] KARLY ARRIAZA RN - 02/27/2011 8:42 [...] EGD Correct Procedure Site/Side Verified By: Patient/responsible republican, Nurse, Site Marking: N/A Pre-Procedure Pause Verbal Confirm. of: Procedure, Site, Side, Patient ID KARLY ARRIAZA RN - 02/27/2011 8:42 CDT Source: [employer] Document Id: [id number] CDT!91 documented in this encounter Nursing Notes Karly Arriaza R.N. - 02/27/2011 8:47 AM CDT Day Surgery Admission History/Asmt Adult Day Surgery Admission History/Asmt Adult Entered On: 02/27/2011 8:50 CDT Performed On: 02/27/2011 8:47 CDT by KARLY ARRIAZA RN General Info Mode of Arrival: Ambulatory Accompanied By: Alone Chief Complaint: heartburn Preferred Communication Mode: Verbal Information Given By: Patient Languages: Urdu KARLY ARRIAZA RN - 02/27/2011 8:47 CDT [...] Assistance: None Living Situation: Home with family long term Equipment: None Sensory Deficits: None Mobility Assistance [...] CDT Discharge To, Anticipated: Home with family long term Treatments, Anticipated: None Home Equipment, Anticipated: None [...] Skin Integrity: Not intact Mucous Membrane Color: Deseret Mucous Membrane Description: Moist Skin Color: Normal for ethnicity Skin Description: Moist Skin Temperature: Warm KARLY ARRIAZA RN - 02/27/2011 8:47 CDT Source: [employer] Document Id: [id number] CDT!118 documented in this encounter OR Notes Op Note - Roel Tompkins M.D. - 02/27/2011 12:00 AM CDT [id number] Preoperative Diagnosis: Refractory GERD. Postoperative Diagnosis: Esophagitis. Procedure Performed: EGD with biopsies. Surgeon: Dr. Roel Tompkins. Anesthesia: MAC. Indications: Qhhfb-yrd-lhyc-old male with GERD, sometimes breaking through on [...] thereafter induced under deep sedation by the orthodontic assistant. The video gastroscope was inserted and advanced [...] TOMPKINS MD On: 03/03/2011 05:07 PM Source: [facility] MHSDOLBEYNONNIKOLASSYS Document Id: [id number] documented in this encounter Miscellaneous Notes Miscellaneous - Roel Tompkins M.D. - 03/05/2011 8:14 PM CDT Results Notification From: ROEL TOMPKINS MD To: KARLY ARRIAZA Sent: 03/05/2011 20:14:50 CDT ! Show up: 03/05/2011 20:12:00 CDT Subject: Results Notification Actions: Notify patient of results Due Date/Time: 03/05/2011 20:12:00 CDT Source: [facility] [employer] Document Id: [id number] Electronically signed by Hung, [facility] Water Sander [id number] at 10/20/2016 5:23 PM CDT Miscellaneous - Karly Arriaza, R.N. - 02/27/2011 10:34 AM CDT Ambulatory Patient Summary [address] [address] Visit Information Name: HUSSEIN WHITTAKER Current Date: 02/27/2011 10:34:14 Primary Care Provider: MIR BRICEÑO [facility], STOCK SELECTOR Your Medications Here is a list of [...] CERNA, Lester Lua Your Goals/Additional instructions: Source: [facility] POWERCHART Document Id: [id number] Electronically signed by Hung [facility] Water Sander [id number] at 10/20/2016 5:23 PM CDT Miscellaneous - Karly Arriaza RFarshadN. - 02/27/2011 10:34 AM CDT Ambulatory Depart Summary [id number] [place] [address] Visit Information Name: HUSSEIN WHITTAKER Current Date: 02/27/2011 10:34:13 Primary Care Provider: MIR BRICEÑO [facility], STOCK SELECTOR HUSSEIN WHITTAKER has been given the following [...] Oral once a day Additional Information: Source: [facility] POWERCHART Document Id: [id number] Electronically signed by Hung [facility] Water Sander [id number] at 10/20/2016 5:23 PM CDT Miscellaneous - [...] Cardiovascular Heart Rhythm: Regular Nail Bed Color: Deseret Edema: None KARLY ARRIAZA RN - 02/27/2011 10:12 CDT Respiratory Anesthesia Type: MAC Airway Type: None Respiratory Pattern: Regular Respirations: Unlabored All Lobes Breath Sounds: Clear KARLY ARRIAZA RN - 02/27/2011 10:12 CDT GI/ Nausea Symptoms: No Passing Flatus: No KARLY ARRIAZA RN - 02/27/2011 10:12 CDT Integumentary Integumentary Patient Stated Symptoms: None Skin Turgor: Elastic Skin Integrity: Intact Mucous Membrane Color: Deseret Mucous Membrane Description: Moist Skin Color: Normal [...] steps Fall Risk Score Hendrich II: 1 KARYL ARRIAZA RN - 02/27/2011 10:12 CDT Education General Patient Education Powergrid Topics: Discharge instructions/Medication list Individuals Taught: Patient Barriers to Learning: None evident Teaching Method: Explanation Teaching Evaluation: Verbalizes understanding KARLY ARRIAZA RN - 02/27/2011 10:12 CDT Source: [employer] Document Id: [id number] CDT!118 Miscellaneous - Karly Arriaza, R.N. - [...] Cardiovascular Heart Rhythm: Regular Nail Bed Color: Deseret Edema: None Capillary Refill: Less than 2 [...] Skin Integrity: Not intact Mucous Membrane Color: Deseret Mucous Membrane Description: Moist Skin Color: Normal [...] ARRIAZA RN - 02/27/2011 9:52 CDT Duckworth Duckworth Agitation Sedation Scale (RASS): [...] ARRIAZA RN - 02/27/2011 9:52 CDT Source: [employer] Document Id: [id number] CDT!99 documented in this encounter Plan of Treatment Not on filedocumented as of this encounter Procedures Procedure Name Priority Date/Time Associated Diagnosis Comme nts SURG [facility], [facility] Routine 02/27/2011 9:40 AM Resul ts for this , WET [facility] CDT procedure ar e in 5206 the results section. SURGICAL PATHOLOGY Routine 02/27/2011 9:40 AM Res ults for this CDT procedure are i n the results section. documented in this encounter Results Pathology Surgical Pathology, [facility] (02/27/2011 9:40 AM CDT) [facility] Method Time Signature HXSurg IV [id number] POWERCHART [facility] HXSurg IV See Comment POWERCHART [facility] Comment: RESULT: Roel Tompkins M.D. HXSurg IV [facility] See Comment POWERCHA RT Comment: [address] [address] SLIDE DISPOSITION: HXSurg IV [facility] See Comment POWER CHART Comment: [id number] A1 A. ?? Received in formalin, labeled with the patient's name and and lab eled as distal esophageal biopsy, are three pale dukes-translucent irregular soft tissues, ranging from 0.3-0.5 cm in greatest dime nsion. The specimens are submitted en toto in cassette A1. [place] by DIMITRI. Part A: ??Esophagus 1 Distal esophageal biopsy XRSR Path [facility] See Comment POWER CHART Comment: A. ??Esophagus, distal, biopsy: ??[place] esophageal mucosa with occasional eosinophils, consistent with reflux. [facility] See Comment POWER CHART Comment: RESULT: 03/01/2011 13:48 Interpreted by: Terese Benz M.D. Report electronically signed by Terese andre M.D. Transcribed by: [email or web address] 03/01/2011 11:58:4 8 Test Performed by: [facility] Dpt of Lab Med and Pathology [address] [place] [address] Computerized Table Cutter: Jimi ludwig III, M.D. Specimen (Source) Anatomical Collection Method Collection Time Re ceived Time Location / / Volume Laterality Tissue 02/27/2011 9:40 AM CDT Roel Tompkins M.D. LAB SURG PATH ORDERABLES Performing Organization Address City/State/ZIP Code Phon e Number POWERCHART HX Surg Path, Level Vi, Wet [facility] 2531 (02/27/2011 9:40 AM CDT) [facility] gist Method Time Signature HX Surg [id number] POWERCHART [facility] HX Surg See Comment POWERCHART [facility] Comment: RESULT: Roel Tompkins M.D. HX Surg [facility] See Comment POWERCH ART Comment: [address] [address] SLIDE DISPOSITION: HX Surg [facility] See Comment BERNARD RCHART Comment: [id number] A1 A. ?? Received in formalin, labeled with the patient's name and and lab eled as distal esophageal biopsy, are three pale dukes-translucent irregular soft tissues, ranging from 0.3-0.5 cm in greatest dime nsion. The specimens are submitted en toto in cassette A1. [place] d by DIMITRI. Part A: ??Esophagus 1 Distal esophageal biopsy XRSR Path HX Surg FnlDiag-[place] See Comment BERNARD RCHART Comment: A. ??Esophagus, distal, biopsy: ??[place] esophageal mucosa with occasional eosinophils, consistent with reflux. Signing Pathologist: See Comment POWERCH ART Comment: RESULT: 03/01/2011 13:48 Interpreted by: Terese Benz M.D. Report electronically signed by Terese andre M.D. Transcribed by: [email or web address] 03/01/2011 11:58:4 8 Test Performed by: [facility] Dpt of Lab Med and Pathology [address] [place] [address] Computerized Table Cutter: Jimi ludwig III, M.D. Test Performed by: [facility] Dpt of Lab Med and Pathology [address] [place] [address] Computerized Table Cutter: Jimi ludwig III, M.D. Specimen Anatomical Collection Method Collection Time Receive d Time (Source) Location / / Volume Laterality Tissue 02/27/2011 9:40 AM 1 6:20 CDT AM CDT Historical Provider LAB HISTORICAL ORDERS Performing Organization Address City/State/ZIP Code Phon e Number POWERCHART documented in this encounter Visit Diagnoses Not on filedocumented in this encounter
--- OUTSIDE RECORDS SUMMARY | 2022-02-07 14:34 | XMS_ITS | Encounter Summary ---
:1960 Author Organization [facility] Address [address] [place] [address] Care Team Providers Name Role Phone Unavailable [...] you attend confucianism or Patient refused 2021 gnosticism services? 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
--- OUTSIDE RECORDS SUMMARY | 2022-02-07 14:34 | XMS_ITS | Encounter Summary ---
:1960 Author Organization [facility] Address [address] [place] [address] Care Team Providers Name Role Phone Unavailable Primary Care Provider Unavailable Encounter Details Date Type Department Care Team Description 02/10/2009 Hospital Encounter [facility]X [facility] Lolly Shea P.A.-C. [address] [place] [address] (Wo rk) Social History Tobacco [...] you attend jain or Patient refused 2021 confucianism services? 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
--- OUTSIDE RECORDS SUMMARY | 2022-02-07 14:34 | XMS_ITS | Encounter Summary ---
:1960 Author Organization [facility] Address [address] [place] [address] Care Team Providers Name Role Phone Unavailable Primary Care Provider Unavailable Encounter Details Date Type Department Care Team Description 08/08/2009 Hospital Encounter HX [facility] INPT/OBSRV Darya Mijares M.D. [address] [place] [address] (Wo rk) Social History Tobacco [...] you attend judaism or Patient refused 2021 protestant services? Do [...] at Date Recorded Male 06/23/2021 7:46 PM SKIN CARE THERAPIST documented as of this encounter Plan of Treatment Not on filedocumented as of this encounter Visit Diagnoses Not on filedocumented in this encounter
--- OUTSIDE RECORDS SUMMARY | 2022-02-07 14:34 | XMS_ITS | Encounter Summary ---
:1960 Author Organization [facility] Address [address] [place] [address] Care Team Providers Name Role Phone Unavailable Primary Care Provider Unavailable Encounter Details Date Type Department Care Team Description 03/15/2009 Hospital Encounter [facility]X [facility] INPT[facility]BS[facility] José Miguel Vásquez M.D. [address] [place] [address] (Wo rk) Social History Tobacco Use Types [...] you attend orthodox or Patient refused 2021 gnosticist services? 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
--- OUTSIDE RECORDS SUMMARY | 2022-02-07 14:34 | XMS_ITS | Encounter Summary ---
:1960 Author Organization [facility] Address [address] [place] [address] Care Team Providers Name Role Phone Unavailable Primary Care Provider Unavailable Encounter Details Date Type Department Care Team Description 05/04/2007 Hospital Encounter HX [facility] INPT[facility]OBSRV José Miguel Vásquez M.D. [address] [place] [address] (Wo rk) Social History Tobacco Use Types [...] you attend pentecostal or Patient refused 2021 jain services? 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
--- OUTSIDE RECORDS SUMMARY | 2022-02-07 14:34 | XMS_ITS | Encounter Summary ---
:1960 Author Organization [facility] Address [address] [place] [address] Care Team Providers Name Role Phone Unavailable Primary Care Provider Unavailable Encounter Details Date Type Department Care Team Description 11/25/2006 - Hospital Encounter HX [facility] DERM SURG OP Lyndsay Love, 12/02/2006 FRANCESCA Campbell [address] [place] [address] Social History Tobacco Use Types Packs/Day Years [...] you attend nondenominational or Patient refused 2021 yazidi services? 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
--- OUTSIDE RECORDS SUMMARY | 2022-02-07 14:34 | XMS_ITS | Encounter Summary ---
:1960 Author Organization [facility] Address [address] [place] [address] Care Team Providers Name Role Phone Unavailable [...] you attend uatsdin or Patient refused 2021 moravian services? Do [...] at Date Recorded Male 06/23/2021 7:46 PM INTERVENTIONAL RADIOLOGY RN documented as of this encounter Plan of [...] Volume Narrative IIMS - 07/21/2019 7:36 PM INTERVENTIONAL RADIOLOGY RN This order has been created and auto-finalized [...]
--- OUTSIDE RECORDS SUMMARY | 2022-02-07 14:34 | XMS_ITS | Encounter Summary ---
:1960 Author Organization [facility] Address [address] [place] [address] Care Team Providers Name Role Phone Unavailable Primary Care Provider Unavailable Encounter Details Date Type Department Care Team Description 08/08/2009 Hospital Encounter [facility]X [facility] INPT[facility]BS[facility] José Miguel Vásquez M.D. [address] [place] [address] (Wo rk) Social History Tobacco Use Types [...] you attend islam or Patient refused 2021 episcopal services? 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
--- OUTSIDE RECORDS SUMMARY | 2022-02-07 14:34 | XMS_ITS | Encounter Summary ---
:1960 Author Organization [facility] Address [address] [place] [address] Care Team Providers Name Role Phone Unavailable Primary Care Provider Unavailable Encounter Details Date Type Department Care Team Description 08/10/2009 Hospital Encounter [facility]X [facility] INPT[facility]BS[facility] Lolly Shea P.A.-C. [address] [place] [address] (Wo rk) Social History Tobacco [...] attend latter day or Patient refused 2021 adventism services? 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
--- OUTSIDE RECORDS SUMMARY | 2022-02-07 14:34 | XMS_ITS | Encounter Summary ---
:1960 Author Organization [facility] Address [address] [place] [address] Care Team Providers Name Role Phone Unavailable Primary Care Provider Unavailable Encounter Details Date Type Department Care Team Description 02/10/2009 [facility] M.Racheal [address] [place] [address] (Wo rk) Social [...] you attend quaker or Patient refused 2021 druze services? Do [...] at Date Recorded Male 06/23/2021 7:46 PM CERTIFIED JUVENILE PROBATION OFFICER documented as of this encounter Plan of Treatment Not on filedocumented as of this encounter Visit Diagnoses Not on filedocumented in this encounter
--- OUTSIDE RECORDS SUMMARY | 2022-02-07 14:34 | XMS_ITS | Encounter Summary ---
:1960 Author Organization [facility] Address [address] [place] [address] Care Team Providers Name Role Phone Unavailable Primary Care Provider Unavailable Encounter Details Date Type Department Care Team Description 04/15/2007 Hospital Encounter [facility]X [facility] INPT/OBSRV José Miguel Vásquez M.D. [address] [place] [address] (Wo rk) Social History Tobacco Use Types [...] you attend synagogue or Patient refused 2021 nondenominational services? Do [...] at Date Recorded Male 06/23/2021 7:46 PM COMPOSITE LAMINATOR documented as of this encounter Plan of Treatment Not on filedocumented as of this encounter Visit Diagnoses Not on filedocumented in this encounter
--- OUTSIDE RECORDS SUMMARY | 2022-02-07 14:34 | XMS_ITS | Encounter Summary ---
:1960 Author Organization [facility] Address [address] [place] [address] Care Team Providers Name Role Phone Unavailable Primary Care Provider Unavailable Encounter Details Date Type Department Care Team Description 02/23/2007 Hospital Encounter HX [facility] INPT/OBSRV José Miguel Vásquez M.D. [address] [place] [address] (Wo rk) Social History Tobacco Use Types [...] you attend yazidi or Patient refused 2021 cheondoism services? Do [...] at Date Recorded Male 06/23/2021 7:46 PM INSIDE ACCOUNT EXECUTIVE documented as of this encounter Plan of Treatment Not on filedocumented as of this encounter Visit Diagnoses Not on filedocumented in this encounter
--- OUTSIDE RECORDS SUMMARY | 2022-02-07 14:34 | XMS_ITS | Encounter Summary ---
:1960 Author Organization [facility] Address [address] [place] [address] Care Team Providers Name Role Phone Unavailable Primary Care Provider Unavailable Encounter Details Date Type Department Care Team Description 08/08/2009 Hospital Encounter HX NO MAPPING Noe Mijares M.D. [address] [place], [place] [address] (Wo rk) Social History [...] you attend spiritism or Patient refused 2021 buddhist services? 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
--- OUTSIDE RECORDS SUMMARY | 2022-02-07 14:34 | XMS_ITS | Encounter Summary ---
:1960 Author Organization [facility] Address [address] [place] [address] Care Team Providers Name Role Phone Unavailable Primary Care Provider Unavailable Encounter Details Date Type Department Care Team Description 05/02/2009 Hospital Encounter HX NO MAPPING Noe Mijares M.D. [address] [place], [place] [address] (Wo rk) Social History [...] you attend scientologist or Patient refused 2021 mu-ism services? Do [...] at Date Recorded Male 06/23/2021 7:46 PM DYE MAKER documented as of this encounter Plan of Treatment Not on filedocumented as of this encounter Visit Diagnoses Not on filedocumented in this encounter
--- OUTSIDE RECORDS SUMMARY | 2022-02-07 14:34 | XMS_ITS | Encounter Summary ---
:1960 Author Organization [facility] Address [address] [place] [address] Care Team Providers Name Role Phone Unavailable Primary Care Provider Unavailable Encounter Details Date Type Department Care Team Description 04/06/2007 Hospital Encounter [facility]X [facility] INPT/OBSRV José Miguel Vásquez M.D. [address] [place] [address] (Wo rk) Social History Tobacco Use Types [...] attend roman catholic or Patient refused 2021 alevism services? Do [...] at Date Recorded Male 06/23/2021 7:46 PM DIGITAL EDITOR documented as of this encounter Plan of Treatment Not on filedocumented as of this encounter Visit Diagnoses Not on filedocumented in this encounter
--- OUTSIDE RECORDS SUMMARY | 2022-02-07 14:34 | XMS_ITS | Encounter Summary ---
:1960 Author Organization [facility] Address [address] [place] [address] Care Team Providers Name Role Phone Unavailable [...] you attend congregation or Patient refused 2021 gnosticist services? Do you belong to any clubs or No 12/20/2021 organizations such as congregation groups, unions, fraternal or athletic groups, or [...] at Date Recorded Male 06/23/2021 7:46 PM SIGNAL APPRENTICE documented as of this encounter Plan of Treatment Not on filedocumented as of this encounter Visit Diagnoses Not on filedocumented in this encounter
--- OUTSIDE RECORDS SUMMARY | 2022-02-07 14:34 | XMS_ITS | Encounter Summary ---
:1960 Author Organization [facility] Address [address] [place] [address] Care Team Providers Name Role Phone Unavailable Primary Care Provider Unavailable Encounter Details Date Type Department Care Team Description 02/10/2009 Hospital Encounter [facility]X [facility] INPT[facility]BS[facility] Lolly Shea P.A.-C. [address] [place] [address] (Wo rk) Social History Tobacco [...] you attend faith or Patient refused 2021 catholic services? Do [...] at Date Recorded Male 06/23/2021 7:46 PM CASE ADVOCATE documented as of this encounter Plan of Treatment Not on filedocumented as of this encounter Visit Diagnoses Not on filedocumented in this encounter
--- OUTSIDE RECORDS SUMMARY | 2022-02-07 14:34 | XMS_ITS | Encounter Summary ---
:1960 Author Organization [facility] Address [address] [place] [address] Care Team Providers Name Role Phone Unavailable Primary Care Provider Unavailable Encounter Details Date Type Department Care Team Description 07/26/2009 Hospital Encounter HX [facility] INPT/OBSRV José Miguel Vásquez M.D. [address] [place] [address] (Wo rk) Social History Tobacco Use Types [...] you attend taoism or Patient refused 2021 restorationism services? 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
--- OUTSIDE RECORDS SUMMARY | 2022-02-07 14:34 | XMS_ITS | Encounter Summary ---
:1960 Author Organization [facility] Address [address] [place] [address] Care Team Providers Name Role Phone Unavailable Primary Care Provider Unavailable Encounter Details Date Type Department Care Team Description 05/02/2009 Hospital Encounter HX NO MAPPING Noe Mijares M.D. [address] [place], [place] [address] (Wo rk) Social History [...] you attend confucianism or Patient refused 2021 anglican services? Do [...] at Date Recorded Male 06/23/2021 7:46 PM MOTEL KEEPER documented as of this encounter Plan of Treatment Not on filedocumented as of this encounter Visit Diagnoses Not on filedocumented in this encounter
--- OUTSIDE RECORDS SUMMARY | 2022-02-07 14:34 | XMS_ITS | Encounter Summary ---
:1960 Author Organization [facility] Address [address] [place] [address] Care Team Providers Name Role Phone Unavailable Primary Care Provider Unavailable Encounter Details Date Type Department Care Team Description 04/17/2009 Hospital Encounter HX [facility] INPT/OBSRV José Miguel Vásquez M.D. [address] [place] [address] (Wo rk) Social History Tobacco Use Types [...] you attend jainism or Patient refused 2021 anabaptist services? 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
--- OUTSIDE RECORDS SUMMARY | 2022-02-07 14:34 | XMS_ITS | Encounter Summary ---
:1960 Author Organization [facility] Address [address] [place] [address] Care Team Providers Name Role Phone Unavailable Primary Care Provider Unavailable Encounter Details Date Type Department Care Team Description 05/02/2009 Hospital Encounter HX [facility] INPT/OBSRV Darya Mijares M.D. [address] [place] [address] (Wo rk) Social History Tobacco [...] you attend scientologist or Patient refused 2021 latter-day services? Do [...] at Date Recorded Male 06/23/2021 7:46 PM FOUNDATION DIRECTOR documented as of this encounter Plan of Treatment Not on filedocumented as of this encounter Visit Diagnoses Not on filedocumented in this encounter
--- OUTSIDE RECORDS SUMMARY | 2022-02-07 14:36 | XMS_ITS | Encounter Summary ---
:1960 Author Organization [facility] Address [address] [place] [address] Care Team Providers Name Role Phone Racheal Vásquez MD Primary Care Provider Encounter Details Date Type Department Care Team Description 05/30/2021 Ancillary Procedure Arun Garcia Radiolo gy [address] [place] [address] Social History Tobacco Use Types [...] Contusion of left Results for this LEFT EXPERIMENTAL ASSEMBLER knee, initial procedure are in encounter the results section. documented in this encounter Results X-ray knee 4+ views left (05/30/2021 2:10 PM EXPERIMENTAL ASSEMBLER) Anatomical Region Laterality Modality Lower Extremities, Knee Left Radiographic Denisse ging Specimen (Source) Anatomical Collection Method Collection Time Re ceived Time Location / / Volume Laterality 05/30/2021 2:10 PM EXPERIMENTAL ASSEMBLER Impressions 05/30/2021 2:24 PM EXPERIMENTAL ASSEMBLER IMPRESSION: KNEE COMPLETE LEFT (MIN 4 VIEWS) [...] or blastic lesion. Narrative 05/30/2021 2:24 PM EXPERIMENTAL ASSEMBLER INDICATION: left knee pain, contusion 05/30/21 and [...] or lytic or blastic lesion. Cheryl Jean FURNITURE FINISHER, DIESEL BUS MECHANIC IMG XR PROCEDURES documented in this encounter Visit Diagnoses Not on filedocumented in this encounter Care Teams Deburring Technician Relationship Specialty Start Date End Date Racheal Vásquez MD PCP - General Family Medicine 04/05/[address] [place] [address] documented as of this encounter
--- OUTSIDE RECORDS SUMMARY | 2022-02-07 14:36 | XMS_ITS | Encounter Summary ---
:1960 Author Organization Address [address] [place] [address] Care Team Providers Name Role Phone Racheal Vásquez MD Primary Care Provider Reason for Referral Consultation (Routine) - Closed Specialty Diagnoses / Procedures Referred By Contact Refer red To Contact Sports Medicine Diagnoses Contusion of left knee, initial encounter Cheryl Jean APRN, CNP [address] [place] [address] Referral ID Status Reason Start Date Expiration Date Visits V isits Requested Authorized [id number] Closed Specialty 05/30/2021 11/26/2021 1 1 Services Required E BUILDER Reason for Visit Reason Comments W/C DOI 05/30/2021 Left knee Encounter Details Date Type Department Care Team Description 05/30/2021 Office Visit Arun Garcia Cheryl Jean, Contusion of left [address] [place] knee, [place] [address] [address] encounter (Primary Dx) [phone] [place] [address] Social History Tobacco Use Types Packs/Day Years Used Date Never Smoker Smokeless Tobacco: Never Used Alcohol Use Standard Drinks/Week Comments Yes 2 (1 standard drink = 0.6 oz pure alcoho l) Sex Assigned at Date Recorded Not on file documented as of this encounter Last Filed Vital Signs Vital Sign Reading Time Taken Comments Blood Pressure 116/72 05/30/2021 1:34 PM STAGE BUILDER Pulse 82 05/30/2021 1:34 PM STAGE BUILDER Temperature 36.8 ??C (98.2 ??F) 05/30/2021 1:34 PM STAGE BUILDER Respiratory Rate 18 05/30/2021 1:34 PM STAGE BUILDER Oxygen Saturation 96% 05/30/2021 1:34 PM STAGE BUILDER Inhaled Oxygen Concentration - - Weight 118 kg (261 lb) 05/30/2021 1:34 PM STAGE BUILDER Height 182.9 cm (6' 0.01) 05/30/2021 1:34 PM STAGE BUILDER Body Mass Index 35.39 05/30/2021 1:34 PM STAGE BUILDER documented in this encounter Patient Instructions Patient InstructionsTrick Jean APRN, WILDLIFE POLICY PROFESSIONAL - 05/30/2021 1:40 PM CST Images from [...] health care provider. General instructions ?? Take nxdl-igp-ykgcala and prescription medicines only as told by [...] provider. Document Revised: 09/17/2019 Document Reviewed: 09/17/2019 [employer] Patient Education ?? 2020 [employer] E BUILDER documented in this encounter Progress Notes Cheryl Jean APRN, CNP - 05/30/2021 1:40 PM CST Images from the original note were not included. Work Comp - Estab Patient Subjective Patient ID: Hussein Whittaker is a 60 y.o. male. Chief Complaint Patient presents with ??? W/C DOI 05/30/2021 Left knee HPI The patient presents to the [facility] for left knee contusion today; 05/30/21 at work. He tripped at work and landed on his left knee. 1 week ago he also tripped and banged his left knee on the steps. 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 He does have a mild limp, and difficulty with flexion of the knee. Pain 5/10 at present. The following portions of the patient's chart were reviewed in this encounter and updated as appropriate: Tobacco Allergies Meds Med Hx Surg Hx Fam Hx Allergies Allergen Reactions ??? Ibuprofen Hives Green capsules only ??? Nyquil Severe Cold-Flu [Hzgzecnyq-Niibidajhc-Jt-Apap] Hives Current Outpatient Medications: ??? hydroCHLOROthiazide (HYDRODIURIL) [...] health care provider. General instructions ?? Take zoww-ogq-hkudchu and prescription medicines only as told by [...] provider. Document Revised: 09/17/2019 Document Reviewed: 09/17/2019 [employer] Patient Education ?? 2020 [employer] E BUILDER documented in this encounter Plan of Treatment Scheduled Referrals Name Type Priority Associated Order Schedule Diagnoses Ambulatory referral Outpatient Referral Routine Contusion of l eft Ordered: to Sports Medicine knee, initial 05/30/19 22 encounter documented as of this encounter Procedures Procedure Name Priority Date/Time Associated Diagnosis Comme nts XR KNEE 4+ VIEWS Today 05/30/2021 2:10 PM Contusion of left Results for this LEFT STAGE BUILDER knee, initial procedure are in encounter the results section. documented in this encounter Results X-ray knee 4+ views left (05/30/2021 2:10 PM STAGE BUILDER) Anatomical Region Laterality Modality Lower Extremities, Knee Left Radiographic Denisse ging Specimen (Source) Anatomical Collection Method Collection Time Re ceived Time Location / / Volume Laterality 05/30/2021 2:10 PM STAGE BUILDER Impressions 05/30/2021 2:24 PM STAGE BUILDER IMPRESSION: KNEE COMPLETE LEFT (MIN 4 VIEWS) [...] or blastic lesion. Narrative 05/30/2021 2:24 PM STAGE BUILDER INDICATION: left knee pain, contusion 05/30/21 and 1 week ago. work comp COMPARISON: None available Procedure Note Cyndi Cardeans MD - 05/30/2021 INDICATION: left knee pain, [...] or lytic or blastic lesion. Cheryl Jean GRADUATING MACHINE OPERATOR, WILDLIFE POLICY PROFESSIONAL IMG XR PROCEDURES documented in this encounter Visit Diagnoses Diagnosis Contusion of left knee, initial encounte r - Primary documented in this encounter Care Teams Petroleum Refining Equipment Operator Relationship Specialty Start Date End Date Racheal Vásquez MD PCP - General Family Medicine 04/05/[address] [place] [address] documented as of this encounter
--- OUTSIDE RECORDS SUMMARY | 2022-02-07 14:36 | XMS_ITS | Encounter Summary ---
:1960 Author Organization [facility] Address [address] [place] [address] Care Team Providers Name Role Phone Racheal Vásquez MD Primary Care Provider Reason for Visit Reason Onset Date Comments Colonoscopy referral status 03/13/2021 Encounter Details Date Type Department Care Team Description 03/13/2021 Telephone Arun Garcia Racheal Vásquez Colonoscopy referral [address] [place] status [place], [place] [address] [phone] [place] [address] Social History Tobacco Use Types Packs/Day Years Used Date Never Smoker Smokeless Tobacco: Never Used Alcohol Use Standard Drinks/Week Comments Yes 2 (1 standard drink = 0.6 oz pure alcoho l) Sex Assigned at Date Recorded Not on file documented as of this encounter Miscellaneous Notes Telephone Encounter - Dian Bacon - 03/14/2021 11:23 AM CDT Referral and face sheet faxed to [facility] Colonoscopy scheduling as requested. Telephone Encounter - Katey Botello LPN - 03/14/2021 10:12 AM CDT Please resend to [facility] today. Telephone Encounter - Dian Bacon - 03/13/2021 4:14 PM CDT Pt called stating it has been just over a week and he was told to call if he has not heard anything regarding his colonoscopy referral. Please call Pt at [phone] to advise. documented in this encounter Plan of Treatment Not on filedocumented as of this encounter Visit Diagnoses Not on filedocumented in this encounter Care Teams Radio Survey Worker Relationship Specialty Start Date End Date Racheal Vásquez MD PCP - General Family Medicine 04/05/19 [address] [place] [address] documented as of this encounter
--- OUTSIDE RECORDS SUMMARY | 2022-02-07 14:36 | XMS_ITS | Encounter Summary ---
:1960 Author Organization [facility] Address [address] [place] [address] Care Team Providers Name Role Phone Racheal Vásquez MD Primary Care Provider Reason for Referral Consultation (Routine) - Authorized Specialty Diagnoses / Procedures Referred By Contact Refer red To Contact Orthopedic Surgery Diagnoses Other secondary osteoarthritis of left knee Eliceo Damon [facility] Orthopedics MD [address] [place] [address] [place] [address] Referral ID Status Reason Start Expiration Visits Visits Date Date Requested Authorized [id number] Authorized Specialty 06/05/2021 06/05/2022 1 1 Services Required TAL CUTTER Reason for Visit Reason Comments Knee Pain left Consultation (Routine) - Closed Specialty Diagnoses / Procedures Referred By Contact Refer red To Contact Sports Medicine Diagnoses Contusion of left knee, initial encounter Cheryl Jean, SHOULDER BONER, DIRECTOR CALL [address] [place] [address] Referral ID Status Reason Start Date Expiration Date Visits V isits Requested Authorized [id number] Closed Specialty 05/30/2021 11/26/2021 1 1 Services Required Encounter Details Date Type Department Care Team Description 06/05/2021 Office Visit Eliceo Adams Other secondary [address] [facility] MD [place] [address] [address] [facility] knee (Primary Dx) [phone] [place] [address] Social History Tobacco Use Types Packs/Day Years Used Date Never Smoker Smokeless Tobacco: Never Used Alcohol Use Standard Drinks/Week Comments Yes 2 (1 standard drink = 0.6 oz pure alcoho l) Sex Assigned at Date Recorded Not on file documented as of this encounter Last Filed Vital Signs Vital Sign Reading Time Taken Comments Blood Pressure 121/75 06/05/2021 4:15 PM CRYSTAL CUTTER Pulse - - Temperature - - Respiratory [...] partial meniscectomy of the left knee at [facility] approximately 8 years ago, this was the [...] Jean for the referral to sports medicine. TAL CUTTER documented in this encounter Progress Notes Eliceo Damon MD - 06/05/2021 4:00 PM CST Subjective Patient ID: Hussein Whittaker is a 60 y.o. male. No chief complaint on file. HPI This is a 60 year old right hand dominant male who presents today for left knee pain. He was referred here by Cheryl Hak, SHOULDER BONER, DIRECTOR CALL. He works at [employer]. This is a work comp injury. He [...] file. Allergies: Ibuprofen and Nyquil severe cold-flu [agyridong-mcuffyvydq-ox-apap] Social History: Social History Occupational History ??? [...] Reading Date Result Priority Cyndi Cardenas MD [phone] 05/30/2021 Narrative & Impression INDICATION: left knee [...] partial meniscectomy of the left knee at [facility] approximately 8 years ago, this was the [...] therefore may contain errors that went unnoticed. TAL CUTTER Cheryl Jean APRN, CNP - 06/05/2021 4:00 PM CST Reviewed TAL CUTTER documented in this encounter Plan of Treatment Scheduled Referrals Name Type Priority Associated Diagnoses Order S chedule Ambulatory referral Outpatient Referral Routine Other secondar y Ordered: to Orthopedic osteoarthritis of left 05/19 Surgery knee documented as of this encounter Visit Diagnoses Diagnosis Other secondary osteoarthritis of left k nee - Primary documented in this encounter Care Teams Applications Programmer Analyst Relationship Specialty Start Date End Date Racheal Vásquez MD PCP - General Family Medicine 04/05/[address] [place] [address] documented as of this encounter
--- OUTSIDE RECORDS SUMMARY | 2022-02-07 14:36 | XMS_ITS | Encounter Summary ---
:1960 Author Organization [facility] Address [address] [place] [address] Care Team Providers Name Role Phone Racheal Vásquez MD Primary Care Provider Encounter Details Date Type Department Care Team Description 05/03/2021 Telephone [place] Racheal Vásquez MD [address] [place], [place] [address] [place], [place] [phone] (Wo rk) Social History Tobacco Use Types [...] AM CST Left detailed message for patient. [facility]ALTH [facility] Telephone Encounter - Shannan Santana RN - 05/03/2021 8:18 AM CST [facility] Telephone Encounter - Shannan Santana RN - 05/03/2021 8:07 AM CST ----- Message from Racheal Vásquez MD sent at 05/02/2021 4:39 PM HOME HEALTH [facility]N ----- Let Talon know this his BP is very good and I have renewed his Rx's for his BP meds. I also renewed his Rx for Prilosec if he needs this as well. If not he does not need to pick it up ----- Message ----- From: Katey Botello LPN Sent: 05/02/2021 3:33 PM HOME HEALTH [facility] To: Racheal Vásquez MD HEALTH [facility]N documented in this encounter Plan of Treatment Not on filedocumented as of this encounter Visit Diagnoses Not on filedocumented in this encounter Care Teams Child Care Attendant School Relationship Specialty Start Date End Date Racheal Vásquez MD PCP - General Family Medicine 04/05/[address] [place] [address] documented as of this encounter
--- OUTSIDE RECORDS SUMMARY | 2022-02-07 14:36 | XMS_ITS | Encounter Summary ---
:1960 Author Organization [facility] Address [address] [place] [address] Care Team Providers Name Role Phone Racheal Vásquez MD Primary Care Provider Reason for Visit Reason Comments Blood Pressure Check Encounter Details Date Type Department Care Team Description 05/02/2021 Clinical Support Arun Garcia [address] [place] [address] Social History Tobacco Use Types Packs/Day Years Used Date Never Smoker Smokeless Tobacco: Never Used Alcohol Use Standard Drinks/Week Comments Yes 2 (1 standard drink = 0.6 oz pure alcoho l) Sex Assigned at Date Recorded Not on file documented as of this encounter Last Filed Vital Signs Vital Sign Reading Time Taken Comments Blood Pressure 102/72 05/02/2021 3:30 PM MANAGER INTERMEDIATE Pulse 86 05/02/2021 3:30 PM MANAGER INTERMEDIATE Temperature - - Respiratory Rate - - [...] Is this possible. Pharmacy: Family Katja Garcia GER INTERMEDIATE Racheal Vásquez MD - 05/02/2021 3:20 PM CST Let Ray know this his BP is very good and I have renewed his Rx's for his BP meds. I also renewed his Rx for Prilosec if he needs this as well. If not he does not need to pick it up GER INTERMEDIATE Shannan Santana RN - 05/02/2021 3:20 PM CST LMTC GER INTERMEDIATE documented in this encounter Plan of Treatment Not on filedocumented as of this encounter Visit Diagnoses Not on filedocumented in this encounter Care Teams Digital Sales Representative Relationship Specialty Start Date End Date Racheal Vásquez MD PCP - General Family Medicine 04/05/[address] [place] [address] documented as of this encounter
--- OUTSIDE RECORDS SUMMARY | 2022-02-07 14:36 | XMS_ITS | Encounter Summary ---
:1960 Author Organization [facility] Address [address] [place] [address] Care Team Providers Name Role Phone Racheal Vásquez MD Primary Care Provider Reason for Referral Consultation (Routine) - Authorized Specialty Diagnoses / Procedures Referred By Contact Refer red To Contact Diagnoses Colon cancer screening Racheal Vásquez MD [facility] [address] [place] [address] [place] [address] Phone: Fax: Referral ID Status Reason Start Date Expiration Date Visits V isits Requested Authorized [id number] Authorized 03/05/2021 03/05/2022 1 1 Reason for Visit Reason Comments Hypertension Discuss Colonoscopy Encounter Details Date Type Department Care Team Description 03/05/2021 Office Visit Racheal Bernabe Encounter for wellness exami nation in adult (Primary Dx); [address] [place] Primary hypertension; [place], [place] [address] Colon cancer screening [phone] [place] [address] Social History Tobacco Use Types Packs/Day Years [...] 41 years at a company here in [facility] called [employer]. His works at a [employer] in [place] FAMILY HISTORY his father at age 93 [...] time. He prefers having this done in [facility] site. HEMATURIA I actually saw him quite a few years ago when I was working at the other clinic here in [facility] he had a full and complete evaluation [...] solution; Please follow the directions on your [facility] colonoscopy prep sheet. - Ambulatory External Referral The overall assessment is encounter for wellness evaluation with primary diagnosis of hypertension We will start him on hydrochlorothiazide lisinopril he was given 3 months worth we have asked him come back to the office before the end of the year for repeat examination blood pressure check and appropriate lab testing. We will send to the [facility] a request for him to have a [...] colon documented in this encounter Care Teams Lead Driver Relationship Specialty Start Date End Date Racheal Vásquez MD PCP - General Family Medicine 04/05/[address] [place] [address] documented as of this encounter
--- OUTSIDE RECORDS SUMMARY | 2022-02-07 14:36 | XMS_ITS | Encounter Summary ---
:1960 Author Organization [facility] Address [address] [place] [address] Care Team Providers Name Role Phone Racheal Vásquez MD Primary Care Provider Reason for Visit Reason Comments Immunizations Encounter Details Date Type Department Care Team Description 04/05/2019 Immunization [place] Flu vaccine need (Primary [address] Dx) [place], [place] [address] Social History Tobacco Use Types Packs/Day Years Used Date Never Assessed Sex Assigned at Date Recorded Not on file documented as of this encounter Progress Notes Renetta Haji RN - 04/05/2019 4:10 PM CST Tolerated well. No fever. No previous reaction to flu vaccine. F DRAFTER documented in this encounter Plan of Treatment Not on filedocumented as of this encounter Visit Diagnoses Diagnosis Flu vaccine need - Primary documented in this encounter Care Teams Last Remodeler Repairer Relationship Specialty Start Date End Date Racheal Vásquez MD PCP - General Family Medicine 04/05/[address] [place] [address] documented as of this encounter
--- OUTSIDE RECORDS SUMMARY | 2022-02-07 14:36 | XMS_ITS | Clinical Summary ---
:1960 Author Organization Address [address] [place] [address] Care Team Providers Name Role Phone Racheal Vásquez MD Primary Care Provider Allergies Active Allergy Reactions Severity Noted Date Comments Ibuprofen Hives 04/08/2019 Green capsules only Urhsrqtcz-Sknuyljvjk-Zs-Apap Hives 03/05/2011 Medications Medication Sig Dispensed Refills [...] Comments Blood Pressure 121/75 06/05/2021 4:15 PM PRODUCTION LINE SOLDERER Pulse 82 05/30/2021 1:34 PM PRODUCTION LINE SOLDERER Temperature 36.8 ??C (98.2 ??F) 05/30/2021 1:34 PM PRODUCTION LINE SOLDERER Respiratory Rate 18 05/30/2021 1:34 PM PRODUCTION LINE SOLDERER Oxygen Saturation 96% 05/30/2021 1:34 PM PRODUCTION LINE SOLDERER Inhaled Oxygen Concentration - - Weight 118 kg (261 lb) 05/30/2021 1:34 PM PRODUCTION LINE SOLDERER Height 182.9 cm (6' 0.01) 05/30/2021 1:34 PM PRODUCTION LINE SOLDERER Body Mass Index 35.39 05/30/2021 1:34 PM PRODUCTION LINE SOLDERER Plan of Treatment Health Maintenance Due Date Last Done Comments Pneumococcal Vaccine: 1966 Pediatrics (0 to 5 Years) and At-Risk Patients (6 to 64 Years) (1 - PCV) Zoster Vaccines (1 of 2) 1977 COVID-19 Vaccine (4 - Booster 08/09/2021 04/11/2021, for Pfizer series) 09/05/2020, 08/10/2020 Colonoscopy 04/18/2026 04/18/2021 HPV Vaccines Aged Out No longer eligib le based on patient's age to complete this to the medical center Insurance Payer Benefit Plan / Subscriber ID Effective Dates Phone Addre ss Type Group TRAVELERS WC TRAVELERS [id number] 2021-Prese [id number] [place] [address] BCBS OF BCBS OF [id number] 2015-Presen [address] [address] [place] [address] Care Teams Engine Lathe Set Up Operator Relationship Specialty Start Date End Date Racheal Vásquez MD PCP - General Family Medicine 04/05/[address] [place] [address]
--- OUTSIDE RECORDS SUMMARY | 2022-02-07 14:36 | XMS_ITS | Encounter Summary ---
:1960 Author Organization [facility] Address [address] [place] [address] Care Team Providers Name Role Phone Racheal Vásquez MD Primary Care Provider Encounter Details Date Type Department Care Team Description 05/02/2021 Orders Only [place] Gastroesophageal reflux dise ase without esophagitis (Primary Dx); [address] [facility] [address] [place] Primary hypertension [place], [place] [address] [address] [place] [phone] [place] [address] Social History Tobacco Use Types Packs/Day Years [...] hypertension documented in this encounter Care Teams B2B Outside Sales Representative Relationship Specialty Start Date End Date Rahceal Vásquez MD PCP - General Family Medicine 04/05/[address] [place] [address] documented as of this encounter
--- OUTSIDE RECORDS SUMMARY | 2022-02-07 14:36 | XMS_ITS | Encounter Summary ---
:1960 Author Organization [facility] Address [address] [place] [address] Care Team Providers Name Role Phone Racheal Váqsuez MD Primary Care Provider Reason for Visit Reason Onset Date Comments HTN registry 202005/01/2021 Encounter Details Date Type Department Care Team Description 05/01/2021 Telephone Arun Garcia Racheal Vásquez, HTN registry [address] [place], [place] [address] [phone] [place] [address] (Wo rk) Social History Tobacco Use Types [...] Nurse only BP CK scheduled for Friday05/02/21. BOX OPERATOR Telephone Encounter - Matilde Morel MA [...] is still seeing Dr. [place] Vásquez. LMTCB BOX OPERATOR documented in this encounter Plan of Treatment Not on filedocumented as of this encounter Visit Diagnoses Not on filedocumented in this encounter Care Teams Makeup Sales Advisor Relationship Specialty Start Date End Date Racheal Vásquez MD PCP - General Family Medicine 04/05/[address] [place] [address] documented as of this encounter
[2022-02-07 21:58] LABS: Chloride* 97 mmol/L (96-114); Potassium* 4.5 mmol/L (3.6-5.1); Sodium* 137 mmol/L (135-149)
[2022-02-07 22:01] LABS: Blood Urea Nitrogen* 23 mg/dL (7-30); Carbon Dioxide* 29 mmol/L (20-32); Creatinine* 1.1 mg/dL (0.5-1.5); Estimated Glomerular Filt Rate 75 ml/min; Glucose* 105 mg/dL (60-115)
[2022-02-07 22:02] LABS: Basophils Absolute Auto 0.05 K/uL (0.00-0.30); Basophils Percent Auto 0.6 % (0.0-3.0); Calcium* 9.8 mg/dL (8.4-10.6); Eosinophils Absolute Auto 0.14 K/uL (0.00-0.50); Eosinophils Percent Auto 1.8 % (0.0-7.0); Hematocrit 43.6 % (37.0-53.0); Hemoglobin* 14.6 gm/dL (13.5-17.5); Immature Granulocytes Abs Auto 0.01 K/uL (0.00-0.30); Lymphocytes Absolute Auto 1.99 K/uL (0.90-2.90); Lymphocytes Percent Auto 25.3 % (20-44); Mean Corpuscular HGB Conc 34 gm/dL (32-36); Mean Corpuscular Hemoglobin 31 pg (26-34); Mean Corpuscular Volume 94 fL (80-100); Monocytes Percent Auto 8.7 % (0.0-11.0); Neutrophils Absolute Auto 4.99 K/uL (1.7-7.0); Neutrophils Percent Auto 63.5 % (42.0-72.0); Platelet Count* 247 K/uL (140-440); Red Blood Count 4.66 m/uL (4.30-5.90); White Blood Count* 7.86 K/uL (4.50-11.00)
[2022-02-07 22:12] LABS: Slide Review Reflex No
== END 2022-02-07 14:05 | disposition home or self-care (01) ==
LOC: KYNREF 14:06
PROVIDERS: PCP Nurse Practitioner Family; Visit Provider Nurse Practitioner Family
DX: Z01.818 Encounter for other preprocedural examination (principal)
CPT/HCPCS: 36415; 80048; 85025

== ENCOUNTER 2022-02-13 09:09 | Day surgery (SDC) | payer BC, SELFPAY ==
[2022-02-13] VITALS (12 sets, daily range): BP systolic 118–137; BP diastolic 70–90; PULSE 62–75; RESP 16–20; TEMP 36.3–36.9; O2SAT 92–99; BMI 37.0
[2022-02-13] MEDS: fentaNYL 100 MCG/2 ML inj IVP (09:12)
[2022-02-13] MEDS: LACTATED RINGERS 1000 ML 1,000 ML 100 ML IV (09:30)
[2022-02-13] MEDS: MIDAZOLAM HCL 1 MG/ML inj IVP (11:23)
--- NOTE | 2022-02-13 11:32 | SUR.PREOP ---
TIME?OUT:?1121 PT/RN/MDA?VERIFICATION?OF?SURGICAL?SITE left shoulder,?PROCEDURE left shoulder block,?AND?CONSENT OBTAINED?PRIOR?TO?INVASIVE?PROCEDURE.
--- NOTE | 2022-02-13 11:32 | W.PM.NB ---
Nerve Block Nerve Block Time Seen by Provider: 11:32 Date Seen: 02/13/22 Type of block requested by surgeon for post-operative analgesia: interscalene Side: left Time out performed: Yes Verification of patient name: Yes Verification of date of : Yes Site marking: site marked Name of person performing procedure: Yanick Assistants, if any: Michael Continuous monitoring Was continuous monitoring of O2 sat, B/P, detail assembler, recorded every 15 minutes?: Yes Procedure Checklist: sterile prep, needles and gloves Ultrasound guided. Images saved: Yes Medications given in 5ml increments after negative aspiration: Marcaine %: 0.5 mL: 20 Needle gauge: 22 Decadron (mg): 10 Precedex (mcg): 25 Patient tolerated procedure well: Yes Block Charges Block Charge (with Pro Fee): Brachial Plexus Use of Ultrasound Machine for Block: Yes- US Guidance/pain block
[2022-02-13] MEDS: SODIUM CHLORIDE IRRIG SOLUTION 3,000 ML, EPINEPHrine 1 MG IRRIGATION (14:25)
--- NOTE | 2022-02-13 14:25 | P.ORPRC_ITS ---
Procedure Note Date of procedure: 02/13/22 Procedure: PREOPERATIVE DIAGNOSES: 1. Left shoulder rotator cuff tear full-thickness supraspinatus and infraspinatus 2. Left shoulder AC degenerative joint disease 3. Left shoulder long of the biceps tendinosis with partial-thickness tearing and tenosynovitis 4. Left shoulder subacromial impingement syndrome. POSTOPERATIVE DIAGNOSES: 1. Left shoulder rotator cuff tear full-thickness supraspinatus and infraspinatus 2. Left shoulder AC degenerative joint disease 3. Left shoulder long of the biceps tendinosis with partial-thickness tearing and tenosynovitis 4. Left shoulder anterior and superior labral degenerative fraying tearing 5. Left shoulder subacromial impingement syndrome. NAME OF OPERATION: 1. Left shoulder arthroscopic rotator cuff evnpcd-rlxr-vnrhgckjt supraspinatus and infraspinatus with full breath tearing and mild retraction 2. Left shoulder arthroscopic distal clavicle excision 3. Left shoulder arthroscopic limited glenohumeral debridement 4. Left shoulder arthroscopic long head of biceps tenotomy 5. Left shoulder arthroscopic bursectomy, subacromial decompression/partial acromioplasty. SURGEON: Gabriel Dominguez MD INSURANCE PREMIUM AUDITOR: Eduin Jorge PA-C. Of note, a skilled assistant restaurant general manager was critical for this case to aide in patient positioning, suture manipulation, arm positioning, instrument positioning, and closure. ANESTHESIA: General plus preoperative supraclavicular block. EBL: 50 mL IMPLANTS: Arthrex 4.75 mm BioComposite SwiveLock suture anchor (x3- medial row anchors); 5 with 5 mm BioComposite SwiveLock suture anchor (x2- lateral row anchors). COMPLICATIONS: None evident INDICATIONS: The patient is a pleasant, 61-year-old male who has experienced left shoulder pain that has been increasing in recent time. Physical exam and imaging were consistent with a rotator cuff tear. Given their findings, as well as the weakness and pain, and inadequate response to nonoperative management, recommendation was made for surgery. FINDINGS: Exam under anesthesia revealed stable shoulder with excellent range of motion. The diagnostic arthroscopy revealed healthy chondral surfaces of the glenohumeral joint. The Subscapularis tendon was intact and with a healthy attachment. The long head of the biceps tendon was torn and high-grade partial- thickness manner with fair to poor tendon quality. The superior rotator cuff tendon was found to be torn full-thickness involving the entire supraspinatus and infraspinatus with retraction to mid humeral head. The labrum was degeneratively frayed in the anterior and superior aspects. No loose bodies were identified within the pouch or subscapularis recess. PROCEDURE: Following a thorough discussion of risks, benefits, and alternatives, consent was obtained and the left shoulder was marked. The patient was brought to the operating room and placed supine on the operating table. Induction of anesthesia was completed after preoperative supraclavicular block was administered in preop holding. Appropriate time out was performed identifying proper patient, site, and procedure. 2 g IV Ancef was administered within 1 hour of incision preoperatively. The left upper extremity was prepped and draped in the appropriate sterile fashion using ChloraPrep prep. This was after the patient was positioned in the beach chair with their head in neutral alignment and all bony prominences well padded. The shoulder was insufflated with 20mL of normal saline via an 18g spinal needle from a posterior approach. An 11 blade skin incision allowed a blunt trochar to be inserted and diagnostic arthroscopy to be performed with the findings as noted above. An anterior portal was established with an outside in technique. This allowed the probe to be inserted and confirm the diagnostic arthroscopic findings. The shaver was then inserted and allowed debridement of the anterior and superior labrum. Additionally, the long of the biceps was released from the bicipital tuberosity for arthroscopic tenotomy. The stump was debrided with a shaver. Following this, the upper border subscapularis was probed and found to be stable. Thereafter, the subacromial space was entered. Here, a complete bursectomy and p artial acromioplasty/subacromial decompression was performed with a combination of radiofrequency ablator, the shaver, and a 5.5 mm bur. Additionally, distal clavicle excision was performed with the bur. 8 mm of distal clavicle was resected based on the width of our bur. Further inspection of the supraspinatus and infraspinatus rotator cuff was performed. This identified the tear as noted above. The margins of the tear were debrided, and the greater tuberosity was debrided with a combination of the apollo cautery, shaver, and bur on reverse setting. After gentle decortication, an expanded speed bridge configuration (3 anchors x 2 anchors) with a medial anthony was engaged. 3 medial anchors were placed and the sutures were passed with a fiber link. The eyelet suture tails were then retrieved and tied and cinched down for the medial anthony purpose. On arthroscopic knot was tied for the mid to posterior medial anthony to secure this and the tails from the anterior and posterior anchors were then brought to the lateral row providing tension on the medial anthony and reapproximation/footprint compression. A tail from each of the medial row anchor FiberTapes were then brought to a lateral row anchor along with 1 of the tails from the medial anthony. Excellent reapproximation of the tissue to the greater tuberosity was achieved with broad footprint compression. Prior to anchor hi lo driver removal, the eyelet sutures were tugged on for each anchor and found that the anchor had excellent stability within the bone. The shoulder was placed through range of motion and found to be stable. The rotator cuff was re-probed and found to be stable. Instruments were removed. Excess fluid was drained, closure performed with 4-0 Monocryl and Steri-Strips. Dressings were applied. Sling was applied. The patient was awoken from anesthesia and transferred to the PACU in stable condition. A skilled assistant restaurant general manager was critical for this case to aid in patient positioning, limb positioning, skill to manipulate arthroscopic instruments and camera, suture management, patient safety, and closure. PLAN: 1. Elbow, forearm, wrist and digit range of motion of operative extremity as tolerated. 2. Encouraged ice. 3. Percocet for pain as needed. 4. Sling at all times except for ROM and showering. 5. Follow up with PA visit in 1-2 weeks for wound check. Initiate physical therapy following that visit for passive range of motion. Initiate active assisted range of motion at 4-6 weeks given the large tear size. May do pendulums now.
--- NOTE | 2022-02-13 14:43 | W.ANESCHARGE ---
Anesthesia Charges Start Date/Time Anesthesia Start Date: 02/13/22 Anesthesia Start Time: 12:08 Stop Date/Time Anesthesia Stop Date: 02/13/22 Anesthesia Stop Time: 14:45 Summary Emergency: No
--- NOTE | 2022-02-13 14:53 | W.ANESCHARGE ---
Anesthesia Charges Start Date/Time Anesthesia Start Date: 02/13/22 Anesthesia Start Time: 12:08 Stop Date/Time Anesthesia Stop Date: 02/13/22 Anesthesia Stop Time: 14:45 Summary Emergency: No
== END 2022-02-13 15:52 | disposition home or self-care (01) ==
PROVIDERS: PCP Nurse Practitioner Family; Visit Provider Orthopaedic Surgery Sports Medicine
PROC: (CPT 29805; principal; 2022-02-13 11:00)
DX: M75.122 Complete rotator cuff tear or rupture of left shoulder, not specified as traumatic (principal); M19.012 Primary osteoarthritis, left shoulder; M75.22 Bicipital tendinitis, left shoulder; M75.42 Impingement syndrome of left shoulder; S46.112A Strain of muscle, fascia and tendon of long head of biceps, left arm, initial encounter
CPT/HCPCS: 29827; 29828; 29826; 29822; 29824; 01630; 64415; 76942; C1713; J0171; J0330; J1100; J2250; J2370; J2405; J2704; J3010; J3490; J7120

== ENCOUNTER 2022-02-22 11:03 | Outpatient (CLI) | payer BC, OTHER, SELFPAY ==
--- NOTE | 2022-02-22 11:00 | CRLHL7_ITS ---
For Patients: As a result of the Century Cures Act, medical imaging exams and procedure reports are released immediately into your electronic medical record. You may view this report before your referring provider. If you have questions, please contact your health care provider. Indication: Possible nodular density on chest x-ray Technique: Noncontrast CT chest Comparison: Chest x-ray 02/07/2022 Findings: Normal caliber thoracic aorta heart size is normal. Coronary artery calcification. No pericardial effusion no pleural effusion. 4 millimeter nodule in the anterior right upper lobe on series 3, image 51 No suspicious bony lesions. Impression: 1. 4 millimeter nodule anterior right upper lobe follow-up per Fleischner society guidelines. FLEISCHNER SOCIETY GUIDELINES - SOLID NODULES: SINGLE LOW RISK - nodule less than 6 mm: No routine follow-up. - nodule 6-8 mm: CT at 6-12 months, then consider CT at 18-24 months. - nodule greater than 8 mm: Consider CT at 3 months, PET/CT or tissue sampling. SINGLE HIGH RISK - nodule less than 6 mm: Optional CT at 12 months. - nodule 6-8 mm: CT at 6-12 months, then CT at 18-24 months. - nodule greater than 8 mm: Consider CT at 3 months, PET/CT or tissue sampling. MULTIPLE LOW RISK - nodule less than 6 mm: No routine follow-up. - nodule 6-8 mm: CT at 3-6 months, then consider CT at 18-24 months. - nodule greater than 8 mm: CT at 3-6 months, then consider CT at 18-24 months. MULTIPLE HIGH RISK - nodule less than 6 mm: Optional CT at 12 months. - nodule 6-8 mm: CT at 3-6 months, then at 18-24 months. - nodule greater than 8 mm: CT at 3-6 months, then at 18-24 months. Please note that all CT scans at this facility use dose modulation, iterative reconstruction, and/or weight-based dosing when appropriate to reduce radiation dose to as low as reasonably achievable. Dictated by Ailyn Koch MD @ 02/22/2022 12:18:25 PM (Electronically Signed)
--- OUTSIDE RECORDS SUMMARY | 2022-02-22 11:05 | XMS_ITS | Encounter Summary ---
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 Dx) [address] [place], [place] [address] [phone] Social History Tobacco Use Types Packs/Day Years [...] you attend yazidism or Patient refused 2021 confucianist services? 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 - 01/03/2022 10:15 AM CDT DOT ua for [employer] Equipment documented in this encounter Plan of [...] 8.0 01/03/2022 10:07 AM CDT RWOM Specific [place] 1.020 1.001 - 1.035 01/03/2022 10:07 AM CDT RWOM Urobilinogen 0.2 0.2 - 1.0 mg/dL 01/03/2022 10:07 AM C DT RWOM Specimen Anatomical Collection Method Collection Time Receive d Time (Source) Location / / Volume Laterality Urine 01/03/2022 10:07 01/03/2022 AM CDT 10:14 AM CDT Generic [facility] LAB URINE ORDERABLES Performing Organization Address City/State/ZIP Code Phon e Number [facility] [address] [place] [address] MEDIC[place] [address] Occupational Medicine [address] documented in this encounter Visit Diagnoses Diagnosis Boning Room Worker Medical Exam - Primary documented in this encounter Care Teams Wwe Wrestler Relationship Specialty Start Date End Date Elsewhere, Pcp PCP - General 06/07/19 documented as of this encounter
--- OUTSIDE RECORDS SUMMARY | 2022-02-22 11:05 | XMS_ITS | Encounter Summary ---
:1960 Author Organization [facility] Address [address] [place] [address] Care Team Providers Name Role Phone Elsewhere, Pcp Primary Care Provider Unavailable Reason for Visit Reason Comments Ground Intelligence Officer's License Exam Mirza Equipment Encounter Details Date Type Department Care Team Description 01/03/2022 Office Visit Department of Sandra Sanches, Department Of Occupational Medicine M.Racheal Transportation in [address] Examination Department [address] [place] [address] [place] [address] (Primary Dx) [address] Social History Tobacco Use [...] you attend protestant or Patient refused 2021 mandaen services? 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 - 01/03/2022 10:45 AM CDT Ground Intelligence Officer Medical Examination SUBJECTIVE Hussein Whittaker is a 61 y.o. 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 The patient reports problems - HTN for several years on meds. No symptoms reported. The following portions of the patient's history were reviewed and updated as appropriate: allergies,current medications, family history, medical history, social history, surgical history, and problem list. CURRENT MEDICATIONS Reviewed and as [facility] completed 01/03/2022 REVIEW OF SYSTEMS Pertinent [...] is outlined in nursing note and reveals jinriksha driver does not require visual correction to meet [facility] standards. Color vision is normal. Field of [...] but periodic monitoring required due to HTN. 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 Restrictions and [...] Primary documented in this encounter Care Teams Tugboat Pilot Relationship Specialty Start Date End Date Elsewhere, Pcp PCP - General 06/07/19 documented as of this encounter
--- OUTSIDE RECORDS SUMMARY | 2022-02-22 11:05 | XMS_ITS | Encounter Summary ---
:1960 Author Organization [facility] Address [address] [place] [address] Care Team Providers Name Role Phone Elsewhere, Pcp Primary Care Provider Unavailable Reason for Visit Reason Comments Other Hearing Loss Encounter Details Date Type Department Care Team Description 01/24/2022 Diagnostic Department of Leo Pacheco M.D. [address] [place] [address] [place] [phone] Loss Hearing Mixed Otorhinolaryngology in Alvaro Snowden AuWillie [address] [place] [address] Conduct Sensorineural [place], [place] [address] [place] [phone] Social History Tobacco Use Types Packs/Day [...] you attend moravian or Patient refused 2021 sabianism services? 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 documented as of this encounter Progress [...] customs by ReSound HS rechargeable Right SN: [id number] Left SN: [id number] Repair warranty exp: 01/24/2025 L&D warranty exp: 01/24/2025 Training And Development Project Leader: 01/24/2025 Repair warranty exp: 01/24/2025 L&D warranty exp: 01/24/2023 Adjustment trial end date: 03/11/2022 documented in this encounter Plan of Treatment Not on filedocumented as of this encounter Visit Diagnoses Diagnosis Loss Hearing Mixed Conduct Sensorineural documented in this encounter Care Teams Technical Education Teacher Relationship Specialty Start Date End Date Elsewhere, Pcp PCP - General 06/07/19 documented as of this encounter
--- OUTSIDE RECORDS SUMMARY | 2022-02-22 11:05 | XMS_ITS | Encounter Summary ---
:1960 Author Organization [facility] Address [address] [place] [address] Care Team Providers Name Role Phone Elsewhere, Pcp Primary Care Provider Unavailable Reason for Visit Reason Comments Arthroplasty Doing well and needs return to work paperwork Follow-up Doing well and needs return to work paperwork Appointment Request (Routine) - Closed Specialty Diagnoses / Procedures Referred By Contact Refer red To Contact Preventive Medicine Diagnoses n/a [facility] Procedures n/a Referral ID Status Reason Start Date Expiration Date Visits Requ ested Visits Authorized [id number] Closed 01/23/2022 01/23/2023 1 1 Encounter Details Date Type Department Care Team Description 01/29/2022 Office Visit Department of Laurie Dumont Arthropla sty Total Knee Orthopedic Surgery in [facility] C.[facility]., Repla cement Status Post Arun Garcia D.N.P. Left (Primary Dx) [address] [place] [phone] Social History Tobacco Use Types Packs/Day Years [...] you attend catholic or Patient refused 2021 moravian services? Do you belong to any clubs or No 12/20/2021 organizations such as catholic groups, unions, fraWummelbox or athletic groups, or school groups? 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
--- OUTSIDE RECORDS SUMMARY | 2022-02-22 11:05 | XMS_ITS | Clinical Summary ---
:1960 Author Organization [facility] Address [address] [place] [address] Care Team Providers Name Role Phone Elsewhere, Pcp Primary Care Provider Unavailable Source Comments Patient records contain information from all sites at [facility]. For routine questions regarding patient records, call [phone] during business hours, M-F 8:00 AM - 5:00 PM Central Time. Record requests for emergency care only can be directed to [phone] at any time.[facility] Allergies Active Allergy Reactions Severity Noted Date [...] Added automatically from request for nikia june [id number] Arthroplasty Total Knee Replacement Status Post Left 0 09/18/2021 Overview: Added automatically from request for nikia june [id number] Primary Osteoarthritis Knee Left 06/28/2021 Overview: Added automatically from request for nikia june [id number] Morbid Severe Obesity Due To Excess Calories Hypertension Essential Primary 04/10/2021 Gastroesophageal Reflux Disease Without Esophagitis Diverticulosis Of Large Intestine Without Perforation Or Abscess Without 03/05/2021 Bleeding Cyst Of Kidney Acquired 03/05/2021 Encounters Date Type Specialty Care Team Description 01/29/2022 Office Visit Orthopedic Surgery Laurie Dumont Arthrop lasty Total L, TURRET LATHE TENDER, Knee Replacemen t C.N.P., D.N.P. Status Post L eft (Primary Dx) 01/24/2022 Diagnostic Otorhinolaryngology Kirstin Pacheco Hea ring Mine Bailey M.D. Conduct Alvaro Snell, Sensorineural Au.D. 01/03/2022 Office Visit Occupational Medicine Sandra Sanches Depar tment Of Adrian Bui Transportation Examination Department Of [employer] otor Vehicles (Prima ry Dx) 01/03/2022 Office Visit Occupational Medicine Sandra Sanches Comme rcial Falsework Builder Adrian Bui Medical Exam (Primary Dx) 12/31/2021 [...] Dk Bui, Osteoarthriti s Knee Adrian Left Yasmine Cherry P.T. from Last 3 Months Immunizations Name Administration Dates Next Due Influenza, Injectable, Mdck, 02/24/2021, 02/28/2018 Preservative Free, Quadrivalent Influenza, Injectable, Quadrivalent 02/20/2015 Influenza, Seasonal, Injectable 03/15/2016, 03/31/2012 Influenza, Unspecified 03/29/2014, 03/25/2013, 03/31/2012, 02/16/2011, 02/10/2009 SARS-COV-2 (COVID-19) - Makstr (12 04/11/2021, 09/05/2020, 0 08/10/2020 years or [...] you attend anglican or Patient refused 2021 samaritan services? Do [...] at Date Recorded Male 06/23/2021 7:46 PM BACK END ARCHITECT Last Filed Vital Signs Vital Sign Reading [...] this topic Medical Devices Implanted Type Area Exchange Architect Device Shelf Model / Identifier Expiration Serial / Date Lot Hardware E.G. Hardware Left: Pins/Screws/R e.g. Wrist ods pins/screws/ rods Description: Wrist fracture - open. open reduction and internal fixation of left wrist fracture 1994 [employer]lon Tritanium Symmetric Patella Knee Implant Left: Knee Str yker [id number] 06/28/2025 [id number] / Implanted: Qty: 1 on 08/06/2021 by Dk Perez M.D. at [facility] / [id number] Procedures Procedure Name Priority Date/Time [...] 8.0 01/03/2022 10:07 AM CDT RWOM Specific Banner 1.020 1.001 - 1.035 01/03/2022 10:07 AM CDT RWOM Urobilinogen 0.2 0.2 - 1.0 mg/dL 01/03/2022 10:07 AM C DT RWOM Specimen Anatomical Collection Method Collection Time Receive d Time (Source) Location / / Volume Laterality Urine 01/03/2022 10:07 01/03/2022 AM CDT 10:14 AM CDT Generic Rals LAB URINE ORDERABLES Performing Organization Address City/State/ZIP Code Phon e Number [facility] [address] [place] [address] [facility] [place] [address] Occupational Medicine [address] Sedimentation Rate (12/11/2021 4:13 PM CDT) Analysis Performed At Patho logist Time Signature Sedimentation 14 0 - 22 12/11/2021 RDW[facility] Rate, B mm/1 h 7:48 PM CDT Specimen Anatomical Collection Method Collection Time Receive d Time (Source) Location / / Volume Laterality Blood (Blood, 12/11/2021 4:13 PM 12/12/19 22 7:15 Venous) CDT PM CDT Kaylee Mello APRNN.Carlitos., D.N.P. LAB BLOOD ADD-ON Performing Organization Address City/State/ZIP Code Phon e Number [facility]- [address] [place], [place] [address] [facility] [place] [address] System in [place] [address] CRP (C-Reactive Protein) (12/11/2021 4:13 PM CDT) P athologist Signature C-Reactive <3.0 <=8.0 mg/L 12/11/2021 CNFL Protein (CRP), 4:39 PM CDT P Specimen Anatomical Collection Method Collection Time Receive d Time (Source) Location / / Volume Laterality Blood (Blood, 12/11/2021 4:13 PM 12/12/19 22 4:14 Venous) CDT PM CDT Kaylee Mello APRNN.P., D.N.P. LAB BLOOD ADD-ON Performing Organization Address City/State/ZIP Code Phon e Number [facility]- [address] [place] [address] [place] [address] System [address] from Last 3 Months Insurance Payer Benefit Plan / Subscriber ID Effective Phone Address T ype Group Dates TRAVELERS TRAVELERS [id number] 2021-Pre [address] Indemn ity INSURANCE INSURANCE sent [id number] [place] [address] [facility] [id number] 2019-Pres [phone] BLUE SHIELD ent [phone] [place] [address] Advance Directives For more information, please contact: [phone] Latest Code Status on File Code Status Date Activated Date Inactivated Comments Full Code 08/06/2021 12:13 PM 08/07/2021 2:17 PM Full Code: Not Discussed Due to: Patient not available Care Teams Cable Television Installer Relationship Specialty Start Date End Date Elsewhere, Pcp PCP - General 06/07/19
--- OUTSIDE RECORDS SUMMARY | 2022-02-22 11:05 | XMS_ITS | Encounter Summary ---
:1960 Author Organization [facility] Address [address] [place] [address] Care Team Providers Name Role Phone Elsewhere, Pcp Primary Care Provider Unavailable Encounter Details Date Type Department Care Team Description 12/31/2021 Clinical Communication Department of Sjostrom, Otorhinolaryngology in [address] [phone] Social History Tobacco Use Types Packs/Day [...] you attend synagogue or Patient refused 2021 druze services? 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
--- OUTSIDE RECORDS SUMMARY | 2022-02-22 11:06 | XMS_ITS | Encounter Summary ---
:1960 Author Organization [facility] Address [address] [place] [address] Care Team Providers Name Role Phone Elsewhere, Pcp Primary Care Provider Unavailable Reason for Visit Reason Comments lab results Encounter Details Date Type Department Care Team Description 12/12/2021 Clinical Communication Department of Nieves Hunter l ab results Orthopedic Surgery in [facility] [place], [place] DN.P. [address] [phone] [phone] Social History Tobacco Use Types Packs/Day Years [...] you attend zoroastrianism or Patient refused 2021 congregation services? Do [...] at Date Recorded Male 06/23/2021 7:46 PM GLASS ETCHER HELPER documented as of this encounter Miscellaneous Notes [...] on filedocumented in this encounter Care Teams Laser Operator Relationship Specialty Start Date End Date Elsewhere, Pcp PCP - General 06/07/19 documented as of this encounter
--- OUTSIDE RECORDS SUMMARY | 2022-02-22 11:06 | XMS_ITS | Encounter Summary ---
:1960 Author Organization [facility] Address [address] [place] [address] Care Team Providers Name Role Phone Elsewhere, Pcp Primary Care Provider Unavailable Reason for Visit Physical Therapy (Routine) - Authorized Specialty Diagnoses / Procedures Referred By Contact Refer red To Contact Diagnoses Primary Osteoarthritis Knee Left Dk Mijares M.D. [facility] Procedures PT Ongoing treatment [address] [place] [address] Referral ID Status Reason Start Date Expiration Date Visits V isits Requested Authorized [id number] Authorized 08/10/2021 05/18/2022 40 40 Encounter Details Date Type Department Care Team Description 11/08/2021 Clinical Support Department of Dk Mijares M.D. [address] [place] [phone] Primary Rehabilitation Maria Luisa Chaparro, P.T. Osteoarthritis Knee Services in [place] [address] [place] [phone] Social History Tobacco Use Types Packs/Day Years [...] 12/20/2021 organizations such as uatsdin groups, unions, frabMobilized or athletic groups, or school groups? How [...] at Date Recorded Male 06/23/2021 7:46 PM RED LEAD BURNER documented as of this encounter Progress Notes [...] Left documented in this encounter Care Teams Cutter In Relationship Specialty Start Date End Date Elsewhere, Pcp PCP - General 06/07/19 documented as of this encounter
--- OUTSIDE RECORDS SUMMARY | 2022-02-22 11:06 | XMS_ITS | Encounter Summary ---
:1960 Author Organization [facility] Address [address] [place] [address] Care Team Providers Name Role Phone Elsewhere, Pcp Primary Care Provider Unavailable Encounter Details Date Type Department Care Team Description 11/30/2021 Clinical Communication Department of Dk Mijares , Orthopedic Surgery in M.DFarshad [place], [place] [address] [facility] [address] [place] [phone] Social History Tobacco Use Types Packs/Day Years [...] you attend baptism or Patient refused 2021 pentecostalism services? Do [...] at Date Recorded Male 06/23/2021 7:46 PM CLOTH PRINTER HELPER documented as of this encounter Miscellaneous Notes Telephone Encounter - Ary Salmon R.N. - 11/30/2021 2:07 PM CDT Spoke with Eda Virgen from [facility] and relayed Laurie Dumont's updated restrictions. [...] CDT Reason for Communication: Eda Virgen from [facility] called stating that she got the [...] on filedocumented in this encounter Care Teams Charter Coordinator Relationship Specialty Start Date End Date Elsewhere, Pcp PCP - General 06/07/19 documented as of this encounter
--- OUTSIDE RECORDS SUMMARY | 2022-02-22 11:06 | XMS_ITS | Encounter Summary ---
:1960 Author Organization [facility] Address [address] [place] [address] Care Team Providers Name Role Phone Elsewhere, Pcp Primary Care Provider Unavailable Reason for Visit Reason Comments Hearing Loss Outpatient (Routine) - Authorized Specialty Diagnoses / Procedures Referred By Contact Refer red To Contact Audiology Diagnoses Loss Hearing Mixed Conduct Sensorineural Alvrao Snell Au.D. [facility] [address] [place] [phone] Referral ID Status Reason Start Date Expiration Date Visits V isits Requested Authorized [id number] Authorized 10/29/2021 10/29/2022 1 1 Encounter Details Date Type Department Care Team Description 12/24/2021 Diagnostic Department of Sim Renee M. D. [address] [place] [phone] Loss Hearing Mixed Otorhinolaryngology in [facility] Alvaro Snell Au.D. [address] [place] [phone] Conduct Sensor[address] [phone] Social History Tobacco Use Types Packs/Day [...] you attend restorationism or Patient refused 2021 scientology services? Do [...] at Date Recorded Male 06/23/2021 7:46 PM PATIENT ACCESS COORDINATOR documented as of this encounter Progress [...] Sensorineural documented in this encounter Care Teams Flash Welding Machine Operator Relationship Specialty Start Date End Date Elsewhere, Pcp PCP - General 06/07/19 documented as of this encounter
--- OUTSIDE RECORDS SUMMARY | 2022-02-22 11:06 | XMS_ITS | Encounter Summary ---
:1960 Author Organization [facility] Address [address] [place] [address] Care Team Providers Name Role Phone Elsewhere, Pcp Primary Care Provider Unavailable Reason for Visit Physical Therapy (Routine) - Authorized Specialty Diagnoses / Procedures Referred By Contact Refer red To Contact Diagnoses Primary Osteoarthritis Knee Left Dk Mijares M.D. [facility] Procedures PT Ongoing treatment [address] [place] [phone] Referral ID Status Reason Start Date Expiration Date Visits V isits Requested Authorized [id number] Authorized 08/10/2021 05/18/2022 40 40 Encounter Details Date Type Department Care Team Description 12/04/2021 Clinical Support Department of Dk Mijares M.D. [address] [place] [phone] Primary Rehabilitation Juanpablo Pang, P.T. [address] [place] [phone] Osteoarthritis Knee Services in [address] [phone] Social History Tobacco Use Types Packs/Day Years [...] you attend tenriism or Patient refused 2021 methodist services? Do you belong to any clubs or No 12/20/2021 organizations such as tenriism groups, unions, fraStraighterLine or athletic groups, or school groups? 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 We did discuss this with his junk removal specialist, Dr. Mijares. He feels he may [...] Left documented in this encounter Care Teams Animal Breeder Relationship Specialty Start Date End Date Elsewhere, Pcp PCP - General 06/07/19 documented as of this encounter
--- OUTSIDE RECORDS SUMMARY | 2022-02-22 11:06 | XMS_ITS | Encounter Summary ---
:1960 Author Organization [facility] Address [address] [place] [address] Care Team Providers Name Role Phone Elsewhere, Pcp Primary Care Provider Unavailable Reason for Visit Physical Therapy (Routine) - Authorized Specialty Diagnoses / Procedures Referred By Contact Refer red To Contact Diagnoses Primary Osteoarthritis Knee Left Dk Mijares M.D. [facility] Procedures PT Ongoing treatment [address] [place] [address] Referral ID Status Reason Start Date Expiration Date Visits V isits Requested Authorized [id number] Authorized 08/10/2021 05/18/2022 40 40 Encounter Details Date Type Department Care Team Description 11/27/2021 Clinical Support Department of Dk Mijares M.D. [address] [place] [phone] Primary Rehabilitation Yasmine Cherry, P.T. Osteoarthritis Knee Services in [place] [address] [place] [phone] Social History Tobacco Use Types Packs/Day Years [...] you attend yarsani or Patient refused 2021 latter-day services? Do [...] at Date Recorded Male 06/23/2021 7:46 PM FLOOR POLISHER documented as of this encounter Progress Notes Yasmine Cherry PFarshadTFarshad - 11/27/2021 9:45 AM CDT Physical Therapy Outpatient Treatment Note SUBJECTIVE Patient's Name: Hussein Whittaker Referring Provider: Dk Mijares M.D. Visit Diagnosis: 1. Primary Osteoarthritis Knee Left Payor: [facility] / Plan: [facility] [place] / Product Type: PPO / PT Next Certification Date: 08/08/2021 [facility] Visit Count: 15 Patient comments: [...] Continue TKA pathway Access Code: [email or web address] URL: [email or web address] Parents/ Date: 11/27/2021 Prepared by: DALJIT [place] [...] Left documented in this encounter Care Teams Forestry Engineer Relationship Specialty Start Date End Date Elsewhere, Pcp PCP - General 06/07/19 documented as of this encounter
--- OUTSIDE RECORDS SUMMARY | 2022-02-22 11:06 | XMS_ITS | Encounter Summary ---
:1960 Author Organization [facility] Address [address] [place] [address] Care Team Providers Name Role Phone Elsewhere, Pcp Primary Care Provider Unavailable Reason for Visit Reason Comments Follow-up Procedure Swelling Pain Outpatient (Routine) - Closed Specialty Diagnoses / Procedures Referred By Contact Refer red To Contact Orthopedic Surgery Laurie Dumont APRN, GURVINDERS [facility] C.N.P., D.N.P. [address] [place] [address] Referral ID Status Reason Start Date Expiration Date Visits Requ ested Visits Authorized [id number] Closed 11/20/2021 11/20/2022 1 1 Encounter Details Date Type Department Care Team Description 12/11/2021 Office Visit Department of Dk Mijares M.D. [address] [place] [phone] Arthroplasty Total Orthopedic Surgery in Nieves Hunter APRN, C.N.P., D.N.P. [address] [place] [address] Knee Replacement [place] Garcia, Status Post [facility] (Primary Dx) [address] [place] [address] [place] [phone] Social History Tobacco Use Types Packs/Day Years [...] you attend moravian or Patient refused 2021 jewish services? 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 documented as of this encounter Progress [...] Organization Address City/State/ZIP Code Phon e Number [facility]- [facility] [place], [place] [address] [place] [address] System in [place] [address] CRP (C-Reactive Protein) (12/11/2021 4:13 PM CDT) P athologist Signature C-Reactive <3.0 <=8.0 mg/L 12/11/2021 CNFL Protein (CRP), 4:39 PM CDT P Specimen Anatomical Collection Method Collection Time Receive d Time (Source) Location / / Volume Laterality Blood (Blood, 12/11/2021 4:13 PM 12/12/19 4:14 Venous) CDT PM CDT Nieves Hunter APRN C.N.P., D.N.P. LAB BLOOD ADD-ON Performing Organization Address City/State/RUST Code Phon e Number [facility]- [address] [place] [id number] [place] [address] [place] [address] System [address] documented in this encounter Visit Diagnoses Diagnosis Arthroplasty Total Knee Replacement Stat us Post Left - Primary documented in this encounter Care Teams Sports Bookmaker Relationship Specialty Start Date End Date Elsewhere, Pcp PCP - General 06/07/19 documented as of this encounter
--- OUTSIDE RECORDS SUMMARY | 2022-02-22 11:06 | XMS_ITS | Encounter Summary ---
:1960 Author Organization [facility] Address [address] [place] [address] Care Team Providers Name Role Phone Elsewhere, Pcp Primary Care Provider Unavailable Reason for Visit Physical Therapy (Routine) - Authorized Specialty Diagnoses / Procedures Referred By Contact Refer red To Contact Diagnoses Primary Osteoarthritis Knee Left Dk Mijares M.D. [facility] Procedures PT Ongoing treatment [address] [place] [phone] Referral ID Status Reason Start Date Expiration Date Visits V isits Requested Authorized [id number] Authorized 08/10/2021 05/18/2022 40 40 Encounter Details Date Type Department Care Team Description 12/14/2021 Clinical Support Department of Dk Mijares M.D. [address] [place] [phone] Primary Rehabilitation Juanpablo Pang, P.T. [address] [place] [phone] Osteoarthritis Knee Services in [address] [phone] Social History Tobacco Use Types Packs/Day Years [...] you attend caodaism or Patient refused 2021 mormonism services? Do you belong to any clubs or No 12/20/2021 organizations such as caodaism groups, unions, fraMOLI or athletic groups, or school groups? How [...] at Date Recorded Male 06/23/2021 7:46 PM CAMPUS SAFETY OFFICER documented as of this encounter Progress [...] Left documented in this encounter Care Teams Roller Stainer Relationship Specialty Start Date End Date Elsewhere, Pcp PCP - General 06/07/19 documented as of this encounter
--- OUTSIDE RECORDS SUMMARY | 2022-02-22 11:06 | XMS_ITS | Encounter Summary ---
:1960 Author Organization [facility] Address [address] [place] [address] Care Team Providers Name Role Phone Elsewhere, Pcp Primary Care Provider Unavailable Reason for Visit Physical Therapy (Routine) - Closed Specialty Diagnoses / Procedures Referred By Contact Refer red To Contact Diagnoses Arthroplasty Total Knee Replacement Status Post Left Pain Knee Left Dk Mijares M.D. [facility] Procedures PT Evaluate and treat [address] [place] [phone] Referral ID Status Reason Start Date Expiration Date Visits Requ ested Visits Authorized [id number] Closed 09/18/2021 09/18/2022 1 1 Encounter Details Date Type Department Care Team Description 11/21/2021 Comprehensive Visit Department of Naman Mijares M.D. 701 [facility] [place] [phone] Arthroplasty Total Knee Replacement Stat us Post Left; Rehabilitation Juanpablo Pang, P.T. [address] [place] [address] [place] [phone] Pain Knee Left Services in [address] [phone] Social History Tobacco Use Types Packs/Day Years [...] you attend lutheran or Patient refused 2021 worship services? Do you belong to any clubs or No 12/20/2021 organizations such as lutheran groups, unions, fraInsight Ecosystems or athletic groups, or school groups? How [...] at Date Recorded Male 06/23/2021 7:46 PM YARDER ENGINEER documented as of this encounter Progress [...] Left documented in this encounter Care Teams Sock Knitting Machine Operator Relationship Specialty Start Date End Date Elsewhere, Pcp PCP - General 06/07/19 documented as of this encounter
--- OUTSIDE RECORDS SUMMARY | 2022-02-22 11:06 | XMS_ITS | Encounter Summary ---
:1960 Author Organization [facility] Address [address] [place] [address] Care Team Providers Name Role Phone Elsewhere, Pcp Primary Care Provider Unavailable Reason for Referral Outpatient (Routine) - Closed Specialty Diagnoses / Procedures Referred By Contact Refer red To Contact Orthopedic Surgery Laurie Dumont APRN, [facility] C.N.P., D.N.P. [address] [place] [address] Referral ID Status Reason Start Date Expiration Date Visits Requ ested Visits Authorized [id number] Closed 11/20/2021 11/20/2022 1 1 Reason for Visit Reason Comments Post-op Motion is improving slowly Follow-up Motion is improving slowly Encounter Details Date Type Department Care Team Description 11/20/2021 Office Visit Department of Nieves Hunter APRN, C.N.P., D.N.P. [address] [place] [address] Arthroplasty Total Knee Replacement Stat us Post Left (Primary Dx); Orthopedic Surgery in Laurie Dumont APRN, C.N.P., D.N.P. [address] [place] [address] Follow Up Examination Postoperative Visi t [address] [phone] Social History Tobacco Use Types [...] you attend taoism or Patient refused 2021 anabaptist services? Do [...] at Date Recorded Male 06/23/2021 7:46 PM PROGRAM PROJECT ANALYST documented as of this encounter Progress [...] t documented in this encounter Care Teams Motorcycle Police Officer Relationship Specialty Start Date End Date Elsewhere, Pcp PCP - General 06/07/19 documented as of this encounter
--- OUTSIDE RECORDS SUMMARY | 2022-02-22 11:06 | XMS_ITS | Encounter Summary ---
:1960 Author Organization [facility] Address [address] [place] [address] Care Team Providers Name Role Phone Elsewhere, Pcp Primary Care Provider Unavailable Reason for Visit Physical Therapy (Routine) - Authorized Specialty Diagnoses / Procedures Referred By Contact Refer red To Contact Diagnoses Primary Osteoarthritis Knee Left Dk Mijares M.D. [facility] Procedures PT Ongoing treatment [address] [place] [address] Referral ID Status Reason Start Date Expiration Date Visits V isits Requested Authorized [id number] Authorized 08/10/2021 05/18/2022 40 40 Encounter Details Date Type Department Care Team Description 11/29/2021 Clinical Support Department of Dk Mijares M.D. [address] [place] [phone] Primary Rehabilitation Juanpablo Pang, P.T. [address] [place] [phone] Osteoarthritis Knee Services in [address] [phone] Social History Tobacco Use Types Packs/Day Years [...] you attend buddhist or Patient refused 2021 jainism services? Do you belong to any clubs or No 12/20/2021 organizations such as buddhist groups, unions, fraNovalux or athletic groups, or school groups? How [...] at Date Recorded Male 06/23/2021 7:46 PM ELIGIBILITY TECHNICIAN documented as of this encounter Progress Notes Juanpablo Pang, P.T. - 11/29/2021 8:45 AM CDT Physical Therapy Outpatient Treatment Note SUBJECTIVE Patient's Name: Hussein Whittaker Referring Provider: Dk Mijares M.D. Visit Diagnosis: 1. Primary Osteoarthritis Knee Left Payor: [facility] / Plan: [facility] [place] / Product Type: PPO / PT Next Certification Date: 08/08/2021 [facility] Visit Count: 16 Patient comments: Talon comes [...] Left documented in this encounter Care Teams Police Guard Relationship Specialty Start Date End Date Elsewhere, Pcp PCP - General 06/07/19 documented as of this encounter
--- OUTSIDE RECORDS SUMMARY | 2022-02-22 11:07 | XMS_ITS | Encounter Summary ---
:1960 Author Organization [facility] Address [address] [place] [address] Care Team Providers Name Role Phone Elsewhere, Pcp Primary Care Provider Unavailable Reason for Visit Reason Comments Hearing Loss Outpatient (Routine) - Authorized Specialty Diagnoses / Procedures Referred By Contact Refer red To Contact Audiology Diagnoses Loss Hearing Bilateral Chica Rodriguez APRN, [facility] C.N.P., D.N.P. [address] [place] [address] Referral ID Status Reason Start Date Expiration Date Visits V isits Requested Authorized [id number] Authorized 10/08/2021 10/08/2022 1 1 Encounter Details Date Type Department Care Team Description 10/18/2021 Diagnostic Department of Chica Rodriguez APRN, C.N.P., D.N.P. [address] [place] [address] Loss Hearing Otorhinolaryngology in [facility] Alvaro Snell Au.D. [address] [place] [phone] Sensorineural [place], [place] Bilateral [address] [place] [address] Social History Tobacco Use Types Packs/Day [...] you attend gnosticist or Patient refused 2021 yazdanism services? Do you belong to any clubs or No 12/20/2021 organizations such as gnosticist groups, unions, fraTxVia or athletic groups, or school groups? 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
--- OUTSIDE RECORDS SUMMARY | 2022-02-22 11:07 | XMS_ITS | Encounter Summary ---
:1960 Author Organization [facility] Address [address] [place] [address] Care Team Providers Name Role Phone Elsewhere, Pcp Primary Care Provider Unavailable Reason for Visit Physical Therapy (Routine) - Authorized Specialty Diagnoses / Procedures Referred By Contact Refer red To Contact Diagnoses Primary Osteoarthritis Knee Left Dk Mijares M.D. [facility] Procedures PT Ongoing treatment [address] [place] [address] Referral ID Status Reason Start Date Expiration Date Visits V isits Requested Authorized [id number] Authorized 08/10/2021 05/18/2022 40 40 Encounter Details Date Type Department Care Team Description 10/08/2021 Clinical Support Department of Dk Mijares M.D. [address] [place] [phone] Primary Rehabilitation Maria Luisa Chaparro, P.T. Osteoarthritis Knee Services [place] [address] [place] [phone] Social History Tobacco Use Types Packs/Day Years [...] you attend muslim or Patient refused 2021 shinto services? Do you belong to any clubs or No 12/20/2021 organizations such as muslim groups, unions, fraTenon Medical or athletic groups, or school groups? 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 - 10/08/2021 11:00 AM CDT Physical Therapy Outpatient Treatment Note SUBJECTIVE Patient's Name: Hussein Whittaker Referring Provider: Dk Mijares M.D. Visit Diagnosis: 1. Primary Osteoarthritis Knee Left Payor: [employer] / Plan: [employer] / Product Type: Indemnity / PT Next Certification Date: 08/08/2021 [facility] Visit Count: 2 Patient comments: Pt [...] Left documented in this encounter Care Teams Medical Lab Director Relationship Specialty Start Date End Date Elsewhere, Pcp PCP - General 06/07/19 documented as of this encounter
--- OUTSIDE RECORDS SUMMARY | 2022-02-22 11:07 | XMS_ITS | Encounter Summary ---
:1960 Author Organization [facility] Address [address] [place] [address] Care Team Providers Name Role Phone Elsewhere, Pcp Primary Care Provider Unavailable Reason for Referral Outpatient (Routine) - Authorized Specialty Diagnoses / Procedures Referred By Contact Refer red To Contact Audiology Diagnoses Loss Hearing Mixed Conduct Sensorineural Alvaro Snell Au.D. [facility] [address] [place] [address] Referral ID Status Reason Start Date Expiration Date Visits V isits Requested Authorized [id number] Authorized 10/29/2021 10/29/2022 1 1 Scheduling Instructions 60 minute appointment for a Hearing Aid Consultation Encounter Details Date Type Department Care Team Description 10/29/2021 Orders Only Department of Alvaro Snell Loss Hearing Mixed Otorhinolaryngology in [facility] [place] [address] [place] (Primary Dx) [address] [place] [address] [place], [place] [phone] Social History Tobacco Use Types Packs/Day [...] you attend christian or Patient refused 2021 caodaism services? Do you belong to any clubs or No 12/20/2021 organizations such as christian groups, unions, fraReadmill or athletic groups, or school groups? 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
--- OUTSIDE RECORDS SUMMARY | 2022-02-22 11:07 | XMS_ITS | Encounter Summary ---
:1960 Author Organization [facility] Address [address] [place] [address] Care Team Providers Name Role Phone Elsewhere, Pcp Primary Care Provider Unavailable Reason for Visit Physical Therapy (Routine) - Authorized Specialty Diagnoses / Procedures Referred By Contact Refer red To Contact Diagnoses Primary Osteoarthritis Knee Left Dk Mijares M.D. [facility] Procedures PT Ongoing treatment [address] [place] [address] Referral ID Status Reason Start Date Expiration Date Visits V isits Requested Authorized [id number] Authorized 08/10/2021 05/18/2022 40 40 Encounter Details Date Type Department Care Team Description 11/01/2021 Clinical Support Department of Dk Mijares M.D. [address] [place] [phone] Primary Rehabilitation Maria Luisa Chaparro, P.T. Osteoarthritis Knee Services in [place] [address] [place] [phone] Social History Tobacco Use Types Packs/Day Years [...] you attend mandaen or Patient refused 2021 methodist services? Do you belong to any clubs or No 12/20/2021 organizations such as mandaen groups, unions, fraAllen Tours or athletic groups, or school groups? 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 - 11/01/2021 10:00 AM CDT Physical Therapy Outpatient Treatment Note SUBJECTIVE Patient's Name: Hussein Whittaker Referring Provider: Dk Mijares M.D. Visit Diagnosis: 1. Primary Osteoarthritis Knee Left Payor: [employer] / Plan: [employer] / Product Type: Indemnity / PT Next Certification Date: 08/08/2021 [facility] Visit Count: 11 Patient comments: Pt [...] Left documented in this encounter Care Teams Fill Plant Operator Relationship Specialty Start Date End Date Elsewhere, Pcp PCP - General 06/07/19 documented as of this encounter
--- OUTSIDE RECORDS SUMMARY | 2022-02-22 11:07 | XMS_ITS | Encounter Summary ---
:1960 Author Organization [facility] Address [address] [place] [address] Care Team Providers Name Role Phone Elsewhere, Pcp Primary Care Provider Unavailable Reason for Visit Physical Therapy (Routine) - Authorized Specialty Diagnoses / Procedures Referred By Contact Refer red To Contact Diagnoses Primary Osteoarthritis Knee Left Dk Mijares M.D. [facility] Procedures PT Ongoing treatment [address] [place] [address] Referral ID Status Reason Start Date Expiration Date Visits V isits Requested Authorized [id number] Authorized 08/10/2021 05/18/2022 40 40 Encounter Details Date Type Department Care Team Description 10/10/2021 Clinical Support Department of Dk Mijares M.D. [address] [place] [phone] Primary Rehabilitation Maria Luisa Chaparro, P.T. Osteoarthritis Knee Services in [place] [address] [place] [phone] Social History Tobacco Use Types Packs/Day Years [...] or relatives? How often do you attend shinto or Patient refused 2021 holiness services? Do you belong to any clubs or No 12/20/2021 organizations such as shinto groups, unions, fraTapShield or athletic groups, or school groups? 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
--- OUTSIDE RECORDS SUMMARY | 2022-02-22 11:07 | XMS_ITS | Encounter Summary ---
:1960 Author Organization [facility] Address [address] [place] [address] Care Team Providers Name Role Phone Elsewhere, Pcp Primary Care Provider Unavailable Reason for Visit Physical Therapy (Routine) - Authorized Specialty Diagnoses / Procedures Referred By Contact Refer red To Contact Diagnoses Primary Osteoarthritis Knee Left Dk Mijares M.D. [facility] Procedures PT Ongoing treatment [address] [place] [address] Referral ID Status Reason Start Date Expiration Date Visits V isits Requested Authorized [id number] Authorized 08/10/2021 05/18/2022 40 40 Encounter Details Date Type Department Care Team Description 10/11/2021 Clinical Support Department of Dk Mijares M.D. [address] [place] [phone] Primary Rehabilitation Maria Luisa Chaparro, P.T. Osteoarthritis Knee Services in [place] [address] [place] [phone] Social History Tobacco Use Types Packs/Day Years [...] you attend worship or Patient refused 2021 baptism services? Do you belong to any clubs or No 12/20/2021 organizations such as worship groups, unions, fraCrittercism or athletic groups, or school groups? 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 - 10/11/2021 12:30 PM CDT Physical Therapy Outpatient Treatment Note SUBJECTIVE Patient's Name: Hussein Whittaker Referring Provider: Dk Mijares M.D. Visit Diagnosis: 1. Primary Osteoarthritis Knee Left Payor: [employer] / Plan: [employer] / Product Type: Indemnity / PT Next Certification Date: 08/08/2021 [facility] Visit Count: 5 Patient comments: Pt reports [...] Left documented in this encounter Care Teams Power Line Lineman Relationship Specialty Start Date End Date Elsewhere, Pcp PCP - General 06/07/19 documented as of this encounter
--- OUTSIDE RECORDS SUMMARY | 2022-02-22 11:07 | XMS_ITS | Encounter Summary ---
:1960 Author Organization [facility] Address [address] [place] [address] Care Team Providers Name Role Phone Elsewhere, Pcp Primary Care Provider Unavailable Reason for Visit Auth/Cert Specialty Diagnoses / Procedures Referred By Contact Refer red To Contact Diagnoses Pain Knee Left Arthroplasty Total Knee Replacement Status Post Left Pain Knee Left [M25.562] Arthroplasty Total Knee Replacement Status Post Left [Z96.652] Procedures [place] MANIP KNEE JT W ANES MANIPULATION KNEE Referral ID Status Reason Start Date Expiration Date Visits Requ ested Visits Authorized [id number] 1 1 Encounter Details Date Type Department Care Team Description 10/03/2021 Surgery [facility] MAIN OR Dk Mijares, MANIPULATION KNEE [address] [place] [phone] [address] [place] [phone] [place] [phone] (Wo rk) Social History Tobacco Use Types [...] you attend baptist or Patient refused 2021 rastafarian services? 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
--- OUTSIDE RECORDS SUMMARY | 2022-02-22 11:07 | XMS_ITS | Encounter Summary ---
:1960 Author Organization [facility] Address [address] [place] [address] Care Team Providers Name Role Phone Elsewhere, Pcp Primary Care Provider Unavailable Reason for Visit Physical Therapy (Routine) - Authorized Specialty Diagnoses / Procedures Referred By Contact Refer red To Contact Diagnoses Primary Osteoarthritis Knee Left Dk Mijares M.D. [facility] Procedures PT Ongoing treatment [address] [place] [address] Referral ID Status Reason Start Date Expiration Date Visits V isits Requested Authorized [id number] Authorized 08/10/2021 05/18/2022 40 40 Encounter Details Date Type Department Care Team Description 10/25/2021 Clinical Support Department of Dk Mijares M.D. [address] [place] [phone] Primary Rehabilitation Maria Luisa Chaparro, P.T. Osteoarthritis Knee Services in [place] [address] [place] [phone] Social History Tobacco Use Types Packs/Day Years [...] you attend anabaptism or Patient refused 2021 zoroastrian services? Do you belong to any clubs or No 12/20/2021 organizations such as anabaptism groups, unions, fraAveillant or athletic groups, or school groups? How [...] PROJECT MANAGER documented as of this encounter Progress Notes Maria Luisa Chaparro PMisael. - 10/25/2021 9:15 AM CDT Physical Therapy Outpatient Treatment Note SUBJECTIVE Patient's Name: Hussein Whittaker Referring Provider: Dk Mijares M.D. Visit Diagnosis: 1. Primary Osteoarthritis Knee Left Payor: [employer] / Plan: [employer] / Product Type: Indemnity / PT Next Certification Date: 08/08/2021 [facility] Visit Count: 9 Patient comments: Pt reports [...] Left documented in this encounter Care Teams Auto Air Conditioning Installer Relationship Specialty Start Date End Date Elsewhere, Pcp PCP - General 06/07/19 documented as of this encounter
--- OUTSIDE RECORDS SUMMARY | 2022-02-22 11:07 | XMS_ITS | Encounter Summary ---
:1960 Author Organization [facility] Address [address] [place] [address] Care Team Providers Name Role Phone Elsewhere, Pcp Primary Care Provider Unavailable Reason for Visit Physical Therapy (Routine) - Authorized Specialty Diagnoses / Procedures Referred By Contact Refer red To Contact Diagnoses Primary Osteoarthritis Knee Left Dk Mijares M.D. [facility] Procedures PT Ongoing treatment [address] [place] [address] Referral ID Status Reason Start Date Expiration Date Visits V isits Requested Authorized [id number] Authorized 08/10/2021 05/18/2022 40 40 Encounter Details Date Type Department Care Team Description 10/09/2021 Clinical Support Department of Dk Mijares M.D. [address] [place] [phone] Primary Rehabilitation Maria Luisa Chaparro, P.T. Osteoarthritis Knee Services in [place] [address] [place] [phone] Social History Tobacco Use Types Packs/Day Years [...] you attend restoration or Patient refused 2021 advent services? Do you belong to any clubs or No 12/20/2021 organizations such as restoration groups, unions, fraRoombeats or athletic groups, or school groups? 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 - 10/09/2021 12:45 PM CDT Physical Therapy Outpatient Treatment Note SUBJECTIVE Patient's Name: Hussein Whittaker Referring Provider: Dk Mijares M.D. Visit Diagnosis: 1. Primary Osteoarthritis Knee Left Payor: [employer] / Plan: [employer] / Product Type: Indemnity / PT Next Certification Date: 08/08/2021 [facility] Visit Count: 3 Patient comments: Pt [...] Left documented in this encounter Care Teams Keg Varnisher Relationship Specialty Start Date End Date Elsewhere, Pcp PCP - General 06/07/19 documented as of this encounter
--- OUTSIDE RECORDS SUMMARY | 2022-02-22 11:07 | XMS_ITS | Encounter Summary ---
:1960 Author Organization [facility] Address [address] [place] [address] Care Team Providers Name Role Phone Elsewhere, Pcp Primary Care Provider Unavailable Reason for Visit Physical Therapy (Routine) - Authorized Specialty Diagnoses / Procedures Referred By Contact Refer red To Contact Diagnoses Primary Osteoarthritis Knee Left Dk Mijares M.D. [facility] Procedures PT Ongoing treatment [address] [place] [address] Referral ID Status Reason Start Date Expiration Date Visits V isits Requested Authorized [id number] Authorized 08/10/2021 05/18/2022 40 40 Encounter Details Date Type Department Care Team Description 10/05/2021 Clinical Support Department of Dk Mijares M.D. [address] [place] [phone] Primary Rehabilitation Maria Luisa Chaparro, P.T. Osteoarthritis Knee Services in [place] [address] [place] [phone] Social History Tobacco Use Types Packs/Day Years [...] you attend mosque or Patient refused 2021 yarsanism services? Do you belong to any clubs or No 12/20/2021 organizations such as mosque groups, unions, fraScout or athletic groups, or school groups? 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
--- OUTSIDE RECORDS SUMMARY | 2022-02-22 11:07 | XMS_ITS | Encounter Summary ---
:1960 Author Organization [facility] Address [address] [place] [address] Care Team Providers Name Role Phone Elsewhere, Pcp Primary Care Provider Unavailable Reason for Visit Physical Therapy (Routine) - Authorized Specialty Diagnoses / Procedures Referred By Contact Refer red To Contact Diagnoses Primary Osteoarthritis Knee Left Dk Mijares M.D. [facility] Procedures PT Ongoing treatment [address] [place] [address] Referral ID Status Reason Start Date Expiration Date Visits V isits Requested Authorized [id number] Authorized 08/10/2021 05/18/2022 40 40 Encounter Details Date Type Department Care Team Description 10/22/2021 Clinical Support Department of Dk Mijares M.D. [address] [place] [phone] Primary Rehabilitation Maria Luisa Chaparro, P.T. Osteoarthritis Knee Services in [place] [address] [place] [phone] Social History Tobacco Use Types Packs/Day Years [...] you attend moravian or Patient refused 2021 yarsani services? Do you belong to any clubs or No 12/20/2021 organizations such as moravian groups, unions, fraEveryMove or athletic groups, or school groups? 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 - 10/22/2021 9:45 AM CDT Physical Therapy Outpatient Treatment Note SUBJECTIVE Patient's Name: Hussein Whittaker Referring Provider: Dk Mijares M.D. Visit Diagnosis: 1. Primary Osteoarthritis Knee Left Payor: [employer] / Plan: [employer] / Product Type: Indemnity / PT Next Certification Date: 08/08/2021 [facility] Visit Count: 8 Patient comments: Pt [...] Left documented in this encounter Care Teams Wire Weaver Cloth Relationship Specialty Start Date End Date Elsewhere, Pcp PCP - General 06/07/19 documented as of this encounter
--- OUTSIDE RECORDS SUMMARY | 2022-02-22 11:07 | XMS_ITS | Encounter Summary ---
:1960 Author Organization [facility] Address [address] [place] [address] Care Team Providers Name Role Phone Elsewhere, Pcp Primary Care Provider Unavailable Reason for Visit Physical Therapy (Routine) - Authorized Specialty Diagnoses / Procedures Referred By Contact Refer red To Contact Diagnoses Primary Osteoarthritis Knee Left Dk Mijares M.D. [facility] Procedures PT Ongoing treatment [address] [place] [address] Referral ID Status Reason Start Date Expiration Date Visits V isits Requested Authorized [id number] Authorized 08/10/2021 05/18/2022 40 40 Encounter Details Date Type Department Care Team Description 11/06/2021 Clinical Support Department of Dk Mijares M.D. [address] [place] [phone] Primary Rehabilitation Maria Luisa Chaparro, P.T. Osteoarthritis Knee Services in [place] [address] [place] [phone] Social History Tobacco Use Types Packs/Day Years [...] you attend confucianist or Patient refused 2021 yazidi services? Do you belong to any clubs or No 12/20/2021 organizations such as confucianist groups, unions, fraInfoflow or athletic groups, or school groups? 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 - 11/06/2021 8:30 AM CDT Physical Therapy Outpatient Treatment Note SUBJECTIVE Patient's Name: Hussein Whittaker Referring Provider: Dk Mijares M.D. Visit Diagnosis: 1. 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
--- OUTSIDE RECORDS SUMMARY | 2022-02-22 11:07 | XMS_ITS | Encounter Summary ---
:1960 Author Organization [facility] Address [address] [place] [address] Care Team Providers Name Role Phone Elsewhere, [...] you attend cheondoism or Patient refused 2021 uatsdin services? Do [...] at Date Recorded Male 06/23/2021 7:46 PM ACTIVITY THERAPIST documented as of this encounter Plan [...] filedocumented in this encounter Care Teams Senior Behavioral Scientist Relationship Specialty Start Date End Date Elsewhere, Pcp PCP - General 06/07/19 documented as of this encounter
--- OUTSIDE RECORDS SUMMARY | 2022-02-22 11:07 | XMS_ITS | Encounter Summary ---
:1960 Author Organization [facility] Address [address] [place] [address] Care Team Providers Name Role Phone Elsewhere, Pcp Primary Care Provider Unavailable Reason for Visit Auth/Cert Specialty Diagnoses / Procedures Referred By Contact Refer red To Contact Diagnoses Pain Knee Left Arthroplasty Total Knee Replacement Status Post Left Pain Knee Left [M25.562] Arthroplasty Total Knee Replacement Status Post Left [Z96.652] Procedures MS MANIP KNEE JT W ANES MANIPULATION KNEE Referral ID Status Reason Start Date Expiration Date Visits Requ ested Visits Authorized [id number] 1 1 Encounter Details Date Type Department Care Team Description 10/03/2021 Anesthesia Event [facility] MAIN OR Miriam Ge M.D. [address] [facility] [address] [facility] [place] [phone] [place] [phone] (Wo rk) Anesthesia Record Procedure Summary Procedure [...] Juli, Jason Mcgarry R.N. Aquacel, 6 double Jhon Peripheral IV Placement Date: 10/03/21; 10/03/21 1029 by 10/03 1230 by Placement Time: 1029; Janae Little R.N. Kimme s, Lori A, Orientation: Left; R.N. Location: Hand; Site Prep: Chlorhexidine (Preferred); Removal Date: 10/03/21; Removal Time: 1230; Removal Reason: Patient discharged Supraglottic Airway Placement Date: 10/03/21; 10/03/21 1051 by 0 10/03/21 1100 by Placement Time: 1051 Ekaterina Noble, Macario Noble, (created via procedure PROFESSIONAL NURSE, INSTRUCTOR CREELER PROFESSIONAL NURSE, CRN A documentation); Mask Ventilation: Easy mask; [...] you attend hindu or Patient refused 2021 mosque services? Do you belong to any clubs or No 12/20/2021 organizations such as hindu groups, unions, fraHorizontal Systems or athletic groups, or school groups? 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 - 10/03/2021 11:12 AM CDT Patient: Hussein Whittaker Procedure Summary Date: 10/03/21 Room / Location: [address] 01 [facility] - Anesthesia Start: 1047 Anesthesia Stop: 1104 Procedure: MANIPULATION KNEE (Left Knee) Diagnosis: Pain Knee Left Arthroplasty Total Knee Replacement Status Post Left (Pain Knee Left [M25.562]) (Arthroplasty Total Knee Replacement Status Post Left [Z96.652]) Surgeons: Dk Mijraes M.D. Responsible Provider: Miriam Ge M.D. Anesthesia [...] Status Post Left [Z96.652] Location: OR 04 [facility] 01 [facility] / [facility] - GI Surgeons: Dk Mijares M.D. Pertinent [...] with patient /legal guardian or through an staking engineer. The use of blood products not discussed [...] procedure ar e in the results section. MS US GUIDE PLC NDL Routine 10/03/2021 10:41 AM R esults for this CDT procedure are i n the results section. MS INJ ANES FEM Routine 10/03/2021 10:41 AM [...] ?? Ekaterina Noble APRN, CRNA ANESTHESIA ORDERABLES MS INJ ANES FEM NERVE, MS US GUIDE JAM NDL, ALINA ANE NERVE [...] sful procedure Other complications: none Ekaterina Noble PROFESSIONAL NURSE, INSTRUCTOR CREELER PROCEDURE/MINOR SURGICAL ORD ERABLES documented in this [...] mg documented in this encounter Care Teams Materials Planner Relationship Specialty Start Date End Date Elsewhere, Pcp PCP - General 06/07/19 documented as of this encounter
--- OUTSIDE RECORDS SUMMARY | 2022-02-22 11:07 | XMS_ITS | Encounter Summary ---
:1960 Author Organization [facility] Address [address] [place] [address] Care Team Providers Name Role Phone Elsewhere, [...] attend latter day or Patient refused 2021 synagogue services? 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
--- OUTSIDE RECORDS SUMMARY | 2022-02-22 11:07 | XMS_ITS | Encounter Summary ---
:1960 Author Organization [facility] Address [address] [place] [address] Care Team Providers Name Role Phone Elsewhere, Pcp Primary Care Provider Unavailable Reason for Visit Physical Therapy (Routine) - Authorized Specialty Diagnoses / Procedures Referred By Contact Refer red To Contact Diagnoses Primary Osteoarthritis Knee Left Dk Mijares M.D. [facility] Procedures PT Ongoing treatment [address] [place] [address] Referral ID Status Reason Start Date Expiration Date Visits V isits Requested Authorized [id number] Authorized 08/10/2021 05/18/2022 40 40 Encounter Details Date Type Department Care Team Description 10/30/2021 Clinical Support Department of Dk Mijares M.D. [address] [place] [phone] Primary Rehabilitation Maria Luisa Chaparro, P.T. Oste[facility] K[facility] [place] [address] [place] [phone] Social History Tobacco Use Types Packs/Day Years [...] you attend sikh or Patient refused 2021 anabaptism services? 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 - 10/30/2021 2:00 PM CDT Physical Therapy Outpatient Treatment Note SUBJECTIVE Patient's Name: Hussein Whittaker Referring Provider: Dk Mijares M.D. Visit Diagnosis: 1. Primary Osteoarthritis Knee Left Payor: [employer] INSURANCE / Plan: [employer] INSURANCE / Product Type: Indemnity / PT Next Certification Date: 08/08/2021 [facility] Visit Count: 10 Patient comments: Pt reports [...] Left documented in this encounter Care Teams Car Parker Relationship Specialty Start Date End Date Elsewhere, Pcp PCP - General 06/07/19 documented as of this encounter
--- OUTSIDE RECORDS SUMMARY | 2022-02-22 11:07 | XMS_ITS | Encounter Summary ---
:1960 Author Organization [facility] Address [address] [place] [address] Care Team Providers Name Role Phone Elsewhere, Pcp Primary Care Provider Unavailable Reason for Referral Outpatient (Routine) - Closed Specialty Diagnoses / Procedures Referred By Contact Refer red To Contact Diagnoses Pain Knee Left Nieves Hunter APRN, [facility] [place] [facility] Procedures DX Knee Left 3 Views C.N.P., D.N.P. [address] [place] [address] Referral ID Status Reason Start Date Expiration Date Visits Requ ested Visits Authorized [id number] Closed 10/23/2021 10/23/2022 1 1 Reason for Visit Outpatient (Routine) - Closed Specialty Diagnoses / Procedures Referred By Contact Refer red To Contact Diagnoses Pain Knee Left Nieves Hunter APRN, [facility] [place] [facility] Procedures DX Knee Left 3 Views C.N.P., D.N.P. [address] [place] [address] Referral ID Status Reason Start Date Expiration Date Visits Requ ested Visits Authorized [id number] Closed 10/23/2021 10/23/2022 1 1 Encounter Details Date Type Department Care Team Description 10/23/2021 Hospital Encounter Department of Nieves Hunter, Pain Knee Left Radiology in [place]P. [address] [phone] Social History Tobacco Use [...] you attend mormonism or Patient refused 2021 episcopalian services? 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
--- OUTSIDE RECORDS SUMMARY | 2022-02-22 11:07 | XMS_ITS | Encounter Summary ---
:1960 Author Organization [facility] Address [address] [place] [address] Care Team Providers Name Role Phone Elsewhere, Pcp Primary Care Provider Unavailable Reason for Visit Physical Therapy (Routine) - Authorized Specialty Diagnoses / Procedures Referred By Contact Refer red To Contact Diagnoses Primary Osteoarthritis Knee Left Dk Mijares M.D. [facility] Procedures PT Ongoing treatment [address] [place] [address] Referral ID Status Reason Start Date Expiration Date Visits V isits Requested Authorized [id number] Authorized 08/10/2021 05/18/2022 40 40 Encounter Details Date Type Department Care Team Description 10/18/2021 Clinical Support Department of Dk Mijares M.D. [address] [place] [phone] Primary Rehabilitation Maria Luisa Chaparro, P.T. Osteoarthritis K[facility] [place] [address] [place] [phone] Social History Tobacco Use Types Packs/Day Years [...] you attend sikhism or Patient refused 2021 rastafari services? Do you belong to any clubs or No 12/20/2021 organizations such as sikhism groups, unions, fraThe Orange Chef or athletic groups, or school groups? 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 - 10/18/2021 12:30 PM CDT Physical Therapy Outpatient Treatment Note SUBJECTIVE Patient's Name: Hussein Whittaker Referring Provider: Dk Mijares M.D. Visit Diagnosis: 1. Primary Osteoarthritis Knee Left Payor: [employer]VEL[employer] INSURANCE / Plan: [employer]VEL[employer] INSURANCE / Product Type: Indemnity / PT Next Certification Date: 08/08/2021 [facility] Visit Count: 7 Patient comments: Pt [...] Left documented in this encounter Care Teams Bath Attendant Relationship Specialty Start Date End Date Elsewhere, Pcp PCP - General 06/07/19 documented as of this encounter
--- OUTSIDE RECORDS SUMMARY | 2022-02-22 11:07 | XMS_ITS | Encounter Summary ---
:1960 Author Organization [facility] Address [address] [place] [address] Care Team Providers Name Role Phone Elsewhere, Pcp Primary Care Provider Unavailable Reason for Referral Outpatient (Routine) - Closed Specialty Diagnoses / Procedures Referred By Contact Refer red To Contact Orthopedic Surgery Diagnoses recheck Laurie Dumont, ANA, DALJIT [facility] C.N.P., D.N.P. [address] [phone] Referral ID Status Reason Start Date Expiration Date Visits Requ ested Visits Authorized [id number] Closed 10/03/2021 10/03/2022 1 1 Reason for Visit Auth/Cert Specialty Diagnoses / Procedures Referred By Contact Refer red To Contact Diagnoses Pain Knee Left Arthroplasty Total Knee Replacement Status Post Left Pain Knee Left [M25.562] Arthroplasty Total Knee Replacement Status Post Left [Z96.652] Procedures HI MANIP KNEE JT W ANES MANIPULATION KNEE Referral ID Status Reason Start Date Expiration Date Visits Requ ested Visits Authorized [id number] 1 1 Encounter Details Date Type Department Care Team Description 10/03/2021 Hospital Encounter [facility] MAIN OR Dk Mijares Pain Knee Left; Zehra Bui M.D. Arthroplasty Total Knee Replacement Stat us Post Left JULIAN LASSITER [address] [address] JULIAN Lassiter [phone] Social History Tobacco Use Types Packs/Day [...] you attend synagogue or Patient refused 2021 evangelical services? 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
--- OUTSIDE RECORDS SUMMARY | 2022-02-22 11:07 | XMS_ITS | Encounter Summary ---
:1960 Author Organization [facility] Address [address] [place] [address] Care Team Providers Name Role Phone Elsewhere, Pcp Primary Care Provider Unavailable Reason for Visit Physical Therapy (Routine) - Authorized Specialty Diagnoses / Procedures Referred By Contact Refer red To Contact Diagnoses Primary Osteoarthritis Knee Left Dk Mijares M.D. [facility] Procedures PT Ongoing treatment [address] [place] [address] Referral ID Status Reason Start Date Expiration Date Visits V isits Requested Authorized [id number] Authorized 08/10/2021 05/18/2022 40 40 Encounter Details Date Type Department Care Team Description 10/16/2021 Clinical Support Department of Dk Mijares M.D. [address] [place] [phone] Primary Rehabilitation Maria Luisa Chaparro, P.T. Osteoarthritis Knee Services [place] [address] [place] [phone] Social History Tobacco Use Types Packs/Day Years [...] organizations such as roman catholic groups, unions, fraIntelliGeneScan or athletic groups, or school groups? 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
--- OUTSIDE RECORDS SUMMARY | 2022-02-22 11:07 | XMS_ITS | Encounter Summary ---
:1960 Author Organization [facility] Address [address] [place] [address] Care Team Providers Name Role Phone Elsewhere, Pcp Primary Care Provider Unavailable Reason for Referral Outpatient (Routine) - Closed Specialty Diagnoses / Procedures Referred By Contact Refer red To Contact Diagnoses Pain Knee Left Nieves Hunter, ANA, DALJIT [facility] Procedures DX Knee Left 3 Views C.N.P., D.N.P. [address] [place] [address] Referral ID Status Reason Start Date Expiration Date Visits Requ ested Visits Authorized [id number] Closed 10/23/2021 10/23/2022 1 1 Reason for Visit Reason Comments Post-op Outpatient (Routine) - Closed Specialty Diagnoses / Procedures Referred By Contact Refer red To Contact Orthopedic Surgery Diagnoses post op Dk Mijares M.D. [facility] [address] [place] [phone] Referral ID Status Reason Start Date Expiration Date Visits Requ ested Visits Authorized [id number] Closed 09/18/2021 09/18/2022 1 1 Encounter Details Date Type Department Care Team Description 10/23/2021 Office Visit Department of Nieves Hunter, Pain Knee L eft Orthopedic Surgery in [place].N.PFarsh[place], (Prim marissa Dx) Arun Garcia D.N.P. [address] [phone] Social History Tobacco Use [...] you attend taoism or Patient refused 2021 jewish services? 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
--- OUTSIDE RECORDS SUMMARY | 2022-02-22 11:07 | XMS_ITS | Encounter Summary ---
:1960 Author Organization [facility] Address [address] [place] [address] Care Team Providers Name Role Phone Elsewhere, Pcp Primary Care Provider Unavailable Reason for Referral Outpatient (Routine) - Authorized Specialty Diagnoses / Procedures Referred By Contact Refer red To Contact Audiology Diagnoses Loss Hearing Bilateral Chica Rodriguez APRN, [facility] C.N.P., D.N.P. [address] [place] [address] [place] [address] Referral ID Status Reason Start Date Expiration Date Visits V isits Requested Authorized [id number] Authorized 10/08/2021 10/08/2022 1 1 Encounter Details Date Type Department Care Team Description 10/08/2021 Orders Only Department of [facility] Chica Rodriguez Lo Hearing Bilateral Medicine, [place] ANA, C.N.P., ([facility], in [place] [address] [place] [phone] Social History Tobacco Use Types [...] you attend yarsani or Patient refused 2021 anglican services? Do you belong to any clubs or No 12/20/2021 organizations such as yarsani groups, unions, fraInotek Pharmaceuticals or athletic groups, or school groups? 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
--- OUTSIDE RECORDS SUMMARY | 2022-02-22 11:08 | XMS_ITS | Encounter Summary ---
:1960 Author Organization [facility] Address [address] [place] [address] Care Team Providers Name Role Phone Elsewhere, Pcp Primary Care Provider Unavailable Reason for Visit Reason Comments Arthroplasty Concerned about ROM Post-op Concerned about ROM Outpatient (Routine) - Pending Review Specialty Diagnoses / Procedures Referred By Contact Refer red To Contact Orthopedic Surgery Diagnoses post op Dk Mijares M.D. [facility] [address] [place] [phone] Referral ID Status Reason Start Date Expiration Date Visits V isits Requested Authorized [id number] Pending 08/21/2021 08/21/2022 1 1 Review Encounter Details Date Type Department Care Team Description 09/18/2021 Office Visit Department of Dk Mijares Follow Up E xamination Orthopedic Surgery meli Bui M.D. Postoperative Visit Arun Garcia [address] [place] [address] (Primary Dx) [place], [place] [phone] [place] [address] [place] [phone] (Work) [phone] Social History Tobacco Use Types Packs/Day Years [...] you attend caodaism or Patient refused 2021 shinto services? 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
--- OUTSIDE RECORDS SUMMARY | 2022-02-22 11:08 | XMS_ITS | Encounter Summary ---
:1960 Author Organization [facility] Address [address] [place] [address] Care Team Providers Name Role Phone Elsewhere, Pcp Primary Care Provider Unavailable Reason for Referral Outpatient (Routine) - Pending Review Specialty Diagnoses / Procedures Referred By Contact Refer red To Contact Orthopedic Surgery Diagnoses Nieves Hunter APRN, GURVINDERS [facility] C.N.P., D.N.P. [address] [facility] [place] [address] Referral ID Status Reason Start Date Expiration Date Visits V isits Requested Authorized [id number] Pending 08/07/2021 08/07/2022 1 1 Review Scheduling Instructions Ordered images/tests are associated with this appointment. 2 week follow up Reason for Visit Auth/Cert Specialty Diagnoses / Procedures Referred By Contact Refer red To Contact Diagnoses Primary Osteoarthritis Knee Left Primary Osteoarthritis Knee Left [M17.12] Procedures [place] ARTHRO KNEE CONDYLE&PLAT (TKA) BARBER ROBOTIC-ASSISTED KNEE TOTAL ARTHROPLASTY - LEFT Referral ID Status Reason Start Date Expiration Date Visits Requ ested Visits Authorized [id number] 1 1 Encounter Details Date Type Department Care Team Description 08/06/2021 - Hospital [facility] Dk Mijares Primary Oste oarthritis 08/07/2021 [facility], [address] [place] [address] Third Floor [place] [address] [facility] [address] [place] [phone] [address] (Work) [phone] Social History Tobacco Use Types Packs/Day Years [...] you attend catholic or Patient refused 2021 yazidism services? 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 Primary [...] APRN, C.N.P., D.N.P.Laurie Dumont APRN, C.N.P., D.N.P. [facility] OR DISCHARGE DISPOSITION Home or Self Care [...] next session: DC home outpatient PT in [place] Inpatient AVS Complete - PT: Yes Time [...] home with outpatient therapy set up in [place] to address remaining impairments of range of [...] Procedure: COLONOSCOPY; Surgeon: Kavon Espino M.D.; Location: [facility] OR ??? 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 [facility]'s 3-year data, as reported at [facility] 2017, indicates a cut off of 39.4 or greater in daily activity is a fair to good accurate prediction of discharge home. Source: AM-PAC ???6 -Clicks?? functional assessment scores predict acute care hospital discharge destination. A&P Mechanic. 2014 Jan; 94 (9): 1252-61. AM-PAC Activity: [...] while seated, threadingsurgical lower extremity 1st, using roller stainer if needed; patient receptive Toileting Toileting Location: [...] a 60 y.o. year old admit to [facility] [place] following a left TKA on 08/06/2021. [...] recliner or while in bed ??? Obtain/utilize roller stainer, sock aid, shower chair, and other AE/DME as needed to complete daily tasks Bathroom Safety Equipment ([id number]); Home Safety Tips ([id number]); Safe Car Transfer Handout; Adaptive Equipment Information [...] Goal #2 Date: 08/07/21 OT Goal #3: uHssein Whittaker will demo understanding of safe functional/ADL [...] treat. TKA protocol Onset Date: 08/06/21 Payor: [employer] / Plan: [facility] / Product Type: PPO / PERTINENT MEDICAL [...] Procedure: COLONOSCOPY; Surgeon: Kavon Espino M.D.; Location: [facility] OR ??? 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 Can do some beater worker helper, but also needs to be able to [...] AM-PAC Basic Mobility (V.2) Standardized Score: 43.99 -[facility] 6 Clicks Interpretation: Clinicians answer the AM-PAC Inpatient Short Form based on observed patient activity and/or clinicaljudgement (ie. Patient can be scored without physically performing each activity). According to raw scoring guidelines: Those going to home had an average score of 20.1 Those going home with home care had an average score of 17.9 Those going to chcf facility had an average score of 14 Those going to inpatient rehab facility had an average score of 13.6 Those going to a computer terminal operator care facility had an average score [...] total knee arthroplasty. SURGEON: Dk Mijares M.D. UNDERGROUND ELECTRICIAN: Dr. Luis Fu A assistant plant control operator actively participated and was necessary for one [...] using #1 Vicryl in a n interrupted [id number] fashion followed by copious irrigation of subcutaneous tissue with closure of this using 2-0 Vicryl. The skin was then closed using ZipLine device followed by SharesVault dressing and BERNABE bandage. The tourniquet was [...] Code Phon e Number [facility]- Ze[address], [place] [address] [address] [facility] [place] [address] System in [place] [address] documented in this encounter [...] pain; not continuous) 001 (Given - Provider: Clara Swann R.N.)0633 (Given [...] 0848 (Given - Provider: Keaton Valdez APRN, SYSTEM OPERATOR) 1,000 mg (1 g), intravenous, at 300 [...] R.N.)0812 (Rate/Dose Verify - Provider: Keaton Valdez, ASSISTANT READING TEACHER, SYSTEM OPERATOR)0916 (New Bag - Provider: Maeve Pino R.N.)1030 [...] hours).
documented in this encounter Care Teams Mail Forwarding System Markup Clerk Relationship Specialty Start Date End Date Elsewhere, Pcp PCP - General 06/07/19 documented as of this encounter
--- OUTSIDE RECORDS SUMMARY | 2022-02-22 11:08 | XMS_ITS | Encounter Summary ---
:1960 Author Organization [facility] Address [address] [place] [address] Care Team Providers Name Role Phone Elsewhere, Pcp Primary Care Provider Unavailable Encounter Details Date Type Department Care Team Description 10/01/2021 Hospital Encounter Department of Dk Mijares Laboratory Medicine Adrian Bui Preprocedural in [address] Laboratory [place] [phone] (COVID-19) [facility] [phone] [place], [place] (Work) [phone] Social History Tobacco Use [...] you attend moravian or Patient refused 2021 catholic services? 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 Food and Drug Administ ration. Fact sheets for this EUA assay can be fo und at the following links: For Healthcare Providers: https://www.fd a.gov/media/304874/download For Patients: https://www.fda.gov/media/ 809775/download Specimen Anatomical Collection Method Collection Time Receive d Time (Source) Location / / Volume Laterality Varies 10/01/2021 9:51 AM 3:09 (Nasopharynx) CDT PM CDT Dk Mijares M.D. LAB MICROBIOLOGY - GENERAL O RDERABLES Performing Organization Address City/State/ZIP Code Phon e Number [facility]- [address] [place] [address] [phone] [facility] [place] [address] documented in this encounter Visit Diagnoses Diagnosis Encounter For Preprocedural Laboratory E xamination (COVID-19) documented in this encounter Additional Health Concerns Infection Onset Date Last Indicated Resolved Time COVID19 Pending 10/01/2021 10/01/2021 10/01/2021 8:55 PM CDT documented as of this encounter Care Teams Water Chaser Relationship Specialty Start Date End Date Elsewhere, Pcp PCP - General 06/07/19 documented as of this encounter
--- OUTSIDE RECORDS SUMMARY | 2022-02-22 11:08 | XMS_ITS | Encounter Summary ---
:1960 Author Organization [facility] Address [address] [place] [address] Care Team Providers Name Role Phone Elsewhere, Pcp Primary Care Provider Unavailable Reason for Visit Physical Therapy (Routine) - Authorized Specialty Diagnoses / Procedures Referred By Contact Refer red To Contact Diagnoses Primary Osteoarthritis Knee Left Dk Mijares M.D. [facility] Procedures PT Ongoing treatment [address] [place] [address] Referral ID Status Reason Start Date Expiration Date Visits V isits Requested Authorized [id number] Authorized 08/10/2021 05/18/2022 40 40 Encounter Details Date Type Department Care Team Description 09/07/2021 Clinical Support Department of Dk Mijares M.D. [address] [place] [phone] Primary Rehabilitation Constance Shea, P.T. [address] [place], [place] [address] [place] [address] Osteoarthritis Knee Services in [address] [phone] Social History Tobacco Use Types Packs/Day Years [...] you attend mormonism or Patient refused 2021 christianity services? Do you belong to any clubs or No 12/20/2021 organizations such as mormonism groups, unions, fraFreeman Motorbikes or athletic groups, or school groups? 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
--- OUTSIDE RECORDS SUMMARY | 2022-02-22 11:08 | XMS_ITS | Encounter Summary ---
:1960 Author Organization [facility] Address [address] [place] [address] Care Team Providers Name Role Phone Elsewhere, Pcp Primary Care Provider Unavailable Reason for Visit Physical Therapy (Routine) - Authorized Specialty Diagnoses / Procedures Referred By Contact Refer red To Contact Diagnoses Primary Osteoarthritis Knee Left Dk Mijares M.D. [facility] Procedures PT Ongoing treatment [address] [place] [address] Referral ID Status Reason Start Date Expiration Date Visits V isits Requested Authorized [id number] Authorized 08/10/2021 05/18/2022 40 40 Encounter Details Date Type Department Care Team Description 09/05/2021 Clinical Support Department of Dk Mijares M.D. [address] [place] [phone] Primary Rehabilitation Dian Clarke, P.T. [address] [place] [address] [place] [address] Osteoarthritis Knee Services in [address] [phone] Social History Tobacco Use Types Packs/Day Years [...] you attend pentecostal or Patient refused 2021 episcopal services? Do you belong to any clubs or No 12/20/2021 organizations such as pentecostal groups, unions, fraSpecial Network Services or athletic groups, or school groups? 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 - 09/05/2021 8:30 AM CDT Physical Therapy Outpatient Treatment Note SUBJECTIVE Patient's Name: Hussein Osiel Panfilo Referring Provider: Dk Mijares M.D. Visit Diagnosis: 1. Primary Osteoarthritis Knee Left Payor: [facility] / Plan: [facility] [place] / Product Type: PPO / PT Next Certification Date: 08/08/2021 [facility] Visit Count: 8 Patient comments: Patient [...] Left documented in this encounter Care Teams Cast Associate Relationship Specialty Start Date End Date Elsewhere, Pcp PCP - General 06/07/19 documented as of this encounter
--- OUTSIDE RECORDS SUMMARY | 2022-02-22 11:08 | XMS_ITS | Encounter Summary ---
:1960 Author Organization [facility] Address [address] [place] [address] Care Team Providers Name Role Phone Elsewhere, Pcp Primary Care Provider Unavailable Reason for Visit Reason Comments Nocturia Recent total knee Dr Mijares Encounter Details Date Type Department Care Team Description 08/08/2021 Clinical Communication Department of Dk Mijares (Recent Orthopedic Surgery Adrian Bui total knee Dr [facility] [place] [address] [address] [place], [place] [phone] [address] (Work) [phone] Social History Tobacco Use Types Packs/Day Years [...] you attend temple or Patient refused 2021 gnosticist services? 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 Dr Mijares team notified. documented in this encounter Plan of Treatment Not on filedocumented as of this encounter Visit Diagnoses Not on filedocumented in this encounter Care Teams Information Director Relationship Specialty Start Date End Date Elsewhere, Pcp PCP - General 06/07/19 documented as of this encounter
--- OUTSIDE RECORDS SUMMARY | 2022-02-22 11:08 | XMS_ITS | Encounter Summary ---
:1960 Author Organization [facility] Address [address] [place] [address] Care Team Providers Name Role Phone Elsewhere, Pcp Primary Care Provider Unavailable Reason for Visit Physical Therapy (Routine) - Authorized Specialty Diagnoses / Procedures Referred By Contact Refer red To Contact Diagnoses Primary Osteoarthritis Knee Left Dk Mijares M.D. [facility] Procedures PT Ongoing treatment [address] [place] [address] Referral ID Status Reason Start Date Expiration Date Visits V isits Requested Authorized [id number] Authorized 08/10/2021 05/18/2022 40 40 Encounter Details Date Type Department Care Team Description 08/27/2021 Clinical Support Department of Dk Mijares M.D. [address] [place] [phone] Primary Rehabilitation Dian Clarke, P.T. [address] [place], [place] [address]on [place] [address] Osteoarthritis Knee Services in [address] [phone] Social History Tobacco Use Types Packs/Day Years [...] you attend anabaptism or Patient refused 2021 spiritism services? 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 - 08/27/2021 2:15 PM CDT Physical Therapy Outpatient Treatment Note SUBJECTIVE Patient's Name: Hussein Whittaker Referring Provider: Dk Mijares M.D. Visit Diagnosis: 1. Primary Osteoarthritis Knee Left Payor: [employer] / Plan: [employer] / Product Type: Indemnity / PT Next Certification Date: 08/08/2021 [facility] Visit Count: 6 Patient comments: Patient [...] Left documented in this encounter Care Teams Special Procedure Technologist Relationship Specialty Start Date End Date Elsewhere, Pcp PCP - General 06/07/19 documented as of this encounter
--- OUTSIDE RECORDS SUMMARY | 2022-02-22 11:08 | XMS_ITS | Encounter Summary ---
:1960 Author Organization [facility] Address [address] [place] [address] Care Team Providers Name Role Phone Elsewhere, Pcp Primary Care Provider Unavailable Reason for Visit Physical Therapy (Routine) - Authorized Specialty Diagnoses / Procedures Referred By Contact Refer red To Contact Diagnoses Primary Osteoarthritis Knee Left Dk Mijares M.D. [facility] Procedures PT Ongoing treatment [address] [place] [address] Referral ID Status Reason Start Date Expiration Date Visits V isits Requested Authorized [id number] Authorized 08/10/2021 05/18/2022 40 40 Encounter Details Date Type Department Care Team Description 08/30/2021 Clinical Support Department of Dk Mijares M.D. [address] [place] [phone] Primary Rehabilitation Dian Clarke, P.T. [address] [place], [place] [address] [address] Osteoarthritis Knee Services in [address] [phone] Social History Tobacco Use Types Packs/Day Years [...] you attend alevism or Patient refused 2021 sikhism services? Do you belong to any clubs or No 12/20/2021 organizations such as alevism groups, unions, fraLuxera or athletic groups, or school groups? 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 - 08/30/2021 2:45 PM CDT Physical Therapy Outpatient Treatment Note SUBJECTIVE Patient's Name: Hussein Osiel Panfilo Referring Provider: Dk Mijares M.D. Visit Diagnosis: 1. Primary Osteoarthritis Knee Left Payor: [employer] / Plan: [employer] / Product Type: Indemnity / PT Next Certification Date: 08/08/2021 [facility] Visit Count: 7 Patient comments: Patient [...] Left documented in this encounter Care Teams Auxiliary Operator Relationship Specialty Start Date End Date Elsewhere, Pcp PCP - General 06/07/19 documented as of this encounter
--- OUTSIDE RECORDS SUMMARY | 2022-02-22 11:08 | XMS_ITS | Encounter Summary ---
:1960 Author Organization [facility] Address [address] [place] [address] Care Team Providers Name Role Phone Elsewhere, Pcp Primary Care Provider Unavailable Reason for Visit Physical Therapy (Routine) - Authorized Specialty Diagnoses / Procedures Referred By Contact Refer red To Contact Diagnoses Primary Osteoarthritis Knee Left Dk Mijares M.D. [facility] Procedures PT Ongoing treatment [address] [place] [address] Referral ID Status Reason Start Date Expiration Date Visits V isits Requested Authorized [id number] Authorized 08/10/2021 05/18/2022 40 40 Encounter Details Date Type Department Care Team Description 09/13/2021 Clinical Support Department of Dk Mijares M.D. [address] [place] [phone] Primary Rehabilitation Dian Clarke, P.T. [address] [place] [address] [place] [address] Osteoarthritis Knee Services in [address] [phone] Social History Tobacco Use Types Packs/Day Years [...] you attend advent or Patient refused 2021 adventism services? Do you belong to any clubs or No 12/20/2021 organizations such as advent groups, unions, fraMeshify or athletic groups, or school groups? 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 - 09/13/2021 9:15 AM CDT Physical Therapy Outpatient Treatment Note SUBJECTIVE Patient's Name: Hussein Whittaker Referring Provider: Dk Mijares M.D. Visit Diagnosis: 1. Primary Osteoarthritis Knee Left Payor: [employer] / Plan: [employer] / Product Type: Indemnity / PT Next Certification Date: 08/08/2021 [facility] Visit Count: 11 Patient comments: He [...] documented in this encounter Care Teams Car Pick Up Driver Relationship Specialty Start Date End Date Elsewhere, Pcp PCP - General 06/07/19 documented as of this encounter
--- OUTSIDE RECORDS SUMMARY | 2022-02-22 11:08 | XMS_ITS | Encounter Summary ---
:1960 Author Organization [facility] Address [address] [place] [address] Care Team Providers Name Role Phone Elsewhere, Pcp Primary Care Provider Unavailable Reason for Referral Outpatient (Routine) - Closed Specialty Diagnoses / Procedures Referred By Contact Refer red To Contact Diagnoses Aftercare Total Knee Arthroplasty Nieves Hunter APRN, [facility] [place] [facility] Procedures DX Knee Left 3 Views C.N.P., D.N.P. [address] [place] [address] Referral ID Status Reason Start Date Expiration Date Visits Requ ested Visits Authorized [id number] Closed 08/21/2021 08/21/2022 1 1 Reason for Visit Outpatient (Routine) - Closed Specialty Diagnoses / Procedures Referred By Contact Refer red To Contact Diagnoses Aftercare Total Knee Arthroplasty Nieves Hunter APRN, [facility] [place] [facility] Procedures DX Knee Left 3 Views C.N.P., D.N.P. [address] [place] [address] Referral ID Status Reason Start Date Expiration Date Visits Requ ested Visits Authorized [id number] Closed 08/21/2021 08/21/2022 1 1 Encounter Details Date Type Department Care Team Description 08/21/2021 Hospital Encounter Department of Nieves Hunter, After care Total Knee Radiology in [place] [facility], C.N.PFarshad, [place], [place] D.N.P. [address] [phone] Social History Tobacco Use Types Packs/Day [...] you attend amish or Patient refused 2021 protestant services? 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
--- OUTSIDE RECORDS SUMMARY | 2022-02-22 11:08 | XMS_ITS | Encounter Summary ---
:1960 Author Organization [facility] Address [address] [place] [address] Care Team Providers Name Role Phone Elsewhere, Pcp Primary Care Provider Unavailable Reason for Visit Physical Therapy (Routine) - Authorized Specialty Diagnoses / Procedures Referred By Contact Refer red To Contact Diagnoses Primary Osteoarthritis Knee Left Dk Mijares M.D. [facility] Procedures PT Ongoing treatment [address] [place] [address] Referral ID Status Reason Start Date Expiration Date Visits V isits Requested Authorized [id number] Authorized 08/10/2021 05/18/2022 40 40 Encounter Details Date Type Department Care Team Description 08/13/2021 Clinical Support Department of Dk Mijares M.D. [address] [place] [phone] Primary Rehabilitation Dian Clarke, P.T. [address] [place] [address] [place] [address] Osteoarthritis Knee Services in [address] [phone] Social History Tobacco Use Types Packs/Day Years [...] attend oriental orthodox or Patient refused 2021 congregation services? Do you belong to any clubs or No 12/20/2021 organizations such as oriental orthodox groups, unions, fraOutdoor Creations or athletic groups, or school groups? 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 - 08/13/2021 12:45 PM CDT Physical Therapy Outpatient Treatment Note SUBJECTIVE Patient's Name: Hussein Whittaker Referring Provider: Dk Mijares M.D. Visit Diagnosis: 1. Primary Osteoarthritis Knee Left Payor: [facility] / Plan: [facility] [place] / Product Type: PPO / PT Next Certification Date: 08/08/2021 [facility] Visit Count: 2 Patient comments: Patient [...] stretches at 3x 30 seconds. Performed the [employer] Total body ergometer times 10 minutes at [...] Left documented in this encounter Care Teams Banquet Cook Relationship Specialty Start Date End Date Elsewhere, Pcp PCP - General 06/07/19 documented as of this encounter
--- OUTSIDE RECORDS SUMMARY | 2022-02-22 11:08 | XMS_ITS | Encounter Summary ---
:1960 Author Organization [facility] Address [address] [place] [address] Care Team Providers Name Role Phone Elsewhere, Pcp Primary Care Provider Unavailable Reason for Referral Physical Therapy (Routine) - Closed Specialty Diagnoses / Procedures Referred By Contact Refer red To Contact Diagnoses Arthroplasty Total Knee Replacement Status Post Left Pain Knee Left Dk Mijares M.D. [facility] Procedures PT Evaluate and treat [address] [place] [phone] Referral ID Status Reason Start Date Expiration Date Visits Requ ested Visits Authorized [id number] Closed 09/18/2021 09/18/2022 1 1 Outpatient (Routine) - Closed Specialty Diagnoses / Procedures Referred By Contact Refer red To Contact Orthopedic Surgery Diagnoses post op Dk Mijares M.D. [facility] [address] [phone] Referral ID Status Reason Start Date Expiration Date Visits Requ ested Visits Authorized [id number] Closed 09/18/2021 09/18/2022 1 1 Outpatient (Routine) - Closed Specialty Diagnoses / Procedures Referred By Contact Refer red To Contact Anesthesiology Diagnoses Preoperative Exam Dk Mijares M.D. [facility] [address] [phone] Referral ID Status Reason Start Date Expiration Date Visits Requ ested Visits Authorized [id number] Closed 09/18/2021 09/18/2022 1 1 Encounter Details Date Type Department Care Team Description 09/18/2021 Clinical Communication Department of Dk Mijares , Orthopedic Surgery in [place], [place] [address] [place] [address] [place] [phone] Social History Tobacco Use Types Packs/Day Years [...] or relatives? How often do you attend rastafarian or Patient refused 2021 mu-ism services? 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 - 09/18/2021 2:26 PM CDT Scheduled left knee manipulation on 10/03/[address] Mijares in [place]. CPM ordered and faxed. documented in this [...] RNA, V Asymptomatic (10/01/2021 9:51 AM CDT) [facility] Method Time Signature SARS-CoV-2 Swab, 10/01/2021 [...] pe rformed using the Aptima SARS-CoV-2 assay ([employer] on the Cortona3Ds tem under emergency use authorization (EUA) by the U.S. Food and Drug Administ ration. Fact sheets for this EUA assay can be fo und at the following links: For Healthcare Providers: https://www.fd a.gov/media/327806/download For Patients: https://www.fda.gov/media/ 985398/download Specimen Anatomical Collection Method Collection Time Receive d Time (Source) Location / / Volume Laterality Varies 10/01/2021 9:51 AM 3:09 (Nasopharynx) CDT PM CDT Dk M Mijares M.D. LAB MICROBIOLOGY - GENERAL O RDERABLES Performing Organization Address City/State/ZIP Code Phon e Number [facility]- [address] [place] [address] [phone] [facility] [address] [address] [place] [address] [address] documented in this encounter Visit Diagnoses Diagnosis Encounter For Preprocedural Laboratory E xamination (COVID-19) - Primary Arthroplasty Total Knee Replacement Stat us Post Left Pain Knee Left Preoperative Exam documented in this encounter Care Teams Java Manager Relationship Specialty Start Date End Date Elsewhere, Pcp PCP - General 06/07/19 documented as of this encounter
--- OUTSIDE RECORDS SUMMARY | 2022-02-22 11:08 | XMS_ITS | Encounter Summary ---
:1960 Author Organization [facility] Address [address] [place] [address] Care Team Providers Name Role Phone Elsewhere, Pcp Primary Care Provider Unavailable Reason for Visit Physical Therapy (Routine) - Authorized Specialty Diagnoses / Procedures Referred By Contact Refer red To Contact Diagnoses Primary Osteoarthritis Knee Left Dk Mijares M.D. [facility] Procedures PT Ongoing treatment [address] [place] [phone] Referral ID Status Reason Start Date Expiration Date Visits V isits Requested Authorized [id number] Authorized 08/10/2021 05/18/2022 40 40 Encounter Details Date Type Department Care Team Description 08/23/2021 Clinical Support Department of Dk Mijares M.D. [address] [place] [phone] Primary Rehabilitation Dian Clarke, P.T. [address] [place], [place] [address] [address] Osteoarthritis Knee Services in [address] [phone] Social History Tobacco Use Types Packs/Day Years [...] you attend zoroastrian or Patient refused 2021 yazidi services? Do you belong to any clubs or No 12/20/2021 organizations such as zoroastrian groups, unions, fraTaiwan Yuandong Group or athletic groups, or school groups? 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 - 08/23/2021 2:00 PM CDT Physical Therapy Outpatient Treatment Note SUBJECTIVE Patient's Name: Hussein Whittaker Referring Provider: Dk Mijares M.D. Visit Diagnosis: 1. Primary Osteoarthritis Knee Left Payor: TRAVELERS INSURANCE / Plan: TRAVELERS INSURANCE / Product Type: Indemnity / PT Next Certification Date: 08/08/2021 [facility] Visit Count: 5 Patient comments: Patient reports [...] Left documented in this encounter Care Teams Strand Galvanizer Relationship Specialty Start Date End Date Elsewhere, Pcp PCP - General 06/07/19 documented as of this encounter
--- OUTSIDE RECORDS SUMMARY | 2022-02-22 11:08 | XMS_ITS | Encounter Summary ---
:1960 Author Organization [facility] Address [address] [place] [address] Care Team Providers Name Role Phone Elsewhere, Pcp Primary Care Provider Unavailable Encounter Details Date Type Department Care Team Description 08/13/2021 Orders Only Pharmacy Prior Auth [place] Alisha Whiting [phone] Social History Tobacco Use Types Packs/Day Years [...] you attend buddhist or Patient refused 2021 mosque services? 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
--- OUTSIDE RECORDS SUMMARY | 2022-02-22 11:08 | XMS_ITS | Encounter Summary ---
:1960 Author Organization [facility] Address [address] [place] [address] Care Team Providers Name Role Phone Elsewhere, [...] you attend amish or Patient refused 2021 zoroastrianism services? 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
--- OUTSIDE RECORDS SUMMARY | 2022-02-22 11:08 | XMS_ITS | Encounter Summary ---
:1960 Author Organization [facility] Address [address] [place] [address] Care Team Providers Name Role Phone Elsewhere, Pcp Primary Care Provider Unavailable Reason for Referral Outpatient (Routine) - Pending Review Specialty Diagnoses / Procedures Referred By Contact Refer red To Contact Orthopedic Surgery Diagnoses post op Dk Mijares M.D. [facility] [address] [place] [phone] Referral ID Status Reason Start Date Expiration Date Visits V isits Requested Authorized [id number] Pending 08/21/2021 08/21/2022 1 1 Review Outpatient (Routine) - Closed Specialty Diagnoses / Procedures Referred By Contact Refer red To Contact Diagnoses Aftercare Total Knee Arthroplasty Nieves Hunter APRN, [facility] Procedures DX Knee Left 3 Views C.N.P., D.N.P. [address] [place] [phone] Referral ID Status Reason Start Date Expiration Date Visits Requ ested Visits Authorized [id number] Closed 08/21/2021 08/21/2022 1 1 Reason for Visit Outpatient (Routine) - Pending Review Specialty Diagnoses / Procedures Referred By Contact Refer red To Contact Orthopedic Surgery Diagnoses Dk Mijares M.D. [facility] [address] [place] [phone] Referral ID Status Reason Start Date Expiration Date Visits V lesly Requested Authorized [id number] Pending 06/28/2021 06/28/2022 1 1 Review Encounter Details Date Type Department Care Team Description 08/21/2021 Office Visit Department of Dk Mijares, Esme lugo Total Knee Orthopedic Surgery in M.DFarshad Arthroplasty (Primary [place] Garcia, [address] [facility] [place]) [place] [address] [address] [place], [place] [phone] [address] (Work) [phone] Social History Tobacco Use Types Packs/Day Years [...] you attend religion or Patient refused 2021 catholic services? 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
--- OUTSIDE RECORDS SUMMARY | 2022-02-22 11:08 | XMS_ITS | Encounter Summary ---
:1960 Author Organization [facility] Address [address] [place] [address] Care Team Providers Name Role Phone Elsewhere, Pcp Primary Care Provider Unavailable Reason for Visit Physical Therapy (Routine) - Authorized Specialty Diagnoses / Procedures Referred By Contact Refer red To Contact Diagnoses Primary Osteoarthritis Knee Left Dk Mijares M.D. [facility] Procedures PT Ongoing treatment [address] [place] [phone] Referral ID Status Reason Start Date Expiration Date Visits V isits Requested Authorized [id number] Authorized 08/10/2021 05/18/2022 40 40 Encounter Details Date Type Department Care Team Description 09/11/2021 Clinical Support Department of Dk Mijares M.D. [address] [place] [phone] Primary Rehabilitation Dian Clarke, P.T. [address] [place], [place] [address] [place] [address] Osteoarthritis Knee Services in [address] [phone] Social History Tobacco Use Types Packs/Day Years [...] you attend yazdanism or Patient refused 2021 gnosticist services? Do you belong to any clubs or No 12/20/2021 organizations such as yazdanism groups, unions, fraVoxeet or athletic groups, or school groups? 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 - 09/11/2021 9:15 AM CDT Physical Therapy Outpatient Treatment Note SUBJECTIVE Patient's Name: Hussein Osiel Panfilo Referring Provider: Dk Mijares M.D. Visit Diagnosis: 1. Primary Osteoarthritis Knee Left Payor: TRAVELERS INSURANCE / Plan: TRAVELERS INSURANCE / Product Type: Indemnity / PT Next Certification Date: 08/08/2021 [facility] Visit Count: 10 Patient comments: Patient [...] Left documented in this encounter Care Teams Cost Manager Relationship Specialty Start Date End Date Elsewhere, Pcp PCP - General 06/07/19 documented as of this encounter
--- OUTSIDE RECORDS SUMMARY | 2022-02-22 11:08 | XMS_ITS | Encounter Summary ---
:1960 Author Organization [facility] Address [address] [place] [address] Care Team Providers Name Role Phone Elsewhere, Pcp Primary Care Provider Unavailable Reason for Visit Physical Therapy (Routine) - Authorized Specialty Diagnoses / Procedures Referred By Contact Refer red To Contact Diagnoses Primary Osteoarthritis Knee Left Dk Mijares M.D. [facility] Procedures PT Ongoing treatment [address] [place] [phone] Referral ID Status Reason Start Date Expiration Date Visits V isits Requested Authorized [id number] Authorized 08/10/2021 05/18/2022 40 40 Encounter Details Date Type Department Care Team Description 09/19/2021 Clinical Support Department of Dk Mijares M.D. [address] [place] [phone] Primary Rehabilitation Maria Luisa Chaparro, P.T. Osteoarthritis Knee Services in [place] [address] [place] [phone] Social History Tobacco Use Types Packs/Day Years [...] you attend adventist or Patient refused 2021 rastafarian services? 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
--- OUTSIDE RECORDS SUMMARY | 2022-02-22 11:08 | XMS_ITS | Encounter Summary ---
:1960 Author Organization [facility] Address [address] [place] [address] Care Team Providers Name Role Phone Elsewhere, Pcp Primary Care Provider Unavailable Reason for Visit Physical Therapy (Routine) - Authorized Specialty Diagnoses / Procedures Referred By Contact Refer red To Contact Diagnoses Primary Osteoarthritis Knee Left Dk Mijares M.D. [facility] Procedures PT Ongoing treatment [address] [place] [address] Referral ID Status Reason Start Date Expiration Date Visits V isits Requested Authorized [id number] Authorized 08/10/2021 05/18/2022 40 40 Encounter Details Date Type Department Care Team Description 08/15/2021 Clinical Support Department of Dk Mijares M.D. [address] [place] [phone] Primary Rehabilitation Dian Clarke, P.T. [address] [place], [place] [address] [address] Osteoarthritis Knee Services in [address] [phone] Social History Tobacco Use Types Packs/Day Years [...] you attend adventism or Patient refused 2021 restorationist services? Do you belong to any clubs or No 12/20/2021 organizations such as adventism groups, unions, fraMor.sl or athletic groups, or school groups? 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 - 08/15/2021 12:45 PM CDT Physical Therapy Outpatient Treatment Note SUBJECTIVE Patient's Name: Hussein Whittaker Referring Provider: Dk Mijares M.D. Visit Diagnosis: 1. Primary Osteoarthritis Knee Left Payor: [employer]VELERS INSURANCE / Plan: TRAVELERS INSURANCE / Product Type: Indemnity / PT Next Certification Date: 08/08/2021 [facility] Visit Count: 3 Patient comments: Patient is [...] Left documented in this encounter Care Teams Plant Ecologist Relationship Specialty Start Date End Date Elsewhere, Pcp PCP - General 06/07/19 documented as of this encounter
--- OUTSIDE RECORDS SUMMARY | 2022-02-22 11:08 | XMS_ITS | Encounter Summary ---
:[address] [facility] Address [address] [place] [address] Care Team Providers Name Role Phone Elsewhere, Pcp Primary Care Provider Unavailable Reason for Referral Physical Therapy (Routine) - Authorized Specialty Diagnoses / Procedures Referred By Contact Refer red To Contact Diagnoses Primary Osteoarthritis Knee Left Dk Mijares M.D. [facility] Procedures PT Ongoing treatment [address] [place] [address] Referral ID Status Reason Start Date Expiration Date Visits V isits Requested Authorized [id number] Authorized 08/10/2021 05/18/2022 40 40 Reason for Visit Physical Therapy (Routine) - Pending Review Specialty Diagnoses / Procedures Referred By Contact Refer red To Contact Diagnoses Primary Osteoarthritis Knee Left Dk Mijares M.D. [facility] Procedures PT Evaluate and treat [address] [place] [address] Referral ID Status Reason Start Date Expiration Date Visits V isits Requested Authorized [id number] Pending 06/28/2021 06/28/2022 1 1 Review Encounter Details Date Type Department Care Team Description 08/10/2021 Comprehensive Visit Department of Naman Mijares M.D. [address] [place] [phone] Primary Rehabilitation Dian Morgan P.TFarshad [address] [address] Osteoarthritis Knee Services in [address] [phone] Social History Tobacco Use Types Packs/Day Years [...] you attend latter-day or Patient refused 2021 taoism services? 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 KNEE JOINT OPERATION [...] TOTAL ARTHROPLASTY; Surgeon: Dk Mijares M.D.; Location: [facility] OR Hussein Cartagena Panfilo is a [...] documented in this encounter Care Teams Medical Office Specialist Relationship Specialty Start Date End Date Elsewhere, Pcp PCP - General 06/07/19 documented as of this encounter
--- OUTSIDE RECORDS SUMMARY | 2022-02-22 11:08 | XMS_ITS | Encounter Summary ---
:[address] [facility] Address [address] [place] [address] Care Team Providers Name Role Phone Elsewhere, Pcp Primary Care Provider Unavailable Reason for Visit Physical Therapy (Routine) - Authorized Specialty Diagnoses / Procedures Referred By Contact Refer red To Contact Diagnoses Primary Osteoarthritis Knee Left Dk Mijares M.D. [facility] Procedures PT Ongoing treatment [address] [place] [address] Referral ID Status Reason Start Date Expiration Date Visits V isits Requested Authorized [id number] Authorized 08/10/2021 05/18/2022 40 40 Encounter Details Date Type Department Care Team Description 08/21/2021 Clinical Support Department of Dk Mijares M.D. [address] [place] [phone] Primary Rehabilitation Dian Clarke, P.T. [address] [place], [place] [address] [address] Osteoarthritis Knee Services in [address] [phone] Social History Tobacco Use Types Packs/Day Years [...] you attend zoroastrianism or Patient refused 2021 congregational services? Do you belong to any clubs or No 12/20/2021 organizations such as zoroastrianism groups, unions, fraAdzilla or athletic groups, or school groups? How [...] at Date Recorded Male 06/23/2021 7:46 PM BDR documented as of this encounter Progress Notes Dian Clarke P.T. - 08/21/2021 1:15 PM CDT Physical Therapy Outpatient Treatment Note SUBJECTIVE Patient's Name: Hussein Osiel Panfilo Referring Provider: Dk Mijares M.D. Visit Diagnosis: 1. Primary Osteoarthritis Knee Left Payor: / PT Next Certification Date: 08/08/2021 [facility] Visit Count: 4 Patient comments: Patient is [...] TREATMENT Treatment today consisted of: Perform the Bigpoint-Fit Total body ergometer x8 minutes at a [...] Left documented in this encounter Care Teams Store Receiving Specialist Relationship Specialty Start Date End Date Elsewhere, Pcp PCP - General 06/07/19 documented as of this encounter
--- OUTSIDE RECORDS SUMMARY | 2022-02-22 11:08 | XMS_ITS | Encounter Summary ---
:1960 Author Organization [facility] Address [address] [place] [address] Care Team Providers Name Role Phone Elsewhere, Pcp Primary Care Provider Unavailable Reason for Visit Outpatient (Routine) - Closed Specialty Diagnoses / Procedures Referred By Contact Refer red To Contact Anesthesiology Diagnoses Preoperative Exam Dk Mijares M.D. [facility] [address] [place] [phone] Referral ID Status Reason Start Date Expiration Date Visits Requ ested Visits Authorized [id number] Closed 09/18/2021 09/18/2022 1 1 Encounter Details Date Type Department Care Team Description 09/24/2021 Virtual Visit Preoperative Dk Mijares M.D. [address] [place] [phone] Preanesthetic Medical Exam (Primary Dx); [facility] [address] [place] [phone] Preoperative Exam [address] [address] Social History Tobacco Use Types [...] you attend anabaptist or Patient refused 2021 sikhism services? Do you belong to any clubs or No 12/20/2021 organizations such as anabaptist groups, unions, fraFunctional Neuromodulation or athletic groups, or school groups? 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 - 09/24/2021 3:00 PM CDT Surgery Nurse Kitchen Work Supervisor Skin Alert Assessment: Complete this section only [...] lying flat? No Do you have any sikhism or other objection to having a blood transfusion? No Teaching: Preoperative education was done with (x) patient (_) parent _. It was confirmed the patient/family member had received the following preoperative education sheets:Checklist For Surgical Patients ([id number]),???Surgical Site Infections: Reducing Your Risk ([id number]), Speak Up: Antibiotics ([id number]), Acute Pain and the Healing Process ([id number]) with the [facility] ([id number]), and ???Appointments Required Before Your Surgery?? (no MC). These were reviewed in detail. (x) Preoperative medication education provided through [facility] [place] Expert (x) Preoperative COVID-19 testing ordered and discussed with patient Total Joint Class scheduled: (x) N/A Date:_ Knee Manipulation-CPM set-up: (_) N/A (x) Yes and PT notified (_)Total Joint Surgery: Total Joint Class (good for one year). (_) Reviewed Hibiclens packet and reviewed Reducing Your Risk of Surgical Infection ([id number]). (_)Preop OT appt (total shoulders only). (_) Reviewed Hibiclens packet and reviewed Reducing Your Risk of Surgical Infection ([id number]) NA (x) CT preop for BARBER Robotic Assist? Y/N (_) Date (_) N/A (_) Additional Pamphlets also reviewed: (_)Parental Presence in the Operating Room (agH:Order Sets/Surgery/Home Instructions/TonsillectomyTeaching Checklist/PE Tubes Teaching Sheet 11/17/11) (_) Shoulder Replacement Surgery: Anatomic Prosthesis ([id number]) and reviewed teaching points for total shoulders instructions. (_) Shoulder Replacement Surgery: Reverse Prosthesis ([id number]) and reviewed teaching points for total shoulders [...] appointments: 1st po with surgeon or physician litigation legal assistant: (x) made (_)TBD (_)PO OT appt made (Hand surgery if requested) documented in this encounter Plan of Treatment Not on filedocumented as of this encounter Visit Diagnoses Diagnosis Preanesthetic Medical Exam - Primary Preoperative Exam documented in this encounter Care Teams Lead Cargoman Relationship Specialty Start Date End Date Elsewhere, Pcp PCP - General 06/07/19 documented as of this encounter
--- OUTSIDE RECORDS SUMMARY | 2022-02-22 11:08 | XMS_ITS | Encounter Summary ---
:1960 Author Organization [facility] Address [address] [place] [address] Care Team Providers Name Role Phone Elsewhere, Pcp Primary Care Provider Unavailable Reason for Visit Physical Therapy (Routine) - Authorized Specialty Diagnoses / Procedures Referred By Contact Refer red To Contact Diagnoses Primary Osteoarthritis Knee Left Dk Mijares M.D. [facility] Procedures PT Ongoing treatment [address] [place] [address] Referral ID Status Reason Start Date Expiration Date Visits V isits Requested Authorized [id number] Authorized 08/10/2021 05/18/2022 40 40 Encounter Details Date Type Department Care Team Description 09/24/2021 Clinical Support Department of Dk Mijares M.D. [address] [place] [phone] Primary Rehabilitation Maria Luisa Chaparro, P.T. Osteoarthritis Knee Services in [place] [address] [place] [id number] Social History Tobacco Use Types Packs/Day Years [...] you attend uatsdin or Patient refused 2021 adventism services? 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
--- OUTSIDE RECORDS SUMMARY | 2022-02-22 11:08 | XMS_ITS | Encounter Summary ---
:1960 Author Organization [facility] Address [address] [place] [address] Care Team Providers Name Role Phone Elsewhere, Pcp Primary Care Provider Unavailable Reason for Visit Reason Comments Med Refill Encounter Details Date Type Department Care Team Description 08/10/2021 Refill Department of Orthopedic Jelly Elizabeth M.D. Med Refill Surgery in [place], [place] [address] [place] [address] [address] [place] [address] [place] [address] [phone] Social History Tobacco Use Types Packs/Day Years [...] you attend baptism or Patient refused 2021 roman catholic services? 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 - 08/10/2021 3:24 PM CDT Refill oxycodone; last refill 08/07/21; left total knee 08/06/21/ Maryana Routing to Dr. Elizabeth in Dr. Mijares absence. documented in this encounter Plan of Treatment Not on filedocumented as of this encounter Visit Diagnoses Not on filedocumented in this encounter Care Teams Lithographed Plate Inspector Relationship Specialty Start Date End Date Elsewhere, Pcp PCP - General 06/07/19 documented as of this encounter
--- OUTSIDE RECORDS SUMMARY | 2022-02-22 11:08 | XMS_ITS | Encounter Summary ---
:1960 Author Organization [facility] Address [address] [place] [address] Care Team Providers Name Role Phone Elsewhere, Pcp Primary Care Provider Unavailable Reason for Visit Reason Comments [facility] Encounter Details Date Type Department Care Team Description 08/07/2021 Clinical Communication Department of Dk Mijares [facility] Orthopedic Surgery in .[place], [place] [address] [facility] [address] [place] [phone] Social History Tobacco Use Types Packs/Day [...] you attend congregation or Patient refused 2021 nondenominational services? 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 Scanned in to chart, and patient will pick it up in [employer] Telephone Encounter - Lucy Forde - 08/07/2021 11:55 AM CDT [facility] paper work submitted to Mijares team today, NO GODWIN. documented in this encounter Plan of Treatment Not on filedocumented as of this encounter Visit Diagnoses Not on filedocumented in this encounter Care Teams Treasury Associate Relationship Specialty Start Date End Date Elsewhere, Pcp PCP - General 06/07/19 documented as of this encounter
--- OUTSIDE RECORDS SUMMARY | 2022-02-22 11:09 | XMS_ITS | Encounter Summary ---
:1960 Author Organization [facility] Address [address] [place] [address] Care Team Providers Name Role Phone Elsewhere, Pcp Primary Care Provider Unavailable Reason for Referral Outpatient (Routine) - Closed Specialty Diagnoses / Procedures Referred By Contact Refer red To Contact Diagnoses Primary Osteoarthritis Knee Left Laurie Dumont APRN, [facility] [place] [facility] Procedures ECG 12 Lead C.N.P., D.N.P. [address] [place] [address] Referral ID Status Reason Start Date Expiration Date Visits Requ ested Visits Authorized [id number] Closed 06/28/2021 06/28/2022 1 1 CODING MACHINE OPERATOR Reason for Visit Outpatient (Routine) - Closed Specialty Diagnoses / Procedures Referred By Contact Refer red To Contact Diagnoses Primary Osteoarthritis Knee Left Laurie Dumont APRN, [facility] [place] [facility] Procedures ECG 12 Lead C.N.P., D.N.P. [address] [place] [address] Referral ID Status Reason Start Date Expiration Date Visits Requ ested Visits Authorized [id number] Closed 06/28/2021 06/28/2022 1 1 Encounter Details Date Type Department Care Team Description 07/02/2021 Hospital Encounter Department of Laurie Dumont Osteoarthritis Radiology in [place] APRN, Knee [place], [place] C.N.P., D.N.P. [address] [phone] Social History Tobacco Use [...] you attend rastafari or Patient refused 2021 anabaptist services? 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 documented in this encounter Results ECG 12 Lead (07/02/2021 8:36 AM GEAR CODING MACHINE OPERATOR) P athologist Signature Ventricular Rate 70 BPM MUSE ECG/Min MS Interval 180 ms MUSE QRSD Interval 98 ms MUSE QT Interval 380 ms MUSE QTC Interval 410 ms MUSE P [place] 32 degrees MUSE R [place] 14 degrees MUSE T Wave [place] 20 degrees MUSE Specimen Anatomical Collection Method Collection Time Receive d Time (Source) Location / / Volume Laterality 07/02/2021 8:36 AM 8:39 GEAR CODING MACHINE OPERATOR AM GEAR CODING MACHINE OPERATOR Impressions MUSE - 07/02/2021 8:39 AM GEAR CODING MACHINE OPERATOR Normal sinus rhythm Normal ECG No [...] documented in this encounter Care Teams Senior Cost Accountant Relationship Specialty Start Date End Date Elsewhere, Pcp PCP - General 06/07/19 documented as of this encounter
--- OUTSIDE RECORDS SUMMARY | 2022-02-22 11:09 | XMS_ITS | Encounter Summary ---
:1960 Author Organization [facility] Address [address] [place] [address] Care Team Providers Name Role Phone Elsewhere, Pcp Primary Care Provider Unavailable Reason for Visit Auth/Cert Specialty Diagnoses / Procedures Referred By Contact Refer red To Contact Diagnoses Encounter for screening for malignant neoplasm of colon colon cancer screening z12.11 Procedures NM COLONOSCOPY DIAGNOSTIC COLONOSCOPY Referral ID Status Reason Start Date Expiration Date Visits Requ ested Visits Authorized [id number] 1 1 Encounter Details Date Type Department Care Team Description 04/18/2021 Surgery [facility] OR Kavon Espino, COLONOSCOPY [address] [place] [address] Adrian JULIAN MCLEAN [phone] [address] [facility] [phone] [place], [place] [address] (Wo rk) Social History Tobacco Use Types [...] you attend jewish or Patient refused 2021 judaism services? Do [...] at Date Recorded Male 06/23/2021 7:46 PM RESIDENCE LIFE DIRECTOR documented as of this encounter Last Filed Vital Signs Vital Sign Reading Time Taken Comments Blood Pressure 109/74 04/18/2021 2:30 PM RESIDENCE LIFE DIRECTOR Pulse 67 04/18/2021 2:30 PM RESIDENCE LIFE DIRECTOR Temperature 36.3 ??C (97.3 ??F) 04/18/2021 2:30 PM RESIDENCE LIFE DIRECTOR Respiratory Rate 15 04/18/2021 2:30 PM RESIDENCE LIFE DIRECTOR Oxygen Saturation 97% 04/18/2021 2:30 PM RESIDENCE LIFE DIRECTOR Inhaled Oxygen Concentration - - Weight - [...] 3. The patient will undergo colonoscopy today. DENCE LIFE DIRECTOR documented in this encounter Procedure Notes Kavon Espino M.D. - 04/18/2021 1:36 PM CSTAssociated Order(s): COLONOSCOPY [facility] Patient Name: Hussein Whittaker Procedure Date: 04/18/2021 1:36 PM Date of : 1960 Age: 60 Gender: Male Procedure: Colonoscopy Providers: Gael Espino MD, Milton Vásquez (Ordering Provider) Referring Provider: iMlton Vásquez Pre-op Diagnoses: Screening for colorectal malignant [...] was done by the physician, nurse and identification technician using the patient's name, date and medical record number. Estimated blood loss was minimal. A 4 mm polyp was found in the transverse colon. The polyp was semi-pedunculated. The polyp was removed with a cold snare. Resection and retrieval were complete. Verification of patient identification for the specimen was done by the physician, nurse and identification technician using the patient's name, date and medical record number. Estimated blood loss was minimal. A 3 mm polyp was found in the descending colon. The polyp was semi-pedunculated. The polyp was removed with a cold snare. Resection and retrieval were complete. Verification of patient identification for the specimen was done by the physician, nurse and identification technician using the patient's name, date and [...] oxygen saturations were monitored continuously. The 01 [id number] was introduced under direct vision through the [...] 0 Note Initiated On: 04/18/2021 1:36 PM DENCE LIFE DIRECTOR documented in this encounter Plan of Treatment Not on filedocumented as of this encounter Procedures Procedure Name Priority Date/Time Associated Diagnosis Comme nts SURGICAL PATHOLOGY Routine 04/18/2021 1:56 PM Res ults for this RESIDENCE LIFE DIRECTOR procedure are i n the results section. COLONOSCOPY 04/18/2021 1:36 PM Results f or this RESIDENCE LIFE DIRECTOR procedure are i n the results section. COLONOSCOPY 04/18/2021 1:36 PM colon cancer RESIDENCE LIFE DIRECTOR screening z12.11 documented in this encounter Results Surgical Pathology (04/18/2021 1:56 PM RESIDENCE LIFE DIRECTOR) Component Value Ref Test Analysis Performed At [facility] gist Range Method Time Signature 04/20/2021 ECLR 1:27 PM RESIDENCE LIFE DIRECTOR Report Slade Mcgarry. 04/20/2021 ECLR electronically Adrian Mckinley 1:27 PM RESIDENCE LIFE DIRECTOR signed by Specimen Received A. Ascending colon 04/20/2021 EC LR B. Transverse colon polyp 1:27 PM RESIDENCE LIFE DIRECTOR C. Descending colon polyp Gross Description A: ??Received in a container labeled ascending co flip are 04/20/2021 ECLR multiple tissues, 0.4 cm to 0.8 cm. All submitted in 1:27 PM RESIDENCE LIFE DIRECTOR cassette A1. B: ??Received in a container labeled transverse colon are multiple tissues, 0.3 cm to 0.8 cm. All submitted in cassette B1 S. C: ??Received in a container labeled descending is a 0.5 cm in greatest dimension portion of tissue. All submitted in cassette C1. [id number] Interpretation FINAL DIAGNOSIS 04/20/2021 ECLR A. Colon, ascending, biopsy: ??Sessile serrated polyp. 1:27 PM RESIDENCE LIFE DIRECTOR B. ??Colon, transverse, biopsy: ??Normal colonic mucosa. C. ??Colon, descending, biopsy: Hyperplastic polyp. Specimen (Source) Anatomical Collection Method Collection Time Re ceived Time Location / / Volume Laterality Polyp (Colon) 04/18/2021 1:56 PM RESIDENCE LIFE DIRECTOR Polyp (Colon) 04/18/2021 1:59 PM RESIDENCE LIFE DIRECTOR Polyp (Colon) 04/18/2021 2:04 PM RESIDENCE LIFE DIRECTOR Narrative This result has an attachment that is no t available. Kavon Espino M.D. LAB SURG PATH ORDERABLES Performing Organization Address City/State/ZIP Code Phon e Number [facility]- [address] [place] [phone] [facility] [place] [address] System in [address] COLONOSCOPY (04/18/2021 1:36 PM RESIDENCE LIFE DIRECTOR) Specimen (Source) Anatomical Location Collection Method / Collectio n Time Received Time / Laterality Volume Narrative This result has an attachment that is no t available. Procedure Note Kavon Espino M.D. - 04/18/2021 1:36 PM CST [facility] Patient Name: Hussein Whittaker Procedure Date: [...] was done by the physician, nurse and identification technician using the patient's name, date and medical record number. Estimated blood loss was minimal. A 4 mm polyp was found in the transvers e colon. The polyp was semi-pedunculated. The polyp was remove d with a cold snare. Resection and retrieval were complete. Verificati on of patient identification for the specimen was done by the physician, nurse and identification technician using the patient's name, date and medical record number. Estimated blood loss was minimal. A 3 mm polyp was found in the descendin g colon. The polyp was semi-pedunculated. The polyp was remove d with a cold snare. Resection and retrieval were complete. Verificati on of patient identification for the specimen was done by the physician, nurse and identification technician using the patient's name, date and [...] saturations were monitored continuously . The 01 [id number] was introduced under direct vision through the [...] lactated ringers New Bag 04/18/2021 1:22 PM RESIDENCE LIFE DIRECTOR 75 mL/hr 75 mL/hr 75 mL/hr, intravenous, [...] Recently Administered Medications Times are shown in RESIDENCE LIFE DIRECTOR. Scheduled Medication Order 04/16/2021 04/17/2021 04/18/2021 lidocaine [...] injection documented in this encounter Care Teams Retina Subspecialist Relationship Specialty Start Date End Date Elsewhere, Pcp PCP - General 06/07/19 documented as of this encounter
--- OUTSIDE RECORDS SUMMARY | 2022-02-22 11:09 | XMS_ITS | Encounter Summary ---
:1960 Author Organization [facility] Address [address] [place] [address] Care Team Providers Name Role Phone Elsewhere, Pcp Primary Care Provider Unavailable Encounter Details Date Type Department Care Team Description 04/15/2021 Lab Department of [facility] Delvin Booker Sc reening [facility] [address] [facility] [address] [place] [phone] (Wo rk) Social History Tobacco Use Types [...] you attend gnosticist or Patient refused 2021 latter-day services? Do [...] at Date Recorded Male 06/23/2021 7:46 PM SAFETY GROOVING MACHINE OPERATOR documented as of this encounter Plan of Treatment Not on filedocumented as of this encounter Procedures Procedure Name Priority Date/Time Associated Diagnosis Comme nts SARS CORONAVIRUS-2 Routine 04/15/2021 10:24 AM Screening Cance r Results for this RNA, V SAFETY GROOVING MACHINE OPERATOR Colon procedure are i n the results section. documented in this encounter Results SARS Coronavirus-2 RNA, V Asymptomatic (04/15/2021 10:24 AM SAFETY GROOVING MACHINE OPERATOR) [facility] Method Time Signature SARS-CoV-2 Swab, 04/15/2021 ECLR Specimen Nasopharynx 8:55 PM SAFETY GROOVING MACHINE OPERATOR Source SARS CoV-2 Undetected Undetected 04/15/2021 ECLR RNA, TMA 8:55 PM SAFETY GROOVING MACHINE OPERATOR Comment: SARS-CoV-2 RNA absent. This result does not rule out COVID-19 in the patient, as the sensitivity of the test depends o n the timing of the specimen collection and the quality of the specim en. Result should be correlated with patient's history and clinical presentat ion. ----ADDITIONAL INFORMATION---- This molecular amplification test was pe rformed using the Aptima SARS-CoV-2 assay ([employer] on the [employer] tem under emergency use authorization (EUA) by the U.S. Food and Drug Administ ration. Fact sheets for this EUA assay can be fo und at the following links: For Healthcare Providers: https://www.fd a.gov/media/798042/download For Patients: https://www.fda.gov/media/ 656796/download Specimen Anatomical Collection Method Collection Time Receive d Time (Source) Location / / Volume Laterality Varies 04/15/2021 10:24 04/15/2021 3:00 (Nasopharynx) AM SAFETY GROOVING MACHINE OPERATOR PM SAFETY GROOVING MACHINE OPERATOR Delvin Booker M.D. LAB MICROBIOLOGY - GENERAL O RDERABLES Performing Organization Address City/State/ZIP Code Phon e Number [facility]- [address] [place], [place] [phone] [facility] [place] [address] System in [place] [address] [place] [address] documented in this encounter Visit Diagnoses Diagnosis Screening Cancer Colon documented in this encounter Additional Health Concerns Infection Onset Date Last Indicated Resolved Time COVID19 Pending 04/15/2021 04/15/2021 04/15/2021 8:55 PM SAFETY GROOVING MACHINE OPERATOR documented as of this encounter Care Teams Security Auditor Relationship Specialty Start Date End Date Elsewhere, Pcp PCP - General 06/07/19 documented as of this encounter
--- OUTSIDE RECORDS SUMMARY | 2022-02-22 11:09 | XMS_ITS | Encounter Summary ---
:1960 Author Organization [facility] Address [address] [place] [address] Care Team Providers Name Role Phone Elsewhere, Pcp Primary Care Provider Unavailable Reason for Visit Reason Comments Surgical Listing Orthopedics Encounter Details Date Type Department Care Team Description 06/28/2021 Clinical Communication Department of Dk Mijaresical Listing Orthopedic Surgery Adrian Bui (Orthopedics) in [address] [address] [place], [place] [phone] [address] (Work) [phone] Social History Tobacco Use Types Packs/Day Years [...] you attend mormonism or Patient refused 2021 uatsdin services? Do [...] at Date Recorded Male 06/23/2021 7:46 PM INTERNATIONAL EXCHANGE COORDINATOR documented as of this encounter Miscellaneous Notes Addendum Note - Natalie Moses R.N. - 07/31/2021 9:12 AM CDT Addended by: NATALIE MOSES on: 07/31/2021 09:12 AM Modules accepted: Orders Telephone Encounter - Natalie Moses R.N. - 07/31/2021 9:11 AM CDT Per Laurie Dumont, order for walker has been completed and faxed to [facility]. Telephone Encounter - Laurie Dumont APRN, C.N.P., D.N.P. - 07/30/2021 4:19 PM CDT Yes please. Thanks. Telephone Encounter - Dian Hayes L.P.N. - 07/30/2021 3:42 PM CDT Are you ok with me sending this now? Telephone Encounter - Shannan Moseley R.N. - 07/30/2021 3:36 PM CDT Patient is inquiring about getting a walker prescription sent to [facility]. Please advise. Thank you! Telephone Encounter - Lashell Singh L.P.N. - 06/28/2021 4:15 PM INTERNATIONAL EXCHANGE COORDINATOR Scheduled Left total knee arthroplasty- [place] on 08/06/[address] be performed by Dr. mijares. This is work comp RNATIONAL EXCHANGE COORDINATOR documented in this encounter Plan of Treatment Not on filedocumented as of this encounter Visit Diagnoses Diagnosis Primary Osteoarthritis Knee Left - Prima ry documented in this encounter Care Teams Faculty Criminal Justice Relationship Specialty Start Date End Date Elsewhere, Pcp PCP - General 06/07/19 documented as of this encounter
--- OUTSIDE RECORDS SUMMARY | 2022-02-22 11:09 | XMS_ITS | Encounter Summary ---
:1960 Author Organization [facility] Address [address] [place] [address] Care Team Providers Name Role Phone Elsewhere, Pcp Primary Care Provider Unavailable Reason for Visit Reason Comments Pre-op Exam 04/18 [place] [facility] (Routine) - Closed Specialty Diagnoses / Procedures Referred By Contact Refer red To Contact Family Medicine Diagnoses Screening Cancer Colon Delvin Booker M.D. [facility] Region [address] [place] [address] Referral ID Status Reason Start Date Expiration Date Visits Requ ested Visits Authorized [id number] Closed 03/30/2021 03/30/2022 1 1 Encounter Details Date Type Department Care Team Description 04/13/2021 Office Visit Department of Chica Diaz Hyper tension Essential Primary (Primary Dx); Medicine, Yuki Bui APRN, C.N.P., Preoper ative Exam; [facility], in D.N.P. Screening Cancer Colon; [place] [address] Diverticulo sis Of Large Intestine Without Perforation Or Abscess Without Bleeding; [facility] Morbid Severe Obesity Due To Excess Mary myra ([facility]) [address] [place], [place] [address] [address] Social History Tobacco Use Types Packs/Day [...] you attend bahai or Patient refused 2021 jainism services? Do you belong to any clubs or No 12/20/2021 organizations such as bahai groups, unions, fraSecond Wind or athletic groups, or school groups? How [...] at Date Recorded Male 06/23/2021 7:46 PM ORACLE DATABASE DEVELOPER documented as of this encounter Last Filed Vital Signs Vital Sign Reading Time Taken Comments Blood Pressure 120/78 04/13/2021 9:45 AM ORACLE DATABASE DEVELOPER Pulse 86 04/13/2021 9:45 AM ORACLE DATABASE DEVELOPER Temperature 36.2 ??C (97.2 ??F) 04/13/2021 9:45 AM ORACLE DATABASE DEVELOPER Respiratory Rate - - Oxygen Saturation 96% 04/13/2021 9:45 AM ORACLE DATABASE DEVELOPER Inhaled Oxygen Concentration - - Weight 120 kg (264 lb 1.8 oz) 04/13/2021 9:45 AM ORACLE DATABASE DEVELOPER Height 181 cm (5' 11.26) 04/13/2021 9:45 AM ORACLE DATABASE DEVELOPER Body Mass Index 36.57 04/13/2021 9:45 AM ORACLE DATABASE DEVELOPER documented in this encounter H&P Notes Chica Rodriguez APRN, C.N.P., D.N.P. - 04/13/2021 10:00 AM CST SUBJECTIVE Hussein Whittaker [phone] DATE OF SURGERY: 04/18/2021 DATE OF EXAM: [...] 20 minutes Chica Rodriguez APRN, C.N.P., D.N.P. LE DATABASE DEVELOPER documented in this encounter Plan of Treatment Not on filedocumented as of this encounter Procedures Procedure Name Priority Date/Time Associated Diagnosis Comme nts SODIUM, S/P Routine 04/13/2021 10:00 Hypertension Results for this AM ORACLE DATABASE DEVELOPER Essential Primar y procedure are in Preoperative Exam the result s section. POTASSIUM, S/P Routine 04/13/2021 10:00 Hypertension Results f or this AM ORACLE DATABASE DEVELOPER Essential Primar y procedure are in Preoperative Exam the result s section. CREATININE WITH Routine 04/13/2021 10:00 Hypertension Results for this EGFR, S/P AM ORACLE DATABASE DEVELOPER Essential Primar y procedure are in Preoperative Exam the result s section. documented in this encounter Results Sodium (04/13/2021 10:00 AM ORACLE DATABASE DEVELOPER) athologist Signature Sodium, P 138 135 - 145 04/13/2021 CNFL mmol/L 10:38 AM ORACLE DATABASE DEVELOPER Specimen Anatomical Collection Method Collection Time Receive d Time (Source) Location / / Volume Laterality Blood (Blood, 04/13/2021 10:00 04/13/2021 Venous) AM ORACLE DATABASE DEVELOPER 10:04 AM ORACLE DATABASE DEVELOPER Rosaura Escobar APRN.N.P., D.N.P. LAB BLOOD ADD-ON Performing Organization Address [facility] Phon e Number [address] [address] [place] [address] System [address] Potassium (04/13/2021 10:00 AM ORACLE DATABASE DEVELOPER) athologist Signature Potassium, P 4.4 3.6 - 5.2 04/13/2021 CNFL mmol/L 10:38 AM ORACLE DATABASE DEVELOPER Specimen Anatomical Collection Method Collection Time Receive d Time (Source) Location / / Volume Laterality Blood (Blood, 04/13/2021 10:00 04/13/2021 Venous) AM ORACLE DATABASE DEVELOPER 10:04 AM ORACLE DATABASE DEVELOPER Chica Rodriguez APRN, Rosaura.N.P., D.N.P. LAB BLOOD ADD-ON Performing Organization Address [facility] Phon e Number [address] [address] [place] [address] System [address] Creatinine with Estimated GFR (04/13/2021 10:00 AM ORACLE DATABASE DEVELOPER) P athologist Signature Creatinine 1.11 0.74 - 04/13/2021 CNFL 1.35 mg/dL 10:38 AM ORACLE DATABASE DEVELOPER eGFR-Black/Afric 82 >=60 04/13/2021 CNFL an Italian mL/min/BSA 10:38 AM ORACLE DATABASE DEVELOPER Comment: ----ADDITIONAL INFORMATION---- Estimated GFR calculated using the 2009 CKD_EPI creatinine equation. eGFR Non-Black/ 71 >=60 mL/min/BSA 04/13/2021 10:38 AM ORACLE DATABASE DEVELOPER CNFL Comment: ----ADDITIONAL INFORMATION---- Estimated GFR calculated using the 2009 CKD_EPI creatinine equation. Specimen Anatomical Collection Method Collection Time Receive d Time (Source) Location / / Volume Laterality Blood (Blood, 04/13/2021 10:00 04/13/2021 Venous) AM ORACLE DATABASE DEVELOPER 10:04 AM ORACLE DATABASE DEVELOPER Chica Rodriguez APRN, C.N.P., D.N.P. LAB BLOOD ADD-ON Performing Organization Address City/State/ZIP Code Phon e Number [facility]- [address] [place] [address] [place] [address] System [address] documented in this encounter Visit Diagnoses Diagnosis Hypertension Essential Primary - Primary Preoperative Exam Screening Cancer Colon Diverticulosis Of Large Intestine Withou t Perforation Or Abscess Without Bleeding Morbid Severe Obesity Due To Excess Mary myra (HCC) documented in this encounter Care Teams Finisher Map And Chart Relationship Specialty Start Date End Date Elsewhere, Pcp PCP - General 06/07/19 documented as of this encounter
--- OUTSIDE RECORDS SUMMARY | 2022-02-22 11:09 | XMS_ITS | Encounter Summary ---
:1960 Author Organization [facility] Address [address] [place] [address] Care Team Providers Name Role Phone Elsewhere, Pcp Primary Care Provider Unavailable Reason for Visit Reason Comments 2 Insurance Forms (Indemnity & The Standard Encounter Details Date Type Department Care Team Description 07/05/2021 Clinical Communication Department of Dk Mijares 2 Insurance Forms Orthopedic Surgery Adrian Bui (Indemnity & The in [facility] [address] [place], [place] [address] [address] [place], [place] [phone] [address] (Work) [phone] Social History Tobacco Use Types Packs/Day Years [...] you attend sabianism or Patient refused 2021 methodist services? Do [...] Date Recorded Male 06/23/2021 7:46 PM MEDICAL INSURANCE CLERK documented as of this encounter Miscellaneous Notes Telephone Encounter - Dian Correa - 07/09/2021 9:35 AM MEDICAL INSURANCE CLERK [place] received for [employer]. Faxed to [phone]. Copy to chart. CAL INSURANCE CLERK Telephone Encounter - Lucy Forde - 07/05/2021 9:46 AM CST 2 forms submitted for Maryana harris. TPA for [employer] co of [facility]. Fax- [phone] Work Related for Left knee. Sent Dr. Mijares last note of 06/28/21 and workability. [employer] co sent a form and requested office notes from Maryana 06/28/[address] report of left knee . Work Comp. [phone] CAL INSURANCE CLERK documented in this encounter Plan of Treatment Not on filedocumented as of this encounter Visit Diagnoses Not on filedocumented in this encounter Care Teams Commissary Agent Relationship Specialty Start Date End Date Elsewhere, Pcp PCP - General 06/07/19 documented as of this encounter
--- OUTSIDE RECORDS SUMMARY | 2022-02-22 11:09 | XMS_ITS | Encounter Summary ---
:1960 Author Organization [facility] Address [address] [place] [address] Care Team Providers Name Role Phone Elsewhere, Pcp Primary Care Provider Unavailable Reason for Visit Auth/Cert Specialty Diagnoses / Procedures Referred By Contact Refer red To Contact Diagnoses Encounter for screening for malignant neoplasm of colon colon cancer screening z12.11 Procedures [place] COLONOSCOPY DIAGNOSTIC COLONOSCOPY Referral ID Status Reason Start Date Expiration Date Visits Requ ested Visits Authorized [id number] 1 1 Encounter Details Date Type Department Care Team Description 04/18/2021 Hospital Encounter [facility] OR Kavon Espino [address] [place] [address] BLANE Mcghee M.D. [place] [address] [address] [place] [address] (Wo rk) Social History Tobacco [...] you attend jewish or Patient refused 2021 moravian services? 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 The patient will undergo colonoscopy today. [facility] documented in this encounter Procedure Notes Kavon Espino M.D. - 04/18/2021 1:36 PM CSTAssociated Order(s): COLONOSCOPY [facility] Patient Name: Hussein Whittaker Procedure Date: [...] was done by the physician, nurse and line service technician using the patient's name, date and medical record number. Estimated blood loss was minimal. A 4 mm polyp was found in the transverse colon. The polyp was semi-pedunculated. The polyp was removed with a cold snare. Resection and retrieval were complete. Verification of patient identification for the specimen was done by the physician, nurse and line service technician using the patient's name, date and medical record number. Estimated blood loss was minimal. A 3 mm polyp was found in the descending colon. The polyp was semi-pedunculated. The polyp was removed with a cold snare. Resection and retrieval were complete. Verification of patient identification for the specimen was done by the physician, nurse and line service technician using the patient's name, date and [...] oxygen saturations were monitored continuously. The 01 [id number] was introduced under direct vision through the [...] 0 Note Initiated On: 04/18/2021 1:36 PM [facility] documented in this encounter Plan of Treatment Not on filedocumented as of this encounter Procedures Procedure Name Priority Date/Time Associated Diagnosis Comme nts SURGICAL PATHOLOGY Routine 04/18/2021 1:56 PM Res ults for this [facility] procedure are i n the results section. COLONOSCOPY 04/18/2021 1:36 PM Results f or this [facility] procedure are i n the results section. COLONOSCOPY 04/18/2021 1:36 PM colon cancer [facility] screening z12.11 documented in this encounter Results Surgical Pathology (04/18/2021 1:56 PM [facility]) Component Value Ref Test Analysis Performed At [facility] gist Range Method Time Signature 04/20/2021 ECLR 1:27 PM [facility] [employer] Report Slade Mcgarry. 04/20/2021 ECLR electronically Adrian Mckinley 1:27 PM [facility] [employer] signed by Specimen Received A. Ascending colon 04/20/2021 EC LR B. Transverse colon polyp 1:27 PM [facility] C. Descending colon polyp Gross Description A: ??Received in a container labeled ascending co flip are 04/20/2021 ECLR multiple tissues, 0.4 cm to 0.8 cm. All submitted in 1:27 PM [facility] cassette A1. B: ??Received in a container labeled transverse colon are multiple tissues, 0.3 cm to 0.8 cm. All submitted in cassette B1 S. C: ??Received in a container labeled descending is a 0.5 cm in greatest dimension portion of tissue. All submitted in cassette C1. [id number] Interpretation FINAL DIAGNOSIS 04/20/2021 ECLR A. Colon, ascending, biopsy: ??Sessile serrated polyp. 1:27 PM [facility] B. ??Colon, transverse, biopsy: ??Normal colonic mucosa. C. ??Colon, descending, biopsy: Hyperplastic polyp. Specimen (Source) Anatomical Collection Method Collection Time Re ceived Time Location / / Volume Laterality Polyp (Colon) 04/18/2021 1:56 PM [facility] Polyp (Colon) 04/18/2021 1:59 PM [facility] Polyp (Colon) 04/18/2021 2:04 PM [facility] Narrative This result has an attachment that is no t available. Kavon Espino M.D. LAB SURG PATH ORDERABLES Performing Organization Address City/State/ZIP Code Phon e Number [facility]- [address] [place] [address] [phone] [facility] [place] [address] System [address] COLONOSCOPY (04/18/2021 1:36 PM [facility]) Specimen (Source) Anatomical Location Collection Method / Collectio n Time Received Time / Laterality Volume Narrative This result has an attachment that is no t available. Procedure Note Kavon Espino M.D. - 04/18/2021 1:36 PM CST [facility] Patient Name: Hussein Whittaker Procedure Date: [...] was done by the physician, nurse and line service technician using the patient's name, date and medical record number. Estimated blood loss was minimal. A 4 mm polyp was found in the transvers e colon. The polyp was semi-pedunculated. The polyp was remove d with a cold snare. Resection and retrieval were complete. Verificati on of patient identification for the specimen was done by the physician, nurse and line service technician using the patient's name, date and medical record number. Estimated blood loss was minimal. A 3 mm polyp was found in the descendin g colon. The polyp was semi-pedunculated. The polyp was remove d with a cold snare. Resection and retrieval were complete. Verificati on of patient identification for the specimen was done by the physician, nurse and line service technician using the patient's name, date and [...] saturations were monitored continuously . The 01 [id number] was introduced under direct vision through the [...] lactated ringers New Bag 04/18/2021 1:22 PM [facility] [employer] 75 mL/hr 75 mL/hr 75 mL/hr, intravenous, [...] Recently Administered Medications Times are shown in [facility]. Scheduled Medication Order 04/16/2021 04/17/2021 04/18/2021 lidocaine [...] injection documented in this encounter Care Teams Community Health Program Representative Relationship Specialty Start Date End Date Elsewhere, Pcp PCP - General 06/07/19 documented as of this encounter
--- OUTSIDE RECORDS SUMMARY | 2022-02-22 11:09 | XMS_ITS | Encounter Summary ---
:1960 Author Organization [facility] Address [address] [place] [address] Care Team Providers Name Role Phone Elsewhere, Pcp Primary Care Provider Unavailable Reason for Visit Reason Comments Paperwork [employer] Encounter Details Date Type Department Care Team Description 06/29/2021 Clinical Communication Department of Dk Mijares Orthopedic Surgery Adrian Bui ([employer]) in [address] [address] [place], [place] [phone] [address] (Work) [phone] Social History Tobacco Use Types Packs/Day Years [...] you attend voodoo or Patient refused 2021 latter-day services? 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 Requesting notes fromoffice visit on 06/28/21, workability and date/time next office visit. Dictation not completed yet. ION MAKER Telephone Encounter - Dian Correa - 06/29/2021 3:03 PM CUSHION MAKER Returned call to [employer], informed them that dictation has not been completed yet. Fax number given for paperwork to be sent to our office. ION MAKER Telephone Encounter - Natalie Moses RFarshadNFarshad - 06/29/2021 2:51 PM CUSHION MAKER Routing message to Lucy Forde and Dian Ceron for review and update. ION MAKER Telephone Encounter - Keyana Santoyo - 06/29/2021 [...] that we please call them back at [phone],patient claim number [id number]. Thanks ION MAKER documented in this encounter Plan of Treatment Not on filedocumented as of this encounter Visit Diagnoses Not on filedocumented in this encounter Care Teams Soil Tester Relationship Specialty Start Date End Date Elsewhere, Pcp PCP - General 06/07/19 documented as of this encounter
--- OUTSIDE RECORDS SUMMARY | 2022-02-22 11:09 | XMS_ITS | Encounter Summary ---
:1960 Author Organization [facility] Address [address] [place] [address] Care Team Providers Name Role Phone Elsewhere, Pcp Primary Care Provider Unavailable Reason for Referral MRI/CAT/PET Scan (Routine) - Closed Specialty Diagnoses / Procedures Referred By Contact Refer red To Contact Radiology Diagnoses Primary Osteoarthritis Knee Left Dk Mijares M.D. [facility] [place] [facility] Procedures CT Knee Left without IV Contrast [address] [facility] [address] Referral ID Status Reason Start Date Expiration Date Visits Requ ested Visits Authorized [id number] Closed 07/02/2021 08/01/2021 1 1 ASSIGNER Reason for Visit MRI/CAT/PET Scan (Routine) - Closed Specialty Diagnoses / Procedures Referred By Contact Refer red To Contact Radiology Diagnoses Primary Osteoarthritis Knee Left [facility]k [facility] [place] [facility] CT Knee Left without IV Contrast [address] [place] [address] Referral ID Status Reason Start Date Expiration Date Visits Requ ested Visits Authorized [id number] Closed 07/02/2021 08/01/2021 1 1 Encounter Details Date Type Department Care Team Description 07/02/2021 Hospital Encounter Department of Dk Mijares Osteoarthritis Radiology in Yuki Bui M.D. Knee Left [place], [place] [address] [facility] [address] [place] [address] [place] [facility] [address] [place] [phone] [address] (Work) [phone] Social History Tobacco Use Types Packs/Day Years [...] you attend religious or Patient refused 2021 gnosticist services? Do you belong to any clubs or No 12/20/2021 organizations such as religious groups, unions, fraMed ePad or athletic groups, or school groups? 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 documented in this encounter Results CT Knee Left without IV Contrast (07/02/2021 8:44 AM LINE ASSIGNER) Anatomical Region Laterality Modality Lower Extremity, Knee, Musculoskeletal RST LOS, Left Computed Tomography Musculoskeletal ARZ LOS, Muskuloskeletal FLA LOS Specimen (Source) Anatomical Collection Method Collection Time Re ceived Time Location / / Volume Laterality 07/02/2021 8:56 AM LINE ASSIGNER Impressions 07/02/2021 9:00 AM LINE ASSIGNER Degenerative change. Narrative 07/02/2021 9:00 AM LINE ASSIGNER EXAM: ??CT KNEE LEFT WITHOUT IV CONTRAST [...] Left documented in this encounter Care Teams Chemical Engineering Teacher Relationship Specialty Start Date End Date Elsewhere, Pcp PCP - General 06/07/19 documented as of this encounter
--- OUTSIDE RECORDS SUMMARY | 2022-02-22 11:09 | XMS_ITS | Encounter Summary ---
:1960 Author Organization [facility] Address [address] [place] [address] Care Team Providers Name Role Phone Elsewhere, Pcp Primary Care Provider Unavailable Reason for Visit Auth/Cert Specialty Diagnoses / Procedures Referred By Contact Refer red To Contact Diagnoses Encounter for screening for malignant neoplasm of colon colon cancer screening z12.11 Procedures [place] COLONOSCOPY DIAGNOSTIC COLONOSCOPY Referral ID Status Reason Start Date Expiration Date Visits Requ ested Visits Authorized [id number] 1 1 Encounter Details Date Type Department Care Team Description 04/18/2021 Anesthesia Event [facility] Aleksey Huffman, PRODUCTION QUALITY ANALYST, CHIEF TECHNICIAN [address] [place] [address] [place] [address] Miriam Ge M.D. [address] [place] [address] JULIAN MCLEAN [address] Anesthesia Record Procedure Summary Procedure Name Responsible Anesthesiologist Anesthesia Start Ti me Anesthesia Stop Time COLONOSCOPY Aleksey Huffman, PRODUCTION QUALITY ANALYST, 04/18/21 1338 1 1409 CHIEF TECHNICIAN Events Date Time Event Comment 04/18/2021 1305 1338 An Start Machine/Equipmen t Checked Infection Precautions Foll owed Procedure/Site Verified NPO Sta tus Verified Supine Standard ASA Mon itors Applied 1342 Turnover to Proceduralist 1345 Proc Start 1407 Proc Fin 1409 Turnover to ANE Staff 1409 an stop data 1409 An End I completed my h andoff to the receiving staff during [facility] we 1. Identified the patient 2. [...] you attend restoration or Patient refused 2021 restorationist services? Do [...] at Date Recorded Male 06/23/2021 7:46 PM BACKUP ADMINISTRATOR documented as of this encounter OR Notes Anesthesia Postprocedure Evaluation - Aleksey Huffman APRN, CRNA - 04/18/2021 2:12 PM CST Patient: Hussein Whittaker Procedure Summary Date: 04/18/21 Room / Location: [facility] [place] Anesthesia Start: 1338 Anesthesia Stop: [...] Post Op nausea/vomiting: none Hydration status: euvolemic UP ADMINISTRATOR Anesthesia Preprocedure Evaluation - Aleksey Huffman APRN, CRNA - 04/18/2021 1:05 PM CST Preprocedure Anesthesia & H&P Assessment Procedure Summary Date/Time: 04/18/21 1100 Procedure: COLONOSCOPY (N/A ) Pre-op diagnosis: colon cancer screening z12.11 Location: [facility] - [place] Surgeons: Kavon Espino M.D. Pertinent [...] with patient /legal guardian or through an dewaterer operator. The use of blood products not discussed Approval to Proceed: approved for anesthesia UP ADMINISTRATOR documented in this encounter Plan of Treatment Not on filedocumented as of this encounter Visit Diagnoses Not on filedocumented in this encounter Administered Medications Inactive Administered Medications - up to 3 most recent administrations Medication Order MAR Action Action Date Dose Rate Site fentaNYL injection (SUBLIMAZE) Given 04/18/2021 1:38 PM BACKUP ADMINISTRATOR 100 mcg intravenous, As needed, Starting on Fri04/18/21 at 1338, Anesthesia Intra-op midazolam (PF) injection (VERSED) Given 04/18/2021 1:38 PM BACKUP ADMINISTRATOR 2 mg intravenous, As needed, Starting on Fri04/18/21 at 1338, Anesthesia Intra-op ondansetron (PF) injection (ZOFRAN) Given 04/18/2021 1:38 PM BACKUP ADMINISTRATOR 4 mg intravenous, As needed, Starting on Fri04/18/21 at 1338, Anesthesia Intra-op propofol 10 mg/mL infusion Rate/Dose 04/18/2021 1:51 75 mcg/kg/min 5 3.91 (DIPRIVAN) Change PM BACKUP ADMINISTRATOR mL/hr intravenous, Continuous Infusion: Per Instructions PRN, Starting on Fri04/18/21 at 1344, Anesthesia Intra-op New Bag 04/18/2021 1:44 PM BACKUP ADMINISTRATOR 125 mcg/kg/min 89.85 mL/hr propofoL injection (DIPRIVAN) Given 04/18/2021 1:44 PM BACKUP ADMINISTRATOR 30 mg intravenous, As needed, Starting on Fri04/18/21 at 1341, Anesthesia Intra-op Given 04/18/2021 1:41 PM BACKUP ADMINISTRATOR 50 mg documented in this encounter Care Teams Engineer Geophysical Laboratory Relationship Specialty Start Date End Date Elsewhere, Pcp PCP - General 06/07/19 documented as of this encounter
--- OUTSIDE RECORDS SUMMARY | 2022-02-22 11:09 | XMS_ITS | Encounter Summary ---
:1960 Author Organization [facility] Address [address] [place] [address] Care Team Providers Name Role Phone Elsewhere, Pcp Primary Care Provider Unavailable Encounter Details Date Type Department Care Team Description 05/30/2021 Hospital Encounter Department of Ashley Chapman strative Purpose Laboratory Medicine Adrian Mcgarry Exam in [address] [address] [place], [place] [phone] (Work) [phone] Social History Tobacco Use Types Packs/Day Years [...] you attend muslim or Patient refused 2021 scientology services? 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
--- OUTSIDE RECORDS SUMMARY | 2022-02-22 11:09 | XMS_ITS | Encounter Summary ---
:1960 Author Organization [facility] Address [address] [place] [address] Care Team Providers Name Role Phone Elsewhere, Pcp Primary Care Provider Unavailable Reason for Visit Reason Comments Endoscopy referral Encounter Details Date Type Department Care Team Description 04/03/2021 Clinical Communication Department of Maria Luisa Shin General Surgery in R, R.N. (referral) [address] [facility] [address] [place], [place] [phone] [address] (Work) [phone] Social History Tobacco Use Types Packs/Day Years [...] you attend holiness or Patient refused 2021 orthodoxy services? 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 - 04/03/2021 1:20 PM CST DUPLICATE ENTRY FOR REFERRAL NDER OPERATOR documented in this encounter Plan of Treatment Not on filedocumented as of this encounter Visit Diagnoses Not on filedocumented in this encounter Care Teams Casing Runner Relationship Specialty Start Date End Date Elsewhere, Pcp PCP - General 06/07/19 documented as of this encounter
--- OUTSIDE RECORDS SUMMARY | 2022-02-22 11:09 | XMS_ITS | Encounter Summary ---
:1960 Author Organization [facility] Address [address] [place] [address] Care Team Providers Name Role Phone Elsewhere, Pcp Primary Care Provider Unavailable Reason for Visit Auth/Cert Specialty Diagnoses / Procedures Referred By Contact Refer red To Contact Diagnoses Primary Osteoarthritis Knee Left Primary Osteoarthritis Knee Left [M17.12] Procedures [place] ARTHRO KNEE CONDYLE&PLAT (TKA) BARBER ROBOTIC-ASSISTED KNEE TOTAL ARTHROPLASTY - LEFT Referral ID Status Reason Start Date Expiration Date Visits Requ ested Visits Authorized [id number] 1 1 Encounter Details Date Type Department Care Team Description 08/06/[address] [facility] MAIN OR Dk Mijares MAKO ROBOTIC-ASSISTED [address] M.D. KNEE TOTAL [place] [address] [address] [phone] [place] [id number] (Wo rk) Social History Tobacco Use Types [...] you attend baptist or Patient refused 2021 latter-day services? 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 Primary Care [...] APRN, C.N.P., D.N.P.Laurie Dumont APRN, C.N.P., D.N.P. 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 [facility]'s 3-year data, as reported at [facility] 2017, indicates a cut off of 39.4 or greater in daily activity is a fair to good accurate prediction of discharge home. Source: AM-PAC ???6 -Clicks?? functional assessment scores predict acute care hospital discharge destination. Host/Hostess Head. 2014 Jan; 94 (9): 1252-61. AM-PAC Activity: [...] while seated, threadingsurgical lower extremity 1st, using rotary drier operator if needed; patient receptive Toileting Toileting [...] a 60 y.o. year old admit to [facility] [place] Med/Surg following a left TKA on 08/06/2021. [...] recliner or while in bed ??? Obtain/utilize rotary drier operator, sock aid, shower chair, and other AE/DME as needed to complete daily tasks Bathroom Safety Equipment ([id number]); Home Safety Tips ([id number]); Safe Car Transfer Handout; Adaptive Equipment Information [...] treat. 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 SURGEON: Dk Mijares M.D. FUNERAL DIRECTOR/EMBALMER: Dr. Luis Fu A first calender worker actively participated and was necessary for one [...] using #1 Vicryl in a n interrupted iauiga-qz-sgrho fashion followed by copious irrigation of subcutaneous [...] Organization Address City/State/ZIP Code Phon e Number [facility]- [address] [place], [place] [address] [place], [place] [address] [place] [address] System in [place] [address] [place] [address] documented in this encounter Visit Diagnoses Diagnosis [...] mg (TYLENOL) 1356 (Given - Provider: Kathy eBaver R.N.)2008 (Given - Provider: Clara Swann RFarshadN.) [...] 0848 (Given - Provider: Keaton Valdez APRN, CAD APPLICATION SUPPORT SPECIALIST) 1,000 mg (1 g), intravenous, at 300 [...] RFarshadNFarshad)0812 (Rate/Dose Verify - Provider: Keaton Valdez, INVESTIGATOR FRAUD, CAD APPLICATION SUPPORT SPECIALIST)0916 (New Bag - Provider: Maeve Pino R.N.)1030 [...] hours).
documented in this encounter Care Teams Armature Bander Relationship Specialty Start Date End Date Elsewhere, Pcp PCP - General 06/07/19 documented as of this encounter
--- OUTSIDE RECORDS SUMMARY | 2022-02-22 11:09 | XMS_ITS | Encounter Summary ---
:1960 Author Organization [facility] Address [address] [place] [address] Care Team Providers Name Role Phone Elsewhere, Pcp Primary Care Provider Unavailable Reason for Referral Outpatient (Routine) - Closed Specialty Diagnoses / Procedures Referred By Contact Refer red To Contact Family Medicine Diagnoses Screening Cancer Colon Delvin Booker M.D. [facility] Region [address] [place] [address] Referral ID Status Reason Start Date Expiration Date Visits Requ ested Visits Authorized [id number] Closed 03/30/2021 03/30/2022 1 1 ESSOR CRIMINAL JUSTICE Reason for Visit Reason Comments colonoscopy scheduled Encounter Details Date Type Department Care Team Description 03/30/2021 Clinical Department of Dian Welch colonoscop y Communication General Surgery in L, R.N. scheduled [place], [address] [place] [phone] Social History Tobacco Use Types Packs/Day Years [...] you attend zoroastrian or Patient refused 2021 rastafarian services? Do [...] Date Recorded Male 06/23/2021 7:46 PM PROFESSOR CRIMINAL JUSTICE documented as of this encounter Miscellaneous Notes [...] physical can be completed prior. Thank you. ESSOR CRIMINAL JUSTICE Telephone Encounter - Dian Welch R.N. - 03/30/2021 2:54 PM PROFESSOR CRIMINAL JUSTICE Procedure: Upper Endoscopy with Brock: If yes, proton pump inhibitor needs to be held for 5 days prior to scope Colonoscopy Indication for procedure: screening Date: 04-18-21 Location: [facility] Surgeon: Dr. Booker PCP: ESTELLE, PCP (home) [phone] (mobile) Comments: COVID-19 swab Date/Status: ordered Inpatient [...] need anesthesia approval BMI >55 refer to [place] Height: Height: 181 cm (01/23/2021 3:11 PM) Actual Weight: Weight: 116 kg (01/23/2021 3:11 PM) Estimated Weight: No data recorded BMI: Estimated body mass index is 35.38 kg/m?? as calculated from the following: Height as of 01/23/21: 181 cm. Weight as of 01/23/21: 116 kg. Diabetic notype of diabetic medication: n/a Educated per [facility] Patient Education: Diabetes Medication Instructions: Tests, [...] If yes, only okay to schedule in [facility] Last date interrogated: N/A (if no, route [...] arrival time and that they need a local [place] truck driver: yes Patient verbalizes understanding of education provided and number to call if questions arise: [facility] Endoscopy Call Center [phone] yes Additional Comments: N/A If patient is concerned he is not empting pre-procedural, please call the listed number, based on location, the morning of. [phone] [place] [facility] [phone] [place] [facility] [phone] [place] [facility] [phone] [place] [facility] [phone] [place] [facility] ESSOR CRIMINAL JUSTICE documented in this encounter Plan of Treatment Scheduled Referrals Name Type Priority Associated Diagnoses Order S [facility] Primary Care - YARITZA Outpatient Referral Routine Screening Cance r Expected: consult (clinic) Colon 03/30/2021 (Approximate), Expires: 03/30/2024 documented as of this encounter Results SARS Coronavirus-2 RNA, V Asymptomatic (04/15/2021 10:24 AM PROFESSOR CRIMINAL JUSTICE) [facility] Method Time Signature SARS-CoV-2 Swab, 04/15/2021 ECLR Specimen Nasopharynx 8:55 PM PROFESSOR CRIMINAL JUSTICE Source SARS CoV-2 Undetected Undetected 04/15/2021 ECLR RNA, TMA 8:55 PM PROFESSOR CRIMINAL JUSTICE Comment: SARS-CoV-2 RNA absent. This result does not rule out COVID-19 in the patient, as the sensitivity of the test depends o n the timing of the specimen collection and the quality of the specim en. Result should be correlated with patient's history and clinical presentat ion. ----ADDITIONAL INFORMATION---- This molecular amplification test was pe rformed using the Aptima SARS-CoV-2 assay ([employer] on the [place] [employer] tem under emergency use authorization (EUA) by the U.S. Food and Drug Administ ration. Fact sheets for this EUA assay can be fo und at the following links: For Healthcare Providers: https://www.fd a.gov/media/720731/download For Patients: https://www.fda.gov/media/ 125987/download Specimen Anatomical Collection Method Collection Time Receive d Time (Source) Location / / Volume Laterality Varies 04/15/2021 10:24 04/15/2021 3:00 (Nasopharynx) AM PROFESSOR CRIMINAL JUSTICE PM PROFESSOR CRIMINAL JUSTICE Delvin Booker M.D. LAB MICROBIOLOGY - GENERAL O RDERABLES Performing Organization Address City/State/ZIP Code Phon e Number [facility] [place], [place] [address] [facility] [place] [address] System [address] documented in this encounter Visit Diagnoses Diagnosis Screening Cancer Colon - Primary documented in this encounter Care Teams Target Man Relationship Specialty Start Date End Date Elsewhere, Pcp PCP - General 06/07/19 documented as of this encounter
--- OUTSIDE RECORDS SUMMARY | 2022-02-22 11:09 | XMS_ITS | Encounter Summary ---
:1960 Author Organization [facility] Address [address] [place] [address] Care Team Providers Name Role Phone Elsewhere, [...] you attend jainism or Patient refused 2021 baptism services? Do [...] at Date Recorded Male 06/23/2021 7:46 PM TUB OPERATOR documented as of this encounter Plan of Treatment Not on filedocumented as of this encounter Procedures Procedure Name Priority Date/Time Associated Comments Diagnosis GASTROENTEROLOGY IMAGE Routine 04/18/2021 1:40 Re sults for this EXAM PM TUB OPERATOR procedure are i n the results section. documented in this encounter Results Colonoscopy-Gastroenterology Image Exam (04/18/2021 1:40 PM TUB OPERATOR) Specimen (Source) Anatomical Collection Method Collection Time Re ceived Time Location / / Volume Laterality 04/18/2021 1:36 PM TUB OPERATOR Narrative [facility] - 04/18/2021 2:21 PM TUB OPERATOR This order has been created and auto-finalized [...] on filedocumented in this encounter Care Teams Process Developer Relationship Specialty Start Date End Date Elsewhere, Pcp PCP - General 06/07/19 documented as of this encounter
--- OUTSIDE RECORDS SUMMARY | 2022-02-22 11:09 | XMS_ITS | Encounter Summary ---
:1960 Author Organization [facility] Address [address] [place] [address] Care Team Providers Name Role Phone Elsewhere, Pcp Primary Care Provider Unavailable Reason for Visit Outpatient (Routine) - Pending Review Specialty Diagnoses / Procedures Referred By Contact Refer red To Contact Anesthesiology Diagnoses Primary Osteoarthritis Knee Left Dk Mijares, [facility] Adrian [address] [place] [address] Referral ID Status Reason Start Date Expiration Date Visits V isits Requested Authorized [id number] Pending 06/28/2021 06/28/2022 1 1 Review Encounter Details Date Type Department Care Team Description 07/30/2021 Virtual Visit Preoperative Dk Mijares M.D. [address] [place] [address] Preanesthetic Medical Exam (Primary Dx); Evaluation Center in LoreleiShannan gardner R.N. [address] [place] [address] Primary Osteoarthritis Knee Left [place], [place] [address] [place] [phone] Social History Tobacco Use Types Packs/Day [...] 12/20/2021 organizations such as mormon groups, unions, [employer] or athletic groups, or school groups? 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 - 07/30/2021 3:00 PM CDT Surgery Nurse Manual Lathe Machinist Skin Alert Assessment: Complete this section only [...] lying flat? No Do you have any restorationism or other objection to having a blood transfusion? No Teaching: Preoperative education was done with (x) patient (_) parent _. It was confirmed the patient/family member had received the following preoperative education sheets:Checklist For Surgical Patients ([id number]),???Surgical Site Infections: Reducing Your Risk ([id number]), Speak Up: Antibiotics ([id number]), Acute Pain and the Healing Process ([id number]) with the Integrative Medicine and Health ([id number]), and ???Appointments Required Before Your Surgery?? (no MC). These were reviewed in detail. (x) Preoperative medication education provided through Ask [employer] Expert (x) Preoperative COVID-19 testing ordered and discussed with patient Total Joint Class scheduled: (_) N/A Date: 07/24 Knee Manipulation-CPM set-up: (x) N/A (_) Yes and PT notified (x)Total Joint Surgery: Total Joint Class (good for one year). (x) Reviewed Hibiclens packet and reviewed Reducing Your Risk of Surgical Infection ([id number]). (_)Preop OT appt (total shoulders only). (_) Reviewed Hibiclens packet and reviewed Reducing Your Risk of Surgical Infection ([id number]) NA (x) CT preop for BARBER Robotic Assist? Y/N (Y) Date (07/02/21) N/A (_) Additional Pamphlets also reviewed: (_)Parental Presence in the Operating Room (agH:Order Sets/Surgery/Home Instructions/TonsillectomyTeaching Checklist/PE Tubes Teaching Sheet 11/17/11) (_) Shoulder Replacement Surgery: Anatomic Prosthesis ([id number]) and reviewed teaching points for total shoulders instructions. (_) Shoulder Replacement Surgery: Reverse Prosthesis ([id number]) and reviewed teaching points for total shoulders [...] appointments: 1st po with surgeon or physician talent assistant: (x) made (_)TBD (_)PO OT appt made (Hand surgery if requested) documented in this encounter Plan of Treatment Not on filedocumented as of this encounter Visit Diagnoses Diagnosis Preanesthetic Medical Exam - Primary Primary Osteoarthritis Knee Left documented in this encounter Care Teams Tester Printed Circuit Boards Relationship Specialty Start Date End Date Elsewhere, Pcp PCP - General 06/07/19 documented as of this encounter
--- OUTSIDE RECORDS SUMMARY | 2022-02-22 11:09 | XMS_ITS | Encounter Summary ---
:1960 Author Organization [facility] Address [address] [place] [address] Care Team Providers Name Role Phone Elsewhere, Pcp Primary Care Provider Unavailable Reason for Referral MRI/CAT/PET Scan (Routine) - Closed Specialty Diagnoses / Procedures Referred By Contact Refer red To Contact Radiology Diagnoses Primary Osteoarthritis Knee Left Dk Mijares M.D. [facility] [place] [facility] Procedures CT Knee Left without IV Contrast [address] [place] [address] Referral ID Status Reason Start Date Expiration Date Visits Requ ested Visits Authorized [id number] Closed 07/02/2021 08/01/2021 1 1 STAMPER Specialty Diagnoses / Procedures Referred By Contact Refer red To Contact Dk Mijares M .D. [facility] [place] [facility] [address] [place] [address] Referral ID Status Reason Start Date Expiration Date Visits Requ ested Visits Authorized Scheduling Instructions Left total knee arthroplasty hysical Therapy (Routine) - Pending Review Specialty Diagnoses / Procedures Referred By Contact Refer red To Contact Diagnoses Primary Osteoarthritis Knee Left Dk Mijares M.D. [facility] [place] [facility] Procedures PT Evaluate and treat [address] [place] [address] Referral ID Status Reason Start Date Expiration Date Visits V isits Requested Authorized [id number] Pending 06/28/2021 06/28/2022 1 1 Review STAMPER Outpatient (Routine) - Pending Review Specialty Diagnoses / Procedures Referred By Contact Refer red To Contact Family Medicine Diagnoses Primary Osteoarthritis Knee Left [facility] [address] [place] [phone] Referral ID Status Reason Start Date Expiration Date Visits V isits Requested Authorized [id number] Pending 06/28/2021 06/28/2022 1 1 Review STAMPER Outpatient (Routine) - Pending Review Specialty Diagnoses / Procedures Referred By Contact Refer red To Contact Anesthesiology Diagnoses Primary Osteoarthritis Knee Left Dk Mijares [facility] Adrian [address] [place] [address] Referral ID Status Reason Start Date Expiration Date Visits V isits Requested Authorized [id number] Pending 06/28/2021 06/28/2022 1 1 Review STAMPER Outpatient (Routine) - Pending Review Specialty Diagnoses / Procedures Referred By Contact Refer red To Contact Orthopedic Surgery Diagnoses Dk Mijares M.D. [facility] [address] [place] [phone] Referral ID Status Reason Start Date Expiration Date Visits V isits Requested Authorized [id number] Pending 06/28/2021 06/28/2022 1 1 Review STAMPER Encounter Details Date Type Department Care Team Description 06/28/2021 Comprehensive Visit Department of Dk Mijares Orthopedic Surgery Adrian Bui Osteoarthritis Knee in [place]donado Flores, [address] [place], [place] [address]jesus Left (Primary Dx) [place] JULIAN Lassiter [address] [address] JLUIAN LASSITER [phone] [address] (Work) [phone] Social History Tobacco Use Types Packs/Day Years [...] you attend zoroastrianism or Patient refused 2021 episcopalian services? Do [...] Date Recorded Male 06/23/2021 7:46 PM HAND STAMPER documented as of this encounter Consult Notes [...] to this procedure and desires to proceed. STAMPER documented in this encounter Plan of Treatment Scheduled Referrals Name Type Priority Associated Diagnoses Order S [facility] Orthopedic Surgery Outpatient Referral Routine Ex [...] RNA, V Asymptomatic (08/03/2021 10:33 AM CDT) [facility] Method Time Signature SARS-CoV-2 Swab, 08/03/2021 ECLR [...] pe rformed using the Aptima SARS-CoV-2 assay ([employer] on the [employer] tem under emergency use authorization (EUA) by the U.S. Food and Drug Administ ration. Fact sheets for this EUA assay can be fo und at the following links: For Healthcare Providers: https://www.Good Seed a.gov/media/812908/download For Patients: https://www.fda.gov/media/ 128924/download Specimen Anatomical Collection Method Collection Time Receive d Time (Source) Location / / Volume Laterality Varies 08/03/2021 10:33 08/03/2021 2:31 (Nasopharynx) AM CDT PM CDT Dk Mijares M.D. LAB MICROBIOLOGY - GENERAL O RDERABLES Performing Organization Address City/State/ZIP Code Phon e Number [facility]- [address] [place] [phone] [facility] [place] [place] [address] System [address] Knee Left without IV Contrast (07/02/2021 8:44 AM HAND STAMPER) Anatomical Region Laterality Modality Lower Extremity, Knee, Musculoskeletal RST LOS, Left Computed Tomography Musculoskeletal ARZ LOS, Muskuloskeletal FLA LOS Specimen (Source) Anatomical Collection Method Collection Time Re ceived Time Location / / Volume Laterality 07/02/2021 8:56 AM HAND STAMPER Impressions 07/02/2021 9:00 AM HAND STAMPER Degenerative change. Narrative 07/02/2021 9:00 AM HAND STAMPER EXAM: ??CT KNEE LEFT WITHOUT IV CONTRAST [...] Left documented in this encounter Care Teams Gluing Crew Leader Relationship Specialty Start Date End Date Elsewhere, Pcp PCP - General 06/07/19 documented as of this encounter
--- OUTSIDE RECORDS SUMMARY | 2022-02-22 11:09 | XMS_ITS | Encounter Summary ---
:1960 Author Organization [facility] Address [address] [place] [address] Care Team Providers Name Role Phone Elsewhere, Pcp Primary Care Provider Unavailable Reason for Visit Reason Comments Pre-op Exam Surgery on 08/06 Outpatient (Routine) - Pending Review Specialty Diagnoses / Procedures Referred By Contact Refer red To Contact Family Medicine Diagnoses Primary Osteoarthritis Knee Left Dk Mijares, [facility] [address] [address] Referral ID Status Reason Start Date Expiration Date Visits V isits Requested Authorized [id number] Pending 06/28/2021 06/28/2022 1 1 Review Encounter Details Date Type Department Care Team Description 07/17/2021 Office Visit Department of Chica Diaz Preop erative Exam (Primary Dx); Medicine, Yuki Bui, ANA, C.N.P., Primary Osteoarthritis Knee Left; [facility], in D.N.P. Hypertension Essential Primary; [place] [address] Morbid Sandra re Obesity Due To Excess Calories (HCC); [facility] Gastroesophageal Reflux Disease Without Esophagitis [address] [place] [address] Yuki Garcia [place] [phone] Social History Tobacco Use Types Packs/Day [...] you attend baptism or Patient refused 2021 yazidi services? Do you belong to any clubs or No 12/20/2021 organizations such as baptism groups, unions, fraQuipper or athletic groups, or school groups? How [...] at Date Recorded Male 06/23/2021 7:46 PM POTATO CHIP FRIER documented as of this encounter Last Filed Vital Signs Vital Sign Reading Time Taken Comments Blood Pressure 119/82 07/17/2021 3:49 PM POTATO CHIP FRIER Pulse 88 07/17/2021 3:49 PM POTATO CHIP FRIER Temperature 36.4 ??C (97.5 ??F) 07/17/2021 3:49 PM POTATO CHIP FRIER Respiratory Rate - - Oxygen Saturation 98% 07/17/2021 3:49 PM POTATO CHIP FRIER Inhaled Oxygen Concentration - - Weight 117 kg (257 lb 0.9 oz) 07/17/2021 3:49 PM POTATO CHIP FRIER Height 181.5 cm (5' 11.46) 07/17/2021 3:49 PM POTATO CHIP FRIER Body Mass Index 35.39 07/17/2021 3:49 PM POTATO CHIP FRIER documented in this encounter Progress Notes Chica [...] of the content. Total time: 20 minutes TO CHIP FRIER documented in this encounter Plan of Treatment Not on filedocumented as of this encounter Procedures Procedure Name Priority Date/Time Associated Diagnosis Comme nts CBC WITHOUT Routine 07/17/2021 4:40 PM Preoperative Exam Resu lts for this DIFFERENTIAL, B POTATO CHIP FRIER procedure ar e in the results section. BASIC METABOLIC Routine 07/17/2021 4:40 PM Preoperative Exam R esults for this PANEL, S/P POTATO CHIP FRIER procedure are i n the results section. documented in this encounter Results CBC without Differential (07/17/2021 4:40 PM POTATO CHIP FRIER) P athologist Signature Hemoglobin 14.3 13.2 - 07/17/2021 CNFL 16.6 g/dL 4:50 PM POTATO CHIP FRIER Hematocrit 42.4 38.3 - 07/17/2021 CNFL 48.6 % 4:50 PM POTATO CHIP FRIER Erythrocytes 4.46 4.35 - 07/17/2021 CNFL 5.65 4:50 PM POTATO CHIP FRIER x10(12)/L MCV 95.1 78.2 - 07/17/2021 CNFL 97.9 fL 4:50 PM POTATO CHIP FRIER RBC Distrib Width 12.5 11.8 - 07/17/2021 CNFL 14.5 % 4:50 PM POTATO CHIP FRIER Platelet Count 241 135 - 317 07/17/2021 CNFL x10(9)/L 4:50 PM POTATO CHIP FRIER Leukocytes 8.4 3.4 - 9.6 07/17/2021 CNFL x10(9)/L 4:50 PM POTATO CHIP FRIER Specimen Anatomical Collection Method Collection Time Receive d Time (Source) Location / / Volume Laterality Blood (Blood, 07/17/2021 4:40 PM 07/18/19 4:45 Venous) POTATO CHIP FRIER PM POTATO CHIP FRIER Chica Rodriguez APRN, C.N.P., D.N.P. LAB BLOOD ADD-ON Performing Organization Address City/State/[facility] Code Phon e Number [address] [address] [place] [address] System in [address] Basic Metabolic Panel (07/17/2021 4:40 PM POTATO CHIP FRIER) P athologist Signature Potassium, P 3.7 3.6 - 5.2 07/17/2021 CNFL mmol/L 5:06 PM POTATO CHIP FRIER Sodium, P 140 135 - 145 07/17/2021 CNFL mmol/L 5:06 PM POTATO CHIP FRIER Chloride, P 102 98 - 107 07/17/2021 CNFL mmol/L 5:06 PM POTATO CHIP FRIER Bicarbonate, P 28 22 - 29 07/17/2021 CNFL mmol/L 5:06 PM POTATO CHIP FRIER Anion Gap, P 10 7 - 15 07/17/2021 CNFL 5:06 PM POTATO CHIP FRIER BUN (Blood Urea 20 8 - 24 07/17/2021 CNFL Nitrogen), P mg/dL 5:06 PM POTATO CHIP FRIER Creatinine 1.05 0.74 - 07/17/2021 CNFL 1.35 mg/dL 5:06 PM POTATO CHIP FRIER eGFR-Black/Afric 88 >=60 07/17/2021 CNFL an Mexican mL/min/BSA 5:06 PM POTATO CHIP FRIER Comment: ----ADDITIONAL INFORMATION---- Estimated GFR calculated using the 2009 CKD_EPI creatinine equation. eGFR Non-Black/ 76 >=60 mL/min/BSA 5:06 PM POTATO CHIP FRIER CNFL Comment: ----ADDITIONAL INFORMATION---- Estimated GFR calculated using the 2009 CKD_EPI creatinine equation. Calcium, Total, P 10.2 8.8 - 10.2 mg/dL 07/17/2021 5:06 PM POTATO CHIP FRIER CNFL Glucose, P 120 70 - 140 mg/dL 07/17/2021 5:06 PM POTATO CHIP FRIER C NFL Specimen Anatomical Collection Method Collection Time Receive d Time (Source) Location / / Volume Laterality Blood (Blood, 07/17/2021 4:40 PM 07/18/19 4:45 Venous) POTATO CHIP FRIER PM POTATO CHIP FRIER Chica Rodriguez APRN C.N.P., D.N.P. LAB BLOOD ADD-ON Performing Organization Address City/State/ZIP Code Phon e Number [address] [place] [address] System in [address] documented in this encounter Visit Diagnoses Diagnosis Preoperative Exam - Primary Primary Osteoarthritis Knee Left Hypertension Essential Primary Morbid Severe Obesity Due To Excess Mary myra (HCC) Gastroesophageal Reflux Disease Without Esophagitis documented in this encounter Care Teams Putty Maker Relationship Specialty Start Date End Date Elsewhere, Pcp PCP - General 06/07/19 documented as of this encounter
--- OUTSIDE RECORDS SUMMARY | 2022-02-22 11:09 | XMS_ITS | Encounter Summary ---
:1960 Author Organization [facility] Address [address] [place] [address] Care Team Providers Name Role Phone Elsewhere, Pcp Primary Care Provider Unavailable Reason for Visit Auth/Cert Specialty Diagnoses / Procedures Referred By Contact Refer red To Contact Diagnoses Primary Osteoarthritis Knee Left Primary Osteoarthritis Knee Left [M17.12] Procedures MT ARTHRO KNEE CONDYLE&PLAT (TKA) BARBER ROBOTIC-ASSISTED KNEE TOTAL ARTHROPLASTY - LEFT Referral ID Status Reason Start Date Expiration Date Visits Requ ested Visits Authorized [id number] 1 1 Encounter Details Date Type Department Care Team Description 08/06/[address] [facility] MAIN OR Miriam Ge M.D. [address] [facility] 701 [facility] [place] [phone] [place] [phone] (Wo rk) Anesthesia Record Procedure Summary Procedure [...] h andoff to the receiving staff [facility] 1. Identified the patient [...] you attend zoroastrianism or Patient refused 2021 latter day services? [...] at Date Recorded Male 06/23/2021 7:46 PM BAR PILOT documented as of this encounter OR Notes Anesthesia Postprocedure Evaluation - Miriam Ge M.D. - 08/06/2021 2:06 PM CDT Patient: Hussein Whittaker Procedure Summary Date: 08/06/21 Room / Location: [address] [facility] - GI Anesthesia Start: 811 Anesthesia Stop: [...] diagnosis: Primary Osteoarthritis Knee Left [M17.12] Location: [place] [address] / [facility] - GI Surgeons: Dk Mijares M.D. Pertinent [...] with patient /legal guardian or through an apple solutions consultant. Risks/Benefits/Alternatives of Blood transfusion discussed with patient [...] procedure ar e in the results section. MT US GUIDE PLC NDL Routine 08/06/2021 8:09 AM Re sults for this CDT procedure are i n the results section. MT INJ ANES FEM Routine 08/06/2021 8:09 AM [...] Miriam Ge M.D. PROCEDURE/MINOR SURGICAL ORD ERABLES MT INJ ANES FEM NERVE, MT US GUIDE JAM NDL, ALINA ANE NERVE [...] Other complications: none ATTESTATION STATEMENT Keaton Valdez AWNING CRAFTSPERSON, RD SCIENTIST PROCEDURE/MINOR SURGICAL ORDERABLES documented in this encounter Visit Diagnoses Not on filedocumented in this encounter Administered Medications Inactive Administered Medications - up to 3 most recent administrations Medication Order MAR Action Action Date Dose Rate Site [id number] (PF) Given 08/06/2021 8:18 AM CDT 1.7 [...] tourniquet documented in this encounter Care Teams Machine Feeder Relationship Specialty Start Date End Date Elsewhere, Pcp PCP - General 06/07/19 documented as of this encounter
--- OUTSIDE RECORDS SUMMARY | 2022-02-22 11:09 | XMS_ITS | Encounter Summary ---
:1960 Author Organization [facility] Address [address] [place] [address] Care Team Providers Name Role Phone Elsewhere, Pcp Primary Care Provider Unavailable Encounter Details Date Type Department Care Team Description 08/03/2021 Hospital Encounter Department of Dk Mijares Osteoarthritis Laboratory Medicine Adrian Bui Knee Left in [place] [phone] [facility] [phone] [place], [place] (Work) [phone] Social History Tobacco Use [...] you attend taoism or Patient refused 2021 mosque services? 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 Food and Drug Administ ration. Fact sheets for this EUA assay can be fo und at the following links: For Healthcare Providers: https://www.fd a.gov/media/784606/download For Patients: https://www.fda.gov/media/ 701597/download Specimen Anatomical Collection Method Collection Time Receive d Time (Source) Location / / Volume Laterality Varies 08/03/2021 10:33 08/03/2021 2:31 (Nasopharynx) AM CDT PM CDT Dk Mijares M.D. LAB MICROBIOLOGY - GENERAL O KAYA Performing Organization Address City/State/ZIP Code Phon e Number [facility]- [address] [place] [address] [phone] [facility] [place] [address] System in [address] documented in this encounter Visit Diagnoses Diagnosis Primary Osteoarthritis Knee Left documented in this encounter Additional Health Concerns Infection Onset Date Last Indicated Resolved Time COVID19 Pending 08/03/2021 08/03/2021 08/03/2021 7:25 PM CDT documented as of this encounter Care Teams Forest Examiner Relationship Specialty Start Date End Date Elsewhere, Pcp PCP - General 06/07/19 documented as of this encounter
--- OUTSIDE RECORDS SUMMARY | 2022-02-22 11:09 | XMS_ITS | Encounter Summary ---
:1960 Author Organization [facility] Address [address] [place] [address] Care Team Providers Name Role Phone Elsewhere, Pcp Primary Care Provider Unavailable Encounter Details Date Type Department Care Team Description 07/24/2021 Education Department of Dk Mijares M.D. [address] [place] [address] Primary Osteoarthritis Orthopedic Surgery in Sunni Cason R.N. Knee Left [place], [place] [address] [place] [address] Social History Tobacco Use Types [...] you attend denominational or Patient refused 2021 worship services? 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 - 07/24/2021 10:00 AM CST Patient is scheduled for a Left Total Knee Arthroplasty on 08/06/[address] Mijares. Patient attended the Total Joint Class and all material gone over and questions addressed after viewing the [facility] Total Joint video. Therapy portion was [...] surgical packet: - Total Knee Replacement Surgery [id number] - Home Safety Tips [id number] - Bathroom Safety Equipment [id number] - Rehabilitation after Knee Replacement [id number] - Prior to Surgery Medication List [id number] - Important Information About Opioid Medication [id number] - Speak Up: Antibiotics [id number] - Acute Pain and the Healing Process [id number] - Total Joint Arthroplasty Discharge Planning [id number] - Intentional Rounding [id number] - Reducing Your Risk of Surgical Infection [id number] with Hibiclens Soap (2 Packets) - Surgical Site Infection: Reducing you Risk [id number] - Billing Question Card [id number] - [facility] Financial Clearance Business Card - Transportation Sheet Patient was given and discussed the following education & pamphlets. Patient voiced understanding and stated they will call with any other questions or concerns: - Authorization to Disclose Protected Health Information to Family and Friends [id number] - SEMN Checklist for Surgical Paitients [id number] - Discharge Planning [id number] RONMENTAL FIELD PROFESSIONAL documented in this encounter Plan of Treatment Not on filedocumented as of this encounter Visit Diagnoses Diagnosis Primary Osteoarthritis Knee Left documented in this encounter Care Teams Chemical Strength Tester Relationship Specialty Start Date End Date Elsewhere, Pcp PCP - General 06/07/19 documented as of this encounter
--- OUTSIDE RECORDS SUMMARY | 2022-02-22 11:09 | XMS_ITS | Encounter Summary ---
:1960 Author Organization [facility] Address [address] [place] [address] Care Team Providers Name Role Phone Elsewhere, Pcp Primary Care Provider Unavailable Encounter Details Date Type Department Care Team Description 07/06/2021 Orders Only Department of Orthopedic Laurie Dumont APRN, Surgery in [place], C.N.P., D.N .P. [address] [place] [phone] [place] [address] [phone] Social History Tobacco Use Types Packs/Day Years [...] you attend episcopalian or Patient refused 2021 catholic services? 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
--- OUTSIDE RECORDS SUMMARY | 2022-02-22 11:09 | XMS_ITS | Encounter Summary ---
:1960 Author Organization [facility] Address [address] [place] [address] Care Team Providers Name Role Phone Elsewhere, Pcp Primary Care Provider Unavailable Encounter Details Date Type Department Care Team Description 03/29/2021 Orders Only [facility] PCP [facility] Sa isadora Abraham M.D. [address] [place], [place] [phone] (Wo rk) Social History [...] you attend yarsani or Patient refused 2021 oriental orthodox services? 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
--- OUTSIDE RECORDS SUMMARY | 2022-02-22 11:10 | XMS_ITS | Encounter Summary ---
:1960 Author Organization [facility] Address [address] [place] [address] Care Team Providers Name Role Phone Elsewhere, Pcp Primary Care Provider Unavailable Reason for Referral Specialty Diagnoses / Procedures Referred By Contact Refer red To Contact Katey Laguna M.D. [facility] Region [address] [place] [phone] Referral ID Status Reason Start Date Expiration Date Visits Requ ested Visits Authorized S EQUIPMENT ENGINEER Encounter Details Date Type Department Care Team Description 07/26/2020 Orders Only [facility] Sa isadora Laguna M.D. [address] [place] [phone] (Wo rk) Social History Tobacco [...] you attend mormon or Patient refused 2021 nondenominational services? Do [...] at Date Recorded Male 06/23/2021 7:46 PM SHIPS EQUIPMENT ENGINEER documented as of this encounter Plan of Treatment Scheduled Referrals Name Type Priority Associated Order Schedule Diagnoses Covid immunization Outpatient Referral Routine Ex pected: office visit Initial 021 (Approximate), Expires: 07/26/2021 documented as of this encounter Visit Diagnoses Not on filedocumented in this encounter Care Teams All Source Intelligence Relationship Specialty Start Date End Date Elsewhere, Pcp PCP - General 06/07/19 documented as of this encounter
--- OUTSIDE RECORDS SUMMARY | 2022-02-22 11:10 | XMS_ITS | Encounter Summary ---
:1960 Author Organization [facility] Address [address] [place] [address] Care Team Providers Name Role Phone Soren Shea APRN, C.N.P. Primary Care Provider [phone] Encounter Details Date Type Department Care Team Description 03/18/2017 Orders Only Department of Family Soren Shea Scr eening Examination Diabetes Mellitus; Medicine, Yuki Bui APRN, C.N.P. General Medical Examination Adult Clinic, in [phone] [phone] [place], [place] (Work) [phone] [phone] Social History Tobacco Use Types Packs/Day Years [...] you attend orthodox or Patient refused 2021 judaism services? 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 PCP - General 10/31/16 09/14/17 documented as of this encounter
--- OUTSIDE RECORDS SUMMARY | 2022-02-22 11:10 | XMS_ITS | Encounter Summary ---
:1960 Author Organization [facility] Address [address] [place] [address] Care Team Providers Name Role Phone Unavailable Primary Care Provider Unavailable Encounter Details Date Type Department Care Team Description 04/29/2015 Hospital Encounter HX [facility] Pennie Downs M.D. [address] , [address] [place], [place] [address] (Wo rk) Social History [...] you attend yarsani or Patient refused 2021 mu-ism services? Do [...] at Date Recorded Male 06/23/2021 7:46 PM ANIMAL NURSE documented as of this encounter Last Filed Vital Signs Vital Sign Reading Time Taken Comments Blood Pressure - - Pulse - - Temperature - - Respiratory Rate - - Oxygen Saturation - - Inhaled Oxygen Concentration - - Weight - - Height 183 cm (6' 0.05) 04/29/2015 10:32 AM ANIMAL NURSE Body Mass Index - - documented in this encounter Medications at Time of Discharge Medication Sig Dispensed Refills Start Date End Date ASPIRIN ORAL Take 1 tablet by mouth daily. 0 01/1804/13/2021 documented as of this encounter Progress Notes Carlo Carey M.D. - 04/29/2015 10:31 AM CST [id number] CHIEF COMPLAINT/REASON FOR VISIT Seborrheic dermatitis of face. HISTORY OF PRESENT ILLNESS Mr. Leny Hernandez is a very pleasant 54-year-old gentleman with a past medical history of a basal cell carcinoma on the left of his nose who presents for an evaluation of a mildly itchy, red rash around the nasolabial folds, upper cutaneous lip and preauricular areas, and the buddhist areas, also on thomas areas, worse in [...] recommend use of 50 SPF sunscreen from [employer] 2 times daily to the skin when [...] CAREY MD On: 08/29/2015 03:09 PM Source: [facility] MHSDOLBEYNONRADSYS Document Id: [id number] documented in this encounter Nursing Notes Breann Rivera L.P.N. - 04/29/2015 11:03 AM CST Dermatology Intake Dermatology Intake Entered On: 04/29/2015 11:04 ANIMAL NURSE Performed On: 04/29/2015 11:03 ANIMAL NURSE by BREANN RIVERA Preferred Name : Hussein Accompanied By : Alone Chief Complaint : Follow up Rash Date of Last Dermatology Visit : 09/17/2011 CDT BREANN RIVERA - 04/29/2015 11:03 ANIMAL NURSE Dermatology Intake History Pain Symptoms : No Past Dermatology History : Basal cell carcinoma BREANN RIVERA - 04/29/2015 11:03 ANIMAL NURSE Dependent Habits Exposure to Tobacco Smoke : Care provider denies smoking in home, Other: former Smoking Status : Former smoker Tobacco 2A : Yes Tobacco Use/Currently Using : No Tobacco Use/Last 30 Days : No Tobacco Use/Last 12 months : No BREANN RIVERA - 04/29/2015 11:03 ANIMAL NURSE Caffeine Use Grid Caffeine Use : None BREANN RIVERA - 04/29/2015 11:03 ANIMAL NURSE Recreational Drug Use Grid Drug Use : None BREANN RIVERA - 04/29/2015 11:03 ANIMAL NURSE Source: [facility] POWERCHART Document Id: [id number] ANIMAL NURSE!22 AL NURSE documented in this encounter Miscellaneous Notes Telephone Encounter - Conversion, Historical Provider Ser - 04/19/2016 9:50 AM CST *Phone Message Document Contains Addenda Addendum by CATHRYN MAYO CMA on April 24, 2016 09:53:05 ANIMAL NURSE called pt. and he states he has 3 spots on face x few months that are not going away and with a h/oBCC he is concerned about these spots. Offered pt. to go to [place] to [facility] sooner but he declined. Scheduled pt. on 06/08/16 at 11:30am with Dr. Carey in [place]. Pt. would like to be seen sooner if there is a cancellation and he can be reached at [phone]. From: ANNETTE ESPINAL ([place] [facility] Band Sawmill Operator) To: [place] Dermat[facility] Nurse; Sent: 04/19/2016 09:50:36 ANIMAL NURSE Subject: *Phone Message Caller is: (x ) [...] had taken off. Please call him at [phone] or [phone]. Advice/Action: Source used: ( ) Verbalizes understanding [...] back cell phone number ( ) Source: [facility] POWERCHART Document Id: [id number] Miscellaneous - Carlo Carey M.D. - 04/29/2015 11:51 AM CST Ambulatory Patient Summary [address] [place], [place] [id number] Visit Information Name: HUSSEIN HERNANDEZ [facility] Number: [id number] Current Date: 04/29/2015 [...] ITCHY 1xDay as needed. New Routed to [address] [id number] ketoconazole topical (Xolegel 2% topical gel) 1 matteo, Topical, once a day to redness and scaling of facial seborrhoeic dermatitis. [facility] [place], [place] [id number] ketoconazole topical (Nizoral 2% topical shampoo) 1 matteo, Topical, once a day use as shampoo to scalpand face wash. leave on for 3-5 minutes then rinse. Routed to [address] [address] omeprazole (omeprazole 40 mg oral delayed release [...] Appointments Date Time Location Provider 05/04/2015 13:45 [facility] ENT Víctor CERNA, Sim Urbina Attention: [...] if you dont have one. Go to [email or web address] and click on Create Your Account. Then, follow the directions to complete the online form. Youll be asked for your [facility] number which you can find at the top of this document. Your Goals/Additional instructions: Source: [facility] POWERCHART Document Id: [id number] AL NURSE Miscellaneous - Carlo Carey M.D. - 04/29/2015 11:51 AM CST Ambulatory Discharge Medication List [address] [id number] Visit Information Name: HUSSEIN HERNANDEZ [facility] Number: [id number] Visit Date: 04/29/2015 [...] ITCHY 1xDay as needed. New Routed to [facility] [phone] ketoconazole topical (Xolegel 2% topical gel) 1 matteo, Topical, once a day to redness and scaling of facial seborrhoeic dermatitis. Routed to [facility] [address] [place], [place] [id number] ketoconazole topical (Nizoral 2% topical shampoo) 1 matteo, Topical, once a day use as shampoo to scalpand face wash. leave on for 3-5 minutes then rinse. Routed to [address] [address] omeprazole (omeprazole 40 mg oral delayed release [...] Signed By: Signed On: Additional Information: Source: [facility] POWERCHART Document Id: [id number] AL NURSE documented in this encounter Plan of Treatment Not on filedocumented as of this encounter Visit Diagnoses Not on filedocumented in this encounter
--- OUTSIDE RECORDS SUMMARY | 2022-02-22 11:10 | XMS_ITS | Encounter Summary ---
:1960 Author Organization [facility] Address [address] [place] [address] Care Team Providers Name Role Phone Elsewhere, Pcp Primary Care Provider Unavailable Reason for Referral Specialty Diagnoses / Procedures Referred By Contact Refer red To Contact [facility] Alfred [facility] [address] [place] [address] Referral ID Status Reason Start Date Expiration Date Visits Requ ested Visits Authorized Encounter Details Date Type Department Care Team Description 08/10/2020 Immunization Department of [facility] Katey Laguna Enco unter For COVID-19 Medicine, Alfred M.D. Vaccine Immunization Professional Building, [address] (Primary Dx) [place], [place] [address] [place] [phone] [place] [address] Social History Tobacco Use Types Packs/Day [...] you attend anglican or Patient refused 2021 christian services? 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
--- OUTSIDE RECORDS SUMMARY | 2022-02-22 11:10 | XMS_ITS | Encounter Summary ---
:1960 Author Organization [facility] Address [address] [place] [address] Care Team Providers Name Role Phone Beth Valderrama P.A.-C. Primary Care Provider Encounter Details Date Type Department Care Team Description 03/02/2018 Clinical Communication Department of [facility], K[facility], [id number] [place] [address] [phone] (Work) [phone] Social History Tobacco Use Types Packs/Day Years [...] you attend faith or Patient refused 2021 quaker services? 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 PCP - General Family Medicine 09/15/17 06/06/19 documented as of this encounter
--- OUTSIDE RECORDS SUMMARY | 2022-02-22 11:10 | XMS_ITS | Encounter Summary ---
:1960 Author Organization [facility] Address [address] [place] [address] Care Team Providers Name Role Phone Unavailable Primary Care Provider Unavailable Encounter Details Date Type Department Care Team Description 05/02/2016 [facility] Ang Hernandez, PARTNERSHIP MANAGER [address] [place], [place] [phone] (Wo rk) Social History [...] you attend mu-ism or Patient refused 2021 buddhism services? Do [...] at Date Recorded Male 06/23/2021 7:46 PM FINISHER COLD ROLLING documented as of this encounter Last Filed Vital Signs Vital Sign Reading Time Taken Comments Blood Pressure 126/80 05/02/2016 10:55 AM FINISHER COLD ROLLING Pulse 80 05/02/2016 10:55 AM FINISHER COLD ROLLING Temperature - - Respiratory Rate 16 05/02/2016 10:55 AM FINISHER COLD ROLLING Oxygen Saturation - - Inhaled Oxygen Concentration - - Weight 117 kg (258 lb 6.1 oz) 05/02/2016 10:55 AM FINISHER COLD ROLLING Height 183 cm (6' 0.05) 05/02/2016 10:55 AM FINISHER COLD ROLLING Body Mass Index 35 05/02/2016 10:55 AM FINISHER COLD ROLLING documented in this encounter Medications at Time of Discharge Medication Sig Dispensed Refills Start Date End Date ASPIRIN ORAL Take 1 tablet by mouth daily. 0 01/1804/13/2021 documented as of this encounter Consult Notes Nohemi Carlos APRN, C.N.P. - 05/02/2016 11:55 AM CST Complete Evaluation CHIEF COMPLAINT/REASON FOR VISIT left shoulder pain-moving a cart and started having shoulder pain DOI: 04/23/16 [employer] HISTORY OF PRESENT ILLNESS Employer: [employer] DOI: 04/23/2016 Position: Emanuel Savage is a [...] tingling, weakness. OCCUPATIONAL HISTORY Patient works for [employer] on a full-time status for 36 [...] Ordered: OV New Pt Level 4 - 24512 - 45 min Electronically Signed By: NOHEMI CARLOS APRN, CNP On: 05/02/2016 12:07 PM Source: [facility] POWERCHART Document Id: [id number] SHER COLD ROLLING documented in this encounter Miscellaneous Notes Miscellaneous - Nohemi Carlos APRN, C.N.P. - 05/02/2016 11:55 AM FINISHER COLD ROLLING Ambulatory Patient Summary [facility] [address] [place], [address] [place], [place] [phone] Visit Information Name: MARY HUSSEIN NOWAK [facility] Number: [id number] Current Date: 05/02/2016 11:55:44 Physicians Attending Provider: NOHEMI CARLOS APRN, CNP Primary Care Provider: WILBERTO OLGUIN HOOKER OPERATOR MARCY HERNANDEZMOND ELIU has been given the [...] Appointments Date Time Location Provider 06/08/2016 11:30 [facility] Gerardo Gordillo MD, Jamarcus Kaplan Attention: Contact [...] if you dont have one. Go to [email or web address] and click on Create Your Account. Then, follow the directions to complete the online form. Youll be asked for your [facility] number which you can find at the top of this document. Your Goals/Additional instructions: Source: [facility] POWERCHART Document Id: [id number] SHER COLD ROLLING Miscellaneous - Nohemi Carlos APRN, C.N.P. - 05/02/2016 11:55 AM FINISHER COLD ROLLING Ambulatory Discharge Medication List [facility] [address], [address] [place], [place] [id number] Visit Information Name: HUSSEIN HERNANDEZ [facility] Number: [id number] Current Date: 05/02/2016 11:55:42 Attending Provider: NOHEMI CARLOS APRN, CNP Primary Care Provider: WILBERTO OLGUIN HOOKER OPERATOR HUSSEIN HERNANDEZ has been given the following [...] CNP Signed On:02-MAY-2016 11:55:41 Additional Information: Source: [facility] POWERCHART Document Id: [id number] SHER COLD ROLLING Miscellaneous - Arden Olivo L.PFarshadN. - 05/02/2016 10:55 AM CST Adult Irrigation Equipment Mechanic Intake/History Adult Irrigation Equipment Mechanic Intake/History Entered On: 05/02/2016 11:05 FINISHER COLD ROLLING Performed On: 05/02/2016 10:55 FINISHER COLD ROLLING by ARDEN OLIVO LPN Intake Chief Complaint [...] Mass Index : 35 kg/m2 ARDEN OLIVO [facility] 05/02/2016 10:55 FINISHER COLD ROLLING General Info Information Given By : Patient Languages : Portuguese Is Patient Female and 13-50 no hysterectomy : No ARDEN OLIVO PATTERN WHEEL MAKER 05/02/2016 10:55 FINISHER COLD ROLLING Subjective Pain Symptoms : Yes ARDEN OLIVO [facility] 05/02/2016 10:55 FINISHER COLD ROLLING Pain Scale Pain Scale Verbal 0-10 : Open ARDEN OLIVO [facility] 05/02/2016 10:55 FINISHER COLD ROLLING Pain Pain Assessment Grid Pain 1 Location : Shoulder Laterality : Left Intensity : 2 ARDEN OLIVO [facility] 05/02/2016 10:55 FINISHER COLD ROLLING Dependent Habits Exposure to Tobacco Smoke : Care provider denies smoking in home, Other: former Smoking Status : Never smoker Tobacco 2A : No Tobacco Use/Currently Using : No Tobacco Use/Last 30 Days : No Tobacco Use/Last 12 months : No ARDEN OLIVO [facility] 05/02/2016 10:55 FINISHER COLD ROLLING Caffeine Use Grid Caffeine Use : None ARDEN OLIVO [facility] 05/02/2016 10:55 FINISHER COLD ROLLING Recreational Drug Use Grid Drug Use : None ARDEN OLIVO PATTERN WHEEL MAKER 05/02/2016 10:55 FINISHER COLD ROLLING Source: [facility] POWERCHART Document Id: [id number] FINISHER COLD ROLLING!44 SHER COLD ROLLING documented in this encounter Plan of Treatment Not on filedocumented as of this encounter Visit Diagnoses Not on filedocumented in this encounter
--- OUTSIDE RECORDS SUMMARY | 2022-02-22 11:10 | XMS_ITS | Encounter Summary ---
:1960 Author Organization [facility] Address [address] [place] [address] Care Team Providers Name Role Phone Beth Valderrama P.A.-C. Primary Care Provider [phone] Encounter Details Date Type Department Care Team Description 02/25/2018 Clinical Communication Department of [facility], K[facility], [id number] [place] [address] [phone] (Work) [phone] Social History Tobacco Use Types Packs/Day Years [...] you attend lutheran or Patient refused 2021 sabianist services? 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 PCP - General Family Medicine 09/15/17 06/06/19 documented as of this encounter
--- OUTSIDE RECORDS SUMMARY | 2022-02-22 11:10 | XMS_ITS | Encounter Summary ---
:1960 Author Organization [facility] Address [address] [place] [address] Care Team Providers Name Role Phone Unavailable Primary Care Provider Unavailable Encounter Details Date Type Department Care Team Description 05/04/[address] [facility] ENT Esa Francis M.D. [address] [place], [place] [phone] (Wo rk) Social History [...] you attend adventist or Patient refused 2021 taoism services? Do [...] at Date Recorded Male 06/23/2021 7:46 PM GAS JOCKEY documented as of this encounter Last Filed Vital Signs Vital Sign Reading Time Taken Comments Blood Pressure 124/80 05/04/2015 1:54 PM GAS JOCKEY Pulse 79 05/04/2015 1:54 PM GAS JOCKEY Temperature - - Respiratory Rate 16 05/04/2015 1:54 PM GAS JOCKEY Oxygen Saturation - - Inhaled Oxygen Concentration - - Weight - - Height 183 cm (6' 0.05) 05/04/2015 1:54 PM GAS JOCKEY Body Mass Index - - documented in this encounter Medications at Time of Discharge Medication Sig Dispensed Refills Start Date End Date ASPIRIN ORAL Take 1 tablet by mouth daily. 0 01/1804/13/2021 documented as of this encounter Consult Notes Esa Francis M.D. - 05/04/2015 1:44 PM CST [id number] Mr. Whittaker is a pleasant 54-year-old gentleman. [...] FRANCIS MD On: 05/11/2015 01:00 PM Source: [facility] MHSDOLBEYNONRADSYS Document Id: [id number] JOCKEY documented in this encounter Miscellaneous Notes Miscellaneous - Allegra Desai, CFarshadMMagno - 05/08/2015 8:57 AM CST *General Message From: ALLEGRA DESAI [facility] Sent: 05/08/2015 08:57:35 GAS JOCKEY Subject: *General Message patient called had nose cauterized and he blew his nose and it started bleeding he did get it to stop. Instructed patient to come back in if he has any further problems and to refrain from blowing hisnose if at all possible for the next week to let that heal Source: [facility] POWERCHART Document Id: [id number] Miscellaneous - Roxy Olguin R.N. - 05/04/2015 1:54 PM CST Adult Chef Concierge Intake/History Adult Chef Concierge Intake/History Entered On: 05/04/2015 13:58 GAS JOCKEY Performed On: 05/04/2015 13:54 GAS JOCKEY by ROXY OLGUIN lodge officer Chief Complaint : frequent bloody nose x [...] inch(es)) ROXY OLGUIN RN - 05/04/2015 13:54 GAS JOCKEY General Info Information Given By : Patient Preferred Communication Mode : Verbal Languages : Sierra Leonean Is Patient Female and 13-50 no hysterectomy : No ROXY OLGUIN RN - 05/04/2015 13:54 GAS JOCKEY Subjective Pain Symptoms : No ROXY OLGUIN RN - 05/04/2015 13:54 GAS JOCKEY Dependent Habits Exposure to Tobacco Smoke : Care provider denies smoking in home, Other: former Smoking Status : Former smoker Tobacco 2A : Yes Tobacco Use/Currently Using : No Tobacco Use/Last 30 Days : No Tobacco Use/Last 12 months : No ROXY OLGUIN RN - 05/04/2015 13:54 GAS JOCKEY Caffeine Use Grid Caffeine Use : None ROXY OLGUIN RN - 05/04/2015 13:54 GAS JOCKEY Recreational Drug Use Grid Drug Use : None ROXY OLGUIN RN - 05/04/2015 13:54 GAS JOCKEY Source: [facility] POWERCHART Document Id: [id number] GAS JOCKEY!34 JOCKEY Miscellaneous - Marychuy Nam - 04/18/2015 1:19 PM CST Reminder Msg From: MARYCHUY NAM ([place] Colonoscopy Pool) To: [place] Colonoscopy Pool; Sent: 04/18/2015 13:19:07 GAS JOCKEY Show up: 09/13/2019 13:19:00 CDT Subject: Reminder Msg Due Date/Time: 12/13/2019 13:19:00 CDT Please Remember to: Pt. has Colonoscopy DUE: 12/13/2019 Due 10 years from last procedure (12/12/2009). PATIENT: ( ) Call Patient ( ) Ask Patient to ( ) ( ) Call Relative ( ) Schedule Patient ( ) ( ) Call for Director Of Business Applications ( ) Follow up on Results ( ) Other: PROVIDER: ( ) Call Physician ( ) Call Pharmacist ( ) Call Lab ( ) Other: Special Instructions: Comments: Source: [facility] POWERCHART Document Id: [id number] Electronically signed by Conversion, [facility] Webbing Weaver [id number] at 10/14/2016 9:37 AM CDT documented in this encounter Plan of Treatment Not on filedocumented as of this encounter Visit Diagnoses Not on filedocumented in this encounter
--- OUTSIDE RECORDS SUMMARY | 2022-02-22 11:10 | XMS_ITS | Encounter Summary ---
:1960 Author Organization [facility] Address [address] [place] [address] Care Team Providers Name Role Phone Unavailable Primary Care Provider Unavailable Encounter Details Date Type Department Care Team Description 09/21/2016 Hospital Encounter HX [facility] DERM Jennifer Joel M.D. [address] [place] [address] (Wo rk) Social History Tobacco [...] you attend orthodox or Patient refused 2021 druze services? 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 - 09/21/2016 11:53 AM CDT [id number] Document Contains Addenda CHIEF COMPLAINT/REASON FOR VISIT [...] the patient by letter. Patient given pamphlet [id number]. INFORMED CONSENT: Discussed the risks, benefits, alternatives, [...] SMITH MD On: 09/30/2016 01:10 PM Source: [facility] MHSDOLBEYNONRADSYS Document Id: [id number] documented in this encounter Nursing Notes Neha [...] CORRALES LPN - 09/21/2016 12:00 CDT Source: [facility] GeeYee Document Id: [id number] CDT!24 documented in this encounter Miscellaneous Notes [...] Result Name Value 09/21/2016 15:00 Drm Exam Accn-[place] [id number] 09/21/2016 15:00 Drm Exam Addr-[place] See Comment 09/21/2016 15:00 Drm Exam Impr-[place] See Comment 09/21/2016 15:00 Drm Exam Mtrl-[place] See Comment 09/21/2016 15:00 Drm Exam Refer-[place] See Comment 09/21/2016 15:00 Drm Exam Sign-[place] See Comment 09/21/2016 15:00 Drm Exam Site-[place] See Comment [facility] Document Id: [id number] documented in this encounter Plan of Treatment [...] Time Signature HXLvl IV Surg Performed POWERCHART [facility] Comment: Test Performed by: [address] [address] Specimen Anatomical Collection Method Collection Time Receive d Time (Source) Location / / Volume Laterality Tissue 09/21/2016 3:00 PM 7 CDT 12:27 PM CDT Historical Provider [facility] Performing Organization Address City/State/ZIP Code Phon e Number POWERCHART PATHOLOGY DERMPATH CONSULT, WET TISSUE (09/21/2016 3:00 PM CDT) [facility] Time Signature HXDrm Exam [id number] POWERCHART [facility] HXDrm Exam See Comment POWERCHART [facility] Comment: RESULT: Jennifer Smith M.D. HXDrm Exam [facility] See Comment POWERCH ART Comment: [address] [address] HXDrm Exam [facility] See Comment POWERCH ART Comment: RESULT: A. DermPath Consultatio n, Wet Tissue; right lateral periorbital: HXDrm Exam [facility] See Comment POWERCH ART Comment: A. Received in formalin labeled with the patient's name and and lab eled as right lateral pariorbital is a 0.7 x 0.6 x 0.1 cm pal e dukes skin shave biopsy. There is a dark dukes slightly raised nodu le encompassing the entire skin surface. ??The specimen is bisected and submitted entirely in cassette A1. HXDrm Exam [facility] See Comment POWERCH ART Comment: A. ??DermPath Consultation, Wet Tissue; right lateral periorbital: Actinic keratosis with dermal hemorrhage and mixed dermal inflammation HXDrm Exam Sign-[place] See Comment POWERCH ART Comment: RESULT: 09/26/2016 12:22 ??Interpreted by : Neyda Priest M.D Report electronically signed by Neyda Preist M.D. Transcribed by: [email or web address] 09/26/2016 11:15:03 Test Performed by: [address] [address] Specimen (Source) Anatomical Collection Method Collection Time Re ceived Time Location / / Volume Laterality Tissue 09/21/2016 3:00 PM CDT Jennifer Smith M.D. LAB PATH DERM ORDERABLES Performing Organization Address City/State/ZIP Code Phon e Number POWERCHART documented in this encounter Visit Diagnoses Not on filedocumented in this encounter
--- OUTSIDE RECORDS SUMMARY | 2022-02-22 11:10 | XMS_ITS | Encounter Summary ---
:1960 Author Organization [facility] Address [address] [place] [address] Care Team Providers Name Role Phone Unavailable Primary Care Provider Unavailable Encounter Details Date Type Department Care Team Description 07/06/2015 Hospital Encounter HX [facility] Esa Francis M.D. [address] [place], [place] [phone] (Wo rk) Social History [...] you attend advent or Patient refused 2021 yarsani services? 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 0 01/1804/13/2021 documented as of this encounter Progress Notes Esa Franics M.D. - 07/06/2015 1:11 PM CST [id number] Mr. Hernandez is a very pleasant 54-year-old. [...] FRANCIS MD On: 08/03/2015 09:38 AM Source: [facility] MHSDOLBEYNONRADSYS Document Id: [id number] documented in this encounter Miscellaneous Notes Miscellaneous - Esa Francis M.D. - 07/06/2015 2:18 PM CST Ambulatory Patient Summary [address] [id number] Visit Information Name: PILO HERNANDEZ [facility] Number: [id number] Current Date: 07/06/2015 14:18:29 Physicians [...] Shortness of breath or trouble breathing ?? [phone] [facility], [address] [place] [address], [place] [address]. All rights reserved. This information is not [...] if you dont have one. Go to [email or web address] and click on Create Your Account. Then, follow the directions to complete the online form. Youll be asked for your [facility] number which you can find at the top of this document. Your Goals/Additional instructions: This document has images extracted. Please consider using [employer] for all your patient education needs. Source: [facility] POWERCHART Document Id: [id number] RAMMING SPECIALIST Miscellaneous - Esa Francis M.D. - 07/06/2015 2:18 PM CST Ambulatory Discharge Medication List [address] [id number] Visit Information Name: PILO HERNANDEZ [facility] Number: [id number] Visit Date: 07/06/2015 14:18:28 Attending [...] MD Signed On:06-JUL-2015 14:18:21 Additional Information: Source: [facility] POWERCHART Document Id: [id number] RAMMING SPECIALIST Miscellaneous - Roxy Olguin RFarshadN. - 07/06/2015 1:24 PM CST Adult Foreign Trade Teacher Intake/History Adult Foreign Trade Teacher Intake/History Entered On: 07/06/2015 13:28 PROGRAMMING SPECIALIST Performed On: 07/06/2015 13:24 PROGRAMMING SPECIALIST by ROXY OLGUIN towboat operator Chief Complaint : f/u nosebleeds, was [...] inch(es)) ROXY OLGUIN RN - 07/06/2015 13:24 PROGRAMMING SPECIALIST General Info Information Given By : Patient Preferred Communication Mode : Verbal Languages : [place] Is Patient Female and 13-50 no hysterectomy : No ROXY OLGUIN RN - 07/06/2015 13:24 PROGRAMMING SPECIALIST Subjective Pain Symptoms : No ROXY OLGUIN RN - 07/06/2015 13:24 PROGRAMMING SPECIALIST Dependent Habits Exposure to Tobacco Smoke : Care provider denies smoking in home, Other: former Smoking Status : Former smoker Tobacco 2A : Yes Tobacco Use/Currently Using : No Tobacco Use/Last 30 Days : No Tobacco Use/Last 12 months : No ROXY OLGUIN RN - 07/06/2015 13:24 PROGRAMMING SPECIALIST Caffeine Use Grid Caffeine Use : None ROXY OLGUIN RN - 07/06/2015 13:24 PROGRAMMING SPECIALIST Recreational Drug Use Grid Drug Use : None ROXY OLGUIN RN - 07/06/2015 13:24 PROGRAMMING SPECIALIST Source: [facility] Familink Document Id: [id number] PROGRAMMING SPECIALIST!34 RAMMING SPECIALIST documented in this encounter Plan of Treatment Not on filedocumented as of this encounter Visit Diagnoses Not on filedocumented in this encounter
--- OUTSIDE RECORDS SUMMARY | 2022-02-22 11:10 | XMS_ITS | Encounter Summary ---
:1960 Author Organization [facility] Address [address] [place] [address] Care Team Providers Name Role Phone Beth ValderramaCFarshad Primary Care Provider [phone] Reason for Visit Reason Comments Epistaxis (Nose Bleed) persistant nose bleeds, had cautizeried a 2015 Ear Fullness would like ears looked at, f eels like it is harder to hear Encounter Details Date Type Department Care Team Description 04/08/2019 Comprehensive Visit Department of David, Clara, Epistax is (Primary Dx); Otorhinolaryngology in [facility] Loss [facility] B[facility] [address] [place]eter [phone] Social History Tobacco Use Types Packs/Day Years [...] you attend restorationism or Patient refused 2021 confucianist services? 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 - 04/08/2019 8:30 AM CST ROLLING MACHINE TENDER documented in this encounter Progress Notes Clara [...] No history of clots, DVT, PE, or FL. Denies any left-sided symptoms. He is not [...] in future but declined at this time. ROLLING MACHINE TENDER documented in this encounter Plan of Treatment Not on filedocumented as of this encounter Visit Diagnoses Diagnosis Epistaxis - Primary Loss Hearing Bilateral documented in this encounter Care Teams Wooden Barrel Mechanic Relationship Specialty Start Date End Date Beth Valderrama P.A.-C. PCP - General Family Medicine 09/15/17 06/06/19 documented as of this encounter
--- OUTSIDE RECORDS SUMMARY | 2022-02-22 11:10 | XMS_ITS | Encounter Summary ---
:1960 Author Organization [facility] Address [address] [place] [address] Care Team Providers Name Role Phone Soren Shea APRN, C.N.P. Primary Care Provider [phone] Reason for Visit Reason Comments Skin Check face Encounter Details Date Type Department Care Team Description 04/26/2017 Office Visit Department of Sim Templeton Dermatitis S eborrheic (Primary Dx); Dermatology in Yuki Campbell Dermat oheliosis; [place], [place] Ker[facility] [address] [place] [address] JULIAN MCLEAN [phone] Social History Tobacco Use Types Packs/Day Years [...] you attend buddhism or Patient refused 2021 rastafarian services? 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 - 04/26/2017 12:00 AM CST [facility]. SUBJECTIVE CHIEF COMPLAINT/REASON FOR VISIT Chief [...] to be treated with laser therapy in [facility] and I would offer thisfor him. He [...] him, thus benign observation recommended. Job ID: [id number] ANICAL ENGINEERING DIRECTOR documented in this encounter Plan of Treatment Not on filedocumented as of this encounter Visit Diagnoses Diagnosis Dermatitis Seborrheic - Primary Dermatoheliosis Keratosis [facility] documented in this encounter Care Teams Shift Manager Relationship Specialty Start Date End Date Soren Shea APRN, C.N.P. PCP - General 10/31/16 09/14/17 documented as of this encounter
--- OUTSIDE RECORDS SUMMARY | 2022-02-22 11:10 | XMS_ITS | Encounter Summary ---
:1960 Author Organization [facility] Address [address] [place] [address] Care Team Providers Name Role Phone Elsewhere, Pcp Primary Care Provider Unavailable Reason for Visit Reason Comments CF/RW colonoscopy outside referral Encounter Details Date Type Department Care Team Description 03/16/2021 Clinical Communication [facility] MAIN OR Elsewhere, CF/RW colonoscopy [address] Pcp (outside referral) [place] [address] Social History Tobacco Use Types Packs/Day [...] you attend uatsdin or Patient refused 2021 baptism services? Do [...] at Date Recorded Male 06/23/2021 7:46 PM COMMUNITY RESOURCE CONSULTANT documented as of this encounter Miscellaneous Notes Telephone Encounter - Maddie Trivedi R.N. - 03/27/2021 10:16 AM CST Late entry: the [facility] endoscopy call center team LMTCB on 03/26/21 UNITY RESOURCE CONSULTANT Telephone Encounter - Maddie Trivedi R.N. - 03/16/2021 3:17 PM CDT [facility] Referring facility: Dr. Milton Vásquez Diagnosis:colon cancer [...] filedocumented in this encounter Care Teams Supervisor Kosher Dietary Service Relationship Specialty Start Date End Date Elsewhere, Pcp PCP - General 06/07/19 documented as of this encounter
--- OUTSIDE RECORDS SUMMARY | 2022-02-22 11:10 | XMS_ITS | Encounter Summary ---
:1960 Author Organization [facility] Address [address] [place] [address] Care Team Providers Name Role Phone Elsewhere, Pcp Primary Care Provider Unavailable Reason for Referral Outpatient (Routine) - Closed Specialty Diagnoses / Procedures Referred By Contact Refer red To Contact Preventive Medicine Diagnoses Injury Foot Initial Left Contusion Foot Initial Left Sandra Sanches M.D. [address] [address] Referral ID Status Reason Start Date Expiration Date Visits Requ ested Visits Authorized [id number] Closed 01/06/2020 01/05/2021 1 1 Reason for Visit Reason Comments Foot Injury Dias Equipment doi 12/01/19 Encounter Details Date Type Department Care Team Description 01/06/2020 Comprehensive Visit Department of Sandra Sanches Injury Foot Initial Left (Primary Dx); Occupational Medicine Adrian Bui Contusion Foot Initial Left in [place], [address] [place] [address] [place] [phone] Social History Tobacco Use Types [...] at Date Recorded Male 06/23/2021 7:46 PM LEAD GENERATION SPECIALIST documented as of this encounter Last [...] M.P.H. 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 He has worked there [...] reviewed the patient. Discussed conservative treatment. Medications: Jplk-nbk-codfxle medications as needed. Medication side effects reviewed, [...] Left documented in this encounter Care Teams Paperhanger Pipe Relationship Specialty Start Date End Date Elsewhere, Pcp PCP - General 06/07/19 documented as of this encounter
--- OUTSIDE RECORDS SUMMARY | 2022-02-22 11:10 | XMS_ITS | Encounter Summary ---
:1960 Author Organization [facility] Address [address] [place] [address] Care Team Providers Name Role Phone Beth Valderrama P.A.-C. Primary Care Provider Encounter Details Date Type Department Care Team Description 11/12/2017 Clinical Communication Department of Maximo Joseph [facility], Kaushik Acosta [facility], [id number] [place] [address] [phone] (Work) [phone] Social History Tobacco Use Types Packs/Day Years [...] you attend hindu or Patient refused 2021 yazidi services? 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 Telephone Encounter - Gladys Whitten - 11/12/2017 10:54 AM CDT [facility] pharmacy called questioning the Ketoconazole shampoo, please call when available documented in this encounter Plan of Treatment Not on filedocumented as of this encounter Visit Diagnoses Not on filedocumented in this encounter Care Teams Residential Program Director Relationship Specialty Start Date End Date Beth Valderrama P.A.-C. PCP - General Family Medicine 09/15/17 06/06/19 documented as of this encounter
--- OUTSIDE RECORDS SUMMARY | 2022-02-22 11:10 | XMS_ITS | Encounter Summary ---
:1960 Author Organization [facility] Address [address] [place] [address] Care Team Providers Name Role Phone Beth Valderrama P.A.-C. 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 [address] [place] [address] Transportation in [facility] Examination Department [address] [facility] Of Motor Vehicles [place], [place] (Primary Dx) [phone] Social History Tobacco [...] you attend latter-day or Patient refused 2021 jew services? Do [...] at Date Recorded Male 06/23/2021 7:46 PM PEST CONTROL PILOT documented as of this encounter Last Filed [...] M.D., M.P.H. - 01/27/2019 3:45 PM CDT Wallpaper Printer Helper Medical Examination Subjective: Hussein Whittaker is a 58 y.o. 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 The patient reports [...] is outlined in nursing note and reveals double bottom driver does not require visual correction to meet [facility] standards. Color vision is normal. Field [...] - 8.0 01/27/2019 3:03 PM CDT Specific [place] >=1.030 1.001 - 1.035 01/27/2019 3:03 PM CDT Urobilinogen 0.2 0.2 - 1.0 mg/dL 01/27/2019 3:03 PM CD T Specimen Anatomical Collection Method Collection Time Receive d Time (Source) Location / / Volume Laterality Urine 01/27/2019 3:03 PM 9 3:07 CDT PM CDT Generic Rals LAB URINE ORDERABLES Performing Organization Address City/State/ZIP Code Phon e Number [facility] [address] [place] [address] documented in this encounter Visit Diagnoses Diagnosis Department Of Transportation Examination Department Of Motor Vehicles - Primary documented in this encounter Care Teams Gauger Chief Relationship Specialty Start Date End Date ValderramaBeth man P.A.-C. PCP - General Family Medicine 09/15/17 06/06/19 documented as of this encounter
--- OUTSIDE RECORDS SUMMARY | 2022-02-22 11:10 | XMS_ITS | Encounter Summary ---
:1960 Author Organization [facility] Address [address] [place] [address] Care Team Providers Name Role Phone Elsewhere, Pcp Primary Care Provider Unavailable Reason for Visit Reason Comments schedule colonoscopy CF screening Encounter Details Date Type Department Care Team Description 03/27/2021 Clinical Department of Dian Welch schedule Communication General Surgery in L, R.N. colonoscopy CF [place], [address] [place] [address] (screening) [address] [phone] Social History Tobacco Use Types Packs/Day Years [...] you attend baptist or Patient refused 2021 muslim services? 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 - 03/30/2021 1:07 PM PRINTING MACHINIST 03-26 and 03-30 attempts to call patient done. Lmtcb TING MACHINIST Telephone Encounter - Dian Welch R.N. - 03/27/2021 4:01 PM PRINTING MACHINIST Patient has been waiting for a call, Do in CF if Wed has to be after April 18. Was a outside referral TING MACHINIST documented in this encounter Plan of Treatment Not on filedocumented as of this encounter Visit Diagnoses Not on filedocumented in this encounter Care Teams Cooker Syrup Relationship Specialty Start Date End Date Elsewhere, Pcp PCP - General 06/07/19 documented as of this encounter
--- OUTSIDE RECORDS SUMMARY | 2022-02-22 11:10 | XMS_ITS | Encounter Summary ---
:1960 Author Organization [facility] Address [address] [place] [address] Care Team Providers Name Role Phone Unavailable Primary Care Provider Unavailable Encounter Details Date Type Department Care Team Description 04/14/2015 Hospital Encounter HX [facility] Nhan Pacheco M.D. [phone] [place] [address] [place] Cast[place] [phone] (Wo rk) Social History [...] you attend orthodoxy or Patient refused 2021 voodoo services? 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 0 01/1804/13/2021 documented as of this encounter Plan of Treatment Not on filedocumented as of this encounter Visit Diagnoses Not on filedocumented in this encounter
--- OUTSIDE RECORDS SUMMARY | 2022-02-22 11:10 | XMS_ITS | Encounter Summary ---
:1960 Author Organization [facility] Address [address] [place] [address] Care Team Providers Name Role Phone Elsewhere, Pcp Primary Care Provider Unavailable Encounter Details Date Type Department Care Team Description 07/26/2019 Hospital Encounter Department of Jignesh Kelley Admini strative Purpose Laboratory Medicine M.D. Exam in [address] [address] [place], [place] [phone] (Work) [phone] Social History Tobacco Use Types Packs/Day Years [...] you attend jew or Patient refused 2021 mu-ism services? 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
--- OUTSIDE RECORDS SUMMARY | 2022-02-22 11:10 | XMS_ITS | Encounter Summary ---
:1960 Author Organization [facility] Address [address] [place] [address] Care Team Providers Name Role Phone Beth Valderrama P.A.-C. Primary Care Provider Encounter Details Date Type Department Care Team Description 04/26/2019 Clinical Department of David, Clara, Communication [facility] [address] [place], [place] [phone] Social History Tobacco Use Types Packs/Day Years [...] you attend sabianism or Patient refused 2021 sabianist services? 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 Left details in note line off appointment order L ENGINEER LAND DEVELOPMENT Telephone Encounter - Vero Tee - 04/26/2019 4:18 PM CST Reason for Communication: Follow up appointment Current Can Nursing/Provider leave a detailed message: Did the patient refuse triage through Nurse line? (for symptom based concerns): NA Action Needed: Patient called to cancel his appointment with Clara on 04/27. He said Clara told him he was in [place] on Tuesdays so that is why he scheduled for Friday. He will be unable to make it to that appointment. He was offered other times for [facility] but stated he could not make thosework. He leaves for [place] on 05/04, so the openings in [place] on 05/06 will not work for him. He returns 05/15 and there were no appointments in [place] after the until 05/[address] Renee in [place]. He would like Clara to know that this is why he cancelled his appointment and wants to know what she would recommend he does for follow up. I did not schedule the follow up appoint ment initially, so I am unsure of the details of that conversation and if it was made clear to him or not that the appointment would be for [employer]. Name of Medication (if relevant): L ENGINEER LAND DEVELOPMENT documented in this encounter Plan of Treatment Not on filedocumented as of this encounter Visit Diagnoses Not on filedocumented in this encounter Care Teams Senior Structural Engineer Relationship Specialty Start Date End Date Beth Valderrama P.A.-C. PCP - General Family Medicine 09/15/17 06/06/19 documented as of this encounter
--- OUTSIDE RECORDS SUMMARY | 2022-02-22 11:10 | XMS_ITS | Encounter Summary ---
:1960 Author Organization [facility] Address [address] [place] [address] Care Team Providers Name Role Phone Soren Shea APRN, C.N.P. 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 PCP - General 10/31/16 09/14/17 documented as of this encounter
--- OUTSIDE RECORDS SUMMARY | 2022-02-22 11:10 | XMS_ITS | Encounter Summary ---
:1960 Author Organization [facility] Address [address] [place] [address] Care Team Providers Name Role Phone Unavailable Primary Care Provider Unavailable Encounter Details Date Type Department Care Team Description 06/08/2016 Hospital Encounter HX [facility] Pennie Downs M.D. [address] , [address] [place], [place] [address] (Wo rk) Social History [...] you attend taoist or Patient refused 2021 bahai services? 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 - 06/08/2016 11:24 AM CST [id number] CHIEF COMPLAINT/REASON FOR VISIT Spot on right anterior mu-ism. HISTORY OF PRESENT ILLNESS Mr. Hussein Whittaker is a very pleasant 55-year-old gentleman who presents for an evaluation of a 6-month history of a small, red, circular papule that has become rust and red/brown color, scaly raised and conical over the last 6 months on the right anterior mu-ism that does not itch, does not bleed, [...] for a scaly spot on the left mu-ism and a scaly spot on the right [...] seborrheic dermatitis flare. On the right anterior mu-ism, right upper cheek and other location noted [...] the cream to dry skin. Sent to [facility] in [place] (pharmacy number provided). 3. Seborrheic dermatitis flare. [...] recommend use of 50 SPF sunscreen from [employer] 2 times daily to the skin when [...] applied, care instructions explained. Patient given pamphlet [id number]. 7. Waist up skin exam: A skin [...] CAREY MD On: 07/22/2016 01:23 PM Source: [facility] MHSDOLBEYNONRADSYS Document Id: [id number] NOMY TEACHER documented in this encounter Nursing Notes Breann Becerra, LFarshadPFarshadNFarshad - 06/08/2016 11:32 AM CST Dermatology Intake Dermatology Intake Entered On: 06/08/2016 11:33 AGRONOMY TEACHER Performed On: 06/08/2016 11:32 AGRONOMY TEACHER by BREANN BECERRA General Preferred Name : Hussein Accompanied By : Alone Chief Complaint : 3 spots on face Date of Last Dermatology Visit : 09/17/2011 CDT BREANN BECERRA - 06/08/2016 11:32 AGRONOMY TEACHER Dermatology Intake History Pain Symptoms : No Past Dermatology History : Basal cell carcinoma BREANN BECERRA - 06/08/2016 11:32 AGRONOMY TEACHER Dependent Habits Exposure to Tobacco Smoke : Care provider denies smoking in home, Other: former Smoking Status : Former smoker Tobacco 2A : Yes Tobacco Use/Currently Using : No Tobacco Use/Last 30 Days : No Tobacco Use/Last 12 months : No MIGUEL BREANN - 06/08/2016 11:32 AGRONOMY TEACHER Caffeine Use Grid Caffeine Use : None BREANN BECERRA - 06/08/2016 11:32 AGRONOMY TEACHER Recreational Drug Use Grid Drug Use : None BREANN BECERRA - 06/08/2016 11:32 AGRONOMY TEACHER Source: [facility] POWERCHART Document Id: [id number] AGRONOMY TEACHER!22 NOMY TEACHER documented in this encounter Miscellaneous Notes Nataleecellaneous - Carlo Carey M.D. - 06/17/2016 5:41 PM CST Results Notification Document Contains Addenda Addendum by BREANN BECERRA on June 17, 2016 18:25:39 AGRONOMY TEACHER noted From: CARLO CAREY MD To: [place] Dermatology Nurse; Sent: 06/17/2016 17:41:46 AGRONOMY TEACHER Show up: 06/17/2016 17:42:00 AGRONOMY TEACHER Subject: Results Notification No need to call patient. Letter sent. A. DermPath Consultation, Wet Tissue; right medial shoulder: Lentiginous junctional nevus Comment: Clinical photo reviewed. Results: Date Result Name Value 06/08/2016 12:00 Drm Exam Accn-Val[place] [id number] 06/08/2016 12:00 Drm Exam Addr-Valley See Comment 06/08/2016 12:00 Drm Exam Impr-Val[place] See Comment 06/08/2016 12:00 Drm Exam Mtrl-[place] See Comment 06/08/2016 12:00 Drm Exam Refer-Val[place] See Comment 06/08/2016 12:00 Drm Exam Sign-[place] See Comment 06/08/2016 12:00 Drm Exam Site-[place] See Comment [facility] Document Id: [id number] Miscellaneous - Carlo Carey M.D. - 06/17/2016 5:41 PM CST Custom Result Letter June 17, 2016 HUSSEIN WHITTAKER [address] [facility] [id number] Dear HUSSEIN WHITTAKER, During your evaluation in [...] questions. Result Name Current Result Drm Exam Accn-Val[place] [id number] 06/08/2016 Drm Exam Addr-Bello See Comment 06/08/2016 Drm Exam Impr-[place]ello See Comment 06/08/2016 Drm Exam Mtrl-Valley See Comment 06/08/2016 Drm Exam Refer-Bello See Comment 06/08/2016 Drm Exam Sign-[place] See Comment 06/08/2016 Drm Exam Site-Valley See Comment 06/08/2016 Sincerely, CARLO CAREY [facility] [address] [place] [id number] Electronic Signature Electronically Signed By: CARLO CAREY MD On: June 17, 2016 This document has images extracted. Source: [facility] POWERCHART Document Id: [id number] Electronically signed by Hung, [facility] Collar Tailor [id number] at 10/29/2016 3:22 AM CDT Telephone Encounter - Conversion, Historical Provider Ser - 06/17/2016 9:06 AM CST *Phone Message Document Contains Addenda Addendum by BREANN BECERRA on June 17, 2016 16:35:16 AGRONOMY TEACHER Spoke with the patient and he thought that Dr. Carey was refilling his omeprazole. I explained that Dr. Carey does not prescribe omeprazole and he would need to be seen by Family practice for refill or he could try omeprazole over the counter. Patient thanked me for the clarification. Addendum by ANNETTE ESPINAL on June 17, 2016 15:47:26 AGRONOMY TEACHER From: ANNETTE ESPINAL ([place] [facility] Arcade Attendant) To: [place] Dermatology Nurse; Sent: 06/17/2016 15:47:26 AGRONOMY TEACHER ! Subject: FW: *Phone Message Please call Hussein back as he called again to get this taken care of. From: ANNETTE ESPINAL ([place] [facility] Arcade Attendant) To: [place] Dermatology Nurse; Sent: 06/17/2016 09:06:53 AGRONOMY TEACHER ! Subject: *Phone Message Caller is: ( [...] fill. Please call on his cell phone [phone]. Advice/Action: Source used: ( ) Verbalizes understanding [...] back cell phone number ( ) [facility] Document Id: [id number] Miscellaneous - Durga Bautista I, R.N. - 06/12/2016 12:29 PM CST *General Message From: DURGA BAUTISTA RN ([place] Colon[place]) To: [place] Colonoscopy Pool; Sent: 06/12/2016 12:29:00 AGRONOMY TEACHER Subject: *General Message Due Date/Time: 11/23/2019 12:28:00 CDT Source: [facility] [employer] Document Id: [id number] Electronically signed by [facility], [facility] Collar Tailor [id number] at 10/29/2016 3:22 AM CDT Miscellaneous - Carlo Carey M.D. - 06/08/2016 12:16 PM CST Ambulatory Patient Summary [place] [place] [id number] Visit Information Name: HUSSEIN WHITTAKER [facility] Number: [id number] Current Date: 06/08/2016 12:16:05 Physicians Attending Provider: CARLO CAREY MD Primary Care Provider: WILBERTO OLGUIN HOT TAMALE WORKER HUSSEIN WHITTAKER has been given the [...] 4 months for precancers. New Routed to [address] [address] ketoconazole topical (Nizoral 2% topical shampoo) 1 matteo, Topical, once a day use as shampoo to scalpand face wash. leave on for 3-5 minutes then rinse. This is a CHANGE Routed to [address] [place] [address] mometasone topical (mometasone 0.1% topical lotion) 1 matteo, Topical, once a day to seborrhoeic dermatitis of face once daily as needed. New Routed to [address] [address] omeprazole (omeprazole 40 mg oral [...] if you dont have one. Go to [email or web address] and click on Create Your Account. Then, follow the directions to complete the online form. Youll be asked for your [facility] number which you can find at the top of this document. Your Goals/Additional instructions: Source: [facility] POWERCHART Document Id: [id number] NOMY TEACHER Miscellaneous - Carlo Carey M.D. - 06/08/2016 12:16 PM CST Ambulatory Discharge Medication List [address] [id number] Visit Information Name: HUSSEIN WHITTAKER [facility] Number: [id number] Current Date: 06/08/2016 12:16:00 Attending Provider: CARLO CAREY MD Primary Care Provider: WILBERTO OLGUIN HOT TAMALE WORKER HUSSEIN WHITTAKER has been given the [...] 4 months for precancers. New Routed to [address] [address] ketoconazole topical (Nizoral 2% topical shampoo) 1 matteo, Topical, once a day use as shampoo to scalpand face wash. leave on for 3-5 minutes then rinse. This is a CHANGE Routed to [address] [address] mometasone topical (mometasone 0.1% topical lotion) 1 matteo, Topical, once a day to seborrhoeic dermatitis of face once daily as needed. New Routed to [address] [address] omeprazole (omeprazole 40 mg oral [...] MD Signed On:08-JUN-2016 12:15:59 Additional Information: Source: [facility] POWERCHART Document Id: [id number] NOMY TEACHER Miscellaneous - Conversion, Historical Provider Ser - 05/31/2016 2:27 PM AGRONOMY TEACHER *General Message From: TE MITTAL To: [place] Colonoscopy Pool; Sent: 05/31/2016 14:27:12 AGRONOMY TEACHER Subject: *General Message Please check patient. Last colonoscopy was 2009. Source: [facility] [employer] Document Id: [id number] documented in this encounter Plan of Treatment Not on filedocumented as of this encounter Procedures Procedure Name Priority Date/Time Associated Comments Diagnosis DERMATOPATHOLOGY CONSULT Routine 06/08/2016 12:00 Results for this PM AGRONOMY TEACHER procedure are i n the results section. LAB SURG PATH,LEVEL IV Routine 06/08/2016 12:00 R esults for this PRO AND TECH PM AGRONOMY TEACHER procedure are i n the results section. documented in this encounter Results LAB SURG PATH,LEVEL IV PRO AND TECH (06/08/2016 12:00 PM AGRONOMY TEACHER) Analysis Performed At [facility] logist Time Signature HXLvl IV Surg Performed POWERCHART [facility] Comment: Test Performed by: [place] [address] Sales Exhibitor: Song Payton II, M.D., Ph.D. Specimen Anatomical Collection Method Collection Time Receive d Time (Source) Location / / Volume Laterality Tissue 06/08/2016 12:00 06/11/2016 7:19 PM AGRONOMY TEACHER AM AGRONOMY TEACHER Historical Provider [facility]G LABORATORY Performing Organization Address City/State/ZIP Code Phon e Number POWERCHART PATHOLOGY DERMPATH CONSULT, WET TISSUE (06/08/2016 12:00 PM AGRONOMY TEACHER) [facility] gist Method Time Signature HXDrm Exam [id number] POWERCHART [facility]-Valley HXDrm Exam See Comment POWERCHART [facility]-[place] Comment: RESULT: Carlo Carey M.D. HXDrm Exam Addr-Valley See Comment POWERCH ART Comment: [facility]-[place] [place] [address] HXDrm Exam [facility]-[place] See Comment POWERCH ART Comment: RESULT: A. DermPath Consultatio n, Wet Tissue; right medial shoulder: HXDrm Exam Site-Valley See Comment POWERCH ART Comment: A. ??Received [...] submitted entirely in cassette A1. HXDrm Exam [facility]-Valley See Comment POWERCH ART Comment: A. ??DermPath Consultation, Wet Tissue; right medial shoulder: Lentiginous junctional nevus Comment: ??Clinical photo reviewed. HXDrm Exam Sign-Valley See Comment POWERCH ART Comment: RESULT: 06/13/2016 12:05 ??Interpreted by : Cari Robles M.D Report electronically signed by Cari Robles M.D. Transcribed by: [email or web address] 06/13/2016 10:08:56 Test Performed by: [place] [address] Sales Exhibitor: Song Payton II, M.D., Ph.D. Specimen (Source) Anatomical Collection Method Collection Time Re ceived Time Location / / Volume Laterality Tissue 06/08/2016 12:00 PM AGRONOMY TEACHER Carlo Carey M.D. LAB PATH DERM ORDERABLES Performing Organization Address City/State/ZIP Code Phon e Number POWERCHART documented in this encounter Visit Diagnoses Not on filedocumented in this encounter
--- OUTSIDE RECORDS SUMMARY | 2022-02-22 11:10 | XMS_ITS | Encounter Summary ---
:1960 Author Organization [facility] Address [address] [place] [address] Care Team Providers Name Role Phone Elsewhere, Pcp Primary Care Provider Unavailable Encounter Details Date Type Department Care Team Description 01/06/2020 Hospital Encounter Department of Sandra Sanches Injury Foot Initial Radiology in [place]ado Bui M.D. [place], [place] [address] [place] [address] [place] [phone] Social History Tobacco Use Types Packs/Day [...] you attend catholic or Patient refused 2021 faith services? 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
--- OUTSIDE RECORDS SUMMARY | 2022-02-22 11:10 | XMS_ITS | Encounter Summary ---
:1960 Author Organization [facility] Address [address] [place] [address] Care Team Providers Name Role Phone Elsewhere, Pcp Primary Care Provider Unavailable Reason for Visit Reason Comments Gardener's License Exam Mirza Equipment Encounter Details Date Type Department Care Team Description 01/23/2021 Office Visit Department of Sandra Sanches, Department Of Occupational Medicine [facility] Transportation in [address] Examination Department [address] [place] [address] [place] [address] (Primary Dx) [phone] Social History Tobacco Use [...] attend roman catholic or Patient refused 2021 mormonism services? 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 - 01/23/2021 3:45 PM CDT Gardener Medical Examination SUBJECTIVE Hussein Whittaker is a 60 y.o. 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 Color vision is normal. Field [...] periodic monitoring required due to Elevated BP. 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 [...] 8.0 01/23/2021 3:06 PM CDT RWOM Specific Taylor >=1.030 1.001 - 1.035 01/23/2021 3:06 PM CDT RWOM Urobilinogen 0.2 0.2 - 1.0 mg/dL 01/23/2021 3:06 PM CD T RWOM Specimen Anatomical Collection Method Collection Time Receive d Time (Source) Location / / Volume Laterality Urine 01/23/2021 3:06 PM 3:13 CDT PM CDT Generic Rals LAB URINE ORDERABLES Performing Organization Address City/State/ZIP Code Phon e Number [facility] [address] [place] [address] [place] [address] Occupational Medicine [address] documented in this encounter Visit Diagnoses Diagnosis Department Of Transportation Examination Department Of Motor Vehicles - Primary documented in this encounter Care Teams System Administration Manager Relationship Specialty Start Date End Date Elsewhere, Pcp PCP - General 06/07/19 documented as of this encounter
--- OUTSIDE RECORDS SUMMARY | 2022-02-22 11:10 | XMS_ITS | Encounter Summary ---
:1960 Author Organization [facility] Address [address] [place] [address] Care Team Providers Name Role Phone Beth Valderrama P.A.-C. Primary Care Provider Encounter Details Date Type Department Care Team Description 04/21/2019 Clinical Department of David, Clara, Communication [facility]ology in [facility] [place]ina [place], [place] [address] [place] [address] [place], [place] [phone] [address] Social History Tobacco Use Types Packs/Day [...] you attend yazidi or Patient refused 2021 jehovah's witness services? 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 - 04/23/2019 10:45 AM KILN HEAD HOUSE OPERATOR Called patient, relayed provider's message, see below, patient verbalized understanding and appointment is scheduled with Clara Hernandez P.A.-C. for 04/27/2019. HEAD HOUSE OPERATOR Telephone Encounter - Josue Veras L.P.N. - 04/22/2019 1:55 PM CST Called patient and left generic voice message on unidentified voice mailbox to return call to nurse line. HEAD HOUSE OPERATOR Telephone Encounter - Clara Hernandez P.A.-C. - 04/22/2019 1:38 PM CST Please have him come back in for a recheck. Thank you HEAD HOUSE OPERATOR Telephone Encounter - Josue Veras L.P.N. [...] leaving May 04, 2019 to go to [place] and would like to know if there is anything they can do before they leave. Routing to provider to address. HEAD HOUSE OPERATOR Telephone Encounter - Josue Veras L.P.N. - 04/22/2019 8:54 AM CST Called patient and left generic message on unidentified mailbox for a return call to nurse line. HEAD HOUSE OPERATOR Telephone Encounter - Josue Veras L.P.N. - 04/21/2019 8:11 AM CST Received message from patient, patient's message was inaudible. Crust Sorter called and left generic voicemessage on unidentified mailbox to return call to nurse line. HEAD HOUSE OPERATOR documented in this encounter Plan of Treatment Not on filedocumented as of this encounter Visit Diagnoses Not on filedocumented in this encounter Care Teams Mathematical Technician Relationship Specialty Start Date End Date Beth Valderrama P.A.-C. PCP - General Family Medicine 09/15/17 06/06/19 documented as of this encounter
--- OUTSIDE RECORDS SUMMARY | 2022-02-22 11:10 | XMS_ITS | Encounter Summary ---
:1960 Author Organization [facility] Address [address] [place] [address] Care Team Providers Name Role Phone Soren Olguin APRN, C.N.P. Primary Care Provider [phone] Encounter Details Date Type Department Care Team Description 02/05/2017 Hospital Encounter HX [facility] [place] Kayla Kelley M.D. [address] [place] [address] [place] [phone] (Wo rk) Social History [...] you attend scientology or Patient refused 2021 yazdanism services? Do [...] at Date Recorded Male 06/23/2021 7:46 PM CODING ANALYST documented as of this encounter Last [...] KELLEY MD On: 02/05/2017 05:32 PM Source: [facility] POWERCHART Document Id: [id number] documented in this encounter Miscellaneous Notes Miscellaneous - Kayla Kelley M.D. - 02/05/2017 5:48 PM CDT Ambulatory Patient Summary [address] [id number] Visit Information Name: PILO HERNANDEZ [facility] Number: [id number] Current Date: 02/05/2017 17:48:50 [...] day This is a CHANGE Routed to [address] [address] Stop Taking the Following Medications: Medication list [...] online form. Youll be asked for your [facility] number which you can find at the top of this document. Your Goals/Additional instructions: Source: [facility] POWERCHART Document Id: [id number] Miscellaneous - Kayla Kelley M.D. - 02/05/2017 5:48 PM CDT Ambulatory Discharge Medication List [address] [id number] Visit Information Name: PILO HERNANDEZ ELIU [facility] Number: [id number] Current Date: 02/05/2017 17:48:48 [...] day This is a CHANGE Routed to [address] [id number] Stop Taking the Following Medications: Medication list [...] MD Signed On:05-FEB-2017 17:48:46 Additional Information: Source: [facility] POWERCHART Document Id: [id number] Miscellaneous - Frances Ring, L.P.N. - 02/05/2017 [...] RING LPN - 02/05/2017 17:09 CDT [facility] Document Id: [id number] CDT!8 Miscellaneous - Frances Ring L.P.N. - 02/05/2017 5:01 PM CDT Adult Dye Line Operator Intake/History Adult Dye Line Operator Intake/History Entered On: 02/05/2017 17:07 CDT Performed [...] Information Given By : Patient Languages : Wolof Is Patient Female and 13-50 no hysterectomy [...] RING LPN - 02/05/2017 17:01 CDT Source: [facility] POWERCHART Document Id: [id number] CDT!37 documented in this encounter Plan of [...] Color Yellow Colorless POWERCHART Specific >=1.030 POWERCHART [place], POCT, U Comment: Reference Range Specific [place]: 1.000-1.035 pH, POCT, Urine 5.0 <5.0 POWERCHART [...] on filedocumented in this encounter Care Teams Spectacle Truer Relationship Specialty Start Date End Date Soren Olguin APRN, C.N.P. PCP - General 10/31/16 09/14/17 documented as of this encounter
--- OUTSIDE RECORDS SUMMARY | 2022-02-22 11:10 | XMS_ITS | Encounter Summary ---
:1960 Author Organization [facility] Address [address] [place] [address] Care Team Providers Name Role Phone Beth Valderrama P.A.-C. Primary Care Provider Reason for Visit Reason Comments Med Refill Encounter Details Date Type Department Care Team Description 11/11/2017 Refill Department of Family Medicine, Maximo Valderrama, Med Refill [facility], in [place] [address] [address] [place] [address] [phone] Social History Tobacco Use Types Packs/Day Years [...] you attend anabaptism or Patient refused 2021 pentecostal services? 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 PCP - General Family Medicine 09/15/17 06/06/19 documented as of this encounter
--- OUTSIDE RECORDS SUMMARY | 2022-02-22 11:10 | XMS_ITS | Encounter Summary ---
:1960 Author Organization [facility] Address [address] [place] [address] Care Team Providers Name Role Phone Beth Valderrama P.A.-C. Primary Care Provider Encounter Details Date Type Department Care Team Description 02/25/2018 Orders Only Department of Family Beth Valderrama C ardiac Vascular Disease Screening (Primary Dx); Medicine, Yuki Garcia P.A.-C. Screening Examination Diabetes Mellitus [facility], [address] [place] [address] [address] [address] [place] [phone] [address] (Work) [phone] Social History Tobacco Use Types Packs/Day Years [...] you attend buddhist or Patient refused 2021 faith services? 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 Screening Examination Diabetes Mellitus documented in this encounter Care Teams Ibm Bpm Developer Relationship Specialty Start Date End Date Beth Valderrama P.A.-C. PCP - General Family Medicine 09/15/17 06/06/19 documented as of this encounter
--- OUTSIDE RECORDS SUMMARY | 2022-02-22 11:10 | XMS_ITS | Encounter Summary ---
:1960 Author Organization [facility] Address [address] [place] [address] Care Team Providers Name Role Phone Elsewhere, Pcp Primary Care Provider Unavailable Encounter Details Date Type Department Care Team Description 09/05/2020 Immunization Department of [facility] Luis Alberto De Jesus For COVID-19 Medicine, [place] Codie Bui. 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
--- OUTSIDE RECORDS SUMMARY | 2022-02-22 11:11 | XMS_ITS | Encounter Summary ---
:1960 Author Organization [facility] Address [address] [place] [address] Care Team Providers Name Role Phone Unavailable Primary Care Provider Unavailable Encounter Details Date Type Department Care Team Description 02/12/2013 Hospital Encounter HX [facility] Mikey Smith III, M.D. [address] [place] [phone] (Wo rk) Social [...] you attend alevism or Patient refused 2021 anabaptist services? 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 - 02/12/2013 3:04 PM CDT [id number] CHIEF COMPLAINT/REASON FOR VISIT Routine DOT. HISTORY OF PRESENT ILLNESS Mr. Hernandez is a 52-year-old white male with no significant past medical history. 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 He is cleared for 2 years without restrictions. Planned follow-up at that time for reevaluation. IMPRESSION/REPORT/PLAN Routine DOT exam. His questions were answered and reassurance was given. Harvinder Stuart M.D./[facility] Electronically Signed By: HARVINDER STUART III, MD On: 02/22/2013 09:08 PM Source: [facility] MHSDOLBEFRANCES Document Id: [id number] documented in this encounter Miscellaneous Notes Miscellaneous - Harvinder Stuart M.D. - 02/12/2013 4:17 PM CDT Ambulatory Depart Summary [address] [address] Visit Information Name: PILO HERNANDEZ [facility] Number: [id number] Visit Date: 02/12/2013 16:17:26 [...] your provider for clarification. Additional Information: Source: [facility] POWERCHART Document Id: [id number] Miscellaneous - Harvinder Stuart M.D. - 02/12/2013 4:17 PM CDT Ambulatory Patient Summary [address] [address] Visit Information Name: PILO HERNANDEZ [facility] Number: [id number] Current Date: 02/12/2013 16:17:27 [...] No Appointments found Your Goals/Additional instructions: Source: [facility] POWERCHART Document Id: [id number] Miscellaneous - Ethel Eid L.P.N. - 02/12/2013 3:29 PM CDT Adult Lighter Captain Intake/History Adult Lighter Captain Intake/History Entered On: 02/12/2013 15:30 CDT Performed [...] Information Given By : Patient Languages : Rwandan ETHEL EID LPN - 02/12/2013 15:29 CDT [...] EID LPN - 02/12/2013 15:29 CDT Source: [facility] [employer] Document Id: [id number] CDT!36 Miscellaneous - Ethel Eid L.P.NFarshad - [...] Stoney AYALA - 02/12/2013 15:09 CDT Source: [facility] POWERCHART Document Id: [id number] CDT!30 documented in this encounter Plan of Treatment Not on filedocumented as of this encounter Procedures Procedure Name Priority Date/Time Associated Diagnosis Comme nts DIPSTICK, U Routine 02/12/2013 3:20 PM Results f or this CDT procedure are i n the results section . documented in this encounter Results Dipstick, Urine (02/12/2013 3:20 PM CDT) [facility] gist Method Time Signature HXUr Color Yellow Yellow POWERCHART Appearance Clear Clear POWERCHART Glucose Negative Negative POWERCHART HXBILIRUBIN Negative Negative POWERCHART Ketones, QL(U) Negative Negative POWERCHART Specific 1.025 1.000 - POWERCHART [place], POCT, U 1.030 pH, POCT, Urine 7.0 [...]
--- OUTSIDE RECORDS SUMMARY | 2022-02-22 11:11 | XMS_ITS | Encounter Summary ---
:1960 Author Organization [facility] Address [address] [place] [address] Care Team Providers Name Role Phone Unavailable Primary Care Provider Unavailable Encounter Details Date Type Department Care Team Description 09/18/2013 Hospital Encounter HX [facility] FAMILY Zohaib Montes M.D. [address] [facility], [address] [place], [place] [address] (Wo rk) Social History [...] you attend mosque or Patient refused 2021 islam services? 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 0 01/1804/13/2021 documented as of this encounter Progress Notes Carlo Carey M.D. - 09/18/2013 11:52 AM CDT [id number] CHIEF COMPLAINT/REASON FOR VISIT Scaling rash on [...] CAREY MD On: 02/16/2014 11:42 PM Source: [facility] MHSDOLBEYNONRADSYS Document Id: [id number] documented in this encounter Nursing Notes Frances Ring L.P.NFarshad - 03/29/2014 11:26 AM CST flu shot no contraindications flu shot given by AM, RN documentend by CHU dudley Electronically Signed By: FRANCES RING LPN On: 04/01/2014 11:26 AM Source: [facility] POWERCHART Document Id: [id number] UCT RESPONSIBILITY LIAISON Christian Oconnor L.P.N. - 09/18/2013 11:58 AM [...] OCONNOR LPN - 09/18/2013 11:58 CDT [facility] Document Id: [id number] CDT!31 documented in this encounter Plan of Treatment Not on filedocumented as of this encounter Visit Diagnoses Not on filedocumented in this encounter
--- OUTSIDE RECORDS SUMMARY | 2022-02-22 11:11 | XMS_ITS | Encounter Summary ---
:1960 Author Organization [facility] Address [address] [place] [address] Care Team Providers Name Role Phone Unavailable Primary Care Provider Unavailable Encounter Details Date Type Department Care Team Description 02/07/2015 Hospital Encounter HX [facility] Nhan Polk M.D. [address] [place] [phone] (Wo rk) Social [...] you attend orthodoxy or Patient refused 2021 taoist services? 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 No active concerns. Health history reviewed in detail with patient and was negative. Please refer to the Medical Examination Report for Real Estate Professional Fitness Determination for complete details regarding this [...] OSULLIVAN MD On: 02/07/2015 03:48 PM Source: [facility] VOLITIONRX Document Id: [id number] documented in this encounter Procedure Notes Breann [...] BREANN RIVERA - 02/07/2015 15:16 CDT Source: [facility] [employer] Document Id: [id number] CDT!10 documented in this encounter Miscellaneous Notes [...] but it is advised. From: ANNETTE ESPINAL ([place] [facility] Oil Heat Technician) To: [place] [facility] Nurse Coy; Sent: 09/19/2016 17:31:08 [...] he needs these done. His number is [phone]. Advice/Action: Source used: ( ) Verbalizes understanding [...] back cell phone number ( ) Source: [facility] POWERCHART Document Id: [id number] ENTER HELPER MAINTENANCE Miscellaneous - Breann iRvera, L.P.N. - 02/07/2015 3:10 PM CDT Adult Stock Grader Intake/History Adult Stock Grader Intake/History Entered On: 02/07/2015 15:15 CDT Performed [...] Information Given By : Patient Languages : Albanian Is Patient Female and 13-50 no hysterectomy [...] None BREANN RIVERA 02/07/2015 15:10 CDT Source: [facility] CCS HoldingCHART Document Id: [id number] CDT!38 documented in this encounter Plan of Treatment Not on filedocumented as of this encounter Procedures Procedure Name Priority Date/Time Associated Diagnosis Comme nts DIPSTICK, U Routine 02/07/2015 3:07 PM Results f or this CDT procedure are i n the results section . documented in this encounter Results (ABNORMAL) Dipstick, Urine (02/07/2015 3:07 PM CDT) [facility] Method Time Signature HXUr Color Yellow Colorless POWERCHART Clarity Clear Clear POWERCHART Glucose Negative Negative POWERCHART MGDL HXBILIRUBIN Negative Negative POWERCHART Ketones, QL(U) Negative Negative POWERCHART MGDL Specific 1.020 POWERCHART [place], POCT, U pH, POCT, Urine 7.0 <5.0 [...]
--- OUTSIDE RECORDS SUMMARY | 2022-02-22 11:11 | XMS_ITS | Encounter Summary ---
:1960 Author Organization [facility] Address [address] [place] [address] Care Team Providers Name Role Phone Unavailable [...] you attend congregation or Patient refused 2021 buddhist services? 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 hernandez is a pleasant 52-year-old gentleman [...] TONG PA-C On: 09/23/2013 09:31 AM Source: [facility] MHSDOLBEYNONRADSYS Document Id: [id number] documented in this encounter Miscellaneous Notes Miscellaneous - Matt Tong - 09/14/2013 4:11 PM CDT Ambulatory Patient Summary [id number] [place], [place] [phone] Visit Information Name: PILO HERNANDEZ [facility] Number: [id number] Current Date: 09/14/2013 16:11:05 Physicians Attending Provider: MATT TONG PA-C Primary Care Provider: HARVINDER STUART III, MD PILO HERNANDZE has been given the following list of [...] Date Time Location Reason Provider 09/18/2013 12:00 [facility] Family Med Rash on face Jamarcus Gordlilo MD 09/21/2013 15:15 [facility] 3 Matt Tong PA-C Attention: Contact your local Clinic if further appointment detail needed. Your Goals/Additional instructions: Source: [facility] POWERCHART Document Id: [id number] Miscellaneous - Matt Tong - 09/14/2013 4:11 PM CDT Ambulatory Discharge Medication List [place] - Specialty [address] [place], [place] [phone] Visit Information Name: PILO HERNANDEZ [facility] Number: [id number] Visit Date: 09/14/2013 16:11:03 [...] PA-C Signed On:14-SEP-2013 16:11:01 Additional Information: Source: [facility] POWERCHART Document Id: [id number] Miscellaneous - Roma Lindo, RFarshadN. - 09/14/2013 3:19 PM CDT Adult Operations Systems Specialist Intake/History Adult Operations Systems Specialist Intake/History Entered On: 09/14/2013 15:21 CDT Performed On: 09/14/2013 15:19 CDT by ROMA LINDO sheet metal fabricator Chief Complaint : Here for second injection [...] Preferred Communication Mode : Verbal Languages : Armenian ROMA LINDO RN - 09/14/2013 15:19 CDT [...] ROMA LINDO - 09/14/2013 15:19 CDT Source: [employer] Document Id: [id number] CDT!32 documented in this encounter Plan of Treatment Not on filedocumented as of this encounter Visit Diagnoses Not on filedocumented in this encounter
--- OUTSIDE RECORDS SUMMARY | 2022-02-22 11:11 | XMS_ITS | Encounter Summary ---
:1960 Author Organization [facility] Address [address] [place] [address] Care Team Providers Name Role Phone Unavailable Primary Care Provider Unavailable Encounter Details Date Type Department Care Team Description 07/22/2011 Hospital Encounter HX [facility] Roger Lopez M.D. [address] [place], [place] [address] (Wo rk) Social History Tobacco Use Types [...] you attend yarsani or Patient refused 2021 mosque services? 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 CREATININE WITH Routine 07/22/2011 12:45 PM Resul ts for this EGFR, S/P MEDICAL BILLING INSTRUCTOR procedure are i n the results section. documented in this encounter Results (ABNORMAL) Creatinine with eGFR (07/22/2011 12:45 PM MEDICAL BILLING INSTRUCTOR) athologist Signature Creatinine 0.94 0.60 - POWERCHART 1.30 MGDL HXeGFR (MDRD) >60 (H) <=61 POWERCHART [id number] Comment: A GFR of <60 mL/min is indicative of chr onic kidney disease. (MDRD calculation valid on patients 18 - 70 years.) eGFR Black/ >60 MLMIN PO WERCHART Specimen (Source) Anatomical Collection Method Collection Time Re ceived Time Location / / Volume Laterality Blood 07/22/2011 12:45 PM MEDICAL BILLING INSTRUCTOR Lester Lopez M.D. LAB BLOOD ADD-ON Performing Organization Address City/State/ZIP Code Phon e Number POWERCHART (ABNORMAL) BUN (Blood Urea Nitrogen) (07/22/2011 12:45 PM MEDICAL BILLING INSTRUCTOR) athologist Signature BUN (Blood Urea 19 (H) 7 - 18 POWERCHART Nitrogen), S MGDL Specimen (Source) Anatomical Collection Method Collection Time Re ceived Time Location / / Volume Laterality Blood 07/22/2011 12:45 PM MEDICAL BILLING INSTRUCTOR Lester Lopez M.D. LAB BLOOD ADD-ON Performing Organization Address City/State/ZIP Code Phon e Number POWERCHART documented in this encounter Visit Diagnoses Not on filedocumented in this encounter
--- OUTSIDE RECORDS SUMMARY | 2022-02-22 11:11 | XMS_ITS | Encounter Summary ---
:1960 Author Organization [facility] Address [address] [place] [address] Care Team Providers Name Role Phone Unavailable Primary Care Provider Unavailable Encounter Details Date Type Department Care Team Description 06/18/2013 Hospital Encounter HX NO MAPPING Noe Mijares M.D. [address] [place], [place] [phone] (Wo rk) Social History [...] you attend anglican or Patient refused 2021 congregation services? 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 0 01/1804/13/2021 documented as of this encounter Consult Notes Dk Mijares M.D. - 06/18/2013 9:02 AM CST [id number] HISTORY OF PRESENT ILLNESS Pilo is a [...] MIJARES MD On: 06/29/2013 01:50 PM Source: [facility] MHSDOLBEYNRANDYS Document Id: [id number] HEATER documented in this encounter Miscellaneous Notes Miscellaneous - Dk Mijares M.D. - 06/18/2013 12:19 PM CST Ambulatory Patient Summary [address] [place] [address] Visit Information Name: PILO HERNANDEZ [facility] Number: [id number] Current Date: 06/18/2013 12:19:25 Physicians [...] appointment detail needed. Your Goals/Additional instructions: Source: [facility] POWERCHART Document Id: [id number] HEATER Miscellaneous - Dk Mijares M.D. - 06/18/2013 12:19 PM CST Ambulatory Depart Summary [facility] [address] [place] [address] Visit Information Name: PILO HERNANDEZ [facility] Number: [id number] Visit Date: 06/18/2013 12:19:24 Attending [...] in case of emergency. Additional Information: Source: [facility] POWERCHART Document Id: [id number] HEATER Miscellaneous - Roxy Shea, R.N. - 06/18/2013 9:06 AM CST Adult Carbonation Tester Intake/History Adult Carbonation Tester Intake/History Entered On: 06/18/2013 9:09 DOPE HEATER Performed On: 06/18/2013 9:06 DOPE HEATER by ROXY SHEA ground support equipment assembler Chief Complaint : f/u left knee pain and swelling which is getting worse, MRI results, HX knee [id number] Temperature Core : 36.6 DegC(Converted to: 97.9 DegF) Peripheral Pulse Rate : 80 /min Respiratory Rate : 16 /min Heart Rhythm : Regular Systolic Blood Pressure : 126 mmHg Diastolic Blood Pressure : 82 mmHg NIBP Mean : 97 mmHg BP Location : Right upper extremity Blood Pressure Cuff Size : Large SpO2 : 98 % ROXY SHEA RN - 06/18/2013 9:06 DOPE HEATER General Info Information Given By : Patient Preferred Communication Mode : Verbal Languages : Georgian ROXY SHEA RN - 06/18/2013 9:06 DOPE HEATER Subjective Pain Symptoms : Yes ROXY SHEA RN - 06/18/2013 9:06 DOPE HEATER Pain Pain Assessment Grid Pain 1 Location : Knee Laterality : Left ROXY SHEA RN - 06/18/2013 9:06 DOPE HEATER Dependent Habits Tobacco Use/Currently Using : No Exposure to Tobacco Smoke : Care provider denies smoking in home Smoking Status : Former smoker ROXY SHEA RN - 06/18/2013 9:06 DOPE HEATER Tobacco Use Grid Type : Cigarettes Last Use : 1996 ROXY SHEA RN - 06/18/2013 9:06 DOPE HEATER Caffeine Use Grid Caffeine Use : None ROXY SHEA RN - 06/18/2013 9:06 DOPE HEATER Recreational Drug Use Grid Drug Use : None ROXY SHEA RN - 06/18/2013 9:06 DOPE HEATER Source: [facility] POWERCHART Document Id: [id number] DOPE HEATER!38 HEATER documented in this encounter Plan of Treatment Not on filedocumented as of this encounter Visit Diagnoses Not on filedocumented in this encounter
--- OUTSIDE RECORDS SUMMARY | 2022-02-22 11:11 | XMS_ITS | Encounter Summary ---
:1960 Author Organization [facility] Address [address] [place] [address] Care Team Providers Name Role Phone Unavailable Primary Care Provider Unavailable Encounter Details Date Type Department Care Team Description 09/10/2012 Hospital Encounter HX [facility] Mikey Smith III, M.D. [address] [place] [phone] (Wo rk) Social [...] you attend baptism or Patient refused 2021 alevism services? 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 0 01/1804/13/2021 documented as of this encounter Progress Notes Harvinder Stuart M.D. - 09/10/2012 12:46 PM CDT [id number] CHIEF COMPLAINT/REASON FOR VISIT Complaints of sore throat since yesterday. HISTORY OF PRESENT ILLNESS Mr. Hernandez is a 51-year-old white male who experienced sore throat and fever that began yesterday along with all over body aches and mild headache. He did take a little bit of ibuprofen yesterday whichhelped a little but otherwise he has not taken any iobh-qnv-sckucxg treatments. SYSTEMS REVIEW Pertinent positives and negative [...] answered and reassurance was given. Harvinder Stuart M.D./[facility] Electronically Signed By: HARVINDER STUART III, MD On: 09/10/2012 03:30 PM Source: [facility] MHSDOLBEYNONRADSYS Document Id: [id number] documented in this encounter Miscellaneous Notes Miscellaneous - Harvinder Stuart M.D. - 09/10/2012 1:22 PM CDT Ambulatory Depart Summary [address] [address] Visit Information Name: PILO HERNANDEZ [facility] Number: [id number] Visit Date: 09/10/2012 13:22:38 Attending Provider: HARVINDER STUART III, MD Primary Care Provider: [facility], ROAD TRAIN DRIVER PILO HERNANDEZ has been given the following [...] your provider for clarification. Additional Information: Source: [facility] POWERCHART Document Id: [id number] Natali - Harvinder Stuart M.D. - 09/10/2012 1:22 PM CDT Ambulatory Patient Summary [facility] [address] [place] [address] Visit Information Name: PILO HERNANDEZ [facility] Number: [id number] Current Date: 09/10/2012 13:22:39 Physicians Attending Provider: HARVINDER STUART III, MD Primary Care Provider: [facility], ROAD TRAIN DRIVER Your Medications Here is a list of [...] No Appointments found Your Goals/Additional instructions: Source: [facility] [employer] WirelessCH[employer] Document Id: [id number] Miscellaneous - Ethel Eid L.P.N. - 09/10/2012 1:01 PM CDT Adult [place] Intake/History Document Has Been Updated Adult Tar [place]el Intake/History Entered On: 09/10/2012 13:03 CDT Performed [...] Information Given By : Patient Languages : Danish ETHEL EID LPN - 09/10/2012 13:01 CDT [...] EID LPN - 09/10/2012 13:01 CDT Source: [facility] POWERCHART Document Id: [id number] CDT!8 documented in this encounter Plan of [...] Strep A Screen (09/10/2012 1:00 PM CDT) [facility] Motility Count Method Time Signature HXRapid Strep POWERCHART Confirmation HXPre Negative for POWERCHART Group A Strep by culture. HXFinal Negative for POWERCHART Group A Strep by culture. Specimen Anatomical Collection Method Collection Time Receive d Time (Source) Location / / Volume Laterality Throat 09/10/2012 1:00 PM 3 1:00 CDT PM CDT Harvinder Stuart III, M.D. LAB MICROBIOLOGY - GENE RAL ORDERABLES Performing Organization Address [facility] Phon e Number POWERCHART Rapid Strep A Screen (09/10/2012 12:56 PM CDT) [facility] Method Time Signature HXStrep A POWERCHART Screen Rapid HXFinal Negative for POWERCHART Strep Group A by rapid screen. HXFinal Culture POWERCHART confirmation to follow. Specimen (Source) Anatomical Collection Method Collection Time Re ceived Time Location / / Volume Laterality Throat 09/10/2012 12:56 PM CDT Harvinder Stuart III, M.D. LAB MICROBIOLOGY - GENE RAL ORDERABLES Performing Organization Address [facility] Code Phon e Number POWERCHART documented in this encounter Visit Diagnoses Not on filedocumented in this encounter
--- OUTSIDE RECORDS SUMMARY | 2022-02-22 11:11 | XMS_ITS | Encounter Summary ---
:1960 Author Organization [facility] Address [address] [place] [address] Care Team Providers Name Role Phone Unavailable Primary Care Provider Unavailable Encounter Details Date Type Department Care Team Description 01/05/2015 Hospital Encounter HX [facility] Soren Shea , ANA, C.N.P. [address] [place], [place] [address] (Wo rk) Social History [...] you attend anabaptism or Patient refused 2021 bahai services? 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 0 01/1804/13/2021 documented as of this encounter Plan of Treatment Not on filedocumented as of this encounter Visit Diagnoses Not on filedocumented in this encounter
--- OUTSIDE RECORDS SUMMARY | 2022-02-22 11:11 | XMS_ITS | Encounter Summary ---
:1960 Author Organization [facility] Address [address] [place] [address] Care Team Providers Name Role Phone Unavailable Primary Care Provider Unavailable Encounter Details Date Type Department Care Team Description 09/07/2013 Hospital Encounter HX NO MAPPING Matt Togn, PFarshadA.Teri C. Social History Tobacco Use Types [...] you attend sikhism or Patient refused 2021 jain services? 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 Hernandez is a pleasant 52-year-old gentleman [...] TONG PA-C On: 09/16/2013 03:34 PM Source: [facility] MHSDOLBEYNONRADSYS Document Id: [id number] documented in this encounter Miscellaneous Notes Miscellaneous - Matt Tong - 09/07/2013 3:56 PM CDT Ambulatory Patient Summary [facility] [address] [facility] [place] [id number] Visit Information Name: PILO HERNANDEZ [facility] Number: [id number] Current Date: 09/07/2013 15:56:22 Physicians [...] Date Time Location Reason Provider 09/14/2013 15:15 [facility] Clin Synvisc 2 Matt Tong PA-C 09/18/2013 12:00 [facility] Family Med Rash on face Jamarcus Gordillo MD 09/21/2013 15:15 [facility] Clin Synvisc 3 Matt Tong PA-C Attention: Contact your local Clinic if further appointment detail needed. Your Goals/Additional instructions: Source: [facility] POWERCHART Document Id: [id number] Miscellaneous - Matt Tong - 09/07/2013 3:56 PM CDT Ambulatory Discharge Medication List [id number] [place], [place] [phone] Visit Information Name: MARY PILO NWOAK [facility] Number: [id number] Visit Date: 09/07/2013 15:56:21 Attending [...] PA-C Signed On:07-SEP-2013 15:56:20 Additional Information: Source: [facility] POWERCHART Document Id: [id number] Miscellaneous - Roxy Olguin R.N. - 09/07/2013 3:34 PM CDT Adult Tank Builder Helper Intake/History Adult Tank Builder Helper Intake/History Entered On: 09/07/2013 15:37 CDT Performed On: 09/07/2013 15:34 CDT by ROXY OLGUIN finance effectiveness manager Chief Complaint : f/u left knee pain, [...] Verbal Languages : [place]er ROXY OLGUIN RN - 09/07/2013 15:34 CDT [...] OLGUIN RN - 09/07/2013 15:34 CDT Source: [employer] Document Id: [id number] CDT!35 documented in this encounter Plan of Treatment Not on filedocumented as of this encounter Visit Diagnoses Not on filedocumented in this encounter
--- OUTSIDE RECORDS SUMMARY | 2022-02-22 11:11 | XMS_ITS | Encounter Summary ---
:1960 Author Organization [facility] Address [address] [place] [address] Care Team Providers Name Role Phone Unavailable [...] you attend evangelical or Patient refused 2021 advent services? 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 Hernandez is a pleasant 52-year-old gentleman [...] TONG PA-C On: 08/23/2013 09:29 AM Source: [facility] Document Id: [id number] documented in this encounter Miscellaneous Notes Miscellaneous - Matt Tong - 08/10/2013 3:55 PM CDT Ambulatory Patient Summary [facility] [id number] [facility] [place], [place] [phone] Visit Information Name: HUSSEIN HERNANDEZ [facility] Number: [id number] Current Date: 08/10/2013 15:55:20 Physicians [...] 1 Tablet(s), Oral, once a day HYDROcodone-acetaminophen (Fults 5 mg-325 mg oral tablet) 2 Tablet(s), [...] Date Time Location Reason Provider 09/18/2013 12:00 [facility] Family Med Rash on face Jamarcus Gordillo MD Attention: Contact your local Clinic if further appointment detail needed. Your Goals/Additional instructions: Source: [facility] POWERCHART Document Id: [id number] Natali - Matt Tong - 08/10/2013 3:55 PM CDT Ambulatory Discharge Medication List [address] [place], [place] [phone] Visit Information Name: HUSSEIN HERNANDEZ [facility] Number: [id number] Visit Date: 08/10/2013 15:55:19 Attending [...] 1 Tablet(s), Oral, once a day HYDROcodone-acetaminophen (Fults 5 mg-325 mg oral tablet) 2 Tablet(s), [...] in case of emergency. Additional Information: Source: [facility] POWERCHART Document Id: [id number] Natali - Roma Lindo R.N. - 08/10/2013 3:33 PM CDT Adult Paint Tester Intake/History Adult Paint Tester Intake/History Entered On: 08/10/2013 15:36 CDT Performed On: 08/10/2013 15:33 CDT by ROMA LINDO marble polisher hand Chief Complaint : Here for follow up [...] Preferred Communication Mode : Verbal Languages : Slovenian ROMA LINDO RN - 08/10/2013 15:33 CDT [...] LINDO RN - 08/10/2013 15:33 CDT Source: [employer] Document Id: [id number] CDT!32 documented in this encounter Plan of Treatment Not on filedocumented as of this encounter Visit Diagnoses Not on filedocumented in this encounter
--- OUTSIDE RECORDS SUMMARY | 2022-02-22 11:11 | XMS_ITS | Encounter Summary ---
:1960 Author Organization [facility] Address [address] [place] [address] Care Team Providers Name Role Phone Unavailable Primary Care Provider Unavailable Encounter Details Date Type Department Care Team Description 09/03/2012 Hospital Encounter HX NO MAPPING Luis Zuniga M.D. [address] [place], [place] [phone] (Wo rk) Social History [...] you attend jain or Patient refused 2021 hinduism services? 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 0 01/1804/13/2021 documented as of this encounter Plan of Treatment Not on filedocumented as of this encounter Visit Diagnoses Not on filedocumented in this encounter
--- OUTSIDE RECORDS SUMMARY | 2022-02-22 11:11 | XMS_ITS | Encounter Summary ---
:1960 Author Organization [facility] Address [address] [place] [address] Care Team Providers Name Role Phone Unavailable Primary Care Provider Unavailable Encounter Details Date Type Department Care Team Description 02/07/2014 Hospital Encounter HX [facility] Iva Stubbs III, M.D. [address] [place] [phone] (Wo rk) Social [...] you attend denominational or Patient refused 2021 bahai services? 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 0 01/1804/13/2021 documented as of this encounter Plan of Treatment Not on filedocumented as of this encounter Visit Diagnoses Not on filedocumented in this encounter
--- OUTSIDE RECORDS SUMMARY | 2022-02-22 11:11 | XMS_ITS | Encounter Summary ---
:1960 Author Organization [facility] Address [address] [place] [address] Care Team Providers Name Role Phone Unavailable Primary Care Provider Unavailable Encounter Details Date Type Department Care Team Description 07/15/2011 Hospital Encounter HX [facility] SURGERY Diaz Giraldo M.D. [address] , [address] [place], [place] [address] (Wo rk) Social History Tobacco Use Types [...] you attend mormon or Patient refused 2021 gnosticist services? Do [...] at Date Recorded Male 06/23/2021 7:46 PM LOCKSMITH APPRENTICE documented as of this encounter Last Filed Vital Signs Vital Sign Reading Time Taken Comments Blood Pressure 111/71 07/15/2011 9:40 AM LOCKSMITH APPRENTICE Pulse 60 07/15/2011 9:40 AM LOCKSMITH APPRENTICE Temperature - - Respiratory Rate 16 07/15/2011 9:40 AM LOCKSMITH APPRENTICE Oxygen Saturation - - Inhaled Oxygen Concentration - - Weight - - Height 182 cm (5' 11.65) 07/15/2011 7:37 AM LOCKSMITH APPRENTICE Body Mass Index - - documented in this encounter Medications at Time of Discharge Medication Sig Dispensed Refills Start Date End Date ASPIRIN ORAL Take 1 tablet by mouth daily. 0 01/1804/13/2021 documented as of this encounter Procedure Notes Jelena Hunter RShahzad - 07/15/2011 7:37 AM CST Preprocedure Checklist Preprocedure Checklist Entered On: 07/15/2011 7:44 LOCKSMITH APPRENTICE Performed On: 07/15/2011 7:37 LOCKSMITH APPRENTICE by JELENA HUNTER RN Checklist Last Fluid Intake : 07/14/2011 20:00 LOCKSMITH APPRENTICE Last Food Intake : 07/14/2011 20:00 LOCKSMITH APPRENTICE Last Void : 07/15/2011 7:00 LOCKSMITH APPRENTICE JELENA HUNTER RN - 07/15/2011 7:37 LOCKSMITH APPRENTICE Surgery Prep Grid Contacts/Glasses Removed : NA Dentures Removed : NA Hairpins/Hairpiecies Removed : NA Hearing Aid Removed : NA Home Prep Complete : NA Jewelry/Piercing Removed : NA Makeup/Nail Romansh Removed : NA Oral Hygiene : NA Preop Scrub AM of Surgery : NA Preop Scrub Night Prior to Surgery : NA Prosthesis Removed : NA Surgical Prep Verified : Yes Tampon Removed : NA Wearing Patient Gown : Yes JELENA HUNTER RN - 07/15/2011 7:37 LOCKSMITH APPRENTICE Patient Rights Grid Blood Consent Signed : NA Surgical/Procedure Consent Signed : Yes JELENA HUNTER RN - 07/15/2011 7:37 LOCKSMITH APPRENTICE Family Location : waiting at home JELENA HUNTER RN - 07/15/2011 7:37 LOCKSMITH APPRENTICE Checklist II Patient Safety Grid Allergy Band [...] NA JELENA HUNTER RN - 07/15/2011 7:37 LOCKSMITH APPRENTICE RN Who Verified Site : JELENA HUNTER RN Physician Who Verified Site : KHARI GIRALDO MD, GWYNNE A RN - 07/15/2011 7:37 LOCKSMITH APPRENTICE BALDO Screening Known Obstructive Sleep Apnea : No JELENA HUNTER RN - 07/15/2011 7:37 LOCKSMITH APPRENTICE BALDO Assessment Do you have high blood pressure or have you been told to take medication for high blood pressure? : No Frequency of Snoring : Often (1-2 times per week) Frequency of Gasping, Choking, Snorting : Never Neck Circumference (cm) : 44/45 Total Sleep Apnea Clinical Score : 7 Total Number of Historical Features : 0 JELENA HUNTER RN - 07/15/2011 7:37 LOCKSMITH APPRENTICE Valuables/Belongings Valuables/Belongings Grid Valuables at Bedside Clothes, Patient Valuables : Jacket, Pants, Shirt, Shoes JELENA HUNTER RN - 07/15/2011 7:37 LOCKSMITH APPRENTICE Education Preprocedure Education Grid Procedure Type : cystoscopy Education Topics : Anesthesia/Sedation, Plan of care Individuals Taught : Patient Barriers to Learning : None evident Teaching Method : Explanation Teaching Evaluation : Verbalizes understanding JELENA HUNTER RN - 07/15/2011 7:37 LOCKSMITH APPRENTICE Preop Holding Mode of Arrival : Ambulatory Preoperative Orders Complete : Yes JELENA HUNTER RN - 07/15/2011 7:37 LOCKSMITH APPRENTICE Advance Directive Advanced Directives : No EIELENJELENA ROLDAN RN - 07/15/2011 7:37 LOCKSMITH APPRENTICE Vital Signs Temperature Core : 36.5C(Converted to: [...] 235.40lb JELENA HUNTER RN - 07/15/2011 7:37 LOCKSMITH APPRENTICE Allergy Allergies (Active) Nyquil Cold Medicine Estimated Onset Date: Unspecified ; Created By: PRAVEEN KAUFFMAN RN; Reaction Status: Active ; Category: Drug ; Substance: Nyquil Cold Medicine ; Type: Allergy ; Updated By: PRAVEEN KAUFFMAN RN; Reviewed Date: 07/01/2011 17:21 LOCKSMITH APPRENTICE Preprocedural Pause Correct Patient Identity : Patient verbalizes self, Patient wristband ID, Family/responsible democrat ID Correct Procedure Site and Side : cystoscopy Correct Procedure Site/Side Verified By : Patient/responsible democrat, Nurse, MD Site Marking : N/A Pre-Procedure Pause Verbal Confirm. of : Procedure, Site, Side, Patient Position, Patient ID JELENA HUNTER RN - 07/15/2011 7:37 LOCKSMITH APPRENTICE Source: [facility] POWERCHART Document Id: [id number] LOCKSMITH APPRENTICE!91 SMITH APPRENTICE documented in this encounter Nursing Notes Jelena Hunter R.N. - 07/15/2011 7:21 AM CST Day Surgery Admission History/Asmt Adult Document Has Been Updated Day Surgery Admission History/Asmt Adult Entered On: 07/15/2011 7:36 LOCKSMITH APPRENTICE Performed On: 07/15/2011 7:21 LOCKSMITH APPRENTICE by JELENA HUNTER RN General Info Preferred Name : Ray Mode of Arrival : Ambulatory Accompanied By : Alone Chief Complaint : here for cystoscopy Preferred Communication Mode : Verbal Information Given By : Patient Languages : Welsh Have you received chemotherapy in last 48 hours? : No JELENA HUNTER RN - 07/15/2011 7:21 LOCKSMITH APPRENTICE Allergy Allergies (Active) Nyquil Cold Medicine Estimated Onset Date: Unspecified ; Created By: PRAVEEN KAUFFMAN RN; Reaction Status: Active ; Category: Drug ; Substance: Nyquil Cold Medicine ; Type: Allergy ; Updated By: PRAVEEN KAUFFMAN RN; Reviewed Date: 07/01/2011 17:21 LOCKSMITH APPRENTICE Anesth/Transfusion Anesthesia/Transfusions : Prior anesthesia JELENA HUNTER RN - 07/15/2011 7:21 LOCKSMITH APPRENTICE ID Screen Drug Resistant Organism : No JELENA HUNTER RN 07/15/2011 7:21 LOCKSMITH APPRENTICE Nutrition Nutrition Risk Factors by History Adult : None Home Diet : Regular Feeding Ability : Complete independence Eating Difficulties : None Appetite : Excellent JELENA HUNTER RN 07/15/2011 7:21 LOCKSMITH APPRENTICE Home Environment Current Daily Living Assistance : None Living Situation : Home independently Home Equipment : None Sensory Deficits : None Mobility Assistance Prior to Admission : Independent Current Home Treatments : None Professional Skilled Services : None Special Services and Community Resources : None JELENA HUNTER RN 07/15/2011 7:21 LOCKSMITH APPRENTICE Dependent Habits Alcohol Use : Yes JELENA HUNTER 07/15/2011 7:44 LOCKSMITH APPRENTICE Tobacco Use/Currently Using : No Tobacco Use/Last 12 months : No Exposure to Tobacco Smoke : Care provider denies smoking in home JELENA HUNTER 07/15/2011 7:21 LOCKSMITH APPRENTICE Smoking Status : Former smoker JELENA HUNTER 07/15/2011 7:44 LOCKSMITH APPRENTICE JELENA HUNTER 07/15/2011 7:44 LOCKSMITH APPRENTICE Tobacco Use Grid Type : Cigarettes Last Use : 1996 JELENA HUNTER RN 07/15/2011 7:21 LOCKSMITH APPRENTICE Caffeine Use Grid Caffeine Use : None JELENA HUNTER RN 07/15/2011 7:21 LOCKSMITH APPRENTICE Recreational Drug Use Grid Drug Use : None JELENA HUNTER RN - 07/15/2011 7:21 LOCKSMITH APPRENTICE AUDIT Tool How Often Do You Have A Drink : 2 to 3 times a week How Many Drinks in a Day When Drinking : 1 or 2 Six or More Drinks On One Occassion : Never Audit Phase 1 Score : 3 EILEENARLEY ANTONIOYNWALKER Mcgarry RN - 07/15/2011 7:44 LOCKSMITH APPRENTICE Psychosocial Adult Domestic Abuse Concerns : None JELENA HUNTER RN - 07/15/2011 7:21 LOCKSMITH APPRENTICE Advance Directive Advanced Directives : No JELENA HUNTER - 07/15/2011 7:21 LOCKSMITH APPRENTICE Educ Needs Patient/Family Education Needs : Plan of care, Surgery JELENA HUNTER 07/15/2011 7:21 LOCKSMITH APPRENTICE Learning Style Preference Adult Grid Patient : Verbal explanation Family : None JELENA HUNTER - 07/15/2011 7:21 LOCKSMITH APPRENTICE Psycho/Emotional Pain Symptoms : No JELENA HUNTER - 07/15/2011 7:21 LOCKSMITH APPRENTICE Peripheral IV Peripheral IV Assess/Intervention Grid Peripheral IV #1 IV Activity : Start Number of Attempts : 1 Date of Insertion : 07/15/2011 LOCKSMITH APPRENTICE IV Site : Hand Laterality : Left Catheter Size : 18 Catheter Type : Protective Site Condition : No complications Drainage Description : None Infiltration Score : 0 Phlebitis Score : 0 JELENA HUNTER RN - 07/15/2011 7:21 LOCKSMITH APPRENTICE Carlos Sensory Perception Carlos : No impairment Moisture Carlos : Rarely moist Activity Carlos : Walks frequently Mobility Carlos : No limitations Nutrition Carlos : Excellent Friction and Shear Carlos : Potential problem Carlos Score : 22 EILEENJELENA ANTONIO - 07/15/2011 7:21 LOCKSMITH APPRENTICE Hendrich II Fall Risk Confusion/Disorientation Hendrich : [...] 1 JELENA HUNTER RN - 07/15/2011 7:21 LOCKSMITH APPRENTICE DC Needs Anticipated Discharge Date : 07/15/2011 LOCKSMITH APPRENTICE Discharge To, Anticipated : Home independently Home Treatments, Anticipated : None Home Equipment, Anticipated : None Professional Skilled Services, Anticipated : None Special Serv & Comm Res, Anticipated : None Needs Assistance with Transportation : No Needs Assistance at Home Upon Discharge : No JELENA HUNTER RN - 07/15/2011 7:21 LOCKSMITH APPRENTICE FLACC Face FLACC : No particular expression or smile Legs FLACC : Normal position or relaxed Activity FLACC : Lying quietly, normal position, moves easily Cry FLACC : No cry, awake or asleep Consolabillity FLACC : Content, relaxed FLACC Pain Scale Score : 0 JELENA HUNTER RN - 07/15/2011 7:21 LOCKSMITH APPRENTICE Integumentary Integumentary Patient Stated Symptoms : None Skin Turgor : Elastic Skin Integrity : Intact Mucous Membrane Color : [place] Mucous Membrane Description : Moist Skin Color : Normal for ethnicity Skin Description : Dry Skin Temperature : Warm JELENA HUNTER RN - 07/15/2011 7:21 LOCKSMITH APPRENTICE [facility] Document Id: [id number] LOCKSMITH APPRENTICE!9 SMITH APPRENTICE documented in this encounter OR Notes Op Note - Khari Giraldo M.D. - 07/15/2011 12:00 AM CST [id number] Preoperative Diagnosis: Hematuria. Postoperative Diagnosis: Hematuria. Procedure [...] M.D. /vikki CC: Office Of Dr. Giraldo [facility] Electronically Signed By: KHARI GIRALDO MD On: 09/16/2011 08:54 AM Source: [facility] MHSDOLBEYNONRADSYS Document Id: [id number] documented in this encounter Miscellaneous Notes Miscellaneous - Jelena Hunter RShahzad - 07/15/2011 10:00 AM LOCKSMITH APPRENTICE Adult Postprocedure Assessment Adult Postprocedure Assessment Entered On: 07/15/2011 9:23 LOCKSMITH APPRENTICE Performed On: 07/15/2011 10:00 LOCKSMITH APPRENTICE by JELENA HUNTER RN Vital Signs Temperature Core : 36.7C(Converted to: 98.1DegF) Peripheral Pulse Rate : 62/min Respiratory Rate : 16/min Systolic Blood Pressure : 112mmHg Diastolic Blood Pressure : 65mmHg NIBP Mean : 81mmHg SpO2 : 99% Oxygen Saturation Monitoring Frequency : Continuous Oxygen Therapy : Room air JELENA HUNTER RN - 07/15/2011 9:19 LOCKSMITH APPRENTICE General Level of Consciousness : Alert Orientation : Oriented x 3 Skin Color : Normal for ethnicity Skin Description : Dry Skin Temperature : Warm Pain Symptoms : No JELENA HUNTER RN - 07/15/2011 9:19 LOCKSMITH APPRENTICE FLACC Face FLACC : No particular expression or smile Legs FLACC : Normal position or relaxed Activity FLACC : Lying quietly, normal position, moves easily Cry FLACC : No cry, awake or asleep Consolabillity FLACC : Content, relaxed FLACC Pain Scale Score : 0 JELENA HUNTER RN - 07/15/2011 9:19 LOCKSMITH APPRENTICE Cardiovascular Heart Rhythm : Regular JELENA HUNTER 07/15/2011 9:19 LOCKSMITH APPRENTICE Pulses Grid Radial Pulse, Left : 2+ Normal Radial Pulse, Right : 2+ Normal JELENA HUNTER 07/15/2011 9:19 LOCKSMITH APPRENTICE Cardiac Rhythm Techs Ventricular Rate : 62bpm Ventricular Rhythm : Regular JELENA HUNTER 07/15/2011 9:19 LOCKSMITH APPRENTICE Respiratory Anesthesia Type : MAC Airway Type : None Respiratory Pattern : Regular Respirations : Unlabored All Lobes Breath Sounds : Clear JELENA HUNTER 07/15/2011 9:19 LOCKSMITH APPRENTICE GI/ Urinary Elimination : Voiding, no difficulties JELENA HUNTER 07/15/2011 10:21 LOCKSMITH APPRENTICE Nausea Symptoms : No Abdomen Description : Rounded JELENA HUNTER 07/15/2011 9:19 LOCKSMITH APPRENTICE Integumentary Integumentary Patient Stated Symptoms : None Skin Turgor : Elastic Skin Integrity : Intact Mucous Membrane Color : [place] Mucous Membrane Description : Moist Skin Color : Normal for ethnicity Skin Description : Dry Skin Temperature : Warm JELENA HUNTER 07/15/2011 9:19 LOCKSMITH APPRENTICE Incision/Wound Incision/Wound Care Grid Wound Numbering : 0 JELENA HUNTER 07/15/2011 9:19 LOCKSMITH APPRENTICE Peripheral IV Peripheral IV Assess/Intervention Grid Peripheral IV #1 IV Activity : Discontinue Number of Attempts : 1 Date of Insertion : 07/15/2011 LOCKSMITH APPRENTICE IV Site : Hand Laterality : Left Catheter Size : 18 Catheter Type : Protective Infiltration Score : 0 Phlebitis Score : 0 Comments (Comment: IV discontinued with plastic cath intact upon removal, site good [JELENA HUNTER 07/15/2011 9:19 LOCKSMITH APPRENTICE] ) ELSA JELENA Mcgarry 07/15/2011 9:19 LOCKSMITH APPRENTICE I&O Oral Intake : 250mL Other Intake : 200mL (Comment: IV LR in PAR [JELENA HUNTER 07/15/2011 9:19 LOCKSMITH APPRENTICE] ) JELENA HUNTER 07/15/2011 9:19 LOCKSMITH APPRENTICE Nutrition Morning Snack : 100% JELENA HUNTER 07/15/2011 9:19 LOCKSMITH APPRENTICE Neurologic Swallowing Difficulty/Aspiration Risk : None Extremity Movement : Equal Facial Symmetry : Symmetric Characteristics of Speech : Clear JELENA HUNTER 07/15/2011 9:19 LOCKSMITH APPRENTICE Upper Extremity Nail Bed Color Hands Grid Left Hand : [place] Right Hand : [place] JELENA HUNTER 07/15/2011 9:19 LOCKSMITH APPRENTICE Capillary Refill Hand Grid Left Hand : < 2 seconds Right Hand : < 2 seconds JELENA HUNTER 07/15/2011 9:19 LOCKSMITH APPRENTICE Upper Extremity Color Grid Left : [place] Right : [place] JELENA HUNTER 07/15/2011 9:19 LOCKSMITH APPRENTICE Upper Extremity Temperature Grid Left : Warm Right : Warm JELENA HUNTER 07/15/2011 9:19 LOCKSMITH APPRENTICE NV Upper Extremity Pulses Grid Radial Pulse, Left : 2+ Normal Radial Pulse, Right : 2+ Normal JELENA HUNTER 07/15/2011 9:19 LOCKSMITH APPRENTICE PARSAP Activity Status : Moves 4 extremities [...] Score : 19 JELENA HUNTER 07/15/2011 9:19 LOCKSMITH APPRENTICE [place] Duckworth Agitation Sedation Scale (RASS) : Alert and calm RASS Score : 0 JELENA HUNTER 07/15/2011 9:19 LOCKSMITH APPRENTICE Carlos Sensory Perception Carlos : No impairment Moisture Carlos : Rarely moist Activity Carlos : Walks frequently Mobility Carlos : No limitations Nutrition Carlos : Excellent JELENA HUNTER 07/15/2011 9:19 LOCKSMITH APPRENTICE Hendrich II Fall Risk Confusion/Disorientation Hendrich : [...] 2 JELENA HUNTER RN - 07/15/2011 9:19 LOCKSMITH APPRENTICE Education General Patient Education Powergrid Topics : Discharge instructions/Medication list, Plan of care JELENA HUNTER RN - 07/15/2011 9:19 LOCKSMITH APPRENTICE [facility] Document Id: [id number] LOCKSMITH APPRENTICE!3 SMITH APPRENTICE Miscellaneous - Jelena Hunter RShahzad - 07/15/2011 9:02 AM CST Adult Postprocedure Assessment Adult Postprocedure Assessment Entered On: 07/15/2011 9:08 LOCKSMITH APPRENTICE Performed On: 07/15/2011 9:02 LOCKSMITH APPRENTICE by JELENA HUNTER RN Vital Signs Temperature Core : 36.2C(Converted to: 97.2DegF) (LOW) Peripheral Pulse Rate : 55/min (LOW) Respiratory Rate : 16/min Systolic Blood Pressure : 108mmHg Diastolic Blood Pressure : 56mmHg NIBP Mean : 73mmHg SpO2 : 98% Oxygen Saturation Monitoring Frequency : Continuous Oxygen Flow Rate : 3L/min Oxygen Therapy : Nasal Cannula JELENA HUNTER RN - 07/15/2011 9:02 LOCKSMITH APPRENTICE General Level of Consciousness : Drowsy Orientation : Identifies self Skin Color : Normal for ethnicity Skin Description : Dry Skin Temperature : Warm Pain Symptoms : No JELENA HUNTER RN - 07/15/2011 9:02 LOCKSMITH APPRENTICE FLACC Face FLACC : No particular expression or smile Legs FLACC : Normal position or relaxed Activity FLACC : Lying quietly, normal position, moves easily Cry FLACC : No cry, awake or asleep Consolabillity FLACC : Content, relaxed FLACC Pain Scale Score : 0 EILEENJAMAR JELENA A 07/15/2011 9:02 LOCKSMITH APPRENTICE Cardiovascular Heart Rhythm : Regular Nail Bed Color : [place] Edema : None Capillary Refill : Less than 2 seconds JELENA HUNTER 07/15/2011 9:02 LOCKSMITH APPRENTICE Pulses Grid Radial Pulse, Left : 2+ Normal Radial Pulse, Right : 2+ Normal JELENA HUNTER 07/15/2011 9:02 LOCKSMITH APPRENTICE Cardiac Rhythm Techs Ventricular Rate : 55bpm Ventricular Rhythm : Regular JELENA HUNTER 07/15/2011 9:02 LOCKSMITH APPRENTICE Respiratory Anesthesia Type : MAC Airway Type : None Respiratory Pattern : Regular Respirations : Unlabored All Lobes Breath Sounds : Clear JELENA HUNTER 07/15/2011 9:02 LOCKSMITH APPRENTICE GI/ Nausea Symptoms : No JELENA HUNTER 07/15/2011 9:02 LOCKSMITH APPRENTICE Integumentary Integumentary Patient Stated Symptoms : None Skin Turgor : Elastic Skin Integrity : Intact Mucous Membrane Color : [place] Mucous Membrane Description : Moist Skin Color : Normal for ethnicity Skin Description : Dry Skin Temperature : Warm JELENA HUNTER 07/15/2011 9:02 LOCKSMITH APPRENTICE Peripheral IV Peripheral IV Assess/Intervention Grid Peripheral IV #1 IV Activity : Assessment Number of Attempts : 1 Date of Insertion : 07/15/2011 LOCKSMITH APPRENTICE IV Site : Hand Laterality : Left Catheter Size : 18 Catheter Type : Protective Site Condition : No complications Drainage Description : None Infiltration Score : 0 Phlebitis Score : 0 JELENA HUNTER 07/15/2011 9:02 LOCKSMITH APPRENTICE I&O Other Intake : 1,700mL (Comment: IV LR intake i n OR [JELENA HUNTER 07/15/2011 9:02 LOCKSMITH APPRENTICE] ) Emesis : 0mL JELENA HUNTER 07/15/2011 9:02 LOCKSMITH APPRENTICE Neurologic Swallowing Difficulty/Aspiration Risk : None Extremity Movement : Equal Facial Symmetry : Symmetric Characteristics of Speech : Clear JELENA HUNTER 07/15/2011 9:02 LOCKSMITH APPRENTICE Upper Extremity Nail Bed Color Hands Grid Left Hand : [place] Right Hand : [place] JELENA HUNTER 07/15/2011 9:02 LOCKSMITH APPRENTICE Capillary Refill Hand Grid Left Hand : < 2 seconds Right Hand : < 2 seconds JELENA HUNTER 07/15/2011 9:02 LOCKSMITH APPRENTICE Upper Extremity Color Grid Left : [place] Right : [place] JELENA HUNTER 07/15/2011 9:02 LOCKSMITH APPRENTICE Upper Extremity Temperature Grid Left : Warm Right : Warm JELENA HUNTER 07/15/2011 9:02 LOCKSMITH APPRENTICE [place] Upper Extremity Pulses Grid Radial Pulse, Left : 2+ Normal Radial Pulse, Right : 2+ Normal JELENA HUNTER 07/15/2011 9:02 LOCKSMITH APPRENTICE Modified Jessica Activity : Moves 4 extremities voluntarily or on command Respiratory : Able to deep breathe and cough freely Circulation : BP +/- 20% of preprocedural level or not unusually high or low Consciousness : Arouses on calling O2 Saturation : Needs oxygen to maintain > 92% Jessica l Score : 8 JELENA HUNTER 07/15/2011 9:02 LOCKSMITH APPRENTICE [place] Duckworth Agitation Sedation Scale (RASS) : Drowsy RASS Score : -1 JELENA HUNTER 07/15/2011 9:02 LOCKSMITH APPRENTICE Carlos Sensory Perception Carlos : No impairment Moisture Carlos : Rarely moist Activity Carlos : Walks frequently Mobility Carlos : No limitations Nutrition Carlos : Excellent Friction and Shear Carlos : Potential problem Carlos Score : 22 JELENA HUNTER 07/15/2011 9:02 LOCKSMITH APPRENTICE Hendrich II Fall Risk Confusion/Disorientation Hendrich : [...] II : 4 JELENA HUNTER 07/15/2011 9:02 LOCKSMITH APPRENTICE Source: [facility] POWERCHART Document Id: [id number] LOCKSMITH APPRENTICE!120 SMITH APPRENTICE documented in this encounter Plan of Treatment Not on filedocumented as of this encounter Procedures Procedure Name Priority Date/Time Associated Diagnosis Comme nts BACTERIAL CULTURE, Routine 07/15/2011 8:30 AM Res ults for this AEROBIC, URINE LOCKSMITH APPRENTICE procedure are in the results section. documented in this encounter Results Bacterial Culture, Aerobic, Urine (07/15/2011 8:30 AM LOCKSMITH APPRENTICE) [facility] gist Method Time Signature Bacterial POWERCHART Culture, Aerobic, Urine HXPre No growth POWERCHART at 1 day. HXFinal No growth POWERCHART Specimen Anatomical Collection Method Collection Time Receive d Time (Source) Location / / Volume Laterality Urine 07/15/2011 8:30 AM 2 9:32 LOCKSMITH APPRENTICE AM LOCKSMITH APPRENTICE Khari Giraldo M.D. LAB MICROBIOLOGY - GENERAL O RDERABLES Performing Organization Address City/State/ZIP Code Phon e Number POWERCHART documented in this encounter Visit Diagnoses Not on filedocumented in this encounter
--- OUTSIDE RECORDS SUMMARY | 2022-02-22 11:11 | XMS_ITS | Encounter Summary ---
:1960 Author Organization [facility] Address [address] [place] [address] Care Team Providers Name Role Phone Unavailable Primary Care Provider Unavailable Encounter Details Date Type Department Care Team Description 09/03/2012 Hospital Encounter HX [facility] EHW Provider, Historic al Social History Tobacco [...] you attend religious or Patient refused 2021 confucianist services? Do [...] at Date Recorded Male 06/23/2021 7:46 PM LAN ADMINISTRATOR documented as of this encounter Medications at Time of Discharge Medication Sig Dispensed Refills Start Date End Date ASPIRIN ORAL Take 1 tablet by mouth daily. 0 01/1804/13/2021 documented as of this encounter Plan of Treatment Not on filedocumented as of this encounter Visit Diagnoses Not on filedocumented in this encounter
--- OUTSIDE RECORDS SUMMARY | 2022-02-22 11:11 | XMS_ITS | Encounter Summary ---
:1960 Author Organization [facility] Address [address] [place] [address] Care Team Providers Name Role Phone Unavailable Primary Care Provider Unavailable Encounter Details Date Type Department Care Team Description 07/22/2011 Hospital Encounter HX [facility] Stephanie Lopez M.D. [address] [place], [place] [address] (Wo rk) Social History Tobacco Use Types [...] attend oriental orthodox or Patient refused 2021 uatsdin services? Do [...] at Date Recorded Male 06/23/2021 7:46 PM HEADLINER INSTALLER documented as of this encounter Medications at Time of Discharge Medication Sig Dispensed Refills Start Date End Date ASPIRIN ORAL Take 1 tablet by mouth daily. 0 01/1804/13/2021 documented as of this encounter Procedure Notes Janis Pelaez RFarshadN. - 07/22/2011 1:29 PM CST Peripheral IV Peripheral IV Entered On: 07/22/2011 13:30 HEADLINER INSTALLER Performed On: 07/22/2011 13:29 HEADLINER INSTALLER by JANIS PELAEZ RN Peripheral IV Peripheral IV Assess/Intervention Grid Peripheral IV #1 IV Activity : Start Number of Attempts : 1 Date of Insertion : 07/22/2011 HEADLINER INSTALLER IV Site : Antecubital Laterality : Right Catheter Size : 18 Catheter Type : Protective Site Condition : No complications Drainage Description : None Infiltration Score : 0 Phlebitis Score : 0 JANIS PELAEZ RN - 07/22/2011 13:29 HEADLINER INSTALLER Source: [facility] POWERCHART Document Id: [id number] HEADLINER INSTALLER!15 LINER INSTALLER documented in this encounter Plan of Treatment Not on filedocumented as of this encounter Visit Diagnoses Not on filedocumented in this encounter
--- OUTSIDE RECORDS SUMMARY | 2022-02-22 11:11 | XMS_ITS | Encounter Summary ---
:1960 Author Organization [facility] Address [address] [place] [address] Care Team Providers Name Role Phone Unavailable Primary Care Provider Unavailable Encounter Details Date Type Department Care Team Description 04/27/2013 Hospital Encounter HX NO MAPPING Noe Mijares M.D. [address] [place], [place] [phone] (Wo rk) Social History [...] you attend jainism or Patient refused 2021 presybeterian services? 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 - 04/27/2013 1:59 PM CST [id number] HISTORY OF PRESENT ILLNESS Pilo is a [...] and valgus stress. Jerrod's negative. Anterior and counter cutter drawer is negative. He does have a [...] MIJARES MD On: 05/04/2013 09:25 AM Source: [facility] MHSDOLBEYNONRADSYS Document Id: [id number] ARIAL TECHNICIAN documented in this encounter Miscellaneous Notes Miscellaneous - Dk Mijares M.D. - 04/27/2013 4:34 PM CST Ambulatory Patient Summary [address] [place] [address] Visit Information Name: PILO HERNANDEZ [facility] Number: [id number] Current Date: 04/27/2013 16:34:57 Physicians [...] appointment detail needed. Your Goals/Additional instructions: Source: [employer] Document Id: [id number] ARIAL TECHNICIAN Miscellaneous - Dk Mijares M.D. - 04/27/2013 4:34 PM CST Ambulatory Depart Summary [facility] [address] [address] Visit Information Name: PILO HERNANDEZ [facility] Number: [id number] Visit Date: 04/27/2013 16:34:56 Attending [...] in case of emergency. Additional Information: Source: [employer] Document Id: [id number] ARIAL TECHNICIAN Miscellaneous - Roxy Shea R.N. - 04/27/2013 2:04 PM CST Adult Artificial Teeth Inspector Intake/History Adult Artificial Teeth Inspector Intake/History Entered On: 04/27/2013 14:06 ACTUARIAL TECHNICIAN Performed On: 04/27/2013 14:04 ACTUARIAL TECHNICIAN by ROXY SHEA imaging scheduler Chief Complaint : left knee pain, since [...] % ROXY SHEA RN - 04/27/2013 14:04 ACTUARIAL TECHNICIAN General Info Information Given By : Patient Preferred Communication Mode : Verbal Languages : Yoruba ROXY SHEA RN - 04/27/2013 14:04 ACTUARIAL TECHNICIAN Subjective Pain Symptoms : Yes ROXY SHEA RN - 04/27/2013 14:04 ACTUARIAL TECHNICIAN Pain Pain Assessment Grid Pain 1 Location : Knee Laterality : Left ROXY SHEA RN - 04/27/2013 14:04 ACTUARIAL TECHNICIAN Dependent Habits Tobacco Use/Currently Using : No Exposure to Tobacco Smoke : Care provider denies smoking in home Smoking Status : Former smoker ROXY SHEA RN - 04/27/2013 14:04 ACTUARIAL TECHNICIAN Tobacco Use Grid Type : Cigarettes Last Use : 1996 ROXY SHEA RN - 04/27/2013 14:04 ACTUARIAL TECHNICIAN Caffeine Use Grid Caffeine Use : None ROXY SHEA RN - 04/27/2013 14:04 ACTUARIAL TECHNICIAN Recreational Drug Use Grid Drug Use : None ROXY SHEA RN - 04/27/2013 14:04 ACTUARIAL TECHNICIAN Source: [facility] POWERCHART Document Id: [id number] ACTUARIAL TECHNICIAN!37 ARIAL TECHNICIAN documented in this encounter Plan of Treatment Not on filedocumented as of this encounter Visit Diagnoses Not on filedocumented in this encounter
--- OUTSIDE RECORDS SUMMARY | 2022-02-22 11:11 | XMS_ITS | Encounter Summary ---
:1960 Author Organization [facility] Address [address] [place] [address] Care Team Providers Name Role Phone Unavailable Primary Care Provider Unavailable Encounter Details Date Type Department Care Team Description 04/30/2014 Hospital Encounter HX [facility] Mikey Smith III, M.D. [address] [place] [phone] (Wo rk) Social [...] you attend jew or Patient refused 2021 congregational services? Do [...] Recorded Male 06/23/2021 7:46 PM CAR SALES ASSOCIATE documented as of this encounter Last Filed Vital Signs Vital Sign Reading Time Taken Comments Blood Pressure 128/84 04/30/2014 10:12 AM CAR SALES ASSOCIATE Pulse 70 04/30/2014 10:12 AM CAR SALES ASSOCIATE Temperature - - Respiratory Rate 16 04/30/2014 10:12 AM CAR SALES ASSOCIATE Oxygen Saturation - - Inhaled Oxygen Concentration - - Weight - - Height 182 cm (5' 11.65) 04/30/2014 10:12 AM CAR SALES ASSOCIATE Body Mass Index - - documented in this encounter Medications at Time of Discharge Medication Sig Dispensed Refills Start Date End Date ASPIRIN ORAL Take 1 tablet by mouth daily. 0 01/1804/13/2021 documented as of this encounter Progress Notes Kavon Stubbs M.D. - 04/30/2014 9:39 AM CST [id number] CHIEF COMPLAINT/REASON FOR VISIT Evaluation of finger injury. HISTORY OF PRESENT ILLNESS Mr. Whittaker is a 57-year-old gentleman. Mr. Whittaker is here for evaluation of his left index finger. This was injured on 04/29/2014 at [employer] in [place], [place]. He was pushing carts in the [...] sent him with a copy of the [employer] Functional Capacity Evaluation. I will send a copy of that to Occupational Medicine. He did have a non-DOT urine drug screen done today. His questions were answered. Reassurance was given. Kavon Stubbs M.D./ryan Electronically Signed By: KAVON STUBBS III, MD On: 05/01/2014 08:44 AM Source: [facility] MHSDOLBEYNONRADSYS Document Id: [id number] SALES ASSOCIATE documented in this encounter Nursing Notes Ariana Eid L.P.N. - 04/30/2014 10:29 AM CST Dermatology Intake Dermatology Intake Entered On: 04/30/2014 10:30 CAR SALES ASSOCIATE Performed On: 04/30/2014 10:29 CAR SALES ASSOCIATE by ARIANA EID LPN General Date of Last Dermatology Visit : 09/17/2011 CDT ARIANA EID LPN - 04/30/2014 10:29 CAR SALES ASSOCIATE Dermatology Intake History Pain Symptoms : Yes Past Dermatology History : Basal cell carcinoma ARIANA EID [facility] - 04/30/2014 10:29 CAR SALES ASSOCIATE Pain Pain Assessment Grid Location : Finger Intensity : 8 ARIANA EID [facility] - 04/30/2014 10:29 CAR SALES ASSOCIATE Dependent Habits Tobacco Use/Currently Using : No Exposure to Tobacco Smoke : Care provider denies smoking in home Smoking Status : Former smoker ARIANA EID [facility] - 04/30/2014 10:29 CAR SALES ASSOCIATE Tobacco Use Grid Type : Cigarettes Last Use : 1996 ARIANA EID Stoney [facility] - 04/30/2014 10:29 CAR SALES ASSOCIATE Caffeine Use Grid Caffeine Use : None ARIANA EID Stoney IMPLEMENTATION LEAD - 04/30/2014 10:29 CAR SALES ASSOCIATE Recreational Drug Use Grid Drug Use : None ARIANA EID Stoney IMPLEMENTATION LEAD - 04/30/2014 10:29 CAR SALES ASSOCIATE Preprocedural Pause Correct Patient Identity : Patient verbalizes self Correct Procedure Site and Side : subunguinal hematoma on left index finger release. Correct Procedure Site/Side Verified By : Patient/responsible green party Site Marking : Yes Pre-Procedure Pause Verbal Confirm. of : Procedure, Site, Side, Patient Position, Patient ID Preprocedural Pause : 10:30 CAR SALES ASSOCIATE Start Time : 10:30 CAR SALES ASSOCIATE JUANITOARIANA MCMILLAN Stoney [facility] - 04/30/2014 10:29 CAR SALES ASSOCIATE [facility] Document Id: [id number] CAR SALES ASSOCIATE!33 SALES ASSOCIATE documented in this encounter Miscellaneous Notes Miscellaneous - Alyssa Morris - 08/28/2016 2:14 PM CDT Health Maintenance Reminder August 28, 2016 HUSSEIN WHITTAKER [address] [place] [phone] Dear HUSSEIN WHITTAKER, We have developed a [...] visit with us more convenient. Please call [phone] to schedule services that are past due or that may shortly become due (thank you if you have already done so). We will follow up in six months should you have more services to schedule at that time. If you have already received any of the listed past due or upcoming services outside of [facility], please call [phone] to add them to your medical record. You may want to consider contacting your health insurance company to make sure these services are covered and find out if there will be any two-lt-yvonzi expense. If you have any questions about the services listed above, or if you are no longer receiving care from [facility], please contact us at [phone]. Thank you for partnering to provide you with the best care possible. We encourage you to set up your Patient Online Services account [email or web address], where you can communicate in a convenient way with us, schedule appointments, receive lab results and more. To set up your account, you will need your [facility] Number, which is [id number]. Thank you for choosing us, Soren Shea R.N. and the [place] [facility], for your health care needs! Sincerely, ALYSSA MORRIS Electronic Signature Electronically Signed By: ALYSSA MORRIS On: August 28, 2016 This document has images extracted. Source: [facility] POWERCHART Document Id: [id number] SALES ASSOCIATE Telephone Encounter - Conversion, Historical Provider Ser [...] 2015 08:04:34 CDT From: ARIANA EID LPN ([facility] Nurse Cespedes) To: SOREN SHEA NP; Sent: 10/25/2015 08:04:34 CDT Subject: Med Management noted pt will need appt before any further refills. On hold pending signature Order:omeprazole (omeprazole 40 mg oral delayed release capsule) 1 cap(s) PO Daily Pt needs to establish before next refill Qty: 30 cap(s) Refills: 0 Substitutions Allowed Route To Pharmacy - [facility] From: WU SEGURA ([facility]) To: [facility] Nurse Cespedes; Sent: 10/24/2015 16:32:37 CDT Subject: *Phone Message Caller is: ( X) Patient ( ) Mother ( ) Father ( ) Spouse ( ) Daughter ( ) Son ( ) Pharmacy ( ) Other: Physician: Shabbir Patient MRN #: Reason for Call: Renew RX Message: Patient called he needs a RX for his indegestion( antacid) route to [facility] Advice/Action: Source used: ( ) [...] back cell phone number ( ) Source: [facility] POWERCHART Document Id: [id number] Miscellaneous - Conversion, Historical Provider Ser - [...] 0 Substitutions Allowed Route To Pharmacy - [facility] Signed by CARLO CAREY MD 10/17/2014 13:27:27 Addendum by ML WEBB V on 03 Oct 2014 10:35:41 CDT Per Hannah-Pt advised to schedule F/U visit.He declined From: ML WEBB V To: CARLO ACREY MD; ML WEBB V; Sent: 09/26/2014 15:42:42 CDT Subject: Med Management On hold pending signature Order:fluticasone topical (Cutivate 0.05% topical lotion) 1 matteo Topical Daily to seborrhoeic dermatitis of face PRN. Qty: 60 mL Refills: 3 Substitutions Allowed Route To Pharmacy - [facility] Last ordered filled @ 09/18/13 [facility] Document Id: [id number] Miscellaneous - Alonso Sahni, C.N.A. - 05/04/2014 4:07 PM CST Functional Capacities Eval. From: ALONSO STARK To: ALONSO STARK; Sent: 05/04/2014 16:07:02 CAR SALES ASSOCIATE Subject: Functional Capacities Eval. Faxed to [facility]. Source: [facility] POWERCHART Document Id: [id number] Electronically signed by Conversion, [facility] Hypercil Core Transformer Assembler [id number] at 10/15/2016 8:22 PM CDT Miscellaneous - Ariana Eid L.P.N. - 04/30/2014 10:12 AM CST Adult Trail Construction Worker Intake/History Adult Trail Construction Worker Intake/History Entered On: 04/30/2014 10:14 CAR SALES ASSOCIATE Performed On: 04/30/2014 10:12 CAR SALES ASSOCIATE by ARIANA EID LPN Intake Chief Complaint [...] inch(es)) ARIANA EID LPN - 04/30/2014 10:12 CAR SALES ASSOCIATE General Info Information Given By : Patient Languages : Azeri Is Patient Female and 13-50 no hysterectomy : No ARIANA EID LPN - 04/30/2014 10:12 CAR SALES ASSOCIATE Subjective Pain Symptoms : Yes ARIANA EID LPN - 04/30/2014 10:12 CAR SALES ASSOCIATE Pain Pain Assessment Grid Pain 1 Location : Finger Laterality : Left Intensity : 8 ARIANA EID LPN - 04/30/2014 10:12 CAR SALES ASSOCIATE Dependent Habits Tobacco Use/Currently Using : No Exposure to Tobacco Smoke : Care provider denies smoking in home Smoking Status : Former smoker ARIANA EID LPN - 04/30/2014 10:12 CAR SALES ASSOCIATE Tobacco Use Grid Type : Cigarettes Last Use : 1996 ARIANA EID LPN - 04/30/2014 10:12 CAR SALES ASSOCIATE Caffeine Use Grid Caffeine Use : None ARIANA EID LPN - 04/30/2014 10:12 CAR SALES ASSOCIATE Recreational Drug Use Grid Drug Use : None ARIANA EID LPN - 04/30/2014 10:12 CAR SALES ASSOCIATE ID Screen Drug Resistant Organism : No Travel Within Last 21 Days : No ARIANA EID LPN - 04/30/2014 10:12 CAR SALES ASSOCIATE Source: [facility] [employer]CHART Document Id: [id number] CAR SALES ASSOCIATE!41 SALES ASSOCIATE Miscellaneous - Ariana Eid L.PShahzad - 04/30/2014 10:11 AM CST Health Assessment Health Assessment Entered On: 04/30/2014 10:12 CAR SALES ASSOCIATE Performed On: 04/30/2014 10:11 CAR SALES ASSOCIATE by ARIANA EID LPN Health Assessment Complete Health Assessment Complete or Modified : Annual Health Assessment Annual Health Assessment Completed : Yes ARIANA EID LPN - 04/30/2014 10:11 CAR SALES ASSOCIATE Nutrition Nutrition Risk Factors by History Adult : None ARIANA EID LPN - 04/30/2014 10:11 CAR SALES ASSOCIATE Functional Current Daily Living Assistance : None ARIANA EID LPN - 04/30/2014 10:11 CAR SALES ASSOCIATE Dependent Habits Tobacco Use/Currently Using : No Exposure to Tobacco Smoke : Care provider denies smoking in home Smoking Status : Former smoker ARIANA EID LPN - 04/30/2014 10:11 CAR SALES ASSOCIATE Tobacco Use Grid Type : Cigarettes Last Use : 1996 ARIANA EID LPN - 04/30/2014 10:11 CAR SALES ASSOCIATE Caffeine Use Grid Caffeine Use : None ARIANA EID LPN - 04/30/2014 10:11 CAR SALES ASSOCIATE Recreational Drug Use Grid Drug Use : None ARIANA EID LPN - 04/30/2014 10:11 CAR SALES ASSOCIATE Psychosocial Domestic Abuse Concerns : None Church Preference : No qualifying data available. ARIANA EID LPN - 04/30/2014 10:11 CAR SALES ASSOCIATE Advance Directive Advanced Directives : No Advance Directive Additional Information : No ARIANA EID LPN - 04/30/2014 10:11 CAR SALES ASSOCIATE Educ Needs Learning Style Preference Adult Grid Patient : Demonstration, Printed materials Family : ARIANA Guzman LPN - 04/30/2014 10:11 CAR SALES ASSOCIATE Source: [facility] [employer] Document Id: [id number] CAR SALES ASSOCIATE!32 SALES ASSOCIATE documented in this encounter Plan of Treatment Not on filedocumented as of this encounter Procedures Procedure Name Priority Date/Time Associated Diagnosis Comme nts DRUG SCREEN URINE Routine 04/30/2014 11:30 AM Res ults for this CAR SALES ASSOCIATE procedure are i n the results section. documented in this encounter Results Drug Screen Urine (04/30/2014 11:30 AM CAR SALES ASSOCIATE) [facility] Method Time Signature HXU [...] / Volume Laterality Urine 04/30/2014 11:30 AM CAR SALES ASSOCIATE Kavon Stubbs III, M.D. LAB URINE ORDERABLES Performing Organization Address City/State/ZIP Code Phon e Number POWERCHART documented in this encounter Visit Diagnoses Not on filedocumented in this encounter
--- OUTSIDE RECORDS SUMMARY | 2022-02-22 11:11 | XMS_ITS | Encounter Summary ---
:1960 Author Organization [facility] Address [address] [place] [address] Care Team Providers Name Role Phone Unavailable Primary Care Provider Unavailable Encounter Details Date Type Department Care Team Description 09/03/2012 Hospital Encounter HX NO MAPPING Luis Zuniga M.D. [address] [place], [place] [phone] (Wo rk) Social [...] you attend presybeterian or Patient refused 2021 temple services? 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 0 01/1804/13/2021 documented as of this encounter Plan of Treatment Not on filedocumented as of this encounter Visit Diagnoses Not on filedocumented in this encounter
--- OUTSIDE RECORDS SUMMARY | 2022-02-22 11:11 | XMS_ITS | Encounter Summary ---
:1960 Author Organization [facility] Address [address] [place] [address] Care Team Providers Name Role Phone Unavailable Primary Care Provider Unavailable Encounter Details Date Type Department Care Team Description 06/27/2011 Hospital Encounter HX [facility] Mir Briceño, ANA, C.N.P., D. N.P. [address] [place] [address] (Wo rk) Social History Tobacco [...] you attend faith or Patient refused 2021 sabianism services? Do [...] at Date Recorded Male 06/23/2021 7:46 PM TONGER documented as of this encounter Medications at Time of Discharge Medication Sig Dispensed Refills Start Date End Date ASPIRIN ORAL Take 1 tablet by mouth daily. 0 01/1804/13/2021 documented as of this encounter Progress Notes Mir Briceño D.N.P., C.N.P. - 07/01/2011 12:00 AM CST Addendum Document Contains Addenda Modification to date of visit by Joan Reece, fire patrol. CHIEF COMPLAINT/REASON FOR VISIT 1. Routine physical [...] x 3. HEAD: Normocephalic/atraumatic. PUPILS: [place]. OROPHARYNX: [place] and moist. TMs: Bilateral TMs are clear, [...] patient. Presently he is to hold all vsvh-gln-hnohady medication prior to procedure as recommended. Presently, [...] D.N.P., F.N.P. /gretta Electronically Signed By: MIR RBICEÑO DNP, FNP On: 07/08/2011 07:49 AM Mir Briceño D.N.P., F.N.P. /terrance Electronically Signed By: MIR BRICEÑO DNP, FNP On: 07/08/2011 07:49 AM Co-Signed By: MIR BRICEÑO DNP, FNP On: 07/08/2011 04:20 PM Source: [facility] JOSE Document Id: [id number] ER documented in this encounter Miscellaneous Notes Miscellaneous - Mir Briceño D.N.P., C.N.P. - 07/01/2011 8:20 PM TONGER Ambulatory Patient Summary [facility] [address] [place] [address] Visit Information Name: HUSSEIN HERNANDEZ Current Date: 07/01/2011 20:20:44 Primary Care Provider: MIR BRICEÑO DNP, MUD TANK OPERATOR Your Medications Here is a list of [...] Date Time Location Reason Provider 07/15/2011 08:00 [facility] Surgery OP OP/DS cystoscopy/retrogrades Your Goals/Additional instructions: Source: [facility] POWERCHART Document Id: [id number] ER Miscellaneous - Mir Briceño D.N.P., C.N.P. - 07/01/2011 8:20 PM TONGER Ambulatory Depart Summary [address] [address] Visit Information Name: HUSSEIN HERNANDEZ Current Date: [...] to the patient and/or family, guardian/caregiver. Source: [facility] [employer]CHART Document Id: [id number] ER Miscellaneous - Conversion, Historical Provider Ser - 07/01/2011 5:24 PM TONGER Health Assessment Health Assessment Entered On: 07/01/2011 17:25 TONGER Performed On: 07/01/2011 17:24 TONGER by DEBRA BARCENAS LPN Health Assessment Complete Health Assessment Complete or Modified : Annual Health Assessment Annual Health Assessment Completed : Yes DEBRA BARCENAS LPN - 07/01/2011 17:24 TONGER Nutrition Nutrition Risk Factors by History Adult : None DEBRA BARCENAS LPN - 07/01/2011 17:24 TONGER Functional Current Daily Living Assistance : None DEBRA BARCENAS LPN - 07/01/2011 17:24 TONGER Dependent Habits Tobacco Use/Currently Using : No Exposure to Tobacco Smoke : Care provider denies smoking in home Smoking Status : Never smoker DEBRA BARCENAS LPN - 07/01/2011 17:24 TONGER Tobacco Use Grid Type : Cigarettes Last Use : 1996 DEBRA BARCENAS LPN - 07/01/2011 17:24 TONGER Caffeine Use Grid Caffeine Use : None DEBRA BARCENAS LPN - 07/01/2011 17:24 TONGER Recreational Drug Use Grid Drug Use : None DEBRA BARCENAS LPN - 07/01/2011 17:24 TONGER Psychosocial Domestic Abuse Concerns : None DEBRA BARCENAS LPN - 07/01/2011 17:24 TONGER Advance Directive Advanced Directives : Yes DEBRA BARCENAS LPN - 07/01/2011 17:24 TONGER Educ Needs Learning Style Preference Adult Grid Patient : Printed materials Family : Printed materials DEBRA BARCENAS LPN - 07/01/2011 17:24 TONGER Source: [facility] POWERCHART Document Id: [id number] TONGER!30 Miscellaneous - Conversion, Historical Provider Ser - 07/01/2011 5:23 PM TONGER Obstructive Sleep Apnea Obstructive Sleep Apnea Entered On: 07/01/2011 17:24 TONGER Performed On: 07/01/2011 17:23 TONGER by DEBRA BARCENAS LPN BALDO Screening Known Obstructive Sleep Apnea : No DEBRA BARCENAS LPN - 07/01/2011 17:23 TONGER BALDO Assessment Do you have high blood pressure or have you been told to take medication for high blood pressure? 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 Farmworkers Intake/History Entered On: 07/01/2011 17:21 TONGER Performed On: 07/01/2011 17:19 TONGER by DEBRA BARCENAS LPN Intake Chief Complaint : preop-exploration/[id number] [place] Temperature Core : 36.8C(Converted to: 98.2DegF) Peripheral Pulse Rate : 72/min Respiratory Rate : 16/min Systolic Blood Pressure : 136mmHg Diastolic Blood Pressure : 82mmHg NIBP Mean : 100mmHg Height : 184cm(Converted to: 6ft 0inch(es), 72.44inch(es)) Actual Weight : 112.4kg(Converted to: 247lb 13oz) Dosing Weight Clinic : 112.40kg Clinic BSA : 2.40 Body Mass Index : 33.20kg/m2 DEBRA BARCENAS LPN - 07/01/2011 17:19 TONGER Subjective Pain Symptoms : No DEBRA BARCENAS LPN - 07/01/2011 17:19 TONGER Dependent Habits Tobacco Use/Currently Using : No Exposure to Tobacco Smoke : Care provider denies smoking in home Smoking Status : Former smoker DEBRA BARCENAS LPN - 07/01/2011 17:19 TONGER Tobacco Use Grid Type : Cigarettes Last Use : 1996 DEBRA BARCENAS LPN - 07/01/2011 17:19 TONGER Caffeine Use Grid Caffeine Use : None DEBRA BARCENAS LPN - 07/01/2011 17:19 TONGER Recreational Drug Use Grid Drug Use : None DEBRA BARCENAS LPN - 07/01/2011 17:19 TONGER Allergy Allergies (Active) Nyquil Cold Medicine Estimated Onset Date: Unspecified ; Created By: PRAVEEN KAUFFMAN; Reaction Status:Active ; Category: Drug ; Substance: Nyquil Cold Medicine ; Type: Allergy ; Updated By: PRAVEEN KAUFFMAN; Reviewed Date: 03/05/2011 10:07 CDT Source: [facility] [employer] Document Id: [id number] TONGER!30 documented in this encounter Plan of Treatment Not on filedocumented as of this encounter Visit Diagnoses Not on filedocumented in this encounter
--- OUTSIDE RECORDS SUMMARY | 2022-02-22 11:11 | XMS_ITS | Encounter Summary ---
:1960 Author Organization [facility] Address [address] [place] [address] Care Team Providers Name Role Phone Unavailable Primary Care Provider Unavailable Encounter Details Date Type Department Care Team Description 07/20/2013 Hospital Encounter HX [facility] SURGERY Last Mijares M.D. [address] [place] [address] (Wo rk) Social History Tobacco [...] attend oriental orthodox or Patient refused 2021 mu-ism services? Do [...] at Date Recorded Male 06/23/2021 7:46 PM SLAG EXPANDER documented as of this encounter Last Filed Vital Signs Vital Sign Reading Time Taken Comments Blood Pressure 147/89 07/20/2013 1:58 PM SLAG EXPANDER Pulse 60 07/20/2013 1:58 PM SLAG EXPANDER Temperature - - Respiratory Rate 14 07/20/2013 1:58 PM SLAG EXPANDER Oxygen Saturation - - Inhaled Oxygen Concentration - - Weight - - Height 182 cm (5' 11.65) 07/20/2013 1:58 PM SLAG EXPANDER Body Mass Index - - documented in this encounter Discharge Summaries Dk Mijares M.D. - 07/20/2013 5:00 PM CST Hospital Discharge Instructions [address] [address] Patient Discharge Instructions Name: HUSSEIN WHITTAKER Current Date: 07/20/2013 17:00:48 : 1960 12:00 AM [facility] Number: [id number] Patient Address: [address] [place] [phone] Patient Primary Care Provider: Name: HARVINDER STUBBS III, MD Discharge Diagnosis: [facility] in [place] would like to thank you for allowing us to assist you withyour healthcare needs. The following includes patient education materials and information regarding your injury/illness. Comment: HUSSEIN WHITTAKER has been given the following list of follow-up instructions, medication list,and patient education materials: Follow-up Instructions With: Address: When: MATT TONG [address] [place] [id number] Business (1) 08/06/2013 09:30:00 Comments: Medications Medication/Strength Dose Route Frequency Indications/Special Instructions/Comments/Notes HYDROcodone-acetaminophen (Hardy 5 mg-325 mg oral tablet) 2 tab(s) [...] Date Time Care Provider Signature Date Time 22229 After Knee Arthroscopy: Recovering from Surgery Your [...] waves to help heal injured tissue. ?? [facility] [place] [address]. All rights reserved. This information is not intended as a substitute for professional medical care. Always follow your healthcare professional's instructions. [address]16 After Knee Arthroscopy After surgery, your joint [...] Increasing pain in your calf muscle ?? [address] [address]. All rights reserved. This information is not intended as a substitute for professional medical care. Always follow your healthcare professional's instructions. [address] Discharge Instructions HOME CARE FOLLOWING KNEE ARTHROSCOPY [...] concern you, please call my office at [phone]. DISCHARGE INSTRUCTIONS: For 48 hours after receiving [...] OR CALL THE PATIENT ADVISORY NURSE AT [phone] OR EMERGENCY ROOM AT [phone], ext: [phone]. ext: surgical services [phone], med-surge [phone] Physician: [...] service we provide. Thank you for choosing [facility]. It was a pleasure to serve you. This document has images extracted. Please consider using [employer] for all your patient education needs. Source: [employer] Document Id: [id number] EXPANDER Dk Mijares M.D. - 07/20/2013 5:00 PM CST Hospital Discharge Medication List [address] [address] Discharge Medication List Name: HUSSEIN WHITTAEKR Current Date: 07/20/2013 17:00:47 : 1960 12:00 AM [facility] Number: [id number] Patient Address: [address] [place] [id number] Patient Primary Care Provider: Name: HARVINDER STUBBS III, MD Discharge Diagnosis: [facility] in [place] would like to thank you for allowing us to assist you withyour healthcare needs. The following includes patient education materials and information regarding your injury/illness. Medications Medication/Strength Dose Route Frequency Indications/Special Instructions/Comments/Notes HYDROcodone-acetaminophen (Hardy 5 mg-325 mg oral tablet) 2 tab(s) [...] DK MIJARES MD Signed On:20-JUL-2013 17:00:45 Source: [employer] Document Id: [id number] EXPANDER documented in this encounter Medications at Time of Discharge Medication Sig Dispensed Refills Start Date End Date ASPIRIN ORAL Take 1 tablet by mouth daily. 0 01/1804/13/2021 documented as of this encounter Procedure Notes Jelena Vance R.N. - 07/20/2013 10:46 AM CST Preprocedure Checklist Document Has Been Updated Preprocedure Checklist Entered On: 07/20/2013 10:54 SLAG EXPANDER Performed On: 07/20/2013 10:46 SLAG EXPANDER by JELENA VANCE RN Checklist Last Fluid Intake : 07/19/2013 22:00 SLAG EXPANDER Last Food Intake : 07/19/2013 22:00 SLAG EXPANDER JELENA VANCE RN - 07/20/2013 10:46 SLAG EXPANDER Surgery Prep Grid Contacts/Glasses Removed : NA Dentures Removed : NA Hairpins/Hairpiecies Removed : NA Hearing Aid Removed : NA Home Prep Complete : NA Jewelry/Piercing Removed : NA Makeup/Nail Mongolian Removed : NA Oral Hygiene : NA Preop Scrub AM of Surgery : Yes Preop Scrub Night Prior to Surgery : Yes Prosthesis Removed : NA Surgical Prep Verified : Yes Tampon Removed : NA Wearing Patient Gown : Yes Voided technical publications manager to procedure : Yes JELENA VANCE RN - 07/20/2013 10:46 SLAG EXPANDER Surgical Preparation : N/A JELENA VANCE RN - 07/20/2013 10:46 SLAG EXPANDER Patient Rights Grid Blood Consent Signed : NA Surgical/Procedure Consent Signed : Yes JELENA VANCE RN - 07/20/2013 10:46 SLAG EXPANDER Family Location : [place] technical publications manager JELENA VANCE RN - 07/20/2013 10:46 SLAG EXPANDER Checklist II Patient Safety Grid Allergy Band [...] NA JELENA VANCE RN - 07/20/2013 10:46 SLAG EXPANDER RN Who Verified Site : JELENA VANCE RN Physician Who Verified Site : DK MIJARES MD, GWYNNE A RN - 07/20/2013 10:46 SLAG EXPANDER BALDO Screening Known Obstructive Sleep Apnea : No - NOT diagnosed with BALDO JELENA VANCE RN - 07/20/2013 10:46 SLAG EXPANDER BALDO Assessment Do you have high blood [...] 10 JELENA VANCE RN - 07/20/2013 10:46 SLAG EXPANDER Valuables/Belongings Valuables/Belongings Grid Valuables at Bedside Clothes, Patient Valuables : Jacket, Pants, Shirt, Shoes JELENA VANCE RN - 07/20/2013 10:46 SLAG EXPANDER Room Orientation/Facility Policy Reviewed : Yes Home Medication Disposition : None brought in with patient JELENA VANCE RN - 07/20/2013 10:46 SLAG EXPANDER Education Preprocedure Education Grid Procedure Type : left knee arthroscopy Education Topics : Anesthesia/Sedation, Plan of care Individuals Taught : Patient Barriers to Learning : None evident Teaching Method : Explanation Teaching Evaluation : Verbalizes understanding JELENA VANCE RN - 07/20/2013 10:46 SLAG EXPANDER Preop Holding Mode of Arrival : Ambulatory Preoperative Orders Complete : Yes JELENA VANCE RN - 07/20/2013 10:46 SLAG EXPANDER Advance Directive Advanced Directives : No JELENA VANCE RN - 07/20/2013 10:46 SLAG EXPANDER Vital Signs Temperature Core : 37 DegC(Converted [...] lb JELENA VANCE RN - 07/20/2013 10:46 SLAG EXPANDER Allergy (As Of: 07/20/2013 10:54:49 SLAG EXPANDER) Allergies (Active) Nyquil Cold Medicine Estimated Onset Date: Unspecified ; Created By: PRAVEEN KAUFFMAN; Reaction Status:Active ; Category: Drug ; Substance: Nyquil Cold Medicine ; Type: Allergy ; Updated By: PRAVEEN KAUFFMAN; Reviewed Date: 06/18/2013 9:05 SLAG EXPANDER Preprocedural Pause Correct Patient Identity : Patient verbalizes self, Patient wristband ID, Patient verbalizes Correct Procedure Site and Side : left knee arthroscopy with partial medial meniscectomy Correct Procedure Site/Side Verified By : Patient/responsible alliance party, Nurse, MD Site Marking : Yes Pre-Procedure Pause Verbal Confirm. of : Procedure, Site, Side, Patient Position, Patient ID JELENA VANCE RN - 07/20/2013 10:46 SLAG EXPANDER Source: [facility] [employer] Document Id: [id number] SLAG EXPANDER!95 EXPANDER documented in this encounter Nursing Notes Jelena Vance R.N. - 07/20/2013 10:56 AM CST Influenza Immunization Asmt Influenza Immunization Asmt Entered On: 07/20/2013 10:56 SLAG EXPANDER Performed On: 07/20/2013 10:56 SLAG EXPANDER by JELENA VANCE RN Influenza Protocol Influenza Vaccine Exclusions : Previously immunized this flu season JELENA VANCE RN - 07/20/2013 10:56 SLAG EXPANDER Source: [facility] [employer]OWERCHART Document Id: [id number] SLAG EXPANDER!3 EXPANDER Jelena Vance R.N. - 07/20/2013 10:56 AM CST Pneumonia Immunization Assessment Pneumonia Immunization Assessment Entered On: 07/20/2013 10:57 SLAG EXPANDER Performed On: 07/20/2013 10:56 SLAG EXPANDER by JELENA VANCE RN Pneumonia Protocol Pneumococcal Vaccine Exclusions : Patient has none of the below exclusions Pneumococcal Vaccine Age Group : Age 5 to 64 Pneumococcal Criteria 5 to 64 : Patient has none of the below criteria, vaccine is not indicated Pneumococcal Vaccine Candidate : No - Patient does not meet the criteria JELENA VANCE RN - 07/20/2013 10:56 SLAG EXPANDER Source: [facility] [employer] Document Id: [id number] SLAG EXPANDER!6 EXPANDER Jelena Vance R.N. - 07/20/2013 10:30 AM CST Day Surgery Admission History/Asmt Adult Document Has Been Updated Day Surgery Admission History/Asmt Adult Entered On: 07/20/2013 10:45 SLAG EXPANDER Performed On: 07/20/2013 10:30 SLAG EXPANDER by JELENA VANCE RN General Info Preferred Name : Ray Admitted From : Non-Health Care Facility Point of Origin Mode of Arrival : Ambulatory Accompanied By : Alone Chief Complaint : left knee scope Preferred Communication Mode : Verbal Information Given By : Patient Languages : Liberian Have you received chemotherapy in last 48 hours? : No JELENA VANCE RN - 07/20/2013 10:30 SLAG EXPANDER Allergy (As Of: 07/20/2013 10:45:58 SLAG EXPANDER) Allergies (Active) Nyquil Cold Medicine Estimated Onset Date: Unspecified ; Created By: JAMARI, PRAVEEN M; Reaction Status:Active ; Category: Drug ; Substance: Nyquil Cold Medicine ; Type: Allergy ; Updated By: PRAVEEN KAUFFMAN; Reviewed Date: 06/18/2013 9:05 SLAG EXPANDER Anesth/Transfusion Anesthesia/Transfusions : Prior anesthesia JELENA VANCE RN - 07/20/2013 10:30 SLAG EXPANDER ID Screen Drug Resistant Organism : No JELENA VANCE RN - 07/20/2013 10:30 SLAG EXPANDER Nutrition Nutrition Risk Factors by History Adult : None Home Diet : Regular Feeding Ability : Complete independence Eating Difficulties : None Appetite : Excellent JELENA VANCE RN - 07/20/2013 10:30 SLAG EXPANDER Home Environment Current Daily Living Assistance : None Living Situation : Home independently Home Equipment : None Sensory Deficits : None Mobility Assistance Prior to Admission : Independent Current Home Treatments : None Professional Skilled Services : None Special Services and Community Resources : None JELENA VANCE RN - 07/20/2013 10:30 SLAG EXPANDER Dependent Habits Tobacco Use/Currently Using : No Exposure to Tobacco Smoke : Care provider denies smoking in home Smoking Status : Former smoker JELENA VANCE RN - 07/20/2013 10:30 SLAG EXPANDER Tobacco Use Grid Type : Cigarettes Last Use : 1996 JELENA VANCE RN - 07/20/2013 10:30 SLAG EXPANDER Caffeine Use Grid Caffeine Use : None JELENA VANCE RN - 07/20/2013 10:30 SLAG EXPANDER Recreational Drug Use Grid Drug Use : None JELENA VANCE RN - 07/20/2013 10:30 SLAG EXPANDER Psychosocial Adult Domestic Abuse Concerns : None Scientologist Preference : No qualifying data available. JELENA VANCE RN - 07/20/2013 10:30 SLAG EXPANDER Advance Directive Advanced Directives : No JELENA VANCE RN - 07/20/2013 10:30 SLAG EXPANDER Educ Needs Patient/Family Education Needs : Plan of care JELENA VANCE RN - 07/20/2013 10:30 SLAG EXPANDER Learning Style Preference Adult Grid Patient : Verbal explanation Family : None JELENA VANCE RN - 07/20/2013 10:30 SLAG EXPANDER Education Preprocedure Education Grid Procedure Type : left knee arthroscopy with partial medial meniscectomy Education Topics : Anesthesia/Sedation, Plan of care Individuals Taught : Patient Barriers to Learning : None evident Teaching Method : Explanation Teaching Evaluation : Verbalizes understanding JELENA VANCE RN - 07/20/2013 10:30 SLAG EXPANDER Outpatient Assessment Procedural Respiratory : Respirations unlabored, [...] distress JELENA VANCE RN - 07/20/2013 10:30 SLAG EXPANDER Psycho/Emotional Pain Symptoms : No Affect/Behavior : Calm, Cooperative, Appropriate JELENA VANCE RN - 07/20/2013 10:30 SLAG EXPANDER Peripheral IV Peripheral IV Assess/Intervention Grid Peripheral IV #1 IV Activity : Start Number of Attempts : 1 Date of Insertion : 07/20/2013 SLAG EXPANDER IV Site : Hand Laterality : Left Catheter Size : 20 Catheter Type : Protective Site Condition : No complications Drainage Description : None Infiltration Score : 0 Phlebitis Score : 0 Flow/ Patency : No complications JELENA VANCE RN - 07/20/2013 10:30 SLAG EXPANDER Carlos Sensory Perception Carlos : No impairment Moisture Carlos : Rarely moist Activity Carlos : Walks frequently Mobility Carlos : No limitations Nutrition Carlos : Excellent Friction and Shear Carlos : Potential problem Carlos Score : 22 JELENA VANCE RN - 07/20/2013 10:30 SLAG EXPANDER Hendrich II Fall Risk Confusion/Disorientation Hendrich : [...] 2 JELENA VANCE RN - 07/20/2013 10:30 SLAG EXPANDER DC Needs Anticipated Discharge Date : 07/20/2013 SLAG EXPANDER Discharge To, Anticipated : Home with family halfway Treatments, Anticipated : None Home Equipment, Anticipated : None Professional Skilled Services, Anticipated : None Special Serv & Comm Res, Anticipated : None Needs Assistance with Transportation : No Needs Assistance at Home Upon Discharge : No JELENA VANCE RN - 07/20/2013 10:30 SLAG EXPANDER FLACC Face FLACC : No particular expression or smile Legs FLACC : Normal position or relaxed Activity FLACC : Lying quietly, normal position, moves easily Cry FLACC : No cry, awake or asleep Consolabillity FLACC : Content, relaxed FLACC Pain Scale Score : 0 JELENA VANCE RN - 07/20/2013 10:30 SLAG EXPANDER Urinary Catheter Urinary Catheter Activity Type : Other: none JELENA VANCE RN - 07/20/2013 10:30 SLAG EXPANDER Integumentary Integumentary Patient Stated Symptoms : None Skin Turgor : Elastic Skin Integrity : Intact Mucous Membrane Color : Mabie Mucous Membrane Description : Moist Skin Color : Normal for ethnicity Skin Description : Dry Skin Temperature : Warm JELENA VANCE RN - 07/20/2013 10:30 SLAG EXPANDER Source: [employer] Document Id: [id number] SLAG EXPANDER!135 EXPANDER documented in this encounter OR Notes Op Note - Dk Mijares M.D. - 07/20/2013 12:00 AM CST [id number] PREOPERATIVE DIAGNOSIS: Left knee medial meniscus tear [...] MIJARES MD On: 07/20/2013 01:19 PM Source: [facility] [employer] Document Id: [id number] EXPANDER documented in this encounter Miscellaneous Notes Miscellaneous - Huseyin Daily, RFarshadN. - 07/20/2013 1:58 PM CST Adult Postprocedure Assessment Adult Postprocedure Assessment Entered On: 07/20/2013 13:58 SLAG EXPANDER Performed On: 07/20/2013 13:58 SLAG EXPANDER by HUSEYIN DAILY RN Vital Signs Temperature [...] inch(es)) HUSEYIN DAILY RN - 07/20/2013 13:49 SLAG EXPANDER General Level of Consciousness : Alert Orientation : Oriented x 3 Skin Color : Normal for ethnicity Skin Description : Dry Skin Temperature : Warm Pain Symptoms : No HUSEYIN DAILY RN - 07/20/2013 13:49 SLAG EXPANDER FLACC Face FLACC : No particular expression or smile Legs FLACC : Normal position or relaxed Activity FLACC : Lying quietly, normal position, moves easily Cry FLACC : No cry, awake or asleep Consolabillity FLACC : Content, relaxed FLACC Pain Scale Score : 0 HUSEYIN DAILY RN - 07/20/2013 13:49 SLAG EXPANDER Cardiovascular Heart Rhythm : Regular HUSEYIN DAILY RN - 07/20/2013 13:49 SLAG EXPANDER Respiratory Anesthesia Type : MAC, Spinal Respiratory Pattern : Regular Respirations : Unlabored All Lobes Breath Sounds : Clear HUSEYIN DAILY RN - 07/20/2013 13:49 SLAG EXPANDER GI/ Nausea Symptoms : No HUSEYIN DAILY RN - 07/20/2013 13:49 SLAG EXPANDER Integumentary Skin Color : Normal for ethnicity Skin Description : Dry Skin Temperature : Warm HUSEYIN DAILY RN - 07/20/2013 13:49 SLAG EXPANDER Incision/Wound Incision/Wound Care Grid Activity : Assessed Type : Other: arthroscopy Location : Knee Laterality : Left Description : Dry HUSEYIN DAILY RN - 07/20/2013 13:49 SLAG EXPANDER Peripheral IV Peripheral IV Assess/Intervention Grid Peripheral IV #1 IV Activity : Discontinue Number of Attempts : 1 Date of Insertion : 07/20/2013 SLAG EXPANDER IV Site : Hand Laterality : Left Catheter Size : 20 Catheter Type : Protective HUSEYIN DAILY 07/20/2013 13:49 SLAG EXPANDER Neurologic Swallowing Difficulty/Aspiration Risk : None Extremity Movement : Equal Facial Symmetry : Symmetric Characteristics of Speech : Appropriate for age HUSEYIN DAILY 07/20/2013 13:49 SLAG EXPANDER Neurological Strengths Grid Left Lower Extremity Right Lower Extremity Sensation : Intact Intact HUSEYIN DAILY 07/20/2013 13:49 SLAG EXPANDER HUSEYIN DAILY 07/20/2013 13:49 SLAG EXPANDER Lower Extremity Nail Bed Color Feet Grid Left Foot : Mabie Right Foot : Mabie HUSEYIN DAILY 07/20/2013 13:49 SLAG EXPANDER Capillary Refill Feet Grid Left Foot : < 2 seconds Right Foot : < 2 seconds HUSEYIN DAILY 07/20/2013 13:49 SLAG EXPANDER NV Lower Extremity Color Grid Left : Mabie Right : Mabie HUSEYIN DAILY 07/20/2013 13:49 SLAG EXPANDER NV Lower Extremity Temperature Grid Left : Warm Right : Warm HUSEYIN DAILY 07/20/2013 13:49 SLAG EXPANDER Lower Extremity Peripheral Pulses Grid Dorsalis Pedis Pulse, Left : 2+ Normal HUSEYIN DAILY 07/20/2013 13:49 SLAG EXPANDER Lower Extremity Sensation NV Grid Medial/Lateral Surfaces Sole of Left Foot : Decreased, Intact Medial/Lateral Surfaces Sole of Right Foot : Decreased, Intact Web Space Between Great and Second Toe Left Foot : Decreased, Intact Web Space Between Great and Second Toe Right Foot : Decreased, Intact HUSEYIN DAILY 07/20/2013 13:49 SLAG EXPANDER Lower Extremity Strength NV Grid Plantar Flexion Left Foot : Normal 5 Plantar Flexion Right Foot : Normal 5 Dorsiflex Foot/Extend Toes Left : Normal 5 Dorsiflex Foot/Extend Toes Right : Normal 5 HUSEYIN DAILY 07/20/2013 13:49 SLAG EXPANDER Activity Patient Position : Elevate head of bed 45 degrees Activity Status ADL : Up ad bob Activity Assistance : Independent HUSEYIN DAILY 07/20/2013 13:49 SLAG EXPANDER PARSAP Activity Status : Moves 4 extremities [...] 20 HUSEYIN DAILY RN - 07/20/2013 13:49 SLAG EXPANDER Duckworth Duckworth Agitation Sedation Scale (RASS) : Alert and calm RASS Score : 0 HUSEYIN DAILY RN - 07/20/2013 13:49 SLAG EXPANDER Carlos Sensory Perception Carlos : No impairment Moisture Carols : Rarely moist Activity Carlos : Walks frequently Mobility Carlos : No limitations Nutrition Carlos : Adequate Friction and Shear Carlos : No apparent problem Carlos Score : 22 HUSEYIN DAILY RN - 07/20/2013 13:49 SLAG EXPANDER Hendrich II Fall Risk Confusion/Disorientation Hendrich : [...] 2 HUSEYIN DAILY RN - 07/20/2013 13:49 SLAG EXPANDER Safe Patient Handling Safe Pt Handling Independent : Yes - No equipment needed Safe Pt Handling Equipment Rec : No Equipment Needed HUSEYIN DAILY RN - 07/20/2013 13:49 SLAG EXPANDER Education General Patient Education [employer] Topics : Printed materials Individuals Taught : Patient Barriers to Learning : None evident Teaching Method : Printed materials Teaching Evaluation : Verbalizes understanding HUSEYIN DAILY RN - 07/20/2013 13:49 SLAG EXPANDER Source: [facility] POWERCHART Document Id: [id number] SLAG EXPANDER!141 EXPANDER Miscellaneous - Huseyin Daily R.N. - 07/20/2013 1:33 PM CST Adult Postprocedure Assessment Adult Postprocedure Assessment Entered On: 07/20/2013 13:40 SLAG EXPANDER Performed On: 07/20/2013 13:33 SLAG EXPANDER by HUSEYIN DAILY RN Vital Signs Temperature [...] ft 0 inch(es)) HUSEYIN DAILY 07/20/2013 13:33 SLAG EXPANDER General Level of Consciousness : Alert Orientation : Oriented x 3 Skin Color : Normal for ethnicity Skin Description : Dry Skin Temperature : Warm Pain Symptoms : No HUSEYIN DAILY 07/20/2013 13:33 SLAG EXPANDER FLACC Face FLACC : No particular expression or smile Legs FLACC : Normal position or relaxed Activity FLACC : Lying quietly, normal position, moves easily Cry FLACC : No cry, awake or asleep Consolabillity FLACC : Content, relaxed FLACC Pain Scale Score : 0 HUSEYIN DAILY 07/20/2013 13:33 SLAG EXPANDER Cardiovascular Heart Rhythm : Regular HUSEYIN DAILY 07/20/2013 13:33 SLAG EXPANDER Respiratory Anesthesia Type : MAC, Spinal Respiratory Pattern : Regular Respirations : Unlabored HUSEYIN DAILY 07/20/2013 13:33 SLAG EXPANDER GI/ Nausea Symptoms : No HUSEYIN DAILY 07/20/2013 13:33 SLAG EXPANDER Integumentary Skin Color : Normal for ethnicity Skin Description : Dry Skin Temperature : Warm HUSEYIN DAILY 07/20/2013 13:33 SLAG EXPANDER Incision/Wound Incision/Wound Care Grid Activity : Assessed Type : Other: arthroscopy Location : Knee Laterality : Left Description : Dry HUSEYIN DAILY 07/20/2013 13:33 SLAG EXPANDER Peripheral IV Peripheral IV Assess/Intervention Grid Peripheral IV #1 IV Activity : Discontinue Number of Attempts : 1 Date of Insertion : 07/20/2013 SLAG EXPANDER IV Site : Hand Laterality : Left Catheter Size : 20 Catheter Type : Protective Site Condition : No complications Drainage Description : None HUSEYIN DAILY 07/20/2013 13:33 SLAG EXPANDER I&O Oral Intake : 100 mL Other Intake : 100 mL (Comment: I.V. fluids [HUSEYIN DAILY 07/20/2013 13:33 SLAG EXPANDER] ) HUSEYIN DAILY 07/20/2013 13:33 SLAG EXPANDER Nutrition Lunch : 100 % HUSEYIN DAILY 07/20/2013 13:33 SLAG EXPANDER Neurologic Swallowing Difficulty/Aspiration Risk : None Extremity Movement : Equal Facial Symmetry : Symmetric Characteristics of Speech : Appropriate for age HUSEYIN DAILY 07/20/2013 13:33 SLAG EXPANDER Neurological Strengths Grid Left Lower Extremity Right Lower Extremity Sensation : Decreased Decreased HUSEYIN DAILY 07/20/2013 13:33 SLAG EXPANDER HUSEYIN DAILY 07/20/2013 13:33 SLAG EXPANDER Lower Extremity Nail Bed Color Feet Grid Left Foot : Mabie Right Foot : Mabie HUSEYIN DAILY 07/20/2013 13:33 SLAG EXPANDER Capillary Refill Feet Grid Left Foot : < 2 seconds Right Foot : < 2 seconds HUSEYIN DAILY 07/20/2013 13:33 SLAG EXPANDER NV Lower Extremity Color Grid Left : Mabie Right : Mabie HUSEYIN DAILY 07/20/2013 13:33 SLAG EXPANDER NV Lower Extremity Temperature Grid Left : Warm Right : Warm HUSEYIN DAILY 07/20/2013 13:33 SLAG EXPANDER Lower Extremity Peripheral Pulses Grid Dorsalis Pedis Pulse, Left : 2+ Normal HUSEYIN DAILY 07/20/2013 13:33 SLAG EXPANDER Lower Extremity Sensation NV Grid Medial/Lateral Surfaces Sole of Left Foot : Decreased Medial/Lateral Surfaces Sole of Right Foot : Decreased Web Space Between Great and Second Toe Left Foot : Decreased Web Space Between Great and Second Toe Right Foot : Decreased HUSEYIN DAILY 07/20/2013 13:33 SLAG EXPANDER Activity Patient Position : Elevate head of bed 45 degrees HUSEYIN DAILY 07/20/2013 13:33 SLAG EXPANDER PARSAP Activity Status : Moves 4 extremities [...] : Not assessed HUSEYIN DAILY 07/20/2013 13:33 SLAG EXPANDER Duckworth Duckworth Agitation Sedation Scale (RASS) : Alert and calm RASS Score : 0 HUSEYIN DAILY 07/20/2013 13:33 SLAG EXPANDER Carlos Sensory Perception Carlos : No impairment Moisture Carlos : Rarely moist Activity Carlos : Bedfast Mobility Carlos : Very limited Nutrition Calros : Adequate Friction and Shear Carlos : No apparent problem Carlos Score : 17 HUSEYIN DAILY RN - 07/20/2013 13:33 SLAG EXPANDER Hendrich II Fall Risk Confusion/Disorientation Hendrich : [...] 2 HUSEYIN DAILY RN - 07/20/2013 13:33 SLAG EXPANDER Safe Patient Handling Safe Pt Handling Independent : Yes - No equipment needed Safe Pt Handling Equipment Rec : No Equipment Needed HUSEYIN DAILY RN - 07/20/2013 13:33 SLAG EXPANDER Source: [employer] Document Id: [id number] SLAG EXPANDER!130 EXPANDER Miscellaneous - Huseyin Daily R.N. - 07/20/2013 1:19 PM CST Adult Postprocedure Assessment Adult Postprocedure Assessment Entered On: 07/20/2013 13:26 SLAG EXPANDER Performed On: 07/20/2013 13:19 SLAG EXPANDER by HUSEYIN DAILY RN Vital Signs Temperature [...] inch(es)) HUSEYIN DAILY RN - 07/20/2013 13:19 SLAG EXPANDER General Level of Consciousness : Alert Orientation : Oriented x 3 Skin Color : Normal for ethnicity Skin Description : Dry Skin Temperature : Warm Pain Symptoms : No HUSEYIN DAILY RN - 07/20/2013 13:19 SLAG EXPANDER FLACC Face FLACC : No particular expression or smile Legs FLACC : Normal position or relaxed Activity FLACC : Lying quietly, normal position, moves easily Cry FLACC : No cry, awake or asleep Consolabillity FLACC : Content, relaxed FLACC Pain Scale Score : 0 HUSEYIN DAILY 07/20/2013 13:19 SLAG EXPANDER Cardiovascular Heart Rhythm : Regular Nail Bed Color : Mabie HUSEYIN DAILY 07/20/2013 13:19 SLAG EXPANDER Respiratory Anesthesia Type : Spinal Respiratory Pattern : Regular Respirations : Unlabored HUSEYIN DAILY 07/20/2013 13:19 SLAG EXPANDER Incentive Spirometry Cough and Deep Breathe : Done HUSEYIN DAILY 07/20/2013 13:19 SLAG EXPANDER GI/ Nausea Symptoms : No HUSEYIN DAILY 07/20/2013 13:19 SLAG EXPANDER Integumentary Mucous Membrane Color : Mabie Mucous Membrane Description : Moist Skin Color : Normal for ethnicity Skin Description : Dry Skin Temperature : Warm HUSEYIN DAILY 07/20/2013 13:19 SLAG EXPANDER Incision/Wound Incision/Wound Care Grid Activity : Assessed Type : Other: arthroscopy Location : Knee Laterality : Left Description : Dry HUSEYIN DAILY 07/20/2013 13:19 SLAG EXPANDER Peripheral IV Peripheral IV Assess/Intervention Grid Peripheral IV #1 IV Activity : Assessment Number of Attempts : 1 Date of Insertion : 07/20/2013 SLAG EXPANDER IV Site : Hand Laterality : Left Catheter Size : 20 Catheter Type : Protective Site Condition : No complications Drainage Description : None HUSEYIN DAILY 07/20/2013 13:19 SLAG EXPANDER I&O Oral Intake : 60 mL Other Intake : 100 mL (Comment: I.V. fluids [HUSEYIN DAILY 07/20/2013 13:19 SLAG EXPANDER] ) HUSEYIN DAILY 07/20/2013 13:19 SLAG EXPANDER Neurologic Swallowing Difficulty/Aspiration Risk : None Extremity Movement : Equal Facial Symmetry : Symmetric Characteristics of Speech : Appropriate for age HUSEYIN DAILY 07/20/2013 13:19 SLAG EXPANDER Neurological Strengths Grid Left Upper Extremity Right Upper Extremity Left Lower Extremity Right Lower Extremity Sensation : Intact Intact Decreased Decreased HUSEYIN DAILY 07/20/2013 13:19 SLAG EXPANDER HUSEYIN DAILY 07/20/2013 13:19 SLAG EXPANDER HUSEYIN DAILY 07/20/2013 13:19 SLAG EXPANDER HUSEYIN DAILY 07/20/2013 13:19 SLAG EXPANDER Lower Extremity Nail Bed Color Feet Grid Left Foot : Mabie Right Foot : Mabie HUSEYIN DAILY 07/20/2013 13:19 SLAG EXPANDER Capillary Refill Feet Grid Left Foot : < 2 seconds Right Foot : < 2 seconds HUSEYIN DAILY 07/20/2013 13:19 SLAG EXPANDER NV Lower Extremity Color Grid Left : Mabie Right : Mabie HUSEYIN DAILY 07/20/2013 13:19 SLAG EXPANDER NV Lower Extremity Temperature Grid Left : Warm Right : Warm HUSEYIN DAILY 07/20/2013 13:19 SLAG EXPANDER Lower Extremity Peripheral Pulses Grid Dorsalis Pedis Pulse, Left : 2+ Normal HUSEYIN DAILY 07/20/2013 13:19 SLAG EXPANDER Lower Extremity Sensation NV Grid Medial/Lateral Surfaces Sole of Left Foot : Decreased Medial/Lateral Surfaces Sole of Right Foot : Decreased Web Space Between Great and Second Toe Left Foot : Decreased Web Space Between Great and Second Toe Right Foot : Decreased HUSEYIN DAILY 07/20/2013 13:19 SLAG EXPANDER Activity Patient Position : Elevate head of bed 45 degrees HUSEYIN DAILY 07/20/2013 13:19 SLAG EXPANDER Modified Jessica Activity : Moves 4 extremities voluntarily or on command Respiratory : Able to deep breathe and cough freely Circulation : BP +/- 20% of preprocedural level or not unusually high or low Consciousness : Fully awake O2 Saturation : O2 SAT at preprocedural level Jessica l Score : 10 HUSEYIN DAILY 07/20/2013 13:19 SLAG EXPANDER PARSAP Dressing : Dry and clean Pain : Pain free Fasting and Feeding : Able to drink fluids Urine Output, PARSAP : Not assessed HUSEYIN DAILY 07/20/2013 13:19 SLAG EXPANDER Duckworth Duckworth Agitation Sedation Scale (RASS) : Alert and calm RASS Score : 0 HUSEYIN DAILY 07/20/2013 13:19 SLAG EXPANDER Carlos Sensory Perception Carlos : No impairment Moisture Carlos : Rarely moist Activity Carlos : Bedfast Mobility Carlos : Very limited Nutrition Carlos : Adequate Friction and Shear Carlos : No apparent problem Carlos Score : 17 HUSEYIN DAILY 07/20/2013 13:19 SLAG EXPANDER Hendrich II Fall Risk Confusion/Disorientation Hendrich : [...] 2 HUSEYIN DAILY RN - 07/20/2013 13:19 SLAG EXPANDER Safe Patient Handling Safe Pt Handling Independent : Yes - No equipment needed Safe Pt Handling Equipment Rec : No Equipment Needed HUSEYIN DAILY RN - 07/20/2013 13:19 SLAG EXPANDER Education General Patient Education [employer] Topics : Printed materials Individuals Taught : Patient Barriers to Learning : None evident Teaching Method : Explanation, Printed materials Teaching Evaluation : Verbalizes understanding HUSEYIN DAILY RN - 07/20/2013 13:19 SLAG EXPANDER Source: [facility] CENTERApplied Immune TechnologiesCHART Document Id: [id number] SLAG EXPANDER!147 EXPANDER Miscellaneous - Huseyin Daily R.N. - 07/20/2013 12:57 PM CST Adult Postprocedure Assessment Adult Postprocedure Assessment Entered On: 07/20/2013 13:05 SLAG EXPANDER Performed On: 07/20/2013 12:57 SLAG EXPANDER by HUSEYIN DAILY RN Vital Signs Temperature Core : 36.5 DegC(Converted to: 97.7 DegF) Peripheral Pulse Rate : 60 /min Respiratory Rate : 12 /min (LOW) BP Location : Right upper extremity SpO2 : 94 % Oxygen Saturation Monitoring Frequency : Continuous Oxygen Therapy : Room air Height : 182 cm(Converted to: 6 ft 0 inch(es)) HUSEYIN DAILY RN - 07/20/2013 12:57 SLAG EXPANDER General Level of Consciousness : Drowsy Orientation : Oriented x 3 Skin Color : Normal for ethnicity Skin Description : Dry Skin Temperature : Warm Pain Symptoms : No HUSEYIN DAILY RN - 07/20/2013 12:57 SLAG EXPANDER FLACC Face FLACC : No particular expression or smile Legs FLACC : Normal position or relaxed Activity FLACC : Lying quietly, normal position, moves easily Cry FLACC : No cry, awake or asleep Consolabillity FLACC : Content, relaxed FLACC Pain Scale Score : 0 HUSEYIN DAILY RN - 07/20/2013 12:57 SLAG EXPANDER Cardiovascular Heart Rhythm : Regular Nail Bed Color : Mabie Capillary Refill : Less than 2 seconds HUSEYIN DAILY 07/20/2013 12:57 SLAG EXPANDER Pulses Grid Dorsalis Pedis Pulse, Left : 2+ Normal HUSEYIN DAILY 07/20/2013 12:57 SLAG EXPANDER Antiembolism Device : Sequential Compression Device Antiembolism Device Laterality : Right HUSEYIN DAILY 07/20/2013 12:57 SLAG EXPANDER Respiratory Anesthesia Type : Spinal Respiratory Pattern : Regular Respirations : Unlabored All Lobes Breath Sounds : Clear HUSEYIN DAILY 07/20/2013 12:57 SLAG EXPANDER Incentive Spirometry Cough and Deep Breathe : Done HUSEYIN DAILY 07/20/2013 12:57 SLAG EXPANDER GI/ Nausea Symptoms : No HUSEYIN DAILY 07/20/2013 12:57 SLAG EXPANDER Integumentary Skin Color : Normal for ethnicity Skin Description : Dry Skin Temperature : Warm HUSEYIN DAILY 07/20/2013 12:57 SLAG EXPANDER Incision/Wound Incision/Wound Care Grid Activity : Assessed Type : Other: arthroscopy Location : Knee Laterality : Left Description : Dry HUSEYIN DAILY 07/20/2013 12:57 SLAG EXPANDER Peripheral IV Peripheral IV Assess/Intervention Grid Peripheral IV #1 IV Activity : Assessment Number of Attempts : 1 Date of Insertion : 07/20/2013 SLAG EXPANDER IV Site : Hand Laterality : Left Catheter Size : 20 Catheter Type : Protective Site Condition : No complications Drainage Description : None HUSEYIN DAILY 07/20/2013 12:57 SLAG EXPANDER I&O Other Intake : 200 mL (Comment: I.V. fluids [HUSEYIN DAILY 07/20/2013 12:57 SLAG EXPANDER] ) HUSEYIN DAILY 07/20/2013 12:57 SLAG EXPANDER Neurologic Swallowing Difficulty/Aspiration Risk : None Extremity Movement : Equal Facial Symmetry : Symmetric Characteristics of Speech : Appropriate for age HUSEYIN DAILY 07/20/2013 12:57 SLAG EXPANDER Neurological Strengths Grid Left Upper Extremity Right Upper Extremity Sensation : Intact Intact HUSEYIN DAILY 07/20/2013 12:57 SLAG EXPANDER HUSEYIN DAILY 07/20/2013 12:57 SLAG EXPANDER Lower Extremity Nail Bed Color Feet Grid Left Foot : Mabie Right Foot : Mabie HUSEYIN DAILY 07/20/2013 12:57 SLAG EXPANDER Capillary Refill Feet Grid Left Foot : < 2 seconds Right Foot : < 2 seconds HUSEYIN DAILY 07/20/2013 12:57 SLAG EXPANDER NV Lower Extremity Color Grid Left : Mabie Right : Mabie HUSEYIN DAILY RN 07/20/2013 12:57 SLAG EXPANDER NV Lower Extremity Temperature Grid Left : Warm Right : Warm HUSEYIN DAILY RN 07/20/2013 12:57 SLAG EXPANDER Lower Extremity Sensation NV Grid Medial/Lateral Surfaces Sole of Left Foot : Absent Medial/Lateral Surfaces Sole of Right Foot : Absent Web Space Between Great and Second Toe Left Foot : Absent Web Space Between Great and Second Toe Right Foot : Absent HUSEYIN DAILY RN 07/20/2013 12:57 SLAG EXPANDER Activity Patient Position : Elevate head of bed 30 degrees HUSEYIN DAILY 07/20/2013 12:57 SLAG EXPANDER Modified Jessica Activity : Moves 4 extremities voluntarily or on command Respiratory : Able to deep breathe and cough freely Circulation : BP +/- 20% of preprocedural level or not unusually high or low Consciousness : Arouses on calling O2 Saturation : O2 SAT at preprocedural level Jessica l Score : 9 HUSEYIN DAILY 07/20/2013 12:57 SLAG EXPANDER PARSAP Dressing : Dry and clean Pain : Pain free Fasting and Feeding : Able to drink fluids Urine Output, PARSAP : Not assessed HUSEYIN DAILY 07/20/2013 12:57 SLAG EXPANDER Duckworth Duckworth Agitation Sedation Scale (RASS) : Drowsy RASS Score : -1 HUSEYIN DAILY 07/20/2013 12:57 SLAG EXPANDER Carlos Sensory Perception Carlos : Very limited Moisture Carlos : Rarely moist Activity Carlos : Bedfast Mobility Carlos : Completely limited Nutrition Carlos : Adequate Friction and Shear Carlos : No apparent problem Carlos Score : 14 HUSEYIN DAILY 07/20/2013 12:57 SLAG EXPANDER Hendrich II Fall Risk Confusion/Disorientation Hendrich : [...] II : 2 HUSEYIN DAILY 07/20/2013 12:57 SLAG EXPANDER Safe Patient Handling Safe Pt Handling Independent : Yes - No equipment needed Safe Pt Handling Equipment Rec : No Equipment Needed HUSEYIN DAILY RN - 07/20/2013 12:57 SLAG EXPANDER Source: [facility] POWERCHART Document Id: [id number] SLAG EXPANDER!133 EXPANDER Miscellaneous - Huseyin Daily R.N. - 07/20/2013 12:35 PM CST Adult Postprocedure Assessment Adult Postprocedure Assessment Entered On: 07/20/2013 12:56 SLAG EXPANDER Performed On: 07/20/2013 12:35 SLAG EXPANDER by HUSEYIN DAILY RN Vital Signs Temperature [...] inch(es)) HUSEYIN DAILY RN - 07/20/2013 12:30 SLAG EXPANDER General Level of Consciousness : Drowsy Orientation : Oriented x 3 Skin Color : Normal for ethnicity Skin Description : Dry Skin Temperature : Warm Pain Symptoms : No HUSEYIN DAILY RN - 07/20/2013 12:30 SLAG EXPANDER FLACC Face FLACC : No particular expression or smile Legs FLACC : Normal position or relaxed Activity FLACC : Lying quietly, normal position, moves easily Cry FLACC : No cry, awake or asleep Consolabillity FLACC : Content, relaxed FLACC Pain Scale Score : 0 HUSEYIN DAILY RN - 07/20/2013 12:30 SLAG EXPANDER Cardiovascular Heart Rhythm : Regular Nail Bed Color : Mabie Capillary Refill : Less than 2 seconds Antiembolism Device : Sequential Compression Device Antiembolism Device Laterality : Left HUSEYIN DAILY RN - 07/20/2013 12:30 SLAG EXPANDER Respiratory Anesthesia Type : Spinal Respiratory Pattern : Regular Respirations : Unlabored All Lobes Breath Sounds : Clear Oxygen Discontinuation : 07/20/2013 12:44 SLAG EXPANDER HUSEYIN DAILY RN - 07/20/2013 12:30 SLAG EXPANDER Incentive Spirometry Cough and Deep Breathe : Done HUSEYIN DAILY RN - 07/20/2013 12:30 SLAG EXPANDER GI/ Nausea Symptoms : No HUSEYIN DAILY 07/20/2013 12:30 SLAG EXPANDER Integumentary Skin Color : Normal for ethnicity Skin Description : Dry Skin Temperature : Warm HUSEYIN DAILY 07/20/2013 12:30 SLAG EXPANDER Incision/Wound Incision/Wound Care Grid Activity : Assessed Type : Other: arthroscopy Location : Knee Laterality : Left Description : Dry HUSEYIN DAILY 07/20/2013 12:30 SLAG EXPANDER Peripheral IV Peripheral IV Assess/Intervention Grid Peripheral IV #1 IV Activity : Assessment Number of Attempts : 1 Date of Insertion : 07/20/2013 SLAG EXPANDER IV Site : Hand Laterality : Left Catheter Size : 20 Catheter Type : Protective Site Condition : No complications Drainage Description : None HUSEYIN DAILY 07/20/2013 12:30 SLAG EXPANDER I&O Other Intake : 1,600 mL (Comment: I.V. fluids given during surgery and recorded on paper copy [HUSEYIN DAILY 07/20/2013 12:30 SLAG EXPANDER] ) HUSEYIN DAILY 07/20/2013 12:30 SLAG EXPANDER Neurologic Swallowing Difficulty/Aspiration Risk : None Extremity Movement : Equal HUSEYIN DAILY 07/20/2013 12:30 SLAG EXPANDER Pupil, Left Pupil, Right Description : Regular Regular HUSEYIN DAILY 07/20/2013 12:30 SLAG EXPANDER HUSEYIN DAILY 07/20/2013 12:30 SLAG EXPANDER Facial Symmetry : Symmetric Characteristics of Speech : Appropriate for age HUSEYIN DAILY 07/20/2013 12:30 SLAG EXPANDER Lower Extremity Nail Bed Color Feet Grid Left Foot : Mabie Right Foot : Mabie HUSEYIN DAILY 07/20/2013 12:30 SLAG EXPANDER Capillary Refill Feet Grid Left Foot : < 2 seconds Right Foot : < 2 seconds HUSEYIN DAILY 07/20/2013 12:30 SLAG EXPANDER NV Lower Extremity Color Grid Left : Mabie Right : Mabie HUSEYIN DAILY 07/20/2013 12:30 SLAG EXPANDER NV Lower Extremity Temperature Grid Left : Warm Right : Warm HUSEYIN DAILY 07/20/2013 12:30 SLAG EXPANDER Lower Extremity Sensation NV Grid Medial/Lateral Surfaces Sole of Left Foot : Absent Medial/Lateral Surfaces Sole of Right Foot : Absent Web Space Between Great and Second Toe Left Foot : Absent Web Space Between Great and Second Toe Right Foot : Absent HUSEYIN DAILY RN - 07/20/2013 12:30 SLAG EXPANDER Activity Patient Position : Head of bed flat HUSEYIN DAILY RN - 07/20/2013 12:30 SLAG EXPANDER Modified Jessica Activity : Moves 2 extremities voluntarily or on command Respiratory : Able to deep breathe and cough freely Circulation : BP +/- 20% of preprocedural level or not unusually high or low Consciousness : Arouses on calling O2 Saturation : Needs oxygen to maintain > 92% Jessica l Score : 7 HUSEYIN DAILY RN - 07/20/2013 12:30 SLAG EXPANDER Duckworth Duckworth Agitation Sedation Scale (RASS) : Drowsy RASS Score : -1 HUSEYIN DAILY RN - 07/20/2013 12:30 SLAG EXPANDER Carlos Sensory Perception Carlos : Very limited Moisture Carlos : Rarely moist Activity Carlos : Bedfast Mobility Carlos : Completely limited Nutrition Carlos : Adequate Friction and Shear Carlos : No apparent problem Carlos Score : 14 HUSEYIN DAILY RN - 07/20/2013 12:30 SLAG EXPANDER Hendrich II Fall Risk Confusion/Disorientation Hendrich : [...] 2 HUSEYIN DAILY RN - 07/20/2013 12:30 SLAG EXPANDER Safe Patient Handling Safe Pt Handling Independent : Yes - No equipment needed Safe Pt Handling Equipment Rec : No Equipment Needed HUSEYIN DAILY RN - 07/20/2013 12:30 SLAG EXPANDER Education General Patient Education [employer] Topics : [...] understanding HUSEYIN DAILY RN - 07/20/2013 12:30 SLAG EXPANDER Source: [facility] POWERCHART Document Id: [id number] SLAG EXPANDER!139 EXPANDER Miscellaneous - Tanvi Britton APRN, DIRECTOR OF VOCATIONAL TRAINING - 07/15/2013 7:30 AM CST General Message From: TANVI BRITTON RN DIRECTOR OF VOCATIONAL TRAINING To: HARVINDER STUBBS III, MD; Cc: LILIANA TORRES RN; Sent: 07/15/2013 07:30:53 SLAG EXPANDER Subject: General Message Hi Dr. Stubbs, We have Hussein scheduled for his knee scope on Friday, 07/20. You did his H&P on 07/07. Could youdictate his note BEBETO so I have it to review? Thanks, Tanvi Source: [facility] POWERCHART Document Id: [id number] documented in this encounter Plan of Treatment Not on filedocumented as of this encounter Visit Diagnoses Not on filedocumented in this encounter
--- OUTSIDE RECORDS SUMMARY | 2022-02-22 11:11 | XMS_ITS | Encounter Summary ---
:1960 Author Organization [facility] Address [address] [place] [address] Care Team Providers Name Role Phone Unavailable Primary Care Provider Unavailable Encounter Details Date Type Department Care Team Description 03/29/2014 Hospital Encounter HX [facility] Merari Dixon M.D. [address] [place], [place] [phone] (Wo rk) Social History [...] or relatives? How often do you attend hinduism or Patient refused 2021 taoism services? Do you belong to any clubs or No 12/20/2021 organizations such as hinduism groups, unions, fraternal or athletic groups, or [...] at Date Recorded Male 06/23/2021 7:46 PM CORN BREEDER documented as of this encounter Last Filed Vital Signs Vital Sign Reading Time Taken Comments Blood Pressure 134/76 03/29/2014 3:24 PM CORN BREEDER Pulse 75 03/29/2014 3:24 PM CORN BREEDER Temperature - - Respiratory Rate 18 03/29/2014 3:24 PM CORN BREEDER Oxygen Saturation - - Inhaled Oxygen Concentration - - Weight - - Height 182 cm (5' 11.65) 03/29/2014 3:24 PM CORN BREEDER Body Mass Index - - documented in this encounter Medications at Time of Discharge Medication Sig Dispensed Refills Start Date End Date ASPIRIN ORAL Take 1 tablet by mouth daily. 0 01/1804/13/2021 documented as of this encounter Consult Notes Dk Mijares M.D. - 03/29/2014 3:18 PM CST [id number] HISTORY OF PRESENT ILLNESS Hussein is a [...] MIJARES MD On: 04/06/2014 03:30 PM Source: [facility] [email or web address] Document Id: [id number] BREEDER documented in this encounter Miscellaneous Notes Miscellaneous - Roma Lindo, R.N. 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 He [...] inch(es)) ROMA LINDO RN - 03/29/2014 15:24 CORN BREEDER General Info Information Given By : Patient Preferred Communication Mode : Verbal Languages : Ukrainian Is Patient Female and 13-50 no hysterectomy : No ROMA LINDO RN - 03/29/2014 15:24 CORN BREEDER Subjective Pain Symptoms : Yes ROMA LINDO N - 03/29/2014 15:24 CORN BREEDER Pain Pain Assessment Grid Pain 1 Location : Knee Laterality : Left ROMA LINDO - 03/29/2014 15:24 CORN BREEDER Dependent Habits Tobacco Use/Currently Using : No Tobacco Use/Last 12 months : No Exposure to Tobacco Smoke : Care provider denies smoking in home Smoking Status : Former smoker ROMA LINDO - 03/29/2014 15:24 CORN BREEDER Tobacco Use Grid Type : Cigarettes Last Use : 1996 ROMA LINDO - 03/29/2014 15:24 CORN BREEDER Caffeine Use Grid Caffeine Use : None ROMA LINDO - 03/29/2014 15:24 CORN BREEDER Recreational Drug Use Grid Drug Use : None ROMA LINDO - 03/29/2014 15:24 CORN BREEDER ID Screen Drug Resistant Organism : No Travel Within Last 21 Days : No ROMA LINDO - 03/29/2014 15:24 CORN BREEDER Source: [employer] Document Id: [id number] CORN BREEDER!42 BREEDER documented in this encounter Plan of Treatment Not on filedocumented as of this encounter Visit Diagnoses Not on filedocumented in this encounter
--- OUTSIDE RECORDS SUMMARY | 2022-02-22 11:11 | XMS_ITS | Encounter Summary ---
:1960 Author Organization [facility] Address [address] [place] [address] Care Team Providers Name Role Phone Unavailable Primary Care Provider Unavailable Encounter Details Date Type Department Care Team Description 07/07/2013 Hospital Encounter HX [facility] Mikey Smith III, M.D. [address] [place] [phone] (Wo rk) [...] you attend shinto or Patient refused 2021 rastafarian services? Do you belong to any clubs or No 12/20/2021 organizations such as shinto groups, unions, fraternal or athletic groups, or [...] at Date Recorded Male 06/23/2021 7:46 PM UNION CONTRACT REPRESENTATIVE documented as of this encounter Last Filed Vital Signs Vital Sign Reading Time Taken Comments Blood Pressure 134/85 07/07/2013 4:28 PM UNION CONTRACT REPRESENTATIVE Pulse 69 07/07/2013 4:28 PM UNION CONTRACT REPRESENTATIVE Temperature - - Respiratory Rate 16 07/07/2013 4:28 PM UNION CONTRACT REPRESENTATIVE Oxygen Saturation - - Inhaled Oxygen Concentration - - Weight 111 kg (244 lb 7.8 oz) 07/07/2013 4:28 PM UNION CONTRACT REPRESENTATIVE Height 182 cm (5' 11.65) 07/07/2013 4:28 PM UNION CONTRACT REPRESENTATIVE Body Mass Index 33.48 07/07/2013 4:28 PM UNION CONTRACT REPRESENTATIVE documented in this encounter Medications at Time of Discharge Medication Sig Dispensed Refills Start Date End Date ASPIRIN ORAL Take 1 tablet by mouth daily. 0 01/1804/13/2021 documented as of this encounter H&P Notes Kavon Stuart M.D. - 07/07/2013 4:21 PM CST [id number] CHIEF COMPLAINT/REASON FOR VISIT Preoperative visit per [...] high blood pressure, and history of an OH. Father is age 87. He has got [...] Stuart M.D./osiris cc: [facility] [address] Electronically Signed By: KAVON STUART III, MD On: 07/25/2013 12:36 PM Source: [facility] MHSDOLBEYNONRADSYS Document Id: [id number] documented in this encounter Miscellaneous Notes Miscellaneous - Kavon Stuart M.D. - 07/07/2013 4:58 PM CST Ambulatory Patient Summary [address] [place] [address] Visit Information Name: HUSSEIN HERNANDEZ [facility] Number: [id number] Current Date: 07/07/2013 16:58:33 [...] Date Time Location Reason Provider 07/20/2013 11:00 [facility] Surgery OP Left knee arthroscopy, partial medial meniscectomy [facility] OR 1 08/06/2013 09:30 [facility] post-op left knee Marii ANTHONY, Adrián Mcgarry Attention: Contact your local Clinic if further appointment detail needed. Your Goals/Additional instructions: Source: [facility] POWERCHART Document Id: [id number] N CONTRACT REPRESENTATIVE Miscellaneous - Kavon Stuart M.D. - 07/07/2013 4:58 PM CST Ambulatory Discharge Medication List [address] [address] Visit Information Name: HUSSEIN HERNANDEZ [facility] Number: [id number] Visit Date: 07/07/2013 16:58:31 [...] in case of emergency. Additional Information: Source: [facility] [employer] Mobile Document Id: [id number] N CONTRACT REPRESENTATIVE Miscellaneous - Ariana Eid L.P.NFarshad - 07/07/2013 4:34 PM CST Obstructive Sleep Apnea Obstructive Sleep Apnea Entered On: 07/07/2013 16:35 UNION CONTRACT REPRESENTATIVE Performed On: 07/07/2013 16:34 UNION CONTRACT REPRESENTATIVE by ARIANA EID LPN BALDO Screening Known Obstructive Sleep Apnea : No - NOT diagnosed with BALDO ARIANA EID LPN - 07/07/2013 16:34 UNION CONTRACT REPRESENTATIVE BALDO Assessment Do you have high blood pressure or have you been told to take medication for high blood pressure? : No Frequency of Snoring : Never Frequency of Gasping, Choking, Snorting : Never Total Number of Historical Features : 0 Neck Circumference (cm) : 46/47 Total Sleep Apnea Clinical Score Calc : 10 ARIANA EID LPN - 07/07/2013 16:34 UNION CONTRACT REPRESENTATIVE Source: [facility] HexagoCHART Document Id: [id number] UNION CONTRACT REPRESENTATIVE!10 N CONTRACT REPRESENTATIVE Miscellaneous - Ariana Eid L.P.N. - 07/07/2013 4:28 PM CST Adult Adult Manager Intake/History Adult Adult Manager Intake/History Entered On: 07/07/2013 16:34 UNION CONTRACT REPRESENTATIVE Performed On: 07/07/2013 16:28 UNION CONTRACT REPRESENTATIVE by ARIANA EID LPN Intake Chief Complaint [...] kg/m2 ARIANA EID LPN - 07/07/2013 16:28 UNION CONTRACT REPRESENTATIVE General Info Information Given By : Patient Languages : Croatian ARIANA EID LPN - 07/07/2013 16:28 UNION CONTRACT REPRESENTATIVE Subjective Pain Symptoms : Yes ARIANA EID LPN - 07/07/2013 16:28 UNION CONTRACT REPRESENTATIVE Pain Pain Assessment Grid Pain 1 Location : Knee Laterality : Left Intensity : 5 ARIANA EID LPN - 07/07/2013 16:28 UNION CONTRACT REPRESENTATIVE Dependent Habits Tobacco Use/Currently Using : No Exposure to Tobacco Smoke : Care provider denies smoking in home Smoking Status : Former smoker ARIANA EID LPN - 07/07/2013 16:28 UNION CONTRACT REPRESENTATIVE Tobacco Use Grid Type : Cigarettes Last Use : 1996 ARIANA EID LPN - 07/07/2013 16:28 UNION CONTRACT REPRESENTATIVE Caffeine Use Grid Caffeine Use : None ARIANA EID LPN - 07/07/2013 16:28 UNION CONTRACT REPRESENTATIVE Recreational Drug Use Grid Drug Use : None ARIANA EID LPN - 07/07/2013 16:28 UNION CONTRACT REPRESENTATIVE Source: [facility] POWERCHART Document Id: [id number] UNION CONTRACT REPRESENTATIVE!44 N CONTRACT REPRESENTATIVE documented in this encounter Plan of Treatment Not on filedocumented as of this encounter Visit Diagnoses Not on filedocumented in this encounter
--- OUTSIDE RECORDS SUMMARY | 2022-02-22 11:11 | XMS_ITS | Encounter Summary ---
:1960 Author Organization [facility] Address [address] [place] [address] Care Team Providers Name Role Phone Unavailable [...] you attend episcopalian or Patient refused 2021 bahai services? 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 Hernandez is a pleasant 52-year-old gentleman [...] TONG PA-C On: 09/29/2013 03:30 PM Source: [facility] MHSDOLBEYNONRADSYS Document Id: [id number] documented in this encounter Miscellaneous Notes Miscellaneous - Matt Tong - 09/21/2013 3:40 PM CDT Ambulatory Patient Summary [address] [place], [place] [id number] Visit Information Name: PILO HERNANDEZ [facility] Number: [id number] Current Date: 09/21/2013 15:40:38 Physicians [...] appointment detail needed. Your Goals/Additional instructions: Source: [facility] POWERCHART Document Id: [id number] Miscellaneous - Matt Tong - 09/21/2013 3:40 PM CDT Ambulatory Discharge Medication List [facility] [address] [facility] [place] [id number] Visit Information Name: PILO HERNANDEZ [facility] Number: [id number] Visit Date: 09/21/2013 15:40:37 Attending [...] PA-C Signed On:21-SEP-2013 15:40:32 Additional Information: Source: [facility] POWERCHART Document Id: [id number] Miscellaneous - Roxy Olguin R.N. - 09/21/2013 3:21 PM CDT Adult Flask Handler Intake/History Adult Flask Handler Intake/History Entered On: 09/21/2013 15:24 CDT Performed On: 09/21/2013 15:21 CDT by ROXY OLGUIN milk route supervisor Chief Complaint : f/u left knee pain, [...] Preferred Communication Mode : Verbal Languages : [place]inean ROXY OLGUIN RN - 09/21/2013 15:21 CDT [...] OLGUIN RN - 09/21/2013 15:21 CDT [email or web address] Document Id: [id number] CDT!38 documented in this encounter Plan of Treatment Not on filedocumented as of this encounter Visit Diagnoses Not on filedocumented in this encounter
--- OUTSIDE RECORDS SUMMARY | 2022-02-22 11:11 | XMS_ITS | Encounter Summary ---
:1960 Author Organization [facility] Address [address] [place] [address] Care Team Providers Name Role Phone Unavailable Primary Care Provider Unavailable Encounter Details Date Type Department Care Team Description 04/01/2011 Hospital Encounter HX [facility] Roger Giraldo M.D. [address] [place], [place] [address] (Wo rk) Social History Tobacco Use Types [...] you attend gnosticist or Patient refused 2021 jewish services? 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 0 01/1804/13/2021 documented as of this encounter Miscellaneous Notes Miscellaneous - Roxy Shea R.N. - 06/25/2011 1:43 PM CST Ambulatory Patient Summary [address] [place] [address] Visit Information Name: PILO HERNANDEZ Current Date: 06/25/2011 13:43:32 Primary Care Provider: [facility], WORK OVER RIG OPERATOR Your Medications Here is a list [...] No Appointments found Your Goals/Additional instructions: Source: [facility] EZBOB Document Id: [id number] IALTY SALES CONSULTANT Miscellaneous - Roxy Shea R.N. - 06/25/2011 1:43 PM CST Ambulatory Depart Summary [address] [address] Visit Information Name: PILO HERNANDEZ Current Date: 06/25/2011 13:43:31 Attending Provider: KHARI GIRALDO MD Primary Care Provider: [facility], WORK OVER RIG OPERATOR PILO HERNANDEZ has been given the following [...] Oral once a day Additional Information: [facility] Document Id: [id number] IALTY SALES CONSULTANT documented in this encounter Plan of Treatment Not on filedocumented as of this encounter Visit Diagnoses Not on filedocumented in this encounter
--- OUTSIDE RECORDS SUMMARY | 2022-02-22 11:11 | XMS_ITS | Encounter Summary ---
:1960 Author Organization [facility] Address [address] [place] [address] Care Team Providers Name Role Phone Unavailable Primary Care Provider Unavailable Encounter Details Date Type Department Care Team Description 03/29/2013 Hospital Encounter HX [facility] FAMILY ME Monse Meyers [...] you attend advent or Patient refused 2021 religion services? 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 documented as of this encounter Last Filed Vital Signs Vital Sign Reading Time Taken Comments Blood Pressure 120/70 03/29/2013 4:56 PM POLYSOMNOGRAPHY TECHNOLOGIST Pulse 72 03/29/2013 4:56 PM POLYSOMNOGRAPHY TECHNOLOGIST Temperature - - Respiratory Rate 14 03/29/2013 4:56 PM POLYSOMNOGRAPHY TECHNOLOGIST Oxygen Saturation - - Inhaled Oxygen Concentration - - Weight 111 kg (243 lb 13.3 oz) 03/29/2013 4:56 PM POLYSOMNOGRAPHY TECHNOLOGIST Height - - Body Mass Index 33.39 02/12/2013 3:29 PM CDT documented in this encounter Medications at Time of Discharge Medication Sig Dispensed Refills Start Date End Date ASPIRIN ORAL Take 1 tablet by mouth daily. 0 01/1804/13/2021 documented as of this encounter Progress Notes Monse Meyers M.D. - 03/29/2013 4:46 PM CST [id number] CHIEF COMPLAINT/REASON FOR VISIT Twisted left knee. [...] worked today. 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 - 03/29/2013 5:18 PM CST Ambulatory Patient Summary [address] [address] Visit Information Name: PILO HERNANDEZ [facility] Number: [id number] Current Date: 03/29/2013 17:18:44 Physicians [...] appointment detail needed. Your Goals/Additional instructions: Source: [facility] POWERCHART Document Id: [id number] ALUISA Hurst - Monse Meyers M.D. - 03/29/2013 5:18 PM CST Ambulatory Depart Summary [id number] [place] [address] Visit Information Name: MARY PILO NOWAK [facility] Number: [id number] Visit Date: 03/29/2013 17:18:43 Attending [...] your provider for clarification. Additional Information: Source: [facility] [employer] Document Id: [id number] ALUISA Hurst - Pamela Rivera, L.P.N. - 03/29/2013 4:56 PM CST Adult Special Projects Coordinator Intake/History Adult Special Projects Coordinator Intake/History Entered On: 03/29/2013 16:59 POLYSOMNOGRAPHY TECHNOLOGIST Performed On: 03/29/2013 16:56 POLYSOMNOGRAPHY TECHNOLOGIST by PAMELA RIVERA Intake Chief Complaint : [...] 110.6 kg PAMELA RIVERA - 03/29/2013 16:56 POLYSOMNOGRAPHY TECHNOLOGIST General Info Information Given By : Patient Languages : Anguillan PAMELA RIVERA - 03/29/2013 16:56 POLYSOMNOGRAPHY TECHNOLOGIST Subjective Pain Symptoms : Yes PAMELA RIVERA 03/29/2013 16:56 POLYSOMNOGRAPHY TECHNOLOGIST Pain Pain Assessment Grid Pain 1 Location : Knee Intensity : 6 PAMELA RIVERA 03/29/2013 16:56 POLYSOMNOGRAPHY TECHNOLOGIST Dependent Habits Tobacco Use/Currently Using : No Exposure to Tobacco Smoke : Care provider denies smoking in home Smoking Status : Former smoker PAMELA RIVERA 03/29/2013 16:56 POLYSOMNOGRAPHY TECHNOLOGIST Tobacco Use Grid Type : Cigarettes Last Use : 1996 PAMELA RIVERA 03/29/2013 16:56 POLYSOMNOGRAPHY TECHNOLOGIST Caffeine Use Grid Caffeine Use : None PAMELA RIVERA 03/29/2013 16:56 POLYSOMNOGRAPHY TECHNOLOGIST Recreational Drug Use Grid Drug Use : None PAMELA RIVERA 03/29/2013 16:56 POLYSOMNOGRAPHY TECHNOLOGIST Source: [facility] POWERCHART Document Id: [id number] POLYSOMNOGRAPHY TECHNOLOGIST!38 SOMNOGRAPHY TECHNOLOGIST documented in this encounter Plan of Treatment Not on filedocumented as of this encounter Visit Diagnoses Not on filedocumented in this encounter
--- OUTSIDE RECORDS SUMMARY | 2022-02-22 11:11 | XMS_ITS | Encounter Summary ---
:1960 Author Organization [facility] Address [address] [place] [address] Care Team Providers Name Role Phone Unavailable Primary Care Provider Unavailable Encounter Details Date Type Department Care Team Description 03/31/2012 Hospital Encounter HX [facility] July Arambula, ANA, C.N.P., D. N.P. [address] [place] [address] (Wo rk) Social History Tobacco [...] attend latter day or Patient refused 2021 anabaptist services? 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 0 01/1804/13/2021 documented as of this encounter Plan of Treatment Not on filedocumented as of this encounter Visit Diagnoses Not on filedocumented in this encounter
--- OUTSIDE RECORDS SUMMARY | 2022-02-22 11:11 | XMS_ITS | Encounter Summary ---
:1960 Author Organization [facility] Address [address] [place] [address] Care Team Providers Name Role Phone Unavailable Primary Care Provider Unavailable Encounter Details Date Type Department Care Team Description 06/01/2013 Hospital Encounter HX NO MAPPING Noe Mijares M.D. [address] [place], [place] [phone] (Wo rk) Social History [...] you attend pentecostalism or Patient refused 2021 temple services? Do [...] at Date Recorded Male 06/23/2021 7:46 PM ATTORNEY documented as of this encounter Last Filed Vital Signs Vital Sign Reading Time Taken Comments Blood Pressure 120/80 06/01/2013 2:13 PM ATTORNEY Pulse 94 06/01/2013 2:13 PM ATTORNEY Temperature - - Respiratory Rate 16 06/01/2013 2:13 PM ATTORNEY Oxygen Saturation - - Inhaled Oxygen Concentration - - Weight - - Height - - Body Mass Index - - documented in this encounter Medications at Time of Discharge Medication Sig Dispensed Refills Start Date End Date ASPIRIN ORAL Take 1 tablet by mouth daily. 0 01/1804/13/2021 documented as of this encounter Consult Notes Dk Mijares M.D. - 06/01/2013 2:08 PM CST [id number] HISTORY Pilo is a 52-year-old man who [...] MIJARES MD On: 06/29/2013 01:51 PM Source: [facility] MHSDOLBEYNONRADSYS Document Id: [id number] RNEY documented in this encounter Miscellaneous Notes Miscellaneous - Dk Mijares M.D. - 06/01/2013 4:06 PM CST Ambulatory Patient Summary [address] [address] Visit Information Name: PILO HERNANDEZ [facility] Number: [id number] Current Date: 06/01/2013 16:06:53 Physicians [...] appointment detail needed. Your Goals/Additional instructions: Source: [facility] POWERCHART Document Id: [id number] ALUISA Hurst - Dk Mijares M.D. - 06/01/2013 4:06 PM CST Ambulatory Depart Summary [facility] [address] [address] Visit Information Name: MARYPILO [facility] Number: [id number] Visit Date: 06/01/2013 16:06:52 Attending [...] in case of emergency. Additional Information: Source: [facility] VTMCHART Document Id: [id number] RNEY Miscellaneous - Roxy Shea R.N. - 06/01/2013 2:13 PM CST Adult Supervisor Brine Intake/History Adult Supervisor Brine Intake/History Entered On: 06/01/2013 14:15 ATTORNEY Performed On: 06/01/2013 14:13 ATTORNEY by ROXY SHEA car spotter Chief Complaint : f/u left knee pain, [...] % ROXY SHEA RN - 06/01/2013 14:13 ATTORNEY General Info Information Given By : Patient Preferred Communication Mode : Verbal Languages : Turkish ROXY SHEA RN - 06/01/2013 14:13 ATTORNEY Subjective Pain Symptoms : Yes ROXY SHEA RN - 06/01/2013 14:13 ATTORNEY Pain Pain Assessment Grid Pain 1 Location : Knee Laterality : Left ROXY SHEA RN - 06/01/2013 14:13 ATTORNEY Dependent Habits Tobacco Use/Currently Using : No Exposure to Tobacco Smoke : Care provider denies smoking in home Smoking Status : Former smoker ROXY SHEA RN - 06/01/2013 14:13 ATTORNEY Tobacco Use Grid Type : Cigarettes Last Use : 1996 ROXY SHEA RN - 06/01/2013 14:13 ATTORNEY Caffeine Use Grid Caffeine Use : None ROXY SHEA RN - 06/01/2013 14:13 ATTORNEY Recreational Drug Use Grid Drug Use : None ROXY SHEA RN - 06/01/2013 14:13 ATTORNEY Source: [facility] POWERCHART Document Id: [id number] ATTORNEY!38 RNEY documented in this encounter Plan of Treatment Not on filedocumented as of this encounter Visit Diagnoses Not on filedocumented in this encounter
--- OUTSIDE RECORDS SUMMARY | 2022-02-22 11:11 | XMS_ITS | Encounter Summary ---
:1960 Author Organization [facility] Address [address] [place] [address] Care Team Providers Name Role Phone Unavailable Primary Care Provider Unavailable Encounter Details Date Type Department Care Team Description 03/12/2013 Hospital Encounter HX [facility] Nieves Hunter AP RN, C.N.P., D.N.P. [address] [place], [place] [phone] (Wo rk) Social History [...] you attend advent or Patient refused 2021 adventist services? 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 0 01/1804/13/2021 documented as of this encounter Plan of Treatment Not on filedocumented as of this encounter Visit Diagnoses Not on filedocumented in this encounter
--- OUTSIDE RECORDS SUMMARY | 2022-02-22 11:11 | XMS_ITS | Encounter Summary ---
:1960 Author Organization [facility] Address [address] [place] [address] Care Team Providers Name Role Phone Unavailable Primary Care Provider Unavailable Encounter Details Date Type Department Care Team Description 06/09/[address] [facility] Iva Stubbs III, M.D. [address] [place] [phone] (Wo rk) Social [...] you attend yarsani or Patient refused 2021 pentecostal services? 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 0 01/1804/13/2021 documented as of this encounter Plan of Treatment Not on filedocumented as of this encounter Visit Diagnoses Not on filedocumented in this encounter
--- OUTSIDE RECORDS SUMMARY | 2022-02-22 11:12 | XMS_ITS | Encounter Summary ---
:1960 Author Organization [facility] Address [address] [place] [address] Care Team Providers Name Role Phone Unavailable Primary Care Provider Unavailable Encounter Details Date Type Department Care Team Description 02/10/2009 Hospital Encounter HX [facility] Lolly Shea P.A.-C. [address] [place] [address] (Wo rk) Social History Tobacco [...] you attend adventist or Patient refused 2021 buddhist services? 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
--- OUTSIDE RECORDS SUMMARY | 2022-02-22 11:12 | XMS_ITS | Encounter Summary ---
:1960 Author Organization [facility] Address [address] [place] [address] Care Team Providers Name Role Phone Unavailable Primary Care Provider Unavailable Encounter Details Date Type Department Care Team Description 11/25/2006 - Hospital Encounter HX [facility] Lyndsay Love, 12/02/2006 FRANCESCA Campbell [address] [place] [address] Social History Tobacco Use Types Packs/Day Years [...] you attend yazdanism or Patient refused 2021 rastafari services? 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
--- OUTSIDE RECORDS SUMMARY | 2022-02-22 11:12 | XMS_ITS | Encounter Summary ---
:1960 Author Organization [facility] Address [address] [place] [address] Care Team Providers Name Role Phone Unavailable Primary Care Provider Unavailable Encounter Details Date Type Department Care Team Description 02/10/2009 [facility] M.Racheal [address] [place] [phone] (Wo rk) Social [...] you attend taoist or Patient refused 2021 yazdanism services? 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
--- OUTSIDE RECORDS SUMMARY | 2022-02-22 11:12 | XMS_ITS | Encounter Summary ---
:1960 Author Organization [facility] Address [address] [place] [address] Care Team Providers Name Role Phone Unavailable Primary Care Provider Unavailable Encounter Details Date Type Department Care Team Description 05/04/2007 Hospital Encounter HX [facility] José Miguel Vásquez M.D. 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
--- OUTSIDE RECORDS SUMMARY | 2022-02-22 11:12 | XMS_ITS | Encounter Summary ---
:1960 Author Organization [facility] Address [address] [place] [address] Care Team Providers Name Role Phone Unavailable Primary Care Provider Unavailable Encounter Details Date Type Department Care Team Description 10/24/2009 Hospital Encounter HX NO MAPPING Noe Mijares M.D. [address] [place], [place] [phone] (Wo rk) Social History [...] you attend pentecostal or Patient refused 2021 caodaism services? Do [...] Recorded Male 06/23/2021 7:46 PM ACUTE CARE REGISTERED NURSE documented as of this encounter Plan of Treatment Not on filedocumented as of this encounter Visit Diagnoses Not on filedocumented in this encounter
--- OUTSIDE RECORDS SUMMARY | 2022-02-22 11:12 | XMS_ITS | Encounter Summary ---
:1960 Author Organization [facility] Address [address] [place] [address] Care Team Providers Name Role Phone Unavailable Primary Care Provider Unavailable Encounter Details Date Type Department Care Team Description 04/17/2009 Hospital Encounter [facility] INPT/OBSRV José Miguel Vásquez M.D. [address] [place] [address] (Wo rk) Social History Tobacco Use Types [...] you attend worship or Patient refused 2021 shinto services? 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
--- OUTSIDE RECORDS SUMMARY | 2022-02-22 11:12 | XMS_ITS | Encounter Summary ---
:1960 Author Organization [facility] Address [address] [place] [address] Care Team Providers Name Role Phone Unavailable Primary Care Provider Unavailable Encounter Details Date Type Department Care Team Description 05/02/2009 Hospital Encounter HX [facility] CAM INPT/OBSRV Darya Mijares M.D. [address] [place] [address] (Wo rk) Social History Tobacco [...] you attend holiness or Patient refused 2021 congregation services? 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
--- OUTSIDE RECORDS SUMMARY | 2022-02-22 11:12 | XMS_ITS | Encounter Summary ---
:1960 Author Organization [facility] Address [address] [place] [address] Care Team Providers Name Role Phone Unavailable Primary Care Provider Unavailable Encounter Details Date Type Department Care Team Description 12/12/2009 Hospital Encounter HX [facility] INPT/OBSRV Andrew Guzmán M.D. [address] [facility] [address] [facility] [address] [place] [address] (Wo rk) Social History Tobacco [...] you attend congregation or Patient refused 2021 adventist services? 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
--- OUTSIDE RECORDS SUMMARY | 2022-02-22 11:12 | XMS_ITS | Encounter Summary ---
:1960 Author Organization [facility] Address [address] [place] [address] Care Team Providers Name Role Phone Unavailable Primary Care Provider Unavailable Encounter Details Date Type Department Care Team Description 02/15/2011 Hospital Encounter HX [facility] July Arambula, ANA, C.N.P., D.N.P. [address], [place] [phone] (Wo rk) Social History [...] you attend sikh or Patient refused 2021 yarsani services? 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 Show up: 02/18/2011 18:42:00 CDT Subject: Results Notification Actions: Notify patient of results Due Date/Time: 02/18/2011 18:42:00 CDT Source: [facility] POWERCHART Document Id: [id number] Electronically signed by Conversion, [facility] Grinder Set Up Operator Jig [id number] at 10/20/2016 2:57 PM CDT documented in this encounter Plan of Treatment Not on filedocumented as of this encounter Visit Diagnoses Not on filedocumented in this encounter
--- OUTSIDE RECORDS SUMMARY | 2022-02-22 11:12 | XMS_ITS | Encounter Summary ---
:1960 Author Organization [facility] Address [address] [place] [address] Care Team Providers Name Role Phone Unavailable Primary Care Provider Unavailable Encounter Details Date Type Department Care Team Description 04/06/2007 Hospital Encounter [facility] INPT/OBSRV José Miguel Vásquez M.D. 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
--- OUTSIDE RECORDS SUMMARY | 2022-02-22 11:12 | XMS_ITS | Encounter Summary ---
:1960 Author Organization [facility] Address [address] [place] [address] Care Team Providers Name Role Phone Unavailable Primary Care Provider Unavailable Encounter Details Date Type Department Care Team Description 04/15/2007 Hospital Encounter [facility]X [facility] INPT/OBSRV José Miguel Vásquez M.D. [address] [place] [address] (Wo rk) Social History Tobacco Use Types [...] you attend gnosticist or Patient refused 2021 protestant services? 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
--- OUTSIDE RECORDS SUMMARY | 2022-02-22 11:12 | XMS_ITS | Encounter Summary ---
:1960 Author Organization [facility] Address [address] [place] [address] Care Team Providers Name Role Phone Unavailable Primary Care Provider Unavailable Encounter Details Date Type Department Care Team Description 08/08/2009 Hospital Encounter HX [facility] CAM INPT/OBSRV Darya Mijares M.D. [address] [place] [address] (Wo rk) Social History Tobacco [...] you attend catholic or Patient refused 2021 buddhism services? 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
--- OUTSIDE RECORDS SUMMARY | 2022-02-22 11:12 | XMS_ITS | Encounter Summary ---
:[address] [facility] Address [address] [place] [address] Care Team Providers Name Role Phone Unavailable Primary Care Provider Unavailable Encounter Details Date Type Department Care Team Description 08/10/2009 Hospital Encounter [facility] INPT/OBSRV Lolly Shea P.A.-C. [address] [place] [address] (Wo rk) Social History Tobacco [...] you attend episcopalian or Patient refused 2021 mormonism services? 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
--- OUTSIDE RECORDS SUMMARY | 2022-02-22 11:12 | XMS_ITS | Encounter Summary ---
:1960 Author Organization [facility] Address [address] [place] [address] Care Team Providers Name Role Phone Unavailable Primary Care Provider Unavailable Encounter Details Date Type Department Care Team Description 08/08/2009 Hospital Encounter HX NO MAPPING Noe Mijares M.D. [address] [place], [place] [address] (Wo rk) Social History [...] you attend anabaptism or Patient refused 2021 buddhism services? 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
--- OUTSIDE RECORDS SUMMARY | 2022-02-22 11:12 | XMS_ITS | Encounter Summary ---
:1960 Author Organization [facility] Address [address] [place] [address] Care Team Providers Name Role Phone Unavailable Primary Care Provider Unavailable Encounter Details Date Type Department Care Team Description 08/08/2009 Hospital Encounter [facility] INPT/OBSRV José Miguel Vásquez M.D. [address] [place] [address] (Wo rk) Social History Tobacco Use Types [...] you attend rastafari or Patient refused 2021 tenriism services? 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
--- OUTSIDE RECORDS SUMMARY | 2022-02-22 11:12 | XMS_ITS | Encounter Summary ---
:1960 Author Organization [facility] Address [address] [place] [address] Care Team Providers Name Role Phone Unavailable Primary Care Provider Unavailable Encounter Details Date Type Department Care Team Description 09/01/2009 Hospital Encounter [facility] INPT/OBSRV Andrew Guzmán M.D. [address] [facility] [address] [place] [address] (Wo rk) Social History Tobacco [...] you attend spiritism or Patient refused 2021 islam services? 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
--- OUTSIDE RECORDS SUMMARY | 2022-02-22 11:12 | XMS_ITS | Encounter Summary ---
:1960 Author Organization [facility] Address [address] [place] [address] Care Team Providers Name Role Phone Unavailable [...] you attend baptism or Patient refused 2021 yarsani services? Do [...] at Date Recorded Male 06/23/2021 7:46 PM [place] documented as of this encounter Plan of Treatment Not on filedocumented as of this encounter Visit Diagnoses Not on filedocumented in this encounter
--- OUTSIDE RECORDS SUMMARY | 2022-02-22 11:12 | XMS_ITS | Encounter Summary ---
:1960 Author Organization [facility] Address [address] [place] [address] Care Team Providers Name Role Phone Unavailable Primary Care Provider Unavailable Encounter Details Date Type Department Care Team Description 10/24/2009 Hospital Encounter HX [facility] CAM INPT/OBSRV Darya Mijares M.D. [address] [place] [address] (Wo rk) Social History Tobacco [...] you attend judaism or Patient refused 2021 temple services? 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
--- OUTSIDE RECORDS SUMMARY | 2022-02-22 11:12 | XMS_ITS | Encounter Summary ---
:1960 Author Organization [facility] Address [address] [place] [address] Care Team Providers Name Role Phone Unavailable Primary Care Provider Unavailable Encounter Details Date Type Department Care Team Description 02/24/2011 - Hospital Encounter HX [facility] Roel Locke, 02/27/2011 PAWAN Campbell [address] [place], [place] [address] (Wo rk) Social History Tobacco [...] you attend anabaptist or Patient refused 2021 jehovah's witness services? 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 documented as of this encounter Medications [...] Prep Complete: NA Jewelry/Piercing Removed: NA Makeup/Nail Japanese Removed: NA Oral Hygiene: Yes Preop Scrub AM of Surgery: NA Preop Scrub Night Prior to Surgery: NA Prosthesis Removed: NA Surgical Prep Verified: NA Tampon Removed: NA Wearing Patient Gown: Yes KARLY ARRIAZA RN - 02/27/2011 8:42 CDT Patient Rights Grid Blood Consent Signed: NA Surgical/Procedure Consent Signed: Yes KARLY ARRIAZA RN - 02/27/2011 8:42 CDT Family Location: [id number] [place] KARLY ARRIAZA RN - 02/27/2011 8:42 [...] ARRIAZA RN - 02/27/2011 8:42 CDT Source: [employer] Document Id: [id number] CDT!91 documented in this encounter Nursing Notes Karly Arriaza R.N. - 02/27/2011 8:47 AM CDT Day Surgery Admission History/Asmt Adult Day Surgery Admission History/Asmt Adult Entered On: 02/27/2011 8:50 CDT Performed On: 02/27/2011 8:47 CDT by KARLY ARRIAZA RN General Info Mode of Arrival: Ambulatory Accompanied By: Alone Chief Complaint: heartburn Preferred Communication Mode: Verbal Information Given By: Patient Languages: Arabic KARLY ARRIAZA RN - 02/27/2011 8:47 CDT [...] Assistance: None Living Situation: Home with family shelter Equipment: None Sensory Deficits: None Mobility Assistance [...] CDT Discharge To, Anticipated: Home with family shelter Treatments, Anticipated: None Home Equipment, Anticipated: None [...] Skin Integrity: Not intact Mucous Membrane Color: [place] Mucous Membrane Description: Moist Skin Color: Normal for ethnicity Skin Description: Moist Skin Temperature: Warm KARLY ARRIAZA RN - 02/27/2011 8:47 CDT Source: [employer] Document Id: [id number] CDT!118 documented in this encounter OR Notes Op Note - Roel Tompkins M.D. - 02/27/2011 12:00 AM CDT [id number] Preoperative Diagnosis: Refractory GERD. Postoperative Diagnosis: Esophagitis. Procedure Performed: EGD with biopsies. Surgeon: Dr. Roel Tompkins. Anesthesia: MAC. Indications: Fcqvt-[id number]-nsgi-old male with GERD, sometimes breaking through on [...] thereafter induced under deep sedation by the painter spray. The video gastroscope was inserted and advanced [...] TOMPKINS MD On: 03/03/2011 05:07 PM Source: [facility] MHSDOLBEYNONNIKOLASSYS Document Id: [id number] documented in this encounter Miscellaneous Notes Miscellaneous - Roel Tompkins M.D. - 03/05/2011 8:14 PM CDT Results Notification From: ROEL TOMPKINS MD To: KARLY ARRIAZA Sent: 03/05/2011 20:14:50 CDT ! Show up: 03/05/2011 20:12:00 CDT Subject: Results Notification Actions: Notify patient of results Due Date/Time: 03/05/2011 20:12:00 CDT Source: [facility] [employer] Document Id: [id number] Miscellaneous - Karly Arriaza, R.N. - 02/27/2011 10:34 AM CDT Ambulatory Patient Summary [address] [address] Visit Information Name: HUSSEIN WHITTAKER Current Date: 02/27/2011 10:34:14 Primary Care Provider: [facility] Your Medications Here is a list of [...] CERNA, Lester Lua Your Goals/Additional instructions: Source: [facility] POWERCHART Document Id: [id number] Miscellaneous - Karly Arriaza RFarshadN. - 02/27/2011 10:34 AM CDT Ambulatory Depart Summary [address] [place] [address] Visit Information Name: HUSSEIN WHITTAKER Current Date: 02/27/2011 10:34:13 Primary Care Provider: [facility] HUSSEIN WHITTAKER has been given the following [...] Oral once a day Additional Information: Source: [facility] POWERCHART Document Id: [id number] Miscellaneous - Karly Arriaza R.N. - 02/27/2011 [...] Cardiovascular Heart Rhythm: Regular Nail Bed Color: [place] Edema: None KARLY ARRIAZA RN - 02/27/2011 10:12 CDT Respiratory Anesthesia Type: MAC Airway Type: None Respiratory Pattern: Regular Respirations: Unlabored All Lobes Breath Sounds: Clear KARLY ARRIAZA RN - 02/27/2011 10:12 CDT GI/ Nausea Symptoms: No Passing Flatus: No KARLY ARRIAZA RN - 02/27/2011 10:12 CDT Integumentary Integumentary Patient Stated Symptoms: None Skin Turgor: Elastic Skin Integrity: Intact Mucous Membrane Color: [place] Mucous Membrane Description: Moist Skin Color: Normal [...] ARRIAZA RN - 02/27/2011 10:12 CDT Source: [employer] Document Id: [id number] CDT!118 Miscellaneous - Karly Arriaza, R.N. - [...] Cardiovascular Heart Rhythm: Regular Nail Bed Color: [place] Edema: None Capillary Refill: Less than 2 [...] Skin Integrity: Not intact Mucous Membrane Color: [place] Mucous Membrane Description: Moist Skin Color: Normal [...] ARRIAZA RN - 02/27/2011 9:52 CDT Source: [employer] Document Id: [id number] CDT!99 documented in this encounter Plan of Treatment Not on filedocumented as of this encounter Procedures Procedure Name Priority Date/Time Associated Diagnosis Comme nts SURG [facility], [facility] Routine 02/27/2011 9:40 AM Resul ts for this , WET [facility] CDT procedure ar e in 5206 the results section. SURGICAL PATHOLOGY Routine 02/27/2011 9:40 AM Res ults for this CDT procedure are i n the results section. documented in this encounter Results Pathology Surgical Pathology, [facility] (02/27/2011 9:40 AM CDT) [facility] Method Time Signature HXSurg IV [id number] POWERCHART [facility] HXSurg IV See Comment POWERCHART [facility] Comment: RESULT: Roel Tompkins M.D. HXSurg IV [facility] See Comment POWERCHA RT Comment: [address] [address] SLIDE DISPOSITION: HXSurg IV [facility] See Comment POWER CHART Comment: [id number] A1 A. ?? Received in formalin, labeled with the patient's name and and lab eled as distal esophageal biopsy, are three pale dukes-translucent irregular soft tissues, ranging from 0.3-0.5 cm in greatest dime nsion. The specimens are submitted en toto in cassette A1. [place] by DIMITRI. Part A: ??Esophagus 1 Distal esophageal biopsy XRSR Path [facility] See Comment POWER CHART Comment: A. ??Esophagus, distal, biopsy: ??[place] esophageal mucosa with occasional eosinophils, consistent with reflux. [facility] See Comment POWER CHART Comment: RESULT: 03/01/2011 13:48 Interpreted by: Terese Benz M.D. Report electronically signed by Terese andre M.D. Transcribed by: [email or web address] 03/01/2011 11:58:4 8 Test Performed by: [facility] Dpt of Lab Med and Pathology [address] [place] [address] Die Engraving Supervisor: Jimi ludwig III, M.D. Specimen (Source) Anatomical Collection Method Collection Time Re ceived Time Location / / Volume Laterality Tissue 02/27/2011 9:40 AM CDT Roel Tompkins M.D. LAB SURG PATH ORDERABLES Performing Organization Address City/State/ZIP Code Phon e Number POWERCHART HX Surg Path, Level Vi, Wet [facility] 8485 (02/27/2011 9:40 AM CDT) [facility] gist Method Time Signature HX Surg [id number] POWERCHART [facility] HX Surg See Comment POWERCHART [facility] Comment: RESULT: Roel Tompkins M.D. HX Surg [facility] See Comment POWERCH ART Comment: [address] [address] SLIDE DISPOSITION: HX Surg [facility] See Comment BERNARD RCHART Comment: [id number] A1 A. ?? Received in formalin, labeled with the patient's name and and lab eled as distal esophageal biopsy, are three pale dukes-translucent irregular soft tissues, ranging from 0.3-0.5 cm in greatest dime nsion. The specimens are submitted en toto in cassette A1. Saraie d by DIMITRI. Part A: ??Esophagus 1 Distal esophageal biopsy XRSR Path HX Surg [facility] See Comment BERNARD RCHART Comment: A. ??Esophagus, distal, biopsy: ??[place] esophageal mucosa with occasional eosinophils, consistent with reflux. Signing Pathologist: See Comment POWERCH ART Comment: RESULT: 03/01/2011 13:48 Interpreted by: Terese Benz M.D. Report electronically signed by Terese andre M.D. Transcribed by: [email or web address] 03/01/2011 11:58:4 8 Test Performed by: [facility] Dpt of Lab Med and Pathology [address] [place] [address] Die Engraving Supervisor: Jimi ludwig III, M.D. Test Performed by: [facility] Dpt of Lab Med and Pathology [address] [place] [address] Die Engraving Supervisor: Jimi ludwig III, M.D. Specimen Anatomical Collection Method Collection Time Receive d Time (Source) Location / / Volume Laterality Tissue 02/27/2011 9:40 AM 1 6:20 CDT AM CDT Historical Provider LAB HISTORICAL ORDERS Performing Organization Address City/State/ZIP Code Phon e Number POWERCHART documented in this encounter Visit Diagnoses Not on filedocumented in this encounter
--- OUTSIDE RECORDS SUMMARY | 2022-02-22 11:12 | XMS_ITS | Encounter Summary ---
:1960 Author Organization [facility] Address [address] [place] [address] Care Team Providers Name Role Phone Unavailable Primary Care Provider Unavailable Encounter Details Date Type Department Care Team Description 08/22/[address] [facility] INPT/OBSRV Daphne Colvin PFarshadA.TeriC. Social History [...] you attend holiness or Patient refused 2021 roman catholic services? 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
--- OUTSIDE RECORDS SUMMARY | 2022-02-22 11:12 | XMS_ITS | Encounter Summary ---
:1960 Author Organization [facility] Address [address] [place] [address] Care Team Providers Name Role Phone Unavailable Primary Care Provider Unavailable Encounter Details Date Type Department Care Team Description 05/02/2009 Hospital Encounter HX NO MAPPING Noe Mijares M.D. [address] [place], [place] [address] (Wo rk) Social History [...] you attend scientology or Patient refused 2021 faith services? 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
--- OUTSIDE RECORDS SUMMARY | 2022-02-22 11:12 | XMS_ITS | Encounter Summary ---
:1960 Author Organization [facility] Address [address] [place] [address] Care Team Providers Name Role Phone Unavailable Primary Care Provider Unavailable Encounter Details Date Type Department Care Team Description 05/02/2009 Hospital Encounter HX NO MAPPING Noe Mijares M.D. [address] [place], [place] [address] (Wo rk) Social History [...] you attend mormonism or Patient refused 2021 baptist services? 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
--- OUTSIDE RECORDS SUMMARY | 2022-02-22 11:12 | XMS_ITS | Encounter Summary ---
:1960 Author Organization [facility] Address [address] [place] [address] Care Team Providers Name Role Phone Unavailable Primary Care Provider Unavailable Encounter Details Date Type Department Care Team Description 02/12/2011 Hospital Encounter HX [facility] July Arambula, ANA, C.N.P., D. N.P. [address] [place] [address] (Wo rk) Social History Tobacco [...] you attend mu-ism or Patient refused 2021 episcopalian services? 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 0 01/1804/13/2021 documented as of this encounter H&P Notes July Arambula D.N.P., C.N.P. - 02/12/2011 12:00 AM CDT [id number] CHIEF COMPLAINT/REASON FOR VISIT DOT physical examination. [...] that he has not used anything else qwmg-dvr-rewrmul to help with the symptoms and also reports that he is aware that he is due for a routine blood screening including cholesterol and a PSA. PAST MEDICAL/SURGICAL HISTORY Reviewed. Please see chart. CURRENT MEDICATIONS Reviewed. Please see chart. ALLERGIES Reviewed. Please see chart. PHYSICAL EXAMINATION OBJECTIVE: Patient is alert/oriented x 3. HEAD: Normocephalic/atraumatic. PUPILS: [place]. OROPHARYNX: [place] and moist. TMs: Bilateral TMs are clear, [...] I will plan on contacting him at [phone] regarding his laboratory results. We will have [...] DNP, FNP On: 02/17/2011 02:02 PM Source: [facility] MHSDOLBEYNONRADSYS Document Id: [id number] documented in this encounter Miscellaneous Notes Miscellaneous - July Arambula D.N.P., C.N.P. - 02/12/2011 7:01 PM CDT Ambulatory Patient Summary [id number] [place] [address] Visit Information Name: PILO HERNANDEZ Current Date: 02/12/2011 19:01:47 Primary Care Provider: JULY ARAMBULA [facility], BUSINESS INTELLIGENCE CONSULTANT Your Medications Here is a list of [...] Goals/Additional instructions: Source: [facility] Document Id: [id number] Electronically signed by Conversion, [facility] [place] Stayer Machine Operator [id number] at 10/20/2016 2:57 PM CDT Miscellaneous - July Arambula D.N.P., C.N.P. - 02/12/2011 7:01 PM CDT Ambulatory Depart Summary [address] [address] Visit Information Name: PILO HERNANDEZ Current Date: 02/12/2011 19:01:47 Primary Care Provider: JULY ARAMBULA DNP, BUSINESS INTELLIGENCE CONSULTANT PILO HERNANDEZ has been given the following [...] to the patient and/or family, guardian/caregiver. Source: [facility] Document Id: [id number] Electronically signed by Conversion, [facility] [place] Stayer Machine Operator [id number] at 10/20/2016 2:57 PM CDT Miscellaneous - July Armabula D.N.Carlitos., C.N.P. - 02/12/2011 6:54 PM CDT Obstructive Sleep Apnea Obstructive Sleep Apnea Entered On: 02/12/2011 18:56 CDT Performed On: 02/12/2011 18:54 CDT by JULY ARAMBULA DNP [facility] BALDO Screening Known Obstructive Sleep Apnea: No [...] DNP, FNP - 02/12/2011 18:54 CDT Source: [facility] [employer] Document Id: [id number] CDT!12 Miscellaneous - Christian Oconnor LFarshadPFarshadN. - [...] OCONNOR LPN - 02/12/2011 18:12 CDT Source: [facility] [employer] Document Id: [id number] CDT!26 Miscellaneous - Christian Oconnor LFarshadP.NFarshad - 02/12/2011 6:06 PM CDT Adult Filbert Grower Intake/History Adult Filbert Grower Intake/History Entered On: 02/12/2011 18:12 CDT Performed [...] LPN; Reviewed Date: 02/11/2011 10:38 CDT Source: [employer] Document Id: [id number] CDT!34 Miscellaneous - Christian Oconnor L.P.N. - 02/11/2011 10:42 AM CDT Adult Filbert Grower Intake/History Adult Filbert Grower Intake/History Entered On: 02/11/2011 10:44 CDT Performed [...] LPN; Reviewed Date: 02/11/2011 10:38 CDT Source: [employer] Document Id: [id number] CDT!10 documented in this encounter Plan of Treatment Not on filedocumented as of this encounter Visit Diagnoses Not on filedocumented in this encounter
--- OUTSIDE RECORDS SUMMARY | 2022-02-22 11:12 | XMS_ITS | Encounter Summary ---
:1960 Author Organization [facility] Address [address] [place] [address] Care Team Providers Name Role Phone Unavailable Primary Care Provider Unavailable Encounter Details Date Type Department Care Team Description 12/12/2009 Hospital Encounter [facility] INPT[facility]OBSRV Kristi Herring M.D. Social History Tobacco [...] attend latter day or Patient refused 2021 yarsanism services? 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
--- OUTSIDE RECORDS SUMMARY | 2022-02-22 11:12 | XMS_ITS | Encounter Summary ---
:1960 Author Organization [facility] Address [address] [place] [address] Care Team Providers Name Role Phone Unavailable Primary Care Provider Unavailable Encounter Details Date Type Department Care Team Description 02/10/2009 Hospital Encounter [facility] INPT[facility]OBSRV Lolly Shea P.A.-C. [address] [place] [address] (Wo rk) Social History Tobacco [...] you attend bahai or Patient refused 2021 taoist services? 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
--- OUTSIDE RECORDS SUMMARY | 2022-02-22 11:12 | XMS_ITS | Encounter Summary ---
:1960 Author Organization [facility] Address [address] [place] [address] Care Team Providers Name Role Phone Unavailable Primary Care Provider Unavailable Encounter Details Date Type Department Care Team Description 02/23/2007 Hospital Encounter [facility]X [facility] INPT/OBSRV José Miguel Vásquez M.D. [address] [place] [address] (Wo rk) Social History Tobacco Use Types [...] you attend rastafari or Patient refused 2021 nondenominational services? 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
--- OUTSIDE RECORDS SUMMARY | 2022-02-22 11:12 | XMS_ITS | Encounter Summary ---
:1960 Author Organization [facility] Address [address] [place] [address] Care Team Providers Name Role Phone Unavailable [...] you attend caodaism or Patient refused 2021 presybeterian services? Do [...] Date Recorded Male 06/23/2021 7:46 PM CUSTOM BOW MAKER documented as of this encounter Plan [...] Volume Narrative IIMS - 07/21/2019 4:04 PM CUSTOM BOW MAKER This order has been created and auto-finalized [...]
--- OUTSIDE RECORDS SUMMARY | 2022-02-22 11:12 | XMS_ITS | Encounter Summary ---
:1960 Author Organization [facility] Address [address] [place] [address] Care Team Providers Name Role Phone Unavailable [...] you attend yarsanism or Patient refused 2021 orthodoxy services? 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
--- OUTSIDE RECORDS SUMMARY | 2022-02-22 11:12 | XMS_ITS | Encounter Summary ---
:1960 Author Organization [facility] Address [address] [place] [address] Care Team Providers Name Role Phone Unavailable Primary Care Provider Unavailable Encounter Details Date Type Department Care Team Description 03/15/2009 Hospital Encounter [facility]X [facility] INPT/OBSRV José Miguel Vásquez M.D. [address] [place] [address] (Wo rk) Social History Tobacco Use Types [...] you attend nondenominational or Patient refused 2021 amish services? 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
--- OUTSIDE RECORDS SUMMARY | 2022-02-22 11:12 | XMS_ITS | Encounter Summary ---
:1960 Author Organization [facility] Address [address] [place] [address] Care Team Providers Name Role Phone Unavailable Primary Care Provider Unavailable Encounter Details Date Type Department Care Team Description 07/26/2009 Hospital Encounter HX [facility] INPT/OBSRV José Miguel Vásquez M.D. [address] [place] [phone] (Wo rk) Social History Tobacco Use Types [...] you attend anabaptism or Patient refused 2021 islam services? 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
--- OUTSIDE RECORDS SUMMARY | 2022-02-22 11:14 | XMS_ITS | Encounter Summary ---
:1960 Author Organization [facility] Address [address] [place] [address] Care Team Providers Name Role Phone Racheal Vásquez MD Primary Care Provider Reason for Visit Reason Comments Blood Pressure Check Encounter Details Date Type Department Care Team Description 05/02/2021 Clinical Support Arun Garcia [address] [place] [address] Social History Tobacco Use Types Packs/Day Years Used Date Never Smoker Smokeless Tobacco: Never Used Alcohol Use Standard Drinks/Week Comments Yes 2 (1 standard drink = 0.6 oz pure alcoho l) Sex Assigned at Date Recorded Not on file documented as of this encounter Last Filed Vital Signs Vital Sign Reading Time Taken Comments Blood Pressure 102/72 05/02/2021 3:30 PM CONSUMER SAFETY OFFICER Pulse 86 05/02/2021 3:30 PM CONSUMER SAFETY OFFICER Temperature - - Respiratory Rate - - [...] Is this possible. Pharmacy: [facility] UMER SAFETY OFFICER Racheal Vásquez MD - 05/02/2021 3:20 PM CST Let Ray know this his BP is very good and I have renewed his Rx's for his BP meds. I also renewed his Rx for Prilosec if he needs this as well. If not he does not need to pick it up UMER SAFETY OFFICER Shannan Santana RN - 05/02/2021 3:20 PM CST LMTC UMER SAFETY OFFICER documented in this encounter Plan of Treatment Not on filedocumented as of this encounter Visit Diagnoses Not on filedocumented in this encounter Care Teams Bottle Sorter Relationship Specialty Start Date End Date Racheal Vásquez MD PCP - General Family Medicine 04/05/[address] [place] [address] documented as of this encounter
--- OUTSIDE RECORDS SUMMARY | 2022-02-22 11:14 | XMS_ITS | Encounter Summary ---
:1960 Author Organization [facility] Address [address] [place] [address] Care Team Providers Name Role Phone Racheal Vásquez MD Primary Care Provider Reason for Referral Consultation (Routine) - Authorized Specialty Diagnoses / Procedures Referred By Contact Refer red To Contact Orthopedic Surgery Diagnoses Other secondary osteoarthritis of left knee Eliceo Damon [facility] MD [address] [place] [address] [place] [address] Referral ID Status Reason Start Expiration Visits Visits Date Date Requested Authorized [id number] Authorized Specialty 06/05/2021 06/05/2022 1 1 Services Required OR CIRCULAR GLASS CUTTER Reason for Visit Reason Comments Knee Pain left Consultation (Routine) - Closed Specialty Diagnoses / Procedures Referred By Contact Refer red To Contact Sports Medicine Diagnoses Contusion of left knee, initial encounter Cheryl Jean, CADDY MASTER, RESIDENTIAL APPLIANCE REPAIR TECHNICIAN [address] [place] [address] Referral ID Status Reason Start Date Expiration Date Visits V isits Requested Authorized [id number] Closed Specialty 05/30/2021 11/26/2021 1 1 Services Required Encounter Details Date Type Department Care Team Description 06/05/2021 Office Visit Eliceo Adams Other secondary [address] [facility] MD [place] [address] [address] [facility] knee (Primary Dx) [phone] [place] [address] Social History Tobacco Use Types Packs/Day Years Used Date Never Smoker Smokeless Tobacco: Never Used Alcohol Use Standard Drinks/Week Comments Yes 2 (1 standard drink = 0.6 oz pure alcoho l) Sex Assigned at Date Recorded Not on file documented as of this encounter Last Filed Vital Signs Vital Sign Reading Time Taken Comments Blood Pressure 121/75 06/05/2021 4:15 PM OVAL OR CIRCULAR GLASS CUTTER Pulse - - Temperature - - [...] partial meniscectomy of the left knee at [facility] approximately 8 years ago, this was the [...] Jean for the referral to sports medicine. OR CIRCULAR GLASS CUTTER documented in this encounter Progress Notes Eliceo Damon MD - 06/05/2021 4:00 PM CST Subjective Patient ID: Hussein Whittaker is a 60 y.o. male. No chief complaint on file. HPI This is a 60 year old right hand dominant male who presents today for left knee pain. He was referred here by Cheryl Hak, CADDY MASTER, RESIDENTIAL APPLIANCE REPAIR TECHNICIAN. He works at [employer]. This is a work comp injury. He [...] file. Allergies: Ibuprofen and Nyquil severe cold-flu [lozimitwt-kppnfxxufe-ug-apap] Social History: Social History Occupational History ??? [...] Reading Date Result Priority Cyndi Cardenas MD [phone] 05/30/2021 Narrative & Impression INDICATION: left knee [...] partial meniscectomy of the left knee at [facility] approximately 8 years ago, this was the [...] therefore may contain errors that went unnoticed. OR CIRCULAR GLASS CUTTER Cheryl Jean APRN, CNP - 06/05/2021 4:00 PM CST Reviewed OR CIRCULAR GLASS CUTTER documented in this encounter Plan of Treatment Scheduled Referrals Name Type Priority Associated Diagnoses Order S chedule Ambulatory referral Outpatient Referral Routine Other secondar y Ordered: to Orthopedic osteoarthritis of left 05/19 Surgery knee documented as of this encounter Visit Diagnoses Diagnosis Other secondary osteoarthritis of left k nee - Primary documented in this encounter Care Teams Tender Labor Relationship Specialty Start Date End Date Racheal Vásquez MD PCP - General Family Medicine 04/05/[address] [place] [address] documented as of this encounter
--- OUTSIDE RECORDS SUMMARY | 2022-02-22 11:14 | XMS_ITS | Encounter Summary ---
:1960 Author Organization [facility] Address [address] [place] [address] Care Team Providers Name Role Phone Racheal Vásquez MD Primary Care Provider Encounter Details Date Type Department Care Team Description 05/30/2021 Ancillary Procedure Arun Garcia Radiolo gy [address] [place] [phone] Social History Tobacco Use Types [...] Contusion of left Results for this LEFT CLOTH SHRINKING MACHINE OPERATOR knee, initial procedure are in encounter the results section. documented in this encounter Results X-ray knee 4+ views left (05/30/2021 2:10 PM CLOTH SHRINKING MACHINE OPERATOR) Anatomical Region Laterality Modality Lower Extremities, Knee Left Radiographic Denisse ging Specimen (Source) Anatomical Collection Method Collection Time Re ceived Time Location / / Volume Laterality 05/30/2021 2:10 PM CLOTH SHRINKING MACHINE OPERATOR Impressions 05/30/2021 2:24 PM CLOTH SHRINKING MACHINE OPERATOR IMPRESSION: KNEE COMPLETE LEFT (MIN 4 VIEWS) [...] or blastic lesion. Narrative 05/30/2021 2:24 PM CLOTH SHRINKING MACHINE OPERATOR INDICATION: left knee pain, contusion 05/30/21 and [...] or lytic or blastic lesion. Cheryl Jean COIL SHAPER, DAY GUARD IMG XR PROCEDURES documented in this encounter Visit Diagnoses Not on filedocumented in this encounter Care Teams Senior Oracle Developer Relationship Specialty Start Date End Date Racheal Vásquez MD PCP - General Family Medicine 04/05/[address] [place] [address] documented as of this encounter
--- OUTSIDE RECORDS SUMMARY | 2022-02-22 11:14 | XMS_ITS | Encounter Summary ---
:1960 Author Organization [facility] Address [address] [place] [address] Care Team Providers Name Role Phone Racheal Vásquez MD Primary Care Provider Encounter Details Date Type Department Care Team Description 05/02/2021 Orders Only [place] Gastroesophageal reflux dise ase without esophagitis (Primary Dx); [address] [facility] [address] [place] Primary hypertension [place], [place] [address] [address] [place] [phone] [place] [address] Social History Tobacco Use Types Packs/Day Years [...] hypertension documented in this encounter Care Teams Navigation Teacher Relationship Specialty Start Date End Date Racheal Vásquez MD PCP - General Family Medicine 04/05/[address] [place] [address] documented as of this encounter
--- OUTSIDE RECORDS SUMMARY | 2022-02-22 11:14 | XMS_ITS | Encounter Summary ---
:1960 Author Organization [facility] Address [address] [place] [address] Care Team Providers Name Role Phone Racheal Vásquez MD Primary Care Provider Reason for Referral Consultation (Routine) - Closed Specialty Diagnoses / Procedures Referred By Contact Refer red To Contact Sports Medicine Diagnoses Contusion of left knee, initial encounter Cheryl Jean APRN, CNP [address] [place] [address] Referral ID Status Reason Start Date Expiration Date Visits V isits Requested Authorized [id number] Closed Specialty 05/30/2021 11/26/2021 1 1 Services Required NCE SHEET ANALYST Reason for Visit Reason Comments W/C DOI 05/30/2021 Left knee Encounter Details Date Type Department Care Team Description 05/30/2021 Office Visit Arun Garcia Cheryl Jean, Contusion of left [address] VIRAL PEREZ knee, initial [place] [address] [address] [facility] encounter (Primary Dx) [phone] [place] [address] Social History Tobacco Use Types Packs/Day Years Used Date Never Smoker Smokeless Tobacco: Never Used Alcohol Use Standard Drinks/Week Comments Yes 2 (1 standard drink = 0.6 oz pure alcoho l) Sex Assigned at Date Recorded Not on file documented as of this encounter Last Filed Vital Signs Vital Sign Reading Time Taken Comments Blood Pressure 116/72 05/30/2021 1:34 PM BALANCE SHEET ANALYST Pulse 82 05/30/2021 1:34 PM BALANCE SHEET ANALYST Temperature 36.8 ??C (98.2 ??F) 05/30/2021 1:34 PM BALANCE SHEET ANALYST Respiratory Rate 18 05/30/2021 1:34 PM BALANCE SHEET ANALYST Oxygen Saturation 96% 05/30/2021 1:34 PM BALANCE SHEET ANALYST Inhaled Oxygen Concentration - - Weight 118 kg (261 lb) 05/30/2021 1:34 PM BALANCE SHEET ANALYST Height 182.9 cm (6' 0.01) 05/30/2021 1:34 PM BALANCE SHEET ANALYST Body Mass Index 35.39 05/30/2021 1:34 PM BALANCE SHEET ANALYST documented in this encounter Patient Instructions Patient InstructionsTrick Jean APRN, BOAT FUELER - 05/30/2021 1:40 PM CST Images from [...] are the causes? In most cases, a Sweell cyst results from another knee problem that [...] health care provider. General instructions ?? Take kctq-mic-xcjzipz and prescription medicines only as told by [...] provider. Document Revised: 09/17/2019 Document Reviewed: 09/17/2019 [employer] Patient Education ?? 2020 [employer] NCE SHEET ANALYST documented in this encounter Progress Notes Cheryl Jean APRN, CNP - 05/30/2021 1:40 PM CST Images from the original note were not included. Work Comp - Estab Patient Subjective Patient ID: Hussein Whittaker is a 60 y.o. male. Chief Complaint Patient presents with ??? W/C DOI 05/30/2021 Left knee HPI The patient presents to the [facility] for left knee contusion today; 05/30/21 at work. He tripped at work and landed on his left knee. 1 week ago he also tripped and banged his left knee on the steps. 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 He does have a mild limp, and difficulty with flexion of the knee. Pain 5/10 at present. The following portions of the patient's chart were reviewed in this encounter and updated as appropriate: Tobacco Allergies Meds Med Hx Surg Hx Fam Hx Allergies Allergen Reactions ??? Ibuprofen Hives Green capsules only ??? Nyquil Severe Cold-Flu [Rwctyxfac-Copljumvtj-Xc-Apap] Hives Current Outpatient Medications: ??? hydroCHLOROthiazide (HYDRODIURIL) [...] health care provider. General instructions ?? Take ixhg-adz-lptjfcr and prescription medicines only as told by [...] provider. Document Revised: 09/17/2019 Document Reviewed: 09/17/2019 [employer] Patient Education ?? 2020 [employer] NCE SHEET ANALYST documented in this encounter Plan of [...] Contusion of left Results for this LEFT BALANCE SHEET ANALYST knee, initial procedure are in encounter the results section. documented in this encounter Results X-ray knee 4+ views left (05/30/2021 2:10 PM BALANCE SHEET ANALYST) Anatomical Region Laterality Modality Lower Extremities, Knee Left Radiographic Denisse ging Specimen (Source) Anatomical Collection Method Collection Time Re ceived Time Location / / Volume Laterality 05/30/2021 2:10 PM BALANCE SHEET ANALYST Impressions 05/30/2021 2:24 PM BALANCE SHEET ANALYST IMPRESSION: KNEE COMPLETE LEFT (MIN 4 VIEWS) [...] or blastic lesion. Narrative 05/30/2021 2:24 PM BALANCE SHEET ANALYST INDICATION: left knee pain, contusion 05/30/21 and [...] or lytic or blastic lesion. Cheryl Jean TEXTILE BAG SEWER, BOAT FUELER IMG XR PROCEDURES documented in this encounter Visit Diagnoses Diagnosis Contusion of left knee, initial encounte r - Primary documented in this encounter Care Teams Carpet Jack Relationship Specialty Start Date End Date Racheal Vásquez MD PCP - General Family Medicine 04/05/[address] [place] [address] documented as of this encounter
--- OUTSIDE RECORDS SUMMARY | 2022-02-22 11:14 | XMS_ITS | Encounter Summary ---
:1960 Author Organization [facility] Address [address] [place] [address] Care Team Providers Name Role Phone Racheal Vásquez MD Primary Care Provider Reason for Visit Reason Comments Immunizations Encounter Details Date Type Department Care Team Description 04/05/2019 Immunization [place] Flu vaccine need (Primary [address] Dx) [place], [place] [address] Social History Tobacco Use Types Packs/Day Years Used Date Never Assessed Sex Assigned at Date Recorded Not on file documented as of this encounter Progress Notes Renetta Haji RN - 04/05/2019 4:10 PM CST Tolerated well. No fever. No previous reaction to flu vaccine. TENDER documented in this encounter Plan of Treatment Not on filedocumented as of this encounter Visit Diagnoses Diagnosis Flu vaccine need - Primary documented in this encounter Care Teams Full Service Vending Driver Relationship Specialty Start Date End Date Racheal Vásquez MD PCP - General Family Medicine 04/05/[address] [place] [address] documented as of this encounter
--- OUTSIDE RECORDS SUMMARY | 2022-02-22 11:14 | XMS_ITS | Encounter Summary ---
:[address] [facility] Address [address] [place] [address] Care Team Providers Name Role Phone Racheal Vásquez MD Primary Care Provider Reason for Referral Consultation (Routine) - Authorized Specialty Diagnoses / Procedures Referred By Contact Refer red To Contact Diagnoses Colon cancer screening Racheal Vásquez MD [facility] [address] [place] [address] [place] [address] Phone: Fax: Referral ID Status Reason Start Date Expiration Date Visits V isits Requested Authorized [id number] Authorized 03/05/2021 03/05/2022 1 1 Reason for Visit Reason Comments Hypertension Discuss Colonoscopy Encounter Details Date Type Department Care Team Description 03/05/2021 Office Visit Racheal Bernabe Encounter for wellness exami nation in adult (Primary Dx); [address] [place] Primary hypertension; [place], [place] [address] Colon cancer screening [phone] [place] [address] Social History Tobacco Use Types Packs/Day Years [...] CDT documented in this encounter Progress Notes DFarhsad Vásquez MD - 03/05/2021 3:00 PM CDT [...] 41 years at a company here in [facility] called [employer]. His works at a [employer] in [place] FAMILY HISTORY his father at age 93 [...] time. He prefers having this done in [facility] site. HEMATURIA I actually saw him quite a few years ago when I was working at the other clinic here in [facility] he had a full and complete evaluation [...] solution; Please follow the directions on your [facility] colonoscopy prep sheet. - Ambulatory External [...] lab testing. We will send to the [facility] a request for him to have a [...] colon documented in this encounter Care Teams Level Vial Inspector Relationship Specialty Start Date End Date Racheal Vásquez MD PCP - General Family Medicine 04/05/[address] [place] [address] documented as of this encounter
--- OUTSIDE RECORDS SUMMARY | 2022-02-22 11:14 | XMS_ITS | Encounter Summary ---
:1960 Author Organization [facility] Address [address] [place] [address] Care Team Providers Name Role Phone Racheal Vásquez MD Primary Care Provider Reason for Visit Reason Onset Date Comments Colonoscopy referral status 03/13/2021 Encounter Details Date Type Department Care Team Description 03/13/2021 Telephone Arun Garcia Racheal Vásquez Colonoscopy referral [address] [place] status [place], [place] [address] [phone] [place] [address] Social History Tobacco Use Types Packs/Day Years Used Date Never Smoker Smokeless Tobacco: Never Used Alcohol Use Standard Drinks/Week Comments Yes 2 (1 standard drink = 0.6 oz pure alcoho l) Sex Assigned at Date Recorded Not on file documented as of this encounter Miscellaneous Notes Telephone Encounter - Dian Bacon - 03/14/2021 11:23 AM CDT Referral and face sheet faxed to [place] Colonoscopy scheduling as requested. Telephone Encounter - Katey Botello LPN - 03/14/2021 10:12 AM CDT Please resend to [facility] today. Telephone Encounter - Dian Bacon - 03/13/2021 4:14 PM CDT Pt called stating it has been just over a week and he was told to call if he has not heard anything regarding his colonoscopy referral. Please call Pt at [phone] to advise. documented in this encounter Plan of Treatment Not on filedocumented as of this encounter Visit Diagnoses Not on filedocumented in this encounter Care Teams Formula Weigher Relationship Specialty Start Date End Date Racheal Vásquez MD PCP - General Family Medicine 04/05/19 [address] [place] [address] documented as of this encounter
--- OUTSIDE RECORDS SUMMARY | 2022-02-22 11:14 | XMS_ITS | Encounter Summary ---
:1960 Author Organization [facility] Address [address] [place] [address] Care Team Providers Name Role Phone Racheal Vásquez MD Primary Care Provider Reason for Visit Reason Onset Date Comments HTN registry [id number]/01/2021 Encounter Details Date Type Department Care Team Description 05/01/2021 Telephone Arun Garcia Racheal Vásquez, HTN registry [address] [place], [place] [address] [phone] [place] [address] (Wo rk) Social History Tobacco Use Types [...] Nurse only BP CK scheduled for Friday05/02/21. PERSON Telephone Encounter - Matilde Morel MA - [...] is still seeing Dr. [place] Vásquez. LMTCB PERSON documented in this encounter Plan of Treatment Not on filedocumented as of this encounter Visit Diagnoses Not on filedocumented in this encounter Care Teams Bit And Shank Department Supervisor Relationship Specialty Start Date End Date Racheal Vásquez MD PCP - General Family Medicine 04/05/[address] [place] [address] documented as of this encounter
--- OUTSIDE RECORDS SUMMARY | 2022-02-22 11:14 | XMS_ITS | Clinical Summary ---
:1960 Author Organization [facility] Address [address] [place] [address] Care Team Providers Name Role Phone Racheal Vásquez MD Primary Care Provider Allergies Active Allergy Reactions Severity Noted Date Comments Ibuprofen Hives 04/08/2019 Green capsules only Gxebxnnww-Ajmalevlry-Ja-Apap Hives 03/05/2011 Medications Medication Sig Dispensed Refills [...] Comments Blood Pressure 121/75 06/05/2021 4:15 PM DIRECTOR HOUSEKEEPING Pulse 82 05/30/2021 1:34 PM DIRECTOR HOUSEKEEPING Temperature 36.8 ??C (98.2 ??F) 05/30/2021 1:34 PM DIRECTOR HOUSEKEEPING Respiratory Rate 18 05/30/2021 1:34 PM DIRECTOR HOUSEKEEPING Oxygen Saturation 96% 05/30/2021 1:34 PM DIRECTOR HOUSEKEEPING Inhaled Oxygen Concentration - - Weight 118 kg (261 lb) 05/30/2021 1:34 PM DIRECTOR HOUSEKEEPING Height 182.9 cm (6' 0.01) 05/30/2021 1:34 PM DIRECTOR HOUSEKEEPING Body Mass Index 35.39 05/30/2021 1:34 PM DIRECTOR HOUSEKEEPING Plan of Treatment Health Maintenance Due Date Last Done Comments CT Colonography 1960 FIT-DNA 1960 Sigmoidoscopy 1960 iFOBT 1960 Pneumococcal Vaccine: 1964 Pediatrics (0 to 5 Years) and At-Risk Patients (6 to 64 Years) (1 - PCV) Zoster Vaccines (1 of 2) 1977 COVID-19 Vaccine (4 - Booster 08/09/2021 04/11/2021, for Pfizer series) 09/05/2020, 08/10/2020 Colonoscopy 04/18/2026 04/18/2021 Colorectal Cancer Screening 04/18/2026 HPV Vaccines Aged Out No longer eligib le based on patient's age to complete this to [facility] Insurance Payer Benefit Plan / Subscriber ID Effective Dates Phone Addre ss Type Group TRAVELERS WC TRAVELERS [id number] 2021-[address]se [id number] [place] [address] BCBS OF BCBS OF [id number] 2015-Presen [address] [address] [place] [address] Care Teams Pipe Welder Relationship Specialty Start Date End Date Racheal Vásquez MD PCP - General Family Medicine 04/05/[address] [place] [address]
--- OUTSIDE RECORDS SUMMARY | 2022-02-22 11:14 | XMS_ITS | Encounter Summary ---
:1960 Author Organization [facility] Address [address] [place] [address] Care Team Providers Name Role Phone Racheal Vásquez MD Primary Care Provider Encounter Details Date Type Department Care Team Description 05/03/2021 Telephone [place] Racheal Vásquez MD [address] [place], [place] [address] [place], [place] [phone] (Wo rk) Social History Tobacco Use Types [...] AM CST Left detailed message for patient. C COPYIST Telephone Encounter - Shannan Santana RN - 05/03/2021 8:18 AM CST LMTC C COPYIST Telephone Encounter - Shannan Santana RN - 05/03/2021 8:07 AM CST ----- Message from Racheal Vásquez MD sent at 05/02/2021 4:39 PM MUSIC COPYIST ----- Let Talon know this his BP is very good and I have renewed his Rx's for his BP meds. I also renewed his Rx for Prilosec if he needs this as well. If not he does not need to pick it up ----- Message ----- From: Katey Botello LPN Sent: 05/02/2021 3:33 PM MUSIC COPYIST To: Racheal Vásquez MD C COPYIST documented in this encounter Plan of Treatment Not on filedocumented as of this encounter Visit Diagnoses Not on filedocumented in this encounter Care Teams Psychologist Clinical Relationship Specialty Start Date End Date Racheal Vásquez MD PCP - General Family Medicine 04/05/[address] [place] [address] documented as of this encounter
== END 2022-02-22 11:04 | disposition home or self-care (01) ==
LOC: CT 11:03
PROVIDERS: PCP Nurse Practitioner Family; Visit Provider Nurse Practitioner Family
DX: R93.89 Abnormal findings on diagnostic imaging of other specified body structures (principal); R91.8 Other nonspecific abnormal finding of lung field
CPT/HCPCS: 71250

== ENCOUNTER 2022-12-06 08:27 | Outpatient (CLI) | payer BC, SELFPAY | END 2022-12-06 08:28 | disposition home or self-care (01) | PROVIDERS: PCP Nurse Practitioner Family; Visit Provider Nurse Practitioner Family | DX: I10 Essential (primary) hypertension (principal); K21.9 Gastro-esophageal reflux disease without esophagitis; Z13.6 Encounter for screening for cardiovascular disorders; Z12.5 Encounter for screening for malignant neoplasm of prostate | CPT/HCPCS: 80048; 80061; 84153 ==

== ENCOUNTER 2024-01-13 08:51 | Outpatient (CLI) | payer MEDICARE, SELFPAY ==
--- OUTSIDE RECORDS SUMMARY | 2024-01-13 08:54 | XMS_ITS | Clinical Summary ---
Author Organization [facility] Address [address] [place] [address] Care Team Providers Care Patient Care Secretary Name Role Phone Irwin Mao MD Primary Care Provider Allergies Active Allergy Reactions Criticality Noted Date Comments Ibuprofen Hives 04/08/2019 Green capsules only Zrhrgsdnm-Swkmgdxeix-Rt-Apap Hives 011 Medications Medication Sig Dispensed Refills Start Date End Date Status ketoconazole (NIZORAL) 2 % shampoo 12/22/2020 Active metroNIDAZOLE (METROCREAM) 0.75 % cream 01/25/2021 Active omeprazole (PriLOSEC) [address] capsuleIndications:G astroesophageal reflux disease without esophagitis Take ONE a day for GERD if needed. Do not crush or chew. 90 capsule 1 05/02/2021 Active meloxicam (Mobic) 15 MG tabletIndications:Co ntusion of left knee, initial encounter Take 1 tablet (15 mg total) by mouth 1 (one) time each day 30 tablet 1 05/30/2021 Active lisinopril (ZESTRIL) 20 MG tabletIndications:Pr imary hypertension TAKE 1 TABLET BY MOUTH DAILY FOR BLOOD PRESSURE 90 tablet 1 05/28/2022 Active hydroCHLOROthiazide (HYDRODIURIL) 25 MG tabletIndications:Pr imary hypertension TAKE 1 TABLET BY MOUTH IN THE MORNING FOR BLOOD PRESSURE 90 tablet 1 05/28/2022 Active white petrolatum-mineral oil (LACRI-LUBE) ointment OPHTHalmic ointmentIndications: Viral conjunctivitis of both eyes Apply 1 application to both eyes at bed time 3.5 g 07/09/2023 Active Active Problems Problem Noted Date Diagnosed Date Obesity (BMI 35.0-39.9 without comorbidity) 02/16 Primary hypertension 03/05/2021 Benign essential hematuria 03/05/2021 Benign cyst of left kidney 03/05/2021 Diverticula, intestine 03/05/2021 Gastroesophageal reflux disease without esophagi tis 03/05/2021 Acne rosacea 03/05/2021 Psoriasis 03/05/2021 Hx of skin cancer, basal cell 03/05/2021 Immunizations Name Administration Dates Next Due COVID-19, mRNA, LNP-S, PF, 30mcg/0.3mL dose Pfizer 10/19/2021,04/11/2021 Flu Vaccine 50-64yrs Flublok (Egg Free) 04/05/2019 INFLUENZA QUADRIVALENT MDV (IM) 02/20/2015 Influenza 6mo-64yrs Quad Pre servative Free IM 03/12/2022,02/24/2021,04/05/2019,2017,04/11/2017,03/15/2016,02/20/2015,1 05/29/2013,03/25/2013,03/31/2012, 011,02/10/2009 Influenza, Split Virus, Triv alent, Preservative 03/15/2016,03/31/2012 Influenza, injectable, MDCK, preservative free, quadrivalent, 0.5mL dose (Flucelvax) 02/24/2021 Tdap 02/20/2015 Family History Medical History Relation Comments Heart disease Mother Relation Status Comments Brother 1 Alive Brother 2 Alive Brother 3 Alive Daughter Alive Father Mother Sister 1 Alive Sister 2 Alive Sister 3 Alive Sister 4 Alive Son Alive Social History Tobacco Use Types Packs/Day Years Used Date Smoking Tobacco: Never Smokeless Tobacco: Never Tobacco Cessation:Counseling Given: Not Answered Alcohol Use Standard Drinks/Week Comments Yes 2 (1 standard drink = 0.6 oz pur e alcohol) PHQ-2 Answer Date Recorded PHQ-9 Total Score 0 07/09/2023 Sex and Gender Information Value Date Recorded Sex Assigned at Not on file Gender Identity Not on file Sexual Orientation Not on file Last Filed Vital Signs Vital Sign Reading Time Taken Comments Blood Pressure 138/89 07/09/2023 9:11 AM COMMUNITY HEALTH EDUCATION COORDINATOR Pulse 88 07/09/2023 9:11 AM COMMUNITY HEALTH EDUCATION COORDINATOR Temperature 36.9 ??C (98.5 ??F) 07/09/2023 9:11 AM CS T Respiratory Rate 18 07/09/2023 9:11 AM COMMUNITY HEALTH EDUCATION COORDINATOR Oxygen Saturation 93% 07/09/2023 9:11 AM COMMUNITY HEALTH EDUCATION COORDINATOR Inhaled Oxygen Concentration - - Weight 130 kg (287 lb) 07/09/2023 9:11 AM COMMUNITY HEALTH EDUCATION COORDINATOR Height 182.9 cm (6') 07/09/2023 9:11 AM COMMUNITY HEALTH EDUCATION COORDINATOR Body Mass Index 38.92 07/09/2023 9:11 AM COMMUNITY HEALTH EDUCATION COORDINATOR Plan of Treatment Health Maintenance Due Date Last Done Comments CT Colonography 1960 FIT-DNA 1960 Sigmoidoscopy 1960 iFOBT 1960 Zoster Vaccines (1 of 2) 2008 COVID-19 Vaccine ( - season) 2023 10/19/2021, 04/11/2021, 09/05/2020, Additional history exists Pneumococcal Vaccine: 65+ Years (1 of 1 - PCV) 09/28/2023 Influenza Vaccine (#1) 2024 , 02/24/2021, 02/24/2021, Additional history exists Fall Risk Performed 07/09/2024 07/09/2023 DTaP,Tdap,and Td Vaccines (2 - Td or Tdap) 02/20/2025 02/20/2015 Colonoscopy 04/18/2026 04/18/2021 Colorectal Cancer Screening 04/18/2026 HPV Vaccines Aged Out No longer eligi ble based on patient's age to complete this topic Care Teams Patient Care Secretary Relationship Specialty Start Date End Date Irwin Mao MD [address] [place] [address] PCP - General 03/06/23
== END 2024-01-13 08:52 | disposition home or self-care (01) ==
PROVIDERS: PCP Nurse Practitioner Family; Visit Provider Nurse Practitioner Family
DX: E78.5 Hyperlipidemia, unspecified (principal); I10 Essential (primary) hypertension; Z12.5 Encounter for screening for malignant neoplasm of prostate
CPT/HCPCS: 80053; 80061; 85025; G0103

== ENCOUNTER 2024-06-22 15:23 | Outpatient (CLI) | payer MEDICARE, SELFPAY | END 2024-06-22 15:24 | disposition home or self-care (01) | PROVIDERS: PCP Nurse Practitioner Family; Visit Provider Nurse Practitioner Family | DX: E78.5 Hyperlipidemia, unspecified (principal); I10 Essential (primary) hypertension; F41.9 Anxiety disorder, unspecified; K21.9 Gastro-esophageal reflux disease without esophagitis; M25.511 Pain in right shoulder; Z01.818 Encounter for other preprocedural examination | CPT/HCPCS: 80053; 85025 ==

== ENCOUNTER 2024-06-30 06:43 | Day surgery (SDC) | payer MEDICARE, SELFPAY ==
[2024-06-30] VITALS (12 sets, daily range): BP systolic 104–133; BP diastolic 65–88; PULSE 69–83; RESP 12–18; TEMP 36.1–36.9; O2SAT 89–97; BMI 36.9
[2024-06-30] MEDS: MIDAZOLAM HCL 1 MG/ML inj IVP (06:33)
[2024-06-30] MEDS: fentaNYL 100 MCG/2 ML inj IVP (06:33)
[2024-06-30] MEDS: LACTATED RINGERS 1000 ML 1,000 ML 100 ML IV (06:35)
--- OUTSIDE RECORDS SUMMARY | 2024-06-30 06:45 | XMS_ITS | Clinical Summary ---
Author Organization [facility] er Address [address] [place] [address] Care Team Providers Care Passenger Vessel Chef Name Role Phone Irwin Mao MD Primary Care Provider Allergies Active Allergy Reactions Criticality Noted Date Comments Ibuprofen Hives 04/08/2019 Green capsules only Nysrprkcn-Kjzjyjyibd-Un-Apap Hives 011 Medications ketoconazole (NIZORAL) 2 % shampoo 12/23/19 21 Active metroNIDAZOLE (METROCREAM) 0.75 % cream 01/26/20 21 Active omeprazole (PriLOSEC) [address] capsuleIndications :Gastroesophageal reflux disease without esophagitis Take ONE a day for GERD if needed. Do not crush or chew. 90 capsule 1 05/02/20 21 Active meloxicam (Mobic) 15 MG tabletIndications: Contusion of left knee, initial encounter Take 1 tablet (15 mg total) by mouth 1 (one) time each day 30 tablet 1 05/30/19 22 Active lisinopril (ZESTRIL) 20 MG tabletIndications: Primary hypertension TAKE 1 TABLET BY MOUTH DAILY FOR BLOOD PRESSURE 90 tablet 1 05/28/19 23 Active hydroCHLOROthiazid e (HYDRODIURIL) 25 MG tabletIndications: Primary hypertension TAKE 1 TABLET BY MOUTH IN THE MORNING FOR BLOOD PRESSURE 90 tablet 1 05/28/19 23 Active white petrolatum-mineral oil (LACRI-LUBE) ointment OPHTHalmic ointmentIndication s:Viral conjunctivitis of both eyes Apply 1 application to both eyes at bed time 3.5 g 07/09/19 24 Active Active Problems Problem Noted Date Diagnosed Date Obesity (BMI 35.0-39.9 without comorbidity) 10/1 12/2020 Primary hypertension 03/05/2021 Benign essential hematuria 03/05/2021 [...] Recorded Sex Assigned at Not on file Legal Sex Male 8:03 PM CDT Gender Identity Not on file Sexual Orientation Not on file Last Filed Vital Signs Vital Sign Reading Time Taken Comments Blood Pressure 138/89 07/09/2023 9:11 AM OR NURSE MANAGER Pulse 88 07/09/2023 9:11 AM OR NURSE MANAGER Temperature 36.9 C (98.5 F) 07/09/2023 9:11 AM OR NURSE MANAGER Respiratory Rate 18 07/09/2023 9:11 AM OR NURSE MANAGER Oxygen Saturation 93% 07/09/2023 9:11 AM OR NURSE MANAGER Inhaled Oxygen Concentration - - Weight 130 kg (287 lb) 07/09/2023 9:11 AM OR NURSE MANAGER Height 182.9 cm (6') 07/09/2023 9:11 AM OR NURSE MANAGER Body Mass Index 38.92 07/09/2023 9:11 AM OR NURSE MANAGER Plan of Treatment Health Maintenance Due Date Last Done Comments CT Colonography 1958 FIT-DNA 1958 Sigmoidoscopy 1958 iFOBT 1960 Pneumococcal Vaccine: 50+ Years (1 of 1 - PCV) 2008 Zoster Vaccines (1 of 2) 2008 Fall Risk Performed 07/09/2024 07/09/2023 DTaP,Tdap,and Td Vaccines (2 - Td or Tdap) 02/20/2025 02/20/2015 Colonoscopy 04/18/2026 04/18/2021 Colorectal Cancer Screening 04/18/2026 COVID-19 Vaccine Completed 04/07/2024, 07/2021, 04/11/2021, Additional history exists Influenza Vaccine Completed 04/07/2024, , 02/24/2021, Additional history exists HPV Vaccines Aged Out No longer eligi ble based on patient's age to complete this topic Insurance [facility] [employer] TRAVELERS Care Teams Passenger Vessel Chef Relationship Specialty Start Date End Date Irwin Mao MD [address] [place] [address] PCP - General 03/06/23
[2024-06-30] MEDS: SODIUM CHLORIDE 0.9 % (FLUSH) 10 ML SYRINGE IVF (07:18)
--- NOTE | 2024-06-30 07:55 | SUR.PREOP ---
TIME?OUT:?0750 PT/RN/ERNESTINA?VERIFICATION?OF?SURGICAL?SITE,?PROCEDURE,?AND?CONSENT OBTAINED?PRIOR?TO?INVASIVE?PROCEDURE.right shoulder fly kirk mda pt consent
--- NOTE | 2024-06-30 07:55 | W.PM.H&PU ---
History & Physical Update History & Physical Update H&P Reviewed and patient assessed: No changes noted
[2024-06-30] MEDS: CEFAZOLIN 2 GM in 0.9 % SODIUM CHLORIDE Mini-bag 100 ML IVPB (08:05)
[2024-06-30] MEDS: EPINEPHrine 1 MG in SODIUM CHLORIDE IRRIG SOLUTION 3,000 ML 3001 MG IRRIGATION ×2 (08:23→08:40)
--- NOTE | 2024-06-30 08:38 | W.PM.NB ---
Nerve Block Nerve Block Time Seen by Provider: 07:52 Date Seen: 06/30/24 Type of block requested by surgeon for post-operative analgesia: supraclavicular Side: right Time out performed: Yes Verification of patient name: Yes Verification of date of : Yes Site marking: site marked Name of person performing procedure: Yanick Continuous monitoring Was continuous monitoring of O2 sat, B/P, classroom monitor, recorded every 15 minutes?: Yes Procedure Checklist: sterile prep, needles and gloves Ultrasound guided. Images saved: Yes Medications given in 5ml increments after negative aspiration: Ropivicaine %: 0.5 mL: 20 Needle gauge: 22 Precedex (mcg): 25 Patient tolerated procedure well: Yes Block Charges Block Charge (with Pro Fee): Brachial Plexus Use of Ultrasound Machine for Block: Yes- US Guidance/pain block
--- NOTE | 2024-06-30 08:38 | W.ANESCHARGE ---
Anesthesia Charges Start Date/Time Anesthesia Start Date: 06/30/24 Anesthesia Start Time: 07:57 Stop Date/Time Anesthesia Stop Date: 06/30/24 Anesthesia Stop Time: 09:54 Coding CPT Codes CPT Codes: ANESTH SURGERY OF SHOULDER - 33312 ([id number]) P2 - PATIENT W/MILD SYST DISEASE, QK - TOOL DESIGN CHECKER 2-4 CNCRNT ANES PROC, QX - TAPE TRANSFERRER SVC W/ MD MED DIRECTION
--- NOTE | 2024-06-30 09:06 | SUR.OPER ---
PATIENT QUESTIONS ANSWERED SATISFACTORILY PREOPERATIVELY. PATIENT BROUGHT TO OR #2 PER CART FOLLOWING THE BLOCK. Patient positioned supine on OR #2 bed for the intubation.? Perioperative team wrapped the left arm in a neutral position on the pt. abdomen with the drawsheet. Right arm elevated on an IV pole in a padded strap. Final approval of positioning by surgeon. CONTINUOUS IRRIGATION OF THE LEFT SHOULDER WITH MIXTURE OF 3000 NACL AND 1mg OF EPINEPHRINE DURING PROCEDURE.
--- NOTE | 2024-06-30 09:58 | W.ANESCHARGE ---
Anesthesia Charges Start Date/Time Anesthesia Start Date: 06/30/24 Anesthesia Start Time: 07:57 Stop Date/Time Anesthesia Stop Date: 06/30/24 Anesthesia Stop Time: 09:54 Coding CPT Codes CPT Codes: ANESTH SURGERY OF SHOULDER - 24071 ([id number]) P2 - PATIENT W/MILD SYST DISEASE, QK - REPAIRER SASH AND DOOR 2-4 CNCRNT ANES PROC, QX - DEBURR OPERATOR SVC W/ MD MED DIRECTION
--- NOTE | 2024-06-30 09:59 | PM.ORPRC ---
Procedure Note Date of procedure: 06/30/24 Procedure: PREOPERATIVE DIAGNOSES: 1. Right shoulder rotator cuff tear. 2. Right shoulder long head biceps tendon tear. 3. Right shoulder AC degenerative joint disease, primary, moderate 4. Right shoulder labral tearing. 5. Right shoulder subacromial impingement syndrome. POSTOPERATIVE DIAGNOSES: 1. Right shoulder rotator cuff tear - high-grade partial-thickness supraspinatus 2. Right shoulder AC degenerative joint disease, primary, moderate 3. Right shoulder labral tearing. 4. Right shoulder subacromial impingement syndrome. NAME OF OPERATION: 1. Right shoulder arthroscopic rotator cuff repair - of high-grade partial-thickness supraspinatus 2. Right shoulder arthroscopic distal clavicle excision 3. Right shoulder arthroscopic limited glenohumeral debridement 4. Right shoulder arthroscopic bursectomy, subacromial decompression/partial acromioplasty. SURGEON: Gabriel Dominguez MD CONSULTING SME: Eduin Jorge PA-C. Of note, a skilled volunteer assistant was critical for this case to aide in patient positioning, suture manipulation, arm positioning, instrument positioning, and closure. ANESTHESIA: General plus preoperative supraclavicular block. EBL: 25 mL IMPLANTS: Arthrex 4.75 mm BioComposite SwiveLock suture anchor (x2); Arthrex 5.5 mm BioComposite SwiveLock suture anchor (x2); COMPLICATIONS: None evident INDICATIONS: The patient is a pleasant, 63-year-old male who has experienced right shoulder pain that has been increasing in recent time. Physical exam and imaging were consistent with a rotator cuff tear. Given their findings, as well as the weakness and pain, and inadequate response to nonoperative management, recommendation was made for surgery. FINDINGS: Exam under anesthesia revealed stable shoulder with excellent range of motion. The diagnostic arthroscopy revealed relatively healthy articular cartilage glenohumeral joint. The Subscapularis tendon was healthy with a strong attachment on the lesser tuberosity. The long head of the biceps tendon was intact within the groove and without partial-thickness tearing. There was a type 1 slap tear worthy of minor debridement of the superior labrum. The superior rotator cuff tendon was found to be torn and high-grade partial-thickness manner through majority of the supraspinatus. The labrum was degenerative fraying in the anterior and superior aspects and to a lesser degree in the inferior aspect. No loose bodies were identified within the pouch or subscapularis recess. PROCEDURE: Following a thorough discussion of risks, benefits, and alternatives, consent was obtained and the right shoulder was marked. The patient was brought to the operating room and placed supine on the operating table. Induction of anesthesia was completed after preoperative supraclavicular block was administered in preop holding. Appropriate time out was performed identifying proper patient, site, and procedure. 2 g IV Ancef was administered within 1 hour of incision preoperatively. The right upper extremity was prepped and draped in the appropriate sterile fashion using ChloraPrep prep. This was after the patient was positioned in the beach chair with their head in neutral alignment and all bony prominences well padded. The shoulder was insufflated with 20mL of normal saline via an 18g spinal needle from a posterior approach. An 11 blade skin incision allowed a blunt trochar to be inserted and diagnostic arthroscopy to be performed with the findings as noted above. An anterior portal was established with an outside in technique. This allowed the probe to be inserted and confirm the diagnostic arthroscopic findings. The shaver was then inserted and allowed debridement of the anterior and superior labrum/type 1 slap tear. Following this, the upper border subscapularis was probed and found to be stable. Thereafter, the subacromial space was entered. Here, a complete bursectomy and partial acromioplasty/subacromial decompression was performed with a combination of radiofrequency ablator, the shaver, and a 5.5 mm bone bur. Additionally, distal clavicle excision was performed with the bur. 8 mm of distal clavicle was resected based on the with of our bur. Further inspection of the supraspinatus and infraspinatus rotator cuff was performed. This identified the tear as noted above. The margins of the tear were debrided, and the greater tuberosity was debrided with a combination of the apollo cautery, shaver, and bur on reverse setting. After gentle decortication, a speed bridge configuration with a medial anthony was planned. 2 medial anchors were placed and the sutures were passed through the rotator cuff with a fiber link 4.75 mm knotless FiberTak suture anchors. The knotless suture tails were then retrieved, crossed, and cinched down for the medial anthony purpose. A tail from each of the medial row anchor FiberTapes were then retrieved and brought to a lateral row anchor. Excellent reapproximation of the tissue to the greater tuberosity was achieved with broad footprint compression. The rotator cuff showed excellent reapproximation of the greater tuberosity with good security upon probing. Prior to anchor delivery driver removal, the eyelet sutures were tugged on for each anchor and found that the anchor had excellent stability within the bone. The shoulder was placed through range of motion and found to be stable. The rotator cuff was re-probed and found to be stable. Instruments were removed. Excess fluid was drained, closure performed with 4-0 Monocryl and Steri-Strips. Dressings were applied. Sling was applied. The patient was awoken from anesthesia and transferred to the PACU in stable condition. A skilled volunteer assistant was critical for this case to aid in patient positioning, limb positioning, skill to manipulate arthroscopic instruments and camera, suture management, patient safety, and closure. PLAN: 1. Elbow, forearm, wrist and digit range of motion as tolerated. 2. Encouraged ice. 3. Oxycodone for pain as needed. 4. Sling at all times except for ROM and showering. 5. Follow up with PA visit in 1-2 weeks for wound check. Initiate physical therapy following that visit for passive range of motion. Initiate active assisted range of motion at 4-6 weeks. May do pendulums now.
== END 2024-06-30 11:20 | disposition home or self-care (01) ==
LOC: OR 06:43
PROVIDERS: PCP Nurse Practitioner Family; Visit Provider Orthopaedic Surgery Sports Medicine
PROC: (CPT 29805; principal; 2024-06-30 08:00)
DX: M75.101 Unspecified rotator cuff tear or rupture of right shoulder, not specified as traumatic (principal); S46.111A Strain of muscle, fascia and tendon of long head of biceps, right arm, initial encounter; M19.011 Primary osteoarthritis, right shoulder; S43.431A Superior glenoid labrum lesion of right shoulder, initial encounter; M75.41 Impingement syndrome of right shoulder; G89.18 Other acute postprocedural pain
CPT/HCPCS: 29827; 29826; 29822; 29824; 01630; 64415; 76942; C1713; J0171; J0690; J2250; J2371; J2704; J2795; J3010; J3490; J7120; L3670

== ENCOUNTER 2024-10-29 12:43 | Outpatient (CLI) | payer MEDICARE, SELFPAY | END 2024-10-29 12:44 | disposition home or self-care (01) | LOC: KYNREF 12:45 | PROVIDERS: PCP Nurse Practitioner Family; Visit Provider Nurse Practitioner Family | DX: E78.5 Hyperlipidemia, unspecified (principal) | CPT/HCPCS: 80061 ==

== ENCOUNTER 2025-01-21 12:58 | Outpatient (CLI) | payer MEDICARE, SELFPAY | END 2025-01-21 12:59 | disposition home or self-care (01) | PROVIDERS: PCP Nurse Practitioner Family; Visit Provider Nurse Practitioner Family | DX: Z01.818 Encounter for other preprocedural examination (principal); Z12.5 Encounter for screening for malignant neoplasm of prostate | CPT/HCPCS: 80053; 85025; G0103 ==

== ENCOUNTER 2025-04-07 13:29 | Outpatient (CLI) | payer MEDICARE, SELFPAY | END 2025-04-07 13:30 | disposition home or self-care (01) | PROVIDERS: PCP Nurse Practitioner Family; Visit Provider Nurse Practitioner Family | DX: G25.81 Restless legs syndrome (principal); E78.5 Hyperlipidemia, unspecified | CPT/HCPCS: 82607; 82728; 83735; 85025 ==